=== PATIENT | female | born 1955 | race Caucasian/White ===

== ENCOUNTER → 2022-06-27 | Outpatient (CLI) | payer MEDICARE, OTHER, SELFPAY ==
--- NOTE | 2022-06-27 16:51 | CT_ITS ---
STUDY: LOW DOSE CT LUNG CANCER SCREENING REASON FOR EXAM: Female, 66 years old. HX OF NICOTINE DEPENDENCE -- GAVE PT ORDER TO HOLD ON TO. The patient smoked 1 pack per day for 46 years. COPD. RADIATION DOSAGE (If Supplied By Facility): CTDIvol = ( 1.59 ) mGy, DLP = ( 50.23 ) mGycm TECHNIQUE: No contrast was administered. Low dose technique was utilized (average mAS-38 and kVp 120). 1.25 mm axial source images with a slice interval of 1.25-mm were reconstructed in lung windows. 2.5 mm axial source images with a slice interval of 2.5-mm were reconstructed in lung windows. 5.0 mm axial source images with a slice interval of 5.0-mm were reconstructed in soft tissue windows. COMPARISON: None. NODULES: No suspicious nodules are seen. Emphysema: Hyperinflation. Emphysematous changes more pronounced in the upper lobes. Endobronchial lesion: None Aorta: Atherosclerotic plaque formation of the aorta. CORONARY ARTERIES: Coronary artery calcification is seen. Heart: Unremarkable Pulmonary artery: Unremarkable Mediastinal nodes: Small mediastinal lymph nodes. Other chest and abdominal findings: Unremarkable. CT/Low Dose CT Lung Screening IMPRESSION: Lung-RADS category 2 - Continue annual screening with LDCT in 12 months. IMPORTANT NOTES FOR USE: ACR Lung-RADS Version 1.1 Assessment Categories Release Date: 2018 Category: Coded 0-4 bases on nodule(s) with highest degree of suspicion. Negative screen is defined as categories 1 and 2; a positive screen is defined as categories 3 and 4. Category 3 and 4A nodules that are unchanged on interval CT should be coded as category 2, and individuals returned to screening in 12 months. Category 4X: Category 3 or 4 nodules with additional imaging findings that increase the suspicion of lung cancer, such as spiculation, GGN that doubles in size in 1 year, enlarged lymph notes, etc. Category Modifiers: S (significant finding unrelated to lung cancer) Electronically Signed: Dixon Garcia MD at 11:04 EDT ,
== END | disposition home or self-care (01) ==
LOC: CT 16:49
PROVIDERS: PCP Family Medicine Geriatric Medicine; Visit Provider Internal Medicine Pulmonary Disease
DX: Z87.891 Personal history of nicotine dependence (principal)
CPT/HCPCS: 71271

== ENCOUNTER → 2022-07-28 | Outpatient (CLI) | payer MEDICARE, OTHER, SELFPAY ==
--- NOTE | 2022-07-28 12:45 | STE_ITS ---
Reason For Study: DYSPNEA Stress Results Protocol: [place] Protocol Maximum Predicted HR: 154 bpm Target HR: 131 bpm % Maximum Predicted HR: 92 % DurationHeart Rate Stage (mm:ss) (bpm) BP Comment BASELINE 75 150/94 STAGE 1 3:00 118 140/88 A LITTLE SOB STAGE 2 2:00 142 172/100INCREASED SOB RECOVERY 100 144/96 Stress Duration: 5:00 mm:ss Maximum Stress HR: 142 bpm Baseline Echocardiogram Findings Stress Echo Wall motion Data Resting WM Intermediate WM Stress WM ECHO/Stress Test Echo w/o Contrast Interpretation Summary Exercise stress echo. 66-year-old lady with a history of dyspnea. Resting EKG demonstrates normal sinus rhythm with a rate of 78 bpm normal inter vals are noted. The resting blood pressure is 150/94 mmHg. The patient exercised according to regul ar [place]an protocol for total duration of 5 minutes patient completed 2 minutes into stage II of the Br uce protocol. The maximum heart rate attained was 142 bpm which was 92% of max impacted heart rat e the maximum workload was 7 metabolic equivalents. At rest there were no ST or T wave change s noted to suggest ischemia and at peak exercise upsloping ST changes were noted we did not meet t he criteria for ischemia. No clinical angina was noted the resting blood pressure was 178/82 mm Hg rate-pressure part was 24,200. Stress echocardiogram. The resting echocardiogram demonstrated preserved left v entricular systolic function estimated ejection fraction is 60%. With exercise there was thickening of all herrera and contraction of low ventricular cavity size and peaking of ejection fraction of approximately 75%. No wall motion abnormalities were noted. Conclusion: Exercise stress test with no EKG criteria for ischemia at a moderate workload. Resting and stress echocardiographic images demonstrating preserved ejection fr action and no ischemia noted. Ordering Physician: Miguel Sullivan V Performed By: Aydee Jim RDCS
[2022-07-28 14:35] LABS: Erythrocyte Sedimentation Rate 20 mm/hr (0-30)
[2022-07-28 15:15] LABS: CRP 4.09 mg/L (0.0-3.0); Rheumatoid Factor < 10.0 IU/mL (<15)
[2022-08-01 15:04] LABS: ANTINUCLEAR ANTIBODIES DIRECT Negative (Negative)
== END | disposition home or self-care (01) ==
LOC: CVS 12:43
PROVIDERS: PCP Family Medicine Geriatric Medicine; Visit Provider Internal Medicine Pulmonary Disease
DX: R06.00 Dyspnea, unspecified (principal); J44.9 Chronic obstructive pulmonary disease, unspecified
CPT/HCPCS: 36415; 85652; 86038; 86140; 86431; 93017; 93350

== ENCOUNTER 2022-11-07 12:05 | Emergency (ER) | payer MEDICARE, OTHER, SELFPAY ==
[2022-11-07 12:06] VITALS: BP 106/76; PULSE 100; RESP 20; TEMP 36.1; O2SAT 95
--- NOTE | 2022-11-07 13:22 | RAD_ITS ---
STUDY: X-RAY CHEST REASON FOR EXAM: Female, 66 years old. Cough, congestion, dyspnea, bilateral rales TECHNIQUE: PA and lateral views of the chest. COMPARISON: None. FINDINGS: EKG electrodes are seen. Hyperinflation. Increased markings at the left lung base with an area of confluence. This may represent either linear atelectasis and/or early infiltrate. There is blunting of the left costophrenic angle with mild degree of pleural thickening. Normal size heart. Normal mediastinum and lam. Normal visualized pulmonary arteries. There is atherosclerotic calcification of the aortic arch with tortuosity. There are diffuse degenerative changes of the visualized thoracic spine. Normal visualized ribs, clavicles, and shoulders. There is no demonstrated abnormality of the visualized soft tissue structures of the upper abdomen. RAD/Chest PA and Lateral IMPRESSION: Hyperinflation. Increased markings at the left lung base suggestive of atelectasis and/or early infiltrate. Electronically Signed: Dixon Garcia MD at 13:43 EST ,
[2022-11-07 13:25] VITALS: O2SAT 95
--- NOTE | 2022-11-07 13:34 | EX.ED.VIS.UR ---
HPI HPI - URI History of Present Illness Chief Complaint: Cough Detail of Chief Complaint: Cough evaluate for pneumonia Informant: patient Onset/Context/Timing Onset: Weeks (Onset of illness 2 weeks ago) Context: Sudden Onset Timing: Continuous and Waxes and wanes Quality: Cough, wheezing, dyspnea Location: Respiratory Current Severity: Mild Maximum Severity: Severe Worsened by: - (Increased dyspnea with activity); Not Worsened By Swallowing, Eating Solids or Drinking Liquids Relieved by: - (Nothing) Associated Symptoms Associated Symptoms: Positive for Nasal Congestion, Shortness of Breath and Productive Cough (Green-colored sputum); Negative for Headache, Sinus Pressure, Myalgias, Nausea, Vomiting, Diarrhea, Chest Pain, Nonproductive cough or Hemoptysis Narrative Narrative: Patient is a 66-year-old woman who was seen 2 weeks ago by 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 Miguel Sullivan. She was treated with prednisone. 1 week ago she was placed on antibiotic she states that white. She does not know the name of the medicine. Patient reports allergy to levofloxacin. Patient denies headache, sinus pressure, sore throat. She does endorse nasal congestion. She denies contact with anyone that is been ill. She denies ear pain, discharge from her ears or ringing or ears. She does report cough that is productive of yellow-colored sputum. She does endorse dyspnea, dyspnea on exertion. She denies orthopnea or PND. She denies chest discomfort. She denies history of VTE. She denies leg pain, swelling or discoloration. She denies GI symptoms. Prior similar symptoms: Yes Recent Illness/Hospitalization: Yes [facility] ED Constitutional Constitutional ED: Denies chills, fever(s), subjective, sweats or weight loss Eyes Eyes: Denies blurry vision, change in vision or diplopia ENT ENT ED: Reports rhinorrhea; Denies ear pain or sore throat Cardiovascular Cardiovascular: Denies chest pain, orthopnea, palpitations, paroxysmal nocturnal dyspnea or racing heartbeat Respiratory/Chest Respiratory/Chest: Reports cough, dyspnea, dyspnea on exertion and sputum; Denies orthopnea or paroxysmal nocturnal dyspnea Gastrointestinal Gastrointestinal: Denies abdominal pain, diarrhea, nausea or vomiting Genitourinary Genitourinary ED: Denies dysuria, hematuria or urinary frequency Musculoskeletal Musculoskeletal: Denies arthralgias, back pain, myalgias or neck pain Neurologic Neurologic: Denies headache(s), paresthesias or weakness Endocrine Endocrinology: Denies cold intolerance or heat intolerance Hematologic/Lymphatic Hematologic/Lymphatic: Denies easy bleeding or easy bruising PFSH [facility] Medical History COPD (chronic obstructive pulmonary disease) Home Medications doxycycline monohydrate 100 mg capsule 100 mg PO BID #10 CAPSULES 11/07/22 [Rx Last Taken Unknown] Allergy/AdvReac Type Severity Reaction Status Date / Time levofloxacin [From Levaquin] Allergy PT UNSURE Verified 11/07/22 12:09 OF REACTION Social History (Updated 11/07/22 @ 13:[address] Eric Dhillon MD) household members: spouse Smoking Status: Current every day smoker tobacco type: cigarettes substance use type: does not use EXAM Physical Exam Const Vital Signs: 11/07/22 12:06 11/07/22 13:25 Temperature 97.0 F L Temperature Source Temporal Pulse Rate 100 Respiratory Rate 20 H Respiratory Effort Short of Breath Respiratory Depth Normal Respiratory Pattern Normal Blood Pressure 106/76 Blood Pressure Mean 86 Pulse Ox 95 Oxygen Delivery Method Room Air Room Air Positive well nourished and well developed General Appearance ED: well developed and NAD; Negative for pallor HEENT Reports moist mucous membranes normocephalic and atraumatic Face and Sinus: Negative for sinus tenderness Throat: posterior oropharynx normal Eyes PERRL and EOMs intact bilaterally General Eye ED: Negative for pale conjunctiva or scleral icterus Neck no lymphadenopathy, supple, no meningeal signs and no JVD Neck Narrative: Trachea is midline. There inspiratory expiratory stridor. Resp normal respiratory effort and No clear to auscultation bilaterally Auscultation: rales bilateral lower Cardio S1 normal heart sound, S2 normal heart sound and no murmurs Rate: regular rate Rhythm: regular rhythm GI non-tender, non-distended and no masses Palpation: soft Back/Spine no CVA tenderness Cervical Spine: Negative for cervical spine tenderness Thoracic Spine / Upper Back: Negative for thoracic spinal tenderness Lumbar Spine / Lower Back: Negative for lumbar spinal tenderness Extremity normal to inspection Extremity Narrative: There is no asymmetry, swelling, discoloration, leg vein distention, palpable cords or tenderness along the distribution of the deep venous system. Neuro oriented x3, CN's II-XII intact bilaterally and no sensory deficits noted Sensorium / Orientation: alert Motor Exam: strength 5/5 throughout Psych mental status grossly normal Skin General Skin Exam: Negative for jaundice or pallor Lesions: no lesions Rashes: no rashes MDM MDM MDM Narrative Medical decision making narrative: Suspect patient has exacerbation of COPD/chronic bronchitis. Chest x-ray was obtained to evaluate for pneumonia. Presently she is not wheezing and reason aerosol treatments were not ordered. Will obtain rapid antigen for COVID and influenza. Also obtain CBC to assess white count and rule out anemia as a cause of her dyspnea. Basic metabolic panel to assess renal function and the event antibiotics are needed and dose adjustment as needed. Also to assess glucose and anion gap. Outside records were reviewed. Patient was seen approximate 2 weeks ago as well as 1 week ago by her tool radial drill press set up operator and treated with prednisone and antibiotic. Lab Data Attestation: I reviewed the patient's lab results. Lab results narrative: White count is elevated with mild shift. There is no bandemia. Lactate is elevated at 2.4 which may be due to inhaler use. Basic metabolic panel is remarked for slight elevation in creatinine to 1.11 with a GFR of 52. There is no evidence EMEA. Labs: Laboratory Results - last 24 hr 11/07/22 11/07/22 11/07/22 13:11 13:11 13:11 WBC 12.4 H RBC 5.07 Hgb 14.2 Hct 44.0 MCV 86.8 MCH 28.0 MCHC 32.3 RDW Std Deviation 45.6 H RDW Coeff of Jesus 14.4 Plt Count 459 H MPV 8.9 Immature Gran % (Auto) 1.800 H Neut % (Auto) 75.2 H Lymph % (Auto) 13.4 L [place] % (Auto) 7.4 Eos % (Auto) 1.4 Baso % (Auto) 0.8 Absolute Neuts (auto) 9.3 H Absolute Lymphs (auto) 1.67 Nucleated RBC % 0 Sodium 136 Potassium 3.7 Chloride 99 Carbon Dioxide 27.0 Anion Gap 10 BUN 22 H Creatinine 1.11 H Est GFR (MDRD) Af Amer 63 Est GFR (MDRD) Non-Af 52 L BUN/Creatinine Ratio 19.8 Glucose 120 H Lactic Acid 2.4 H* Calcium 9.9 Radiography Diagnostic Testing: Clinical Impression(s) from Imaging Studies Chest X-Ray 11/07/22 13:22 IMPRESSION: Hyperinflation. Increased markings at the left lung base suggestive of atelectasis and/or early infiltrate. Electronically Signed: Dixon Garcia MD at 13:43 EST , 2 view chest x-ray reveals atelectasis. There is no infiltrate or effusion noted. There are chronic changes noted. Cardiac silhouette and size unremarkable. Perihilar region unremarkable. Osseous structures unremarkable. This was independently reviewed interpreted by me. Rhythm Strip Rhythm Strip: Sinus Rhythm Rate: 97 Ectopy: None Treatment and Re-Evaluation Narrative: Patient was informed of results and plan. She is agreeable. Discharge Plan Triage Chief Complaint: Cough ED Provider: Eric Dhillon Dx/Rx/DC Orders Clinical Impression: Acute exacerbation of chronic bronchitis, Acute exacerbation of chronic obstructive pulmonary disease, Dyspnea Instructions: ED COPD Flare Prescriptions: New doxycycline monohydrate 100 mg capsule 100 mg PO BID Qty: 10 0RF Primary Care Provider: Dat Dee Referrals: Dat Dee MD [Primary Care Provider] - Miguel Sullivan MD [Med Staff - Active Staff] - 1 Week if not improving Disposition Disposition: Home, Self Care
[2022-11-07 13:43] LABS: Absolute Lymphocyte Count 1.67 X10^3/uL (0.83-4.51); Absolute Neutrophil Count 9.3 X10^3/uL (2.0-7.7); Basophil% 0.8 % (0-1); Eosinophil# 0.18 X10^3/uL; Eosinophils% 1.4 % (0-5); Hemoglobin 14.2 g/dL (12.0-15.0); Lymphocyte # 1.67 X10^3/ul (0.83-4.51); Lymphocyte % 13.4 % (19-41); Mean Corp Hgb Conc 32.3 g/dL (32-36); Mean Corpuscular Volume 86.8 fL (81-99); Mean Platelet Vol. 8.9 fl (6.2-12.0); Monocyte# 0.92 X10^3/uL; Monocyte% 7.4 % (0-10); NRBC Flagged by Analyzer 0 % (0-5); Neutrophil # 9.33 X10^3/uL (2.7-7.7); Neutrophil % 75.2 % (47-70); Platelet Count 459 K/mm3 (150-450); RBC Distribution Width CV 14.4 % (11.6-14.6); RBC Distribution Width SD 45.6 fl (35.1-43.9); Red Blood Count 5.07 M/mm3 (4.2-5.4); White Blood Count 12.4 K/mm3 (4.4-11.0)
[2022-11-07 13:48] LABS: Anion Gap 10 (5-15); BUN 22 mg/dL (7-18); BUN/Creat Ratio 19.8 RATIO (10-20); Calcium,Total 9.9 mg/dL (8.5-10.1); Chloride 99 mmol/L (98-107); Creatinine, Serum 1.11 mg/dL (0.55-1.02); EST Glomerular Filtration Rate 52 mL/min (>60); Est Glom Filt Rate - Afr Amer 63 mL/min (>60); Glucose 120 mg/dL (74-106); Potassium 3.7 mmol/L (3.5-5.1); Sodium Level 136 mmol/L (136-145)
[2022-11-07 13:58] LABS: Lactic Acid 2.4 mmol/L (0.4-1.9)
[2022-11-07] MEDS: Doxycycline 100 MG CAPSULE PO (14:48)
[2022-11-07 17:19] LABS: Reflex Lactate? Y
== END 2022-11-07 14:50 | disposition home or self-care (01) ==
PROVIDERS: Emergency Provider Emergency Medicine; PCP Family Medicine Geriatric Medicine; Visit Provider Emergency Medicine
DX: J20.9 Acute bronchitis, unspecified (principal); J44.1 Chronic obstructive pulmonary disease with (acute) exacerbation; F17.210 Nicotine dependence, cigarettes, uncomplicated; R06.00 Dyspnea, unspecified
CPT/HCPCS: 71046; 80048; 83605; 85025; 87428; 99284; A4216

== ENCOUNTER → 2023-04-14 | Outpatient (CLI) | payer MEDICARE, OTHER, SELFPAY ==
--- NOTE | 2023-04-05 09:55 | RAD_ITS ---
INDICATION: COPD EXAMINATION/TECHNIQUE: X-RAY - XR Chest 2 Views COMPARISON: PA and lateral chest x-ray November 07, 2022 FINDINGS: LINES/DEVICES: None. LUNGS: No consolidation, edema or effusion. Borderline hyperexpansion. No pneumothorax. MEDIASTINUM AND CARDIOVASCULAR STRUCTURES: Cardiac silhouette not enlarged. Central airways and mediastinal contour are unremarkable. BONES AND SOFT TISSUES: There are multilevel degenerative changes of the mid to lower thoracic and visualized upper lumbar spine with a persistent thoracolumbar levoscoliosis. RAD/Chest PA and Lateral IMPRESSION: No acute cardiopulmonary disease. Electronically Signed: Davy Espinoza MD at 10:14 EDT Reading Location ID and State: [id number] / Unknown , Service support ,
== END | disposition home or self-care (01) ==
PROVIDERS: PCP Family Medicine Geriatric Medicine; Referring Provider Internal Medicine Pulmonary Disease; Visit Provider Internal Medicine Pulmonary Disease
DX: J44.9 Chronic obstructive pulmonary disease, unspecified (principal)
CPT/HCPCS: 71046

== ENCOUNTER 2023-06-17 17:54 | Emergency (ER) | payer MEDICARE, OTHER, SELFPAY ==
[2023-06-17 17:55] VITALS: BP 135/94; PULSE 110; RESP 14; TEMP 36.6; O2SAT 98; BMI 23.2
--- NOTE | 2023-06-17 18:45 | CT_ITS ---
STUDY: CT ABDOMEN AND PELVIS WITH CONTRAST REASON FOR EXAM: Female, 67 years old. left lower quadrant pain RADIATION DOSAGE (If Supplied By Facility): CTDIvol = ( 10.45 ) mGy, DLP = ( 626.15 ) mGycm TECHNIQUE: Transaxial images were obtained from the dome of the diaphragm to the symphysis pubis without oral contrast. IV 75mL Isovue-370 was administered. Sagittal and coronal images were reconstructed. Individualized dose optimization techniques were used for this CT. COMPARISON: None. FINDINGS: Trace bilateral lower lobe atelectasis, otherwise clear lung bases. The visualized portions of the heart are within normal limits. Normal liver. Normal gallbladder and extrahepatic biliary system. Normal spleen. Normal pancreas. Normal bilateral adrenal glands. Normal right kidney. Normal left kidney. Normal visualized stomach. Normal small intestine. Diverticulosis throughout the colon, more so through the descending portion and sigmoid. Focal thickening of the wall through the posterior sigmoid with surrounding stranding in the area of diverticulitis suggests focal diverticulitis. Extension into the rectosigmoid noted. Differential diagnosis includes distal focal colitis. Inflammatory neoplasm cannot be entirely excluded. The appendix is visualized and appears normal. Atherosclerosis of aorta. Aneurysmal dilatation of the infrarenal aorta, aorta measuring approximately 3.2 x 3.3 cm in maximum dimension. Normal inferior vena cava. Normal retroperitoneum. Normal urinary bladder. Normal abdominal wall. Advanced degenerative disease of the lumbar spine with mild scoliosis, convexity to the left. Moderate to severe degenerative arthrosis of the right hip. Mild degenerative disease of the left hip. CT/Abdomen/Pelvis W IV Cont ONLY IMPRESSION: Findings most compatible with distal sigmoid diverticulitis. Differential diagnosis includes distal colitis. Cannot exclude inflammatory neoplasm, recommend follow-up with colonoscopy following treatment and resolution of symptoms. No acute appendicitis. No bowel obstruction. Unremarkable abdominal viscera. Intrarenal abdominal aortic aneurysm measuring up to 3.3 cm. Electronically Signed: Sallie Arredondo MD at 19:51 EDT ,
--- NOTE | 2023-06-17 18:50 | EDS_ITS ---
<Statement entered by Thelma Jacques MD - 06/18/23 00:27> I have personally performed a face to face assessment of the patient and have reviewed the NORA Note. Patient presents secondary to left lower quadrant juan pablo pain. She did have a recent outbreak of shingles but left lower quadrant abdominal pain has been persistent and she is concerned there is something further going on. She does report some slight constipation. No fever or chills. Her last colonoscopy was about 5 years ago and she does have diverticulosis noted. Patient lying in bed no acute distress. Head and neck examination unremarkable. Heart is regular rate and rhythm. Lung sounds are clear. Abdomen is soft with mild tenderness in the lower abdomen, worse in the left. No guarding or rebound. Lab work is reviewed and does reveal mild leukocytosis. CT scan confirms evidence of diverticulitis. No evidence of abscess or perforation. She will be treated with a course of Augmentin as well as analgesics. Return instructions were provided. Patient comfortable with the plan. HPI HPI - GI History of Present Illness Chief Complaint: Abd Pain Narrative Narrative: Presenting today due to left lower quadrant abdominal pain that she has had since last . She reports that she broke out in a vesicular-like rash to the mid- left side of her lower back when the abdominal pain started, she has seen her PCP for this who told her it is reoccurring shingles and has offered acyclovir for her but she does not tolerate this medication well. She reports that she did have a colonoscopy a few years ago that showed diverticulosis but has never had diverticulitis but did some searching on the Internet and is concerned that she could have diverticulitis at this time. She has not had any fever, chills, vomiting, diarrhea, or urinary symptoms. She reports that she has been constipated aside from small stools over this past week and nauseous. She denies any prior abdominal surgery. [facility] Medical History COPD (chronic obstructive pulmonary disease) Home Medications doxycycline monohydrate 100 mg capsule 100 mg PO BID #10 CAPSULES 11/07/22 [Rx Last Taken Unknown] amoxicillin 875 mg-potassium clavulanate 125 mg tablet 1 tab PO BID 10 days #19 tabs 06/17/23 [Rx Last Taken Unknown] hydrocodone-acetaminophen 5-325mg 5mg-325mg 1 tab PO Q6H 3 days #12 tabs 06/17/23 [Rx Last Taken Unknown] Allergy/AdvReac Type Severity Reaction Status Date / Time levofloxacin [From Levaquin] Allergy PT UNSURE Verified 06/17/23 17:55 OF REACTION Social History household members: spouse Smoking Status: Current every day smoker tobacco type: cigarettes substance use type: does not use ROS ROS ED Constitutional Constitutional ED: Denies chills or fever(s) Cardiovascular Cardiovascular: Denies chest pain Respiratory/Chest Respiratory/Chest: Denies cough or dyspnea Gastrointestinal Gastrointestinal: Reports abdominal pain, constipation and nausea; Denies diarrhea or vomiting Genitourinary Genitourinary ED: Denies dysuria, hematuria or urinary frequency Musculoskeletal Musculoskeletal: Denies arthralgias or myalgias Integumentary Reports rash Neurologic Neurologic: Denies weakness EXAM Physical Exam Const Vital Signs: 06/17/23 17:55 Temperature 97.8 F Temperature Source Temporal Pulse Rate 110 H Respiratory Rate 14 Blood Pressure 135/94 H Blood Pressure Mean 107 Pulse Ox 98 Oxygen Delivery Method Room Air Positive well nourished, well developed and no apparent distress General Appearance ED: well developed HEENT Reports normocephalic and head/scalp atraumatic Mouth ED: Yes moist mucous membranes normal Eyes PERRL and EOMs intact bilaterally Neck full ROM and supple Chest Wall inspection of chest normal Resp normal respiratory effort and clear to auscultation bilaterally Cardio regular rate and regular rhythm GI soft to palpation, non-distended and no masses GI Narrative: Left lower quadrant tenderness to palpation, no rigidity, guarding, or peritoneal signs. Back/Spine normal ROM and normal to inspection Extremity normal to inspection and full ROM Neuro oriented x3, CN's II-XII intact bilaterally, moves all extremities, no focal motor deficits and no sensory deficits noted Sensorium / Orientation: awake and alert Psych mental status grossly normal and thought process normal Skin no wounds Skin Narrative: Small erythemic macular rash to the mid to left back, no fluctuance, warmth, or signs of infection MDM MDM MDM Narrative Medical decision making narrative: Patient presenting today due to left lower quadrant abdominal pain she has had since last . History of diverticulosis, she is never had diverticulitis. History of shingles and did break out in a vesicular type rash last to her lower back that has now crusted over. Her PCP offered her antivirals but she reports that she does not tolerate these well. Her abdomen is tender in the left lower quadrant, she is little bit tachycardic but nontoxic-appearing and afebrile. Labs obtained to rule out leukocytosis, anemia, electrolyte abnormality, UTI, LANE, and hepatobiliary etiology. CT of the abdomen and pelvis obtained to rule out diverticulitis, bowel obstruction, and other abdominal etiology. She was given IV Zofran, morphine, and Toradol. Patient does have diverticulitis, she has an elevated WBC, started on Augmentin with first dose here. She will be given a prescription for [place] as well and is to follow-up with her PCP. CT did show an incidental AAA at 3.3 centimeters, patient is aware of this finding. She has been given return instructions. Lab Data Attestation: I reviewed the patient's lab results. Labs: Laboratory Results - last 24 hr 06/17/23 18:45 WBC 12.3 H RBC 4.71 Hgb 13.8 Hct 41.0 MCV 87.0 MCH 29.3 MCHC 33.7 RDW Std Deviation 48.4 H RDW Coeff of Jesus 15.1 H Plt Count 418 MPV 9.0 Immature Gran % (Auto) 1.100 H Neut % (Auto) 76.2 H Lymph % (Auto) 10.7 L [place] % (Auto) 10.4 H Eos % (Auto) 1.0 Baso % (Auto) 0.6 Absolute Neuts (auto) 9.4 H Absolute Lymphs (auto) 1.31 Nucleated RBC % 0 Sodium 133 L Potassium 3.7 Chloride 102 Carbon Dioxide 27.0 Anion Gap 4 L BUN 9 Creatinine 0.69 Estim Creat Clear Calc 47.14 Est GFR (MDRD) Af Amer 109 Est GFR (MDRD) Non-Af 90 BUN/Creatinine Ratio 13.0 Glucose 114 H Calcium 9.2 Total Bilirubin 0.50 AST 12 L ALT 19 Alkaline Phosphatase 74 Total Protein 7.4 Albumin 2.8 L Globulin 4.6 H Albumin/Globulin Ratio 0.6 L Lipase 14 Radiography Diagnostic Testing: Clinical Impression(s) from Imaging Studies Abdomen/Pelvis CT 06/17/23 18:45 IMPRESSION: Findings most compatible with distal sigmoid diverticulitis. Differential diagnosis includes distal colitis. Cannot exclude inflammatory neoplasm, recommend follow-up with colonoscopy following treatment and resolution of symptoms. No acute appendicitis. No bowel obstruction. Unremarkable abdominal viscera. Intrarenal abdominal aortic aneurysm measuring up to 3.3 cm. Electronically Signed: Sallie Arredondo MD at 19:51 EDT , Discharge Plan Triage Chief Complaint: Abd Pain ED Midlevel Provider: Ammy Arenas ED Provider: Thelma Jacques Dx/Rx/DC Orders Clinical Impression: Diverticulitis Instructions: Diverticulitis Dc Prescriptions: New hydrocodone-acetaminophen 5-325 mg tablet 1 tab PO Q6H 3 Days Qty: 12 0RF amoxicillin-pot clavulanate 875-125 mg tablet 1 tab PO BID 10 Days Qty: 19 0RF No Action doxycycline monohydrate 100 mg capsule 100 mg PO BID Qty: 10 0RF Primary Care Provider: Dat Dee Referrals: Dat Dee MD [Primary Care Provider] - 5-7 Days Activity Restrictions/Additional Instructions: Please follow-up with your PCP as you may need to schedule for a colonoscopy. Return for any worsening of your symptoms. Disposition Disposition: Home, Self Care
[2023-06-17] MEDS: Ketorolac 15 MG/ML Vial IV (18:55)
[2023-06-17] MEDS: Ondansetron 4 MG/2 ML Vial IV (18:55)
[2023-06-17 18:59] LABS: Absolute Lymphocyte Count 1.31 X10^3/uL (0.83-4.51); Absolute Neutrophil Count 9.4 X10^3/uL (2.0-7.7); Basophil# 0.07 X10^3/uL; Basophil% 0.6 % (0-1); Eosinophil# 0.12 X10^3/uL; Hemoglobin 13.8 g/dL (12.0-15.0); Lymphocyte # 1.31 X10^3/ul (0.83-4.51); Lymphocyte % 10.7 % (19-41); Mean Corp Hgb Conc 33.7 g/dL (32-36); Mean Corpuscular Hgb 29.3 pg (27.0-32.0); Monocyte# 1.28 X10^3/uL; Monocyte% 10.4 % (0-10); NRBC Flagged by Analyzer 0 % (0-5); Neutrophil # 9.38 X10^3/uL (2.7-7.7); Neutrophil % 76.2 % (47-70); Platelet Count 418 K/mm3 (150-450); RBC Distribution Width CV 15.1 % (11.6-14.6); RBC Distribution Width SD 48.4 fl (35.1-43.9); Red Blood Count 4.71 M/mm3 (4.2-5.4); White Blood Count 12.3 K/mm3 (4.4-11.0)
[2023-06-17 19:19] LABS: ALB/GLOB Ratio 0.6 RATIO (0.9-2.4); AST(SGOT) 12 U/L (15-37); Alanine Aminotransfer ALT/SGPT 19 U/L (13-56); Albumin, Serum 2.8 g/dL (3.2-5.0); Alkaline Phosphatase 74 U/L (45-117); Anion Gap 4 (5-15); BUN 9 mg/dL (7-18); Calcium,Total 9.2 mg/dL (8.5-10.1); Chloride 102 mmol/L (98-107); Creatinine, Serum 0.69 mg/dL (0.55-1.02); EST Glomerular Filtration Rate 90 mL/min (>60); Est Glom Filt Rate - Afr Amer 109 mL/min (>60); Estimated Creatinine Clearance 47.14 ml/min; Globulin 4.6 g/dL (2.2-4.2); Glucose 114 mg/dL (74-106); Lipase 14 U/L (13-75); Potassium 3.7 mmol/L (3.5-5.1); Protein, Total 7.4 g/dL (6.4-8.2); Sodium Level 133 mmol/L (136-145)
[2023-06-17 20:23] VITALS: BP 117/79; PULSE 90; RESP 15; O2SAT 97
[2023-06-17] MEDS: Amox/Clavulanate 875 MG Tablet PO (20:29)
[2023-06-17] MEDS: Morphine 4 MG/ML Syringe IV (20:33)
== END 2023-06-17 20:40 | disposition home or self-care (01) ==
PROVIDERS: Emergency Provider Emergency Medicine; PCP Family Medicine Geriatric Medicine; Visit Provider Emergency Medicine
DX: K57.92 Diverticulitis of intestine, part unspecified, without perforation or abscess without bleeding (principal); F17.210 Nicotine dependence, cigarettes, uncomplicated
CPT/HCPCS: 74177; 80053; 83690; 85025; 96374; 96375; 99283; Q9967; A4216; J2405

== ENCOUNTER → 2024-07-13 | Outpatient (CLI) | payer MEDICARE, OTHER, SELFPAY ==
--- NOTE | 2024-07-13 09:55 | RAD_ITS ---
STUDY: XR Chest 2 Views 07/13/2024 9:53 AM REASON FOR EXAM: Female, 68 years old. COPD COMPARISON: 04/05/2023 TECHNIQUE: XR Chest 2 Views FINDINGS: There is no demonstrated pleural abnormality. Normal heart size. Normal mediastinum. Normal lam. Prominent appearing increased interstitial lung markings. Normal visualized pulmonary arteries. There is atherosclerotic calcification of the aortic arch with tortuosity. There are diffuse degenerative changes of the visualized thoracic spine. There is degenerative osteoarthritis of the bilateral shoulders. There are no acute findings of the upper abdomen. RAD/Chest PA and Lateral IMPRESSION: There are no acute findings. Electronically Signed: Erick Ledesma MD at 14:32 EDT ,
--- OUTSIDE RECORDS SUMMARY | 2024-07-13 09:58 | XMS RPT_ITS ---
Intervals [place] Rate: 109 P: 76 NM: 160 QRS: 50 QRSD: 62 T: 51 QT: 324 QTc: 437 Interpretive Statements SINUS TACHYCARDIA Normal axis Normal intervals Normal transition Compared to ECG 07/17/2020 10:57:13 No significant changes Electronically Signed On 10-15-2021 10:49:54 EST by Deja Gordon [facility] CARDIOLOGY Deja Gordon MD - 10/15/2021 [facility] Test Date: 2021-10-15 Pat Name: PRISCILA CHA Department: 2AED Room: 33 Gender: F Media Manager: LILO : 1955 Requested By: NYDIA VERMA Order Number: [id number] Reading MD: Deja Gordon Measurements Intervals [place] Rate: 109 P: 76 NM: 160 QRS: 50 QRSD: 62 T: 51 QT: 324 QTc: 437 Interpretive Statements SINUS TACHYCARDIA Normal axis Normal intervals Normal transition Compared to ECG 07/17/2020 10:57:13 No significant changes Electronically Signed On 10-15-2021 10:49:54 EST by Deja Gordon [facility] Work Phone: EKG 12 Lead - Chest PainOrde red By: Deja Gordon on 10-15-2021 [facility] Work Phone: Hemogram (CBC) w/Auto Diffon 10-15-2021 Hematocrit (Bld) [Volume fraction] 39.9 % 35.0 - 47.0 % [facility] Hemoglobin.gastrointest inal spec 1 Ql (Stl) 13.0 g/dL 11.7 - 16.0 g/dL [facility] Interpretation and review of laboratory results Abnormal [facility] MCH (RBC) [Entitic mass] 28.5 pg 26.0 - 34.0 pg [facility] MCHC (RBC) [Mass/Vol] 32.6 % 32.0 - 36.0 % [facility] MCV (RBC) [Entitic vol] 87.6 fL 79.0 - 98.0 fL [facility] Platelet distribution width (Bld) [Ratio] 14.9 % High 11.5 - 14.5 % [facility] Platelet mean volume (Bld) [Entitic vol] 7.5 fL 7.4 - 10.4 fL [facility] Platelets (Bld) [#/Vol] 374 10*3/uL 140 - 440 10*3/uL [facility] RBC (Bld) [#/Vol] 4.56 10*6/uL 3.80 - 5.2 0 10*6/uL [facility] WBC (Bld) [#/Vol] 16.1 10*3/uL High 3.6 - 10.7 10*3/uL [facility] Test Performed by [facility], [address] [place] [address] [facility] Hemogram w/ Autodiffon 10-15 Erythrocyte distribution width (RBC) [Ratio] 14.9 % High 11.5-14.5 [facility] Comment on above: Performed By: #### B GLU #### [facility] [address] [place] [address] Hematocrit (Bld) [Volume fraction] 39.9 % Normal 35.0-47.0 [facility] Comment on above: Performed By: #### B GLU #### [facility] [address] [place] [address] Hemoglobin (Bld) [Mass/Vol] 13.0 g/dL Normal 11.7-16.0 [facility] Comment on above: Performed By: #### B GLU #### [facility] [address] [place] [address] MCH (RBC) [Entitic mass] 28.5 pg Normal 26.0-34.0 [facility] Comment on above: Performed By: #### B GLU #### [facility] [address] [place] [address] MCHC 32.6 % Normal 32.0-36.0 [facility] Comment on above: Performed By: #### B GLU #### [facility] [address] [place] [address] MCV (RBC) [Entitic vol] 87.6 fL Normal 79.0-98.0 [facility] Comment on above: Performed By: #### B GLU #### [facility] [address] [place] [address] Platelet mean volume (Bld) [Entitic vol] 7.5 fL Normal 7.4-10.4 [facility] Comment on above: Performed By: #### B GLU #### [facility] [address] [place] [address] Platelets (Bld) [#/Vol] 374 10*3/uL Normal 140-440 [facility] Comment on above: Performed By: #### B GLU #### [facility] [address] [place] [address] RBC (Bld) [#/Vol] 4.56 10*6/uL Normal 3.80-5.20 [facility] Comment on above: Performed By: #### B GLU #### [facility] [address] [place] [address] WBC (Bld) [#/Vol] 16.1 10*3/uL High 3.6-10.7 [facility] Comment on above: Performed By: #### B GLU #### [facility] [address] [place] [address] Lactic Acidon 10-15-2021 Lactate [Moles/Vol] 0.9 mmol/L Normal 0.7-2.0 [facility] Comment on above: Performed By: #### B GLU #### [facility] [address] [place] [address] Lactic Acid, Plasmaon 2021 Lactate [Moles/Vol] 0.9 mmol/L 0.7 - 2. 0 mmol/L [facility] Lipaseon 10-15-2021 Lipase [Catalytic activity/Vol] 20 U/L Low 23-300 [facility] Comment on above: Performed By: #### B GLU #### [facility] [address] [place] [address] Lipase [Catalytic activity/Vol] 20 U/L Low 23 - 300 U/L [facility] MRI BRAIN W WO CONTRASTon Radiology Study observation (narrative) [facility] Work Phone: Manual Diffon 10-15-2021 Abs Eosin Cnt 0.2 10*3/uL Normal 0.0-0.5 [facility] Comment on above: Performed By: #### B FRP2 #### [facility] [address], [place] Abs Lymph Cnt 0.8 10*3/uL Low 1.1-4.5 [facility] Comment on above: Performed By: #### B FRP2 #### [place] [address] [address] [place], [place] Abs Monocyte Cnt 1.0 10*3/uL Normal 0.2-1.1 [facility] Comment on above: Performed By: #### B FRP2 #### [place] [address] [address] [place], [place] Abs Neutrophile Cnt 14.2 10*3/uL High 2.2-8.2 [facility] Comment on above: Performed By: #### B FRP2 #### [place] [address] [address] [place], [place] Anisocytosis Slight Normal [facility] Comment on above: Performed By: #### B FRP2 #### [place] [address] [address] [place], [place] Eosinophils 1 % Normal 1-6 [facility] Comment on above: Performed By: #### B FRP2 #### [place] [address] [address] [place], [place] Lymphocytes 5 % Low 20-40 [facility] Comment on above: Performed By: #### B FRP2 #### [place] [address] [address] [place], [place] Monocytes 6 % Normal 2-10 [facility] Comment on above: Performed By: #### B FRP2 #### [place] [address] [address] [place], [place] RBC Morphology ABNORMAL Normal [facility] Comment on above: Performed By: #### B FRP2 #### [place] [address] [address] [place], [place] Seg Neutrophils 88 % High 40-80 [facility] Comment on above: Performed By: #### B FRP2 #### [place] [address] [address] [place], [place] Abs Baso Cnt 0.0 10*3/uL Normal 0.0-0.2 [facility] Comment on above: Performed By: #### B FRP2 #### [facility] [address] [place] [address] Bands 0 % Normal 0-3 [facility] Comment on above: Performed By: #### B FRP2 #### [facility] [address] [place] [address] Basophils 0 % Normal 0-2 [facility] Comment on above: Performed By: #### B FRP2 #### [facility] [address] [place] [address] Cells counted 100 Normal [facility] Comment on above: Performed By: #### B FRP2 #### [facility] [address] [place] [address] Manual Differentialon 2021 Absolute Baso # 0.0 10*3/uL 0.0 - 0.2 10*3/uL [facility] Absolute Eos # 0.2 10*3/uL 0.0 - 0.5 10*3/uL [facility] Absolute Lymph # 0.8 10*3/uL Low 1.1 - 4.5 10*3/uL [facility] Absolute Ciales # 1.0 10*3/uL 0.2 - 1.1 10*3/uL [facility] Absolute Neut # 14.2 10*3/uL High 2.2 - 8.2 10*3/uL [facility] Anisocytosis Slight [facility] Bands 0 % 0 - 3 % [facility] Basophils/100 WBC (Bld) 0 % 0 - 2 % [facility] Eosinophils/100 WBC (Bld) 1 % 1 - 6 % [facility] Interpretation and review of laboratory results Abnormal [facility] Lymphocytes/100 WBC (Bld) 5 % Low 20 - 40 % [facility] Monocytes/100 WBC (Bld) 6 % 2 - 10 % [facility] RBC (Bld) [#/Vol] ABNORMAL [facility] Seg Neutrophils 88 % High 40 - 80 % [facility] TOTAL CELLS COUNTED 100 [facility] Test Performed by [facility], [address] LAB [facility] No Panel Informationon 10-15 Interpretation and review of laboratory results Abnormal [facility] Test Performed by [facility], [address], [address] LAB [facility] Radiology Study observation (narrative) [facility] Work Phone: Troponin Ion 10-15-2021 Troponin I.cardiac [Mass/Vol] ng/mL Normal 0.000-0.034 [facility] Comment on above: Result Comment: . Performed By: #### B FRP2 #### [facility] [address] [place] [address] Troponin x1on 10-15-2021 Troponin I.cardiac [Mass/Vol] ng/mL 0.000 - 0.034 ng/mL [facility] Comment on above: . Test Performed by [facility], [address], [address] LAB [facility] Urinalysison 10-15-2021 Appearance (U) Clear Clear NA [facility] Comment on above: . Bilirubin Urine Negative Negative mg/dL [facility] Comment on above: . Color (U) Yellow Lt. Yellow NA [facility] Comment on above: . Glucose, Ur Normal Normal (<70) mg/dL [facility] Comment on above: . Interpretation and review of laboratory results Abnormal [facility] Ketones Ql (U) Negative Negative mg/dL [facility] Comment on above: . LEUKOCYTES, UA Negative Negative Lauro/uL [facility] Comment on above: . Nitrite, Urine Negative Negative NA [facility] Comment on above: . Occult Blood,Urine Negative Negative mg/dL [facility] Comment on above: . pH (U) 6.5 [pH] [facility] Comment on above: . Specific [place], Urine >1.030 Abnormal [facility] Comment on above: . Total Protein, Urine Negative Negativ e mg/dL [facility] Comment on above: . Urobilinogen, Urine Normal Normal (0-1) mg/dL [facility] Comment on above: . Test Performed by [facility], [address], [address] LAB [facility] MRI CERVICAL SPINE WO CONTRA STOrdered By: Wesley Lopez on 05-15-2021 Patient Name: PRISCILA CHA Magnetic Resonance Imaging ACCESSION EXAM DATE/TIME PROCEDURE ORDERING PROVIDER [id number] 05/15/2021 08:28 EDT MRI Spine Cervical w/o WESLEY LOPEZ Contrast CPT code 80429 Reason For Exam (MRI Spine Cervical w/o Contrast) pain Report Examination: MRI cervical spine Clinical Indication: pain Comparison: X-ray 04/10/2021 Findings: Multiplanar multisequence high field MRI images were obtained through the cervical spine without intravenous gadolinium. The cervical spine demonstrates mild kyphosis centered at a four. There is 3 mm degenerative retrolisthesis C5-C6 and C6-C7. Moderate disc height loss C5-C6 and C6-C7. The cervical spine demonstrates grossly normal signal intensity. Vertebral heights demonstrate minimal loss C5 and C6. No evidence of acute compression. There is trace amount of central increased T2 signal C5-C6 that likely represents mild myelomalacia. Craniocervical and atlantoaxial articulations are within normal limits. C2-C3: Tiny right lateral recess disc bulge with uncovertebral hypertrophy. Minimal right-sided spinal canal and [id number] neuroforaminal narrowing. C3-C4: Right-sided uncovertebral hypertrophy. No significant spinal canal stenosis. Minimal right neuroforaminal narrowing. C4-C5: Small broad-based posterior disc bulge with uncovertebral and facet hypertrophy. Disc mildly compresses, flattens the ventral cord. Mild spinal canal stenosis. Moderate neuroforaminal narrowing. C5-C6: Circumferential disc osteophyte complex which moderately compresses the cord. There is mild ligamentum flavum thickening also flattening the posterior cord. Moderate to severe spinal canal and moderate to severe foraminal narrowing. There is some facet degenerative hypertrophy. C6-C7: Circumferential disc bulge along with some ligamentum flavum hypertrophy. There is moderate cord compression and a moderate to severe spinal canal and foraminal stenosis. C7-T1: No evidence of disc bulge or protrusion. No spinal canal stenosis. No Magnetic Resonance Imaging Report neuroforaminal narrowing. Impression: Moderate discogenic degenerative changes and mild retrolisthesis C5-C6 and C6-C7 with broad-based disc bulges and endplate degenerative hypertrophy. Findings cause some cord compression which is moderate in severity C5-C6 and C6-C7 along with moderate to severe spinal canal stenosis C5-C6 and C6-C7. Also suggestion of mild myelomalacia in the C5-C6 region. Moderate to severe neuroforaminal narrowing C5-C6 and C6-C7. Report Dictated on --- Final --- Dictating Physician: MD MARTINEZ ANTHONY J Signed Date and Time: 05/15/2021 8:43 am Signed by: MD MARTINEZ ANTHONY J Transcribed Date and Time: 05/15/2021 8:44 [facility] Work Phone: Geo, [facility] Incoming Radiology Results From [facility] - 05/15/2021 8:44 AM EDT [facility]: [id number] ACCESSION EXAM DATE/TIME PROCEDURE ORDERING PROVIDER [id number] 05/15/2021 08:28 EDT MRI Spine Cervical w/o WESLEY LOPEZ Contrast CPT code 36581 Reason For Exam (MRI Spine Cervical w/o Contrast) pain Report Examination: MRI cervical spine Clinical Indication: pain Comparison: X-ray 04/10/2021 Findings: Multiplanar multisequence high field MRI images were obtained through the cervical spine without intravenous gadolinium. The cervical spine demonstrates mild kyphosis centered at a four. There is 3 mm degenerative retrolisthesis C5-C6 and C6-C7. Moderate disc height loss C5-C6 and C6-C7. The cervical spine demonstrates grossly normal signal intensity. Vertebral heights demonstrate minimal loss C5 and C6. No evidence of acute compression. There is trace amount of central increased T2 signal C5-C6 that likely represents mild myelomalacia. Craniocervical and atlantoaxial articulations are within normal limits. C2-C3: Tiny right lateral recess disc bulge with uncovertebral hypertrophy. Minimal right-sided spinal canal and [id number]-ja-oscnmidz neuroforaminal narrowing. C3-C4: Right-sided uncovertebral hypertrophy. No significant spinal canal stenosis. Minimal right neuroforaminal narrowing. C4-C5: Small broad-based posterior disc bulge with uncovertebral and facet hypertrophy. Disc mildly compresses, flattens the ventral cord. Mild spinal canal stenosis. Moderate neuroforaminal narrowing. C5-C6: Circumferential disc osteophyte complex which moderately compresses the cord. There is mild ligamentum flavum thickening also flattening the posterior cord. Moderate to severe spinal canal and moderate to severe foraminal narrowing. There is some facet degenerative hypertrophy. C6-C7: Circumferential disc bulge along with some ligamentum flavum hypertrophy. There is moderate cord compression and a moderate to severe spinal canal and foraminal stenosis. C7-T1: No evidence of disc bulge or protrusion. No spinal canal stenosis. No Magnetic Resonance Imaging Report neuroforaminal narrowing. Impression: Moderate discogenic degenerative changes and mild retrolisthesis C5-C6 and C6-C7 with broad-based disc bulges and endplate degenerative hypertrophy. Findings cause some cord compression which is moderate in severity C5-C6 and C6-C7 along with moderate to severe spinal canal stenosis C5-C6 and C6-C7. Also suggestion of mild myelomalacia in the C5-C6 region. Moderate to severe neuroforaminal narrowing C5-C6 and C6-C7. Report Dictated on --- Final --- Dictating Physician: MD MARTINEZ ANTHONY J Signed Date and Time: 05/15/2021 8:43 am Signed by: MD MARTINEZ ANTHONY J Transcribed Date and Time: 05/15/2021 8:44 [facility] Work Phone: [facility] Work Phone: XR CERVICAL SPINE (2-3 VIEWS )Ordered By: Nathaly Espinoza on 04-10-2021 Patient Name: PRISCILA CHA Diagnostic Radiology ACCESSION EXAM DATE/TIME PROCEDURE ORDERING PROVIDER [id number] 04/10/2021 12:43 EDT CR Spine Cervical 2 or 3 ISIAH ESPINOZA AMY L Views CPT code 19181 Reason For Exam (CR Spine Cervical 2 or 3 Views) Radiculopathy Report LEFT SHOULDER: CLINICAL INDICATION: Pain. TECHNIQUE: AP, Grashey and axillary COMPARISON: None. FINDINGS: There is no evidence for fracture or dislocation. The glenohumeral and acromioclavicular joints are unremarkable. No bone lesion is identified. There is no soft tissue abnormality. IMPRESSION: Normal left shoulder. CERVICAL SPINE: CLINICAL INDICATION: Neck pain. TECHNIQUE: AP, lateral and open mouth COMPARISON: None FINDINGS: No fracture is noted. There is smooth reversal of normal lordosis centered at C5. Spurring and disc space narrowing is noted particularly at C5-C6 and C6-C7 with posterior spondylotic protrusion projecting into the canal. There is additional spurring about the remaining vertebral bodies. Spurring is noted about the uncovertebral joints at C4-C5, C5-C6 and C6-C7. The retropharyngeal and retrotracheal soft tissues are unremarkable. IMPRESSION: Cervical spondylosis including posterior spondylotic protrusions at C5-C6 and C6-C7. Diagnostic Radiology Report Report Dictated on Workstation: [employer] --- Final --- Dictating Physician: MD YOUNG JEFFREY Signed Date and Time: 04/10/2021 1:04 pm Signed by: MD YOUNG JEFFREY Transcribed Date and Time: 04/10/2021 1:05 [facility] Work Phone: Geo, [facility] Incoming Radiology Results From [facility] - 04/10/2021 1:05 PM EDT Patient Name: PRISCILA CHA Diagnostic Radiology ACCESSION EXAM DATE/TIME PROCEDURE ORDERING PROVIDER [id number] 04/10/2021 12:43 EDT CR Spine Cervical 2 or 3 ISIAH ESPINOZA AMY L Views CPT code 49938 Reason For Exam (CR Spine Cervical 2 or 3 Views) Radiculopathy Report LEFT SHOULDER: CLINICAL INDICATION: Pain. TECHNIQUE: AP, Grashey and axillary COMPARISON: None. FINDINGS: There is no evidence for fracture or dislocation. The glenohumeral and acromioclavicular joints are unremarkable. No bone lesion is identified. There is no soft tissue abnormality. IMPRESSION: Normal left shoulder. CERVICAL SPINE: CLINICAL INDICATION: Neck pain. TECHNIQUE: AP, lateral and open mouth COMPARISON: None FINDINGS: No fracture is noted. There is smooth reversal of normal lordosis centered at C5. Spurring and disc space narrowing is noted particularly at C5-C6 and C6-C7 with posterior spondylotic protrusion projecting into the canal. There is additional spurring about the remaining vertebral bodies. Spurring is noted about the uncovertebral joints at C4-C5, C5-C6 and C6-C7. The retropharyngeal and retrotracheal soft tissues are unremarkable. IMPRESSION: Cervical spondylosis including posterior spondylotic protrusions at C5-C6 and C6-C7. Diagnostic Radiology Report Report Dictated on Workstation: [employer] --- Final --- Dictating Physician: MD YOUNG JEFFREY Signed Date and Time: 04/10/2021 1:04 pm Signed by: MD YOUNG JEFFREY Transcribed Date and Time: 04/10/2021 1:05 [facility] Work Phone: [facility] Work Phone: XR Shoulder Left 2 VWOrdered By: Nathaly Espinoza on 04-10-2021 [id number]iology ACCESSION EXAM DATE/TIME PROCEDURE ORDERING PROVIDER [id number] 04/10/2021 12:43 EDT CR Shoulder 2+ Views ISIAH ESPINOZA, NATHALY Davis Left CPT code 90850 Reason For Exam (CR Shoulder 2+ Views Left) Pain Report LEFT SHOULDER: CLINICAL INDICATION: Pain. TECHNIQUE: AP, Grashey and axillary COMPARISON: None. FINDINGS: There is no evidence for fracture or dislocation. The glenohumeral and acromioclavicular joints are unremarkable. No bone lesion is identified. There is no soft tissue abnormality. IMPRESSION: Normal left shoulder. CERVICAL SPINE: CLINICAL INDICATION: Neck pain. TECHNIQUE: AP, lateral and open mouth COMPARISON: None FINDINGS: No fracture is noted. There is smooth reversal of normal lordosis centered at C5. Spurring and disc space narrowing is noted particularly at C5-C6 and C6-C7 with posterior spondylotic protrusion projecting into the canal. There is additional spurring about the remaining vertebral bodies. Spurring is noted about the uncovertebral joints at C4-C5, C5-C6 and C6-C7. The retropharyngeal and retrotracheal soft tissues are unremarkable. IMPRESSION: Cervical spondylosis including posterior spondylotic protrusions at C5-C6 and C6-C7. Diagnostic Radiology Report Report Dictated on Workstation: [employer] --- Final --- Dictating Physician: MD YOUNG JEFFREY Signed Date and Time: 04/10/2021 1:04 pm Signed by: MD YOUNG JEFFREY Transcribed Date and Time: 04/10/2021 1:05 [facility] Work Phone: [facility], [facility] Incoming Radiology Results From [facility] - 04/10/2021 1:05 PM EDT Patient Name: PRISCILA CHA Diagnostic Radiology ACCESSION EXAM DATE/TIME PROCEDURE ORDERING PROVIDER [id number] 04/10/2021 12:43 EDT CR Shoulder 2+ Views ISIAH ESPINOZANATHALY Left CPT code 88077 Reason For Exam (CR Shoulder 2+ Views Left) Pain Report LEFT SHOULDER: CLINICAL INDICATION: Pain. TECHNIQUE: AP, Grashey and axillary COMPARISON: None. FINDINGS: There is no evidence for fracture or dislocation. The glenohumeral and acromioclavicular joints are unremarkable. No bone lesion is identified. There is no soft tissue abnormality. IMPRESSION: Normal left shoulder. CERVICAL SPINE: CLINICAL INDICATION: Neck pain. TECHNIQUE: AP, lateral and open mouth COMPARISON: None FINDINGS: No fracture is noted. There is smooth reversal of normal lordosis centered at C5. Spurring and disc space narrowing is noted particularly at C5-C6 and C6-C7 with posterior spondylotic protrusion projecting into the canal. There is additional spurring about the remaining vertebral bodies. Spurring is noted about the uncovertebral joints at C4-C5, C5-C6 and C6-C7. The retropharyngeal and retrotracheal soft tissues are unremarkable. IMPRESSION: Cervical spondylosis including posterior spondylotic protrusions at C5-C6 and C6-C7. Diagnostic Radiology Report Report Dictated on Workstation: [facility] --- Final --- Dictating Physician: MD YOUNG JEFFREY Signed Date and Time: 04/10/2021 1:04 pm Signed by: MD YOUNG JEFFREY Transcribed Date and Time: 04/10/2021 1:05 [facility] Work Phone: [facility] Work Phone: Add On Lab Teston 07-17-2020 Sodium [Moles/Vol] Accepted [place], [place] Comment on above: Specimen available & acceptable for analysis. Test Performed by [facility], [address] [place], [place] [address] [place] [address] Basic Metabolic Panelon 10-3 Anion gap [Moles/Vol] 9 mmol/L [place], [place] Calcium [Mass/Vol] 9.2 mg/dL 8.4 - 10. 4 mg/dL [place] Chloride [Moles/Vol] 110 mmol/L High 98 - 10 7 mmol/L [place] CO2 [Moles/Vol] 22 mmol/L 22 - 30 mmol/L [place] Creatinine [Mass/Vol] 0.64 mg/dL 0.52 - 1.25 mg/dL [place] EGFR IF NonAfrican Burmese >90.0 >60 mL/min [place] Comment on above: KDIGO guidelines pro vide the following GFR categories: Stage GFR(ml/min/1.73 m2) Terms G1 >=90 Normal or high G2 60-89 Mildly decreased* G3a 45-59 Mildly to moderately decreased G3b 30-44 Moderately to severely decreased G4 15-29 Severely decreased G5 <15 Kidney failure *Relative to young adult level. In the absence of evidence of kidney damage, neither GFR category G1 nor G2 fulfill the criteria for CKD. The CKD-EPI equation is validated in individuals 18 years of age and older. Currently the best equation for estimating glomerular filtration rate (GFR) from serum creatinine in children is the Bedside Olivera equation. It is less accurate in patients with extremes of muscle mass, restriction of dietary protein, ingestion of creatine, extra-renal metabolism of creatinine, or treatment with medications that affect renal tubular creatinine secretion. GFR/1.73 sq M predicted among blacks MDRD (S/P/Bld) [Vol rate/Area] mL/min/{1.73_m2} >60 mL/min [place] Glucose [Mass/Vol] 101 mg/dL High 70 - 100 mg/dL [place] Interpretation and review of laboratory results Abnormal [place] Potassium [Moles/Vol] 4.1 mmol/L 3.5 - 5.1 mmol/L [place] Sodium [Moles/Vol] 141 mmol/L 135 - 145 mmol/L [place] Urea nitrogen [Mass/Vol] 21 mg/dL High 7 - 20 mg/dL [place] Test Performed by [facility], [address], [place], [place] [address] [place] CTA Chest W WO (PE study)on 07-17-2020 Patient Name: PRISCILA CHA ---CT--- Exam Date/Time 07/17/2020 12:41:19 EDT Exam CTA Chest w/ + w/o Contrast Ordering Physician [id number] -CRISTO TOM Accession Number [id number] CPT4 Codes 54538 (), Q9967 (CT ISOVUE 370MG/ML&[id number] &1) Reason For Exam R sided chest pain, elevated d dimer Report CT ANGIOGRAM OF THE CHEST(PULMONARY EMBOLISM PROTOCOL): INDICATION: Right-sided chest pain, elevated d-dimer COMPARISON: No previous studies are available for comparison. CTA of the chest was performed following the IV administration of 75 cc of Isovue-370. The contrast bolus was optimized for maximal opacification of the pulmonary vascular tree. Fine section CT images were obtained from the apices through the lung bases. The study was reviewed in the axial, sagittal and coronal planes. In addition a 3-D volume rendering was processed concurrently by the radiologist and reviewed on a separate workstation. The thyroid is normal in appearance. The thoracic soft tissues are grossly normal. There is no axillary lymphadenopathy. The contrast bolus injection is satisfactory. There are no filling defects within the pulmonary vascular tree to suggest the presence of a pulmonary embolus. Evaluation of the pulmonary parenchyma demonstrates signs of centrilobular emphysema. There are no effusions or infiltrates. Evaluation of the mediastinum demonstrates no evidence of mediastinal mass or lymphadenopathy. The heart is normal in size. A limited review of the upper abdomen demonstrates no gross abnormality. IMPRESSION: The CTA of the chest is negative for pulmonary embolus, aortic aneurysm or aortic dissection. Report Dictated on --- Final --- Dictating Physician: DO NASH ALFRED Signed Date and Time: 07/17/2020 1:02 pm Signed by: DO NASH ALFRED Transcribed Date and Time: 07/17/2020 1:04 [facility] [place], [place] [facility] Incoming Radiology Results From [facility] - 07/17/2020 1:04 PM EDT Patient Name: PRISCILA CHA ---CT--- Exam Date/Time 07/17/2020 12:41:19 EDT Exam CTA Chest w/ + w/o Contrast Ordering Physician [id number] -CRISTO TOM Accession Number [id number] CPT4 Codes 02300 (), Q9967 (CT ISOVUE 370MG/ML&[id number]&ML &1) Reason For Exam R sided chest pain, elevated d dimer Report CT ANGIOGRAM OF THE CHEST(PULMONARY EMBOLISM PROTOCOL): INDICATION: Right-sided chest pain, elevated d-dimer COMPARISON: No previous studies are available for comparison. CTA of the chest was performed following the IV administration of 75 cc of Isovue-370. The contrast bolus was optimized for maximal opacification of the pulmonary vascular tree. Fine section CT images were obtained from the apices through the lung bases. The study was reviewed in the axial, sagittal and coronal planes. In addition a 3-D volume rendering was processed concurrently by the radiologist and reviewed on a separate workstation. The thyroid is normal in appearance. The thoracic soft tissues are grossly normal. There is no axillary lymphadenopathy. The contrast bolus injection is satisfactory. There are no filling defects within the pulmonary vascular tree to suggest the presence of a pulmonary embolus. Evaluation of the pulmonary parenchyma demonstrates signs of centrilobular emphysema. There are no effusions or infiltrates. Evaluation of the mediastinum demonstrates no evidence of mediastinal mass or lymphadenopathy. The heart is normal in size. A limited review of the upper abdomen demonstrates no gross abnormality. IMPRESSION: The CTA of the chest is negative for pulmonary embolus, aortic aneurysm or aortic dissection. Report Dictated on --- Final --- Dictating Physician: DO NASH ALFRED Signed Date and Time: 07/17/2020 1:02 pm Signed by: DO NASH ALFRED Transcribed Date and Time: 07/17/2020 1:04 [facility], [place] D-Dimer, Quantitativeon 10-3 D-Dimer, Quant 1.15 mg/L High 0 - 0.5 mg/L [facility], [place] Comment on above: [employer] D-Dimer va lues of <0.50 mg/L FEU can be used in combination with a pre-test probability model (e.g. Well's) to exclude pulmonary embolism (PE) disease, as well as an aid in the diagnosis of deep vein thrombosis (DVT). Interpretation and review of laboratory results Abnormal [place] Test Performed by [facility], [address], [place], [place] [address] [place] Hemogram (CBC) w/Auto Diffon 07-17-2020 Absolute Baso # 0.1 10*3/uL 0 - 0.2 10*3/uL [place] Absolute Neut # 5.3 10*3/uL 1.8 - 7 10*3/uL [place] Basophils/100 WBC (Bld) 0.7 % 0 - 2 % [place] Eosinophils (Bld) [#/Vol] 0.2 10*3/uL 0 - 0.5 10*3/uL [place] Eosinophils/100 WBC (Bld) 2.6 % 1 - 6 % [place] Erythrocyte distribution width (RBC) [Ratio] 14.8 % High 11.5 - 14.5 % [place] Granulocytes/100 WBC (Bld) 68.6 % 40 - 80 % [place] Hematocrit (Bld) [Volume fraction] 43.9 % 35 - 47 % [place] Hemoglobin (Bld) [Mass/Vol] 14.7 g/dL 11.7 - 16 g/dL [place] Interpretation and review of laboratory results Abnormal [place] Lymphocytes (Bld) [#/Vol] 1.4 10*3/uL 1 - 4.3 10*3/uL [place] Lymphocytes/100 WBC (Bld) 18.1 % Low 20 - 40 % [place] MCH (RBC) [Entitic mass] 29.4 pg 26 - 34 pg [place] MCHC (RBC) [Mass/Vol] 33.4 % 32 - 36 % [place] MCV (RBC) [Entitic vol] 88.0 fL 79 - 98 fL [place] Monocytes (Bld) [#/Vol] 0.8 10*3/uL 0 - 0.8 10*3/uL [place] Monocytes/100 WBC (Bld) 10.0 % 2 - 10 % [place] Platelet mean volume (Bld) [Entitic vol] 7.5 fL 7.4 - 10.4 fL [place] Platelets (Bld) [#/Vol] 295 10*3/uL 140 - 440 10*3/uL [place] RBC (Bld) [#/Vol] 4.99 10*6/uL 3.8 - 5.2 10*6/uL [place] WBC (Bld) [#/Vol] 7.8 10*3/uL 3.6 - 10.7 10*3/uL [place] Test Performed by [facility], [address] [place], [place] [id number] [place] [address] Troponin x1on 07-17-2020 Troponin I.cardiac [Mass/Vol] ng/mL 0 - 0.034 ng/mL [place] Comment on above: . Test Performed by [facility], [address] [place], [place], [place] [id number] [place] [address] Urinalysison 07-17-2020 AMORPHOUS CRYSTAL Few Abnormal Negative /[HPF] [place] Comment on above: . Appearance (U) Clear Clear NA [place] Comment on above: . Bacteria, UA Moderate Abnormal Negative /[HPF] [place] Comment on above: . Bilirubin Urine Negative Negative mg/dL [place] Comment on above: . Color (U) Light-Yellow Lt. Yellow NA [place] Comment on above: . Glucose, Ur Normal Normal (<70) mg/dL [place] Comment on above: . Interpretation and review of laboratory results Abnormal [place] Ketones Ql (U) Trace Abnormal Negative mg/dL [place] Comment on above: . LEUKOCYTES, UA Negative Negative Lauro/uL [place] Comment on above: . Mucous Threads Few Negative /[LPF] [place] Comment on above: . Nitrite, Urine Positive Abnormal Negative NA [place] Comment on above: . Occult Blood,Urine Negative Negative mg/dL [place] Comment on above: . pH (U) 5.5 [pH] [place] Comment on above: . Protein (U) [Mass/Vol] Negative Negat santino mg/dL [place] Comment on above: . RBC (U) [#/Vol] 0-2 0 - 2 /[HPF] [place] Comment on above: . Specific [place], Urine 1.025 [place] Comment on above: . Squam Epithel, UA 0-2 3 - 5 /[HPF] [place] Comment on above: . Urobilinogen, Urine Normal Normal (0-1) mg/dL [place] Comment on above: . WBC, UA 0-2 0 - 5 /[HPF] [place] Comment on above: . Test Performed by [facility], [address] [place], [place], [place] [address] [place] XR CHEST PORTABLEon 07-17-20 20 [facility] Incoming Radiology Results From [facility] - 07/17/2020 11:56 AM EDT Patient Name: PRISCILA CHA ---Diagnostic Radiology--- Exam Date/Time 07/17/2020 11:50:58 EDT Exam CR Chest Portable Ordering Physician [id number] -CRISTO TOM Accession Number [id number] CPT4 Codes 97942 () Reason For Exam R sided chest pain Report CHEST (Frontal View) History: Chest pain Comparison: 11/19/2019 Findings: Frontal chest view shows mild interstitial prominence without acute lung infiltrate or congestion. The heart is normal in size. There are atherosclerotic calcifications. There is no mediastinal widening or pleural effusion. There is spondylosis. IMPRESSION: No acute pulmonary process. Chronic findings. Report Dictated on --- Final --- Dictating Physician: MD CÁRDENAS AHMAD Signed Date and Time: 07/17/2020 11:54 am Signed by: MD CÁRDENAS AHMAD Transcribed Date and Time: 07/17/2020 11:55 [place] Patient Name: PRISCILA CHA ---Diagnostic Radiology--- Exam Date/Time 07/17/2020 11:50:58 EDT Exam CR Chest Portable Ordering Physician [id number] -CRISTO TOM Accession Number [id number] CPT4 Codes 73717 () Reason For Exam R sided chest pain Report CHEST (Frontal View) History: Chest pain Comparison: 11/19/2019 Findings: Frontal chest view shows mild interstitial prominence without acute lung infiltrate or congestion. The heart is normal in size. There are atherosclerotic calcifications. There is no mediastinal widening or pleural effusion. There is spondylosis. IMPRESSION: No acute pulmonary process. Chronic findings. Report Dictated on --- Final --- Dictating Physician: MD CÁRDENAS AHMAD Signed Date and Time: 07/17/2020 11:54 am Signed by: MD CÁRDENAS AHMAD Transcribed Date and Time: 07/17/2020 11:55 [place] Comprehensive Metabolic Pane miles 11-19-2019 Albumin [Mass/Vol] 4.0 g/dL 3.5 - 5 g/dL [place] ALP [Catalytic activity/Vol] 58 U/L 38 - 126 U/L [place] ALT [Catalytic activity/Vol] 23 U/L 13 - 69 U/L [place] Anion gap [Moles/Vol] 11 mmol/L [place] AST [Catalytic activity/Vol] 28 U/L 15 - 46 U/L [place] Bilirubin Ql (U) 0.5 mg/dL 0.2 - 1.3 mg/dL [place] Calcium [Mass/Vol] 9.5 mg/dL 8.4 - 10. 4 mg/dL [place] Chloride [Moles/Vol] 104 mmol/L 98 - 10 7 mmol/L [place] CO2 [Moles/Vol] 23 mmol/L 22 - 30 mmol/L [place] Creatinine [Mass/Vol] 0.65 mg/dL 0.52 - 1.25 mg/dL [place] EGFR IF NonAfrican Burmese >60.0 >60 mL/min [place] Comment on above: Source- MDRD equatio n with creatinine calibration to IDMS(NKDEP) eGFR not recommended for drug dose adjustment GFR/1.73 sq M predicted among blacks MDRD (S/P/Bld) [Vol rate/Area] mL/min/{1.73_m2} >60 mL/min [place] Glucose [Mass/Vol] 97 mg/dL 70 - 100 mg/dL [place] Potassium [Moles/Vol] 4.1 mmol/L 3.5 - 5.1 mmol/L [place] Protein [Mass/Vol] 7.7 g/dL 6.3 - 8.2 g/dL [place] Sodium [Moles/Vol] 137 mmol/L 135 - 145 mmol/L [place] Urea nitrogen [Mass/Vol] 18 mg/dL 7 - 20 mg/dL [place] Test Performed by [facility], [address], [place], [place] [address] [place] Hemogram (CBC) w/Auto Diffon 11-19-2019 Absolute Baso # 0.0 10*3/uL 0 - 0.2 10*3/uL [place] Absolute Neut # 6.3 10*3/uL 1.8 - 7 10*3/uL [place] Basophils/100 WBC (Bld) 0.4 % 0 - 2 % [place] Eosinophils (Bld) [#/Vol] 0.1 10*3/uL 0 - 0.5 10*3/uL [place] Eosinophils/100 WBC (Bld) 0.9 % Low 1 - 6 % [place] Erythrocyte distribution width (RBC) [Ratio] 14.7 % High 11.5 - 14.5 % [place] Granulocytes/100 WBC (Bld) 75.1 % 40 - 80 % [place] Hematocrit (Bld) [Volume fraction] 41.5 % 35 - 47 % [place] Hemoglobin (Bld) [Mass/Vol] 14.1 g/dL 11.7 - 16 g/dL [place] Interpretation and review of laboratory results Abnormal [place] Lymphocytes (Bld) [#/Vol] 1.3 10*3/uL 1 - 4.3 10*3/uL [place] Lymphocytes/100 WBC (Bld) 15.3 % Low 20 - 40 % [place] MCH (RBC) [Entitic mass] 29.4 pg 26 - 34 pg [place] MCHC (RBC) [Mass/Vol] 34.0 % 32 - 36 % [place] MCV (RBC) [Entitic vol] 86.5 fL 79 - 98 fL [place] Monocytes (Bld) [#/Vol] 0.7 10*3/uL 0 - 0.8 10*3/uL [place] Monocytes/100 WBC (Bld) 8.3 % 2 - 10 % [place] Platelet mean volume (Bld) [Entitic vol] 7.5 fL 7.4 - 10.4 fL [place] Platelets (Bld) [#/Vol] 392 10*3/uL 140 - 440 10*3/uL [place] RBC (Bld) [#/Vol] 4.80 10*6/uL 3.8 - 5.2 10*6/uL [place] WBC (Bld) [#/Vol] 8.5 10*3/uL 3.6 - 10.7 10*3/uL [place] Test Performed by [facility], [address], [place], [place] [address] [place] Rapid influenza A/B antigens on 11-19-2019 INFLUENZA A Not Detected Not Detected NA [place] INFLUENZA B Not Detected Not Detected NA [place] Comment on above: Method: Isothermal n ucleic acid amplification technology. Test Performed by [facility], [address], [place], [place] [address] [place] Troponin x1on 11-19-2019 Troponin I.cardiac [Mass/Vol] ng/mL 0 - 0.034 ng/mL [place] Comment on above: . Test Performed by [facility], [address], [place], [place] [address] [place] XR CHEST STANDARD (2 VW)on 0 11-19-2019 [facility] Incoming Radiology Results From [facility] - 11/19/2019 10:56 AM EST Patient Name: PRISCILA CHA ---Diagnostic Radiology--- Exam Date/Time 11/19/2019 10:43:00 EST Exam CR Chest PA/LAT Ordering Physician SATINDER FOSTER TAYLOR Accession Number [id number] CPT4 Codes 72739 () Reason For Exam sob, cp, flu-like Report CLINICAL INFORMATION: Shortness of breath, coughing and chest pain. Flulike symptoms. Smoker. Chest x-ray, PA and lateral: PA and lateral views are compared to the prior examination of 03/01/2019. There is no abnormality of the mediastinum or cardiac silhouette. The pulmonary arteries are prominent at the lam, unchanged. No pleural effusion, vascular congestion, focal consolidation or pneumothorax is seen. The lungs are hyperinflated with flattened hemidiaphragms and increased retrosternal airspace consistent with chronic obstructive pulmonary disease. IMPRESSION: Chronic obstructive pulmonary disease. No evidence of superimposed acute cardiopulmonary process or significant interval change. Report Dictated on --- Final --- Dictating Physician: MD LARSON HARLAN Signed Date and Time: 11/19/2019 10:54 am Signed by: MD LARSON HARLAN Transcribed Date and Time: 11/19/2019 10:55 [place] Patient Name: PRISCILA CHA ---Diagnostic Radiology--- Exam Date/Time 11/19/2019 10:43:00 EST Exam CR Chest PA/LAT Ordering Physician SATINDER FOSTER TAYLOR Accession Number [id number] CPT4 Codes 52666 () Reason For Exam sob, cp, flu-like Report CLINICAL INFORMATION: Shortness of breath, coughing and chest pain. Flulike symptoms. Smoker. Chest x-ray, PA and lateral: PA and lateral views are compared to the prior examination of 03/01/2019. There is no abnormality of the mediastinum or cardiac silhouette. The pulmonary arteries are prominent at the lam, unchanged. No pleural effusion, vascular congestion, focal consolidation or pneumothorax is seen. The lungs are hyperinflated with flattened hemidiaphragms and increased retrosternal airspace consistent with chronic obstructive pulmonary disease. IMPRESSION: Chronic obstructive pulmonary disease. No evidence of superimposed acute cardiopulmonary process or significant interval change. Report Dictated on --- Final --- Dictating Physician: MD LARSON HARLAN Signed Date and Time: 11/19/2019 10:54 am Signed by: MD LARSON HARLAN Transcribed Date and Time: 11/19/2019 10:55 [place] No Panel Information [facility] Vital Signs Date Time Vital Sign Value Performing Clinician Facility 06-27-2024 11:40-0400 Body height 160 cm Annabel Zavala MD Work Phone: [facility] 06-27-2024 11:40-0400 Body mass index (BMI) [Ratio] 23.83 kg/m2 Annabel Zavala MD Work Phone: [facility] 06-27-2024 11:40-0400 Body weight 61.01 kg Annabel Zavala MD Work Phone: [facility] 06-27-2024 11:40-0400 Respiratory rate 18 /min Annabel Zavala MD Work Phone: [facility] 06-12-2024 11:00-0400 Body mass index (BMI) [Ratio] 23.82 kg/m2 Lavern Hidalgo APRN.[employer] Work Phone: [facility] 06-12-2024 11:00-0400 Body weight 61 kg Lavern Hidalgo APRN.[employer] Work Phone: [facility] 06-12-2024 11:00-0400 Diastolic blood pressure 84 mm[Hg] Lavern Hidalgo APRN.[employer] Work Phone: [facility] 06-12-2024 11:00-0400 Heart rate 92 /min Lavern Fegatelli ENGRAVINGS POLISHER.[employer] Work Phone: [facility] 06-12-2024 11:00-0400 Respiratory rate 16 /min Lavern Fegatelli ENGRAVINGS POLISHER.SUPER[employer] Work Phone: [facility] 06-12-2024 11:00-0400 SaO2% (BldA) [Mass fraction] 98 % Lavern Fegatelli ENGRAVINGS POLISHER.SUPER[employer] Work Phone: [facility] 06-12-2024 11:00-0400 Systolic blood pressure 137 mm[Hg] Lavern Fegatelli ENGRAVINGS POLISHER.SUPER[employer] Work Phone: [facility] 03-20-2024 09:22-0400 Body height 160 cm Adria Lopez MD Work Phone: [facility] [place] 03-20-2024 09:22-0400 Body mass index (BMI) [Ratio] 21.97 kg/m2 Adria Lopez MD Work Phone: [facility] 03-20-2024 09:22-0400 Body weight 56.25 kg Adria Lopez MD Work Phone: [facility] 03-20-2024 09:22-0400 Diastolic blood pressure 85 mm[Hg] Adria Lopez MD Work Phone: [facility] 03-20-2024 09:22-0400 Heart rate 88 /min Adria Lopez MD Work Phone: [facility] 03-20-2024 09:22-0400 Systolic blood pressure 163 mm[Hg] Adria Lopez MD Work Phone: [facility] 03-05-2024 14:09-0400 Body height 160 cm Wanda Molina PA-C Work Phone: [facility] 03-05-2024 14:09-0400 Body mass index (BMI) [Ratio] 27.63 kg/m2 Wanda Molina PA-C Work Phone: [facility] 03-05-2024 14:09-0400 Body weight 70.76 kg Wanda RAJAN-C Work Phone: [facility] 03-05-2024 14:09-0400 Diastolic blood pressure 84 mm[Hg] Wanda RAJAN-C Work Phone: [facility] 03-05-2024 14:09-0400 Systolic blood pressure 138 mm[Hg] Wanda RAJAN-C Work Phone: [facility] 02-23-2024 11:09-0400 Body height 160 cm Adria Lopez MD Work Phone: [facility] 02-23-2024 11:09-0400 Body mass index (BMI) [Ratio] 22.04 kg/m2 Adria Lopez MD Work Phone: [facility] 02-23-2024 11:09-0400 Body weight 56.43 kg Adria Lopez MD Work Phone: [facility] 02-23-2024 11:09-0400 Diastolic blood pressure 73 mm[Hg] Adria Lopez MD Work Phone: [facility] 02-23-2024 11:09-0400 Heart rate 120 /min Adria Lopez MD Work Phone: [facility] 02-23-2024 11:09-0400 Systolic blood pressure 112 mm[Hg] Adria Lopez MD Work Phone: [facility] 02-16-2024 16:13-0400 Body temperature 99.5 [degF] Adria Lopez MD Work Phone: [employer] [place] 02-16-2024 16:13-0400 Diastolic blood pressure 52 mm[Hg] Adria Lopez MD Work Phone: [facility] 02-16-2024 16:13-0400 Heart rate 88 /min Adria Lopez MD Work Phone: [facility] 02-16-2024 16:13-0400 Respiratory rate 20 /min Adria Lopez MD Work Phone: [facility] 02-16-2024 16:13-0400 SaO2% (BldA) [Mass fraction] 93 % Adria Lopez MD Work Phone: [facility] 02-16-2024 16:13-0400 Systolic blood pressure 116 mm[Hg] Adria Lopez MD Work Phone: [facility] 02-13-2024 09:26-0400 Body height 160 cm Adria Lopez MD Work Phone: [facility] 02-09-2024 06:26-0400 Body mass index (BMI) [Ratio] 22.67 kg/m2 Adria Lopez MD Work Phone: [facility] 02-09-2024 06:26-0400 Body weight 58.06 kg Adria Lopez MD Work Phone: [facility] 02-05-2024 10:28-0400 Body height 160 cm Rubén Jimenes MD Work Phone: [facility] 02-05-2024 10:28-0400 Body mass index (BMI) [Ratio] 23.74 kg/m2 Rubén Jimenes MD Work Phone: [facility] 02-05-2024 10:28-0400 Body weight 60.78 kg Rubén Jimenes MD Work Phone: [facility] 02-05-2024 10:28-0400 Respiratory rate 16 /min Rubén Jimenes MD Work Phone: [facility] 01-05-2024 11:08-0400 Body height 157.5 cm Adria Lopez MD Work Phone: [facility] 01-05-2024 11:08-0400 Body mass index (BMI) [Ratio] 24.14 kg/m2 Adria Lopez MD Work Phone: [facility] 01-05-2024 11:08-0400 Body weight 59.88 kg Adria Lopez MD Work Phone: [facility] 01-05-2024 11:08-0400 Diastolic blood pressure 86 mm[Hg] Adria Lopez MD Work Phone: [facility] 01-05-2024 11:08-0400 Heart rate 78 /min Adria Lopez MD Work Phone: [facility] 01-05-2024 11:08-0400 Systolic blood pressure 144 mm[Hg] Adria Lopez MD Work Phone: [facility] 01-02-2024 11:35-0400 Diastolic blood pressure 90 mm[Hg] Jefe Arias MD Work Phone: [facility] 01-02-2024 11:35-0400 Heart rate 77 /min Jefe Arias MD Work Phone: [facility] 01-02-2024 11:35-0400 Respiratory rate 18 /min Jefe Arias MD Work Phone: [facility] 01-02-2024 11:35-0400 Systolic blood pressure 171 mm[Hg] Jefe Arias MD Work Phone: [facility] 01-02-2024 11:30-0400 SaO2% (BldA) [Mass fraction] 93 % Jefe Arias MD Work Phone: [facility] 01-02-2024 11:15-0400 Body temperature 97.9 [degF] Jefe Arias MD Work Phone: [facility] Comment on above: Simultaneous filing. User may not have s een previous data. 01-02-2024 10:01-0400 Body mass index (BMI) [Ratio] 23.41 kg/m2 Jefe Arias MD Work Phone: [facility] 01-02-2024 10:01-0400 Body weight 58.06 kg Jefe Arias MD Work Phone: [facility] 12-20-2023 09:16-0400 Body height 157.5 cm Adria Lopez MD Work Phone: [facility] 12-20-2023 09:16-0400 Body mass index (BMI) [Ratio] 23.3 kg/m2 Adria Lopez MD Work Phone: [facility] 12-20-2023 09:16-0400 Body weight 57.79 kg Adria Lopez MD Work Phone: [facility] 12-20-2023 09:16-0400 Diastolic blood pressure 78 mm[Hg] Adria Lopez MD Work Phone: [facility] 12-20-2023 09:16-0400 Heart rate 85 /min Adria Lopez MD Work Phone: [facility] 12-20-2023 09:16-0400 Systolic blood pressure 121 mm[Hg] Adria Lopez MD Work Phone: [facility] 11-29-2023 10:26-0400 Body height 160 cm Rubén Jimenes MD Work Phone: [facility] 11-29-2023 10:26-0400 Body weight 60.78 kg Rubén Jimenes MD Work Phone: [facility] 11-29-2023 10:26-0400 Respiratory rate 20 /min Rubén Jimenes MD Work Phone: [facility] 2023 10:20-0500 Body height 157.5 cm Fernando Black ENGRAVINGS POLISHER - [employer] Work Phone: [facility] 2023 10:20-0500 Body mass index (BMI) [Ratio] 23.41 kg/m2 Fernando Black ENGRAVINGS POLISHER - [employer] Work Phone: [facility] 2023 10:20-0500 Body weight 58.06 kg Fernando Black ENGRAVINGS POLISHER - [employer]PER[employer] Work Phone: [facility] 2023 10:20-0500 Diastolic blood pressure 78 mm[Hg] Fernando Black ENGRAVINGS POLISHER - [employer]PER[employer] Work Phone: [facility] 2023 10:20-0500 Heart rate 97 /min Fernando Black ENGRAVINGS POLISHER - [employer]PER[employer] Work Phone: [facility] 2023 10:20-0500 Systolic blood pressure 122 mm[Hg] Fernando Brady ENGRAVINGS POLISHER - [employer]PER[employer] Work Phone: [facility] 11-17-2023 09:55-0500 Body height 157.5 cm Rashida Gent PA Work Phone: [facility] 11-17-2023 09:55-0500 Diastolic blood pressure 97 mm[Hg] Rashida Gent PA Work Phone: [facility] 11-17-2023 09:55-0500 Heart rate 105 /min Rashida Gent PA Work Phone: [facility] 11-17-2023 09:55-0500 Systolic blood pressure 151 mm[Hg] Rashida Gent PA Work Phone: [facility] 11-10-2023 07:52-0500 Body temperature 97.11 [degF] Juan Luna DO Work Phone: [facility] 11-10-2023 07:52-0500 Diastolic blood pressure 80 mm[Hg] Juan Jeremy DO Work Phone: [facility] 11-10-2023 07:52-0500 Heart rate 106 /min Juan Jeremy DO Work Phone: [facility] 11-10-2023 07:52-0500 Respiratory rate 18 /min Juan Jeremy DO Work Phone: [facility] 11-10-2023 07:52-0500 SaO2% (BldA) [Mass fraction] 93 % Juan Jeremy DO Work Phone: [facility] 11-10-2023 07:52-0500 Systolic blood pressure 160 mm[Hg] Juan Tobiastunde DO Work Phone: [facility] 11-05-2023 14:33-0500 Body height 157 cm Juan Jeremy DO Work Phone: [facility] 11-04-2023 04:29-0500 Body mass index (BMI) [Ratio] 24.67 kg/m2 Juan Tobiastunde DO Work Phone: [facility] 11-04-2023 04:29-0500 Body weight 60.8 kg Juan Jatinderaci DO Work Phone: [facility] 11-02-2023 10:06-0500 Body temperature 98.29 [degF] Conner Giffels PT Work Phone: [facility] 11-02-2023 10:06-0500 Diastolic blood pressure 90 mm[Hg] Conner Giffels PT Work Phone: [facility] 11-02-2023 10:06-0500 Heart rate 101 /min Conner Giffels PT Work Phone: [facility] 11-02-2023 10:06-0500 Respiratory rate 18 /min Conner Giffels PT Work Phone: [facility] 11-02-2023 10:06-0500 SaO2% (BldA) [Mass fraction] 96 % Conner Giffels PT Work Phone: [facility] 11-02-2023 10:06-0500 Systolic blood pressure 149 mm[Hg] Conner Giffels PT Work Phone: [facility] 10-31-2023 09:05-0500 Diastolic blood pressure 80 mm[Hg] Pringeovanni Prieto CLAM SHUCKER Work Phone: [facility] 10-31-2023 09:05-0500 Heart rate 76 /min Prinston Prieto CLAM SHUCKER Work Phone: [facility] 10-31-2023 09:05-0500 Respiratory rate 18 /min Prinston Prieto CLAM SHUCKER Work Phone: [facility] 10-31-2023 09:05-0500 SaO2% (BldA) [Mass fraction] 99 % Prinston Prieto CLAM SHUCKER Work Phone: [facility] 10-31-2023 09:05-0500 Systolic blood pressure 132 mm[Hg] Prinston Prieto CLAM SHUCKER Work Phone: [facility] 10-31-2023 08:40-0500 Body temperature 97.2 [degF] Prinston Prieto CLAM SHUCKER Work Phone: [facility] 10-30-2023 13:18-0500 Body height 160 cm Rubén Jimenes MD Work Phone: [facility] 10-30-2023 13:18-0500 Body weight 60.78 kg Rubén Jimenes MD Work Phone: [facility] 10-30-2023 13:18-0500 Respiratory rate 18 /min Rubén Jimenes MD Work Phone: [facility] 10-25-2023 10:01-0500 Diastolic blood pressure 70 mm[Hg] Prinston Prieto CLAM SHUCKER Work Phone: [facility] 10-25-2023 10:01-0500 Heart rate 88 /min Prinston Prieto CLAM SHUCKER Work Phone: [facility] 10-25-2023 10:01-0500 Respiratory rate 18 /min Prinston Prieto CLAM SHUCKER Work Phone: [facility] 10-25-2023 10:01-0500 SaO2% (BldA) [Mass fraction] 96 % Prinston Prieto CLAM SHUCKER Work Phone: [facility] 10-25-2023 10:01-0500 Systolic blood pressure 124 mm[Hg] Prinston Prieto CLAM SHUCKER Work Phone: [facility] 10-25-2023 09:40-0500 Body temperature 97.2 [degF] Prinston Prieto CLAM SHUCKER Work Phone: [facility] 10-20-2023 12:44-0500 Body temperature 97.39 [degF] Marcial Niki CLAM SHUCKER Work Phone: [facility] 10-20-2023 12:44-0500 Diastolic blood pressure 60 mm[Hg] Marcial Niki CLAM SHUCKER Work Phone: [facility] 10-20-2023 12:44-0500 Heart rate 66 /min Marcial Niki CLAM SHUCKER Work Phone: [facility] 10-20-2023 12:44-0500 Respiratory rate 12 /min Marcial Niki CLAM SHUCKER Work Phone: [facility] 10-20-2023 12:44-0500 SaO2% (BldA) [Mass fraction] 94 % Marcial Ho CLAM SHUCKER Work Phone: [facility] 10-20-2023 12:44-0500 Systolic blood pressure 118 mm[Hg] Marcial Ho CLAM SHUCKER Work Phone: [facility] 10-18-2023 12:39-0500 Heart rate 88 /min Shira Richard PT Work Phone: [facility] 10-18-2023 12:39-0500 Respiratory rate 22 /min Shira Richard PT Work Phone: [facility] 10-18-2023 12:39-0500 SaO2% (BldA) [Mass fraction] 96 % Shira Richard PT Work Phone: [facility] 10-18-2023 12:15-0500 Body temperature 48.4 [degF] Shira Richard PT Work Phone: [facility] 10-18-2023 12:15-0500 Diastolic blood pressure 78 mm[Hg] Shira Richard PT Work Phone: [facility] 10-18-2023 12:15-0500 Systolic blood pressure 126 mm[Hg] Shira Richard PT Work Phone: [facility] 09-27-2023 10:31-0500 Body height 160 cm Adria Lopez MD Work Phone: [employer] 09-27-2023 10:31-0500 Body mass index (BMI) [Ratio] 23.88 kg/m2 Adria Lopez MD Work Phone: [employer] 09-27-2023 10:31-0500 Body temperature 97.9 [degF] Adria Lopez MD Work Phone: [employer] 09-27-2023 10:31-0500 Body weight 61.15 kg Adria Lopez MD Work Phone: [employer] 09-27-2023 10:31-0500 Diastolic blood pressure 88 mm[Hg] Adria Lopez MD Work Phone: [employer] 09-27-2023 10:31-0500 Heart rate 130 /min Adria Lopez MD Work Phone: [employer] 09-27-2023 10:31-0500 Systolic blood pressure 137 mm[Hg] Adria Lopez MD Work Phone: [facility] 08-02-2023 13:34-0500 Body height 160 cm Helen Covington PA-C Work Phone: [employer] 08-02-2023 13:34-0500 Body mass index (BMI) [Ratio] 22.14 kg/m2 Helen Adria PA-C Work Phone: [employer] 08-02-2023 13:34-0500 Body temperature 98.1 [degF] Seal Harborshirin Covington PA-C Work Phone: [facility] [employer] 08-02-2023 13:34-0500 Body weight 56.7 kg Helen Covington PA-C Work Phone: [facility] 08-02-2023 13:34-0500 Diastolic blood pressure 74 mm[Hg] Helen Adria PA-C Work Phone: [facility] 08-02-2023 13:34-0500 Heart rate 115 /min Helen Adria PA-C Work Phone: [facility] 08-02-2023 13:34-0500 SaO2% (BldA) [Mass fraction] 96 % Helen Adria PA-C Work Phone: [facility] 08-02-2023 13:34-0500 Systolic blood pressure 122 mm[Hg] Helen Covington PA-C Work Phone: [facility] 07-19-2023 08:57-0400 Body height 160 cm Adria Lopez MD Work Phone: [facility] 07-19-2023 08:57-0400 Body mass index (BMI) [Ratio] 23.13 kg/m2 Adria Lopez MD Work Phone: [employer] 07-19-2023 08:57-0400 Body temperature 97.2 [degF] Adria Lopez MD Work Phone: [employer] 07-19-2023 08:57-0400 Body weight 59.24 kg Adria Lopez MD Work Phone: [employer] 07-19-2023 08:57-0400 Diastolic blood pressure 113 mm[Hg] Adria Lopez MD Work Phone: [employer] 07-19-2023 08:57-0400 Heart rate 111 /min Adria Lopez MD Work Phone: [employer] 07-19-2023 08:57-0400 Systolic blood pressure 157 mm[Hg] Adria Lopez MD Work Phone: [employer] 07-10-2023 07:25-0400 Body temperature 98.1 [degF] Vita Olmstedville DO Work Phone: [employer] 07-10-2023 07:25-0400 Diastolic blood pressure 80 mm[Hg] Abelinolyn [place] DO Work Phone: [employer] 07-10-2023 07:25-0400 Heart rate 103 /min Jaklyn [place] DO Work Phone: [employer] 07-10-2023 07:25-0400 Respiratory rate 14 /min Kellyn [place] DO Work Phone: [employer] 07-10-2023 07:25-0400 SaO2% (BldA) [Mass fraction] 98 % Jaklyn [place] DO Work Phone: [employer] 07-10-2023 07:25-0400 Systolic blood pressure 127 mm[Hg] Kellyn [place] DO Work Phone: [employer] 07-04-2023 10:01-0400 Body height 160 cm Jakkourtney Aurelio DO Work Phone: [facility] 06-24-2023 04:15-0400 Body mass index (BMI) [Ratio] 24.95 kg/m2 Vita Carey DO Work Phone: [facility] 06-24-2023 04:15-0400 Body weight 63.9 kg Vita Carey DO Work Phone: [facility] 05-01-2023 10:29-0400 Body height 160 cm Rubén Jimenes MD Work Phone: [facility] 05-01-2023 10:29-0400 Body weight 65.32 kg Rubén Jimenes MD Work Phone: [facility] 05-01-2023 10:29-0400 Respiratory rate 18 /min Rubén Jimenes MD Work Phone: [facility] 04-20-2023 11:10-0400 Body height 160 cm Annabel Zavala MD Work Phone: [facility] 04-20-2023 11:10-0400 Body weight 65.32 kg Annabel Zavala MD Work Phone: [facility] 04-20-2023 11:10-0400 Respiratory rate 18 /min Annabel Zavala MD Work Phone: [facility] 10-06-2022 13:56-0500 Body height 162.6 cm Annabel Zavala MD Work Phone: [facility] 10-06-2022 13:56-0500 Body weight 64.86 kg Annabel Zavala MD Work Phone: [facility] 10-06-2022 13:56-0500 Respiratory rate 18 /min Annabel Zavala MD Work Phone: [facility] 06-22-2022 11:14-0400 Body temperature 97.59 [degF] Fito Gombash DO Work Phone: [facility] 06-22-2022 11:14-0400 Diastolic blood pressure 94 mm[Hg] Fito Gombash DO Work Phone: [facility] 06-22-2022 11:14-0400 Heart rate 79 /min Fito Gombash DO Work Phone: [facility] 06-22-2022 11:14-0400 Respiratory rate 17 /min Fito Gombash DO Work Phone: [facility] 06-22-2022 11:14-0400 SaO2% (BldA) [Mass fraction] 94 % Fito Gombash DO Work Phone: [facility] 06-22-2022 11:14-0400 Systolic blood pressure 136 mm[Hg] Fito Gombash DO Work Phone: [facility] 06-19-2022 21:45-0400 Body height 160 cm Fito Gombash DO Work Phone: [facility] 06-19-2022 21:45-0400 Body mass index (BMI) [Ratio] 25.31 kg/m2 Fito Gombash DO Work Phone: [facility] 06-19-2022 21:45-0400 Body weight 64.82 kg Fito Gombash DO Work Phone: [facility] 10-17-2021 08:00-0500 Body temperature 98.29 [degF] Deja Gordon MD Work Phone: [facility] 10-17-2021 08:00-0500 Diastolic blood pressure 96 mm[Hg] Deja Gordon MD Work Phone: [facility] 10-17-2021 08:00-0500 Heart rate 94 /min Deja Gordon MD Work Phone: [facility] 10-17-2021 08:00-0500 Respiratory rate 17 /min Deja Gordon MD Work Phone: [facility] 10-17-2021 08:00-0500 SaO2% (BldA) [Mass fraction] 94 % Deja Gordon MD Work Phone: [facility] 10-17-2021 08:00-0500 Systolic blood pressure 150 mm[Hg] Deja Gordon MD Work Phone: [facility] 10-15-2021 10:10-0500 Body height 162.6 cm Deja Gordon MD Work Phone: [facility] 10-15-2021 10:10-0500 Body mass index (BMI) [Ratio] 23.17 kg/m2 Deja Gordon MD Work Phone: [facility] 10-15-2021 10:10-0500 Body weight 61.24 kg Deja Gordon MD Work Phone: [facility] 04-10-2021 11:53-0400 Body mass index (BMI) [Ratio] 22.31 kg/m2 Leonid Dee MD Work Phone: [facility] Work Phone: 04-10-2021 11:53-0400 Body temperature 98.1 [degF] Leonid Dee MD Work Phone: [facility] Work Phone: 04-10-2021 11:53-0400 Body weight 58.97 kg Leonid Dee MD Work Phone: [email or web address] Work Phone: 04-10-2021 11:53-0400 Diastolic blood pressure 103 mm[Hg] Leonid Dee MD Work Phone: [email or web address] Work Phone: 04-10-2021 11:53-0400 Heart rate 94 /min Leonid Dee MD Work Phone: [email or web address] Work Phone: 04-10-2021 11:53-0400 Respiratory rate 20 /min Leonid Dee MD Work Phone: [email or web address] Work Phone: 04-10-2021 11:53-0400 SaO2% (BldA) [Mass fraction] 97 % Leonid Dee MD Work Phone: [email or web address] Work Phone: 04-10-2021 11:53-0400 Systolic blood pressure 171 mm[Hg] Leonid Dee MD Work Phone: [facility] Work Phone: 07-17-2020 14:02-0400 BP Diastolic 79 mm[Hg] Juan Warren [facility] , [place] 07-17-2020 14:02-0400 BP Systolic 153 mm[Hg] Juan Mckeon [facility] [place] , [place] 07-17-2020 14:02-0400 Pulse (Heart Rate) 71 /min Juan Mckeon [facility], [place] 07-17-2020 14:02-0400 Pulse Oximetry 99 % Juan Mckeon [facility] , [place] 07-17-2020 14:02-0400 Respiratory Rate 18 /min [facility] [place] [place] 07-17-2020 10:48-0400 BMI (Body Mass Index) 22.31 kg/m2 Juan Mckeon [facility], [place] 07-17-2020 10:48-0400 Body Temperature 97.81 [degF] Juan Mckeon [facility] [place] , [place] 07-17-2020 10:48-0400 Body weight 58.97 kg Juan Warren [facility] , [place] 07-17-2020 10:48-0400 Height 162.6 cm [facility] [place] 11-19-2019 12:01-0500 BP Diastolic 138 mm[Hg] [facility] [place] 11-19-2019 12:01-0500 BP Systolic 156 mm[Hg] [facility] [place] 11-19-2019 12:01-0500 Pulse (Heart Rate) 97 /min [facility] [place] 11-19-2019 11:32-0500 Pulse Oximetry 94 % [facility] [place] 11-19-2019 10:05-0500 BMI (Body Mass Index) 20.77 kg/m2 Deja Mckeon [facility] [place], [place] 11-19-2019 10:05-0500 Body Temperature 97.5 [degF] Deja Mckoen [facility] [place] 11-19-2019 10:05-0500 Body weight 54.88 kg Deja Lerma [facility] , [place] 11-19-2019 10:05-0500 Height 162.6 cm [facility] [place] 11-19-2019 10:05-0500 Respiratory Rate 22 /[facility] [place] Encounters Encounter Date Encounter Type Care Provider Facility Start: 06-27-2024 End: 06-27-2024 Patient encounter procedure Annabel Zavala MD Work Phone: [facility] Comment on above: Tear of left rotator cuff, unspecified tear extent, unspecified whether traumatic (Primary Dx) Start: 06-27-2024 End: 06-27-2024 ambulatory LEONID DEE JR Facility:[facility] Start: 06-22-2024 ambulatory LEONID DEE JR Facility:[facility] Start: 06-22-2024 End: 06-22-2024 Subsequent hospital visit by physician Xr [facility] Comment on above: Sacral spondylosis [ M47.818] Start: 06-12-2024 End: 06-12-2024 Patient encounter procedure Lavern Hidalgo APRN.CNP Work Phone: [facility] Comment on above: Sacral spondylosis ( Primary Dx); Spondylolisthesis of lumbar region Start: 06-12-2024 End: 06-12-2024 ambulatory LEONID DEE JR Facility:[facility] Start: 03-20-2024 End: 03-20-2024 Postop follow up visit related to original px Adria Lopez MD Work Phone: [facility] Comment on above: Post-operative state (Primary Dx) Start: 03-20-2024 End: 03-20-2024 ambulatory ADRIA LOPEZ [facility] Start: 03-12-2024 End: 03-12-2024 Telephone encounter Rashida RAJAN Work Phone: [facility] General [facility] Start: 03-11-2024 Telephone encounter Wanda Molina PA-C Work Phone: [employer] Comment on above: Results Start: 03-08-2024 Telephone encounter Wanda Molina PA-C Work Phone: [facility] Comment on above: Results Start: 03-06-2024 End: 03-06-2024 Nursing evaluation of patient and report Nurse Spear [facility] Work Phone: [facility] Comment on above: Urinary hesitancy (P rimary Dx) Start: 03-05-2024 End: 03-05-2024 Patient encounter procedure Wanda Molina PA-C Work Phone: [facility] Comment on above: Vaginal discharge (P rimary Dx); Dysuria Start: 02-23-2024 End: 02-23-2024 Postop follow up visit related to original px Adria Lopez MD Work Phone: [facility] Comment on above: Post-operative state (Primary Dx) Start: 02-23-2024 End: 02-23-[address] [facility] Start: 02-20-2024 Telephone encounter Adria dalton MD Work Phone: [facility] Comment on above: Post-op Problem (Po reversal Ronni 02-15) Start: 02-09-2024 End: 02-16-2024 Evaluation and management of inpatient Adria Lopez MD Work Phone: [facility] Medical Surgical Unit MSU 1E Comment on above: Colostomy in place ( CMS/HCC) (HCC) (Primary Dx); Post-op pain; Localized edema Start: 02-05-2024 End: 02-05-2024 Patient encounter procedure Rbuén Jimenes MD Work Phone: [facility] Comment on above: S/P total right hip arthroplasty (Primary Dx) Start: 02-05-2024 End: 02-05-2024 ambulatory LEONID DEE JR Facility:[facility] Start: 02-02-2024 End: 02-02-2024 ambulatory [facility] Start: 02-02-2024 End: 02-02-2024 Encounter for other preprocedural examination [facility] Start: 01-05-2024 Admission to [facility] Fernando Brady APRN - SUPER[employer] Work Phone: [facility] Comment on above: Colostomy in place ( CMS/HCC) (HCC) (Primary Dx) Start: 01-05-2024 End: 01-05-2024 ambulatory Fernando Brady ENGRAVINGS POLISHER - [employer]PER[employer] Work Phone: [facility] Surgery Start: 01-05-2024 Telephone encounter Leonid Dee MD Work Phone: [facility] Clinical Communication Comment on above: Nurse Visit Declined Start: 01-05-2024 End: 01-05-2024 Office outpatient visit 25 minutes Adria Lopez MD Work Phone: [facility] Comment on above: Colostomy in place ( CMS/HCC) (HCC) (Primary Dx) Start: 01-02-2024 End: 01-02-2024 ambulatory JEFE ARIAS [facility] Start: 01-02-2024 End: 01-02-2024 Subsequent hospital visit by physician Jefe Arias MD Work Phone: [facility] Endoscopy Start: 12-26-2023 Telephone encounter Adria dalton MD Work Phone: [facility] Start: 12-20-2023 End: 12-20-2023 Postop follow up visit related to original px Adria Lopez MD Work Phone: [facility] Surgery Comment on above: Postoperative examin ation (Primary Dx) Start: 12-20-2023 End: 12-20-2023 ambulatory ADRIA LIULUETER [facility] Start: 12-06-2023 Telephone encounter Adria dalton MD Work Phone: [facility] Surgery Comment on above: Patient Question Start: 11-29-2023 End: 11-29-2023 Patient encounter procedure Rubén Jimenes MD Work Phone: [facility] Comment on above: S/P total right hip arthroplasty (Primary Dx) Start: 11-29-2023 End: 11-29-2023 ambulatory LEONID DEE JR Facility:[facility] Start: 2023 End: 2023 Postop follow up visit related to original px Fernando Brady ENGRAVINGS POLISHER - [employer] Work Phone: [facility] Surgery Comment on above: Postoperative examin ation (Primary Dx); Postoperative pain; S/P partial colectomy Start: 2023 End: 2023 ambulatory [facility] Start: 11-17-2023 End: 11-17-2023 Postop follow up visit related to original px Rashida RAJAN Work Phone: [facility] Surgery Comment on above: Postop check (Primar y Dx); S/P colon resection Start: 11-17-2023 End: 11-17-2023 ambulatory [facility] Start: 11-14-2023 Telephone encounter Rashida RAJAN Work Phone: [facility] Start: 11-04-2023 End: 11-04-2023 Evaluation and management of inpatient No Anesthesiologist - Sb/Westley BYERS Work Phone: [facility] MAIN OR Start: 11-03-2023 End: 11-10-2023 Evaluation and management of inpatient Juan Luna DO Work Phone: [facility] Medical Surgical Unit MSU 1E Comment on above: Abdominal pain, gene ralized (Primary Dx); Diverticulitis of colon; Intestinal obstruction, unspecified cause, unspecified whether partial or complete (HCC); Postoperative pain; S/P partial colectomy Start: 11-02-2023 End: 11-02-2023 Home visit Conner Stoll PT Work Phone: [facility] Comment on above: PT AGENCY DC W VISIT Start: 10-31-2023 End: 10-31-2023 Home visit Lyudmila Prieto CLAM SHUCKER Work Phone: [facility] Comment on above: CLAM SHUCKER ROUTINE Start: 10-30-2023 End: 10-30-2023 Patient encounter procedure Rubén Jimenes MD Work Phone: [facility] Comment on above: S/P total right hip arthroplasty (Primary Dx) Start: 10-30-2023 End: 10-30-2023 ambulatory LEONID DEE Facility:[facility] Start: 10-27-2023 Home visit Molly (Rn) John medina RN Work Phone: [facility] Comment on above: CARE COORDINATION Start: 10-25-2023 End: 10-25-2023 Home visit Lyudmila Prieto CLAM SHUCKER Work Phone: [facility] Comment on above: CLAM SHUCKER ROUTINE Start: 10-23-2023 Chart abstracting Kianna Murillo LPN [facility] Comment on above: Refill Request Start: 10-20-2023 End: 10-20-2023 Home visit Molly (Rn) Frances BIRCH Work Phone: [facility] Comment on above: CARE COORDINATION CLAM SHUCKER ROUTINE Start: 10-20-2023 Telephone encounter Marcial osorio [employer] Work Phone: [facility] Comment on above: Home Care (Pain and possible fall) Start: 10-19-2023 Telephone encounter Shira coffey PT Work Phone: [facility] Comment on above: Home Care (PT SOC) Start: 10-18-2023 End: 10-18-2023 Home visit Shira Ramos PT Work Phone: [facility] Comment on above: PT SOC Start: 10-16-2023 End: 10-17-2023 ambulatory RUBÉN JIMENES Facility:[facility] Start: 10-09-2023 End: 10-09-2023 ambulatory RUBÉN JIMENES Facility:[facility] Start: 09-27-2023 Preprocedural examination done Shira Ramos PT Work Phone: [facility] Work Phone: Start: 09-27-2023 End: 09-27-2023 ambulatory CRUZ SHARMA Facility:[facility] Start: 09-27-2023 Encounter for other preprocedural examination RUBÉN JIMENES [facility] Start: 09-27-2023 End: 09-27-2023 Office outpatient visit 15 minutes Adria Lopez MD Work Phone: [facility] Comment on above: LLQ abdominal pain ( Primary Dx) Start: 09-27-2023 End: 09-27-2023 ambulatory [facility] Start: 09-25-2023 End: 09-25-2023 ambulatory RUBÉN JIMENES Facility:[facility] Start: 09-15-2023 End: 09-15-2023 ambulatory MITZI WANG Facility:[place] Start: 08-21-2023 Telephone encounter Rubén ramirez MD Work Phone: [facility] Comment on above: Appointment (Request ing sooner appt) Start: 08-02-2023 End: 08-02-2023 Office outpatient visit 25 minutes Helen Covington PA-C Work Phone: [facility] Comment on above: Intra-abdominal absc ess (CMS/HCC) (HCC) (Primary Dx); Sigmoid diverticulitis; Antibiotic drug intolerance Start: 08-02-2023 End: 08-02-2023 ambulatory [facility] Start: 07-24-2023 End: 07-24-2023 Subsequent hospital visit by physician Helen Covington PA-C Work Phone: [facility] Comment on above: Sigmoid diverticulit is; Intra-abdominal abscess (CMS/HCC) (HCC) Start: 07-24-2023 End: 07-24-2023 [facility] Start: 07-19-2023 End: 07-19-2023 Office outpatient visit 25 minutes Adria Lopez MD Work Phone: [facility] Comment on above: Sigmoid diverticulit is (Primary Dx) Start: 07-19-2023 End: 07-19-2023 ambulatory [facility] Start: 07-11-2023 Telephone encounter The[facility]barra LPN [facility] Comment on above: Hospital Follow-up Start: 07-10-2023 Orders Only Helen Covington PA-C Work Phone: [facility] Infectious Dis Comment on above: Sigmoid diverticulit is (Primary Dx); Intra-abdominal abscess (CMS/HCC) (HCC) Start: 06-23-2023 End: 07-10-2023 Evaluation and management of inpatient Vita Carey DO Work Phone: [facility] Cardiac Progressive Care Unit PCU 2E Comment on above: Diverticulitis (Prim daphney Dx); Generalized abdominal pain Start: 05-01-2023 End: 05-01-2023 Patient encounter procedure Ruébn Jimenes MD Work Phone: [facility] Comment on above: Primary osteoarthrit is of right hip (Primary Dx) Start: 04-20-2023 End: 04-20-2023 Patient encounter procedure Annabel Zavala MD Work Phone: [facility] Comment on above: Tear of left rotator cuff, unspecified tear extent, unspecified whether traumatic (Primary Dx) Start: 01-23-2023 Telephone encounter Orthopedics [facility] Comment on above: Appointment Start: 01-19-2023 Transcribe Orders Leonid Dee MD Work Phone: [facility] Central Scheduling Comment on above: Pain in right hip (P rimary Dx) Start: 10-06-2022 End: 10-06-2022 Patient encounter procedure Annabel Zavala MD Work Phone: [facility] Comment on above: Tear of left rotator cuff, unspecified tear extent, unspecified whether traumatic (Primary Dx) Start: 06-20-2022 End: 06-22-2022 Evaluation and management of inpatient Leonid Dee [facility] Start: 06-19-2022 End: 06-22-2022 Evaluation and management of inpatient Fito Marti DO Work Phone: [facility] Comment on above: COPD exacerbation (H CC) (Primary Dx); Chest wall pain Start: 05-19-2022 End: 05-19-2022 Patient encounter procedure Annabel Zavala MD Work Phone: [facility] Comment on above: 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 (Primary Dx) Start: 01-13-2022 End: 01-15-2022 Evaluation and management of inpatient IFTIKHARJie DAI [facility] Start: 10-15-2021 End: 10-17-2021 Evaluation and management of inpatient Deja Gordon MD Work Phone: [facility] Comment on above: Non-intractable vomi ting with nausea, unspecified vomiting type (Primary Dx); Constipation, unspecified constipation type; Generalized abdominal pain; Dizziness Start: 05-15-2021 End: 05-15-2021 Subsequent hospital visit by physician Wesley Lopez MD Work Phone: [facility] Comment on above: Arrived Start: 04-24-2021 End: 04-24-2021 Subsequent hospital visit by physician Leonid Dee MD Work Phone: [facility] Comment on above: Arrived Start: 04-10-2021 End: 04-10-2021 Emergency department patient visit Leonid Dee MD Work Phone: [facility] Comment on above: Cervical radiculopat hy (Primary Dx) Start: 07-17-2020 End: 07-17-2020 Emergency department patient visit Juan Warren Work Phone: [facility] Comment on above: Chest pain, unspecif ied type (Primary Dx) Start: 11-19-2019 End: 11-19-2019 Emergency department patient visit Deja Nehemias Lerma Work Phone: [facility] Comment on above: COPD exacerbation (H CC) (Primary Dx) Start: 01-09-2019 End: 01-09-2019 Patient encounter procedure WESLEY LOPEZ Facility:[facility] End: 03-05-2024 Preprocedural examination done Wanda Molina PA-C Work Phone: [facility] Procedures Date Procedure Procedure Detail Performing Clinician Start: 06-27-2024 Arthrocentesis aspir &/inj major jt/bursa w/o us Annabel Zavala MD Work Phone: Start: 03-20-2024 Follow-up visit JEFE RE RICK Start: 02-23-2024 Follow-up visit JEFE RE RICK Start: 02-16-2024 Dup-scan xtr veins unilateral/limited study Lisa Mabry MD Work Phone: Start: 02-16-2024 Basic metabolic pane l calcium total Dat Wayne MD Work Phone: Start: 02-15-2024 End: 02-15-2024 Basic metabolic panel calcium total Dat Wayne MD Work Phone: Start: 02-14-2024 Comprehensive metabo lic panel April Encinas MD Work Phone: Start: 02-13-2024 Comprehensive metabo lic panel April Encinsa MD Work Phone: Start: 02-12-2024 Comprehensive metabo lic panel April Encinas MD Work Phone: Start: 02-11-2024 Basic metabolic pane l calcium total Dat Wayne MD Work Phone: Start: 02-10-2024 Basic metabolic pane l calcium total Dat Wayne MD Work Phone: Start: 02-09-2024 Level iv surg pathol ogy gross&microscopic exam Adria Lopez MD Work Phone: Start: 02-09-2024 End: 02-09-2024 Clsr ntrstm lg/sm rescj & colorectal anastomosis Adria Lopez MD Work Phone: Start: 02-02-2024 Antibody screen JEFE RE RICK Comment on above: Performed By: #### L [id number] ####Chief Information Officer: FREDRICK RAJAN ([id number])[facility] ([facility])[address] Start: 01-05-2024 Follow-up visit JEFE RE RICK Start: 01-02-2024 Colonoscopy Jefe cm MD Work Phone: Start: 12-20-2023 Follow-up visit JEFE RE RICK Start: 2023 Follow-up visit JEFE RE RICK Start: 11-17-2023 Follow-up visit JEFE RE RICK Start: 11-10-2023 Comprehensive metabo lic panel Ирина Toledo MD Work Phone: Start: 11-10-2023 Manual differential performed [Presence] in Blood Ирина Toledo MD Work Phone: Start: 11-09-2023 End: 11-09-2023 Comprehensive metabolic panel Ирина Toledo MD Work Phone: Start: 11-08-2023 Comprehensive metabo lic panel Ирина Toledo MD Work Phone: Start: 11-07-2023 Comprehensive metabo lic panel Ирина Toledo MD Work Phone: Start: 11-06-2023 Comprehensive metabo lic panel Ирина Toledo MD Work Phone: Start: 11-06-2023 Drug screen quantita tive vancomycin Andressapedro Carpenter Work Phone: Start: 11-04-2023 Urinalysis complete panel - Urine Michael Berumen DO Work Phone: Start: 11-04-2023 Urnls dip stick/tabl et reagent auto microscopy Michael Berumen DO Work Phone: Start: 11-04-2023 Basic metabolic pane l calcium total Adria Lopez MD Work Phone: Start: 11-04-2023 Level v surg patholo gy gross&microscopic exam Adria Lopez MD Work Phone: Start: 11-04-2023 AEROBIC AND ANAEROBI C CULTURE WITH STAIN Adria Lopez MD Work Phone: Start: 11-04-2023 Culture bacterial an y source anaerobic iso&id Adria Lopez MD Work Phone: Start: 11-04-2023 Tap block bilateral by injection(s) Juan Minaya CRNA Work Phone: Start: 11-04-2023 NM AN ELECTIVE ENDOT SOILA AIRWAY Juan Minaya ELECTRONIC ENGRAVER Work Phone: Start: 11-04-2023 End: 11-04-2023 Exploratory laparotomy celiotomy w/wo biopsy spx Adria Lopez MD Work Phone: Start: 11-03-2023 Assay of troponin quantitative Michael Berumen DO Work Phone: Start: 11-03-2023 Ct abdomen & pelvis w/contrast material Michael Berumen DO Work Phone: Start: 11-03-2023 Bacteria identified in Blood by Culture Michael Berumen DO Work Phone: Start: 11-03-2023 SARS-COV-2, FLU A/B, AND RSV COMBO Michael Berumen DO Work Phone: Start: 11-03-2023 Antibody screen JEFE YUNIOR NICEY Comment on above: Performed By: #### L [id number] ####Chief Information Officer: FREDRICK RAJAN ([phone])[facility] ([facility])[address] [place] [address] Start: 11-03-2023 ABO and Rh group [Ty pe] in Blood by Confirmatory method Michael Berumen DO [employer] Phone: Start: 11-03-2023 End: 11-03-2023 BLOOD CULTURE IDENTIFICATION - AEROBIC Michael Berumen DO Work Phone: Start: 11-03-2023 Blood typing serologic abo Michael Berumen DO [employer] Phone: Start: 11-03-2023 End: 11-03-2023 Basic metabolic panel calcium total Michael Berumen DO [employer] Phone: Start: 11-03-2023 Manual differential performed [Presence] in Blood Michael Berumen DO [employer] Phone: Start: 11-03-2023 PATHOLOGY REVIEW Isidoro Berumen DO Work Phone: Start: 11-03-2023 Radiologic exam ches t single view Michael Berumen DO [employer] Phone: Start: 11-03-2023 Ecg routine ecg w/le ast 12 lds trcg only w/o i&r Juan Luna DO Work Phone: Start: 09-27-2023 Follow-up visit Follow-up ADRIA LOPEZ Start: 08-02-2023 Follow-up visit JEFE CABRERA Start: 07-19-2023 Follow-up visit JEFE CABRERA Start: 07-10-2023 Basic metabolic pane l calcium total Ryan Naik MD Work Phone: Start: 07-09-2023 Basic metabolic pane l calcium total Ryan Naik MD Work Phone: Start: 07-09-2023 C-reactive protein Young Matos MD Work Phone: Start: 07-08-2023 Basic metabolic pane l calcium total Ryan Naik MD Work Phone: Start: 07-08-2023 Manual differential performed [Presence] in Blood Ryan Naik MD Work Phone: Start: 07-06-2023 Urinalysis complete panel - Urine Helen Covington PA-C Work Phone: Start: 07-06-2023 Urnls dip stick/tabl et rgnt auto w/o microscopy Helen Covington PA-C Work Phone: Start: 07-06-2023 Comprehensive metabo lic panel April Encinas MD Work Phone: Start: 07-05-2023 Ct abdomen & pelvis w/contrast material Ryan Naik MD Work Phone: Start: 07-05-2023 Comprehensive metabo lic panel April Encinas MD Work Phone: Start: 07-04-2023 Comprehensive metabo lic panel April Encinas MD Work Phone: Start: 06-30-2023 Comprehensive metabo lic panel Thu Hogue MD Work Phone: Start: 06-29-2023 Comprehensive metabo lic panel Thu Hogue MD Work Phone: Start: 06-28-2023 Assay of lactate Nydia Jorgensen MD Work Phone: Start: 06-28-2023 End: 06-28-2023 C-reactive protein Nydia Jorgensen MD Work Phone: Start: 06-28-2023 Comprehensive metabo lic panel Thu Hogue MD Work Phone: Start: 06-28-2023 Iadna-dna/rna gi pth gn multiplex probe tq 12- Blair Wing MD Work Phone: Start: 06-27-2023 Ct abdomen & pelvis w/contrast material Espinoza Shay MD Work Phone: Start: 06-27-2023 End: 06-27-2023 Comprehensive metabolic panel Thu Hogue MD Work Phone: Start: 06-26-2023 Comprehensive metabo lic panel Thu Hogue MD Work Phone: Start: 06-25-2023 Comprehensive metabo lic panel Thu Hogue MD Work Phone: Start: 06-24-2023 Comprehensive metabo lic panel Thu Hogue MD Work Phone: Start: 06-23-2023 Urinalysis complete panel - Urine Klever Crawford MD Work Phone: Start: 06-23-2023 Urnls dip stick/tabl et reagent auto microscopy Klever Crawford MD Work Phone: Start: 06-23-2023 Ct abdomen & pelvis w/contrast material Klever Crawford MD Work Phone: Start: 06-23-2023 End: 06-23-2023 Comprehensive metabolic panel Klever Crawford MD Work Phone: Start: 04-20-2023 Arthrocentesis aspir &/inj major jt/bursa w/o us Annabel Zavala MD Work Phone: Start: 10-06-2022 Arthrocentesis aspir &/inj major jt/bursa w/o us Annabel Zavala MD Work Phone: Start: 06-22-2022 End: 06-22-2022 Gluc bld gluc mntr dev cleared fda spec home use Michael Blancas MD Work Phone: Start: 06-21-2022 Gluc bld gluc mntr d ev cleared fda spec home use Michael Blancas MD Work Phone: Start: 06-21-2022 Us abdominal real ti me w/image limited Doni Guzman MD Work Phone: Start: 06-21-2022 Assay of troponin quantitative Doni Guzman MD Work Phone: Start: 06-21-2022 Echo tthrc r-t 2d w/wom-mode compl spec&colr d Doni Guzman MD Work Phone: Start: 06-21-2022 Gluc bld gluc mntr d ev cleared fda spec home use Michael Blancas MD Work Phone: Start: 06-21-2022 Basic metabolic pane l calcium total Mani Ilodi DO Work Phone: Start: 06-21-2022 Ct angiography chest w/contrast/noncontrast Nydia Jorgensen MD Work Phone: Start: 06-20-2022 Ecg routine ecg w/le ast 12 lds w/i&r Annabel Armstrong DO Work Phone: Start: 06-20-2022 End: 06-20-2022 Gluc bld gluc mntr dev cleared fda spec home use Fito Maik Néstor DO Work Phone: Start: 06-20-2022 Radiologic exam ches t single view Annabel Armstrong DO Work Phone: Start: 06-20-2022 Gluc bld gluc mntr d ev cleared fda spec home use Michael Blancas MD Work Phone: Start: 06-20-2022 Gluc bld gluc mntr d ev cleared fda spec home use Michael Blancas MD Work Phone: Start: 06-20-2022 BASIC METABOLIC PANE L W/ REFLEX TO MG FOR LOW K Lluvia Burr [employer]INGS [employer] Work Phone: Start: 06-20-2022 Blood count complete auto&auto difrntl wbc Lluvia Burr [employer] Work Phone: Start: 06-19-2022 COVID-19, FLU A/B, A ND RSV COMBO Fito A Jacked DO Work Phone: Start: 06-19-2022 End: 06-19-2022 Comprehensive metabolic panel Fito Pleitez [employer] Work Phone: Start: 06-19-2022 Radiologic exam ches t single view Fito Pleitez [employer] Work Phone: Start: 06-19-2022 Ecg routine ecg w/le ast 12 lds w/i&r Fito A Jacked DO Work Phone: Start: 05-19-2022 Arthrocentesis aspir &/inj major jt/bursa w/o us Annabel Zavala MD Work Phone: Start: 10-17-2021 Mri brain brain stem w/o w/contrast material Mounika Smith PA-C Work Phone: Start: 10-17-2021 Comprehensive metabo lic panel April Encinas MD Work Phone: Start: 10-16-2021 Blood count complete auto&auto difrntl wbc Mounika Smith PA-C Work Phone: Start: 10-15-2021 Urnls dip stick/tabl et rgnt auto w/o microscopy Nydia Verma APRN [employer] Work Phone: Start: 10-15-2021 Computed tomography of abdomen and pelvis with contrast Nydia Verma APRN - [employer] Work Phone: Start: 10-15-2021 Ct head/brain w/o co ntrast material Nydia Verma [employer] Work Phone: Start: 10-15-2021 Comprehensive metabo lic panel Nydia Verma [employer] Work Phone: Start: 10-15-2021 Manual Differential panel - Blood Nydia Verma [employer]RA[employer]INGS [employer]ER - [employer] Work Phone: Start: 10-15-2021 Ecg routine ecg w/le ast 12 lds w/i&r Nydia Verma [employer] Work Phone: Start: 05-15-2021 Mri spinal canal cer vical w/o contrast reesel Wesley Lopez MD Work Phone: Start: 04-10-2021 Radex spine cervical 2 or 3 views Nathaly RAJAN Work Phone: Start: 07-17-2020 ADD ON LAB TEST [facility] Work Phone: Start: 07-17-2020 Urnls dip stick/tabl et rgnt auto w/o microscopy [facility] Work Phone: Start: 07-17-2020 Ct angiography chest w/contrast/noncontrast [facility] Work Phone: Start: 07-17-2020 Radiologic exam ches t single view [facility] Work Phone: Start: 07-17-2020 Assay of troponin quantitative [facility] Work Phone: Start: 07-17-2020 Basic metabolic pane l calcium total [facility] Work Phone: Start: 07-17-2020 Blood count complete auto&auto difrntl wbc [facility] Work Phone: Start: 07-17-2020 Fibrin dgradj produc ts d-dimer quantitative [facility] Work Phone: Start: 07-17-2020 Ecg routine ecg w/le ast 12 lds w/i&r [facility] Work Phone: Start: 11-19-2019 Assay of troponin quantitative Yue Foster Work Phone: Start: 11-19-2019 Blood count complete auto&auto difrntl wbc Yue Foster Work Phone: Start: 11-19-2019 Comprehensive metabo lic panel Yue Foster Work Phone: Start: 11-19-2019 Iaadiadoo influenza Amita priya Foster Work Phone: Start: 11-19-2019 Radiologic exam ches t 2 views Yue Foster Work Phone: Start: 11-19-2019 Ecg routine ecg w/le ast 12 lds w/i&r Yue oFster Work Phone: Start: 01-09-2019 Adult depression scr eening assessment Annabel Zavala MD Work Phone: Start: 01-10-2018 Colonoscopy Annabel horner MD Work Phone: Plan of Treatment Date Care Activity Detail Author Start: 01-01-2034 Screening for malignant neoplasm of colon [facility] Start: 01-11-2028 Colonoscopy COLONOSCOPY [facility] Start: 01-11-2028 COLORECTAL CANCER SCREENING COLORECTAL CANCER SCREENING [facility] Start: 01-11-2028 Screening for malignant neoplasm of colon [facility] Start: 02-15-2027 Diabetes Screening Diabetes Screening [facility] Start: 02-01-2027 Diabetes Screening Diabetes Screening [facility] Start: 11-10-2026 Diabetes Screening Diabetes Screening [facility] Start: 10-17-2026 Diabetes Screening Diabetes Screening [facility] Start: 06-27-2024 End: 06-27-2024 Patient encounter procedure 06/27/2024 11:15 AM EDT Office Visit [facility] [address] [place] [address] Annabel Zavala MD [address] [place] [address] L Shoulder - fabiana inject [facility] Comment on above: L Shoulder - fabiana inject Start: 05-19-2024 Covid-19 Vaccine () Covid-19 Vaccine () [facility] Start: 05-19-2024 Influenza vaccination [facility] Start: 03-20-2024 End: 03-20-2024 Patient encounter procedure 03/20/2024 9:30 AM EDT Office Visit [facility] Surgery [address] [place] [phone] Adria Lopez MD [address] [facility] [address] [place] [address] [facility] Surgery Start: 03-05-2024 End: 06-04-2024 CULTURE, AEROBIC BACTERIA CULTURE, AEROBIC BACTERIA Microbiology Routine Vaginal discharge Expected: 03/05/2024, Expires: 06/04/2024 [facility] Work Phone: Comment on above: Expected: 03/05/2024, Expires: Start: 02-23-2024 End: 02-23-2024 Patient encounter procedure 02/23/2024 11:15 AM EDT Office Visit [facility] [address] [facility] [address] [place] [phone] Adria Lopez MD [address] [facility] [address] [place] [address] [facility] Surgery Start: 02-09-2024 End: 02-09-2024 Admission to same day surgery center 02/09/2024 7:30 AM EDT - 02/09/2024 10:30 AM EDT Surgery [facility] MAIN OR [address] [place] [phone] Adria Lopez MD [address] [facility] [address] [place] [address] ROBOTIC CLOSURE OF COLOSTOMY [69032 (CPT )] [facility] MAIN OR Comment on above: ROBOTIC CLOSURE OF COLOSTOMY [18207 (CPT )] Start: 02-09-2024 End: 02-09-2024 Clsr ntrstm lg/sm rescj & colorectal anastomosis CLOSURE OF ENTEROSTOMY WITH RESECTION AND COLORECTAL ANASTOMOSIS (CLOSURE RONNI PROCEDURE) Colostomy in place ([facility]/HCC) (HCC) 02/09/2024 7:30 AM EDT [facility] Operating Room Start: 02-09-2024 Subsequent hospital visit by physician 02/09/2024 7:30 AM EDT Hospital Encounter [facility] MAIN OR [address] [place] [phone] Adria Lopez MD [address] [facility] [address] [place] [address] [facility] MAIN OR Start: 02-02-2024 End: 02-02-[address] [facility] 02/02/2024 11:00 AM EDT Pre-Admission Testing [facility] Pre-Admit Testing [address] [place] [phone] [facility] Pre-Admit Testing Start: 01-05-2024 End: 01-05-2024 Patient encounter procedure 01/05/2024 11:15 AM EDT Office Visit [facility] [address] [phone] Adria Lopez MD [address] [address] [facility] Start: 01-02-2024 End: 01-02-2024 Admission to same day surgery center [facility] Endoscopy Comment on above: COLONOSCOPY [05260 (CPT )] COLONOSCOPY With Pos sible Biopsy/ Polypectomy/ Coagulation/ Electrocautery/ Endotracheal Intubation/ Anesthesia [51511 (CPT )] Start: 01-02-2024 Subsequent hospital visit by physician 01/02/2024 11:00 AM EDT Hospital Encounter [facility] Endoscopy [address] [place] [address] Jefe Arias MD [address] [place] [address] [facility] Endoscopy Start: 01-02-2024 End: 01-02-2024 Colonoscopy flx dx w/collj spec when pfrmd [facility] Gastroenterology Start: 12-20-2023 End: 12-20-2023 Patient encounter procedure 12/20/2023 9:30 AM EDT Office Visit [facility] [address] [facility] [address] [place] [address] Adria Lopez MD [address] [facility] [address] [place] [address] [facility] Start: 2023 End: 2023 Patient encounter procedure 2023 10:15 AM EST Office Visit [facility] [address] [place] [phone] Adria Lopez MD [address] [facility] [address] [place] [address] [facility] Start: 11-17-2023 End: 11-17-2023 Patient encounter procedure 11/17/2023 10:00 AM EST Office Visit [facility] [address] [place] [phone] Adria Lopez MD [address] [facility] [address] [place] [address] [facility] Start: 11-04-2023 End: 11-04-2023 Exploratory laparotomy celiotomy w/wo biopsy spx EXPLORATORY LAPAROTOMY Intestinal obstruction, unspecified cause, unspecified whether partial or complete (HCC) 11/04/2023 1:36 AM EST [facility] Operating Room Start: 09-18-2023 Advance Directive Discussion Advance Directive Discussion [facility] Start: 09-18-2023 Behavioral Health Screening Behavioral Health Screening [facility] Start: 09-18-2023 Depression Assessment Depression Assessment [facility] Start: 08-02-2023 End: 08-02-2023 Patient encounter procedure 08/02/2023 2:00 PM EST Office Visit [facility] [address] [place] [phone] Helen Covington PA-C [address] [facility] [address] [place], [place] [phone] [facility] Start: 07-24-2023 End: 07-24-2023 Patient encounter procedure 07/24/2023 12:15 PM EST Appointment [facility] CT [address] [place] [phone] [facility] [address] Start: 07-24-2023 Subsequent hospital visit by physician 07/24/2023 12:15 PM EST Hospital Encounter [facility] CT [address] [place] [phone] Helen Covington PA-C [address] [facility] [address] [place] [address] [facility] [address] Start: 07-19-2023 End: 07-19-2023 Patient encounter procedure 07/19/2023 9:00 AM EDT Office Visit [facility] [address] [place] [phone] Adria Lopez MD [address] [facility] [address] [place], [place] [phone] [facility] Start: 07-10-2023 End: 07-10-2024 CT Abdomen and Pelvis W contrast IV CT abdomen pelvis w contrast Imaging Routine Sigmoid diverticulitis Intra-abdominal abscess (CMS/HCC) (HCC) Expected: 07/10/2023, Expires: 07/10/2024 [facility] Work Phone: Comment on above: Expected: 07/10/2023, Expires: Start: 05-19-2023 COVID-19 Vaccine () COVID-19 Vaccine () [facility] Start: 05-19-2023 Influenza vaccination [facility] Start: 09-18-2022 ADVANCE DIRECTIVE DISCUSSION ADVANCE DIRECTIVE DISCUSSION [facility] Start: 09-18-2022 DEPRESSION ASSESSMENT DEPRESSION ASSESSMENT [facility] Start: 05-19-2022 Influenza vaccination INFLUENZA (#1) [facility] Start: 04-18-2022 Influenza vaccination Flu vaccine (#1) [facility] Start: 03-20-2022 Medicare Annual Wellness (AWV) Medicare Annual Wellness (AWV) [facility] Start: 03-07-2022 Screening for malignant neoplasm of breast Breast cancer screen [facility] Start: 11-21-2021 COVID-19 VACCINE (4 - Booster for Moderna series) COVID-19 VACCINE (4 - Booster for Moderna series) [facility] Start: 09-18-2021 ADVANCE DIRECTIVE DISCUSSION ADVANCE DIRECTIVE DISCUSSION [facility] Start: 09-18-2021 COVID-19 VACCINE (4 - Booster for Moderna series) COVID-19 VACCINE (4 - Booster for Moderna series) [facility] Start: 09-18-2021 COVID-19 VACCINE (4 - Moderna series) COVID-19 VACCINE (4 - Moderna series) [facility] Start: 05-23-2021 COVID-19 Vaccine (3 - Booster for Moderna series) COVID-19 Vaccine (3 - Booster for Moderna series) [facility] Start: 05-19-2021 Influenza vaccination Flu vaccine (#1) [facility] Start: 11-21-2020 BONE DENSITY BONE DENSITY [facility] Start: 11-21-2020 Bone Density Screening Bone Density Screening [facility] Start: 11-21-2020 Pneumococcal 65+ years Vaccine (1 of 1 - PPSV23) Pneumococcal 65+ years Vaccine (1 of 1 - PPSV23) [facility] Start: 11-21-2020 Screening for osteoporosis Bone Density Screening [facility] Start: 05-19-2020 Influenza vaccination Flu vaccine (#1) [facility] Start: 01-10-2020 Adult depression screening assessment DEPRESSION SCREENING [facility] Start: 05-19-2019 Influenza vaccination Flu vaccine (#1) [facility] Start: 12-01-2018 FECAL OCCULT BLOOD FECAL OCCULT BLOOD [facility] Start: 12-01-2018 Screening for malignant neoplasm of cervix Cervical Cancer Screening [facility] Start: 12-01-2018 Screening for malignant neoplasm of colon Fecal Occult Blood [facility] Start: 2015 RSV Immunization aged 60 or older (1 - 1-dose 60+ series) RSV Immunization aged 60 or older (1 - 1-dose 60+ series) [facility] Start: 2015 RSV Vaccine (1 - 1-dose 60+ series) RSV Vaccine (1 - 1-dose 60+ series) [facility] Start: 2015 RSV Vaccine (1 - Risk 60-74 years 1-dose series) RSV Vaccine (1 - Risk 60-74 years 1-dose series) [facility] Start: 11-21-2010 Screening for osteoporosis DEXA (modify frequency per FRAX score) [facility] Start: 11-21-2005 Breast cancer screen Breast cancer screen [place] Start: 11-21-2005 Colon cancer screen colonoscopy Colon cancer screen colonoscopy [place] Start: 11-21-2005 Screening for malignant neoplasm of breast Breast cancer screen [place] Start: 11-21-2005 Screening for malignant neoplasm of colon Colon cancer screen colon[place] Start: 11-21-2005 Shingles Vaccine (1 of 2) Shingles Vaccine (1 of 2) [facility] Start: 11-21-2005 SHINGRIX VACCINE (1 of 2) SHINGRIX VACCINE (1 of 2) [facility] Start: 11-21-2005 Zoster Vaccines (1 of 2) Zoster Vaccines (1 of 2) [facility] Start: 11-21-2000 COLOGUARD (FIT-DNA) COLOGUARD (FIT-DNA) [facility] Start: 11-21-[address] COLONOGRAPHY [facility] Start: 11-21-2000 DIABETES SCREEN DIABETES SCREEN [facility] Start: 11-21-2000 Diabetes Screening Diabetes Screening [facility] Start: 11-21-2000 Lipid 1996 panel - Serum or Plasma Lipid Screening [facility] Start: 11-21-2000 Lipid panel Lipid Screening [facility] Start: 11-21-2000 LIPID SCREEN LIPID SCREEN [facility] Start: 11-21-2000 Screening for malignant neoplasm of colon [facility] Start: 11-21-2000 SIGMOIDOSCOPY SIGMOIDOSCOPY [facility] Start: 1995 Lipid panel [facility] Start: 1995 Lipid screen Lipid screen [place] Start: 1995 Mammography [facility] Start: 1995 Screening for malignant neoplasm of breast [facility] Start: 11-21-1990 Diabetes screen Diabetes screen [facility] Start: 11-21-1985 Screening for malignant neoplasm of cervix [facility] Start: 11-21-1985 Zoledronic acid therapy Alpha-1 Antitrypsin Deficiency Screening [facility] Start: 11-21-1976 Cervical cancer screen Cervical cancer screen [place] Start: 11-21-1976 Screening for malignant neoplasm of cervix [facility] Start: 11-21-1974 DTaP/Tdap/Td vaccine (1 - Tdap) DTaP/Tdap/Td vaccine (1 - Tdap) [facility] Start: 11-21-1974 DTaP/Tdap/Td Vaccines (1 - Tdap) DTaP/Tdap/Td Vaccines (1 - Tdap) [facility] Start: 11-21-1974 Shingrix Vaccine (1 of 2) Shingrix Vaccine (1 of 2) [facility] Start: 11-21-1974 Urine microalbumin profile [facility] Start: 11-21-1974 Zoster Vaccines (1 of 2) Zoster Vaccines (1 of 2) [facility] Start: 11-21-1973 Annual PCP Team Chronic Disease Visit Annual PCP Team Chronic Disease Visit [facility] Start: 11-21-1973 BP Controlled (<130/80) BP Controlled (<130/80) [facility] Start: 11-21-1973 Diabetes mellitus screening Diabetes Screening [facility] Start: 11-21-1973 HEPATITIS C SCREENING HEPATITIS C SCREENING [facility] Start: 11-21-1973 Hepatitis C screening [facility] Start: 11-21-1973 Spirometry Spirometry [facility] Start: 11-21-1970 HIV screen HIV screen [place] Start: 11-21-1970 HIV screening HIV screen [facility] Start: 1967 Depression Screen Depression Screen [facility] Start: 1967 Depression Screening Depression Screening [facility] Start: 11-21-1966 DTaP/Tdap/Td vaccine (1 - Tdap) DTaP/Tdap/Td vaccine (1 - Tdap) [place] Start: 11-21-1961 Pneumococcal 0-64 years Vaccine (1 of 1 - PPSV23) Pneumococcal 0-64 years Vaccine (1 of 1 - PPSV23) [place] Start: 11-21-1961 Pneumococcal 65+ years Vaccine (1 - PCV) Pneumococcal 65+ years Vaccine (1 - PCV) [facility] Start: 11-21-1961 PNEUMOCOCCAL: 65+ (1 - PCV) PNEUMOCOCCAL: 65+ (1 - PCV) [facility] Start: 1955 Hepatitis C screen Hepatitis C screen [place] Start: 1955 Hepatitis C screening Hepatitis C screen [facility] Start: 1955 Lipid panel Lipid Panel [facility] Start: 1955 Medicare Annual Wellness (AWV) Medicare Annual Wellness (AWV) [facility] Start: 1955 Screening for malignant neoplasm of colon [facility] Start: 1955 Screening for osteoporosis Bone Density Scan [employer] [facility] End: 11-09-2023 ARUP [id number] Anaerobic IVÁN - Miscellaneous Test [facility] Work Phone: Comment on above: Once (Lab) for 1 Occurrences starting until 11/09/2023 End: 11-03-2023 Bacteria identified in Blood by Culture [facility] Comment on above: STAT (Lab) for 1 Occurrences starting until 11/03/2023, 1 completed Bacteria identified in Urine by Culture URINE CULTURE Microbiology Routine Dysuria Ordered: 03/05/2024 [facility] Comment on above: Ordered: 03/05/2024 End: 06-22-2022 CBC W Auto Differential panel - Blood CBC with Auto Differential Lab Routine Tomorrow AM for 1 Occurrences starting 06/22/2022 until 06/22/2022 [facility] Work Phone: Comment on above: Tomorrow AM for 1 Occurrences starting 1 until 06/22/2022 End: 06-22-2022 Comprehensive Metabolic Panel w/ Reflex to MG Comprehensive Metabolic Panel w/ Reflex to MG Lab Routine Tomorrow AM for 1 Occurrences starting 06/22/2022 until 06/22/2022 [facility] Work Phone: Comment on above: Tomorrow AM for 1 Occurrences starting 1 until 06/22/2022 End: 07-24-2023 CT Abdomen and Pelvis W contrast IV [facility] Work Phone: Comment on above: Once for 1 Occurrences starting 07/24/20 until 07/24/2023 End: 07-17-2020 Culture, Urine Culture, Urine Microbiology STAT Once for 1 Occurrences starting 07/17/2020 until 07/17/2020 [facility] Comment on above: Once for 1 Occurrences starting 07/17/20 20 until 07/17/2020 Culture, Urine Culture, Urine Microbiology STAT 07/17/2020 1:05 PM EDT [facility] [place], [place] EKG 12 Lead - Chest Pain [facility], [place] Glucose [Mass/volume ] in Serum or Plasma [facility] Work Phone: Comment on above: 4X Daily (AC & HS) until discontinued st arting 06/20/2022 As Needed until disc ontinued starting 06/20/2022 End: 11-03-2023 Hemoglobin.gastrointe stinal.lower [Presence] in Stool by Immunoassay --1st specimen Occult blood x 1, stool Microbiology STAT STAT (Lab) for 1 Occurrences starting 11/03/2023 until 11/03/2023 [facility] Work Phone: Comment on above: STAT (Lab) for 1 Occurrences starting until 11/03/2023 INJECTION HIP JOINT (AG) INJECTION HIP JOINT (AG) Radiology Routine Primary osteoarthritis of right hip Ordered: 05/01/2023 [facility] Work Phone: Comment on above: Ordered: 05/01/2023 End: 04-24-2021 MRI UPPER EXTREMITY LEFT W JT WO CONTRAST MRI UPPER EXTREMITY LEFT W JT WO CONTRAST Imaging Routine Once for 1 Occurrences starting 04/24/2021 until 04/24/2021 [facility] Work Phone: Comment on above: Once for 1 Occurrences starting 04/24/20 21 until 04/24/2021 MRI UPPER EXTREMITY LEFT W JT WO CONTRAST MRI UPPER EXTREMITY LEFT W JT WO CONTRAST Imaging Routine 04/24/2021 9:45 AM EDT [facility] Work Phone: OUTSIDE PROCEDURE SCAN OUTSIDE PROCEDURE SCAN Procedures Ordered: 07/21/2023 [facility] Comment on above: Ordered: 07/21/2023 Oxygen therapy [Minimum Data Set] Initiate Oxygen Therapy Protocol Respiratory Care Routine Daily until discontinued starting 10/15/2021 [facility] Work Phone: Comment on above: Daily until discontinued starting 2021 Oxygen therapy [Minimum Data Set] Initiate Oxygen Therapy Protocol Respiratory Care Routine Daily until discontinued starting 06/19/2022 [facility] Work Phone: Comment on above: Daily until discontinued starting 2021 Peak flow pre- and post-treatment Peak flow pre- and post-treatment Respiratory Care Routine Daily until discontinued starting 06/19/2022 [facility] Work Phone: Comment on above: Daily until discontinued starting 2021 Radex hip unilateral with pelvis 1 view XR HIP 1V UNIL W PELVIS WHEN PERFORMED (AG) Radiology Routine Primary osteoarthritis of right hip Ordered: 04/30/2023 [facility] Work Phone: Comment on above: Ordered: 04/30/2023 SURESWAB(R) ADV LAURA VAGINITIS (CV), TMA SURESWAB(R) ADV LAURA VAGINITIS (CV), TMA Lab Routine Vaginal discharge Ordered: 03/05/2024 [facility] Comment on above: Ordered: 03/05/2024 End: 06-21-2022 Troponin I.cardiac [Mass/volume] in Serum or Plasma Troponin Lab Timed Every 4 Hours (Lab) for 2 Occurrences starting 06/21/2022 until 06/21/2022, 1 completed [facility] Work Phone: Comment on above: Every 4 Hours (Lab) for [address] arting 06/21/2022 until 06/21/2022, 1 completed End: 06-22-2022 Troponin I.cardiac [Mass/volume] in Serum or Plasma Troponin Lab Timed Tomorrow AM for 1 Occurrences starting 06/22/2022 until 06/22/2022 [facility] Work Phone: Comment on above: Tomorrow AM for 1 Occurrences starting 1 until 06/22/2022 End: 07-12-2025 XR Lumbar spine Views W flexion and W extension XR LUMBAR MOTION 4V AP/LAT/ FLEX/EXT Radiology Routine Sacral spondylosis Spondylolisthesis of lumbar region 1 Occurrences starting 06/12/2024 until 07/12/2025 [facility] Work Phone: Comment on above: 1 Occurrences starting 06/12/2024 until 07/12/2025 End: 06-22-2024 XR Lumbar spine Views W flexion and W extension [facility] Work Phone: Comment on above: 1 Occurrences starting 06/22/2024 until 06/22/2024 XR Pelvis AP XR PELVIS 1V AP Radiology Routine S/P total right hip arthroplasty Ordered: 10/30/2023 [facility] Work Phone: Comment on above: Ordered: 10/30/2023 [facility] Immunizations Immunization Date Immunization Notes Care Provider Jon torres 07-07-2022 influenza (HD-IIV4) vaccine, age 65+ yr, high dose, quadrivalent, PF (FLUZONE HIGH-DOSE) Wanda Molina PA-C Work Phone: [facility] 07-07-2022 pneumococcal conjuga te (PCV20) vaccine, 20 valent (PREVNAR 20) Wanda Molina PA-C Work Phone: [facility] 07-07-2022 influenza virus vaccine, unspecified formulation Leonid Dee MD Work Phone: [facility] 12-21-2020 Moderna SARS-CoV-2 Vaccination Leonid Dee MD Work Phone: [facility] 11-23-2020 Moderna SARS-CoV-2 Vaccination Leonid Dee MD Work Phone: [facility] 07-20-2020 influenza (HD-IIV4) vaccine, age 65+ yr, high dose, quadrivalent, PF (FLUZONE HIGH-DOSE) Wanda Molina PA-C Work Phone: [facility] 07-08-2013 influenza, injectabl e, quadrivalent, preservative free Wanda Molina PA-C Work Phone: [facility] NEGATED: Highlighted row has not occurred!06-27-2023 Influenza, Seasonal, Quadrivalent, Adjuvanted Helen Covington PA-C Work Phone: [employer] Comment on above: Deferred: Patient Re fused Payers Date Payer Category Payer Unknown 2020 Medicare [id number] 2020 Private Health Insurance [facility] AARP SUPPLEMENT [id number] 2020-Present [phone] [address] [place] [address] Indemnity [id number] 2020 Medicare [id number] 2020 Unknown [id number] 2014 Unknown [id number] 2014 Unknown BCBS BCBS OUT OF STATE xxxxxxxxxxxx 2014-Present [address] [place] [address] xxxxxxxxxxxx [id number] 1955 Unknown [id number] 1955 Unknown [id number] 1955 Unknown [id number] 1955 Unknown [id number] Social History Date Type Detail Facility Start: 11-19-2019 End: 06-12-2024 Tobacco smoking status [facility] Start: 11-19-2019 End: 02-06-2023 Cigarettes smoked current (pack per day) - Reported [facility] Start: 11-19-2019 End: 07-17-2020 Alcohol intake [facility]dr[facility]finding[facility] Start: 03-01-2019 History SDOH Alcohol Frequency 1 [facility] Start: 1955 Sex Assigned At Not on file [place] Start: 07-17-2020 End: 08-02-2023 Tobacco use and exposure Current user [facility] Start: 05-09-2022 End: 02-02-2023 Exposure to SARS-CoV-2 (event) Not sure [place] End: 01-16-2024 History of tobacco use Cigarette Smoker [facility] Start: 04-10-2021 End: 03-20-2024 Alcohol intake Ex-drinker (finding) [facility] Work Phone: Start: 04-10-2021 Tobacco Comment trying to quit [facility] Work Phone: Start: 05-04-2021 End: 06-12-2024 Tobacco use and exposure Smokeless tobacco non-user [facility] Start: 05-19-2022 End: 06-27-2024 Alcohol intake Current non-drinker of alcohol (finding) [facility] Start: 09-06-2022 End: 02-06-2023 Tobacco use panel [facility] Adult Depression Screening Assessment 0 [facility] Start: 04-20-2023 Tobacco Comment Trying to quit [facility] How often to you hav e a drink containing alcohol? Never [facility] Start: 09-27-2023 End: 02-02-2024 Tobacco smoking status NHIS Ex-smoker [facility] Work Phone: End: 01-16-2024 History of tobacco use Current smoker [facility] Work Phone: Within the last year , have you been afraid of your partner or ex-partner? No [facility] Start: 1955 Sex Assigned At Female [facility] Start: 02-09-2024 Gender identity Identifies as female gender (finding) [facility] Start: 02-09-2024 Sexual orientation Heterosexual (sebastian manning) [facility] Medical Equipment Procedure Code Equipment Code Equipment Origin al Text Equipment Identifier Dates Substitute Mastergraft Calcium Phosphate Collagen Bone Graft Putty Void - [id number] Start: 07-06-2017 Comment on above: Description: RECONST ITUTED WITH BONE MARROW ASPIRATE Parallel [id number] Start: 07-06-2017 Jermaine Viper 2 Lordotic Titanium 40mm Spinal Mis - [id number] Start: 07-06-2017 Screw Viper 6mm Titanium 40mm Bone Polyaxial Cannulated Mis Spine - [id number] Start: 07-06-2017 Head V40 32mm 0m m Offset Taper Biolox Delta Femoral Hip - [id number] Start: 10-16-2023 Shell Trident Ii 48mm D Tritanium Acetabular 3 Screw Hole Cluster Sterile - [id number] Start: 10-16-2023 Insert Acetabula r 32mm 0d D Hip X3 Trident Sterile Latex Free - [id number] Start: 10-16-2023 Stem Accolade Ii 4 127d Femoral - [id number] Start: 10-16-2023 Jermaine Viper 2 Lordotic Titanium 45mm Spinal Mis - [id number] Start: 07-06-2017 Set Titanium Scr ew 1 Inner Mis Spine - [id number] Start: 07-06-2017 Screw Viper 2 6m m Titanium 45mm Bone Polyaxial Cannulated Mis Spine - [id number] Start: 07-06-2017 Clinical Notes 10-17-2021 to 06-27-2024 Annabel Zavala MD - 06/27/2024 12:00 PM Lachelle Arnold LPN - 06/27/2024 11:33 AM Matilde Levy RT(R) - 06/22/2024 11:30 AM Lavern Luo APRN.SUPERVISOR [employer] - 06/12/2024 11:00 AM EDT Note Date & Type Note Facility 06-27-2024 Note HNO ID: [id number] Author: ANNABEL ZAVALA MD Service: ? Author Type: Physician Type: Progress Notes Filed: 06/27/2024 12:01 Note Text: PAIN EVALUATION 06/22/2024 0611 06/27/2024 1140 Pain Level: -- 8 Pain Location: Shoulder-Left Shoulder-Left Description: Aching Aching;Sore;Throbbing;Radiating Duration Amount of Time: -- 1 Duration Units: Days Months Frequency: Intermittent Continuous Intervention/Comfort measure: Medication -- Encounter Diagnosis ICD-10-CM 1. Tear of left rotator cuff, unspecified tear extent, unspecified whether traumatic M75.102 Large Joint Arthro/Inj: L shoulder joint 06/27/2024 12:01 PM The procedure site was prepped in the usual sterile fashion. Site: L shoulder joint Medications: 80 mg triamcinolone acetonide 40 mg/mL Anesthetics: 4 mL bupivacaine (PF) 0.25 % (2.5 mg/mL) Outcome: Tolerated well, no immediate complications Post-injection instructions were reviewed with the patient and the patient voiced understanding of these instructions. Annabel Zavala MD Shoulder AND Elbow Surgeon Department of Orthopaedic Surgery [facility] 06-27-2024 History of Present illness Narrative Associated Order(s): Large Joint Arthro/Inj: L shoulder joint Post-Procedure Diagnose(s): Tear of left rotator cuff, unspecified tear extent, unspecified whether traumatic Images from the original note were not included. PAIN EVALUATION 06/22/2024 0611 06/27/2024 1140 Pain Level: -- 8 Pain Location: Shoulder-Left Shoulder-Left Description: Aching Aching;Sore;Throbbing;Radiating Duration Amount of Time: -- 1 Duration Units: Days Months Frequency: Intermittent Continuous Intervention/Comfort measure: Medication -- Encounter Diagnosis ICD-10-CM 1. Tear of left rotator cuff, unspecified tear extent, unspecified whether traumatic M75.102 Large Joint Arthro/Inj: L shoulder joint 06/27/2024 12:01 PM The procedure site was prepped in the usual sterile fashion. Site: L shoulder joint Medications: 80 mg triamcinolone acetonide 40 mg/mL Anesthetics: 4 mL bupivacaine (PF) 0.25 % (2.5 mg/mL) Outcome: Tolerated well, no immediate complications Post-injection instructions were reviewed with the patient and the patient voiced understanding of these instructions. Annabel Zavala MD Shoulder & Elbow Surgeon Department of Orthopaedic Surgery [facility] Injection of 4cc marcaine and 2cc kenalog ordered by Dr. Zavala. Injection prepared per order and handed off to ordering physician. Lachelle Pelletier LPN documented in this encounter [facility] 06-27-2024 Note HNO ID: [id number] Author: LACHELLE PELLETIER LPN Service: ? Author Type: LICENSED NURSE Type: Progress Notes Filed: 06/27/2024 12:01 Note Text: Injection of 4cc marcaine and 2cc kenalog ordered by Dr. Zavala. Injection prepared per order and handed off to ordering physician. Lachelle Pelletier LPN [facility] 06-22-2024 History of Present illness Narrative Radiology Service Progress Note PATIENT NAME: Priscila Cha DATE OF SERVICE: June 22, 2024 TIME: 11:28 AM PATIENT IDENTITY VERIFICATION COMPLETED USING TWO (2) IDENTIFIERS: Name and Date of confirmed by patient verbally and Name and Date of confirmed by identification band. FALL SCREENING: Has the patient had 2 falls in the last year or 1 fall with injury or currently using an Ambulatory Assistive Device (Walker, Cane, Wheelchair, Crutches, etc.)? No PATIENT GENDER DATA: Female. status: : No status: NO. PATIENT RELEVANT IMPLANT DATA REVIEWED: Not Applicable PATIENT PRESENTS WITH AN IMPLANTABLE OR ATTACHED HOSPITAL PRODUCT SPECIALIST: No RADIOLOGY DEPARTMENT: General X-ray: Exam(s) Completed: Spine X-Ray(s): Lumbar AP / LAT / L5-S1 / FLEX-EXT PERIPHERAL IV DATA: Not applicable SIGNED BY: RT Franny(R) June 22, 2024 11:28 AM documented in this encounter [facility] 06-22-2024 Note HNO ID: [id number] Author: MATILDE PAYTON RT(Sally) Service: Radiology Author Type: Technologist Type: Progress Notes Filed: 06/22/2024 11:28 Note Text: Radiology Service Progress Note PATIENT NAME: Priscila Cha DATE OF SERVICE: June 22, 2024 TIME: 11:28 AM PATIENT IDENTITY VERIFICATION COMPLETED USING TWO (2) IDENTIFIERS: Name and Date of confirmed by patient verbally and Name and Date of confirmed by identification band. FALL SCREENING: Has the patient had 2 falls in the last year or 1 fall with injury or currently using an Ambulatory Assistive Device (Walker, Cane, Wheelchair, Crutches, etc.)? No PATIENT GENDER DATA: Female. status: : No status: NO. PATIENT RELEVANT IMPLANT DATA REVIEWED: Not Applicable PATIENT PRESENTS WITH AN IMPLANTABLE OR ATTACHED HOSPITAL PRODUCT SPECIALIST: No RADIOLOGY DEPARTMENT: General X-ray: Exam(s) Completed: Spine X-Ray(s): Lumbar AP / LAT / L5-S1 / FLEX-EXT PERIPHERAL IV DATA: Not applicable SIGNED BY: RT Franny(R) June 22, 2024 11:28 AM [facility] 06-12-2024 History of Present illness Narrative Images from the original note were not included. NEUROSURGERY CONSULT NOTE Lavern Hidalgo APRN.CNP Date of visit: June 12, 2024 Patient Name: Ms.Cynthia Ryan Cha Date of : 1955 Current Age: [age] year old Sex: female MRN/E# [id number] CHIEF COMPLAINT: Patient presents with: Established Patient HISTORY OF PRESENT ILLNESS : The patient is a 68 year old, female with a PMHx of bowel perforation, COPD, migraine, IBS, recurring shingles, sleep apnea who is self referred for Neurosurgical evaluation. The patient presents as a new patient without imaging for evaluation. She is a former patient of Dr. Lopez and was last seen in the office in May 2021. She has a history of a 1 level lumbar fusion in [address] Lopez. She did well following surgery and no further follow-up was indicated. Since then she reports that she underwent a right total hip replacement at the beginning of the year. Following the hip replacement she had a perforated bowel from diverticulitis and ended up with an ostomy bag. This has since been reversed. Now that she is feeling better and ambulating more she has developed pain strictly to the left lower back without radiation or weakness to the left lower extremity. She states pain is worse upon awakening in the morning and improves throughout the day however the pain can get severe causing issues with her ADLs. She states that she feels as if her right lower extremity is longer than her left lower extremity since her hip replacement and this causes her to walk awkwardly. Over the course of the year she has participated in multiple sessions of physical therapy given her multiple surgeries. This has not been beneficial for her left SI joint symptoms. She is utilizing OTC NSAIDs sparingly given her GI issues and ice for symptom control. She presents for evaluation and plan of care. SYMPTOMS: left SI joint pain DERMATOMAL DISTRIBUTION: Not applicable PREVIOUS CONSERVATIVE TREATMENTS: OTC medications as needed PREVIOUS SURGERY: SURGERY #1: L4-L5 MIS lami/decompression and TLIF on 07/06/[address] Lopez. SURGICAL RISK: Smoker: Daily Diabetic: No Anticoagulants / Antiplatelets: No Occupation: N/A PAIN EVALUATION 06/08/2024 1809 Pain Level: 9 Pain Location: Back-Lower Description: Aching;Radiating Duration Amount of Time: 13 Duration Units: Hours Frequency: Continuous Intervention/Comfort measure: Medication;Reposition;Cold PAST MEDICAL HISTORY Diagnosis Date Anxiety Arthritis Atrophic vaginitis Bowel perforation (HCC) 10/2023 Chronic pain Constipation COPD (chronic obstructive pulmonary disease) ([facility]) Depression Dyspareunia in female Headache, migraine Hemorrhoids IBS (irritable bowel syndrome) patient denies IBS pt will d/w PCP Menopausal and female climacteric states Multilevel degenerative disc disease Panic disorder Shingles recurring Sinusitis Sleep apnea Spondylolisthesis at L5-S1 level Urinary frequency PAST SURGICAL HISTORY Procedure Laterality Date ANESTHESIA TOTAL HIP ARTHROPLASTY Right 10/16/2023 BACK SURGERY HX 06/2017 cage around discs CATARACT EXTRACTION HX 2008 COLONOSCOPY 01/10/2018 COLONOSCOPY 01/02/2024 COLOSTOMY Left 11/04/2023 exploratory laparotomy with partial left colectomy and colostomy; Dr. Adria Lopez (Mock's procedure) COLOSTOMY 02/16/2024 reversal EXTENSIVE JAW SURGERY 1983 SEPTOPLASTY 1985 TONSILLECTOMY HX age 4 FAMILY HISTORY Problem Relation Age of Onset Coronary Artery Disease Mother Coronary Artery Disease Father Colon Cancer Paternal Grandmother Arthritis Other other (Congestive heart failure) Other Thyroid Other Disorder ALLERGIES Allergen Reactions Ibuprofen Other: See Comments Patient says gets purple spots Ketorolac Trometham* Other: See Comments Purple spots Levaquin [Levofloxa* GI Upset Sulfa (Sulfonamide * Vomiting, GI Upset Current Outpatient Medications Medication Sig Dispense Refill fexofenadine HCl (PRIYANKA ORAL) Take by mouth. fluticasone (FLONASE) 50 mcg/actuation nasal spray 1-2 spray in each nostril Nasally Once a day for 30 days lisinopril-hydroCHLOROthiazide (ZESTORETIC) 20-25 mg per tablet 1 tablet Orally Once a day for 90 days TRELEGY ELLIPTA 100-62.5-25 mcg inhalation powder rnpklgienxo-mvsxwbqvf-yxplyifh (TRELEGY ELLIPTA) 200-62.5-25 mcg inhalation powder 1 Puff. MAGNESIUM GLYCINATE ORAL Take 400 mg by mouth once daily. HERBAL THERAPY CBD Gummie- Take one by mouth daily at bedtime as needed for insomnia cholecalciferol (VITAMIN D3) 1,000 unit tab tablet 2 tabs Orally Once a day traZODone (DESYREL) 50 mg tablet Take 50 mg by mouth daily at bedtime. clonazePAM (KLONOPIN) 0.5 mg tablet Take 0.25 mg by mouth two times a day as needed for anxiety. Patient reports that Klonopin 0.5mg daily prn is prescribed but that when at home she usually takes Klonopin 0.25mg bid prn Paula Bernal, [facility] October 17, 2023 7:43 AM gabapentin (NEURONTIN) 300 mg capsule Take 300 mg by mouth daily at bedtime. No current facility-administered medications for this visit. REVIEW OF SYSTEMS: Review of Systems Constitutional: Negative for chills, diaphoresis (Negative for night sweats.) and fever. HENT: Negative for ear discharge and rhinorrhea. Eyes: Negative for discharge. Respiratory: Negative for cough, shortness of breath and wheezing. Cardiovascular: Negative for chest pain, palpitations and leg swelling. Gastrointestinal: Negative for constipation, diarrhea, nausea and vomiting. Endocrine: Negative for cold intolerance and heat intolerance. Genitourinary: Negative for frequency. Negative for urinary incontinence and urinary retention. Musculoskeletal: Positive for back pain. Negative for joint swelling, myalgias and neck pain. Skin: Negative for rash (Negative for hives and skin lesions.). Allergic/Immunologic: Negative for environmental allergies and food allergies. Negative for contact allergy, seasonal allergies. Neurological: Negative for dizziness, seizures, syncope, weakness, light-headedness, numbness (Negative for numbness in extremities.) and headaches. Hematological: Does not bruise/bleed easily. Psychiatric/Behavioral: The patient is not nervous/anxious. Negative for depression. OBJECTIVE: BP 137/84 Pulse 92 Resp 16 Wt 134 lb 7.7 oz (61.0kg) SpO2 98% PHYSICAL EXAM: Mental State : Alert, memory function unremarkable. Attention span and concentration normal for patient's age. Speech normal, no receptive or expressive speech deficit. Recent and remote memory normal. Orientation : Oriented to person, place and time. Higher Cortical Function : Intact speech and language. Spontaneous speech and comprehension normal. Fund of knowledge intact for pt level of education. Cranial Nerves : II: No visual field cut no blurring, Makes and sustains eye contact III, IV, : Normal, no double vision or drooping. Pupils equal and reactive to light. Extraocular muscles intact. No nystagmus V: Normal sensation on the face, normal jaw movements VII: No paresis on either side VIII: No gross hearing deficit IX: Good and equal shoulder shrugs XII: Tongue midline, no fasciculations Sensory: SILT. Normal Sensation in upper and lower extremities and trunk to touch and noxious stimuli. Motor: Normal muscle tone and bulk. No tremor or uncontrollable movements. No spasticity or tremor. Strength: Upper Extremities : R L Deltoid 5/5 5/5 Biceps 5/5 5/5 Triceps 5/5 5/5 Wrist Ext 5/5 5/5 Wrist Flx 5/5 5/5 Hand Int 5/5 5/5 Lower Extremities : Hip Flexors 5/5 5/5 Hip Extensors 5/5 5/5 Hip Abductors 5/5 5/5 Straight leg Neg Neg Ankle dorsiflex 5/5 5/5 Ankle Plantar 5/5 5/5 Reflexes : Biceps 2+ 2+ Triceps 2+ 2+ Wrist 2+ 2+ Patellar 2+ 2+ Achilles 2+ 2+ Cerebellar Function : Normal finger to nose. Normal rapid alternating movements. No ataxia. Negative Romberg. Gait and Station: Normal gait. No assistive device usage. Pulmonary: Lungs without cough, audible wheeze. Respirations unlabored. Cardiac: Regular rate and rhythm. No murmer, gallop or rub. IMAGING STUDIES: No new imaging ASSESSMENT/PLAN: (M47.818) Sacral spondylosis (primary encounter diagnosis) (M43.16) Spondylolisthesis of lumbar region Comment: The patient presents for evaluation of left lower lumbar pain. She is status post a right total hip replacement earlier this year and states since then she has struggled with pain to this area. She can pinpoint the pain location and there is no radiation of pain down the buttocks or leg and there is no weakness in the left lower extremity. Neurologically she is intact on exam with the exception of mild weakness to the right lower extremity suspected to be related to her right total hip replacement. I told her that I suspect her symptoms are SI joint agitation given her exam and her explanation. I would like her to obtain dynamic films of the lumbar spine to evaluate the surgical hardware and assess for any new issues. Once these are completed I will contact her via telephone and discuss a plan of care. Discussed that she may benefit from a session of physical therapy and/or a pain management referral for SI joint injections. No advanced imaging is indicated at this time. All of her questions and concerns were addressed in detail. Plan: XR LUMBAR MOTION 4V AP/LAT/ FLEX/EXT RENA [facility] Neurosurgery Nurse Practitioner [facility] Angel Ochoa Personal review of medical records: I reviewed with the patient, history, physical exam, the images and the chart. FOLLOW UP: Return for will call with results. Please Note: This note has been partially generated using [employer], a speech recognition software program, and may contain errors including punctuation, grammar, spelling, gender, and inappropriate words or phrases that pertain to the system. documented in this encounter [facility] 06-12-2024 Note HNO ID: [id number] Author: LAVERN HIDALGO APRN.CNP Service: ? Author Type: Nurse Practitioner Type: Progress Notes Filed: 06/12/2024 11:38 Note Text: NEUROSURGERY CONSULT NOTE Lavern Hidalgo APRN.CNP Date of visit: June 12, 2024 Patient Name: Ms.Cynthia Ryan Cha Date of : 1955 Current Age: [age] year old Sex: female MRN/E# [id number] CHIEF COMPLAINT: Patient presents with: Established Patient HISTORY OF PRESENT ILLNESS : The patient is a 68 year old, female with a PMHx of bowel perforation, COPD, migraine, IBS, recurring shingles, sleep apnea who is self referred for Neurosurgical evaluation. The patient presents as a new patient without imaging for evaluation. She is a former patient of Dr. Lopez and was last seen in the office in May 2021. She has a history of a 1 level lumbar fusion in [address] Lopez. She did well following surgery and no further follow-up was indicated. Since then she reports that she underwent a right total hip replacement at the beginning of the year. Following the hip replacement she had a perforated bowel from diverticulitis and ended up with an ostomy bag. This has since been reversed. Now that she is feeling better and ambulating more she has developed pain strictly to the left lower back without radiation or weakness to the left lower extremity. She states pain is worse upon awakening in the morning and improves throughout the day however the pain can get severe causing issues with her ADLs. She states that she feels as if her right lower extremity is longer than her left lower extremity since her hip replacement and this causes her to walk awkwardly. Over the course of the year she has participated in multiple sessions of physical therapy given her multiple surgeries. This has not been beneficial for her left SI joint symptoms. She is utilizing OTC NSAIDs sparingly given her GI issues and ice for symptom control. She presents for evaluation and plan of care. SYMPTOMS: left SI joint pain DERMATOMAL DISTRIBUTION: Not applicable PREVIOUS CONSERVATIVE TREATMENTS: OTC medications as needed PREVIOUS SURGERY: SURGERY #1: L4-L5 MIS lami/decompression and TLIF on 07/06/[address] Lopez. SURGICAL RISK: Smoker: Daily Diabetic: No Anticoagulants / Antiplatelets: No Occupation: N/A PAIN EVALUATION 06/08/2024 1809 Pain Level: 9 Pain Location: Back-Lower Description: Aching;Radiating Duration Amount of Time: 13 Duration Units: Hours Frequency: Continuous Intervention/Comfort measure: Medication;Reposition;Cold PAST MEDICAL HISTORY Diagnosis Date Anxiety Arthritis Atrophic vaginitis Bowel perforation (HCC) 10/2023 Chronic pain Constipation COPD (chronic obstructive pulmonary disease) ([facility]) Depression Dyspareunia in female Headache, migraine Hemorrhoids IBS (irritable bowel syndrome) patient denies IBS pt will d/w PCP Menopausal and female climacteric states Multilevel degenerative disc disease Panic disorder Shingles recurring Sinusitis Sleep apnea Spondylolisthesis at L5-S1 level Urinary frequency PAST SURGICAL HISTORY Procedure Laterality Date ANESTHESIA TOTAL HIP ARTHROPLASTY Right 10/16/2023 BACK SURGERY HX 06/2017 cage around discs CATARACT EXTRACTION HX 2008 COLONOSCOPY 01/10/2018 COLONOSCOPY 01/02/2024 COLOSTOMY Left 11/04/2023 exploratory laparotomy with partial left colectomy and colostomy; Dr. Adria Lopez (Mock's procedure) COLOSTOMY 02/16/2024 reversal EXTENSIVE JAW SURGERY 1982 SEPTOPLASTY 1985 TONSILLECTOMY HX age 4 FAMILY HISTORY Problem Relation Age of Onset Coronary Artery Disease Mother Coronary Artery Disease Father Colon Cancer Paternal Grandmother Arthritis Other other (Congestive heart failure) Other Thyroid Other Disorder ALLERGIES Allergen Reactions Ibuprofen Other: See Comments Patient says gets purple spots Ketorolac Trometham* Other: See Comments Purple spots Levaquin [Levofloxa* GI Upset Sulfa (Sulfonamide * Vomiting, GI Upset Current Outpatient Medications Medication Sig Dispense Refill fexofenadine HCl (PRIYANKA ORAL) Take by mouth. fluticasone (FLONASE) 50 mcg/actuation nasal spray 1-2 spray in each nostril Nasally Once a day for 30 days lisinopril-hydroCHLOROthiazide (ZESTORETIC) 20-25 mg per tablet 1 tablet Orally Once a day for 90 days TRELEGY ELLIPTA 100-62.5-25 mcg inhalation powder xxpqlboxhco-krafgahnh-vlyajemo (TRELEGY ELLIPTA) 200-62.5-25 mcg inhalation powder 1 Puff. MAGNESIUM GLYCINATE ORAL Take 400 mg by mouth once daily. HERBAL THERAPY CBD Gummie- Take one by mouth daily at bedtime as needed for insomnia cholecalciferol (VITAMIN D3) 1,000 unit tab tablet 2 tabs Orally Once a day traZODone (DESYREL) 50 mg tablet Take 50 mg by mouth daily at bedtime. clonazePAM (KLONOPIN) 0.5 mg tablet Take 0.25 mg by mouth two times a day as needed for anxiety. (more content not included)... [facility] 03-20-2024 History of Present illness Narrative Status post Colostomy closure 02/09/2024. Still some abdominal pain I suspect was related mostly to recent UTI but improving on a daily basis. Incisions sinew healing well. Continue with light activities for the next 3 to 4 weeks and diet as tolerated. No up General surgery as needed. Adria Lopez MD documented in this encounter [facility] 03-12-2024 Telephone encounter Note Called patient back regarding abdominal discomfort. She states that 2 weeks ago at her post-op appointment she was feeling well. However, over the past 2 weeks patient has developed a UTI and some abdominal cramping, with overall feeling fatigued. She states that this abdominal pain is centrally and comes and goes. She has been on 2 different antibiotics (Augmentin needed switched to Macrobid after urine culture). Patient denies fever/chills, nausea/vomiting, appetite change, or bowel changes including bloody stools or diarrhea. She notes that her skin is very sensitive at her incision site but denies incisional opening, erythema, or warmth. I educated patient that these symptoms are likely due to the UTI and continued antibiotic therapy. With lack of systemic symptoms, I have low concern for abdominal post-op process or further infection. 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 No further intervention recommended at this time, patient to continue to observe symptoms and attend her follow up appointment in our office next week- she confirms 03/20 appointment. Alarm symptoms to call back or present to the ED reviewed with patient and she expresses understanding. She is thankful for call and feels relieved. [facility] Work Phone: 03-12-2024 Miscellaneous Notes Called patient back regarding abdominal discomfort. She states that 2 weeks ago at her post-op appointment she was feeling well. However, over the past 2 weeks patient has developed a UTI and some abdominal cramping, with overall feeling fatigued. She states that this abdominal pain is centrally and comes and goes. She has been on 2 different antibiotics (Augmentin needed switched to Macrobid after urine culture). Patient denies fever/chills, nausea/vomiting, appetite change, or bowel changes including bloody stools or diarrhea. She notes that her skin is very sensitive at her incision site but denies incisional opening, erythema, or warmth. I educated patient that these symptoms are likely due to the UTI and continued antibiotic therapy. With lack of systemic symptoms, I have low concern for abdominal post-op process or further infection. 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 No further intervention recommended at this time, patient to continue to observe symptoms and attend her follow up appointment in our office next week- she confirms 03/20 appointment. Alarm symptoms to call back or present to the ED reviewed with patient and she expresses understanding. She is thankful for call and feels relieved. documented in this encounter [facility] 03-11-2024 Telephone encounter Note The following approved medication requests have been transmitted electronically to [facility]. Requested Prescriptions Signed Prescriptions Disp Refills fluconazole (DIFLUCAN) 150 mg tablet 2 tablet 0 Si tablet po now; repeat in 2 days Authorizing Provider: WANDA MOLINA PA-C [facility] 03-11-2024 Miscellaneous Notes The following approved medication requests have been transmitted electronically to [facility]. Requested Prescriptions Signed Prescriptions Disp Refills fluconazole (DIFLUCAN) 150 mg tablet 2 tablet 0 Si tablet po now; repeat in 2 days Authorizing Provider: WANDA MOLINA PA-C Pt is informed with her results. Pt says she normally get a yeast infection after taking antibiotics and wanted to know if you could send in a diflucan as well. Maeev Almonte MA ----- Message from Wanda Molina PA-C sent at 03/11/2024 9:37 AM EDT ----- Urine cx with citrobacter. Augmentin won't treat this. She needs to stop Augmentin and switch to Macrobid; sent to [facility]. Wanda Molina PA-C documented in this encounter [facility] 03-11-2024 Telephone encounter Note Pt is informed with her results. Pt says she normally get a yeast infection after taking antibiotics and wanted to know if you could send in a diflucan as well. Maeve Almonte MA [facility] 03-11-2024 Telephone encounter Note ----- Message from Wanda Molina PA-C sent at 03/11/2024 9:37 AM EDT ----- Urine cx with citrobacter. Augmentin won't treat this. She needs to stop Augmentin and switch to Macrobid; sent to [facility]. Wanda Molina PA-C [facility] 03-08-2024 Telephone encounter Note Pt is informed with her results. Pt says she will start taking the Augmentin and when the final report comes back she will go from there. Maeve Almonte MA [facility] 03-08-2024 Miscellaneous Notes Pt is informed with her results. Pt says she will start taking the Augmentin and when the final report comes back she will go from there. Maeve Almonte MA ----- Message from Wanda Molina PA-C sent at 03/08/2024 8:32 AM EDT ----- Urine cx with bacteria, final report isn't back yet. We can guess an antibiotic to start now but it may not be susceptible and may need to be changed when the final report comes back. Sent Augmentin to [facility]. Wanda Molina PA-C documented in this encounter [facility] 03-08-2024 Telephone encounter Note ----- Message from Wanda Molina PA-C sent at 03/08/2024 8:32 AM EDT ----- Urine cx with bacteria, final report isn't back yet. We can guess an antibiotic to start now but it may not be susceptible and may need to be changed when the final report comes back. Sent Augmentin to [facility]. Wanda Molina PA-C [facility] 03-08-2024 Telephone encounter Note Spoke to patient and he is aware Augmenting was sent to the pharmacy. Thelma Philippe March 08, 2024 8:42 AM [facility] 03-08-2024 Miscellaneous Notes Spoke to patient and he is aware Augmenting was sent to the pharmacy. Thelma Philippe March 08, 2024 8:42 AM documented in this encounter [facility] 03-06-2024 History of Present illness Narrative Pt returned today to leave a urine sample. Pt could not urinate yesterday at her visit. Pt states is having some urinary hesitancy, then nothing seems to come out. Pt says her bladder feels different since these surgeries. Urine Dip: +lauro, +nit, +pro Maeve Almonte MA documented in this encounter [facility] 03-05-2024 History of Present illness Narrative SUBJECTIVE Priscila Cha is a 68 year old woman who presents for green vaginal discharge; first noticed about 7-10 days ago. Last pap-12/01/17. She is overdue for annual exam but wants to reschedule that due to recent surgery/colostomy reversal. She thinks some feces got in the vagina overnight about 2 weeks ago; she had a bowel accident overnight. She tried to clean herself. She notices slight itching. Denies odor or burning. Denies recent antibiotic use; last was 2 weeks ago after surgery. No LMP recorded (lmp unknown). Patient is postmenopausal. She has noticed some urinary hesitancy, then nothing seems to come out. Her bladder feels different since these surgeries. Pt unable to leave a urine sample today; will return tomorrow. HISTORIES FAMILY HISTORY Problem Relation Age of Onset Coronary Artery Disease Mother Coronary Artery Disease Father Colon Cancer Paternal Grandmother Arthritis Other other (Congestive heart failure) Other Thyroid Other Disorder PAST MEDICAL HISTORY Diagnosis Date Anxiety Arthritis Atrophic vaginitis Bowel perforation (HCC) 10/2023 Chronic pain Constipation COPD (chronic obstructive pulmonary disease) (HCC) Depression Dyspareunia in female Headache, migraine Hemorrhoids IBS (irritable bowel syndrome) patient denies IBS pt will d/w PCP Menopausal and female climacteric states Multilevel degenerative disc disease Panic disorder Shingles recurring Sinusitis Sleep apnea Spondylolisthesis at L5-S1 level Urinary frequency PAST SURGICAL HISTORY Procedure Laterality Date ANESTHESIA TOTAL HIP ARTHROPLASTY Right 10/16/2023 BACK SURGERY HX 06/2017 cage around discs CATARACT EXTRACTION HX 2008 COLONOSCOPY 01/10/2018 COLONOSCOPY 01/02/2024 COLOSTOMY Left 11/04/2023 exploratory laparotomy with partial left colectomy and colostomy; Dr. Adria Lopez (Mock's procedure) COLOSTOMY 02/16/2024 reversal EXTENSIVE JAW SURGERY 1982 SEPTOPLASTY 1984 TONSILLECTOMY HX age 4 is allergic to ibuprofen, ketorolac tromethamine, levaquin [levofloxacin], and sulfa (sulfonamide antibiotics). Current Outpatient Medications Medication Sig fluticasone (FLONASE) 50 mcg/actuation nasal spray 1-2 spray in each nostril Nasally Once a day for 30 days lisinopril-hydroCHLOROthiazide (ZESTORETIC) 20-25 mg per tablet 1 tablet Orally Once a day for 90 days loratadine (CLARITIN) 10 mg tablet Take 1 tablet by mouth once daily. ondansetron orally disintegrating (ZOFRAN ODT) 4 mg disintegrating tablet tiotropium (SPIRIVA WITH HANDIHALER) 18 mcg inhalation capsule 1 capsule. TRELEGY ELLIPTA 100-62.5-25 mcg inhalation powder fmbxqozaasl-dhpnxgusg-szesdmyl (TRELEGY ELLIPTA) 200-62.5-25 mcg inhalation powder 1 Puff. MAGNESIUM GLYCINATE ORAL Take 400 mg by mouth once daily. HERBAL THERAPY CBD Gummie- Take one by mouth daily at bedtime as needed for insomnia cholecalciferol (VITAMIN D3) 1,000 unit tab tablet 2 tabs Orally Once a day traZODone (DESYREL) 50 mg tablet Take 50 mg by mouth daily at bedtime. clonazePAM (KLONOPIN) 0.5 mg tablet Take 0.25 mg by mouth two times a day as needed for anxiety. Patient reports that Klonopin 0.5mg daily prn is prescribed but that when at home she usually takes Klonopin 0.25mg bid prn Paula Bernal, [facility] October 17, 2023 7:43 AM gabapentin (NEURONTIN) 300 mg capsule Take 300 mg by mouth daily at bedtime. No current facility-administered medications for this visit. 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 HEENT: Within normal limits PELVIC: EGBUS: Normal female external genitalia, no lesions or cysts VAGINA: thin white/yellow discharge, no bleeding, well-rugated, no lesions CERVIX: No lesions, no cervical motion tenderness RECTOVAGINAL: Deferred EXTREMITIES: No edema, no calf tenderness NEUROLOGICAL: Grossly intact ASSESSMENT/PLAN: 1. Vaginal discharge - ICD9: 623.5, ICD10: N89.8 (primary diagnosis) - CULTURE, AEROBIC BACTERIA - SURESWAB(R) ADV LAURA VAGINITIS (CV), TMA 2. Dysuria - ICD9: 788.1, ICD10: R30.0 - URINE CULTURE Wanda Molina PA-C Return for Annual Exam. documented in this encounter [facility] 02-23-2024 History of Present illness Narrative Status post Colostomy closure 02/09/2024. Still some abdominal pain but improving on a daily basis. Incisions healing well. Continue with light activities and diet as tolerated. Will see back in the office in 3 to 4 weeks. Adria Lopez MD documented in this encounter [facility] 02-20-2024 Telephone encounter Note Called patient back who states that she has continued abdominal pain s/p ostomy reversal. Patient notes that this pain is in her entire abdomen without focal point. She notes that the pain improved after a large bowel movement this AM but is still present. She notes nonbloody, soft stools. Patient denies fever/chills or nausea/vomiting. She notes good hydration but still small appetite. She is taking narcotic and Tylenol without true relief, is unable to take NSAIDS due to rash/bruising. I educated patient that this sound like normal, post-operative pain. No signs of infection, abscess, or internal bleeding are present. Cramping likely due to body re-learning digestion after anastomosis and will continue to improve. Will Rx 2 more days of PRN narcotic, patient understands to transition to OTC when able. Alarm symptoms to call sooner or present to the ED reviewed with patient and she expresses understanding, has no further questions presently. [facility] 02-20-2024 Miscellaneous Notes Called patient back who states that she has continued abdominal pain s/p ostomy reversal. Patient notes that this pain is in her entire abdomen without focal point. She notes that the pain improved after a large bowel movement this AM but is still present. She notes nonbloody, soft stools. Patient denies fever/chills or nausea/vomiting. She notes good hydration but still small appetite. She is taking narcotic and Tylenol without true relief, is unable to take NSAIDS due to rash/bruising. I educated patient that this sound like normal, post-operative pain. No signs of infection, abscess, or internal bleeding are present. Cramping likely due to body re-learning digestion after anastomosis and will continue to improve. Will Rx 2 more days of PRN narcotic, patient understands to transition to OTC when able. Alarm symptoms to call sooner or present to the ED reviewed with patient and she expresses understanding, has no further questions presently. Patient is having post op issues with severe pain and diarrhea. No fever. Please call to advise. documented in this encounter [facility] 02-20-2024 Telephone encounter Note Patient is having post op issues with severe pain and diarrhea. No fever. Please call to advise. [facility] 02-16-2024 Note [facility] 02-16-2024 History of Present illness Narrative Images from the original note were not included. PHYSICAL THERAPY [facility] Treatment Note Name/MRN: Priscila Cha ([id number]) Date of : 1955 Age: 68 y.o. Room/Bed: [facility] A Visit #: 2 out of 7 visits Discharge Recommendation: Home with assist PRN, Home with Home health PT Equipment Needed: No Other: Pt owns a FWW Assessment 65 y/o female admitted for Ronni reversal, open robotic converted to open converted to open Harmann reversal, open appendectomy, open repair colotomy, open small bowel resection on 02/09/24. Pt is progressing well towards PT goals. Pt requires min assist for log roll technique for supine <> sit transfers, assist at LE and trunk, mod I with FWW for sit <> stand transfers, and SBA for ambulation with FWW 220 feet x 1 trial. Pt declined to trial stair negotiation this date (PT reviewed step to pattern, use of hand rail and supervision from family to maximize safety). Pt would benefit from continued acute care PT and home PT services to maximize safety and progress towards PLOF. Subjective Cleared by RN for PT treatment. Pt received to PT treatment ambulating from bathroom without assistive device and on room air. Pt pleasant and cooperative and agreeable to PT treatment. Dressing at abdomen c/d/intact. Vitals HR: pre: 101 bpm, SpO2 91-96% on room air Heart Rate: (!) 124 SpO2: 96 % Heart Rate Source: Monitor BP: 131/74 MAP (mmHg): 93 HR post ambulation trial: 126 bpm, SpO2 96% Mild - moderate shortness of breath after ambulation, pt educated on pacing activity, pursed lips breathing to decrease SOB Pain: 0-10 pain scale: 9/10 Location: abdomen; all interventions to tolerance, RN notified post session patient requesting pain medication Medical Precautions: No active isolations Proper PPE donned/doffed in accordance with facility standards. Fall Risk: Adams Fall Risk Score: 20 (Low Risk) Precautions/Restrictions: abdominal precautions Overall Cognitive Status: WFL Overall Orientation Status: Oriented x4 Family/Caregiver Present: none and son in at the end of session Objective Ambulation Ambulation 1 Assistive device(s) used: front wheeled walker and gait belt Assist level: SBA Distance (ft): 220 feet x 1 trial Quality of gait: increased pace, taking hands off walker x 2; cues to slow israel and pace activity, focus of breathing and rest break as needed Transfers/Mobility Sit to stand: Modified Independent, x 2 trials Stand to sit: Modified Independent, x 2 trials Device(s) used: none and front wheeled walker Exercises Bed Mobility Supine to sit: Min Assist, log roll technique Sit to supine: Min Assist, log roll technique Educated patient on log roll technique, pt held pillow to abdomen to splint during bed mobility Balance: Posture: good Sitting - Static: Modified Independent Sitting - Dynamic: Modified Independent Standing - Static: SBA Standing - Dynamic: SBA, standing balance with FWW or no assistive device Plan Continue acute PT per plan of care. Safety/Education Safety Safety Devices in place: All fall risk precautions in place, call light within reach, left in bed, gait belt, patient at risk for falls, and nurse notified Restraints: No Education Education Given To: patient Education Provided: PT Role, Gait Training, Home Exercise Program, Transfer Training, Energy Conservation, Equipment, Fall Prevention Education, Benefits of Increasing Activity, Breathing Techniques, and log roll technique, splinted cough, ely cough technique, abdominal precautions Education Method: Verbal Barriers to Learning: None Education Outcome: Verbalized Understanding and Continued Education Needed Outcome Measures AM-PAC AM-PAC Inpatient Mobility Raw Score (No Stairs) : 20 JH-HLM JH-HLM Score: Walked 250 ft or more (i.e. several laps on unit) Goals Patient Stated Goal: to go home Encounter Problems Encounter Problems (Active) Balance Patient will maintain dynamic standing balance for 4 minutes with modified independence in order to demonstrate decreased risk of falling. (Not Addressed) Start: 02/13/24 Expected End: 02/20/24 Exercise Patient will complete lower extremity exercises for 1-2 sets / 10 reps in order to improve strength and activity tolerance for mobility. (Progressing) Start: 02/13/24 Expected End: 02/20/24 Mobility Patient will ambulate 100 feet with modified independence and least restrictive device in order to improve safety and independence with mobility. (Not Addressed) Start: 02/13/24 Expected End: 02/20/24 Patient will ascend and descend 2 stairs with one railing and modified independence in order to safely negotiate home. (Not Addressed) Start: 02/13/24 Expected End: 02/20/24 Pain - Adult Transfers Patient will perform bed mobility with modified independence in order to improve independence and prepare for out of bed mobility. (Not Addressed) Start: 02/13/24 Expected End: 02/20/24 Therapy Time Individual Co-treatment Time In 1244 Time Out 1309 Minutes 25 Timed Code Treatment Minutes: 25 Minutes Sheila Samuel PT Surgery Post Op Progress Note PATIENT NAME: Priscila Cha TODAY'S DATE: 02/16/2024 SUBJECTIVE: General Surgery Follow up on colostomy reversal. Overall doing well. Improving abdominal pain. No N/V. Continues to pass flatus no BM. Pain controlled YES/NO: Yes Other Complaints YES/NO: No Flatus/BM/or Ostomy function YES/NO: Yes OBJECTIVE: VITALS: BP 112/66 Pulse 107 Temp (!) 35.9 C (96.7 F) (Temporal) Resp 16 Ht 5' 3 (1.6 m) Wt 128 lb (58.1 kg) LMP (LMP Unknown) SpO2 91% BMI 22.67 kg/m INTAKE/OUTPUT: I/O last 3 completed shifts: In: 550 (9.5 mL/kg) [P.O.:550] Out: 1450 (25 mL/kg) [Urine:1450 (0.7 mL/kg/hr)] Weight: 58.1 kg No intake/output data recorded. CONSTITUTIONAL: awake and alert ABDOMEN: soft, nondistended, and incisional tenderness INCISION: clean, dry, no drainage. Eastman intact. Data: CBC: Recent Labs 02/14/24 0604 02/15/24 0149 02/16/24 0432 WBC 7.1 6.6 7.4 HGB 7.5* 7.7* 7.7* HCT 23.2* 24.4* 24.1* PLT 415 293 537* BMP: Recent Labs 02/14/24 0604 02/15/24 0219 02/16/24 0432 NA 131* 133* 133* K 4.8 4.3 4.3 CL 101 98 100 CO2 25 29 BUN 6* 5* 6* CREATININE 0.54 0.53 0.61 GLUCOSE 102* 99 96 Hepatic: Recent Labs 02/13/24 1109 02/14/24 0604 AST 20 20 ALT 11 11 BILITOT 0.7 0.5 ALKPHOS 77 85 ASSESSMENT AND PLAN: Ms. Cha is a 68 y/o F who presents s/p 1. Robotic converted to open Ronni reversal (partial colectomy with colorectal anastomosis) 2. Open appendectomy 3. Open small bowel resection 4. Open colorrhaphy 5. Flexible sigmoidoscopy POD #7 - Tolerating low fiber diet - Positive flatus, NO BM - Encouraged OOB to chair and ambulate - IS - Urinary retention - okay to straight cath if continues watkins to be placed with urology follow up. - DVT ppx: Lovenox - PRN pain medication Discontinue IV narcotic - Disposition: Patient improving. Tolerating Low fiber Pain improving. Plan for discharge this afternoon. Follow up in office 1 week for staple removal and postoperative visit. Fernando Brady, [employer] hospitalist Progress Note 02/16/[id number]: Please page me ([phone]) for patient care issues. [id number]: Please page [facility] Hospitalist for any issues. Subjective: Admit Date: 02/09/2024 PCP: LEONID DEE MD Room#: B1-146/B1-146 A Priscila Cha is a 68 y.o. female who presents with Colostomy in place ([facility]/HCC) ([facility]) Interval History: 68-year-old female patient status post conversion to open Ronni reversal on February 08, general surgery following and we are on consult for medical management. She claims that she is better with voiding today does not want to go home with a catheter Tolerated diet, once nausea medications Denies chest pain, sob, , diarrhea, constipation, fevers, or chills. Adult diet Regular; Low Fiber 24HR INTAKE/OUTPUT: No intake or output data in the 24 hours ending 02/16/24 1031 LABS: CBC: Recent Labs 02/14/24 0604 02/15/24 0149 02/16/24 0432 WBC 7.1 6.6 7.4 RBC 2.96* 3.12* 3.11* HGB 7.5* 7.7* 7.7* HCT 23.2* 24.4* 24.1* MCV 78.4 78.2 77.5 RDW 19.0* 19.1* 18.8* PLT 415 293 537* BMP: Recent Labs 02/14/24 0604 02/15/24 0219 02/16/24 0432 NA 131* 133* 133* K 4.8 4.3 4.3 CL 101 98 100 CO2 24 25 29 BUN 6* 5* 6* CREATININE 0.54 0.53 0.61 GLUCOSE 102* 99 96 CALCIUM 8.4 8.6 8.5 ANIONGAP 7 10 5 LIVER PROFILE: Recent Labs 02/13/24 1109 02/14/24 0604 AST 20 20 ALT 11 11 BILITOT 0.7 0.5 ALKPHOS 77 85 PROT 6.3 5.9* PT/INR: No results for input(s): PROTIME , INR in the last 72 hours. CARDIAC ENZYMES: No results for input(s): TROPONINI in the last 72 hours. Procalcitonin: No results found for: PROCAL Objective: Vitals: BP 112/66 Pulse 107 Temp (!) 35.9 C (96.7 F) (Temporal) Resp 16 Ht 5' 3 (1.6 m) Wt 128 lb (58.1 kg) LMP (LMP Unknown) SpO2 91% BMI 22.67 kg/m Pulse Ox: SpO2 Av.5 % Min: 91 % Max: 94 % Supplemental O2: 02/16/2024 Physical Exam Vitals and nursing note reviewed. Constitutional: Appearance: Normal appearance. She is not ill-appearing. Comments: Anxious, HENT: Head: Normocephalic and atraumatic. Nose: Nose normal. No congestion or rhinorrhea. Mouth/Throat: Mouth: Mucous membranes are dry. Pharynx: Oropharynx is clear. No oropharyngeal exudate. Eyes: Extraocular Movements: Extraocular movements intact. Conjunctiva/sclera: Conjunctivae normal. Pupils: Pupils are equal, round, and reactive to light. Cardiovascular: Rate and Rhythm: Normal rate and regular rhythm. Pulses: Normal pulses. Heart sounds: Normal heart sounds. No murmur heard. No gallop. Pulmonary: Effort: No respiratory distress. Breath sounds: No stridor. No wheezing. Comments: Diminished breath sounds, no rhonchi Abdominal: General: Bowel sounds are normal. There is no distension. Palpations: Abdomen is soft. Tenderness: There is abdominal tenderness. There is no guarding. Comments: Abdominal incision with mild tenderness and binder Musculoskeletal: General: No swelling or tenderness. Normal range of motion. Cervical back: Normal range of motion. Skin: Coloration: Skin is not jaundiced. Findings: No bruising. Neurological: General: No focal deficit present. Mental Status: She is alert and oriented to person, place, and time. Cranial Nerves: No cranial nerve deficit. Motor: No weakness. Psychiatric: Mood and Affect: Mood normal. Judgment: Judgment normal. Comments: Agitated upset Medications: acetaminophen, 1,000 mg, IntraVENous, q8h clonazePAM, 0.5 mg, Oral, BID enoxaparin, 40 mg, SubCUTAneous, Daily gabapentin, 300 mg, Oral, BID lisinopril, 20 mg, Oral, Daily And hydroCHLOROthiazide, 25 mg, Oral, Daily methocarbamol, 1,000 mg, Oral, 3 times per day mometasone-formoterol, 2 puff, Inhalation, BID pantoprazole, 40 mg, Oral, qAM AC polyethylene glycol (PEG) 3350, 17 g, Oral, Daily sodium chloride 0.9%, 10 mL, IntraVENous, 2 times per day tiotropium, 2 puff, Inhalation, Daily traZODone, 50 mg, Oral, qPM PRN medications: albuterol, carboxymethylcellulose PF, hydrALAZINE, naloxone, ondansetron ODT OR ondansetron, oxyCODONE OR oxyCODONE, phenol, prochlorperazine, senna-docusate sodium, sodium chloride, sodium chloride 0.9% Assessment S/p robotic conversion to open Mock reversal , tolerated diet today Hypertension-continue lisinopril/hydrochlorothiazide, COPD-continue Trelegy as at home acute blood loss anemia-trend hemoglobin, today at7.7, no external bleed, needs to follow-up with PCP intermittently urinary retention monitor urine output and she is refusing a Watkins at this time Bruising-discussed with patient and discontinue Toradol, she has a prior history of this happening with Toradol Chronic problems Status post Ronni reversal 02/08- Anxiety disorder-on clonazepam ANJANA-does not use CPAP Plan Tolerated regular diet, asking for nausea medications add senna for constipation and MiraLAX Reviewed CBC and BMP Discussed with general surgery NORA regarding discharge plans and the need for stool softeners at discharge PT recommends to go home with home PT Possible discharge planning today -am labs, replace lytes prn -increase activity Diet Adult diet Regular; Low Fiber DVT Prophylaxis [x] Lovenox, [] Heparin, [] SCDs, [] Ambulation [] Already on Anticoagulation GI Prophylaxis [] PPI, [] H2 Joe, [] Carafate, [] Diet/Tube Feeds Code Status Full Code Disposition Patient requires continued admission due to status post Ronni reversal MDM [] Low, [x] Moderate,[] High Patient's risk as above Total time spent (which include face to face and non face to face encounters) : 25 minutes Toxic drug monitoring/narrow therapeutic index drug monitoring : # Drug name : # Route administered : # Method of monitoring : Extended Emergency Contact Information Primary Emergency Contact: Deja Cha [facility] Mobile Relation: Spouse Advance Directive: Full Code Discharge planning: TBD Lisa Mabry MD Division of Hospitalist Medicine [facility] [place] Assessment Type and Reason for Visit: Reassess Nutrition Recommendations/Plan: Low fiber diet education and info provided per pt request. Suggest goal of Regular/ SARAH diet per MD discretion as tolerated Per mnt protocol Sumit and Ensure supplements discontinued -pt request doesn't like MVI, Iron per MD discretion Please document % meal and supplement intakes per RN Flowsheets RD to monitor po intakes, labs, weight; follow up weekly Malnutrition Assessment: Malnutrition Status: At risk for malnutrition (Comment) (post op -GI); as previously assessed Context: Acute Illness Findings of the 6 clinical characteristics of malnutrition: Energy Intake: No significant decrease in energy intake Weight Loss: No significant weight loss Body Fat Loss: No significant body fat loss Muscle Mass Loss: No significant muscle mass loss Fluid Accumulation: No significant fluid accumulation 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 female s/p colostomy reversal 02/09/24. pt tolerating low fiber diet at this time and reports discharge today. doesn't like Ensure or Sumit and is not drinking. Questions regarding low fiber diet answered and diet information provided for homegoing per pt request. pt verbalized understanding she will add fiber slowly back to diet when MD approves. Estimated Daily Nutrient Needs: Energy Requirements Based On: Kcal/kg Weight Used for Energy Requirements: Current Weight for Energy Calculation (kg): 58 kg Total Energy Requirements (kcals/day): 6224-1622 (25-30) Weight Used for Protein Requirements: Current Weight in Kg Used for Protein Requirements: 58 kg Estimated Total Protein (g/day): 70-87 (1.2-1.5) Estimated Daily Total Fluid (ml/day): per MD Nutrition Related Findings: +2 vick LE edema, abdomen soft +bs last bm 02/12 per nursing records. na 133, bun 6, alb 3.0. hgb 7.7, hct 24.1. meds include hydrodiuril, lisinopril. no new wt to report on -unable to weigh (pt in chair) Wound Type: Surgical Incision (lower abdomen, closure of stoma; clean, dry, no drainage per surgery notes. Pt reports surgical wound from recent hip surgery is healed) Current Nutrition Therapies: Adult diet Regular; Low Fiber Current Oral Intake Average Meal Intake: 51-75%, 26-50% (per pt report) Average Supplements Intake: Refusing to take (pt dislikes) Anthropometric Measures: Height: 160 cm (5' 3 ) Current Body Weight: 58.1 kg (128 lb) Weight Source: Not Specified Admission Body Weight: 58.1 kg (128 lb) Usual Body Weight: 58.1 kg (128 lb) (per pt) % Weight Change (Calculated): 0 [place] Body Weight (lbs) (Calculated): 115 lbs [place] Body Weight (Kg) (Calculated): 52 kg % [place] Body Weight (Calculated): 111.3 % BMI (kg/m2) (Calculated): 22.7 BMI Categories: Normal Weight (BMI 18.5-24.9) Nutrition Diagnosis: Increased nutrient needs related to increase demand for energy/nutrients as evidenced by wounds Nutrition Interventions: Nutrition Education/Counseling: Education completed Coordination of Nutrition Care: Continue to monitor while inpatient Plan of Care discussed with: patient/ family Educated on low fiber Learners: Patient Readiness: Acceptance Method: Explanation and Handout; reviewed high fiber foods to limit -pt verbalizes understanding that low fiber is temporary and will add fiber back to diet slowly when MD allows Response: Verbalizes Understanding Contact name and number provided. Goals: Previous Goal Met: Progressing toward Goal(s) Goals: PO intake 75% or greater, by next RD assessment Nutrition Monitoring and Evaluation: Behavioral-Environmental Outcomes: None Identified Food/Nutrient Intake Outcomes: Food and Nutrient Intake Physical Signs/Symptoms Outcomes: Biochemical Data, GI Status, Nausea or Vomiting, Fluid Status or Edema, Hemodynamic Status, Nutrition Focused Physical Findings, Skin, Weight Discharge Planning: Continue current diet (protein food sources encouraged for wound healing) Hyacinth Mosley RD Contact: *[phone] or via Secure Chat Images from the original note were not included. PHYSICAL THERAPY [facility] Treatment Note Name/MRN: Priscila Cha ([id number]) Date of : 1955 Age: 68 y.o. Room/Bed: B1-146/B1-146 A Visit #: 1 out of 7 visits Discharge Recommendation: Home with Home health PT, Home with assist PRN Equipment Needed: No Other: Pt owns a FWW Assessment Pt just completed OT treatment and reports increased dizziness with mobility after recent pain medication. Pt kindly declining OOB mobility due to these reasons, however agreeable to bed level exercises. Pt demonstrates good understanding and effort throughout exercises and able to recall 3/5 exercises on second trial. Pt could benefit from continued PT in order to progress toward goals. [facility] PT remains recommendation at this time. Subjective Patient pleasant and agreeable to therapy session this date. Per RN patient okay for therapy. Observation: no lines present Pain: pt c/o stoma pain with 1 exercise, did not numerically rate Medical Precautions: No active isolations Proper PPE donned/doffed in accordance with facility standards. Fall Risk: Adams Fall Risk Score: 35 (Medium Risk) Precautions/Restrictions: Braces or Orthoses: abdominal binder Maintain abdominal precautions for pain management Overall Cognitive Status: pt declined decreased recall and slight grogginess - pt reports this is due to recent pain medication Overall Orientation Status: Oriented x4 Family/Caregiver Present: none Objective Exercises Quad Sets: 2 sets / 10 reps B LE in supine Heelslides: 2 sets / 10 reps R and L LE in supine Gluteal Sets: 2 sets / 10 reps in supine Hip Abduction: 2 sets / 10 reps B LE in supine Ankle Pumps: 2 sets / 20 reps B LE in supine Comments: Initiated B LE exercises in order to improve strength and activity tolerance for mobility, as well as decreasing risk of post op complications. Pt educated on technique and rationale for exercises in order to improve patients understanding and compliance with exercises. Pt demonstrates good understanding and ability to complete at this time. Pt able to teach back exercises to therapist as well as rationale in order to assure understanding, recalling 3/5 exercises prior to reminder cues for remaining 2 exercises. Plan Continue acute PT per plan of care. Safety/Education Safety Safety Devices in place: All fall risk precautions in place, call light within reach, left in bed, patient at risk for falls, nurse notified, and no alarms engaged upon entry Restraints: N/A Education Education Given To: patient Education Provided: PT Role, PT Goals, Plan of Care, Home Exercise Program, Discharge Recommendations, and Benefits of Increasing Activity Education Method: Verbal, Demonstration, and Teach Back Barriers to Learning: slight grogginess/fogginess reported from pain medicaiton Education Outcome: Verbalized Understanding, Demonstrated Understanding, and Continued Education Needed Outcome Measures AM-PAC AM-PAC Inpatient Mobility Raw Score (No Stairs) : 15 Goals Patient Stated Goal: Patient would like to return home. Encounter Problems Encounter Problems (Active) Balance Patient will maintain dynamic standing balance for 4 minutes with modified independence in order to demonstrate decreased risk of falling. (Not Addressed) Start: 02/13/24 Expected End: 02/20/24 Exercise Patient will complete lower extremity exercises for 1-2 sets / 10 reps in order to improve strength and activity tolerance for mobility. (Progressing) Start: 02/13/24 Expected End: 02/20/24 Mobility Patient will ambulate 100 feet with modified independence and least restrictive device in order to improve safety and independence with mobility. (Not Addressed) Start: 02/13/24 Expected End: 02/20/24 Patient will ascend and descend 2 stairs with one railing and modified independence in order to safely negotiate home. (Not Addressed) Start: 02/13/24 Expected End: 02/20/24 Pain - Adult Transfers Patient will perform bed mobility with modified independence in order to improve independence and prepare for out of bed mobility. (Not Addressed) Start: 02/13/24 Expected End: 02/20/24 Therapy Time Individual Co-treatment Time In 1343 Time Out 1356 Minutes 13 Timed Code Treatment Minutes: 12 Minutes (therex x 1) Marissa Holt PT Images from the original note were not included. OCCUPATIONAL THERAPY [facility] Treatment Note Name/MRN: Priscila Cha ([id number]) Date of : 1955 Age: 68 y.o. Room/Bed: B1-146/B1-146 A Visit #: 1 out of 7 visits Discharge Recommendation: Home with Home health OT, Home with assist PRN Prior Level of Function ADL Assistance: Independent Ambulation Assistance: Independent Transfer Assistance: Independent Assessment Pt agreeable to OT and would like to walk. Requesting a pain shot first (dilaudid) and states it does not make her feel woozy. Pt got up to the BSC prior to her pain meds and was supervision for BSC transfer. Declined to walk to the toilet due to urgency. Pt is able to void and perform toileting hygiene without assist. RN came to give pain meds and disconnect from the IV. Pt agreeable to gt up and walk but is now unsteady from the pain meds. Pt states she thought she would have been okay but reports always being in th bed when given pain meds. Pt is CGA to steady herself at the FWW. Walked in the room to retrieve her brush and stood to brush her hair with CGA. Functional mobility in the calle with her FWW with CGA but poor tolerance and endurance. Returned to room to sit in the chair with CGA for transfer. Chair > bed with CGA. Subjective I know I'm not ready to go home yet Pain: 0-10 pain scale: 10/10 Location: abdomen Medical Precautions: No active isolations Proper PPE donned/doffed in accordance with facility standards. Fall Risk: Adams Fall Risk Score: 35 (Medium Risk) Precautions/Restrictions: Braces or Orthoses: abdominal binder Maintain abdominal precautions for pain management Family/Caregiver Present: none Objective ADLs Grooming: Contact Guard, stood to brush her hair with CGA for balance. UE Dressing: Contact Guard, Min Assist Toileting: SBA Pt stood to don a gown around her back and is unsteady in standing after having had her pain meds. CGA to steady herself and min assist to hold gown for pt to don her arms through. Pt is SBA/supervision for toileting at the [facility] but pt delcines to walk to the bathroom to use the toilet. Pt used the BSC 2 times. Pt declines due to urgency and due to nursing needing to measure. Pt limited by pain, weakness and fatigue. Pt wore her abdominal binder throughout session. Ice pack and pillow for pressure used at end of session for pain relief. Bed Mobility Supine to sit: Supervision Sit to supine: Supervision Transfers/Mobility Sit to stand: Supervision Stand to sit: Supervision Bedside commode: Supervision, SBA Sitting balance: Modified Independent Standing balance: Contact Guard Functional mobility: Contact Guard Pt observed getting to the C prior to pain meds and had no LOB. After pain meds, pt stood up at the EOB and was very unsteady and wobbly. CGA and FWW used for steadiness. Pt walked a little in her room at then stood to brush her hair. CGA for balance. CGA for short distance functional mobility to walk the distance of 2 rooms and back to the chair. Chair > bed with th FWW with CGA. Device(s) used: front wheeled walker and bedside commode Cognition - WFL. Plan Continue acute OT per plan of care. Safety/Education Safety Safety Devices in place: All fall risk precautions in place, call light within reach, left in bed, gait belt, and nurse notified Restraints: No Education Education Given To: patient Education Provided: OT Role, Plan of Care, Precautions, ADL Adaptive Strategies, Transfer Training, Energy Conservation, Fall Prevention Education, and Benefits of Increasing Activity Education Method: Verbal and Demonstration Barriers to Learning: None Education Outcome: Verbalized Understanding, Demonstrated Understanding, and Continued Education Needed AM-PAC AM-PAC Inpatient Daily Activity Raw Score: 21 ADL Inpatient CMS G-Code Modifier: CJ Goals Patient Stated Goal: to go home Encounter Problems Encounter Problems (Active) Balance Patient will tolerate standing for 3 minutes mod I with LRD to allow increased independence in ADLs. (Progressing) Start: 02/13/24 Expected End: 02/27/24 Dressing Upper Extremities Patient will complete upper body ADLs mod I. (Progressing) Start: 02/13/24 Expected End: 02/27/24 Dressings Lower Extremities Patient will complete lower body ADLs mod I. (Not Addressed) Start: 02/13/24 Expected End: 02/27/24 Mobility Patient will demonstrate functional ambulation mod I with LRD. (Progressing) Start: 02/13/24 Expected End: 02/27/24 Toileting Patient will complete toileting tasks at standard toilet with modified independence. (Slowly Progressing) Start: 02/13/24 Expected End: 02/27/24 Transfers Patient will complete functional transfer with least restrictive device with modified independence in order to prepare for ambulation. (Progressing) Start: 02/13/24 Expected End: 02/27/24 Therapy Time Individual Co-treatment Time In 1315 Time Out 1340 Minutes 25 Timed Code Treatment Minutes: 23 Minutes (adl and ther act) MAAME Rosen hospitalist Progress Note 02/15/[phone]: Please page ky ([phone]) for patient care issues. [phone]: Please page [facility] Hospitalist for any issues. Subjective: Admit Date: 02/09/2024 PCP: LEONID DEE MD Room#: B1-146/B1-146 A Priscila Cha is a 68 y.o. female who presents with Colostomy in place ([facility]/HCC) (HCC) Interval History: 68-year-old female patient status post conversion to open Ronni reversal on February 08, general surgery following and we are on consult for medical management. Complains of constipation, takes at home senna reordered it explained to her that Dilaudid will cause side effects if she does not start to wean herself off of it and her diet is advanced to low fiber regular. Discussed with RN and she had some trouble urinating followed by intermittent voiding. Will monitor the urinary retention should she is refusing a Watkins catheter at the present time Denies chest pain, sob, , diarrhea, constipation, fevers, or chills. Adult diet Regular; Low Fiber 24HR INTAKE/OUTPUT: Intake/Output Summary (Last 24 hours) at 02/15/2024 1110 Last data filed at 02/15/2024 1010 Gross per 24 hour Intake 550 ml Output 1450 ml Net -900 ml LABS: CBC: Recent Labs 02/13/24 1109 02/14/24 0604 02/15/24 0149 WBC 9.5 7.1 6.6 RBC 3.11* 2.96* 3.12* HGB 7.6* 7.5* 7.7* HCT 24.5* 23.2* 24.4* MCV 78.8 78.4 78.2 RDW 18.8* 19.0* 19.1* PLT 396 415 293 BMP: Recent Labs 02/13/24 1109 02/14/24 0604 02/15/24 0219 NA 132* 131* 133* K 4.0 4.8 4.3 CL 98 101 98 CO2 28 24 25 BUN 9 6* 5* CREATININE 0.56 0.54 0.53 GLUCOSE 89 102* 99 CALCIUM 8.5 8.4 8.6 ANIONGAP 6 7 10 LIVER PROFILE: Recent Labs 02/13/24 1109 02/14/24 0604 AST 20 20 ALT 11 11 BILITOT 0.7 0.5 ALKPHOS 77 85 PROT 6.3 5.9* PT/INR: No results for input(s): PROTIME , INR in the last 72 hours. CARDIAC ENZYMES: No results for input(s): TROPONINI in the last 72 hours. Procalcitonin: No results found for: PROCAL Objective: Vitals: BP 136/73 Pulse 89 Temp 36.1 C (96.9 F) (Temporal) Resp 16 Ht 5' 3 (1.6 m) Wt 128 lb (58.1 kg) LMP (LMP Unknown) SpO2 90% BMI 22.67 kg/m Pulse Ox: SpO2 Av % Min: 90 % Max: 94 % Supplemental O2: 02/15/2024 Physical Exam Vitals and nursing note reviewed. Constitutional: Appearance: Normal appearance. She is not ill-appearing. Comments: Anxious, HENT: Head: Normocephalic and atraumatic. Nose: Nose normal. No congestion or rhinorrhea. Mouth/Throat: Mouth: Mucous membranes are dry. Pharynx: Oropharynx is clear. No oropharyngeal exudate. Eyes: Extraocular Movements: Extraocular movements intact. Conjunctiva/sclera: Conjunctivae normal. Pupils: Pupils are equal, round, and reactive to light. Cardiovascular: Rate and Rhythm: Normal rate and regular rhythm. Pulses: Normal pulses. Heart sounds: Normal heart sounds. No murmur heard. No gallop. Pulmonary: Effort: No respiratory distress. Breath sounds: No stridor. No wheezing. Comments: Diminished breath sounds, no rhonchi Abdominal: General: Bowel sounds are normal. There is no distension. Palpations: Abdomen is soft. Tenderness: There is abdominal tenderness. There is no guarding. Comments: Abdominal incision with mild tenderness and binder Musculoskeletal: General: No swelling or tenderness. Normal range of motion. Cervical back: Normal range of motion. Skin: Coloration: Skin is not jaundiced. Findings: No bruising. Neurological: General: No focal deficit present. Mental Status: She is alert and oriented to person, place, and time. Cranial Nerves: No cranial nerve deficit. Motor: No weakness. Psychiatric: Mood and Affect: Mood normal. Judgment: Judgment normal. Comments: Agitated upset Medications: dextrose 5 % and sodium chloride 0.45 % with KCl 20 mEq/L, 50 mL/hr, Last Rate: 50 mL/hr (02/15/24 0521) acetaminophen, 1,000 mg, IntraVENous, q8h clonazePAM, 0.5 mg, Oral, BID enoxaparin, 40 mg, SubCUTAneous, Daily gabapentin, 300 mg, Oral, BID lisinopril, 20 mg, Oral, Daily And hydroCHLOROthiazide, 25 mg, Oral, Daily methocarbamol, 1,000 mg, Oral, 3 times per day mometasone-formoterol, 2 puff, Inhalation, BID pantoprazole, 40 mg, Oral, qAM AC polyethylene glycol (PEG) 3350, 17 g, Oral, Daily sodium chloride 0.9%, 10 mL, IntraVENous, 2 times per day tiotropium, 2 puff, Inhalation, Daily traZODone, 50 mg, Oral, qPM PRN medications: albuterol, carboxymethylcellulose PF, hydrALAZINE, HYDROmorphone OR HYDROmorphone, naloxone, ondansetron ODT OR ondansetron, oxyCODONE OR oxyCODONE, phenol, senna-docusate sodium, sodium chloride, sodium chloride 0.9% Assessment S/p robotic conversion to open Mock reversal , increased diet to regular per surgery Hypertension-continue lisinopril/hydrochlorothiazide, add hydralazine as needed till she tolerates diet COPD-continue Dulera and nebulizers Reactive leukocytosis, resolved completely acute blood loss anemia-trend hemoglobin, today at7.7, no external bleed, will folow Intermittently urinary retention monitor urine output and she is refusing a Watkins at this time Bruising-discussed with patient and discontinue Toradol, she has a prior history of this happening with Toradol Chronic problems Status post Ronni reversal 02/08- Anxiety disorder-on clonazepam ANJANA-does not use CPAP Plan Advance to regular diet Add senna for constipation Reviewed CBC and BMP Ordered CBC and BMP in a.m. PT recommends to go home with home PT Possible discharge planning in the next 24 to 48 hours -am labs, replace lytes prn -increase activity Diet Adult diet Regular; Low Fiber DVT Prophylaxis [x] Lovenox, [] Heparin, [] SCDs, [] Ambulation [] Already on Anticoagulation GI Prophylaxis [] PPI, [] H2 Joe, [] Carafate, [] Diet/Tube Feeds Code Status Full Code Disposition Patient requires continued admission due to status post Ronni reversal MDM [] Low, [] Moderate,[x] High Patient's risk as above Total time spent (which include face to face and non face to face encounters) : 25 minutes Toxic drug monitoring/narrow therapeutic index drug monitoring : # Drug name : Kyreeid # Route administered : IV # Method of monitoring : Daily labs Extended Emergency Contact Information Primary Emergency Contact: Deja Cha [place] Relation: Spouse Advance Directive: Full Code Discharge planning: TBD Lisa Mabry MD Division of Hospitalist Medicine [place]patient Medical Services[place] [place] Post Op Progress Note PATIENT NAME: Priscila Cha TODAY'S DATE: 02/15/2024 SUBJECTIVE: General Surgery follow up on colostomy reversal. Overall improving. NO BM yet. Improving abdominal pain. Having some urinary retention this morning. Pain controlled YES/NO: Yes Other Complaints YES/NO: No Flatus/BM/or Ostomy function YES/NO: Yes OBJECTIVE: VITALS: BP 136/73 Pulse 89 Temp 36.1 C (96.9 F) (Temporal) Resp 16 Ht 5' 3 (1.6 m) Wt 128 lb (58.1 kg) LMP (LMP Unknown) SpO2 90% BMI 22.67 kg/m INTAKE/OUTPUT: I/O last 3 completed shifts: In: 550 (9.5 mL/kg) [P.O.:550] Out: 1350 (23.3 mL/kg) [Urine:1350 (0.6 mL/kg/hr)] Weight: 58.1 kg I/O this shift: In: - Out: 100 [Urine:100] CONSTITUTIONAL: awake and alert ABDOMEN: soft and mildly distended incision tenderness INCISION: clean, dry, no drainage Data: CBC: Recent Labs 02/13/24 1109 02/14/24 0604 02/15/24 0149 WBC 9.5 7.1 6.6 HGB 7.6* 7.5* 7.7* HCT 24.5* 23.2* 24.4* PLT 396 415 293 BMP: Recent Labs 02/13/24 1109 02/14/24 0604 02/15/24 0219 NA 132* 131* 133* K 4.0 4.8 4.3 CL 98 101 98 CO2 28 24 25 BUN 9 6* 5* CREATININE 0.56 0.54 0.53 GLUCOSE 89 102* 99 Hepatic: Recent Labs 02/13/24 1109 02/14/24 0604 AST 20 20 ALT 11 11 BILITOT 0.7 0.5 ALKPHOS 77 85 ASSESSMENT AND PLAN:Ms. Cha is a 68 y/o F who presents s/p 1. Robotic converted to open Ronni reversal (partial colectomy with colorectal anastomosis) 2. Open appendectomy 3. Open small bowel resection 4. Open colorrhaphy 5. Flexible sigmoidoscopy POD #6 - Tolerating FLD advance to low fiber - discontinue IVF - Positive flatus, NO BM - Encouraged OOB to chair and ambulate - IS - Urinary retention - okay to straight cath if continues watkins to be placed with urology follow up. - DVT ppx: Lovenox - PRN pain medication Po first only use dilaudid if uncontrolled, wean off IV - Disposition: Patient improving. Trial Low fiber. Continue to wean off IV narcotic. Plan for discharge tomorrow Fernando Stiven Black, [employer] - [employer] Hospitalist Progress Note 02/14/[id number]: Please page me ([phone]) for patient care issues. [phone]: Please page [place] [facility] Hospitalist for any issues. Subjective: Admit Date: 02/09/2024 PCP: LEONID DEE MD Room#: B1-146/B1-146 Maik Cha is a 68 y.o. female who presents with Colostomy in place (CMS/HCC) (HCC) Interval History: 68-year-old female patient status post conversion to open Ronni reversal on February 08, general surgery following and we are on consult for medical management. Tolerated to full liquid diet , and the patient is upset about medications . Discussed with patient that dilaudid and pain meds have side effects Denies chest pain, sob, , diarrhea, constipation, fevers, or chills. Adult diet Full liquid 24HR INTAKE/OUTPUT: No intake or output data in the 24 hours ending 02/14/24 1454 LABS: CBC: Recent Labs 02/12/2425802/13/24110802/14/24 0604 WBC 11.5* 9.5 7.1 RBC 3.12* 3.11* 2.96* HGB 7.7* 7.6* 7.5* HCT 24.6* 24.5* 23.2* MCV 78.8 78.8 78.4 RDW 19.2* 18.8* 19.0* PLT 305 396 415 BMP: Recent Labs 02/12/2425802/13/24110802/14/24 0604 NA 137 132* 131* K 4.3 4.0 4.8 CL 100 98 101 CO2 31* 24 BUN 16 9 6* CREATININE 0.68 0.56 0.54 GLUCOSE 110* 89 102* CALCIUM 8.7 8.5 8.4 ANIONGAP 6 6 7 LIVER PROFILE: Recent Labs 02/12/24 02502/13/24 1109 02/14/24 0604 AST 23 20 20 ALT 10 11 11 BILITOT 0.5 0.7 0.5 ALKPHOS 55 77 85 PROT 5.7* 6.3 5.9* PT/INR: No results for input(s): PROTIME , INR in the last 72 hours. CARDIAC ENZYMES: No results for input(s): TROPONINI in the last 72 hours. Procalcitonin: No results found for: PROCAL Objective: Vitals: BP 134/69 (BP Location: Left arm, Patient Position: Sitting) Pulse 91 Temp 36.4 C (97.6 F) (Temporal) Resp 16 Ht 5' 3 (1.6 m) Wt 128 lb (58.1 kg) LMP (LMP Unknown) SpO2 90% BMI 22.67 kg/m Pulse Ox: SpO2 Av % Min: 90 % Max: 94 % Supplemental O2: 02/14/2024 Physical Exam Vitals and nursing note reviewed. Constitutional: General: She is not in acute distress. Appearance: Normal appearance. She is ill-appearing. Comments: Anxious, HENT: Head: Normocephalic and atraumatic. Nose: Nose normal. No congestion or rhinorrhea. Mouth/Throat: Mouth: Mucous membranes are dry. Pharynx: Oropharynx is clear. No oropharyngeal exudate. Eyes: Extraocular Movements: Extraocular movements intact. Conjunctiva/sclera: Conjunctivae normal. Pupils: Pupils are equal, round, and reactive to light. Cardiovascular: Rate and Rhythm: Normal rate and regular rhythm. Pulses: Normal pulses. Heart sounds: Normal heart sounds. No murmur heard. No gallop. Pulmonary: Effort: No respiratory distress. Breath sounds: No stridor. No wheezing. Comments: Diminished breath sounds, no rhonchi Abdominal: General: Bowel sounds are normal. There is no distension. Palpations: Abdomen is soft. Tenderness: There is abdominal tenderness. There is no guarding. Comments: Abdominal incision with mild tenderness and binder Musculoskeletal: General: No swelling or tenderness. Normal range of motion. Cervical back: Normal range of motion. Skin: Coloration: Skin is not jaundiced. Findings: No bruising. Neurological: General: No focal deficit present. Mental Status: She is alert and oriented to person, place, and time. Cranial Nerves: No cranial nerve deficit. Motor: No weakness. Psychiatric: Mood and Affect: Mood normal. Judgment: Judgment normal. Comments: Agitated upset Medications: dextrose 5 % and sodium chloride 0.45 % with KCl 20 mEq/L, 50 mL/hr, Last Rate: 50 mL/hr (02/14/24 1155) acetaminophen, 1,000 mg, IntraVENous, q8h clonazePAM, 0.5 mg, Oral, BID enoxaparin, 40 mg, SubCUTAneous, Daily gabapentin, 300 mg, Oral, BID lisinopril, 20 mg, Oral, Daily And hydroCHLOROthiazide, 25 mg, Oral, Daily methocarbamol, 1,000 mg, Oral, 3 times per day mometasone-formoterol, 2 puff, Inhalation, BID sodium chloride 0.9%, 10 mL, IntraVENous, 2 times per day tiotropium, 2 puff, Inhalation, Daily traZODone, 50 mg, Oral, qPM PRN medications: albuterol, carboxymethylcellulose PF, hydrALAZINE, HYDROmorphone OR HYDROmorphone, naloxone, ondansetron ODT OR ondansetron, oxyCODONE OR oxyCODONE, phenol, sodium chloride, sodium chloride 0.9% Assessment S/p robotic conversion to open Mock reversal , tolerating clears and increase diet to full liquid diet Hypertension-continue lisinopril/hydrochlorothiazide, add hydralazine as needed till she tolerates diet COPD-continue Dulera and nebulizers Reactive leukocytosis, from surgery improving Acute blood loss anemia-trend hemoglobin, today at7.8, no external bleed, will folow Bruising-discussed with patient and discontinue Toradol, she has a prior history of this happening with Toradol Chronic problems Status post Ronni reversal 02/08- Anxiety disorder-on clonazepam ANJANA-does not use CPAP Plan Advance diet to full liquid diet PT/ OT evaluation for DC planning Reviewed CBC and BMP Ordered CBC and BMP in a.m. PT recommends to go home with home PT -am labs, replace lytes prn -increase activity Diet Adult diet Full liquid DVT Prophylaxis [x] Lovenox, [] Heparin, [] SCDs, [] Ambulation [] Already on Anticoagulation GI Prophylaxis [] PPI, [] H2 Joe, [] Carafate, [] Diet/Tube Feeds Code Status Full Code Disposition Patient requires continued admission due to status post Ronni reversal MDM [] Low, [] Moderate,[x] High Patient's risk as above Total time spent (which include face to face and non face to face encounters) : 25 minutes Toxic drug monitoring/narrow therapeutic index drug monitoring : # Drug name : Kyreeid # Route administered : IV # Method of monitoring : Daily labs Extended Emergency Contact Information Primary Emergency Contact: Deja Cha [facility] Mobile Relation: Spouse Advance Directive: Full Code Discharge planning: TBD Lisa Mabry MD Division of Hospitalist Medicine [place]patient Medical Services[place] [place] Post Op Progress Note PATIENT NAME: Priscila Cha TODAY'S DATE: 02/14/2024 SUBJECTIVE: General Surgery follow up on colostomy reversal. Patient seen sitting in bed. Patient reports was not able to tolerate much being in the chair due to pain. States some nausea with the FLD. Passing flatus no BM. Pain controlled YES/NO: Yes Other Complaints YES/NO: No Flatus/BM/or Ostomy function YES/NO: Yes OBJECTIVE: VITALS: BP 134/69 (BP Location: Left arm, Patient Position: Sitting) Pulse 91 Temp 36.4 C (97.6 F) (Temporal) Resp 16 Ht 5' 3 (1.6 m) Wt 128 lb (58.1 kg) LMP (LMP Unknown) SpO2 90% BMI 22.67 kg/m INTAKE/OUTPUT: I/O last 3 completed shifts: In: 1400 (24.1 mL/kg) [IV Piggyback:1400] Out: 490 (8.4 mL/kg) [Urine:490 (0.2 mL/kg/hr)] Weight: 58.1 kg No intake/output data recorded. CONSTITUTIONAL: awake and alert ABDOMEN: soft, distended, and incisional abdominal pain INCISION: clean, dry, no drainage. [place]man intact. Data: CBC: Recent Labs 02/12/24 0259 02/13/24 1109 02/14/24 0604 WBC 11.5* 9.5 7.1 HGB 7.7* 7.6* 7.5* HCT 24.6* 24.5* 23.2* PLT 305 396 415 BMP: Recent Labs 02/12/24 0259 02/13/24 1109 02/14/24 0604 NA 137 132* 131* K 4.3 4.0 4.8 CL 100 98 101 CO2 31* 28 24 BUN 16 9 6* CREATININE 0.68 0.56 0.54 GLUCOSE 110* 89 102* Hepatic: Recent Labs 02/12/24 0259 02/13/24 1109 02/14/24 0604 AST 23 20 20 ALT 10 11 11 BILITOT 0.5 0.7 0.5 ALKPHOS 55 77 85 ASSESSMENT AND PLAN: Ms. hCa is a 68 y/o F who presents s/p 1. Robotic converted to open Ronni reversal (partial colectomy with colorectal anastomosis) 2. Open appendectomy 3. Open small bowel resection 4. Open colorrhaphy 5. Flexible sigmoidoscopy POD #5 - FLD with some nausea - Positive flatus, NO BM - IVF decrease - Encouraged OOB to chair and ambulate - IS - DVT ppx: Lovenox - PRN pain medication Po first only use dilaudid if uncontrolled, wean off IV - Disposition: Mild nausea with FLD. Advance diet as tolerated. Pain control wean off IV narcotic. OOB to chair. Fernando Brady APRN - [employer] Images from the original note were not included. OCCUPATIONAL THERAPY [facility] Name/MRN: Priscila Cha ([id number]) Date: 02/14/2024 Chart reviewed. Pt lying in bed upon therapist arrival. Pt politely declining therapy this morning due to 10/10 abdominal pain. States nurse is currently getting her pain meds. Agreeable and looking forward to participating in therapy during the pm. Will re attempt as pt available/agreeable and therapist schedule allows. Edna Piper OT Images from the original note were not included. OCCUPATIONAL THERAPY [facility] Initial Evaluation Name/MRN: Priscila Cha ([id number]) Evaluation Date: 02/13/2024 Date of : 1955 Admission Date: 02/09/2024 5:49 AM Age: 68 y.o. Room/Bed: B1-146/B1-146 A Discharge Recommendation: Home with Home health OT, Home with assist PRN Assessment IMPRESSION: Pt s/p 1. Robotic converted to open Ronni reversal (partial colectomy with colorectal anastomosis) 2. Open appendectomy 3. Open small bowel resection 4. Open colorrhaphy 5. Flexible sigmoidoscopy 02/10/24. Prior to admission, pt was independent in ADLs, functional transfers and mobility with no device. Pt now requires SBA-min A for ADLs, SBA for functional transfers and CGA for mobility at [facility]. Pt is limited by impaired balance and endurance. Pt should benefit from skilled OT services in order to increase safety and independence in occupational participation. Performance Deficits /Impairments: Decreased Functional Mobility, Decreased ADL status, Decreased Endurance, Decreased Balance, and Decreased High Level IADLs Prognosis: Good Decision Making: Medium Complexity Subjective Pt pleasant and cooperative. Per RN, ok for pt to participate in OT eval. Co-eval with PT as pt declined earlier d/t pain. Abdominal binder intact. Pain: Pt c/o pain in abdomen, did not numerically rate. Past Medical History: Past Medical History: Diagnosis Date Anxiety Arthritis COPD exacerbation ([facility]) 06/20/2022 Motion sickness Pneumonia 03/04/2019 Primary hypertension 06/24/2023 Sleep apnea does not use CPAP Past Surgical History: Past Surgical History: Procedure Laterality Date APPENDECTOMY 02/09/2024 BACK SURGERY N/A 2017 [facility] back in [facility] COLONOSCOPY N/A 01/02/2024 Performed by Jefe Arias MD at [facility] ENDOSCOPY COLOSTOMY COLOSTOMY CLOSURE 02/09/2024 DILATION AND CURETTAGE OF UTERUS EXPLORATORY LAPAROTOMY 11/04/2023 colon resection, colostomy HIP ARTHROPLASTY Right 2023 MANDIBLE SURGERY Bilateral 1983 wires on both jaws now SEPTOPLASTY SMALL INTESTINE SURGERY 02/09/2024 resection TONSILLECTOMY (HISTORICAL) Admission Diagnosis: Patient Active Problem List Diagnosis Date Noted History of motion sickness 02/02/2024 ANJANA (obstructive sleep apnea) 02/02/[address] (CMS/HCC) ([facility]) 01/05/2024 Postoperative examination 12/20/2023 Severe malnutrition (CMS/HCC) ([facility]) 11/05/2023 Abdominal pain, generalized 11/04/2023 LLQ abdominal pain 09/27/2023 Intra-abdominal abscess (CMS/HCC) ([facility]) 08/02/2023 Antibiotic drug intolerance 08/02/2023 Sigmoid diverticulitis 07/19/2023 Moderate malnutrition (CMS/HCC) ([facility]) 07/04/2023 Chronic pain 06/24/2023 Multilevel degenerative disc disease 06/24/2023 Spondylolisthesis at L5-S1 level 06/24/2023 Primary hypertension 06/24/2023 Diverticulitis 06/23/2023 COPD exacerbation ([facility]) 06/20/2022 Community acquired pneumonia 01/13/2022 Spondylolisthesis of lumbar region 07/06/2017 Spondylolisthesis at L4-L5 level 07/06/2017 Chest pain 06/19/2022 Dizziness 10/15/2021 Pneumonia 03/04/2019 Medical Precautions: No active isolations Proper PPE donned/doffed in accordance with facility standards. Fall Risk: Adams Fall Risk Score: 50 (High Risk) Precautions/Restrictions: Braces or Orthoses: abdominal binder Maintain abdominal precautions for pain management Family/Caregiver Present: none Overall Cognitive Status: WFL Overall Orientation Status: Oriented x4 Social/Functional History Patient admitted from home. Lives With: Spouse Type of Home: single family home Home Layout: Two Level Home, 1/2 Bath on Main Floor, and Bed/Bed Upstairs Home Access: Stairs to Enter with Rails (# of stairs: 2) Bathroom Shower/Tub: Shower Chair with Back, Walk in Shower, and Grab Bars Toilet: Handicap Height and Grab Bars Home Equipment: front wheeled walker and cane Homemaking Responsibilities: Independent Receives Help From: Spouse Active Commercial Roofer: Yes Prior Level of Function ADL Assistance: Independent Ambulation Assistance: Independent Transfer Assistance: Independent Objective ADLs Pt with increased abdominal pain as well as impaired balance and endurance, requiring increased assist for ADLs. Upper Extremity Assessment AROM: WFL PROM: WFL Strength: WFL Vision: no visual deficits Hearing: normal Bed Mobility Supine to sit: SBA Sit to supine: in recliner post-session Scooting: SBA HOB elevated with use of bed features, denied dizziness with changes in positioning. Transfers/Functional Mobility Sit to stand: SBA Stand to sit: SBA Functional mobility: Contact Guard Pt completed STS from EOB and to recliner with fww and VC for safe hand placement as pt attempted to hold onto fww during transfers. Pt ambulated a functional distance in calle with CGA with slight instability but no true LOB noted. Device(s) used: front wheeled walker AM-PAC AM-PAC Inpatient Daily Activity Raw Score: 19 ADL Inpatient CMS G-Code Modifier: CK Plan Pt would benefit from skilled acute OT services to address Balance Training, Functional Mobility Training, Endurance Training, Pain Management, Safety Education and Training, Patient/Caregiver Training, Equipment Evaluation/Education, Positioning, Self-Care/ADL Training, and Home Management Training. Frequency: 7 visits during current hospital admission or until additional recommendations are made Barriers: Decreased endurance Prognosis: good Safety/Education Safety Safety Devices in place: All fall risk precautions in place, call light within reach, left in chair, gait belt, patient at risk for falls, nurse notified, and no alarms engaged upon entry Restraints: No Education Education Given To: patient Education Provided: OT Role, Plan of Care, Transfer Training, Fall Prevention Education, Discharge Recommendations, and Benefits of Increasing Activity Education Method: Verbal Barriers to Learning: None Education Outcome: Verbalized Understanding, Demonstrated Understanding, and Continued Education Needed Goals Patient Stated Goal: to go home Encounter Problems Encounter Problems (Active) Balance Patient will tolerate standing for 3 minutes mod I with LRD to allow increased independence in ADLs. Start: 02/13/24 Expected End: 02/27/24 Dressing Upper Extremities Patient will complete upper body ADLs mod I. Start: 02/13/24 Expected End: 02/27/24 Dressings Lower Extremities Patient will complete lower body ADLs mod I. Start: 02/13/24 Expected End: 02/27/24 Mobility Patient will demonstrate functional ambulation mod I with LRD. Start: 02/13/24 Expected End: 02/27/24 Toileting Patient will complete toileting tasks at standard toilet with modified independence. Start: 02/13/24 Expected End: 02/27/24 Transfers Patient will complete functional transfer with least restrictive device with modified independence in order to prepare for ambulation. Start: 02/13/24 Expected End: 02/27/24 Therapy Time Individual Co-treatment Time In 1455 Time Out 1507 Minutes 12 Saida Young OT Patient's Occupational Therapy Plan of Care supervision is transferred to a [facility] Therapy Services Occupational Therapist. Goals and/or treatment plan was established in collaboration with patient/family/other representatives. Images from the original note were not included. PHYSICAL THERAPY [facility] Initial Evaluation Name/MRN: Priscila Cha ([id number]) Evaluation Date: 02/13/2024 Date of : 1955 Admission Date: 02/09/2024 5:49 AM Age: 68 y.o. Room/Bed: B1-146/B1-146 A Discharge Recommendation: Home with Home health PT, Home with assist PRN Assessment IMPRESSION: Pt presents with decreased functional mobility, decreased strength, decreased safety awareness, decreased endurance and impaired balance. Pt has decreased standing balance requiring 1 person and CGA for safety at this time placing her at an increased risk of falling. Pt could benefit from continued PT in order to address her decreased functional mobility, strength, balance and safety. Pt has medical history as indicated below that contributes to her clinical presentation. At baseline patient is functionally independent with no device. Currently patient is CGA with FWW and is anticipated to progress with acute therapies and medical management in order to return home with assist and [facility] PT. Diagnosis: Patient admitted with post robotic/open Ronni reversal on 02/09/2024. Prognosis: good Performance Deficits /Impairments: Increased Pain, Decreased Functional Mobility, Decreased Strength, Decreased Endurance, and Decreased Balance Decision Making: Medium Complexity Subjective Patient pleasant and agreeable to therapy session this date. Per RN, patient okay for therapy. Co-eval with OT. Observation: PIV intact. Pain: Patient noted pain in her abdomen that was not rated numerically. Past Medical History: Past Medical History: Diagnosis Date Anxiety Arthritis COPD exacerbation (HCC) 06/20/2022 Motion sickness Pneumonia 03/04/2019 Primary hypertension 06/24/2023 Sleep apnea does not use CPAP Past Surgical History: Past Surgical History: Procedure Laterality Date APPENDECTOMY 02/09/2024 BACK SURGERY N/A 2017 lower back in middle COLONOSCOPY N/A 01/02/2024 Performed by Jefe Arias MD at [facility] ENDOSCOPY COLOSTOMY COLOSTOMY CLOSURE 02/09/2024 DILATION AND CURETTAGE OF UTERUS EXPLORATORY LAPAROTOMY 11/04/2023 colon resection, colostomy HIP ARTHROPLASTY Right 2023 MANDIBLE SURGERY Bilateral 1983 wires on both jaws now SEPTOPLASTY SMALL INTESTINE SURGERY 02/09/2024 resection TONSILLECTOMY (HISTORICAL) Admission Diagnosis: Patient Active Problem List Diagnosis Date Noted History of motion sickness 02/02/2024 ANJANA (obstructive sleep apnea) 02/02/[address] (CMS/HCC) ([facility]) 01/05/2024 Postoperative examination 12/20/2023 Severe malnutrition (CMS/HCC) ([facility]) 11/05/2023 Abdominal pain, generalized 11/04/2023 LLQ abdominal pain 09/27/2023 Intra-abdominal abscess (CMS/HCC) ([facility]) 08/02/2023 Antibiotic drug intolerance 08/02/2023 Sigmoid diverticulitis 07/19/2023 Moderate malnutrition (CMS/HCC) ([facility]) 07/04/2023 Chronic pain 06/24/2023 Multilevel degenerative disc disease 06/24/2023 Spondylolisthesis at L5-S1 level 06/24/2023 Primary hypertension 06/24/2023 Diverticulitis 06/23/2023 COPD exacerbation ([facility]) 06/20/2022 Community acquired pneumonia 01/13/2022 Spondylolisthesis of lumbar region 07/06/2017 Spondylolisthesis at L4-L5 level 07/06/2017 Chest pain 06/19/2022 Dizziness 10/15/2021 Pneumonia 03/04/2019 Medical Precautions: No active isolations Proper PPE donned/doffed in accordance with facility standards. Fall Risk: Adams Fall Risk Score: 50 (High Risk) Precautions/Restrictions: Braces or Orthoses: abdominal binder Family/Caregiver Present: none Overall Cognitive Status: WFL Overall Orientation Status: Oriented x4 Vision: no visual deficits Hearing: normal Social/Functional History Patient admitted from home. Lives With: Spouse Type of Home: single family home Home Layout: Two Level Home, 1/2 Bath on Main Floor, and Bed/Bed Upstairs Home Access: Stairs to Enter with Rails (# of stairs: 2) Bathroom Shower/Tub: Shower Chair with Back, Walk in Shower, and Grab Bars Toilet: Handicap Height and Grab Bars Home Equipment: front wheeled walker and cane Homemaking Responsibilities: Independent Receives Help From: Spouse Active Commercial Roofer: Yes Prior Level of Function ADL Assistance: Pt independent prior to L LENNOX, now requires assist Ambulation Assistance: Prior to L LENNOX pt ambulated with no device, pt now ambulates with fww Transfer Assistance: Independent Objective Lower Extremity Assessment AROM: WFL Strength: Pt demonstrates appropriate B LE and quad strength in order to safely participate in OOB mobility Bed Mobility: Supine to sit: SBA Sit to supine: NT left in chair end of session Scooting: SBA Patient able to complete bed mobility tasks with SBA and increased time to complete. Patient denies dizziness upon positional changes. Transfers Sit to stand: SBA, From EOB to FWW Stand to sit: SBA, From FWW to recliner Patient able to complete STS transfers with use of FWW and SBA. Patient demonstrates proper use of walker. Patient denies dizziness upon initial stance. No true LOB or instability noted. Ambulation Ambulation 1 Assistive device(s) used: front wheeled walker Assist level: Contact Guard Distance (ft): 150 ft Quality of gait: No LOB, reciprocal stepping, equal step length, slow [place] Patient able to ambulate 150 ft in the halls with FWW and CGA. Patient noted slight fatigue after 75 ft. Patient stated that it feels good to walk. No true LOB or instability noted. Outcome Measures AM-PAC How much HELP from another person do you currently need Turning from your back to your side while in a flat bed without using bedrails?: A Little Moving from lying on your back to sitting on the side of a flat bed without using bedrails?: A Little Moving to and from a bed to a chair (including a wheelchair)?: A Little Standing up from a chair using your arms (wheelchair or bedside chair)?: A Little Walking in a hospital room?: A Little Stair climbing assessed?: No AM-PAC Inpatient Mobility Raw Score (No Stairs) : 15 Plan Pt would benefit from skilled acute PT services to address Strengthening, Balance Training, Functional Mobility Training, Endurance Training, Gait Training, Stair Training, Safety Education and Training, Patient/Caregiver Training, and Equipment Evaluation/Education. Frequency: 7 visits Barriers: Pain Safety/Education Safety Safety Devices in place: All fall risk precautions in place, call light within reach, left in chair, gait belt, patient at risk for falls, nurse notified, and no alarms engaged upon entry Restraints: N/A Education Education Given To: patient Education Provided: PT Role, PT Goals, Gait Training, Plan of Care, Transfer Training, Equipment, Fall Prevention Education, Discharge Recommendations, and Benefits of Increasing Activity Education Method: Verbal, Demonstration, and Teach Back Barriers to Learning: None Education Outcome: Verbalized Understanding, Demonstrated Understanding, and Continued Education Needed Goals Patient Stated Goal: Patient would like to return home. Encounter Problems Encounter Problems (Active) Balance Patient will maintain dynamic standing balance for 4 minutes with modified independence in order to demonstrate decreased risk of falling. Start: 02/13/24 Expected End: 02/20/24 Exercise Patient will complete lower extremity exercises for 1-2 sets / 10 reps in order to improve strength and activity tolerance for mobility. Start: 02/13/24 Expected End: 02/20/24 Mobility Patient will ambulate 100 feet with modified independence and least restrictive device in order to improve safety and independence with mobility. Start: 02/13/24 Expected End: 02/20/24 Patient will ascend and descend 2 stairs with one railing and modified independence in order to safely negotiate home. Start: 02/13/24 Expected End: 02/20/24 Pain - Adult Transfers Patient will perform bed mobility with modified independence in order to improve independence and prepare for out of bed mobility. Start: 02/13/24 Expected End: 02/20/24 Therapy Time Individual Co-treatment Time In 1455 Time Out 1507 [facility]'s Physical Therapy Plan of Care supervision is transferred to a [facility] Therapy Services Physical Therapist. Goals and/or treatment plan was established in collaboration with patient/family/other representatives. Surgery Post Op Progress Note PATIENT NAME: Priscila Cha TODAY'S DATE: 02/13/2024 SUBJECTIVE: General Surgery follow up on colostomy reversal. Main complaint of abdominal pain. States not doing well with the pain regimen and asking for increase in frequency. States PO does help but not lasting long enough. NO N/V. Passing flatus no BM. Pain controlled YES/NO: Yes Other Complaints YES/NO: No Flatus/BM/or Ostomy function YES/NO: Yes OBJECTIVE: VITALS: BP 140/65 Pulse 82 Temp 36.5 C (97.7 F) (Temporal) Resp 16 Ht 5' 3 (1.6 m) Wt 128 lb (58.1 kg) LMP (LMP Unknown) SpO2 90% BMI 22.67 kg/m INTAKE/OUTPUT: I/O last 3 completed shifts: In: 2575 (44.4 mL/kg) [I.V.:1175 (20.2 mL/kg); IV Piggyback:1400] Out: 2040 (35.1 mL/kg) [Urine:1040 (0.5 mL/kg/hr); Emesis/NG output:1000] Weight: 58.1 kg No intake/output data recorded. CONSTITUTIONAL: awake and alert ABDOMEN: soft, minimally distended, tenderness diffusely. INCISION: clean, dry, no drainage Data: CBC: Recent Labs 02/11/24 0320 02/12/24 0259 02/13/24 1109 WBC 14.1* 11.5* 9.5 HGB 8.5* 7.7* 7.6* HCT 26.2* 24.6* 24.5* PLT 290 305 396 BMP: Recent Labs 02/11/24 0320 02/12/24 0259 02/13/24 1109 NA 134* 137 132* K 4.1 4.3 4.0 CL 105 100 98 CO2 26 31* 28 BUN 14 16 9 CREATININE 0.59 0.68 0.56 GLUCOSE 117* 110* 89 Hepatic: Recent Labs 02/12/24 0259 02/13/24 1109 AST 23 20 ALT 10 11 BILITOT 0.5 0.7 ALKPHOS 55 77 ASSESSMENT AND PLAN: Ms. Cha is a 68 y/o F who presents s/p 1. Robotic converted to open Ronni reversal (partial colectomy with colorectal anastomosis) 2. Open appendectomy 3. Open small bowel resection 4. Open colorrhaphy 5. Flexible sigmoidoscopy POD #4 - Tolerating CLD will advance to FLD - Positive flatus - Encouraged OOB to chair - IS - DVT ppx: Lovenox - PRN pain medication increase PO frequency to q 4 and trial first and only use dilaudid if uncontrolled - Disposition: Increased to FLD. Pain control. OOB to chair. Will slowly advance diet as tolerated. Fernando Brady, ENGRAVINGS POLISH[employer] - [employer]PER[employer] Hospitalist Progress Note 02/13/[id number]: Please page me ([phone]) for patient care issues. [phone]: Please page [facility] Hospitalist for any issues. Subjective: Admit Date: 02/09/2024 PCP: LEONID DEE MD Room#: B1-146/B1-146 Maik Cha is a 68 y.o. female who presents with Colostomy in place (CMS/HCC) (HCC) Interval History: 68-year-old female patient status post conversion to open Ronni reversal on February 08, general surgery following and we are on consult for medical management. NG tube is out and she is tolerating clear liquids. Mild abdominal discomfort Asking for pain meds to be increased , surgery increased to full liquid diet, refused labs today , wants sales and service technician to do it Denies chest pain, sob, nausea, vomiting, diarrhea, constipation, fevers, or chills. Adult diet Full liquid 24HR INTAKE/OUTPUT: Intake/Output Summary (Last 24 hours) at 02/13/2024 0948 Last data filed at 02/13/2024 0550 Gross per 24 hour Intake 2400 ml Output 1040 ml Net 1360 ml LABS: CBC: Recent Labs 02/11/24 0320 02/12/24 0259 02/13/24 1109 WBC 14.1* 11.5* 9.5 RBC 3.39* 3.12* 3.11* HGB 8.5* 7.7* 7.6* HCT 26.2* 24.6* 24.5* MCV 77.3 78.8 78.8 RDW 18.9* 19.2* 18.8* PLT 290 305 396 BMP: Recent Labs 02/11/24 0320 02/12/24 025 NA 134* 137 K 4.1 4.3 CL 105 100 CO2 26 31* BUN 14 16 CREATININE 0.59 0.68 GLUCOSE 117* 110* CALCIUM 8.6 8.7 ANIONGAP 3 6 LIVER PROFILE: Recent Labs 02/12/24 025 AST 23 ALT 10 BILITOT 0.5 ALKPHOS 55 PROT 5.7* PT/INR: No results for input(s): PROTIME , INR in the last 72 hours. CARDIAC ENZYMES: No results for input(s): TROPONINI in the last 72 hours. Procalcitonin: No results found for: PROCAL Objective: Vitals: BP 140/65 Pulse 82 Temp 36.5 C (97.7 F) (Temporal) Resp 16 Ht 5' 3 (1.6 m) Wt 128 lb (58.1 kg) LMP (LMP Unknown) SpO2 90% BMI 22.67 kg/m Pulse Ox: SpO2 Av.5 % Min: 90 % Max: 93 % Supplemental O2: 02/13/2024 Physical Exam Medications: dextrose 5 % and sodium chloride 0.45 % with KCl 20 mEq/L, 100 mL/hr, Last Rate: 100 mL/hr (02/12/24 4875) acetaminophen, 1,000 mg, IntraVENous, q8h clonazePAM, 0.5 mg, Oral, BID enoxaparin, 40 mg, SubCUTAneous, Daily [Held by provider] gabapentin, 300 mg, Oral, BID lisinopril, 20 mg, Oral, Daily And hydroCHLOROthiazide, 25 mg, Oral, Daily methocarbamol, 1,000 mg, Oral, 3 times per day mometasone-formoterol, 2 puff, Inhalation, BID sodium chloride 0.9%, 10 mL, IntraVENous, 2 times per day tiotropium, 2 puff, Inhalation, Daily traZODone, 50 mg, Oral, qPM PRN medications: albuterol, carboxymethylcellulose PF, hydrALAZINE, HYDROmorphone OR HYDROmorphone, naloxone, ondansetron ODT OR ondansetron, oxyCODONE OR oxyCODONE, phenol, sodium chloride, sodium chloride 0.9% Assessment S/p robotic conversion to open Mock reversal , tolerating clears and increase diet to full liquid diet Hypertension-continue lisinopril/hydrochlorothiazide, add hydralazine as needed till she tolerates diet COPD-continue Dulera and nebulizers Reactive leukocytosis, from surgery improving Acute blood loss anemia-trend hemoglobin, today at 7.6 question dilutional, will follow Bruising-discussed with patient and discontinue Toradol, she has a prior history of this happening with Toradol Chronic problems Status post Ronni reversal 02/08- Anxiety disorder-on clonazepam ANJANA-does not use CPAP Plan Advance diet to full liquid diet PT/ OT evaluation for DC planning Reviewed CBC and BMP Ordered CBC and BMP in a.m. Await physical therapy evaluation for placement -am labs, replace lytes prn -increase activity Diet Adult diet Clear liquid DVT Prophylaxis [x] Lovenox, [] Heparin, [] SCDs, [] Ambulation [] Already on Anticoagulation GI Prophylaxis [] PPI, [] H2 Joe, [] Carafate, [] Diet/Tube Feeds Code Status Full Code Disposition Patient requires continued admission due to status post Ronni reversal MDM [] Low, [] Moderate,[x] High Patient's risk as above Total time spent (which include face to face and non face to face encounters) : 25 minutes Toxic drug monitoring/narrow therapeutic index drug monitoring : # Drug name : Dilaudid # Route administered : IV # Method of monitoring : Daily labs Extended Emergency Contact Information Primary Emergency Contact: Deja Cha [facility] Mobile Relation: Spouse Advance Directive: Full Code Discharge planning: TBD Lisa Mabry MD Division of Hospitalist Medicine [facility]patient [facility] Services[place] [place] Assessment Type and Reason for Visit: Initial (Certified Legal Secretary Specialist referral) Nutrition Recommendations/Plan: Suggest adv diet as medically indicated - low fiber Per mnt protocol will order Cyrus Ensure Plus daily ( 350 kcals 20 gm protein) and Sumit daily (90 kcals, 14 g amino acids, and 300 mg Vitamin C per packet serving) RD to monitor pt's tolerance to diet advance/ po intake, labs, skin status and weight; follow up weekly Malnutrition Assessment: Malnutrition Status: At risk for malnutrition (Comment) (post op -GI) Context: Acute Illness Findings of the 6 clinical characteristics of malnutrition: Energy Intake: No significant decrease in energy intake Weight Loss: No significant weight loss Body Fat Loss: No significant body fat loss Muscle Mass Loss: No significant muscle mass loss Fluid Accumulation: No significant fluid accumulation 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 female s/p robotic converted to open Ronni reversal (partial colectomy with colorectal anastomosis), open appendectomy, open small bowel resection, open colorrhaphy 02/09/24. pmhx diverticulitis, COPD, HTN. Pt reports tolerating clear liquid diet -advanced to full today per records. 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 Estimated Daily Nutrient Needs: Energy Requirements Based On: Kcal/kg Weight Used for Energy Requirements: Current Weight for Energy Calculation (kg): 58 kg Total Energy Requirements (kcals/day): 4404-0635 (25-30) Weight Used for Protein Requirements: Current Weight in Kg Used for Protein Requirements: 58 kg Estimated Total Protein (g/day): 70-87 (1.2-1.5) Estimated Daily Total Fluid (ml/day): per MD Nutrition Related Findings: no edema, abdomen soft minimal distention, awaiting bm after surgery. 12% wt loss at ~1 year not considered clinically significant Wound Type: Surgical Incision (lower abdomen, closure of stoma) Wt Readings from Last 50 Encounters: 02/09/24 58.1 kg (128 lb) 02/02/24 58.1 kg (128 lb) 01/05/24 59.9 kg (132 lb) 01/02/24 58.1 kg (128 lb) 12/20/23 57.8 kg (127 lb 6.4 oz) 11/22/23 58.1 kg (128 lb) 11/04/23 60.8 kg (134 lb 0.6 oz) 09/27/23 61.1 kg (134 lb 12.8 oz) 08/02/23 56.7 kg (125 lb) 07/19/23 59.2 kg (130 lb 9.6 oz) 06/24/23 63.9 kg (140 lb 14 oz) 02/02/23 66 kg (145 lb 8.1 oz) Current Nutrition Therapies: Adult diet Full liquid Current Oral Intake Average Meal Intake: 26-50% (per pt report) Average Supplements Intake: None Ordered Anthropometric Measures: Height: 160 cm (5' 3 ) Current Body Weight: 58.1 kg (128 lb) Weight Source: Not Specified Admission Body Weight: 58.1 kg (128 lb) Usual Body Weight: 58.1 kg (128 lb) (per pt) % Weight Change (Calculated): 0 [place] Body Weight (lbs) (Calculated): 115 lbs [place] Body Weight (Kg) (Calculated): 52 kg % [place] Body Weight (Calculated): 111.3 % BMI (kg/m2) (Calculated): 22.7 BMI Categories: Normal Weight (BMI 18.5-24.9) Nutrition Diagnosis: Increased nutrient needs related to increase demand for energy/nutrients as evidenced by wounds Nutrition Interventions: Nutrition Education/Counseling: No recommendation at this time Coordination of Nutrition Care: Continue to monitor while inpatient Plan of Care discussed with: patient Goals: Goals: PO intake 75% or greater, prior to discharge Nutrition Monitoring and Evaluation: Behavioral-Environmental Outcomes: None Identified Food/Nutrient Intake Outcomes: Diet Advancement/Tolerance, Food and Nutrient Intake, Supplement Intake Physical Signs/Symptoms Outcomes: Biochemical Data, Chewing or Swallowing, GI Status, Nausea or Vomiting, Fluid Status or Edema, Hemodynamic Status, Meal Time Behavior, Skin, Weight, Nutrition Focused Physical Findings Discharge Planning: Too soon to determine Hyacinth Mosley RD Contact: *[phone] or via Secure Chat Pt refused to be poke, tried getting blood on IV for morning labs but could not draw blood. Dr Jorgensen notified via secure chat. Hospitalist Progress Note 02/12/2024 [phone]: Please page me ([phone]) for patient care issues. [phone]: Please page [facility] Hospitalist for any issues. Subjective: Admit Date: 02/09/2024 PCP: LEONID DEE MD Room#: B1-146/B1-146 Maik Cha is a 68 y.o. female who presents with Colostomy in place ([facility]/HCC) (HCC) Interval History: 68-year-old female patient status post conversion to open Ronni reversal on February 08, general surgery following and we are on consult for medical management. NG tube is out and she is tolerating clear liquids. Mild abdominal discomfort Feeling better today, complaints and concerns about some bruising on the lower and upper extremities, gives history that this happened with Toradol before Denies chest pain, sob, nausea, vomiting, diarrhea, constipation, fevers, or chills. Adult diet Clear liquid 24HR INTAKE/OUTPUT: Intake/Output Summary (Last 24 hours) at 02/12/2024 1535 Last data filed at 02/12/2024 1515 Gross per 24 hour Intake 1804 ml Output 1850 ml Net -46 ml LABS: CBC: Recent Labs 02/10/2435302/11/2431902/12/24258 WBC 18.0* 14.1* 11.5* RBC 3.65* 3.39* 3.12* HGB 9.1* 8.5* 7.7* HCT 28.2* 26.2* 24.6* MCV 77.3 77.3 78.8 RDW 18.6* 18.9* 19.2* PLT 272 290 305 BMP: Recent Labs 02/10/2435302/11/2431902/12/24258 NA 133* 134* 137 K 4.7 4.1 4.3 CL 107 105 100 CO2 20* 26 31* BUN 19* 14 16 CREATININE 0.69 0.59 0.68 GLUCOSE 176* 117* 110* CALCIUM 8.6 8.6 8.7 ANIONGAP 6 3 6 LIVER PROFILE: Recent Labs 02/12/24258 AST 23 ALT 10 BILITOT 0.5 ALKPHOS 55 PROT 5.7* PT/INR: No results for input(s): PROTIME , INR in the last 72 hours. CARDIAC ENZYMES: No results for input(s): TROPONINI in the last 72 hours. Procalcitonin: No results found for: PROCAL Objective: Vitals: BP 159/88 (BP Location: Right arm, Patient Position: Lying) Pulse 81 Temp 36.4 C (97.6 F) (Temporal) Resp 16 Ht 5' 3 (1.6 m) Wt 128 lb (58.1 kg) LMP (LMP Unknown) SpO2 93% BMI 22.67 kg/m Pulse Ox: SpO2 Av.3 % Min: 89 % Max: 93 % Supplemental O2: 02/12/2024 Physical Exam Vitals and nursing note reviewed. Constitutional: General: She is not in acute distress. Appearance: Normal appearance. She is ill-appearing. HENT: Head: Normocephalic and atraumatic. Nose: Nose normal. No congestion or rhinorrhea. Mouth/Throat: Pharynx: Oropharynx is clear. No oropharyngeal exudate. Eyes: Extraocular Movements: Extraocular movements intact. Conjunctiva/sclera: Conjunctivae normal. Pupils: Pupils are equal, round, and reactive to light. Cardiovascular: Rate and Rhythm: Normal rate and regular rhythm. Pulses: Normal pulses. Heart sounds: Normal heart sounds. No murmur heard. No gallop. Pulmonary: Effort: Pulmonary effort is normal. No respiratory distress. Breath sounds: Normal breath sounds. No wheezing. Abdominal: Comments: Abdominal incision w postop dressing and abdominal binder Musculoskeletal: General: No swelling or deformity. Normal range of motion. Cervical back: Normal range of motion. Comments: Small bruising present on upper and lower extremities Skin: General: Skin is warm and dry. Coloration: Skin is not jaundiced. Findings: Bruising present. Neurological: General: No focal deficit present. Mental Status: She is alert and oriented to person, place, and time. Psychiatric: Mood and Affect: Mood normal. Behavior: Behavior normal. Thought Content: Thought content normal. Medications: dextrose 5 % and sodium chloride 0.45 % with KCl 20 mEq/L, 100 mL/hr, Last Rate: 100 mL/hr (02/12/24 1334) acetaminophen, 1,000 mg, IntraVENous, q8h clonazePAM, 0.5 mg, Oral, BID enoxaparin, 40 mg, SubCUTAneous, Daily [Held by provider] gabapentin, 300 mg, Oral, BID lisinopril, 20 mg, Oral, Daily And hydroCHLOROthiazide, 25 mg, Oral, Daily ketorolac, 15 mg, IntraVENous, q6h methocarbamol, 1,000 mg, Oral, 3 times per day mometasone-formoterol, 2 puff, Inhalation, BID sodium chloride 0.9%, 10 mL, IntraVENous, 2 times per day tiotropium, 2 puff, Inhalation, Daily traZODone, 50 mg, Oral, qPM PRN medications: albuterol, carboxymethylcellulose PF, hydrALAZINE, HYDROmorphone OR HYDROmorphone, naloxone, ondansetron ODT OR ondansetron, oxyCODONE OR oxyCODONE, phenol, sodium chloride, sodium chloride 0.9% Assessment Hypertension-continue lisinopril/hydrochlorothiazide, add hydralazine as needed till she tolerates diet COPD-continue Dulera and nebulizers Reactive leukocytosis Acute blood loss anemia-trend hemoglobin, today at 7.7 question dilutional, will follow Bruising-discussed with patient and discontinue Toradol, she has a prior history of this happening with Toradol Chronic problems Status post Ronni reversal 02/08 Anxiety disorder-on clonazepam ANJANA-does not use CPAP Plan NG tube has been removed and she is tolerating clear liquids Discontinue Toradol for bruising, continue IV Dilaudid at the present time till she tolerates food Reviewed CBC and BMP Ordered CBC and BMP in a.m. Await physical therapy evaluation for placement -am labs, replace lytes prn -increase activity Diet Adult diet Clear liquid DVT Prophylaxis [x] Lovenox, [] Heparin, [] SCDs, [] Ambulation [] Already on Anticoagulation GI Prophylaxis [] PPI, [] H2 Joe, [] Carafate, [] Diet/Tube Feeds Code Status Full Code Disposition Patient requires continued admission due to status post Ronni reversal MDM [] Low, [] Moderate,[x] High Patient's risk as above Total time spent (which include face to face and non face to face encounters) : 25 minutes Toxic drug monitoring/narrow therapeutic index drug monitoring : # Drug name : Dilaudid # Route administered : IV # Method of monitoring : Daily labs Extended Emergency Contact Information Primary Emergency Contact: Deja Cha [facility] Mobile Relation: Spouse Advance Directive: Full Code Discharge planning: TBD Lisa Mabry MD Division of Hospitalist Medicine [place] [facility] [place] has purple ecchymotic areas on her chest and arms. Patient is requesting a doctor to see her. ELYSE Pradeep notified Patient says the oral pain meds are not helping. The PRN pain meds say to give the oral pain meds before the IV diluadid. Patient says the oral pain meds are not helping, and will be giving the IV diluadid instead of the oral. Patient says pain is worse today than yesterday. All of this was relayed to Dr Wayne via secure message Dr Lopez added to the bladder scan message sent at 1422 Patient voided 150 ml, then was bladder scanned for [address] Dat Wayne notified via secure message and asked for straight cath PRN order Patient says she feels better since the tube is out Patient complains of left ear pain. IMS [place] notified via secure message Patient says unable to void. Bladder scanned for [address] Dat Wayne notified via secure message Department of Surgery [facility] Daily Progress Note PATIENT NAME: Priscila Cha : 1955 ATTENDING PHYSICIAN: Adria Lopez MD ADMIT DATE: 02/09/2024 TODAY'S DATE: 02/12/2024 SUBJECTIVE No acute events overnight. Afebrile, hemodynamically stable. Abdominal pain markedly improved. NG in place with bilious output (1000 cc per 24 hours). No nausea or vomiting. Endorses flatus. Denies BM. OBJECTIVE VITALS: BP 159/88 (BP Location: Right arm, Patient Position: Lying) Pulse 81 Temp 36.4 C (97.6 F) (Temporal) Resp 16 Ht 1.6 m (5' 3 ) Wt 58.1 kg (128 lb) LMP (LMP Unknown) SpO2 93% BMI 22.67 kg/m PHYSICAL EXAM: CONSTITUTIONAL: NAD, alert, resting comfortably PULM: Resp effort easy and unlabored, bilateral chest rise CV: RRR, no lower extremity edema ABDOMEN: Soft, Non-distended, appropriate candelaria-incisional tenderness is present , no rebound or guarding Incisions: C/D/I, no signs of bleeding NEURO: Moves all extremities spontaneously and symmetrically, A&Ox3 PSYCH: Appropriate mood and affect INTAKE/OUTPUT: I/O last 3 completed shifts: In: 879 (15.1 mL/kg) [P.O.:250; I.V.:629 (10.8 mL/kg)] Out: 2000 (34.4 mL/kg) [Urine:500 (0.2 mL/kg/hr); Emesis/NG output:1500] Weight: 58.1 kg I/O this shift: In: 175 [I.V.:175] Out: - Data CBC: Lab Results Component Value Date WBC 11.5 (H) 02/12/2024 RBC 3.12 (L) 02/12/2024 HGB 7.7 (L) 02/12/2024 HCT 24.6 (L) 02/12/2024 MCV 78.8 02/12/2024 RDW 19.2 (H) 02/12/2024 PLT 305 02/12/2024 BMP: Lab Results Component Value Date NA 137 02/12/2024 K 4.3 02/12/2024 CL 100 02/12/2024 CO2 31 (H) 02/12/2024 BUN 16 02/12/2024 CREATININE 0.68 02/12/2024 EGFR >90.0 02/12/2024 PT/INR: No results found for: LABPROT , INR LFT's: Lab Results Component Value Date PROT 5.7 (L) 02/12/2024 Imaging Pertinent imaging reviewed. Current Inpatient Medications Current Facility-Administered Medications: acetaminophen (Ofirmev) IVPB 1,000 mg, 1,000 mg, IntraVENous, q8h, Dat Wayne MD, Stopped at 02/12/24 0536 albuterol 108 (90 Base) MCG/ACT inhaler 2 puff, 2 puff, Inhalation, q4h PRN, Blair Wing MD carboxymethylcellulose PF (Refresh Plus) 0.5 % ophthalmic solution 2 drop, 2 drop, Both Eyes, TID PRN, Dat Wayne MD, 2 drop at 02/10/24 0637 clonazePAM (KlonoPIN) tablet 0.5 mg, 0.5 mg, Oral, BID, April Encinas MD, 0.5 mg at 02/12/24 0839 dextrose 5 % and sodium chloride 0.45 % with KCl 20 mEq/L infusion, 100 mL/hr, IntraVENous, Continuous, Dat Wayne MD, Last Rate: 100 mL/hr at 02/12/24 0851, 100 mL/hr at 02/12/24 0851 enoxaparin (Lovenox) syringe 40 mg, 40 mg, SubCUTAneous, Daily, Dat Wayne MD, 40 mg at 02/12/24 0850 [Held by provider] gabapentin (Neurontin) capsule 300 mg, 300 mg, Oral, BID, Doni Guzman MD, 300 mg at 02/10/24 0825 hydrALAZINE (Apresoline) injection 10 mg, 10 mg, IntraVENous, q4h PRN, April Encinas MD lisinopril tablet 20 mg, 20 mg, Oral, Daily, 20 mg at 02/12/24 0839 AND hydroCHLOROthiazide (HYDRODiuril) tablet 25 mg, 25 mg, Oral, Daily, April Encinas MD, 25 mg at 02/12/24 0840 HYDROmorphone (Dilaudid) injection 0.5 mg, 0.5 mg, IntraVENous, q4h PRN OR HYDROmorphone (Dilaudid) injection 1 mg, 1 mg, IntraVENous, q4h PRN, Dat Wayne MD ketorolac (Toradol) injection 15 mg, 15 mg, IntraVENous, q6h, Dat Wayne MD, 15 mg at 02/12/24 0841 methocarbamol (Robaxin) tablet 1,000 mg, 1,000 mg, Oral, 3 times per day, Dat Wayne MD mometasone-formoterol (Dulera 100) 100-5 MCG/ACT inhaler 2 puff, 2 puff, Inhalation, BID, Dat Wayne MD, 2 puff at 02/12/24 0842 naloxone (Narcan) injection 0.4 mg, 0.4 mg, IntraVENous, q5 min PRN, Juan Molina MD ondansetron ODT (Zofran-ODT) disintegrating tablet 4 mg, 4 mg, Oral, q8h PRN OR ondansetron (Zofran) injection 4 mg, 4 mg, IntraVENous, q6h PRN, Dat Wayne MD oxyCODONE (Roxicodone) immediate release tablet 5 mg, 5 mg, Oral, q6h PRN OR oxyCODONE (Roxicodone) immediate release tablet 10 mg, 10 mg, Oral, q6h PRN, Dat Wayne MD, 10 mg at 02/12/24 0245 phenol (Chloraseptic) 1.4 % mouth/throat spray 1 spray, 1 spray, Mouth/Throat, q2h PRN, Doni Guzman MD, 1 spray at 02/12/24 0846 sodium chloride 0.9 % infusion, 5-250 mL/hr, IntraVENous, PRN, Dat Wayne MD sodium chloride 0.9% (NS) flush 10 mL, 10 mL, IntraVENous, 2 times per day, Dat Wayne MD, 10 mL at 02/10/24 2047 sodium chloride 0.9% (NS) flush 10 mL, 10 mL, IntraVENous, PRN, Dat Wayne MD tiotropium (Spiriva Respimat) 2.5 MCG/ACT inhaler 2 puff, 2 puff, Inhalation, Daily, Dat Wayne MD, 2 puff at 02/12/24 0843 traZODone (Desyrel) tablet 50 mg, 50 mg, Oral, qPM, Blair Wing MD, 50 mg at 02/11/242016 ASSESSMENT AND PLAN 68 y.o. female status post robotic converted to open Ronni reversal on 02/08 -Remove NGT -Trial CLD -NPO IVF -Pain control with Tylenol IV, Toradol, Robaxin, Dilaudid, PRN oxycodone -Replace dressing to ostomy site PRN -Pain and nausea control PRN -OOB, ambulate, encourage IS -DVT ppx: subq Lovenox & SCDs -Disposition: Await return of bowel function. Diet advancement. Pain control. Anticipate >48 hours Dat Wayne MD 02/12/2024 9:04 AM Nutrition rescreen completed. Patient referred to the Dietitian for colostomy. Hospitalist Progress Note 02/11/[id number]: Please secure chat me for patient care issues. [phone]: Please secure chat [facility] Hospitalist for any issues. Subjective: Admit Date: 02/09/2024 PCP: LEONID DEE MD Room#: B1-146/B1-146 A Brief History: Patient is a 68-year-old female who is s/p robotic converted to open Mock reversal on February 08, general surgery following, hospitalist consulted for medical management, patient blood pressure elevated, NG tube in place but okay for meds Chief Complaint : States I am feeling better today, denies chest pain shortness of breath, denies worsening abdominal pain NPO diet with enteral medications @[id number]@ 24HR INTAKE/OUTPUT: Intake/Output Summary (Last 24 hours) at 02/11/2024 1106 Last data filed at 02/11/2024 0849 Gross per 24 hour Intake 2501.67 ml Output 1675 ml Net 826.67 ml Past Medical History: Past Medical History: Diagnosis Date Anxiety Arthritis COPD exacerbation (HCC) 06/20/2022 Motion sickness Pneumonia 03/04/2019 Primary hypertension 06/24/2023 Sleep apnea does not use CPAP LABS: CBC: Recent Labs 02/10/24 0354 02/11/24 0320 WBC 18.0* 14.1* RBC 3.65* 3.39* HGB 9.1* 8.5* HCT 28.2* 26.2* MCV 77.3 77.3 RDW 18.6* 18.9* PLT 272 290 BMP: Recent Labs 02/10/24 0354 02/11/24 0320 NA 133* 134* K 4.7 4.1 CL 107 105 CO2 20* 26 BUN 19* 14 CREATININE 0.69 0.59 GLUCOSE 176* 117* CALCIUM 8.6 8.6 ANIONGAP 6 3 LIVER PROFILE:No results for input(s): AST , ALT , BILITOT , ALKPHOS , PROT in the last 72 hours. No lab exists for component: LABALBU PT/INR: No results for input(s): PROTIME , INR in the last 72 hours. CARDIAC ENZYMES: No results for input(s): TROPONINI in the last 72 hours. Procalcitonin: No results found for: PROCAL COVID-19 PCR: No results for input(s): COVID19 in the last 72 hours. Objective: Vitals: BP (!) 179/100 Pulse 93 Temp 36.3 C (97.3 F) (Temporal) Resp 16 Ht 5' 3 (1.6 m) Wt 128 lb (58.1 kg) LMP (LMP Unknown) SpO2 95% BMI 22.67 kg/m Pulse Ox: SpO2 Av.5 % Min: 92 % Max: 95 % Physical Exam Constitutional: Appearance: She is ill-appearing. Comments: Up in the chair, NG tube in place black-colored drainage in the bag Cardiovascular: Rate and Rhythm: Normal rate and regular rhythm. Heart sounds: Normal heart sounds, S1 normal and S2 normal. Pulmonary: Effort: Pulmonary effort is normal. Breath sounds: Decreased air movement present. Abdominal: Palpations: Abdomen is soft. Comments: Surgical divine in place, no drainage from incision nonerythematous abdominal binder in place Musculoskeletal: Right lower le+ Pitting Edema present. Left lower le+ Pitting Edema present. Medications: dextrose 5 % and sodium chloride 0.45 % with KCl 20 mEq/L, 100 mL/hr, Last Rate: 100 mL/hr (02/11/24 0833) acetaminophen, 1,000 mg, IntraVENous, q8h clonazePAM, 0.5 mg, Oral, BID enoxaparin, 40 mg, SubCUTAneous, Daily [Held by provider] gabapentin, 300 mg, Oral, BID lisinopril, 20 mg, Oral, Daily And hydroCHLOROthiazide, 25 mg, Oral, Daily ketorolac, 15 mg, IntraVENous, q6h methocarbamol, 1,000 mg, IntraVENous, q8h mometasone-formoterol, 2 puff, Inhalation, BID sodium chloride 0.9%, 10 mL, IntraVENous, 2 times per day tiotropium, 2 puff, Inhalation, Daily traZODone, 50 mg, Oral, qPM Assessment Acute Problems : Essential hypertension-on lisinopril/hydrochlorothiazide 20/12.5 mg at home resumed-hydralazine 10 mg IV as needed every 4 hours for systolic blood pressure more than 160 and diastolic more than 90 (parameters placed) COPD-Spiriva/Dulera/albuterol as needed-ordered Reactive leukocytosis Acute blood loss anemia Non-anion gap metabolic acidosis corrected Mild hyponatremia Status post Ronni reversal open 02/08 Stable chronic problems affecting care, new non-acute diagnoses: Past Medical History: Diagnosis Date Anxiety Arthritis COPD exacerbation (HCC) 06/20/2022 Motion sickness Pneumonia 03/04/2019 Primary hypertension 06/24/2023 Sleep apnea does not use CPAP Medical Decision Making Postoperative care per surgeon, NG tube with suction, await return of bowel function, BP medications ordered, -am labs, replace lytes prn -increase activity -DVT prophylaxis: [] Lovenox [] Heparin [x] SCDs [x] Encourage ambulation [] Already on Anticoagulation Anticipated Discharge - Date - - Location - - Pending the following - Total time spent (which include face to face and non face to face encounters) : 37 minutes Toxic drug monitoring/narrow therapeutic index drug monitoring : # Drug name : # Route administered : # Method of monitoring : Extended Emergency Contact Information Primary Emergency Contact: Deja Cha [facility] Mobile Relation: Spouse April Encinas MD Division of Hospitalist Medicine Acute care solutions PAGER: Epic chat Department of Surgery [facility] surgery Daily Progress Note PATIENT NAME: Priscila Davis Semaj : 1955 ATTENDING PHYSICIAN: Adria Lopez MD ADMIT DATE: 02/09/2024 TODAY'S DATE: 02/11/2024 SUBJECTIVE No acute events overnight. Afebrile, hemodynamically stable. Patient reports persistent substantial abdominal pain, despite addition of Robaxin yesterday. NG in place with bilious output (1000 cc per 24 hours). No nausea or vomiting. Denies flatus. Denies BM. OBJECTIVE VITALS: BP (!) 179/100 Pulse 93 Temp 36.3 C (97.3 F) (Temporal) Resp 16 Ht 1.6 m (5' 3 ) Wt 58.1 kg (128 lb) LMP (LMP Unknown) SpO2 95% BMI 22.67 kg/m PHYSICAL EXAM: CONSTITUTIONAL: NAD, alert, resting comfortably PULM: Resp effort easy and unlabored, bilateral chest rise CV: RRR, no lower extremity edema ABDOMEN: Soft, Non-distended, appropriate candelaria-incisional tenderness is present , no rebound or guarding Incisions: C/D/I, no signs of bleeding NEURO: Moves all extremities spontaneously and symmetrically, A&Ox3 PSYCH: Appropriate mood and affect INTAKE/OUTPUT: I/O last 3 completed shifts: In: 2701.7 (46.5 mL/kg) [P.O.:450; IV Piggyback:2251.7] Out: 2625 (45.2 mL/kg) [Urine:1125 (0.5 mL/kg/hr); Emesis/NG output:1500] Weight: 58.1 kg I/O this shift: In: - Out: 200 [Urine:200] Data CBC: Lab Results Component Value Date WBC 14.1 (H) 02/11/2024 RBC 3.39 (L) 02/11/2024 HGB 8.5 (L) 02/11/2024 HCT 26.2 (L) 02/11/2024 MCV 77.3 02/11/2024 RDW 18.9 (H) 02/11/2024 PLT 290 02/11/2024 BMP: Lab Results Component Value Date NA 134 (L) 02/11/2024 K 4.1 02/11/2024 CL 105 02/11/2024 CO2 26 02/11/2024 BUN 14 02/11/2024 CREATININE 0.59 02/11/2024 EGFR >90.0 02/11/2024 PT/INR: No results found for: LABPROT , INR LFT's: No results found for: PROT Imaging Pertinent imaging reviewed. Current Inpatient Medications Current Facility-Administered Medications: acetaminophen (Ofirmev) IVPB 1,000 mg, 1,000 mg, IntraVENous, q8h, Dat Wayne MD albuterol 108 (90 Base) MCG/ACT inhaler 2 puff, 2 puff, Inhalation, q4h PRN, Blair Wing MD carboxymethylcellulose PF (Refresh Plus) 0.5 % ophthalmic solution 2 drop, 2 drop, Both Eyes, TID PRN, Dat Wayne MD, 2 drop at 02/10/24 0637 clonazePAM (KlonoPIN) tablet 0.25 mg, 0.25 mg, Oral, BID, Doni Guzman MD, 0.25 mg at 02/11/24 0834 dextrose 5 % and sodium chloride 0.45 % with KCl 20 mEq/L infusion, 100 mL/hr, IntraVENous, Continuous, Dat Wayne MD, Last Rate: 100 mL/hr at 02/11/24 0833, 100 mL/hr at 02/11/24 0833 enoxaparin (Lovenox) syringe 40 mg, 40 mg, SubCUTAneous, Daily, Dat Wayne MD, 40 mg at 02/11/24 0829 [Held by provider] gabapentin (Neurontin) capsule 300 mg, 300 mg, Oral, BID, Doni Guzman MD, 300 mg at 02/10/24 0825 hydrALAZINE (Apresoline) injection 10 mg, 10 mg, IntraVENous, q4h PRN, April Encinas MD HYDROmorphone (Dilaudid) injection 0.5 mg, 0.5 mg, IntraVENous, q3h PRN OR HYDROmorphone (Dilaudid) injection 1 mg, 1 mg, IntraVENous, q3h PRN, Dat Wayne MD, 1 mg at 02/11/24 0915 ketorolac (Toradol) injection 15 mg, 15 mg, IntraVENous, q6h, Dat Wayne MD, 15 mg at 02/11/24 0831 methocarbamol (Robaxin) injection 1,000 mg, 1,000 mg, IntraVENous, q8h, Dat Wayne MD, 1,000 mg at 02/11/24 0307 mometasone-formoterol (Dulera 100) 100-5 MCG/ACT inhaler 2 puff, 2 puff, Inhalation, BID, Dat Wayne MD, 2 puff at 02/09/242151 naloxone (Narcan) injection 0.4 mg, 0.4 mg, IntraVENous, q5 min PRN, Juan Molina MD ondansetron ODT (Zofran-ODT) disintegrating tablet 4 mg, 4 mg, Oral, q8h PRN OR ondansetron (Zofran) injection 4 mg, 4 mg, IntraVENous, q6h PRN, Dat Wayne MD oxyCODONE (Roxicodone) immediate release tablet 5 mg, 5 mg, Oral, q6h PRN OR oxyCODONE (Roxicodone) immediate release tablet 10 mg, 10 mg, Oral, q6h PRN, Dat Wayne MD, 10 mg at 02/09/242150 phenol (Chloraseptic) 1.4 % mouth/throat spray 1 spray, 1 spray, Mouth/Throat, q2h PRN, Doni Guzman MD, 1 spray at 02/11/24 0839 sodium chloride 0.9 % infusion, 5-250 mL/hr, IntraVENous, PRN, Dat Wayne MD sodium chloride 0.9% (NS) flush 10 mL, 10 mL, IntraVENous, 2 times per day, Dat Wayne MD, 10 mL at 02/10/242046 sodium chloride 0.9% (NS) flush 10 mL, 10 mL, IntraVENous, PRN, Dat Wayne MD tiotropium (Spiriva Respimat) 2.5 MCG/ACT inhaler 2 puff, 2 puff, Inhalation, Daily, Dat Wayne MD, 2 puff at 02/09/242151 traZODone (Desyrel) tablet 50 mg, 50 mg, Oral, qPM, Blair Wing MD, 50 mg at 02/10/242046 ASSESSMENT AND PLAN 68 y.o. female status post robotic converted to open Ronni reversal on 02/08 -Continue NG tube -NPO IVF -Await return of bowel function -Pain control with Tylenol IV, Toradol, Robaxin, Dilaudid, PRN oxycodone -Replace dressing to ostomy site PRN -Pain and nausea control PRN -OOB, ambulate, encourage IS -DVT ppx: subq Lovenox & SCDs -Disposition: Await return of bowel function. Diet advancement. Pain control. Anticipate >72 hours Dat Wayne MD 02/11/2024 10:17 AM [place] notified via secure message of BP 179/100 ELYSE Armstrong notified via Secure message of BP of 179/100 Hospitalist Progress Note 02/10/2024 Subjective: Admit Date: 02/09/2024 PCP: LEONID DEE MD Room#: B1-146/[id number] A Interval History: Sore throat. Having moderate abdominal pain. Eye pain much improved. No cp, sob, cough, emesis, f/c, dizziness. Case and plan discussed with patient. All questions answered. NPO diet with enteral medications 24HR INTAKE/OUTPUT: Intake/Output Summary (Last 24 hours) at 02/10/2024 1110 Last data filed at 02/10/2024 0623 Gross per 24 hour Intake 2270 ml Output 1540 ml Net 730 ml Past Medical History: Past Medical History: Diagnosis Date Anxiety Arthritis COPD exacerbation (HCC) 06/20/2022 Motion sickness Pneumonia 03/04/2019 Primary hypertension 06/24/2023 Sleep apnea does not use CPAP LABS: CBC: Recent Labs 02/10/24353 WBC 18.0* RBC 3.65* HGB 9.1* HCT 28.2* MCV 77.3 RDW 18.6* PLT 272 BMP: Recent Labs 02/10/24353 NA 133* K 4.7 CL 107 CO2 20* BUN 19* CREATININE 0.69 GLUCOSE 176* CALCIUM 8.6 ANIONGAP 6 LIVER PROFILE:No results for input(s): AST , ALT , BILITOT , ALKPHOS , PROT in the last 72 hours. No lab exists for component: LABALBU PT/INR: No results for input(s): PROTIME , INR in the last 72 hours. CARDIAC ENZYMES: No results for input(s): TROPONINI in the last 72 hours. Procalcitonin: No results found for: PROCAL COVID-19 PCR: No results for input(s): COVID19 in the last 72 hours. Objective: Vitals: BP 124/64 (BP Location: Left arm, Patient Position: Lying) Pulse 94 Temp 36.5 C (97.7 F) (Temporal) Resp 18 Ht 5' 3 (1.6 m) Wt 128 lb (58.1 kg) LMP (LMP Unknown) SpO2 95% BMI 22.67 kg/m Pulse Ox: SpO2 Av.4 % Min: 95 % Max: 100 % Supplemental O2: Physical Exam Vitals and nursing note reviewed. Constitutional: General: She is not in acute distress. HENT: Head: Normocephalic. Mouth/Throat: Pharynx: Oropharynx is clear. Eyes: Extraocular Movements: Extraocular movements intact. Conjunctiva/sclera: Conjunctivae normal. Cardiovascular: Rate and Rhythm: Normal rate and regular rhythm. Pulses: Normal pulses. Pulmonary: Effort: Pulmonary effort is normal. Breath sounds: Normal breath sounds. Abdominal: General: There is no distension. Palpations: Abdomen is soft. Tenderness: There is abdominal tenderness. There is guarding. Musculoskeletal: Cervical back: Normal range of motion. Right lower leg: No edema. Left lower leg: No edema. Skin: General: Skin is warm. Capillary Refill: Capillary refill takes less than 2 seconds. Neurological: General: No focal deficit present. Mental Status: She is alert and oriented to person, place, and time. Mental status is at baseline. Psychiatric: Mood and Affect: Mood normal. Medications: Scheduled PRN acetaminophen, 1,000 mg, Oral, q8h clonazePAM, 0.25 mg, Oral, BID enoxaparin, 40 mg, SubCUTAneous, Daily gabapentin, 300 mg, Oral, BID methocarbamol, 1,000 mg, IntraVENous, q8h mometasone-formoterol, 2 puff, Inhalation, BID sodium chloride 0.9%, 10 mL, IntraVENous, 2 times per day tiotropium, 2 puff, Inhalation, Daily traZODone, 50 mg, Oral, qPM PRN medications: albuterol, carboxymethylcellulose PF, HYDROmorphone OR HYDROmorphone, naloxone, ondansetron ODT OR ondansetron, oxyCODONE OR oxyCODONE, phenol, sodium chloride, sodium chloride 0.9% Continuous dextrose 5 % and sodium chloride 0.45 % with KCl 20 mEq/L, 100 mL/hr, Last Rate: 100 mL/hr (02/10/24 1014) Assessment S/P Ronni reversal Right eye pain markedly improved Sore throat HTN COPD ANJANA Depression/anxiety Plan Continue NGT, NPO, IVF, pain control, cepacol spray to throat prn, continue eye drops prn, IS, MDIs, serial exams for return of bowel function, follow up labs, increase activity, discontinue watkins, discharge planning, see orders. - am labs, replace lytes prn - PT/OT/CM/SW - delirium precautions: increase activity - DVT prophylaxis: SCDs and encourage ambulation Advance Directive: Full Code Anticipated Discharge - Date - 02/11-02/13 - Location - Home with Home Health Care vs SNF - Pending the following - post op recovery, resumption of bowel function and when OK with GS Total time spent (which include face to face and non face to face encounters) : 47 minutes Toxic drug monitoring/narrow therapeutic index drug monitoring : # Drug name : # Route administered : # Method of monitoring : Extended Emergency Contact Information Primary Emergency Contact: Deja Cha [facility] Mobile Relation: Spouse Blair Wing MD Division of Hospitalist Medicine [facility] Department of Surgery [facility] surgery Daily Progress Note PATIENT NAME: Priscila Cha : 1955 ATTENDING PHYSICIAN: Adria Lopez MD ADMIT DATE: 02/09/2024 TODAY'S DATE: 02/10/2024 SUBJECTIVE No acute events overnight. Afebrile, hemodynamically stable. Abdominal pain controlled with room for improvement. No nausea or vomiting. Denies flatus. Denies BM. OBJECTIVE VITALS: BP 124/64 (BP Location: Left arm, Patient Position: Lying) Pulse 94 Temp 36.5 C (97.7 F) (Temporal) Resp 18 Ht 1.6 m (5' 3 ) Wt 58.1 kg (128 lb) LMP (LMP Unknown) SpO2 95% BMI 22.67 kg/m PHYSICAL EXAM: CONSTITUTIONAL: NAD, alert, resting comfortably PULM: Resp effort easy and unlabored, bilateral chest rise CV: RRR, no lower extremity edema ABDOMEN: Soft, Non-distended, appropriate candelaria-incisional tenderness is present , no rebound or guarding Incisions: C/D/I, no signs of bleeding NEURO: Moves all extremities spontaneously and symmetrically, A&Ox3 PSYCH: Appropriate mood and affect INTAKE/OUTPUT: I/O last 3 completed shifts: In: 2270 (39.1 mL/kg) [P.O.:200; I.V.:1800 (31 mL/kg); IV Piggyback:270] Out: 1540 (26.5 mL/kg) [Urine:1040 (0.5 mL/kg/hr); Emesis/NG output:500] Weight: 58.1 kg No intake/output data recorded. Data CBC: Lab Results Component Value Date WBC 18.0 (H) 02/10/2024 RBC 3.65 (L) 02/10/2024 HGB 9.1 (L) 02/10/2024 HCT 28.2 (L) 02/10/2024 MCV 77.3 02/10/2024 RDW 18.6 (H) 02/10/2024 PLT 272 02/10/2024 BMP: Lab Results Component Value Date NA 133 (L) 02/10/2024 K 4.7 02/10/2024 CL 107 02/10/2024 CO2 20 (L) 02/10/2024 BUN 19 (H) 02/10/2024 CREATININE 0.69 02/10/2024 EGFR >90.0 02/10/2024 PT/INR: No results found for: LABPROT , INR LFT's: No results found for: PROT Imaging Pertinent imaging reviewed. Current Inpatient Medications Current Facility-Administered Medications: acetaminophen (Tylenol) tablet 1,000 mg, 1,000 mg, Oral, q8h, Dat Wayne MD, 1,000 mg at 02/10/24 0637 albuterol 108 (90 Base) MCG/ACT inhaler 2 puff, 2 puff, Inhalation, q4h PRN, Blair Wing MD carboxymethylcellulose PF (Refresh Plus) 0.5 % ophthalmic solution 2 drop, 2 drop, Both Eyes, TID PRN, Dat Wayne MD, 2 drop at 02/10/24 0637 clonazePAM (KlonoPIN) tablet 0.25 mg, 0.25 mg, Oral, BID, Doni Guzman MD, 0.25 mg at 02/10/24 0825 dextrose 5 % and sodium chloride 0.45 % with KCl 20 mEq/L infusion, 100 mL/hr, IntraVENous, Continuous, Dat Wayne MD, Last Rate: 100 mL/hr at 02/09/242150, 100 mL/hr at 02/09/242150 enoxaparin (Lovenox) syringe 40 mg, 40 mg, SubCUTAneous, Daily, Dat Wayne MD, 40 mg at 02/10/24 0828 gabapentin (Neurontin) capsule 300 mg, 300 mg, Oral, BID, Doni Guzman MD, 300 mg at 02/10/24 0825 HYDROmorphone (Dilaudid) injection 0.25 mg, 0.25 mg, IntraVENous, q3h PRN OR HYDROmorphone (Dilaudid) injection 0.5 mg, 0.5 mg, IntraVENous, q3h PRN, Dat Wayne MD, 0.5 mg at 02/10/24 0814 methocarbamol (Robaxin) injection 1,000 mg, 1,000 mg, IntraVENous, q8h, Dat Wayne MD mometasone-formoterol (Dulera 100) 100-5 MCG/ACT inhaler 2 puff, 2 puff, Inhalation, BID, Dat Wayne MD, 2 puff at 02/09/242 naloxone (Narcan) injection 0.4 mg, 0.4 mg, IntraVENous, q5 min PRN, Juan Molina MD ondansetron ODT (Zofran-ODT) disintegrating tablet 4 mg, 4 mg, Oral, q8h PRN OR ondansetron (Zofran) injection 4 mg, 4 mg, IntraVENous, q6h PRN, Dat Wayne MD oxyCODONE (Roxicodone) immediate release tablet 5 mg, 5 mg, Oral, q6h PRN OR oxyCODONE (Roxicodone) immediate release tablet 10 mg, 10 mg, Oral, q6h PRN, Dat Wayne MD, 10 mg at 02/09/242150 phenol (Chloraseptic) 1.4 % mouth/throat spray 1 spray, 1 spray, Mouth/Throat, q2h PRN, Doni Guzman MD, 1 spray at 02/09/242154 sodium chloride 0.9 % infusion, 5-250 mL/hr, IntraVENous, PRN, Dat Wayne MD sodium chloride 0.9% (NS) flush 10 mL, 10 mL, IntraVENous, 2 times per day, Dat Wayne MD, 10 mL at 02/09/24 2100 sodium chloride 0.9% (NS) flush 10 mL, 10 mL, IntraVENous, PRN, Dat Wayne MD tiotropium (Spiriva Respimat) 2.5 MCG/ACT inhaler 2 puff, 2 puff, Inhalation, Daily, Dat Wayne MD, 2 puff at 02/09/242151 traZODone (Desyrel) tablet 50 mg, 50 mg, Oral, qPM, Blair Wing MD, 50 mg at 02/09/241849 ASSESSMENT AND PLAN 68 y.o. female status post robotic converted to open Ronni reversal on 02/08 Small bowel serositis noted on pathology -Continue NG tube -NPO IVF -DC Watkins -Add Robaxin for pain control -Replace dressing to ostomy site PRN -Pain and nausea control PRN -OOB, ambulate, encourage IS -DVT ppx: subq Lovenox & SCDs -Disposition: Await return of bowel function. Diet advancement. Pain control. Anticipate >72 hours Dat Wayne MD 02/10/2024 10:00 AM documented in this encounter [facility] 02-16-2024 Note Formatting of this n ote is different from the original. Images from the original note were not included. Care Management Progress Note Pt POD 8 colostomy reversal. Tolerating Adult regular low fiber diet. Pain medications adjusted. Hgb 7.7 Per Gen surgery notes, anticipate pt to dc home later this afternoon. DCP home w spouse no needs. Discharge Milestones and Delays Expected Date/Time: 02/17/[address] discharge order Complete med reconciliation Case mgmt discharge readiness Expected Discharge History Expected Date/Time Set By Reviewed At 02/17/2024 Hannah Multani RN 02/16/2024 8:10 AM tcc estimate Trend HGB await tolerance of diet advance Adult regular low fiber diet tolerated IV dilaudid 1 mg 0315 am 02/16/2024 Hannah Multani RN 02/15/2024 8:56 AM tcc estimate Trend HGB await tolerance of diet advance(FL. Liq this am) 02/15/2024 Hannah Multani RN 02/14/2024 8:58 AM tcc estimate Trend HGB await tolerance of diet advance(Clr. Liq this am) 02/14/2024 Hannah Multani RN 02/13/2024 8:54 AM 02/14/2024 Dat Wayne MD 02/09/2024 3:14 PM 02/14/2024 Dat Wayne MD 02/09/2024 1:25 PM 02/14/2024 Fernando Brady APRN - SURINDER 02/09/2024 6:12 AM Length of Stay (Days): 7 GMLOS: 5.1 [facility] 02-16-2024 Note Formatting of this n ote is different from the original. Images from the original note were not included. Care Management Progress Note Pt POD 8 colostomy reversal. Tolerating Adult regular low fiber diet. Pain medications adjusted. Hgb 7.7 Per Gen surgery notes, anticipate pt to dc home later this afternoon. DCP home w spouse no needs. Discharge Milestones and Delays Expected Date/Time: 02/17/[address] discharge order Complete med reconciliation Case mgmt discharge readiness Expected Discharge History Expected Date/Time Set By Reviewed At 02/17/2024 Hannah Multani RN 02/16/2024 8:10 AM tcc estimate Trend HGB await tolerance of diet advance Adult regular low fiber diet tolerated IV dilaudid 1 mg 0315 am 02/16/2024 Hannah Multani RN 02/15/2024 8:56 AM tcc estimate Trend HGB await tolerance of diet advance(FL. Liq this am) 02/15/2024 Hannah Multani RN 02/14/2024 8:58 AM tcc estimate Trend HGB await tolerance of diet advance(Clr. Liq this am) 02/14/2024 Hannah Multani RN 02/13/2024 8:54 AM 02/14/2024 Dat Wayne MD 02/09/2024 3:14 PM 02/14/2024 Dat Wayne MD 02/09/2024 1:25 PM 02/14/2024 Fernando Brady APRN - SURINDER 02/09/2024 6:12 AM Length of Stay (Days): 7 GMLOS: 5.1 [facility] 02-16-2024 Miscellaneous Notes Images from the original note were not included. Care Management Progress Note Pt POD 8 colostomy reversal. Tolerating Adult regular low fiber diet. Pain medications adjusted. Hgb 7.7 Per Gen surgery notes, anticipate pt to dc home later this afternoon. DCP home w spouse no needs. Discharge Milestones and Delays Expected Date/Time: 02/17/[address] discharge order Complete med reconciliation Case mgmt discharge readiness Expected Discharge History Expected Date/Time Set By Reviewed At 02/17/2024 Hannah Multani RN 02/16/2024 8:10 AM tcc estimate Trend HGB await tolerance of diet advance Adult regular low fiber diet tolerated IV dilaudid 1 mg 0315 am 02/16/2024 Hannah Multani RN 02/15/2024 8:56 AM tcc estimate Trend HGB await tolerance of diet advance(FL. Liq this am) 02/15/2024 Hannah Multani RN 02/14/2024 8:58 AM tcc estimate Trend HGB await tolerance of diet advance(Clr. Liq this am) 02/14/2024 Hannah Multani RN 02/13/2024 8:54 AM 02/14/2024 Dat Wayne MD 02/09/2024 3:14 PM 02/14/2024 Dat Wayne MD 02/09/2024 1:25 PM 02/14/2024 Fernnado Brady APRN - SUPERVISOR POWDERED METAL 02/09/2024 6:12 AM Length of Stay (Days): 7 GMLOS: 5.1 Images from the original note were not included. Care Management Progress Note Pt remains POD 7 from colostomy reversal 02/09/24. Diet advanced to Regular Low Fiber. Pt develop urinary retention w PVR > 350 per bedside nurse. Adjustment to pain meds made by Gen Surgery. Hgb 7.7, NA 130 DCP home w family no needs in 24 48 Hrs per attending. Tcc to continue to follow. Discharge Milestones and Delays Expected Date/Time: 02/16/[address] discharge order Complete med reconciliation Case mgmt discharge readiness Clinical Stability Diagnsotic Workup Expected Discharge History Expected Date/Time Set By Reviewed At 02/16/2024 Hannah Multani RN 02/15/2024 8:56 AM tcc estimate Trend HGB await tolerance of diet advance(FL. Liq this am) 02/15/2024 Hannah Multani RN 02/14/2024 8:58 AM tcc estimate Trend HGB await tolerance of diet advance(Clr. Liq this am) 02/14/2024 Hannah Multani RN 02/13/2024 8:54 AM 02/14/2024 Dat Wayne MD 02/09/2024 3:14 PM 02/14/2024 Dat Wayne MD 02/09/2024 1:25 PM 02/14/2024 Fernando Brady APRN - SUPERVISOR P[employer] 02/09/2024 6:12 AM Length of Stay (Days): 6 GMLOS: 5.1 Problem: Pain - Adult Goal: Verbalizes/displays adequate comfort level or baseline comfort level 02/15/2024 0934 by Kimmy Zamora RN Outcome: Progressing 02/15/2024 08 by Kimmy Zamora RN Outcome: Progressing Problem: Discharge Planning Goal: Discharge to home or other facility with appropriate resources 02/15/2024 0934 by Kimmy Zamora RN Outcome: Progressing 02/15/2024 08 by Kimmy Zamora RN Outcome: Progressing Problem: Pain - Adult Goal: Verbalizes/displays adequate comfort level or baseline comfort level Outcome: Progressing Problem: Safety - Adult Goal: Free from fall injury Outcome: Progressing Problem: Discharge Planning Goal: Discharge to home or other facility with appropriate resources Outcome: Progressing Problem: Pain - Adult Goal: Verbalizes/displays adequate comfort level or baseline comfort level Outcome: Progressing Flowsheets (Taken 02/14/20241999) Verbalizes/displays adequate comfort level or baseline comfort level: Encourage patient to monitor pain and request assistance Problem: Safety - Adult Goal: Free from fall injury Outcome: Progressing Problem: Discharge Planning Goal: Discharge to home or other facility with appropriate resources Outcome: Progressing Problem: Chronic Conditions and Co-morbidities Goal: Patient's chronic conditions and co-morbidity symptoms are monitored and maintained or improved Outcome: Progressing Problem: Gastrointestinal - Adult Goal: Minimal or absence of nausea and vomiting Outcome: Progressing Goal: Maintains or returns to baseline bowel function Outcome: Progressing Goal: Maintains adequate nutritional intake Outcome: Progressing Problem: Knowledge Deficit Goal: Patient/family/caregiver demonstrates understanding of disease process, treatment plan, medications, and discharge instructions Outcome: Progressing Problem: Potential for Compromised Skin Integrity Goal: Skin Integrity is Maintained or Improved Outcome: Progressing Goal: Nutritional status is improving Outcome: Progressing Problem: Urinary Incontinence Goal: Perineal skin integrity is maintained or improved Outcome: Progressing Problem: Problem Interventions Goal: Assess Nutritional Intake Outcome: Progressing Goal: Dietary Supplements Outcome: Progressing The patient is Moderately Stable - Low risk of patient condition declining or worsening The patient's goals for the shift include The clinical goals for the shift include Over the shift, the patient did not make progress toward the following goals. Barriers to progression include decrease rest and discomfort. Recommendations to address these barriers include medications per MAR, provide a restful environment. Images from the original note were not included. Care Management Progress Note Pt remains hospitalized s/p POD 6 of colostomy/reversal 02/09/24. Today pt w + nausea on Full liquid diet. Hgb w steady down trend 7.7,7.6, 7.5-today. IVF decreased. Na also down trend from 137 to 132, 131 today. Pt with documented 10/10 pain DCP home w spouse when clinically cleared. Will need to tolerate diet nad have return of bowel function as well as pain controlled. Tcc to follow. Discharge Milestones and Delays Expected Date/Time: 02/15/[address] discharge order Complete med reconciliation Case mgmt discharge readiness Clinical Stability Diagnsotic Workup Expected Discharge History Expected Date/Time Set By Reviewed At 02/15/2024 Hannah Multani RN 02/14/2024 8:58 AM tcc estimate Trend HGB await tolerance of diet advance(Clr. Liq this am) 02/14/2024 Hannah Multani RN 02/13/2024 8:54 AM 02/14/2024 Dat Wayne MD 02/09/2024 3:14 PM 02/14/2024 Dat Wayne MD 02/09/2024 1:25 PM 02/14/2024 MINNA Dobson CNP 02/09/2024 6:12 AM Length of Stay (Days): 5 GMLOS: No GMLOS Documented Problem: Pain - Adult Goal: Verbalizes/displays adequate comfort level or baseline comfort level Outcome: Progressing Problem: Safety - Adult Goal: Free from fall injury Outcome: Progressing Problem: Discharge Planning Goal: Discharge to home or other facility with appropriate resources Outcome: Progressing Images from the original note were not included. Care Management Progress Note Pt remains hospitalized w s/p colostomy reversal 02/09/24. NGT out. WBC down trending Diet Clr liquid currently to be advanced. Hgb being monitored closely 7.7 x 24 hrs. DCP home no needs when clinically cleared for dc. Tcc following. Discharge Milestones and Delays Expected Date/Time: 02/14/[address] discharge order Complete med reconciliation Case mgmt discharge readiness Clinical Stability Diagnsotic Workup Expected Discharge History Expected Date/Time Set By Reviewed At 02/14/2024 Hannah Multani RN 02/13/2024 8:54 AM tcc estimate Trend HGB await tolerance of diet advance(Clr. Liq this am) 02/14/2024 Dat Wayne MD 02/09/2024 3:14 PM 02/14/2024 Dat Wayne MD 02/09/2024 1:25 PM 02/14/2024 MINNA Dobson CNP 02/09/2024 6:12 AM Length of Stay (Days): 4 GMLOS: No GMLOS Documented Problem: Pain - Adult Goal: Verbalizes/displays adequate comfort level or baseline comfort level 02/13/2024 1145 by Kimmy Zamora RN Outcome: Progressing 02/13/2024 1145 by Kimmy Zamora RN Outcome: Progressing Problem: Discharge Planning Goal: Discharge to home or other facility with appropriate resources 02/13/2024 1145 by Kimmy Zamora RN Outcome: Progressing 02/13/2024 1145 by Kimmy Zamora RN Outcome: Progressing Problem: Safety - Adult Goal: Free from fall injury 02/13/2024 1145 by Kimmy Zamora RN Outcome: Progressing 02/13/2024 1145 by Kimmy Zamora RN Outcome: Progressin Problem: Safety - Adult Goal: Free from fall injury Outcome: Progressing Problem: Pain - Adult Goal: Verbalizes/displays adequate comfort level or baseline comfort level Outcome: Progressing Problem: Safety - Adult Goal: Free from fall injury Outcome: Progressing Problem: Discharge Planning Goal: Discharge to home or other facility with appropriate resources Outcome: Progressing Problem: Pain - Adult Goal: Verbalizes/displays adequate comfort level or baseline comfort level Outcome: Progressing Care Managment Initial Assessment Date: 02/11/2024 Patient Name: Priscila Cha : 1955 Patient Information Source of Information: Patient Cognition/Language: WFL - Within Functional Limits Permission given to 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 Dee Seen in last 2 years?: Yes Primary Caregiver: Self If assistance needed, confirmed caregiver ready, willing and able to care for patient at discharge: Yes Confirmed with: Per patient, spouse is ready, willing, and able to assist when needed. Living Arrangements Current Residence: House Number of Floors 2 Number of Entry Steps: 2 Bed/Bath Levels: Both second floor Facility: Facility Name: Plan to Return: Lives with: Spouse/significant other Support Systems: Spouse/significant other, Family members Activities of Daily Living Ambulation: Independent Bathing/Dressing: Independent Elimination/Continence/Toileting: Independent Feeding: Independent Who Assists with Activities of Daily Living: Instrumental Activities of Daily Living Prescription Coverage: Yes [facility] Used[facility] Medication Management: Independent Transportation/Shopping: Independent Transportation Mode: Car Needs Assistance with Transportation at Discharge: No (Spouse can transport) Meal Preparation: Independent Laundry/Cleaning: Independent Finances/Bill Paying: Independent Communication: Independent Types of Care Services/Equipment Utilized Care Services: (n/a) Dialysis Type: NA Durable Medical Equipment: Nebulizer Patient's Goal/Discharge Plan Patient expects to be discharged to: return home Discharge Planning Actions: Continue to follow, No needs identified Patient's Choice Rights and [employer] and Collaborative Relationships Disclosed as Indicated for Post-Acute Care: Interdisciplinary Team Engagement: Social Work Referral for: Additional Information: Spoke to patient at bedside. Introduced self and role. Reason for admission: scheduled admission for robotic converted to open Ronni reversal (partial colectomy with colorectal anastomosis); open appendectomy; open small bowel resection; open colorrhaphy; and flexible sigmoidoscopy. Consults: General Surgery PT/OT: no PT/OT consults ordered but patient is independent with all ADL/IADLs and up [place] river at baseline Current DCP: return home Discharge planning needs discussed. Patient denied any needs. Patient verbalizes understanding and is in agreement with POC. States family is ready, willing, and able to assist as needed. TCC will continue to follow. Sage Sher RN Problem: Pain - Adult Goal: Verbalizes/displays adequate comfort level or baseline comfort level 02/11/2024 1241 by Pooja Witt RN Outcome: Progressing 02/11/2024 1111 by Pooja Witt RN Outcome: Progressing Problem: Pain - Adult Goal: Verbalizes/displays adequate comfort level or baseline comfort level Outcome: Progressing To 1 east via bed family at bedside and updated pt able to rest quietly when not disturbed report to dami OPERATIVE NOTE DATE OF PROCEDURE: 02/09/2024 SURGEON: Adria Lopez MD SPIN TABLE OPERATOR: Dr. Jefe Arias MD was asked to assist with this case as no qualified resident was available. Dat Wayne MD (PGY-5) PREOPERATIVE DIAGNOSIS: Colostomy in place, history of prior Ronni procedure for diverticulitis POSTOPERATIVE DIAGNOSIS: Same OPERATION: 1. Robotic converted to open Ronni reversal (partial colectomy with colorectal anastomosis) 2. Open appendectomy 3. Open small bowel resection 4. Open colorrhaphy 5. Flexible sigmoidoscopy ANESTHESIA: General anesthesia ESTIMATED BLOOD LOSS: 100cc COMPLICATIONS: None SPECIMENS: 1. Appendix 2. Small bowel resection 3. Rectal stump with anastomotic rings PREOPERATIVE MEDICATIONS: Ancef 2g HISTORY: The patient is a 68 y.o. year old female with history of above preop diagnosis. The patient was recommended for robotic ronni reversal, possible open. I explained the risk, benefits, expected outcome, and alternatives to surgery including risks of bleeding with need for blood transfusion, infection, iatrogenic injury, need for repeat operation, recurrent disease, and possibility of conversion to open procedure. The patient demonstrated an understanding of the above and provided written and verbal consent to proceed with surgery. PROCEDURE: The patient was brought to the operating room and general endotracheal anesthesia initiated by the anesthesia team. The patient was placed in the lithotomy position with arms tucked by their sides with all bony prominences appropriately padded. A watkins catheter was placed. A preoperative timeout was performed confirming the patient's name, operative site, operative plan, and other information critical to patient care. The abdomen was prepped and draped in the standard sterile fashion. A stab incision was made in the left upper quadrant at palmers point. The fascia was elevated and a Veress needle introduced into the abdomen. Pneumoperitoneum was established to 18mmHg. An 8mm incision was made in the right upper quadrant and a trocar was introduced via the incision. After brief inspection of the abdomen confirmed no injuries related to initial veress and trocar placement, additional trocars were placed under direct visualization as follows: a total of 4 robotic trochars from the left costal margin to the right ASIS with 3 of them being 8 mm and one of them being a 12 mm port as well as a right upper quadrant 5 mm assistant technician port was placed The patient was then placed in Trendelenburg with right lateral tilt. The robot was then docked. The abdomen was inspected. Significant adhesive disease was present throughout the entire abdomen. These adhesions were taken down with a combination of monopolar electrocautery and blunt and sharp dissection. After some adhesiolysis, there were yet more dense adhesions present with concern for possible bowel injury related to the extensive adhesiolysis. Therefore the decision was made to convert to an open procedure. The robot was undocked and all trocars removed. A midline laparotomy was made from just above the umbilicus to the pubic symphysis, excising the prior midline scar. The incision was carried down the the subcutaneous tissue and the linea alba divided. Additional adhesiolysis was performed for an additional 180min. At this point a partial thickness colotomy was identified in the transverse colon as well as two full thickness enterotomies related to the adhesiolysis. There was no spillage of enteric contents. Attention was direct to dissecting out the rectal stump to determine feasibility of completion of the reversal operation. The rectal stump was identified and appeared to be densely adherent to the uterus. The uterus was grasped with a tenaculum forceps and retracted caudad. Dense adhesions within the retrouterine pouch of Figueroa were taken down sharply. A rectal dilator was introduced to assist with the dissection. The dilator was unable to be advanced to the extent of the retained sigmoid colon. A flexible sigmoidoscopy was performed by advancing an olympus colonoscopy via the rectum to visualize the remnant rectal stump. The rectal stump was noted to be tortuous, but otherwise without stenosis nor perforation. Additional adhesiolysis was performed until the rectal stump was dissected circumferentially below the level of the peritoneal reflection. Attention was then directed to the small bowel which was run from the ileocecal valve to the ligament of treitz. Two enterotomies were identified approximately 25cm apart. These were managed by small bowel resection. A proximal and distal transection point were selected to exclude the enterotomies. A window was made in the mesentery at the proposed proximal transection point. The small bowel was divided with a linear cutting stapler (Open TETE, 75mm blue load). In a similar fashion a window was made in the mesentery at the proposed distal transection point. The bowel was divided similarly with a linear cutting stapler. The stapled edges were cut and the limbs of bowel aligned to perform a [id number] functional end-to-end anastomosis. This was performed with an additional 75mm blue load. The common enterotomy was closed with a final 75mm blue load in a stapled fashion. The appendix was then removed at this time incidentally to avoid any future potential surgical complications of acute appendicitis. Appendix was removed using TETE stapler blue load and Enseal to divide the mesoappendix. Attention then turned to the transverse colotomy was inspected. A partial thickness injury was identified. This was repaired with interrupted sutures of 3-0 vicryl. A curivlinear cutting stapler (Contour 60mm green load) was used to divide the rectum below the colorectal anastomosis. The prior colostomy site was circumferentially incised and dissected free from the skin and fascia. The colon was placed down in the pelvis and appeared to reach without tension. A curivlinear cutting stapler (Contour 60mm green load) was used to divide the rectum. The colon was grasped with a 65mm automatic pursestringer and divided distally. A 25mm EEA anvil was placed in the distal end of the colon and the colon was placed into the pelvis without tension nor torsion. The divided segment of bowel was handed off for pathologic examination. The 25mm EEA stapler was advanced into the rectum and an end-to-end stapled colo-rectal anastomosis was fashioned. A flexible sigmoidoscopy was again performed and demonstrated the anastomosis at 10cm which appeared viable and intact. A provocative leak test was perfomed and was again negative. The omentum was returned to its natural position. The posterior rectus sheath was closed with interrupted sutures of #0 PDS. In a similar fashion, the posterior rectus sheath aponeurosis was closed at the 12mm trocar site in the right lower quadrant. The midline was then closed with a running suture of #0 looped PDS. All incisions were irrigated. All trocars were removed. The colostomy site incision was closed with a purse-string suture of #0 Vicryl and with a betadine-soaked packing wick in the incision. The skin was stapled closed for all remaining incisions. At the conclusion of the case all sponge, needle, and instrument counts were correct x2. The patient tolerated the procedure well, was extubated, and sent to the recovery room in stable condition. This case involved extensive dissection including adhesio lysis and extensive dissection for the colon closure for over 180 minutes thus increased the residual complexity and operative time necessary for the procedure. As a result a modifier 22 will be appended. Dat Wayne MD General Surgery, PGY-5 02/09/2024 1:25 PM Patient educated on importance of coughing/ deep breathing after surgery to reduce risk of pneumonia. Patient educated on importance of early mobility to reduce the risk of blood clots. Falls prevention information reviewed with patient. Post-operative pain control and ways to prevent constipation discussed with patient. documented in this encounter [facility] 02-16-2024 Hospital Discharge instructions Hyacinth Clancy RN - 02/16/2024 10:42 AM EDT DISCHARGE INSTRUCTIONS Thank you very much for allowing me to participate in your care, it is truly a privilege. Below please see discharge orders that will help you during your recovery. Please do not hesitate to call the office at [phone] for any questions. After hours, the same number will allow you to reach the on-call surgeon. Call the office to schedule your post-operative appointment with Dr. Lopez or Nurse Practitioner for 2 weeks if not already scheduled. (May need to be seen before 2 weeks if stitches and/or drains present) Change bandages daily or more frequently if needed. Keep incisions clean with soap/ water daily. (Peroxide OK as well) Cover incision(s) as needed. Please remove the Steri-Strips as instructed 5 days after your date of surgery. This includes any clear bandages and gauze placed in the navel, if applicable. If you have skin glue this will come off on its own Diet: Regular General guidelines for activity: no heavy lifting for 6 weeks OK to shower in 24 hours You may have pain medicine ordered. Please take as directed/needed. Some discomfort, mild bruising, and swelling are not unusual; please call my office if you have any severe pain, hemorrhage, or high fever (over 101 F) Resume home medications as directed (see medication reconciliation sheet) Watch for signs of infection: Excessive warmth or bright redness around your incisions Leakage of bloody or cloudy fluid from you incisions Fever over 100.5 If you experience constipation Increase your water intake. Increase your activity; walking is best. An over the counter stool softener or mild laxative may be necessary if you still have not had a bowel movement after several days. Please call the office at [phone] for any questions and too make your post op appointment if needed. Thank you again for allowing me to participate in your care, and get well soon! Adria Lopez MD FACS Keep right arm elevated above level of heart. Apply ice pack to redness, but not directly on skin. Apply ice for 15-20 mins 4 times per day. The following attachments cannot be sent through Care Everywhere.Low Fiber Diet (Zimbabwean)documented in this encounter [facility] 02-15-2024 Note Formatting of this n ote is different from the original. Images from the original note were not included. Care Management Progress Note Pt remains POD 7 from colostomy reversal 02/09/24. Diet advanced to Regular Low Fiber. Pt develop urinary retention w PVR > 350 per bedside nurse. Adjustment to pain meds made by Gen Surgery. Hgb 7.7, NA 130 DCP home w family no needs in 24 48 Hrs per attending. Tcc to continue to follow. Discharge Milestones and Delays Expected Date/Time: 02/16/[address] discharge order Complete med reconciliation Case mgmt discharge readiness Clinical Stability Diagnsotic Workup Expected Discharge History Expected Date/Time Set By Reviewed At 02/16/2024 Hannah Multani RN 02/15/2024 8:56 AM tcc estimate Trend HGB await tolerance of diet advance(FL. Liq this am) 02/15/2024 Hannah Multani RN 02/14/2024 8:58 AM tcc estimate Trend HGB await tolerance of diet advance(Clr. Liq this am) 02/14/2024 Hannah Multani RN 02/13/2024 8:54 AM 02/14/2024 Dat Wayne MD 02/09/2024 3:14 PM 02/14/2024 Dat Wayne MD 02/09/2024 1:25 PM 02/14/2024 Fernando Brady APRN - SURINDER 02/09/2024 6:12 AM Length of Stay (Days): 6 GMLOS: 5.1 T [facility] 02-15-2024 Note Formatting of this n ote is different from the original. Images from the original note were not included. Care Management Progress Note Pt remains POD 7 from colostomy reversal 02/09/24. Diet advanced to Regular Low Fiber. Pt develop urinary retention w PVR > 350 per bedside nurse. Adjustment to pain meds made by Gen Surgery. Hgb 7.7, NA 130 DCP home w family no needs in 24 48 Hrs per attending. Tcc to continue to follow. Discharge Milestones and Delays Expected Date/Time: 02/16/[address] discharge order Complete med reconciliation Case mgmt discharge readiness Clinical Stability Diagnsotic Workup Expected Discharge History Expected Date/Time Set By Reviewed At 02/16/2024 Hannah Multani RN 02/15/2024 8:56 AM tcc estimate Trend HGB await tolerance of diet advance(FL. Liq this am) 02/15/2024 Hannah Multani RN 02/14/2024 8:58 AM tcc estimate Trend HGB await tolerance of diet advance(Clr. Liq this am) 02/14/2024 Hannah Multani RN 02/13/2024 8:54 AM 02/14/2024 Dat Wayne MD 02/09/2024 3:14 PM 02/14/2024 Dat Wayne MD 02/09/2024 1:25 PM 02/14/2024 MINNA Dobson CNP 02/09/2024 6:12 AM Length of Stay (Days): 6 GMLOS: 5.1 [facility] 02-15-[address] Jose Antonio Brady SUPERVIS[employer] with surgery aware patient has been retaining urine post surgery. Patient says she might have had issues prior to this surgery with completely emptying. Patient felt like she had to urinate, sat on BSC with no results. ThenI Bladder scanned for 340cc then she urinated 100cc and then post void bladder scan was 260cc. I asked Dr. Mabry if we should do urology consult. Awaiting possible orders. Patient declining straight cath when bladder scan is over 300 ml. [facility] 02-15-[address] Jose Antonio Brady SUPERVIS[employer] with surgery aware patient has been retaining urine post surgery. Patient says she might have had issues prior to this surgery with completely emptying. Patient felt like she had to urinate, sat on BSC with no results. ThenI Bladder scanned for 340cc then she urinated 100cc and then post void bladder scan was 260cc. I asked Dr. Mabry if we should do urology consult. Awaiting possible orders. Patient declining straight cath when bladder scan is over 300 ml. documented in this encounter [facility] 02-15-2024 Plan of care note Problem: Pain - Adult Goal: Verbalizes/displays adequate comfort level or baseline comfort level 02/15/2024 0934 by Kimmy Zamora RN Outcome: Progressing 02/15/2024 0829 by Kimmy Zamora RN Outcome: Progressing Problem: Discharge Planning Goal: Discharge to home or other facility with appropriate resources 02/15/2024 0934 by Kimmy Zamora RN Outcome: Progressing 02/15/2024 0829 by Kimmy Zamroa RN Outcome: Progressing T [facility] 02-15-2024 Plan of care note Problem: Pain - Adult Goal: Verbalizes/displays adequate comfort level or baseline comfort level Outcome: Progressing Problem: Safety - Adult Goal: Free from fall injury Outcome: Progressing Problem: Discharge Planning Goal: Discharge to home or other facility with appropriate resources Outcome: Progressing [facility] 02-14-2024 Plan of care note Problem: Pain - Adult Goal: Verbalizes/displays adequate comfort level or baseline comfort level Outcome: Progressing Flowsheets (Taken 02/14/20241999) Verbalizes/displays adequate comfort level or baseline comfort level: Encourage patient to monitor pain and request assistance Problem: Safety - Adult Goal: Free from fall injury Outcome: Progressing Problem: Discharge Planning Goal: Discharge to home or other facility with appropriate resources Outcome: Progressing Problem: Chronic Conditions and Co-morbidities Goal: Patient's chronic conditions and co-morbidity symptoms are monitored and maintained or improved Outcome: Progressing Problem: Gastrointestinal - Adult Goal: Minimal or absence of nausea and vomiting Outcome: Progressing Goal: Maintains or returns to baseline bowel function Outcome: Progressing Goal: Maintains adequate nutritional intake Outcome: Progressing Problem: Knowledge Deficit Goal: Patient/family/caregiver demonstrates understanding of disease process, treatment plan, medications, and discharge instructions Outcome: Progressing Problem: Potential for Compromised Skin Integrity Goal: Skin Integrity is Maintained or Improved Outcome: Progressing Goal: Nutritional status is improving Outcome: Progressing Problem: Urinary Incontinence Goal: Perineal skin integrity is maintained or improved Outcome: Progressing Problem: Problem Interventions Goal: Assess Nutritional Intake Outcome: Progressing Goal: Dietary Supplements Outcome: Progressing The patient is Moderately Stable - Low risk of patient condition declining or worsening The patient's goals for the shift include The clinical goals for the shift include Over the shift, the patient did not make progress toward the following goals. Barriers to progression include decrease rest and discomfort. Recommendations to address these barriers include medications per MAR, provide a restful environment. T [employer] [facility] 02-14-2024 Note Formatting of this n ote is different from the original. Images from the original note were not included. Care Management Progress Note Pt remains hospitalized s/p POD 6 of colostomy/reversal 02/09/24. Today pt w + nausea on Full liquid diet. Hgb w steady down trend 7.7,7.6, 7.5-today. IVF decreased. Na also down trend from 137 to 132, 131 today. Pt with documented 10/10 pain DCP home w spouse when clinically cleared. Will need to tolerate diet nad have return of bowel function as well as pain controlled. Tcc to follow. Discharge Milestones and Delays Expected Date/Time: 02/15/[address] discharge order Complete med reconciliation Case mgmt discharge readiness Clinical Stability Diagnsotic Workup Expected Discharge History Expected Date/Time Set By Reviewed At 02/15/2024 Hannah Multani RN 02/14/2024 8:58 AM tcc estimate Trend HGB await tolerance of diet advance(Clr. Liq this am) 02/14/2024 Hannah Multani RN 02/13/2024 8:54 AM 02/14/2024 Dat Wayne MD 02/09/2024 3:14 PM 02/14/2024 Dat Wayne MD 02/09/2024 1:25 PM 02/14/2024 Fernando Brady APRN - SURINDER 02/09/2024 6:12 AM Length of Stay (Days): 5 GMLOS: No GMLOS Documented [facility] [employer] 02-14-2024 Note Formatting of this n ote is different from the original. Images from the original note were not included. Care Management Progress Note Pt remains hospitalized s/p POD 6 of colostomy/reversal 02/09/24. Today pt w + nausea on Full liquid diet. Hgb w steady down trend 7.7,7.6, 7.5-today. IVF decreased. Na also down trend from 137 to 132, 131 today. Pt with documented 10/10 pain DCP home w spouse when clinically cleared. Will need to tolerate diet nad have return of bowel function as well as pain controlled. Tcc to follow. Discharge Milestones and Delays Expected Date/Time: 02/15/[address] discharge order Complete med reconciliation Case mgmt discharge readiness Clinical Stability Diagnsotic Workup Expected Discharge History Expected Date/Time Set By Reviewed At 02/15/2024 Hannah Multani RN 02/14/2024 8:58 AM tcc estimate Trend HGB await tolerance of diet advance(Clr. Liq this am) 02/14/2024 Hannah Multani RN 02/13/2024 8:54 AM 02/14/2024 Dat Wayne MD 02/09/2024 3:14 PM 02/14/2024 Dat Wayne MD 02/09/2024 1:25 PM 02/14/2024 Fernando Brady APRN - SURINDER 02/09/2024 6:12 AM Length of Stay (Days): 5 GMLOS: No GMLOS Documented T [facility] 02-14-2024 Plan of care note Problem: Pain - Adult Goal: Verbalizes/displays adequate comfort level or baseline comfort level Outcome: Progressing Problem: Safety - Adult Goal: Free from fall injury Outcome: Progressing Problem: Discharge Planning Goal: Discharge to home or other facility with appropriate resources Outcome: Progressing T [facility] 02-13-2024 Note Formatting of this n ote is different from the original. Images from the original note were not included. Care Management Progress Note Pt remains hospitalized w s/p colostomy reversal 02/09/24. NGT out. WBC down trending Diet Clr liquid currently to be advanced. Hgb being monitored closely 7.7 x 24 hrs. DCP home no needs when clinically cleared for dc. Tcc following. Discharge Milestones and Delays Expected Date/Time: 02/14/[address] discharge order Complete med reconciliation Case mgmt discharge readiness Clinical Stability Diagnsotic Workup Expected Discharge History Expected Date/Time Set By Reviewed At 02/14/2024 Hannah Multani RN 02/13/2024 8:54 AM tcc estimate Trend HGB await tolerance of diet advance(Clr. Liq this am) 02/14/2024 Dat Wayne MD 02/09/2024 3:14 PM 02/14/2024 Dat Wayne MD 02/09/2024 1:25 PM 02/14/2024 MINNA Dobson CNP 02/09/2024 6:12 AM Length of Stay (Days): 4 GMLOS: No GMLOS Documented T [facility] 02-13-2024 Note Formatting of this n ote is different from the original. Images from the original note were not included. Care Management Progress Note Pt remains hospitalized w s/p colostomy reversal 02/09/24. NGT out. WBC down trending Diet Clr liquid currently to be advanced. Hgb being monitored closely 7.7 x 24 hrs. DCP home no needs when clinically cleared for dc. Tcc following. Discharge Milestones and Delays Expected Date/Time: 02/14/[address] discharge order Complete med reconciliation Case mgmt discharge readiness Clinical Stability Diagnsotic Workup Expected Discharge History Expected Date/Time Set By Reviewed At 02/14/2024 Hannah Multani RN 02/13/2024 8:54 AM tcc estimate Trend HGB await tolerance of diet advance(Clr. Liq this am) 02/14/2024 Dat Wayne MD 02/09/2024 3:14 PM 02/14/2024 Dat Wayne MD 02/09/2024 1:25 PM 02/14/2024 MINNA Dobson CNP 02/09/2024 6:12 AM Length of Stay (Days): 4 GMLOS: No GMLOS Documented T [facility] 02-13-2024 Plan of care note Problem: Pain - Adult Goal: Verbalizes/displays adequate comfort level or baseline comfort level 02/13/2024 1145 by Kimmy Zamora RN Outcome: Progressing 02/13/2024 1145 by Kimmy Zamora RN Outcome: Progressing Problem: Discharge Planning Goal: Discharge to home or other facility with appropriate resources 02/13/2024 1145 by Kimmy Zamora RN Outcome: Progressing 02/13/2024 1145 by Kimmy Zamora RN Outcome: Progressing Problem: Safety - Adult Goal: Free from fall injury 02/13/2024 1145 by Kimmy Zamora RN Outcome: Progressing 02/13/2024 1145 by Kimmy Zamora RN Outcome: Progressin T [facility] 02-13-2024 Plan of care note Problem: Safety - Adult Goal: Free from fall injury Outcome: Progressing Problem: Pain - Adult Goal: Verbalizes/displays adequate comfort level or baseline comfort level Outcome: Progressing Problem: Safety - Adult Goal: Free from fall injury Outcome: Progressing Problem: Discharge Planning Goal: Discharge to home or other facility with appropriate resources Outcome: Progressing T [facility] 02-12-2024 Note Problem: Pain - Adul t Goal: Verbalizes/displays adequate comfort level or baseline comfort level Outcome: Progressing [facility] 02-12-2024 Plan of care note Problem: Pain - Adult Goal: Verbalizes/displays adequate comfort level or baseline comfort level Outcome: Progressing T [facility] 02-11-2024 Note Formatting of this n ote might be different from the original. Care Managment Initial Assessment Date: 02/11/2024 Patient Name: Priscila Cha : 1955 Patient Information Source of Information: Patient Cognition/Language: WFL - Within Functional Limits Permission given to speak with patient surgical device sales representative/caregiver as indicated: Confirmation of Payer with patient/family: Yes Payer Name: Medicare / AARP [place]: No Confirmation of Primary Care Physician: Confirmed PCP Name: Dr. Dee Seen in last 2 years?: Yes Primary Caregiver: Self If assistance needed, confirmed caregiver ready, willing and able to care for patient at discharge: Yes Confirmed with: Per patient, spouse is ready, willing, and able to assist when needed. Living Arrangements Current Residence: House Number of Floors 2 Number of Entry Steps: 2 Bed/Bath Levels: Both second floor Facility: Facility Name: Plan to Return: Lives with: Spouse/significant other Support Systems: Spouse/significant other, Family members Activities of Daily Living Ambulation: Independent Bathing/Dressing: Independent Elimination/Continence/Toileting: Independent Feeding: Independent Who Assists with Activities of Daily Living: Instrumental Activities of Daily Living Prescription Coverage: Yes [facility] Medication Management: Independent Transportation/Shopping: Independent Transportation Mode: Car Needs Assistance with Transportation at Discharge: No (Spouse can transport) Meal Preparation: Independent Laundry/Cleaning: Independent Finances/Bill Paying: Independent Communication: Independent Types of Care Services/Equipment Utilized Care Services: (n/a) Dialysis Type: NA Durable Medical Equipment: Nebulizer Patient's Goal/Discharge Plan Patient expects to be discharged to: return home Discharge Planning Actions: Continue to follow, No needs identified Patient's Choice Rights and [employer] and Collaborative Relationships Disclosed as Indicated for Post-Acute Care: Interdisciplinary Team Engagement: Social Work Referral for: Additional Information: Spoke to patient at bedside. Introduced self and role. Reason for admission: scheduled admission for robotic converted to open Ronni reversal (partial colectomy with colorectal anastomosis); open appendectomy; open small bowel resection; open colorrhaphy; and flexible sigmoidoscopy. Consults: General Surgery PT/OT: no PT/OT consults ordered but patient is independent with all ADL/IADLs and up ad river at baseline Current DCP: return home Discharge planning needs discussed. Patient denied any needs. Patient verbalizes understanding and is in agreement with POC. States family is ready, willing, and able to assist as needed. TCC will continue to follow. Sage Sher RN [facility] 02-11-2024 Note Formatting of this n ote might be different from the original. Care Managment Initial Assessment Date: 02/11/2024 Patient Name: Priscila Cha : 1955 Patient Information Source of Information: Patient Cognition/Language: WFL - Within Functional Limits Permission given to speak with patient surgical device sales representative/caregiver as indicated: Confirmation of Payer with patient/family: Yes Payer Name: Medicare / [employer] [place]: No Confirmation of Primary Care Physician: Confirmed PCP Name: Dr. Dee Seen in last 2 years?: Yes Primary Caregiver: Self If assistance needed, confirmed caregiver ready, willing and able to care for patient at discharge: Yes Confirmed with: Per patient, spouse is ready, willing, and able to assist when needed. Living Arrangements Current Residence: House Number of Floors 2 Number of Entry Steps: 2 Bed/Bath Levels: Both second floor Facility: Facility Name: Plan to Return: Lives with: Spouse/significant other Support Systems: Spouse/significant other, Family members Activities of Daily Living Ambulation: Independent Bathing/Dressing: Independent Elimination/Continence/Toileting: Independent Feeding: Independent Who Assists with Activities of Daily Living: Instrumental Activities of Daily Living Prescription Coverage: Yes [facility] Medication Management: Independent Transportation/Shopping: Independent Transportation Mode: Car Needs Assistance with Transportation at Discharge: No (Spouse can transport) Meal Preparation: Independent Laundry/Cleaning: Independent Finances/Bill Paying: Independent Communication: Independent Types of Care Services/Equipment Utilized Care Services: (n/a) Dialysis Type: NA Durable Medical Equipment: Nebulizer Patient's Goal/Discharge Plan Patient expects to be discharged to: return home Discharge Planning Actions: Continue to follow, No needs identified Patient's Choice Rights and [employer] and Collaborative Relationships Disclosed as Indicated for Post-Acute Care: Interdisciplinary Team Engagement: Social Work Referral for: Additional Information: Spoke to patient at bedside. Introduced self and role. Reason for admission: scheduled admission for robotic converted to open Ronni reversal (partial colectomy with colorectal anastomosis); open appendectomy; open small bowel resection; open colorrhaphy; and flexible sigmoidoscopy. Consults: General Surgery PT/OT: no PT/OT consults ordered but patient is independent with all ADL/IADLs and up ad river at baseline Current DCP: return home Discharge planning needs discussed. Patient denied any needs. Patient verbalizes understanding and is in agreement with POC. States family is ready, willing, and able to assist as needed. TCC will continue to follow. Sage Sher RN [facility] 02-11-2024 Note Problem: Pain - Adul t Goal: Verbalizes/displays adequate comfort level or baseline comfort level 02/11/2024 1241 by Pooja Witt RN Outcome: Progressing 02/11/2024 1111 by Pooja Witt RN Outcome: Progressing [facility] 02-11-2024 Plan of care note Problem: Pain - Adult Goal: Verbalizes/displays adequate comfort level or baseline comfort level 02/11/2024 1241 by Pooja Witt RN Outcome: Progressing 02/11/2024 1111 by Pooja Witt RN Outcome: Progressing [facility] 02-11-2024 Note Problem: Pain - Adul t Goal: Verbalizes/displays adequate comfort level or baseline comfort level Outcome: Progressing [facility] 02-11-2024 Plan of care note Problem: Pain - Adult Goal: Verbalizes/displays adequate comfort level or baseline comfort level Outcome: Progressing T [facility] 02-09-2024 Consult note Associated Order (s): IP CONSULT TO HOSPITALIST Hospital Medicine Consult Patient - Priscila Cha, Age - 68 y.o. - 1955 Room Number - [id number] Consulting - Adria Lopez MD Primary Care Physician - [phone] Date of Admission - 02/09/2024 5:49 AM Hospital Day - 0 Reason for Consult: Medical Management HISTORY OF PRESENT ILLNESS: Priscila is a 68 y.o. female pmhx below. She is s/p robotic/open Ronni reversal today. We were asked to see for medical management. No abdominal pain currently. NGT is in place. She is having severe right eye pain, worse when opened and in light. It is sharp and excruciating. She denies cp, sob, cough, emesis, f/c. She has a hx COPD and ANJANA but is not on CPAP at hs. D/w pt and at bedside and QUETA Abernathy, separately. Past Medical History: Past Medical History: Diagnosis Date Anxiety Arthritis COPD exacerbation (HCC) 06/20/2022 Motion sickness Pneumonia 03/04/2019 Primary hypertension 06/24/2023 Sleep apnea does not use CPAP Past Surgical History: Past Surgical History: Procedure Laterality Date APPENDECTOMY 02/09/2024 BACK SURGERY N/A 2017 lower back in middle COLONOSCOPY N/A 01/02/2024 Performed by Jefe Arias MD at [facility] ENDOSCOPY COLOSTOMY COLOSTOMY CLOSURE 02/09/2024 DILATION AND CURETTAGE OF UTERUS EXPLORATORY LAPAROTOMY 11/04/2023 colon resection, colostomy HIP ARTHROPLASTY Right 2023 MANDIBLE SURGERY Bilateral 1983 wires on both jaws now SEPTOPLASTY SMALL INTESTINE SURGERY 02/09/2024 resection TONSILLECTOMY (HISTORICAL) Medications: Scheduled PRN acetaminophen, 1,000 mg, Oral, q8h [START ON 02/10/2024] enoxaparin, 40 mg, SubCUTAneous, Daily mometasone-formoterol, 2 puff, Inhalation, BID sodium chloride 0.9%, 10 mL, IntraVENous, 2 times per day tiotropium, 2 puff, Inhalation, Daily PRN medications: carboxymethylcellulose PF, HYDROmorphone OR HYDROmorphone, naloxone, ondansetron ODT OR ondansetron, oxyCODONE OR oxyCODONE, sodium chloride, sodium chloride 0.9% Continuous dextrose 5 % and sodium chloride 0.45 % with KCl 20 mEq/L, 100 mL/hr, Last Rate: 100 mL/hr (02/09/24 1613) Allergies: Levofloxacin and Sulfa antibiotics Social History: Social History Socioeconomic History Marital status: Spouse name: Not on file Number of children: Not on file Years of education: Not on file Highest education level: Not on file Occupational History Not on file Tobacco Use Smoking status: Former Types: Cigarettes Quit date: 01/16/2024 Years since quittin.0 Smokeless tobacco: Never Tobacco comments: Quit smoking: trying to quit Vaping Use Vaping Use: Never used Substance and Sexual Activity Alcohol use: Not Currently Drug use: Yes Types: Marijuana Comment: Medical Marijuana: uses gummies Sexual activity: Defer Other Topics Concern Not on file Social History Narrative Not on file Social Determinants of Health Financial Resource Strain: Not on file Food Insecurity: Not on file Transportation Needs: No Transportation Needs (11/04/2023) PRAPARE - Transportation Lack of Transportation (Medical): No Lack of Transportation (Non-Medical): No Physical Activity: Not on file Stress: Not on file Social Connections: Not on file Intimate Partner Violence: Not At Risk (02/09/2024) Humiliation, Afraid, Rape, and Kick questionnaire Fear of Current or Ex-Partner: No Emotionally Abused: No Physically Abused: No Sexually Abused: No Housing Stability: Low Risk (11/04/2023) Housing Stability Vital Sign Unable to Pay for Housing in the Last Year: No Number of Places Lived in the Last Year: 1 Unstable Housing in the Last Year: No Family History: Family History Problem Relation Name Age of Onset No Known Problems Other No Known Problems Brother No Known Problems Maternal Grandfather No Known Problems Paternal Grandfather No Known Problems Sister No Known Problems Maternal Grandmother No Known Problems Paternal Grandmother REVIEW OF SYSTEMS: 10 point ROS obtained, as per HPI, otherwise NEG Physical Exam: Vitals: BP 115/69 Pulse 96 Temp 36.3 C (97.3 F) (Temporal) Resp 17 Ht 5' 3 (1.6 m) Wt 128 lb (58.1 kg) LMP (LMP Unknown) SpO2 96% BMI 22.67 kg/m BMI Classification: Normal Weight (BMI 18.5-24.9) Pulse Ox: SpO2 Av.6 % Min: 95 % Max: 100 % Supplemental O2: Physical Exam Vitals and nursing note reviewed. Constitutional: General: She is not in acute distress. HENT: Head: Normocephalic and atraumatic. Mouth/Throat: Mouth: Mucous membranes are dry. Eyes: General: Right eye: Discharge present. Cardiovascular: Rate and Rhythm: Normal rate and regular rhythm. Pulses: Normal pulses. Pulmonary: Effort: Pulmonary effort is normal. Breath sounds: Normal breath sounds. Abdominal: General: There is no distension. Tenderness: There is abdominal tenderness. There is no guarding or rebound. Musculoskeletal: Cervical back: Neck supple. Right lower leg: No edema. Left lower leg: No edema. Skin: General: Skin is warm. Capillary Refill: Capillary refill takes less than 2 seconds. Neurological: General: No focal deficit present. Mental Status: She is alert and oriented to person, place, and time. Mental status is at baseline. Psychiatric: Mood and Affect: Mood normal. LABS: No results found for this or any previous visit (from the past 24 hour(s)). Urine Culture: No results found for this or any previous visit. IMAGING: See report Assessment S/P Ronni reversal Eye pain possible corneal abrasion HTN COPD ANJANA Depression/anxiety Plan NGT to suction, NPO, IVF, pain control, eye drops, IS, MDIs, await bowel function, follow up labs, increase activity, discontinue watkins soon, discharge planning, see orders. - am labs, replace lytes prn - PT/OT/CM/SW - delirium precautions: increase activity - DVT prophylaxis: SCDs and encourage ambulation Advance Directive: Full Code Anticipated Discharge - Date - 02/10-02/11 - Location - Home with Home Health Care - Pending the following - post op recovery, tolerating diet and when OK with GS Total time spent (which include face to face and non face to face encounters) : 48 minutes Toxic drug monitoring/narrow therapeutic index drug monitoring : # Drug name : # Route administered : # Method of monitoring : Extended Emergency Contact Information Primary Emergency Contact: Deja Cha [facility] Mobile Relation: Spouse Blair Wing MD Division of Hospitalist Medicine [facility] 02-09-2024 Consult note Associated Order (s): IP CONSULT TO HOSPITALIST Hospital Medicine Consult Patient - Priscila Cha, Age - 68 y.o. - 1955 Room Number - [id number] A Consulting - Adria Lopez MD Primary Care Physician - [facility] [phone] Date of Admission - 02/09/2024 5:49 AM Hospital Day - 0 Reason for Consult: Medical Management HISTORY OF PRESENT ILLNESS: Priscila is a 68 y.o. female pmhx below. She is s/p robotic/open Ronni reversal today. We were asked to see for medical management. No abdominal pain currently. NGT is in place. She is having severe right eye pain, worse when opened and in light. It is sharp and excruciating. She denies cp, sob, cough, emesis, f/c. She has a hx COPD and ANJANA but is not on CPAP at hs. D/w pt and at bedside and QUETA Abernathy, separately. Past Medical History: Past Medical History: Diagnosis Date Anxiety Arthritis COPD exacerbation (HCC) 06/20/2022 Motion sickness Pneumonia 03/04/2019 Primary hypertension 06/24/2023 Sleep apnea does not use CPAP Past Surgical History: Past Surgical History: Procedure Laterality Date APPENDECTOMY 02/09/2024 BACK SURGERY N/A 2017 lower back in middle COLONOSCOPY N/A 01/02/2024 Performed by Jefe Arias MD at [facility] ENDOSCOPY COLOSTOMY COLOSTOMY CLOSURE 02/09/2024 DILATION AND CURETTAGE OF UTERUS EXPLORATORY LAPAROTOMY 11/04/2023 colon resection, colostomy HIP ARTHROPLASTY Right 2023 MANDIBLE SURGERY Bilateral 1983 wires on both jaws now SEPTOPLASTY SMALL INTESTINE SURGERY 02/09/2024 resection TONSILLECTOMY (HISTORICAL) Medications: Scheduled PRN acetaminophen, 1,000 mg, Oral, q8h [START ON 02/10/2024] enoxaparin, 40 mg, SubCUTAneous, Daily mometasone-formoterol, 2 puff, Inhalation, BID sodium chloride 0.9%, 10 mL, IntraVENous, 2 times per day tiotropium, 2 puff, Inhalation, Daily PRN medications: carboxymethylcellulose PF, HYDROmorphone OR HYDROmorphone, naloxone, ondansetron ODT OR ondansetron, oxyCODONE OR oxyCODONE, sodium chloride, sodium chloride 0.9% Continuous dextrose 5 % and sodium chloride 0.45 % with KCl 20 mEq/L, 100 mL/hr, Last Rate: 100 mL/hr (02/09/24 1613) Allergies: Levofloxacin and Sulfa antibiotics Social History: Social History Socioeconomic History Marital status: Spouse name: Not on file Number of children: Not on file Years of education: Not on file Highest education level: Not on file Occupational History Not on file Tobacco Use Smoking status: Former Types: Cigarettes Quit date: 01/16/2024 Years since quittin.0 Smokeless tobacco: Never Tobacco comments: Quit smoking: trying to quit Vaping Use Vaping Use: Never used Substance and Sexual Activity Alcohol use: Not Currently Drug use: Yes Types: Marijuana Comment: Medical Marijuana: uses gummies Sexual activity: Defer Other Topics Concern Not on file Social History Narrative Not on file Social Determinants of Health Financial Resource Strain: Not on file Food Insecurity: Not on file Transportation Needs: No Transportation Needs (11/04/2023) PRAPARE - Transportation Lack of Transportation (Medical): No Lack of Transportation (Non-Medical): No Physical Activity: Not on file Stress: Not on file Social Connections: Not on file Intimate Partner Violence: Not At Risk (02/09/2024) Humiliation, Afraid, Rape, and Kick questionnaire Fear of Current or Ex-Partner: No Emotionally Abused: No Physically Abused: No Sexually Abused: No Housing Stability: Low Risk (11/04/2023) Housing Stability Vital Sign Unable to Pay for Housing in the Last Year: No Number of Places Lived in the Last Year: 1 Unstable Housing in the Last Year: No Family History: Family History Problem Relation Name Age of Onset No Known Problems Other No Known Problems Brother No Known Problems Maternal Grandfather No Known Problems Paternal Grandfather No Known Problems Sister No Known Problems Maternal Grandmother No Known Problems Paternal Grandmother REVIEW OF SYSTEMS: 10 point ROS obtained, as per HPI, otherwise NEG Physical Exam: Vitals: BP 115/69 Pulse 96 Temp 36.3 C (97.3 F) (Temporal) Resp 17 Ht 5' 3 (1.6 m) Wt 128 lb (58.1 kg) LMP (LMP Unknown) SpO2 96% BMI 22.67 kg/m BMI Classification: Normal Weight (BMI 18.5-24.9) Pulse Ox: SpO2 Av.6 % Min: 95 % Max: 100 % Supplemental O2: Physical Exam Vitals and nursing note reviewed. Constitutional: General: She is not in acute distress. HENT: Head: Normocephalic and atraumatic. Mouth/Throat: Mouth: Mucous membranes are dry. Eyes: General: Right eye: Discharge present. Cardiovascular: Rate and Rhythm: Normal rate and regular rhythm. Pulses: Normal pulses. Pulmonary: Effort: Pulmonary effort is normal. Breath sounds: Normal breath sounds. Abdominal: General: There is no distension. Tenderness: There is abdominal tenderness. There is no guarding or rebound. Musculoskeletal: Cervical back: Neck supple. Right lower leg: No edema. Left lower leg: No edema. Skin: General: Skin is warm. Capillary Refill: Capillary refill takes less than 2 seconds. Neurological: General: No focal deficit present. Mental Status: She is alert and oriented to person, place, and time. Mental status is at baseline. Psychiatric: Mood and Affect: Mood normal. LABS: No results found for this or any previous visit (from the past 24 hour(s)). Urine Culture: No results found for this or any previous visit. IMAGING: See report Assessment S/P Ronni reversal Eye pain possible corneal abrasion HTN COPD ANJANA Depression/anxiety Plan NGT to suction, NPO, IVF, pain control, eye drops, IS, MDIs, await bowel function, follow up labs, increase activity, discontinue watkins soon, discharge planning, see orders. - am labs, replace lytes prn - PT/OT/CM/SW - delirium precautions: increase activity - DVT prophylaxis: SCDs and encourage ambulation Advance Directive: Full Code Anticipated Discharge - Date - 02/10-02/11 - Location - Home with Home Health Care - Pending the following - post op recovery, tolerating diet and when OK with GS Total time spent (which include face to face and non face to face encounters) : 48 minutes Toxic drug monitoring/narrow therapeutic index drug monitoring : # Drug name : # Route administered : # Method of monitoring : Extended Emergency Contact Information Primary Emergency Contact: Deja Cha [facility] Mobile Relation: Spouse Blair Wing MD Division of Hospitalist Medicine [facility] documented in this encounter [facility] 02-09-2024 Note Formatting of this n ote might be different from the original. To 1 east via bed family at bedside and updated pt able to rest quietly when not disturbed report to dami [facility] 02-09-2024 Note Formatting of this n ote might be different from the original. To 1 east via bed family at bedside and updated pt able to rest quietly when not disturbed report to dami [facility] 02-09-2024 Note [facility] 02-09-2024 Note [facility] 02-09-2024 Note Formatting of this n ote might be different from the original. OPERATIVE NOTE DATE OF PROCEDURE: 02/09/2024 SURGEON: Adria Lopez MD SPIN TABLE OPERATOR: Dr. Jefe Arias MD was asked to assist with this case as no qualified resident was available. Dat Wayne MD (PGY-5) PREOPERATIVE DIAGNOSIS: Colostomy in place, history of prior Ronni procedure for diverticulitis POSTOPERATIVE DIAGNOSIS: Same OPERATION: 1. Robotic converted to open Ronni reversal (partial colectomy with colorectal anastomosis) 2. Open appendectomy 3. Open small bowel resection 4. Open colorrhaphy 5. Flexible sigmoidoscopy ANESTHESIA: General anesthesia ESTIMATED BLOOD LOSS: 100cc COMPLICATIONS: None SPECIMENS: 1. Appendix 2. Small bowel resection 3. Rectal stump with anastomotic rings PREOPERATIVE MEDICATIONS: Ancef 2g HISTORY: The patient is a 68 y.o. year old female with history of above preop diagnosis. The patient was recommended for robotic ronni reversal, possible open. I explained the risk, benefits, expected outcome, and alternatives to surgery including risks of bleeding with need for blood transfusion, infection, iatrogenic injury, need for repeat operation, recurrent disease, and possibility of conversion to open procedure. The patient demonstrated an understanding of the above and provided written and verbal consent to proceed with surgery. PROCEDURE: The patient was brought to the operating room and general endotracheal anesthesia initiated by the anesthesia team. The patient was placed in the lithotomy position with arms tucked by their sides with all bony prominences appropriately padded. A watkins catheter was placed. A preoperative timeout was performed confirming the patient's name, operative site, operative plan, and other information critical to patient care. The abdomen was prepped and draped in the standard sterile fashion. A stab incision was made in the left upper quadrant at palmers point. The fascia was elevated and a Veress needle introduced into the abdomen. Pneumoperitoneum was established to 18mmHg. An 8mm incision was made in the right upper quadrant and a trocar was introduced via the incision. After brief inspection of the abdomen confirmed no injuries related to initial veress and trocar placement, additional trocars were placed under direct visualization as follows: a total of 4 robotic trochars from the left costal margin to the right ASIS with 3 of them being 8 mm and one of them being a 12 mm port as well as a right upper quadrant 5 mm assistant technician port was placed The patient was then placed in Trendelenburg with right lateral tilt. The robot was then docked. The abdomen was inspected. Significant adhesive disease was present throughout the entire abdomen. These adhesions were taken down with a combination of monopolar electrocautery and blunt and sharp dissection. After some adhesiolysis, there were yet more dense adhesions present with concern for possible bowel injury related to the extensive adhesiolysis. Therefore the decision was made to convert to an open procedure. The robot was undocked and all trocars removed. A midline laparotomy was made from just above the umbilicus to the pubic symphysis, excising the prior midline scar. The incision was carried down the the subcutaneous tissue and the linea alba divided. Additional adhesiolysis was performed for an additional 180min. At this point a partial thickness colotomy was identified in the transverse colon as well as two full thickness enterotomies related to the adhesiolysis. There was no spillage of enteric contents. Attention was direct to dissecting out the rectal stump to determine feasibility of completion of the reversal operation. The rectal stump was identified and appeared to be densely adherent to the uterus. The uterus was grasped with a tenaculum forceps and retracted caudad. Dense adhesions within the retrouterine pouch of Figueroa were taken down sharply. A rectal dilator was introduced to assist with the dissection. The dilator was unable to be advanced to the extent of the retained sigmoid colon. A flexible sigmoidoscopy was performed by advancing an olympus colonoscopy via the rectum to visualize the remnant rectal stump. The rectal stump was noted to be tortuous, but otherwise without stenosis nor perforation. Additional adhesiolysis was performed until the rectal stump was dissected circumferentially below the level of the peritoneal reflection. Attention was then directed to the small bowel which was run from the ileocecal valve to the ligament of treitz. Two enterotomies were identified approximately 25cm apart. These were managed by small bowel resection. A proximal and distal transection point were selected to exclude the enterotomies. A window was made in the mesentery at the proposed proximal transection point. The small bowel was divided with a linear cutting stapler (Open TETE, 75mm blue load). In a similar fashion a window was made in the mesentery at the proposed distal transection point. The bowel was divided similarly with a linear cutting stapler. The stapled edges were cut and the limbs of bowel aligned to perform a [id number] functional end-to-end anastomosis. This was performed with an additional 75mm blue load. The common enterotomy was closed with a final 75mm blue load in a stapled fashion. The appendix was then removed at this time incidentally to avoid any future potential surgical complications of acute appendicitis. Appendix was removed using TETE stapler blue load and Enseal to divide the mesoappendix. Attention then turned to the transverse colotomy was inspected. A partial thickness injury was identified. This was repaired with interrupted sutures of 3-0 vicryl. A curivlinear cutting stapler (Contour 60mm green load) was used to divide the rectum below the colorectal anastomosis. The prior colostomy site was circumferentially incised and dissected free from the skin and fascia. The colon was placed down in the pelvis and appeared to reach without tension. A curivlinear cutting stapler (Contour 60mm green load) was used to divide the rectum. The colon was grasped with a 65mm automatic pursestringer and divided distally. A 25mm EEA anvil was placed in the distal end of the colon and the colon was placed into the pelvis without tension nor torsion. The divided segment of bowel was handed off for pathologic examination. The 25mm EEA stapler was advanced into the rectum and an end-to-end stapled colo-rectal anastomosis was fashioned. A flexible sigmoidoscopy was again performed and demonstrated the anastomosis at 10cm which appeared viable and intact. A provocative leak test was perfomed and was again negative. The omentum was returned to its natural position. The posterior rectus sheath was closed with interrupted sutures of #0 PDS. In a similar fashion, the posterior rectus sheath aponeurosis was closed at the 12mm trocar site in the right lower quadrant. The midline was then closed with a running suture of #0 looped PDS. All incisions were irrigated. All trocars were removed. The colostomy site incision was closed with a purse-string suture of #0 Vicryl and with a betadine-soaked packing wick in the incision. The skin was stapled closed for all remaining incisions. At the conclusion of the case all sponge, needle, and instrument counts were correct x2. The patient tolerated the procedure well, was extubated, and sent to the recovery room in stable condition. This case involved extensive dissection including adhesio lysis and extensive dissection for the colon closure for over 180 minutes thus increased the residual complexity and operative time necessary for the procedure. As a result a modifier 22 will be appended. Dat Wayne MD General Surgery, PGY-5 02/09/2024 1:25 PM [facility] 02-09-2024 Note Formatting of this n ote might be different from the original. OPERATIVE NOTE DATE OF PROCEDURE: 02/09/2024 SURGEON: Adria Lopez MD SPIN TABLE OPERATOR: Dr. Jefe Arias MD was asked to assist with this case as no qualified resident was available. Dat Wayne MD (PGY-5) PREOPERATIVE DIAGNOSIS: Colostomy in place, history of prior Ronni procedure for diverticulitis POSTOPERATIVE DIAGNOSIS: Same OPERATION: 1. Robotic converted to open Ronni reversal (partial colectomy with colorectal anastomosis) 2. Open appendectomy 3. Open small bowel resection 4. Open colorrhaphy 5. Flexible sigmoidoscopy ANESTHESIA: General anesthesia ESTIMATED BLOOD LOSS: 100cc COMPLICATIONS: None SPECIMENS: 1. Appendix 2. Small bowel resection 3. Rectal stump with anastomotic rings PREOPERATIVE MEDICATIONS: Ancef 2g HISTORY: The patient is a 68 y.o. year old female with history of above preop diagnosis. The patient was recommended for robotic ronni reversal, possible open. I explained the risk, benefits, expected outcome, and alternatives to surgery including risks of bleeding with need for blood transfusion, infection, iatrogenic injury, need for repeat operation, recurrent disease, and possibility of conversion to open procedure. The patient demonstrated an understanding of the above and provided written and verbal consent to proceed with surgery. PROCEDURE: The patient was brought to the operating room and general endotracheal anesthesia initiated by the anesthesia team. The patient was placed in the lithotomy position with arms tucked by their sides with all bony prominences appropriately padded. A watkins catheter was placed. A preoperative timeout was performed confirming the patient's name, operative site, operative plan, and other information critical to patient care. The abdomen was prepped and draped in the standard sterile fashion. A stab incision was made in the left upper quadrant at palmers point. The fascia was elevated and a Veress needle introduced into the abdomen. Pneumoperitoneum was established to 18mmHg. An 8mm incision was made in the right upper quadrant and a trocar was introduced via the incision. After brief inspection of the abdomen confirmed no injuries related to initial veress and trocar placement, additional trocars were placed under direct visualization as follows: a total of 4 robotic trochars from the left costal margin to the right ASIS with 3 of them being 8 mm and one of them being a 12 mm port as well as a right upper quadrant 5 mm assistant technician port was placed The patient was then placed in Trendelenburg with right lateral tilt. The robot was then docked. The abdomen was inspected. Significant adhesive disease was present throughout the entire abdomen. These adhesions were taken down with a combination of monopolar electrocautery and blunt and sharp dissection. After some adhesiolysis, there were yet more dense adhesions present with concern for possible bowel injury related to the extensive adhesiolysis. Therefore the decision was made to convert to an open procedure. The robot was undocked and all trocars removed. A midline laparotomy was made from just above the umbilicus to the pubic symphysis, excising the prior midline scar. The incision was carried down the the subcutaneous tissue and the linea alba divided. Additional adhesiolysis was performed for an additional 180min. At this point a partial thickness colotomy was identified in the transverse colon as well as two full thickness enterotomies related to the adhesiolysis. There was no spillage of enteric contents. Attention was direct to dissecting out the rectal stump to determine feasibility of completion of the reversal operation. The rectal stump was identified and appeared to be densely adherent to the uterus. The uterus was grasped with a tenaculum forceps and retracted caudad. Dense adhesions within the retrouterine pouch of Figueroa were taken down sharply. A rectal dilator was introduced to assist with the dissection. The dilator was unable to be advanced to the extent of the retained sigmoid colon. A flexible sigmoidoscopy was performed by advancing an olympus colonoscopy via the rectum to visualize the remnant rectal stump. The rectal stump was noted to be tortuous, but otherwise without stenosis nor perforation. Additional adhesiolysis was performed until the rectal stump was dissected circumferentially below the level of the peritoneal reflection. Attention was then directed to the small bowel which was run from the ileocecal valve to the ligament of treitz. Two enterotomies were identified approximately 25cm apart. These were managed by small bowel resection. A proximal and distal transection point were selected to exclude the enterotomies. A window was made in the mesentery at the proposed proximal transection point. The small bowel was divided with a linear cutting stapler (Open TETE, 75mm blue load). In a similar fashion a window was made in the mesentery at the proposed distal transection point. The bowel was divided similarly with a linear cutting stapler. The stapled edges were cut and the limbs of bowel aligned to perform a mgra-rk-niwh functional end-to-end anastomosis. This was performed with an additional 75mm blue load. The common enterotomy was closed with a final 75mm blue load in a stapled fashion. The appendix was then removed at this time incidentally to avoid any future potential surgical complications of acute appendicitis. Appendix was removed using TETE stapler blue load and Enseal to divide the mesoappendix. Attention then turned to the transverse colotomy was inspected. A partial thickness injury was identified. This was repaired with interrupted sutures of 3-0 vicryl. A curivlinear cutting stapler (Contour 60mm green load) was used to divide the rectum below the colorectal anastomosis. The prior colostomy site was circumferentially incised and dissected free from the skin and fascia. The colon was placed down in the pelvis and appeared to reach without tension. A curivlinear cutting stapler (Contour 60mm green load) was used to divide the rectum. The colon was grasped with a 65mm automatic pursestringer and divided distally. A 25mm EEA anvil was placed in the distal end of the colon and the colon was placed into the pelvis without tension nor torsion. The divided segment of bowel was handed off for pathologic examination. The 25mm EEA stapler was advanced into the rectum and an end-to-end stapled colo-rectal anastomosis was fashioned. A flexible sigmoidoscopy was again performed and demonstrated the anastomosis at 10cm which appeared viable and intact. A provocative leak test was perfomed and was again negative. The omentum was returned to its natural position. The posterior rectus sheath was closed with interrupted sutures of #0 PDS. In a similar fashion, the posterior rectus sheath aponeurosis was closed at the 12mm trocar site in the right lower quadrant. The midline was then closed with a running suture of #0 looped PDS. All incisions were irrigated. All trocars were removed. The colostomy site incision was closed with a purse-string suture of #0 Vicryl and with a betadine-soaked packing wick in the incision. The skin was stapled closed for all remaining incisions. At the conclusion of the case all sponge, needle, and instrument counts were correct x2. The patient tolerated the procedure well, was extubated, and sent to the recovery room in stable condition. This case involved extensive dissection including adhesio lysis and extensive dissection for the colon closure for over 180 minutes thus increased the residual complexity and operative time necessary for the procedure. As a result a modifier 22 will be appended. Dat Wayne MD General Surgery, PGY-5 02/09/2024 1:25 PM [facility] 02-09-2024 Note Formatting of this n ote might be different from the original. Patient educated on importance of coughing/ deep breathing after surgery to reduce risk of pneumonia. Patient educated on importance of early mobility to reduce the risk of blood clots. Falls prevention information reviewed with patient. Post-operative pain control and ways to prevent constipation discussed with patient. [facility] 02-09-2024 Note Formatting of this n ote might be different from the original. Patient educated on importance of coughing/ deep breathing after surgery to reduce risk of pneumonia. Patient educated on importance of early mobility to reduce the risk of blood clots. Falls prevention information reviewed with patient. Post-operative pain control and ways to prevent constipation discussed with patient. [facility] Note HNO ID: [id number] Author: RUBÉN JIMENES MD Service: ? Author Type: Physician Type: Progress Notes Filed: 02/05/2024 15:32 Note Text: ORTHOPAEDIC OFFICE NOTE CHIEF COMPLAINT: Right total hip arthroplasty HISTORY OF PRESENT ILLNESS: Priscila Cha is a 68 year old female who presents for Postoperative valuation following right total hip arthroplasty on 10/16/2023. Overall she is doing very well. For most part she is pain-free. She is achieved excellent pain relief compared to the preoperative state. She is ambulate independently without issue and is more or less back to normal activity. She denies current fevers chills nausea vomiting weight loss fatigue or malaise. Reviewed nursing note and current pain scale. PAST MEDICAL HISTORY Diagnosis Date Anxiety Arthritis Atrophic vaginitis Chronic pain Constipation COPD (chronic obstructive pulmonary disease) (HCC) Depression Dyspareunia in female Headache, migraine Hemorrhoids IBS (irritable bowel syndrome) patient denies IBS pt will d/w PCP Menopausal and female climacteric states Multilevel degenerative disc disease Panic disorder Shingles recurring Sinusitis Sleep apnea Spondylolisthesis at L5-S1 level Urinary frequency PAST SURGICAL HISTORY Procedure Laterality Date BACK SURGERY HX 06/2017 cage around discs CATARACT EXTRACTION HX 2008 COLONOSCOPY 01/10/2018 EXTENSIVE JAW SURGERY 1983 SEPTOPLASTY 1985 TONSILLECTOMY HX age 4 FAMILY HISTORY Problem Relation Age of Onset Coronary Artery Disease Mother Coronary Artery Disease Father Colon Cancer Paternal Grandmother Arthritis Other other (Congestive heart failure) Other Thyroid Other Disorder Social History Tobacco Use Smoking status: Former Packs/day: .75 Types: Cigarettes Quit date: 09/27/2023 Years since quittin.3 Smokeless tobacco: Never Tobacco comments: Trying to quit Vaping Use Vaping Use: Never used Substance Use Topics Alcohol use: No Drug use: Yes Types: Marijuana Comment: THC gummies MEDICATIONS: Current Outpatient Medications Medication Sig MAGNESIUM GLYCINATE ORAL Take 400 mg by mouth once daily. HERBAL THERAPY CBD Gummie- Take one by mouth daily at bedtime as needed for insomnia albuterol HFA (PROVENTIL HFA, VENTOLIN HFA) 90 mcg/actuation inhaler Inhale 2 Puffs as instructed every 4 hours as needed for wheezing/shortness of breath. cholecalciferol (VITAMIN D3) 1,000 unit tab tablet 2 tabs Orally Once a day TRELEGY ELLIPTA 200-62.5-25 mcg inhalation powder Inhale 1 Puff as instructed once daily. takes in morning traZODone (DESYREL) 50 mg tablet Take 50 mg by mouth daily at bedtime. clonazePAM (KLONOPIN) 0.5 mg tablet Take 0.25 mg by mouth two times a day as needed for anxiety. Patient reports that Klonopin 0.5mg daily prn is prescribed but that when at home she usually takes Klonopin 0.25mg bid prn Paula Bernal, [facility] October 17, 2023 7:43 AM gabapentin (NEURONTIN) 300 mg capsule Take 300 mg by mouth daily at bedtime. dicyclomine (BENTYL) 20 mg tablet Take 20 mg by mouth three times a day as needed (GI upset). aspirin, enteric coated (ADULT LOW DOSE ASPIRIN) 81 mg EC tablet Take 1 tablet by mouth two times a day for 21 days. No current facility-administered medications for this visit. ALLERGIES: ALLERGIES Allergen Reactions Levaquin [Levofloxa* GI Upset Sulfa (Sulfonamide * Vomiting PHYSICAL EXAMINATION: Resp 16 Ht 5' 3 (1.60m) Wt 134 lb (60.8kg) BMI 23.74 kg/(m2). General Appearance: Well appearing, alert, in no acute distress, well-hydrated, well nourished. Skin: Skin color, texture, turgor normal, no suspicious rashes or lesions. Psych: Patient is alert and oriented to person, time and place. Mood and affect are normal. Respiratory: Breathing is symmetric and unlabored Gait: Patient is able to ambulate independently without issue. There is no significant antalgia. She does not require assistive device. Extremities: Right lower extremity examined. Laterally based incision is well-healed without drainage or sign of infection. There is no focal tenderness or palpable mass. Gentle range of motion of the hip is relatively pain-free. Lymphatic: There is no palpable lymphadenopathy Peripheral Pulses: Normal. Neurologic: Bilateral lower extremities were examined. There is 5/5 strength with hip flexion, knee extension, dorsiflexion, EHL, plantar flexion. Sensation intact in all nerve dermatomes IMAGES: No results found for this or any previous visit (from the past 36 hour(s)). Plan ASSESSMENT AND PLAN: 1. S/P total right hip arthroplasty - ICD9: V43.64, ICD10: Z96.641 Functional Plan: Patient is a 68-year-old female presenting follow-up evaluation for right total hip arthroplasty 10/16/2023. Overall she is doing very well. For most part she is pain-free. She is ambulate independently without issues achieved excellent pain relief compared to th (more content not included)... [facility] 02-05-2024 History of Present illness Narrative ORTHOPAEDIC OFFICE NOTE CHIEF COMPLAINT: Right total hip arthroplasty HISTORY OF PRESENT ILLNESS: Priscila Cha is a 68 year old female who presents for Postoperative valuation following right total hip arthroplasty on 10/16/2023. Overall she is doing very well. For most part she is pain-free. She is achieved excellent pain relief compared to the preoperative state. She is ambulate independently without issue and is more or less back to normal activity. She denies current fevers chills nausea vomiting weight loss fatigue or malaise. Reviewed nursing note and current pain scale. PAST MEDICAL HISTORY Diagnosis Date Anxiety Arthritis Atrophic vaginitis Chronic pain Constipation COPD (chronic obstructive pulmonary disease) (HCC) Depression Dyspareunia in female Headache, migraine Hemorrhoids IBS (irritable bowel syndrome) patient denies IBS pt will d/w PCP Menopausal and female climacteric states Multilevel degenerative disc disease Panic disorder Shingles recurring Sinusitis Sleep apnea Spondylolisthesis at L5-S1 level Urinary frequency PAST SURGICAL HISTORY Procedure Laterality Date BACK SURGERY HX 06/2017 cage around discs CATARACT EXTRACTION HX 2008 COLONOSCOPY 01/10/2018 EXTENSIVE JAW SURGERY 1983 SEPTOPLASTY 1985 TONSILLECTOMY HX age 4 FAMILY HISTORY Problem Relation Age of Onset Coronary Artery Disease Mother Coronary Artery Disease Father Colon Cancer Paternal Grandmother Arthritis Other other (Congestive heart failure) Other Thyroid Other Disorder Social History Tobacco Use Smoking status: Former Packs/day: .75 Types: Cigarettes Quit date: 09/27/2023 Years since quittin.3 Smokeless tobacco: Never Tobacco comments: Trying to quit Vaping Use Vaping Use: Never used Substance Use Topics Alcohol use: No Drug use: Yes Types: Marijuana Comment: THC gummies MEDICATIONS: Current Outpatient Medications Medication Sig MAGNESIUM GLYCINATE ORAL Take 400 mg by mouth once daily. HERBAL THERAPY CBD Gummie- Take one by mouth daily at bedtime as needed for insomnia albuterol HFA (PROVENTIL HFA, VENTOLIN HFA) 90 mcg/actuation inhaler Inhale 2 Puffs as instructed every 4 hours as needed for wheezing/shortness of breath. cholecalciferol (VITAMIN D3) 1,000 unit tab tablet 2 tabs Orally Once a day TRELEGY ELLIPTA 200-62.5-25 mcg inhalation powder Inhale 1 Puff as instructed once daily. takes in morning traZODone (DESYREL) 50 mg tablet Take 50 mg by mouth daily at bedtime. clonazePAM (KLONOPIN) 0.5 mg tablet Take 0.25 mg by mouth two times a day as needed for anxiety. Patient reports that Klonopin 0.5mg daily prn is prescribed but that when at home she usually takes Klonopin 0.25mg bid prn Paulaisidoro Bernal, [facility] October 17, 2023 7:43 AM gabapentin (NEURONTIN) 300 mg capsule Take 300 mg by mouth daily at bedtime. dicyclomine (BENTYL) 20 mg tablet Take 20 mg by mouth three times a day as needed (GI upset). aspirin, enteric coated (ADULT LOW DOSE ASPIRIN) 81 mg EC tablet Take 1 tablet by mouth two times a day for 21 days. No current facility-administered medications for this visit. ALLERGIES: ALLERGIES Allergen Reactions Levaquin [Levofloxa* GI Upset Sulfa (Sulfonamide * Vomiting PHYSICAL EXAMINATION: Resp 16 Ht 5' 3 (1.60m) Wt 134 lb (60.8kg) BMI 23.74 kg/(m^2). General Appearance: Well appearing, alert, in no acute distress, well-hydrated, well nourished. Skin: Skin color, texture, turgor normal, no suspicious rashes or lesions. Psych: Patient is alert and oriented to person, time and place. Mood and affect are normal. Respiratory: Breathing is symmetric and unlabored Gait: Patient is able to ambulate independently without issue. There is no significant antalgia. She does not require assistive device. Extremities: Right lower extremity examined. Laterally based incision is well-healed without drainage or sign of infection. There is no focal tenderness or palpable mass. Gentle range of motion of the hip is relatively pain-free. Lymphatic: There is no palpable lymphadenopathy Peripheral Pulses: Normal. Neurologic: Bilateral lower extremities were examined. There is 5/5 strength with hip flexion, knee extension, dorsiflexion, EHL, plantar flexion. Sensation intact in all nerve dermatomes IMAGES: No results found for this or any previous visit (from the past 36 hour(s)). Plan ASSESSMENT AND PLAN: 1. S/P total right hip arthroplasty - ICD9: V43.64, ICD10: Z96.641 Functional Plan: Patient is a 68-year-old female presenting follow-up evaluation for right total hip arthroplasty 10/16/2023. Overall she is doing very well. For most part she is pain-free. She is ambulate independently without issues achieved excellent pain relief compared to the preoperative state. I discussed this with her in detail. This point time I will see her back nearly 1 year anniversary of her surgery for repeat evaluation and radiographs less that should arise sooner. All of her questions were answered satisfactorily. She expressed understanding of and agreement with the treatment plan. Medical Decision Making: Problems: Low: Stable chronic illness Risk: Low: Low risk from testing/treatment Medical Decision Making Level: 3 - Low Return in about 8 months (around 10/07/2024). Rubén Jimenes MD documented in this encounter [facility] 02-02-2024 History and physical note Comprehensive PreSurgical History and Physical ? Name: Priscila Cha : 1955 (Age-68 y.o.) Date of Service: Pt seen/examined on 02/02/2024 Procedure Information Date/Time: 02/09/24 0730 Procedure: ROBOTIC CLOSURE OF COLOSTOMY - Please schedule for 3 hours Location: [address] Operating Room Surgeons: Adria Lopez MD Chief Complaint: Colostomy in place ASSESSMENT/PLAN: Patient is considered intermediate risk for this intermediate risk procedure/surgery noted above () with no reducible risk factors. Based on the above evaluation, the benefits of the planned procedure likely exceed the risks. The patient is medically optimized to proceed with the planned procedure without any further cardiopulmonary testing. 1) Colostomy in place Managed per surgery 2) COPD/Asthma Per patient, feels at baseline Using daily inhaler, rescue inhaler rarely Continue inhalers day of surgery Follows with pulm Labs, EKG done 3) ANJANA Not Compliant with CPAP I would consider higher level of care (continuous pulse ox) with this patient due to ANJANA and increased risks 4) HTN Elevated today, advised to monitor and follow up with PCP if persists Compliant with meds. Taking lisinopril-hydrochlorothiazide but forgot to take it this morning Follows with PCP Labs and EKG done BP Readings from Last 3 Encounters: 02/02/24 (!) 160/94 01/05/24 (!) 144/86 01/02/24 (!) 171/90 5) Anxiety Taking klonopin Follows with PCP 6) Former tobacco use Visit Type: Pre-Admission Testing Visit Labs Ordered: YES - PER PAT PROTOCOL Sleep Referral Ordered: NO - ALREADY DIAGNOSED WITH ANJANA AND PATIENT IS NOT COMPLIANT WITH CPAP Total time spent (which include face to face and non face to face encounters) : 45 minutes Toxic drug monitoring/narrow therapeutic index drug monitoring : # Drug name : lisinopril-hctz # Route administered : po # Method of monitoring : bmp PAT Protocol referenced includes: 1. Anesthesia Lab Protocol Orders 2. Perioperative Cardiovascular Risk Assessment 3. Anesthesia Assessment 4. Pain Assessment and Acute Pain Service Consult (if appropriate) 5. Medical Clearance/Consult from Internal Medicine ([facility]) 6. Shower/Wash Order (for designated surgeries) 7. ANJANA Screen and Sleep Clinic Referral (if appropriate) History Of Present Illness: 68 y.o. female who presents with chief complaint mentioned above. Per surgeon's note Surgery Date 11/04/23. Surgical Procedure Partial left colectomy with End Ostomy, (Mock's procedure). Patient has no complaints today. Patient here today following up after recent colonoscopy and to discuss reversal of ostomy. Incision(s) healing well. Patient has returned back to normal activities and regular diet. Ostomy functioning well. Colonoscopy without acute abnormality. Discussed importance of smoking cessation leading up to ostomy reversal. Pt has seen the surgeon and elected for above procedure. Denies Hx of DM, CAD, CHF, a fib, OK, TIA/CVA, DVT/PE Hx problems with anesthesia? -no Motion sickness No missing teeth Nothing loose or broken No partials or dentures Past Medical History: Past Medical History: No date: Anxiety No date: Arthritis 06/20/2022: COPD exacerbation (HCC) No date: Motion sickness 03/04/2019: Pneumonia 06/24/2023: Primary hypertension No date: Sleep apnea Comment: does not use CPAP Past Surgical History: Past Surgical History: 2017: BACK SURGERY; N/A Comment: lower back in middle 01/02/2024: COLONOSCOPY; N/A Comment: Performed by Jefe Arias MD at [facility] ENDOSCOPY No date: COLOSTOMY No date: DILATION AND CURETTAGE OF UTERUS 11/04/2023: EXPLORATORY LAPAROTOMY Comment: colon resection, colostomy No date: HIP ARTHROPLASTY; Right Comment: 2023 1983: MANDIBLE SURGERY; Bilateral Comment: wires on both jaws now No date: SEPTOPLASTY No date: TONSILLECTOMY (HISTORICAL) Medications Prior to Admission: Current Outpatient Medications: acetaminophen (Tylenol) 325 MG tablet, Take by mouth., Disp: , Rfl: albuterol 108 (90 Base) MCG/ACT inhaler, Inhale 2 puffs every 4 hours as needed for shortness of breath or wheezing., Disp: , Rfl: clonazePAM (KlonoPIN) 0.5 MG tablet, Take 0.5 mg by mouth 2 times daily., Disp: , Rfl: erythromycin (Wero-Tab) 250 MG EC tablet, Take 4 tablets (1000 mg) by mouth at 3:00pm, 4:00pm, and bedtime on the day prior to surgery., Disp: 12 tablet, Rfl: 0 Raccawwovir-Kxhxdhqep-Hxihpb (Trelegy Ellipta) 100-62.5-25 MCG/ACT aerosol powder , Inhale 1 puff daily., Disp: , Rfl: gabapentin (Neurontin) 300 MG capsule, Take 300 mg by mouth 2 times daily as needed., Disp: , Rfl: lisinopril-hydroCHLOROthiazide 20-25 MG tablet, Take 1 tablet by mouth daily., Disp: , Rfl: neomycin (Mycifradin) 500 MG tablet, Take two tablets (1000 mg) by mouth at 3:00pm, 4:00pm and at bed time on the day prior to surgery, Disp: 6 tablet, Rfl: 0 senna-docusate sodium (Senokot-S) 8.6-50 MG tablet, Take 2 tablets by mouth daily., Disp: 60 tablet, Rfl: 11 traZODone (Desyrel) 50 MG tablet, Take 50 mg by mouth every evening., Disp: , Rfl: CHRONIC NARCOTIC USE: No Allergies: Levofloxacin and Sulfa antibiotics If patient has opioid allergy, is it okay to take Acetaminophen: N/A Social History: TOBACCO: reports that she quit smoking about 2 weeks ago. Her smoking use included cigarettes. She has never used smokeless tobacco. ETOH: reports that she does not currently use alcohol. Social History Substance and Sexual Activity Drug Use Yes Types: Marijuana Comment: Medical Marijuana: uses gummies Family History: Family History Problem Relation Name Age of Onset No Known Problems Other No Known Problems Brother No Known Problems Maternal Grandfather No Known Problems Paternal Grandfather No Known Problems Sister No Known Problems Maternal Grandmother No Known Problems Paternal Grandmother REVIEW OF SYSTEMS: Review of Systems Constitutional: Negative for chills and fever. Respiratory: Negative for shortness of breath. Cardiovascular: Negative for chest pain. Pertinent positives as noted in the HPI. Physical Exam: Physical Exam Constitutional: General: She is awake. She is not in acute distress. Appearance: Normal appearance. HENT: Head: Normocephalic and atraumatic. Eyes: Extraocular Movements: Extraocular movements intact. Conjunctiva/sclera: Conjunctivae normal. Cardiovascular: Rate and Rhythm: Normal rate and regular rhythm. Heart sounds: Normal heart sounds. Pulmonary: Effort: Pulmonary effort is normal. Breath sounds: Normal breath sounds. Abdominal: Palpations: Abdomen is soft. Musculoskeletal: General: Normal range of motion. Cervical back: Normal range of motion. Skin: General: Skin is warm and dry. Neurological: General: No focal deficit present. Mental Status: She is alert and oriented to person, place, and time. Psychiatric: Mood and Affect: Mood normal. Behavior: Behavior normal. Vitals: Vitals Value Taken Time BP 160/94 02/02/24 1114 Temp 36.9 C (98.4 F) 02/02/24 1101 Pulse 89 02/02/24 1101 Resp 15 02/02/24 1101 SpO2 97 % 02/02/24 1101 BP (!) 160/94 Comment: patient hjas not taken bp med today Pulse 89 Temp 36.9 C (98.4 F) (Temporal) Resp 15 Ht 1.575 m (5' 2 ) Wt 58.1 kg (128 lb) LMP (LMP Unknown) SpO2 97% BMI 23.41 kg/m Labs: Lab Results Component Value Date WBC 7.7 02/02/2024 HGB 11.8 02/02/2024 HCT 36.5 02/02/2024 MCV 77.0 02/02/2024 PLT 408 02/02/2024 Lab Results Component Value Date NA 135 02/02/2024 K 4.9 02/02/2024 CL 101 02/02/2024 CO2 26 02/02/2024 BUN 13 02/02/2024 CREATININE 0.68 02/02/2024 GLUCOSE 104 (H) 02/02/2024 CALCIUM 10.0 02/02/2024 PROT 5.1 (L) 11/10/2023 ALKPHOS 74 11/10/2023 AST 28 11/10/2023 ALT 11 11/10/2023 EGFR >90.0 02/02/2024 Yoel's Simple Cardiac Risk Index: YOEL'S SIMPLE CARDIAC RISK SCORE: 0 Interpretation: 0 Points Class I 0.5% 1 Point Class II 1.3% 2 Points Class III 3.6% 3+ Points Class IV 9.1% METS >4 METS (Able to climb a flight of stairs with no chest pain or shortness of breath): Yes Walk indoors, such as around the house (1.75 METs), Do light work around the house, such as dusting or washing dishes (2.70 METs), Take care of self, that is eating, dressing, bathing, using the toilet (2.75 METs), Do moderate work around the house such as vacuuming, sweeping floors, or carrying in groceries (3.50 METs), Do yardwork, such as raking leaves, weeding,or pushing a power mower (4.50 METs), Climb a flight of stairs or walk up a hill (5.50 METs) PAT Pain Score: 0 Postop Pain Management Plan (Pain consult ordered?): Pain consult not indicated at this time ? EKG: Done Encounter Date: 11/03/23 ECG 12 lead Result Value Heart Rate 118 QRSD Interval 59 QT Interval 320 QTC Interval 449 P [place] 76 QRS [place] 38 T Wave [place] 57 NM Interval 148 Impression Sinus tachycardia Probable left atrial enlargement No ST segment elevations No significant changes from previous ECG Electronically Signed On 11-04-2023 07:39:42 EST by Dat [facility] ECHO and EF: No components found for: LVEF , LVEFMODE 06/19/22 SUMMARY: 1. Left ventricle: The cavity size is normal. Wall thickness is normal. Systolic function is hyperdynamic by the biplane method of disks. The estimated ejection fraction is 71%. There are no regional wall motion abnormalities. Left ventricular diastolic function parameters are normal. 2. Right ventricle: The cavity size is normal. Systolic function is normal. Right ventricular systolic pressure is within the normal range. 3. No significant valve disease. Electronically signed by: SATINDER Ventura Date: 02/02/2024 at 1:26 PM [facility] 02-02-2024 History and physical note Comprehensive PreSurgical History and Physical ? Name: Priscila Cha : 1955 (Age-68 y.o.) Date of Service: Pt seen/examined on 02/02/2024 Procedure Information Date/Time: 02/09/24 0730 Procedure: ROBOTIC CLOSURE OF COLOSTOMY - Please schedule for 3 hours Location: [address] Operating Room Surgeons: Adria Lopez MD Chief Complaint: Colostomy in place ASSESSMENT/PLAN: Patient is considered intermediate risk for this intermediate risk procedure/surgery noted above () with no reducible risk factors. Based on the above evaluation, the benefits of the planned procedure likely exceed the risks. The patient is medically optimized to proceed with the planned procedure without any further cardiopulmonary testing. 1) Colostomy in place Managed per surgery 2) COPD/Asthma Per patient, feels at baseline Using daily inhaler, rescue inhaler rarely Continue inhalers day of surgery Follows with pulm Labs, EKG done 3) ANJANA Not Compliant with CPAP I would consider higher level of care (continuous pulse ox) with this patient due to ANJANA and increased risks 4) HTN Elevated today, advised to monitor and follow up with PCP if persists Compliant with meds. Taking lisinopril-hydrochlorothiazide but forgot to take it this morning Follows with PCP Labs and EKG done BP Readings from Last 3 Encounters: 02/02/24 (!) 160/94 01/05/24 (!) 144/86 01/02/24 (!) 171/90 5) Anxiety Taking klonopin Follows with PCP 6) Former tobacco use Visit Type: Pre-Admission Testing Visit Labs Ordered: YES - PER PAT PROTOCOL Sleep Referral Ordered: NO - ALREADY DIAGNOSED WITH ANJANA AND PATIENT IS NOT COMPLIANT WITH CPAP Total time spent (which include face to face and non face to face encounters) : 45 minutes Toxic drug monitoring/narrow therapeutic index drug monitoring : # Drug name : lisinopril-hctz # Route administered : po # Method of monitoring : bmp PAT Protocol referenced includes: 1. Anesthesia Lab Protocol Orders 2. Perioperative Cardiovascular Risk Assessment 3. Anesthesia Assessment 4. Pain Assessment and Acute Pain Service Consult (if appropriate) 5. Medical Clearance/Consult from Internal Medicine ([facility]) 6. Shower/Wash Order (for designated surgeries) 7. ANJANA Screen and Sleep Clinic Referral (if appropriate) History Of Present Illness: 68 y.o. female who presents with chief complaint mentioned above. Per surgeon's note Surgery Date 11/04/23. Surgical Procedure Partial left colectomy with End Ostomy, (Mock's procedure). Patient has no complaints today. Patient here today following up after recent colonoscopy and to discuss reversal of ostomy. Incision(s) healing well. Patient has returned back to normal activities and regular diet. Ostomy functioning well. Colonoscopy without acute abnormality. Discussed importance of smoking cessation leading up to ostomy reversal. Pt has seen the surgeon and elected for above procedure. Denies Hx of DM, CAD, CHF, a fib, OK, TIA/CVA, DVT/PE Hx problems with anesthesia? -no Motion sickness No missing teeth Nothing loose or broken No partials or dentures Past Medical History: Past Medical History: No date: Anxiety No date: Arthritis 06/20/2022: COPD exacerbation (HCC) No date: Motion sickness 03/04/2019: Pneumonia 06/24/2023: Primary hypertension No date: Sleep apnea Comment: does not use CPAP Past Surgical History: Past Surgical History: 2017: BACK SURGERY; N/A Comment: lower back in middle 01/02/2024: COLONOSCOPY; N/A Comment: Performed by Jefe Arias MD at [facility] ENDOSCOPY No date: COLOSTOMY No date: DILATION AND CURETTAGE OF UTERUS 11/04/2023: EXPLORATORY LAPAROTOMY Comment: colon resection, colostomy No date: HIP ARTHROPLASTY; Right Comment: 2023 1982: MANDIBLE SURGERY; Bilateral Comment: wires on both jaws now No date: SEPTOPLASTY No date: TONSILLECTOMY (HISTORICAL) Medications Prior to Admission: Current Outpatient Medications: acetaminophen (Tylenol) 325 MG tablet, Take by mouth., Disp: , Rfl: albuterol 108 (90 Base) MCG/ACT inhaler, Inhale 2 puffs every 4 hours as needed for shortness of breath or wheezing., Disp: , Rfl: clonazePAM (KlonoPIN) 0.5 MG tablet, Take 0.5 mg by mouth 2 times daily., Disp: , Rfl: erythromycin (Wero-Tab) 250 MG EC tablet, Take 4 tablets (1000 mg) by mouth at 3:00pm, 4:00pm, and bedtime on the day prior to surgery., Disp: 12 tablet, Rfl: 0 Utfsgquzxjf-Qpdvfnvin-Ghyfju (Trelegy Ellipta) 100-62.5-25 MCG/ACT aerosol powder , Inhale 1 puff daily., Disp: , Rfl: gabapentin (Neurontin) 300 MG capsule, Take 300 mg by mouth 2 times daily as needed., Disp: , Rfl: lisinopril-hydroCHLOROthiazide 20-25 MG tablet, Take 1 tablet by mouth daily., Disp: , Rfl: neomycin (Mycifradin) 500 MG tablet, Take two tablets (1000 mg) by mouth at 3:00pm, 4:00pm and at bed time on the day prior to surgery, Disp: 6 tablet, Rfl: 0 senna-docusate sodium (Senokot-S) 8.6-50 MG tablet, Take 2 tablets by mouth daily., Disp: 60 tablet, Rfl: 11 traZODone (Desyrel) 50 MG tablet, Take 50 mg by mouth every evening., Disp: , Rfl: CHRONIC NARCOTIC USE: No Allergies: Levofloxacin and Sulfa antibiotics If patient has opioid allergy, is it okay to take Acetaminophen: N/A Social History: TOBACCO: reports that she quit smoking about 2 weeks ago. Her smoking use included cigarettes. She has never used smokeless tobacco. ETOH: reports that she does not currently use alcohol. Social History Substance and Sexual Activity Drug Use Yes Types: Marijuana Comment: Medical Marijuana: uses gummies Family History: Family History Problem Relation Name Age of Onset No Known Problems Other No Known Problems Brother No Known Problems Maternal Grandfather No Known Problems Paternal Grandfather No Known Problems Sister No Known Problems Maternal Grandmother No Known Problems Paternal Grandmother REVIEW OF SYSTEMS: Review of Systems Constitutional: Negative for chills and fever. Respiratory: Negative for shortness of breath. Cardiovascular: Negative for chest pain. Pertinent positives as noted in the HPI. Physical Exam: Physical Exam Constitutional: General: She is awake. She is not in acute distress. Appearance: Normal appearance. HENT: Head: Normocephalic and atraumatic. Eyes: Extraocular Movements: Extraocular movements intact. Conjunctiva/sclera: Conjunctivae normal. Cardiovascular: Rate and Rhythm: Normal rate and regular rhythm. Heart sounds: Normal heart sounds. Pulmonary: Effort: Pulmonary effort is normal. Breath sounds: Normal breath sounds. Abdominal: Palpations: Abdomen is soft. Musculoskeletal: General: Normal range of motion. Cervical back: Normal range of motion. Skin: General: Skin is warm and dry. Neurological: General: No focal deficit present. Mental Status: She is alert and oriented to person, place, and time. Psychiatric: Mood and Affect: Mood normal. Behavior: Behavior normal. Vitals: Vitals Value Taken Time BP 160/94 02/02/24 1114 Temp 36.9 C (98.4 F) 02/02/24 1101 Pulse 89 02/02/24 1101 Resp 15 02/02/24 1101 SpO2 97 % 02/02/24 1101 BP (!) 160/94 Comment: patient hjas not taken bp med today Pulse 89 Temp 36.9 C (98.4 F) (Temporal) Resp 15 Ht 1.575 m (5' 2 ) Wt 58.1 kg (128 lb) LMP (LMP Unknown) SpO2 97% BMI 23.41 kg/m Labs: Lab Results Component Value Date WBC 7.7 02/02/2024 HGB 11.8 02/02/2024 HCT 36.5 02/02/2024 MCV 77.0 02/02/2024 PLT 408 02/02/2024 Lab Results Component Value Date NA 135 02/02/2024 K 4.9 02/02/2024 CL 101 02/02/2024 CO2 26 02/02/2024 BUN 13 02/02/2024 CREATININE 0.68 02/02/2024 GLUCOSE 104 (H) 02/02/2024 CALCIUM 10.0 02/02/2024 PROT 5.1 (L) 11/10/2023 ALKPHOS 74 11/10/2023 AST 28 11/10/2023 ALT 11 11/10/2023 EGFR >90.0 02/02/2024 Yoel's Simple Cardiac Risk Index: YOEL'S SIMPLE CARDIAC RISK SCORE: 0 Interpretation: 0 Points Class I 0.5% 1 Point Class II 1.3% 2 Points Class III 3.6% 3+ Points Class IV 9.1% METS >4 METS (Able to climb a flight of stairs with no chest pain or shortness of breath): Yes Walk indoors, such as around the house (1.75 METs), Do light work around the house, such as dusting or washing dishes (2.70 METs), Take care of self, that is eating, dressing, bathing, using the toilet (2.75 METs), Do moderate work around the house such as vacuuming, sweeping floors, or carrying in groceries (3.50 METs), Do yardwork, such as raking leaves, weeding,or pushing a power mower (4.50 METs), Climb a flight of stairs or walk up a hill (5.50 METs) PAT Pain Score: 0 Postop Pain Management Plan (Pain consult ordered?): Pain consult not indicated at this time ? EKG: Done Encounter Date: 11/03/23 ECG 12 lead Result Value Heart Rate 118 QRSD Interval 59 QT Interval 320 QTC Interval 449 P [place] 76 QRS [place] 38 T Wave [place] 57 NM Interval 148 Impression Sinus tachycardia Probable left atrial enlargement No ST segment elevations No significant changes from previous ECG Electronically Signed On 11-04-2023 07:39:42 EST by [facility] ECHO and EF: No components found for: LVEF , LVEFMODE 06/19/22 SUMMARY: 1. Left ventricle: The cavity size is normal. Wall thickness is normal. Systolic function is hyperdynamic by the biplane method of disks. The estimated ejection fraction is 71%. There are no regional wall motion abnormalities. Left ventricular diastolic function parameters are normal. 2. Right ventricle: The cavity size is normal. Systolic function is normal. Right ventricular systolic pressure is within the normal range. 3. No significant valve disease. Electronically signed by: SATINDER Ventura Date: 02/02/2024 at 1:26 PM documented in this encounter [facility] 02-02-2024 Note [facility] 02-02-2024 Note [facility] 01-09-2024 Note HNO ID: [id number] Author: QUINTEN DÍAZ PT Service: ? Author Type: Physical Therapist Type: Progress Notes Filed: 01/09/2024 07:06 Note Text: 01/09/2024 [facility] PHYSICAL THERAPY DISCONTINUANCE OF CARE Plan of Care Period: Start of Care Date: 10/09/23 Last Visit Date: 10/09/2023 Therapy Program: Patient did not return for follow up care as planned. Please refer to last visit note for interventions provided for this episode of care. Assessment: Unable to formally assess goal achievement. Reason for Discontinuation of Care: Patient has not returned to therapy or scheduled additional follow-up appointments. Quinten Díaz PT [facility] 01-05-2024 Telephone encounter Note Preston a Nurse for [facility] called in to let the physician know that the patient declined to have a nurse visit this week, since she had already seen her surgeon. Patient did not have a nurse home visit this week. Please be advised. Preston can be reached at [phone]. [facility] 01-05-2024 Miscellaneous Notes Preston a Nurse for [facility] called in to let the physician know that the patient declined to have a nurse visit this week, since she had already seen her surgeon. Patient did not have a nurse home visit this week. Please be advised. Preston can be reached at [phone]. documented in this encounter [facility] 01-05-2024 History of Present illness Narrative General Surgery History and Physical HPI: Surgery Date 11/04/23. Surgical Procedure Partial left colectomy with End Ostomy, (Mock's procedure). Patient has no complaints today. Patient here today following up after recent colonoscopy and to discuss reversal of ostomy. Incision(s) healing well. Patient has returned back to normal activities and regular diet. Ostomy functioning well. Colonoscopy without acute abnormality. Discussed importance of smoking cessation leading up to ostomy reversal. In addition to the time noted above, additional 5 minutes was spent discussing smoking cessation. The patient is an active tobacco user. They were advised to quit and the impact of smoking (both medical and surgical) was discussed. Patient was encouraged to follow-up with a primary care provider for further management. Thoroughly reviewed the patient's medical history, family history, social history and review of systems with the patient today in the office. Please see medical record for pertinent positives. Impression /Treatment: Ronni 11/04/23 and will plan on end colostomy closure. She is currently active tobacco user smoking 10 cigarettes a day self-reported. Long discussion with her the importance of stopping smoking before any surgical intervention. Will schedule her out in 4 to 5 weeks for surgery assuming she stop smoking today. Mechanical and atbx bowel prep. Patient counseled on risks, benefits, and alternatives of treatment plan at length while in the office today. Patient states an understanding and willingness to proceed with plan. Past Medical History: Diagnosis Date Arthritis COPD exacerbation (HCC) 06/20/2022 Pneumonia 03/04/2019 Primary hypertension 06/24/2023 Sleep apnea does not use CPAP Past Surgical History: Procedure Laterality Date BACK SURGERY N/A 2016 lower back in middle COLONOSCOPY N/A 01/02/2024 Performed by Jefe Arias MD at [facility] ENDOSCOPY COLOSTOMY EXPLORATORY LAPAROTOMY 11/04/2023 colon resection, colostomy MANDIBLE SURGERY Bilateral 1983 wires on both jaws now TONSILLECTOMY (HISTORICAL) Current Outpatient Medications Medication Sig Dispense Refill acetaminophen (Tylenol) 325 MG tablet Take by mouth. albuterol 108 (90 Base) MCG/ACT inhaler Inhale 2 puffs every 4 hours as needed for shortness of breath or wheezing. clonazePAM (KlonoPIN) 0.5 MG tablet Take 0.5 mg by mouth 2 times daily. Dhtmilyfxsk-Yfijtenuc-Kuwces (Trelegy Ellipta) 100-62.5-25 MCG/ACT aerosol powder Inhale 1 puff daily. gabapentin (Neurontin) 300 MG capsule Take 300 mg by mouth 2 times daily as needed. lisinopril-hydroCHLOROthiazide 20-25 MG tablet Take 1 tablet by mouth daily. senna-docusate sodium (Senokot-S) 8.6-50 MG tablet Take 2 tablets by mouth daily. 60 tablet 11 traMADol (Ultram) 50 MG tablet every 12 hours. traZODone (Desyrel) 50 MG tablet Take 50 mg by mouth every evening. No current facility-administered medications for this visit. Allergies Allergen Reactions Codeine Levofloxacin Other reaction(s): GI Upset, U Sulfa Antibiotics Other reaction(s): Vomiting Review of Systems: Review of Systems Constitutional: Negative for appetite change, chills, fatigue, fever and unexpected weight change. HENT: Negative for hearing loss, nosebleeds, sneezing, sore throat, trouble swallowing and voice change. Respiratory: Negative for cough, shortness of breath and wheezing. Cardiovascular: Negative for chest pain and palpitations. Gastrointestinal: Negative for abdominal pain, constipation, diarrhea, nausea, rectal pain and vomiting. Endocrine: Negative for polydipsia and polyuria. Genitourinary: Negative for difficulty urinating, dysuria, frequency, hematuria and urgency. Skin: Negative for rash and wound. Allergic/Immunologic: Negative for immunocompromised state. Neurological: Negative for seizures and syncope. Hematological: Negative for adenopathy. Does not bruise/bleed easily. Psychiatric/Behavioral: Negative for agitation and confusion. Physical Exam: BP (!) 144/86 Pulse 78 Ht 5' 2 (1.575 m) Wt 132 lb (59.9 kg) LMP (LMP Unknown) BMI 24.14 kg/m Physical Exam Constitutional: Appearance: Normal appearance. HENT: Head: Normocephalic. Eyes: Pupils: Pupils are equal, round, and reactive to light. Cardiovascular: Rate and Rhythm: Normal rate and regular rhythm. Pulses: Normal pulses. Pulmonary: Effort: Pulmonary effort is normal. No respiratory distress. Breath sounds: Normal breath sounds. No rales. Abdominal: General: Bowel sounds are normal. Palpations: Abdomen is soft. There is no mass. Tenderness: There is no abdominal tenderness. Comments: LUQ ostomy with healthy appearing stoma and stool within the bag. Well healed midline incision site. Musculoskeletal: General: No swelling or tenderness. Cervical back: Normal range of motion. No tenderness. Lymphadenopathy: Cervical: No cervical adenopathy. Skin: General: Skin is warm and dry. Neurological: Mental Status: She is alert and oriented to person, place, and time. Psychiatric: Behavior: Behavior normal. No orders of the defined types were placed in this encounter. Follow Up: No follow-ups on file. Adria Lopez MD RB 01/05/2024 documented in this encounter [facility] 01-02-2024 Note Formatting of this n ote might be different from the original. Pt and family verbalized understanding of recovery instructions, pt verbalized a readiness to be discharged home. Pt discharged home via wheelchair accompanied by RN/volunteer. Pt has had all their belongings returned to them at discharge [facility] 01-02-2024 Note Formatting of this n ote might be different from the original. Pt and family verbalized understanding of recovery instructions, pt verbalized a readiness to be discharged home. Pt discharged home via wheelchair accompanied by RN/volunteer. Pt has had all their belongings returned to them at discharge [facility] 01-02-2024 Miscellaneous Notes Pt and family verbalized understanding of recovery instructions, pt verbalized a readiness to be discharged home. Pt discharged home via wheelchair accompanied by RN/volunteer. Pt has had all their belongings returned to them at discharge Pt recieved from ENDOSCOPY to phase 2 via cart with ELECTRONIC ENGRAVER in attendance, pt has spontaneous respirations,pt place on monitor with alarms on, [facility] Name: Priscila Cha Procedure Date: 01/02/2024 7:47 AM Gender: Female Date of : 1955 Age: 68 Admit Type: Outpatient Note Status: Finalized Endoscopist: Jefe Arias MD, Procedure: Colonoscopy Indications: Follow-up of diverticulitis, Colostomy complication Findings: The entire examined colon appeared normal. Many medium-mouthed and small-mouthed diverticula were found in the descending colon and surgical stoma. The perianal and digital rectal examinations were normal. Impression: - The entire examined colon is normal. - Diverticulosis in the descending colon and at the surgical stoma. - No specimens collected. Recommendation: - Patient has a contact number available for emergencies. The signs and symptoms of potential delayed complications were discussed with the patient. Return to normal activities tomorrow. Written discharge instructions were provided to the patient. - Continue present medications. - Resume previous diet indefinitely. - Repeat colonoscopy for screening purposes. - Proceed with surgical planning for colostomy reversal with Dr. Lopez Referring MD: Leonid Dee Jr, MD Medicines: Propofol per Anesthesia Procedure: Pre-Anesthesia Assessment: - Prior to the procedure, a History and Physical was performed, and patient medications and allergies were reviewed. The patient's tolerance of previous anesthesia was also reviewed. The risks and benefits of the procedure and the sedation options and risks were discussed with the patient. All questions were answered, and informed consent was obtained. Prior Anticoagulants: The patient has taken no anticoagulant or antiplatelet agents. ASA Grade Assessment: II - A patient with mild systemic disease. After reviewing the risks and benefits, the patient was deemed in satisfactory condition to undergo the procedure. - The anesthesia plan was to use monitored anesthesia care (MAC). After I obtained informed consent, the scope was passed under direct vision. Throughout the procedure, the patient's blood pressure, pulse, and oxygen saturations were monitored continuously. The Colonoscope was introduced through the anus and advanced to the cecum, identified by appendiceal orifice and ileocecal valve. The colonoscopy was performed without difficulty. The patient tolerated the procedure well. The quality of the bowel preparation was good. The ileocecal valve, appendiceal orifice, and rectum were photographed. Complications: No immediate complications. Procedure Code(s): --- Professional --- 04542, Colonoscopy, flexible; diagnostic, including collection of specimen(s) by brushing or washing, when performed (separate procedure) --- Technical --- 61255, Colonoscopy, flexible; diagnostic, including collection of specimen(s) by brushing or washing, when performed (separate procedure) Diagnosis Code(s): --- Professional --- K57.32, Diverticulitis of large intestine without perforation or abscess without bleeding K94.00, Colostomy complication, unspecified K57.30, Diverticulosis of large intestine without perforation or abscess without bleeding --- Technical --- K57.32, Diverticulitis of large intestine without perforation or abscess without bleeding K94.00, Colostomy complication, unspecified K57.30, Diverticulosis of large intestine without perforation or abscess without bleeding CPT copyright 2021 [employer]. All rights reserved. The codes documented in this report are preliminary and upon occupational therapy asst review may be revised to meet current compliance requirements. Attending Participation: I personally performed the entire procedure. Jefe Arias MD 01/02/2024 11:19:31 AM Number of Addenda: 0 Note Initiated On: 01/02/2024 7:47 AM documented in this encounter [facility] 01-02-2024 Note Formatting of this n ote might be different from the original. Pt recieved from ENDOSCOPY to phase 2 via cart with ELECTRONIC ENGRAVER in attendance, pt has spontaneous respirations,pt place on monitor with alarms on, will continue to monitor [facility] 01-02-2024 Note Formatting of this n ote might be different from the original. Pt recieved from ENDOSCOPY to phase 2 via cart with ELECTRONIC ENGRAVER in attendance, pt has spontaneous respirations,pt place on monitor with alarms on, will continue to monitor [facility] 01-02-2024 History and physical note Images from the original note were not included. Endoscopy History and Physical HPI: Priscila Cha is a 68 y.o. female who presents with need for diagnostic colonoscopy s/p complicated diverticulitis resulting in Mock procedure with Dr. Lopez in October of this year, here for colonoscopy. She has had this before; however, it was before her Mock procedure, they found diverticulosis but reportedly no polyps. PMHx: Past Medical History: Diagnosis Date Arthritis COPD exacerbation (HCC) 06/20/2022 Pneumonia 03/04/2019 Primary hypertension 06/24/2023 PSHx: Past Surgical History: Procedure Laterality Date BACK SURGERY N/A 2017 lower back in middle EXPLORATORY LAPAROTOMY 11/04/2023 colon resection, colostomy MANDIBLE SURGERY Bilateral 1983 wires on both jaws now TONSILLECTOMY (HISTORICAL) PFMHx: Family History Problem Relation Name Age of Onset No Known Problems Other No Known Problems Brother No Known Problems Maternal Grandfather No Known Problems Paternal Grandfather No Known Problems Sister No Known Problems Maternal Grandmother No Known Problems Paternal Grandmother ALL: Allergies Allergen Reactions Codeine Levofloxacin Other reaction(s): GI Upset, U Sulfa Antibiotics Other reaction(s): Vomiting MEDS: @MEDCMED@ SOCIAL Hx: Social History Socioeconomic History Marital status: Spouse name: Not on file Number of children: Not on file Years of education: Not on file Highest education level: Not on file Occupational History Not on file Tobacco Use Smoking status: Every Day Packs/day: .25 Types: Cigarettes Smokeless tobacco: Current Tobacco comments: Quit smoking: trying to quit Substance and Sexual Activity Alcohol use: Not Currently Drug use: Yes Types: Marijuana Comment: Medical Marijuana and gummies Sexual activity: Defer Other Topics Concern Not on file Social History Narrative Not on file Social Determinants of Health Financial Resource Strain: Not on file Food Insecurity: Not on file Transportation Needs: No Transportation Needs (11/04/2023) PRAPARE - Transportation Lack of Transportation (Medical): No Lack of Transportation (Non-Medical): No Physical Activity: Not on file Stress: Not on file Social Connections: Not on file Intimate Partner Violence: Not At Risk (11/04/2023) Humiliation, Afraid, Rape, and Kick questionnaire Fear of Current or Ex-Partner: No Emotionally Abused: No Physically Abused: No Sexually Abused: No Housing Stability: Low Risk (11/04/2023) Housing Stability Vital Sign Unable to Pay for Housing in the Last Year: No Number of Places Lived in the Last Year: 1 Unstable Housing in the Last Year: No Review of Systems: I personally reviewed the patient intake form with the patient. The ROS is negative except for what is listed in HPI. Physical Examination: LMP (LMP Unknown) She stands @FLOWAMB(11)@ tall with a weight of @FLOWAMB(14)@ , resulting in a BMI of There is no height or weight on file to calculate BMI.. General: The patient is awake, alert, and oriented, and is in no apparent distress. Normal affect. Head and Neck: Normocephalic and atraumatic. Normal ROM Cardiac: Regular rate and rhythm, patient on monitor Respiratory: No respiratory distress. Equal chest rise. Good inspiratory effort. Abdomen: soft, non-tender, non-distended, no masses or organomegaly. Ostomy in place Extremities: Ambulatory without assistance. Neurological: Intact sensation in 4 extremities, no focal deficits notes. Skin: No rashes or lesions noted. Warm and dry. Rectal: Not done. Hernia: no hernias found on exam Assessment and Plan Patient Active Problem List Diagnosis Date Noted Postoperative examination 12/20/2023 Severe malnutrition (CMS/HCC) ([facility]) 11/05/2023 Abdominal pain, generalized 11/04/2023 LLQ abdominal pain 09/27/2023 Intra-abdominal abscess (CMS/HCC) ([facility]) 08/02/2023 Antibiotic drug intolerance 08/02/2023 Sigmoid diverticulitis 07/19/2023 Moderate malnutrition (CMS/HCC) ([facility]) 07/04/2023 Chronic pain 06/24/2023 Multilevel degenerative disc disease 06/24/2023 Spondylolisthesis at L5-S1 level 06/24/2023 Primary hypertension 06/24/2023 Diverticulitis 06/23/2023 COPD exacerbation ([facility]) 06/20/2022 Community acquired pneumonia 01/13/2022 Spondylolisthesis of lumbar region 07/06/2017 Spondylolisthesis at L4-L5 level 07/06/2017 Chest pain 06/19/2022 Dizziness 10/15/2021 Pneumonia 03/04/2019 Plan: 68 y.o. female who presents with need for diagnostic colonoscopy s/p Mock procedure 10/2023 for complicated diverticulitis Will perform colonoscopy today Patient counseled on risks, benefits, and alternatives of treatment plan at length. Patient states an understanding and willingness to proceed with plan. [employer] Work Phone: 01-02-2024 Note [facility] 01-02-2024 History and physical note Images from the original note were not included. Endoscopy History and Physical HPI: Priscila Cha is a 68 y.o. female who presents with need for diagnostic colonoscopy s/p complicated diverticulitis resulting in Mock procedure with Dr. Lopez in October of this year, here for colonoscopy. She has had this before; however, it was before her Mock procedure, they found diverticulosis but reportedly no polyps. PMHx: Past Medical History: Diagnosis Date Arthritis COPD exacerbation (HCC) 06/20/2022 Pneumonia 03/04/2019 Primary hypertension 06/24/2023 PSHx: Past Surgical History: Procedure Laterality Date BACK SURGERY N/A 2017 lower back in middle EXPLORATORY LAPAROTOMY 11/04/2023 colon resection, colostomy MANDIBLE SURGERY Bilateral 1983 wires on both jaws now TONSILLECTOMY (HISTORICAL) PFMHx: Family History Problem Relation Name Age of Onset No Known Problems Other No Known Problems Brother No Known Problems Maternal Grandfather No Known Problems Paternal Grandfather No Known Problems Sister No Known Problems Maternal Grandmother No Known Problems Paternal Grandmother ALL: Allergies Allergen Reactions Codeine Levofloxacin Other reaction(s): GI Upset, U Sulfa Antibiotics Other reaction(s): Vomiting MEDS: @MEDCMED@ SOCIAL Hx: Social History Socioeconomic History Marital status: Spouse name: Not on file Number of children: Not on file Years of education: Not on file Highest education level: Not on file Occupational History Not on file Tobacco Use Smoking status: Every Day Packs/day: .25 Types: Cigarettes Smokeless tobacco: Current Tobacco comments: Quit smoking: trying to quit Substance and Sexual Activity Alcohol use: Not Currently Drug use: Yes Types: Marijuana Comment: Medical Marijuana and gummies Sexual activity: Defer Other Topics Concern Not on file Social History Narrative Not on file Social Determinants of Health Financial Resource Strain: Not on file Food Insecurity: Not on file Transportation Needs: No Transportation Needs (11/04/2023) PRAPARE - Transportation Lack of Transportation (Medical): No Lack of Transportation (Non-Medical): No Physical Activity: Not on file Stress: Not on file Social Connections: Not on file Intimate Partner Violence: Not At Risk (11/04/2023) Humiliation, Afraid, Rape, and Kick questionnaire Fear of Current or Ex-Partner: No Emotionally Abused: No Physically Abused: No Sexually Abused: No Housing Stability: Low Risk (11/04/2023) Housing Stability Vital Sign Unable to Pay for Housing in the Last Year: No Number of Places Lived in the Last Year: 1 Unstable Housing in the Last Year: No Review of Systems: I personally reviewed the patient intake form with the patient. The ROS is negative except for what is listed in HPI. Physical Examination: LMP (LMP Unknown) She stands @FLOWAMB(11)@ tall with a weight of @FLOWAMB(14)@ , resulting in a BMI of There is no height or weight on file to calculate BMI.. General: The patient is awake, alert, and oriented, and is in no apparent distress. Normal affect. Head and Neck: Normocephalic and atraumatic. Normal ROM Cardiac: Regular rate and rhythm, patient on monitor Respiratory: No respiratory distress. Equal chest rise. Good inspiratory effort. Abdomen: soft, non-tender, non-distended, no masses or organomegaly. Ostomy in place Extremities: Ambulatory without assistance. Neurological: Intact sensation in 4 extremities, no focal deficits notes. Skin: No rashes or lesions noted. Warm and dry. Rectal: Not done. Hernia: no hernias found on exam Assessment and Plan Patient Active Problem List Diagnosis Date Noted Postoperative examination 12/20/2023 Severe malnutrition (CMS/HCC) (HCC) 11/05/2023 Abdominal pain, generalized 11/04/2023 LLQ abdominal pain 09/27/2023 Intra-abdominal abscess (CMS/HCC) (HCC) 08/02/2023 Antibiotic drug intolerance 08/02/2023 Sigmoid diverticulitis 07/19/2023 Moderate malnutrition (CMS/HCC) (HCC) 07/04/2023 Chronic pain 06/24/2023 Multilevel degenerative disc disease 06/24/2023 Spondylolisthesis at L5-S1 level 06/24/2023 Primary hypertension 06/24/2023 Diverticulitis 06/23/2023 COPD exacerbation (HCC) 06/20/2022 Community acquired pneumonia 01/13/2022 Spondylolisthesis of lumbar region 07/06/2017 Spondylolisthesis at L4-L5 level 07/06/2017 Chest pain 06/19/2022 Dizziness 10/15/2021 Pneumonia 03/04/2019 Plan: 68 y.o. female who presents with need for diagnostic colonoscopy s/p Mock procedure 10/2023 for complicated diverticulitis Will perform colonoscopy today Patient counseled on risks, benefits, and alternatives of treatment plan at length. Patient states an understanding and willingness to proceed with plan. documented in this encounter [facility] 01-02-2024 Note Formatting of this n ote might be different from the original. [facility] Name: Priscila Cha Procedure Date: 01/02/2024 7:47 AM Gender: Female Date of : 1955 Age: 68 Admit Type: Outpatient Note Status: Finalized Endoscopist: Jefe Arias MD, Procedure: Colonoscopy Indications: Follow-up of diverticulitis, Colostomy complication Findings: The entire examined colon appeared normal. Many medium-mouthed and small-mouthed diverticula were found in the descending colon and surgical stoma. The perianal and digital rectal examinations were normal. Impression: - The entire examined colon is normal. - Diverticulosis in the descending colon and at the surgical stoma. - No specimens collected. Recommendation: - Patient has a contact number available for emergencies. The signs and symptoms of potential delayed complications were discussed with the patient. Return to normal activities tomorrow. Written discharge instructions were provided to the patient. - Continue present medications. - Resume previous diet indefinitely. - Repeat colonoscopy for screening purposes. - Proceed with surgical planning for colostomy reversal with Dr. Lopez Referring MD: Leonid Dee Jr, MD Medicines: Propofol per Anesthesia Procedure: Pre-Anesthesia Assessment: - Prior to the procedure, a History and Physical was performed, and patient medications and allergies were reviewed. The patient's tolerance of previous anesthesia was also reviewed. The risks and benefits of the procedure and the sedation options and risks were discussed with the patient. All questions were answered, and informed consent was obtained. Prior Anticoagulants: The patient has taken no anticoagulant or antiplatelet agents. ASA Grade Assessment: II - A patient with mild systemic disease. After reviewing the risks and benefits, the patient was deemed in satisfactory condition to undergo the procedure. - The anesthesia plan was to use monitored anesthesia care (MAC). After I obtained informed consent, the scope was passed under direct vision. Throughout the procedure, the patient's blood pressure, pulse, and oxygen saturations were monitored continuously. The Colonoscope was introduced through the anus and advanced to the cecum, identified by appendiceal orifice and ileocecal valve. The colonoscopy was performed without difficulty. The patient tolerated the procedure well. The quality of the bowel preparation was good. The ileocecal valve, appendiceal orifice, and rectum were photographed. Complications: No immediate complications. Procedure Code(s): --- Professional --- 98130, Colonoscopy, flexible; diagnostic, including collection of specimen(s) by brushing or washing, when performed (separate procedure) --- Technical --- 11540, Colonoscopy, flexible; diagnostic, including collection of specimen(s) by brushing or washing, when performed (separate procedure) Diagnosis Code(s): --- Professional --- K57.32, Diverticulitis of large intestine without perforation or abscess without bleeding K94.00, Colostomy complication, unspecified K57.30, Diverticulosis of large intestine without perforation or abscess without bleeding --- Technical --- K57.32, Diverticulitis of large intestine without perforation or abscess without bleeding K94.00, Colostomy complication, unspecified K57.30, Diverticulosis of large intestine without perforation or abscess without bleeding CPT copyright 2021 [employer]. All rights reserved. The codes documented in this report are preliminary and upon occupational therapy asst review may be revised to meet current compliance requirements. Attending Participation: I personally performed the entire procedure. Jefe Arias MD 01/02/2024 11:19:31 AM Number of Addenda: 0 Note Initiated On: 01/02/2024 7:47 AM [facility] 01-02-2024 Note Formatting of this n ote might be different from the original. [facility] Name: Priscila Cha Procedure Date: 01/02/2024 7:47 AM Gender: Female Date of : 1955 Age: 68 Admit Type: Outpatient Note Status: Finalized Endoscopist: Jefe Arias MD, Procedure: Colonoscopy Indications: Follow-up of diverticulitis, Colostomy complication Findings: The entire examined colon appeared normal. Many medium-mouthed and small-mouthed diverticula were found in the descending colon and surgical stoma. The perianal and digital rectal examinations were normal. Impression: - The entire examined colon is normal. - Diverticulosis in the descending colon and at the surgical stoma. - No specimens collected. Recommendation: - Patient has a contact number available for emergencies. The signs and symptoms of potential delayed complications were discussed with the patient. Return to normal activities tomorrow. Written discharge instructions were provided to the patient. - Continue present medications. - Resume previous diet indefinitely. - Repeat colonoscopy for screening purposes. - Proceed with surgical planning for colostomy reversal with Dr. Lopez Referring MD: Leonid Dee Jr, MD Medicines: Propofol per Anesthesia Procedure: Pre-Anesthesia Assessment: - Prior to the procedure, a History and Physical was performed, and patient medications and allergies were reviewed. The patient's tolerance of previous anesthesia was also reviewed. The risks and benefits of the procedure and the sedation options and risks were discussed with the patient. All questions were answered, and informed consent was obtained. Prior Anticoagulants: The patient has taken no anticoagulant or antiplatelet agents. ASA Grade Assessment: II - A patient with mild systemic disease. After reviewing the risks and benefits, the patient was deemed in satisfactory condition to undergo the procedure. - The anesthesia plan was to use monitored anesthesia care (MAC). After I obtained informed consent, the scope was passed under direct vision. Throughout the procedure, the patient's blood pressure, pulse, and oxygen saturations were monitored continuously. The Colonoscope was introduced through the anus and advanced to the cecum, identified by appendiceal orifice and ileocecal valve. The colonoscopy was performed without difficulty. The patient tolerated the procedure well. The quality of the bowel preparation was good. The ileocecal valve, appendiceal orifice, and rectum were photographed. Complications: No immediate complications. Procedure Code(s): --- Professional --- 42194, Colonoscopy, flexible; diagnostic, including collection of specimen(s) by brushing or washing, when performed (separate procedure) --- Technical --- 87252, Colonoscopy, flexible; diagnostic, including collection of specimen(s) by brushing or washing, when performed (separate procedure) Diagnosis Code(s): --- Professional --- K57.32, Diverticulitis of large intestine without perforation or abscess without bleeding K94.00, Colostomy complication, unspecified K57.30, Diverticulosis of large intestine without perforation or abscess without bleeding --- Technical --- K57.32, Diverticulitis of large intestine without perforation or abscess without bleeding K94.00, Colostomy complication, unspecified K57.30, Diverticulosis of large intestine without perforation or abscess without bleeding CPT copyright 2021 [employer]. All rights reserved. The codes documented in this report are preliminary and upon occupational therapy asst review may be revised to meet current compliance requirements. Attending Participation: I personally performed the entire procedure. Jefe Arias MD 01/02/2024 11:19:31 AM Number of Addenda: 0 Note Initiated On: 01/02/2024 7:47 AM [employer] 12-26-2023 Telephone encounter Note Spoke with Deja, patient's , regarding timing of the colonoscopy. I let him know that patient will be 8 weeks post-op and that this is an appropriate time to have a colonoscopy. I educated him that we usually wait about 6 weeks. I will reach out to Dr. Lopez to make sure he agrees, per Deja's request, but there are no plans to cancel the colonoscopy at this time. Deja is thankful for call back and has no further questions. [employer] Work Phone: 12-26-2023 Miscellaneous Notes Spoke with Deja, patient's , regarding timing of the colonoscopy. I let him know that patient will be 8 weeks post-op and that this is an appropriate time to have a colonoscopy. I educated him that we usually wait about 6 weeks. I will reach out to Dr. Lopez to make sure he agrees, per Deja's request, but there are no plans to cancel the colonoscopy at this time. Deja is thankful for call back and has no further questions. Mr Cha called with concerns about Priscila having the colonoscopy next week. He would like a call back . documented in this encounter [facility] 12-26-2023 Telephone encounter Note Mr Cha called with concerns about Priscila having the colonoscopy next week. He would like a call back . [facility] 12-20-2023 History of Present illness Narrative Post Operative: Surgery Date 11/04/23. Surgical Procedure Partial left colectomy with end ostomy, (Mock's procedure). Patient has no complaints today. Incision(s) healing well. Ostomy functioning well. Here to discuss reversal process. Patient has returned back to normal activities and regular diet. Pathology Diverticulitis. 6 weeks roughly since surgery will schedule patient for upcoming colonoscopy. Overall patient is doing well and will see after completion of colonoscopy to discuss potential ostomy closure. MINNA Dobson CNP, MD documented in this encounter [facility] 12-06-2023 Telephone encounter Note Spoke with Deja. He is calling on behalf of Priscila. He reports abdominal pain intermittently. He reports pain seems be with physical therapy. He reports narcotic seems to help with her pain. Instructed she is 4 weeks out from surgery and should transition to OTC pain medication. Instructed a regimen of Tylenol 1g every 8 hours and ibuprofen 600mg BID. He voices understanding and agreeable to plan. [facility] 12[facility]06-[facility]23 Miscellaneous Notes Spoke with Deja. He is calling on behalf of Priscila. He reports abdominal pain intermittently. He reports pain seems be with physical therapy. He reports narcotic seems to help with her pain. Instructed she is 4 weeks out from surgery and should transition to OTC pain medication. Instructed a regimen of Tylenol 1g every 8 hours and ibuprofen 600mg BID. He voices understanding and agreeable to plan. Deja (patient's ) called asking if Priscila could have some pain meds to take before she goes to physical therapy. Her abdomen hurts while in therapy. Please call him back at [phone] documented in this encounter [facility] 12-06-2023 Miscellaneous Notes Call from asking if there is a pain med that Priscila can take prior to PT. She is struggling to get through due to pain. documented in this encounter [facility] 12-06-2023 Telephone encounter Note Deja (patient's ) called asking if Priscila could have some pain meds to take before she goes to physical therapy. Her abdomen hurts while in therapy. Please call him back at [phone] [facility] 11-29-2023 Note HNO ID: [id number] Author: RUBÉN JIMENES MD Service: ? Author Type: Physician Type: Progress Notes Filed: 11/29/2023 13:21 Note Text: ORTHOPAEDIC OFFICE NOTE CHIEF COMPLAINT: Right total hip arthroplasty HISTORY OF PRESENT ILLNESS: Priscila Cha is a 68 year old female who presents for Follow-up evaluation for right total hip arthroplasty on 10/16/2023. In regards to her hip, she is doing very well. For the most part she is pain-free and her pain is much improved compared to the preoperative state. She did unfortunately have a perforated bowel secondary to diverticulitis and underwent abdominal surgery with ostomy placement. She is still recovering from this and this is been hard for her to get over. She ambulates with a walker at home. She denies current fevers chills nausea vomiting weight loss fatigue or malaise. Reviewed nursing note and current pain scale. PAST MEDICAL HISTORY Diagnosis Date Anxiety Arthritis Atrophic vaginitis Chronic pain Constipation COPD (chronic obstructive pulmonary disease) (HCC) Depression Dyspareunia in female Headache, migraine Hemorrhoids IBS (irritable bowel syndrome) patient denies IBS pt will d/w PCP Menopausal and female climacteric states Multilevel degenerative disc disease Panic disorder Shingles recurring Sinusitis Sleep apnea Spondylolisthesis at L5-S1 level Urinary frequency PAST SURGICAL HISTORY Procedure Laterality Date BACK SURGERY HX 06/2017 cage around discs CATARACT EXTRACTION HX 2008 COLONOSCOPY 01/10/2018 EXTENSIVE JAW SURGERY 1983 SEPTOPLASTY 1985 TONSILLECTOMY HX age 4 FAMILY HISTORY Problem Relation Age of Onset Coronary Artery Disease Mother Coronary Artery Disease Father Colon Cancer Paternal Grandmother Arthritis Other other (Congestive heart failure) Other Thyroid Other Disorder Social History Tobacco Use Smoking status: Former Packs/day: .75 Types: Cigarettes Quit date: 09/27/2023 Years since quittin.1 Smokeless tobacco: Never Tobacco comments: Trying to quit Vaping Use Vaping Use: Never used Substance Use Topics Alcohol use: No Drug use: Yes Types: Marijuana Comment: THC gummies MEDICATIONS: Current Outpatient Medications Medication Sig dicyclomine (BENTYL) 20 mg tablet Take 20 mg by mouth three times a day as needed (GI upset). MAGNESIUM GLYCINATE ORAL Take 400 mg by mouth once daily. HERBAL THERAPY CBD Gummie- Take one by mouth daily at bedtime as needed for insomnia albuterol HFA (PROVENTIL HFA, VENTOLIN HFA) 90 mcg/actuation inhaler Inhale 2 Puffs as instructed every 4 hours as needed for wheezing/shortness of breath. cholecalciferol (VITAMIN D3) 1,000 unit tab tablet 2 tabs Orally Once a day TRELEGY ELLIPTA 200-62.5-25 mcg inhalation powder Inhale 1 Puff as instructed once daily. takes in morning traZODone (DESYREL) 50 mg tablet Take 50 mg by mouth daily at bedtime. clonazePAM (KLONOPIN) 0.5 mg tablet Take 0.25 mg by mouth two times a day as needed for anxiety. Patient reports that Klonopin 0.5mg daily prn is prescribed but that when at home she usually takes Klonopin 0.25mg bid prn Paula Bernal, [facility] October 17, 2023 7:43 AM gabapentin (NEURONTIN) 300 mg capsule Take 300 mg by mouth daily at bedtime. aspirin, enteric coated (ADULT LOW DOSE ASPIRIN) 81 mg EC tablet Take 1 tablet by mouth two times a day for 21 days. No current facility-administered medications for this visit. ALLERGIES: ALLERGIES Allergen Reactions Levaquin [Levofloxa* GI Upset Sulfa (Sulfonamide * Vomiting PHYSICAL EXAMINATION: Resp 20 Ht 5' 3 (1.60m) Wt 134 lb (60.8kg) BMI 23.74 kg/(m2). General Appearance: Well appearing, alert, in no acute distress, well-hydrated, well nourished. Skin: Skin color, texture, turgor normal, no suspicious rashes or lesions. Psych: Patient is alert and oriented to person, time and place. Mood and affect are normal. Respiratory: Breathing is symmetric and unlabored Gait: Patient was examined in a wheelchair today. Extremities: Right lower extremity examined. Laterally based incision is well-healed without drainage or sign of infection. There is no focal tenderness or palpable mass. Gentle range of motion of the hip is relatively pain-free. Lymphatic: There is no palpable lymphadenopathy Peripheral Pulses: Normal. Neurologic: Bilateral lower extremities were examined. There is 5/5 strength with hip flexion, knee extension, dorsiflexion, EHL, plantar flexion. Sensation intact in all nerve dermatomes IMAGES: No results found for this or any previous visit (from the past 36 hour(s)). Plan ASSESSMENT AND PLAN: 1. S/P total right hip arthroplasty - ICD9: V43.64, ICD10: Z96.641 Functional Plan: Patient is a 68-year-old female presenting follow-up evaluation after right total hip arthroplasty on 10/16/2023. Regards to the hip she is doing very well. For most part she is pain-free and ap[place]aca (more content not included)... [facility] 11-29-2023 History of Present illness Narrative Images from the original note were not included. ORTHOPAEDIC OFFICE NOTE CHIEF COMPLAINT: Right total hip arthroplasty HISTORY OF PRESENT ILLNESS: Priscila Cha is a 68 year old female who presents for Follow-up evaluation for right total hip arthroplasty on 10/16/2023. In regards to her hip, she is doing very well. For the most part she is pain-free and her pain is much improved compared to the preoperative state. She did unfortunately have a perforated bowel secondary to diverticulitis and underwent abdominal surgery with ostomy placement. She is still recovering from this and this is been hard for her to get over. She ambulates with a walker at home. She denies current fevers chills nausea vomiting weight loss fatigue or malaise. Reviewed nursing note and current pain scale. PAST MEDICAL HISTORY Diagnosis Date Anxiety Arthritis Atrophic vaginitis Chronic pain Constipation COPD (chronic obstructive pulmonary disease) (HCC) Depression Dyspareunia in female Headache, migraine Hemorrhoids IBS (irritable bowel syndrome) patient denies IBS pt will d/w PCP Menopausal and female climacteric states Multilevel degenerative disc disease Panic disorder Shingles recurring Sinusitis Sleep apnea Spondylolisthesis at L5-S1 level Urinary frequency PAST SURGICAL HISTORY Procedure Laterality Date BACK SURGERY HX 06/2017 cage around discs CATARACT EXTRACTION HX 2008 COLONOSCOPY 01/10/2018 EXTENSIVE JAW SURGERY 1983 SEPTOPLASTY 1985 TONSILLECTOMY HX age 4 FAMILY HISTORY Problem Relation Age of Onset Coronary Artery Disease Mother Coronary Artery Disease Father Colon Cancer Paternal Grandmother Arthritis Other other (Congestive heart failure) Other Thyroid Other Disorder Social History Tobacco Use Smoking status: Former Packs/day: .75 Types: Cigarettes Quit date: 09/27/2023 Years since quittin.1 Smokeless tobacco: Never Tobacco comments: Trying to quit Vaping Use Vaping Use: Never used Substance Use Topics Alcohol use: No Drug use: Yes Types: Marijuana Comment: THC gummies MEDICATIONS: Current Outpatient Medications Medication Sig dicyclomine (BENTYL) 20 mg tablet Take 20 mg by mouth three times a day as needed (GI upset). MAGNESIUM GLYCINATE ORAL Take 400 mg by mouth once daily. HERBAL THERAPY CBD Gummie- Take one by mouth daily at bedtime as needed for insomnia albuterol HFA (PROVENTIL HFA, VENTOLIN HFA) 90 mcg/actuation inhaler Inhale 2 Puffs as instructed every 4 hours as needed for wheezing/shortness of breath. cholecalciferol (VITAMIN D3) 1,000 unit tab tablet 2 tabs Orally Once a day TRELEGY ELLIPTA 200-62.5-25 mcg inhalation powder Inhale 1 Puff as instructed once daily. takes in morning traZODone (DESYREL) 50 mg tablet Take 50 mg by mouth daily at bedtime. clonazePAM (KLONOPIN) 0.5 mg tablet Take 0.25 mg by mouth two times a day as needed for anxiety. Patient reports that Klonopin 0.5mg daily prn is prescribed but that when at home she usually takes Klonopin 0.25mg bid prn Paula Bernal, [facility] October 17, 2023 7:43 AM gabapentin (NEURONTIN) 300 mg capsule Take 300 mg by mouth daily at bedtime. aspirin, enteric coated (ADULT LOW DOSE ASPIRIN) 81 mg EC tablet Take 1 tablet by mouth two times a day for 21 days. No current facility-administered medications for this visit. ALLERGIES: ALLERGIES Allergen Reactions Levaquin [Levofloxa* GI Upset Sulfa (Sulfonamide * Vomiting PHYSICAL EXAMINATION: Resp 20 Ht 5' 3 (1.60m) Wt 134 lb (60.8kg) BMI 23.74 kg/(m^2). General Appearance: Well appearing, alert, in no acute distress, well-hydrated, well nourished. Skin: Skin color, texture, turgor normal, no suspicious rashes or lesions. Psych: Patient is alert and oriented to person, time and place. Mood and affect are normal. Respiratory: Breathing is symmetric and unlabored Gait: Patient was examined in a wheelchair today. Extremities: Right lower extremity examined. Laterally based incision is well-healed without drainage or sign of infection. There is no focal tenderness or palpable mass. Gentle range of motion of the hip is relatively pain-free. Lymphatic: There is no palpable lymphadenopathy Peripheral Pulses: Normal. Neurologic: Bilateral lower extremities were examined. There is 5/5 strength with hip flexion, knee extension, dorsiflexion, EHL, plantar flexion. Sensation intact in all nerve dermatomes IMAGES: No results found for this or any previous visit (from the past 36 hour(s)). Plan ASSESSMENT AND PLAN: 1. S/P total right hip arthroplasty - ICD9: V43.64, ICD10: Z96.641 Functional Plan: Patient is a 68-year-old female presenting follow-up evaluation after right total hip arthroplasty on 10/16/2023. Regards to the hip she is doing very well. For most part she is pain-free and has achieved excellent pain relief compared to the preoperative state. She is ambulate the assistance of a walker but mostly due to balance issues and weakness stemming from her recent abdominal surgery. I did encourage her to work with physical therapy vigorously to maximize her ambulatory potential. I will see her back in 2 months for repeat evaluation with that should arise sooner. All of her questions were answered satisfactorily. She expressed understanding of and agreement with the treatment plan. Return in about 2 months (around 01/29/2024). Rubén Jimenes MD documented in this encounter [facility] 2023 History of Present illness Narrative Post Operative: Surgery Date 11/04/23. Surgical Procedure Partial left colectomy with end ostomy, (Mock's procedure) performed by Dr. Lopez Patient presents in wheelchair with . She reports at [facility] currently hoping to be discharged soon. She reports still requiring narcotic pain medication but slowly improving. She reports ostomy functioning well. JAIMIE drain minimal brown colored drainage. Incision(s) healing well. Midline divine. Small open spot. No signs of infection. Patient has returned back to normal activities and regular diet. Pathology Pathology: Final Diagnosis A. RECTAL, EXCISION: - COLON WITH SEROSITIS B. COLON, SIGMOID, PARTIAL COLECTOMY: - COLON WITH DIVERTICULITIS AND SEROSITIS Patient to continue light activities for the next 2-4 weeks. Overall patient is doing well and I can see them in 4 weeks for reevaluation and to discuss ostomy reversal. Divine and JAIMIE drain removed in office without difficulty. No orders of the defined types were placed in this encounter. MINNA Dobson CNP documented in this encounter [facility] 11-17-2023 History of Present illness Narrative Post Operative: Surgery Date: 11/04/2023. Surgical Procedure: Partial left colectomy with end ostomy, (Mock's procedure). Patient presents today for wound check. She notes that the end of her incision has been red and leaking some yellow fluid. Patient notes continued pain in the incision and LLQ, worse when changing positions. She denies fever/chills or nausea/vomiting. Patient notes that she is slowly experiencing return of appetite but that the food at the SNF is not good. She did well with a [employer] sandwich last night. Patient's notes that the JAIMIE drain over the past few days has turned a bit more cloudy than usual. Patient has returned back to light activities and is doing well working with the therapy teams. She is looking forward to returning home JOE. Incision(s) healing well. Divine intact. Localized erythema present at distal end of incision. JAIMIE drain x 1 with light brown drainage in bulb, serosanguinous drainage in tube- able to be stripped. Multiple divine removed at distal end of incision and incision probed with cotton-tipped gauze. Return of large amount of serosanguinous fluid was appreciated. No purulent or foul-smelling drainage noted. This is compatible with seroma without active infection. Opening was packed with dry, woven gauze and dressing of gauze/tape was applied. Pathology: Final Diagnosis A. RECTAL, EXCISION: - COLON WITH SEROSITIS B. COLON, SIGMOID, PARTIAL COLECTOMY: - COLON WITH DIVERTICULITIS AND SEROSITIS Patient to continue light activities for the next 4 weeks. Continue to monitor midline incision. Clean once daily and pack with dry gauze. Continue to monitor JAIMIE drain although appearance has improved with time and there is more serosanguinous drainage in tubing- will plan on removal Monday. Overall patient is doing well and we can see her on her scheduled appointment on 11/22/[address] Lopez. No orders of the defined types were placed in this encounter. SATINDER Solorzano MD documented in this encounter [facility] 11-14-2023 Telephone encounter Note Emily, wound care nurse from [facility] called in regards to patient's wound. She endorses some erythema and dried serous drainage at the distal end of the patient's incision. She denies currently bleeding or other erythema. Patient is afebrile and tolerating PO intake without issue. Emily plans to clean and apply Dakins dressing and ensure wound is covered. I let her know that I agree with her dressing choice. Given concern for seroma/drainage, will see sooner for wound check. Appointment for 11/17/23 at 10 AM made and she will notify the facility and patient's . [facility] 11-14-2023 Miscellaneous Notes Emily, wound care nurse from [facility] called in regards to patient's wound. She endorses some erythema and dried serous drainage at the distal end of the patient's incision. She denies currently bleeding or other erythema. Patient is afebrile and tolerating PO intake without issue. Emily plans to clean and apply Dakins dressing and ensure wound is covered. I let her know that I agree with her dressing choice. Given concern for seroma/drainage, will see sooner for wound check. Appointment for 11/17/23 at 10 AM made and she will notify the facility and patient's . documented in this encounter [facility] 11-10-2023 History of Present illness Narrative To [facility] via ambulance Images from the original note were not included. Hospitalist Progress Note 11/10/2023 Subjective: Admit Date: 11/03/2023 PCP: LEONID DEE MD Room#: B1-155/B1-155 A Interval History: Patient is lying on the bed, still complaining of some abdominal pain-slightly better compared to yesterday No nausea or vomitings No fever chills or rigors No other significant overnight issues. Adult diet Regular; Low Fiber 24HR INTAKE/OUTPUT: Intake/Output Summary (Last 24 hours) at 11/10/2023 1810 Last data filed at 11/10/2023 1700 Gross per 24 hour Intake -- Output 920 ml Net -920 ml Past Medical History: Past Medical History: Diagnosis Date Arthritis COPD exacerbation (HCC) 06/20/2022 Pneumonia 03/04/2019 Primary hypertension 06/24/2023 LABS: CBC: Recent Labs 11/08/23 0451 11/09/23 0507 11/10/23 0135 WBC 13.0* 13.5* 16.4* RBC 3.31* 2.63* 3.21* HGB 8.6* 7.1* 8.2* HCT 25.7* 21.6* 25.3* MCV 77.7* 82.2 79.0* RDW 18.4* 19.4* 18.9* PLT 595* 502* 665* BMP: Recent Labs 11/08/23 0451 11/09/23 0544 11/10/23 0135 NA 135 134* 134* K 2.7* 3.3* 3.9 CL 105 108* 107 CO2 27 25 25 BUN 4* 5* 6* CREATININE 0.42* 0.39* 0.49* GLUCOSE 120* 115* 102* CALCIUM 8.0* 7.8* 8.0* ANIONGAP 3 1* 2* LIVER PROFILE: Recent Labs 11/08/23 04511/09/23 0544 11/10/23 0135 AST 30 20 28 ALT 15 12 11 BILITOT 0.5 0.3 0.2 ALKPHOS 78 75 74 PROT 5.6* 5.1* 5.1* PT/INR: No results for input(s): PROTIME , INR in the last 72 hours. CARDIAC ENZYMES: No results for input(s): TROPONINI in the last 72 hours. Procalcitonin: No results found for: PROCAL COVID-19 PCR: No results for input(s): COVID19 in the last 72 hours. Objective: Vitals: BP 160/80 (BP Location: Right arm) Pulse 106 Temp 36.2 C (97.1 F) (Temporal) Resp 18 Ht 5' 1.81 (1.57 m) Wt 134 lb 0.6 oz (60.8 kg) LMP (LMP Unknown) SpO2 93% BMI 24.67 kg/m Pulse Ox: SpO2 Av % Min: 93 % Max: 93 % Supplemental O2: O2 Flow Rate (L/min): 3 L/min Physical Exam Vitals and nursing note reviewed. HENT: Mouth/Throat: Pharynx: Oropharynx is clear. Eyes: Conjunctiva/sclera: Conjunctivae normal. Cardiovascular: Rate and Rhythm: Normal rate. Heart sounds: No murmur heard. Pulmonary: Effort: Pulmonary effort is normal. No respiratory distress. Breath sounds: No wheezing or rales. Abdominal: General: Bowel sounds are normal. Tenderness: abdominal tenderness. Comments: Ostomy site appears healthy- no surrounding cellulitis. Scant amount of blood in surgical site drainage tube Musculoskeletal: Comments: Right hip lesion dry and intact Skin: General: Skin is warm. Capillary Refill: Capillary refill takes less than 2 seconds. Neurological: General: No focal deficit present. Mental Status: She is alert. Medications: amoxicillin-clavulanate, 875 mg, Oral, 2 times per day enoxaparin, 40 mg, SubCUTAneous, Daily Vkwobbffanu-Drsbyroyb-Qqjmwt, 1 puff, Inhalation, Daily gabapentin, 300 mg, Oral, BID pantoprazole (ProtoNix) 40 mg in sodium chloride (PF) 0.9 % 10 mL injection, 40 mg, IntraVENous, Nightly sodium chloride 0.9%, 10 mL, IntraVENous, 2 times per day Assessment Intractable abdominal pain. S/p left-sided sigmoid diverticulitis s/p Ronni procedure on 11/04. Severe protein calorie malnutrition. Bacteroids fragilis group bacteremia. History of COPD. Anxiety/depression. Chronic pain syndrome. Left-sided total hip arthroplasty on 10/16. Plan S/p partial left colectomy with end ostomy and Ronni procedure on 11/04 tolerated procedure well. Still complaining of some abdominal pain-continue symptomatic treatment Today last dose for ertapenem-discontinued. Discussed with ID stewardship. Patient unable to tolerate metronidazole-change antibiotics to Augmentin as per ID recommendations Advance to full liquids, continue protein supplements with Ensure 3 times daily with meals. Repeat potassium is 3.3-replaced recheck with a.m. labs Follow-up CBC BMP ordered. PT OT. - am labs, replace lytes prn - PT/OT/CM/SW - delirium precautions: increase activity, limit nighttime disturbances, and avoid anticholinergic meds, benzos, etc - DVT prophylaxis: enoxaparin and encourage ambulation Advance Directive: Full Code Anticipated Discharge - Date -1 to 2 days - Location - Skilled Facility - Pending the following -clinical improvement Total time spent (which include face to face and non face to face encounters) : 25 minutes Extended Emergency Contact Information Primary Emergency Contact: Deja Cha Mobile Relation: Spouse Iftikhar Dai MD Division of Hospitalist Medicine [facility] Report called to [facility] at [phone] Notified by Case Management that [facility] has bed available for patient today. From surgical and medical standpoint, patient is ready for discharge. Transport arranged for 4:30 PM. Notified that patient and are concerned about facility transport and would like to chat with team. Nursing [facility] [employer] called to bedside as well to address concerns. Visited with patient and called Deja at bedside. Discussed that medically the patient has done well and does not need further hospitalization. She has met goals of ostomy function, pain control, and wound healing. Agree with discharge to SNF with PO antibiotics. Patient and agreeable and thankful for conversation. Confirmed with Hannah Multani RN who also discussed discharge plan with Deja on the phone. Post-op appointment set for 11/22/23 at 10:[address] Lopez for wound check, JAIMIE drain removal, and staple removal. Patient and have no further questions at this time. SATINDER Solorzano Both patient and feel the patient is not ready to leave the hospital. Miguel Angel RAJAN notified via secure message Images from the original note were not included. OCCUPATIONAL THERAPY [facility] Treatment Note Name/MRN: Priscila Cha ([id number]) Date of : 1955 Age: 67 y.o. Room/Bed: B1155/B1155 A Visit #: 2 out of 7 visits Discharge Recommendation: Half-Way Facility Assessment Pt in the bed and is agreeable to OT. States she was recently medicated for pain but is still a 7/10 abdominal pain. Reports high anxiety and RN notified pt wants something for anxiety. Pt is SBA for supine to sit, CGA for sit >stand and functional mobility to the sink and only able to stand approximately 1 minute at the sink before needing to sit. BSC brought up behind pt to sit while she brushed her teeth and washed her face. CGA for candelaria-care in standing. SBA for UB bathing sitting EOB. Min assist to change hospital IV gown. Min assist for sit > supine. Pt tolerated fair and is limited by decreased endurance, weakness, pain and fatigue. Would benefit from continued OT to increase strength and endurance needed for ADL's and transfers. OT recs SNF at discharge. Subjective My anxiety is so bad right now. It's like I am coming out of my skin . Pain: 0-10 pain scale: 7/10 Location: abdomen Medical Precautions: Contact Proper PPE donned/doffed in accordance with facility standards. Fall Risk: Adams Fall Risk Score: 45 (High Risk) Precautions/Restrictions: Left LE Weight Bearing: Weight Bearing As Tolerated Hip Precautions: Posterior Hip Precautions Other Position/Activity Restriction: abdominal precautions Lines/Drains/Airways: NG tube, JAIMIE drain Family/Caregiver Present: none Objective ADLs Grooming: SBA, after setup, sitting at the sink to brush her teeth. UE Bathing: SBA, after setup, sitting EOB LE Bathing: Contact Guard, standing at the sink for candelaria-care UE Dressing: Min Assist, Hospital gown sitting EOB LE Dressing: total assist to don and doff socks in the bed. Pt did not attempt due to pain and fatigue. Pt is limited by weakness, pain and poor endurance. ISABEL encouraged pt to stand and brush her teeth but pt states she can't and want to sit and do it. Pt stood for candelaria-care at the sink with no LOB but stood 1 minute or less. Pt needed 1 verbal cue to maintain hip precautions. Pt crossed her leg when ISABEL putting on her sock. Pt stopped with cues. Bed Mobility Supine to sit: SBA Sit to supine: Min Assist, for LE's Transfers/Mobility Sit to stand: Contact Guard Stand to sit: Contact Guard Bedside commode: Pt sat on the BSC that ISABEL brought up behind her. Did not use and declined toileting. Sitting balance: Supervision Standing balance: Contact Guard Functional mobility: Contact Guard Pt is CGA for short distance mobility in her room with th FWW. Pt had no LOB but walks with flexed posture and shoulders rounded due to abdominal pain. Pt declines to walk farther than the sink and back. No c/o dizziness but poor tolerance for standing. Device(s) used: front wheeled walker, bedside commode, and hospital bed Cognition - WFL but very anxious. Cues given for breathing techniques due to rapid breathing from anxiety. Pt is self limiting and is had trouble focusing due to pain and anxiety. Plan Continue acute OT per plan of care. Safety/Education Safety Safety Devices in place: All fall risk precautions in place, call light within reach, left in bed, gait belt, nurse notified, and no alarms engaged upon entry Restraints: No Education Education Given To: patient Education Provided: OT Role, Plan of Care, ADL Adaptive Strategies, Transfer Training, Fall Prevention Education, and Benefits of Increasing Activity Education Method: Verbal and Demonstration Barriers to Learning: pain and anxiety Education Outcome: Verbalized Understanding, Demonstrated Understanding, and Continued Education Needed AM-PAC AM-PAC Inpatient Daily Activity Raw Score: 17 ADL Inpatient CMS G-Code Modifier: CK Goals Patient Stated Goal: none stated Encounter Problems Encounter Problems (Active) Balance Patient will tolerate standing for 3 minutes SBA at fww to allow increased independence in ADLs (Progressing) Start: 11/05/23 Expected End: 11/19/23 Dressing Upper Extremities Patient will complete upper body ADLs mod I. (Progressing) Start: 11/05/23 Expected End: 11/19/23 Dressings Lower Extremities Patient will complete lower body ADLs with SBA. (Not Addressed) Start: 11/05/23 Expected End: 11/19/23 Mobility Patient will demonstrate functional ambulation SBA with fww. (Progressing) Start: 11/05/23 Expected End: 11/19/23 Patient will increase strength in BUE to be able to increase strength required for transfers. (Not Addressed) Start: 11/05/23 Expected End: 11/19/23 Toileting Patient will complete toileting tasks at standard toilet with SBA. (Not Addressed) Start: 11/05/23 Expected End: 11/19/23 Transfers Patient will complete functional transfer with rolling walker with SBA in order to prepare for ambulation. (Progressing) Start: 11/05/23 Expected End: 11/19/23 Patient will perform bed mobility with SBA in order to improve independence and prepare for out of bed mobility. (Progressing) Start: 11/05/23 Expected End: 11/19/23 Therapy Time Individual Co-treatment Time In 0828 Time Out 0855 Minutes 27 Timed Code Treatment Minutes: 25 Minutes (adl and ther act) MAAME Rosen Nutrition Assessment Type and Reason for Visit: Reassess Nutrition Recommendations/Plan: Continue diet as ordered; pt educated on low fiber diet Per mnt protocol will discontinue Ensure Clear. Continue Ensure Plus (350 kcals, 20 gm protein) and initiate Ensure HP (160 kcals, 16 gm prot) daily. Pt's bringing 30 gm protein Boost supplement daily per pt RD to monitor po intakes, labs, weights, bowel function; follow up weekly Malnutrition Assessment: Malnutrition Status: Severe malnutrition as previously assessed per RD Context: Acute Illness Findings of the 6 clinical characteristics of malnutrition: Energy Intake: 50% or less of estimated energy requirements for 5 or more days Weight Loss: Greater than 5% over 1 month Body Fat Loss: Mild body fat loss Orbital, Buccal region Muscle Mass Loss: Mild muscle mass loss Clavicles (pectoralis & deltoids), Temples (temporalis) Fluid Accumulation: Unable to assess [employer] Strength: Not Performed Nutrition Assessment: S/p left-sided sigmoid diverticulitis s/p Ronni procedure on 11/04. pt reports abdominal pain not associated with meal intake and improving appetite/intake. Pt states she doesn't like Ensure Clear but willing to drink Vanilla Ensure, bringing Boost supplement 30 gm protein daily reports drinking 100%. Estimated Daily Nutrient Needs: Energy Requirements Based On: Kcal/kg Weight Used for Energy Requirements: [place] Weight for Energy Calculation (kg): 50 kg Total Energy Requirements (kcals/day): 0103-9075 (25-30 kcal/kg IBW) Weight Used for Protein Requirements: [place] Weight in Kg Used for Protein Requirements: 50 kg Estimated Total Protein (g/day): 60-90 (1.2-1.8 g protein/kg IBW) Estimated Daily Total Fluid (ml/day): per MD Nutrition Related Findings: BLE nonpitting edema, abd soft +bs, stool per ostomy 50 ml per records, no new wt to report on, labs/ medications reviewed Wound Type: Surgical Incision (midline. LENNOX incision not observed) Current Nutrition Therapies: Adult diet Regular; Low Fiber Current Oral Intake Average Meal Intake: 26-50% (pt reports 50% intake) Average Supplements Intake: 26-50% (dislikes ensure clear) Anthropometric Measures: Height: 157 cm (5' 1.81 ) Current Body Weight: 60.8 kg (134 lb 0.6 oz) Weight Source: Bed Scale Admission Body Weight: 60.8 kg (134 lb 0.6 oz) Usual Body Weight: 64.9 kg (143 lb) (per EMR review--> 134# 10/30/23; 134.8# 09/27/23; 144# 05/01/23; 143# 09/26/22) % Weight Change (Calculated): -6.3 [place] Body Weight (lbs) (Calculated): 109 lbs [place] Body Weight (Kg) (Calculated): 50 kg % [place] Body Weight (Calculated): 123 % BMI (kg/m2) (Calculated): 24.7 Weight Adjustment For: No Adjustment BMI Categories: Overweight (BMI 25.0-29.9) Nutrition Diagnosis: Severe malnutrition, In context of acute illness or injury related to increase demand for energy/nutrients, inadequate protein-energy intake as evidenced by poor intake prior to admission, weight loss greater than or equal to 5% in 1 month, mild loss of subcutaneous fat, mild muscle loss Altered GI function related to altered GI structure as evidenced by (s/p Ex Lap with sigmoid resection and end colostomy creation 11/04/23) Nutrition Interventions: Nutrition Education/Counseling: Education completed Coordination of Nutrition Care: Continue to monitor while inpatient Plan of Care discussed with: patient Educated on low fiber diet Learners: Patient Readiness: Acceptance Method: Explanation and Handout Response: Verbalizes Understanding; pt encouraged to slowly add fiber back to diet when approved by MD Contact name and number provided. Goals: Previous Goal Met: Progressing toward Goal(s) Goals: PO intake 75% or greater, prior to discharge Nutrition Monitoring and Evaluation: Behavioral-Environmental Outcomes: None Identified Food/Nutrient Intake Outcomes: Diet Advancement/Tolerance, Food and Nutrient Intake, Supplement Intake Physical Signs/Symptoms Outcomes: Biochemical Data, GI Status, Nausea or Vomiting, Fluid Status or Edema, Hemodynamic Status, Nutrition Focused Physical Findings, Skin, Weight Discharge Planning: Continue Oral Nutrition Supplement, Continue current diet Hyacinth Mosley RD Contact: *[phone] or via Secure Chat Surgery Post Op Progress Note PATIENT NAME: Priscila Cha TODAY'S DATE: 11/10/2023 SUBJECTIVE: Follow up s/p Ronni procedure. Patient seen this morning resting in bed, at bedside. She notes continued pain but appears more comfortable and is pleasant on conversation. Patient has tolerated food and had cream of wheat for breakfast today. She denies abdominal pain with eating. Patient denies fever/chills or nausea/vomiting. She notes working with therapy this morning to get up and wash face/bathe. She is requesting different antibiotic as flagyl causes vomiting. Pain controlled Yes Other Complaints No Flatus/BM/or Ostomy function Yes OBJECTIVE: VITALS: BP 160/80 (BP Location: Right arm) Pulse 106 Temp 36.2 C (97.1 F) (Temporal) Resp 18 Ht 5' 1.81 (1.57 m) Wt 134 lb 0.6 oz (60.8 kg) LMP (LMP Unknown) SpO2 93% BMI 24.67 kg/m INTAKE/OUTPUT: I/O last 3 completed shifts: In: 649 (10.7 mL/kg) [I.V.:649 (10.7 mL/kg)] Out: 50 (0.8 mL/kg) [Drains:50] Weight: 60.8 kg I/O this shift: In: - Out: 400 [Urine:400] CONSTITUTIONAL: Awake and Alert ABDOMEN: soft, ostomy present with gas and stool in bag INCISION: clean, dry, no drainage, divine intact Data: CBC: Recent Labs 11/08/23 0451 11/09/23 0507 11/10/23 0135 WBC 13.0* 13.5* 16.4* HGB 8.6* 7.1* 8.2* HCT 25.7* 21.6* 25.3* PLT 595* 502* 665* BMP: Recent Labs 11/08/23 0451 11/09/23 0544 11/10/23 0135 NA 135 134* 134* K 2.7* 3.3* 3.9 CL 105 108* 107 CO2 27 25 25 BUN 4* 5* 6* CREATININE 0.42* 0.39* 0.49* GLUCOSE 120* 115* 102* Hepatic: Recent Labs 11/08/23 0451 11/09/23 0544 11/10/23 0135 AST 30 20 28 ALT 15 12 11 BILITOT 0.5 0.3 0.2 ALKPHOS 78 75 74 ASSESSMENT AND PLAN: Ms. Cha is a 67 y/o F who is s/p Partial left colectomy with end ostomy, (Mock's procedure) POD#6 - WBC 16.4- monitor, Hgb 8.2 (Severe Sepsis) - Continue low fiber diet - PO antibiotic regimen- will switch to Augmentin given Flagyl intolerance: appreciate stewardship guidance [place] [facility] [place], appreciate recs and K+ replacement - DVT ppx: Lovenox - Ostomy SPECIAL EFFECTS TECHNICIAN following for teaching - PT/OT evaluation- recent LENNOX, appreciate therapy recs- SNF at present - OOB with assist - Pain control: trial PO first, suggest Toradol, continue to wean of IV dilaudid Disposition: Patient POD#6 with slowly improving pain and diet tolerance. Continue to encourage PO pain medication and increased activity. Low fiber diet to continue. Anticipate discharge within 24 hours pending insurance auth to SNF. SATINDER Solorzano Surgery Rashida RAJAN notified that patient refuses the flagyl Patient refused to take ordered Metronidazole tablet and after explanation of it's use. Her and spouse state that she took that medication before when she had hip replacement and it made her vomit. Dr. Dai notified by secure chat. Images from the original note were not included. Hospitalist Progress Note 11/09/2023 Subjective: Admit Date: 11/03/2023 PCP: LEONID DEE MD Room#: B1-155/B1-429 A Interval History: Patient is lying on the bed, still complaining of some abdominal pain-slightly better compared to yesterday No nausea or vomitings No fever chills or rigors No other significant overnight issues. Adult diet Regular; Low Fiber 24HR INTAKE/OUTPUT: Intake/Output Summary (Last 24 hours) at 11/09/2023 1523 Last data filed at 11/09/2023 0621 Gross per 24 hour Intake 649 ml Output 90 ml Net 559 ml Past Medical History: Past Medical History: Diagnosis Date Arthritis COPD exacerbation (HCC) 06/20/2022 Pneumonia 03/04/2019 Primary hypertension 06/24/2023 LABS: CBC: Recent Labs 11/07/23 03411/08/23 0451 11/09/23 0507 WBC 11.8* 13.0* 13.5* RBC 2.91* 3.31* 2.63* HGB 7.5* 8.6* 7.1* HCT 23.3* 25.7* 21.6* MCV 80.2 77.7* 82.2 RDW 18.8* 18.4* 19.4* PLT 555* 595* 502* BMP: Recent Labs 11/07/23 0346 11/08/23 0451 11/09/23 0544 NA 133* 135 134* K 3.5 2.7* 3.3* CL 108* 105 108* CO2 23 27 25 BUN 16 4* 5* CREATININE 0.44* 0.42* 0.39* GLUCOSE 143* 120* 115* CALCIUM 7.8* 8.0* 7.8* ANIONGAP 3 3 1* LIVER PROFILE: Recent Labs 11/07/23 0346 11/08/23 0451 11/09/23 0544 AST 29 30 20 ALT 16 15 12 BILITOT 0.3 0.5 0.3 ALKPHOS 68 78 75 PROT 5.2* 5.6* 5.1* PT/INR: No results for input(s): PROTIME , INR in the last 72 hours. CARDIAC ENZYMES: No results for input(s): TROPONINI in the last 72 hours. Procalcitonin: No results found for: PROCAL COVID-19 PCR: No results for input(s): COVID19 in the last 72 hours. Objective: Vitals: BP 159/98 Pulse 94 Temp 36.6 C (97.8 F) (Temporal) Resp 18 Ht 5' 1.81 (1.57 m) Wt 134 lb 0.6 oz (60.8 kg) LMP (LMP Unknown) SpO2 97% BMI 24.67 kg/m Pulse Ox: SpO2 Av.5 % Min: 96 % Max: 97 % Supplemental O2: O2 Flow Rate (L/min): 3 L/min Physical Exam Vitals and nursing note reviewed. HENT: Mouth/Throat: Pharynx: Oropharynx is clear. Eyes: Conjunctiva/sclera: Conjunctivae normal. Cardiovascular: Rate and Rhythm: Normal rate. Heart sounds: No murmur heard. Pulmonary: Effort: Pulmonary effort is normal. No respiratory distress. Breath sounds: No wheezing or rales. Abdominal: General: Bowel sounds are normal. Tenderness: abdominal tenderness. Comments: Ostomy site appears healthy- no surrounding cellulitis. Scant amount of blood in surgical site drainage tube Musculoskeletal: Comments: Right hip lesion dry and intact Skin: General: Skin is warm. Capillary Refill: Capillary refill takes less than 2 seconds. Neurological: General: No focal deficit present. Mental Status: She is alert. Medications: enoxaparin, 40 mg, SubCUTAneous, Daily Fsrmbrxjpec-Sqedthzrs-Ywvnse, 1 puff, Inhalation, Daily [Held by provider] gabapentin, 300 mg, Oral, BID metroNIDAZOLE, 500 mg, Oral, q8h pantoprazole (ProtoNix) 40 mg in sodium chloride (PF) 0.9 % 10 mL injection, 40 mg, IntraVENous, Nightly sodium chloride 0.9%, 10 mL, IntraVENous, 2 times per day Assessment Intractable abdominal pain. S/p left-sided sigmoid diverticulitis s/p Ronni procedure on 11/04. Severe protein calorie malnutrition. Bacteroids fragilis group bacteremia. History of COPD. Anxiety/depression. Chronic pain syndrome. Left-sided total hip arthroplasty on 10/16. Plan S/p partial left colectomy with end ostomy and Ronni procedure on 11/04 tolerated procedure well. Still complaining of some abdominal pain-continue symptomatic treatment Today last dose for ertapenem-discontinued. Discussed with ID stewardship. Started patient on metronidazole 5 mg every 8 hours on 11/09 Advance to full liquids, continue protein supplements with Ensure 3 times daily with meals. Repeat potassium is 3.3-replaced recheck with a.m. labs Follow-up CBC BMP ordered. PT OT. - am labs, replace lytes prn - PT/OT/CM/SW - delirium precautions: increase activity, limit nighttime disturbances, and avoid anticholinergic meds, benzos, etc - DVT prophylaxis: enoxaparin and encourage ambulation Advance Directive: Full Code Anticipated Discharge - Date -1 to 2 days - Location - Skilled Facility - Pending the following -clinical improvement Total time spent (which include face to face and non face to face encounters) : 25 minutes Extended Emergency Contact Information Primary Emergency Contact: Deja Cha Mobile Relation: Spouse Iftikhar Dai MD Division of Hospitalist Medicine [facility] Images from the original note were not included. OCCUPATIONAL THERAPY [facility] Name/MRN: Prsicila Cha ([id number]) Date: 11/09/2023 Chart reviewed. Pt refused therapy at this date d/t pain in abdomin. Pt rates current pain at a 10. Will attempt if schedule permits. MEREDITH Alcantar Images from the original note were not included. PHYSICAL THERAPY [facility] Treatment Note Name/MRN: Priscila Cha ([id number]) Date of : 1955 Age: 67 y.o. Room/Bed: B1-155/B1-155 A Visit #: 3 out of 5 visits Discharge Recommendation: Half-Way Facility Equipment Needed: No Prior Level of Function ADL Assistance: Independent and prior to L Lenn[place], now required assist Ambulation Assistance: Independent Device(s) used: none and front wheeled walker; no device prior to LENNOX, now uses FWW Transfer Assistance: Independent Assessment Pt making small gains in functional mobility with main limitation being abdominal pain. Pt continues to require assist to complete all functional tasks with reminders for proper hand placement for safety and support. Pt tolerates limited exercises secondary to pain. Pt will continue to benefit from current recommendation to further improve her functional mobility and strength for independence Subjective Pt agreeable to therapy. Observation: PIV intact,colectomy and drain intact Pain: 0-10 pain scale: 7/10 pre and post treatment Location: abdomen Medical Precautions: Contact Proper PPE donned/doffed in accordance with facility standards. Fall Risk: Adams Fall Risk Score: 45 (High Risk) Precautions/Restrictions: Left LE Weight Bearing: Weight Bearing As Tolerated Hip Precautions: Posterior Hip Precautions Other Position/Activity Restriction: abdominal precautions Lines/Drains/Airways: , JAIMIE drain Overall Cognitive Status: WFL Overall Orientation Status: Oriented x4 Family/Caregiver Present: none Objective Ambulation Ambulation 1 Assistive device(s) used: front wheeled walker and IV in tow Assist level: SBA, Min Assist Distance (ft): 40' x 2 Quality of gait: Pt demonstrated a slow step thru pattern with foot clearance. Posture slightly flexed due to pain. Pt requires light support secondary to occasional pauses due to pain and when attempting to manage walker thru turns for stability. Transfers/Mobility Sit to stand: Min Assist Stand to sit: Min Assist Pt requires repeated cueing for hand placement with each attempt. Light support provided to stabilize pt. Device(s) used: front wheeled walker Exercises Exercises Quad Sets: 1 set 6 reps in supine B LE Hip Abduction: 1 set / 10 reps in sitting B LE isometrically Hip Adduction: 1 set / 10 reps in sitting B LE isometrically Knee Long Arc Quad: 1 set / 10 reps in sitting B LE individually Ankle Pumps: 1 set / 15 reps in sitting B LE Comments: Exercises performed to improve strength,joint integrity and circulation for healing and mobility. Pt tolerates limited repetitions secondary to abdominal pain Bed Mobility Supine to sit: Min Assist Sit to supine: Min Assist Pt required cueing for sequencing and technique to complete with assist to guide and support pt thru transitions. Plan Continue acute PT per plan of care. Safety/Education Safety Safety Devices in place: All fall risk precautions in place, call light within reach, left in bed, gait belt, and nurse notified Restraints: No Education Education Given To: patient Education Provided: PT Role, PT Goals, Gait Training, Plan of Care, Home Exercise Program, Precautions, Transfer Training, and Equipment Education Method: Verbal, Demonstration, and Teach Back Barriers to Learning: None Education Outcome: Verbalized Understanding and Demonstrated Understanding Outcome Measures AM-PAC AM-PAC Inpatient Mobility Raw Score (No Stairs) : 11 Goals Patient Stated Goal: Pt did not state Encounter Problems Encounter Problems (Active) Exercise Patient will complete lower extremity exercises for 1-2 sets / 5-10 reps in order to improve strength and activity tolerance for mobility. (Progressing) Start: 11/05/23 Expected End: 11/12/23 Mobility Patient will ambulate 50 feet with SBA and rolling walker in order to improve safety and independence with mobility. (Progressing) Start: 11/05/23 Expected End: 11/12/23 Patient will ascend and descend 12 stairs with one railing and CGA in order to safely negotiate home. (Not Addressed) Start: 11/05/23 Expected End: 11/12/23 Pain - Adult Transfers Patient will perform bed mobility with SBA in order to improve independence and prepare for out of bed mobility. (Progressing) Start: 11/05/23 Expected End: 11/12/23 Patient will complete functional transfer with rolling walker with SBA in order to prepare for ambulation. (Progressing) Start: 11/05/23 Expected End: 11/12/23 Therapy Time Individual Co-treatment Time In 1310 Time Out 1335 Minutes 25 Timed Code Treatment Minutes: 23 Minutes (ther ex and gait) [place] PTA Surgery Post Op Progress Note PATIENT NAME: Priscila Cha TODAY'S DATE: 11/09/2023 SUBJECTIVE: General Surgery Follow up on Ronni procedure. Continued complaints of abdominal pain with activity but no worse. Tolerating liquids. No N/V. Ostomy functioning. Pain controlled YES/NO: Yes Other Complaints YES/NO: No Flatus/BM/or Ostomy function YES/NO: Yes OBJECTIVE: VITALS: BP 159/98 Pulse 94 Temp 36.6 C (97.8 F) (Temporal) Resp 18 Ht 5' 1.81 (1.57 m) Wt 134 lb 0.6 oz (60.8 kg) LMP (LMP Unknown) SpO2 97% BMI 24.67 kg/m INTAKE/OUTPUT: I/O last 3 completed shifts: In: 2149 (35.3 mL/kg) [P.O.:150; I.V.:1799 (29.6 mL/kg); IV Piggyback:200] Out: 210 (3.5 mL/kg) [Drains:210] Weight: 60.8 kg No intake/output data recorded. CONSTITUTIONAL: awake and alert ABDOMEN: soft, nondistended, and incisional tenderness INCISION: clean, dry, no drainage. Midline divine. JAIMIE SS drainage. Ostomy healthy appearing with stool brown in the bag. Data: CBC: Recent Labs 11/07/23 0346 11/08/23 04511/09/23 0507 WBC 11.8* 13.0* 13.5* HGB 7.5* 8.6* 7.1* HCT 23.3* 25.7* 21.6* PLT 555* 595* 502* BMP: Recent Labs 11/07/23 03411/08/23 0451 11/09/23 0544 NA 133* 135 134* K 3.5 2.7* 3.3* CL 108* 105 108* CO2 23 27 25 BUN 16 4* 5* CREATININE 0.44* 0.42* 0.39* GLUCOSE 143* 120* 115* Hepatic: Recent Labs 11/07/23 0346 11/08/23 0451 11/09/23 0544 AST 29 30 20 ALT 16 15 12 BILITOT 0.3 0.5 0.3 ALKPHOS 68 78 75 ASSESSMENT AND PLAN: Ms. Cha is a 67 y/o F who is s/p Partial left colectomy with end ostomy, (Mock's procedure) POD#5 - WBC 13.5, Hgb 7.1 -Severe Sepsis - Advance to low fiber diet - IV atbx continue ertapenem through today, then transition to PO metronidazole until 11/16. Culture of abdominal wall at time of surgery with ESBL and enterococcus. Enterococcus appropriately treated with Zosyn and Vancomycin. ID stewardship following - [facility] medical management, appreciate recs and K+ replacement - DVT ppx: Lovenox - Ostomy SPECIAL EFFECTS TECHNICIAN following - PT/OT evaluation- recent LENNOX, appreciate therapy recs- SNF at present - OOB with assist - Pain control: trial PO first, suggest Toradol, continue to wean of IV dilaudid Disposition: Patient POD#5 and complains of continued abdominal pain encourage PO pain medication, and increased activity. Tolerating FLD, HL IVF, advance to low fiber. Will continue to advance diet as bowel function improves. Anticipate discharge within 24-48 hours pending insurance auth to SNF. Fernando Brady, MINNA Calvert CNP [facility] Wound Care Progress Note Priscila Cha AGE: 67 y.o. GENDER: female : 1955 Subjective: HISTORY of PRESENT ILLNESS HPI Priscila Cha is a 67 y.o. female who presents for a ostomy management education visit. I spent approximately 45 minutes face to face in the diagnosis, treatment, evaluation and education of wound and ostomy care with this wound care visit. Discussed care with patient and then Deja educated as well. I gave her some pouches to take home. Not ready to change pouch on herself at this time, still awaiting stool from stoma. Encouraged her to get out of bed at least twice a day. Is getting up to use BSC . Discussed 1 and 2 piece pouch options. Most likely will go to rehab after discharged per . PAST MEDICAL HISTORY Active Ambulatory Problems Diagnosis Date Noted COPD exacerbation (HCC) 06/20/2022 Dizziness 10/15/2021 Community acquired pneumonia 01/13/2022 Chest pain 06/19/2022 Pneumonia 03/04/2019 Diverticulitis 06/23/2023 Chronic pain 06/24/2023 Multilevel degenerative disc disease 06/24/2023 Spondylolisthesis of lumbar region 07/06/2017 Spondylolisthesis at L5-S1 level 06/24/2023 Spondylolisthesis at L4-L5 level 07/06/2017 Primary hypertension 06/24/2023 Moderate malnutrition (CMS/HCC) (HCC) 07/04/2023 Sigmoid diverticulitis 07/19/2023 Intra-abdominal abscess (CMS/HCC) (HCC) 08/02/2023 Antibiotic drug intolerance 08/02/2023 LLQ abdominal pain 09/27/2023 Resolved Ambulatory Problems Diagnosis Date Noted No Resolved Ambulatory Problems Past Medical History: Diagnosis Date Arthritis PAST SURGICAL HISTORY Past Surgical History: Procedure Laterality Date BACK SURGERY N/A 2017 lower back in middle EXPLORATORY LAPAROTOMY 11/04/2023 colon resection, colostomy MANDIBLE SURGERY Bilateral 1983 wires on both jaws now TONSILLECTOMY (HISTORICAL) FAMILY HISTORY Family History Problem Relation Name Age of Onset No Known Problems Other No Known Problems Brother No Known Problems Maternal Grandfather No Known Problems Paternal Grandfather No Known Problems Sister No Known Problems Maternal Grandmother No Known Problems Paternal Grandmother SOCIAL HISTORY Social History Tobacco Use Smoking status: Every Day Packs/day: .25 Types: Cigarettes Smokeless tobacco: Current Tobacco comments: Quit smoking: trying to quit Substance Use Topics Alcohol use: Not Currently Drug use: Yes Types: Marijuana Comment: Medical Marijuana and gummies ALLERGIES Allergies Allergen Reactions Codeine Levofloxacin Other reaction(s): GI Upset, U Sulfa Antibiotics Other reaction(s): Vomiting MEDICATIONS No current facility-administered medications on file prior to encounter. Current Outpatient Medications on File Prior to Encounter Medication Sig Dispense Refill albuterol 108 (90 Base) MCG/ACT inhaler Inhale 2 puffs every 4 hours as needed for shortness of breath or wheezing. clonazePAM (KlonoPIN) 0.5 MG tablet Take 0.5 mg by mouth 2 times daily. Nomjbmtsgsg-Bnqhnvmtk-Hhdcwl (Trelegy Ellipta) 100-62.5-25 MCG/ACT aerosol powder Inhale 1 puff daily. gabapentin (Neurontin) 300 MG capsule Take 300 mg by mouth 2 times daily as needed. senna-docusate sodium (Senokot-S) 8.6-50 MG tablet Take 2 tablets by mouth daily. 60 tablet 11 traZODone (Desyrel) 50 MG tablet Take 50 mg by mouth every evening. [DISCONTINUED] amLODIPine (Norvasc) 5 MG tablet Take 1 tablet by mouth daily. [DISCONTINUED] HYDROcodone-acetaminophen ([place]) 5-325 MG tablet REVIEW OF SYSTEMS Pertinent items are noted in HPI. Objective: BP 152/99 (BP Location: Right arm, Patient Position: Lying) Pulse 91 Temp 36.2 C (97.1 F) (Temporal) Resp 18 Ht 5' 1.81 (1.57 m) Wt 134 lb 0.6 oz (60.8 kg) LMP (LMP Unknown) SpO2 96% BMI 24.67 kg/m PHYSICAL EXAM General appearance: in no respiratory distress and acyanotic, alert, oriented times 3, and moderately ill Skin: warm and dry Pulmonary: Normal effort, no respiratory distress, no cyanosis Abdomen: guarded, midline incision with divine intact. Well approximated. Small amount of blood noted in JAIMIE surgery site drainage tube. Mucocutaneous junction not visible pouch intact, pouch with +gas and small amount of bowel sweat in pouch. Stoma is about 41mm round. Extremities: no cyanosis, clubbing or edema Right hip: Well approximated with steri-strips intact. No drainage present at this time. No surrounding erythema. LABS CBC: Lab Results Component Value Date WBC 13.0 (H) 11/08/2023 HGB 8.6 (L) 11/08/2023 HCT 25.7 (L) 11/08/2023 MCV 77.7 (L) 11/08/2023 PLT 595 (H) 11/08/2023 BMP: Lab Results Component Value Date NA 135 11/08/2023 K 2.7 (L) 11/08/2023 CL 105 11/08/2023 CO2 27 11/08/2023 BUN 4 (L) 11/08/2023 CREATININE 0.42 (L) 11/08/2023 PT/INR: No results found for: PROTIME , INR Prealbumin: No results found for: PREALBUMIN Albumin:No components found for: LABALBU Sed Rate:No results found for: SEDRATE Micro: No components found for: BC Assessment/Plan: LUQ colostomy status - empty pouch when half full - showed patient how to change a pouch on practice stoma today . Spoke with . Gave wound center number, to follow up in clinic for ostomy management education. Right hip: Surgical -Steri-strips in place -Cleanse with soap and water, do not scrub and leave MEREDITH Recommend to follow up at [facility] wound care center after hospital discharge. I personally obtained the shahid and critical portions of the history and physical exam. I reviewed the labs, imaging studies, and electronic medical record. I reviewed the chart documentation and discussed the patient with treatment team members. I have edited the note to reflect my clinical findings and my assessment and plan. Please note, the time of this note does not reflect the time I saw this patient today, but the time of this documentaton. Portions of this note including HPI, ROS, impression/plan, and examination may have been copied forward from admission to today as to provide important historical information essential in contributing to medical decision making. Documentation has been reviewed and edited as necessary to support clinical decision making for today's visit and to reflect my own independent evaluation of this patient. Decision making for today's visit and to reflect my own independent evaluation of this patient. Images from the original note were not included. Hospitalist Progress Note 11/08/2023 Subjective: Admit Date: 11/03/2023 PCP: LEONID DEE MD Room#: [facility] A Interval History: Patient is lying on the bed, still complaining of some abdominal pain No nausea or vomitings No fever chills or rigors No other significant overnight issues. Adult diet Full liquid 24HR INTAKE/OUTPUT: Intake/Output Summary (Last 24 hours) at 11/08/2023 1424 Last data filed at 11/08/2023 0732 Gross per 24 hour Intake 1500 ml Output 120 ml Net 1380 ml Past Medical History: Past Medical History: Diagnosis Date Arthritis COPD exacerbation (HCC) 06/20/2022 Pneumonia 03/04/2019 Primary hypertension 06/24/2023 LABS: CBC: Recent Labs 11/06/23 1033 11/07/23 0346 11/08/23 0451 WBC 17.4* 11.8* 13.0* RBC 2.96* 2.91* 3.31* HGB 7.6* 7.5* 8.6* HCT 23.5* 23.3* 25.7* MCV 79.5* 80.2 77.7* RDW 18.6* 18.8* 18.4* PLT 571* 555* 595* BMP: Recent Labs 11/06/23 1033 11/07/23 0346 11/08/23 0451 NA 139 133* 135 K 3.6 3.5 2.7* CL 112* 108* 105 CO2 24 23 27 BUN 20* 16 4* CREATININE 0.64 0.44* 0.42* GLUCOSE 87 143* 120* CALCIUM 8.1* 7.8* 8.0* ANIONGAP 3 3 3 LIVER PROFILE: Recent Labs 11/06/23 1033 11/07/23 0346 11/08/23 0451 AST 41 29 30 ALT 20 16 15 BILITOT 0.3 0.3 0.5 ALKPHOS 80 68 78 PROT 5.6* 5.2* 5.6* PT/INR: No results for input(s): PROTIME , INR in the last 72 hours. CARDIAC ENZYMES: No results for input(s): TROPONINI in the last 72 hours. Procalcitonin: No results found for: PROCAL COVID-19 PCR: No results for input(s): COVID19 in the last 72 hours. Objective: Vitals: BP 152/99 (BP Location: Right arm, Patient Position: Lying) Pulse 91 Temp 36.2 C (97.1 F) (Temporal) Resp 18 Ht 5' 1.81 (1.57 m) Wt 134 lb 0.6 oz (60.8 kg) LMP (LMP Unknown) SpO2 96% BMI 24.67 kg/m Pulse Ox: SpO2 Av.3 % Min: 96 % Max: 97 % Supplemental O2: O2 Flow Rate (L/min): 3 L/min Physical Exam Vitals and nursing note reviewed. HENT: Mouth/Throat: Pharynx: Oropharynx is clear. Eyes: Conjunctiva/sclera: Conjunctivae normal. Cardiovascular: Rate and Rhythm: Normal rate. Heart sounds: No murmur heard. Pulmonary: Effort: Pulmonary effort is normal. No respiratory distress. Breath sounds: No wheezing or rales. Abdominal: General: Bowel sounds are normal. Tenderness: abdominal tenderness. Comments: Ostomy site appears healthy- no surrounding cellulitis. Scant amount of blood in surgical site drainage tube Musculoskeletal: Comments: Right hip lesion dry and intact Skin: General: Skin is warm. Capillary Refill: Capillary refill takes less than 2 seconds. Neurological: General: No focal deficit present. Mental Status: She is alert. Medications: enoxaparin, 40 mg, SubCUTAneous, Daily ertapenem, 1,000 mg, IntraVENous, q24h Huyxeztxafy-Notlxxuzt-Zmxvpv, 1 puff, Inhalation, Daily [Held by provider] gabapentin, 300 mg, Oral, BID potassium chloride, 10 mEq, IntraVENous, q1h sodium chloride 0.9%, 10 mL, IntraVENous, 2 times per day Assessment Intractable abdominal pain. S/p left-sided sigmoid diverticulitis s/p Ronni procedure on 11/04. E. coli bacteremia. Severe protein calorie malnutrition. History of COPD. Anxiety/depression. Chronic pain syndrome. Left-sided total hip arthroplasty on 10/16. Plan S/p partial left colectomy with end ostomy and Ronni procedure on 11/04 tolerated procedure well. Still complaining of some abdominal pain-continue symptomatic treatment Continuing ertapenem for E. coli bacteremia. Follow-up blood cultures ordered on 11/0859-[id number]-[id number] on results. Advance to full liquids, continue protein supplements with Ensure 3 times daily with meals. Repeat potassium is 2.7-continue to replace, follow-up with a.m. labs Follow-up CBC BMP ordered. PT OT. - am labs, replace lytes prn - PT/OT/CM/SW - delirium precautions: increase activity, limit nighttime disturbances, and avoid anticholinergic meds, benzos, etc - DVT prophylaxis: enoxaparin and encourage ambulation Advance Directive: Full Code Anticipated Discharge - Date -1 to 2 days - Location - Skilled Facility - Pending the following -clinical improvement Total time spent (which include face to face and non face to face encounters) : 25 minutes Extended Emergency Contact Information Primary Emergency Contact: Deja Cha Mobile Relation: Spouse Iftikhar Dai MD Division of Hospitalist Medicine [facility] Surgery Post Op Progress Note PATIENT NAME: Priscila Cha TODAY'S DATE: 11/08/2023 SUBJECTIVE: Follow up s/p Ronni procedure. Patient seen this morning resting in bed, complains of abdominal pain however appears comfortable. She denies fever/chills or nausea/vomiting. Patient is tolerating CLD but notes poor appetite. She has worked with the therapy team this morning. No overnight events noted. Pain controlled Yes Other Complaints No Flatus/BM/or Ostomy function Yes OBJECTIVE: VITALS: BP 152/99 (BP Location: Right arm, Patient Position: Lying) Pulse 91 Temp 36.2 C (97.1 F) (Temporal) Resp 18 Ht 5' 1.81 (1.57 m) Wt 134 lb 0.6 oz (60.8 kg) LMP (LMP Unknown) SpO2 96% BMI 24.67 kg/m INTAKE/OUTPUT: I/O last 3 completed shifts: In: - (0 mL/kg) Out: 205 (3.4 mL/kg) [Drains:205] Weight: 60.8 kg I/O this shift: In: 1500 [P.O.:150; I.V.:1150; IV Piggyback:200] Out: - CONSTITUTIONAL: Awake and Alert ABDOMEN: soft. Ostomy present with pink stoma, gas and bowel sweat in bag INCISION: clean, dry, no drainage, divine intact Data: CBC: Recent Labs 11/06/23 1033 11/07/23 0346 11/08/23 0451 WBC 17.4* 11.8* 13.0* HGB 7.6* 7.5* 8.6* HCT 23.5* 23.3* 25.7* PLT 571* 555* 595* BMP: Recent Labs 11/06/23 1033 11/07/23 0346 11/08/23 0451 NA 139 133* 135 K 3.6 3.5 2.7* CL 112* 108* 105 CO2 24 23 27 BUN 20* 16 4* CREATININE 0.64 0.44* 0.42* GLUCOSE 87 143* 120* Hepatic: Recent Labs 11/06/23 1033 11/07/23 0346 11/08/23 0451 AST 41 29 30 ALT 20 16 15 BILITOT 0.3 0.3 0.5 ALKPHOS 80 68 78 ASSESSMENT AND PLAN: Ms. Cha is a 67 y/o F who is s/p Partial left colectomy with end ostomy, (Mock's procedure) POD#4 - WBC 13.0, Hgb 8.6 - Trial FLD - IV atbx continue ertapenem. Culture of abdominal wall at time of surgery with ESBL and enterococcus. Enterococcus appropriately treated with Zosyn and Vancomycin. ID stewardship following - USACS medical management, appreciate recs and K+ replacement - DVT ppx: Lovenox - Ostomy SPECIAL EFFECTS TECHNICIAN following - PT/OT evaluation- recent LENNOX, appreciate therapy recs- SNF at present - OOB with assist - Pain control: trial PO first, suggest Toradol Disposition: Patient POD#4 and complains of continued abdominal pain however is willing to continue to work with therapy- encourage. Trial FLD. Will continue to advance diet as bowel function improves. SATINDER Solorzano Nutrition Assessment Type and Reason for Visit: Reassess Nutrition Recommendations/Plan: Advance diet as medically able -suggest low fiber. diet advanced to full liquids today noted -per mnt protocol will initiate Ensure Clear bid (240 kcals 8 gm protein) and Ensure Plus daily (350 kcals, 20 gm protein) RD to monitor po intakes, labs, weights; follow up weekly Malnutrition Assessment: Malnutrition Status: Severe malnutrition as previously assessed per RD Context: Acute Illness Findings of the 6 clinical characteristics of malnutrition: Energy Intake: 50% or less of estimated energy requirements for 5 or more days Weight Loss: Greater than 5% over 1 month Body Fat Loss: Mild body fat loss Orbital, Buccal region Muscle Mass Loss: Mild muscle mass loss Clavicles (pectoralis & deltoids), Temples (temporalis) Fluid Accumulation: Unable to assess [employer] Strength: Not Performed Nutrition Assessment: 67 y.o. female s/p partial left colectomy with end ostomy, (Ronni's procedure). recent LENNOX 10/16/23. pt reports not eating much due to abdominal pain, denies n/v at this time, pt on clear liquids on visit today agreeable to trial Ensure Clear. Estimated Daily Nutrient Needs: Energy Requirements Based On: Kcal/kg Weight Used for Energy Requirements: [place] Weight for Energy Calculation (kg): 50 kg Total Energy Requirements (kcals/day): 4531-7364 (25-30 kcal/kg IBW) Weight Used for Protein Requirements: [place] Weight in Kg Used for Protein Requirements: 50 kg Estimated Total Protein (g/day): 60-90 (1.2-1.8 g protein/kg IBW) Estimated Daily Total Fluid (ml/day): per MD Nutrition Related Findings: no edema, i&0 -20, no new wt to report on, abd soft hypoactive bs, ostomy with minimal output per records Wound Type: Surgical Incision (midline. LENNOX incision not observed) Current Nutrition Therapies: Adult diet Full liquid Current Oral Intake Average Meal Intake: 26-50% (clear liquids; diet advanced to full liquids today after visit) Average Supplements Intake: None Ordered Anthropometric Measures: Height: 157 cm (5' 1.81 ) Current Body Weight: 60.8 kg (134 lb 0.6 oz) Weight Source: Bed Scale Admission Body Weight: 60.8 kg (134 lb 0.6 oz) Usual Body Weight: 64.9 kg (143 lb) (per EMR review--> 134# 10/30/23; 134.8# 09/27/23; 144# 05/01/23; 143# 09/26/22) % Weight Change (Calculated): -6.3 [place] Body Weight (lbs) (Calculated): 109 lbs [place] Body Weight (Kg) (Calculated): 50 kg % [place] Body Weight (Calculated): 123 % BMI (kg/m2) (Calculated): 24.7 Weight Adjustment For: No Adjustment BMI Categories: Overweight (BMI 25.0-29.9) Nutrition Diagnosis: Severe malnutrition, In context of acute illness or injury related to increase demand for energy/nutrients, inadequate protein-energy intake as evidenced by poor intake prior to admission, weight loss greater than or equal to 5% in 1 month, mild loss of subcutaneous fat, mild muscle loss Altered GI function related to altered GI structure as evidenced by (s/p Ex Lap with sigmoid resection and end colostomy creation 11/04/23) Nutrition Interventions: Nutrition Education/Counseling: Education not appropriate (will need Low FIber diet education prior to discharge) Coordination of Nutrition Care: Continue to monitor while inpatient Plan of Care discussed with: patient Goals: Previous Goal Met: Progressing toward Goal(s) Goals: PO intake 75% or greater, prior to discharge Nutrition Monitoring and Evaluation: Behavioral-Environmental Outcomes: None Identified Food/Nutrient Intake Outcomes: Diet Advancement/Tolerance, Food and Nutrient Intake, Supplement Intake Physical Signs/Symptoms Outcomes: Biochemical Data, GI Status, Nausea or Vomiting, Fluid Status or Edema, Hemodynamic Status, Nutrition Focused Physical Findings, Skin, Weight Discharge Planning: Too soon to determine Hyacinth Mosley RD Contact: *[phone] or via Secure Chat Images from the original note were not included. OCCUPATIONAL THERAPY [facility] Treatment Note Name/MRN: Priscila Cha ([id number]) Date of : 1955 Age: 67 y.o. Room/Bed: B1-155/B1-155 A Visit #: 1 out of 7 visits Discharge Recommendation: Half-Way Facility Prior Level of Function ADL Assistance: Pt independent prior to L LENNOX, now requires assist Ambulation Assistance: Prior to L LENNOX pt ambulated with no device, pt now ambulates with fww Transfer Assistance: Independent Assessment Pt supine in bed. Pt c/o abdominal pain with sitting up and requiring Max encouragement to participate in OT tx. Pt able to recall all abdominal and hip precautions prior to mobility. Min A for bed mobility from supine to EOB for help with trunk control and bringing legs to EOB. She required Min A for STS from EOB to FWW, requiring Min VC for safety and proper use of FWW. Min A for STS <> bedside commode for balance and stability, with pt performing pericare. Min A for functional mobility from bedside commode to sink. Pt able to stand at sink for approx 3 min while completing UB grooming tasks with Min A for stability. Pt completed all other grooming tasks with SBA at sink at seated level d/t fatigue and pain in abdomin. Pt is limited by abdominal pain, impaired balance and endurance. Pt should benefit from skilled OT services in order to increase safety and independence in occupational participation. OT is recommending SNF upon discharge. Subjective Pt supine in bed upon arrival. Per RN, pt okay to see. Pt pleasant but required Max encouragement to participate in OT tx. Pain: 0-10 pain scale: 7/10 Location: [facility] Medical Precautions: Contact Proper PPE donned/doffed in accordance with facility standards. Fall Risk: Adams Fall Risk Score: 45 (High Risk) Precautions/Restrictions: Left LE Weight Bearing: Weight Bearing As Tolerated Hip Precautions: Posterior Hip Precautions Other Position/Activity Restriction: abdominal precautions Lines/Drains/Airways: NG tube, JAIMIE drain Family/Caregiver Present: none Objective ADLs Grooming: Min Assist UE Bathing: SBA UE Dressing: SBA Toileting: Min Assist Min A for STS <> bedside commode for balance and stability, with pt performing pericare while standing. Pt able to stand at sink for approx 3 min while completing UB grooming tasks with Min A for stability. Pt completed all other grooming tasks with SBA at sink at seated level d/t fatigue and pain in abdomin. Pt required Min A for UB dressing for assist with gown management. Bed Mobility Supine to sit: Min Assist Sit to supine: Mod Assist Min A for bed mobility from supine to EOB with assist for trunk control. Pt required Mod A for bed mobility from sit to supine for assist with bringing legs up and trunk control. Transfers/Mobility Sit to stand: Min Assist Stand to sit: Min Assist Stand step: Min Assist Bedside commode: Min Assist Sitting balance: SBA Standing balance: Min Assist Functional mobility: Min Assist She required Min A for STS from EOB to FWW, requiring Min VC for safety and proper use of FWW. Min A for STS <> bedside commode for balance and stability, with pt performing pericare. SBA for sitting balance for safety. She required Min A for standing balance for balance and coordination d/t decreased activity tolerance. Pt completed functional mobility within room at Min A for safety balance. Min A for stand step transfer with Min VC required for positioning. Min A for stand to sit to EOB for controlled descent. Device(s) used: front wheeled walker and hospital bed Cognition -Pt with anxiety and some limiting behaviors. Plan Continue acute OT per plan of care. Safety/Education Safety Safety Devices in place: All fall risk precautions in place, call light within reach, left in bed, gait belt, patient at risk for falls, and nurse notified Restraints: No Education Education Given To: patient Education Provided: OT Role, Plan of Care, Precautions, ADL Adaptive Strategies, Transfer Training, Energy Conservation, Fall Prevention Education, and Benefits of Increasing Activity Education Method: Verbal, Demonstration, and Teach Back Barriers to Learning: None Education Outcome: Verbalized Understanding and Demonstrated Understanding AM-PAC AM-PAC Inpatient Daily Activity Raw Score: 17 ADL Inpatient CMS G-Code Modifier: CK Goals Patient Stated Goal: to be independent Encounter Problems Encounter Problems (Active) Balance Patient will tolerate standing for 3 minutes SBA at fww to allow increased independence in ADLs (Progressing) Start: 11/05/23 Expected End: 11/19/23 Dressing Upper Extremities Patient will complete upper body ADLs mod I. (Progressing) Start: 11/05/23 Expected End: 11/19/23 Dressings Lower Extremities Patient will complete lower body ADLs with SBA. (Slowly Progressing) Start: 11/05/23 Expected End: 11/19/23 Mobility Patient will demonstrate functional ambulation SBA with fww. (Progressing) Start: 11/05/23 Expected End: 11/19/23 Patient will increase strength in BUE to be able to increase strength required for transfers. (Progressing) Start: 11/05/23 Expected End: 11/19/23 Toileting Patient will complete toileting tasks at standard toilet with SBA. (Progressing) Start: 11/05/23 Expected End: 11/19/23 Transfers Patient will complete functional transfer with rolling walker with SBA in order to prepare for ambulation. (Progressing) Start: 11/05/23 Expected End: 11/19/23 Patient will perform bed mobility with SBA in order to improve independence and prepare for out of bed mobility. (Progressing) Start: 11/05/23 Expected End: 11/19/23 Therapy Time Individual Co-treatment Time In 0936 Time Out 1013 Minutes 37 Timed Code Treatment Minutes: 37 Minutes (1 ADL 1 THER ACT) YARELY Alcantar Images from the original note were not included. Hospitalist Progress Note 11/07/2023 Subjective: Admit Date: 11/03/2023 PCP: LEONID DEE MD Room#: [facility] A Interval History: Patient is lying on the bed, still complaining of some abdominal pain No nausea or vomitings No fever chills or rigors No other significant overnight issues. Adult diet Clear liquid 24HR INTAKE/OUTPUT: Intake/Output Summary (Last 24 hours) at 11/07/2023 1655 Last data filed at 11/07/2023 0600 Gross per 24 hour Intake 200 ml Output 135 ml Net 65 ml Past Medical History: Past Medical History: Diagnosis Date Arthritis COPD exacerbation (HCC) 06/20/2022 Pneumonia 03/04/2019 Primary hypertension 06/24/2023 LABS: CBC: Recent Labs 11/06/23 1033 11/07/23 0346 WBC 17.4* 11.8* RBC 2.96* 2.91* HGB 7.6* 7.5* HCT 23.5* 23.3* MCV 79.5* 80.2 RDW 18.6* 18.8* PLT 571* 555* BMP: Recent Labs 11/06/23 1033 11/07/23 0346 NA 139 133* K 3.6 3.5 CL 112* 108* CO2 24 23 BUN 20* 16 CREATININE 0.64 0.44* GLUCOSE 87 143* CALCIUM 8.1* 7.8* ANIONGAP 3 3 LIVER PROFILE: Recent Labs 11/06/23 1033 11/07/23 0346 AST 41 29 ALT 20 16 BILITOT 0.3 0.3 ALKPHOS 80 68 PROT 5.6* 5.2* PT/INR: No results for input(s): PROTIME , INR in the last 72 hours. CARDIAC ENZYMES: No results for input(s): TROPONINI in the last 72 hours. Procalcitonin: No results found for: PROCAL COVID-19 PCR: No results for input(s): COVID19 in the last 72 hours. Objective: Vitals: BP (!) 164/72 Pulse 84 Temp 36.4 C (97.5 F) (Temporal) Resp 21 Ht 5' 1.81 (1.57 m) Wt 134 lb 0.6 oz (60.8 kg) LMP (LMP Unknown) SpO2 95% BMI 24.67 kg/m Pulse Ox: SpO2 Av % Min: 95 % Max: 99 % Supplemental O2: O2 Flow Rate (L/min): 3 L/min Physical Exam Vitals and nursing note reviewed. HENT: Mouth/Throat: Pharynx: Oropharynx is clear. Eyes: Conjunctiva/sclera: Conjunctivae normal. Cardiovascular: Rate and Rhythm: Normal rate. Heart sounds: No murmur heard. Pulmonary: Effort: Pulmonary effort is normal. No respiratory distress. Breath sounds: No wheezing or rales. Abdominal: General: Bowel sounds are normal. Tenderness: abdominal tenderness. Comments: Ostomy site appears healthy- no surrounding cellulitis. Scant amount of blood in surgical site drainage tube Musculoskeletal: Comments: Right hip lesion dry and intact Skin: General: Skin is warm. Capillary Refill: Capillary refill takes less than 2 seconds. Neurological: General: No focal deficit present. Mental Status: She is alert. Medications: enoxaparin, 40 mg, SubCUTAneous, Daily ertapenem, 1,000 mg, IntraVENous, q24h Mpmcqbsyuyg-Ptszcowbn-Xnlkng, 1 puff, Inhalation, Daily [Held by provider] gabapentin, 300 mg, Oral, BID sodium chloride 0.9%, 10 mL, IntraVENous, 2 times per day Assessment Intractable abdominal pain. S/p left-sided sigmoid diverticulitis s/p Ronni procedure on 11/04. E. coli bacteremia. Severe protein calorie malnutrition. History of COPD. Anxiety/depression. Chronic pain syndrome. Left-sided total hip arthroplasty on 10/16. Plan S/p partial left colectomy with end ostomy and Ronni procedure on 11/04 tolerated procedure well. Still complaining of some abdominal pain-continue symptomatic treatment Continuing ertapenem for E. coli bacteremia. Follow-up blood cultures ordered on [id number] on results. Advance to full liquids, continue protein supplements with Ensure 3 times daily with meals. Hypokalemia-continue to replace Follow-up CBC BMP ordered. PT OT. - am labs, replace lytes prn - PT/OT/CM/SW - delirium precautions: increase activity, limit nighttime disturbances, and avoid anticholinergic meds, benzos, etc - DVT prophylaxis: enoxaparin and encourage ambulation Advance Directive: Full Code Anticipated Discharge - Date -1 to 2 days - Location - Skilled Facility - Pending the following -clinical improvement Total time spent (which include face to face and non face to face encounters) : 25 minutes Extended Emergency Contact Information Primary Emergency Contact: Deja Cha Mobile Relation: Spouse Iftikhar Dai MD Division of Hospitalist Medicine [facility] Surgery Post Op Progress Note PATIENT NAME: Priscila Cha TODAY'S DATE: 11/07/2023 SUBJECTIVE: General Surgery Follow up on Mock procedure. Continued complaints of abdominal pain requesting the iV narcotic. No N/V not much of appetite. No fever/chills. Awaiting bowel function Pain controlled YES/NO: Yes Other Complaints YES/NO: No Flatus/BM/or Ostomy function YES/NO: Yes OBJECTIVE: VITALS: BP (!) 164/72 Pulse 84 Temp 36.4 C (97.5 F) (Temporal) Resp 21 Ht 5' 1.81 (1.57 m) Wt 134 lb 0.6 oz (60.8 kg) LMP (LMP Unknown) SpO2 95% BMI 24.67 kg/m INTAKE/OUTPUT: I/O last 3 completed shifts: In: 950 (15.6 mL/kg) [P.O.:200; I.V.:200 (3.3 mL/kg); IV Piggyback:550] Out: 1585 (26.1 mL/kg) [Urine:700 (0.3 mL/kg/hr); Emesis/NG output:650; Drains:235] Weight: 60.8 kg No intake/output data recorded. CONSTITUTIONAL: awake and alert ABDOMEN: soft, nondistended, and tenderness incision site INCISION: clean, dry, no drainage. JAIMIE SS. Ostomy healthy appearing minimal SS drainage within bag. Data: CBC: Recent Labs 11/06/23 1033 11/07/23 0346 WBC 17.4* 11.8* HGB 7.6* 7.5* HCT 23.5* 23.3* PLT 571* 555* BMP: Recent Labs 11/06/23 1033 11/07/23 0346 NA 139 133* K 3.6 3.5 CL 112* 108* CO2 24 23 BUN 20* 16 CREATININE 0.64 0.44* GLUCOSE 87 143* Hepatic: Recent Labs 11/06/23 1033 11/07/23 0346 AST 41 29 ALT 20 16 BILITOT 0.3 0.3 ALKPHOS 80 68 ASSESSMENT AND PLAN: Ms. Cha is a 67 y/o F who is s/p Partial left colectomy with end ostomy, (Mock's procedure) POD#3 - WBC 11.8, Hgb 7.5: monitor - Continue CLD - IV atbx continue ertapenem. Culture of abdominal wall at time of surgery with ESBL and enterococcus. Enterococcus appropriately treated with Zosyn and Vancomycin. - PRN pain/nausea medication - USACS medical management, appreciate recs - DVT ppx: Lovenox - Ostomy SPECIAL EFFECTS TECHNICIAN consult - PT/OT evaluation- recent LENNOX, appreciate therapy recs - OOB with assist. Pain control trial PO first will add toradol Disposition: Patient POD#3 and complains of continued abdominal pain however is willing to continue to work with therapy- encourage. Monitor labs. Awaiting further ostomy output prior to advancement. Fernando Brady APRN - SURINDER Images from the original note were not included. PHYSICAL THERAPY [facility] Treatment Note Name/MRN: Priscila Cha ([id number]) Date of : 1955 Age: 67 y.o. Room/Bed: B1-155/B1-155 A Visit #: 2 out of 5 visits Discharge Recommendation: Half-Way Facility Equipment Needed: No Prior Level of Function ADL Assistance: Independent and prior to L Lennox, now required assist Ambulation Assistance: Independent Device(s) used: none and front wheeled walker; no device prior to LENNOX, now uses FWW Transfer Assistance: Independent Assessment Pt presents with increased functional mobility but still limited by pain. Pt requires min A x 1 for bed mobility, mod A x 1 for transfers and min A x 1 for ambulation within room. Pt requires extended time to complete. RA trial and able to maintain 95%. Pt only able to recall 1/3 posterior hip precautions and requires assist for the rest. Pt is still functioning below baseline and expected to benefit from continued therapy in order to increase overall independence. Subjective Pt is agreeable to therapy. Observation: Per RN okay to see. Pain: RN managing pain. Medical Precautions: Contact Proper PPE donned/doffed in accordance with facility standards. Fall Risk: Adams Fall Risk Score: 45 (High Risk) Precautions/Restrictions: Left LE Weight Bearing: Weight Bearing As Tolerated Hip Precautions: Posterior Hip Precautions Other Position/Activity Restriction: abdominal precautions Lines/Drains/Airways: NG tube, JAIMIE drain Overall Cognitive Status: WNL Overall Orientation Status: Oriented x4 Family/Caregiver Present: none Objective Ambulation Ambulation 1 Assistive device(s) used: front wheeled walker Assist level: Min Assist Distance (ft): 30ft x 1 Quality of gait: Demonstrates a short step to pattern, decreased step height and length, forward flexed posture, increased B UE reliance with cues to correct, slight unsteadiness, very slow [place] no LOB noted Transfers/Mobility Sit to stand: Mod Assist Stand to sit: Mod Assist Pt requires assist to recall precautions proper to mobility. Pt requires cues for proper hand and foot placement with ascends and descends. Pt requires assist to control eccentrically. Device(s) used: front wheeled walker Exercises Exercises Comments: Initiated ankle pumps, glut sets and quad sets. Bed Mobility Supine to sit: Min Assist Sit to supine: sitting in chair post session HOB elevated and use of bed rails. Pt requires verbal cues for sequence. Pt requires physical assist for trunk elevation with extended time. Plan Continue acute PT per plan of care. Safety/Education Safety Safety Devices in place: All fall risk precautions in place, call light within reach, left in chair, gait belt, patient at risk for falls, nurse notified, and no alarms engaged upon entry Restraints: No Education Education Given To: patient Education Provided: PT Role, PT Goals, Gait Training, Plan of Care, Home Exercise Program, Precautions, Transfer Training, Equipment, Discharge Recommendations, and Benefits of Increasing Activity Education Method: Verbal, Demonstration, and Teach Back Barriers to Learning: None Education Outcome: Verbalized Understanding and Demonstrated Understanding Outcome Measures AM-PAC AM-PAC Inpatient Mobility Raw Score (No Stairs) : 12 Goals Patient Stated Goal: Pt did not state Encounter Problems Encounter Problems (Active) Exercise Patient will complete lower extremity exercises for 1-2 sets / 5-10 reps in order to improve strength and activity tolerance for mobility. (Initiated) Start: 11/05/23 Expected End: 11/12/23 Mobility Patient will ambulate 50 feet with SBA and rolling walker in order to improve safety and independence with mobility. (Progressing) Start: 11/05/23 Expected End: 11/12/23 Patient will ascend and descend 12 stairs with one railing and CGA in order to safely negotiate home. (Not Addressed) Start: 11/05/23 Expected End: 11/12/23 Pain - Adult Transfers Patient will perform bed mobility with SBA in order to improve independence and prepare for out of bed mobility. (Progressing) Start: 11/05/23 Expected End: 11/12/23 Patient will complete functional transfer with rolling walker with SBA in order to prepare for ambulation. (Progressing) Start: 11/05/23 Expected End: 11/12/23 Therapy Time Individual Co-treatment Time In 08 Time Out 0833 Minutes 24 Timed Code Treatment Minutes: 24 Minutes (1 ther act, 1 gait) Yelitza Mathew PTA Images from the original note were not included. Family Communication Number Called: [phone] Name of Designated Family Base Draw Operator: Deja Cha Relationship to Patient: Spouse Phone Call Outcome: Spoke with Individual Family Base Draw Operator Updated on the Following: Operative details, post-operative expectations, clinical updates, and future course of recovery. Deja was educated that we are progressing diet, awaiting further bowel function, and managing pain. SNF recommendation reviewed with him and we are optimistic to progress with therapy and regain strength to possibly go home with [facility]. All questions answered and Deja is appreciative of call. IMS Dr Jessica Khanna notified by secure message of Bps of 176/99 and 176/97 Pharmacy Vancomycin Consult Follow-Up Note Non-[employer] Patients Current Dosinmg Q12 CREATININE Date Value Ref Range Status 11/06/2023 0.64 0.52 - 1.04 mg/dL Final 06/22/2022 0.73 0.52 - 1.25 mg/dL Final UREA NITROGEN Date Value Ref Range Status 11/06/2023 20 (H) 7 - 17 mg/dL Final Auto WBC Date Value Ref Range Status 11/06/2023 17.4 (H) 3.6 - 10.7 10*3/uL Final Ht Readings from Last 1 Encounters: 11/05/23 1.57 m (5' 1.81 ) Wt Readings from Last 1 Encounters: 11/04/23 60.8 kg (134 lb 0.6 oz) Body mass index is Body mass index is 24.67 kg/m . Random: 11.3 mcg/ml drawn correctly at 11/06/23 1033 Calculated AUC: 444 mg/L.hr Assessment/Plan: Calculated AUC is therapeutic at 444 mg/L.hr. Will continue dose and continue to follow. Images from the original note were not included. PHYSICAL THERAPY [facility] Treatment Note Name/MRN: Priscila Cha ([id number]) Date of : 1955 Age: 67 y.o. Room/Bed: B1-155/B1155 A Visit #: 1 out of 5 visits Discharge Recommendation: Half-Way Facility Equipment Needed: No Prior Level of Function ADL Assistance: Independent and prior to L Lennox, now required assist Ambulation Assistance: Independent Device(s) used: none and front wheeled walker; no device prior to LENNOX, now uses FWW Transfer Assistance: Independent Assessment Pt demonstrating decreased tolerance to activity with increased pain. Pt demonstrating decreased ability to perform exercises with verbal and tactile cueing as well as assist. Pt is not at a functional level and will benefit from current recommendation to improve strength, activity tolerance and functional mobility with decreased pain. Subjective Pt agreeable to therapy. Pt reports awareness of need to get up. Observation: colostomy bag,drain, candelaria wick, O2 Vitals BP 174/99 taken by nursing Pain: 0-10 pain scale: 10/10 medicated by nursing prior to treatment Location: abdomin Medical Precautions: Contact Proper PPE donned/doffed in accordance with facility standards. Fall Risk: Adams Fall Risk Score: 45 (High Risk) Precautions/Restrictions: Left LE Weight Bearing: Weight Bearing As Tolerated Hip Precautions: Posterior Hip Precautions Other Position/Activity Restriction: abdominal precautions Lines/Drains/Airways: JAIMIE drain Overall Cognitive Status: Exceptions - Arousal/alertness: delayed responses to stimuli - Following commands: follows one step commands with increased time and follows one step commands with repetition - Attention span: attends with cues to redirect Overall Orientation Status: Oriented x4 Family/Caregiver Present: spouse Objective Exercises Exercises Quad Sets: 1 set / 10 reps in supine B LE with increased verbal and tactile cueing to complete task properly Heelslides: 1 set / 5 reps on R LE with verbal and tactile cueing to complete Gluteal Sets: 1 set / 5 reps in supine B LE with weak contractions Ankle Pumps: 1 set / 10 reps in supine B LE Comments: Exercises performed to initiate strengthening,flexibility and activity tolerance for mobility with poor ability to follow direction/stay on task. Increased time needed to perform with pt declining further activity due to pain in abdomen which she just received pain meds for by nursing Plan Continue acute PT per plan of care. Safety/Education Safety Safety Devices in place: All fall risk precautions in place, call light within reach, left in bed, patient at risk for falls, and nurse notified Restraints: No Education Education Given To: patient and spouse Education Provided: PT Role, PT Goals, Plan of Care, and Home Exercise Program Education Method: Verbal, Demonstration, and Teach Back Barriers to Learning: Cognition Education Outcome: Continued Education Needed Outcome Measures AM-PAC AM-PAC Inpatient Mobility Raw Score (No Stairs) : 5 Goals Patient Stated Goal: Pt did not state Encounter Problems Encounter Problems (Active) Exercise Patient will complete lower extremity exercises for 1-2 sets / 5-10 reps in order to improve strength and activity tolerance for mobility. (Progressing) Start: 11/05/23 Expected End: 11/12/23 Mobility Patient will ambulate 50 feet with SBA and rolling walker in order to improve safety and independence with mobility. (Not Addressed) Start: 11/05/23 Expected End: 11/12/23 Patient will ascend and descend 12 stairs with one railing and CGA in order to safely negotiate home. (Not Addressed) Start: 11/05/23 Expected End: 11/12/23 Transfers Patient will perform bed mobility with SBA in order to improve independence and prepare for out of bed mobility. (Not Addressed) Start: 11/05/23 Expected End: 11/12/23 Patient will complete functional transfer with rolling walker with SBA in order to prepare for ambulation. (Not Addressed) Start: 11/05/23 Expected End: 11/12/23 Therapy Time Individual Co-treatment Time In 1125 Time Out 1145 Minutes 20 Timed Code Treatment Minutes: 15 Minutes (ther ex) [place] PTA Rashida Dangelo SPECIAL EFFECTS TECHNICIAN notified that is at the bedside and wants to talk to the physician and wants to know why the patient is in isolation. Also, Rashida Dangelo notified that [address] reported that the patient pulled out NG last night and it remains out Surgery Post Op Progress Note PATIENT NAME: Priscila Cha TODAY'S DATE: 11/06/2023 SUBJECTIVE: Follow up s/p Ronni procedure. Patient seen this morning resting in bed, complains of continued incisional pain with positional change. Patient notes NGT was removed accidentally last night when rolling over. She denies fever/chills or nausea/vomiting, is wishing for more to eat today. Pain controlled Yes Other Complaints No Flatus/BM/or Ostomy function Minimal OBJECTIVE: VITALS: BP 148/98 (BP Location: Left arm, Patient Position: Lying) Pulse 87 Temp 36.4 C (97.6 F) (Temporal) Resp 17 Ht 5' 1.81 (1.57 m) Wt 134 lb 0.6 oz (60.8 kg) LMP (LMP Unknown) SpO2 98% BMI 24.67 kg/m INTAKE/OUTPUT: I/O last 3 completed shifts: In: 550 (9 mL/kg) [IV Piggyback:550] Out: 2340 (38.5 mL/kg) [Urine:1450 (0.7 mL/kg/hr); Emesis/NG output:650; Drains:240] Weight: 60.8 kg No intake/output data recorded. CONSTITUTIONAL: Awake and Alert ABDOMEN: soft. Ostomy present with small liquid in bag, stoma healthy-appearing INCISION: clean, dry, no drainage, divine intact Data: CBC: Recent Labs 11/03/23201011/04/23 0524 11/06/23 1033 WBC 16.6* 17.7* 17.4* HGB 10.9* 8.6* 7.6* HCT 33.3* 26.9* 23.5* PLT 886* 669* 571* BMP: Recent Labs 11/03/23201011/04/23 05 NA 134* 135 K 4.0 4.4 CL 99 108* CO2 27 22 BUN 21* 21* CREATININE 0.66 0.71 GLUCOSE 131* 156* Hepatic: Recent Labs 11/03/232010 AST 38 ALT 18 BILITOT 0.9 ALKPHOS 100 ASSESSMENT AND PLAN: Ms. Cha is a 67 y/o F who is s/p Partial left colectomy with end ostomy, (Mock's procedure) POD#2 - WBC 17.4, Hgb 7.6: monitor - NGT removed by patient, okay to trial CLD - IV atbx to continue at least until POD#4 - Watkins discontinue today - PRN pain/nausea medication - USACS medical management, appreciate recs - DVT ppx: Lovenox - Ostomy SPECIAL EFFECTS TECHNICIAN consult - PT/OT evaluation- recent LENNOX, appreciate therapy recs Disposition: Patient POD#2 and complains of continued abdominal pain however is willing to continue to work with therapy- encourage. Monitor labs. NGT removed. Ostomy with small liquid output, okay to trial CLD. Will advance diet as appropriate with continued return of bowel function. SATINDER Solorzano Arrived from [facility], via bed, to [facility] Images from the original note were not included. Hospitalist Progress Note 11/06/2023 Subjective: Admit Date: 11/03/2023 PCP: LEONID DEE MD Room#: B2-246/B2-246 B Brief Hospital course: Priscila is a 67 y.o. female with history of hypertension, COPD, arthritis, and a history of diverticulitis of sigmoid presented to the emergency with increased abdomen pain, fever, and chills on 11/03. In the ED she was found to have diffuse peritonitis, with CT scan showing perforation, adjacent abscess with pockets of free air. Labs showed LA 2.1, leukocytosis 16,000. General surgery took patient to the OR for partial left colectomy with end ostomy (Mock procedure), we were consulted for medical management. Blood cultures positive for E. Coli switched to Ertapenem. Interval History: Blood cultures on 11/03 showing gram negative rods per phone call from nurse. Not updated on labs yet. Culture showing E. Coli and antibiotic stewardship recommending Ertapenem. And DC Vancomycin for likely contaminated sample. Feels overwhelmed with everything at this time. Glad that NG tube was removed. Continue to wait return of bowel function prior to advancing diet. Discussed with nursing staff and all questions answered. NPO diet with enteral medications 24HR INTAKE/OUTPUT: Intake/Output Summary (Last 24 hours) at 11/06/2023 0917 Last data filed at 11/06/2023 0615 Gross per 24 hour Intake 550 ml Output 2235 ml Net -1685 ml Past Medical History: Past Medical History: Diagnosis Date Arthritis COPD exacerbation (HCC) 06/20/2022 Pneumonia 03/04/2019 Primary hypertension 06/24/2023 LABS: CBC: Recent Labs 11/03/23201011/04/23523 WBC 16.6* 17.7* RBC 4.23 3.36* HGB 10.9* 8.6* HCT 33.3* 26.9* MCV 78.8* 80.0 RDW 18.5* 18.2* PLT 886* 669* BMP: Recent Labs 11/03/23201011/04/23523 NA 134* 135 K 4.0 4.4 CL 99 108* CO2 27 22 BUN 21* 21* CREATININE 0.66 0.71 GLUCOSE 131* 156* CALCIUM 10.0 8.0* ANIONGAP 8 5 LIVER PROFILE: Recent Labs 11/03/232010 AST 38 ALT 18 BILITOT 0.9 ALKPHOS 100 PROT 6.8 PT/INR: Recent Labs 11/03/23 2104 PROTIME 13.1* INR 1.2* CARDIAC ENZYMES: Recent Labs 11/03/23201011/03/23 2328 11/04/23 0524 TROPONINI <0.012 <0.012 <0.012 Procalcitonin: No results found for: PROCAL COVID-19 PCR: No results for input(s): COVID19 in the last 72 hours. Objective: Vitals: BP (!) 191/99 (BP Location: Left arm, Patient Position: Lying) Pulse 87 Temp 36.4 C (97.6 F) (Temporal) Resp 17 Ht 5' 1.81 (1.57 m) Wt 134 lb 0.6 oz (60.8 kg) LMP (LMP Unknown) SpO2 98% BMI 24.67 kg/m Pulse Ox: SpO2 Av.3 % Min: 98 % Max: 99 % Supplemental O2: O2 Flow Rate (L/min): 4 L/min Physical Exam Vitals and nursing note reviewed. HENT: Mouth/Throat: Pharynx: Oropharynx is clear. Eyes: Conjunctiva/sclera: Conjunctivae normal. Cardiovascular: Rate and Rhythm: Normal rate. Heart sounds: No murmur heard. Pulmonary: Effort: Pulmonary effort is normal. No respiratory distress. Breath sounds: No wheezing or rales. Abdominal: General: Bowel sounds are normal. Tenderness: There is abdominal tenderness. Comments: Ostomy site appears healthy- no surrounding cellulitis. Scant amount of blood in surgical site drainage tube Small amount of dried blood along midline incision Musculoskeletal: General: Tenderness and signs of injury present. Comments: Right hip lesion dry and intact Skin: General: Skin is warm. Capillary Refill: Capillary refill takes less than 2 seconds. Neurological: General: No focal deficit present. Mental Status: She is alert. Medications: enoxaparin, 40 mg, SubCUTAneous, Daily Vvqxwpjqtge-Pmhjrcrex-Bzfcca, 1 puff, Inhalation, Daily [Held by provider] gabapentin, 300 mg, Oral, BID piperacillin-tazobactam, 3,375 mg, IntraVENous, q8h sodium chloride 0.9%, 10 mL, IntraVENous, 2 times per day vancomycin, 750 mg, IntraVENous, q12h Assessment Data: (CAT1) Reviewed 3 or more notes from different specialty or health system (each=1). (CAT1) Reviewed 3 or more labs/studies ordered by another provider not previously counted (each=1, panels count as 1). (CAT1) Clinical information was necessarily obtained from an independent historian. (LOW: 2x CAT1 or independent historian MOD: 3x CAT1 or 1x CAT3 EXTENSIVE: 3x CAT1 and 1x CAT3) Acute, acute on chronic, unstable/uncontrolled chronic problems/diagnoses: Abdomen pain 2/2 ruptured sigmoid diverticulitis s/p mock procedures. NG removed Advance diet per surgery orderes. E. Coli bactermia Switch Piptaz and Vancomycin to Ertepenem Vancomycin discontinued as Coagulase-negative Staph - likely an contamination according to Antibiotic stewardship Left sided Total hip arthroplasty on 10/16/2023 [place] intact Encourage patient to work with PT Anxiety Klonapin 0.5mg PO BID -> converted to 1mg Ativan IV BID - > will put back to oral once patient able to tolerate oral HOLD gabapentin and trazadone due to NPO with no medications - > resume later Asthma -OK to use home trillogy Normocytic anemia Severe malnutrition - surgery on 11/04 - last meal Goal PN: 1250 kcal, 90 g protein (25 kcal, 1.8 g protien/kg IBW) --> 375 kcal from lipids, 360 kcal from AA, 515 kcal from dextrose Plan As a result of the above findings & factors, the following mgmt was pursued: - Increased dilaudid dosage > helpful for pain management. Encourage up to chair today, anxiety medications prn, once tolerating PO -> add oxycodone to alternate with IV medications for better pain control - may need TPN or tube feeds if prolonged NPO - Hgb stable - transfuse if drop <7 - encourage ambulation and working with PT for recent left hip arthroplasty to ensure no complications from that surgery - am labs, replace lytes prn - PT/OT/CM/SW - delirium precautions: increase activity and limit nighttime disturbances - DVT prophylaxis: enoxaparin and encourage ambulation Complexity: Acute illness or injury posing a threat to life or body function (HIGH). Risk: Admission to hospital-level care was considered or occurred (HIGH). Consult to surgery for major surgery, or minor surgery with identified patient or procedural risk factors, was considered or occurred (MOD). Advance Directive: Full Code Anticipated Discharge - Date - TBD - Location - home vs home health - Pending the following - clinical improvement Total time spent (which include face to face and non face to face encounters) : 45 minutes Toxic drug monitoring/narrow therapeutic index drug monitoring : # Drug name : post-operative lovenox # Route administered : subq # Method of monitoring : monitor for bleed. Extended Emergency Contact Information Primary Emergency Contact: Deja Cha Mobile Relation: Spouse Ирина Toledo MD Division of Hospitalist Medicine [facility] Nutrition Assessment Type and Reason for Visit: Initial Nutrition Recommendations/Plan: NPO with NGT to LIWS at time of assessment ADAT per GenSurg Should alternative nutrition route be desired, would recommend: Goal PN: 1250 kcal, 90 g protein (25 kcal, 1.8 g protien/kg IBW) --> 375 kcal from lipids, 360 kcal from AA, 515 kcal from dextrose Obtain actual bed or standing scale weight as able for most accurate anthropometric data RDN to continue to monitor weekly: fluid accumulation, weight, skin integrity, trends in lab values, improvement in clinical status and ability to advance diet, discharge planning. Malnutrition Assessment: Malnutrition Status: Severe malnutrition Context: Acute Illness Findings of the 6 clinical characteristics of malnutrition: Energy Intake: 50% or less of estimated energy requirements for 5 or more days Weight Loss: Greater than 5% over 1 month Body Fat Loss: Mild body fat loss Orbital, Buccal region Muscle Mass Loss: Mild muscle mass loss Clavicles (pectoralis & deltoids), Temples (temporalis) Fluid Accumulation: Unable to assess [employer] Strength: Not Performed Nutrition Assessment: 67 year old woman with PMHx: COPD, arthritis, PNA, and most recently underwent s/p Right total hip arthroplasty at [facility] on 10/16/23. Presented to [facility] with persistent and worsening RUQ pain for two days CLAM SHUCKER. +Poor appetite d/t pain. Significant labs on admit: WBC(16.6), Hgb(10.9), Hct(33.3), Na+(134), BUN(21), INR(1.2). Abdominal CT obtained on admit showed: complicated diverticulitis of the sigmoid colon with small to moderate amount of free air in the abdomen and pelvis and developing abscess in the mid pelvis . GenSurg consulted and emergently underwent s/p exploratory laparotomy with sigmoid resection and end colostomy creation in lpn or medical assistant hours of 11/04/23. This morning remains NPO with NGT in place and pain controlled. +bowel sounds. Resting in bed at time of assessment with RN at bedside attempting to gain IV access. Per patient, poor oral intake over the past week, and previously eating less than normal since her hip surgery on 10/16. Recalls at baseline to eat three small meals , as she doesn t eat much . Provided much empathetic support and listening. Deferred NFPE at this time- visually observed mild to moderate muscle loss in upper body and upper extremities Estimated Daily Nutrient Needs: Energy Requirements Based On: Kcal/kg Weight Used for Energy Requirements: [place] Weight for Energy Calculation (kg): 50 kg Total Energy Requirements (kcals/day): 2516-8054 (25-30 kcal/kg IBW) Weight Used for Protein Requirements: [place] Weight in Kg Used for Protein Requirements: 50 kg Estimated Total Protein (g/day): 60-90 (1.2-1.8 g protein/kg IBW) Estimated Daily Total Fluid (ml/day): per MD Nutrition Related Findings: POD#1, NPO with NGT to LIWS. No edema or skin break down noted. Meka score=16. A+Ox4. -I/O balance. +bowel sounds. Meds and labs reviewed Wound Type: Surgical Incision (midline) Current Nutrition Therapies: NPO diet with enteral medications Current Oral Intake Average Meal Intake: NPO Average Supplements Intake: NPO Anthropometric Measures: Height: 157 cm (5' 1.81 ) Current Body Weight: 60.8 kg (134 lb 0.6 oz) Weight Source: Bed Scale Admission Body Weight: 60.8 kg (134 lb 0.6 oz) Usual Body Weight: 64.9 kg (143 lb) (per EMR review--> 134# 10/30/23; 134.8# 09/27/23; 144# 05/01/23; 143# 09/26/22) % Weight Change (Calculated): -6.3 [place] Body Weight (lbs) (Calculated): 109 lbs [place] Body Weight (Kg) (Calculated): 50 kg % [place] Body Weight (Calculated): 123 % BMI (kg/m2) (Calculated): 24.7 Weight Adjustment For: No Adjustment BMI Categories: Overweight (BMI 25.0-29.9) Nutrition Diagnosis: Severe malnutrition, In context of acute illness or injury related to increase demand for energy/nutrients, inadequate protein-energy intake as evidenced by poor intake prior to admission, weight loss greater than or equal to 5% in 1 month, mild loss of subcutaneous fat, mild muscle loss Altered GI function related to altered GI structure as evidenced by (s/p Ex Lap with sigmoid resection and end colostomy creation 11/04/23) Nutrition Interventions: Nutrition Education/Counseling: Education not appropriate (will need Low FIber diet education prior to discharge) Coordination of Nutrition Care: Continue to monitor while inpatient Plan of Care discussed with: RN and patient Goals: Goals: Initiate PO diet, by next RD assessment, Initiate nutrition support Nutrition Monitoring and Evaluation: Behavioral-Environmental Outcomes: None Identified Food/Nutrient Intake Outcomes: Diet Advancement/Tolerance Physical Signs/Symptoms Outcomes: Biochemical Data, GI Status, Nausea or Vomiting, Skin, Weight, Hemodynamic Status, Fluid Status or Edema Discharge Planning: Too soon to determine Lis Wei RDN, LDN, Contact: *[phone] Images from the original note were not included. OCCUPATIONAL THERAPY [facility] Initial Evaluation Name/MRN: Priscila Cha ([id number]) Evaluation Date: 11/05/2023 Date of : 1955 Admission Date: 11/03/2023 7:19 PM Age: 67 y.o. Room[facility]Bed: [facility] Discharge Recommendation: Half-Way Facility Assessment IMPRESSION: admitted 11/03 with abdominal pain. Pt found to have perforated sigmoid diverticulitis with feculent peritonitis. Pt underwent partial L colectomy with end ostomy by Dr. Lopez 11/04. Of note, pt underwent L LENNOX 10/16/23 with pt and spouse reporting WBAT with posterior hip precautions. Prior to admission/ L LENNOX, pt was independent in ADLs, functional transfers and mobility with no device. Pt now requires min-max A for ADLs, and mod A x2 for bed mobility with CGA for sitting balance. Pt is limited by impaired balance and endurance. Pt should benefit from skilled OT services in order to increase safety and independence in occupational participation. Performance Deficits /Impairments: Increased Pain, Decreased Functional Mobility, Decreased ADL status, Decreased Strength, Decreased Endurance, Decreased Balance, and Decreased High Level IADLs Prognosis: Good Decision Making: Medium Complexity Subjective Pt pleasant and cooperative. Per RN, ok for pt to participate in OT eval. Co-eval with PT as pt is 2-person assist to safely mobilize. Abdominal divine in place with small amount of blood- RN notified, abdominal drain, NG tube, watkins, ostomy and PIV intact. Pain: 0-10 pain scale: 4/10 Location: abdomen Past Medical History: Past Medical History: Diagnosis Date Arthritis COPD exacerbation (HCC) 06/20/2022 Pneumonia 03/04/2019 Primary hypertension 06/24/2023 Past Surgical History: Past Surgical History: Procedure Laterality Date BACK SURGERY N/A 2017 lower back in middle EXPLORATORY LAPAROTOMY 11/04/2023 colon resection, colostomy MANDIBLE SURGERY Bilateral 1983 wires on both jaws now TONSILLECTOMY (HISTORICAL) Admission Diagnosis: Patient Active Problem List Diagnosis Date Noted Abdominal pain, generalized 11/04/2023 LLQ abdominal pain 09/27/2023 Intra-abdominal abscess (CMS/HCC) ([facility]) 08/02/2023 Antibiotic drug intolerance 08/02/2023 Sigmoid diverticulitis 07/19/2023 Moderate malnutrition (CMS/HCC) ([facility]) 07/04/2023 Chronic pain 06/24/2023 Multilevel degenerative disc disease 06/24/2023 Spondylolisthesis at L5-S1 level 06/24/2023 Primary hypertension 06/24/2023 Diverticulitis 06/23/2023 COPD exacerbation ([facility]) 06/20/2022 Community acquired pneumonia 01/13/2022 Spondylolisthesis of lumbar region 07/06/2017 Spondylolisthesis at L4-L5 level 07/06/2017 Chest pain 06/19/2022 Dizziness 10/15/2021 Pneumonia 03/04/2019 Medical Precautions: No active isolations Proper PPE donned/doffed in accordance with facility standards. Fall Risk: Adams Fall Risk Score: 45 (High Risk) Precautions/Restrictions: Left LE Weight Bearing: Weight Bearing As Tolerated Hip Precautions: Posterior Hip Precautions Observe abdominal precautions for pain management Family/Caregiver Present: spouse Overall Cognitive Status: WFL Overall Orientation Status: Oriented x4 Social/Functional History Patient admitted from home. Lives With: Spouse Type of Home: single family home Home Layout: Two Level Home, 1/2 Bath on Main Floor, and Bed/Bed Upstairs Home Access: Stairs to Enter with Rails (# of stairs: 2) Bathroom Shower/Tub: Shower Chair with Back, Walk in Shower, and Grab Bars Toilet: Handicap Height and Grab Bars Home Equipment: front wheeled walker and cane Homemaking Responsibilities: Independent Receives Help From: Spouse Active Commercial Roofer: Yes Prior Level of Function ADL Assistance: Pt independent prior to L LENNOX, now requires assist Ambulation Assistance: Prior to L LENNOX pt ambulated with no device, pt now ambulates with fww Transfer Assistance: Independent Objective ADLs UE Dressing: Min Assist, Pt required min A to doff soiled gown and don fresh gown in regards to sleeve and line management. Upper Extremity Assessment AROM: Impaired: generally decreased, functional Strength: Exceptions: generally decreased, functional Vision: wears glasses for distance and and are NOT being used during the eval Hearing: normal Bed Mobility Supine to sit: Mod Assist, x2 Person Assist Sit to supine: Mod Assist, x2 Person Assist Scooting: Mod Assist, x2 Person Assist Pt educated on log roll technique, pt with VC for sequencing to complete. Pt required mod A x2 for sup<>sit in regards to BLE and trunk management (pillow placed between BLE to maintain hip precautions. Pt required increased time and use of bed features. Denied dizziness with changes in positioning. Pt required assist to scoot to EOB and HOB. Transfers/Functional Mobility Sitting balance: Contact Guard Pt tolerated sitting at EOB 2-3 minutes with CGA to complete. Pt with increased fatigue and abdominal pain requiring pt to return to supine. Device(s) used: none AM-PAC AM-PAC Inpatient Daily Activity Raw Score: 16 ADL Inpatient CMS G-Code Modifier: CK Plan Pt would benefit from skilled acute OT services to address Strengthening, Balance Training, Functional Mobility Training, Endurance Training, Safety Education and Training, Patient/Caregiver Training, Equipment Evaluation/Education, Positioning, and Self-Care/ADL Training. Frequency: 7 visits during current hospital admission or until additional recommendations are made Barriers: Decreased endurance and Medical complications Prognosis: good Safety/Education Safety Safety Devices in place: All fall risk precautions in place, call light within reach, left in bed, patient at risk for falls, nurse notified, and no alarms engaged upon entry Restraints: No Education Education Given To: patient Education Provided: OT Role, Plan of Care, ADL Adaptive Strategies, Fall Prevention Education, Discharge Recommendations, Benefits of Increasing Activity, and bed mobility Education Method: Verbal Barriers to Learning: None Education Outcome: Verbalized Understanding, Demonstrated Understanding, and Continued Education Needed Goals Patient Stated Goal: to be independent Encounter Problems Encounter Problems (Active) Balance Patient will tolerate standing for 3 minutes SBA at fww to allow increased independence in ADLs Start: 11/05/23 Expected End: 11/19/23 Dressing Upper Extremities Patient will complete upper body ADLs mod I. Start: 11/05/23 Expected End: 11/19/23 Dressings Lower Extremities Patient will complete lower body ADLs with SBA. Start: 11/05/23 Expected End: 11/19/23 Mobility Patient will demonstrate functional ambulation SBA with fww. Start: 11/05/23 Expected End: 11/19/23 Patient will increase strength in BUE to be able to increase strength required for transfers. Start: 11/05/23 Expected End: 11/19/23 Toileting Patient will complete toileting tasks at standard toilet with SBA. Start: 11/05/23 Expected End: 11/19/23 Transfers Patient will complete functional transfer with rolling walker with SBA in order to prepare for ambulation. Start: 11/05/23 Expected End: 11/19/23 Patient will perform bed mobility with SBA in order to improve independence and prepare for out of bed mobility. Start: 11/05/23 Expected End: 11/19/23 Therapy Time Individual Co-treatment Time In 1011 Time Out 1031 Minutes 20 Treatment minutes: 8 (1 TA) Saida Young OT Patient's Occupational Therapy Plan of Care supervision is transferred to a [facility] Therapy Services Occupational Therapist. Goals and/or treatment plan was established in collaboration with patient/family/other representatives. Images from the original note were not included. PHYSICAL THERAPY [facility] Initial Evaluation Name/MRN: Priscila Cha ([id number]) Evaluation Date: 11/05/2023 Date of : 1955 Admission Date: 11/03/2023 7:19 PM Age: 67 y.o. Room/Bed: B2-246/B2-246 B Discharge Recommendation: Half-Way Facility Equipment Needed: No Assessment IMPRESSION: Pt is a 67 y.o. female admitted 11/03 with abdominal pain. Pt found to have perforated sigmoid diverticulitis with feculent peritonitis. Pt underwent partial L colectomy with end ostomy by Dr. Lopez 11/04. Of note, pt underwent L LENNOX 10/16/23 with pt and spouse reporting WBAT with posterior hip precautions. Pt has significant past medical history as indicated impacting pt's current clinical presentation. Pt is currently requiring mod A x2 person for bed mobility, CGA for static sitting balance. Pt is currently limited by pain, fatigue and is at an increased risk for falls. Pt will benefit from acute skilled PT to address current deficits. Recommend SNF. Diagnosis: admitted 11/03 with abdominal pain. Pt found to have perforated sigmoid diverticulitis with feculent peritonitis. Pt underwent partial L colectomy with end ostomy by Dr. Lopez 11/04. Prognosis: good Performance Deficits /Impairments: Increased Pain, Decreased Functional Mobility, Decreased Strength, Decreased Endurance, and Decreased Balance Decision Making: Medium Complexity Subjective Pt pleasant and agreeable to therapy session Blood spot noted at top of incision. No change with mobility. RN notified. Pain: 0-10 pain scale: 4/10 Location: abdomen Past Medical History: Past Medical History: Diagnosis Date Arthritis COPD exacerbation (HCC) 06/20/2022 Pneumonia 03/04/2019 Primary hypertension 06/24/2023 Past Surgical History: Past Surgical History: Procedure Laterality Date BACK SURGERY N/A 2016 lower back in middle EXPLORATORY LAPAROTOMY 11/04/2023 colon resection, colostomy MANDIBLE SURGERY Bilateral 1983 wires on both jaws now TONSILLECTOMY (HISTORICAL) Admission Diagnosis: Patient Active Problem List Diagnosis Date Noted Abdominal pain, generalized 11/04/2023 LLQ abdominal pain 09/27/2023 Intra-abdominal abscess (CMS/HCC) ([facility]) 08/02/2023 Antibiotic drug intolerance 08/02/2023 Sigmoid diverticulitis 07/19/2023 Moderate malnutrition (CMS/HCC) ([facility]) 07/04/2023 Chronic pain 06/24/2023 Multilevel degenerative disc disease 06/24/2023 Spondylolisthesis at L5-S1 level 06/24/2023 Primary hypertension 06/24/2023 Diverticulitis 06/23/2023 COPD exacerbation (HCC) 06/20/2022 Community acquired pneumonia 01/13/2022 Spondylolisthesis of lumbar region 07/06/2017 Spondylolisthesis at L4-L5 level 07/06/2017 Chest pain 06/19/2022 Dizziness 10/15/2021 Pneumonia 03/04/2019 Medical Precautions: No active isolations Proper PPE donned/doffed in accordance with facility standards. Fall Risk: Adams Fall Risk Score: 45 (High Risk) Precautions/Restrictions: Left LE Weight Bearing: Weight Bearing As Tolerated Hip Precautions: Posterior Hip Precautions Other Position/Activity Restriction: abdominal precautions Lines/Drains/Airways: NG tube, JAIMIE drain Family/Caregiver Present: spouse Overall Cognitive Status: WFL Overall Orientation Status: Oriented x4 Vision: no visual deficits Hearing: normal Social/Functional History Patient admitted from home. Lives With: Spouse Type of Home: single family home Home Layout: Two Level Home, 1/2 Bath on Main Floor, and Bed/Bed Upstairs Home Access: Stairs to Enter with Rails (# of stairs: 2) Bathroom Shower/Tub: Shower Chair with Back, Walk in Shower, and Grab Bars Toilet: Handicap Height and Grab Bars Home Equipment: front wheeled walker and cane Homemaking Responsibilities: Independent Receives Help From: Spouse Active Commercial Roofer: Yes Prior Level of Function ADL Assistance: Independent and prior to L Lennox, now required assist Ambulation Assistance: Independent Device(s) used: none and front wheeled walker; no device prior to LENNOX, now uses FWW Transfer Assistance: Independent Objective Lower Extremity Assessment AROM: WFL Strength: Exceptions: decreased in BLE noted with functional mobility Bed Mobility: Supine to sit: Mod Assist, x2 Person Assist Sit to supine: Mod Assist, x2 Person Assist Pt educated on abdominal precautions and log roll technique prior to mobility. Pt requires mod A x2 person for trunk and BLE management when completing supine<->sit. Increased time and effort required to complete. Pillow placed between legs to maintain hip precautions. Pt sits EOB ~2-3 minutes at CGA to monitor safety and stability. Limited by pain and fatigue. Transfers Unsafe to attempt due to decreased activity tolerance. Ambulation Did not assess this session. Outcome Measures AM-PAC How much HELP from another person do you currently need Turning from your back to your side while in a flat bed without using bedrails?: A Lot Moving from lying on your back to sitting on the side of a flat bed without using bedrails?: Total Moving to and from a bed to a chair (including a wheelchair)?: Total Standing up from a chair using your arms (wheelchair or bedside chair)?: Total Walking in a hospital room?: Total Stair climbing assessed?: No AM-PAC Inpatient Mobility Raw Score (No Stairs) : 6 Plan Pt would benefit from skilled acute PT services to address Strengthening, Balance Training, Functional Mobility Training, Endurance Training, Gait Training, Stair Training, Pain Management, Safety Education and Training, Patient/Caregiver Training, Equipment Evaluation/Education, and Positioning. Frequency: 5 visits during current hospital admission or until additional recommendations are made Barriers: Pain, Decreased endurance, Upper extremity weakness, Lower extremity weakness, and Stairs at home Safety/Education Safety Safety Devices in place: All fall risk precautions in place, call light within reach, left in bed, bed alarm in place, gait belt, patient at risk for falls, and nurse notified Restraints: N/A Education Education Given To: patient and spouse Education Provided: PT Role, PT Goals, Plan of Care, Precautions, Discharge Recommendations, and Benefits of Increasing Activity Education Method: Verbal Barriers to Learning: None Education Outcome: Verbalized Understanding, Demonstrated Understanding, and Continued Education Needed Goals Patient Stated Goal: Pt did not state Encounter Problems Encounter Problems (Active) Exercise Patient will complete lower extremity exercises for 1-2 sets / 5-10 reps in order to improve strength and activity tolerance for mobility. Start: 11/05/23 Expected End: 11/12/23 Mobility Patient will ambulate 50 feet with SBA and rolling walker in order to improve safety and independence with mobility. Start: 11/05/23 Expected End: 11/12/23 Patient will ascend and descend 12 stairs with one railing and CGA in order to safely negotiate home. Start: 11/05/23 Expected End: 11/12/23 Transfers Patient will perform bed mobility with SBA in order to improve independence and prepare for out of bed mobility. Start: 11/05/23 Expected End: 11/12/23 Patient will complete functional transfer with rolling walker with SBA in order to prepare for ambulation. Start: 11/05/23 Expected End: 11/12/23 Therapy Time Individual Co-treatment Time In 1011 (co-eval with OT) Time Out 1030 Minutes 19 Sadie Turner PT Patient's Physical Therapy Plan of Care supervision is transferred to a [facility] Therapy Services Physical Therapist. Goals and/or treatment plan was established in collaboration with patient/family/other representatives. Surgery Post Op Progress Note PATIENT NAME: Priscila Cha TODAY'S DATE: 11/05/2023 SUBJECTIVE: General Surgery follow up on Ronni procedure. NO N/V. Abdominal soreness. No acute events overnight. Pain controlled with narcotic. Pain controlled YES/NO: Yes Other Complaints YES/NO: No Flatus/BM/or Ostomy function YES/NO: Yes OBJECTIVE: VITALS: BP (!) 174/90 (BP Location: Right arm, Patient Position: Lying) Pulse 95 Temp (!) 35.9 C (96.7 F) (Temporal) Resp 18 Ht 5' 1.81 (1.57 m) Wt 134 lb 0.6 oz (60.8 kg) LMP (LMP Unknown) SpO2 100% BMI 24.67 kg/m INTAKE/OUTPUT: I/O last 3 completed shifts: In: 1220.1 (20.1 mL/kg) [I.V.:1220.1 (20.1 mL/kg)] Out: 1405 (23.1 mL/kg) [Urine:875 (0.4 mL/kg/hr); Emesis/NG output:75; Drains:355; Blood:100] Weight: 60.8 kg I/O this shift: In: - Out: 40 [Drains:40] CONSTITUTIONAL: awake and alert ENT: NGT to LIS ABDOMEN: soft, nondistended, and incisional tenderness INCISION: clean, dry, no drainage. Midline divine. Ostomy healthy appearing with some flatus within the bag. JAIMIE SS drainage Data: CBC: Recent Labs 11/03/23201011/04/23 0524 WBC 16.6* 17.7* HGB 10.9* 8.6* HCT 33.3* 26.9* PLT 886* 669* BMP: Recent Labs 11/03/23201011/04/23 0524 NA 134* 135 K 4.0 4.4 CL 99 108* CO2 27 22 BUN 21* 21* CREATININE 0.66 0.71 GLUCOSE 131* 156* Hepatic: Recent Labs 11/03/232010 AST 38 ALT 18 BILITOT 0.9 ALKPHOS 100 ASSESSMENT AND PLAN: Ms. Cha is a 67 y/o F who is s/p Partial left colectomy with end ostomy, (Mock's procedure) POD#1 - NPO, IVF - NGT to LIS continue - IV atbx to continue at least until POD#4 - Watkins D/C - PRN pain/nausea medication - USACS medical management - DVT ppx: Lovenox - Ostomy consult - PT/OT evaluation- recently LENNOX therapy recs - Disposition: POD#1. Await return of bowel function and will slowly ADAT. Fernando Brady, ENGRAVINGS POLISHER - SUPERVISOR POWDERED METAL Images from the original note were not included. Hospitalist Progress Note 11/05/2023 Subjective: Admit Date: 11/03/2023 PCP: LEONID DEE MD Room#: B2-246/B2-246 B Brief Hospital course: Priscila is a 67 y.o. female with history of hypertension, COPD, arthritis, and a history of diverticulitis of sigmoid presented to the emergency with increased abdomen pain, fever, and chills on 11/03. In the ED she was found to have diffuse peritonitis, with CT scan showing perforation, adjacent abscess with pockets of free air. Labs showed LA 2.1, leukocytosis 16,000. General surgery took patient to the OR for partial left colectomy with end ostomy (Mock procedure), we were consulted for medical management. Interval History: Continues to have increased pain and discomfort. NG tube to suction. Increased anxiety even with home Klonapin changed to IV ativan.Hypertension - likely associated with increased pain. Wbc elevated 17.7, Hgb 8.6, No overnight issues. Case and plan discussed with patient and bedside nurse. All questions answered. NPO diet with enteral medications 24HR INTAKE/OUTPUT: Intake/Output Summary (Last 24 hours) at 11/05/2023 0833 Last data filed at 11/05/2023 0800 Gross per 24 hour Intake -- Output 645 ml Net -645 ml Past Medical History: Past Medical History: Diagnosis Date Arthritis COPD exacerbation (HCC) 06/20/2022 Pneumonia 03/04/2019 Primary hypertension 06/24/2023 LABS: CBC: Recent Labs 11/03/23201011/04/23 0524 WBC 16.6* 17.7* RBC 4.23 3.36* HGB 10.9* 8.6* HCT 33.3* 26.9* MCV 78.8* 80.0 RDW 18.5* 18.2* PLT 886* 669* BMP: Recent Labs 11/03/23201011/04/23 0524 NA 134* 135 K 4.0 4.4 CL 99 108* CO2 27 22 BUN 21* 21* CREATININE 0.66 0.71 GLUCOSE 131* 156* CALCIUM 10.0 8.0* ANIONGAP 8 5 LIVER PROFILE: Recent Labs 11/03/232010 AST 38 ALT 18 BILITOT 0.9 ALKPHOS 100 PROT 6.8 PT/INR: Recent Labs 11/03/23 2104 PROTIME 13.1* INR 1.2* CARDIAC ENZYMES: Recent Labs 11/03/23201011/03/23 2328 11/04/23 0524 TROPONINI <0.012 <0.012 <0.012 Procalcitonin: No results found for: PROCAL COVID-19 PCR: No results for input(s): COVID19 in the last 72 hours. Objective: Vitals: BP (!) 174/90 (BP Location: Right arm, Patient Position: Lying) Pulse 95 Temp (!) 35.9 C (96.7 F) (Temporal) Resp 18 Ht 5' 1.81 (1.57 m) Wt 134 lb 0.6 oz (60.8 kg) LMP (LMP Unknown) SpO2 100% BMI 24.67 kg/m Pulse Ox: SpO2 Av.3 % Min: 99 % Max: 100 % Supplemental O2: O2 Flow Rate (L/min): 5 L/min Physical Exam Vitals and nursing note reviewed. HENT: Mouth/Throat: Pharynx: Oropharynx is clear. Eyes: Conjunctiva/sclera: Conjunctivae normal. Cardiovascular: Rate and Rhythm: Normal rate. Heart sounds: No murmur heard. Pulmonary: Effort: Pulmonary effort is normal. No respiratory distress. Breath sounds: No wheezing or rales. Abdominal: General: Bowel sounds are normal. Tenderness: There is abdominal tenderness. Comments: Ostomy site appears healthy- no surrounding cellulitis. Scant amount of blood in surgical site drainage tube Small amount of dried blood along midline incision Musculoskeletal: General: Tenderness and signs of injury present. Comments: Right hip lesion dry and intact Skin: General: Skin is warm. Capillary Refill: Capillary refill takes less than 2 seconds. Neurological: General: No focal deficit present. Mental Status: She is alert. Medications: enoxaparin, 40 mg, SubCUTAneous, Daily Ijlzkmppxhn-Ecgfjecyt-Avlsfp, 1 puff, Inhalation, Daily [Held by provider] gabapentin, 300 mg, Oral, BID HYDROmorphone, 0.5 mg, IntraVENous, Once piperacillin-tazobactam, 3,375 mg, IntraVENous, q8h sodium chloride 0.9%, 10 mL, IntraVENous, 2 times per day Assessment Data: (CAT1) Reviewed 3 or more notes from different specialty or health system (each=1). (CAT1) Reviewed 3 or more labs/studies ordered by another provider not previously counted (each=1, panels count as 1). (CAT1) Clinical information was necessarily obtained from an independent historian. (LOW: 2x CAT1 or independent historian MOD: 3x CAT1 or 1x CAT3 EXTENSIVE: 3x CAT1 and 1x CAT3) Acute, acute on chronic, unstable/uncontrolled chronic problems/diagnoses: Abdomen pain 2/2 ruptured sigmoid diverticulitis s/p mock procedures. NG to Suction - advance diet per surgery If prolonged course of NPO - will need to consider TPN or tube feeds Left sided Total hip arthroplasty on 10/16/2023 Dressing intact - prn analgesia Anxiety Klonapin 0.5mg PO BID -> converted to 1mg Ativan IV BID - > will put back to oral once patient able to tolerate oral HOLD gabapentin and trazadone due to NPO with no medications - > resume later Asthma -OK to use home trillogy Normocytic anemia Plan As a result of the above findings & factors, the following mgmt was pursued: - Increased dilaudid dosage > helpful for pain management. Encourage up to chair today, anxiety medications prn, once tolerating PO -> add oxycodone to alternate with IV medications for better pain control - may need TPN or tube feeds if prolonged NPO - Hgb stable - transfuse if drop <7 - encourage ambulation and working with PT for recent left hip arthroplasty to ensure no complications from that surgery - am labs, replace lytes prn - PT/OT/CM/SW - delirium precautions: increase activity and limit nighttime disturbances - DVT prophylaxis: enoxaparin and encourage ambulation Complexity: Acute illness or injury posing a threat to life or body function (HIGH). Risk: Admission to hospital-level care was considered or occurred (HIGH). Consult to surgery for major surgery, or minor surgery with identified patient or procedural risk factors, was considered or occurred (MOD). Advance Directive: Full Code Anticipated Discharge - Date - TBD - Location - home vs home health - Pending the following - clinical improvement Total time spent (which include face to face and non face to face encounters) : 45 minutes Toxic drug monitoring/narrow therapeutic index drug monitoring : # Drug name : post-operative lovenox # Route administered : subq # Method of monitoring : monitor for bleed. Extended Emergency Contact Information Primary Emergency Contact: Deja Cha Mobile Relation: Spouse Ирина Toledo MD Division of Hospitalist Medicine [facility] Surgery Post Op Progress Note PATIENT NAME: Priscila Cha TODAY'S DATE: 11/04/2023 SUBJECTIVE: General Surgery morning rounds after [facility] earlier this morning. Abdominal pain but controlled with narcotic. No N/V. Pain controlled YES/NO: Yes Other Complaints YES/NO: No Flatus/BM/or Ostomy function YES/NO: No OBJECTIVE: VITALS: BP 120/70 (BP Location: Left arm, Patient Position: Lying) Pulse 90 Temp 36.3 C (97.4 F) (Temporal) Resp 16 Ht 5' 1.81 (1.57 m) Wt 134 lb 0.6 oz (60.8 kg) LMP (LMP Unknown) SpO2 100% BMI 24.67 kg/m INTAKE/OUTPUT: I/O last 3 completed shifts: In: 1220.1 (20.1 mL/kg) [I.V.:1220.1 (20.1 mL/kg)] Out: 800 (13.2 mL/kg) [Urine:550 (0.3 mL/kg/hr); Drains:150; Blood:100] Weight: 60.8 kg I/O this shift: In: - Out: 175 [Emesis/NG output:75; Drains:100] CONSTITUTIONAL: awake and alert ENT: NGT in place ABDOMEN: soft and nondistended incisional tenderness INCISION: clean, dry, no drainage. Midline divine, ostomy healthy appearing. : Watkins clear yellow urine Data: CBC: Recent Labs 11/03/23201011/04/23 05 WBC 16.6* 17.7* HGB 10.9* 8.6* HCT 33.3* 26.9* PLT 886* 669* BMP: Recent Labs 11/03/23201011/04/23 05 NA 134* 135 K 4.0 4.4 CL 99 108* CO2 27 22 BUN 21* 21* CREATININE 0.66 0.71 GLUCOSE 131* 156* Hepatic: Recent Labs 11/03/232010 AST 38 ALT 18 BILITOT 0.9 ALKPHOS 100 ASSESSMENT AND PLAN: Ms. Cha is a 67 y/o F who is s/p Partial left colectomy with end ostomy, (Mock's procedure) POD#0 - NPO, IVF - NGT to LIS - IV atbx to continue at least until POD#4 - Watkins continue until tomorrow - PRN pain/nausea medication - USACS medical management - DVT ppx: Lovenox - Disposition: POD#0. Await return of bowel function and will slowly ADAT. Fernando Brady APRN - SUPERVISOR P[employer] documented in this encounter [facility] 11-10-2023 Miscellaneous Notes Patient Choice Patient Name: PRISCILA CHA Date of : 1955 All Providers Sent Referral Name: [facility] Phone: [phone] Address: [address] [place], [place] [id number] Name: [facility] Phone: [phone] Address: [address] [place] [id number] Sent Admit to Inpatient [facility] to [facility] request. Discharge med list transmitted to [facility] via [facility] per TCC request. [id number] was entered into [employer] [facility] for the SNF- Facility is aware. Transportation arranged through [facility] by wheelchair van set for 4:30 pm. Notified RN and TCC of transportation time. Notified [facility] of transportation time via [employer]. Will update patient and spouse of transportation time. SW remains available if any other needs or concerns arise. Images from the original note were not included. Care Management Progress Note Pt POD ^ Mock's procedure w colostomy Iv Invanz completed and pt transitioned to PO Flagyl. ID following. Tolerating Adult low fiber diet Ostomy - smal soft/liq stool output per nursing. Pain controlled with po narcotics Therapy recommendations remain for skilled transfer. Tcc messsaged GI to inquire if cleared to dc and for santino completion for < 30 days. Tcc messaged facility to alert pt likley ready today and confirmed. DCP to [facility] to coordinate transportation. Pt updates. Pt to dc on po Augmentin Flagyl dc'd. Tcc messaged facility of clearance to dc today. Discharge Milestones and Delays Expected Date/Time: 11/10/[address] discharge order Complete med reconciliation Case mgmt discharge readiness Clinical Stability Diagnsotic Workup Expected Discharge History Expected Date/Time Set By Reviewed At 11/10/2023 Hannah Multani RN 11/10/2023 8:56 AM TCC estimate [facility] can accept 11/09 vs 11/10 Hannah Multani RN 11/10/2023 8:54 AM Hannah Multani RN 11/10/2023 8:52 AM TCC estimate [facility] can accept 2 vs 2 when diet advanced and tolerated( FLD 11/09/23) 11/10/2023 Hannah Multani RN 11/09/2023 8:51 AM TCC estimate [facility] can accept 2/ vs 2 when diet advanced and tolerated( FLD 11/09/23) Snf inquiring if pt will dc on Iv Invanz. 11/10/2023 Hannah Multani RN 11/08/2023 8:30 AM TCC estimate [facility] can accept 11/09 vs 2 when diet advanced and tolerated. Snf inquiring if pt will dc on Iv Invanz. 11/10/2023 Hannah Multani RN 11/07/2023 8:52 AM TCC estimate possible SNF 11/06- snf recommneded. Needs choices. 11/10/2023 SATYA [place] 11/06/2023 9:07 AM 11/10/2023 Tiffany Bansal RN 11/06/2023 7:43 AM TCC estimate possible SNF 11/07/2023 Michael Beurmen DO 11/04/2023 4:35 AM 11/06/2023 Michael Berumen DO 11/04/2023 12:20 AM Length of Stay (Days): 6 GMLOS: 9.8 Problem: Pain - Adult Goal: Verbalizes/displays adequate comfort level or baseline comfort level Outcome: Progressing Sent updated notes to [facility] via [facility] per TCC request. Await review and response regarding ability to accept. TCC notified. [facility]CC request. Await review and response regarding ability to accept. TCC notified. Images from the original note were not included. Care Management Progress Note Pt is POD 5 for colon resection/ Mock's procedure with colostomy. Iv invanz continues to infuze FLD to be advanced. Ostomy with small soft liq stool output. Tcc messaged team regarding duration of IV antibiotics or plan for antibiotic coverage at [place]. Awaiting response. Tasked updates to be sent to facility. Tcc messaged facility in careport regarding plan in place. Tcc following. Discharge Milestones and Delays Expected Date/Time: 11/10/[address] discharge order Complete med reconciliation Case mgmt discharge readiness Clinical Stability Diagnsotic Workup Expected Discharge History Expected Date/Time Set By Reviewed At 11/10/2023 Hannah Multani RN 11/09/2023 8:51 AM TCC estimate [facility] can accept 2/ vs 2 when diet advanced and tolerated( FLD 11/09/23) Snf inquiring if pt will dc on Iv Invanz. 11/10/2023 Hannah Multani RN 11/08/2023 8:30 AM TCC estimate [facility] can accept 2/22 vs 2/ when diet advanced and tolerated. Snf inquiring if pt will dc on Iv Invanz. 11/10/2023 Hannah Multani RN 11/07/2023 8:52 AM TCC estimate possible SNF 11/06- snf recommneded. Needs choices. 11/10/2023 SATYA [place] 11/06/2023 9:07 AM 11/10/2023 Tiffany Bansal RN 11/06/2023 7:43 AM TCC estimate possible SNF 11/07/2023 Michael Berumen DO 11/04/2023 4:35 AM 11/06/2023 Michael Berumen DO 11/04/2023 12:20 AM Length of Stay (Days): 5 GMLOS: 9.8 The patient is Moderately Stable - Low risk of patient condition declining or worsening The patient's goals for the shift include rest The clinical goals for the shift include rest Over the shift, the patient did not make progress toward the following goals. Barriers to progression include. Recommendations to address these barriers include. Sent updated notes to [facility] per TCC request. Await review and response regarding ability to accept. TCC notified. Referral placed to [facility] per TCC request. Await review and response regarding ability to accept. TCC notified. Images from the original note were not included. Care Management Progress Note Pt POD 3 colon resection w colostomy NPO NGT out IVF infusing IV antibiotics LLQ ostomy Gen surgery following and Awaiting bowel function. Pt's spouse at bedside. Pt lying calmly reporting being in A lot of pain . [facility] reviewed therapy recommendations with pt and spouse Deja. Deja reported that they would like referrals placed to [facility] and [place]. Tcc also reported that [facility] is following and should patient pass therapy and be able to dc home safely would be able to pursue [facility]. Deja reports that [facility] was active with patient post L [place] this past Sep. Tcc to Task [employer] to send referrals to [facility] Discharge Milestones and Delays Expected Date/Time: 11/10/[address] discharge order Complete med reconciliation Case mgmt discharge readiness Clinical Stability Diagnsotic Workup Expected Discharge History Expected Date/Time Set By Reviewed At 11/10/2023 Hannah Multani RN 11/07/2023 8:52 AM TCC estimate possible SNF 11/06- snf recommneded. Needs choices. 11/10/2023 SATYA [place] 11/06/2023 9:07 AM 11/10/2023 Tiffany Bansal RN 11/06/2023 7:43 AM TCC estimate possible SNF 11/07/2023 Michael Berumen, DO 11/04/2023 4:35 AM 11/06/2023 Michael Berumen, DO 11/04/2023 12:20 AM Length of Stay (Days): 3 GMLOS: 9.8 Problem: Pain - Adult Goal: Verbalizes/displays adequate comfort level or baseline comfort level Outcome: Progressing Problem: Safety - Adult Goal: Free from fall injury Outcome: Progressing The patient is Images from the original note were not included. Care Management Progress Note TRANSITIONAL CARE DAILY NOTE/UPDATES: Patient remains on 2E due to abdominal pain. S/P EXPLORATORY LAPAROTOMY with partial colon resection and colostomy 11/04. Clinical updates: Patient NPO, NG was pulled out and ok to leave out. Has a watkins, on IV fluids, IV antibiotics. Has a new colostomy, has a LLQ drain.General Surgery following. Discharge plan: SNF. Spoke to patient at bedside, she is agreeable to SNF. List given, Medicare star rating and [facility] [facility] explained. Patient verbalized understanding. She wants to look it over with her and will give choices. Discharge obstacles: none noted. TCC to continue to follow. Discharge Milestones and Delays Expected Date/Time: 11/10/[address] discharge order Complete med reconciliation Case mgmt discharge readiness Clinical Stability Diagnsotic Workup Expected Discharge History Expected Date/Time Set By Reviewed At 11/10/2023 SATYA [place] 11/06/2023 9:07 AM TCC estimate possible SNF 11/06- snf recommneded. Needs choices. 11/10/2023 Tiffany Bansal RN 11/06/2023 7:43 AM TCC estimate possible SNF 11/07/2023 Michael Berumen DO 11/04/2023 4:35 AM 11/06/2023 Michael Berumen DO 11/04/2023 12:20 AM Length of Stay (Days): 2 GMLOS: No GMLOS Documented Care Managment Initial Assessment Date: 11/04/2023 Patient Name: Priscila Cha : 1955 Patient Information Source of Information: Patient Cognition/Language: WFL - Within Functional Limits Permission given to speak with patient surgical device sales representative/caregiver as indicated: Confirmation of Payer with patient/family: Yes Payer Name: Medicare / AARP [place]: No Confirmation of Primary Care Physician: Confirmed PCP Name: Dr. Dee Seen in last 2 years?: Yes Primary Caregiver: Self If assistance needed, confirmed caregiver ready, willing and able to care for patient at discharge: Yes Confirmed with: Per patient, spouse able to assist Living Arrangements Current Residence: House Number of Floors 2 Number of Entry Steps: 2 Bed/Bath Levels: Both second floor Facility: Facility Name: Plan to Return: Yes Lives with: Spouse/significant other Support Systems: Spouse/significant other, Family members Activities of Daily Living Ambulation: Independent Bathing/Dressing: Independent Elimination/Continence/Toileting: Independent Feeding: Independent Who Assists with Activities of Daily Living: Instrumental Activities of Daily Living Prescription Coverage: Yes Pharmacy Used: [facility] [address] Medication Management: Independent Transportation/Shopping: Independent Transportation Mode: Car Needs Assistance with Transportation at Discharge: No Meal Preparation: Independent Laundry/Cleaning: Independent Finances/Bill Paying: Independent Communication: Independent Types of Care Services/Equipment Utilized Care Services: (N/A) Dialysis Type: NA Durable Medical Equipment: Nebulizer Patient's Goal/Discharge Plan Patient expects to be discharged to: Home Discharge Planning Actions: Continue to follow, No needs identified Patient's Choice Rights and [employer] and Collaborative Relationships Disclosed as Indicated for Post-Acute Care: Interdisciplinary Team Engagement: Social Work Referral for: Additional Information: Spoke with patient at bedside. Introduced self and role. Patient admitted for perforated sigmoid diverticulitis with feculent peritonitis s/p partial left colectomy with end ostomy, (Mock's procedure). General surg consulted. No PT/OT consults ordered but patient is independent with all ADL/IADLs and up ad river. No needs identified. TCC will continue to follow for any changes. Sage Sher RN Called report to [facility] pt meets requirements to go to room at this time. at bedside in PACU. Sent belongings home with him. OPERATIVE NOTE DATE OF PROCEDURE: 11/04/2023 SURGEON: ADRIA LOPEZ M.D. SPIN TABLE OPERATOR: see chart PREOPERATIVE DIAGNOSIS: Perforated sigmoid diverticulitis with feculent peritonitis POSTOPERATIVE DIAGNOSIS: SAME OPERATION: Partial left colectomy with end ostomy, (Mock's procedure) ANESTHESIA: General endotracheal anesthesia ESTIMATED BLOOD LOSS: less than 50 COMPLICATIONS: None SPECIMENS: Sigmoid colon distal and marked with suture and rectal stump Wound Classification Surgical Wound Classification [] Class I/Clean [] Class II/Clean-Contaminated [] Class III/Contaminated [x] ClassIV/Dirty-Infected HISTORY: The patient is a 67 y.o. year old female with history of above preop diagnosis. Presented to the emergency department earlier this evening with complaints of worsening abdominal pain over the past 2 to 3 days. She does have a history of sigmoid diverticulitis starting back to June of this past year. He also recently underwent hip arthroplasty several weeks ago. Workup today revealed very sick patient with peritoneal abdomen and labs and imaging consistent with perforated sigmoid diverticulitis with free air fluid and multiple abscess pockets. Given these findings patient taken urgently to the operating room for exploratory laparotomy sigmoid resection and end colostomy as described below. Prior to surgery I explained the risk, benefits, expected outcome, and alternatives to the procedure. Patient understood and was in agreement to proceed with operation. DESCRIPTION: Patient taken to the operating room placed supine on the operating table. After adequate anesthesia was achieved and timeout protocol was completed the abdomen was prepped and draped in standard sterile surgical fashion. A vertical midline incision was made just above the umbilicus and carried down to just above the pubis. This was deep into the subcutaneous tissues and hemostasis achieved with electrocautery. The linea alba was identified and incised and the peritoneal cavity entered. Adhesions were lysed sharply under direct visualization with Metzenbaum scissors and blunt dissection as well as electrocautery. The abdomen was explored. Generalized peritonitis feculent and purulent material abscess left lower quadrant space mass involving sigmoid colon was found indicating pre-existing deep space infection. The small bowel was retracted to the right using moist towel and self-retaining retractor. Using electrocautery and blunt dissection the colon was freed from its peritoneal attachments along the line of Toldt proximally from the mid descending colon and distally to the pelvic inlet. Points of transection were selected proximally at the distal descending colon and distally near rectosigmoid junction. The bowel was divided at the proximal location with linear cutting stapler. The mesentery was then divided with Enseal device. The inferior mesenteric artery was also suture ligated as well. The distal portion of bowel was then divided using linear cutting stapler and the specimen was removed and distal end tagged and sent to pathology. Mock's pouch staple line was then tagged at the lateral edges with a Prolene suture. The abdominal cavity was then copiously irrigated and hemostasis was observed. 10 flat JAIMIE drain was then placed in the pelvis near the rectal stump staple line and brought out through the left lower quadrant. The proximal colon reached easily to the proposed colostomy site without tension. A disc of skin was removed from the colostomy site in the left lower quadrant. The incision was deepened through all layers of abdominal wall and dilated to admit 2 fingers. The colon was then passed out through the ostomy site without torsion or tension. The fascia was then reapproximated and closed with running looped PDS suture. And closed with divine. The ostomy was matured with multiple interrupted 2-0 Vicryl suture. Ostomy bag then applied. Sterile dressing applied to the midline incision. Sponge instrument count correct at the end of the case. Patient tolerated procedure well and was transferred to PACU in stable condition. documented in this encounter [facility] 11-10-2023 Note Formatting of this n ote might be different from the original. Patient Choice Patient Name: PRISCILA CHA Date of : 1955 All Providers Sent Referral Name: [facility] Phone: [phone] Address: [address] [place], [place] [address] Name: [facility] Phone: [phone] Address: [address] [place] [address] [facility] 11-10-2023 Note Formatting of this n ote might be different from the original. Patient Choice Patient Name: PRISCILA CHA Date of : 1955 All Providers Sent Referral Name: [facility] Phone: [phone] Address: [address] [place] [id number] Name: [facility] Phone: [phone] Address: [address] [place] [address] [facility] 11-10-2023 Note Formatting of this n ote might be different from the original. Sent Admit to Inpatient order to [facility] via [facility] per Facility request. [facility] 11-10-2023 Note Formatting of this n ote might be different from the original. Sent Admit to Inpatient order to [facility] via [facility] per Facility request. [facility] 11-10-2023 Note Formatting of this n ote might be different from the original. Discharge med list transmitted to [facility] via [facility] per TCC request. 7000 was entered into [employer] for the [facility]- Facility is aware. [facility] 11-10-2023 Note Formatting of this n ote might be different from the original. Discharge med list transmitted to [facility] via [facility] per TCC request. 7000 was entered into [employer] for the [facility]- Facility is aware. [facility] 11-10-2023 Note Formatting of this n ote might be different from the original. Transportation arranged through [facility] by wheelchair van set for 4:30 pm. Notified RN and TCC of transportation time. Notified [facility] of transportation time via [facility]. Will update patient and spouse of transportation time. SW remains available if any other needs or concerns arise. [facility] 11-10-2023 Note Formatting of this n ote might be different from the original. Transportation arranged through [facility] by wheelchair van set for 4:30 pm. Notified RN and TCC of transportation time. Notified [facility] of transportation time via [facility]. Will update patient and spouse of transportation time. SW remains available if any other needs or concerns arise. [facility] 11-10-2023 Hospital Discharge instructions SATINDER Solorzano - 11/10/2023 12:20 PM EST DISCHARGE INSTRUCTIONS Thank you very much for allowing me to participate in your care, it is truly a privilege. Below please see discharge orders that will help you during your recovery. Please do not hesitate to call the office at [phone] for any questions. After hours, the same number will allow you to reach the on-call surgeon. Post-op appointment on 11/22/23 at 10:15 AM. Call the office to reschedule if needed Change bandages daily or more frequently if needed. Keep incisions clean with soap/ water daily. (Peroxide OK as well) Cover incision(s) as needed. Please remove the Steri-Strips 5 days after surgery. You may be instructed by nursing staff to either leave them on until you see Dr. Lopez or they will fall off on their own. Neither is true. Please remove the Steri-Strips as instructed 5 days after your date of surgery. This includes any clear bandages and gauze placed in the navel, if applicable. If you have skin glue this will come off on its own Diet: Regular General guidelines for activity: no heavy lifting for 6 weeks OK to shower You may have pain medicine ordered. Please take as directed/needed. Some discomfort, mild bruising, and swelling are not unusual; please call my office if you have any severe pain, hemorrhage, or high fever (over 101 F) Resume home medications as directed (see medication reconciliation sheet) Watch for signs of infection: Excessive warmth or bright redness around your incisions Leakage of bloody or cloudy fluid from you incisions Fever over 100.5 If you experience constipation Increase your water intake. Increase your activity; walking is best. An over the counter stool softener or mild laxative may be necessary if you still have not had a bowel movement after several days. Please call the office at [phone] for any questions and to make your post op appointment if needed. Thank you again for allowing me to participate in your care, and get well soon! Adria Lopez MD FACS RDO Witt RN - 11/10/2023 12:18 PM EST Continuity of Care Form Patient Name: Priscila Cha : 1955 Admit date: 11/03/2023 Discharge date: 11/10 Code Status Order: Full Code Advance Directives: N Admitting Physician: Adria Lopez MD PCP: LEONID DEE MD Discharging Nurse: Roberto Witt Discharging Hospital Unit/Room#: B1-155/B1-155 A Discharging Unit Emergency Contact: Extended Emergency Contact Information Primary Emergency Contact: Deja Cha Mobile Relation: Spouse Past Surgical History: Past Surgical History: Procedure Laterality Date BACK SURGERY N/A 2017 lower back in middle EXPLORATORY LAPAROTOMY 11/04/2023 colon resection, colostomy MANDIBLE SURGERY Bilateral 1983 wires on both jaws now TONSILLECTOMY (HISTORICAL) Immunization History: Immunization History Administered Date(s) Administered Moderna SARS-CoV-2 Vaccination 11/23/2020, 12/21/2020, 07/24/2021 Active Problems: Medical Problems Problem List * (Principal) Abdominal pain, generalized COPD exacerbation (HCC) Community acquired pneumonia Diverticulitis Chronic pain Multilevel degenerative disc disease Spondylolisthesis of lumbar region Spondylolisthesis at L5-S1 level Spondylolisthesis at L4-L5 level Primary hypertension Moderate malnutrition (CMS/HCC) (HCC) Sigmoid diverticulitis Intra-abdominal abscess (CMS/HCC) (HCC) Antibiotic drug intolerance LLQ abdominal pain Severe malnutrition (CMS/HCC) (HCC) Dizziness Chest pain Pneumonia Isolation/Infection: Contact ESBL Nurse Assessment: Last Vital Signs: BP 160/80 (BP Location: Right arm) Pulse 106 Temp 36.2 C (97.1 F) (Temporal) Resp 18 Ht 1.57 m (5' 1.81 ) Wt 60.8 kg (134 lb 0.6 oz) LMP (LMP Unknown) SpO2 93% BMI 24.67 kg/m Last documented pain score (0-10 scale): Last Weight: Wt Readings from Last 1 Encounters: 11/04/23 60.8 kg (134 lb 0.6 oz) Mental Status: SANTINO Patient Mental Status: oriented and alert IV Access: SANTINO IV Access: None Nursing Mobility/ADLs: Walking Minimal assistance Transfer Minimal assistance Bathing Minimal assistance Dressing Minimal assistance Toileting Minimal assistance Feeding Minimal assistance Fountain Worker Minimal assistance Med Delivery yes Wound Care Documentation and Therapy: Wound/Incision 11/04/23 Incision Abdomen Midline (Active) Site Assessment Clean 11/10/23 1056 [place]-Wound Assessment Clean;Dry;Toad Hop 11/10/23 1056 Odor None 11/10/23 1056 Drainage Amount None 11/10/23 1056 Primary Dressing Open to air 11/10/23 1056 Dressing Status Other (Comment) 11/10/23 1056 Number of days: 6 Elimination: Continence: Bowel: yes Bladder: yes Urinary Catheter: None Colostomy/Ileostomy/Ileal Conduit: None Colostomy-Stomal Appliance: Changed (changed on previous shift) [REMOVED] Colostomy LLQ-Stomal Appliance: 1 piece Colostomy-Site Assessment: Clean, Intact, Dry [REMOVED] Colostomy LLQ-Site Assessment: Clean Colostomy-Peristomal Assessment: Clean, Intact [REMOVED] Colostomy LLQ-Peristomal Assessment: Clean Colostomy-Output (mL): 50 mL (mushy brown) Date of Last BM: 11/10 from colostomy Intake/Output Summary (Last 24 hours) at 11/10/2023 1216 Last data filed at 11/10/2023 1056 Gross per 24 hour Intake -- Output 470 ml Net -470 ml I/O last 3 completed shifts: In: 649 (10.7 mL/kg) [I.V.:649 (10.7 mL/kg)] Out: 50 (0.8 mL/kg) [Drains:50] Weight: 60.8 kg Safety Concerns: none Impairments/Disabilities: History of confusion at times Nutrition Therapy: Current Nutrition Therapy: Oral diet: low fiber Routes of Feeding: oral Liquids: no restrictions Daily Fluid Restriction: no Last Modified Barium Swallow with Video (Video Swallowing Test): not done Treatments at the Time of Hospital Discharge: Respiratory Treatments: Oxygen Therapy: is not on home oxygen therapy. Ventilator: No ventilator support Rehab Therapies: physical therapy and occupational therapy Weight Bearing Status/Restrictions: no restriction Other Medical Equipment (for information only, NOT a DME order): has a Arthur Rosenbaum drain Other Treatments: Patient's personal belongings (please select all that are sent with patient): cell phone RN SIGNATURE: MANAGEMENT/SOCIAL WORK SECTION Inpatient Status Date: Readmission Risk Assessment Score: @READMISSIONRISKDETAILS@ Discharging to Facility/ Agency Name: [facility] Address:[address] [place], [place] [address] [address] Dialysis Facility (if applicable) ager/Periodicals Clerk signature: ICIAN SECTION Prognosis: good Condition at Discharge: stable Rehab Potential (if transferring to Rehab): good Recommended Labs or Other Treatments After Discharge: None Physician Certification: I certify the above information and transfer of Priscila Cha is necessary for the continuing treatment of the diagnosis listed and that she requires senior living facility for less than 30 days. Update Admission H&P: No change in H&P PHYSICIAN SIGNATURE: Adria Lopez MD 13:31 11/10/2023 documented in this encounter [facility] 11-10-2023 Note [facility] 11-10-2023 Note Formatting of this n ote is different from the original. Images from the original note were not included. Care Management Progress Note Pt POD ^ Mock's procedure w colostomy Iv Invanz completed and pt transitioned to PO Flagyl. ID following. Tolerating Adult low fiber diet Ostomy - smal soft/liq stool output per nursing. Pain controlled with po narcotics Therapy recommendations remain for skilled transfer. Tcc messsaged GI to inquire if cleared to dc and for santino completion for < 30 days. Tcc messaged facility to alert pt likley ready today and confirmed. DCP to [facility] to coordinate transportation. Pt updates. Pt to dc on po Augmentin Flagyl dc'd. Tcc messaged facility of clearance to dc today. Discharge Milestones and Delays Expected Date/Time: 11/10/[address] discharge order Complete med reconciliation Case mgmt discharge readiness Clinical Stability Diagnsotic Workup Expected Discharge History Expected Date/Time Set By Reviewed At 11/10/2023 Hannah Multani RN 11/10/2023 8:56 AM TCC estimate [facility] can accept 2 vs 2 Hannah Multani RN 11/10/2023 8:54 AM Hannah Multani RN 11/10/2023 8:52 AM TCC estimate [facility] can accept 2/ vs 2/ when diet advanced and tolerated( FLD 11/09/23) 11/10/2023 Hannah Multani RN 11/09/2023 8:51 AM TCC estimate [facility] can accept 2/22 vs 2/ when diet advanced and tolerated( FLD 11/09/23) Snf inquiring if pt will dc on Iv Invanz. 11/10/2023 Hannah Multani RN 11/08/2023 8:30 AM TCC estimate [facility] can accept 2/ vs 2 when diet advanced and tolerated. Snf inquiring if pt will dc on Iv Invanz. 11/10/2023 Hannah Multani RN 11/07/2023 8:52 AM TCC estimate possible SNF 11/06- snf recommneded. Needs choices. 11/10/2023 SATYA [place] 11/06/2023 9:07 AM 11/10/2023 Tiffany Bansal RN 11/06/2023 7:43 AM TCC estimate possible SNF 11/07/2023 Michael Berumen, DO 11/04/2023 4:35 AM 11/06/2023 Michael Berumen DO 11/04/2023 12:20 AM Length of Stay (Days): 6 GMLOS: 9.8 [facility] 11-10-2023 Note Formatting of this n ote is different from the original. Images from the original note were not included. Care Management Progress Note Pt POD ^ Mock's procedure w colostomy Iv Invanz completed and pt transitioned to PO Flagyl. ID following. Tolerating Adult low fiber diet Ostomy - smal soft/liq stool output per nursing. Pain controlled with po narcotics Therapy recommendations remain for skilled transfer. Tcc messsaged GI to inquire if cleared to dc and for santino completion for < 30 days. Tcc messaged facility to alert pt likley ready today and confirmed. DCP to [facility] to coordinate transportation. Pt updates. Pt to dc on po Augmentin Flagyl dc'd. Tcc messaged facility of clearance to dc today. Discharge Milestones and Delays Expected Date/Time: 11/10/[address] discharge order Complete med reconciliation Case mgmt discharge readiness Clinical Stability Diagnsotic Workup Expected Discharge History Expected Date/Time Set By Reviewed At 11/10/2023 Hannah Multani RN 11/10/2023 8:56 AM TCC estimate [facility] can accept 2/22 vs 2/23 Hannah Multani RN 11/10/2023 8:54 AM Hannah Multani RN 11/10/2023 8:52 AM TCC estimate [facility] can accept 2/22 vs 2/23 when diet advanced and tolerated( FLD 11/09/23) 11/10/2023 Hannah Multani RN 11/09/2023 8:51 AM TCC estimate [facility] can accept 2/22 vs 2/23 when diet advanced and tolerated( FLD 11/09/23) Snf inquiring if pt will dc on Iv Invanz. 11/10/2023 Hannah Multani RN 11/08/2023 8:30 AM TCC estimate [facility] can accept 2/22 vs 2/23 when diet advanced and tolerated. Snf inquiring if pt will dc on Iv Invanz. 11/10/2023 Hannah Multani RN 11/07/2023 8:52 AM TCC estimate possible SNF 11/06- snf recommneded. Needs choices. 11/10/2023 SATYA [place] 11/06/2023 9:07 AM 11/10/2023 Tiffany Bansal, QUETA 11/06/2023 7:43 AM TCC estimate possible SNF 11/07/2023 Michael Berumen, 11/04/2023 4:35 AM 11/06/2023 Michael Berumen, DO 11/04/2023 12:20 AM Length of Stay (Days): 6 GMLOS: 9.8 [facility] 11-10-2023 Note Problem: Pain - Adul t Goal: Verbalizes/displays adequate comfort level or baseline comfort level Outcome: Progressing [facility] 11-10-2023 Plan of care note Problem: Pain - Adult Goal: Verbalizes/displays adequate comfort level or baseline comfort level Outcome: Progressing [facility] 11-10-2023 Note Formatting of this n ote might be different from the original. Sent updated notes to [facility] via [facility] per TCC request. Await review and response regarding ability to accept. TCC notified. [facility] 11-10-2023 Note Formatting of this n ote might be different from the original. Sent updated notes to [facility] via [facility] per TCC request. Await review and response regarding ability to accept. TCC notified. [facility] 11-09-2023 Note Formatting of this n ote might be different from the original. Updated notes sent to [facility] via [facility] per TCC request. Await review and response regarding ability to accept. TCC notified. [facility] 11-09-2023 Note Formatting of this n ote might be different from the original. Updated notes sent to [facility] via [employer] per TCC request. Await review and response regarding ability to accept. TCC notified. [facility] 11-09-2023 Note Formatting of this n ote is different from the original. Images from the original note were not included. Care Management Progress Note Pt is POD 5 for colon resection/ Mock's procedure with colostomy. Iv invanz continues to infuze FLD to be advanced. Ostomy with small soft liq stool output. Tcc messaged team regarding duration of IV antibiotics or plan for antibiotic coverage at dc. Awaiting response. Tasked updates to be sent to facility. Tcc messaged facility in careport regarding plan in place. Tcc following. Discharge Milestones and Delays Expected Date/Time: 11/10/[address] discharge order Complete med reconciliation Case mgmt discharge readiness Clinical Stability Diagnsotic Workup Expected Discharge History Expected Date/Time Set By Reviewed At 11/10/2023 Hannah Multani RN 11/09/2023 8:51 AM TCC estimate [facility] can accept 11/09 vs 11/10 when diet advanced and tolerated( FLD 11/09/23) Snf inquiring if pt will dc on Iv Invanz. 11/10/2023 Hannah Multani RN 11/08/2023 8:30 AM TCC estimate [facility] can accept / vs 11/10 when diet advanced and tolerated. Snf inquiring if pt will dc on Iv Invanz. 11/10/2023 Hannah Multani RN 11/07/2023 8:52 AM TCC estimate possible SNF 11/06- snf recommneded. Needs choices. 11/10/2023 SATYA [place] 11/06/2023 9:07 AM 11/10/2023 Tiffany Bansal RN 11/06/2023 7:43 AM TCC estimate possible SNF 11/07/2023 Michael Berumen, DO 11/04/2023 4:35 AM 11/06/2023 Michael Bermuen DO 11/04/2023 12:20 AM Length of Stay (Days): 5 GMLOS: 9.8 [facility] 11-09-2023 Note Formatting of this n ote is different from the original. Images from the original note were not included. Care Management Progress Note Pt is POD 5 for colon resection/ Mock's procedure with colostomy. Iv invanz continues to infuze FLD to be advanced. Ostomy with small soft liq stool output. Tcc messaged team regarding duration of IV antibiotics or plan for antibiotic coverage at wa. Awaiting response. Tasked updates to be sent to facility[facility] Tcc following. Discharge Milestones and Delays Expected Date/Time: 11/10/[address] discharge order Complete med reconciliation Case mgmt discharge readiness Clinical Stability Diagnsotic Workup Expected Discharge History Expected Date/Time Set By Reviewed At 11/10/2023 Hannah Multani RN 11/09/2023 8:51 AM TCC estimate [facility] can accept 11/09 vs 11/10 when diet advanced and tolerated( FLD 11/09/23) Snf inquiring if pt will dc on Iv Invanz. 11/10/2023 Hannah Multani RN 11/08/2023 8:30 AM TCC estimate [facility] can accept 2/ vs 2 when diet advanced and tolerated. Snf inquiring if pt will dc on Iv Invanz. 11/10/2023 Hannah Multani RN 11/07/2023 8:52 AM TCC estimate possible SNF 11/06- snf recommneded. Needs choices. 11/10/2023 SATYA [place] 11/06/2023 9:07 AM 11/10/2023 Tiffany Bansal RN 11/06/2023 7:43 AM TCC estimate possible SNF 11/07/2023 Michael Berumen DO 11/04/2023 4:35 AM 11/06/2023 Michael Berumen DO 11/04/2023 12:20 AM Length of Stay (Days): 5 GMLOS: 9.8 [facility] 11-09-2023 Plan of care note The patient is Moderately Stable - Low risk of patient condition declining or worsening The patient's goals for the shift include rest The clinical goals for the shift include rest Over the shift, the patient did not make progress toward the following goals. Barriers to progression include. Recommendations to address these barriers include. [facility] 11-07-2023 Note Formatting of this n ote might be different from the original. Sent updated notes to [facility] via [facility] per TCC request. Await review and response regarding ability to accept. TCC notified. [facility] 11-07-2023 Note Formatting of this n ote might be different from the original. Sent updated notes to [facility] via [facility] per TCC request. Await review and response regarding ability to accept. TCC notified. [facility] 11-07-2023 Note Formatting of this n ote might be different from the original. Referral placed to [facility] via [facility] per TCC request. Await review and response regarding ability to accept. TCC notified. [facility] 11-07-2023 Note Formatting of this n ote might be different from the original. Referral placed to [facility] via [facility] per TCC request. Await review and response regarding ability to accept. TCC notified. [facility] 11-07-2023 Note Referral placed to [facility] via [facility] per TCC request. Await review and response regarding ability to accept. TCC notified. [facility] 11-07-2023 Consult note Formatting of th is note is different from the original. Images from the original note were not included. [facility] Wound Care CONSULT Note Priscila Cha AGE: 67 y.o. GENDER: female : 1955 Subjective: HISTORY of PRESENT ILLNESS HPI Priscila Cha is a 67 y.o. female who presents for a wound consult. HPI: Patient has a history of perforated sigmoid diverticulitis with feculent peritonitis. Presented to the emergency department on 11/03 with complaints of worsening abdominal pain over the past 2 to 3 days. She does have a history of sigmoid diverticulitis starting back to June of this past year. She also recently underwent hip arthroplasty several weeks ago. She had a partial left colectomy with end ostomy, Mock's procedure, on 11/[address] Lopez. Patient resting in bed at time of visit. She is alert. States that she is experiencing abdominal pain but cannot pinpoint site of pain. Generalized. Wounds assessed at time of visit. PAST MEDICAL HISTORY Active Ambulatory Problems Diagnosis Date Noted COPD exacerbation (HCC) 06/20/2022 Dizziness 10/15/2021 Community acquired pneumonia 01/13/2022 Chest pain 06/19/2022 Pneumonia 03/04/2019 Diverticulitis 06/23/2023 Chronic pain 06/24/2023 Multilevel degenerative disc disease 06/24/2023 Spondylolisthesis of lumbar region 07/06/2017 Spondylolisthesis at L5-S1 level 06/24/2023 Spondylolisthesis at L4-L5 level 07/06/2017 Primary hypertension 06/24/2023 Moderate malnutrition (CMS/HCC) (HCC) 07/04/2023 Sigmoid diverticulitis 07/19/2023 Intra-abdominal abscess (CMS/HCC) (HCC) 08/02/2023 Antibiotic drug intolerance 08/02/2023 LLQ abdominal pain 09/27/2023 Resolved Ambulatory Problems Diagnosis Date Noted No Resolved Ambulatory Problems Past Medical History: Diagnosis Date Arthritis PAST SURGICAL HISTORY Past Surgical History: Procedure Laterality Date BACK SURGERY N/A 2017 lower back in middle EXPLORATORY LAPAROTOMY 11/04/2023 colon resection, colostomy MANDIBLE SURGERY Bilateral 1983 wires on both jaws now TONSILLECTOMY (HISTORICAL) FAMILY HISTORY Family History Problem Relation Name Age of Onset No Known Problems Other No Known Problems Brother No Known Problems Maternal Grandfather No Known Problems Paternal Grandfather No Known Problems Sister No Known Problems Maternal Grandmother No Known Problems Paternal Grandmother SOCIAL HISTORY Social History Tobacco Use Smoking status: Every Day Packs/day: .25 Types: Cigarettes Smokeless tobacco: Current Tobacco comments: Quit smoking: trying to quit Substance Use Topics Alcohol use: Not Currently Drug use: Yes Types: Marijuana Comment: Medical Marijuana and gummies ALLERGIES Allergies Allergen Reactions Codeine Levofloxacin Other reaction(s): GI Upset, U Sulfa Antibiotics Other reaction(s): Vomiting MEDICATIONS No current facility-administered medications on file prior to encounter. Current Outpatient Medications on File Prior to Encounter Medication Sig Dispense Refill albuterol 108 (90 Base) MCG/ACT inhaler Inhale 2 puffs every 4 hours as needed for shortness of breath or wheezing. clonazePAM (KlonoPIN) 0.5 MG tablet Take 0.5 mg by mouth 2 times daily. Yeopnmibegk-Tprdnhzqy-Xgdfkx (Trelegy Ellipta) 100-62.5-25 MCG/ACT aerosol powder Inhale 1 puff daily. gabapentin (Neurontin) 300 MG capsule Take 300 mg by mouth 2 times daily as needed. senna-docusate sodium (Senokot-S) 8.6-50 MG tablet Take 2 tablets by mouth daily. 60 tablet 11 traZODone (Desyrel) 50 MG tablet Take 50 mg by mouth every evening. [DISCONTINUED] amLODIPine (Norvasc) 5 MG tablet Take 1 tablet by mouth daily. [DISCONTINUED] HYDROcodone-acetaminophen ([place]) 5-325 MG tablet REVIEW OF SYSTEMS Pertinent items are noted in HPI. Objective: BP (!) 164/72 Pulse 84 Temp 36.4 C (97.5 F) (Temporal) Resp 21 Ht 5' 1.81 (1.57 m) Wt 134 lb 0.6 oz (60.8 kg) LMP (LMP Unknown) SpO2 95% BMI 24.67 kg/m PHYSICAL EXAM General appearance: in no respiratory distress and acyanotic, alert, oriented times 3, and moderately ill Skin: warm and dry Pulmonary: Normal effort, no respiratory distress, no cyanosis Abdomen: guarded, midline incision with divine intact. Well approximated. Small amount of blood noted in JAIMIE surgery site drainage tube. Ostomy site intact, appliance intact with small amount of light brown liquid in pouch. Extremities: no cyanosis, clubbing or edema Right hip: 16cm surgical wound. Well approximated with steri-strips intact. No drainage present at this time. No surrounding erythema. LABS CBC: Lab Results Component Value Date WBC 11.8 (H) 11/07/2023 HGB 7.5 (L) 11/07/2023 HCT 23.3 (L) 11/07/2023 MCV 80.2 11/07/2023 PLT 555 (H) 11/07/2023 BMP: Lab Results Component Value Date NA 133 (L) 11/07/2023 K 3.5 11/07/2023 CL 108 (H) 11/07/2023 CO2 23 11/07/2023 BUN 16 11/07/2023 CREATININE 0.44 (L) 11/07/2023 PT/INR: No results found for: PROTIME , INR Prealbumin: No results found for: PREALBUMIN Albumin:No components found for: LABALBU Sed Rate:No results found for: SEDRATE Micro: No components found for: BC Assessment/Plan: Partial left colectomy with end ostomy -Plan for ostomy teaching tomorrow -Ostomy teaching kit brought to room Right hip: Surgical -Steri-strips in place -Cleanse with soap and water, do not scrub and leave MEREDITH Recommend to follow up at [facility] wound care [place] after hospital discharge. Thank you for the consult! I personally obtained the shahid and critical portions of the history and physical exam. I reviewed the labs, imaging studies, and electronic medical record. I reviewed the chart documentation and discussed the patient with treatment team members. I have edited the note to reflect my clinical findings and my assessment and plan. Please note, the time of this note does not reflect the time I saw this patient today, but the time of this documentaton. Portions of this note including HPI, ROS, impression/plan, and examination may have been copied forward from admission to today as to provide important historical information essential in contributing to medical decision making. Documentation has been reviewed and edited as necessary to support clinical decision making for today's visit and to reflect my own independent evaluation of this patient. Decision making for today's visit and to reflect my own independent evaluation of this patient. RDO Cain [employer] Phone: 11-07-2023 Consult note Formatting of th is note is different from the original. Images from the original note were not included. [facility] Wound Care CONSULT Note Priscila Cha AGE: 67 y.o. GENDER: female : 1955 Subjective: HISTORY of PRESENT ILLNESS HPI Priscila Cha is a 67 y.o. female who presents for a wound consult. HPI: Patient has a history of perforated sigmoid diverticulitis with feculent peritonitis. Presented to the emergency department on 11/03 with complaints of worsening abdominal pain over the past 2 to 3 days. She does have a history of sigmoid diverticulitis starting back to June of this past year. She also recently underwent hip arthroplasty several weeks ago. She had a partial left colectomy with end ostomy, Mock's procedure, on 11/[address] Lopez. Patient resting in bed at time of visit. She is alert. States that she is experiencing abdominal pain but cannot pinpoint site of pain. Generalized. Wounds assessed at time of visit. PAST MEDICAL HISTORY Active Ambulatory Problems Diagnosis Date Noted COPD exacerbation (HCC) 06/20/2022 Dizziness 10/15/2021 Community acquired pneumonia 01/13/2022 Chest pain 06/19/2022 Pneumonia 03/04/2019 Diverticulitis 06/23/2023 Chronic pain 06/24/2023 Multilevel degenerative disc disease 06/24/2023 Spondylolisthesis of lumbar region 07/06/2017 Spondylolisthesis at L5-S1 level 06/24/2023 Spondylolisthesis at L4-L5 level 07/06/2017 Primary hypertension 06/24/2023 Moderate malnutrition (CMS/HCC) (HCC) 07/04/2023 Sigmoid diverticulitis 07/19/2023 Intra-abdominal abscess (CMS/HCC) (HCC) 08/02/2023 Antibiotic drug intolerance 08/02/2023 LLQ abdominal pain 09/27/2023 Resolved Ambulatory Problems Diagnosis Date Noted No Resolved Ambulatory Problems Past Medical History: Diagnosis Date Arthritis PAST SURGICAL HISTORY Past Surgical History: Procedure Laterality Date BACK SURGERY N/A 2017 lower back in middle EXPLORATORY LAPAROTOMY 11/04/2023 colon resection, colostomy MANDIBLE SURGERY Bilateral 1983 wires on both jaws now TONSILLECTOMY (HISTORICAL) FAMILY HISTORY Family History Problem Relation Name Age of Onset No Known Problems Other No Known Problems Brother No Known Problems Maternal Grandfather No Known Problems Paternal Grandfather No Known Problems Sister No Known Problems Maternal Grandmother No Known Problems Paternal Grandmother SOCIAL HISTORY Social History Tobacco Use Smoking status: Every Day Packs/day: .25 Types: Cigarettes Smokeless tobacco: Current Tobacco comments: Quit smoking: trying to quit Substance Use Topics Alcohol use: Not Currently Drug use: Yes Types: Marijuana Comment: Medical Marijuana and gummies ALLERGIES Allergies Allergen Reactions Codeine Levofloxacin Other reaction(s): GI Upset, U Sulfa Antibiotics Other reaction(s): Vomiting MEDICATIONS No current facility-administered medications on file prior to encounter. Current Outpatient Medications on File Prior to Encounter Medication Sig Dispense Refill albuterol 108 (90 Base) MCG/ACT inhaler Inhale 2 puffs every 4 hours as needed for shortness of breath or wheezing. clonazePAM (KlonoPIN) 0.5 MG tablet Take 0.5 mg by mouth 2 times daily. Xlsynmrmcxa-Yatwldiup-Ajbsog (Trelegy Ellipta) 100-62.5-25 MCG/ACT aerosol powder Inhale 1 puff daily. gabapentin (Neurontin) 300 MG capsule Take 300 mg by mouth 2 times daily as needed. senna-docusate sodium (Senokot-S) 8.6-50 MG tablet Take 2 tablets by mouth daily. 60 tablet 11 traZODone (Desyrel) 50 MG tablet Take 50 mg by mouth every evening. [DISCONTINUED] amLODIPine (Norvasc) 5 MG tablet Take 1 tablet by mouth daily. [DISCONTINUED] HYDROcodone-acetaminophen ([place]) 5-325 MG tablet REVIEW OF SYSTEMS Pertinent items are noted in HPI. Objective: BP (!) 164/72 Pulse 84 Temp 36.4 C (97.5 F) (Temporal) Resp 21 Ht 5' 1.81 (1.57 m) Wt 134 lb 0.6 oz (60.8 kg) LMP (LMP Unknown) SpO2 95% BMI 24.67 kg/m PHYSICAL EXAM General appearance: in no respiratory distress and acyanotic, alert, oriented times 3, and moderately ill Skin: warm and dry Pulmonary: Normal effort, no respiratory distress, no cyanosis Abdomen: guarded, midline incision with divine intact. Well approximated. Small amount of blood noted in JAIMIE surgery site drainage tube. Ostomy site intact, appliance intact with small amount of light brown liquid in pouch. Extremities: no cyanosis, clubbing or edema Right hip: 16cm surgical wound. Well approximated with steri-strips intact. No drainage present at this time. No surrounding erythema. LABS CBC: Lab Results Component Value Date WBC 11.8 (H) 11/07/2023 HGB 7.5 (L) 11/07/2023 HCT 23.3 (L) 11/07/2023 MCV 80.2 11/07/2023 PLT 555 (H) 11/07/2023 BMP: Lab Results Component Value Date NA 133 (L) 11/07/2023 K 3.5 11/07/2023 CL 108 (H) 11/07/2023 CO2 23 11/07/2023 BUN 16 11/07/2023 CREATININE 0.44 (L) 11/07/2023 PT/INR: No results found for: PROTIME , INR Prealbumin: No results found for: PREALBUMIN Albumin:No components found for: LABALBU Sed Rate:No results found for: SEDRATE Micro: No components found for: BC Assessment/Plan: Partial left colectomy with end ostomy -Plan for ostomy teaching tomorrow -Ostomy teaching kit brought to room Right hip: Surgical -Steri-strips in place -Cleanse with soap and water, do not scrub and leave MEREDITH Recommend to follow up at [facility] wound care center after hospital discharge. Thank you for the consult! I personally obtained the shahid and critical portions of the history and physical exam. I reviewed the labs, imaging studies, and electronic medical record. I reviewed the chart documentation and discussed the patient with treatment team members. I have edited the note to reflect my clinical findings and my assessment and plan. Please note, the time of this note does not reflect the time I saw this patient today, but the time of this documentaton. Portions of this note including HPI, ROS, impression/plan, and examination may have been copied forward from admission to today as to provide important historical information essential in contributing to medical decision making. Documentation has been reviewed and edited as necessary to support clinical decision making for today's visit and to reflect my own independent evaluation of this patient. Decision making for today's visit and to reflect my own independent evaluation of this patient. Vancomycin therapy has been discontinued by Ирина Toledo on 11/06. Thank you for the consult. Pharmacy signing off for vancomycin dosing. Flavia Baez RPh, Date: 11/06/23 Time: 12:49 PM Pharmacy Note Vancomycin Consult [employer] Priscila Cha is a 67 y.o. year old female ordered vancomycin for bacteremia; consult from Dr. Carpenter to manage therapy. Patient Active Problem List Diagnosis Date Noted Abdominal pain, generalized 11/04/2023 LLQ abdominal pain 09/27/2023 Intra-abdominal abscess (CMS/HCC) ([facility]) 08/02/2023 Antibiotic drug intolerance 08/02/2023 Sigmoid diverticulitis 07/19/2023 Moderate malnutrition (CMS/HCC) ([facility]) 07/04/2023 Chronic pain 06/24/2023 Multilevel degenerative disc disease 06/24/2023 Spondylolisthesis at L5-S1 level 06/24/2023 Primary hypertension 06/24/2023 Diverticulitis 06/23/2023 COPD exacerbation (HCC) 06/20/2022 Community acquired pneumonia 01/13/2022 Spondylolisthesis of lumbar region 07/06/2017 Spondylolisthesis at L4-L5 level 07/06/2017 Chest pain 06/19/2022 Dizziness 10/15/2021 Pneumonia 03/04/2019 Codeine, Levofloxacin, and Sulfa antibiotics CREATININE Date Value Ref Range Status 11/04/2023 0.71 0.52 - 1.04 mg/dL Final 06/22/2022 0.73 0.52 - 1.25 mg/dL Final UREA NITROGEN Date Value Ref Range Status 11/04/2023 21 (H) 7 - 17 mg/dL Final Auto WBC Date Value Ref Range Status 11/04/2023 17.7 (H) 3.6 - 10.7 10*3/uL Final Ht Readings from Last 1 Encounters: 11/04/23 1.57 m (5' 1.81 ) Wt Readings from Last 1 Encounters: 11/04/23 60.8 kg (134 lb 0.6 oz) Plan: Will initiate vancomycin 750 mg IV every 12 hours based on predicted AUC of 474 mg/L.hr . Goal AUC is 400-600 mg/L.hr. Random level will be scheduled for 11/06/23 @ 0500. Thank you for the consult. Will continue to follow. Associated Order(s): IP CONSULT TO INTERNAL MEDICINE Images from the original note were not included. Hospital Medicine Consult Patient - Priscila Cha, Age - 67 y.o. - 1955 Room Number - [id number] Consulting - Adria Lopez MD Primary [facility] Physician [phone] Date of Admission - 11/03/2023 7:19 PM Hospital Day - 0 Reason for Consult: Medical Management HISTORY OF PRESENT ILLNESS: Priscila is a 67 y.o. female with history of hypertension, COPD, arthritis, and a history of diverticulitis of sigmoid presented to the emergency with increased abdomen pain, fever, and chills on 11/03. In the ED she was found to have diffuse peritonitis, with CT scan showing perforation, adjacent abscess with pockets of free air. Labs showed LA 2.1, leukocytosis 16,000. General surgery took patient to the OR for partial left colectomy with end ostomy (Mock procedure), we were consulted for medical management. Past Medical History: Past Medical History: Diagnosis Date Arthritis COPD exacerbation (HCC) 06/20/2022 Pneumonia 03/04/2019 Primary hypertension 06/24/2023 Past Surgical History: Past Surgical History: Procedure Laterality Date BACK SURGERY N/A 2017 lower back in [facility] EXPLORATORY LAPAROTOMY 11/04/2023 colon resection, colostomy MANDIBLE SURGERY Bilateral 1983 wires on both jaws now TONSILLECTOMY (HISTORICAL) Medications: [START ON 11/05/2023] enoxaparin, 40 mg, SubCUTAneous, Daily piperacillin-tazobactam, 3,375 mg, IntraVENous, q8h sodium chloride 0.9%, 10 mL, IntraVENous, 2 times per day dextrose 5 % and sodium chloride 0.45 %, 125 mL/hr, Last Rate: 125 mL/hr (11/04/23 1125) PRN medications: acetaminophen, HYDROmorphone OR HYDROmorphone, naloxone, ondansetron ODT OR ondansetron, phenol, sodium chloride, sodium chloride 0.9% Allergies: Codeine, Levofloxacin, and Sulfa antibiotics Social History: Social History Socioeconomic History Marital status: Spouse name: Not on file Number of children: Not on file Years of education: Not on file Highest education level: Not on file Occupational History Not on file Tobacco Use Smoking status: Every Day Packs/day: .25 Types: Cigarettes Smokeless tobacco: Current Tobacco comments: Quit smoking: trying to quit Substance and Sexual Activity Alcohol use: Not Currently Drug use: Yes Types: Marijuana Comment: Medical Marijuana and gummies Sexual activity: Defer Other Topics Concern Not on file Social History Narrative Not on file Social Determinants of Health Financial Resource Strain: Not on file Food Insecurity: Not on file Transportation Needs: No Transportation Needs (11/04/2023) PRAPARE - Transportation Lack of Transportation (Medical): No Lack of Transportation (Non-Medical): No Physical Activity: Not on file Stress: Not on file Social Connections: Not on file Intimate Partner Violence: Not At Risk (11/04/2023) Humiliation, Afraid, Rape, and Kick questionnaire Fear of Current or Ex-Partner: No Emotionally Abused: No Physically Abused: No Sexually Abused: No Housing Stability: Low Risk (11/04/2023) Housing Stability Vital Sign Unable to Pay for Housing in the Last Year: No Number of Places Lived in the Last Year: 1 Unstable Housing in the Last Year: No Family History: Family History Problem Relation Name Age of Onset No Known Problems Other No Known Problems Brother No Known Problems Maternal Grandfather No Known Problems Paternal Grandfather No Known Problems Sister No Known Problems Maternal Grandmother No Known Problems Paternal Grandmother REVIEW OF SYSTEMS: 10 point ROS obtained, as per HPI, otherwise NEG Physical Exam: Vitals: BP 120/70 (BP Location: Left arm, Patient Position: Lying) Pulse 90 Temp 36.3 C (97.4 F) (Temporal) Resp 16 Ht 5' 1.81 (1.57 m) Wt 134 lb 0.6 oz (60.8 kg) LMP (LMP Unknown) SpO2 100% BMI 24.67 kg/m BMI Classification: Normal Weight (BMI 18.5-24.9) Pulse Ox: SpO2 Av.9 % Min: 93 % Max: 100 % Supplemental O2: O2 Flow Rate (L/min): 5 L/min Physical Exam Vitals and nursing note reviewed. HENT: Mouth/Throat: Pharynx: Oropharynx is clear. Eyes: Conjunctiva/sclera: Conjunctivae normal. Cardiovascular: Rate and Rhythm: Normal rate. Heart sounds: No murmur heard. Pulmonary: Effort: Pulmonary effort is normal. No respiratory distress. Breath sounds: No wheezing or rales. Abdominal: General: Bowel sounds are normal. Tenderness: There is abdominal tenderness. There is guarding. Comments: Ostomy site intact, no stool in bag, Surgery site covered with dressing, small amount of shadowing, tender to palpation. NG tube draining small amount of bile. Small amount of blood in surgery site drainage tube Musculoskeletal: General: Tenderness and signs of injury present. Right lower leg: No edema. Comments: Right hip dressing with steri strips - incision intact with no drainage. Tender on palpation Skin: General: Skin is warm. Capillary Refill: Capillary refill takes less than 2 seconds. Coloration: Skin is pale. Neurological: General: No focal deficit present. Mental Status: She is alert and oriented to person, place, and time. LABS: Recent Results (from the past 24 hour(s)) ECG 12 lead Collection Time: 11/03/23 7:37 PM Result Value Ref Range Heart Rate 118 bpm QRSD Interval 59 ms QT Interval 320 ms QTC Interval 449 ms P [place] 76 degrees QRS [place] 38 degrees T Wave [place] 57 degrees NM Interval 148 ms CBC auto differential Collection Time: 11/03/23 8:11 PM Result Value Ref Range Auto WBC 16.6 (H) 3.6 - 10.7 10*3/uL RBC 4.23 3.8 - 5.20 10*6/uL Hemoglobin 10.9 (L) 11.7 - 16.0 g/dL Hematocrit 33.3 (L) 35.0 - 47.0 % MCV 78.8 (L) 80.0 - 98.0 fL MCH 25.8 (L) 26.0 - 34.0 pg MCHC 32.8 32.0 - 36.0 % RDW 18.5 (H) 11.5 - 14.5 % Platelets 886 (H) 140 - 440 10*3/uL MPV 7.3 (L) 7.4 - 12.4 fL nRBC 0.0 0.0 - 2.0 /100 WBCs Lipase Collection Time: 11/03/23 8:11 PM Result Value Ref Range LIPASE <10 (L) 23 - 300 U/L Hepatic function panel Collection Time: 11/03/23 8:11 PM Result Value Ref Range BILIRUBIN, TOTAL 0.9 0.2 - 1.3 mg/dL BILIRUBIN, DIRECT 0.0 0.0 - 0.3 mg/dL ALKALINE PHOSPHATASE 100 38 - 126 U/L AST (SGOT) 38 15 - 46 U/L ALT 18 0 - 34 U/L ALBUMIN 3.1 (L) 3.5 - 5.0 g/dL TOTAL PROTEIN 6.8 6.3 - 8.2 g/dL Basic metabolic panel Collection Time: 11/03/23 8:11 PM Result Value Ref Range SODIUM 134 (L) 135 - 145 mmol/L POTASSIUM 4.0 3.5 - 5.1 mmol/L CHLORIDE 99 98 - 107 mmol/L CARBON DIOXIDE 27 22 - 30 mmol/L UREA NITROGEN 21 (H) 7 - 17 mg/dL CREATININE 0.66 0.52 - 1.04 mg/dL GLUCOSE 131 (H) 70 - 100 mg/dL CALCIUM 10.0 8.4 - 10.4 mg/dL ANION GAP 8 3 - 13 mmol/L eGFR >90.0 >60.0 mL/min/1.73m*2 Troponin, with Serial Reflex Collection Time: 11/03/23 8:11 PM Result Value Ref Range TROPONIN I <0.012 <0.034 ng/mL Man Differential Collection Time: 11/03/23 8:11 PM Result Value Ref Range Adjusted WBC 16.6 (H) 3.6 - 10.7 10*3/uL Neutrophils % 92 (H) 40 - 80 % Lymphocytes % 4 (L) 20 - 40 % Monocytes % 4 2 - 10 % Absolute Neutrophil Count 15.3 (H) 1.8 - 7.0 10*3/uL Lymphocytes Absolute 0.7 (L) 1.0 - 4.3 10*3/uL Monocytes Absolute 0.7 0.0 - 0.8 10*3/uL RBC Morphology Normal WBC Morphology Normal Clumped Platelets Present (A) (none) Total Counted 100 Neutrophils Manual 92 Lymphocytes Manual 4 Monocytes Manual 4 Differential Method Automated differential reported after manual slide review Lactic acid with reflex Collection Time: 11/03/23 9:04 PM Result Value Ref Range LACTIC ACID 2.1 (H) 0.7 - 2.0 mmol/L Blood culture Site #1 - Suspected Infection Collection Time: 11/03/23 9:04 PM Specimen: Blood, Venous Result Value Ref Range Blood Culture Blood culture incubation started Type and Screen Collection Time: 11/03/23 9:04 PM Result Value Ref Range ABO Grouping O Antibody Screen NEG Rh Type POS PROTIME/INR & PTT Collection Time: 11/03/23 9:04 PM Result Value Ref Range PROTHROMBIN TIME 13.1 (H) 9.0 - 12.0 s INR 1.2 (H) 0.9 - 1.1 APTT 24.6 20.0 - 30.5 s Confirmatory ABO/Rh Collection Time: 11/03/23 9:04 PM Result Value Ref Range ABO Grouping O Rh Type POS Blood culture Site #2 - Suspected Infection Collection Time: 11/03/23 9:23 PM Specimen: Blood, Venous Result Value Ref Range Blood Culture Blood culture incubation started COVID-19, Flu A/B, and RSV Combo Collection Time: 11/03/23 9:23 PM Specimen: Nasopharynx; Swab Result Value Ref Range SARS-CoV-2 Not Detected Not Detected Respiratory Syncytial Virus Not Detected Not Detected Influenza A Not Detected Not Detected Influenza B Not Detected Not Detected Troponin I Collection Time: 11/03/23 11:28 PM Result Value Ref Range TROPONIN I <0.012 <0.034 ng/mL Troponin I Collection Time: 11/04/23 5:24 AM Result Value Ref Range TROPONIN I <0.012 <0.034 ng/mL Lactic acid with reflex Collection Time: 11/04/23 5:24 AM Result Value Ref Range LACTIC ACID 1.8 0.7 - 2.0 mmol/L CBC Collection Time: 11/04/23 5:24 AM Result Value Ref Range Auto WBC 17.7 (H) 3.6 - 10.7 10*3/uL RBC 3.36 (L) 3.8 - 5.20 10*6/uL Hemoglobin 8.6 (L) 11.7 - 16.0 g/dL Hematocrit 26.9 (L) 35.0 - 47.0 % MCV 80.0 80.0 - 98.0 fL MCH 25.7 (L) 26.0 - 34.0 pg MCHC 32.2 32.0 - 36.0 % RDW 18.2 (H) 11.5 - 14.5 % Platelets 669 (H) 140 - 440 10*3/uL MPV 7.1 (L) 7.4 - 12.4 fL Basic metabolic panel Collection Time: 11/04/23 5:24 AM Result Value Ref Range SODIUM 135 135 - 145 mmol/L POTASSIUM 4.4 3.5 - 5.1 mmol/L CHLORIDE 108 (H) 98 - 107 mmol/L CARBON DIOXIDE 22 22 - 30 mmol/L UREA NITROGEN 21 (H) 7 - 17 mg/dL CREATININE 0.71 0.52 - 1.04 mg/dL GLUCOSE 156 (H) 70 - 100 mg/dL CALCIUM 8.0 (L) 8.4 - 10.4 mg/dL ANION GAP 5 3 - 13 mmol/L eGFR >90.0 >60.0 mL/min/1.73m*2 Urine Culture: No results found for this or any previous visit. IMAGING: See report Assessment Data: (CAT1) Reviewed 3 or more notes from different specialty or health system (each=1). (CAT1) Reviewed 3 or more labs/studies ordered by another provider not previously counted (each=1, panels count as 1). (LOW: 2x CAT1 or independent historian MOD: 3x CAT1 or 1x CAT3 EXTENSIVE: 3x CAT1 and 1x CAT3) Acute, acute on chronic, unstable/uncontrolled chronic problems/diagnoses: Abdomen pain 2/2 ruptured sigmoid diverticulitis s/p mock procedures. Left sided Total hip arthroplasty on 10/16/2023 Anxiety Klonapin 0.5mg PO BID -> converted to 1mg Ativan IV BID - > will put back to oral once patient able to tolerate oral HOLD gabapentin and trazadone due to NPO with no medications - > resume later Asthma -OK to use home trillogy Plan As a result of the above findings & factors, the following mgmt was pursued: - antibiotics per primary, GI ppx, DVT ppx, PRN pain medications, PRN antiemetics per primary service. Labs in the AM. Home medications addressed and resumed as indicated. PT/OT eval and treat. Discharge planning per surgery - Converted Klonapin to IV form - No IV form of trazadone -> if needed - can try benadryl IV, haldol or something this evening - monitor in and out from NG and wound. - am labs, replace lytes prn - PT/OT/CM/SW - delirium precautions: increase activity and limit nighttime disturbances - DVT prophylaxis: encourage ambulation Complexity: Acute illness or injury posing a threat to life or body function (HIGH). Risk: Admission to hospital-level care was considered or occurred (HIGH). Consult to surgery for major surgery, or minor surgery with identified patient or procedural risk factors, was considered or occurred (MOD). Advance Directive: Full Code Anticipated Discharge - Date - TBD - Location - home - Pending the following - clinical improvement Total time spent (which include face to face and non face to face encounters) : 78 minutes Toxic drug monitoring/narrow therapeutic index drug monitoring : # Drug name : Ativan IV # Method of monitoring : mentation - De-escalate when tolerating po Extended Emergency Contact Information Primary Emergency Contact: Deja Cha Mobile Relation: Spouse Ирина Toledo MD Division of Hospitalist Medicine Acute care [facility] documented in this encounter [facility] 11-07-2023 Note Formatting of this n ote is different from the original. Images from the original note were not included. Care Management Progress Note Pt POD 3 colon resection w colostomy NPO NGT out IVF infusing IV antibiotics LLQ ostomy Gen surgery following and Awaiting bowel function. Pt's spouse at bedside. Pt lying calmly reporting being in A lot of pain . [facility] reviewed therapy recommendations with pt and spouse Deja. Deja reported that they would like referrals placed to [facility] and [place]. Tcc also reported that [facility] is following and should patient pass therapy and be able to dc home safely would be able to pursue hhc services. Deja reports that [facility] care was active with patient post L [place] this past Sep. Tcc to Task [facility] to send referrals to [place] and [facility] Discharge Milestones and Delays Expected Date/Time: 11/10/[address] discharge order Complete med reconciliation Case mgmt discharge readiness Clinical Stability Diagnsotic Workup Expected Discharge History Expected Date/Time Set By Reviewed At 11/10/2023 Hannah Multani RN 11/07/2023 8:52 AM TCC estimate possible SNF 11/06- snf recommneded. Needs choices. 11/10/2023 SATYA [place] 11/06/2023 9:07 AM 11/10/2023 Tiffany Bansal RN 11/06/2023 7:43 AM TCC estimate possible SNF 11/07/2023 Michael Berumen DO 11/04/2023 4:35 AM 11/06/2023 Michael Berumen DO 11/04/2023 12:20 AM Length of Stay (Days): 3 GMLOS: 9.8 [facility] 11-07-2023 Note Formatting of this n ote is different from the original. Images from the original note were not included. Care Management Progress Note Pt POD 3 colon resection w colostomy NPO NGT out IVF infusing IV antibiotics LLQ ostomy Gen surgery following and Awaiting bowel function. Pt's spouse at bedside. Pt lying calmly reporting being in A lot of pain . Tcc reviewed therapy recommendations with pt and spouse Deja. Deja reported that they would like referrals placed to [facility] and [place]. Tcc also reported that [facility] is following and should patient pass therapy and be able to dc home safely would be able to pursue hhc services. Deja reports that [facility] care was active with patient post L [place] this past Sep. Tcc to Task [facility] to send referrals to [place] and [facility] Discharge Milestones and Delays Expected Date/Time: 11/10/[address] discharge order Complete med reconciliation Case mgmt discharge readiness Clinical Stability Diagnsotic Workup Expected Discharge History Expected Date/Time Set By Reviewed At 11/10/2023 Hannah Multani RN 11/07/2023 8:52 AM TCC estimate possible SNF 11/06- snf recommneded. Needs choices. 11/10/2023 SATYA [place] 11/06/2023 9:07 AM 11/10/2023 Tiffany Bansal RN 11/06/2023 7:43 AM TCC estimate possible SNF 11/07/2023 Michael Berumen DO 11/04/2023 4:35 AM 11/06/2023 Michael Berumen DO 11/04/2023 12:20 AM Length of Stay (Days): 3 GMLOS: 9.8 [facility] 11-06-2023 Consult note Formatting of th is note might be different from the original. Vancomycin therapy has been discontinued by Ирина Toledo on 11/06. Thank you for the consult. Pharmacy signing off for vancomycin dosing. Flavia Baez RPh, Date: 11/06/23 Time: 12:49 PM [facility] 11-06-2023 Note Problem: Pain - Adul t Goal: Verbalizes/displays adequate comfort level or baseline comfort level Outcome: Progressing Problem: Safety - Adult Goal: Free from fall injury Outcome: Progressing The patient is [facility] 11-06-2023 Plan of care note Problem: Pain - Adult Goal: Verbalizes/displays adequate comfort level or baseline comfort level Outcome: Progressing Problem: Safety - Adult Goal: Free from fall injury Outcome: Progressing The patient is [facility] 11-06-2023 Note Formatting of this n ote is different from the original. Images from the original note were not included. Care Management Progress Note TRANSITIONAL CARE DAILY NOTE/UPDATES: Patient remains on 2E due to abdominal pain. S/P EXPLORATORY LAPAROTOMY with partial colon resection and colostomy 11/04. Clinical updates: Patient NPO, NG was pulled out and ok to leave out. Has a watkins, on IV fluids, IV antibiotics. Has a new colostomy, has a LLQ drain.General Surgery following. Discharge plan: SNF. Spoke to patient at bedside, she is agreeable to SNF. List given, Medicare star rating and [facility] explained. Patient verbalized understanding. She wants to look it over with her and will give choices. Discharge obstacles: none noted. TCC to continue to follow. Discharge Milestones and Delays Expected Date/Time: 11/10/[address] discharge order Complete med reconciliation Case mgmt discharge readiness Clinical Stability Diagnsotic Workup Expected Discharge History Expected Date/Time Set By Reviewed At 11/10/2023 SATYA [place] 11/06/2023 9:07 AM TCC estimate possible SNF 11/06- snf recommneded. Needs choices. 11/10/2023 Tiffany Bansal RN 11/06/2023 7:43 AM TCC estimate possible SNF 11/07/2023 Michael Berumen DO 11/04/2023 4:35 AM 11/06/2023 Michael Berumen DO 11/04/2023 12:20 AM Length of Stay (Days): 2 GMLOS: No GMLOS Documented [facility] 11-06-2023 Note Formatting of this n ote is different from the original. Images from the original note were not included. Care Management Progress Note TRANSITIONAL CARE DAILY NOTE/UPDATES: Patient remains on 2E due to abdominal pain. S/P EXPLORATORY LAPAROTOMY with partial colon resection and colostomy 11/04. Clinical updates: Patient NPO, NG was pulled out and ok to leave out. Has a watkins, on IV fluids, IV antibiotics. Has a new colostomy, has a LLQ drain.General Surgery following. Discharge plan: SNF. Spoke to patient at bedside, she is agreeable to SNF. List given, Medicare star rating and [facility] collaborative explained. Patient verbalized understanding. She wants to look it over with her and will give choices. Discharge obstacles: none noted. TCC to continue to follow. Discharge Milestones and Delays Expected Date/Time: 11/10/[address] discharge order Complete med reconciliation Case mgmt discharge readiness Clinical Stability Diagnsotic Workup Expected Discharge History Expected Date/Time Set By Reviewed At 11/10/2023 SATYA [place] 11/06/2023 9:07 AM TCC estimate possible SNF 11/06- snf recommneded. Needs choices. 11/10/2023 Tiffany Bansal RN 11/06/2023 7:43 AM TCC estimate possible SNF 11/07/2023 Michael Berumen DO 11/04/2023 4:35 AM 11/06/2023 Michael Berumen DO 11/04/2023 12:20 AM Length of Stay (Days): 2 GMLOS: No GMLOS Documented [facility] 11-05-2023 Consult note Formatting of th is note is different from the original. Pharmacy Note Vancomycin Consult [employer] Priscila Cha is a 67 y.o. year old female ordered vancomycin for bacteremia; consult from Dr. Carpenter to manage therapy. Patient Active Problem List Diagnosis Date Noted Abdominal pain, generalized 11/04/2023 LLQ abdominal pain 09/27/2023 Intra-abdominal abscess (CMS/HCC) ([facility]) 08/02/2023 Antibiotic drug intolerance 08/02/2023 Sigmoid diverticulitis 07/19/2023 Moderate malnutrition (CMS/HCC) (HCC) 07/04/2023 Chronic pain 06/24/2023 Multilevel degenerative disc disease 06/24/2023 Spondylolisthesis at L5-S1 level 06/24/2023 Primary hypertension 06/24/2023 Diverticulitis 06/23/2023 COPD exacerbation (HCC) 06/20/2022 Community acquired pneumonia 01/13/2022 Spondylolisthesis of lumbar region 07/06/2017 Spondylolisthesis at L4-L5 level 07/06/2017 Chest pain 06/19/2022 Dizziness 10/15/2021 Pneumonia 03/04/2019 Codeine, Levofloxacin, and Sulfa antibiotics CREATININE Date Value Ref Range Status 11/04/2023 0.71 0.52 - 1.04 mg/dL Final 06/22/2022 0.73 0.52 - 1.25 mg/dL Final UREA NITROGEN Date Value Ref Range Status 11/04/2023 21 (H) 7 - 17 mg/dL Final Auto WBC Date Value Ref Range Status 11/04/2023 17.7 (H) 3.6 - 10.7 10*3/uL Final Ht Readings from Last 1 Encounters: 11/04/23 1.57 m (5' 1.81 ) Wt Readings from Last 1 Encounters: 11/04/23 60.8 kg (134 lb 0.6 oz) Plan: Will initiate vancomycin 750 mg IV every 12 hours based on predicted AUC of 474 mg/L.hr . Goal AUC is 400-600 mg/L.hr. Random level will be scheduled for 11/06/23 @ 0500. Thank you for the consult. Will continue to follow. [facility] 11-04-2023 Note Formatting of this n ote might be different from the original. Care Managment Initial Assessment Date: 11/04/2023 Patient Name: Priscila Cha : 1955 Patient Information Source of Information: Patient Cognition/Language: WFL - Within Functional Limits Permission given to 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 Dee Seen in last 2 years?: Yes Primary Caregiver: Self If assistance needed, confirmed caregiver ready, willing and able to care for patient at discharge: Yes Confirmed with: Per patient, spouse able to assist Living Arrangements Current Residence: House Number of Floors 2 Number of Entry Steps: 2 Bed/Bath Levels: Both second floor Facility: Facility Name: Plan to Return: Yes Lives with: Spouse/significant other Support Systems: Spouse/significant other, Family members Activities of Daily Living Ambulation: Independent Bathing/Dressing: Independent Elimination/Continence/Toileting: Independent Feeding: Independent Who Assists with Activities of Daily Living: Instrumental Activities of Daily Living Prescription Coverage: Yes [facility]acy Used: [facility] [address] Medication Management: Independent Transportation/Shopping: Independent Transportation Mode: Car Needs Assistance with Transportation at Discharge: No Meal Preparation: Independent Laundry/Cleaning: Independent Finances/Bill Paying: Independent Communication: Independent Types of Care Services/Equipment Utilized Care Services: (N/A) Dialysis Type: NA Durable Medical Equipment: Nebulizer Patient's Goal/Discharge Plan Patient expects to be discharged to: Home Discharge Planning Actions: Continue to follow, No needs identified Patient's Choice Rights and [employer] and Collaborative Relationships Disclosed as Indicated for Post-Acute Care: Interdisciplinary Team Engagement: Social Work Referral for: Additional Information: Spoke with patient at bedside. Introduced self and role. Patient admitted for perforated sigmoid diverticulitis with feculent peritonitis s/p partial left colectomy with end ostomy, (Mock's procedure). General surg consulted. No PT/OT consults ordered but patient is independent with all ADL/IADLs and up ad river. No needs identified. TCC will continue to follow for any changes. Sage Sher RN [facility] 11-04-2023 Note Formatting of this n ote might be different from the original. Care Managment Initial Assessment Date: 11/04/2023 Patient Name: Priscila Cha : 1955 Patient Information Source of Information: Patient Cognition/Language: WFL - Within Functional Limits Permission given to speak with patient surgical device sales representative/caregiver as indicated: Confirmation of Payer with patient/family: Yes Payer Name: Medicare / AARP [place]: No Confirmation of Primary Care Physician: Confirmed PCP Name: Dr. Dee Seen in last 2 years?: Yes Primary Caregiver: Self If assistance needed, confirmed caregiver ready, willing and able to care for patient at discharge: Yes Confirmed with: Per patient, spouse able to assist Living Arrangements Current Residence: House Number of Floors 2 Number of Entry Steps: 2 Bed/Bath Levels: Both second floor Facility: Facility Name: Plan to Return: Yes Lives with: Spouse/significant other Support Systems: Spouse/significant other, Family members Activities of Daily Living Ambulation: Independent Bathing/Dressing: Independent Elimination/Continence/Toileting: Independent Feeding: Independent Who Assists with Activities of Daily Living: Instrumental Activities of Daily Living Prescription Coverage: Yes Pharmacy Used: [facility] [address] Medication Management: Independent Transportation/Shopping: Independent Transportation Mode: Car Needs Assistance with Transportation at Discharge: No Meal Preparation: Independent Laundry/Cleaning: Independent Finances/Bill Paying: Independent Communication: Independent Types of Care Services/Equipment Utilized Care Services: (N/A) Dialysis Type: NA Durable Medical Equipment: Nebulizer Patient's Goal/Discharge Plan Patient expects to be discharged to: Home Discharge Planning Actions: Continue to follow, No needs identified Patient's Choice Rights and [employer] and Collaborative Relationships Disclosed as Indicated for Post-Acute Care: Interdisciplinary Team Engagement: Social Work Referral for: Additional Information: Spoke with patient at bedside. Introduced self and role. Patient admitted for perforated sigmoid diverticulitis with feculent peritonitis s/p partial left colectomy with end ostomy, (Mock's procedure). General surg consulted. No PT/OT consults ordered but patient is independent with all ADL/IADLs and [place]. No needs identified. TCC will continue to follow for any changes. Sage Sher RN [employer] 11-04-2023 Note Formatting of this n ote is different from the original. Addendum created 11/04/23 1311 by MINNA Snow CRNA Attestation recorded in Intraprocedure, Intraprocedure Attestations filed [employer] Work Phone: 11-04-2023 Note Addendum created 1311 by MINNA Snow CRNA Attestation recorded in Intraprocedure, Intraprocedure Attestations filed [employer] [facility] 02-17-2024 Miscellaneous Notes Addendum created 11/04/23 1311 by MINNA Snow CRNA Attestation recorded in Intraprocedure, Intraprocedure Attestations filed Patient: Priscila Cha Procedure Summary Date: 11/04/23 Room / Location: [address] Operating Room Anesthesia Start: 136 Anesthesia Stop: 340 Procedure: EXPLORATORY LAPAROTOMY with partial colon resection and colostomy (Abdomen) Diagnosis: Intestinal obstruction, unspecified cause, unspecified whether partial or complete (HCC) (Intestinal obstruction, unspecified cause, unspecified whether partial or complete (HCC) [K56.609]) Surgeons: Adria Lopez MD Responsible Provider: Kaylynn Anesthesiologist - Jorge Alberto/MD Westley Anesthesia Type: general, regional ASA Status: 4 - Emergent Anesthesia Type: general, regional Vitals Value Taken Time BP 132/63 11/04/23 0344 Temp 97.3f 11/04/23 0344 Pulse 89 11/04/23 034 Resp 99 11/04/23 0344 SpO2 14 11/04/23 034 Anesthesia Post Evaluation Patient location during evaluation: PACU Patient participation: complete - patient participated Level of consciousness: awake and alert Pain management: satisfactory to patient Airway patency: patent Dental Injury: no Cardiovascular status: acceptable, blood pressure returned to baseline and hemodynamically stable Respiratory status: acceptable and spontaneous ventilation Hydration status: euvolemic Nausea/Vomiting: controlled No notable events documented. Patient can be discharged once all PACU criteria has been met. documented in this encounter [facility] 11-04-2023 Consult note Associated Order (s): IP CONSULT TO INTERNAL MEDICINE Images from the original note were not included. Hospital Medicine Consult Patient - Priscila Cha, Age - 67 y.o. - 1955 Room Number - [id number] Consulting - Adria Lopez MD Primary Care Physician - LEONID DEE MD [facility] # - [id number] Date of Admission - 11/03/2023 7:19 PM Hospital Day - 0 Reason for Consult: Medical Management HISTORY OF PRESENT ILLNESS: Priscila is a 67 y.o. female with history of hypertension, COPD, arthritis, and a history of diverticulitis of sigmoid presented to the emergency with increased abdomen pain, fever, and chills on 11/03. In the ED she was found to have diffuse peritonitis, with CT scan showing perforation, adjacent abscess with pockets of free air. Labs showed LA 2.1, leukocytosis 16,000. General surgery took patient to the OR for partial left colectomy with end ostomy (Mock procedure), we were consulted for medical management. Past Medical History: Past Medical History: Diagnosis Date Arthritis COPD exacerbation (HCC) 06/20/2022 Pneumonia 03/04/2019 Primary hypertension 06/24/2023 Past Surgical History: Past Surgical History: Procedure Laterality Date BACK SURGERY N/A 2017 lower back in middle EXPLORATORY LAPAROTOMY 11/04/2023 colon resection, colostomy MANDIBLE SURGERY Bilateral 1983 wires on both jaws now TONSILLECTOMY (HISTORICAL) Medications: [START ON 11/05/2023] enoxaparin, 40 mg, SubCUTAneous, Daily piperacillin-tazobactam, 3,375 mg, IntraVENous, q8h sodium chloride 0.9%, 10 mL, IntraVENous, 2 times per day dextrose 5 % and sodium chloride 0.45 %, 125 mL/hr, Last Rate: 125 mL/hr (11/04/23 1125) PRN medications: acetaminophen, HYDROmorphone OR HYDROmorphone, naloxone, ondansetron ODT OR ondansetron, phenol, sodium chloride, sodium chloride 0.9% Allergies: Codeine, Levofloxacin, and Sulfa antibiotics Social History: Social History Socioeconomic History Marital status: Spouse name: Not on file Number of children: Not on file Years of education: Not on file Highest education level: Not on file Occupational History Not on file Tobacco Use Smoking status: Every Day Packs/day: .25 Types: Cigarettes Smokeless tobacco: Current Tobacco comments: Quit smoking: trying to quit Substance and Sexual Activity Alcohol use: Not Currently Drug use: Yes Types: Marijuana Comment: Medical Marijuana and gummies Sexual activity: Defer Other Topics Concern Not on file Social History Narrative Not on file Social Determinants of Health Financial Resource Strain: Not on file Food Insecurity: Not on file Transportation Needs: No Transportation Needs (11/04/2023) PRAPARE - Transportation Lack of Transportation (Medical): No Lack of Transportation (Non-Medical): No Physical Activity: Not on file Stress: Not on file Social Connections: Not on file Intimate Partner Violence: Not At Risk (11/04/2023) Humiliation, Afraid, Rape, and Kick questionnaire Fear of Current or Ex-Partner: No Emotionally Abused: No Physically Abused: No Sexually Abused: No Housing Stability: Low Risk (11/04/2023) Housing Stability Vital Sign Unable to Pay for Housing in the Last Year: No Number of Places Lived in the Last Year: 1 Unstable Housing in the Last Year: No Family History: Family History Problem Relation Name Age of Onset No Known Problems Other No Known Problems Brother No Known Problems Maternal Grandfather No Known Problems Paternal Grandfather No Known Problems Sister No Known Problems Maternal Grandmother No Known Problems Paternal Grandmother REVIEW OF SYSTEMS: 10 point ROS obtained, as per HPI, otherwise NEG Physical Exam: Vitals: BP 120/70 (BP Location: Left arm, Patient Position: Lying) Pulse 90 Temp 36.3 C (97.4 F) (Temporal) Resp 16 Ht 5' 1.81 (1.57 m) Wt 134 lb 0.6 oz (60.8 kg) LMP (LMP Unknown) SpO2 100% BMI 24.67 kg/m BMI Classification: Normal Weight (BMI 18.5-24.9) Pulse Ox: SpO2 Av.9 % Min: 93 % Max: 100 % Supplemental O2: O2 Flow Rate (L/min): 5 L/min Physical Exam Vitals and nursing note reviewed. HENT: Mouth/Throat: Pharynx: Oropharynx is clear. Eyes: Conjunctiva/sclera: Conjunctivae normal. Cardiovascular: Rate and Rhythm: Normal rate. Heart sounds: No murmur heard. Pulmonary: Effort: Pulmonary effort is normal. No respiratory distress. Breath sounds: No wheezing or rales. Abdominal: General: Bowel sounds are normal. Tenderness: There is abdominal tenderness. There is guarding. Comments: Ostomy site intact, no stool in bag, Surgery site covered with dressing, small amount of shadowing, tender to palpation. NG tube draining small amount of bile. Small amount of blood in surgery site drainage tube Musculoskeletal: General: Tenderness and signs of injury present. Right lower leg: No edema. Comments: Right hip dressing with steri strips - incision intact with no drainage. Tender on palpation Skin: General: Skin is warm. Capillary Refill: Capillary refill takes less than 2 seconds. Coloration: Skin is pale. Neurological: General: No focal deficit present. Mental Status: She is alert and oriented to person, place, and time. LABS: Recent Results (from the past 24 hour(s)) ECG 12 lead Collection Time: 11/03/23 7:37 PM Result Value Ref Range Heart Rate 118 bpm QRSD Interval 59 ms QT Interval 320 ms QTC Interval 449 ms P [place] 76 degrees QRS [place] 38 degrees T Wave [place] 57 degrees NM Interval 148 ms CBC auto differential Collection Time: 11/03/23 8:11 PM Result Value Ref Range Auto WBC 16.6 (H) 3.6 - 10.7 10*3/uL RBC 4.23 3.8 - 5.20 10*6/uL Hemoglobin 10.9 (L) 11.7 - 16.0 g/dL Hematocrit 33.3 (L) 35.0 - 47.0 % MCV 78.8 (L) 80.0 - 98.0 fL MCH 25.8 (L) 26.0 - 34.0 pg MCHC 32.8 32.0 - 36.0 % RDW 18.5 (H) 11.5 - 14.5 % Platelets 886 (H) 140 - 440 10*3/uL MPV 7.3 (L) 7.4 - 12.4 fL nRBC 0.0 0.0 - 2.0 /100 WBCs Lipase Collection Time: 11/03/23 8:11 PM Result Value Ref Range LIPASE <10 (L) 23 - 300 U/L Hepatic function panel Collection Time: 11/03/23 8:11 PM Result Value Ref Range BILIRUBIN, TOTAL 0.9 0.2 - 1.3 mg/dL BILIRUBIN, DIRECT 0.0 0.0 - 0.3 mg/dL ALKALINE PHOSPHATASE 100 38 - 126 U/L AST (SGOT) 38 15 - 46 U/L ALT 18 0 - 34 U/L ALBUMIN 3.1 (L) 3.5 - 5.0 g/dL TOTAL PROTEIN 6.8 6.3 - 8.2 g/dL Basic metabolic panel Collection Time: 11/03/23 8:11 PM Result Value Ref Range SODIUM 134 (L) 135 - 145 mmol/L POTASSIUM 4.0 3.5 - 5.1 mmol/L CHLORIDE 99 98 - 107 mmol/L CARBON DIOXIDE 27 22 - 30 mmol/L UREA NITROGEN 21 (H) 7 - 17 mg/dL CREATININE 0.66 0.52 - 1.04 mg/dL GLUCOSE 131 (H) 70 - 100 mg/dL CALCIUM 10.0 8.4 - 10.4 mg/dL ANION GAP 8 3 - 13 mmol/L eGFR >90.0 >60.0 mL/min/1.73m*2 Troponin, with Serial Reflex Collection Time: 11/03/23 8:11 PM Result Value Ref Range TROPONIN I <0.012 <0.034 ng/mL Man Differential Collection Time: 11/03/23 8:11 PM Result Value Ref Range Adjusted WBC 16.6 (H) 3.6 - 10.7 10*3/uL Neutrophils % 92 (H) 40 - 80 % Lymphocytes % 4 (L) 20 - 40 % Monocytes % 4 2 - 10 % Absolute Neutrophil Count 15.3 (H) 1.8 - 7.0 10*3/uL Lymphocytes Absolute 0.7 (L) 1.0 - 4.3 10*3/uL Monocytes Absolute 0.7 0.0 - 0.8 10*3/uL RBC Morphology Normal WBC Morphology Normal Clumped Platelets Present (A) (none) Total Counted 100 Neutrophils Manual 92 Lymphocytes Manual 4 Monocytes Manual 4 Differential Method Automated differential reported after manual slide review Lactic acid with reflex Collection Time: 11/03/23 9:04 PM Result Value Ref Range LACTIC ACID 2.1 (H) 0.7 - 2.0 mmol/L Blood culture Site #1 - Suspected Infection Collection Time: 11/03/23 9:04 PM Specimen: Blood, Venous Result Value Ref Range Blood Culture Blood culture incubation started Type and Screen Collection Time: 11/03/23 9:04 PM Result Value Ref Range ABO Grouping O Antibody Screen NEG Rh Type POS PROTIME/INR & PTT Collection Time: 11/03/23 9:04 PM Result Value Ref Range PROTHROMBIN TIME 13.1 (H) 9.0 - 12.0 s INR 1.2 (H) 0.9 - 1.1 APTT 24.6 20.0 - 30.5 s Confirmatory ABO/Rh Collection Time: 11/03/23 9:04 PM Result Value Ref Range ABO Grouping O Rh Type POS Blood culture Site #2 - Suspected Infection Collection Time: 11/03/23 9:23 PM Specimen: Blood, Venous Result Value Ref Range Blood Culture Blood culture incubation started COVID-19, Flu A/B, and RSV Combo Collection Time: 11/03/23 9:23 PM Specimen: Nasopharynx; Swab Result Value Ref Range SARS-CoV-2 Not Detected Not Detected Respiratory Syncytial Virus Not Detected Not Detected Influenza A Not Detected Not Detected Influenza B Not Detected Not Detected Troponin I Collection Time: 11/03/23 11:28 PM Result Value Ref Range TROPONIN I <0.012 <0.034 ng/mL Troponin I Collection Time: 11/04/23 5:24 AM Result Value Ref Range TROPONIN I <0.012 <0.034 ng/mL Lactic acid with reflex Collection Time: 11/04/23 5:24 AM Result Value Ref Range LACTIC ACID 1.8 0.7 - 2.0 mmol/L CBC Collection Time: 11/04/23 5:24 AM Result Value Ref Range Auto WBC 17.7 (H) 3.6 - 10.7 10*3/uL RBC 3.36 (L) 3.8 - 5.20 10*6/uL Hemoglobin 8.6 (L) 11.7 - 16.0 g/dL Hematocrit 26.9 (L) 35.0 - 47.0 % MCV 80.0 80.0 - 98.0 fL MCH 25.7 (L) 26.0 - 34.0 pg MCHC 32.2 32.0 - 36.0 % RDW 18.2 (H) 11.5 - 14.5 % Platelets 669 (H) 140 - 440 10*3/uL MPV 7.1 (L) 7.4 - 12.4 fL Basic metabolic panel Collection Time: 11/04/23 5:24 AM Result Value Ref Range SODIUM 135 135 - 145 mmol/L POTASSIUM 4.4 3.5 - 5.1 mmol/L CHLORIDE 108 (H) 98 - 107 mmol/L CARBON DIOXIDE 22 22 - 30 mmol/L UREA NITROGEN 21 (H) 7 - 17 mg/dL CREATININE 0.71 0.52 - 1.04 mg/dL GLUCOSE 156 (H) 70 - 100 mg/dL CALCIUM 8.0 (L) 8.4 - 10.4 mg/dL ANION GAP 5 3 - 13 mmol/L eGFR >90.0 >60.0 mL/min/1.73m*2 Urine Culture: No results found for this or any previous visit. IMAGING: See report Assessment Data: (CAT1) Reviewed 3 or more notes from different specialty or health system (each=1). (CAT1) Reviewed 3 or more labs/studies ordered by another provider not previously counted (each=1, panels count as 1). (LOW: 2x CAT1 or independent historian MOD: 3x CAT1 or 1x CAT3 EXTENSIVE: 3x CAT1 and 1x CAT3) Acute, acute on chronic, unstable/uncontrolled chronic problems/diagnoses: Abdomen pain 2/2 ruptured sigmoid diverticulitis s/p mock procedures. Left sided Total hip arthroplasty on 10/16/2023 Anxiety Klonapin 0.5mg PO BID -> converted to 1mg Ativan IV BID - > will put back to oral once patient able to tolerate oral HOLD gabapentin and trazadone due to NPO with no medications - > resume later Asthma -OK to use home trillogy Plan As a result of the above findings & factors, the following mgmt was pursued: - antibiotics per primary, GI ppx, DVT ppx, PRN pain medications, PRN antiemetics per primary service. Labs in the AM. Home medications addressed and resumed as indicated. PT/OT eval and treat. Discharge planning per surgery - Converted Klonapin to IV form - No IV form of trazadone -> if needed - can try benadryl IV, haldol or something this evening - monitor in and out from NG and wound. - am labs, replace lytes prn - PT/OT/CM/SW - delirium precautions: increase activity and limit nighttime disturbances - DVT prophylaxis: encourage ambulation Complexity: Acute illness or injury posing a threat to life or body function (HIGH). Risk: Admission to hospital-level care was considered or occurred (HIGH). Consult to surgery for major surgery, or minor surgery with identified patient or procedural risk factors, was considered or occurred (MOD). Advance Directive: Full Code Anticipated Discharge - Date - TBD - Location - home - Pending the following - clinical improvement Total time spent (which include face to face and non face to face encounters) : 78 minutes Toxic drug monitoring/narrow therapeutic index drug monitoring : # Drug name : Ativan IV # Method of monitoring : mentation - De-escalate when tolerating po Extended Emergency Contact Information Primary Emergency Contact: Deja Cha Mobile Relation: Spouse Ирина Toledo MD [facility] [employer] 11-04-2023 Note Formatting of this n ote might be different from the original. Called report to 2 east- pt meets requirements to go to room at this time. [employer] 11-04-2023 Note Formatting of this n ote might be different from the original. Called report to 2 east- pt meets requirements to go to room at this time. [employer] 11-04-2023 Note Formatting of this n ote might be different from the original. at bedside in PACU. Sent belongings home with him. [employer] 11-04-2023 Note Formatting of this n ote might be different from the original. at bedside in PACU. Sent belongings home with him. [employer] 11-04-2023 Note Formatting of this n ote is different from the original. Patient: Priscila Cha Procedure Summary Date: 11/04/23 Room / Location: [address] Operating Room Anesthesia Start: 136 Anesthesia Stop: 340 Procedure: EXPLORATORY LAPAROTOMY with partial colon resection and colostomy (Abdomen) Diagnosis: Intestinal obstruction, unspecified cause, unspecified whether partial or complete (HCC) (Intestinal obstruction, unspecified cause, unspecified whether partial or complete (HCC) [K56.609]) Surgeons: Adria Lopez MD Responsible Provider: No Anesthesiologist - Jorge Alberto/MD Westley Anesthesia Type: general, regional ASA Status: 4 - Emergent Anesthesia Type: general, regional Vitals Value Taken Time BP 132/63 11/04/23 0344 Temp 97.3f 11/04/23 0344 Pulse 89 11/04/23 0344 Resp 99 11/04/23 0344 SpO2 14 11/04/23 0344 Anesthesia Post Evaluation Patient location during evaluation: PACU Patient participation: complete - patient participated Level of consciousness: awake and alert Pain management: satisfactory to patient Airway patency: patent Dental Injury: no Cardiovascular status: acceptable, blood pressure returned to baseline and hemodynamically stable Respiratory status: acceptable and spontaneous ventilation Hydration status: euvolemic Nausea/Vomiting: controlled No notable events documented. Patient can be discharged once all PACU criteria has been met. [facility] 11-04-2023 Anesthesiology Postoperative evaluation and management note Patient: Priscila Cha Procedure Summary Date: 11/04/23 Room / Location: [address] Operating Room Anesthesia Start: 136 Anesthesia Stop: 340 Procedure: EXPLORATORY LAPAROTOMY with partial colon resection and colostomy (Abdomen) Diagnosis: Intestinal obstruction, unspecified cause, unspecified whether partial or complete (HCC) (Intestinal obstruction, unspecified cause, unspecified whether partial or complete (HCC) [K56.609]) Surgeons: Adria Lopez MD Responsible Provider: No Anesthesiologist - Jorge Alberto/MD Westley Anesthesia Type: general, regional ASA Status: 4 - Emergent Anesthesia Type: general, regional Vitals Value Taken Time BP 132/63 11/04/23 0342 Temp 97.3f 11/04/23 0342 Pulse 89 11/04/23 0342 Resp 14 11/04/23 0342 SpO2 99 11/04/23 0342 Anesthesia Post Evaluation Patient location during evaluation: PACU Patient participation: complete - patient participated Level of consciousness: awake and alert Pain management: satisfactory to patient Multimodal analgesia pain management approach Airway patency: patent Two or more strategies used to mitigate risk of obstructive sleep apnea Cardiovascular status: acceptable and hemodynamically stable Respiratory status: acceptable and nasal cannula Hydration status: acceptable No notable events documented. MIPS #430 PONV Patient received an inhalational anesthetic (4554F) Patient does not exhibit three or more risk factors for PONV (X0430)) MIPS # 424 Perioperative Temperature Management Anesthesia time was 60 minutes or longer (4255F) Anesthesai administered was General (inhalational or TIVA) or Neuraxial block (X0424) At least one body temperature greater than 95.8F/35.5C achieved within the 30 mins immediately prior to or the 15 minutes immediately following anesthesia end time (G9771) MIPS #477 Multimodal Pain Management Not emergent case MIPS #404 Anesthesiology Smoking Abstinence The patient is not a current smoker (e.g. cigarette, cigar, pipe, e-cigarette/vaping/marijuana) If no stop here (XX404) I completed my handoff to the receiving clinician during which we: 1. Identified the patient 2. Identified the responsible provider 3. Reviewed the pertinent medical history 4. Discussed the surgical course 5. Reviewed intra-op anesthesia management and issues during anesthesia 6. Set expectations for post-procedure period 7. Allowed opportunity for questions and acknowledgement of understanding. [employer] Phone: 11-04-2023 Surgical operation note Patient: Priscila Cha Procedure Summary Date: 11/04/23 Room / Location: [address] Operating Room Anesthesia Start: 136 Anesthesia Stop: 340 Procedure: EXPLORATORY LAPAROTOMY with partial colon resection and colostomy (Abdomen) Diagnosis: Intestinal obstruction, unspecified cause, unspecified whether partial or complete (HCC) (Intestinal obstruction, unspecified cause, unspecified whether partial or complete (HCC) [K56.609]) Surgeons: Adria Lopez MD Responsible Provider: No Anesthesiologist - Jorge Alberto/MD Westley Anesthesia Type: general, regional ASA Status: 4 - Emergent Anesthesia Type: general, regional Vitals Value Taken Time BP 132/63 11/04/23341 Temp 97.3f 11/04/23341 Pulse 89 11/04/23341 Resp 14 11/04/23341 SpO2 99 11/04/23341 Anesthesia Post Evaluation Patient location during evaluation: PACU Patient participation: complete - patient participated Level of consciousness: awake and alert Pain management: satisfactory to patient Multimodal analgesia pain management approach Airway patency: patent Two or more strategies used to mitigate risk of obstructive sleep apnea Cardiovascular status: acceptable and hemodynamically stable Respiratory status: acceptable and nasal cannula Hydration status: acceptable No notable events documented. MIPS #430 PONV Patient received an inhalational anesthetic (4554F) Patient does not exhibit three or more risk factors for PONV (X0430)) MIPS # 424 Perioperative Temperature Management Anesthesia time was 60 minutes or longer (4255F) Anesthesai administered was General (inhalational or TIVA) or Neuraxial block (X0424) At least one body temperature greater than 95.8F/35.5C achieved within the 30 mins immediately prior to or the 15 minutes immediately following anesthesia end time (G9771) MIPS #477 Multimodal Pain Management Not emergent case MIPS #404 Anesthesiology Smoking Abstinence The patient is not a current smoker (e.g. cigarette, cigar, pipe, e-cigarette/vaping/marijuana) If no stop here (XX404) I completed my handoff to the receiving clinician during which we: 1. Identified the patient 2. Identified the responsible provider 3. Reviewed the pertinent medical history 4. Discussed the surgical course 5. Reviewed intra-op anesthesia management and issues during anesthesia 6. Set expectations for post-procedure period 7. Allowed opportunity for questions and acknowledgement of understanding. Associated Order(s): Peripheral Block Peripheral Block Time Out: 11/04/2023 1:50 AM Patient location during procedure: Procedural Start time: 11/04/2023 1:50 AM End time: 11/04/2023 2:08 AM Reason for block: at surgeon's request and post-op pain management Staffing Performed: ELECTRONIC ENGRAVER Resident/ELECTRONIC ENGRAVER: Juan Minaya CRNA Preanesthetic Checklist Completed: patient identified, IV checked, site marked, risks and benefits discussed, surgical consent, monitors and equipment checked, pre-op evaluation and timeout performed Region: [place] Primary: TAP (Bupivacaine 0.375%/ Epi 1:200,000/ Dex 0.1mg/mL 40ml divided evenly bilateral) Secondary: Upper rectus (Bupivacaine 0.375%/ Epi 1:200,000/ Dex 0.1mg/mL 20ml divided evenly bilateral) Peripheral Block Patient position: supine Prep: ChloraPrep Patient monitoring: heart rate, site monitor, continuous pulse ox and continuous capnometry O2: ETT/LMA Laterality: bilateral Injection technique: single-shot Guidance: ultrasound guided -image retained in chart, tip of the needle identified by ultraound during injection. Needle Needle: 21G X 110 mm Additional Notes 11/04/2023 1:50 AM Assessment Injection assessment: negative aspiration for heme, no paresthesia on injection and incremental injection Heart rate change: no Slow fractionated injection: yes Required Documentation: Relevant anatomy identified (Nerves, Vessels, Muscles), Negative for blood on aspiration, Local anesthetic injected incrementally with intermittent aspiration every 5 mL, Normal resistance with injection, No EKG changes noted, No symptoms of toxicity, Local anesthetic spread visualized around nerves or plane. and Local anesthetic injected without difficultyMedications [id number]-fpysdphjndk-hksfjqqib ne (TAP) syringe - Injection 60 mL - 11/04/2023 1:50:00 AM Associated Order(s): Airway Airway Date/Time: 11/04/2023 1:45 AM Urgency: scheduled Airway not difficult General Information and Staff Patient location during procedure: Procedural Resident/ELECTRONIC ENGRAVER: Juan Minaya CRNA Performed: ELECTRONIC ENGRAVER Indications and Patient Condition Indications for airway management: anesthesia and airway protection Sedation level: RSI Preoxygenated: yes Patient position: sniffing Mask difficulty assessment: 0 - not attempted Final Airway Details Final airway type: endotracheal airway Successful airway: ETT Successful intubation technique: direct laryngoscopy Endotracheal tube insertion site: oral Blade: Downs Blade size: #3 ETT size (mm): 7.0 Cormack-Lehane Classification: grade IIa - partial view of glottis Placement verified by: chest auscultation Measured from: lips ETT to lips (cm): 21 Number of attempts at approach: 1 Patient: Priscila Cha Procedure Information Anesthesia Start Date/Time: 11/04/23 0137 Procedure: EXPLORATORY LAPAROTOMY with partial colon resection and colostomy (Abdomen) Location: [address] Operating Room Surgeons: Adria Lopez MD Relevant Problems Cardio (+) Primary hypertension Pulmonary (+) COPD exacerbation (HCC) (+) Community acquired pneumonia (+) Pneumonia Past Medical History: Past Medical History: No date: Arthritis 06/20/2022: COPD exacerbation (HCC) 03/04/2019: Pneumonia 06/24/2023: Primary hypertension Past Surgical History: Past Surgical History: 2017: BACK SURGERY; N/A Comment: lower back in middle 1982: MANDIBLE SURGERY; Bilateral Comment: wires on both jaws now No date: TONSILLECTOMY (HISTORICAL) Social History: TOBACCO: reports that she has been smoking cigarettes. She has been smoking an average of 0.3 packs per day. She uses smokeless tobacco. ETOH: reports that she does not currently use alcohol. Social History Substance and Sexual Activity Drug Use Yes Types: Marijuana Comment: Medical Marijuana and gummies Family History: Family History Problem Relation Name Age of Onset No Known Problems Other No Known Problems Brother No Known Problems Maternal Grandfather No Known Problems Paternal Grandfather No Known Problems Sister No Known Problems Maternal Grandmother No Known Problems Paternal Grandmother Screening: Postmenopausal Clinical information reviewed: Allergies Physical Exam Airway Mallampati: III Neck ROM: full Mouth Open: normalendotracheal tube not in place Cardiovascular Dental dentition normal Pulmonary Abdominal Anesthesia Plan patient is NPO appropriate Any family history or previous problems with anesthesia no ASA 4 - emergent regional and general Any family history or previous problems with anesthesia no The patient is not a current smoker. Anesthetic plan and risks discussed with patient. Use of blood products discussed with who consented to blood products. Anesthesia Shahid Considerations Received ketamine and zosyn in ER ANJANA Screening Labs: Lab Results Component Value Date WBC 16.6 (H) 11/03/2023 HGB 10.9 (L) 11/03/2023 HCT 33.3 (L) 11/03/2023 MCV 78.8 (L) 11/03/2023 PLT 886 (H) 11/03/2023 Lab Results Component Value Date NA 134 (L) 11/03/2023 K 4.0 11/03/2023 CL 99 11/03/2023 CO2 27 11/03/2023 BUN 21 (H) 11/03/2023 CREATININE 0.66 11/03/2023 GLUCOSE 131 (H) 11/03/2023 CALCIUM 10.0 11/03/2023 PROT 6.8 11/03/2023 ALKPHOS 100 11/03/2023 AST 38 11/03/2023 ALT 18 11/03/2023 EGFR >90.0 11/03/2023 Pain Score: 7 No echocardiogram results found for the past 14 days 11/03/23 ECG 12-LEAD (Preliminary) This result has not been signed. Information might be incomplete. Impression Sinus tachycardia Probable left atrial enlargement documented in this encounter [facility] 11-04-2023 Procedure anesthe gianni Narrative Procedure Name Responsible Anesthesiologist Anesthesia Start Time Anesthesia Stop Time EXPLORATORY LAPAROTOMY with partial colon resection and colostomy (Abdomen) No Anesthesiologist - Jorge Alberto/MD [place]ley 11/04/23 0137 11/04/23 0341 Events Date Time Event Comment 11/04/2023 0136 In Room 0137 An Start 0137 An Start Data 0142 An Induction The patient was reevaluated immediately before moderate or deep sedation use and before anesthesia induction. 0146 An Intubation 0147 Anesthesia Ready 0206 Proc Start 0332 Proc Fin 0335 An Extubation - Spontaneous ventilation - Patient suctioned - Airway removed without difficulty - Spontaneous ventilation maintained 0337 an stop data 0338 Out of Room 0341 An Stop Meds Name Total lidocaine PF (Xylocaine-MPF) local injec tion 2 % 100 mg propofol (Diprivan) injection 10 mg/mL 2 00 mg rocuronium (ZeMuron) 50 mg/5 mL injectio n 50 mg dexAMETHasone (Decadron) PF injection 10 mg/mL 10 mg esmolol (Brevibloc) 20 mg dexmedetomidine (Precedex) 40 mcg in sod ium chloride 0.9 % 10 mL injection 20 mcg ondansetron (Zofran) 2 mg/mL injection 4 mg phenylephrine syringe 1 mg/ 10 mL syring e (IV Push for HYPOTENSION) 500 mcg ketorolac (Toradol) injection 30 mg 15 m g sugammadex (Bridion) 200 mg/2 mL injecti on 200 mg succinylcholine (Anectine) 200 mg/10 mL injection syringe 120 mg vasopressin (Vasostrict) injection 20 un its 2 Units xuaYRRAKdvqdv-mgtjpnvtssl-myseopdhcup (T AP) syringe 60 mL lactated Ringer's infusion 1,200 mL * Agents Name O2 N2O Air Isoflurane * Blood No blood administrations on file. Lines, Drains, and Airways Type Details Placement Removal Peripheral IV Placement Date: 10/19 03/11; Placement Time: 2146; Catheter Size: 20 G; Orientation: Left; Location: Antecubital; Site Prep: Chlorhexidine 11/03/232146 by Maritza Manjarrez RN Urethral Catheter Placement Date: 10/19 04/10; Placement Time: 158; Inserted by: JANIYA ROCA RN; Type: Straight-tip; Size: 16 Fr.; Balloon Size: 10 mL; Urine Returned: Yes 11/04/23 015 by Janiya Roca RN Wound/Incision 11/04/23; 0226; N; Incision; Abdomen; Midline 11/04/23 022 by Janiya Roca RN Closed/Suction Drain 11/04/23; 0259; Yes ; 1; (LEFT LOWER QUADRANT); LLQ; Bulb; 10 Fr. (10 MM FLAT DRAIN, DRAIN IS NOT SHORTENED); 1 11/04/23 0259 by Janiya Roca RN Colostomy 11/04/23; 0300; LLQ 11/04/23 030 0 by Vera Kelley RN NG/OG Tube Placement Date: 10/19 04/10; Placement Time: 299; Type: Nasogastric (NG 55 @ the nare); Location: Right nostril 11/04/23299 by Vera Kelley RN Peripheral IV Placement Date: 10/19 03/11; Placement Time: 1935; Catheter Size: 20 G; Orientation: Anterior, Right; Location: Forearm; Site Prep: Chlorhexidine; Insertion Attempts: 1; Difficult Venous Access? No; Removal Date: 11/04/23; Removal Time: 169911/03/231935 by Maritza Manjarrez RN 11/04/231699 by Ba Otoole RN ETT Placement Date: 10/19 04/10; Placement Time: 144 (created via procedure documentation); Type: ETT - single; Single Lumen Tube Size: 7 mm; Location: Oral; Placement Verification: Auscultation; Removal Date: 11/04/23; Removal Time: 33411/04/23144 by Juan Minaya CRNA 11/04/23334 by Juan Minaya CRNA [id number] Anesthesiology procedure note* Anesthesia Procedure Notes - Juan Minaya CRNA - 11/04/2023 2:08 AM ESTAssociated Order(s): Peripheral Block Peripheral Block Time Out: 11/04/2023 1:50 AM Patient location during procedure: Procedural Start time: 11/04/2023 1:50 AM End time: 11/04/2023 2:08 AM Reason for block: at surgeon's request and post-op pain management Staffing Performed: ELECTRONIC ENGRAVER Resident/ELECTRONIC ENGRAVER: Juan Minaya CRNA Preanesthetic Checklist Completed: patient identified, IV checked, site marked, risks and benefits discussed, surgical consent, monitors and equipment checked, pre-op evaluation and timeout performed Region: [place] Primary: TAP (Bupivacaine 0.375%/ Epi 1:200,000/ Dex 0.1mg/mL 40ml divided evenly bilateral) Secondary: Upper rectus (Bupivacaine 0.375%/ Epi 1:200,000/ Dex 0.1mg/mL 20ml divided evenly bilateral) Peripheral Block Patient position: supine Prep: ChloraPrep Patient monitoring: heart rate, site monitor, continuous pulse ox and continuous capnometry O2: ETT/LMA Laterality: bilateral Injection technique: single-shot Guidance: ultrasound guided -image retained in chart, tip of the needle identified by ultraound during injection. Needle Needle: 21G X 110 mm Additional Notes 11/04/2023 1:50 AM Assessment Injection assessment: negative aspiration for heme, no paresthesia on injection and incremental injection Heart rate change: no Slow fractionated injection: yes Required Documentation: Relevant anatomy identified (Nerves, Vessels, Muscles), Negative for blood on aspiration, Local anesthetic injected incrementally with intermittent aspiration every 5 mL, Normal resistance with injection, No EKG changes noted, No symptoms of toxicity, Local anesthetic spreadvisualized around nerves or plane. and Local anesthetic injected without difficultyMedications jhpIAPMUkcmdz-ebhxuubntbu-isvbbpbdtag (TAP) syringe - Injection 60 mL - 11/04/2023 1:50:00 AM [id number] Anesthesiology procedure note* Anesthesia Procedure Notes - Juan Minaya CRNA - 11/04/2023 2:02 AM ESTAssociated Order(s): Airway Airway Date/Time: 11/04/2023 1:45 AM Urgency: scheduled Airway not difficult General Information and Staff Patient location during procedure: Procedural Resident/ELECTRONIC ENGRAVER: Juan Minaya CRNA Performed: ELECTRONIC ENGRAVER Indications and Patient Condition Indications for airway management: anesthesia and airway protection Sedation level: RSI Preoxygenated: yes Patient position: sniffing Mask difficulty assessment: 0 - not attempted Final Airway Details Final airway type: endotracheal airway Successful airway: ETT Successful intubation technique: direct laryngoscopy Endotracheal tube insertion site: oral Blade: Downs Blade size: #3 ETT size (mm): 7.0 Cormack-Lehane Classification: grade IIa - partial view of glottis Placement verified by: chest auscultation Measured from: lips ETT to lips (cm): 21 Number of attempts at approach: 1 [id number] [facility] Anesthesiology Preoperative evaluation and management note* Anesthesia Preprocedure Evaluation - Juan Minaya CRNA - 11/04/2023 2:00 AM EST Patient: Priscila Cha Procedure Information Anesthesia Start Date/Time: 11/04/23 0137 Procedure: EXPLORATORY LAPAROTOMY with partial colon resection and colostomy (Abdomen) Location: [address] Operating Room Surgeons: Adria Lopez MD Relevant Problems Cardio (+) Primary hypertension Pulmonary (+) COPD exacerbation (HCC) (+) Community acquired pneumonia (+) Pneumonia Past Medical History: Past Medical History: No date: Arthritis 06/20/2022: COPD exacerbation (HCC) 03/04/2019: Pneumonia 06/24/2023: Primary hypertension Past Surgical History: Past Surgical History: 2017: BACK SURGERY; N/A Comment: lower back in middle 1982: MANDIBLE SURGERY; Bilateral Comment: wires on both jaws now No date: TONSILLECTOMY (HISTORICAL) Social History: TOBACCO: reports that she has been smoking cigarettes. She has been smoking an average of 0.3 packsper day. She uses smokeless tobacco. ETOH: reports that she does not currently use alcohol. Social History Substance and Sexual Activity Drug Use Yes Types: Marijuana Comment: Medical Marijuana and gummies Family History: Family History Problem Relation Name Age of Onset No Known Problems Other No Known Problems Brother No Known Problems Maternal Grandfather No Known Problems Paternal Grandfather No Known Problems Sister No Known Problems Maternal Grandmother No Known Problems Paternal Grandmother Screening: Postmenopausal Clinical information reviewed: Allergies Physical Exam Airway Mallampati: III Neck ROM: full Mouth Open: normalendotracheal tube not in place Cardiovascular Dental dentition normal Pulmonary Abdominal Anesthesia Plan patient is NPO appropriate Any family history or previous problems with anesthesia no ASA 4 - emergent regional and general Any family history or previous problems with anesthesia no The patient is not a current smoker. Anesthetic plan and risks discussed with patient. Use of blood products discussed with who consented to blood products. Anesthesia Shahid Considerations Received ketamine and zosyn in ER ANJANA Screening Labs: Lab Results Component Value Date WBC 16.6 (H) 11/03/2023 HGB 10.9 (L) 11/03/2023 HCT 33.3 (L) 11/03/2023 MCV 78.8 (L) 11/03/2023 PLT 886 (H) 11/03/2023 Lab Results Component Value Date NA 134 (L) 11/03/2023 K 4.0 11/03/2023 CL 99 11/03/2023 CO2 27 11/03/2023 BUN 21 (H) 11/03/2023 CREATININE 0.66 11/03/2023 GLUCOSE 131 (H) 11/03/2023 CALCIUM 10.0 11/03/2023 PROT 6.8 11/03/2023 ALKPHOS 100 11/03/2023 AST 38 11/03/2023 ALT 18 11/03/2023 EGFR >90.0 11/03/2023 Pain Score: 7 No echocardiogram results found for the past 14 days 11/03/23 ECG 12-LEAD (Preliminary) This result has not been signed. Information might be incomplete. Impression Sinus tachycardia Probable left atrial enlargement [facility] [id number] History and physical note* Adria Lopez MD - 11/04/2023 1:38 AM EST Department of General Surgery History and Physical PATIENT NAME: Priscila Cha DATE OF : 1955 ADMISSION DATE: 11/03/2023 7:19 PM TODAY'S DATE: 11/04/2023 HISTORY OF PRESENT ILLNESS: The patient is a 67 y.o. female who presents with an abdominal pain over the past several days. Also some fevers and chills with nausea. Pain is diffuse and very tender on palpation. She had been hospitalized June last year with fairly lengthy recovery from diverticulitis sigmoid diverticulitis that was treated with bowel rest and IV antibiotics and IV fluids. However she did recover appropriately and was seen in September symptom-free at that time and underwent right hip replacement. Was doing well and then noted the abdominal pain beginning several days ago. Presented to the emergency department earlier noted to be peritonitic on exam and CT scan shows significant diffuse sigmoid inflammation with perforation and adjacent abscess and pockets of free air. Leukocytosis 16,000 and a mildly elevated lactic acid 2.1. Thoroughly reviewed the patient's medical history, family history, social history and review of systems with the patient today in the office. Please see medical record for pertinent positives. Past Medical History: Past Medical History: Diagnosis Date Arthritis COPD exacerbation (HCC) 06/20/2022 Pneumonia 03/04/2019 Primary hypertension 06/24/2023 Past Surgical History: Past Surgical History: Procedure Laterality Date BACK SURGERY N/A 2017 lower back in middle MANDIBLE SURGERY Bilateral 1983 wires on both jaws now TONSILLECTOMY (HISTORICAL) Current Medications: Scheduled Meds: Continuous Infusions: PRN Meds:. Prior to Admission medications Medication Sig Start Date End Date Taking? Authorizing Provider albuterol 108 (90 Base) MCG/ACT inhaler Inhale 2 puffs every 4 hours as needed for shortness of breath or wheezing. 11/24/22 Historical Provider, amLODIPine (Norvasc) 5 MG tablet Take 1 tablet by mouth daily. 06/23/22 Historical Provider, clonazePAM (KlonoPIN) 0.5 MG tablet Take 0.5 mg by mouth 2 times daily. Historical Provider, Ouafkfaggdc-Kzmzoxkez-Uhjsqp (Trelegy Ellipta) 100-62.5-25 MCG/ACT aerosol powder Inhale 1 puff daily. 01/06/23 Historical Provider, gabapentin (Neurontin) 300 MG capsule Take 300 mg by mouth 2 times daily as needed. Historical Provider, HYDROcodone-acetaminophen ([place]) 5-325 MG tablet 09/26/23 Historical Provider, senna-docusate sodium (Senokot-S) 8.6-50 MG tablet Take 2 tablets by mouth daily. 07/11/23 07/10/24jeff Naik MD traZODone (Desyrel) 50 MG tablet Take 50 mg by mouth every evening. 01/27/23 Historical Provider, Allergies: Codeine, Levofloxacin, and Sulfa antibiotics Social History: Social History Socioeconomic History Marital status: Spouse name: Not on file Number of children: Not on file Years of education: Not on file Highest education level: Not on file Occupational History Not on file Tobacco Use Smoking status: Every Day Packs/day: .25 Types: Cigarettes Smokeless tobacco: Current Tobacco comments: Quit smoking: trying to quit Substance and Sexual Activity Alcohol use: Not Currently Drug use: Yes Types: Marijuana Comment: Medical Marijuana and gummies Sexual activity: Defer Other Topics Concern Not on file Social History Narrative Not on file Social Determinants of Health Financial Resource Strain: Not on file Food Insecurity: Not on file Transportation Needs: Not on file Physical Activity: Not on file Stress: Not on file Social Connections: Not on file Intimate Partner Violence: Not on file Housing Stability: Not on file Family History: Family History Problem Relation Name Age of Onset No Known Problems Other No Known Problems Brother No Known Problems Maternal Grandfather No Known Problems Paternal Grandfather No Known Problems Sister No Known Problems Maternal Grandmother No Known Problems Paternal Grandmother REVIEW OF SYSTEMS: CONSTITUTIONAL: Negative for fatigue, and unexpected weight change HENT: Negative for hearing loss, nosebleeds, sneezing, sore throat, trouble swallowing and voice change. RESPIRATORY: Negative for cough, SOB, and wheezing CARDIOVASCULAR: Negative for chest pains and palpatations GASTROINTESTINAL: nausea GENITOURINARY: negative for dysuria, urgency, frequency, and difficulty urinating. SKIN: negative for rash ALLERGIC/IMMUNOLOGIC: Negative for immunocompromised state HEMATOLOGIC/LYMPHATIC: Negative for adenopathy. Does not bruise/bleed easily. NEUROLOGICAL: Negative for seizures and syncope * All other ROS reviewed see HPI for pertinent positives and negatives. PHYSICAL EXAM: VITALS: BP (!) 146/79 (BP Location: Left arm) Pulse 105 Temp 37 C (98.6 F) (Oral) Resp 18 Ht 5' 4 (1.626 m) Wt 134 lb (60.8 kg) LMP (LMP Unknown) SpO2 94% BMI 23.00 kg/m 24HR INTAKE/OUTPUT: No intake/output data recorded. No intake/output data recorded. CONSTITUTIONAL: Oriented to person, place, and time. Appears well nourished. No distress EYES: PERRL, conjunctiva normal ENT: Normocepalic,atraumatic, without obvious abnormality NECK: supple, symmetrical, trachea midline, no thyromegaly LUNGS: Resp effort easy and unlabored, breath sounds normal CARDIOVASCULAR: NO JVD, RRR, No murmur ABDOMEN: Diffuse tenderness with peritoneal signs positive rebound MUSCULOSKELETAL: Normal range of motion, no edema NEUROLOGIC: Mental Status Exam: Level of Alertness: Alert and oriented to person place and time, sensation globally intact PSYCHIATRIC: Speech is normal, Oriented to Person, Place, Time, mood appears anxious SKIN: Warm, dry, and intact DATA: CBC: Recent Labs 11/03/232010 WBC 16.6* HGB 10.9* HCT 33.3* PLT 886* BMP: Recent Labs 11/03/232010 NA 134* K 4.0 CL 99 CO2 27 BUN 21* CREATININE 0.66 GLUCOSE 131* Hepatic: Recent Labs 11/03/232010 AST 38 ALT 18 BILITOT 0.9 ALKPHOS 100 Mag: No results for input(s): MG in the last 72 hours. Phos: No results for input(s): PHOS in the last 72 hours. INR: Recent Labs 11/03/23 2104 INR 1.2* IMPRESSION/RECOMMENDATIONS: Ruptured sigmoid diverticulitis Free air and peritoneal exam therefore emergently to OR for exploratory laparotomy and sigmoid resection with end colostomy Patient and her spouse counseled on risks, benefits, and alternatives of treatment plan at length. Patient states an understanding and willingness to proceed with plan. This case represents high level care including chart review, care coordination and face to face encounter was spent discussing/counseling the patient regarding the care plan for this patient. The patient was seen and examined independently and relevant data reviewed by myself. A full chart review was performed. Adria Lopez MD [employer] [id number] [facility]02-17-2024 History and physical note* Adria Lopez MD - 11/04/2023 1:38 AM EST Department of General Surgery History and Physical PATIENT NAME: Priscila Cha DATE OF : 1955 ADMISSION DATE: 11/03/2023 7:19 PM TODAY'S DATE: 11/04/2023 HISTORY OF PRESENT ILLNESS: The patient is a 67 y.o. female who presents with an abdominal pain over the past several days. Also some fevers and chills with nausea. Pain is diffuse and very tender on palpation. She had been hospitalized June last year with fairly lengthy recovery from diverticulitis sigmoid diverticulitis that was treated with bowel rest and IV antibiotics and IV fluids. However she did recover appropriately and was seen in September symptom-free at that time and underwent right hip replacement. Was doing well and then noted the abdominal pain beginning several days ago. Presented to the emergency department earlier noted to be peritonitic on exam and CT scan shows significant diffuse sigmoid inflammation with perforation and adjacent abscess and pockets of free air. Leukocytosis 16,000 and a mildly elevated lactic acid 2.1. Thoroughly reviewed the patient's medical history, family history, social history and review of systems with the patient today in the office. Please see medical record for pertinent positives. Past Medical History: Past Medical History: Diagnosis Date Arthritis COPD exacerbation (HCC) 06/20/2022 Pneumonia 03/04/2019 Primary hypertension 06/24/2023 Past Surgical History: Past Surgical History: Procedure Laterality Date BACK SURGERY N/A 2017 lower back in middle MANDIBLE SURGERY Bilateral 1983 wires on both jaws now TONSILLECTOMY (HISTORICAL) Current Medications: Scheduled Meds: Continuous Infusions: PRN Meds:. Prior to Admission medications Medication Sig Start Date End Date Taking? Authorizing Provider albuterol 108 (90 Base) MCG/ACT inhaler Inhale 2 puffs every 4 hours as needed for shortness of breath or wheezing. 11/24/22 Historical Provider, amLODIPine (Norvasc) 5 MG tablet Take 1 tablet by mouth daily. 06/23/22 Historical Provider, clonazePAM (KlonoPIN) 0.5 MG tablet Take 0.5 mg by mouth 2 times daily. Historical Provider, Sryvlmhukiz-Gysrtqpdb-Cvjcvq (Trelegy Ellipta) 100-62.5-25 MCG/ACT aerosol powder Inhale 1 puff daily. 01/06/23 Historical Provider, gabapentin (Neurontin) 300 MG capsule Take 300 mg by mouth 2 times daily as needed. Historical Provider, HYDROcodone-acetaminophen ([place]) 5-325 MG tablet 09/26/23 Historical Provider, senna-docusate sodium (Senokot-S) 8.6-50 MG tablet Take 2 tablets by mouth daily. 07/11/23 07/10/24jeff Naik MD traZODone (Desyrel) 50 MG tablet Take 50 mg by mouth every evening. 01/27/23 Historical Provider, Allergies: Codeine, Levofloxacin, and Sulfa antibiotics Social History: Social History Socioeconomic History Marital status: Spouse name: Not on file Number of children: Not on file Years of education: Not on file Highest education level: Not on file Occupational History Not on file Tobacco Use Smoking status: Every Day Packs/day: .25 Types: Cigarettes Smokeless tobacco: Current Tobacco comments: Quit smoking: trying to quit Substance and Sexual Activity Alcohol use: Not Currently Drug use: Yes Types: Marijuana Comment: Medical Marijuana and gummies Sexual activity: Defer Other Topics Concern Not on file Social History Narrative Not on file Social Determinants of Health Financial Resource Strain: Not on file Food Insecurity: Not on file Transportation Needs: Not on file Physical Activity: Not on file Stress: Not on file Social Connections: Not on file Intimate Partner Violence: Not on file Housing Stability: Not on file Family History: Family History Problem Relation Name Age of Onset No Known Problems Other No Known Problems Brother No Known Problems Maternal Grandfather No Known Problems Paternal Grandfather No Known Problems Sister No Known Problems Maternal Grandmother No Known Problems Paternal Grandmother REVIEW OF SYSTEMS: CONSTITUTIONAL: Negative for fatigue, and unexpected weight change HENT: Negative for hearing loss, nosebleeds, sneezing, sore throat, trouble swallowing and voice change. RESPIRATORY: Negative for cough, SOB, and wheezing CARDIOVASCULAR: Negative for chest pains and palpatations GASTROINTESTINAL: nausea GENITOURINARY: negative for dysuria, urgency, frequency, and difficulty urinating. SKIN: negative for rash ALLERGIC/IMMUNOLOGIC: Negative for immunocompromised state HEMATOLOGIC/LYMPHATIC: Negative for adenopathy. Does not bruise/bleed easily. NEUROLOGICAL: Negative for seizures and syncope * All other ROS reviewed see HPI for pertinent positives and negatives. PHYSICAL EXAM: VITALS: BP (!) 146/79 (BP Location: Left arm) Pulse 105 Temp 37 C (98.6 F) (Oral) Resp 18 Ht 5' 4 (1.626 m) Wt 134 lb (60.8 kg) LMP (LMP Unknown) SpO2 94% BMI 23.00 kg/m 24HR INTAKE/OUTPUT: No intake/output data recorded. No intake/output data recorded. CONSTITUTIONAL: Oriented to person, place, and time. Appears well nourished. No distress EYES: PERRL, conjunctiva normal ENT: Normocepalic,atraumatic, without obvious abnormality NECK: supple, symmetrical, trachea midline, no thyromegaly LUNGS: Resp effort easy and unlabored, breath sounds normal CARDIOVASCULAR: NO JVD, RRR, No murmur ABDOMEN: Diffuse tenderness with peritoneal signs positive rebound MUSCULOSKELETAL: Normal range of motion, no edema NEUROLOGIC: Mental Status Exam: Level of Alertness: Alert and oriented to person place and time, sensation globally intact PSYCHIATRIC: Speech is normal, Oriented to Person, Place, Time, mood appears anxious SKIN: Warm, dry, and intact DATA: CBC: Recent Labs 11/03/232010 WBC 16.6* HGB 10.9* HCT 33.3* PLT 886* BMP: Recent Labs 11/03/232010 NA 134* K 4.0 CL 99 CO2 27 BUN 21* CREATININE 0.66 GLUCOSE 131* Hepatic: Recent Labs 11/03/232010 AST 38 ALT 18 BILITOT 0.9 ALKPHOS 100 Mag: No results for input(s): MG in the last 72 hours. Phos: No results for input(s): PHOS in the last 72 hours. INR: Recent Labs 11/03/23 2104 INR 1.2* IMPRESSION/RECOMMENDATIONS: Ruptured sigmoid diverticulitis Free air and peritoneal exam therefore emergently to OR for exploratory laparotomy and sigmoid resection with end colostomy Patient and her spouse counseled on risks, benefits, and alternatives of treatment plan at length. Patient states an understanding and willingness to proceed with plan. This case represents high level care including chart review, care coordination and face to face encounter was spent discussing/counseling the patient regarding the care plan for this patient. The patient was seen and examined independently and relevant data reviewed by myself. A full chart review was performed. Adria Lopez MD documented in this [facility]02-17-2024 Note* Op Note - Adria Lopez MD - 11/04/2023 1:36 AM EST OPERATIVE NOTE DATE OF PROCEDURE: 11/04/2023 SURGEON: ADRIA LOPEZ M.D. SPIN TABLE OPERATOR: see chart PREOPERATIVE DIAGNOSIS: Perforated sigmoid diverticulitis with feculent peritonitis POSTOPERATIVE DIAGNOSIS: SAME OPERATION: Partial left colectomy with end ostomy, (Mock's procedure) ANESTHESIA: General endotracheal anesthesia ESTIMATED BLOOD LOSS: less than 50 COMPLICATIONS: None SPECIMENS: Sigmoid colon distal and marked with suture and rectal stump Wound Classification Surgical Wound Classification [] Class I/Clean [] Class II/Clean-Contaminated [] Class III/Contaminated [x] ClassIV/Dirty-Infected HISTORY: The patient is a 67 y.o. year old female with history of above preop diagnosis. Presented to the emergency department earlier this evening with complaints of worsening abdominal pain over the past 2 to 3 days. She does have a history of sigmoid diverticulitis starting back to June of this past year. He also recently underwent hip arthroplasty several weeks ago. Workup today revealed very sick patient with peritoneal abdomen and labs and imaging consistent with perforated sigmoid diverticulitis with free air fluid and multiple abscess pockets. Given these findings patient taken urgently to the operating room for exploratory laparotomy sigmoid resection and end colostomy as described below. Prior to surgery I explained the risk, benefits, expected outcome, and alternatives to the procedure. Patient understood and was in agreement to proceed with operation. DESCRIPTION: Patient taken to the operating room placed supine on the operating table. After adequate anesthesiawas achieved and timeout protocol was completed the abdomen was prepped and draped in standard sterile surgical fashion. A vertical midline incision was made just above the umbilicus and carried downto just above the pubis. This was deep into the subcutaneous tissues and hemostasis achieved with electrocautery. The linea alba was identified and incised and the peritoneal cavity entered. Adhesions were lysed sharply under direct visualization with Metzenbaum scissors and blunt dissection as well as electrocautery. The abdomen was explored. Generalized peritonitis feculent and purulent material abscess left lower quadrant space mass involving sigmoid colon was found indicating pre- existing deep space infection. The small bowel was retracted to the right using moist towel and self-retainingretractor. Using electrocautery and blunt dissection the colon was freed from its peritoneal attachments along the line of Toldt proximally from the mid descending colon and distally to the pelvic inl et. Points of transection were selected proximally at the distal descending colon and distally nearrectosigmoid junction. The bowel was divided at the proximal location with linear cutting stapler. The mesentery was then divided with Enseal device. The inferior mesenteric artery was also suture ligated as well. The distal portion of bowel was then divided using linear cutting stapler and the specimen was removed and distal end tagged and sent to pathology. Mock's pouch staple line was then tagged at the lateral edges with a Prolene suture. The abdominal cavity was then copiously irrigatedand hemostasis was observed. 10 flat JAIMIE drain was then placed in the pelvis near the rectal stump staple line and brought out through the left lower quadrant. The proximal colon reached easily to theproposed colostomy site without tension. A disc of skin was removed from the colostomy site in the left lower quadrant. The incision was deepened through all layers of abdominal wall and dilated to admit 2 fingers. The colon was then passed out through the ostomy site without torsion or tension. The fascia was then reapproximated and closed with running looped PDS suture. And closed with divine.The ostomy was matured with multiple interrupted 2-0 Vicryl suture. Ostomy bag then applied. Sterile dressing applied to the midline incision. Sponge instrument count correct at the end of the case. P aman tolerated procedure well and was transferred to PACU in stable condition. [id number]* Op Note - Adria Lopez MD - 11/04/2023 1:36 AM EST OPERATIVE NOTE DATE OF PROCEDURE: 11/04/2023 SURGEON: ADRIA LOPEZ M.D. SPIN TABLE OPERATOR: see chart PREOPERATIVE DIAGNOSIS: Perforated sigmoid diverticulitis with feculent peritonitis POSTOPERATIVE DIAGNOSIS: SAME OPERATION: Partial left colectomy with end ostomy, (Mock's procedure) ANESTHESIA: General endotracheal anesthesia ESTIMATED BLOOD LOSS: less than 50 COMPLICATIONS: None SPECIMENS: Sigmoid colon distal and marked with suture and rectal stump Wound Classification Surgical Wound Classification [] Class I/Clean [] Class II/Clean-Contaminated [] Class III/Contaminated [x] ClassIV/Dirty-Infected HISTORY: The patient is a 67 y.o. year old female with history of above preop diagnosis. Presented to the emergency department earlier this evening with complaints of worsening abdominal pain over the past 2 to 3 days. She does have a history of sigmoid diverticulitis starting back to June of this past year. He also recently underwent hip arthroplasty several weeks ago. Workup today revealed very sick patient with peritoneal abdomen and labs and imaging consistent with perforated sigmoid diverticulitis with free air fluid and multiple abscess pockets. Given these findings patient taken urgently to the operating room for exploratory laparotomy sigmoid resection and end colostomy as described below. Prior to surgery I explained the risk, benefits, expected outcome, and alternatives to the procedure. Patient understood and was in agreement to proceed with operation. DESCRIPTION: Patient taken to the operating room placed supine on the operating table. After adequate anesthesiawas achieved and timeout protocol was completed the abdomen was prepped and draped in standard sterile surgical fashion. A vertical midline incision was made just above the umbilicus and carried downto just above the pubis. This was deep into the subcutaneous tissues and hemostasis achieved with electrocautery. The linea alba was identified and incised and the peritoneal cavity entered. Adhesions were lysed sharply under direct visualization with Metzenbaum scissors and blunt dissection as well as electrocautery. The abdomen was explored. Generalized peritonitis feculent and purulent material abscess left lower quadrant space mass involving sigmoid colon was found indicating pre- existing deep space infection. The small bowel was retracted to the right using moist towel and self-retainingretractor. Using electrocautery and blunt dissection the colon was freed from its peritoneal attachments along the line of Toldt proximally from the mid descending colon and distally to the pelvic inl et. Points of transection were selected proximally at the distal descending colon and distally nearrectosigmoid junction. The bowel was divided at the proximal location with linear cutting stapler. The mesentery was then divided with Enseal device. The inferior mesenteric artery was also suture ligated as well. The distal portion of bowel was then divided using linear cutting stapler and the specimen was removed and distal end tagged and sent to pathology. Mock's pouch staple line was then tagged at the lateral edges with a Prolene suture. The abdominal cavity was then copiously irrigatedand hemostasis was observed. 10 flat JAIMIE drain was then placed in the pelvis near the rectal stump staple line and brought out through the left lower quadrant. The proximal colon reached easily to theproposed colostomy site without tension. A disc of skin was removed from the colostomy site in the left lower quadrant. The incision was deepened through all layers of abdominal wall and dilated to admit 2 fingers. The colon was then passed out through the ostomy site without torsion or tension. The fascia was then reapproximated and closed with running looped PDS suture. And closed with divine.The ostomy was matured with multiple interrupted 2-0 Vicryl suture. Ostomy bag then applied. Sterile dressing applied to the midline incision. Sponge instrument count correct at the end of the case. John newton tolerated procedure well and was transferred to PACU in stable condition. [facility]02-17-2024 Emergency department Note* Maritza Manjarrez RN - 11/04/2023 1:29 AM EST Surgery to bedside with patient. States that patient is going to OR now. Called and notified patients . Pt taken to OR with all of her belongings Maritza Manjarrez RN 11/04/23 013 [facility]02-17-2024 Emergency department Note* Maritza Manjarrez RN - 11/04/2023 1:29 AM EST Surgery to bedside with patient. States that patient is going to OR now. Called and notified patients . Pt taken to OR with all of her belongings Maritza Manjarrez RN 11/04/23 0130 * Maritza Manjarrez RN - 11/04/2023 12:38 AM EST Called and updated patients at this time on plan of care Maritza Manjarrez RN 11/04/23 0038 * Maritza Manjarrez RN - 11/04/2023 12:06 AM EST Pt assisted onto bedpan, states that she has been unable to void with external catheter on. Maritza Manjarrez RN 11/04/23 0007 * Maritza Manjarrez RN - 11/03/2023 11:42 PM EST Pts pulse ox 90% on RA. Pt denies distress, denies CP or SOB. 2L NC applied and pts pulse ox to 96%. Dr Berumen notified. Maritza Manjarrez RN 11/03/23 2342 * Maritza Manjarrez RN - 11/03/2023 11:34 PM EST Offered to call patients at this time to give updates, pt declines, states that she wants to wait until she gets updated from MD about general surgeries recommendations. Maritza Manjarrez RN 11/03/23 2335 * Trena Bar, EMT - 11/03/2023 10:55 PM EST Pt placed on puriwick for comfort and to provide urine sample. Pt resting dry and comfortable. Trena Bar EMT 11/03/23 1274 * Maritza Manjarrez RN - 11/03/2023 8:[address] Berumen notified of patients + sepsis screening at this time Maritza Manjarrez RN 11/03/232046 * WILNER Wallace - 11/03/2023 7:38 PM EST Guided Deja back WILNER Wallace 11/03/231937 * WILNER Wallace - 11/03/2023 7:20 PM EST Introduced myself as pt liaison and explained role provide support to Deja in [employer] , pt arrived via EMS. WILNER Wallace 11/03/231920 * Michael Berumen DO - 11/03/2023 7:19 PM EST EMERGENCY DEPARTMENT ENCOUNTER Pt Name: Priscila Cha Birthdate 1955 Date of evaluation: 11/03/2023 ED Provider: Michael Berumen DO CHIEF COMPLAINT Chief Complaint Patient presents with Abdominal Pain Pt c/o upper abd pain that began today. States that she had right hip surgery two weeks ago, has been getting around with a walker at home. C/o diarrhea & constipation. +nausea. Pt has been taking pain medication since surgery, states that she stopped taking her stool softener. HISTORY OF PRESENT ILLNESS (Location/Symptom, Timing/Onset, Context/Setting, Quality, Duration, Modifying Factors, Severity) Note limiting factors. I wore appropriate PPE for the entirety of this encounter. HPI Priscila Cha is a 67 y.o. past medical history of hypertension, COPD, arthritis, pneumonia, recent total hip arthroplasty 2 weeks presents to the emergency room due to concern for bilateral upper quadrant pain. Patient states the pain in the upper quadrant is progressively getting worse. She stated started 2 days prior. She states that today is the worst pain. She states that she has decreased appetite secondary to pain. She is also complaining of nausea and vomiting. She denies noticing any blood in her vomit. She states she has had a bowel movement that was small this morning. She states that she has had a couple black stools recently. She denies use of Pepto-Bismol or iron supplementation. She states that she has been taking magnesia for pain in her abdomen in addition to [place] for pain control forearm her hip surgery. Patient denies any fevers or chills. She denies any shortness of breath or chest pain. She denies any tobacco alcohol or illicit drug use. Nursing Notes were reviewed. Limitations to history: None Outside historians: None REVIEW OF SYSTEMS Review of Systems Pertinent positives and negatives as per HPI. PAST MEDICAL HISTORY Past Medical History: Diagnosis Date Arthritis COPD exacerbation (HCC) 06/20/2022 Pneumonia 03/04/2019 Primary hypertension 06/24/2023 SURGICAL HISTORY Past Surgical History: Procedure Laterality Date BACK SURGERY N/A 2017 lower back in middle MANDIBLE SURGERY Bilateral 1983 wires on both jaws now TONSILLECTOMY (HISTORICAL) CURRENT MEDICATIONS Previous Medications ALBUTEROL 108 (90 BASE) MCG/ACT INHALER Inhale 2 puffs every 4 hours as needed for shortness of breath or wheezing. AMLODIPINE (NORVASC) 5 MG TABLET Take 1 tablet by mouth daily. CLONAZEPAM (KLONOPIN) 0.5 MG TABLET Take 0.5 mg by mouth 2 times daily. ZIWNCRHGTCB-BUFSHYYGB-WKPFKZ (TRELEGY ELLIPTA) 100-62.5-25 MCG/ACT AEROSOL POWDER Inhale 1 puff daily. GABAPENTIN (NEURONTIN) 300 MG CAPSULE Take 300 mg by mouth 2 times daily as needed. HYDROCODONE-ACETAMINOPHEN (NORCO) 5-325 MG TABLET SENNA-DOCUSATE SODIUM (SENOKOT-S) 8.6-50 MG TABLET Take 2 tablets by mouth daily. TRAZODONE (DESYREL) 50 MG TABLET Take 50 mg by mouth every evening. ALLERGIES Codeine, Levofloxacin, and Sulfa antibiotics FAMILY HISTORY Family History Problem Relation Name Age of Onset No Known Problems Other No Known Problems Brother No Known Problems Maternal Grandfather No Known Problems Paternal Grandfather No Known Problems Sister No Known Problems Maternal Grandmother No Known Problems Paternal Grandmother SOCIAL HISTORY Social History Socioeconomic History Marital status: Tobacco Use Smoking status: Every Day Packs/day: .25 Types: Cigarettes Smokeless tobacco: Current Tobacco comments: Quit smoking: trying to quit Substance and Sexual Activity Alcohol use: Not Currently Drug use: Yes Types: Marijuana Comment: Medical Marijuana and gummies Sexual activity: Defer SCREENINGS PHYSICAL EXAM ED Triage Vitals [11/03/231926] Temp Heart Rate Resp BP 37 C (98.6 F) (!) 118 14 128/77 SpO2 Temp Source Heart Rate Source Patient Position 93 % Oral Monitor -- BP Location FiO2 (%) Left arm -- Physical Exam Constitutional: General: She is in acute distress. Appearance: She is normal weight. She is ill-appearing. She is not toxic- appearing or diaphoretic. HENT: Right Ear: External ear normal. Left Ear: External ear normal. Nose: Nose normal. Mouth/Throat: Mouth: Mucous membranes are moist. Pharynx: Oropharynx is clear. Eyes: General: No scleral icterus. Right eye: No discharge. Left eye: No discharge. Conjunctiva/sclera: Conjunctivae normal. Cardiovascular: Rate and Rhythm: Regular rhythm. Tachycardia present. Pulses: Radial pulses are 2+ on the right side and 2+ on the left side. Dorsalis pedis pulses are 2+ on the right side and 2+ on the left side. Heart sounds: Normal heart sounds. No murmur heard. No friction rub. No gallop. Pulmonary: Effort: Pulmonary effort is normal. No respiratory distress. Breath sounds: Normal breath sounds. No stridor. No wheezing, rhonchi or rales. Chest: Chest wall: No tenderness. Abdominal: General: Bowel sounds are normal. There is distension. Palpations: Abdomen is soft. Tenderness: There is abdominal tenderness in the right upper quadrant, left upper quadrant and leftlower quadrant. There is left CVA tenderness and guarding. Musculoskeletal: Right lower leg: No edema. Left lower leg: No edema. Skin: General: Skin is warm. Capillary Refill: Capillary refill takes less than 2 seconds. Neurological: Mental Status: She is alert and oriented to person, place, and time. DIAGNOSTIC RESULTS Procedures/EKG: Sinus tachycardia [address] segment changes no T wave inversions. Normal axis and intervals. RADIOLOGY (Per Emergency Physician): Interpretation per the Radiologist below, if available at the time of this note: CT abdomen pelvis w contrast Final Result Findings most consistent with complicated diverticulitis of the sigmoid colon with small to moderate amount of free air in the abdomen and pelvis and developing abscess in the mid pelvis as described. Surgical consultation is recommended. Colonoscopy after treatment is recommended to exclude underlying mass. Findings consistent with developing small bowel obstruction with transition point in the right lower quadrant. Trace bilateral pleural effusions with associated atelectasis. Hepatic steatosis, correlation with LFTs is recommended. Wall thickening of the distal esophagus, clinical correlation for reflux/esophagitis is recommended. CRITICAL TEST RESULT COMMUNICATION: Notification of these findings was made to MICHAEL BERUMEN via phone call on 11/03/2023 10:48 PM EST. Report Dictated on Electronically Signed By: Daron Daly MD Electronically Signed Date/Time: 11/03/2023 10:57 PM EST XR chest 1 view Final Result 1. Stable examination. No acute findings. 2. Gastric distention, nonspecific. Report Dictated on Electronically Signed By: Jairo Hughes MD Electronically Signed Date/Time: 11/03/2023 8:07 PM EST ED BEDSIDE ULTRASOUND: Performed by ED Physician - none LABS: Labs Reviewed CBC WITH AUTO DIFFERENTIAL LIPASE COMPLETE URINALYSIS WITH REFLEX TO CULTURE Narrative: The following orders were created for panel order Urinalysis Complete with reflex to Culture. Procedure Abnormality Status --------- ------ Complete Urinalysis[[id number]] Please view results for these tests on the individual orders. HEPATIC FUNCTION PANEL BASIC METABOLIC PANEL TROPONIN, WITH SERIAL REFLEX COMPLETE URINALYSIS All other labs were within normal range or not returned as of this dictation. EMERGENCY DEPARTMENT COURSE and DIFFERENTIAL DIAGNOSIS/MDM: Vitals: Vitals: 11/03/23 1927 BP: 128/77 BP Location: Left arm Pulse: (!) 118 Resp: 14 Temp: 37 C (98.6 F) TempSrc: Oral SpO2: 93% Weight: 60.8 kg (134 lb) Height: 1.626 m (5' 4 ) Patient is a 67-year-old female presenting to the emergency room due to concern for bilateral upperquadrant abdominal pain. Patient vitals are concerning for tachycardia with heart rate 118 remainder vital stable. Physical exam as noted above. At this time my differential diagnosis includes but not limited to cholecystitis versus pancreatitis, acute coronary syndrome, pneumonia, peptic ulcer disease, UTI, urolithiasis. Patient was initially treated 0.5 mg of Dilaudid, 1 L normal saline and given 40 mg of IV famotidine. Per chart review patient was admitted between June 23 through July 10, 2023 with concern for diverticulitis. Patient was treated with antibiotics. Patient also had a right total hip arthroplasty on October 16, 2023. Repeat evaluation patient states that she had no significant relief with Dilaudid. Patient was thengiven ketamine for pain control. At that time patient states that she only had 1 episode of black stool. She states that today stool was brown. Furthermore patient did declined rectal exam. I did inform her of the importance of vital her rectum for pathology patient declined. Due to concern for intractable pain patient was also given Mylanta. Patient also received 6 mg of IV morphine for pain control. Patient states that she previously had some relief with morphine in the past. Patient's patient coag labs are present for mild elevation of INR to 1.2. Patient's COVID flu RSV was negative. Patient lactic acid was mildly elevated 2.1. Patient's troponin was unremarkable. Patient's BMP showed concerns for mild hyponatremia sodium 134. Patient's hepatic function was grossly unremarkable. Patient's lipase was unremarkable. Patient CBC did show concerns for leukocytosis white count of 16 there is also anemia with hemoglobin 10.9 with MCV of 78.8 concerning for microcytic anemia. Patient also had a thrombocytosis with a platelet count of 86 this may be all secondary to acute phase reactant. X-ray was read with concerns for nonspecific gastric distention. I did speak directly with radiologist regarding patient's CT findings. CT findings do show concern for sigmoid abscess with free air and early signs of bowel obstruction. Patient was informed of these results. Patient was also started on Zosyn. I did consult general surgery. I did speak directly with Dr. Lopez guarding this patient's care. He agreed to admit the patient to his service and likely operate on her due to concern for findings physical exam and CT. Patient is in agreement with this plan. Patient's care was impacted by none. Patient's care was significantly impacted by social determinants of health including none. Medications sodium chloride 0.9 % bolus 1,000 mL (has no administration in time range) HYDROmorphone (Dilaudid) injection 0.5 mg (has no administration in time range) REVAL: CRITICAL CARE TIME None CONSULTS: None PROCEDURES: Unless otherwise noted below, none Procedures FINAL IMPRESSION 1. Abdominal pain, generalized 2. Diverticulitis of colon DISPOSITION PATIENT REFERRED TO: No follow-up provider specified. DISCHARGE MEDICATIONS: New Prescriptions No medications on file (Comment: Please note this report has been produced using speech recognition software and may contain errors related to that system including errors in grammar, punctuation, and spelling, as well as words and phrases that may be inappropriate. If there are any questions or concerns please feel freeto contact the dictating provider for clarification.) Michael Berumen DO (electronically signed) Emergency Medicine Provider Michael Berumen DO Resident 11/04/23 0019 * Juan Luna DO - 11/03/2023 7:19 PM EST Emergency Department Encounter [facility] ED Patient: Priscila Cha : 1955 Date of Evaluation: 11/03/2023 ED Supervising Physician: Juan Luna DO I personally evaluated Priscila Cha and made/approved the management plan and take responsibilityfor the patient management. This will serve as my Supervisory note and shared attestation. I did perform a substantive portion of the visit including all aspects of the Medical Decision Making. I wore appropriate PPE for the entirety of this encounter. In brief, Priscila Cha is a 67 y.o. that presents to the emergency department with upper abdominal pain. No fever. Complaining of severe pain for the last couple of days. Focused exam: Vital signs noted. Ill and uncomfortable appearing patient lying in bed, normal respiratory pattern without conversational dyspnea or respiratory distress. Normal speech and mental status. Concerning abdominal exam with diffuse tenderness to palpation worse in the upper abdomen, guarding to fingertip pressure. Concerning for peritonitis. Brief ED course/MDM: CT result reviewed. IV analgesics and IV antibiotics ordered. General surgery consulted. Diagnostics interpreted by me: I personally discussed the patient's management with other clinicians: All diagnostic, treatment, and disposition decisions were made by myself in conjunction with the Resident. I also supervised shahid portions of any procedures performed by the Resident. For all further details of the patient's emergency department visit, please see their documentation. (Comment: Please note this report has been produced using speech recognition software and may contain errors related to that system including errors in grammar, punctuation, and spelling, as well as words and phrases that may be inappropriate. If there are any questions or concerns please feel freeto contact the dictating provider for clarification.) Juan Luna DO Acute Care [facility] Juan Luna DO 11/03/23 2252 documented in this [facility]02-17-2024 Emergency department Note* Maritza Manjarrez RN - 11/04/2023 12:38 AM EST Called and updated patients at this time on plan of care Maritza Manjarrez RN 11/04/23 0038 [id number] NoteCalled and updated patients at this time on plan of care Maritza Manjarrez RN 11/04/23 0038[facility]02-17-2024 Emergency department Note* Maritza Manjarrez RN - 11/04/2023 12:06 AM EST Pt assisted onto bedpan, states that she has been unable to void with external catheter on. Maritza Manjarrez RN 11/04/23 0007 [id number] Emergency department Note* Maritza Manjarrez RN - 11/03/2023 11:42 PM EST Pts pulse ox 90% on RA. Pt denies distress, denies CP or SOB. 2L NC applied and pts pulse ox to 96%. Dr Berumen notified. Maritza Manjarrez RN 11/03/23 [address]342 [id number] Emergency department Note* Maritza Manjarrez RN - 11/03/2023 11:34 PM EST Offered to call patients at this time to give updates, pt declines, states that she wants to wait until she gets updated from MD about general surgeries recommendations. Maritza aMnjarrez RN 11/03/23 [address]335 [id number] Emergency department Note* WILNER Weiss - 11/03/2023 10:55 PM EST Pt placed on puriwick for comfort and to provide urine sample. Pt resting dry and comfortable. WILNER Weiss 11/03/23 6856 [id number] Emergency department Note* Maritza Manjarrez RN - 11/03/2023 8:[address] Berumen notified of patients + sepsis screening at this time Maritza Manjarrez RN 11/03/232046 [id number] Emergency department Note* WILNER Wallace - 11/03/2023 7:38 PM EST Guided Deja back WILNER Wallace 11/03/231937 [id number] Emergency department Note* WILNER Wallace - 11/03/2023 7:20 PM EST Introduced myself as pt liaison and explained role provide support to Deja in jess , pt arrived via EMS. WILNER Wallace 11/03/231920 [facility] [id number] Physician Emergency department Note* Michael Berumen DO - 11/03/2023 7:19 PM EST EMERGENCY DEPARTMENT ENCOUNTER Pt Name: Priscila Cha Birthdate 1955 Date of evaluation: 11/03/2023 ED Provider: Michael Berumen DO CHIEF COMPLAINT Chief Complaint Patient presents with Abdominal Pain Pt c/o upper abd pain that began today. States that she had right hip surgery two weeks ago, has been getting around with a walker at home. C/o diarrhea & constipation. +nausea. Pt has been taking pain medication since surgery, states that she stopped taking her stool softener. HISTORY OF PRESENT ILLNESS (Location/Symptom, Timing/Onset, Context/Setting, Quality, Duration, Modifying Factors, Severity) Note limiting factors. I wore appropriate PPE for the entirety of this encounter. HPI Priscila Cha is a 67 y.o. past medical history of hypertension, COPD, arthritis, pneumonia, recent total hip arthroplasty 2 weeks presents to the emergency room due to concern for bilateral upper quadrant pain. Patient states the pain in the upper quadrant is progressively getting worse. She stated started 2 days prior. She states that today is the worst pain. She states that she has decreased appetite secondary to pain. She is also complaining of nausea and vomiting. She denies noticing any blood in her vomit. She states she has had a bowel movement that was small this morning. She states that she has had a couple black stools recently. She denies use of Pepto-Bismol or iron supplementation. She states that she has been taking magnesia for pain in her abdomen in addition to [place] for pain control forearm her hip surgery. Patient denies any fevers or chills. She denies any shortness of breath or chest pain. She denies any tobacco alcohol or illicit drug use. Nursing Notes were reviewed. Limitations to history: None Outside historians: None REVIEW OF SYSTEMS Review of Systems Pertinent positives and negatives as per HPI. PAST MEDICAL HISTORY Past Medical History: Diagnosis Date Arthritis COPD exacerbation (HCC) 06/20/2022 Pneumonia 03/04/2019 Primary hypertension 06/24/2023 SURGICAL HISTORY Past Surgical History: Procedure Laterality Date BACK SURGERY N/A 2017 lower back in middle MANDIBLE SURGERY Bilateral 1983 wires on both jaws now TONSILLECTOMY (HISTORICAL) CURRENT MEDICATIONS Previous Medications ALBUTEROL 108 (90 BASE) MCG/ACT INHALER Inhale 2 puffs every 4 hours as needed for shortness of breath or wheezing. AMLODIPINE (NORVASC) 5 MG TABLET Take 1 tablet by mouth daily. CLONAZEPAM (KLONOPIN) 0.5 MG TABLET Take 0.5 mg by mouth 2 times daily. LYVWRIHZUKP-ZDUVOSTCF-QDUCXR (TRELEGY ELLIPTA) 100-62.5-25 MCG/ACT AEROSOL POWDER Inhale 1 puff daily. GABAPENTIN (NEURONTIN) 300 MG CAPSULE Take 300 mg by mouth 2 times daily as needed. HYDROCODONE-ACETAMINOPHEN (NORCO) 5-325 MG TABLET SENNA-DOCUSATE SODIUM (SENOKOT-S) 8.6-50 MG TABLET Take 2 tablets by mouth daily. TRAZODONE (DESYREL) 50 MG TABLET Take 50 mg by mouth every evening. ALLERGIES Codeine, Levofloxacin, and Sulfa antibiotics FAMILY HISTORY Family History Problem Relation Name Age of Onset No Known Problems Other No Known Problems Brother No Known Problems Maternal Grandfather No Known Problems Paternal Grandfather No Known Problems Sister No Known Problems Maternal Grandmother No Known Problems Paternal Grandmother SOCIAL HISTORY Social History Socioeconomic History Marital status: Tobacco Use Smoking status: Every Day Packs/day: .25 Types: Cigarettes Smokeless tobacco: Current Tobacco comments: Quit smoking: trying to quit Substance and Sexual Activity Alcohol use: Not Currently Drug use: Yes Types: Marijuana Comment: Medical Marijuana and gummies Sexual activity: Defer SCREENINGS PHYSICAL EXAM ED Triage Vitals [11/03/231926] Temp Heart Rate Resp BP 37 C (98.6 F) (!) 118 14 128/77 SpO2 Temp Source Heart Rate Source Patient Position 93 % Oral Monitor -- BP Location FiO2 (%) Left arm -- Physical Exam Constitutional: General: She is in acute distress. Appearance: She is normal weight. She is ill-appearing. She is not toxic- appearing or diaphoretic. HENT: Right Ear: External ear normal. Left Ear: External ear normal. Nose: Nose normal. Mouth/Throat: Mouth: Mucous membranes are moist. Pharynx: Oropharynx is clear. Eyes: General: No scleral icterus. Right eye: No discharge. Left eye: No discharge. Conjunctiva/sclera: Conjunctivae normal. Cardiovascular: Rate and Rhythm: Regular rhythm. Tachycardia present. Pulses: Radial pulses are 2+ on the right side and 2+ on the left side. Dorsalis pedis pulses are 2+ on the right side and 2+ on the left side. Heart sounds: Normal heart sounds. No murmur heard. No friction rub. No gallop. Pulmonary: Effort: Pulmonary effort is normal. No respiratory distress. Breath sounds: Normal breath sounds. No stridor. No wheezing, rhonchi or rales. Chest: Chest wall: No tenderness. Abdominal: General: Bowel sounds are normal. There is distension. Palpations: Abdomen is soft. Tenderness: There is abdominal tenderness in the right upper quadrant, left upper quadrant and leftlower quadrant. There is left CVA tenderness and guarding. Musculoskeletal: Right lower leg: No edema. Left lower leg: No edema. Skin: General: Skin is warm. Capillary Refill: Capillary refill takes less than 2 seconds. Neurological: Mental Status: She is alert and oriented to person, place, and time. DIAGNOSTIC RESULTS Procedures/EKG: Sinus tachycardia [address] segment changes no T wave inversions. Normal axis and intervals. RADIOLOGY (Per Emergency Physician): Interpretation per the Radiologist below, if available at the time of this note: CT abdomen pelvis w contrast Final Result Findings most consistent with complicated diverticulitis of the sigmoid colon with small to moderate amount of free air in the abdomen and pelvis and developing abscess in the mid pelvis as described. Surgical consultation is recommended. Colonoscopy after treatment is recommended to exclude underlying mass. Findings consistent with developing small bowel obstruction with transition point in the right lower quadrant. Trace bilateral pleural effusions with associated atelectasis. Hepatic steatosis, correlation with LFTs is recommended. Wall thickening of the distal esophagus, clinical correlation for reflux/esophagitis is recommended. CRITICAL TEST RESULT COMMUNICATION: Notification of these findings was made to MICHAEL BERUMEN via phone call on 11/03/2023 10:48 PM EST. Report Dictated on Electronically Signed By: Daron Daly MD Electronically Signed Date/Time: 11/03/2023 10:57 PM EST XR chest 1 view Final Result 1. Stable examination. No acute findings. 2. Gastric distention, nonspecific. Report Dictated on Electronically Signed By: Jairo Hughes MD Electronically Signed Date/Time: 11/03/2023 8:07 PM EST ED BEDSIDE ULTRASOUND: Performed by ED Physician - none LABS: Labs Reviewed CBC WITH AUTO DIFFERENTIAL LIPASE COMPLETE URINALYSIS WITH REFLEX TO CULTURE Narrative: The following orders were created for panel order Urinalysis Complete with reflex to Culture. Procedure Abnormality Status --------- ------ Complete Urinalysis[[id number]] Please view results for these tests on the individual orders. HEPATIC FUNCTION PANEL BASIC METABOLIC PANEL TROPONIN, WITH SERIAL REFLEX COMPLETE URINALYSIS All other labs were within normal range or not returned as of this dictation. EMERGENCY DEPARTMENT COURSE and DIFFERENTIAL DIAGNOSIS/MDM: Vitals: Vitals: 11/03/231926 BP: 128/77 BP Location: Left arm Pulse: (!) 118 Resp: 14 Temp: 37 C (98.6 F) TempSrc: Oral SpO2: 93% Weight: 60.8 kg (134 lb) Height: 1.626 m (5' 4 ) Patient is a 67-year-old female presenting to the emergency room due to concern for bilateral upperquadrant abdominal pain. Patient vitals are concerning for tachycardia with heart rate 118 remainder vital stable. Physical exam as noted above. At this time my differential diagnosis includes but not limited to cholecystitis versus pancreatitis, acute coronary syndrome, pneumonia, peptic ulcer disease, UTI, urolithiasis. Patient was initially treated 0.5 mg of Dilaudid, 1 L normal saline and given 40 mg of IV famotidine. Per chart review patient was admitted between June 23 through July 10, 2023 with concern for diverticulitis. Patient was treated with antibiotics. Patient also had a right total hip arthroplasty on October 16, 2023. Repeat evaluation patient states that she had no significant relief with Dilaudid. Patient was thengiven ketamine for pain control. At that time patient states that she only had 1 episode of black stool. She states that today stool was brown. Furthermore patient did declined rectal exam. I did inform her of the importance of vital her rectum for pathology patient declined. Due to concern for intractable pain patient was also given Mylanta. Patient also received 6 mg of IV morphine for pain control. Patient states that she previously had some relief with morphine in the past. Patient's patient coag labs are present for mild elevation of INR to 1.2. Patient's COVID flu RSV was negative. Patient lactic acid was mildly elevated 2.1. Patient's troponin was unremarkable. Patient's BMP showed concerns for mild hyponatremia sodium 134. Patient's hepatic function was grossly unremarkable. Patient's lipase was unremarkable. Patient CBC did show concerns for leukocytosis white count of 16 there is also anemia with hemoglobin 10.9 with MCV of 78.8 concerning for microcytic anemia. Patient also had a thrombocytosis with a platelet count of 86 this may be all secondary to acute phase reactant. X-ray was read with concerns for nonspecific gastric distention. I did speak directly with radiologist regarding patient's CT findings. CT findings do show concern for sigmoid abscess with free air and early signs of bowel obstruction. Patient was informed of these results. Patient was also started on Zosyn. I did consult general surgery. I did speak directly with Dr. Lopez guarding this patient's care. He agreed to admit the patient to his service and likely operate on her due to concern for findings physical exam and CT. Patient is in agreement with this plan. Patient's care was impacted by none. Patient's care was significantly impacted by social determinants of health including none. Medications sodium chloride 0.9 % bolus 1,000 mL (has no administration in time range) HYDROmorphone (Dilaudid) injection 0.5 mg (has no administration in time range) REVAL: CRITICAL CARE TIME None CONSULTS: None PROCEDURES: Unless otherwise noted below, none Procedures FINAL IMPRESSION 1. Abdominal pain, generalized 2. Diverticulitis of colon DISPOSITION PATIENT REFERRED TO: No follow-up provider specified. DISCHARGE MEDICATIONS: New Prescriptions No medications on file (Comment: Please note this report has been produced using speech recognition software and may contain errors related to that system including errors in grammar, punctuation, and spelling, as well as words and phrases that may be inappropriate. If there are any questions or concerns please feel freeto contact the dictating provider for clarification.) Michael Berumen DO (electronically signed) Emergency Medicine Provider Michael Berumen DO Resident 11/04/23 0019 [id number] Physician Emergency department Note* Juan Luna DO - 11/03/2023 7:19 PM EST Emergency Department Encounter [facility] ED Patient: Priscila Cha : 1955 Date of Evaluation: 11/03/2023 ED Supervising Physician: Juan Luna DO I personally evaluated Priscila Cha and made/approved the management plan and take responsibilityfor the patient management. This will serve as my Supervisory note and shared attestation. I did perform a substantive portion of the visit including all aspects of the Medical Decision Making. I wore appropriate PPE for the entirety of this encounter. In brief, Priscila Cha is a 67 y.o. that presents to the emergency department with upper abdominal pain. No fever. Complaining of severe pain for the last couple of days. Focused exam: Vital signs noted. Ill and uncomfortable appearing patient lying in bed, normal respiratory pattern without conversational dyspnea or respiratory distress. Normal speech and mental status. Concerning abdominal exam with diffuse tenderness to palpation worse in the upper abdomen, guarding to fingertip pressure. Concerning for peritonitis. Brief ED course/MDM: CT result reviewed. IV analgesics and IV antibiotics ordered. General surgery consulted. Diagnostics interpreted by me: I personally discussed the patient's management with other clinicians: All diagnostic, treatment, and disposition decisions were made by myself in conjunction with the Resident. I also supervised shahid portions of any procedures performed by the Resident. For all further details of the patient's emergency department visit, please see their documentation. (Comment: Please note this report has been produced using speech recognition software and may contain errors related to that system including errors in grammar, punctuation, and spelling, as well as words and phrases that may be inappropriate. If there are any questions or concerns please feel freeto contact the dictating provider for clarification.) Juan Luna DO [employer] Juan Luna DO 11/03/23 2252 [employer] Work Phone: [phone] 427-517402-15-2024 Miscellaneous Notes* PT DISCHARGE - Conner Stoll PT - 11/02/2023 10:02 AM EST SITUATION: spouse present during today's visit. patient reports the following since the last homecare visit: medications/allergies--no changes, no fall. patient reports agreeable to home PT d/c. BACKGROUND: Diagnoses (reason for Home Care): Right LEN[place] Weight Bearing/Precaution Changes: no changes ASSESSMENT: Focus of visit: Agency d/c. Patient is doing well with mobility and is independent. She is still having some issues with abdominal discomfort due to costipation. Encouraged patient to f/u with Dr. Dee, and if pain becomes too uncomfortable to got to ER. Physical therapy discharged: goals achieved. Functional performance at discharge - bed mobility independent, transfers independent, ambulation independent and stairs independent. Plan of care, goals, and discharge reviewed and agreed upon with patient and/or caregiver. RECOMMENDATION: Patient discharged from home health services. Instructions to include:begin outpatient therapy on 11/06/23 See intervention summary for intervention/education details. [facility] Miscellaneous Notes* PT ROUTINE/REASSESSMENT/RECERT/CASE MGMT - Lyudmila Prieto, DANUTA - 10/31/2023 8:31 AM EST SITUATION: spouse present during today's visit. patient and caregiver reports the following since the last homecare visit: medications/allergies--no changes, no fall. patient reports she is still having some constipation at times, but bowels are moving today (had a BM during viist). reports stomach cramping when constipated. Agreeable to PT but asks for limited session due to cramps today. BACKGROUND: Diagnoses (reason for Home Care): RTHA Weight Bearing/Precaution Changes: no changes ASSESSMENT: Focus of visit Gait training and progression to cane. Verbal HEP review, transfer training. NOMNc issued and signed. Patient is prepared for PT d/c next visit and ready to begin OP PT next week. Plan of care, goals, and visit frequency reviewed and agreed upon with patient and/or caregiver. Current Discharge Plan: outpatient rehab Anticipate discharge by 11/02/23 RECOMMENDATION: Next visit to focus on possible PT d/c. See intervention summary for intervention/education details. [facility] in this [facility] NoteHNO ID: [id number] Author: RUBÉN JIMENES MD Service: ? Author Type: Physician Type: Progress Notes Filed: 10/30/2023 14:18 Note Text: ORTHOPAEDIC OFFICE NOTE CHIEF COMPLAINT: Right total hip arthroplasty HISTORY OF PRESENT ILLNESS: Priscila Cha is a 67 year old female who presents for Postoperative valuation following right total hip arthroplasty on 10/16/2023. Overall she is doing okay. She still in some significant soreness along the hip. She is ambulate with assistance of a walker at home. She is working with in-home physical therapy to be set to transition to outpatient physical therapy early next week. She denies current fevers chills nausea vomiting weight loss fatigue or malaise. She is having some constipation that is responding well to milk of magnesia. Reviewed nursing note and current pain scale. PAST MEDICAL HISTORY Diagnosis Date Anxiety Arthritis Atrophic vaginitis Chronic pain Constipation COPD (chronic obstructive pulmonary disease) (HCC) Depression Dyspareunia in female Headache, migraine Hemorrhoids IBS (irritable bowel syndrome) patient denies IBS pt will d/w PCP Menopausal and female climacteric states Multilevel degenerative disc disease Panic disorder Shingles recurring Sinusitis Sleep apnea Spondylolisthesis at L5-S1 level Urinary frequency PAST SURGICAL HISTORY Procedure Laterality Date BACK SURGERY HX 06/2017 cage around discs CATARACT EXTRACTION HX 2008 COLONOSCOPY 01/10/2018 EXTENSIVE JAW SURGERY 1983 SEPTOPLASTY 1985 TONSILLECTOMY HX age 4 FAMILY HISTORY Problem Relation Age of Onset Coronary Artery Disease Mother Coronary Artery Disease Father Colon Cancer Paternal Grandmother Arthritis Other other (Congestive heart failure) Other Thyroid Other Disorder Social History Tobacco Use Smoking status: Former Packs/day: .75 Types: Cigarettes Quit date: 09/27/2023 Years since quittin.0 Smokeless tobacco: Never Tobacco comments: Trying to quit Vaping Use Vaping Use: Never used Substance Use Topics Alcohol use: No Drug use: Yes Types: Marijuana Comment: THC gummies MEDICATIONS: Current Outpatient Medications Medication Sig dicyclomine (BENTYL) 20 mg tablet Take 20 mg by mouth three times a day as needed (GI upset). MAGNESIUM GLYCINATE ORAL Take 400 mg by mouth once daily. HERBAL THERAPY CBD Gummie- Take one by mouth daily at bedtime as needed for insomnia aspirin, enteric coated (ADULT LOW DOSE ASPIRIN) 81 mg EC tablet Take 1 tablet by mouth two times a day for 21 days. albuterol HFA (PROVENTIL HFA, VENTOLIN HFA) 90 mcg/actuation inhaler Inhale 2 Puffs as instructed every 4 hours as needed for wheezing/shortness of breath. cholecalciferol (VITAMIN D3) 1,000 unit tab tablet 2 tabs Orally Once a day TRELEGY ELLIPTA 200-62.5-25 mcg inhalation powder Inhale 1 Puff as instructed once daily. takes in morning traZODone (DESYREL) 50 mg tablet Take 50 mg by mouth daily at bedtime. clonazePAM (KLONOPIN) 0.5 mg tablet Take 0.25 mg by mouth two times a day as needed for anxiety. Patient reports that Klonopin 0.5mg daily prn is prescribed but that when at home she usually takes Klonopin 0.25mg bid prn Paula Bernal, [facility] October 17, 2023 7:43 AM gabapentin (NEURONTIN) 300 mg capsule Take 300 mg by mouth daily at bedtime. oxyCODONE IR (ROXICODONE) 5 mg immediate release tablet Take 1 tablet by mouth every 6 hours as needed for pain for up to 7 days. for pain. No current facility-administered medications for this visit. ALLERGIES: ALLERGIES Allergen Reactions Levaquin [Levofloxa* GI Upset Sulfa (Sulfonamide * Vomiting PHYSICAL EXAMINATION: Resp 18 Ht 5' 3 (1.60m) Wt 134 lb (60.8kg) BMI 23.74 kg/(m2). General Appearance: Well appearing, alert, in no acute distress, well-hydrated, well nourished. Skin: Skin color, texture, turgor normal, no suspicious rashes or lesions. Psych: Patient is alert and oriented to person, time and place. Mood and affect are normal. Respiratory: Breathing is symmetric and unlabored Gait: Patient was examined in a wheelchair today. Extremities: Right lower extremity examined. Laterally based incision is well-healed without drainage or sign of infection. There is no focal tenderness or palpable mass. Gentle range of motion of the hip is relatively pain-free. Lymphatic: There is no palpable lymphadenopathy Peripheral Pulses: Normal. Neurologic: Bilateral lower extremities were examined. There is 5/5 strength with hip flexion, knee extension, dorsiflexion, EHL, plantar flexion. Sensation intact in all nerve dermatomes IMAGES: Physician office building radiographs, 10/30/2023. AP view the pelvis was obtained reviewed. Demonstrates right total hip arthroplasty. Components. Well aligned without sign of loosening, subsidence or failure. There is no acute fracture or destructive lesion appreciable. Soft tissues otherwise un (more content not included)...[facility]02-12-2024 History of Present illness Narrative* Rubén Jimenes MD - 10/30/2023 2:16 PM EST Images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 Dorsiflexion (L4): 5/5 R Ankle Plantar Flexion: 5/5 L Hip Flexion (L2): 4+/5 L Knee Extension (L3): 5/5 L Knee Flexion: 5/5 L Ankle Dorsiflexion (L4): 5/5 Gait Weight Bearing Status: FWB Gait: Independent Gait Deviations: Right Lower Extremity Gait Deviations Right Lower Extr (more content not included)...[facility]01-10-2024 History of Present illness Narrative* Adria Lopez MD - 09/27/2023 10:30 AM EST General Surgery History and Physical HPI: This is a 67 y/o F who presents to office for evaluation of her abdominal symptoms as she has upcoming hip surgery and would need clearance prior to proceeding with orthopedic surgery. She has hx of diverticulitis of sigmoid that we have seen her for. Last office appointment was 3 months ago and was noted to have improving sigmoid diverticulitis. She reports for past two weeks has been noting crampy abdominal pain in the mornings then resolved by mid day. She reports seems to be associatedaround her bowel movements. She denies N/V. Okay appetite. She reports moving bowels once a day. She states symptoms different from prior bouts of diverticulitis. Thoroughly reviewed the patient's medical history, family history, social history and review of systems with the patient today in the office. Please see medical record for pertinent positives. Impression /Treatment: Occasional crampy left lower quadrant pain associated with bowel movements otherwise asymptomatic. She is yet to follow-up with GI for colonoscopy. Given current findings I think it is reasonable to proceed with right hip surgery. Patient counseled on risks, benefits, and alternatives of treatment plan at length while in the office today. Patient states an understanding andwillingness to proceed with plan. Past Medical History: Diagnosis Date Arthritis COPD exacerbation (HCC) 06/20/2022 Pneumonia 03/04/2019 Primary hypertension 06/24/2023 Past Surgical History: Procedure Laterality Date BACK SURGERY N/A 2017 lower back in middle MANDIBLE SURGERY Bilateral 1983 wires on both jaws now TONSILLECTOMY (HISTORICAL) Current Outpatient Medications Medication Sig Dispense Refill albuterol 108 (90 Base) MCG/ACT inhaler Inhale 2 puffs every 4 hours as needed for shortness of breath or wheezing. amLODIPine (Norvasc) 5 MG tablet Take 1 tablet by mouth daily. clonazePAM (KlonoPIN) 0.5 MG tablet Take 0.5 mg by mouth 2 times daily. Qkfvnrsvmsb-Afebsolro-Oitacu (Trelegy Ellipta) 100-62.5-25 MCG/ACT aerosol powder Inhale 1 puff daily. gabapentin (Neurontin) 300 MG capsule Take 300 mg by mouth 2 times daily as needed. senna-docusate sodium (Senokot-S) 8.6-50 MG tablet Take 2 tablets by mouth daily. 60 tablet 11 traZODone (Desyrel) 50 MG tablet Take 50 mg by mouth every evening. HYDROcodone-acetaminophen ([place]) 5-325 MG tablet No current facility-administered medications for this visit. Allergies Allergen Reactions Codeine Levofloxacin Other reaction(s): GI Upset, U Sulfa Antibiotics Other reaction(s): Vomiting Review of Systems: Review of Systems Constitutional: Negative for appetite change, chills, fatigue, fever and unexpected weight change. Respiratory: Negative for cough, shortness of breath and wheezing. Cardiovascular: Negative for chest pain and palpitations. Gastrointestinal: Positive for abdominal pain. Negative for constipation, diarrhea, nausea, rectal pain and vomiting. Skin: Negative for rash and wound. Neurological: Negative for seizures and syncope. Hematological: Negative for adenopathy. Does not bruise/bleed easily. Physical Exam: BP 137/88 Pulse (!) 130 Temp 36.6 C (97.9 F) Ht 5' 3 (1.6 m) Wt 134 lb 12.8 oz (61.1 kg) LMP (LMP Unknown) BMI 23.88 kg/m Physical Exam Constitutional: Appearance: Normal appearance. HENT: Head: Normocephalic. Eyes: Pupils: Pupils are equal, round, and reactive to light. Cardiovascular: Rate and Rhythm: Normal rate and regular rhythm. Pulses: Normal pulses. Pulmonary: Effort: Pulmonary effort is normal. No respiratory distress. Breath sounds: Normal breath sounds. No rales. Abdominal: General: Bowel sounds are normal. Palpations: Abdomen is soft. There is no mass. Tenderness: There is no abdominal tenderness. Musculoskeletal: General: No swelling or tenderness. Cervical back: Normal range of motion. No tenderness. Lymphadenopathy: Cervical: No cervical adenopathy. Skin: General: Skin is warm and dry. Neurological: Mental Status: She is alert and oriented to person, place, and time. Psychiatric: Behavior: Behavior normal. No orders of the defined types were placed in this encounter. Follow Up: No follow-ups on file. Adria Lopez MD RB 09/27/2023 documented in this [facility]01-10-2024 Miscellaneous Notes* Addendum Note - MINNA Dobson CNP - 09/27/2023 10:30 AM ESTAddended by: FERNANDO BRADY on: 09/27/2023 12:06 PM Modules accepted: Orders documented in this [facility]01-10-2024 Note* Addendum Note - MINNA Dobson CNP - 09/27/2023 10:30 AM ESTAddended by: FERNANDO BRADY on: 09/27/2023 12:06 PM Modules accepted: [id number]* Addendum Note - MINNA Dobson CNP - 09/27/2023 10:30 AM ESTAddended by: FERNANDO BRADY on: 09/27/2023 12:06 PM Modules accepted: Orders [facility]01-10-2024 NoteAddended by: FERNANDO BRADY on: 09/27/2023 12:06 PM Modules accepted: [facility]01-08-2024 NoteHNO ID: [id number] Author: RUBÉN JIMENES MD Service: ? Author Type: Physician Type: Progress Notes Filed: 09/25/2023 11:52 Note Text: ORTHOPAEDIC OFFICE NOTE CHIEF COMPLAINT: Right hip pain HISTORY OF PRESENT ILLNESS: Priscila Cha is a 67 year old female who presents for Follow-up evaluation of right hip pain. Patient reports that her pain is significantly increased over the last 2 months. Previous injection approximately 4 months ago was effective for a couple months for the pain returned. She locates pain within the groin and states it is constant nature but worse with activity. She rates pain a 10/10 in intensity. She has more or less been unable to walk over the last couple months. She is unable take anti-inflammatory medications due to ongoing parks diverticulitis. She will take Tylenol for pain relief which is helpful. She does not require assistive device. She denies current fevers chills nausea vomiting weight loss fatigue or malaise. Of note, the pain has progressed to the point that it is having a significant negative impact on her quality of life and ability perform activities of daily living. Reviewed nursing note and current pain scale. PAST MEDICAL HISTORY Diagnosis Date Anxiety Arthritis Atrophic vaginitis Chronic pain Constipation COPD (chronic obstructive pulmonary disease) (HCC) Depression Dyspareunia in female Headache, migraine Hemorrhoids IBS (irritable bowel syndrome) patient denies IBS pt will d/w PCP Menopausal and female climacteric states Multilevel degenerative disc disease Panic disorder Shingles recurring Sinusitis Spondylolisthesis at L5-S1 level Urinary frequency PAST SURGICAL HISTORY Procedure Laterality Date BACK SURGERY HX 06/2017 cage around discs CATARACT EXTRACTION HX 2008 COLONOSCOPY 01/10/2018 EXTENSIVE JAW SURGERY 1983 SEPTOPLASTY 1985 TONSILLECTOMY HX age 4 FAMILY HISTORY Problem Relation Age of Onset Coronary Artery Disease Mother Coronary Artery Disease Father Colon Cancer Paternal Grandmother Arthritis Other other (Congestive heart failure) Other Thyroid Other Disorder Social History Tobacco Use Smoking status: Every Day Packs/day: .75 Types: Cigarettes Smokeless tobacco: Never Tobacco comments: Trying to quit Vaping Use Vaping Use: Never used Substance Use Topics Alcohol use: No Drug use: No MEDICATIONS: Current Outpatient Medications Medication Sig albuterol HFA (PROVENTIL HFA, VENTOLIN HFA) 90 mcg/actuation inhaler Inhale 2 Puffs as instructed every 4 hours as needed. cholecalciferol (VITAMIN D3) 1,000 unit tab tablet 2 tabs Orally Once a day TRELEGY ELLIPTA 200-62.5-25 mcg inhalation powder traZODone (DESYREL) 50 mg tablet clonazePAM (KLONOPIN) 0.5 mg tablet Take 0.5 mg by mouth twice daily as needed. ibuprofen (MOTRIN) 600 mg tablet Take 600 mg by mouth every 6 hours as needed. gabapentin (NEURONTIN) 300 mg capsule Take 300 mg by mouth daily at bedtime. No current facility-administered medications for this visit. ALLERGIES: ALLERGIES Allergen Reactions Levaquin [Levofloxa* GI Upset Sulfa (Sulfonamide * Vomiting PHYSICAL EXAMINATION: Resp 20 Ht 5' 3 (1.60m) Wt 135 lb 3.2 oz (61.3kg) BMI 23.96 kg/(m2). General Appearance: Well appearing, alert, in no acute distress, well-hydrated, well nourished. Skin: Skin color, texture, turgor normal, no suspicious rashes or lesions. Psych: Patient is alert and oriented to person, time and place. Mood and affect are normal. Respiratory: Breathing is symmetric and unlabored Gait: The patient was examined in a wheelchair today. She is unable to stand. Extremities: Right lower extremity was examined. Skin is intact without erythema, ecchymosis or surgical scar. There is no significant swelling, edema or effusion. There is no focal tenderness or palpable mass. Range of motion of the hip is 100 degrees forward flexion 20 degrees external rotation, 5 degrees internal rotation. There is pain with internal rotation. There is no pain with logroll or axial loading of the hip. Range of motion of the knee is painless. Straight leg test negative. Lymphatic: There is no palpable lymphadenopathy Peripheral Pulses: Normal. Neurologic: Bilateral lower extremities were examined. There is 5/5 strength with hip flexion, knee extension, dorsiflexion, EHL, plantar flexion. Sensation intact in all nerve dermatomes IMAGES: Physician office building radiographs dated 09/25/2023 was reviewed. AP and lateral views of the right hip demonstrate severe osteoarthritis of the right hip with worsening loss of joint space and subchondral sclerosis. There is no acute fracture or destructive lesion appreciable. Soft tissues otherwise unremarkable. Plan ASSESSMENT AND PLAN: 1. Primary osteoarthritis of right hip - ICD9: 715.15, ICD10: M16.11 (primary diagnosis) 2. Chronic bronchitis, unspecified chronic bronc (more content not included)... [facility]12-29-2023 NoteHNO ID: [id number] Author: Mitzi Wang PA-C Service: ? Author Type: Physician Warp Placer Type: Progress Notes Filed: 09/15/2023 10:48 AM Note Text: CHIEF COMPLAINT: Patient presents with: Diverticulitis: Pt in a lot of pain. Almost went to the ER yesterday. States it feels like when she had diverticulitis in June, was in the hospital and has had the pain off and on since then. The pain got worse over the past few days. This consult was requested by Leonid Dee Jr* for an opinion regarding Diverticulitis. My final recommendations will be communicated to the requesting health care provider by way of the shared medical record for internal providers or letter via the [facility] Postal Service for external providers. HPI: Priscila Cha is a 67 year old female who presents for Diverticulitis (Pt in a lot of pain. Almost went to the ER yesterday. States it feels like when she had diverticulitis in June, was in the hospital and has had the pain off and on since then. The pain got worse over the past few days. ). PMHx of anxiety, arthritis, constipation, COPD Patient here for follow up of diverticulitis. Was feeling well up to several days ago and then developed severe LLQ pain. Patient is obvious distress during visit today. Notes nausea. No fevers. CT abd/pelvis 06/23/2023: Impression 1. Acute diverticulitis involving the the distal descending colon extending into the sigmoid colon. No focal fluid collection or evidence of perforation. 2. Moderate to severe mixed atherosclerotic plaque with infrarenal abdominal aortic aneurysm measuring 3.3 x 3.0 cm, previously 2.9 x 2.7 cm. Please see below recommendations. 3. Mild biliary ductal dilatation also seen on prior study and likely postsurgical. 4. Tiny joe of intraluminal air within the urinary bladder. This is nonspecific and could reflect recent instrumentation or infection. Given proximity to sigmoid colon fistula could be considered though this is felt to be less likely. Record Review: [facility] / Outside records reviewed. PAST MEDICAL HISTORY Diagnosis Date Anxiety Arthritis Atrophic vaginitis Chronic pain Constipation COPD (chronic obstructive pulmonary disease) ([facility]) Depression Dyspareunia in female Headache, migraine Hemorrhoids IBS (irritable bowel syndrome) patient denies IBS pt will d/w PCP Menopausal and female climacteric states Multilevel degenerative disc disease Panic disorder Shingles recurring Sinusitis Spondylolisthesis at L5-S1 level Urinary frequency PAST SURGICAL HISTORY Procedure Laterality Date BACK SURGERY HX 06/2017 cage around discs CATARACT EXTRACTION HX 2008 COLONOSCOPY 01/10/2018 EXTENSIVE JAW SURGERY 1983 SEPTOPLASTY 1985 TONSILLECTOMY HX age 4 Allergies: ALLERGIES Allergen Reactions Levaquin [Levofloxa* GI Upset Sulfa (Sulfonamide * Vomiting Medications: albuterol HFA (PROVENTIL HFA, VENTOLIN HFA) 90 mcg/actuation inhaler Inhale 2 Puffs as instructed every 4 hours as needed. cholecalciferol (VITAMIN D3) 1,000 unit tab tablet 2 tabs Orally Once a day TRELEGY ELLIPTA 200-62.5-25 mcg inhalation powder traZODone (DESYREL) 50 mg tablet clonazePAM (KLONOPIN) 0.5 mg tablet Take 0.5 mg by mouth twice daily as needed. ibuprofen (MOTRIN) 600 mg tablet Take 600 mg by mouth every 6 hours as needed. gabapentin (NEURONTIN) 300 mg capsule Take 300 mg by mouth daily at bedtime. FAMILY HISTORY Problem Relation Age of Onset Coronary Artery Disease Mother Coronary Artery Disease Father Colon Cancer Paternal Grandmother Arthritis Other other (Congestive heart failure) Other Thyroid Other Disorder Employer And Job Title: None on file Years Of Education Completed: Not specified Marital Status: with 3 children Social History Tobacco Use Smoking status: Every Day Packs/day: .75 Types: Cigarettes Smokeless tobacco: Never Tobacco comments: Trying to quit Vaping Use Vaping Use: Never used Substance Use Topics Alcohol use: No Drug use: No Review of Systems: Review of Systems Gastrointestinal: Positive for abdominal pain and nausea. All other systems reviewed and are negative. Are you taking any blood thinners? No Physical Examination: BP 152/100 Pulse 90 Ht 5' 3 (1.60m) Wt 134 lb 9.6 oz (61.1kg) BMI 23.85 kg/(m2). Physical Exam Constitutional: General: She is in acute distress. Appearance: Normal appearance. She is normal weight. HENT: Head: Normocephalic and atraumatic. Eyes: General: No scleral icterus. Pulmonary: Effort: Pulmonary effort is normal. Musculoskeletal: General: No swelling. Cervical back: Normal range of motion. Skin: General: Skin is warm and dry. Coloration: Skin is not jaundiced. Neurological: General: No focal deficit present. Mental Status: She is alert and oriented to person, place, and time. Psychiatric: Mood and Affect: Moo (more content not included)...[facility] 08-21-2023 Miscellaneous Notes* Telephone Encounter - Rosario Justowriter Operator Elan Wiggins - 08/21/2023 1:45 PM EST ----- Message from Isa Dennis sent at 08/18/2023 12:21 PM EST ----- Regarding: Malcolm/Jalil Hip: Pain/Requesting Sooner Appt + Prednisone Script Contact: Orthopedics/Jalil Hip: Pain/Requesting Sooner Appt + Prednisone Script Patient has been identified by name and Date of (Y/N): y Patient: Priscila Cha Date of : 1955 Previous Provider Seen: Dr Jimenes Body Part(s) Identified: R hip Diagnosis/Reason For Visit: has appt sammy/ Dr Jimenes 09/28/23 for R hip pain. Pain is severe, so she is asking if it is possible to get sooner appt w/ Dr Jimenes or see another provider in the interim. If that's not possible, can she can a script for prednisone. Reason for the call/escalation: see above If reason for call/escalation is discharge from ED/ER or Hospital, which facility was the patient seen at: n/a Was an appointment scheduled (Y/N): n Person calling if other than patient: Deja Cha (spouse) Return call to if other than patient: same Best contact number: [phone] Thank you, Isa Dennis August 18, 2023 12:23 PM [facility] Evaluation + Plan note* Assessment & Plan Note - Helen Covington PA-C - 08/02/2023 3:11 PM EST Associated Problem(s): Sigmoid diverticulitis See above [id number] Miscellaneous Notes* Assessment & Plan Note - Helen Covington PA-C - 08/02/2023 3:11 PM ESTAssociated Problem(s): Sigmoid diverticulitis See above * Assessment & Plan Note - Helen Covington PA-C - 08/02/2023 3:09 PM EST Associated Problem(s): Intra-abdominal abscess (CMS/HCC) (HCC) Patient was to complete a 4 week course of Cefdinir + Metronidazole for intra- abd abscess in setting of diverticulitis. She reports she only took 10 days of abx outside the hospital due to intolerance. 07/[address] scan shows resolution of pericolic fluid collection. Plan to remain off antibiotics for now. * Assessment & Plan Note - Helen Covington PA-C - 08/02/2023 11:49 AM EST Associated Problem(s): Antibiotic drug intolerance Intolerance to Sulfa drugs and Levofloxacin. Reports GI upset, N/V documented in this [facility]11-15-2023 Evaluation + Plan note* Assessment & Plan Note - Helen Covington PA-C - 08/02/2023 3:09 PM EST Associated Problem(s): Intra-abdominal abscess (CMS/HCC) (HCC) Patient was to complete a 4 week course of Cefdinir + Metronidazole for intra- abd abscess in setting of diverticulitis. She reports she only took 10 days of abx outside the hospital due to intolerance. 07/[address] scan shows resolution of pericolic fluid collection. Plan to remain off antibiotics for now. [facility] [id number] History of Present illness Narrative* Helen Covington PA-C - 08/02/2023 2:00 PM EST Images from the original note were not included. [facility] Advanced Practice Provider Outpatient Progress Note HISTORYOF PRESENT ILLNESS 67 yo female with PMHx significant for arthritis, HTN, and COPD is here for EOT follow up for sigmoid diverticulitis + intra-abd fluid collection (2.3 x1.9 x 2.6cm) between the sigmoid and rectum in L pelvis revealed on 07/05 imaging. She has been on a course of Cefdinir and Metronidazole to complete 4 weeks total (through 08/02). On 07/[address] repeat [address] abd/pelvis that was without a pericolic fluid collection. Patient reports she only took 10 days of the antibiotics outside of the hospital. Per patient she was advised to stop taking by her Surgeon since they were causing her nausea. Reports she felt very weak and tired since leaving the hospital and generally unwell, but notes sheis getting somewhat better each day. Reports her anxiety has worsened since being in the hospital and she is now taking her anxiety medication daily rather than just when needed. Reports still experiencing LLQ abdominal discomfort, but states it is nothing like the shooting/stabbing pain that was experienced before . She reports she has been constipated and trying to take prune juice, but has stool softeners available. Reports some nausea, no vomiting. States not as bloated as she was while in hospital. Endorses trying to eat soft, bland foods for now. Denies new fever, chills, CP, SOB, and any urinary issues. No other new exacerbating or alleviatingfactors. Review of Systems Constitutional: Positive for appetite change and fatigue. Negative for chills and fever. HENT: Negative for congestion, ear pain, postnasal drip, rhinorrhea, sinus pressure, sinus pain andsore throat. Eyes: Negative for pain, discharge and itching. Respiratory: Negative for cough, chest tightness and shortness of breath. Cardiovascular: Negative for chest pain, palpitations and leg swelling. Gastrointestinal: Positive for abdominal pain, constipation and nausea. Negative for abdominal distention, diarrhea and vomiting. Genitourinary: Negative for dysuria, flank pain, frequency and urgency. Musculoskeletal: Negative for arthralgias and myalgias. Skin: Negative for color change, rash and wound. Neurological: Positive for weakness. Negative for dizziness, light-headedness and headaches. Social History Socioeconomic History Marital status: Spouse name: Not on file Number of children: Not on file Years of education: Not on file Highest education level: Not on file Occupational History Not on file Tobacco Use Smoking status: Every Day Packs/day: .25 Types: Cigarettes Smokeless tobacco: Current Tobacco comments: Quit smoking: trying to quit Substance and Sexual Activity Alcohol use: Not Currently Drug use: Yes Types: Marijuana Comment: Medical Marijuana and gummies Sexual activity: Defer Other Topics Concern Not on file Social History Narrative Not on file Social Determinants of Health Financial Resource Strain: Not on file Food Insecurity: Not on file Transportation Needs: Not on file Physical Activity: Not on file Stress: Not on file Social Connections: Not on file Intimate Partner Violence: Not on file Housing Stability: Not on file Past Medical History: Diagnosis Date Arthritis COPD exacerbation (HCC) 06/20/2022 Pneumonia 03/04/2019 Primary hypertension 06/24/2023 Family History Problem Relation Name Age of Onset No Known Problems Other No Known Problems Brother No Known Problems Maternal Grandfather No Known Problems Paternal Grandfather No Known Problems Sister No Known Problems Maternal Grandmother No Known Problems Paternal Grandmother Vitals: 08/02/23 1334 BP: 122/74 Pulse: (!) 115 Temp: 36.7 C (98.1 F) SpO2: 96% Weight: 56.7 kg (125 lb) Height: 1.6 m (5' 3 ) Wt Readings from Last 3 Encounters: 08/02/23 56.7 kg (125 lb) 07/19/23 59.2 kg (130 lb 9.6 oz) 06/24/23 63.9 kg (140 lb 14 oz) Physical Exam Vitals and nursing note reviewed. Constitutional: General: She is not in acute distress. Appearance: Normal appearance. She is not ill-appearing or toxic-appearing. Comments: NAD sitting in chair. Interactive, cooperative, conversant. Accompanying visitor HENT: Mouth/Throat: Mouth: Mucous membranes are moist. Pharynx: Oropharynx is clear. Eyes: Extraocular Movements: Extraocular movements intact. Conjunctiva/sclera: Conjunctivae normal. Pupils: Pupils are equal, round, and reactive to light. Cardiovascular: Rate and Rhythm: Normal rate and regular rhythm. Pulses: Normal pulses. Heart sounds: Normal heart sounds. Pulmonary: Effort: Pulmonary effort is normal. Breath sounds: Normal breath sounds. Abdominal: General: Abdomen is flat. There is no distension. Palpations: Abdomen is soft. Comments: Non-distended. LLQ tenderness to deeper palpation. No guarding or rigidity Skin: General: Skin is warm and dry. Neurological: Mental Status: She is alert and oriented to person, place, and time. Psychiatric: Mood and Affect: Mood normal. Behavior: Behavior normal. No results displayed because visit has over 200 results. Other Labs: Micro: No results for input(s): COVID19 in the last 72 hours. 06/28 C diff PCR: neg 06/28 GI PCR: neg Lines: N/A Radiography/Echo/Other: 06/23 CT abd/pelvis 1. Acute diverticulitis involving the the distal descending colon extending into the sigmoid colon.No focal fluid collection or evidence of perforation. 2. Moderate to severe mixed atherosclerotic plaque with infrarenal abdominal aortic aneurysm measuring 3.3 x 3.0 cm, previously 2.9 x 2.7 cm. Please see below recommendations. 3. Mild biliary ductal dilatation also seen on prior study and likely postsurgical. 4. Tiny joe of intraluminal air within the urinary bladder. This is nonspecific and could reflectrecent instrumentation or infection. Given proximity to sigmoid colon fistula could be considered though this is felt to be less likely. 06/27 CT abd/pelvis 1. Acute sigmoid diverticulitis. No pneumoperitoneum or fluid collection. Appearance is similar to prior exam from 06/23/2023. 2. Abdominal aortic aneurysm measuring 3 cm. 07/05 CT abd/pelvis Sigmoid diverticulitis again noted. There appears be a new 2.6 cm fluid collection containing air locules between sigmoid and rectum in the left pelvis as described. Inflammatory stranding has increased. Findings are favored to be due to an abscess. An inflamed, enlarged diverticulum is also possible though felt less likely. Consider short term follow up. Recommend colonoscopy after treatment to exclude any potential underlying lesions. Excessive colonic fecal burden which there is nonspecific though can be seen with constipation if in the appropriate clinical setting. Redemonstrated abdominal aortic aneurysm. Remainder of the exam has not significantly changed since prior exam. 07/24 CT abd/pelvis 1. Colonic diverticulosis with stable wall thickening of the sigmoid colon and residual stranding of the adjacent mesenteric fat, mildly improved from the prior exam. No pericolic fluid collection. 2. Mild aneurysmal dilatation of the abdominal aorta measuring up to 3.2 cm. Antimicrobials,Start/End Dates: Pip-Tazo: 06/22-07/03; 07/05- Amox-Clav: 07/03-07/05 Fluc: 06/24, 06/27 Impression: Intra-abdominal abscess Measuring 2.3 x 1.9 x 2.6cm Sigmoid diverticulitis Dysuria/urgency/frequency Leukocytosis- improving Antibiotic intolerances- Sulfa, levoflox Plan: Following patient for sigmoid diverticulitis + intra-abd fluid collection. No surgical intervention/ IR drainage at this time. Discussed options of switching to PO abx when ready for discharge. Patient refusing recommended Amox-Clav. She denies associated rashes/itching, SOB, or GI upset with this antibiotic indicating allergy/intolerance, but insists this antibiotic previously made her condition worse. Discussed development of intra- abdominal collection likely cause of worsening symptoms/ leukocytosis initially. Additionally, discussed alternative options for anaerobic coverage (Metronidazole) can be associated with nausea/vomiting/ GI upset and noted patient will need to abstain from EtOH while on this medication given risk for reaction. She is still declining Amox-Clav at this time. Plan to transition to Cefdinir 300mg PO q12h + Metronidazole 500mg PO q8h through 08/02/23 to complete 4 weeks total of antibiotics when ready for discharge. Plan to obtain CT scan prior to EOT to assess for resolution of abscess. ASSESSMENT/PLAN 1. Intra-abdominal abscess (CMS/HCC) (HCC) Assessment & Plan: Patient was to complete a 4 week course of Cefdinir + Metronidazole for intra- abd abscess in setting of diverticulitis. She reports she only took 10 days of abx outside the hospital due to intolerance. 07/[address] scan shows resolution of pericolic fluid collection. Plan to remain off antibiotics for now. 2. Sigmoid diverticulitis Assessment & Plan: See above 3. Antibiotic drug intolerance Assessment & Plan: Intolerance to Sulfa drugs and Levofloxacin. Reports GI upset, N/V ADDITIONAL PLAN NOTES Note: patient reports she has a colonoscopy consultation on 09/15/23 at [facility] on [address] Advised patient to seek care if worsening abdominal pain, diarrhea, nausea/vomiting, fever. Opportunity given for questions and all questions answered to the patient's satisfaction. Total time 35 minutes on this day of visit includes record and documentation review before and after visit including documentation and time not explicitly included on EMR time stamp for accounting for open encounter. Helen MIRANDA PA-C documented in this [facility]11-15-2023 Evaluation + Plan note* Assessment & Plan Note - Helen Covington PA-C - 08/02/2023 11:49 AM EST Associated Problem(s): Antibiotic drug intolerance Intolerance to Sulfa drugs and Levofloxacin. Reports GI upset, N/[id number] History of Present illness Narrative* Adria Lopez MD - 07/19/2023 9:00 AM EDT General Surgery History and Physical HPI: This is a 67 y/o F who presents to office for follow up on diverticulitis and recent hospitalization. She was admitted from 06/23 to 07/10. Patient diagnosed with sigmoid diverticulitis who had failed outpatient atbx. During hospitalization. CT showing uncomplicated diverticulitis without abscess. She was treated conservatively with atbx and bowel rest. She was discharged home on course of POatbx. Since discharge from hospital she reports abdominal campa has been improving. Noting less and less abdominal pain. She reports has good appetite has been eating well. Bowels moving appropriately. She reports some nausea but contributes that to atbx. Her main complaint is weakness and fatigue. She reports is not moving as much as she should at home. No fever/chills. She reports has GI appointment in August to discuss colonoscopy. Thoroughly reviewed the patient's medical history, family history, social history and review of systems with the patient today in the office. Please see medical record for pertinent positives. Impression /Treatment: Improving sigmoid diverticulitis. Reports fairly significant GI upset with oral antibiotics and at this point I told her it would be reasonable to hold if severe symptoms persist. Stressed importance of adequate nutrition and increasing activity. GI appointment scheduled for c olonoscopy evaluation. General Surgery follow up PRN. Patient counseled on risks, benefits, and alternatives of treatment plan at length while in the office today. Patient states an understanding andwillingness to proceed with plan. Past Medical History: Diagnosis Date Arthritis COPD exacerbation (HCC) 06/20/2022 Pneumonia 03/04/2019 Primary hypertension 06/24/2023 Past Surgical History: Procedure Laterality Date BACK SURGERY N/A 2017 lower back in middle MANDIBLE SURGERY Bilateral 1983 wires on both jaws now TONSILLECTOMY (HISTORICAL) Current Outpatient Medications Medication Sig Dispense Refill albuterol 108 (90 Base) MCG/ACT inhaler Inhale 2 puffs every 4 hours as needed for shortness of breath or wheezing. amLODIPine (Norvasc) 5 MG tablet Take 1 tablet by mouth daily. cefdinir (Omnicef) 300 MG capsule Take 1 capsule (300 mg) by mouth 2 times daily for 24 days. 48 capsule 0 Cdsbbthyhgu-Vlzsxzujc-Jlqhbt (Trelegy Ellipta) 100-62.5-25 MCG/ACT aerosol powder Inhale 1 puff daily. gabapentin (Neurontin) 300 MG capsule Take 300 mg by mouth 2 times daily as needed. metroNIDAZOLE (Flagyl) 500 MG tablet Take 1 tablet (500 mg) by mouth 3 times daily for 24 days. 72 tablet 0 senna-docusate sodium (Senokot-S) 8.6-50 MG tablet Take 2 tablets by mouth daily. 60 tablet 11 traZODone (Desyrel) 50 MG tablet Take 50 mg by mouth every evening. No current facility-administered medications for this visit. Allergies Allergen Reactions Codeine Levofloxacin Other reaction(s): GI Upset, U Sulfa Antibiotics Other reaction(s): Vomiting Review of Systems: Review of Systems Constitutional: Negative for appetite change, chills, fatigue, fever and unexpected weight change. Respiratory: Negative for cough, shortness of breath and wheezing. Cardiovascular: Negative for chest pain and palpitations. Gastrointestinal: Positive for abdominal pain and nausea. Negative for constipation, diarrhea, rectal pain and vomiting. Skin: Negative for rash and wound. Neurological: Negative for seizures and syncope. Hematological: Negative for adenopathy. Does not bruise/bleed easily. Physical Exam: BP (!) 157/113 Pulse (!) 111 Temp 36.2 C (97.2 F) (Temporal) Ht 5' 3 (1.6 m) Wt 130 lb 9.6oz (59.2 kg) LMP (LMP Unknown) BMI 23.13 kg/m Physical Exam Constitutional: Appearance: Normal appearance. HENT: Head: Normocephalic. Eyes: Pupils: Pupils are equal, round, and reactive to light. Cardiovascular: Rate and Rhythm: Normal rate and regular rhythm. Pulses: Normal pulses. Pulmonary: Effort: Pulmonary effort is normal. No respiratory distress. Breath sounds: Normal breath sounds. No rales. Abdominal: General: Bowel sounds are normal. Palpations: Abdomen is soft. There is no mass. Tenderness: There is no abdominal tenderness. Musculoskeletal: General: No swelling or tenderness. Cervical back: Normal range of motion. No tenderness. Lymphadenopathy: Cervical: No cervical adenopathy. Skin: General: Skin is warm and dry. Neurological: Mental Status: She is alert and oriented to person, place, and time. Psychiatric: Behavior: Behavior normal. No orders of the defined types were placed in this encounter. Follow Up: No follow-ups on file. Adria Lopez MD RB 07/19/2023 documented in this [facility]11-01-2023 History of Present illness Narrative* Adria Lopez MD - 07/19/2023 9:00 AM EDT General Surgery History and Physical HPI: This is a 67 y/o F who presents to office for follow up on diverticulitis and recent hospitalization. She was admitted from 06/23 to 07/10. Patient diagnosed with sigmoid diverticulitis who had failed outpatient atbx. During hospitalization. CT showing uncomplicated diverticulitis without abscess. She was treated conservatively with atbx and bowel rest. She was discharged home on course of POatbx. Since discharge from hospital she reports abdominal campa has been improving. Noting less and less abdominal pain. She reports has good appetite has been eating well. Bowels moving appropriately. She reports some nausea but contributes that to atbx. Her main complaint is weakness and fatigue. She reports is not moving as much as she should at home. No fever/chills. She reports has GI appointment in August to discuss colonoscopy. Also a long discussion with patient and her spouse present today regarding her overall mental health and feelings of depression and lack of motivation. Patientwas encouraged and reassured that her feelings and overall status at this time not unusual given her current disease process and recent extended hospital stay. Thoroughly reviewed the patient's medical history, family history, social history and review of systems with the patient today in the office. Please see medical record for pertinent positives. Impression /Treatment: Improving sigmoid diverticulitis. Reports fairly significant GI upset with oral antibiotics and at this point I told her it would be reasonable to hold if severe symptoms persist. Stressed importance of adequate nutrition and increasing activity. GI appointment scheduled for c olonoscopy evaluation. General Surgery follow up PRN. Patient counseled on risks, benefits, and alternatives of treatment plan at length while in the office today. Patient states an understanding andwillingness to proceed with plan. Past Medical History: Diagnosis Date Arthritis COPD exacerbation (HCC) 06/20/2022 Pneumonia 03/04/2019 Primary hypertension 06/24/2023 Past Surgical History: Procedure Laterality Date BACK SURGERY N/A 2017 lower back in middle MANDIBLE SURGERY Bilateral 1983 wires on both jaws now TONSILLECTOMY (HISTORICAL) Current Outpatient Medications Medication Sig Dispense Refill albuterol 108 (90 Base) MCG/ACT inhaler Inhale 2 puffs every 4 hours as needed for shortness of breath or wheezing. amLODIPine (Norvasc) 5 MG tablet Take 1 tablet by mouth daily. cefdinir (Omnicef) 300 MG capsule Take 1 capsule (300 mg) by mouth 2 times daily for 24 days. 48 capsule 0 Czqsmuxfwuh-Qcpqxxyvw-Tpezyq (Trelegy Ellipta) 100-62.5-25 MCG/ACT aerosol powder Inhale 1 puff daily. gabapentin (Neurontin) 300 MG capsule Take 300 mg by mouth 2 times daily as needed. metroNIDAZOLE (Flagyl) 500 MG tablet Take 1 tablet (500 mg) by mouth 3 times daily for 24 days. 72 tablet 0 senna-docusate sodium (Senokot-S) 8.6-50 MG tablet Take 2 tablets by mouth daily. 60 tablet 11 traZODone (Desyrel) 50 MG tablet Take 50 mg by mouth every evening. No current facility-administered medications for this visit. Allergies Allergen Reactions Codeine Levofloxacin Other reaction(s): GI Upset, U Sulfa Antibiotics Other reaction(s): Vomiting Review of Systems: Review of Systems Constitutional: Negative for appetite change, chills, fatigue, fever and unexpected weight change. Respiratory: Negative for cough, shortness of breath and wheezing. Cardiovascular: Negative for chest pain and palpitations. Gastrointestinal: Positive for abdominal pain and nausea. Negative for constipation, diarrhea, rectal pain and vomiting. Skin: Negative for rash and wound. Neurological: Negative for seizures and syncope. Hematological: Negative for adenopathy. Does not bruise/bleed easily. Physical Exam: BP (!) 157/113 Pulse (!) 111 Temp 36.2 C (97.2 F) (Temporal) Ht 5' 3 (1.6 m) Wt 130 lb 9.6oz (59.2 kg) LMP (LMP Unknown) BMI 23.13 kg/m Physical Exam Constitutional: Appearance: Normal appearance. HENT: Head: Normocephalic. Eyes: Pupils: Pupils are equal, round, and reactive to light. Cardiovascular: Rate and Rhythm: Normal rate and regular rhythm. Pulses: Normal pulses. Pulmonary: Effort: Pulmonary effort is normal. No respiratory distress. Breath sounds: Normal breath sounds. No rales. Abdominal: General: Bowel sounds are normal. Palpations: Abdomen is soft. There is no mass. Tenderness: There is no abdominal tenderness. Musculoskeletal: General: No swelling or tenderness. Cervical back: Normal range of motion. No tenderness. Lymphadenopathy: Cervical: No cervical adenopathy. Skin: General: Skin is warm and dry. Neurological: Mental Status: She is alert and oriented to person, place, and time. Psychiatric: Behavior: Behavior normal. No orders of the defined types were placed in this encounter. I spent over total time 30 minutes counseling and coordinating care and provided discussion regarding patient's diverticulitis, recent hospitalization, test results, depression anxiety and overall wellbeing and current plan and prognosis.. Adria Lopez MD RB 07/19/2023 documented in this [facility]10-25-2023 Telephone encounter Note* Telephone Encounter - Thelma Negron LPN - 07/12/2023 10:07 AM EDT Unable to contact patient X2 [id number] Miscellaneous Notes* Telephone Encounter - Thelma Negron LPN - 07/12/2023 10:07 AM EDT Unable to contact patient X2 * Telephone Encounter - Thelma Negron LPN - 07/11/2023 10:23 AM EDT S: Patient admitted to: [facility] 06/23/23 B: Discharged on : 07/10/23 A: Hospital follow up call initiated to discuss any medication changes, follow up appointments and discharge instructions: Diverticulitis R: No contact x 1 at : [phone] documented in this [facility]10-24-2023 Telephone encounter Note* Telephone Encounter - Thelma Negron LPN - 07/11/2023 10:23 AM EDT S: Patient admitted to: [facility] 06/23/23 B: Discharged on : 07/10/23 A: Hospital follow up call initiated to discuss any medication changes, follow up appointments and discharge instructions: Diverticulitis R: No contact x 1 at : [phone] [id number] History of Present illness Narrative* Magdalene Strong RN - 07/10/2023 1:44 PM EDT Homegoing instructions given to patient and her . Peripheral line discontinued. Patient willbe wheeled out of hospital. * Helen Covington PA-C - 07/10/2023 11:35 AM EDT Images from the original note were not included. [facility] - Infectious Diseases Advanced Practice Provider Progress Note Subjective: Following patient for sigmoid diverticulitis + intra-abd abscess. Notes reviewed. Patient reports feeling a little better overall. However, notes gas pains this morning. She reports initial abdominal pain is getting better as well as the nausea and diarrhea. She has been tolerating diet. Denies fever, chills, CP, SOB, N/V, and any urinary issues. No other new exacerbating or alleviating factors. Objective: Vitals: Patient Vitals for the past 24 hrs: BP Temp Temp src Pulse Resp SpO2 07/10/23 0725 127/80 36.7 C (98.1 F) Temporal 103 14 98 % 07/10/23 0225 135/66 36.4 C (97.6 F) Temporal 79 18 96 % 07/09/232058 131/79 36.7 C (98.1 F) Temporal 88 18 95 % Physical Exam: Physical Exam Constitutional: Appearance: Normal appearance. She is ill-appearing. Comments: NAD laying in bed. Interactive, cooperative, conversant. HENT: Head: Normocephalic and atraumatic. Right Ear: External ear normal. Left Ear: External ear normal. Nose: Nose normal. Mouth/Throat: Mouth: Mucous membranes are moist. Pharynx: Oropharynx is clear. Eyes: Extraocular Movements: Extraocular movements intact. Conjunctiva/sclera: Conjunctivae normal. Pupils: Pupils are equal, round, and reactive to light. Cardiovascular: Rate and Rhythm: Regular rhythm. Tachycardia present. Pulses: Normal pulses. Heart sounds: Normal heart sounds. No murmur heard. No friction rub. No gallop. Pulmonary: Effort: Pulmonary effort is normal. Breath sounds: Normal breath sounds. No wheezing, rhonchi or rales. Abdominal: Comments: Softly distended. Less tender compared to previous. Musculoskeletal: Right lower leg: No edema. Left lower leg: No edema. Skin: General: Skin is warm and dry. Neurological: General: No focal deficit present. Mental Status: She is alert and oriented to person, place, and time. Psychiatric: Mood and Affect: Mood normal. Behavior: Behavior normal. Labs: Recent Labs 07/08/2344907/09/2331607/10/23220 NA 133* 129* 134* K 3.2* 3.6 3.6 CL 102 102 99 CO2 26 25 29 BUN 10 9 6* CREATININE 0.54 0.56 0.59 GLUCOSE 80 119* 100 CALCIUM 7.5* 7.7* 8.4 Recent Labs 07/08/2344907/09/2331607/10/23220 WBC 5.8 5.5 5.1 HGB 11.9 10.2* 12.1 HCT 35.6 31.0* 36.7 PLT 326 326 356 LYMPHOPCT 24 17.7* 19.3* MONOPCT 16* 15.9* 12.3* BASOPCT 2 1.0 1.0 NEUTROABS -- 3.4 3.2 Micro: No results for input(s): COVID19 in the last 72 hours. 06/28 C diff PCR: neg 06/28 GI PCR: neg Lines: PIV Radiography/Echo/Other: 06/23 CT abd/pelvis 1. Acute diverticulitis involving the the distal descending colon extending into the sigmoid colon.No focal fluid collection or evidence of perforation. 2. Moderate to severe mixed atherosclerotic plaque with infrarenal abdominal aortic aneurysm measuring 3.3 x 3.0 cm, previously 2.9 x 2.7 cm. Please see below recommendations. 3. Mild biliary ductal dilatation also seen on prior study and likely postsurgical. 4. Tiny joe of intraluminal air within the urinary bladder. This is nonspecific and could reflectrecent instrumentation or infection. Given proximity to sigmoid colon fistula could be considered though this is felt to be less likely. 06/27 CT abd/pelvis 1. Acute sigmoid diverticulitis. No pneumoperitoneum or fluid collection. Appearance is similar to prior exam from 06/23/2023. 2. Abdominal aortic aneurysm measuring 3 cm. 07/05 CT abd/pelvis Sigmoid diverticulitis again noted. There appears be a new 2.6 cm fluid collection containing air locules between sigmoid and rectum in the left pelvis as described. Inflammatory stranding has increased. Findings are favored to be due to an abscess. An inflamed, enlarged diverticulum is also possible though felt less likely. Consider short term follow up. Recommend colonoscopy after treatment to exclude any potential underlying lesions. Excessive colonic fecal burden which there is nonspecific though can be seen with constipation if in the appropriate clinical setting. Redemonstrated abdominal aortic aneurysm. Remainder of the exam has not significantly changed since prior exam. Antimicrobials,Start/End Dates: Pip-Tazo: 06/22-07/03; 07/05- Amox-Clav: 07/03-07/05 Fluc: 06/24, 06/27 Impression: Intra-abdominal abscess Measuring 2.3 x 1.9 x 2.6cm Sigmoid diverticulitis Dysuria/urgency/frequency Leukocytosis- improving Antibiotic intolerances- Sulfa, levoflox Plan: Following patient for sigmoid diverticulitis + intra-abd fluid collection. No surgical intervention/ IR drainage at this time. Discussed options of switching to PO abx when ready for discharge. Patient refusing recommended Amox-Clav. She denies associated rashes/itching, SOB, or GI upset with this antibiotic indicating allergy/intolerance, but insists this antibiotic previously made her condition worse. Discussed development of intra- abdominal collection likely cause of worsening symptoms/ leukocytosis initially. Additionally, discussed alternative options for anaerobic coverage (Metronidazole) can be associated with nausea/vomiting/ GI upset and noted patient will need to abstain from EtOH while on this medication given risk for reaction. She is still declining Amox-Clav at this time. Plan to transition to Cefdinir 300mg PO q12h + Metronidazole 500mg PO q8h through 08/02/23 to complete 4 weeks total of antibiotics when ready for discharge. Plan to obtain CT scan prior to EOT to assess for resolution of abscess. Patient voiced understanding and agreement to this plan. Case and plan discussed with Dr. Matos Based on diagnoses and management, combination of acute and chronic problems, exacerbations and/or acuity, this visit should be considered to be of moderate complexity. Helen MIRANDA PA-C * Ryan Naik MD - 07/09/2023 2:17 PM EDT Images from the original note were not included. Hospitalist Progress Note 07/09/[id number]: Please page me ([phone]) for patient care issues. [phone]: Please page [facility] Hospitalist for any issues. Subjective: Admit Date: 06/23/2023 PCP: LEONID DEE MD Room#: B2-252/B2-252 A Interval History: States LLQ abdominal pain is getting better still. Pain not bad today. Said did have 6/10 pain earlier though and just got pain meds and right now is not so bad. Rates around 1-2/10. Appetite getting better as well. No NV currently. No fevers or chills currently. No chest pain or sob. Adult diet Regular; Low Fiber @GLMJ2SPYTEH@ 24HR INTAKE/OUTPUT: Intake/Output Summary (Last 24 hours) at 07/09/2023 1417 Last data filed at 07/09/2023 1314 Gross per 24 hour Intake 350 ml Output 200 ml Net 150 ml Past Medical History: Past Medical History: Diagnosis Date Arthritis COPD exacerbation (HCC) 06/20/2022 Pneumonia 03/04/2019 Primary hypertension 06/24/2023 LABS: CBC: Recent Labs 07/08/23 0450 07/09/23 0317 WBC 5.8 5.5 RBC 4.19 3.68* HGB 11.9 10.2* HCT 35.6 31.0* MCV 85.1 84.2 RDW 16.0* 15.8* PLT 326 326 BMP: Recent Labs 07/08/2344907/09/23316 NA 133* 129* K 3.2* 3.6 CL 102 102 CO2 26 25 BUN 10 9 CREATININE 0.54 0.56 GLUCOSE 80 119* CALCIUM 7.5* 7.7* ANIONGAP 5 2* LIVER PROFILE: No results for input(s): AST , ALT , BILITOT , ALKPHOS , PROT in the last 72 hours. No lab exists for component: LABALBU PT/INR: No results for input(s): PROTIME , INR in the last 72 hours. CARDIAC ENZYMES: No results for input(s): TROPONINI in the last 72 hours. Procalcitonin: No results found for: PROCAL COVID-19 PCR: No results for input(s): COVID19 in the last 72 hours. Objective: Vitals: BP 104/64 Pulse 76 Temp 36.5 C (97.7 F) (Temporal) Resp 16 Ht 5' 3 (1.6 m) Wt 140 lb 14 oz (63.9 kg) LMP (LMP Unknown) SpO2 93% BMI 24.95 kg/m Pulse Ox: SpO2 Av % Min: 93 % Max: 96 % Supplemental O2: General appearance: mild distress, appears stated age, HEENT: Eyes: No scleral icterus Oral: Tongue is semi-moist Cardiovascular: S1/S2 heard, RRR Respiratory: Clear to auscultation bilaterally Abdomen: Soft, Pain to palp of Left lower/mid abdominal quad but mild and not as bad as before, non-distended bowel sounds positive Musculoskeletal: No obvious deformities seen Skin: No visible rashes or lesions. Medications: amLODIPine, 5 mg, Oral, Daily docusate, 50 mg, Oral, BID enoxaparin, 40 mg, SubCUTAneous, Daily Wcpajqsazom-Gwughfdpx-Aeogyn, 1 puff, Inhalation, Daily hydrocortisone, , Topical, BID influenza, 0.5 mL, IntraMUSCular, Once piperacillin-tazobactam, 3,375 mg, IntraVENous, q8h polyethylene glycol (PEG) 3350, 17 g, Oral, Daily senna-docusate sodium, 2 tablet, Oral, Daily traZODone, 50 mg, Oral, qPM Assessment Acute uncomplicated diverticulitis with slow improvement - patient initially felt there's no improvement and states she felt worse but then on 06/29, she started turning around and improving. Ct repeated on 06/27 remains the same. Patient eventually changed to po prednisone with improvement on IV zosyn. She started getting worse again and WBC started climbing again and CT abd repeated on 07/05 itshowed worsening with possible abscess. Radiology called me and states it's in area that's hard to tell if it's inflammation vs abscess and also area is difficult to drain. Spoke with Dr. Lopez from surgery at that time and he recommends to continue IV antibx as he reviewed image and felt this is all inflammation. ID now consulted as well and patient was restarted on IV zosyn based on all this. Now WBC decreasing again back to normal and symptoms improving. I wonder if patient doesn't do well on PO augmentin?? Defer to ID. Hypokalemia - replaced Leukocytosis - resolved HTN Hyponatremia - resolved with IVF Anemia - H/H stable. Plan Continue IV zosyn as recommended per ID. Surgery has been following and states no acute surgical intervention and recommend same tx and has cleared for discharge. Continue to monitor for improvement.WBC downtrending and is normal. Check daily labs. Will need antibx regimen recommendations from ID as patient has failed augmentin twice already. Toxic drug monitoring/narrow therapeutic index drug monitoring if any: # Drug name : # Route administered : # Method of monitoring : Extended Emergency Contact Information Primary Emergency Contact: Deja Cha Mobile Relation: Spouse RYAN NAIK MD Division of Hospitalist Medicine Inpatient Medical Services[place] [place]: Epic chat * Fernando Brady APRN - SUPERVISOR [employer] - 07/09/2023 9:25 AM EDT GENERAL SURGERY Progress Note PATIENT NAME: Priscila Cha TODAY'S DATE: 07/09/2023 SUBJECTIVE: Follow up on diverticulitis. Patient seen resting comfortably in bed. Tolerating low fiber diet and majority of tray had been eaten. No N/V. No acute events overnight. Pain controlled Yes Other Complaints No Flatus/BM/or Ostomy function {Yes OBJECTIVE: VITALS: BP 104/64 Pulse 76 Temp 36.5 C (97.7 F) (Temporal) Resp 16 Ht 5' 3 (1.6 m) Wt 140 lb 14 oz (63.9 kg) LMP (LMP Unknown) SpO2 93% BMI 24.95 kg/m INTAKE/OUTPUT: I/O last 3 completed shifts: In: 350 (5.5 mL/kg) [P.O.:350] Out: - (0 mL/kg) Weight: 63.9 kg No intake/output data recorded. REVIEW OF SYSTEMS: Pertinent positives and negatives as per interval history section PHYSICAL EXAM: CONSTITUTIONAL: A&O x 3, LUNGS: Resp effort easy and unlabored, breath sounds normal CARDIOVASCULAR: RRR ABDOMEN: soft, non distended, mild tenderness LLQ MUSCULOSKELETAL: Normal range of motion NEUROLOGIC: Level of Alertness: alert PSYCHIATRIC: Speech is normal SKIN: Warm, dry, and intact Data: CBC: Recent Labs 07/08/230 07/09/23316 WBC 5.8 5.5 HGB 11.9 10.2* HCT 35.6 31.0* PLT 326 326 BMP: Recent Labs 07/08/2344907/09/23316 NA 133* 129* K 3.2* 3.6 CL 102 102 CO2 26 25 BUN 10 9 CREATININE 0.54 0.56 GLUCOSE 80 119* Hepatic: No results for input(s): AST , ALT , BILITOT , ALKPHOS in the last 72 hours. No lab exists for component: ALB ASSESSMENT AND PLAN: Ms. Cha is a 67 y.o. F presenting with LLQ abdominal pain -CT 06/23 demonstrates acute distal descending diverticulitis into sigmoid colon without fluid collection or perforation -CT 07/05 with sigmoid diverticulitis, new 2.6 cm fluid collection with air locules between sigmoidand rectum -Improving abdominal pain, and exam -IV Zosyn, ID consulted -Tolerating low fiber diet - Continue bowel regimen -GI following- recommend outpatient colonoscopy once inflammation subsides- patient scheduled in 2 weeks for appt -Medical mgmt per primary team Disposition: Patient with persistent diverticular inflammation/pain. Improved abdominal pain and symptoms. Surgical indications reviewed with patient and she defers all surgery at this time. Tolerating low fiber diet. Okay to discharge from surgical standpoint. Follow up in 2 weeks will need outpatient colonoscopy once inflammation subsides. Patient counseled on risks, benefits, and alternatives of treatment plan today. Patient states an understanding and willingness to proceed with plan. Fernando Brady APRN - SUPERVISOR [employer] * Ryan Naik MD - 07/08/2023 12:29 PM EDT Images from the original note were not included. Hospitalist Progress Note 07/08/[phone]: Please page me ([phone]) for patient care issues. [phone]: Please page [facility] Hospitalist for any issues. Subjective: Admit Date: 06/23/2023 PCP: LEONID DEE MD Room#: B2-252/B2-252 A Interval History: States LLQ abdominal pain is getting better again today. Said did have quite a bit of pain though and just got pain meds and right now is not so bad. Rates around 2/10. Appetite getting better as well. No NV currently. No fevers or chills currently. No chest pain or sob. Adult diet Regular; Low Fiber @[id number]@ 24HR INTAKE/OUTPUT: Intake/Output Summary (Last 24 hours) at 07/08/2023 1229 Last data filed at 07/08/2023 0848 Gross per 24 hour Intake 400 ml Output -- Net 400 ml Past Medical History: Past Medical History: Diagnosis Date Arthritis COPD exacerbation (HCC) 06/20/2022 Pneumonia 03/04/2019 Primary hypertension 06/24/2023 LABS: CBC: Recent Labs 07/06/23 0415 07/08/23 0450 WBC 9.7 5.8 RBC 3.83 4.19 HGB 11.3* 11.9 HCT 32.4* 35.6 MCV 84.8 85.1 RDW 15.5* 16.0* PLT 399 326 BMP: Recent Labs 07/06/23 0415 07/08/23 0450 NA 131* 133* K 3.9 3.2* CL 103 102 CO2 24 26 BUN 8 10 CREATININE 0.48* 0.54 GLUCOSE 88 80 CALCIUM 8.7 7.5* ANIONGAP 4 5 LIVER PROFILE: Recent Labs 07/06/23 0415 AST 23 ALT 12 BILITOT 0.4 ALKPHOS 68 PROT 6.6 PT/INR: No results for input(s): PROTIME , INR in the last 72 hours. CARDIAC ENZYMES: No results for input(s): TROPONINI in the last 72 hours. Procalcitonin: No results found for: PROCAL COVID-19 PCR: No results for input(s): COVID19 in the last 72 hours. Objective: Vitals: BP 131/74 Pulse 86 Temp 36.4 C (97.5 F) (Temporal) Resp 18 Ht 5' 3 (1.6 m) Wt 140 lb 14 oz (63.9 kg) LMP (LMP Unknown) SpO2 94% BMI 24.95 kg/m Pulse Ox: SpO2 Av.5 % Min: 94 % Max: 95 % Supplemental O2: General appearance: mild distress, appears stated age, HEENT: Eyes: No scleral icterus Oral: Tongue is semi-moist Cardiovascular: S1/S2 heard, RRR Respiratory: Clear to auscultation bilaterally Abdomen: Soft, Pain to palp of Left lower/mid abdominal quad, non-distended bowel sounds positive Musculoskeletal: No obvious deformities seen Skin: No visible rashes or lesions. Medications: amLODIPine, 5 mg, Oral, Daily docusate, 50 mg, Oral, BID enoxaparin, 40 mg, SubCUTAneous, Daily Lskfnwgelll-Zazozrjpr-Hubive, 1 puff, Inhalation, Daily hydrocortisone, , Topical, BID influenza, 0.5 mL, IntraMUSCular, Once piperacillin-tazobactam, 3,375 mg, IntraVENous, q8h traZODone, 50 mg, Oral, qPM Assessment Acute uncomplicated diverticulitis with slow improvement - patient initially felt there's no improvement and states she felt worse but then on 06/29, she started turning around and improving. Ct repeated on 06/27 remains the same. Patient eventually changed to po prednisone with improvement on IV zosyn. She started getting worse again and WBC started climbing again and CT abd repeated on 07/05 itshowed worsening with possible abscess. Radiology called me and states it's in area that's hard to tell if it's inflammation vs abscess and also area is difficult to drain. Spoke with Dr. Lopez from surgery at that time and he recommends to continue IV antibx as he reviewed image and felt this is all inflammation. ID now consulted as well and patient was restarted on IV zosyn based on all this. Now WBC decreasing again back to normal and symptoms improving. I wonder if patient doesn't do well on PO augmentin?? Defer to ID. Hypokalemia - replaced Leukocytosis - resolved HTN Hyponatremia - resolved with IVF Anemia - H/H stable. Plan Replace potassium. Continue IV zosyn as recommended per ID. Surgery has been following and states no acute surgical intervention and recommend same tx. Continue to monitor for improvement. WBC downtrending and is normal. Check daily labs. Toxic drug monitoring/narrow therapeutic index drug monitoring if any: # Drug name : # Route administered : # Method of monitoring : Extended Emergency Contact Information Primary Emergency Contact: Deja Cha Mobile Relation: Spouse RYAN NAIK MD Division of Hospitalist Medicine Inpatient Medical Services[place] [place]: Epic chat * Ivan Pacheco MD - 07/08/2023 9:37 AM EDT Attending Attestation [facility] - Surgery [facility] Physicians Surgery Patient Name: Priscila Cha Date: 07/08/23 Patient seen and examined. No acute events overnight. Tolerating diet. No BM. Denies nausea or emesis. Abdominal pain improving. Exam: Abdomen: Soft, nontender, nondistended. Assessment and Plan: 67 y.o. female with diverticulitis CT scan upon presentation revealed uncomplicated diverticulitis. Patient initially progressed and then had worsening pain with CT scan demonstrating large fecal burden and possible small microperforation. Antibiotic regimen altered and patient has subsequently improved. Trial low fiber diet Initiate bowel regimen Surgery will follow with serial exams I personally supervised my SPECIAL EFFECTS TECHNICIAN in the evaluation and management of Priscila Cha in the developmentof a treatment plan for this patient. I personally interviewed the patient and performed an individual physical examination. In addition, I discussed the patient's condition and treatment options with them. I have also reviewed and agree with the past medical, family and social history and care plan unless otherwise noted. All of the patient's questions were answered. low medical decision making and case complexity with 25 minute total care time including chart review, care coordination and face to face encounter was spent discussing/counseling the patient regarding the care plan for this patient. The patient was seen and examined independently and relevant datareviewed by myself. A full chart review was performed. Ivan Pacheco MD General Surgery Pager #[phone] Perfect Serve: Ivan Pacheco 4:14 PM 07/08/2023 GENERAL SURGERY Progress Note PATIENT NAME: Priscila Cha TODAY'S DATE: 07/08/2023 SUBJECTIVE: General Surgery follow up on abdominal pain. Slightly improved today. Positive BM. No N/V. Tolerating FLD. No acute events overnight Pain controlled Yes Other Complaints No Flatus/BM/or Ostomy function {Yes OBJECTIVE: VITALS: BP 131/74 Pulse 86 Temp 36.4 C (97.5 F) (Temporal) Resp 18 Ht 5' 3 (1.6 m) Wt 140 lb 14 oz (63.9 kg) LMP (LMP Unknown) SpO2 94% BMI 24.95 kg/m INTAKE/OUTPUT: I/O last 3 completed shifts: In: 820 (12.8 mL/kg) [P.O.:720; IV Piggyback:100] Out: - (0 mL/kg) Weight: 63.9 kg No intake/output data recorded. REVIEW OF SYSTEMS: Pertinent positives and negatives as per interval history section PHYSICAL EXAM: CONSTITUTIONAL: A&O x 3, LUNGS: Resp effort easy and unlabored, breath sounds normal CARDIOVASCULAR: RRR ABDOMEN: soft, non distended, tenderness LLQ abdomen MUSCULOSKELETAL: Normal range of motion NEUROLOGIC: Level of Alertness: alert PSYCHIATRIC: Speech is normal SKIN: Warm, dry, and intact Data: CBC: Recent Labs 07/06/2341407/08/23 0450 WBC 9.7 5.8 HGB 11.3* 11.9 HCT 32.4* 35.6 PLT 399 326 BMP: Recent Labs 07/06/235 07/08/23 0450 NA 131* 133* K 3.9 3.2* CL 103 102 CO2 24 26 BUN 8 10 CREATININE 0.48* 0.54 GLUCOSE 88 80 Hepatic: Recent Labs 07/06/23414 AST 23 ALT 12 BILITOT 0.4 ALKPHOS 68 ASSESSMENT AND PLAN: Ms. Cha is a 67 y.o. F presenting with LLQ abdominal pain -CT 06/23 demonstrates acute distal descending diverticulitis into sigmoid colon without fluid collection or perforation -CT 07/05 with sigmoid diverticulitis, new 2.6 cm fluid collection with air locules between sigmoidand rectum -Improving abdominal pain, and exam -IV Zosyn, ID consulted -Tolerating FLD advance to low fiber diet. -GI following- recommend outpatient colonoscopy once inflammation subsides- patient scheduled in 2 weeks for appt -Medical mgmt per primary team Disposition: Patient with persistent diverticular inflammation/pain. Improved abdominal pain and symptoms. Surgical indications reviewed with patient and she defers all surgery at this time. Patient should keep her established GI appointment in coming weeks. No surgical intervention anticipated. Continues to improve will trial low fiber diet. Patient counseled on risks, benefits, and alternatives of treatment plan today. Patient states an understanding and willingness to proceed with plan. Fernando Brady, ENGRAVINGS POLISHER - SUPERVISOR P[employer]ED METAL * Marija Gillis, RD - 07/07/2023 5:25 PM EDT Nutrition Assessment Type and Reason for Visit: Reassess Nutrition Recommendations/Plan: Continue to advance diet as tolerated. Monitor receptiveness to ONS- pt previously declined. May trial [employer]? Obtain current weight pt with continued inadequate intakes. Pt off unit at time of RD visit. Monitor %PO intakes, PO tolerance/GI function, labs, overall nutritional status. Malnutrition Assessment: Malnutrition Status: Moderate malnutrition Context: Acute Illness Findings of the 6 clinical characteristics of malnutrition: Energy Intake: 50% or less of estimated energy requirements for 5 or more days Weight Loss: Unable to assess Body Fat Loss: Unable to assess Muscle Mass Loss: Moderate muscle mass loss Temples (temporalis), Clavicles (pectoralis & deltoids) Fluid Accumulation: No significant fluid accumulation [employer] Strength: Not Performed Nutrition Assessment: Pt remains admitted with sigmoid diverticulitis, with possible small perforation. Currently no plans for surgical intervention. Pt tolerating FLD today. Pain has improved. Pt adamant about not receiving any ONS and states that they make her sick. Pt off unit at time of RD visit. Unable to obtain current weight. Estimated Daily Nutrient Needs: Energy Requirements Based On: Kcal/kg Weight Used for Energy Requirements: [place] Weight for Energy Calculation (kg): 52 kg Total Energy Requirements (kcals/day): 3003-2544 kcals (28-32 kcals/kg) Weight Used for Protein Requirements: [place] Weight in Kg Used for Protein Requirements: 52 kg Estimated Total Protein (g/day): 62-68 (1.2-1.3g/kg) Estimated Daily Total Fluid (ml/day): 1560 ml/day or per MD Nutrition Related Findings: Meka 21; +BS; diarrhea 07/03; Na 131 Wound Type: None Current Nutrition Therapies: Adult diet Full liquid Current Oral Intake Average Meal Intake: 26-50% Average Supplements Intake: Refusing to take, None Ordered Anthropometric Measures: Height: 160 cm (5' 3 ) Current Body Weight: 63.9 kg (140 lb 14 oz) Weight Source: Bed Scale Admission Body Weight: 63.9 kg (140 lb 14 oz) (bed) Usual Body Weight: 65.3 kg (144 lb) (144# 8; 140.8# 03/01/23; 144# 02/06/23; 142.9# 06/19/22) % Weight Change (Calculated): -2.2 [place] Body Weight (lbs) (Calculated): 115 lbs [place] Body Weight (Kg) (Calculated): 52 kg % [place] Body Weight (Calculated): 122.5 % BMI (kg/m2) (Calculated): 25 Weight Adjustment For: No Adjustment BMI Categories: Overweight (BMI 25.0-29.9) Nutrition Diagnosis: Altered GI function related to acute injury/trauma, other (comment) (Diverticulitis) as evidenced by diarrhea, GI abnormality, nausea Moderate malnutrition, In context of acute illness or injury related to inadequate protein-energy intake as evidenced by moderate muscle loss (PO < 50% estimated needs for > 5 days.) Nutrition Interventions: Nutrition Education/Counseling: No recommendation at this time Coordination of Nutrition Care: Continue to monitor while inpatient Plan of Care discussed with: pt Goals: Previous Goal Met: (slight progress) Goals: PO intake 50% or greater, by next RD assessment Specify Other Goals: Altered GI symptoms (diarrhea) will improve Nutrition Monitoring and Evaluation: Behavioral-Environmental Outcomes: None Identified Food/Nutrient Intake Outcomes: Diet Advancement/Tolerance, Food and Nutrient Intake Physical Signs/Symptoms Outcomes: Biochemical Data, GI Status, Nausea or Vomiting, Diarrhea, Constipation, Fluid Status or Edema, Hemodynamic Status, Nutrition Focused Physical Findings, Skin, Weight Discharge Planning: Too soon to determine Marija Gillis RD Contact: [phone] * Helen Covington PA-C - 07/07/2023 4:45 PM EDT Images from the original note were not included. [facility] - Infectious Diseases Advanced Practice Provider Progress Note Subjective: Following patient for sigmoid diverticulitis + intra-abd abscess. Notes reviewed. Patient reports still feeling very ill with lots of abdominal pain, associated nausea. Report diarrhea has gotten better; states she had a lot of urgency and often incontinence that has also improved. Tolerating diet so far. Reports still having urinary urgency with minimal urine output, but no dysuria. Additionally, patient reports she was very out of it yesterday. States she was not remembering events, visitors, phonecalls and slept most of the day. Denies fever, chills, CP, SOB. No other new exacerbating or alleviating factors. Leukocytosis downtrending (11.5 -> 13.6 -> 9.7) Objective: Vitals: Patient Vitals for the past 24 hrs: BP Temp Temp src Pulse Resp SpO2 07/07/23 0802 112/58 37.2 C (98.9 F) Temporal 94 20 93 % 07/07/23 0424 -- 36.3 C (97.3 F) Temporal -- -- -- 07/06/23 2110 105/71 (!) 38.1 C (100.5 F) Temporal (!) 120 20 92 % Physical Exam: Physical Exam Constitutional: Appearance: Normal appearance. She is ill-appearing. Comments: NAD laying in bed. Interactive, cooperative, conversant. Appears uncomfortable HENT: Head: Normocephalic and atraumatic. Right Ear: External ear normal. Left Ear: External ear normal. Nose: Nose normal. Mouth/Throat: Mouth: Mucous membranes are moist. Pharynx: Oropharynx is clear. Eyes: Extraocular Movements: Extraocular movements intact. Conjunctiva/sclera: Conjunctivae normal. Pupils: Pupils are equal, round, and reactive to light. Cardiovascular: Rate and Rhythm: Regular rhythm. Tachycardia present. Pulses: Normal pulses. Heart sounds: Normal heart sounds. No murmur heard. No friction rub. No gallop. Pulmonary: Effort: Pulmonary effort is normal. Breath sounds: Normal breath sounds. No wheezing, rhonchi or rales. Abdominal: Comments: Abdomen soft. Diffuse tenderness. Musculoskeletal: Right lower leg: No edema. Left lower leg: No edema. Skin: General: Skin is warm and dry. Neurological: General: No focal deficit present. Mental Status: She is alert and oriented to person, place, and time. Psychiatric: Mood and Affect: Mood normal. Behavior: Behavior normal. Labs: Recent Labs 07/05/234707/06/23414 NA 134* 131* K 3.3* 3.9 CL 102 103 CO2 27 24 BUN 10 8 CREATININE 0.52 0.48* GLUCOSE 119* 88 CALCIUM 9.0 8.7 PROT 7.6 6.6 BILITOT 0.6 0.4 ALKPHOS 82 68 AST 31 23 ALT 14 12 Recent Labs 07/05/234707/06/23414 WBC 13.6* 9.7 HGB 12.3 11.3* HCT 38.1 32.4* PLT 460* 399 Micro: No results for input(s): COVID19 in the last 72 hours. 06/28 C diff PCR: neg 06/28 GI PCR: neg Lines: PIV Radiography/Echo/Other: 06/23 CT abd/pelvis 1. Acute diverticulitis involving the the distal descending colon extending into the sigmoid colon.No focal fluid collection or evidence of perforation. 2. Moderate to severe mixed atherosclerotic plaque with infrarenal abdominal aortic aneurysm measuring 3.3 x 3.0 cm, previously 2.9 x 2.7 cm. Please see below recommendations. 3. Mild biliary ductal dilatation also seen on prior study and likely postsurgical. 4. Tiny joe of intraluminal air within the urinary bladder. This is nonspecific and could reflectrecent instrumentation or infection. Given proximity to sigmoid colon fistula could be considered though this is felt to be less likely. 06/27 CT abd/pelvis 1. Acute sigmoid diverticulitis. No pneumoperitoneum or fluid collection. Appearance is similar to prior exam from 06/23/2023. 2. Abdominal aortic aneurysm measuring 3 cm. 07/05 CT abd/pelvis Sigmoid diverticulitis again noted. There appears be a new 2.6 cm fluid collection containing air locules between sigmoid and rectum in the left pelvis as described. Inflammatory stranding has increased. Findings are favored to be due to an abscess. An inflamed, enlarged diverticulum is also possible though felt less likely. Consider short term follow up. Recommend colonoscopy after treatment to exclude any potential underlying lesions. Excessive colonic fecal burden which there is nonspecific though can be seen with constipation if in the appropriate clinical setting. Redemonstrated abdominal aortic aneurysm. Remainder of the exam has not significantly changed since prior exam. Antimicrobials,Start/End Dates: Pip-Tazo: 06/22-07/03; 07/05- Amox-Clav: 07/03-07/05 Fluc: 06/24, 06/27 Impression: Intra-abdominal abscess Measuring 2.3 x 1.9 x 2.6cm Sigmoid diverticulitis Dysuria/urgency/frequency Leukocytosis- improving Antibiotic intolerances- Sulfa, levoflox Plan: Following patient for sigmoid diverticulitis with new intra-abd fluid collection. No surgical intervention at this time. IR unable to safely drain fluid collection. Plan to continue Pip-Tazo for now. Anticipate patient will be able to transition to Amox-Clav 875-125mg PO q12h when ready. However, will wait to transition pending improvement in symptoms and toleration of diet. Patient to complete 4 weeks total through 08/02/23. Plan to obtain CT scan prior to EOT to assess for resolution of abscess. Patient with urinary urgency/frequency. UA unremarkable; low suspicion UTI cause for symptoms. Note, one recorded isolated fever of 100.5F. If patient with new fever, recommend obtaining 2 sets of blood cultures. ID will continue to follow. Case and plan discussed with Dr. Matos Based on diagnoses and management, combination of acute and chronic problems, exacerbations and/or acuity, this visit should be considered to be of high complexity. Helen MIRANDA PA-C * Ivan Pacheco MD - 07/07/2023 12:34 PM EDT Images from the original note were not included. Attending Attestation [facility] Medical [facility] - Surgery [facility] Physicians Surgery Patient Name: Priscila Cha Date: 07/07/23 Patient seen and examined. Abdominal pain improving. Tolerating full liquid tray at bedside on evaluation. Denies nausea or emesis. Exam: Abdomen: Soft, nontender, nondistended. Assessment and Plan: 67 y.o. female with diverticulitis Labs, notes and imaging reviewed CT scan upon presentation revealed uncomplicated diverticulitis. Patient initially progressed and then had worsening pain with CT scan demonstrating large fecal burden and possible small microperforation. Antibiotic regimen altered and patient has subsequently improved. Trial full liquid diet Monitor bowel function, discussed possible bowel regimen if bowel movements continue to be irregular Surgery will follow with serial exams Discussed potential need for surgical intervention if her condition does not improve with antibiotics and that this would include an ostomy most likely. However, the patient appears to be progressingappropriately at present I personally supervised my SPECIAL EFFECTS TECHNICIAN in the evaluation and management of Priscila Cha in the developmentof a treatment plan for this patient. I personally interviewed the patient and performed an individual physical examination. In addition, I discussed the patient's condition and treatment options with them. I have also reviewed and agree with the past medical, family and social history and care plan unless otherwise noted. All of the patient's questions were answered. moderate medical decision making and case complexity with 35 minute total care time including chartreview, care coordination and face to face encounter was spent discussing/counseling the patient regarding the care plan for this patient. The patient was seen and examined independently and relevantdata reviewed by myself. A full chart review was performed. Ivan Pacheco MD General Surgery Pager #[phone] Perfect Serve: Ivan Pacheco 12:56 PM 07/07/2023 GENERAL SURGERY Progress Note PATIENT NAME: Priscila Cha TODAY'S DATE: 07/07/2023 SUBJECTIVE: General Surgery follow up on diverticulitis. Improving abdominal pain but still some left side of abdomen. No N/V overnight. Positive BM yesterday. Pain controlled Yes Other Complaints No Flatus/BM/or Ostomy function {Yes OBJECTIVE: VITALS: BP 112/58 (BP Location: Right arm, Patient Position: Lying) Pulse 94 Temp 37.2 C (98.9 F) (Temporal) Resp 20 Ht 5' 3 (1.6 m) Wt 140 lb 14 oz (63.9 kg) LMP (LMP Unknown) SpO2 93% BMI 24.95 kg/m INTAKE/OUTPUT: I/O last 3 completed shifts: In: 472 (7.4 mL/kg) [P.O.:320; IV Piggyback:152] Out: - (0 mL/kg) Weight: 63.9 kg I/O this shift: In: 200 [P.O.:200] Out: - REVIEW OF SYSTEMS: Pertinent positives and negatives as per interval history section PHYSICAL EXAM: CONSTITUTIONAL: A&O x 3, LUNGS: Resp effort easy and unlabored, breath sounds normal CARDIOVASCULAR: RRR ABDOMEN: soft, non distended, mildly tender LLQ abdomen. MUSCULOSKELETAL: Normal range of motion NEUROLOGIC: Level of Alertness: alert PSYCHIATRIC: Speech is normal SKIN: Warm, dry, and intact Data: CBC: Recent Labs 07/05/234707/06/23414 WBC 13.6* 9.7 HGB 12.3 11.3* HCT 38.1 32.4* PLT 460* 399 BMP: Recent Labs 07/05/234707/06/23414 NA 134* 131* K 3.3* 3.9 CL 102 103 CO2 27 24 BUN 10 8 CREATININE 0.52 0.48* GLUCOSE 119* 88 Hepatic: Recent Labs 07/05/234707/06/23414 AST 31 23 ALT 14 12 BILITOT 0.6 0.4 ALKPHOS 82 68 ASSESSMENT AND PLAN: Ms. Cha is a 67 y.o. F presenting with LLQ abdominal pain -CT 06/23 demonstrates acute distal descending diverticulitis into sigmoid colon without fluid collection or perforation -CT 07/05 with sigmoid diverticulitis, new 2.6 cm fluid collection with air locules between sigmoidand rectum -Improving abdominal pain, and exam -IV Zosyn, ID consulted -Tolerating CLD advance to FLD. -GI following- recommend outpatient colonoscopy once inflammation subsides- patient scheduled in 2 weeks for appt -Medical mgmt per primary team Disposition: Patient with persistent diverticular inflammation/pain. Improved abdominal pain and symptoms. Surgical indications reviewed with patient and she defers all surgery at this time. Patient should keep her established GI appointment in coming weeks. No surgical intervention anticipated. Patient counseled on risks, benefits, and alternatives of treatment plan today. Patient states an understanding and willingness to proceed with plan. Fernando Brady APRN - SUPERVISOR [employer] * Ryan Naik MD - 07/07/2023 10:51 AM EDT Hospitalist Progress Note 07/07/[id number]: Please page me ([phone]) for patient care issues. [phone]: Please page [facility] Hospitalist for any issues. Subjective: Admit Date: 06/23/2023 PCP: LEONID DEE MD Room#: B2-252/B2-252 A Interval History: States LLQ abdominal pain is getting better again today. Said did have a lot of pain earlier still and just got pain meds and right now is not so bad. Rates around 2/10. Appetite isbetter and she would like to eat soup as she is sick of jean carloso. No NV currently. No fevers or chillscurrently. Also no diarrhea this am after stopping miralax yesterday. No chest pain or sob. Adult diet Clear liquid @RUZX6BMJWMK@ 24HR INTAKE/OUTPUT: Intake/Output Summary (Last 24 hours) at 07/07/2023 1051 Last data filed at 07/07/2023 1000 Gross per 24 hour Intake 620 ml Output -- Net 620 ml Past Medical History: Past Medical History: Diagnosis Date Arthritis COPD exacerbation (HCC) 06/20/2022 Pneumonia 03/04/2019 Primary hypertension 06/24/2023 LABS: CBC: Recent Labs 07/05/234707/06/23414 WBC 13.6* 9.7 RBC 4.43 3.83 HGB 12.3 11.3* HCT 38.1 32.4* MCV 86.0 84.8 RDW 15.6* 15.5* PLT 460* 399 BMP: Recent Labs 07/05/234707/06/23414 NA 134* 131* K 3.3* 3.9 CL 102 103 CO2 27 24 BUN 10 8 CREATININE 0.52 0.48* GLUCOSE 119* 88 CALCIUM 9.0 8.7 ANIONGAP 6 4 LIVER PROFILE: Recent Labs 07/05/234707/06/23414 AST 31 23 ALT 14 12 BILITOT 0.6 0.4 ALKPHOS 82 68 PROT 7.6 6.6 PT/INR: No results for input(s): PROTIME , INR in the last 72 hours. CARDIAC ENZYMES: No results for input(s): TROPONINI in the last 72 hours. Procalcitonin: No results found for: PROCAL COVID-19 PCR: No results for input(s): COVID19 in the last 72 hours. Objective: Vitals: BP 112/58 (BP Location: Right arm, Patient Position: Lying) Pulse 94 Temp 37.2 C (98.9 F) (Temporal) Resp 20 Ht 5' 3 (1.6 m) Wt 140 lb 14 oz (63.9 kg) LMP (LMP Unknown) SpO2 93% BMI 24.95 kg/m Pulse Ox: SpO2 Av.5 % Min: 92 % Max: 93 % Supplemental O2: General appearance: mild distress, appears stated age, HEENT: Eyes: No scleral icterus Oral: Tongue is semi-moist Cardiovascular: S1/S2 heard, RRR Respiratory: Clear to auscultation bilaterally Abdomen: Soft, Pain to palp of Left lower/mid abdominal quad, non-distended bowel sounds positive Musculoskeletal: No obvious deformities seen Skin: No visible rashes or lesions. Medications: amLODIPine, 5 mg, Oral, Daily docusate, 50 mg, Oral, BID enoxaparin, 40 mg, SubCUTAneous, Daily Kluzmwkjyuk-Uczixuqko-Ztnlic, 1 puff, Inhalation, Daily hydrocortisone, , Topical, BID influenza, 0.5 mL, IntraMUSCular, Once piperacillin-tazobactam, 3,375 mg, IntraVENous, q8h traZODone, 50 mg, Oral, qPM Assessment Acute uncomplicated diverticulitis with slow improvement - patient initially felt there's no improvement and states she felt worse but then on 06/29, she started turning around and improving. Ct repeated on 06/27 remains the same. Patient eventually changed to po prednisone with improvement on IV zosyn. She started getting worse again and WBC started climbing again and CT abd repeated on 07/05 itshowed worsening with possible abscess. Radiology called me and states it's in area that's hard to tell if it's inflammation vs abscess and also area is difficult to drain. Spoke with Dr. Lopez from surgery at that time and he recommends to continue IV antibx as he reviewed image and felt this is all inflammation. ID now consulted as well and patient was restarted on IV zosyn based on all this. Now WBC decreasing again back to normal and symptoms improving. I wonder if patient doesn't do well on PO augmentin?? Defer to ID. Hypokalemia - replaced Leukocytosis - resolved HTN Hyponatremia - resolved with IVF Anemia - H/H stable. Plan Advance diet to full liquids. Continue IV zosyn as recommended per ID. Surgery has been following and states no acute surgical intervention and recommend same tx. Continue to monitor for improvement.Check daily labs. Toxic drug monitoring/narrow therapeutic index drug monitoring if any: # Drug name : # Route administered : # Method of monitoring : Extended Emergency Contact Information Primary Emergency Contact: Deja Cha Mobile Relation: Spouse RYAN NAIK MD Division of Hospitalist Medicine [facility]patient Medical Services[place] [place]: Epic chat * Ryan Naik MD - 07/06/2023 1:41 PM EDT Images from the original note were not included. Hospitalist Progress Note 07/06/[id number]: Please page [place] ([phone]) for patient care issues. [phone]: Please page [facility] Hospitalist for any issues. Subjective: Admit Date: 06/23/2023 PCP: LEONID DEE MD Room#: -252/[facility] A Interval History: States LLQ abdominal pain was very bad last night. Said it's better now after pain med. Still not good appetite. No NV currently. No fevers or chills currently. Complaining of diarrhea. No chest pain or sob. Adult diet Clear liquid @[id number]@ 24HR INTAKE/OUTPUT: Intake/Output Summary (Last 24 hours) at 07/06/2023 1341 Last data filed at 07/06/2023 0408 Gross per 24 hour Intake 52 ml Output -- Net 52 ml Past Medical History: Past Medical History: Diagnosis Date Arthritis COPD exacerbation (HCC) 06/20/2022 Pneumonia 03/04/2019 Primary hypertension 06/24/2023 LABS: CBC: Recent Labs 07/04/2324307/05/234707/06/23414 WBC 11.5* 13.6* 9.7 RBC 4.07 4.43 3.83 HGB 11.3* 12.3 11.3* HCT 34.4* 38.1 32.4* MCV 84.5 86.0 84.8 RDW 15.9* 15.6* 15.5* PLT 444* 460* 399 BMP: Recent Labs 10/17/23 0244 10/18/23 0048 10/19/23 0415 NA 134* 134* 131* K 3.5 3.3* 3.9 CL 105 102 103 CO2 27 27 24 BUN 10 10 8 CREATININE 0.63 0.52 0.48* GLUCOSE 99 119* 88 CALCIUM 9.2 9.0 8.7 ANIONGAP 3 6 4 LIVER PROFILE: Recent Labs 07/04/23 0244 07/05/23 0048 07/06/23 0415 AST 21 31 23 ALT 10 14 12 BILITOT 0.5 0.6 0.4 ALKPHOS 60 82 68 PROT 6.7 7.6 6.6 PT/INR: No results for input(s): PROTIME , INR in the last 72 hours. CARDIAC ENZYMES: No results for input(s): TROPONINI in the last 72 hours. Procalcitonin: No results found for: PROCAL COVID-19 PCR: No results for input(s): COVID19 in the last 72 hours. Objective: Vitals: BP 121/71 (BP Location: Right arm, Patient Position: Lying) Pulse 99 Temp 36.6 C (97.8 F) (Temporal) Resp 14 Ht 5' 3 (1.6 m) Wt 140 lb 14 oz (63.9 kg) LMP (LMP Unknown) SpO2 94% BMI 24.95 kg/m Pulse Ox: SpO2 Av % Min: 94 % Max: 96 % Supplemental O2: General appearance: mild distress, appears stated age, HEENT: Eyes: No scleral icterus Oral: Tongue is semi-moist Cardiovascular: S1/S2 heard, RRR Respiratory: Clear to auscultation bilaterally Abdomen: Soft, Pain to palp of Left lower/mid abdominal quad, non-distended bowel sounds positive Musculoskeletal: No obvious deformities seen Skin: No visible rashes or lesions. Medications: amLODIPine, 5 mg, Oral, Daily docusate, 50 mg, Oral, BID enoxaparin, 40 mg, SubCUTAneous, Daily Nsenglmtzaq-Kduruhwwf-Avworo, 1 puff, Inhalation, Daily hydrocortisone, , Topical, BID influenza, 0.5 mL, IntraMUSCular, Once piperacillin-tazobactam, 3,375 mg, IntraVENous, q8h polyethylene glycol (PEG) 3350, 17 g, Oral, Daily traZODone, 50 mg, Oral, qPM Assessment Acute uncomplicated diverticulitis with slow improvement - patient initially felt there's no improvement and states she felt worse but then on 06/29, she started turning around and improving. Ct repeated on 06/27 remains the same. Patient eventually changed to po prednisone with improvement on IV zosyn. She started getting worse again and WBC started climbing again and CT abd repeated on 07/05 itshowed worsening with possible abscess. Radiology called me and states it's in area that's hard to tell if it's inflammation vs abscess and also area is difficult to drain. Spoke with Dr. Lopez from surgery at that time and he recommends to continue IV antibx as he reviewed image and felt this is all inflammation. ID now consulted as well and patient was restarted on IV zosyn based on all this. Now WBC decreasing again back to normal and symptoms improving. I wonder if patient doesn't do well on PO augmentin?? Defer to ID. Hypokalemia - replaced Leukocytosis - resolved HTN Hyponatremia - resolved with IVF Anemia - H/H stable. Plan Stop daily miralax due to diarrhea. Continue IV zosyn. ID consulted and following as well. Check daily labs. Surgery has been following and states no acute surgical intervention and recommend same tx. Toxic drug monitoring/narrow therapeutic index drug monitoring if any: # Drug name : # Route administered : # Method of monitoring : Extended Emergency Contact Information Primary Emergency Contact: Deja Cha Mobile Relation: Spouse RYAN NAIK MD Division of Hospitalist Medicine Inpatient Medical Services[facility] [place]: Epic chat * Adria Lopez MD - 07/06/2023 11:31 AM EDT Images from the original note were not included. [facility] - Surgery [facility] Physicians Surgery Patient Name: Priscila Cha Date: 07/06/2023 Patient seen and examined by myself and I agree with NORA note below Resting in bed and appears comfortable Pain about the same Abdomen soft tender suprapubic region Labs and imaging reviewed Assessment /Plan: Sigmoid diverticulitis Constipation No acute surgical indication Recommend resume clears and advance to low fiber as tolerated Bowel regimen for her significant constipation Antibiotics per infectious disease Okay to DC home from surgical standpoint once tolerating p.o. Patient counseled on risks,benefits, and alternatives of treatement plan at length. Patient states an understanding and willingness to proceed with plan. I personally supervised my NORA and/or resident in the evaluation and management of Priscila Cha in the development of a treatment plan for this patient. I personally interviewed the patient and performed an individual physical examination. In addition, I discussed the patient's condition and treatment options with them. I have also reviewed and agree with the past medical, family and social history and care plan unless otherwise noted. All of the patient's questions were answered. This case represents moderate level care including chart review, care coordination and face to faceencounter was spent discussing/counseling the patient regarding the care plan for this patient. Thepatient was seen and examined independently and relevant data reviewed by myself. A full chart review was performed. Adria Lopez MD [facility] General Surgery 3:03 PM 07/06/2023 GENERAL SURGERY Progress Note PATIENT NAME: Priscila Cha TODAY'S DATE: 07/06/2023 SUBJECTIVE: Follow up on diverticulitis. Patient seen this morning resting in bed, at bedside. She endorses many episodes of diarrhea since drinking PO contrast. Patient notes continued suprapubic pain that limited her sleep last night. She denies fever but is chilled this morning. Patient denies nausea/vomiting and is asking for tea to drink. She does not want to proceed with surgery unless absolutely necessary. Pain controlled Yes Other Complaints No Flatus/BM/or Ostomy function Yes OBJECTIVE: VITALS: BP 121/71 (BP Location: Right arm, Patient Position: Lying) Pulse 99 Temp 36.6 C (97.8 F) (Temporal) Resp 14 Ht 5' 3 (1.6 m) Wt 140 lb 14 oz (63.9 kg) LMP (LMP Unknown) SpO2 94% BMI 24.95 kg/m INTAKE/OUTPUT: I/O last 3 completed shifts: In: 52 (0.8 mL/kg) [IV Piggyback:52] Out: - (0 mL/kg) Weight: 63.9 kg No intake/output data recorded. REVIEW OF SYSTEMS: Pertinent positives and negatives as per interval history section PHYSICAL EXAM: CONSTITUTIONAL: A&O x 3, LUNGS: Resp effort easy and unlabored, breath sounds normal CARDIOVASCULAR: RRR ABDOMEN: soft, nondistended, suprapubic tenderness, peritoneal signs absent MUSCULOSKELETAL: Normal range of motion NEUROLOGIC: Level of Alertness: alert PSYCHIATRIC: Speech is normal SKIN: Warm, dry, and intact Data: CT abdomen pelvis w contrast Status: Final result Link to Procedure Log Procedure Log Orders Requiring a Screening Form Procedure Order Status Order ID Accession Number Form Status CT abdomen pelvis w contrast Completed [id number] In Progress PACS Images Show images for CT abdomen pelvis w contrast Study Result Narrative & Impression [facility] 1955 [id number] Exam Date/Time: 07/05/2023 14:30 Procedure: CT ABDOMEN PELVIS W CONTRAST Ordering Provider: NAIK HUY Reason For Exam: Abdominal pain, acute, nonlocalized CT ABDOMEN AND PELVIS WITH IV CONTRAST CLINICAL HISTORY: Abdominal pain. History of sigmoid diverticulitis. TECHNIQUE: CT of the abdomen and pelvis was performed with IV contrast using standard technique. Dose reduction was employed with automated exposure control. Contrast: IV: 75 ml of Isovue 370 Oral contrast was also given. COMPARISON: CT abdomen/pelvis 06/27/2023, CT 06/23/2023 RESULT: Liver: No mass. Biliary: No bile duct dilation. Gallbladder is nondilated. Spleen: No mass. Splenomegaly Pancreas: No mass or duct dilation. Adrenals:No mass. Kidneys: No obstructing calculus or hydronephrosis. GI tract: No dilation. Appendix is unremarkable. Colonic diverticulosis. There is again mural thickening and stranding of the sigmoid colon, mildly increased from prior exam. New 2.3 x 1.9 x 2.6 cm fluid collection between loops of sigmoid and rectum in the left pelvis containing small amount air (series 2 image 98). No large volume pneumoperitoneum. Interval excessive colonic fecal burden, nonspecific though can be seen with constipation if in the appropriate clinical setting. Lymph nodes: No abdominal lymphadenopathy. Mesentery/Peritoneum: No ascites or mass. No free air. Retroperitoneum: No mass. Vasculature: The celiac axis and SMA are patent. The portal vein and branches, splenic vein, SMV, and hepatic veins are patent. 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 Bones/Soft Tissues: Degenerative changes. Postoperative changes of L4-L5 bilateral pedicle screw and jermaine fixation. Unchanged 3 mm anterolisthesis of L4 on L5. Lower thorax: Unremarkable. IMPRESSION: Sigmoid diverticulitis again noted. There appears be a new 2.6 cm fluid collection containing air locules between sigmoid and rectum in the left pelvis as described. Inflammatory stranding has increased. Findings are favored to be due to an abscess. An inflamed, enlarged diverticulum is also possible though felt less likely. Consider short term follow up. Recommend colonoscopy after treatment to exclude any potential underlying lesions. Excessive colonic fecal burden which there is nonspecific though can be seen with constipation if in the appropriate clinical setting. Redemonstrated abdominal aortic aneurysm. Remainder of the exam has not significantly changed since prior exam. CRITICAL TEST RESULT COMMUNICATION: Notification of these findings was made to RYAN NAIK via phone call on 07/05/2023 4:22 PM EDT. Reference: Recommended interval for initial follow-up imaging of ectatic aortas and aneurysms: Og et al. JACR. 2013 Diameter Imaging interval 2.5-2.9 cm 5 y 3.0-3.4 cm 3 y 3.5-3.9 cm 2 y 4.0-4.4 cm 1 y 4.5-4.9 cm 6 mo 5.0-5.5 cm 3-6 mo Report Dictated on Electronically Signed By: Phoenix Redman MD Electronically Signed Date/Time: 07/05/2023 4:25 PM EDT Result History CT abdomen pelvis w contrast (Order #[id number]) on 07/05/2023 - Order Result History Report CT abdomen pelvis w contrast: Patient Communication Add Comments Not seen Breast Imaging Recommendations Priscila Cha No recommendations exist for this order. Risk Scores No Tyrer-Cuzick assessment data. No Risk Considerations assessment data. No NCC HBOC Guidelines assessment data. No NCCN Rasheed assessment data. No Risk Explanation Tyrer-Cuzick 8 assessment data. No BRCAPRO assessment data. No Myriad risk assessment data. No Reji risk assessment data. No Juani risk assessment data. No RESIDENT CAREGIVER Request ID assessment data. No RESIDENT CAREGIVER hot mill observer ID assessment data. Signed by Signed Time Phone Pager Phoenix Redman MD 07/05/2023 16:25 Exam Information Status Exam Begun Exam Ended Final 07/05/2023 14:18 07/05/2023 14:29 External Results Report Open External Results Report Encounter View Encounter Screening Form Questions No questions have been answered for this form. Study Details Open Study Details Order Transmittal Tracking CT abdomen pelvis w contrast (Order #[id number]) on 07/04/[address] abdomen pelvis w contrast (Order #[id number]) on 07/04/23 CBC: Recent Labs 07/04/2324307/05/238 07/06/23 0415 WBC 11.5* 13.6* 9.7 HGB 11.3* 12.3 11.3* HCT 34.4* 38.1 32.4* PLT 444* 460* 399 BMP: Recent Labs 07/04/2324307/05/234707/06/235 NA 134* 134* 131* K 3.5 3.3* 3.9 CL 105 102 103 CO2 27 27 24 BUN 10 10 8 CREATININE 0.63 0.52 0.48* GLUCOSE 99 119* 88 Hepatic: Recent Labs 07/04/2324307/05/234707/06/23 0415 AST 21 31 23 ALT 10 14 12 BILITOT 0.5 0.6 0.4 ALKPHOS 60 82 68 ASSESSMENT AND PLAN: Ms. Cha is a 67 y.o. F presenting with LLQ abdominal pain -CT 06/23 demonstrates acute distal descending diverticulitis into sigmoid colon without fluid collection or perforation -CT 07/05 with sigmoid diverticulitis, new 2.6 cm fluid collection with air locules between sigmoidand rectum -WBC 9.7, Hgb 11.3 -Exam with worsened suprapubic tenderness -IV Zosyn, ID consulted -Okay to trial CLD -GI following- recommend outpatient colonoscopy once inflammation subsides- patient scheduled in 2 weeks for appt -Medical mgmt per primary team Disposition: Patient with persistent diverticular inflammation/pain, worsened after contrast yesterday. Continue above conservative management, recommend limiting diet to CLD. Okay for discharge homefrom surgical standpoint when pain improving. Surgical indications reviewed with patient and she defers all surgery at this time. Patient should keep her established GI appointment in coming weeks. No surgical intervention anticipated. Patient counseled on risks, benefits, and alternatives of treatment plan today. Patient states an understanding and willingness to proceed with plan. SATINDER Solorzano * Ryan Naik MD - 07/05/2023 11:43 AM EDT Images from the original note were not included. Hospitalist Progress Note 07/05/[id number]: Please page me ([phone]) for patient care issues. [phone]: Please page [facility] Hospitalist for any issues. Subjective: Admit Date: 06/23/2023 PCP: LEONID DEE MD Room#: B2-252/B2-252 A Interval History: States LLQ abdominal pain is better after she had a fairly large BM. Says it happened after she got back from CT scan today after drinking the stuff . Says pain is currently 7/10 as it is still pretty bad but better than yesterday. She does appear comfortable today. No chest painor sob. No fevers or chills. No NV Adult diet Regular; Low Fat (less than or equal to 50 gm/day); Low Fiber @[id number]@ 24HR INTAKE/OUTPUT: No intake or output data in the 24 hours ending 07/05/23 1143 Past Medical History: Past Medical History: Diagnosis Date Arthritis COPD exacerbation (HCC) 06/20/2022 Pneumonia 03/04/2019 Primary hypertension 06/24/2023 LABS: CBC: Recent Labs 07/04/234 07/05/238 WBC 11.5* 13.6* RBC 4.07 4.43 HGB 11.3* 12.3 HCT 34.4* 38.1 MCV 84.5 86.0 RDW 15.9* 15.6* PLT 444* 460* BMP: Recent Labs 07/04/2324307/05/238 NA 134* 134* K 3.5 3.3* CL 105 102 CO2 27 27 BUN 10 10 CREATININE 0.63 0.52 GLUCOSE 99 119* CALCIUM 9.2 9.0 ANIONGAP 3 6 LIVER PROFILE: Recent Labs 07/04/2324307/05/23 0048 AST 21 31 ALT 10 14 BILITOT 0.5 0.6 ALKPHOS 60 82 PROT 6.7 7.6 PT/INR: No results for input(s): PROTIME , INR in the last 72 hours. CARDIAC ENZYMES: No results for input(s): TROPONINI in the last 72 hours. Procalcitonin: No results found for: PROCAL COVID-19 PCR: No results for input(s): COVID19 in the last 72 hours. Objective: Vitals: BP 133/68 Pulse 94 Temp 36.8 C (98.2 F) (Temporal) Resp 17 Ht 5' 3 (1.6 m) Wt 140 lb 14 oz (63.9 kg) LMP (LMP Unknown) SpO2 92% BMI 24.95 kg/m Pulse Ox: SpO2 Av.5 % Min: 92 % Max: 95 % Supplemental O2: General appearance: mild distress, appears stated age, HEENT: Eyes: No scleral icterus Oral: Tongue is semi-moist Cardiovascular: S1/S2 heard, RRR Respiratory: Clear to auscultation bilaterally Abdomen: Soft, Pain to palp of Left lower/mid abdominal quad, non-distended bowel sounds positive Musculoskeletal: No obvious deformities seen Skin: No visible rashes or lesions. Medications: amLODIPine, 5 mg, Oral, Daily docusate, 50 mg, Oral, BID enoxaparin, 40 mg, SubCUTAneous, Daily Oxfvgfrstjh-Ojiorewgt-Mitvxx, 1 puff, Inhalation, Daily hydrocortisone, , Topical, BID influenza, 0.5 mL, IntraMUSCular, Once polyethylene glycol (PEG) 3350, 17 g, Oral, Daily potassium chloride CR, 40 mEq, Oral, Once traZODone, 50 mg, Oral, qPM Assessment Acute uncomplicated diverticulitis with slow improvement - patient initially felt there's no improvement and states she felt worse but then on 06/29, she started turning around and improving. Ct repeated on 06/27 remains the same. [facility] He is aware of slow improvement. He recommended to set course to finish 07/04, this will be 10+ days which is longer than usual,but fair for slow disease. If to PO, use amox-clav 875mg PO q12h through 07/04. Now on regular diet. Surgery saw and states no acute surgical intervention and recommend same tx. GI also saw earlier in admission and agreed with IV antibx and symptomatic treatment. Patient worsening pain on 07/04 andWBC up to 11.[address] abd/pelvis done today and results pending. Pain is better today after large BM when she got back from CT. Hypokalemia - replaced Leukocytosis - resolved HTN Hyponatremia - resolved with IVF Anemia - H/H stable. Plan Continue PO augmentin same for now, follow up results of CT of abd/pelvis with contrast due to worsening 06/27 pain yesterday with bump in WBC. Check daily labs. Surgery has been following and statesno acute surgical intervention and recommend same tx. GI also agreed with IV antibx and symptomatictreatment. Toxic drug monitoring/narrow therapeutic index drug monitoring if any: # Drug name : # Route administered : # Method of monitoring : Extended Emergency Contact Information Primary Emergency Contact: Deja Cha Mobile Relation: Spouse RYAN NAIK MD Division of Hospitalist Medicine [facility]patient Medical Services[facility] [place]: Epic chat * Lis Wei RD - 07/04/2023 2:45 PM EDT Nutrition Assessment Type and Reason for Visit: Reassess Nutrition Recommendations/Plan: Continue Regular Low Fiber and Low Fat (<50 g/day) diet Encourage patient to participate in room service daily at meal times Please record % meals and oral nutrition supplements consumed in flow-sheet for most accurate nutrient intake assessment. Obtain actual standing scale weight- patient has been without an accurate weight since 06/24/23 Provided educational materials on Low-Fiber diet for diverticulitis, patient declined ramy diet education at this time, but did accept materials to review. RDN to continue to monitor weekly: fluid accumulation, weight, skin integrity, trends in lab values, ability vs willingness to participate in room-service and tolerate PO diet, improvement in clinical status, discharge planning. Malnutrition Assessment: Malnutrition Status: Moderate malnutrition Context: Acute Illness Findings of the 6 clinical characteristics of malnutrition: Energy Intake: 50% or less of estimated energy requirements for 5 or more days Weight Loss: Unable to assess Body Fat Loss: Unable to assess Muscle Mass Loss: Moderate muscle mass loss Temples (temporalis), Clavicles (pectoralis & deltoids) Fluid Accumulation: No significant fluid accumulation [employer] Strength: Not Performed Nutrition Assessment: 67 year old woman who remains admitted with acute sigmoid diverticulitis, CT showed diverticulitis into sigmoid colon without fluid collection or perforation, repeating imaging on 06/27 showed much of the same. GenSurg consulted and recommended conservative treatment with IV antibiotics, and diet to ADAT. No planned surgical intervention at this time, discharge once pain controlled. Recommending outpatient colonoscopy once symptoms resolve. Resting in bed at time of re-assessment under multipleblankets. States she is too cold to uncover herself and call for lunch. Thus far today she has consumed water and hot tea. Declined to try any Low-Fiber or soft foods as she is scared to eat . RDN attempted to encourage patient, she was agreeable to have cream of wheat with one brown sugar. Declined ONS- those things make me sick . RDN provided diet education materials on Low-Fiber (<13 g/day)diet for home-going. Patient quickly went back to sleeping Estimated Daily Nutrient Needs: Energy Requirements Based On: Kcal/kg Weight Used for Energy Requirements: [place] Weight for Energy Calculation (kg): 52 kg Total Energy Requirements (kcals/day): 8701-1920 kcals (28-32 kcals/kg) Weight Used for Protein Requirements: [place] Weight in Kg Used for Protein Requirements: 52 kg Estimated Total Protein (g/day): 62-68 (1.2-1.3g/kg) Estimated Daily Total Fluid (ml/day): 1560 ml/day or per MD Nutrition Related Findings: No skin break down or edema noted. Meka score=20. +bm this morning. To complete antibiotics today(07/04). Meds reviewed. Labs: Na+(134), WBC(11.5), Hgb(11.3), Hct(34.4). Minimal PO intake for 11 days. Wound Type: None Current Nutrition Therapies: Adult diet Regular; Low Fat (less than or equal to 50 gm/day); Low Fiber Current Oral Intake Average Meal Intake: 1-25%, 26-50% (per EMR) Average Supplements Intake: None Ordered, Refusing to take Anthropometric Measures: Height: 160 cm (5' 3 ) Current Body Weight: 63.9 kg (140 lb 14 oz) Weight Source: Bed Scale Admission Body Weight: 63.9 kg (140 lb 14 oz) (bed) Usual Body Weight: 65.3 kg (144 lb) (144# 8/14/23; 140.8# 03/01/23; 144# 02/06/23; 142.9# 06/19/22) % Weight Change (Calculated): -2.2 [place] Body Weight (lbs) (Calculated): 115 lbs [place] Body Weight (Kg) (Calculated): 52 kg % [place] Body Weight (Calculated): 122.5 % BMI (kg/m2) (Calculated): 25 Weight Adjustment For: No Adjustment BMI Categories: Overweight (BMI 25.0-29.9) Nutrition Diagnosis: Altered GI function related to acute injury/trauma, other (comment) (Diverticulitis) as evidenced by diarrhea, GI abnormality, nausea Moderate malnutrition, In context of acute illness or injury related to inadequate protein-energy intake as evidenced by moderate muscle loss (PO < 50% estimated needs for > 5 days.) Nutrition Interventions: Nutrition Education/Counseling: Education declined (Patient NRTL, provided handout to review.) Coordination of Nutrition Care: Continue to monitor while inpatient Plan of Care discussed with: patient Goals: Previous Goal Met: No Progress toward Goal(s) (unable vs unwilling to tolerate or take in PO) Goals: PO intake 75% or greater, by next RD assessment Specify Other Goals: Altered GI symptoms (diarrhea) will improve Nutrition Monitoring and Evaluation: Behavioral-Environmental Outcomes: None Identified Food/Nutrient Intake Outcomes: Food and Nutrient Intake, Diet Advancement/Tolerance Physical Signs/Symptoms Outcomes: Biochemical Data, GI Status, Nausea or Vomiting, Weight, Skin, Nutrition Focused Physical Findings, Hemodynamic Status, Fluid Status or Edema Discharge Planning: Continue current diet Lis Wei RDN, LDN, Contact: *[phone] * Ryan Naik MD - 07/04/2023 10:12 AM EDT Images from the original note were not included. Hospitalist Progress Note 07/04/[id number]: Please page me ([phone]) for patient care issues. [phone]: Please page [facility] Hospitalist for any issues. Subjective: Admit Date: 06/23/2023 PCP: LEONID DEE MD Room#: B2-252/B2-252 A Interval History: States LLQ abdominal pain is more severe today and states now has like shooting pain from rectum upwards that is worst than labor. States pain is 10/10. Says pain is like labor painor worse. She is in mild distress. No chest pain or sob. No fevers or chills. No NV Adult diet Regular; Low Fat (less than or equal to 50 gm/day); Low Fiber @[id number]@ 24HR INTAKE/OUTPUT: Intake/Output Summary (Last 24 hours) at 07/04/2023 1012 Last data filed at 07/03/20231999 Gross per 24 hour Intake 840 ml Output -- Net 840 ml Past Medical History: Past Medical History: Diagnosis Date Arthritis COPD exacerbation (HCC) 06/20/2022 Pneumonia 03/04/2019 Primary hypertension 06/24/2023 LABS: CBC: Recent Labs 07/04/23243 WBC 11.5* RBC 4.07 HGB 11.3* HCT 34.4* MCV 84.5 RDW 15.9* PLT 444* BMP: Recent Labs 07/04/23243 NA 134* K 3.5 CL 105 CO2 27 BUN 10 CREATININE 0.63 GLUCOSE 99 CALCIUM 9.2 ANIONGAP 3 LIVER PROFILE: Recent Labs 07/04/23243 AST 21 ALT 10 BILITOT 0.5 ALKPHOS 60 PROT 6.7 PT/INR: No results for input(s): PROTIME , INR in the last 72 hours. CARDIAC ENZYMES: No results for input(s): TROPONINI in the last 72 hours. Procalcitonin: No results found for: PROCAL COVID-19 PCR: No results for input(s): COVID19 in the last 72 hours. Objective: Vitals: BP (!) 141/82 (BP Location: Left arm, Patient Position: Sitting) Pulse 78 Temp 36.9 C (98.4 F) (Temporal) Resp 18 Ht 5' 3 (1.6 m) Wt 140 lb 14 oz (63.9 kg) LMP (LMP Unknown) SpO2 96% BMI 24.95 kg/m Pulse Ox: SpO2 Av % Min: 94 % Max: 96 % Supplemental O2: General appearance: mild distress, appears stated age, HEENT: Eyes: No scleral icterus Oral: Tongue is semi-moist Cardiovascular: S1/S2 heard, RRR Respiratory: Clear to auscultation bilaterally Abdomen: Soft, Pain to palp of Left lower/mid abdominal quad, non-distended bowel sounds positive Musculoskeletal: No obvious deformities seen Skin: No visible rashes or lesions. Medications: amLODIPine, 5 mg, Oral, Daily amoxicillin-clavulanate, 875 mg, Oral, 2 times per day docusate, 50 mg, Oral, BID enoxaparin, 40 mg, SubCUTAneous, Daily Zvcqinxqjei-Oaaavkifz-Xfleoz, 1 puff, Inhalation, Daily hydrocortisone, , Topical, BID influenza, 0.5 mL, IntraMUSCular, Once polyethylene glycol (PEG) 3350, 17 g, Oral, Daily traZODone, 50 mg, Oral, qPM Assessment Acute uncomplicated diverticulitis with slow improvement - patient initially felt there's no improvement and states she felt worse but then on 06/29, she started turning around and improving. Ct repeated on 06/27 remains the same. Spoke with Dr. Albarado from [facility]. He is aware of slow improvement. He recommended to set course to finish 07/04, this will be 10+ days which is longer than usual,but fair for slow disease. If to PO, use amox-clav 875mg PO q12h through 07/04. Now on regular diet. Surgery saw and states no acute surgical intervention and recommend same tx. GI also saw earlier in admission and agreed with IV antibx and symptomatic treatment. Patient worsening on 07/04 and WBC up to 11.[address] abd/pelvis Hypokalemia - replaced Leukocytosis - resolved HTN Hyponatremia - resolved with IVF Anemia - H/H stable. Plan Continue PO augmentin same for now, but will get CT of abd/pelvis with contrast due to worsening 06/27 pain today with bump in WBC. Check daily labs. Surgery has been following and states no acute surgical intervention and recommend same tx. GI also agreed with IV antibx and symptomatic treatment. Toxic drug monitoring/narrow therapeutic index drug monitoring if any: # Drug name : # Route administered : # Method of monitoring : Extended Emergency Contact Information Primary Emergency Contact: Deja Cha Mobile Relation: Spouse RYAN NAIK MD Division of Hospitalist Medicine Inpatient Medical Services[place]: Epic chat * Sadie Yue, PT - 07/03/2023 3:58 PM EDT Images from the original note were not included. PHYSICAL THERAPY [facility] Initial Evaluation Name/MRN: Priscila Cha ([id number]) Evaluation Date: 07/03/2023 Date of : 1955 Admission Date: 06/23/2023 3:12 PM Age: 67 y.o. Room/Bed: B2-249/B2-249 A Discharge Recommendation: Home with Assist PRN Equipment Needed: none Assessment IMPRESSION: Pt is a 67 y.o. female admitted 06/23 LLQ pain. Found to have diverticulitis. Pt was previously independent with functional mobility without assistive device. Pt has significant past medical history as indicated impacting pt's current clinical presentation. Pt is currently mod I for bed mobility, independent with functional transfers, ambulation and stairs. Pt denies concerns for home going. No acute skilled PT needs identified. Recommend home with PRN assist. Will sign off at this time. Please re-consult if change in status. Diagnosis: admitted 06/23 LLQ pain. Found to have diverticulitis. Performance Deficits /Impairments: N/A Decision Making: Low Complexity Subjective Pt pleasant and agreeable to therapy session Per RN okay for therapy PIV intact. Pain: 0-10 pain scale: 6/10 Location: abdomen Past Medical History: Past Medical History: Diagnosis Date Arthritis COPD exacerbation (HCC) 06/20/2022 Pneumonia 03/04/2019 Primary hypertension 06/24/2023 Past Surgical History: Past Surgical History: Procedure Laterality Date BACK SURGERY N/A 2017 lower back in middle MANDIBLE SURGERY Bilateral 1983 wires on both jaws now TONSILLECTOMY (HISTORICAL) Admission Diagnosis: Patient Active Problem List Diagnosis Date Noted Chronic pain 06/24/2023 Multilevel degenerative disc disease 06/24/2023 Spondylolisthesis at L5-S1 level 06/24/2023 Primary hypertension 06/24/2023 Diverticulitis 06/23/2023 COPD exacerbation (HCC) 06/20/2022 Community acquired pneumonia 01/13/2022 Spondylolisthesis of lumbar region 07/06/2017 Spondylolisthesis at L4-L5 level 07/06/2017 Chest pain 06/19/2022 Dizziness 10/15/2021 Pneumonia 03/04/2019 Medical Precautions: No active isolations Proper PPE donned/doffed in accordance with facility standards. Fall Risk: Adams Fall Risk Score: 20 (Low Risk) Precautions/Restrictions: N/A Family/Caregiver Present: none Overall Cognitive Status: WNL Overall Orientation Status: Oriented x4 Vision: no visual deficits Hearing: normal Social/Functional History Patient admitted from home. 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 No LOB or unsteadiness noted. Ambulation Ambulation 1 Assistive device(s) used: none Assist level: Independent Distance (ft): ~200 feet Quality of gait: No gait deviations Pt completes ambulation without difficulty. No significant LOB or unsteadiness noted. Stairs Stairs 1 Assistive device(s) used: none Assist level: Independent # of steps: 9 Rails: right Additional factors: reciprocal going up, reciprocal going down Pt completes without difficulty. No LOB or unsteadiness noted. Pt endorses mild SOBOE 2/2 COPD. Reports mild dizziness due to multiple turns on stairs. Outcome Measures AM-PAC How much HELP from another person do you currently need Turning from your back to your side while in a flat bed without using bedrails?: None Moving from lying on your back to sitting on the side of a flat bed without using bedrails?: None Moving to and from a bed to a chair (including a wheelchair)?: None Standing up from a chair using your arms (wheelchair or bedside chair)?: None Walking in a hospital room?: None Stair climbing assessed?: Yes Climbing 3-5 steps with a railing?+: None AM-PAC Inpatient Mobility Raw Score : 24 AM-PAC Inpatient Mobility Raw Score (No Stairs) : 20 Plan No skilled acute PT indicated at this time. Please reconsult should changes occur. Safety/Education Safety Safety Devices in place: All fall risk precautions in place, left in bed, gait belt, and nurse notified Restraints: N/A Education Education Given To: patient Education Provided: PT Role, Plan of Care, and Discharge Recommendations Education Method: Verbal and Demonstration Barriers to Learning: None Education Outcome: Verbalized Understanding and Demonstrated Understanding Goals Patient Stated Goal: to go home Therapy Time Individual Co-treatment Time In 1525 (co-eval with OT) Time Out 1537 Minutes 12 Sadie Turner PT Patient's Physical Therapy Plan of Care supervision is transferred to a [facility] Therapy Services Physical Therapist. Goals and/or treatment plan was established in collaboration with patient/family/other representatives. * Neha Henriquez OT - 07/03/2023 3:51 PM EDT Images from the original note were not included. Occupational Therapy OCCUPATIONAL THERAPY [facility] Initial Evaluation Name/MRN: Priscila Cha ([id number]) Evaluation Date: 07/03/2023 Date of : 1955 Admission Date: 06/23/2023 3:12 PM Age: 67 y.o. Room/Bed: B2-249/B2-249 A Discharge Recommendation: Home with Assist PRN Equipment Needed: none Assessment IMPRESSION: Pt admitted 06/23 with abdominal pain. Pt found to have diverticulitis with GI following. Pt is independent with ADLs and functional mobility at baseline. At time of eval, pt is independent with these functional activities. Pt with no acute OT needs and no concerns for home going. Pt safe to return home with PRN assist. Performance Deficits /Impairments: N/A Prognosis: Good Decision Making: Low Complexity Subjective Pt supine in bed at arrival. Pt ok to see per RN. PIV in tact. Pt was pleasant and agreeable to OT eval. Pain: 0-10 pain scale: 7/10 Location: abdominal pain Past Medical History: Past Medical History: Diagnosis Date Arthritis COPD exacerbation (HCC) 06/20/2022 Pneumonia 03/04/2019 Primary hypertension 06/24/2023 Past Surgical History: Past Surgical History: Procedure Laterality Date BACK SURGERY N/A 2017 lower back in middle MANDIBLE SURGERY Bilateral 1983 wires on both jaws now TONSILLECTOMY (HISTORICAL) Admission Diagnosis: Patient Active Problem List Diagnosis Date Noted Chronic pain 06/24/2023 Multilevel degenerative disc disease 06/24/2023 Spondylolisthesis at L5-S1 level 06/24/2023 Primary hypertension 06/24/2023 Diverticulitis 06/23/2023 COPD exacerbation (HCC) 06/20/2022 Community acquired pneumonia 01/13/2022 Spondylolisthesis of lumbar region 07/06/2017 Spondylolisthesis at L4-L5 level 07/06/2017 Chest pain 06/19/2022 Dizziness 10/15/2021 Pneumonia 03/04/2019 Medical Precautions: No active isolations Proper PPE donned/doffed in accordance with facility standards. Fall Risk: Adams Fall Risk Score: 20 (Low Risk) Precautions/Restrictions: N/A Family/Caregiver Present: none Overall Cognitive Status: WNL Overall Orientation Status: Oriented x4 Social/Functional History Patient admitted from home. 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 Pt reporting she has been ambulating to bathroom and completing toileting tasks independently. Pt with adequate balance for standing aspects of ADLs. Upper Extremity Assessment AROM: WNL PROM: WNL Strength: WFL Vision: no visual deficits Hearing: normal Bed Mobility Supine to sit: Modified Independent Sit to supine: Modified Independent Scooting: Modified Independent Denies dizziness. No difficulty noted. Transfers/Functional Mobility Sit to stand: Modified Independent Stand to sit: Modified Independent Functional mobility: Modified Independent Pt standing without device from EOB mod I. Pt ambulating functional household distances mod I with no device. No LOB or safety concerns noted. Device(s) used: none AM-PAC AM-PAC Inpatient Daily Activity Raw Score: 24 ADL Inpatient CMS G-Code Modifier: CH Plan No skilled acute OT indicated at this time. Please reconsult should changes occur. Safety/Education Safety Safety Devices in place: All fall risk precautions in place, call light within reach, left in bed, gait belt, nurse notified, and no alarms engaged upon entry Restraints: N/A Education Education Given To: patient Education Provided: OT Role, Plan of Care, and Discharge Recommendations Education Method: Verbal Barriers to Learning: None Education Outcome: Verbalized Understanding Goals Patient Stated Goal: to have pain controlled Therapy Time Individual Co-treatment Time In 1525 Time Out 1537 (co eval with PT d/t scheduling) Minutes 12 Neha Henriquez OT Patient's Occupational Therapy Plan of Care supervision is transferred to a [facility] Therapy Services Occupational Therapist. Goals and/or treatment plan was established in collaboration with patient/family/other representatives. * April Encinas MD - 07/03/2023 11:59 AM EDT Images from the original note were not included. Hospitalist Progress Note 07/03/2023 [phone]: Please secure chat [place] for patient care issues. [phone]: Please secure chat [facility] Hospitalist for any issues. Subjective: Admit Date: 06/23/2023 PCP: LEONID DEE MD Room#: B2-249/B2-249 A Chief Complaint : Abdominal pain - improved Interval History: No overnight issues. Denies chest pain, sob, constipation, fevers, or chills. Adult diet Regular; Low Fat (less than or equal to 50 gm/day); Low Fiber @[id number]@ 24HR INTAKE/OUTPUT: Intake/Output Summary (Last 24 hours) at 07/03/2023 1159 Last data filed at 07/03/2023 0844 Gross per 24 hour Intake 2 ml Output -- Net 2 ml Past Medical History: Past Medical History: Diagnosis Date Arthritis COPD exacerbation (HCC) 06/20/2022 Pneumonia 03/04/2019 Primary hypertension 06/24/2023 LABS: CBC: No results for input(s): WBC , RBC , HGB , HCT , MCV , RDW , PLT in the last 72 hours. BMP:No results for input(s): NA , K , CL , CO2 , BUN , CREATININE , GLUCOSE , CALCIUM , ANIONGAP in the last 72 hours. LIVER PROFILE:No results for input(s): AST , ALT , BILITOT , ALKPHOS , PROT in the last 72 hours. No lab exists for component: LABALBU PT/INR: No results for input(s): PROTIME , INR in the last 72 hours. CARDIAC ENZYMES: No results for input(s): TROPONINI in the last 72 hours. Procalcitonin: No results found for: PROCAL COVID-19 PCR: No results for input(s): COVID19 in the last 72 hours. Objective: Vitals: BP (!) 146/84 (BP Location: Left arm, Patient Position: Lying) Pulse 78 Temp 36.8 C (98.2 F) (Temporal) Resp 20 Ht 5' 3 (1.6 m) Wt 140 lb 14 oz (63.9 kg) LMP (LMP Unknown) EdM231% BMI 24.95 kg/m Pulse Ox: SpO2 Av.5 % Min: 95 % Max: 96 % Physical Exam General appearance: No apparent distress, appears stated age, HEENT: Eyes: No scleral icterus Oral: Tongue is semi-moist Cardiovascular: S1/S2 heard, RRR Respiratory: Clear to auscultation bilaterally Abdomen: Soft, mild diffuse tenderness non-distended bowel sounds positive Musculoskeletal: No obvious deformities seen Skin: No visible rashes or lesions. Medications: amLODIPine, 5 mg, Oral, Daily docusate, 50 mg, Oral, BID enoxaparin, 40 mg, SubCUTAneous, Daily hydrocortisone, , Topical, BID influenza, 0.5 mL, IntraMUSCular, Once mometasone-formoterol, 2 puff, Inhalation, BID piperacillin-tazobactam, 3,375 mg, IntraVENous, q8h polyethylene glycol (PEG) 3350, 17 g, Oral, Daily tiotropium, 1 capsule, Inhalation, Daily traZODone, 50 mg, Oral, qPM Assessment Acute uncomplicated diverticulitis-no surgical indication/intervention-received Zosyn Leukocytosis resolved Hypokalemia improved Chronic anemia Abdominal pain Medical Decision Making Patient is a 67-year-old female admitted for acute uncomplicated diverticulitis and received IV Zosyn, general surgery following and there is no surgical indication, patient complains of abdominal pain and requests frequent pain medication on opioids explained the leg effects of opioids such as constipation, ordered ketorolac for breakthrough pain renal function okay, encourage oral intake Antibiotic switched to Augmentin, stop date 1017 evening dose Anticipate discharge after PT and OT evaluations and once pain is controlled -am labs, replace lytes prn -increase activity -DVT prophylaxis: [x] Lovenox [] Heparin [] SCDs [x] Encourage ambulation [] Already on Anticoagulation Anticipated Discharge - Date - - Location - - Pending the following - Total time spent (which include face to face and non face to face encounters) : 36 minutes Toxic drug monitoring/narrow therapeutic index drug monitoring : # Drug name : # Route administered : # Method of monitoring : Extended Emergency Contact Information Primary Emergency Contact: Deja Cha Mobile Relation: Spouse APRIL ENCINAS MD, MD Division of Hospitalist Medicine Acute care [facility] PAGER: Epic chat * Adria Lopez MD - 07/03/2023 11:04 AM EDT [facility] Medical [facility] - Surgery [facility] Physicians Surgery Patient Name: Priscila Cha Date: 07/03/2023 Patient seen and examined by myself and I agree with NORA note below Patient resting in bed and appears comfortable Some pain earlier but this has resolved Abdomen soft nontender nondistended Labs and imaging reviewed Assessment /Plan: Sigmoid diverticulitis clinically improving Recommend advance to low fiber diet and patient to increase activity walking in hallways No acute surgical indication and none anticipated this hospitalization Surgery will follow peripherally for now Patient counseled on risks,benefits, and alternatives of treatement plan at length. Patient states an understanding and willingness to proceed with plan. I personally supervised my NORA and/or resident in the evaluation and management of Priscila Cha in the development of a treatment plan for this patient. I personally interviewed the patient and performed an individual physical examination. In addition, I discussed the patient's condition and treatment options with them. I have also reviewed and agree with the past medical, family and social history and care plan unless otherwise noted. All of the patient's questions were answered. This case represents moderate level care including chart review, care coordination and face to faceencounter was spent discussing/counseling the patient regarding the care plan for this patient. Thepatient was seen and examined independently and relevant data reviewed by myself. A full chart review was performed. Adria Lopez MD [facility] General Surgery 1:19 PM 07/03/2023 GENERAL SURGERY Progress Note PATIENT NAME: Priscila Cha TODAY'S DATE: 07/03/2023 SUBJECTIVE: Follow up on diverticulitis. Patient seen this morning resting in bed. She states that she ate some of a personal [employer] pizza yesterday with resultant increase in lower abdominal pain. She denies fever/chills or nausea/vomiting but notes continued constipation. Patient states that the pain medication is not helping like it has in the past. Pain controlled Yes Other Complaints No Flatus/BM/or Ostomy function Yes OBJECTIVE: VITALS: BP (!) 146/84 (BP Location: Left arm, Patient Position: Lying) Pulse 78 Temp 36.8 C (98.2 F) (Temporal) Resp 20 Ht 5' 3 (1.6 m) Wt 140 lb 14 oz (63.9 kg) LMP (LMP Unknown) [id number]% BMI 24.95 kg/m INTAKE/OUTPUT: No intake/output data recorded. I/O this shift: In: 2 [IV Piggyback:2] Out: - REVIEW OF SYSTEMS: Pertinent positives and negatives as per interval history section PHYSICAL EXAM: CONSTITUTIONAL: A&O x 3, LUNGS: Resp effort easy and unlabored, breath sounds normal CARDIOVASCULAR: RRR ABDOMEN: soft, nondistended, minimally tender suprapubic, peritoneal signs absent MUSCULOSKELETAL: Normal range of motion NEUROLOGIC: Level of Alertness: alert PSYCHIATRIC: Speech is normal SKIN: Warm, dry, and intact Data: CBC: No results for input(s): WBC , HGB , HCT , PLT in the last 72 hours. BMP: No results for input(s): NA , K , CL , CO2 , BUN , CREATININE , GLUCOSE in the last 72hours. Hepatic: No results for input(s): AST , ALT , BILITOT , ALKPHOS in the last 72 hours. No lab exists for component: ALB ASSESSMENT AND PLAN: Ms. Cha is a 67 y.o. F presenting with LLQ abdominal pain -CT 06/27 with acute sigmoid diverticulitis without air or fluid collection similar to 06/23 -CT 06/23 demonstrates acute distal descending diverticulitis into sigmoid colon without fluid collection or perforation -WBC 7.9, Hgb 10.4 -Exam with worsened, though still mild suprapubic tenderness -Okay to discontinue IV antibiotic therapy from surgical perspective -Recommend soft/low fiber diet as tolerated -GI following- recommend outpatient colonoscopy once inflammation subsides- patient scheduled in 2 weeks for appt -Medical mgmt per primary team Disposition: Patient with persistent diverticular inflammation/pain, worsened after pizza. Continueabove conservative management, recommend limiting diet to soft foods. Okay for discharge home from surgical standpoint when pain improving. Surgical indications reviewed with patient and she defers all surgery at this time. Patient should keep her established GI appointment in coming weeks. No surgical intervention anticipated. Patient counseled on risks, benefits, and alternatives of treatment plan today. Patient states an understanding and willingness to proceed with plan. SATINDER Solorzano * Adria Lopez MD - 07/02/2023 10:02 AM EDT [facility] - Surgery [facility] Physicians Surgery Patient Name: Priscila Cha Date: 07/02/2023 Patient seen and examined by myself and I agree with NORA note below Patient resting in bed and appears comfortable Pain/discomfort improved Abdomen soft nondistended no tenderness on deep palpation left lower quadrant Labs and imaging reviewed Assessment /Plan: Acute sigmoid diverticulitis No acute surgical indication Recommend continue with symptomatic care and at this point given no fevers and persistently low andnormal white count IV abx unnecessary Discussed with patient the indications for surgery Ok for dc home from surgery Surgery will continue to follow for now Patient counseled on risks,benefits, and alternatives of treatement plan at length. Patient states an understanding and willingness to proceed with plan. I personally supervised my NORA and/or resident in the evaluation and management of Priscila Cha in the development of a treatment plan for this patient. I personally interviewed the patient and performed an individual physical examination. In addition, I discussed the patient's condition and treatment options with them. I have also reviewed and agree with the past medical, family and social history and care plan unless otherwise noted. All of the patient's questions were answered. This case represents moderate level care including chart review, care coordination and face to faceencounter was spent discussing/counseling the patient regarding the care plan for this patient. Thepatient was seen and examined independently and relevant data reviewed by myself. A full chart review was performed. Adria Lopez MD [facility] General Surgery 1:32 PM 07/02/2023 GENERAL SURGERY Progress Note PATIENT NAME: Priscila Cha TODAY'S DATE: 07/02/2023 SUBJECTIVE: Follow up on diverticulitis. Patient seen this morning resting in bed, awakens to voice. She notes improvement in abdominal pain and would like to go home. Patient is tolerating diet without increased pain and denies fever/chills or nausea/vomiting. Patient would like to have bowel movement today, notes that it has been several days since she has had one. [facility] and knows to keep this appointment. Pain controlled Yes Other Complaints No Flatus/BM/or Ostomy function Yes OBJECTIVE: VITALS: BP 139/75 Pulse 64 Temp 36.4 C (97.6 F) (Temporal) Resp 18 Ht 5' 3 (1.6 m) Wt 140 lb 14 oz (63.9 kg) LMP (LMP Unknown) SpO2 96% BMI 24.95 kg/m INTAKE/OUTPUT: No intake/output data recorded. No intake/output data recorded. REVIEW OF SYSTEMS: Pertinent positives and negatives as per interval history section PHYSICAL EXAM: CONSTITUTIONAL: A&O x 3, LUNGS: Resp effort easy and unlabored, breath sounds normal CARDIOVASCULAR: RRR ABDOMEN: soft, nondistended, nontender, peritoneal signs absent MUSCULOSKELETAL: Normal range of motion NEUROLOGIC: Level of Alertness: alert PSYCHIATRIC: Speech is normal SKIN: Warm, dry, and intact Data: CBC: Recent Labs 06/30/23 0459 WBC 7.9 HGB 10.4* HCT 31.6* PLT 433 BMP: Recent Labs 06/30/23458 NA 137 K 3.8 CL 107 CO2 29 BUN 4* CREATININE 0.52 GLUCOSE 80 Hepatic: Recent Labs 06/30/23458 AST 17 ALT 14 BILITOT 0.2 ALKPHOS 51 ASSESSMENT AND PLAN: Ms. Cha is a 67 y.o. F presenting with LLQ abdominal pain -CT 06/27 with acute sigmoid diverticulitis without air or fluid collection similar to 06/23 -CT 06/23 demonstrates acute distal descending diverticulitis into sigmoid colon without fluid collection or perforation -WBC 7.9, Hgb 10.4 -Exam with resolved LLQ tenderness -Okay to discontinue IV antibiotic therapy -Recommend diet as tolerated -GI following- recommend outpatient colonoscopy once inflammation subsides- patient scheduled in 2 weeks for appt -Medical mgmt per primary team Disposition: Patient with persistent diverticular inflammation/pain, improving and tolerating more PO intake. Continue above conservative management. Okay for discharge home from surgical standpoint.Patient should keep her established GI appointment in coming weeks. No surgical intervention at this time. Patient counseled on risks, benefits, and alternatives of treatment plan today. Patient states an understanding and willingness to proceed with plan. SATINDER Solorzano * Ryan Naik MD - 07/02/2023 9:34 AM EDT Images from the original note were not included. Hospitalist Progress Note 07/02/2023 [phone]: Please page me ([phone]) for patient care issues. [phone]: Please page [facility] Hospitalist for any issues. Subjective: Admit Date: 06/23/2023 PCP: LEONID DEE MD Room#: [id number]/[id number] A Interval History: States LLQ abdominal pain getting much better today. Pain is currently 2/10 afterpain meds and was 6-7/10 before that but not 9-10/10 like before. Said she is able to tolerate foodstill and doesn't hurt to eat. No chest pain or sob. No fevers or chills. No NV Adult diet Regular; Low Fat (less than or equal to 50 gm/day); Low Fiber @[id number]@ 24HR INTAKE/OUTPUT: No intake or output data in the 24 hours ending 07/02/23933 Past Medical History: Past Medical History: Diagnosis Date Arthritis COPD exacerbation (HCC) 06/20/2022 Pneumonia 03/04/2019 Primary hypertension 06/24/2023 LABS: CBC: Recent Labs 06/30/23458 WBC 7.9 RBC 3.67* HGB 10.4* HCT 31.6* MCV 86.2 RDW 15.7* PLT 433 BMP: Recent Labs 06/30/23458 NA 137 K 3.8 CL 107 CO2 29 BUN 4* CREATININE 0.52 GLUCOSE 80 CALCIUM 8.8 ANIONGAP 1* LIVER PROFILE: Recent Labs 06/30/23458 AST 17 ALT 14 BILITOT 0.2 ALKPHOS 51 PROT 6.4 PT/INR: No results for input(s): PROTIME , INR in the last 72 hours. CARDIAC ENZYMES: No results for input(s): TROPONINI in the last 72 hours. Procalcitonin: No results found for: PROCAL COVID-19 PCR: No results for input(s): COVID19 in the last 72 hours. Objective: Vitals: BP 139/75 Pulse 64 Temp 36.4 C (97.6 F) (Temporal) Resp 18 Ht 5' 3 (1.6 m) Wt 140 lb 14 oz (63.9 kg) LMP (LMP Unknown) SpO2 96% BMI 24.95 kg/m Pulse Ox: SpO2 Av.5 % Min: 93 % Max: 96 % Supplemental O2: General appearance: No apparent distress, appears stated age, HEENT: Eyes: No scleral icterus Oral: Tongue is semi-moist Cardiovascular: S1/S2 heard, RRR Respiratory: Clear to auscultation bilaterally Abdomen: Soft, Pain to palp of LLQ but not as bad as before, non-distended bowel sounds positive Musculoskeletal: No obvious deformities seen Skin: No visible rashes or lesions. Medications: amLODIPine, 5 mg, Oral, Daily enoxaparin, 40 mg, SubCUTAneous, Daily hydrocortisone, , Topical, BID influenza, 0.5 mL, IntraMUSCular, Once mometasone-formoterol, 2 puff, Inhalation, BID piperacillin-tazobactam, 3,375 mg, IntraVENous, q8h polyethylene glycol (PEG) 3350, 17 g, Oral, Daily tiotropium, 1 capsule, Inhalation, Daily traZODone, 50 mg, Oral, qPM Assessment Acute uncomplicated diverticulitis with slow improvement - patient initially felt there's no improvement and states she felt worse but then on 06/29, she started turning around and improving. Ct repeated on 06/27 remains the same. Continue IV zosyn. Spoke with Dr. Albarado from [facility]. He is aware of slow improvement. He recommended to set course to finish 07/04, this will be 10+ days which islonger than usual, but fair for slow disease. If to PO, use amox-clav 875mg PO q12h through 07/04. Now on regular diet. Surgery saw and states no acute surgical intervention and recommend same tx. GIalso saw earlier in admission and agreed with IV antibx and symptomatic treatment. Hypokalemia - replaced Leukocytosis - resolved HTN Hyponatremia - resolved with IVF Anemia - H/H stable. Plan Continue IV zosyn the same. Suspect she is starting to turn the corner now. [facility] is aware of slow improvement. He recommended to set course to finish 07/04, thiswill be 10+ days which is longer than usual, but fair for slow disease. If to PO, use amox-clav 875mg PO q12h through 07/04. However, patient still remains pretty symptomatic with pain so may need toextend antibx longer once she is discharged. Check daily labs. Surgery saw and states no acute surgical intervention and recommend same tx. GI also agreed with IV antibx and symptomatic treatment. Toxic drug monitoring/narrow therapeutic index drug monitoring if any: # Drug name : # Route administered : # Method of monitoring : Extended Emergency Contact Information Primary Emergency Contact: Deja Cha Mobile Relation: Spouse RYAN NAIK MD Division of Hospitalist Medicine [facility]patient Medical Services[facility] [place]: Epic chat * Adria Lopez MD - 07/01/2023 10:47 AM EDT [facility] - Surgery [facility] Physicians Surgery Patient Name: Priscila Davis Semaj Date: 07/01/2023 Patient seen and examined by myself and I agree with NORA note below Patient resting in bed and appears comfortable Pain/discomfort slightly improved Abdomen soft nondistended mild tenderness on deep palpation left lower quadrant Labs and imaging reviewed Assessment /Plan: Acute sigmoid diverticulitis No acute surgical indication Recommend continue with symptomatic care and at this point given no fevers and persistently low andnormal white count IV abx unnecessary Discussed with patient the indications for surgery Surgery will continue to follow for now Patient counseled on risks,benefits, and alternatives of treatement plan at length. Patient states an understanding and willingness to proceed with plan. I personally supervised my NORA and/or resident in the evaluation and management of Priscila Cha in the development of a treatment plan for this patient. I personally interviewed the patient and performed an individual physical examination. In addition, I discussed the patient's condition and treatment options with them. I have also reviewed and agree with the past medical, family and social history and care plan unless otherwise noted. All of the patient's questions were answered. This case represents moderate level care including chart review, care coordination and face to faceencounter was spent discussing/counseling the patient regarding the care plan for this patient. Thepatient was seen and examined independently and relevant data reviewed by myself. A full chart review was performed. Adria Lopez MD [facility] General Surgery 11:02 AM 07/01/2023 GENERAL SURGERY Progress Note PATIENT NAME: Priscila Cha TODAY'S DATE: 07/01/2023 SUBJECTIVE: Follow up on diverticulitis. Patient seen this morning resting in bed. She notes slightimprovement in LLQ pain but notes return of pain when pain medication wears off. Patient is tolerating PO intake and denies fever/chills or nausea/vomiting. She endorses urinary urgency. Pain controlled Yes Other Complaints No Flatus/BM/or Ostomy function Yes OBJECTIVE: VITALS: BP (!) 143/81 (BP Location: Left arm, Patient Position: Sitting) Pulse 62 Temp 36.5 C (97.7 F) (Temporal) Resp 18 Ht 5' 3 (1.6 m) Wt 140 lb 14 oz (63.9 kg) LMP (LMP Unknown) SpO2 91% BMI 24.95 kg/m INTAKE/OUTPUT: No intake/output data recorded. No intake/output data recorded. REVIEW OF SYSTEMS: Pertinent positives and negatives as per interval history section PHYSICAL EXAM: CONSTITUTIONAL: A&O x 3, LUNGS: Resp effort easy and unlabored, breath sounds normal CARDIOVASCULAR: RRR ABDOMEN: soft, nondistended, mild LLQ tenderness, peritoneal signs absent MUSCULOSKELETAL: Normal range of motion NEUROLOGIC: Level of Alertness: alert PSYCHIATRIC: Speech is normal SKIN: Warm, dry, and intact Data: CBC: Recent Labs 06/29/2331706/30/23458 WBC 6.5 7.9 HGB 9.2* 10.4* HCT 27.9* 31.6* PLT 330 433 BMP: Recent Labs 06/29/2331706/30/23458 NA 135 137 K 3.4* 3.8 CL 110* 107 CO2 25 29 BUN 3* 4* CREATININE 0.39* 0.52 GLUCOSE 118* 80 Hepatic: Recent Labs 06/29/2331706/30/23458 AST 24 17 ALT 12 14 BILITOT 0.4 0.2 ALKPHOS 31* 51 ASSESSMENT AND PLAN: Ms. Cha is a 67 y.o. F presenting with LLQ abdominal pain -CT 06/27 with acute sigmoid diverticulitis without air or fluid collection similar to 06/23 -CT 06/23 demonstrates acute distal descending diverticulitis into sigmoid colon without fluid collection or perforation -WBC 7.9, Hgb 10.4 -Exam with LLQ tenderness -Continue IV antibiotic therapy -Recommend diet as tolerated, may scale back to liquids if pain continues -GI following- recommend outpatient colonoscopy once inflammation subsides -Medical mgmt per primary team Disposition: Patient with persistent diverticular inflammation/pain, slightly improving and tolerating more PO intake. Continue above conservative management. Will continue to follow. Did discuss possibility of surgical intervention if fails to improve- patient would like to hold off at this time. Will continue to closely follow. Patient counseled on risks, benefits, and alternatives of treatment plan today. Patient states an understanding and willingness to proceed with plan. SATINDER Solorzano * Ryan Naik MD - 07/01/2023 10:41 AM EDT Images from the original note were not included. Hospitalist Progress Note 07/01/2023 [phone]: Please page me ([phone]) for patient care issues. : Please page [facility] Hospitalist for any issues. Subjective: Admit Date: 06/23/2023 PCP: LEONID DEE MD Room#: [id number]/[id number] A Interval History: States LLQ abdominal pain better after pain meds and currently is 2/10 after the pain med. Still having pain though but not as bad as before she states and feels she is a little better today. Said she is able to tolerate food still and doesn't hurt to eat. No chest pain or sob. Nofevers or chills. No NV Adult diet Regular; Low Fat (less than or equal to 50 gm/day); Low Fiber @[id number]@ 24HR INTAKE/OUTPUT: No intake or output data in the 24 hours ending 07/01/23 1041 Past Medical History: Past Medical History: Diagnosis Date Arthritis COPD exacerbation (HCC) 06/20/2022 Pneumonia 03/04/2019 Primary hypertension 06/24/2023 LABS: CBC: Recent Labs 06/29/2331706/30/23458 WBC 6.5 7.9 RBC 3.25* 3.67* HGB 9.2* 10.4* HCT 27.9* 31.6* MCV 86.0 86.2 RDW 15.8* 15.7* PLT 330 433 BMP: Recent Labs 06/29/2331706/30/23458 NA 135 137 K 3.4* 3.8 CL 110* 107 CO2 25 29 BUN 3* 4* CREATININE 0.39* 0.52 GLUCOSE 118* 80 CALCIUM 7.4* 8.8 ANIONGAP 1* 1* LIVER PROFILE: Recent Labs 06/29/2331706/30/23458 AST 24 17 ALT 12 14 BILITOT 0.4 0.2 ALKPHOS 31* 51 PROT 5.4* 6.4 PT/INR: No results for input(s): PROTIME , INR in the last 72 hours. CARDIAC ENZYMES: No results for input(s): TROPONINI in the last 72 hours. Procalcitonin: No results found for: PROCAL COVID-19 PCR: No results for input(s): COVID19 in the last 72 hours. Objective: Vitals: BP (!) 143/81 (BP Location: Left arm, Patient Position: Sitting) Pulse 62 Temp 36.5 C (97.7 F) (Temporal) Resp 18 Ht 5' 3 (1.6 m) Wt 140 lb 14 oz (63.9 kg) LMP (LMP Unknown) SpO2 91% BMI 24.95 kg/m Pulse Ox: SpO2 Av.7 % Min: 91 % Max: 95 % Supplemental O2: General appearance: No apparent distress, appears stated age, HEENT: Eyes: No scleral icterus Oral: Tongue is semi-moist Cardiovascular: S1/S2 heard, RRR Respiratory: Clear to auscultation bilaterally Abdomen: Soft, Pain to palp of LLQ, non-distended bowel sounds positive Musculoskeletal: No obvious deformities seen Skin: No visible rashes or lesions. Medications: amLODIPine, 5 mg, Oral, Daily enoxaparin, 40 mg, SubCUTAneous, Daily hydrocortisone, , Topical, BID influenza, 0.5 mL, IntraMUSCular, Once mometasone-formoterol, 2 puff, Inhalation, BID piperacillin-tazobactam, 3,375 mg, IntraVENous, q8h polyethylene glycol (PEG) 3350, 17 g, Oral, Daily tiotropium, 1 capsule, Inhalation, Daily traZODone, 50 mg, Oral, qPM Assessment Acute uncomplicated diverticulitis with slow improvement - patient initially felt there's no improvement and states she felt worse but then on 06/29, she started turning around and improving. Ct repeated on 06/27 remains the same. Continue IV zosyn. [facility] He is aware of slow improvement. He recommended to set course to finish 07/04, this will be 10+ days which islonger than usual, but fair for slow disease. If to PO, use amox-clav 875mg PO q12h through 07/04. Now on regular diet. Surgery saw and states no acute surgical intervention and recommend same tx. Sarah saw earlier in admission and agreed with IV antibx and symptomatic treatment. Hypokalemia - replaced Leukocytosis - resolved HTN Hyponatremia - resolved with IVF Anemia - H/H stable. Plan Continue IV zosyn the same. [email or web address] He is aware of slow improvement. He recommended to set course to finish 07/04, this will be 10+ days which is longer than usual, but fair for slow disease. If to PO, use amox-clav 875mg PO q12h through 07/04. Check daily labs. Surgery saw and states no acute surgical intervention and recommend same tx. GI also agreed with IV antibx and symptomatic treatment. Toxic drug monitoring/narrow therapeutic index drug monitoring if any: # Drug name : # Route administered : # Method of monitoring : Extended Emergency Contact Information Primary Emergency Contact: Deja Cha Mobile Relation: Spouse RYAN NAIK MD Division of Hospitalist Medicine [facility]patient Medical Services[place] [place]: Epic chat * Ryan Naik MD - 06/30/2023 1:04 PM EDT Hospitalist Progress Note 06/30/2023 [phone]: Please page [place] ([phone]) for patient care issues. [phone]: Please page [facility] Hospitalist for any issues. Subjective: Admit Date: 06/23/2023 PCP: LEONID DEE MD Room#: B2-249/[id number] A Interval History: states LLQ abdominal pain better after pain meds but was 9/10 without pain meds. deja at bedside. Still having pain though but not as bad as before as she just had pain meds. Says it radiates to the back. Said she is able to tolerate food now and doesn't hurt to eat. No chest pain or sob. No fevers or chills. No NV Adult diet Regular; Low Fat (less than or equal to 50 gm/day); Low Fiber @[id number]@ 24HR INTAKE/OUTPUT: Intake/Output Summary (Last 24 hours) at 06/30/2023 1304 Last data filed at 06/29/2023 1400 Gross per 24 hour Intake 240 ml Output -- Net 240 ml Past Medical History: Past Medical History: Diagnosis Date Arthritis COPD exacerbation (HCC) 06/20/2022 Pneumonia 03/04/2019 Primary hypertension 06/24/2023 LABS: CBC: Recent Labs 06/28/23 0259 06/29/23 0318 06/30/23 0459 WBC 8.5 6.5 7.9 RBC 3.77* 3.25* 3.67* HGB 10.5* 9.2* 10.4* HCT 32.5* 27.9* 31.6* MCV 86.3 86.0 86.2 RDW 15.9* 15.8* 15.7* PLT 379 330 433 BMP: Recent Labs 06/28/2325806/29/2331706/30/23458 NA 134* 135 137 K 3.5 3.4* 3.8 CL 103 110* 107 CO2 26 25 29 BUN 4* 3* 4* CREATININE 0.57 0.39* 0.52 GLUCOSE 129* 118* 80 CALCIUM 8.3* 7.4* 8.8 ANIONGAP 5 1* 1* LIVER PROFILE: Recent Labs 06/28/2325806/29/2331706/30/23458 AST 21 24 17 ALT 15 12 14 BILITOT 0.4 0.4 0.2 ALKPHOS 52 31* 51 PROT 6.1* 5.4* 6.4 PT/INR: No results for input(s): PROTIME , INR in the last 72 hours. CARDIAC ENZYMES: No results for input(s): TROPONINI in the last 72 hours. Procalcitonin: Lab Results Component Value Date PROCAL 0.07 06/28/2023 COVID-19 PCR: No results for input(s): COVID19 in the last 72 hours. Objective: Vitals: BP (!) 142/86 (BP Location: Left arm, Patient Position: Lying) Pulse 76 Temp 36.9 C (98.4 F) (Temporal) Resp 16 Ht 5' 3 (1.6 m) Wt 140 lb 14 oz (63.9 kg) LMP (LMP Unknown) [id number]% BMI 24.95 kg/m Pulse Ox: SpO2 Av % Min: 91 % Max: 95 % Supplemental O2: General appearance: No apparent distress, appears stated age, HEENT: Eyes: No scleral icterus Oral: Tongue is semi-moist Cardiovascular: S1/S2 heard, RRR Respiratory: Clear to auscultation bilaterally Abdomen: Soft, Pain to palp of LLQ, non-distended bowel sounds positive Musculoskeletal: No obvious deformities seen Skin: No visible rashes or lesions. Medications: sodium chloride, 50 mL/hr, Last Rate: 50 mL/hr (06/30/23 0508) amLODIPine, 5 mg, Oral, Daily enoxaparin, 40 mg, SubCUTAneous, Daily hydrocortisone, , Topical, BID influenza, 0.5 mL, IntraMUSCular, Once mometasone-formoterol, 2 puff, Inhalation, BID piperacillin-tazobactam, 3,375 mg, IntraVENous, q8h polyethylene glycol (PEG) 3350, 17 g, Oral, Daily tiotropium, 1 capsule, Inhalation, Daily traZODone, 50 mg, Oral, qPM Assessment Acute uncomplicated diverticulitis with slow improvement - patient initially felt there's no improvement and states she felt worse but then on 06/29, she started turning around and improving. Ct repeated on 06/27 remains the same. Continue IV zosyn. Spoke with Dr. Albarado from [facility]. He is aware of slow improvement. He recommended to set course to finish 07/04, this will be 10+ days which islonger than usual, but fair for slow disease. If to PO, use amox-clav 875mg PO q12h through 07/04. Now on regular diet. Hypokalemia - replaced Leukocytosis - resolved HTN Hyponatremia - resolved with IVF Anemia - H/H stable. Plan Stop IVF today. Continue IV zosyn the same. Spoke with Dr. Albarado from [facility]. He is aware of slow improvement. He recommended to set course to finish 07/04, this will be 10+ days which is longer than usual, but fair for slow disease. If to PO, use amox-clav 875mg PO q12h through 07/04. Check daily labs. Spoke with Deja in room. He has been updated and all questions answered. They are very concerned why this is lasting so long. She was first diagnosed around 06/17 and went to [facility] and had PO antibx and got worse and ended up in hospital. Still with a lot of pain at times although to me does look better than when I initially saw her 2 days ago. Will consult surgery to evaluatedue to persistent pain despite antibx for about 12 days. Toxic drug monitoring/narrow therapeutic index drug monitoring if any: # Drug name : # Route administered : # Method of monitoring : Extended Emergency Contact Information Primary Emergency Contact: Deja Cha Mobile Relation: Spouse RYAN NAIK MD Division of Hospitalist Medicine [facility]patient Medical [facility] [place]: Epic chat * Ángela Banda, CLAUDIA - 06/29/2023 12:44 PM EDT Nutrition Assessment Type and Reason for Visit: Reassess Nutrition Recommendations/Plan: Continue with Adult diet Regular; Low Fat (less than or equal to 50 gm/day); Low Fiber for GI tolerance of diet. Provided the pt with diet handout Low fiber nutrition therapy from the Nutrition Care Manual for management of her Diverticulitis symptoms. Explained that low fiber diets are only meant to be followed during acute inflamed state. May eventually reintroduce fibrous foods one at a time as symptoms resolve. RD contact information provided for questions/concerns. Please document pt's PO intakes via flowsheet to accurately assess PO intake adequacy. Pt adamantly declined oral nutritional supplements at this time. Pt wanted Ensure Plus discontinued. Pt stated that she doesn't like Ensure supplements, though may consider Ensure Max Protein if intakes do not show improvement at follow up. Pt stated that she occasionally takes Premier Protein and RD explained it is a similar product. Monitor intakes, weights, and labs weekly. RD will follow. 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 Pt reported some improvement in her nausea and optimistic about eating a solid diet lunch. Pt stated that she has not had a BM yet today, but had loose stools yesterday. Pt stated that she has been incontinent which is not usual for her. Pt stated I don't even realize it's coming. Pt was receptive to information regarding Diverticulitis diet. RD weighed the pt via bed scale which measured the pt at 142#. Pt was surprised as pt stated that she weighed 132# about a week ago at home. Home weight may be dehydrated weight. Pt is on IV fluids. Bed scale may also be yielding a higher weight due to not being zeroed prior to weighing the pt. Pt stated that she does not like Ensure Plus; tried Ensure clear previously and did not like that either. Estimated Daily Nutrient Needs: Energy Requirements Based On: Kcal/kg Weight Used for Energy Requirements: [place] Weight for Energy Calculation (kg): 52 kg Total Energy Requirements (kcals/day): 9048-3969 kcals (28-32 kcals/kg) Weight Used for Protein Requirements: [place] Weight in Kg Used for Protein Requirements: 52 kg Estimated Total Protein (g/day): 62-68 (1.2-1.3g/kg) Estimated Daily Total Fluid (ml/day): 1560 ml/day or per MD Nutrition Related Findings: no edema; K+ 3.4, Cl 110, BUN 3, Cr 0.39, Glucose 118, 129, 97, Hgb 9.2, Hct 27.9, albumin 2.6 Wound Type: (scattered bruising/rashes) Current Nutrition Therapies: Adult diet Regular; Low Fat (less than or equal to 50 gm/day); Low Fiber Current Oral Intake Average Meal Intake: 1-25%, 51-75%, 76-100% Average Supplements Intake: Refusing to take Anthropometric Measures: Height: 160 cm (5' 3 ) Current Body Weight: 64.4 kg (142 lb) Weight Source: Bed Scale Admission Body Weight: 63.5 kg (140 lb) (bed scale) Usual Body Weight: 63.5 kg (140 lb) (Pt reported UBW) % Weight Change (Calculated): 1.4 [place] Body Weight (lbs) (Calculated): 115 lbs [place] Body Weight (Kg) (Calculated): 52 kg % [place] Body Weight (Calculated): 123.5 % BMI (kg/m2) (Calculated): 25.2 Weight Adjustment For: No Adjustment BMI Categories: Overweight (BMI 25.0-29.9) Nutrition Diagnosis: Altered GI function related to acute injury/trauma, other (comment) (Diverticulitis) as evidenced by diarrhea, GI abnormality, nausea Nutrition Interventions: Nutrition Education/Counseling: Education completed Coordination of Nutrition Care: Continue to monitor while inpatient Plan of Care discussed with: Patient Goals: Previous Goal Met: Progressing toward Goal(s) Goals: PO intake 75% or greater, by next RD assessment Specify Other Goals: Altered GI symptoms (diarrhea) will improve Nutrition Monitoring and Evaluation: Behavioral-Environmental Outcomes: None Identified Food/Nutrient Intake Outcomes: Diet Advancement/Tolerance, Food and Nutrient Intake Physical Signs/Symptoms Outcomes: Biochemical Data, Diarrhea, GI Status, Nausea or Vomiting, Fluid Status or Edema, Nutrition Focused Physical Findings, Skin, Weight Discharge Planning: Continue current diet Ángela Banda RD Contact: *[phone] or via Secure Chat * Ryan Naik MD - 06/29/2023 9:15 AM EDT Hospitalist Progress Note 06/29/[id number]: Please page me ([phone]) for patient care issues. [phone]: Please page [facility] Hospitalist for any issues. Subjective: Admit Date: 06/23/2023 PCP: LEONID DEE MD Room#: B2-249/[facility] A Interval History: states LLQ abdominal pain actually better today. Still having pain though but notas bad as yesterday. Said she is able to tolerate bagel and it didn't hurt and also able to eat better. Asked to advance diet. No chest pain or sob. No fevers or chills. No NV Adult diet Full liquid; Low Fat (less than or equal to 50 gm/day); Low Fiber @[id number]@ 24HR INTAKE/OUTPUT: Intake/Output Summary (Last 24 hours) at 06/29/2023 0915 Last data filed at 06/29/2023 0734 Gross per 24 hour Intake 2418 ml Output -- Net 2418 ml Past Medical History: Past Medical History: Diagnosis Date Arthritis COPD exacerbation (HCC) 06/20/2022 Pneumonia 03/04/2019 Primary hypertension 06/24/2023 LABS: CBC: Recent Labs 06/27/23 0158 06/28/23 0259 06/29/23 0318 WBC 13.5* 8.5 6.5 RBC 4.41 3.77* 3.25* HGB 12.4 10.5* 9.2* HCT 38.0 32.5* 27.9* MCV 86.0 86.3 86.0 RDW 16.3* 15.9* 15.8* PLT 435 379 330 BMP: Recent Labs 06/27/2315806/28/2325806/29/23317 NA 132* 134* 135 K 4.0 3.5 3.4* CL 101 103 110* CO2 26 26 25 BUN 5* 4* 3* CREATININE 0.61 0.57 0.39* GLUCOSE 97 129* 118* CALCIUM 8.8 8.3* 7.4* ANIONGAP 5 5 1* LIVER PROFILE: Recent Labs 06/27/2315806/28/2325806/29/23317 AST 21 21 24 ALT 15 15 12 BILITOT 0.5 0.4 0.4 ALKPHOS 66 52 31* PROT 7.2 6.1* 5.4* PT/INR: No results for input(s): PROTIME , INR in the last 72 hours. CARDIAC ENZYMES: No results for input(s): TROPONINI in the last 72 hours. Procalcitonin: Lab Results Component Value Date PROCAL 0.07 06/28/2023 COVID-19 PCR: No results for input(s): COVID19 in the last 72 hours. Objective: Vitals: BP 127/63 (BP Location: Left arm, Patient Position: Lying) Pulse 73 Temp 36.6 C (97.9 F) (Temporal) Resp 18 Ht 5' 3 (1.6 m) Wt 140 lb 14 oz (63.9 kg) LMP (LMP Unknown) SpO2 92% BMI 24.95 kg/m Pulse Ox: SpO2 Av % Min: 91 % Max: 93 % Supplemental O2: General appearance: No apparent distress, appears stated age, HEENT: Eyes: No scleral icterus Oral: Tongue is semi-moist Cardiovascular: S1/S2 heard, RRR Respiratory: Clear to auscultation bilaterally Abdomen: Soft, Pain to palp of LLQ, non-distended bowel sounds positive Musculoskeletal: No obvious deformities seen Skin: No visible rashes or lesions. Medications: sodium chloride, 75 mL/hr, Last Rate: 75 mL/hr (06/28/231817) amLODIPine, 5 mg, Oral, Daily enoxaparin, 40 mg, SubCUTAneous, Daily hydrocortisone, , Topical, BID influenza, 0.5 mL, IntraMUSCular, Once mometasone-formoterol, 2 puff, Inhalation, BID piperacillin-tazobactam, 3,375 mg, IntraVENous, q8h polyethylene glycol (PEG) 3350, 17 g, Oral, Daily potassium chloride CR, 40 mEq, Oral, Once tiotropium, 1 capsule, Inhalation, Daily traZODone, 50 mg, Oral, qPM Assessment Acute uncomplicated diverticulitis - patient feels there's no improvement and states she feels worse. Ct repeated on 06/27 remains the same. Continue IV zosyn. Change to full liquid diet. Continue IVF Hypokalemia - replaced Leukocytosis HTN Hyponatremia - resolved with IVF anemia Plan Replace potassium. Advance diet to regular. Decrease IVF to 50 ml/hr. Continue IV zosyn the same. Continue diet the same and advance slowly with improvement in symptoms. Check daily labs. Called and spoke with Deja at [phone]. He has been updated and all questions answered. Toxic drug monitoring/narrow therapeutic index drug monitoring if any: # Drug name : # Route administered : # Method of monitoring : Extended Emergency Contact Information Primary Emergency Contact: Deja Cha Mobile Relation: Spouse RYAN NAIK MD Division of Hospitalist Medicine [facility]patient Medical Services[place] [place]: Epic chat * Reina Real RN - 06/28/2023 6:40 PM EDT Patient's son updated on patient's condition while he was was visiting. * Ryan Naik MD - 06/28/2023 1:49 PM EDT Images from the original note were not included. Hospitalist Progress Note 06/28/2023 [phone]: Please page me ([phone]) for patient care issues. [phone]: Please page [facility] Hospitalist for any issues. Subjective: Admit Date: 06/23/2023 PCP: LEONID DEE MD Room#: [id number] A Interval History: complains of LLQ abdominal pain, states 04/27 and feels no improvement and maybe even worse. No chest pain or sob. No fevers or chills. No NV currently but did have it before. Adult diet Regular; Low Fat (less than or equal to 50 gm/day); Low Fiber @[id number]@ 24HR INTAKE/OUTPUT: No intake or output data in the 24 hours ending 06/28/23 1350 Past Medical History: Past Medical History: Diagnosis Date Arthritis COPD exacerbation (HCC) 06/20/2022 Pneumonia 03/04/2019 Primary hypertension 06/24/2023 LABS: CBC: Recent Labs 06/26/2342106/27/2315706/28/23258 WBC 8.7 13.5* 8.5 RBC 3.97 4.41 3.77* HGB 11.3* 12.4 10.5* HCT 34.1* 38.0 32.5* MCV 85.8 86.0 86.3 RDW 15.7* 16.3* 15.9* PLT 424 435 379 BMP: Recent Labs 06/26/2342106/27/2315806/28/23258 NA 133* 132* 134* K 3.5 4.0 3.5 CL 101 101 103 CO2 30 26 26 BUN 4* 5* 4* CREATININE 0.62 0.61 0.57 GLUCOSE 86 97 129* CALCIUM 8.6 8.8 8.3* ANIONGAP 1* 5 5 LIVER PROFILE: Recent Labs 06/26/2342106/27/2315806/28/23258 AST 21 21 21 ALT 14 15 15 BILITOT 0.4 0.5 0.4 ALKPHOS 53 66 52 PROT 6.5 7.2 6.1* PT/INR: No results for input(s): PROTIME , INR in the last 72 hours. CARDIAC ENZYMES: No results for input(s): TROPONINI in the last 72 hours. Procalcitonin: Lab Results Component Value Date PROCAL 0.07 06/28/2023 COVID-19 PCR: No results for input(s): COVID19 in the last 72 hours. Objective: Vitals: BP 121/84 Pulse 76 Temp 37.2 C (98.9 F) (Temporal) Resp 18 Ht 5' 3 (1.6 m) Wt 140 lb 14 oz (63.9 kg) LMP (LMP Unknown) SpO2 91% BMI 24.95 kg/m Pulse Ox: SpO2 Av.3 % Min: 91 % Max: 97 % Supplemental O2: General appearance: No apparent distress, appears stated age, HEENT: Eyes: No scleral icterus Oral: Tongue is semi-moist Cardiovascular: S1/S2 heard, RRR Respiratory: Clear to auscultation bilaterally Abdomen: Soft, Pain to palp of LLQ, non-distended bowel sounds positive Musculoskeletal: No obvious deformities seen Skin: No visible rashes or lesions. Medications: sodium chloride, 75 mL/hr, Last Rate: 75 mL/hr (06/28/23 0019) amLODIPine, 5 mg, Oral, Daily enoxaparin, 40 mg, SubCUTAneous, Daily hydrocortisone, , Topical, BID influenza, 0.5 mL, IntraMUSCular, Once mometasone-formoterol, 2 puff, Inhalation, BID piperacillin-tazobactam, 3,375 mg, IntraVENous, q8h polyethylene glycol (PEG) 3350, 17 g, Oral, Daily tiotropium, 1 capsule, Inhalation, Daily traZODone, 50 mg, Oral, qPM Assessment Acute uncomplicated diverticulitis - patient feels there's no improvement and states she feels worse. Ct repeated on 06/27 remains the same. Continue IV zosyn. Change to full liquid diet. Continue IVF Hypokalemia - replaced Leukocytosis HTN Hyponatremia - improved with IVF anemia Plan As above. Toxic drug monitoring/narrow therapeutic index drug monitoring if any: # Drug name : # Route administered : # Method of monitoring : Extended Emergency Contact Information Primary Emergency Contact: Deja Cha Mobile Relation: Spouse RYAN NAIK MD Division of Hospitalist Medicine [facility]patient Medical Services[place] [place]: Epic chat * Blair Wing MD - 06/27/2023 1:19 PM EDT Hospitalist Progress Note 06/27/[id number]: Please secure chat me for patient care issues. [phone]: Please secure chat [facility] Hospitalist for any issues. Subjective: Admit Date: 06/23/2023 PCP: LEONID DEE MD Room#: [id number]/[id number] A Interval History: Ate an egg salad sandwich then had >10 liquid bowel movements. Abdominal pain continues to worsen. She is very weak. She is afraid to eat now. She denies chest pain, sob, cough, constipation or chills. D/w pt and RN/GI separately via secure chat Adult diet Regular; Low Fat (less than or equal to 50 gm/day); Low Fiber @[id number]@ 24HR INTAKE/OUTPUT: Intake/Output Summary (Last 24 hours) at 06/27/2023 1319 Last data filed at 06/27/2023 0330 Gross per 24 hour Intake 1850 ml Output -- Net 1850 ml Past Medical History: Past Medical History: Diagnosis Date Arthritis COPD exacerbation (HCC) 06/20/2022 Pneumonia 03/04/2019 Primary hypertension 06/24/2023 LABS: CBC: Recent Labs 06/25/2342106/26/2342106/27/23157 WBC 7.1 8.7 13.5* RBC 3.81 3.97 4.41 HGB 11.1* 11.3* 12.4 HCT 32.8* 34.1* 38.0 MCV 86.2 85.8 86.0 RDW 15.8* 15.7* 16.3* PLT 392 424 435 BMP: Recent Labs 06/25/2342106/26/2342106/27/23158 NA 137 133* 132* K 3.9 3.5 4.0 CL 106 101 101 CO2 25 30 26 BUN 4* 4* 5* CREATININE 0.64 0.62 0.61 GLUCOSE 94 86 97 CALCIUM 8.7 8.6 8.8 ANIONGAP 6 1* 5 LIVER PROFILE: Recent Labs 06/25/2342106/26/2342106/27/23158 AST 18 21 21 ALT 13 14 15 BILITOT 0.2 0.4 0.5 ALKPHOS 55 53 66 PROT 6.1* 6.5 7.2 PT/INR: No results for input(s): PROTIME , INR in the last 72 hours. CARDIAC ENZYMES: No results for input(s): TROPONINI in the last 72 hours. Procalcitonin: No results found for: PROCAL COVID-19 PCR: No results for input(s): COVID19 in the last 72 hours. Objective: Vitals: BP (!) 152/83 (BP Location: Left arm, Patient Position: Sitting) Pulse 109 Temp 36.7 C (98.1 F) (Temporal) Resp 18 Ht 5' 3 (1.6 m) Wt 140 lb 14 oz (63.9 kg) LMP (LMP Unknown) SpO2 94% BMI 24.95 kg/m Pulse Ox: SpO2 Av.5 % Min: 91 % Max: 94 % Physical Exam Vitals and nursing note reviewed. Constitutional: Appearance: She is ill-appearing. HENT: Head: Normocephalic. Eyes: Extraocular Movements: Extraocular movements intact. Cardiovascular: Rate and Rhythm: Regular rhythm. Tachycardia present. Pulses: Normal pulses. Pulmonary: Effort: Pulmonary effort is normal. Breath sounds: Normal breath sounds. Abdominal: General: Bowel sounds are normal. There is no distension. Palpations: Abdomen is soft. Tenderness: There is abdominal tenderness. Musculoskeletal: Cervical back: Neck supple. Right lower leg: No edema. Left lower leg: No edema. Skin: General: Skin is warm. Neurological: General: No focal deficit present. Mental Status: She is alert and oriented to person, place, and time. Mental status is at baseline. Sensory: No sensory deficit. Psychiatric: Mood and Affect: Mood normal. Medications: sodium chloride, 75 mL/hr, Last Rate: 75 mL/hr (06/27/23 0330) amLODIPine, 5 mg, Oral, Daily enoxaparin, 40 mg, SubCUTAneous, Daily fluconazole, 150 mg, Oral, q72h hydrocortisone, , Topical, BID influenza, 0.5 mL, IntraMUSCular, Once mometasone-formoterol, 2 puff, Inhalation, BID piperacillin-tazobactam, 3,375 mg, IntraVENous, q8h polyethylene glycol (PEG) 3350, 17 g, Oral, Daily tiotropium, 1 capsule, Inhalation, Daily traZODone, 50 mg, Oral, qPM Assessment Acute diverticulitis Continued worsening pain with diarrhea Nausea hypokalemia Leukocytosis HTN Hyponatremia anemia Medical Decision Making Will check c diff and GI PCR, CT abd/pelvis, GI is following, continue IVF, continue pain control and antiemetics, continue IV antibiotics, follow up labs, continue clears, monitor clinically, serialexams, discharge planning, see orders. -am labs, replace lytes prn -increase activity -DVT prophylaxis: [x] Lovenox [] Heparin [] SCDs [x] Encourage ambulation [] Already on Anticoagulation Anticipated Discharge - Date - 06/28-06/29 - Location - Home - Pending the following - clinical improvement, tolerating diet and when OK with GI Total time spent (which include face to face and non face to face encounters) : 47 minutes Toxic drug monitoring/narrow therapeutic index drug monitoring : # Drug name : lovenox # Route administered : SQ # Method of monitoring : daily CBC Extended Emergency Contact Information Primary Emergency Contact: Deja Cha Mobile Relation: Spouse BLAIR WING MD Division of Hospitalist Medicine [facility] PAGER: [employer] chat * Espinoza Shay MD - 06/27/2023 12:30 PM EDT Images from the original note were not included. Progress Note SUBJECTIVE: 12 BM's since last evening. Tried eating egg salad sandwich. Abdominal pain significantworse. Mild leukocytosis today. Continues to be on Zosyn. Medications @MEDCMED@ OBJECTIVE VITALS: BP (!) 152/83 (BP Location: Left arm, Patient Position: Sitting) Pulse 109 Temp 36.7 C (98.1 F) (Temporal) Resp 18 Ht 5' 3 (1.6 m) Wt 140 lb 14 oz (63.9 kg) LMP (LMP Unknown) SpO2 94% BMI 24.95 kg/m TEMPERATURE: Current - Temp: 36.7 C (98.1 F); Max - Temp Av.4 C (97.5 F) Min: 36.1 C (96.9 F) Max: 36.7 C (98.1 F) RESPIRATIONS RANGE: Resp Av.5 Min: 18 Max: 21 PULSE RANGE: Pulse Av Min: 91 Max: 109 BLOOD PRESSURE RANGE: Systolic (24hrs), Av , Min:143 , Max:152 ; Diastolic (24hrs), Av, Min:83, Max:83 PULSE OXIMETRY RANGE: SpO2 Av.5 % Min: 91 % Max: 94 % 24HR INTAKE/OUTPUT: Intake/Output Summary (Last 24 hours) at 06/27/2023 1230 Last data filed at 06/27/2023 0330 Gross per 24 hour Intake 1850 ml Output -- Net 1850 ml GENERAL: Pleasant but in moderate distress. HEENT: NCAT, PERRLA, EOMI, Scleral anicteric. CV: RRR, NL S1/S2, no murmurs. LUNGS: CTA b/l. No W/R/R. Abdomen: + BS, soft, moderate TTP, non-distended. No rebound or guarding. No hernia. Neurologic: A&O x 3, No asterixis. Non-focal. Psych: Normal affect and speech. Data Recent blood work, radiologic study and endoscopic study were reviewed with the patient. CBC: Recent Labs 06/25/2342106/26/2342106/27/23 0158 WBC 7.1 8.7 13.5* HGB 11.1* 11.3* 12.4 HCT 32.8* 34.1* 38.0 PLT 392 424 435 HEPATIC: Recent Labs 06/26/2342106/27/23 0159 AST 21 21 ALT 14 15 BILITOT 0.4 0.5 ALKPHOS 53 66 LIPASE/AMYLASE: No results for input(s): AMYLASE , LIPASE in the last 72 hours. LACTATE: No lab exists for component: LACTA BNP: No results for input(s): BNP in the last 72 hours. INR: No results for input(s): INR in the last 72 hours. ASSESSMENT AND PLAN Acute uncomplicated diverticulitis - CT scan on Monday showed descending/sigmoid involvement, initial leukocytosis now worsened, on zosyn, worsening abdominal pain overnight after several loose BM's - check Cdiff and GI PCR - will reorder CT abdomen to assess for any changes given worsening abdominal pain - continue IV antibiotics for now - continue pain control, advance diet as patient tolerates * Blair Wing MD - 06/26/2023 12:12 PM EDT Images from the original note were not included. Hospitalist Progress Note 06/26/[id number]: Please secure chat me for patient care issues. [phone]: Please secure chat [facility] Hospitalist for any issues. Subjective: Admit Date: 06/23/2023 PCP: LEONID DEE MD Room#: B2-249/B2-249 A Interval History: She says her LLQ pain has worsened overnight. She had three Bms. She has intermittent nausea and chills. She is on liquids. No emesis. She denies chest pain, sob, cough, constipation or chills. D/w pt Adult diet Clear liquid @[id number]@ 24HR INTAKE/OUTPUT: Intake/Output Summary (Last 24 hours) at 06/26/2023 1212 Last data filed at 06/26/2023 0450 Gross per 24 hour Intake 3894 ml Output -- Net 3894 ml Past Medical History: Past Medical History: Diagnosis Date Arthritis COPD exacerbation (HCC) 06/20/2022 Pneumonia 03/04/2019 Primary hypertension 06/24/2023 LABS: CBC: Recent Labs 06/24/2352406/25/2342106/26/23421 WBC 9.4 7.1 8.7 RBC 4.12 3.81 3.97 HGB 12.1 11.1* 11.3* HCT 35.7 32.8* 34.1* MCV 86.6 86.2 85.8 RDW 16.0* 15.8* 15.7* PLT 428 392 424 BMP: Recent Labs 06/24/2352406/25/2342106/26/23421 NA 132* 137 133* K 3.7 3.9 3.5 CL 105 106 101 CO2 25 25 30 BUN 10 4* 4* CREATININE 0.66 0.64 0.62 GLUCOSE 103* 94 86 CALCIUM 8.4 8.7 8.6 ANIONGAP 2* 6 1* LIVER PROFILE: Recent Labs 06/24/2352406/25/2342106/26/23421 AST 19 18 21 ALT 14 13 14 BILITOT 0.2 0.2 0.4 ALKPHOS 56 55 53 PROT 6.5 6.1* 6.5 PT/INR: No results for input(s): PROTIME , INR in the last 72 hours. CARDIAC ENZYMES: No results for input(s): TROPONINI in the last 72 hours. Procalcitonin: No results found for: PROCAL COVID-19 PCR: No results for input(s): COVID19 in the last 72 hours. Objective: Vitals: BP (!) 141/98 (BP Location: Left arm, Patient Position: Lying) Pulse 96 Temp 36.4 C (97.6 F) (Temporal) Resp 18 Ht 5' 3 (1.6 m) Wt 140 lb 14 oz (63.9 kg) LMP (LMP Unknown) [id number]% BMI 24.95 kg/m Pulse Ox: SpO2 Av.7 % Min: 92 % Max: 94 % Physical Exam Vitals and nursing note reviewed. Constitutional: General: She is not in acute distress. HENT: Head: Normocephalic and atraumatic. Eyes: Extraocular Movements: Extraocular movements intact. Pupils: Pupils are equal, round, and reactive to light. Cardiovascular: Rate and Rhythm: Normal rate and regular rhythm. Pulses: Normal pulses. Pulmonary: Effort: Pulmonary effort is normal. Breath sounds: Normal breath sounds. Abdominal: General: Bowel sounds are normal. There is no distension. Palpations: Abdomen is soft. Tenderness: There is abdominal tenderness. There is guarding. There is no rebound. Musculoskeletal: General: Normal range of motion. Cervical back: Normal range of motion and neck supple. Right lower leg: No edema. Left lower leg: No edema. Skin: General: Skin is warm. Neurological: General: No focal deficit present. Mental Status: She is alert and oriented to person, place, and time. Mental status is at baseline. Sensory: No sensory deficit. Psychiatric: Mood and Affect: Mood normal. Medications: sodium chloride, 75 mL/hr, Last Rate: 75 mL/hr (06/26/23 0450) amLODIPine, 5 mg, Oral, Daily enoxaparin, 40 mg, SubCUTAneous, Daily fluconazole, 150 mg, Oral, q72h hydrocortisone, , Topical, BID influenza, 0.5 mL, IntraMUSCular, Once mometasone-formoterol, 2 puff, Inhalation, BID piperacillin-tazobactam, 3,375 mg, IntraVENous, q8h polyethylene glycol (PEG) 3350, 17 g, Oral, Daily potassium chloride CR, 40 mEq, Oral, Once tiotropium, 1 capsule, Inhalation, Daily traZODone, 50 mg, Oral, qPM Assessment Acute diverticulitis Worsened pain today Nausea hypokalemia Leukocytosis HTN Hyponatremia anemia Medical Decision Making Continue IVF, continue pain control and antiemetics, IV antibiotics, replace K, GI evaluation, follow up labs, continue clears, monitor clinically, serial exams, discharge planning, see orders. -am labs, replace lytes prn -increase activity -DVT prophylaxis: [x] Lovenox [] Heparin [] SCDs [x] Encourage ambulation [] Already on Anticoagulation Anticipated Discharge - Date - 06/27-06/28 - Location - Home - Pending the following - clinical improvement, tolerating diet and when OK with GI Total time spent (which include face to face and non face to face encounters) : 46 minutes Toxic drug monitoring/narrow therapeutic index drug monitoring : # Drug name : lovenox # Route administered : SQ # Method of monitoring : daily CBC Extended Emergency Contact Information Primary Emergency Contact: Deja Cha Mobile Relation: Spouse BLAIR WING MD Division of Hospitalist Medicine [facility] PAGER: Epic chat * Iftikhar Dai MD - 06/25/2023 1:07 PM EDT Images from the original note were not included. Hospitalist Progress Note 06/25/2023 [phone]: Please secure chat [place] for patient care issues. [phone]: Please secure chat [facility] Hospitalist for any issues. Subjective: Admit Date: 06/23/2023 PCP: LEONID DEE MD Room#: B2-249/B2-249 A Interval History: Patient is sitting on the bed comfortably, still complaining of left lower quadrant pain, denies any nausea or vomiting Tolerating clear liquids. No other significant overnight issues. Adult diet Clear liquid @[id number]@ 24HR INTAKE/OUTPUT: Intake/Output Summary (Last 24 hours) at 06/25/2023 1307 Last data filed at 06/24/2023 2110 Gross per 24 hour Intake 100 ml Output -- Net 100 ml Past Medical History: Past Medical History: Diagnosis Date Arthritis COPD exacerbation (HCC) 06/20/2022 Pneumonia 03/04/2019 Primary hypertension 06/24/2023 LABS: CBC: Recent Labs 06/23/23 1551 06/24/2352406/25/23421 WBC 11.9* 9.4 7.1 RBC 4.73 4.12 3.81 HGB 13.8 12.1 11.1* HCT 40.7 35.7 32.8* MCV 86.2 86.6 86.2 RDW 16.0* 16.0* 15.8* PLT 457* 428 392 BMP: Recent Labs 06/23/23 1551 06/24/2352406/25/23421 NA 136 132* 137 K 3.7 3.7 3.9 CL 102 105 106 CO2 27 25 25 BUN 10 10 4* CREATININE 0.55 0.66 0.64 GLUCOSE 143* 103* 94 CALCIUM 9.3 8.4 8.7 ANIONGAP 8 2* 6 LIVER PROFILE: Recent Labs 06/23/23 1551 06/24/2352406/25/23421 AST 26 19 18 ALT 17 14 13 BILITOT 0.2 0.2 0.2 ALKPHOS 69 56 55 PROT 7.4 6.5 6.1* PT/INR: No results for input(s): PROTIME , INR in the last 72 hours. CARDIAC ENZYMES: No results for input(s): TROPONINI in the last 72 hours. Procalcitonin: No results found for: PROCAL COVID-19 PCR: No results for input(s): COVID19 in the last 72 hours. Objective: Vitals: BP 120/68 Pulse 62 Temp 36.3 C (97.3 F) (Temporal) Resp 18 Ht 5' 3 (1.6 m) Wt 140 lb 14 oz (63.9 kg) LMP (LMP Unknown) SpO2 95% BMI 24.95 kg/m Pulse Ox: SpO2 Av.5 % Min: 95 % Max: 96 % Physical Exam Constitutional: General: Distressed: Moderate distress, stoic. Appearance: Normal appearance. She is normal weight. Comments: Pleasant, cooperative, understates pain HENT: Head: Atraumatic. Eyes: Extraocular Movements: Extraocular movements intact. Cardiovascular: Rate and Rhythm: Tachycardia present. Pulmonary: Effort: Pulmonary effort is normal. Abdominal: Tenderness: There is abdominal tenderness (Focal to LLQ w/o rebound). Musculoskeletal: General: Normal range of motion. Skin: General: Skin is warm and dry. Capillary Refill: Capillary refill takes less than 2 seconds. Neurological: General: No focal deficit present. Mental Status: She is alert and oriented to person, place, and time. Psychiatric: Mood and Affect: Mood normal. Behavior: Behavior normal. Thought Content: Thought content normal. Judgment: Judgment normal. Medications: sodium chloride, 75 mL/hr, Last Rate: 75 mL/hr (06/25/23 1025) amLODIPine, 5 mg, Oral, Daily enoxaparin, 40 mg, SubCUTAneous, Daily fluconazole, 150 mg, Oral, q72h influenza, 0.5 mL, IntraMUSCular, Once mometasone-formoterol, 2 puff, Inhalation, BID piperacillin-tazobactam, 3,375 mg, IntraVENous, q8h polyethylene glycol (PEG) 3350, 17 g, Oral, Daily tiotropium, 1 capsule, Inhalation, Daily traZODone, 50 mg, Oral, qPM Assessment Intractable abdominal pain Acute diverticulitis. Leukocytosis Mild hyponatremia. History of: COPD no signs of exacerbation. Medical Decision Making Patient is still complaining of left lower quadrant pain. Tolerating her clear liquids. Denies any nausea or vomitings. Continuing IV antibiotics with Zosyn. Continue symptomatic pain medications and Zofran. Leukocytosis resolved. Hyponatremia is stable. Continue IV fluids. Follow-up CBC BMP ordered. -am labs, replace lytes prn -increase activity -DVT prophylaxis: [x] Lovenox [] Heparin [] SCDs [x] Encourage ambulation [] Already on Anticoagulation Anticipated Discharge - Date -1 to 2 days - Location - Home - Pending the following -clinical improvement Total time spent (which include face to face and non face to face encounters) : 25 minutes Toxic drug monitoring/narrow therapeutic index drug monitoring : # Drug name : # Route administered : # Method of monitoring : Extended Emergency Contact Information Primary Emergency Contact: Deja Cha Mobile Relation: Spouse Iftikhar Dai MD Division of Hospitalist Medicine [employer] PAGER: SilkStart chat * Roz Davis, RD - 06/25/2023 9:58 AM EDT Nutrition Assessment Type and Reason for Visit: Initial, Positive Nutrition Screen (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 per MNT protocol, initiated apple Ensure clear (Ensure Clear provides 240 kcals, 8 g protein per serving) but patient dislikes. Does agree to trial chocolate Ensure plus high protein bid (350 ronal, 20gm pro/serving) Please document PO intakes-diet and ONS- consistently in the flowsheet to better assess intake adequacy. Encourage yogurt ON FLD- lactobacillus Monitor labs, status, intakes,weights to reassess. 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 prior to that) Weight Loss: Unable to assess Body Fat Loss: Unable to assess Muscle Mass Loss: Unable to assess Fluid Accumulation: No significant fluid accumulation [employer] Strength: Not Performed Nutrition Assessment: PER MD-Admit Date: 06/23/2023 PCP: LEONID DEE MD CHIEF COMPLAINT: LLQ abdominal pain Reason for Admission: Diverticulitis w/ failed outpatient treatment History Obtained From: patient, er staff, chart HISTORY OF PRESENT ILLNESS: Priscila is a 67 y.o. female with past medical history below who presents with chief complaint listed above. Worsening LLQ pain despite augmentin therapy outpatient Nausea/vomiting, abdominal pain. Stoic demeanour pleasant cooperative Tachycardia in ED, initiated on zosyn therapy.CT revealed Acute diverticulitis involving the the distal descending colon extending into the sigmoid colon. No focal fluid collection or evidence of perforation. has copd Estimated Daily Nutrient Needs: Energy Requirements Based On: Kcal/kg Weight Used for Energy Requirements: Current Weight for Energy Calculation (kg): 63.9 kg Total Energy Requirements (kcals/day): 25-30 or 9424-7732 Weight Used for Protein Requirements: Current Weight in Kg Used for Protein Requirements: 63.9 kg Estimated Total Protein (g/day): 1-2 or 64-128 Estimated Daily Total Fluid (ml/day): or per md Nutrition Related Findings: 06/24 nausea, meka 19, un 4 low, alb 3.1 low, nausea , 06/23 bm Wound Type: None Current Nutrition Therapies: Adult diet Clear liquid Current Oral Intake Average Meal Intake: 1-25%, 26-50% Average Supplements Intake: Refusing to take (disliked Ensure clear) Anthropometric Measures: Height: 160 cm (5' 3 ) Current Body Weight: 63.9 kg (140 lb 14 oz) Weight Source: Bed Scale (06/24) Usual Body Weight: 65.3 kg (144 lb) (05/01) % Weight Change (Calculated): -2.2 [place] Body Weight (lbs) (Calculated): 115 lbs [place] Body Weight (Kg) (Calculated): 52 kg % [place] Body Weight (Calculated): 122.5 % BMI (kg/m2) (Calculated): 25 BMI Categories: Normal Weight (BMI 18.5-24.9) Nutrition Diagnosis: Inadequate protein-energy intake, Increased nutrient needs related to altered GI function, altered GI structure, other (comment), impaired nutrient utilization (diverticulitis) as evidenced by nausea, constipation, poor intake prior to admission, intake 0-25% Nutrition Interventions: Nutrition Education/Counseling: Education initiated (protein) Coordination of Nutrition Care: Continue to monitor while inpatient, Feeding Assistance/EnvironmentChange Goals: Goals: PO intake 50% or greater, other (specify) Specify Other Goals: will have functional gi tract -tolerate oral nutrition - >75% of needs Nutrition Monitoring and Evaluation: Behavioral-Environmental Outcomes: None Identified Food/Nutrient Intake Outcomes: Diet Advancement/Tolerance, Supplement Intake Physical Signs/Symptoms Outcomes: Biochemical Data, Constipation, GI Status, Nausea or Vomiting, Fluid Status or Edema, Hemodynamic Status, Meal Time Behavior, Nutrition Focused Physical Findings, Skin, Weight Discharge Planning: Too soon to determine (low fiber) Roz Davis RD Contact: *[phone] or secure chat * Roz Davis RD - 06/25/2023 8:29 AM EDT Nutrition note -dislikes Ensure clear - will discontinue . Full note to follow . * Iftikhar Dai MD - 06/24/2023 2:55 PM EDT Images from the original note were not included. Hospitalist Progress Note 06/24/[id number]: Please secure chat me for patient care issues. [phone]: Please secure chat [facility] Hospitalist for any issues. Subjective: Admit Date: 06/23/2023 PCP: LEONID DEE MD Room#: B2-249/B2-249 A Interval History: Patient is lying on the bed, still complaining of left lower quadrant pain denies any nausea or vomitings. No other significant overnight issues. Adult diet Clear liquid @[id number]@ 24HR INTAKE/OUTPUT: No intake or output data in the 24 hours ending 06/24/23 1455 Past Medical History: Past Medical History: Diagnosis Date Arthritis COPD exacerbation (HCC) 06/20/2022 Pneumonia 03/04/2019 Primary hypertension 06/24/2023 LABS: CBC: Recent Labs 06/23/23 1551 06/24/23 0525 WBC 11.9* 9.4 RBC 4.73 4.12 HGB 13.8 12.1 HCT 40.7 35.7 MCV 86.2 86.6 RDW 16.0* 16.0* PLT 457* 428 BMP: Recent Labs 06/23/23 1551 06/24/23 0525 NA 136 132* K 3.7 3.7 CL 102 105 CO2 27 25 BUN 10 10 CREATININE 0.55 0.66 GLUCOSE 143* 103* CALCIUM 9.3 8.4 ANIONGAP 8 2* LIVER PROFILE: Recent Labs 06/23/23 1551 06/24/23 0525 AST 26 19 ALT 17 14 BILITOT 0.2 0.2 ALKPHOS 69 56 PROT 7.4 6.5 PT/INR: No results for input(s): PROTIME , INR in the last 72 hours. CARDIAC ENZYMES: No results for input(s): TROPONINI in the last 72 hours. Procalcitonin: No results found for: PROCAL COVID-19 PCR: No results for input(s): COVID19 in the last 72 hours. Objective: Vitals: BP 138/84 (BP Location: Left arm, Patient Position: Sitting) Pulse 69 Temp 36.4 C (97.6F) (Temporal) Resp 16 Ht 5' 3 (1.6 m) Wt 140 lb 14 oz (63.9 kg) LMP (LMP Unknown) SpO2 93% BMI 24.95 kg/m Pulse Ox: SpO2 Av.8 % Min: 93 % Max: 95 % Physical Exam Constitutional: General: Distressed: Moderate distress, stoic. Appearance: Normal appearance. She is normal weight. Comments: Pleasant, cooperative, understates pain HENT: Head: Atraumatic. Eyes: Extraocular Movements: Extraocular movements intact. Cardiovascular: Rate and Rhythm: Tachycardia present. Pulmonary: Effort: Pulmonary effort is normal. Abdominal: Tenderness: There is abdominal tenderness (Focal to LLQ w/o rebound). Musculoskeletal: General: Normal range of motion. Skin: General: Skin is warm and dry. Capillary Refill: Capillary refill takes less than 2 seconds. Neurological: General: No focal deficit present. Mental Status: She is alert and oriented to person, place, and time. Psychiatric: Mood and Affect: Mood normal. Behavior: Behavior normal. Thought Content: Thought content normal. Judgment: Judgment normal. Medications: sodium chloride, 125 mL/hr, Last Rate: 125 mL/hr (06/24/23 0920) amLODIPine, 5 mg, Oral, Daily enoxaparin, 40 mg, SubCUTAneous, Daily [START ON 06/25/2023] influenza, 0.5 mL, IntraMUSCular, Once mometasone-formoterol, 2 puff, Inhalation, BID piperacillin-tazobactam, 3,375 mg, IntraVENous, q8h polyethylene glycol (PEG) 3350, 17 g, Oral, Daily tiotropium, 1 capsule, Inhalation, Daily traZODone, 50 mg, Oral, qPM Assessment Intractable abdominal pain Acute diverticulitis. Leukocytosis Mild hyponatremia. History of: COPD no signs of exacerbation. Medical Decision Making Patient is still complaining of left lower quadrant pain. Tolerating her clear liquids. Denies any nausea or vomitings. Continuing IV antibiotics with Zosyn. Continue symptomatic pain medications and Zofran. Leukocytosis resolved. Hyponatremia is stable. Continue IV fluids. Follow-up CBC BMP ordered. -am labs, replace lytes prn -increase activity -DVT prophylaxis: [x] Lovenox [] Heparin [] SCDs [x] Encourage ambulation [] Already on Anticoagulation Anticipated Discharge - Date -1 to 2 days - Location - Home - Pending the following -clinical improvement Total time spent (which include face to face and non face to face encounters) : 25 minutes Toxic drug monitoring/narrow therapeutic index drug monitoring : # Drug name : # Route administered : # Method of monitoring : Extended Emergency Contact Information Primary Emergency Contact: Deja Cha Mobile Relation: Spouse Iftikhar Dai MD Division of Hospitalist Medicine Results [facility] PAGER: Epic chat documented in this [facility]10-23-2023 Note* Care Coordination - Tiffany Bansal RN - 07/10/2023 12:53 PM EDT Images from the original note were not included. Care Management Progress Note Patient with discharge order placed. No needs. will transport home. Discharge Milestones and Delays Expected Date/Time: 07/10/2023 Morning Disposition: Home or Self Care Transport status: No current request Discharge Milestones Completed Place discharge order Complete med reconciliation Case mgmt discharge readiness Expected Discharge History Expected Date/Time Set By Reviewed At 07/10/2023 Morning Ryan Naik MD 07/10/2023 11:51 AM TCC estimate 07/10/2023 Tiffany Bansal RN 07/10/2023 8:41 AM 07/08/2023 Tiffany Bansal RN 07/07/2023 8:26 AM 07/07/2023 Tiffany Bansal RN 07/06/2023 8:30 AM 07/06/2023 Tiffany Bansal RN 07/05/2023 8:28 AM 07/04/2023 Tiffany Bansal RN 07/03/2023 8:08 AM TCC estimate IV antibiotic completion 07/04/2023 Tiffany Bansal RN 06/30/2023 2:35 PM 06/30/2023 Tiffany Bansal RN 06/30/2023 8:13 AM TCC estimate 06/30/2023 Tiffany Bansal RN 06/29/2023 7:54 AM 06/29/2023 Tiffany Bansal RN 06/28/2023 8:17 AM 06/28/2023 Tiffany Bansal RN 06/27/2023 7:48 AM 06/27/2023 Tiffany Bansal RN 06/26/2023 8:14 AM 06/26/2023 Klever Crawford MD 06/24/2023 3:54 AM 06/26/2023 Thu Hogue MD 06/23/2023 9:18 PM Length of Stay (Days): 17 GMLOS[facility] 3.9 [id number]* Care Coordination - Tiffany Bansal RN - 07/10/2023 12:53 PM EDT Images from the original note were not included. Care Management Progress Note Patient with discharge order placed. No needs. will transport home. Discharge Milestones and Delays Expected Date/Time: 07/10/2023 Morning Disposition: Home or Self Care Transport status: No current request Discharge Milestones Completed Place discharge order Complete med reconciliation Case mgmt discharge readiness Expected Discharge History Expected Date/Time Set By Reviewed At 07/10/2023 Morning Ryan Naik MD 07/10/2023 11:51 AM TCC estimate 07/10/2023 Tiffany Bansal RN 07/10/2023 8:41 AM 07/08/2023 Tiffany Bansal RN 07/07/2023 8:26 AM 07/07/2023 Tiffany Bansal RN 07/06/2023 8:30 AM 07/06/2023 Tiffany Bansal RN 07/05/2023 8:28 AM 07/04/2023 Tiffany Bansal RN 07/03/2023 8:08 AM TCC estimate IV antibiotic completion 07/04/2023 Tiffany Bansal RN 06/30/2023 2:35 PM 06/30/2023 Tiffany Bansal RN 06/30/2023 8:13 AM TCC estimate 06/30/2023 Tiffany Bansal RN 06/29/2023 7:54 AM 06/29/2023 Tiffany Bansal RN 06/28/2023 8:17 AM 06/28/2023 Tiffany Bansla RN 06/27/2023 7:48 AM 06/27/2023 Tiffany Bansal RN 06/26/2023 8:14 AM 06/26/2023 Klever Crawford MD 06/24/2023 3:54 AM 06/26/2023 Thu Hogue MD 06/23/2023 9:18 PM Length of Stay (Days): 17 GMLOS: 3.9 [id number] Miscellaneous Notes* Care Coordination - Tiffany Bansal RN - 07/10/2023 12:53 PM EDT Images from the original note were not included. Care Management Progress Note Patient with discharge order placed. No needs. will transport home. Discharge Milestones and Delays Expected Date/Time: 07/10/2023 Morning Disposition: Home or Self Care Transport status: No current request Discharge Milestones Completed Place discharge order Complete med reconciliation Case mgmt discharge readiness Expected Discharge History Expected Date/Time Set By Reviewed At 07/10/2023 Morning Ryan Naik MD 07/10/2023 11:51 AM TCC estimate 07/10/2023 Tiffany Bansal RN 07/10/2023 8:41 AM 07/08/2023 Tiffany Bansal RN 07/07/2023 8:26 AM 07/07/2023 Tiffany Bansal RN 07/06/2023 8:30 AM 07/06/2023 Tiffany Bansal RN 07/05/2023 8:28 AM 07/04/2023 Tiffany Bansal RN 07/03/2023 8:08 AM TCC estimate IV antibiotic completion 07/04/2023 Tiffany Bansal RN 06/30/2023 2:35 PM 06/30/2023 Tiffany Bansal RN 06/30/2023 8:13 AM TCC estimate 06/30/2023 Tiffany Bansal RN 06/29/2023 7:54 AM 06/29/2023 Tiffany Bansal RN 06/28/2023 8:17 AM 06/28/2023 Tiffany Bansal RN 06/27/2023 7:48 AM 06/27/2023 Tiffany Bansal RN 06/26/2023 8:14 AM 06/26/2023 Klever Crawford MD 06/24/2023 3:54 AM 06/26/2023 Thu Hogue MD 06/23/2023 9:18 PM Length of Stay (Days): 17 GMLOS: 3.9 * Care Coordination - Tiffany Bansal RN - 07/07/2023 2:28 PM EDT Images from the original note were not included. Care Management Progress Note Patient remains on 2E due to diverticulitis. Clinical updates: Patient on IV antibiotics, diet being advanced to a full liquid. General surgery following. Discharge plan: home when medically stable. Discharge obstacles: none noted. TCC to continue to follow. Discharge Milestones and Delays Expected Date/Time: 07/08/[address] discharge order Complete med reconciliation Case mgmt discharge readiness Clinical Stability Diagnsotic Workup Expected Discharge History Expected Date/Time Set By Reviewed At 07/08/2023 Tiffany Bansal RN 07/07/2023 8:26 AM TCC estimate 07/07/2023 Tiffany Bansal RN 07/06/2023 8:30 AM 07/06/2023 Tiffany Bansal RN 07/05/2023 8:28 AM 07/04/2023 Tiffany Bansal RN 07/03/2023 8:08 AM TCC estimate IV antibiotic completion 07/04/2023 Tiffany Bansal RN 06/30/2023 2:35 PM 06/30/2023 Tiffany Bansal RN 06/30/2023 8:13 AM TCC estimate 06/30/2023 Tiffany Bansal RN 06/29/2023 7:54 AM 06/29/2023 Tiffany Bnasal RN 06/28/2023 8:17 AM 06/28/2023 Tiffany Bansal RN 06/27/2023 7:48 AM 06/27/2023 Tiffany Bansal RN 06/26/2023 8:14 AM 06/26/2023 Klever Crawford MD 06/24/2023 3:54 AM 06/26/2023 Thu Hogue MD 06/23/2023 9:18 PM Length of Stay (Days): 14 GMLOS: 3.9 * Care Coordination - Tiffany Bansal RN - 07/06/2023 2:50 PM EDT Images from the original note were not included. Care Management Progress Note Patient remains on 2E due to diverticulitis. Clinical updates: Patient with abscess, general surgery states no surgical intervention, may need to be drained by IR. Patient still having abdominal pain. Back on IV antibiotics. Discharge plan: home when medically stable. Discharge obstacles: none noted. TCC to continue to follow. Discharge Milestones and Delays Expected Date/Time: 07/07/[address] discharge order Complete med reconciliation Case mgmt discharge readiness Clinical Stability Diagnsotic Workup Expected Discharge History Expected Date/Time Set By Reviewed At 07/07/2023 Tiffany Bansal RN 07/06/2023 8:30 AM TCC estimate 07/06/2023 Tiffany Bansal RN 07/05/2023 8:28 AM 07/04/2023 Tiffany Bansal RN 07/03/2023 8:08 AM TCC estimate IV antibiotic completion 07/04/2023 Tiffany Bansal RN 06/30/2023 2:35 PM 06/30/2023 Tiffany Bansal RN 06/30/2023 8:13 AM TCC estimate 06/30/2023 Tiffany Bansal RN 06/29/2023 7:54 AM 06/29/2023 Tiffany Bansal RN 06/28/2023 8:17 AM 06/28/2023 Tiffany Bansal RN 06/27/2023 7:48 AM 06/27/2023 Tiffany Bansal RN 06/26/2023 8:14 AM 06/26/2023 Klever Crawford MD 06/24/2023 3:54 AM 06/26/2023 Thu Hogue MD 06/23/2023 9:18 PM Length of Stay (Days): 13 GMLOS: 3.9 * Care Plan - Kary Liang RN - 07/05/2023 10:07 PM EDT Problem: Pain - Adult Goal: Verbalizes/displays adequate comfort level or baseline comfort level Outcome: Progressing Problem: Safety - Adult Goal: Free from fall injury Outcome: Progressing The patient is Moderately Stable - Low risk of patient condition declining or worsening The patient's goals for the shift include sleep The clinical goals for the shift include no pain * Care Coordination - Tiffany Bansal RN - 07/05/2023 1:36 PM EDT Images from the original note were not included. Care Management Progress Note TRANSITIONAL CARE DAILY NOTE/UPDATES: Patient remains on 2E due to diverticulitis. Clinical updates: Patient to have a CT with contrast of abdomen today. Patient still having abdominal pain. On PO antibiotics. Discharge plan: home when medically stable. Spoke with patient at bedside, she denied any needs, she states she is hoping to go home today after CT scan. Discharge obstacles: none noted. TCC to continue to follow. Discharge Milestones and Delays Expected Date/Time: 07/06/[address] discharge order Complete med reconciliation Case mgmt discharge readiness Clinical Stability Diagnsotic Workup Expected Discharge History Expected Date/Time Set By Reviewed At 07/06/2023 Tiffany Bansal RN 07/05/2023 8:28 AM TCC estimate 07/04/2023 Tiffany Bansal RN 07/03/2023 8:08 AM TCC estimate IV antibiotic completion 07/04/2023 Tiffany Bansal RN 06/30/2023 2:35 PM 06/30/2023 Tiffany Bansal RN 06/30/2023 8:13 AM TCC estimate 06/30/2023 Tiffany Bansal RN 06/29/2023 7:54 AM 06/29/2023 Tiffany Bansal RN 06/28/2023 8:17 AM 06/28/2023 Tiffany Bansal RN 06/27/2023 7:48 AM 06/27/2023 Tiffany Bansal RN 06/26/2023 8:14 AM 06/26/2023 Klever Crawford MD 06/24/2023 3:54 AM 06/26/2023 Thu Hogue MD 06/23/2023 9:18 PM Length of Stay (Days): 12 GMLOS: 2.6 * Care Plan - Kary Liang RN - 07/04/2023 11:22 PM EDT Problem: Pain - Adult Goal: Verbalizes/displays adequate comfort level or baseline comfort level Outcome: Progressing Problem: Safety - Adult Goal: Free from fall injury Outcome: Progressing The patient is Moderately Stable - Low risk of patient condition declining or worsening The patient's goals for the shift include sleep The clinical goals for the shift include no pain * Care Coordination - Tiffany Bansal RN - 07/03/2023 12:39 PM EDT Images from the original note were not included. Care Management Progress Note Patient remains on 2E due to diverticulitis. Clinical updates: Patient on IV antibiotics until 07/04. Diet regular low fat, low fiber, abdominalpain after eating pizza. General Surgery consulted. GI consulted. Discharge plan: home when medically stable. Discharge obstacles: none noted. TCC to continue to follow. Discharge Milestones and Delays Expected Date/Time: 07/04/[address] discharge order Complete med reconciliation Case mgmt discharge readiness Clinical Stability Diagnsotic Workup Expected Discharge History Expected Date/Time Set By Reviewed At 07/04/2023 Tiffany Bansal RN 07/03/2023 8:08 AM TCC estimate IV antibiotic completion 07/04/2023 Tiffany Bansal RN 06/30/2023 2:35 PM 06/30/2023 Tiffany Bansal RN 06/30/2023 8:13 AM TCC estimate 06/30/2023 Tiffany Bansal RN 06/29/2023 7:54 AM 06/29/2023 Tiffany Bansal RN 06/28/2023 8:17 AM 06/28/2023 Tiffany Bansal RN 06/27/2023 7:48 AM 06/27/2023 Tiffany Bansal RN 06/26/2023 8:14 AM 06/26/2023 Klever Crawford MD 06/24/2023 3:54 AM 06/26/2023 Thu Hogue MD 06/23/2023 9:18 PM Length of Stay (Days): 10 GMLOS: 2.6 * Care Plan - Isa Bustos RN - 07/01/2023 6:49 PM EDT The patient is Moderately Stable - Low risk of patient condition declining or worsening The patient's goals for the shift include sleep The clinical goals for the shift include no pain Over the shift, the patient did not make progress toward the following goals. Barriers to progression include discomfort. Recommendations to address these barriers include continue treatment as prescribed. * Care Coordination - Tiffany Bansal RN - 06/30/2023 2:35 PM EDT Images from the original note were not included. Care Management Progress Note Patient remains on 2E due to diverticulitis. Clinical updates: Patient on IV antibiotics, IV fluids. Diet advanced back to regular GI bland. Still having abdominal pain, but not with eating. General Surgery consulted. GI consulted. Plans for possible IV antibiotics until 07/04. Discharge plan: home when medically stable. Discharge obstacles: none noted. TCC to continue to follow. Discharge Milestones and Delays Expected Date/Time: 07/04/[address] discharge order Complete med reconciliation Case mgmt discharge readiness Clinical Stability Diagnsotic Workup Expected Discharge History Expected Date/Time Set By Reviewed At 07/04/2023 Tiffany Bansal RN 06/30/2023 2:35 PM TCC estimate IV antibiotic completion 06/30/2023 Tiffany Bansal RN 06/30/2023 8:13 AM TCC estimate 06/30/2023 Tiffany Bansal RN 06/29/2023 7:54 AM 06/29/2023 Tiffany Bansal RN 06/28/2023 8:17 AM 06/28/2023 Tiffany Bansal RN 06/27/2023 7:48 AM 06/27/2023 Tiffany Bansal RN 06/26/2023 8:14 AM 06/26/2023 Klever Crawford MD 06/24/2023 3:54 AM 06/26/2023 Thu Hogue MD 06/23/2023 9:18 PM Length of Stay (Days): 7 GMLOS: 2.6 * Care Coordination - Tiffany Bansal RN - 06/29/2023 2:00 PM EDT Images from the original note were not included. Care Management Progress Note Patient remains on 2E due to diverticulitis. Clinical updates: Patient on IV antibiotics, IV fluids. Diet was regular, was changed back to full liquid, as patient was having N/V. GI consulted. Discharge plan: home when medically stable. Discharge obstacles: none noted. TCC to continue to follow. Discharge Milestones and Delays Expected Date/Time: 06/30/[address] discharge order Complete med reconciliation Case mgmt discharge readiness Clinical Stability Diagnsotic Workup Expected Discharge History Expected Date/Time Set By Reviewed At 06/30/2023 Tiffany Bansal RN 06/29/2023 7:54 AM TCC estimate 06/29/2023 Tiffany Bansal RN 06/28/2023 8:17 AM 06/28/2023 Tiffany Bansal RN 06/27/2023 7:48 AM 06/27/2023 Tiffany Bansal RN 06/26/2023 8:14 AM 06/26/2023 Klever Crawford MD 06/24/2023 3:54 AM 06/26/2023 Thu Hogue MD 06/23/2023 9:18 PM Length of Stay (Days): 6 GMLOS: 2.6 * Care Coordination - Tiffany Bansal RN - 06/28/2023 3:16 PM EDT Images from the original note were not included. Care Management Progress Note Patient remains on 2E due to diverticulitis. Clinical updates: Patient on IV antibiotics, IV fluids. Sodium today was 134. Patient to have another CT of abdomen. GI consulted. Discharge plan: home when medically stable. Discharge obstacles: none noted. TCC to continue to follow. Discharge Milestones and Delays Expected Date/Time: 06/29/[address] discharge order Complete med reconciliation Case mgmt discharge readiness Clinical Stability Diagnsotic Workup Expected Discharge History Expected Date/Time Set By Reviewed At 06/29/2023 Tiffany Bansal RN 06/28/2023 8:17 AM TCC estimate 06/28/2023 Tiffany Bansal RN 06/27/2023 7:48 AM 06/27/2023 Tiffany Bansal RN 06/26/2023 8:14 AM 06/26/2023 Klever Crawford MD 06/24/2023 3:54 AM 06/26/2023 Thu Hogue MD 06/23/2023 9:18 PM Length of Stay (Days): 5 GMLOS: 2.6 * Care Coordination - Tiffany Bansal RN - 06/27/2023 7:48 AM EDT Images from the original note were not included. Care Management Progress Note Patient remains on 2E due to diverticulitis. Clinical updates: Patient on IV antibiotics, IV fluids. Sodium today was 132, WBC elevated at 13.5. GI consulted. Discharge plan: home when medically stable. Discharge obstacles: none noted. TCC to continue to follow. Discharge Milestones and Delays Expected Date/Time: 06/28/[address] discharge order Complete med reconciliation Case mgmt discharge readiness Clinical Stability Diagnsotic Workup Expected Discharge History Expected Date/Time Set By Reviewed At 06/28/2023 Tiffany Bansal RN 06/27/2023 7:48 AM TCC estimate 06/27/2023 Tiffany Bansal RN 06/26/2023 8:14 AM 06/26/2023 Klever Crawford MD 06/24/2023 3:54 AM 06/26/2023 Thu Hogue MD 06/23/2023 9:18 PM Length of Stay (Days): 4 GMLOS: 2.6 * Care Plan - Vanda Dumas RN - 06/27/2023 3:12 AM EDT The patient is Moderately Stable - Low risk of patient condition declining or worsening The patient's goals for the shift include sleep The clinical goals for the shift include no pain Over the shift, the patient did not make progress toward the following goals. Barriers to progression include Pain management. Recommendations to address these barriers include low stimuli environment and prn pain meds. * Care Coordination - Tiffany Bansal RN - 06/26/2023 1:52 PM EDT Images from the original note were not included. Care Management Progress Note TRANSITIONAL CARE DAILY NOTE/UPDATES: Patient remains on 2E due to diverticulitis. Clinical updates: Patient on IV fluids, IV antibiotics. Sodium today was 133. Discharge plan: home when medically stable. Discharge obstacles: none noted. TCC to continue to follow. Discharge Milestones and Delays Expected Date/Time: 06/27/[address] discharge order Complete med reconciliation Case mgmt discharge readiness Clinical Stability Diagnsotic Workup Expected Discharge History Expected Date/Time Set By Reviewed At 06/27/2023 Tiffany Bansal RN 06/26/2023 8:14 AM TCC estimate 06/26/2023 Klever Crawford MD 06/24/2023 3:54 AM 06/26/2023 Thu Hogue MD 06/23/2023 9:18 PM Length of Stay (Days): 3 GMLOS: No GMLOS Documented * Care Coordination - Roz Hays RN - 06/25/2023 2:47 PM EDT Care Managment Initial Assessment Date: 06/25/2023 Patient Name: Priscila Cha : 1955 Patient Information Source of Information: Patient, Patient Base Draw Operator Name/Contact Information: DEJA CHA SPOUSE [phone] Cognition/Language: WFL - Within Functional Limits Permission given to speak with patient surgical device sales representative/caregiver as indicated: Yes Confirmation of Payer with patient/family: Yes Payer Name: MEDICARE AND AARP : No Confirmation of Primary Care Physician: Confirmed PCP Name: DR. DEE Seen in last 2 years?: Yes Primary Caregiver: Self If assistance needed, confirmed caregiver ready, willing and able to care for patient at discharge:Yes Confirmed with: PER PATIENT HER SPOUSE Living Arrangements Current Residence: House Number of Floors 2 Number of Entry Steps: 2 Bed/Bath Levels: Both second floor Facility: Facility Name: Plan to Return: Yes Lives with: Spouse/significant other Support Systems: Spouse/significant other Activities of Daily Living Ambulation: Independent Bathing/Dressing: Independent Elimination/Continence/Toileting: Independent Feeding: Independent Who Assists with Activities of Daily Living: Instrumental Activities of Daily Living Prescription Coverage: Yes Pharmacy Used: [facility] [place] Medication Management: Independent Transportation/Shopping: Independent Transportation Mode: Car Needs Assistance with Transportation at Discharge: No (SPOUSE) Meal Preparation: Independent Laundry/Cleaning: Independent Finances/Bill Paying: Independent Communication: Independent Types of Care Services/Equipment Utilized Care Services: Dialysis Type: Durable Medical Equipment: Nebulizer DME Provider: [employer] Patient's Goal/Discharge Plan Patient expects to be discharged to: HOME Discharge Planning Actions: Continue to follow Patient's Choice Rights and [employer] and Collaborative Relationships Disclosed as Indicated for Post-Acute Care: NA Interdisciplinary Team Engagement: Social Work Referral for: Additional Information: Inpatient status from home with diverticulitis. Ivf, iv antibiotics, and daily labs. Discharge preparation checklist reviewed with patient. Has prescription coverage and able to afford medications. Lives at home with spouse and independent in her adls and household tasks. Still drives and states husbands able to assist at home if needed. Tentative discharge plan is home with spouse when medicallystable. . Roz Hays RN * Care Plan - Reji Graham RN - 06/24/2023 5:28 AM EDT Problem: Pain - Adult Goal: Verbalizes/displays adequate comfort level or baseline comfort level Outcome: Progressing Problem: Safety - Adult Goal: Free from fall injury Outcome: Progressing Problem: Discharge Planning Goal: Discharge to home or other facility with appropriate resources Outcome: Progressing documented in this [facility]10-23-2023 [facility] 07-10-2023 Hospital course Narrative* Ryan Naik MD - 07/10/2023 11:02 AM EDT Discharge Summary Priscila Cha : 1955 ADMIT DATE: 06/23/2023 DISCHARGE DATE: 07/10/2023 PRIMARY CARE PHYSICIAN: LEONID DEE VISIT STATUS: Admission CODE STATUS: Full Code DISCHARGE DIAGNOSES: Principal Problem: Diverticulitis Active Problems: Primary hypertension Moderate malnutrition (CMS/HCC) (HCC) HOSPITAL COURSE: Priscila is a 67 y.o. female who presents with worsening LLQ abdominal pain despite antibx (had beenon augmentin for diverticulitis). She also had Nausea/vomiting, abdominal pain. Was started on IV zosyn and admitted for further tx. The following is a summary of her diagnosis/management during her s amita here at [facility]: Acute uncomplicated diverticulitis with slow improvement - patient initially felt there's no improvement and states she felt worse but then on 06/29, she started turning around and improving. Ct repeated on 06/27 remains the same. Patient eventually had improvement on IV zosyn. She was changed to po augmentin on 07/03 and she started getting worse again and WBC started climbing again and CT abd repeated on 07/05 it showed worsening with possible abscess. Radiology called me and states it's in area that's hard to tell if it's inflammation vs abscess and also area is difficult to drain. Spoke with Dr. Lopez from surgery at that time and he states that the strongly recommend to continue IV antibx as he reviewed image and felt this is all inflammation. ID now consulted as well and patientwas restarted on IV zosyn based on all this. Now WBC decreasing again back to normal and symptoms improving. Surgery has cleared for discharge now and I spoke with ID today due to failed augmentin twice. Per Dr. Matos, he is okay for discharge but recommended to put her on Flagyl and Cefdinir.She has been told NOT to drink ETOH while on flagyl. Plan is discharge on Cefdinir 300mg PO q12h + Metronidazole 500mg PO q8h through 08/02/23 to complete 4 weeks total of antibiotics. Also sent homewith senna but stopped liquid colace as patient states she had a blow out of loose stools while on both. Called Deja today as well to update him with plan. Also patient was told by consultants she will need colonoscopy in 6-8 weeks post diverticulitis, however she and deja both states they already have appt for colonoscopy with GI doctor on [facility] for early August and will follow up with him. Hypokalemia - replaced Leukocytosis - resolved HTN Hyponatremia - resolved with IVF Anemia - H/H stable. Physical exam: Cardiovascular: S1/S2 heard, RRR Respiratory: Clear to auscultation bilaterally Abdomen: Soft, and today she states she had no abdominal pain currently but she did get pain meds as this am she did have pretty bad pain that significantly improved and resolved after having BM and after getting pain meds. Again, currently denying pain but when I pressed on LLQ, she says it's not bad at all, but maybe slight discomfort only. Abdomen is non-distended bowel sounds positive Musculoskeletal: No obvious deformities seen Skin: No visible rashes or lesions. SIGNIFICANT DIAGNOSTIC STUDIES: As above CONSULTANTS: Surgery GI ID RECOMMENDED NEXT STEPS: DISCHARGE MEDICATIONS: Medication List START taking these medications cefdinir 300 MG capsule Commonly known as: Omnicef Take 1 capsule (300 mg) by mouth 2 times daily for 24 days. metroNIDAZOLE 500 MG tablet Commonly known as: Flagyl Take 1 tablet (500 mg) by mouth 3 times daily for 24 days. oxyCODONE 5 MG immediate release tablet Commonly known as: Roxicodone Take 1 tablet (5 mg) by mouth every 4 hours as needed for moderate pain (4-6) for up to 5 days. senna-docusate sodium 8.6-50 MG tablet Commonly known as: Senokot-S Take 2 tablets by mouth daily. Start taking on: July 11, 2023 CONTINUE taking these medications albuterol 108 (90 Base) MCG/ACT inhaler amLODIPine 5 MG tablet Commonly known as: Norvasc gabapentin 300 MG capsule Commonly known as: Neurontin traZODone 50 MG tablet Commonly known as: Desyrel Trelegy Ellipta 100-62.5-25 MCG/ACT aerosol powder Generic drug: Xcbzkzvebti-Mjudqylxq-Acrjei STOP taking these medications doxycycline 100 MG capsule Commonly known as: Vibramycin ibuprofen 600 MG tablet predniSONE 10 MG tablet Commonly known as: Deltasone Where to Get Your Medications These medications were sent to [facility] [address] [place] [address] Hours: Monday to Monday 10 am to 6 pm cefdinir 300 MG capsule metroNIDAZOLE 500 MG tablet oxyCODONE 5 MG immediate release tablet senna-docusate sodium 8.6-50 MG tablet DIET: Adult diet Regular; Low Fiber ACTIVITY: No restriction. COMPLEXITY OF FOLLOW UP: [] Moderate Complexity: follow up within 7-14 calendar days (93981) [] Severe Complexity: follow up within 7 calendar days (67561) FOLLOW UP TESTING, PENDING RESULTS OR REFERRALS AT TRANSITIONAL CARE VISIT: [] Yes [] No PENDING STUDIES: DISPOSITION: Home FACILITY/HOME CARE AGENCY NAME: Follow up with Adria Lopez MD [address] [place] [address] [address] [phone] Go in 2 week(s) INSTRUCTIONS TO MA/SW: Please call patient on day after discharge (must document patient contacted within 2 business days of discharge). FOLLOW UP QUESTIONS FOR MA/SW: 1. Did you get medications filled and taking them as instructed from discharge? 2. Are you following your discharge instructions from your hospital stay? 3. Please confirm patient is scheduled for a follow up appointment within the above time frame. DISCHARGE TIME: > 31 minutes SIGNED: RYAN NAIK MD 07/10/2023, 11:02 AM documented in this [facility]10-22-2023 Hospital Discharge instructions* Discharge Instructions* MINNA Dobson CNP - 07/09/2023 9:35 AM EDT * Discharge Instr - Activity* Magdalene Strong RN - 07/10/2023 12:49 PM EDT As tolerated * Discharge Instr - Diet* Magdalene Strong RN - 07/10/2023 12:50 PM EDT 5 carb controlled diet, 2 gram low sodium, low fiber * Discharge Instr - SANTINO* Magdalene Strong RN - 07/10/2023 12:57 PM EDT Continuity of Care Form Patient Name: Priscila Cha : 1955 Admit date: 06/23/2023 Discharge date: Code Status Order: Full Code Advance Directives: N Admitting Physician: Thu Hogue MD PCP: LEONID DEE MD Discharging Nurse: Discharging Hospital Unit/Room#: B2-252/B2-252 A Discharging Unit Phone Number: Emergency Contact: Extended Emergency Contact Information Primary Emergency Contact: Deja Cha Mobile Relation: Spouse Past Surgical History: Past Surgical History: Procedure Laterality Date BACK SURGERY N/A 2017 lower back in middle MANDIBLE SURGERY Bilateral 1983 wires on both jaws now TONSILLECTOMY (HISTORICAL) Immunization History: Immunization History Administered Date(s) Administered Moderna SARS-CoV-2 Vaccination 11/23/2020, 12/21/2020, 07/24/2021 Active Problems: Medical Problems Problem List * (Principal) Diverticulitis COPD exacerbation (HCC) Community acquired pneumonia Chronic pain Multilevel degenerative disc disease Spondylolisthesis of lumbar region Spondylolisthesis at L5-S1 level Spondylolisthesis at L4-L5 level Primary hypertension Moderate malnutrition (CMS/HCC) (HCC) Dizziness Chest pain Pneumonia Isolation/Infection: No active isolations No active infections Nurse Assessment: Last Vital Signs: BP 127/80 (BP Location: Left arm, Patient Position: Sitting) Pulse 103 Temp 36.7 C (98.1 F) (Temporal) Resp 14 Ht 1.6 m (5' 3 ) Wt 63.9 kg (140 lb 14 oz) LMP (LMP Unknown) SpO2 98% BMI 24.95 kg/m Last documented pain score (0-10 scale): Last Weight: Wt Readings from Last 1 Encounters: 06/24/23 63.9 kg (140 lb 14 oz) Mental Status: {SANTINO Patient Mental Status:06951} IV Access: {SANTINO IV Access:67623} Nursing Mobility/ADLs: Walking {SHAI ADL:75233:: Independent } Transfer {SHAI ADL:43711:: Independent } Bathing {SHAI ADL:20980:: Independent } Dressing {SHAI ADL:37691:: Independent } Toileting {SHAI ADL:32818:: Independent } Feeding {SHAI ADL:31630:: Independent } Fountain Worker {SHAI ADL:28343:: Independent } Med Delivery {yes/no:91399} Wound Care Documentation and Therapy: Elimination: Continence: Bowel: {yes/no:89435} Bladder: {yes/no:03362} Urinary Catheter: {SANTINO Urinary Catheter:49061} Colostomy/Ileostomy/Ileal Conduit: {YES / NO:} Date of Last BM: Intake/Output Summary (Last 24 hours) at 07/10/2023 1252 Last data filed at 07/10/2023 0900 Gross per 24 hour Intake 400 ml Output 1450 ml Net -1050 ml I/O last 3 completed shifts: In: 350 (5.5 mL/kg) [P.O.:350] Out: 450 (7 mL/kg) [Urine:450 (0.2 mL/kg/hr)] Weight: 63.9 kg Safety Concerns: {SANTINO Safety Concerns:14684} Impairments/Disabilities: {SANTINO Impairments/Disabilities:97203} Nutrition Therapy: Current Nutrition Therapy: {SANTINO Diet List:18833} Routes of Feeding: {routes of feedin} Liquids: {liquid consistency:24936} Daily Fluid Restriction: {daily fluid restriction:26663} Last Modified Barium Swallow with Video (Video Swallowing Test): {done not done:33642} Treatments at the Time of Hospital Discharge: Respiratory Treatments: Oxygen Therapy: {Therapy; copd oxygen:72692} Ventilator: {SANTINO Ventilator:00524} Rehab Therapies: {GEN THERAPY DISCIPLINE SCAL:6501009} Weight Bearing Status/Restrictions: {POD WEIGHT BEARIN} Other Medical Equipment (for information only, NOT a DME order): {Assistive Devices DME:89318} Other Treatments: Patient's personal belongings (please select all that are sent with patient): {SANTINO Patient Belongings:74153} RN SIGNATURE: {E-signature:42416} CASE MANAGEMENT/SOCIAL WORK SECTION Inpatient Status Date: Readmission Risk Assessment Score: @READMISSIONRISKDETAILS@ Discharging to Facility/ Agency Name: Address: Phone: Fax: Dialysis Facility (if applicable) Name: Address: Dialysis Schedule: Phone: Fax: Baccarat Manager/Periodicals Clerk signature: {E-signature:04858} PHYSICIAN SECTION Prognosis: {Rehab Prognosis:96980} Condition at Discharge: {Patient Condition:95626} Rehab Potential (if transferring to Rehab): {Rehab Prognosis:20923} Recommended Labs or Other Treatments After Discharge: Physician Certification: I certify the above information and transfer of Priscila Cha is necessary for the continuing treatment of the diagnosis listed and that she requires {SANTINO Level of Care:92769} for {greater less than:01085} 30 days. Update Admission H&P: {SANTINO Changes in H&P:74958} PHYSICIAN SIGNATURE: {E-signature:21509} * Attachments The following attachments cannot be sent through Care Everywhere. * Diverticulitis (Zimbabwean) * Diverticulitis Discharge Instructions (Zimbabwean) * Low Fiber Diet (Zimbabwean) documented in this [facility]10-20-2023 Note* Care Coordination - Tiffany Bansal RN - 07/07/2023 2:28 PM EDT Images from the original note were not included. Care Management Progress Note Patient remains on 2E due to diverticulitis. Clinical updates: Patient on IV antibiotics, diet being advanced to a full liquid. General surgery following. Discharge plan: home when medically stable. Discharge obstacles: none noted. TCC to continue to follow. Discharge Milestones and Delays Expected Date/Time: 07/08/[address] discharge order Complete med reconciliation Case mgmt discharge readiness Clinical Stability Diagnsotic Workup Expected Discharge History Expected Date/Time Set By Reviewed At 07/08/2023 Tiffany Bansal RN 07/07/2023 8:26 AM TCC estimate 07/07/2023 Tiffany Bnasal RN 07/06/2023 8:30 AM 07/06/2023 Tiffany Bansal RN 07/05/2023 8:28 AM 07/04/2023 Tiffany Bansal RN 07/03/2023 8:08 AM TCC estimate IV antibiotic completion 07/04/2023 Tiffany Bansal RN 06/30/2023 2:35 PM 06/30/2023 Tiffany Bansal RN 06/30/2023 8:13 AM TCC estimate 06/30/2023 Tiffany Bansal RN 06/29/2023 7:54 AM 06/29/2023 Tiffany Bansal RN 06/28/2023 8:17 AM 06/28/2023 Tiffany Bansal RN 06/27/2023 7:48 AM 06/27/2023 Tiffany Bansal RN 06/26/2023 8:14 AM 06/26/2023 Klever Crawford MD 06/24/2023 3:54 AM 06/26/2023 Thu Hogue MD 06/23/2023 9:18 PM Length of Stay (Days): 14 GMLOS: 3.9 [id number]* Care Coordination - Tiffany Bansal RN - 07/07/2023 2:28 PM EDT Images from the original note were not included. Care Management Progress Note Patient remains on 2E due to diverticulitis. Clinical updates: Patient on IV antibiotics, diet being advanced to a full liquid. General surgery following. Discharge plan: home when medically stable. Discharge obstacles: none noted. TCC to continue to follow. Discharge Milestones and Delays Expected Date/Time: 07/08/[address] discharge order Complete med reconciliation Case mgmt discharge readiness Clinical Stability Diagnsotic Workup Expected Discharge History Expected Date/Time Set By Reviewed At 07/08/2023 Tiffany Bansal RN 07/07/2023 8:26 AM TCC estimate 07/07/2023 Tiffany Bansal RN 07/06/2023 8:30 AM 07/06/2023 Tiffany Bansal RN 07/05/2023 8:28 AM 07/04/2023 Tiffany Bansal RN 07/03/2023 8:08 AM TCC estimate IV antibiotic completion 07/04/2023 Tiffany Bansal RN 06/30/2023 2:35 PM 06/30/2023 Tiffany Bansal RN 06/30/2023 8:13 AM TCC estimate 06/30/2023 Tiffany Bansal RN 06/29/2023 7:54 AM 06/29/2023 Tiffany Bansal RN 06/28/2023 8:17 AM 06/28/2023 Tiffany Bansal RN 06/27/2023 7:48 AM 06/27/2023 Tiffany Bansal RN 06/26/2023 8:14 AM 06/26/2023 Klever Crawford MD 06/24/2023 3:54 AM 06/26/2023 Thu Hogue MD 06/23/2023 9:18 PM Length of Stay (Days): 14 GMLOS: 3.9 [id number]* Care Coordination - Tiffany Bansal RN - 07/06/2023 2:50 PM EDT Images from the original note were not included. Care Management Progress Note Patient remains on 2E due to diverticulitis. Clinical updates: Patient with abscess, general surgery states no surgical intervention, may need to be drained by IR. Patient still having abdominal pain. Back on IV antibiotics. Discharge plan: home when medically stable. Discharge obstacles: none noted. TCC to continue to follow. Discharge Milestones and Delays Expected Date/Time: 07/07/[address] discharge order Complete med reconciliation Case mgmt discharge readiness Clinical Stability Diagnsotic Workup Expected Discharge History Expected Date/Time Set By Reviewed At 07/07/2023 Tiffany Bansal RN 07/06/2023 8:30 AM TCC estimate 07/06/2023 Tiffany Bansal RN 07/05/2023 8:28 AM 07/04/2023 Tiffany Bansal RN 07/03/2023 8:08 AM TCC estimate IV antibiotic completion 07/04/2023 Tiffany Bansal RN 06/30/2023 2:35 PM 06/30/2023 Tiffany Bansal RN 06/30/2023 8:13 AM TCC estimate 06/30/2023 Tiffany Bansal RN 06/29/2023 7:54 AM 06/29/2023 Tiffany Bansal RN 06/28/2023 8:17 AM 06/28/2023 Tiffany Bansal RN 06/27/2023 7:48 AM 06/27/2023 Tiffany Bansal RN 06/26/2023 8:14 AM 06/26/2023 Klever Crawford MD 06/24/2023 3:54 AM 06/26/2023 Thu Hogue MD 06/23/2023 9:18 PM Length of Stay (Days): 13 GMLOS: 3.9 [id number] Note* Care Coordination - Tiffany Bansal RN - 07/06/2023 2:50 PM EDT Images from the original note were not included. Care Management Progress Note Patient remains on 2E due to diverticulitis. Clinical updates: Patient with abscess, general surgery states no surgical intervention, may need to be drained by IR. Patient still having abdominal pain. Back on IV antibiotics. Discharge plan: home when medically stable. Discharge obstacles: none noted. TCC to continue to follow. Discharge Milestones and Delays Expected Date/Time: 07/07/[address] discharge order Complete med reconciliation Case mgmt discharge readiness Clinical Stability Diagnsotic Workup Expected Discharge History Expected Date/Time Set By Reviewed At 07/07/2023 Tiffany Bansal RN 07/06/2023 8:30 AM TCC estimate 07/06/2023 Tiffany Bansal RN 07/05/2023 8:28 AM 07/04/2023 Tiffany Bansal RN 07/03/2023 8:08 AM TCC estimate IV antibiotic completion 07/04/2023 Tiffany Bansal RN 06/30/2023 2:35 PM 06/30/2023 Tiffany Bansal RN 06/30/2023 8:13 AM TCC estimate 06/30/2023 Tiffany Bansal RN 06/29/2023 7:54 AM 06/29/2023 Tiffany Bansal RN 06/28/2023 8:17 AM 06/28/2023 Tiffany Bansal RN 06/27/2023 7:48 AM 06/27/2023 Tiffany Bansal RN 06/26/2023 8:14 AM 06/26/2023 Klever Crawford MD 06/24/2023 3:54 AM 06/26/2023 Thu Hogue MD 06/23/2023 9:18 PM Length of Stay (Days): 13 GMLOS: 3.9 [id number] Consult note* Helen Covington PA-C - 07/06/2023 8:56 AM EDTAssociated Order(s): IP CONSULT TO INFECTIOUS DISEASES Images from the original note were not included. [facility] - Infectious Diseases Advanced Practice Provider Consult Note Reason for Consult: Acute diverticulitis despite antibiotics. History of Present Illness: 67 yo female with PMHx significant for arthritis, HTN, and COPD presented 06/23 with complaints of LLQ abdominal pain. Reports has had pain 3-4 weeks ago after coming back from trip to [place]. Patient reports she was diagnosed with diverticulitis as outpt and was discharged on a course of Amox-Clav. She reports taking about 5 days of antibiotic with worsening of symptoms accompanied by N/V. In the ED, patient was afebrile with leukocytosis (WBC 11.9). CT abd/pelvis revealed acute sigmoid diverticulitis. Patient started on IV Pip-Tazo. A few days after presentation, patient continued to have worsening abdominal pain + multiple wateryBM/day. CT abd/pelvis repeated and with sigmoid diverticulitis, no other acute process; C diff/GI PCR negative. Given slow improvement, abx stewardship had recommended to continue course of abx and patient was eventually transitioned to Amox-Clav PO. On 07/04, Patient complained of severe, worsening LLQ abdominal pain and also described rectal pain. Additionally, had worsening leukocytosis. Repeat CT abd/pelvis revealed sigmoid diverticulitis + new fluid collection (2.3 x 1.9 x 2.6cm) between sigmoid and rectum in L pelvis. She was transitioned back to Pip-Tazo. She has remained afebrile. WBC downtrending. Today, patient reports continued and persistent abdominal pain, poor PO intake, nausea. She notes having diarrhea yesterday, but none so far today. Additionally with complaints of urinary frequency/urgency with minimal output and dysuria. Reports some chills. Denies CP, SOB, cough. No other new exacerbating or alleviating factors. Past Medical History: Past Medical History: Diagnosis Date Arthritis COPD exacerbation (HCC) 06/20/2022 Pneumonia 03/04/2019 Primary hypertension 06/24/2023 Past Surgical History: Past Surgical History: Procedure Laterality Date BACK SURGERY N/A 2017 lower back in middle MANDIBLE SURGERY Bilateral 1983 wires on both jaws now TONSILLECTOMY (HISTORICAL) Current Medications: Current Facility-Administered Medications Medication Dose Route Frequency Provider Last Rate Last Admin acetaminophen (Tylenol) tablet 650 mg 650 mg Oral q6h PRN Thu Hogue MD Or acetaminophen (Tylenol) suppository 650 mg 650 mg Rectal q6h PRN Thu Hogue MD albuterol 108 (90 Base) MCG/ACT inhaler 2 puff 2 puff Inhalation q4h PRN Thu Hogue MD amLODIPine (Norvasc) tablet 5 mg 5 mg Oral Daily Thu Hogue MD 5 mg at 07/05/23853 docusate (Colace) 50 MG/5ML liquid 50 mg 50 mg Oral BID April Encinas MD 50 mg at 07/04/232038 enoxaparin (Lovenox) syringe 40 mg 40 mg SubCUTAneous Daily Thu Hogue MD 40 mg at Prquzvsrrmu-Bziiatuds-Sotsqw 100-62.5-25 MCG/ACT aerosol powder 1 puff 1 puff Inhalation Daily Nydia Jorgenesn MD 1 puff at 07/06/23826 gabapentin (Neurontin) capsule 300 mg 300 mg Oral BID PRN Thu Hogue MD hydrALAZINE (Apresoline) injection 10 mg 10 mg IntraVENous q4h PRN Blair Wing MD hydrocortisone 2.5 % cream Topical BID Iftikhar Dai MD Given at 07/06/23 0828 HYDROmorphone (Dilaudid) injection 0.5 mg 0.5 mg IntraVENous q4h PRN Iftikhar Dai MD 0.5 mg at 07/06/23 0734 Influenza Vac A&B SA Adj quadrivalent (Fluad) vaccine 0.5 mL 0.5 mL IntraMUSCular Once Thu Bower MD melatonin tablet 3 mg 3 mg Oral Nightly PRN Thu Hogue MD 3 mg at 07/02/23 2044 naloxone (Narcan) injection 0.4 mg 0.4 mg IntraVENous PRN Thu Hogue MD ondansetron ODT (Zofran-ODT) disintegrating tablet 4 mg 4 mg Oral q8h PRN Thu Hogue MD 4 mg at 06/27/23 0935 Or ondansetron (Zofran) injection 4 mg 4 mg IntraVENous q6h PRN Thu Hogue MD 4 mg at 140 oxyCODONE (Roxicodone) immediate release tablet 5 mg 5 mg Oral q4h PRN Thu Hogue MD 5 mg at 06/30/23 0854 Or oxyCODONE (Roxicodone) immediate release tablet 10 mg 10 mg Oral q4h PRN Thu Hogue MD 10 mg at 07/05/23 2318 piperacillin-tazobactam (Zosyn) 3,375 mg in sodium chloride 0.9 % 50 mL IVPB Mini-Bag Plus 3,375 mgIntraVENous q8h Ryan Naik MD Stopped at 07/06/23 0808 polyethylene glycol (PEG) 3350 (Miralax) packet 17 g 17 g Oral Daily Thu Hogue MD 17 g at 07/02/23 0917 polyethylene glycol (PEG) 3350 (Miralax) packet 17 g 17 g Oral Daily PRN Thu Hogue MD senna-docusate sodium (Senokot-S) 8.6-50 MG tablet 2 tablet 2 tablet Oral BID PRN Iftikhar Dai MD 2 tablet at 07/03/232104 traZODone (Desyrel) tablet 50 mg 50 mg Oral qPM Thu Hogue MD 50 mg at 07/05/232003 Allergies: Allergies Allergen Reactions Codeine Levofloxacin Other reaction(s): GI Upset, U Sulfa Antibiotics Other reaction(s): Vomiting Social History: Social History Socioeconomic History Marital status: Spouse name: Not on file Number of children: Not on file Years of education: Not on file Highest education level: Not on file Occupational History Not on file Tobacco Use Smoking status: Every Day Packs/day: .5 Types: Cigarettes Smokeless tobacco: Current Tobacco comments: Quit smoking: trying to quit Substance and Sexual Activity Alcohol use: Not Currently Drug use: Never Sexual activity: Not on file Other Topics Concern Not on file Social History Narrative Not on file Social Determinants of Health Financial Resource Strain: Not on file Food Insecurity: Not on file Transportation Needs: Not on file Physical Activity: Not on file Stress: Not on file Social Connections: Not on file Intimate Partner Violence: Not on file Housing Stability: Not on file Family History: Family History Problem Relation Name Age of Onset No Known Problems Other No Known Problems Brother No Known Problems Maternal Grandfather No Known Problems Paternal Grandfather No Known Problems Sister No Known Problems Maternal Grandmother No Known Problems Paternal Grandmother Review of Systems: Review of Systems Constitutional: Positive for appetite change, chills and fatigue. Negative for fever. HENT: Negative for congestion, ear pain, postnasal drip, rhinorrhea, sinus pressure, sinus pain andsore throat. Eyes: Negative for pain, discharge and itching. Respiratory: Negative for cough, chest tightness and shortness of breath. Cardiovascular: Negative for chest pain, palpitations and leg swelling. Gastrointestinal: Positive for abdominal pain, diarrhea, nausea and rectal pain. Negative for abdominal distention, constipation and vomiting. Genitourinary: Positive for dysuria, frequency and urgency. Negative for flank pain. Musculoskeletal: Negative for arthralgias and myalgias. Skin: Negative for color change, rash and wound. Neurological: Positive for weakness. Negative for dizziness, light-headedness and headaches. Vitals: Patient Vitals for the past 24 hrs: BP Temp Temp src Pulse Resp SpO2 07/06/23 0733 121/71 36.6 C (97.8 F) Temporal 99 14 94 % 07/05/231924 -- 37.8 C (100.1 F) Oral -- -- -- 07/05/231922 129/83 37.7 C (99.9 F) Temporal 103 18 96 % Physical Exam: Physical Exam Constitutional: Appearance: Normal appearance. She is ill-appearing. Comments: NAD laying in bed. Appears uncomfortable and ill. Cooperative, conversant. HENT: Head: Normocephalic and atraumatic. Right Ear: External ear normal. Left Ear: External ear normal. Nose: Nose normal. Mouth/Throat: Mouth: Mucous membranes are moist. Pharynx: Oropharynx is clear. Eyes: Extraocular Movements: Extraocular movements intact. Conjunctiva/sclera: Conjunctivae normal. Pupils: Pupils are equal, round, and reactive to light. Cardiovascular: Rate and Rhythm: Regular rhythm. Tachycardia present. Pulses: Normal pulses. Heart sounds: Normal heart sounds. No murmur heard. No friction rub. No gallop. Pulmonary: Effort: Pulmonary effort is normal. Breath sounds: Normal breath sounds. No wheezing, rhonchi or rales. Abdominal: Comments: Soft abdomen, diffusely tender, suprapubic tenderness No flank tenderness Skin: General: Skin is warm and dry. Neurological: General: No focal deficit present. Mental Status: She is alert and oriented to person, place, and time. Psychiatric: Mood and Affect: Mood normal. Behavior: Behavior normal. Labs: Recent Labs 07/04/2324307/05/238 07/06/235 NA 134* 134* 131* K 3.5 3.3* 3.9 CL 105 102 103 CO2 27 27 24 BUN 10 10 8 CREATININE 0.63 0.52 0.48* GLUCOSE 99 119* 88 CALCIUM 9.2 9.0 8.7 PROT 6.7 7.6 6.6 BILITOT 0.5 0.6 0.4 ALKPHOS 60 82 68 AST 21 31 23 ALT 10 14 12 Recent Labs 07/04/2324307/05/238 07/06/235 WBC 11.5* 13.6* 9.7 HGB 11.3* 12.3 11.3* HCT 34.4* 38.1 32.4* PLT 444* 460* 399 Micro: No results for input(s): COVID19 in the last 72 hours. 06/28 C diff PCR: neg 06/28 GI PCR: neg Lines: PIV Radiography/Echo/Other: 06/23 CT abd/pelvis 1. Acute diverticulitis involving the the distal descending colon extending into the sigmoid colon.No focal fluid collection or evidence of perforation. 2. Moderate to severe mixed atherosclerotic plaque with infrarenal abdominal aortic aneurysm measuring 3.3 x 3.0 cm, previously 2.9 x 2.7 cm. Please see below recommendations. 3. Mild biliary ductal dilatation also seen on prior study and likely postsurgical. 4. Tiny joe of intraluminal air within the urinary bladder. This is nonspecific and could reflectrecent instrumentation or infection. Given proximity to sigmoid colon fistula could be considered though this is felt to be less likely. 06/27 CT abd/pelvis 1. Acute sigmoid diverticulitis. No pneumoperitoneum or fluid collection. Appearance is similar to prior exam from 06/23/2023. 2. Abdominal aortic aneurysm measuring 3 cm. 07/05 CT abd/pelvis Sigmoid diverticulitis again noted. There appears be a new 2.6 cm fluid collection containing air locules between sigmoid and rectum in the left pelvis as described. Inflammatory stranding has increased. Findings are favored to be due to an abscess. An inflamed, enlarged diverticulum is also possible though felt less likely. Consider short term follow up. Recommend colonoscopy after treatment to exclude any potential underlying lesions. Excessive colonic fecal burden which there is nonspecific though can be seen with constipation if in the appropriate clinical setting. Redemonstrated abdominal aortic aneurysm. Remainder of the exam has not significantly changed since prior exam. Antimicrobials,Start/End Dates: Pip-Tazo: 06/22-07/03; 07/05- Amox-Clav: 07/03-07/05 Fluc: 06/24, 06/27 Impression: Intra-abdominal abscess Measuring 2.3 x 1.9 x 2.6cm Sigmoid diverticulitis Dysuria/urgency/frequency Leukocytosis- improving Antibiotic intolerances- Sulfa, levoflox Plan: Patient with sigmoid diverticulitis complicated by new abscess. Plan to continue Pip-Tazo for now. Gen Surg evaluated, no acute surgical intervention at this time. Would recommend IR drainage of abscess if able-ordered Patient with new urinary complaints. UA + Urine cx ordered for evaluation. Case and plan discussed with Dr. Matos Addendum: Discussed with Dr. Leos, intra-abd abscess too small for drainage + risky given surrounded by colon. Total time 75 minutes on this day of encounter includes counseling, coordinating plan of care, record and documentation review before and after visit including documentation and time not explicitly included on EMR time stamp for accounting for open encounter. Helen MIRANDA PA-C [id number] Consult note* Helen Covington PA-C - 07/06/2023 8:56 AM EDTAssociated Order(s): IP CONSULT TO INFECTIOUS DISEASES Images from the original note were not included. [facility] - Infectious Diseases Advanced Practice Provider Consult Note Reason for Consult: Acute diverticulitis despite antibiotics. History of Present Illness: 67 yo female with PMHx significant for arthritis, HTN, and COPD presented 06/23 with complaints of LLQ abdominal pain. Reports has had pain 3-4 weeks ago after coming back from trip to [place]. Patient reports she was diagnosed with diverticulitis as outpt and was discharged on a course of Amox-Clav. She reports taking about 5 days of antibiotic with worsening of symptoms accompanied by N/V. In the ED, patient was afebrile with leukocytosis (WBC 11.9). CT abd/pelvis revealed acute sigmoid diverticulitis. Patient started on IV Pip-Tazo. A few days after presentation, patient continued to have worsening abdominal pain + multiple wateryBM/day. CT abd/pelvis repeated and with sigmoid diverticulitis, no other acute process; C diff/GI PCR negative. Given slow improvement, abx stewardship had recommended to continue course of abx and patient was eventually transitioned to Amox-Clav PO. On 07/04, Patient complained of severe, worsening LLQ abdominal pain and also described rectal pain. Additionally, had worsening leukocytosis. Repeat CT abd/pelvis revealed sigmoid diverticulitis + new fluid collection (2.3 x 1.9 x 2.6cm) between sigmoid and rectum in L pelvis. She was transitioned back to Pip-Tazo. She has remained afebrile. WBC downtrending. Today, patient reports continued and persistent abdominal pain, poor PO intake, nausea. She notes having diarrhea yesterday, but none so far today. Additionally with complaints of urinary frequency/urgency with minimal output and dysuria. Reports some chills. Denies CP, SOB, cough. No other new exacerbating or alleviating factors. Past Medical History: Past Medical History: Diagnosis Date Arthritis COPD exacerbation (HCC) 06/20/2022 Pneumonia 03/04/2019 Primary hypertension 06/24/2023 Past Surgical History: Past Surgical History: Procedure Laterality Date BACK SURGERY N/A 2017 lower back in middle MANDIBLE SURGERY Bilateral 1983 wires on both jaws now TONSILLECTOMY (HISTORICAL) Current Medications: Current Facility-Administered Medications Medication Dose Route Frequency Provider Last Rate Last Admin acetaminophen (Tylenol) tablet 650 mg 650 mg Oral q6h PRN Thu Hogue MD Or acetaminophen (Tylenol) suppository 650 mg 650 mg Rectal q6h PRN Tuh Hogue MD albuterol 108 (90 Base) MCG/ACT inhaler 2 puff 2 puff Inhalation q4h PRN Thu Hogue MD amLODIPine (Norvasc) tablet 5 mg 5 mg Oral Daily Thu Hogue MD 5 mg at 07/05/23 0854 docusate (Colace) 50 MG/5ML liquid 50 mg 50 mg Oral BID pAril Encinas MD 50 mg at 07/04/232038 enoxaparin (Lovenox) syringe 40 mg 40 mg SubCUTAneous Daily Thu Hogue MD 40 mg at Oyznpagcjwk-Wjkbjncjk-Jlntyb 100-62.5-25 MCG/ACT aerosol powder 1 puff 1 puff Inhalation Daily Nydia Jorgensen MD 1 puff at 07/06/23 0827 gabapentin (Neurontin) capsule 300 mg 300 mg Oral BID PRN Thu Hogue MD hydrALAZINE (Apresoline) injection 10 mg 10 mg IntraVENous q4h PRN Blair Wing MD hydrocortisone 2.5 % cream Topical BID Iftikhar Dai MD Given at 07/06/23 0828 HYDROmorphone (Dilaudid) injection 0.5 mg 0.5 mg IntraVENous q4h PRN Iftikhar Dai MD 0.5 mg at 07/06/23 0734 Influenza Vac A&B SA Adj quadrivalent (Fluad) vaccine 0.5 mL 0.5 mL IntraMUSCular Once Thu Bower MD melatonin tablet 3 mg 3 mg Oral Nightly PRN Thu Hogue MD 3 mg at 07/02/23 204 naloxone (Narcan) injection 0.4 mg 0.4 mg IntraVENous PRN Thu Hogue MD ondansetron ODT (Zofran-ODT) disintegrating tablet 4 mg 4 mg Oral q8h PRN Thu Hogue MD 4 mg at 06/27/23 0935 Or ondansetron (Zofran) injection 4 mg 4 mg IntraVENous q6h PRN Thu Hogue MD 4 mg at 140 oxyCODONE (Roxicodone) immediate release tablet 5 mg 5 mg Oral q4h PRN Thu Hogue MD 5 mg at 06/30/23 0854 Or oxyCODONE (Roxicodone) immediate release tablet 10 mg 10 mg Oral q4h PRN Thu Hogue MD 10 mg at 07/05/23 2318 piperacillin-tazobactam (Zosyn) 3,375 mg in sodium chloride 0.9 % 50 mL IVPB Mini-Bag Plus 3,375 mgIntraVENous q8h Ryan Naik MD Stopped at 07/06/23 0808 polyethylene glycol (PEG) 3350 (Miralax) packet 17 g 17 g Oral Daily Thu Hogue MD 17 g at 07/02/23 0917 polyethylene glycol (PEG) 3350 (Miralax) packet 17 g 17 g Oral Daily PRN Thu Hogue MD senna-docusate sodium (Senokot-S) 8.6-50 MG tablet 2 tablet 2 tablet Oral BID PRN Iftikhar Dai MD 2 tablet at 07/03/232104 traZODone (Desyrel) tablet 50 mg 50 mg Oral qPM Thu Hogue MD 50 mg at 07/05/232003 Allergies: Allergies Allergen Reactions Codeine Levofloxacin Other reaction(s): GI Upset, U Sulfa Antibiotics Other reaction(s): Vomiting Social History: Social History Socioeconomic History Marital status: Spouse name: Not on file Number of children: Not on file Years of education: Not on file Highest education level: Not on file Occupational History Not on file Tobacco Use Smoking status: Every Day Packs/day: .5 Types: Cigarettes Smokeless tobacco: Current Tobacco comments: Quit smoking: trying to quit Substance and Sexual Activity Alcohol use: Not Currently Drug use: Never Sexual activity: Not on file Other Topics Concern Not on file Social History Narrative Not on file Social Determinants of Health Financial Resource Strain: Not on file Food Insecurity: Not on file Transportation Needs: Not on file Physical Activity: Not on file Stress: Not on file Social Connections: Not on file Intimate Partner Violence: Not on file Housing Stability: Not on file Family History: Family History Problem Relation Name Age of Onset No Known Problems Other No Known Problems Brother No Known Problems Maternal Grandfather No Known Problems Paternal Grandfather No Known Problems Sister No Known Problems Maternal Grandmother No Known Problems Paternal Grandmother Review of Systems: Review of Systems Constitutional: Positive for appetite change, chills and fatigue. Negative for fever. HENT: Negative for congestion, ear pain, postnasal drip, rhinorrhea, sinus pressure, sinus pain andsore throat. Eyes: Negative for pain, discharge and itching. Respiratory: Negative for cough, chest tightness and shortness of breath. Cardiovascular: Negative for chest pain, palpitations and leg swelling. Gastrointestinal: Positive for abdominal pain, diarrhea, nausea and rectal pain. Negative for abdominal distention, constipation and vomiting. Genitourinary: Positive for dysuria, frequency and urgency. Negative for flank pain. Musculoskeletal: Negative for arthralgias and myalgias. Skin: Negative for color change, rash and wound. Neurological: Positive for weakness. Negative for dizziness, light-headedness and headaches. Vitals: Patient Vitals for the past 24 hrs: BP Temp Temp src Pulse Resp SpO2 07/06/23 0733 121/71 36.6 C (97.8 F) Temporal 99 14 94 % 07/05/231924 -- 37.8 C (100.1 F) Oral -- -- -- 07/05/231922 129/83 37.7 C (99.9 F) Temporal 103 18 96 % Physical Exam: Physical Exam Constitutional: Appearance: Normal appearance. She is ill-appearing. Comments: NAD laying in bed. Appears uncomfortable and ill. Cooperative, conversant. HENT: Head: Normocephalic and atraumatic. Right Ear: External ear normal. Left Ear: External ear normal. Nose: Nose normal. Mouth/Throat: Mouth: Mucous membranes are moist. Pharynx: Oropharynx is clear. Eyes: Extraocular Movements: Extraocular movements intact. Conjunctiva/sclera: Conjunctivae normal. Pupils: Pupils are equal, round, and reactive to light. Cardiovascular: Rate and Rhythm: Regular rhythm. Tachycardia present. Pulses: Normal pulses. Heart sounds: Normal heart sounds. No murmur heard. No friction rub. No gallop. Pulmonary: Effort: Pulmonary effort is normal. Breath sounds: Normal breath sounds. No wheezing, rhonchi or rales. Abdominal: Comments: Soft abdomen, diffusely tender, suprapubic tenderness No flank tenderness Skin: General: Skin is warm and dry. Neurological: General: No focal deficit present. Mental Status: She is alert and oriented to person, place, and time. Psychiatric: Mood and Affect: Mood normal. Behavior: Behavior normal. Labs: Recent Labs 07/04/2324307/05/234707/06/23414 NA 134* 134* 131* K 3.5 3.3* 3.9 CL 105 102 103 CO2 27 27 24 BUN 10 10 8 CREATININE 0.63 0.52 0.48* GLUCOSE 99 119* 88 CALCIUM 9.2 9.0 8.7 PROT 6.7 7.6 6.6 BILITOT 0.5 0.6 0.4 ALKPHOS 60 82 68 AST 21 31 23 ALT 10 14 12 Recent Labs 07/04/2324307/05/234707/06/23414 WBC 11.5* 13.6* 9.7 HGB 11.3* 12.3 11.3* HCT 34.4* 38.1 32.4* PLT 444* 460* 399 Micro: No results for input(s): COVID19 in the last 72 hours. 06/28 C diff PCR: neg 06/28 GI PCR: neg Lines: PIV Radiography/Echo/Other: 06/23 CT abd/pelvis 1. Acute diverticulitis involving the the distal descending colon extending into the sigmoid colon.No focal fluid collection or evidence of perforation. 2. Moderate to severe mixed atherosclerotic plaque with infrarenal abdominal aortic aneurysm measuring 3.3 x 3.0 cm, previously 2.9 x 2.7 cm. Please see below recommendations. 3. Mild biliary ductal dilatation also seen on prior study and likely postsurgical. 4. Tiny joe of intraluminal air within the urinary bladder. This is nonspecific and could reflectrecent instrumentation or infection. Given proximity to sigmoid colon fistula could be considered though this is felt to be less likely. 06/27 CT abd/pelvis 1. Acute sigmoid diverticulitis. No pneumoperitoneum or fluid collection. Appearance is similar to prior exam from 06/23/2023. 2. Abdominal aortic aneurysm measuring 3 cm. 07/05 CT abd/pelvis Sigmoid diverticulitis again noted. There appears be a new 2.6 cm fluid collection containing air locules between sigmoid and rectum in the left pelvis as described. Inflammatory stranding has increased. Findings are favored to be due to an abscess. An inflamed, enlarged diverticulum is also possible though felt less likely. Consider short term follow up. Recommend colonoscopy after treatment to exclude any potential underlying lesions. Excessive colonic fecal burden which there is nonspecific though can be seen with constipation if in the appropriate clinical setting. Redemonstrated abdominal aortic aneurysm. Remainder of the exam has not significantly changed since prior exam. Antimicrobials,Start/End Dates: Pip-Tazo: 06/22-07/03; 07/05- Amox-Clav: 07/03-07/05 Fluc: 06/24, 06/27 Impression: Intra-abdominal abscess Measuring 2.3 x 1.9 x 2.6cm Sigmoid diverticulitis Dysuria/urgency/frequency Leukocytosis- improving Antibiotic intolerances- Sulfa, levoflox Plan: Patient with sigmoid diverticulitis complicated by new abscess. Plan to continue Pip-Tazo for now. Gen Surg evaluated, no acute surgical intervention at this time. Would recommend IR drainage of abscess if able-ordered Patient with new urinary complaints. UA + Urine cx ordered for evaluation. Case and plan discussed with Dr. Matos Addendum: Discussed with Dr. Leos, intra-abd abscess too small for drainage + risky given surrounded by colon. Total time 75 minutes on this day of encounter includes counseling, coordinating plan of care, record and documentation review before and after visit including documentation and time not explicitly included on EMR time stamp for accounting for open encounter. Helen MIRANDA PA-C * Adria Lopez MD - 06/30/2023 1:26 PM EDTAssociated Order(s): IP CONSULT TO GENERAL SURGERY Images from the original note were not included. [facility] - Surgery [facility] Physicians Surgery Patient Name: Priscila Cha Date: 06/30/2023 Patient seen and examined by myself and I agree with NORA note below Patient resting in bed and appears comfortable Is a persistent abdominal pain mainly left lower quadrant and suprapubic and also some fecal incontinence Abdomen soft nondistended mild tenderness on deep palpation left lower quadrant Labs and imaging reviewed Assessment /Plan: Acute sigmoid diverticulitis No acute surgical indication Recommend continue with symptomatic care and at this point given no fevers and persistently low andnormal white count probably okay to stop antibiotics Discussion with patient the indications for surgery Surgery will continue to follow for now Patient counseled on risks,benefits, and alternatives of treatement plan at length. Patient states an understanding and willingness to proceed with plan. I personally supervised my NORA and/or resident in the evaluation and management of Priscila Cha in the development of a treatment plan for this patient. I personally interviewed the patient and performed an individual physical examination. In addition, I discussed the patient's condition and treatment options with them. I have also reviewed and agree with the past medical, family and social history and care plan unless otherwise noted. All of the patient's questions were answered. This case represents high level care including chart review, care coordination and face to face encounter was spent discussing/counseling the patient regarding the care plan for this patient. The patient was seen and examined independently and relevant data reviewed by myself. A full chart review was performed. Adria Lopez MD [facility] General Surgery 4:16 PM 06/30/2023 Department of General Surgery Consult PATIENT NAME: Priscila Cha DATE OF : 1955 ADMISSION DATE: 06/23/2023 3:12 PM TODAY'S DATE: 06/30/2023 Reason for Consult: persistent diverticulitis HISTORY OF PRESENT ILLNESS: The patient is a 67 y.o. female who presents with LLQ abdominal pain. Patient states that she firsthad onset of LLQ pain about 3 weeks ago. She notes that a few days prior to onset she had some cheese popcorn but denies other known trigger including injury to the area or new medications. Patient denies past history of similar symptoms. She states that the pain was located in the LLQ without radiation. She attempted outpatient treatment and did not improve on PO Augmentin. Patient states that she received this treatment at [facility]. However, symptoms persisted and caused patient to double over on the floor, which prompted her to present to [facility] on 06/23 for further evaluation. She notes that since hospitalization the pain has migrated from the LLQ and radiates into the R side of herabdomen and into her back. She has tolerated progression of PO intake and states that she has minimal discomfort after eating (states that earlier in the week she did have LLQ after food). Patient presently denies nausea/vomiting or fever/chills. She notes urinary urgency but denies hematuria. Patient notes loose bowel movements but denies hematochezia or melena. PMH notable for HTN and COPD. PSHnotable for tonsillectomy and colonoscopy 5 years ago with findings of diverticulosis. Fhx notable for grandmother with colon cancer (underwent colectomy) and nephew with diverticulitis (underwent col ectomy). CT 06/27 with acute sigmoid diverticulitis without air or fluid collection similar to 06/23. CT 06/23 demonstrates acute distal descending diverticulitis into sigmoid colon without fluid collection or perforation. WBC 7.9, Hgb 10.4. VSS. Thoroughly reviewed the patient's medical history, family history, social history and review of systems with the patient today in the office. Please see medical record for pertinent positives. Past Medical History: Past Medical History: Diagnosis Date Arthritis COPD exacerbation (HCC) 06/20/2022 Pneumonia 03/04/2019 Primary hypertension 06/24/2023 Past Surgical History: Past Surgical History: Procedure Laterality Date BACK SURGERY N/A 2017 lower back in middle MANDIBLE SURGERY Bilateral 1983 wires on both jaws now TONSILLECTOMY (HISTORICAL) Current Medications: amLODIPine, 5 mg, Oral, Daily enoxaparin, 40 mg, SubCUTAneous, Daily hydrocortisone, , Topical, BID influenza, 0.5 mL, IntraMUSCular, Once mometasone-formoterol, 2 puff, Inhalation, BID piperacillin-tazobactam, 3,375 mg, IntraVENous, q8h polyethylene glycol (PEG) 3350, 17 g, Oral, Daily tiotropium, 1 capsule, Inhalation, Daily traZODone, 50 mg, Oral, qPM sodium chloride, 50 mL/hr, Last Rate: 50 mL/hr (06/30/23 4332) PRN medications: acetaminophen OR acetaminophen, albuterol, gabapentin, hydrALAZINE, HYDROmorphone, melatonin, naloxone, ondansetron ODT OR ondansetron, oxyCODONE OR oxyCODONE, polyethylene glycol (PEG) 3350, senna- docusate sodium Allergies: Codeine, Levofloxacin, and Sulfa antibiotics Social History: Social History Socioeconomic History Marital status: Spouse name: Not on file Number of children: Not on file Years of education: Not on file Highest education level: Not on file Occupational History Not on file Tobacco Use Smoking status: Every Day Packs/day: .5 Types: Cigarettes Smokeless tobacco: Current Tobacco comments: Quit smoking: trying to quit Substance and Sexual Activity Alcohol use: Not Currently Drug use: Never Sexual activity: Not on file Other Topics Concern Not on file Social History Narrative Not on file Social Determinants of Health Financial Resource Strain: Not on file Food Insecurity: Not on file Transportation Needs: Not on file Physical Activity: Not on file Stress: Not on file Social Connections: Not on file Intimate Partner Violence: Not on file Housing Stability: Not on file Family History: Family History Problem Relation Name Age of Onset No Known Problems Other No Known Problems Brother No Known Problems Maternal Grandfather No Known Problems Paternal Grandfather No Known Problems Sister No Known Problems Maternal Grandmother No Known Problems Paternal Grandmother REVIEW OF SYSTEMS: CONSTITUTIONAL: Negative for fatigue, and unexpected weight change HENT: Negative for hearing loss, nosebleeds, sneezing, sore throat, trouble swallowing and voice change. RESPIRATORY: Negative for cough, SOB, and wheezing CARDIOVASCULAR: Negative for chest pains and palpatations GASTROINTESTINAL: positive for abdominal pain, diarrhea, chills. Negative for fever, nausea/vomiting, constipation, hematochezia, or melena GENITOURINARY: negative for dysuria, urgency, frequency, and difficulty urinating. SKIN: negative for rash ALLERGIC/IMMUNOLOGIC: Negative for immunocompromised state HEMATOLOGIC/LYMPHATIC: Negative for adenopathy. Does not bruise/bleed easily. NEUROLOGICAL: Negative for seizures and syncope * All other ROS reviewed see HPI for pertinent positives and negatives. PHYSICAL EXAM: VITALS: BP (!) 142/86 (BP Location: Left arm, Patient Position: Lying) Pulse 76 Temp 36.9 C (98.4 F) (Temporal) Resp 16 Ht 5' 3 (1.6 m) Wt 140 lb 14 oz (63.9 kg) LMP (LMP Unknown) [id number]% BMI 24.95 kg/m 24HR INTAKE/OUTPUT: I/O last 3 completed shifts: In: 660 (10.3 mL/kg) [P.O.:610; IV Piggyback:50] Out: - (0 mL/kg) Weight: 63.9 kg No intake/output data recorded. CONSTITUTIONAL: Appears well nourished. No distress EYES: PERRL, conjunctiva normal ENT: Normocepalic,atraumatic, without obvious abnormality NECK: supple, symmetrical, trachea midline, no thyromegaly LUNGS: Resp effort easy and unlabored, breath sounds normal CARDIOVASCULAR: NO JVD, RRR, No murmur ABDOMEN: soft, nondistended, LLQ tenderness, peritoneal signs absent, no masses palpated and hernia MUSCULOSKELETAL: Normal range of motion, no edema NEUROLOGIC: Mental Status Exam: Level of Alertness: alert Sensation globally intact PSYCHIATRIC: Oriented to person, place, and time. Speech is normal, mood appears normal SKIN: Warm, dry, and intact DATA: CT abdomen pelvis w contrast Status: Final result Link to Procedure Log Procedure Log Orders Requiring a Screening Form Procedure Order Status Order ID Accession Number Form Status CT abdomen pelvis w contrast Completed [id number] Created PACS Images Show images for CT abdomen pelvis w contrast Study Result Narrative & Impression Patient Name: PRISCILA CHA : 1955 Exam Date/Time: 06/27/2023 16:35 Procedure: CT ABDOMEN PELVIS W CONTRAST Ordering Provider: SHAY ALEXANDER Reason For Exam: Abdominal pain, acute, nonlocalized EXAM: CT Abdomen and pelvis INDICATION: Abdominal pain COMPARISON: 06/23/2023 TECHNIQUE: CT of the abdomen and pelvis was performed with contrast (75 mL of Isovue 370 was injected intravenously). Coronal and sagittal reformats were obtained. Dose reduction was employed with automated exposure control. FINDINGS: LOWER CHEST: within normal limits. ABDOMEN: LIVER: within normal limits. BILE DUCTS: normal caliber. GALLBLADDER: No calcified gallstones. Normal caliber wall. PANCREAS: within normal limits. SPLEEN: within normal limits. ADRENALS: within normal limits. KIDNEYS: within normal limits. PELVIS: REPRODUCTIVE ORGANS: no pelvic masses. URETERS: within normal limits. BLADDER: within normal limits. BOWEL: Normal caliber. Appendix within normal limits. There is descending and sigmoid colonic diverticulosis. Again noted is mural thickening and stranding of the adjacent mesenteric fat about the mid to distal sigmoid colon. No pericolic fluid collection. No pneumoperitoneum. No enlarged mesenteric lymph nodes. PERITONEUM: no ascites or free air, no fluid collection. VESSELS: There is mild aneurysmal dilatation of the abdominal aorta measuring 3 cm. LYMPH NODES: No enlarged nodes. RETROPERITONEUM: within normal limits. ABDOMINAL WALL: within normal limits. BONES: Multilevel degenerative changes of the imaged spine. There is posterior lumbar spine fusion rods and screws at L4-L5. IMPRESSION: 1. Acute sigmoid diverticulitis. No pneumoperitoneum or fluid collection. Appearance is similar to prior exam from 06/23/2023. 2. Abdominal aortic aneurysm measuring 3 cm. Report Dictated on Electronically Signed By: Soila Martins MD Electronically Signed Date/Time: 06/27/2023 5:11 PM EDT Result History CT abdomen pelvis w contrast (Order #[id number]) on 06/27/2023 - Order Result History Report CT abdomen pelvis w contrast: Patient Communication Add Comments Not seen Breast Imaging Recommendations Priscila Cha No recommendations exist for this order. Risk Scores No Tyrer-Cuzick assessment data. No Risk Considerations assessment data. No NCC HBOC Guidelines assessment data. No NCCN Rasheed assessment data. No Risk Explanation Tyrer-Cuzick 8 assessment data. No BRCAPRO assessment data. No Myriad risk assessment data. No Reji risk assessment data. No Juani risk assessment data. No RESIDENT CAREGIVER Request ID assessment data. No [facility] hot mill observer ID assessment data. Signed by Signed Time Phone Pager Soila Martins MD 06/27/2023 17:11 Exam Information Status Exam Begun Exam Ended Final 06/27/2023 16:12 06/27/2023 16:24 External Results Report Open External Results Report Encounter View Encounter Screening Form Questions No questions have been answered for this form. Study Details Open Study Details Order Transmittal Tracking CT abdomen pelvis w contrast (Order #[id number]) on 06/27/[address] abdomen pelvis w contrast (Order #[id number]) on 06/27/23 CT abdomen pelvis w contrast Status: Final result Link to Procedure Log Procedure Log Orders Requiring a Screening Form Procedure Order Status Order ID Accession Number Form Status CT abdomen pelvis w contrast Completed [id number] Created PACS Images Show images for CT abdomen pelvis w contrast Study Result Narrative & Impression Patient Name: PRISCILA CHA : 1955 Exam Date/Time: 06/23/2023 18:04 Procedure: CT ABDOMEN PELVIS W CONTRAST Ordering Provider: CAREY JAKLYN Reason For Exam: LLQ, recent hx of diverticulitis CT ABDOMEN AND PELVIS WITH CONTRAST CLINICAL INDICATION: Left-sided abdominal pain. Recent history of acute diverticulitis TECHNIQUE: Axial CT images through the abdomen and pelvis with 3 mm reconstruction following dynamic intravenous infusion of 75 mL of Isovue-370 intravenous contrast media. Enteric contrast was not administered. Coronal and sagittal reconstructions included. Dose reduction was employed with automated exposure control. COMPARISON: 10/15/2021 FINDINGS: Limitations: Examination is limited for evaluation of the gastrointestinal tract due to lack of oral contrast. Mild patient motion artifact Lung base: Streaky bibasilar opacities reflect atelectasis/scarring. Liver: Appears fairly homogeneous without discrete lesion identified. Gallbladder/Biliary tree: Gallbladder appears within normal limits. Common bile duct is mildly dilated measuring up to 9 mm with some degree of distal tapering Spleen: No significant abnormality detected. Pancreas: Homogeneous without adjacent stranding or other significant abnormality. Adrenals: No discrete mass or nodule detected. Kidneys/pelvic organs: Symmetric contrast enhancement without obstructive uropathy. No nephrolithiasis. Tiny joe of intraluminal air within the urinary bladder. Uterus demonstrates a normal CT appearance for patient's age. GI tract: Tiny sliding-type hiatal hernia. No dilated loops of small bowel. Normal appendix. Mild amount retained colonic stool. Colonic diverticula most pronounced in the sigmoid colon and distal descending colon. These segments demonstrate some wall thickening with pericolonic stranding/fluid most pronounced at the distal descending colon Where there is localized stranding/fluid. Peritoneal cavity/retroperitoneum: No pneumatosis or pneumoperitoneum. Trace pelvic ascites. No focal fluid collection. No suspicious bulky adenopathy. Vasculature: Moderate to severe mixed atherosclerotic plaque with infrarenal abdominal aortic aneurysm measuring 3.3 x 3.0 cm, remeasured on prior study at 2.9 x 2.7 cm. Major venous structures enhance normally. Osseous structures/soft tissues: Degenerative spondylosis in the visualized spine with postsurgicalchanges at L4-L5. There is mild scoliotic curvature. Osteoarthritis right greater than left hip. Nosignificant soft tissue abnormality detected IMPRESSION: 1. Acute diverticulitis involving the the distal descending colon extending into the sigmoid colon.No focal fluid collection or evidence of perforation. 2. Moderate to severe mixed atherosclerotic plaque with infrarenal abdominal aortic aneurysm measuring 3.3 x 3.0 cm, previously 2.9 x 2.7 cm. Please see below recommendations. 3. Mild biliary ductal dilatation also seen on prior study and likely postsurgical. 4. Tiny joe of intraluminal air within the urinary bladder. This is nonspecific and could reflectrecent instrumentation or infection. Given proximity to sigmoid colon fistula could be considered though this is felt to be less likely. Reference: Recommended interval for initial follow-up imaging of ectatic aortas and aneurysms: Og et al. JACR. 2013 Diameter Imaging interval 2.5-2.9 cm 5 y 3.0-3.4 cm 3 y 3.5-3.9 cm 2 y 4.0-4.4 cm 1 y 4.5-4.9 cm 6 mo 5.0-5.5 cm 3-6 mo Report Dictated on Electronically Signed By: Moises Little MD Electronically Signed Date/Time: 06/23/2023 6:13 PM EDT Result History CT abdomen pelvis w contrast (Order #[id number]) on 06/23/2023 - Order Result History Report CT abdomen pelvis w contrast: Patient Communication Add Comments Not seen Breast Imaging Recommendations Priscila Cha No recommendations exist for this order. Risk Scores No Tyrer-Cuzick assessment data. No Risk Considerations assessment data. No NCC HBOC Guidelines assessment data. No NCCN Rasheed assessment data. No Risk Explanation Tyrer-Cuzick 8 assessment data. No BRCAPRO assessment data. No Myriad risk assessment data. No Reji risk assessment data. No Juani risk assessment data. No RESIDENT CAREGIVER Request ID assessment data. No [facility] hot mill observer ID assessment data. Signed by Signed Time Phone Pager Rainer Little MD 06/23/2023 18:13 Exam Information Status Exam Begun Exam Ended Final 06/23/2023 17:00 06/23/2023 17:20 External Results Report Open External Results Report Encounter View Encounter Screening Form Questions No questions have been answered for this form. Study Details Open Study Details Order Transmittal Tracking CT abdomen pelvis w contrast (Order #[id number]) on 06/23/[address] abdomen pelvis w contrast (Order #[id number]) on 06/23/23 CBC: Recent Labs 06/28/2325806/29/2331706/30/23458 WBC 8.5 6.5 7.9 HGB 10.5* 9.2* 10.4* HCT 32.5* 27.9* 31.6* PLT 379 330 433 BMP: Recent Labs 06/28/2325806/29/2331706/30/23458 NA 134* 135 137 K 3.5 3.4* 3.8 CL 103 110* 107 CO2 26 25 29 BUN 4* 3* 4* CREATININE 0.57 0.39* 0.52 GLUCOSE 129* 118* 80 Hepatic: Recent Labs 06/28/2325806/29/2331706/30/23458 AST 21 24 17 ALT 15 12 14 BILITOT 0.4 0.4 0.2 ALKPHOS 52 31* 51 Mag: Recent Labs 06/28/2325806/29/23317 MG 1.9 1.8 Phos: No results for input(s): PHOS in the last 72 hours. INR: No results for input(s): INR in the last 72 hours. IMPRESSION/RECOMMENDATIONS: Ms. Cha is a 67 y.o. F presenting with LLQ abdominal pain -CT 06/27 with acute sigmoid diverticulitis without air or fluid collection similar to 06/23 -CT 06/23 demonstrates acute distal descending diverticulitis into sigmoid colon without fluid collection or perforation -WBC 7.9, Hgb 10.4 -Exam with LLQ tenderness -Continue IV antibiotic therapy -Recommend diet as tolerated, may scale back to liquids if pain continues -GI following- recommend outpatient colonoscopy once inflammation subsides -Medical mgmt per primary team Disposition: Patient with persistent diverticular inflammation/pain, slightly improving and tolerating more PO intake. Continue above conservative management. Will continue to follow. Did discuss possibility of surgical intervention if fails to improve- patient would like to hold off at this time. Will continue to closely follow. Patient counseled on risks, benefits, and alternatives of treatment plan at length. Patient states an understanding and willingness to proceed with plan. Thank you for the opportunity to care for your patient, please don't hesitate to contact me for anyquestions or concerns you may have. SATINDER Solorzano Secure Chat during hours 7:30a-4:30p Monday-Monday After hours, please contact physician injection wax molder. * Espinoza Shay MD - 06/26/2023 3:02 PM EDTAssociated Order(s): Inpatient consult to Gastroenterology Images from the original note were not included. GI CONSULTATION Patient: Priscila Cha : 1955 Primary Care Physician: LEONID DEE MD Inpatient consult to Gastroenterology Consult performed by: Espinoza Shay MD Consult ordered by: Blair Wing MD CHIEF COMPLAINT: diverticulitis HISTORY OF PRESENT ILLNESS: 67 yo female with PMH as below whom GI is consulted for diverticulitis.Admitted Monday for acute uncomplicated diverticulitis. This is her first episode of diverticulitis. Started on Zosyn with normalization of WBC. Overnight, had 3 looser BM's with acute worsening of abdominal pain. Has been tolerating liquid diet thus far. Did have a colonoscopy 5 years ago and has an appointment scheduled with [facility] at the end of the month for an office visit. PAST MEDICAL HISTORY: Past Medical History: Diagnosis Date Arthritis COPD exacerbation (HCC) 06/20/2022 Pneumonia 03/04/2019 Primary hypertension 06/24/2023 PAST SURGICAL HISTORY: Past Surgical History: Procedure Laterality Date BACK SURGERY N/A 2017 lower back in middle MANDIBLE SURGERY Bilateral 1983 wires on both jaws now TONSILLECTOMY (HISTORICAL) FAMILY HISTORY: Family History Problem Relation Name Age of Onset No Known Problems Other No Known Problems Brother No Known Problems Maternal Grandfather No Known Problems Paternal Grandfather No Known Problems Sister No Known Problems Maternal Grandmother No Known Problems Paternal Grandmother SOCIAL HISTORY: TOBACCO: reports that she has been smoking cigarettes. She has been smoking an average of .5 packs per day. She uses smokeless tobacco. ETOH: reports that she does not currently use alcohol. DRUGS: reports no history of drug use. Medications: Prior to Admission medications Medication Sig Start Date End Date Taking? Authorizing Provider amLODIPine (Norvasc) 5 MG tablet Take 1 tablet by mouth daily. 06/23/22 Yes Historical Provider, Kjwufpkvbsn-Vwqlezrxl-Nlocla (Trelegy Ellipta) 100-62.5-25 MCG/ACT aerosol powder Inhale 1 puff daily. 01/06/23 Yes Historical Provider, albuterol 108 (90 Base) MCG/ACT inhaler Inhale 2 puffs every 4 hours as needed for shortness of breath or wheezing. 11/24/22 Historical Provider, doxycycline (Vibramycin) 100 MG capsule TAKE ONE CAPSULE BY MOUTH EVERY MORNING AND ONE CAPSULE EVERY EVENING FOR 5 DAYS 06/22/22 06/22/23 Doni Guzman MD gabapentin (Neurontin) 300 MG capsule Take 300 mg by mouth 2 times daily as needed. Historical Provider, ibuprofen 600 MG tablet Take 600 mg by mouth. Historical Provider, predniSONE (Deltasone) 10 MG tablet TAKE 4 TABLETS BY MOUTH DAILY FOR 3 DAYS, THEN 3 TABLETS DAILY FOR 3 DAYS, THEN 2 TABLETS DAILY FOR 3 DAYS, THEN 1 TABLET DAILY FOR 3 DAYS. 06/22/22 06/22/23 Doni Guzman MD traZODone (Desyrel) 50 MG tablet Take 50 mg by mouth every evening. 01/27/23 Historical Provider, amLODIPine (Norvasc) 5 MG tablet TAKE 1 TABLET BY MOUTH DAILY 06/22/22 06/23/23 Doni Guzman MD @[facility]@ ALLERGIES: Allergies Allergen Reactions Codeine Levofloxacin Other reaction(s): GI Upset, U Sulfa Antibiotics Other reaction(s): Vomiting REVIEW OF SYSTEMS: No fever, chills, or sweats. Normal appetite and weight. No APODACA, visual disturbance, eye pain, jaundice, sore throat or mouth ulcers. No skin rash or itching. No CP, SOB, BAKER, cough or wheeze. No urinary frequency, urgency, hematuria, or dysuria. No myalgia, arthralgia, or joint swelling. No weakness, numbness, or confusion. GI per HPI. No polyuria, polydipsia, heat or cold intolerance. PHYSICAL EXAM: VS: BP (!) 141/98 (BP Location: Left arm, Patient Position: Lying) Pulse 96 Temp 36.4 C (97.6 F) (Temporal) Resp 18 Ht 5' 3 (1.6 m) Wt 140 lb 14 oz (63.9 kg) LMP (LMP Unknown) SpO2 92% BMI 24.95 kg/m Body mass index is 24.95 kg/m . GENERAL: Pleasant and NAD. HEENT: NCAT, PERRLA, EOMI, Scleral anicteric. CV: RRR, NL S1/S2, no murmurs. LUNGS: CTA b/l. No W/R/R. Abdomen: + BS, soft, non-tender and non-distended. No rebound or guarding. No hernia. Neurologic: A&O x 3, No asterixis. Non-focal. Psych: Normal affect and speech. LABS AND IMAGING: Recent blood work and relevant radiologic and endoscopic studies were reviewed and discussed with the patient. Old records have not been requested. CBC: Recent Labs 06/24/23 0525 06/25/2342106/26/23421 WBC 9.4 7.1 8.7 HGB 12.1 11.1* 11.3* HCT 35.7 32.8* 34.1* PLT 428 392 424 HEPATIC: Recent Labs 06/25/2342106/26/23421 AST 18 21 ALT 13 14 BILITOT 0.2 0.4 ALKPHOS 55 53 LIPASE/AMYLASE: Recent Labs 06/23/23 1551 LIPASE 26 LACTATE: No lab exists for component: LACTA BNP: No results for input(s): BNP in the last 72 hours. INR: No results for input(s): INR in the last [address] abdomen pelvis w contrast Result Date: 06/23/2023 Patient Name: PRISCILA CHA : 1955 Exam Date/Time: 06/23/2023 18:04 Procedure: CT ABDOMEN PELVIS W CONTRAST Ordering Provider: CAREY JAKLYN Reason For Exam: LLQ, recent hx of diverticulitis CT ABDOMEN AND PELVIS WITH CONTRAST CLINICAL INDICATION: Left-sided abdominal pain. Recent history of acute diverticulitis TECHNIQUE: AxialCT images through the abdomen and pelvis with 3 mm reconstruction following dynamic intravenous infusion of 75 mL of Isovue-370 intravenous contrast media. Enteric contrast was not administered. Coronal and sagittal reconstructions included. Dose reduction was employed with automated exposure control. COMPARISON: 10/15/2021 FINDINGS: Limitations: Examination is limited for evaluation of the gastrointestinal tract due to lack of oral contrast. Mild patient motion artifact Lung base: Streaky bibasilar opacities reflect atelectasis/scarring. Liver: Appears fairly homogeneous without discrete lesion identified. Gallbladder/Biliary tree: Gallbladder appears within normal limits. Common bile duct is mildly dilated measuring up to 9 mm with some degree of distal tapering Spleen: No significant abnormality detected. Pancreas: Homogeneous without adjacent stranding or other significant abnormality. Adrenals: No discrete mass or nodule detected. Kidneys/pelvic organs: Symmetric contrast enhancement without obstructive uropathy. No nephrolithiasis. Tiny joe of intraluminal air within the urinary bladder. Uterus demonstrates a normal CT appearance for patient's age. GI tract: Tiny sliding-type hiatal hernia. No dilated loops of small bowel. Normal appendix. Mild amount retained colonic stool. Colonic diverticula most pronounced in the sigmoid colon and distal descending colon. These segments demonstrate some wall thickening with pericolonic stranding/fluid most pronounced at the distaldescending colon Where there is localized stranding/fluid. Peritoneal cavity/retroperitoneum: No pne umatosis or pneumoperitoneum. Trace pelvic ascites. No focal fluid collection. No suspicious bulky adenopathy. Vasculature: Moderate to severe mixed atherosclerotic plaque with infrarenal abdominal aortic aneurysm measuring 3.3 x 3.0 cm, remeasured on prior study at 2.9 x 2.7 cm. Major venous structures enhance normally. Osseous structures/soft tissues: Degenerative spondylosis in the visualized spine with postsurgical changes at L4-L5. There is mild scoliotic curvature. Osteoarthritis right greater than left hip. No significant soft tissue abnormality detected 1. Acute diverticulitis involving the the distal descending colon extending into the sigmoid colon.No focal fluid collection or evidence of perforation. 2. Moderate to severe mixed atherosclerotic plaque with infrarenal abdominal aortic aneurysm measuring 3.3 x 3.0 cm, previously 2.9 x 2.7 cm. Please see below recommendations. 3. Mild biliary ductal dilatation also seen on prior study and likelypostsurgical. 4. Tiny joe of intraluminal air within the urinary bladder. This is nonspecific andcould reflect recent instrumentation or infection. Given proximity to sigmoid colon fistula could be considered though this is felt to be less likely. Reference: Recommended interval for initial follow-up imaging of ectatic aortas and aneurysms: Og et al. JACR. 2013 Diameter Imaging interval 2.5-2.9 cm 5 y 3.0-3.4 cm 3 y 3.5-3.9 cm 2 y 4.0-4.4 cm 1 y 4.5-4.9 cm 6 mo 5.0-5.5 cm 3-6 mo Report Dictated on Electronically Signed By: Moises Little MD Electronically S igned Date/Time: 06/23/2023 6:13 PM EDT IMPRESSION: Acute uncomplicated diverticulitis - CT scan on Monday showed descending/sigmoid involvement, initial leukocytosis now improved on zosyn, worsening abdominal pain overnight after several loose BM's RECOMMENDATIONS: Advance diet If pain worsens significantly, would repeat CT abdomen to assess for any changes Continue antibiotics for now documented in this [facility]10-18-2023 Plan of care note* Care Plan - Kary Liang RN - 07/05/2023 10:07 PM EDT Problem: Pain - Adult Goal: Verbalizes/displays adequate comfort level or baseline comfort level Outcome: Progressing Problem: Safety - Adult Goal: Free from fall injury Outcome: Progressing The patient is Moderately Stable - Low risk of patient condition declining or worsening The patient's goals for the shift include sleep The clinical goals for the shift include no pain [id number] [facility]* Care Coordination - Tiffany Bansal RN - 07/05/2023 1:36 PM EDT Images from the original note were not included. Care Management Progress Note TRANSITIONAL CARE DAILY NOTE/UPDATES: Patient remains on 2E due to diverticulitis. Clinical updates: Patient to have a CT with contrast of abdomen today. Patient still having abdominal pain. On PO antibiotics. Discharge plan: home when medically stable. Spoke with patient at bedside, she denied any needs, she states she is hoping to go home today after CT scan. Discharge obstacles: none noted. TCC to continue to follow. Discharge Milestones and Delays Expected Date/Time: 07/06/[address] discharge order Complete med reconciliation Case mgmt discharge readiness Clinical Stability Diagnsotic Workup Expected Discharge History Expected Date/Time Set By Reviewed At 07/06/2023 Tiffany Bansal RN 07/05/2023 8:28 AM TCC estimate 07/04/2023 Tiffany Bansal RN 07/03/2023 8:08 AM TCC estimate IV antibiotic completion 07/04/2023 Tiffany Bansal RN 06/30/2023 2:35 PM 06/30/2023 Tiffany Bansal RN 06/30/2023 8:13 AM TCC estimate 06/30/2023 Tiffany Bansal RN 06/29/2023 7:54 AM 06/29/2023 Tiffany Bansal RN 06/28/2023 8:17 AM 06/28/2023 Tiffany Bansal RN 06/27/2023 7:48 AM 06/27/2023 Tiffany Bansal RN 06/26/2023 8:14 AM 06/26/2023 Klever Crawford MD 06/24/2023 3:54 AM 06/26/2023 Thu Hogue MD 06/23/2023 9:18 PM Length of Stay (Days): 12 GMLOS: 2.6 [id number] Note* Care Coordination - Tiffany Bansal RN - 07/05/2023 1:36 PM EDT Images from the original note were not included. Care Management Progress Note TRANSITIONAL CARE DAILY NOTE/UPDATES: Patient remains on 2E due to diverticulitis. Clinical updates: Patient to have a CT with contrast of abdomen today. Patient still having abdominal pain. On PO antibiotics. Discharge plan: home when medically stable. Spoke with patient at bedside, she denied any needs, she states she is hoping to go home today after CT scan. Discharge obstacles: none noted. TCC to continue to follow. Discharge Milestones and Delays Expected Date/Time: 07/06/[address] discharge order Complete med reconciliation Case mgmt discharge readiness Clinical Stability Diagnsotic Workup Expected Discharge History Expected Date/Time Set By Reviewed At 07/06/2023 Tiffany Bansal RN 07/05/2023 8:28 AM TCC estimate 07/04/2023 Tiffany Bansal RN 07/03/2023 8:08 AM TCC estimate IV antibiotic completion 07/04/2023 Tiffany Bansal RN 06/30/2023 2:35 PM 06/30/2023 Tiffany Bansal RN 06/30/2023 8:13 AM TCC estimate 06/30/2023 Tiffany Bansal RN 06/29/2023 7:54 AM 06/29/2023 Tiffany Bansal RN 06/28/2023 8:17 AM 06/28/2023 Tiffany Bansal RN 06/27/2023 7:48 AM 06/27/2023 Tiffany Bansal RN 06/26/2023 8:14 AM 06/26/2023 Klever Crawford MD 06/24/2023 3:54 AM 06/26/2023 Thu Hogue MD 06/23/2023 9:18 PM Length of Stay (Days): 12 GMLOS: 2.6 [facility] [id number] Plan of care note* Care Plan - Kary Liang RN - 07/04/2023 11:22 PM EDT Problem: Pain - Adult Goal: Verbalizes/displays adequate comfort level or baseline comfort level Outcome: Progressing Problem: Safety - Adult Goal: Free from fall injury Outcome: Progressing The patient is Moderately Stable - Low risk of patient condition declining or worsening The patient's goals for the shift include sleep The clinical goals for the shift include no pain [id number] Note* Care Coordination - Tiffany Bansal RN - 07/03/2023 12:39 PM EDT Images from the original note were not included. Care Management Progress Note Patient remains on 2E due to diverticulitis. Clinical updates: Patient on IV antibiotics until 07/04. Diet regular low fat, low fiber, abdominalpain after eating pizza. General Surgery consulted. GI consulted. Discharge plan: home when medically stable. Discharge obstacles: none noted. TCC to continue to follow. Discharge Milestones and Delays Expected Date/Time: 07/04/[address] discharge order Complete med reconciliation Case mgmt discharge readiness Clinical Stability Diagnsotic Workup Expected Discharge History Expected Date/Time Set By Reviewed At 07/04/2023 Tiffany Bansal RN 07/03/2023 8:08 AM TCC estimate IV antibiotic completion 07/04/2023 Tiffany Bansal RN 06/30/2023 2:35 PM 06/30/2023 Tiffany Bansal RN 06/30/2023 8:13 AM TCC estimate 06/30/2023 Tiffany Bansal RN 06/29/2023 7:54 AM 06/29/2023 Tiffany Bansal RN 06/28/2023 8:17 AM 06/28/2023 Tiffany Bansal RN 06/27/2023 7:48 AM 06/27/2023 Tiffany Bansal RN 06/26/2023 8:14 AM 06/26/2023 Klever Crawford MD 06/24/2023 3:54 AM 06/26/2023 Thu Hogue MD 06/23/2023 9:18 PM Length of Stay (Days): 10 GMLOS: 2.6 [facility] [id number] Note* Care Coordination - Tiffany Bansal RN - 07/03/2023 12:39 PM EDT Images from the original note were not included. Care Management Progress Note Patient remains on 2E due to diverticulitis. Clinical updates: Patient on IV antibiotics until 07/04. Diet regular low fat, low fiber, abdominalpain after eating pizza. General Surgery consulted. GI consulted. Discharge plan: home when medically stable. Discharge obstacles: none noted. TCC to continue to follow. Discharge Milestones and Delays Expected Date/Time: 07/04/[address] discharge order Complete med reconciliation Case mgmt discharge readiness Clinical Stability Diagnsotic Workup Expected Discharge History Expected Date/Time Set By Reviewed At 07/04/2023 Tiffany Bansal RN 07/03/2023 8:08 AM TCC estimate IV antibiotic completion 07/04/2023 Tiffany Bansal RN 06/30/2023 2:35 PM 06/30/2023 Tiffany Bansal RN 06/30/2023 8:13 AM TCC estimate 06/30/2023 Tiffany Bansal RN 06/29/2023 7:54 AM 06/29/2023 Tiffany Bansal RN 06/28/2023 8:17 AM 06/28/2023 Tiffany Bansal RN 06/27/2023 7:48 AM 06/27/2023 Tiffany Bansal RN 06/26/2023 8:14 AM 06/26/2023 Klever Crawford MD 06/24/2023 3:54 AM 06/26/2023 Thu Hogue MD 06/23/2023 9:18 PM Length of Stay (Days): 10 GMLOS: 2.6 [id number] Plan of care note* Care Plan - Isa Bustos RN - 07/01/2023 6:49 PM EDT The patient is Moderately Stable - Low risk of patient condition declining or worsening The patient's goals for the shift include sleep The clinical goals for the shift include no pain Over the shift, the patient did not make progress toward the following goals. Barriers to progression include discomfort. Recommendations to address these barriers include continue treatment as prescribed. [facility] [id number] Note* Care Coordination - Tiffany Bansal RN - 06/30/2023 2:35 PM EDT Images from the original note were not included. Care Management Progress Note Patient remains on 2E due to diverticulitis. Clinical updates: Patient on IV antibiotics, IV fluids. Diet advanced back to regular GI bland. Still having abdominal pain, but not with eating. General Surgery consulted. GI consulted. Plans for possible IV antibiotics until 07/04. Discharge plan: home when medically stable. Discharge obstacles: none noted. TCC to continue to follow. Discharge Milestones and Delays Expected Date/Time: 07/04/[address] discharge order Complete med reconciliation Case mgmt discharge readiness Clinical Stability Diagnsotic Workup Expected Discharge History Expected Date/Time Set By Reviewed At 07/04/2023 Tiffany Bansal RN 06/30/2023 2:35 PM TCC estimate IV antibiotic completion 06/30/2023 Tiffany Bansal RN 06/30/2023 8:13 AM TCC estimate 06/30/2023 Tiffany Bansal RN 06/29/2023 7:54 AM 06/29/2023 Tiffany Bansal RN 06/28/2023 8:17 AM 06/28/2023 Tiffany Bansal RN 06/27/2023 7:48 AM 06/27/2023 Tiffany Bansal RN 06/26/2023 8:14 AM 06/26/2023 Klever Crawford MD 06/24/2023 3:54 AM 06/26/2023 Thu Hogue MD 06/23/2023 9:18 PM Length of Stay (Days): 7 GMLOS: 2.6 [facility] [id number] Note* Care Coordination - Tiffany Bansal RN - 06/30/2023 2:35 PM EDT Images from the original note were not included. Care Management Progress Note Patient remains on 2E due to diverticulitis. Clinical updates: Patient on IV antibiotics, IV fluids. Diet advanced back to regular GI bland. Still having abdominal pain, but not with eating. General Surgery consulted. GI consulted. Plans for possible IV antibiotics until 07/04. Discharge plan: home when medically stable. Discharge obstacles: none noted. TCC to continue to follow. Discharge Milestones and Delays Expected Date/Time: 07/04/[address] discharge order Complete med reconciliation Case mgmt discharge readiness Clinical Stability Diagnsotic Workup Expected Discharge History Expected Date/Time Set By Reviewed At 07/04/2023 Tiffany Bansal RN 06/30/2023 2:35 PM TCC estimate IV antibiotic completion 06/30/2023 Tiffany Bansal RN 06/30/2023 8:13 AM TCC estimate 06/30/2023 Tiffany Bansal RN 06/29/2023 7:54 AM 06/29/2023 Tiffany Bansal RN 06/28/2023 8:17 AM 06/28/2023 Tiffany Bansal RN 06/27/2023 7:48 AM 06/27/2023 Tiffany Bansal RN 06/26/2023 8:14 AM 06/26/2023 Klever Crawford MD 06/24/2023 3:54 AM 06/26/2023 Thu Hogue MD 06/23/2023 9:18 PM Length of Stay (Days): 7 GMLOS: 2.6 [facility] [id number] Consult note* Adria Lopez MD - 06/30/2023 1:26 PM EDTAssociated Order(s): IP CONSULT TO GENERAL SURGERY Images from the original note were not included. [facility] Medical [facility] - Surgery [facility] Physicians Surgery Patient Name: Priscila Cha Date: 06/30/2023 Patient seen and examined by myself and I agree with NORA note below Patient resting in bed and appears comfortable Is a persistent abdominal pain mainly left lower quadrant and suprapubic and also some fecal incontinence Abdomen soft nondistended mild tenderness on deep palpation left lower quadrant Labs and imaging reviewed Assessment /Plan: Acute sigmoid diverticulitis No acute surgical indication Recommend continue with symptomatic care and at this point given no fevers and persistently low andnormal white count probably okay to stop antibiotics Discussion with patient the indications for surgery Surgery will continue to follow for now Patient counseled on risks,benefits, and alternatives of treatement plan at length. Patient states an understanding and willingness to proceed with plan. I personally supervised my NORA and/or resident in the evaluation and management of Priscila Cha in the development of a treatment plan for this patient. I personally interviewed the patient and performed an individual physical examination. In addition, I discussed the patient's condition and treatment options with them. I have also reviewed and agree with the past medical, family and social history and care plan unless otherwise noted. All of the patient's questions were answered. This case represents high level care including chart review, care coordination and face to face encounter was spent discussing/counseling the patient regarding the care plan for this patient. The patient was seen and examined independently and relevant data reviewed by myself. A full chart review was performed. Adria Lopez MD [facility] General Surgery 4:16 PM 06/30/2023 Department of General Surgery Consult PATIENT NAME: Priscila Cha DATE OF : 1955 ADMISSION DATE: 06/23/2023 3:12 PM TODAY'S DATE: 06/30/2023 Reason for Consult: persistent diverticulitis HISTORY OF PRESENT ILLNESS: The patient is a 67 y.o. female who presents with LLQ abdominal pain. Patient states that she firsthad onset of LLQ pain about 3 weeks ago. She notes that a few days prior to onset she had some cheese popcorn but denies other known trigger including injury to the area or new medications. Patient denies past history of similar symptoms. She states that the pain was located in the LLQ without radiation. She attempted outpatient treatment and did not improve on PO Augmentin. Patient states that she received this treatment at [facility]. However, symptoms persisted and caused patient to double over on the floor, which prompted her to present to [facility] on 06/23 for further evaluation. She notes that since hospitalization the pain has migrated from the LLQ and radiates into the R side of herabdomen and into her back. She has tolerated progression of PO intake and states that she has minimal discomfort after eating (states that earlier in the week she did have LLQ after food). Patient presently denies nausea/vomiting or fever/chills. She notes urinary urgency but denies hematuria. Patient notes loose bowel movements but denies hematochezia or melena. PMH notable for HTN and COPD. PSHnotable for tonsillectomy and colonoscopy 5 years ago with findings of diverticulosis. Fhx notable for grandmother with colon cancer (underwent colectomy) and nephew with diverticulitis (underwent col ectomy). CT 06/27 with acute sigmoid diverticulitis without air or fluid collection similar to 06/23. CT 06/23 demonstrates acute distal descending diverticulitis into sigmoid colon without fluid collection or perforation. WBC 7.9, Hgb 10.4. VSS. Thoroughly reviewed the patient's medical history, family history, social history and review of systems with the patient today in the office. Please see medical record for pertinent positives. Past Medical History: Past Medical History: Diagnosis Date Arthritis COPD exacerbation (HCC) 06/20/2022 Pneumonia 03/04/2019 Primary hypertension 06/24/2023 Past Surgical History: Past Surgical History: Procedure Laterality Date BACK SURGERY N/A 2017 lower back in middle MANDIBLE SURGERY Bilateral 1983 wires on both jaws now TONSILLECTOMY (HISTORICAL) Current Medications: amLODIPine, 5 mg, Oral, Daily enoxaparin, 40 mg, SubCUTAneous, Daily hydrocortisone, , Topical, BID influenza, 0.5 mL, IntraMUSCular, Once mometasone-formoterol, 2 puff, Inhalation, BID piperacillin-tazobactam, 3,375 mg, IntraVENous, q8h polyethylene glycol (PEG) 3350, 17 g, Oral, Daily tiotropium, 1 capsule, Inhalation, Daily traZODone, 50 mg, Oral, qPM sodium chloride, 50 mL/hr, Last Rate: 50 mL/hr (06/30/23 7206) PRN medications: acetaminophen OR acetaminophen, albuterol, gabapentin, hydrALAZINE, HYDROmorphone, melatonin, naloxone, ondansetron ODT OR ondansetron, oxyCODONE OR oxyCODONE, polyethylene glycol (PEG) 3350, senna- docusate sodium Allergies: Codeine, Levofloxacin, and Sulfa antibiotics Social History: Social History Socioeconomic History Marital status: Spouse name: Not on file Number of children: Not on file Years of education: Not on file Highest education level: Not on file Occupational History Not on file Tobacco Use Smoking status: Every Day Packs/day: .5 Types: Cigarettes Smokeless tobacco: Current Tobacco comments: Quit smoking: trying to quit Substance and Sexual Activity Alcohol use: Not Currently Drug use: Never Sexual activity: Not on file Other Topics Concern Not on file Social History Narrative Not on file Social Determinants of Health Financial Resource Strain: Not on file Food Insecurity: Not on file Transportation Needs: Not on file Physical Activity: Not on file Stress: Not on file Social Connections: Not on file Intimate Partner Violence: Not on file Housing Stability: Not on file Family History: Family History Problem Relation Name Age of Onset No Known Problems Other No Known Problems Brother No Known Problems Maternal Grandfather No Known Problems Paternal Grandfather No Known Problems Sister No Known Problems Maternal Grandmother No Known Problems Paternal Grandmother REVIEW OF SYSTEMS: CONSTITUTIONAL: Negative for fatigue, and unexpected weight change HENT: Negative for hearing loss, nosebleeds, sneezing, sore throat, trouble swallowing and voice change. RESPIRATORY: Negative for cough, SOB, and wheezing CARDIOVASCULAR: Negative for chest pains and palpatations GASTROINTESTINAL: positive for abdominal pain, diarrhea, chills. Negative for fever, nausea/vomiting, constipation, hematochezia, or melena GENITOURINARY: negative for dysuria, urgency, frequency, and difficulty urinating. SKIN: negative for rash ALLERGIC/IMMUNOLOGIC: Negative for immunocompromised state HEMATOLOGIC/LYMPHATIC: Negative for adenopathy. Does not bruise/bleed easily. NEUROLOGICAL: Negative for seizures and syncope * All other ROS reviewed see HPI for pertinent positives and negatives. PHYSICAL EXAM: VITALS: BP (!) 142/86 (BP Location: Left arm, Patient Position: Lying) Pulse 76 Temp 36.9 C (98.4 F) (Temporal) Resp 16 Ht 5' 3 (1.6 m) Wt 140 lb 14 oz (63.9 kg) LMP (LMP Unknown) KqH922% BMI 24.95 kg/m 24HR INTAKE/OUTPUT: I/O last 3 completed shifts: In: 660 (10.3 mL/kg) [P.O.:610; IV Piggyback:50] Out: - (0 mL/kg) Weight: 63.9 kg No intake/output data recorded. CONSTITUTIONAL: Appears well nourished. No distress EYES: PERRL, conjunctiva normal ENT: Normocepalic,atraumatic, without obvious abnormality NECK: supple, symmetrical, trachea midline, no thyromegaly LUNGS: Resp effort easy and unlabored, breath sounds normal CARDIOVASCULAR: NO JVD, RRR, No murmur ABDOMEN: soft, nondistended, LLQ tenderness, peritoneal signs absent, no masses palpated and hernia MUSCULOSKELETAL: Normal range of motion, no edema NEUROLOGIC: Mental Status Exam: Level of Alertness: alert Sensation globally intact PSYCHIATRIC: Oriented to person, place, and time. Speech is normal, mood appears normal SKIN: Warm, dry, and intact DATA: CT abdomen pelvis w contrast Status: Final result Link to Procedure Log Procedure Log Orders Requiring a Screening Form Procedure Order Status Order ID Accession Number Form Status CT abdomen pelvis w contrast Completed [id number] Created PACS Images Show images for CT abdomen pelvis w contrast Study Result Narrative & Impression [facility] 1955 [id number] Exam Date/Time: 06/27/2023 16:35 Procedure: CT ABDOMEN PELVIS W CONTRAST Ordering Provider: SHAY ALEXANDER Reason For Exam: Abdominal pain, acute, nonlocalized EXAM: CT Abdomen and pelvis INDICATION: Abdominal pain COMPARISON: 06/23/2023 TECHNIQUE: CT of the abdomen and pelvis was performed with contrast (75 mL of Isovue 370 was injected intravenously). Coronal and sagittal reformats were obtained. Dose reduction was employed with automated exposure control. FINDINGS: LOWER CHEST: within normal limits. ABDOMEN: LIVER: within normal limits. BILE DUCTS: normal caliber. GALLBLADDER: No calcified gallstones. Normal caliber wall. PANCREAS: within normal limits. SPLEEN: within normal limits. ADRENALS: within normal limits. KIDNEYS: within normal limits. PELVIS: REPRODUCTIVE ORGANS: no pelvic masses. URETERS: within normal limits. BLADDER: within normal limits. BOWEL: Normal caliber. Appendix within normal limits. There is descending and sigmoid colonic diverticulosis. Again noted is mural thickening and stranding of the adjacent mesenteric fat about the mid to distal sigmoid colon. No pericolic fluid collection. No pneumoperitoneum. No enlarged mesenteric lymph nodes. PERITONEUM: no ascites or free air, no fluid collection. VESSELS: There is mild aneurysmal dilatation of the abdominal aorta measuring 3 cm. LYMPH NODES: No enlarged nodes. RETROPERITONEUM: within normal limits. ABDOMINAL WALL: within normal limits. BONES: Multilevel degenerative changes of the imaged spine. There is posterior lumbar spine fusion rods and screws at L4-L5. IMPRESSION: 1. Acute sigmoid diverticulitis. No pneumoperitoneum or fluid collection. Appearance is similar to prior exam from 06/23/2023. 2. Abdominal aortic aneurysm measuring 3 cm. Report Dictated on Electronically Signed By: Soila Martins MD Electronically Signed Date/Time: 06/27/2023 5:11 PM EDT Result History CT abdomen pelvis w contrast (Order #[id number]) on 06/27/2023 - Order Result History Report CT abdomen pelvis w contrast: Patient Communication Add Comments Not seen Breast Imaging Recommendations ShahidamariajosePriscila No recommendations exist for this order. Risk Scores No Tyrer-Cuzick assessment data. No Risk Considerations assessment data. No NCC HBOC Guidelines assessment data. No NCCN Rasheed assessment data. No Risk Explanation Tyrer-Cuzick 8 assessment data. No BRCAPRO assessment data. No Myriad risk assessment data. No Reji risk assessment data. No Juani risk assessment data. No RESIDENT CAREGIVER Request ID assessment data. No RESIDENT CAREGIVER hot mill observer ID assessment data. Signed by Signed Time Phone Pager Soila Martins MD 06/27/2023 17:11 Exam Information Status Exam Begun Exam Ended Final 06/27/2023 16:12 06/27/2023 16:24 External Results Report Open External Results Report Encounter View Encounter Screening Form Questions No questions have been answered for this form. Study Details Open Study Details Order Transmittal Tracking CT abdomen pelvis w contrast (Order #[id number]) on 06/27/[address] abdomen pelvis w contrast (Order #[id number]) on 06/27/23 CT abdomen pelvis w contrast Status: Final result Link to Procedure Log Procedure Log Orders Requiring a Screening Form Procedure Order Status Order ID Accession Number Form Status CT abdomen pelvis w contrast Completed [id number] Created PACS Images Show images for CT abdomen pelvis w contrast Study Result Narrative & Impression Patient Name: PRISCILA CHA : 1955 Exam Date/Time: 06/23/2023 18:04 Procedure: CT ABDOMEN PELVIS W CONTRAST Ordering Provider: CAREY JAKLYN Reason For Exam: LLQ, recent hx of diverticulitis CT ABDOMEN AND PELVIS WITH CONTRAST CLINICAL INDICATION: Left-sided abdominal pain. Recent history of acute diverticulitis TECHNIQUE: Axial CT images through the abdomen and pelvis with 3 mm reconstruction following dynamic intravenous infusion of 75 mL of Isovue-370 intravenous contrast media. Enteric contrast was not administered. Coronal and sagittal reconstructions included. Dose reduction was employed with automated exposure control. COMPARISON: 10/15/2021 FINDINGS: Limitations: Examination is limited for evaluation of the gastrointestinal tract due to lack of oral contrast. Mild patient motion artifact Lung base: Streaky bibasilar opacities reflect atelectasis/scarring. Liver: Appears fairly homogeneous without discrete lesion identified. Gallbladder/Biliary tree: Gallbladder appears within normal limits. Common bile duct is mildly dilated measuring up to 9 mm with some degree of distal tapering Spleen: No significant abnormality detected. Pancreas: Homogeneous without adjacent stranding or other significant abnormality. Adrenals: No discrete mass or nodule detected. Kidneys/pelvic organs: Symmetric contrast enhancement without obstructive uropathy. No nephrolithiasis. Tiny joe of intraluminal air within the urinary bladder. Uterus demonstrates a normal CT appearance for patient's age. GI tract: Tiny sliding-type hiatal hernia. No dilated loops of small bowel. Normal appendix. Mild amount retained colonic stool. Colonic diverticula most pronounced in the sigmoid colon and distal descending colon. These segments demonstrate some wall thickening with pericolonic stranding/fluid most pronounced at the distal descending colon Where there is localized stranding/fluid. Peritoneal cavity/retroperitoneum: No pneumatosis or pneumoperitoneum. Trace pelvic ascites. No focal fluid collection. No suspicious bulky adenopathy. Vasculature: Moderate to severe mixed atherosclerotic plaque with infrarenal abdominal aortic aneurysm measuring 3.3 x 3.0 cm, remeasured on prior study at 2.9 x 2.7 cm. Major venous structures enhance normally. Osseous structures/soft tissues: Degenerative spondylosis in the visualized spine with postsurgicalchanges at L4-L5. There is mild scoliotic curvature. Osteoarthritis right greater than left hip. Nosignificant soft tissue abnormality detected IMPRESSION: 1. Acute diverticulitis involving the the distal descending colon extending into the sigmoid colon.No focal fluid collection or evidence of perforation. 2. Moderate to severe mixed atherosclerotic plaque with infrarenal abdominal aortic aneurysm measuring 3.3 x 3.0 cm, previously 2.9 x 2.7 cm. Please see below recommendations. 3. Mild biliary ductal dilatation also seen on prior study and likely postsurgical. 4. Tiny joe of intraluminal air within the urinary bladder. This is nonspecific and could reflectrecent instrumentation or infection. Given proximity to sigmoid colon fistula could be considered though this is felt to be less likely. Reference: Recommended interval for initial follow-up imaging of ectatic aortas and aneurysms: Og et al. JACR. 2013 Diameter Imaging interval 2.5-2.9 cm 5 y 3.0-3.4 cm 3 y 3.5-3.9 cm 2 y 4.0-4.4 cm 1 y 4.5-4.9 cm 6 mo 5.0-5.5 cm 3-6 mo Report Dictated on Electronically Signed By: Moises Little MD Electronically Signed Date/Time: 06/23/2023 6:13 PM EDT Result History CT abdomen pelvis w contrast (Order #[id number]) on 06/23/2023 - Order Result History Report CT abdomen pelvis w contrast: Patient Communication Add Comments Not seen Breast Imaging Recommendations Priscila Cha No recommendations exist for this order. Risk Scores No Tyrer-Cuzick assessment data. No Risk Considerations assessment data. No NCC HBOC Guidelines assessment data. No NCCN Rasheed assessment data. No Risk Explanation Tyrer-Cuzick 8 assessment data. No BRCAPRO assessment data. No Myriad risk assessment data. No Reji risk assessment data. No Juani risk assessment data. No [facility] Request ID assessment data. No [facility] hot mill observer ID assessment data. Signed by Signed Time Phone Pager Rainer Little MD 06/23/2023 18:13 Exam Information Status Exam Begun Exam Ended Final 06/23/2023 17:00 06/23/2023 17:20 External Results Report Open External Results Report Encounter View Encounter Screening Form Questions No questions have been answered for this form. Study Details Open Study Details Order Transmittal Tracking CT abdomen pelvis w contrast (Order #[id number]) on 06/23/[address] abdomen pelvis w contrast (Order #[id number]) on 06/23/23 CBC: Recent Labs 06/28/2325806/29/2331706/30/23458 WBC 8.5 6.5 7.9 HGB 10.5* 9.2* 10.4* HCT 32.5* 27.9* 31.6* PLT 379 330 433 BMP: Recent Labs 06/28/2325806/29/2331706/30/23458 NA 134* 135 137 K 3.5 3.4* 3.8 CL 103 110* 107 CO2 26 25 29 BUN 4* 3* 4* CREATININE 0.57 0.39* 0.52 GLUCOSE 129* 118* 80 Hepatic: Recent Labs 06/28/2325806/29/2331706/30/23458 AST 21 24 17 ALT 15 12 14 BILITOT 0.4 0.4 0.2 ALKPHOS 52 31* 51 Mag: Recent Labs 06/28/2325806/29/23317 MG 1.9 1.8 Phos: No results for input(s): PHOS in the last 72 hours. INR: No results for input(s): INR in the last 72 hours. IMPRESSION/RECOMMENDATIONS: Ms. Cha is a 67 y.o. F presenting with LLQ abdominal pain -CT 06/27 with acute sigmoid diverticulitis without air or fluid collection similar to 06/23 -CT 06/23 demonstrates acute distal descending diverticulitis into sigmoid colon without fluid collection or perforation -WBC 7.9, Hgb 10.4 -Exam with LLQ tenderness -Continue IV antibiotic therapy -Recommend diet as tolerated, may scale back to liquids if pain continues -GI following- recommend outpatient colonoscopy once inflammation subsides -Medical mgmt per primary team Disposition: Patient with persistent diverticular inflammation/pain, slightly improving and tolerating more PO intake. Continue above conservative management. Will continue to follow. Did discuss possibility of surgical intervention if fails to improve- patient would like to hold off at this time. Will continue to closely follow. Patient counseled on risks, benefits, and alternatives of treatment plan at length. Patient states an understanding and willingness to proceed with plan. Thank you for the opportunity to care for your patient, please don't hesitate to contact me for anyquestions or concerns you may have. SATINDER Solorzano Secure Chat during hours 7:30a-4:30p Monday-Monday After hours, please contact physician injection wax molder. [facility] [id number] Note* Care Coordination - Tiffany Bansal RN - 06/29/2023 2:00 PM EDT Images from the original note were not included. Care Management Progress Note Patient remains on 2E due to diverticulitis. Clinical updates: Patient on IV antibiotics, IV fluids. Diet was regular, was changed back to full liquid, as patient was having N/V. GI consulted. Discharge plan: home when medically stable. Discharge obstacles: none noted. TCC to continue to follow. Discharge Milestones and Delays Expected Date/Time: 06/30/[address] discharge order Complete med reconciliation Case mgmt discharge readiness Clinical Stability Diagnsotic Workup Expected Discharge History Expected Date/Time Set By Reviewed At 06/30/2023 Tiffany Bansal RN 06/29/2023 7:54 AM TCC estimate 06/29/2023 Tiffany Bansal RN 06/28/2023 8:17 AM 06/28/2023 Tiffany Bansal RN 06/27/2023 7:48 AM 06/27/2023 Tiffany Bansal RN 06/26/2023 8:14 AM 06/26/2023 Klever Crawford MD 06/24/2023 3:54 AM 06/26/2023 Thu Hogue MD 06/23/2023 9:18 PM Length of Stay (Days): 6 GMLOS: 2.6 [facility] [id number] Note* Care Coordination - Tiffany Bansal RN - 06/29/2023 2:00 PM EDT Images from the original note were not included. Care Management Progress Note Patient remains on 2E due to diverticulitis. Clinical updates: Patient on IV antibiotics, IV fluids. Diet was regular, was changed back to full liquid, as patient was having N/V. GI consulted. Discharge plan: home when medically stable. Discharge obstacles: none noted. TCC to continue to follow. Discharge Milestones and Delays Expected Date/Time: 06/30/[address] discharge order Complete med reconciliation Case mgmt discharge readiness Clinical Stability Diagnsotic Workup Expected Discharge History Expected Date/Time Set By Reviewed At 06/30/2023 Tiffany Bansal RN 06/29/2023 7:54 AM TCC estimate 06/29/2023 Tiffany Bansal RN 06/28/2023 8:17 AM 06/28/2023 Tiffany Bansal RN 06/27/2023 7:48 AM 06/27/2023 Tiffany Bansal RN 06/26/2023 8:14 AM 06/26/2023 Klever Crawford MD 06/24/2023 3:54 AM 06/26/2023 Thu Hogue MD 06/23/2023 9:18 PM Length of Stay (Days): 6 GMLOS: 2.6 [facility] [id number] Note* Care Coordination - Tiffany Bansal RN - 06/28/2023 3:16 PM EDT Images from the original note were not included. Care Management Progress Note Patient remains on 2E due to diverticulitis. Clinical updates: Patient on IV antibiotics, IV fluids. Sodium today was 134. Patient to have another CT of abdomen. GI consulted. Discharge plan: home when medically stable. Discharge obstacles: none noted. TCC to continue to follow. Discharge Milestones and Delays Expected Date/Time: 06/29/[address] discharge order Complete med reconciliation Case mgmt discharge readiness Clinical Stability Diagnsotic Workup Expected Discharge History Expected Date/Time Set By Reviewed At 06/29/2023 Tiffany Bansal RN 06/28/2023 8:17 AM TCC estimate 06/28/2023 Tiffany Bansal RN 06/27/2023 7:48 AM 06/27/2023 Tiffany Bansal RN 06/26/2023 8:14 AM 06/26/2023 Klever Crawford MD 06/24/2023 3:54 AM 06/26/2023 Thu Hogue MD 06/23/2023 9:18 PM Length of Stay (Days): 5 GMLOS: 2.6 [facility] [id number] Note* Care Coordination - Tiffany Bansal RN - 06/28/2023 3:16 PM EDT Images from the original note were not included. Care Management Progress Note Patient remains on 2E due to diverticulitis. Clinical updates: Patient on IV antibiotics, IV fluids. Sodium today was 134. Patient to have another CT of abdomen. GI consulted. Discharge plan: home when medically stable. Discharge obstacles: none noted. TCC to continue to follow. Discharge Milestones and Delays Expected Date/Time: 06/29/[address] discharge order Complete med reconciliation Case mgmt discharge readiness Clinical Stability Diagnsotic Workup Expected Discharge History Expected Date/Time Set By Reviewed At 06/29/2023 Tiffany Bansal RN 06/28/2023 8:17 AM TCC estimate 06/28/2023 Tiffany Bnasal RN 06/27/2023 7:48 AM 06/27/2023 Tiffany Bansal RN 06/26/2023 8:14 AM 06/26/2023 Klever Crawford MD 06/24/2023 3:54 AM 06/26/2023 Thu Hogue MD 06/23/2023 9:18 PM Length of Stay (Days): 5 GMLOS: 2.6 [facility] [id number] Note* Care Coordination - Tiffany Bansal RN - 06/27/2023 7:48 AM EDT Images from the original note were not included. Care Management Progress Note Patient remains on 2E due to diverticulitis. Clinical updates: Patient on IV antibiotics, IV fluids. Sodium today was 132, WBC elevated at 13.5. GI consulted. Discharge plan: home when medically stable. Discharge obstacles: none noted. TCC to continue to follow. Discharge Milestones and Delays Expected Date/Time: 06/28/[address] discharge order Complete med reconciliation Case mgmt discharge readiness Clinical Stability Diagnsotic Workup Expected Discharge History Expected Date/Time Set By Reviewed At 06/28/2023 Tiffany Bansal RN 06/27/2023 7:48 AM TCC estimate 06/27/2023 Tiffany Bansal RN 06/26/2023 8:14 AM 06/26/2023 Klever Crawford MD 06/24/2023 3:54 AM 06/26/2023 Thu Hogue MD 06/23/2023 9:18 PM Length of Stay (Days): 4 GMLOS: 2.6 [facility] [id number] Note* Care Coordination - Tiffany Bansal RN - 06/27/2023 7:48 AM EDT Images from the original note were not included. Care Management Progress Note Patient remains on 2E due to diverticulitis. Clinical updates: Patient on IV antibiotics, IV fluids. Sodium today was 132, WBC elevated at 13.5. GI consulted. Discharge plan: home when medically stable. Discharge obstacles: none noted. TCC to continue to follow. Discharge Milestones and Delays Expected Date/Time: 06/28/[address] discharge order Complete med reconciliation Case mgmt discharge readiness Clinical Stability Diagnsotic Workup Expected Discharge History Expected Date/Time Set By Reviewed At 06/28/2023 Tiffany Bansal RN 06/27/2023 7:48 AM TCC estimate 06/27/2023 Tiffany Bansal RN 06/26/2023 8:14 AM 06/26/2023 Klever Crawford MD 06/24/2023 3:54 AM 06/26/2023 Thu Hogue MD 06/23/2023 9:18 PM Length of Stay (Days): 4 GMLOS: 2.6 [facility] [id number] Plan of care note* Care Plan - Vanda Dumas RN - 06/27/2023 3:12 AM EDT The patient is Moderately Stable - Low risk of patient condition declining or worsening The patient's goals for the shift include sleep The clinical goals for the shift include no pain Over the shift, the patient did not make progress toward the following goals. Barriers to progression include Pain management. Recommendations to address these barriers include low stimuli environment and prn pain meds. [facility] [id number] Consult note* Espinoza Shay MD - 06/26/2023 3:02 PM EDTAssociated Order(s): Inpatient consult to Gastroenterology Images from the original note were not included. GI CONSULTATION Patient: Priscila Cha : 1955 Primary Care Physician: LEONID DEE MD Inpatient consult to Gastroenterology Consult performed by: Espinoza Shay MD Consult ordered by: Blair Wing MD CHIEF COMPLAINT: diverticulitis HISTORY OF PRESENT ILLNESS: 67 yo female with PMH as below whom GI is consulted for diverticulitis.Admitted Monday for acute uncomplicated diverticulitis. This is her first episode of diverticulitis. Started on Zosyn with normalization of WBC. Overnight, had 3 looser BM's with acute worsening of abdominal pain. Has been tolerating liquid diet thus far. Did have a colonoscopy 5 years ago and has an appointment scheduled with [facility] at the end of the month for an office visit. PAST MEDICAL HISTORY: Past Medical History: Diagnosis Date Arthritis COPD exacerbation (HCC) 06/20/2022 Pneumonia 03/04/2019 Primary hypertension 06/24/2023 PAST SURGICAL HISTORY: Past Surgical History: Procedure Laterality Date BACK SURGERY N/A 2017 lower back in middle MANDIBLE SURGERY Bilateral 1983 wires on both jaws now TONSILLECTOMY (HISTORICAL) FAMILY HISTORY: Family History Problem Relation Name Age of Onset No Known Problems Other No Known Problems Brother No Known Problems Maternal Grandfather No Known Problems Paternal Grandfather No Known Problems Sister No Known Problems Maternal Grandmother No Known Problems Paternal Grandmother SOCIAL HISTORY: TOBACCO: reports that she has been smoking cigarettes. She has been smoking an average of .5 packs per day. She uses smokeless tobacco. ETOH: reports that she does not currently use alcohol. DRUGS: reports no history of drug use. Medications: Prior to Admission medications Medication Sig Start Date End Date Taking? Authorizing Provider amLODIPine (Norvasc) 5 MG tablet Take 1 tablet by mouth daily. 06/23/22 Yes Historical Provider, Liysawmjqri-Mnjichtsr-Gueljn (Trelegy Ellipta) 100-62.5-25 MCG/ACT aerosol powder Inhale 1 puff daily. 01/06/23 Yes Historical Provider, albuterol 108 (90 Base) MCG/ACT inhaler Inhale 2 puffs every 4 hours as needed for shortness of breath or wheezing. 11/24/22 Historical Provider, doxycycline (Vibramycin) 100 MG capsule TAKE ONE CAPSULE BY MOUTH EVERY MORNING AND ONE CAPSULE EVERY EVENING FOR 5 DAYS 06/22/22 06/22/23 Doni Guzman MD gabapentin (Neurontin) 300 MG capsule Take 300 mg by mouth 2 times daily as needed. Historical Provider, ibuprofen 600 MG tablet Take 600 mg by mouth. Historical Provider, predniSONE (Deltasone) 10 MG tablet TAKE 4 TABLETS BY MOUTH DAILY FOR 3 DAYS, THEN 3 TABLETS DAILY FOR 3 DAYS, THEN 2 TABLETS DAILY FOR 3 DAYS, THEN 1 TABLET DAILY FOR 3 DAYS. 06/22/22 06/22/23 Doni Guzman MD traZODone (Desyrel) 50 MG tablet Take 50 mg by mouth every evening. 01/27/23 Historical Provider, amLODIPine (Norvasc) 5 MG tablet TAKE 1 TABLET BY MOUTH DAILY 06/22/22 06/23/23 Doni Guzman MD @MEDCMED@ ALLERGIES: Allergies Allergen Reactions Codeine Levofloxacin Other reaction(s): GI Upset, U Sulfa Antibiotics Other reaction(s): Vomiting REVIEW OF SYSTEMS: No fever, chills, or sweats. Normal appetite and weight. No APODACA, visual disturbance, eye pain, jaundice, sore throat or mouth ulcers. No skin rash or itching. No CP, SOB, BAKER, cough or wheeze. No urinary frequency, urgency, hematuria, or dysuria. No myalgia, arthralgia, or joint swelling. No weakness, numbness, or confusion. GI per HPI. No polyuria, polydipsia, heat or cold intolerance. PHYSICAL EXAM: VS: BP (!) 141/98 (BP Location: Left arm, Patient Position: Lying) Pulse 96 Temp 36.4 C (97.6 F) (Temporal) Resp 18 Ht 5' 3 (1.6 m) Wt 140 lb 14 oz (63.9 kg) LMP (LMP Unknown) SpO2 92% BMI 24.95 kg/m Body mass index is 24.95 kg/m . GENERAL: Pleasant and NAD. HEENT: NCAT, PERRLA, EOMI, Scleral anicteric. CV: RRR, NL S1/S2, no murmurs. LUNGS: CTA b/l. No W/R/R. Abdomen: + BS, soft, non-tender and non-distended. No rebound or guarding. No hernia. Neurologic: A&O x 3, No asterixis. Non-focal. Psych: Normal affect and speech. LABS AND IMAGING: Recent blood work and relevant radiologic and endoscopic studies were reviewed and discussed with the patient. Old records have not been requested. CBC: Recent Labs 06/24/2352406/25/2342106/26/23421 WBC 9.4 7.1 8.7 HGB 12.1 11.1* 11.3* HCT 35.7 32.8* 34.1* PLT 428 392 424 HEPATIC: Recent Labs 06/25/2342106/26/23421 AST 18 21 ALT 13 14 BILITOT 0.2 0.4 ALKPHOS 55 53 LIPASE/AMYLASE: Recent Labs 06/23/23 1551 LIPASE 26 LACTATE: No lab exists for component: LACTA BNP: No results for input(s): BNP in the last 72 hours. INR: No results for input(s): INR in the last [address] abdomen pelvis w contrast Result Date: 06/23/2023 Patient Name: PRISCILA CHA : 1955 Exam Date/Time: 06/23/2023 18:04 Procedure: CT ABDOMEN PELVIS W CONTRAST Ordering Provider: CAREY JAKLYN Reason For Exam: LLQ, recent hx of diverticulitis CT ABDOMEN AND PELVIS WITH CONTRAST CLINICAL INDICATION: Left-sided abdominal pain. Recent history of acute diverticulitis TECHNIQUE: AxialCT images through the abdomen and pelvis with 3 mm reconstruction following dynamic intravenous infusion of 75 mL of Isovue-370 intravenous contrast media. Enteric contrast was not administered. Coronal and sagittal reconstructions included. Dose reduction was employed with automated exposure control. COMPARISON: 10/15/2021 FINDINGS: Limitations: Examination is limited for evaluation of the gastrointestinal tract due to lack of oral contrast. Mild patient motion artifact Lung base: Streaky bibasilar opacities reflect atelectasis/scarring. Liver: Appears fairly homogeneous without discrete lesion identified. Gallbladder/Biliary tree: Gallbladder appears within normal limits. Common bile duct is mildly dilated measuring up to 9 mm with some degree of distal tapering Spleen: No significant abnormality detected. Pancreas: Homogeneous without adjacent stranding or other significant abnormality. Adrenals: No discrete mass or nodule detected. Kidneys/pelvic organs: Symmetric contrast enhancement without obstructive uropathy. No nephrolithiasis. Tiny joe of intraluminal air within the urinary bladder. Uterus demonstrates a normal CT appearance for patient's age. GI tract: Tiny sliding-type hiatal hernia. No dilated loops of small bowel. Normal appendix. Mild amount retained colonic stool. Colonic diverticula most pronounced in the sigmoid colon and distal descending colon. These segments demonstrate some wall thickening with pericolonic stranding/fluid most pronounced at the distaldescending colon Where there is localized stranding/fluid. Peritoneal cavity/retroperitoneum: No pne umatosis or pneumoperitoneum. Trace pelvic ascites. No focal fluid collection. No suspicious bulky adenopathy. Vasculature: Moderate to severe mixed atherosclerotic plaque with infrarenal abdominal aortic aneurysm measuring 3.3 x 3.0 cm, remeasured on prior study at 2.9 x 2.7 cm. Major venous structures enhance normally. Osseous structures/soft tissues: Degenerative spondylosis in the visualized spine with postsurgical changes at L4-L5. There is mild scoliotic curvature. Osteoarthritis right greater than left hip. No significant soft tissue abnormality detected 1. Acute diverticulitis involving the the distal descending colon extending into the sigmoid colon.No focal fluid collection or evidence of perforation. 2. Moderate to severe mixed atherosclerotic plaque with infrarenal abdominal aortic aneurysm measuring 3.3 x 3.0 cm, previously 2.9 x 2.7 cm. Please see below recommendations. 3. Mild biliary ductal dilatation also seen on prior study and likelypostsurgical. 4. Tiny joe of intraluminal air within the urinary bladder. This is nonspecific andcould reflect recent instrumentation or infection. Given proximity to sigmoid colon fistula could be considered though this is felt to be less likely. Reference: Recommended interval for initial follow-up imaging of ectatic aortas and aneurysms: Og et al. JACR. 2013 Diameter Imaging interval 2.5-2.9 cm 5 y 3.0-3.4 cm 3 y 3.5-3.9 cm 2 y 4.0-4.4 cm 1 y 4.5-4.9 cm 6 mo 5.0-5.5 cm 3-6 mo Report Dictated on Electronically Signed By: Moises Little MD Electronically S igned Date/Time: 06/23/2023 6:13 PM EDT IMPRESSION: Acute uncomplicated diverticulitis - CT scan on Monday showed descending/sigmoid involvement, initial leukocytosis now improved on zosyn, worsening abdominal pain overnight after several loose BM's RECOMMENDATIONS: Advance diet If pain worsens significantly, would repeat CT abdomen to assess for any changes Continue antibiotics for now [facility] [id number] Note* Care Coordination - Tiffany Bansal RN - 06/26/2023 1:52 PM EDT Images from the original note were not included. Care Management Progress Note TRANSITIONAL CARE DAILY NOTE/UPDATES: Patient remains on 2E due to diverticulitis. Clinical updates: Patient on IV fluids, IV antibiotics. Sodium today was 133. Discharge plan: home when medically stable. Discharge obstacles: none noted. TCC to continue to follow. Discharge Milestones and Delays Expected Date/Time: 06/27/[address] discharge order Complete med reconciliation Case mgmt discharge readiness Clinical Stability Diagnsotic Workup Expected Discharge History Expected Date/Time Set By Reviewed At 06/27/2023 Tiffany Bansal RN 06/26/2023 8:14 AM TCC estimate 06/26/2023 Klever Crawford MD 06/24/2023 3:54 AM 06/26/2023 Thu Hogue MD 06/23/2023 9:18 PM Length of Stay (Days): 3 GMLOS: No GMLOS Documented [facility] [id number] Note* Care Coordination - Tiffany Bansal RN - 06/26/2023 1:52 PM EDT Images from the original note were not included. Care Management Progress Note TRANSITIONAL CARE DAILY NOTE/UPDATES: Patient remains on 2E due to diverticulitis. Clinical updates: Patient on IV fluids, IV antibiotics. Sodium today was 133. Discharge plan: home when medically stable. Discharge obstacles: none noted. TCC to continue to follow. Discharge Milestones and Delays Expected Date/Time: 06/27/[address] discharge order Complete med reconciliation Case mgmt discharge readiness Clinical Stability Diagnsotic Workup Expected Discharge History Expected Date/Time Set By Reviewed At 06/27/2023 Tiffany Bansal RN 06/26/2023 8:14 AM TCC estimate 06/26/2023 Klever Crawford MD 06/24/2023 3:54 AM 06/26/2023 Thu Hogue MD 06/23/2023 9:18 PM Length of Stay (Days): 3 GMLOS: No GMLOS Documented [facility] [id number] Note* Care Coordination - Roz Hays RN - 06/25/2023 2:47 PM EDT Care Managment Initial Assessment Date: 06/25/2023 Patient Name: Priscila Cha : 1955 Patient Information Source of Information: Patient, Patient Base Draw Operator Name/Contact Information: DEJA CHA SPOUSE [phone] Cognition/Language: WFL - Within Functional Limits Permission given to speak with patient surgical device sales representative/caregiver as indicated: Yes Confirmation of Payer with patient/family: Yes Payer Name: MEDICARE AND AARP [place]: No Confirmation of Primary Care Physician: Confirmed PCP Name: DR. DEE Seen in last 2 years?: Yes Primary Caregiver: Self If assistance needed, confirmed caregiver ready, willing and able to care for patient at discharge:Yes Confirmed with: PER PATIENT HER SPOUSE Living Arrangements Current Residence: House Number of Floors 2 Number of Entry Steps: 2 Bed/Bath Levels: Both second floor Facility: Facility Name: [facility] Plan to Return: Yes Lives with: Spouse/significant other Support Systems: Spouse/significant other Activities of Daily Living Ambulation: Independent Bathing/Dressing: Independent Elimination/Continence/Toileting: Independent Feeding: Independent Who Assists with Activities of Daily Living: Instrumental Activities of Daily Living Prescription Coverage: Yes Pharmacy Used: [facility] [place] Medication Management: Independent Transportation/Shopping: Independent Transportation Mode: Car Needs Assistance with Transportation at Discharge: No (SPOUSE) Meal Preparation: Independent Laundry/Cleaning: Independent Finances/Bill Paying: Independent Communication: Independent Types of Care Services/Equipment Utilized Care Services: Dialysis Type: Durable Medical Equipment: Nebulizer DME Provider: [facility] Patient's Goal/Discharge Plan Patient expects to be discharged to: HOME Discharge Planning Actions: Continue to follow Patient's Choice Rights and [employer] and Collaborative Relationships Disclosed as Indicated for Post-Acute Care: NA Interdisciplinary Team Engagement: Social Work Referral for: Additional Information: Inpatient status from home with diverticulitis. Ivf, iv antibiotics, and daily labs. Discharge preparation checklist reviewed with patient. Has prescription coverage and able to afford medications. Lives at home with spouse and independent in her adls and household tasks. Still drives and states husbands able to assist at home if needed. Tentative discharge plan is home with spouse when medicallystable. . Roz Hays RN [id number] Note* Care Coordination - Roz Hays RN - 06/25/2023 2:47 PM EDT Care Managment Initial Assessment Date: 06/25/2023 Patient Name: Priscila Cha : 1955 Patient Information Source of Information: Patient, Patient Base Draw Operator Name/Contact Information: DEJA CHA SPOUSE [phone] Cognition/Language: WFL - Within Functional Limits Permission given to speak with patient surgical device sales representative/caregiver as indicated: Yes Confirmation of Payer with patient/family: Yes Payer Name: MEDICARE AND AARP [place]: No Confirmation of Primary Care Physician: Confirmed PCP Name: DR. DEE Seen in last 2 years?: Yes Primary Caregiver: Self If assistance needed, confirmed caregiver ready, willing and able to care for patient at discharge:Yes Confirmed with: PER PATIENT HER SPOUSE Living Arrangements Current Residence: House Number of Floors 2 Number of Entry Steps: 2 Bed/Bath Levels: Both second floor Facility: Facility Name: [facility] Plan to Return: Yes Lives with: Spouse/significant other Support Systems: Spouse/significant other Activities of Daily Living Ambulation: Independent Bathing/Dressing: Independent Elimination/Continence/Toileting: Independent Feeding: Independent Who Assists with Activities of Daily Living: Instrumental Activities of Daily Living Prescription Coverage: Yes Pharmacy Used: [facility] [place] Medication Management: Independent Transportation/Shopping: Independent Transportation Mode: Car Needs Assistance with Transportation at Discharge: No (SPOUSE) Meal Preparation: Independent Laundry/Cleaning: Independent Finances/Bill Paying: Independent Communication: Independent Types of Care Services/Equipment Utilized Care Services: Dialysis Type: Durable Medical Equipment: Nebulizer DME Provider: [facility] Patient's Goal/Discharge Plan Patient expects to be discharged to: HOME Discharge Planning Actions: Continue to follow Patient's Choice Rights and [employer] and Collaborative Relationships Disclosed as Indicated for Post-Acute Care: NA Interdisciplinary Team Engagement: Social Work Referral for: Additional Information: Inpatient status from home with diverticulitis. Ivf, iv antibiotics, and daily labs. Discharge preparation checklist reviewed with patient. Has prescription coverage and able to afford medications. Lives at home with spouse and independent in her adls and household tasks. Still drives and states husbands able to assist at home if needed. Tentative discharge plan is home with spouse when medicallystable. . Roz Hays RN [facility] [id number] Plan of care note* Care Plan - Reji Graham RN - 06/24/2023 5:28 AM EDT Problem: Pain - Adult Goal: Verbalizes/displays adequate comfort level or baseline comfort level Outcome: Progressing Problem: Safety - Adult Goal: Free from fall injury Outcome: Progressing Problem: Discharge Planning Goal: Discharge to home or other facility with appropriate resources Outcome: Progressing [id number] History and physical note* Thu Hogue MD - 06/23/2023 11:09 PM EDT Attending History and Physical Admit Date: 06/23/2023 PCP: LEONID DEE MD CHIEF COMPLAINT: LLQ abdominal pain Reason for Admission: Diverticulitis w/ failed outpatient treatment History Obtained From: patient, er staff, chart HISTORY OF PRESENT ILLNESS: Priscila is a 67 y.o. female with past medical history below who presents with chief complaint listed above. Worsening LLQ pain despite augmentin therapy outpatient Nausea/vomiting, abdominal pain. Stoic demeanour pleasant cooperative Tachycardia in ED, initiated on zosyn therapy . Will admit for further evaluation and management. Past Medical History: Past Medical History: Diagnosis Date Arthritis COPD exacerbation (CMS/HCC) (HCC) 06/20/2022 Pneumonia 03/04/2019 Past Surgical History: Past Surgical History: Procedure Laterality Date BACK SURGERY N/A 2017 lower back in middle MANDIBLE SURGERY Bilateral 1983 wires on both jaws now TONSILLECTOMY (HISTORICAL) Social History: Social History Socioeconomic History Marital status: Spouse name: Not on file Number of children: Not on file Years of education: Not on file Highest education level: Not on file Occupational History Not on file Tobacco Use Smoking status: Every Day Packs/day: .5 Types: Cigarettes Smokeless tobacco: Current Tobacco comments: Quit smoking: trying to quit Substance and Sexual Activity Alcohol use: Not Currently Drug use: Never Sexual activity: Not on file Other Topics Concern Not on file Social History Narrative Not on file Social Determinants of Health Financial Resource Strain: Not on file Food Insecurity: Not on file Transportation Needs: Not on file Physical Activity: Not on file Stress: Not on file Social Connections: Not on file Intimate Partner Violence: Not on file Housing Stability: Not on file Family History: Family History Problem Relation Name Age of Onset No Known Problems Other No Known Problems Brother No Known Problems Maternal Grandfather No Known Problems Paternal Grandfather No Known Problems Sister No Known Problems Maternal Grandmother No Known Problems Paternal Grandmother Medications Prior to Admission: No current facility-administered medications on file prior to encounter. Current Outpatient Medications on File Prior to Encounter Medication Sig Dispense Refill amLODIPine (Norvasc) 5 MG tablet TAKE 1 TABLET BY MOUTH DAILY 30 tablet 3 [] doxycycline (Vibramycin) 100 MG capsule TAKE ONE CAPSULE BY MOUTH EVERY MORNING AND ONE CAPSULE EVERY EVENING FOR 5 DAYS 10 capsule 0 [] predniSONE (Deltasone) 10 MG tablet TAKE 4 TABLETS BY MOUTH DAILY FOR 3 DAYS, THEN 3 TABLETS DAILY FOR 3 DAYS, THEN 2 TABLETS DAILY FOR 3 DAYS, THEN 1 TABLET DAILY FOR 3 DAYS. 30 tablet 0 Allergies: Allergies Allergen Reactions Codeine Levofloxacin Other reaction(s): GI Upset, U Sulfa Antibiotics Other reaction(s): Vomiting REVIEW OF SYSTEMS: Review of Systems Constitutional: Positive for activity change. HENT: Negative. Respiratory: Negative. Gastrointestinal: Positive for abdominal pain, constipation, nausea and vomiting. Musculoskeletal: Negative. Neurological: Negative. Psychiatric/Behavioral: Positive for decreased concentration and sleep disturbance (2/2 pain). Vitals: BP (!) 140/84 Pulse 107 Temp 36.7 C (98.1 F) (Oral) Resp 16 LMP (LMP Unknown) SpO2 94% BMI Classification: Normal Weight (BMI 18.5-24.9) Pulse Ox: SpO2 Av % Min: 94 % Max: 94 % Supplemental O2: PHYSICAL EXAM: Physical Exam Constitutional: General: Distressed: Moderate distress, stoic. Appearance: Normal appearance. She is normal weight. Comments: Pleasant, cooperative, understates pain HENT: Head: Atraumatic. Eyes: Extraocular Movements: Extraocular movements intact. Cardiovascular: Rate and Rhythm: Tachycardia present. Pulmonary: Effort: Pulmonary effort is normal. Abdominal: Tenderness: There is abdominal tenderness (Focal to LLQ w/o rebound). Musculoskeletal: General: Normal range of motion. Skin: General: Skin is warm and dry. Capillary Refill: Capillary refill takes less than 2 seconds. Neurological: General: No focal deficit present. Mental Status: She is alert and oriented to person, place, and time. Psychiatric: Mood and Affect: Mood normal. Behavior: Behavior normal. Thought Content: Thought content normal. Judgment: Judgment normal. DATA: CBC: Recent Labs 06/23/23 1551 WBC 11.9* RBC 4.73 HGB 13.8 HCT 40.7 MCV 86.2 RDW 16.0* PLT 457* BMP: Recent Labs 06/23/23 1551 NA 136 K 3.7 CL 102 CO2 27 BUN 10 CREATININE 0.55 GLUCOSE 143* CALCIUM 9.3 ANIONGAP 8 LIVER PROFILE: Recent Labs 06/23/23 1551 AST 26 ALT 17 BILITOT 0.2 ALKPHOS 69 PROT 7.4 PT/INR: No results for input(s): PROTIME , INR in the last 72 hours. CARDIAC ENZYMES: No results for input(s): TROPONINI in the last 72 hours. Procalcitonin: No results found for: PROCAL Urine Culture: No results found for this or any previous visit. COVID-19 PCR: No results for input(s): COVID19 in the last 72 hours. I reviewed: [x] laboratory results [x] radiographic results At the time of today's encounter. Pt was advised of the results. Data: (CAT1) Reviewed 3 or more notes from different specialty or health system (each=1). (CAT1) Reviewed 3 or more labs/studies ordered by another provider not previously counted (each=1, panels count as 1). (CAT3) Discussed with ED provider, Dr. Carey, regarding patient's eval & mgmt thus far, and agree with the plan for hospitalization. (LOW: 2x CAT1 or independent historian MOD: 3x CAT1 or 1x CAT3 EXTENSIVE: 3x CAT1 and 1x CAT3) Assessment Discussed management with the ED provider and agree with hospitalization. Acute, acute on chronic, unstable/uncontrolled chronic problems/diagnoses: Acute LLQ diverticulitis w/o perforation Failed outpatient therapy Stable chronic problems affecting care, new non-acute diagnoses: COPD Plan As a result of the above findings & factors, the following mgmt was pursued: - Admit to F -iv zosyn -home meds as ordered -pain control regimen - am labs, replace lytes prn - PT/OT/CM/SW - delirium precautions: increase activity, schedule melatonin at bedtime, limit nighttime disturbances, and avoid anticholinergic meds, benzos, etc - DVT prophylaxis: enoxaparin and encourage ambulation Complexity: Acute or chronic illness or injury posing a threat to life or body function (HIGH). Multiple stable chronic illnesses (MOD). Risk: Admission to hospital-level care was considered or occurred (HIGH). Prescription drug/IVF/colloid was initiated, discontinued, adjusted; or reviewed with decision to maintain current orders (MOD). Advance Directive: No Order Anticipated Discharge - Date - 2-3 days - Location - tbd - Pending the following - Pain, clinical stabilization Total time spent (which include face to face and non face to face encounters) : 45 minutes. Extended Emergency Contact Information Primary Emergency Contact: Deja Cha Mobile Relation: Spouse Thu Hogue MD Division of Hospitalist Medicine Inpatient Medical Services/[place] [facility] [id number] [facility]10-06-[facility]23 History and physical note* Thu Hogue MD - 06/23/2023 11:09 PM EDT Attending History and Physical Admit Date: 06/23/2023 PCP: LEONID DEE MD CHIEF COMPLAINT: LLQ abdominal pain Reason for Admission: Diverticulitis w/ failed outpatient treatment History Obtained From: patient, er staff, chart HISTORY OF PRESENT ILLNESS: Priscila is a 67 y.o. female with past medical history below who presents with chief complaint listed above. Worsening LLQ pain despite augmentin therapy outpatient Nausea/vomiting, abdominal pain. Stoic demeanour pleasant cooperative Tachycardia in ED, initiated on zosyn therapy . Will admit for further evaluation and management. Past Medical History: Past Medical History: Diagnosis Date Arthritis COPD exacerbation (CMS/HCC) (HCC) 06/20/2022 Pneumonia 03/04/2019 Past Surgical History: Past Surgical History: Procedure Laterality Date BACK SURGERY N/A 2017 lower back in middle MANDIBLE SURGERY Bilateral 1983 wires on both jaws now TONSILLECTOMY (HISTORICAL) Social History: Social History Socioeconomic History Marital status: Spouse name: Not on file Number of children: Not on file Years of education: Not on file Highest education level: Not on file Occupational History Not on file Tobacco Use Smoking status: Every Day Packs/day: .5 Types: Cigarettes Smokeless tobacco: Current Tobacco comments: Quit smoking: trying to quit Substance and Sexual Activity Alcohol use: Not Currently Drug use: Never Sexual activity: Not on file Other Topics Concern Not on file Social History Narrative Not on file Social Determinants of Health Financial Resource Strain: Not on file Food Insecurity: Not on file Transportation Needs: Not on file Physical Activity: Not on file Stress: Not on file Social Connections: Not on file Intimate Partner Violence: Not on file Housing Stability: Not on file Family History: Family History Problem Relation Name Age of Onset No Known Problems Other No Known Problems Brother No Known Problems Maternal Grandfather No Known Problems Paternal Grandfather No Known Problems Sister No Known Problems Maternal Grandmother No Known Problems Paternal Grandmother Medications Prior to Admission: No current facility-administered medications on file prior to encounter. Current Outpatient Medications on File Prior to Encounter Medication Sig Dispense Refill amLODIPine (Norvasc) 5 MG tablet TAKE 1 TABLET BY MOUTH DAILY 30 tablet 3 [] doxycycline (Vibramycin) 100 MG capsule TAKE ONE CAPSULE BY MOUTH EVERY MORNING AND ONE CAPSULE EVERY EVENING FOR 5 DAYS 10 capsule 0 [] predniSONE (Deltasone) 10 MG tablet TAKE 4 TABLETS BY MOUTH DAILY FOR 3 DAYS, THEN 3 TABLETS DAILY FOR 3 DAYS, THEN 2 TABLETS DAILY FOR 3 DAYS, THEN 1 TABLET DAILY FOR 3 DAYS. 30 tablet 0 Allergies: Allergies Allergen Reactions Codeine Levofloxacin Other reaction(s): GI Upset, U Sulfa Antibiotics Other reaction(s): Vomiting REVIEW OF SYSTEMS: Review of Systems Constitutional: Positive for activity change. HENT: Negative. Respiratory: Negative. Gastrointestinal: Positive for abdominal pain, constipation, nausea and vomiting. Musculoskeletal: Negative. Neurological: Negative. Psychiatric/Behavioral: Positive for decreased concentration and sleep disturbance (2/2 pain). Vitals: BP (!) 140/84 Pulse 107 Temp 36.7 C (98.1 F) (Oral) Resp 16 LMP (LMP Unknown) SpO2 94% BMI Classification: Normal Weight (BMI 18.5-24.9) Pulse Ox: SpO2 Av % Min: 94 % Max: 94 % Supplemental O2: PHYSICAL EXAM: Physical Exam Constitutional: General: Distressed: Moderate distress, stoic. Appearance: Normal appearance. She is normal weight. Comments: Pleasant, cooperative, understates pain HENT: Head: Atraumatic. Eyes: Extraocular Movements: Extraocular movements intact. Cardiovascular: Rate and Rhythm: Tachycardia present. Pulmonary: Effort: Pulmonary effort is normal. Abdominal: Tenderness: There is abdominal tenderness (Focal to LLQ w/o rebound). Musculoskeletal: General: Normal range of motion. Skin: General: Skin is warm and dry. Capillary Refill: Capillary refill takes less than 2 seconds. Neurological: General: No focal deficit present. Mental Status: She is alert and oriented to person, place, and time. Psychiatric: Mood and Affect: Mood normal. Behavior: Behavior normal. Thought Content: Thought content normal. Judgment: Judgment normal. DATA: CBC: Recent Labs 06/23/23 1551 WBC 11.9* RBC 4.73 HGB 13.8 HCT 40.7 MCV 86.2 RDW 16.0* PLT 457* BMP: Recent Labs 06/23/23 1551 NA 136 K 3.7 CL 102 CO2 27 BUN 10 CREATININE 0.55 GLUCOSE 143* CALCIUM 9.3 ANIONGAP 8 LIVER PROFILE: Recent Labs 06/23/23 1551 AST 26 ALT 17 BILITOT 0.2 ALKPHOS 69 PROT 7.4 PT/INR: No results for input(s): PROTIME , INR in the last 72 hours. CARDIAC ENZYMES: No results for input(s): TROPONINI in the last 72 hours. Procalcitonin: No results found for: PROCAL Urine Culture: No results found for this or any previous visit. COVID-19 PCR: No results for input(s): COVID19 in the last 72 hours. I reviewed: [x] laboratory results [x] radiographic results At the time of today's encounter. Pt was advised of the results. Data: (CAT1) Reviewed 3 or more notes from different specialty or health system (each=1). (CAT1) Reviewed 3 or more labs/studies ordered by another provider not previously counted (each=1, panels count as 1). (CAT3) Discussed with ED provider, Dr. Carey, regarding patient's eval & mgmt thus far, and agree with the plan for hospitalization. (LOW: 2x CAT1 or independent historian MOD: 3x CAT1 or 1x CAT3 EXTENSIVE: 3x CAT1 and 1x CAT3) Assessment Discussed management with the ED provider and agree with hospitalization. Acute, acute on chronic, unstable/uncontrolled chronic problems/diagnoses: Acute LLQ diverticulitis w/o perforation Failed outpatient therapy Stable chronic problems affecting care, new non-acute diagnoses: COPD Plan As a result of the above findings & factors, the following mgmt was pursued: - Admit to [facility] -iv zosyn -home meds as ordered -pain control regimen - am labs, replace lytes prn - PT/OT/CM/SW - delirium precautions: increase activity, schedule melatonin at bedtime, limit nighttime disturbances, and avoid anticholinergic meds, benzos, etc - DVT prophylaxis: enoxaparin and encourage ambulation Complexity: Acute or chronic illness or injury posing a threat to life or body function (HIGH). Multiple stable chronic illnesses (MOD). Risk: Admission to hospital-level care was considered or occurred (HIGH). Prescription drug/IVF/colloid was initiated, discontinued, adjusted; or reviewed with decision to maintain current orders (MOD). Advance Directive: No Order Anticipated Discharge - Date - 2-3 days - Location - tbd - Pending the following - Pain, clinical stabilization Total time spent (which include face to face and non face to face encounters) : 45 minutes. Extended Emergency Contact Information Primary Emergency Contact: Deja Cha Mobile Relation: Spouse Thu Hogue MD Division of Hospitalist Medicine [place]patient Medical Services[place] [place] [facility]10-06-[facility] Emergency department Note* Vita Carey DO - 06/23/2023 3:08 PM EDT Emergency Department Encounter [facility] ED Patient: Priscila Cha : 1955 Date of Evaluation: 06/23/2023 ED Supervising Physician: Vita Carey DO I independently examined and evaluated Priscila Cha. This will serve as my Supervisory note and shared attestation. I did perform a substantive portion of the visit including all aspects of the Medical Decision Making. I wore appropriate PPE for the entirety of this encounter. In brief, Priscila Cha is a 67 y.o. female past medical history of COPD that presents to the emergency department abdominal pain. Patient reports recently had diverticuliti was diagnosed with diverticulitis flareup, however pain is worsening despite compliance with augmentin. Associated n/v. Focused exam: Gen: NAD Heart: RRR, no murmur Lungs: CTA Abd: LLQ TTP with no rebound, guarding, rigidity Brief ED course/MDM: Upon arrival to the ED, patient afebrile,, mildly tachycardic to low 100s, but otherwise hemodynamically stable and saturating well on room air. Left lower quadrant tenderness palpation with no peritoneal signs. CBC with leukocytosis of 1.9, however lactate negative, no evidence to suggest septic shock. CT revealed Acute diverticulitis involving the the distal descending colon extending into the sigmoid colon. No focal fluid collection or evidence of perforation. Incidental finding of infrarenal aortic aneurysm discussed with patient. Patient given Zosyn, given failed outpatient therapy, admit to medicine further management. Total critical care time today provided was at least 35 minutes. This excludes seperately billable procedure. Critical care time provided that required close evaluation and/or intervention with concern for patient decompensation. All diagnostic, treatment, and disposition decisions were made by myself in conjunction with the Resident. I also supervised shahid portions of any procedures performed by the Resident. For all further details of the patient's emergency department visit, please see their documentation. (Comment: Please note this report has been produced using speech recognition software and may contain errors related to that system including errors in grammar, punctuation, and spelling, as well as words and phrases that may be inappropriate. If there are any questions or concerns please feel freeto contact the dictating provider for clarification.) Vita Carey DO [employer] Vita Carey DO 06/23/232027 * Klever Crawford MD - 06/23/2023 3:08 PM EDT EMERGENCY DEPARTMENT ENCOUNTER Pt Name: Priscila Cha Birthdate 1955 Date of evaluation: 06/23/2023 ED Provider: KLEVER CRAWFORD MD CHIEF COMPLAINT Chief Complaint Patient presents with Abdominal Pain Pt. States that she was recently diagnosed with diverticulitis and is having a flare up but the abxshe was prescribed are not helping. N/V/D and severe generalized abd. pn since Monday. HISTORY OF PRESENT ILLNESS (Location/Symptom, Timing/Onset, Context/Setting, Quality, Duration, Modifying Factors, Severity) Note limiting factors. I wore appropriate PPE for the entirety of this encounter. HPI Priscila Cha is a 67 y.o. female who presents to the emergency department for evaluation of left lower quadrant abdominal pain. States a week ago she was diagnosed with diverticulitis and discharged with outpatient therapy of Augmentin, states she has taken about 5 days worth of the Augmentin andsymptoms of seemed to gotten worse and not better. Patient states that she is having significant left lower quadrant abdominal pain with nausea and vomiting, also reports that she was constipated until today when she had significant BM, soft and dark unsure if melena. Patient denies fever/chills, chest pain, shortness of breath. Endorses decreased urinary output, states she feels like she needs to urinate but cannot. Nursing Notes were reviewed. Limitations to history: None Outside historians: None REVIEW OF SYSTEMS Review of Systems as documented in HPI above. PAST MEDICAL HISTORY Past Medical History: Diagnosis Date Arthritis COPD exacerbation (HCC) 06/20/2022 Pneumonia 03/04/2019 Primary hypertension 06/24/2023 SURGICAL HISTORY Past Surgical History: Procedure Laterality Date BACK SURGERY N/A 2017 lower back in middle MANDIBLE SURGERY Bilateral 1983 wires on both jaws now TONSILLECTOMY (HISTORICAL) CURRENT MEDICATIONS Current Discharge Medication List CONTINUE these medications which have NOT CHANGED Details amLODIPine (Norvasc) 5 MG tablet Take 1 tablet by mouth daily. Xsvrsdihpdc-Jiasevabi-Jzdive (Trelegy Ellipta) 100-62.5-25 MCG/ACT aerosol powder Inhale 1 puff daily. albuterol 108 (90 Base) MCG/ACT inhaler Inhale 2 puffs every 4 hours as needed for shortness of breath or wheezing. gabapentin (Neurontin) 300 MG capsule Take 300 mg by mouth 2 times daily as needed. ibuprofen 600 MG tablet Take 600 mg by mouth. traZODone (Desyrel) 50 MG tablet Take 50 mg by mouth every evening. ALLERGIES Codeine, Levofloxacin, and [facility] FAMILY HISTORY Family History Problem Relation Name Age of Onset No Known Problems Other No Known Problems Brother No Known Problems Maternal Grandfather No Known Problems Paternal Grandfather No Known Problems Sister No Known Problems Maternal Grandmother No Known Problems Paternal Grandmother SOCIAL HISTORY Social History Socioeconomic History Marital status: Tobacco Use Smoking status: Every Day Packs/day: .5 Types: Cigarettes Smokeless tobacco: Current Tobacco comments: Quit smoking: trying to quit Substance and Sexual Activity Alcohol use: Not Currently Drug use: Never SCREENINGS PHYSICAL EXAM ED Triage Vitals Temp Heart Rate Resp BP 06/23/23 1512 06/23/23 1512 06/23/23 1512 06/23/23 1512 36.3 C (97.3 F) 107 16 (!) 137/102 SpO2 Temp Source Heart Rate Source Patient Position 06/23/23 1512 06/23/23 1512 06/23/23 1512 06/24/23 0200 94 % Temporal Monitor Lying BP Location FiO2 (%) 06/24/23 0200 -- Left arm Physical Exam General: Lying in bed, appears uncomfortable but nontoxic. Head: Atraumatic. Normocephalic. Eyes: Sclera anicteric. PERRL, EOMI. ENT: Mucous membranes moist. Heart: Tachycardic rate and regular rhythm. Radial pulses intact and equal bilaterally. Lungs: Clear to auscultation bilaterally. Normal respiratory pattern without conversational dyspneaor respiratory distress. Abdomen: Soft, tender to palpation in the left lower quadrant. Abdomen non- distended, without guarding or peritoneal signs. Neurologic: Awake and alert, normal speech and mental status. Moves all extremities equally well. No focal deficits or lateralizing signs. Psychiatric: Mood and affect appropriate. Skin: Warm and dry, no appreciable rash. Musculoskeletal: Normal bulk and tone without evidence of trauma. No peripheral edema. No signs of DVT. DIAGNOSTIC RESULTS RADIOLOGY (Per Emergency Physician): Interpretation per the Radiologist below, if available at the time of this note: CT abdomen pelvis w contrast Final Result 1. Acute sigmoid diverticulitis. No pneumoperitoneum or fluid collection. Appearance is similar to prior exam from 06/23/2023. 2. Abdominal aortic aneurysm measuring 3 cm. Report Dictated on Electronically Signed By: Soila Martins MD Electronically Signed Date/Time: 06/27/2023 5:[address] abdomen pelvis w contrast Final Result 1. Acute diverticulitis involving the the distal descending colon extending into the sigmoid colon.No focal fluid collection or evidence of perforation. 2. Moderate to severe mixed atherosclerotic plaque with infrarenal abdominal aortic aneurysm measuring 3.3 x 3.0 cm, previously 2.9 x 2.7 cm. Please see below recommendations. 3. Mild biliary ductal dilatation also seen on prior study and likely postsurgical. 4. Tiny joe of intraluminal air within the urinary bladder. This is nonspecific and could reflectrecent instrumentation or infection. Given proximity to sigmoid colon fistula could be considered though this is felt to be less likely. Reference: Recommended interval for initial follow-up imaging of ectatic aortas and aneurysms: Og et al. JACR. 2013 Diameter Imaging interval 2.5-2.9 cm 5 y 3.0-3.4 cm 3 y 3.5-3.9 cm 2 y 4.0-4.4 cm 1 y 4.5-4.9 cm 6 mo 5.0-5.5 cm 3-6 mo Report Dictated on Electronically Signed By: Moises Little MD Electronically Signed Date/Time: 06/23/2023 6:13 PM EDT LABS: Labs Reviewed COMPREHENSIVE METABOLIC PANEL - Abnormal Result Value SODIUM 136 POTASSIUM 3.7 CHLORIDE 102 CARBON DIOXIDE 27 ANION GAP 8 UREA NITROGEN 10 CREATININE 0.55 GLUCOSE 143 (*) CALCIUM 9.3 AST (SGOT) 26 ALT 17 ALKALINE PHOSPHATASE 69 ALBUMIN 3.9 BILIRUBIN, TOTAL 0.2 TOTAL PROTEIN 7.4 eGFR >90.0 CBC WITH AUTO DIFFERENTIAL - Abnormal Auto WBC 11.9 (*) RBC 4.73 Hemoglobin 13.8 Hematocrit 40.7 MCV 86.2 MCH 29.2 MCHC 33.8 RDW 16.0 (*) Platelets 457 (*) MPV 7.5 nRBC 0.0 Neutrophils Relative 78.5 Lymphocytes Relative 11.9 (*) Monocytes Relative 7.9 Eosinophils Relative 0.9 (*) Basophils Relative 0.8 Neutrophils Absolute 9.3 (*) Lymphocytes Absolute 1.4 Monocytes Absolute 0.9 (*) Eosinophils Absolute 0.1 Basophils Absolute 0.1 COMPLETE URINALYSIS - Abnormal Color, Urine Light Yellow Clarity, Urine Clear pH, Urine 6.5 Leukocytes, Urine Negative Nitrite, Urine Negative Protein, Urine 10 (*) Glucose, Urine Normal Bilirubin, Urine Negative Ketones, Urine Negative Urobilinogen, Urine Normal Blood, Urine Negative RBC, Urine 0-2 WBC, Urine 0-2 Squamous Epithelial, Urine 3-5 Bacteria, Urine Few (*) SPECIFIC GRAVITY OF URINE (NUMERIC) >1.030 (*) CBC WITH AUTO DIFFERENTIAL - Abnormal Auto WBC 9.4 RBC 4.12 Hemoglobin 12.1 Hematocrit 35.7 MCV 86.6 MCH 29.3 MCHC 33.8 RDW 16.0 (*) Platelets 428 MPV 7.3 (*) nRBC 0.0 Neutrophils Relative 71.8 Lymphocytes Relative 15.3 (*) Monocytes Relative 10.7 (*) Eosinophils Relative 1.5 Basophils Relative 0.7 Neutrophils Absolute 6.8 Lymphocytes Absolute 1.4 Monocytes Absolute 1.0 (*) Eosinophils Absolute 0.1 Basophils Absolute 0.1 COMPREHENSIVE METABOLIC PANEL - Abnormal SODIUM 132 (*) POTASSIUM 3.7 CHLORIDE 105 CARBON DIOXIDE 25 ANION GAP 2 (*) UREA NITROGEN 10 CREATININE 0.66 GLUCOSE 103 (*) CALCIUM 8.4 AST (SGOT) 19 ALT 14 ALKALINE PHOSPHATASE 56 ALBUMIN 3.3 (*) BILIRUBIN, TOTAL 0.2 TOTAL PROTEIN 6.5 eGFR >90.0 CBC WITH AUTO DIFFERENTIAL - Abnormal Auto WBC 7.1 RBC 3.81 Hemoglobin 11.1 (*) Hematocrit 32.8 (*) MCV 86.2 MCH 29.2 MCHC 33.9 RDW 15.8 (*) Platelets 392 MPV 7.4 nRBC 0.0 Neutrophils Relative 63.9 Lymphocytes Relative 20.3 Monocytes Relative 12.9 (*) Eosinophils Relative 1.8 Basophils Relative 1.1 Neutrophils Absolute 4.5 Lymphocytes Absolute 1.4 Monocytes Absolute 0.9 (*) Eosinophils Absolute 0.1 Basophils Absolute 0.1 COMPREHENSIVE METABOLIC PANEL - Abnormal SODIUM 137 POTASSIUM 3.9 CHLORIDE 106 CARBON DIOXIDE 25 ANION GAP 6 UREA NITROGEN 4 (*) CREATININE 0.64 GLUCOSE 94 CALCIUM 8.7 AST (SGOT) 18 ALT 13 ALKALINE PHOSPHATASE 55 ALBUMIN 3.1 (*) BILIRUBIN, TOTAL 0.2 TOTAL PROTEIN 6.1 (*) eGFR >90.0 CBC WITH AUTO DIFFERENTIAL - Abnormal Auto WBC 8.7 RBC 3.97 Hemoglobin 11.3 (*) Hematocrit 34.1 (*) MCV 85.8 MCH 28.4 MCHC 33.1 RDW 15.7 (*) Platelets 424 MPV 7.3 (*) nRBC 0.1 Neutrophils Relative 76.8 Lymphocytes Relative 11.0 (*) Monocytes Relative 10.6 (*) Eosinophils Relative 1.1 Basophils Relative 0.5 Neutrophils Absolute 6.7 Lymphocytes Absolute 1.0 Monocytes Absolute 0.9 (*) Eosinophils Absolute 0.1 Basophils Absolute 0.0 COMPREHENSIVE METABOLIC PANEL - Abnormal SODIUM 133 (*) POTASSIUM 3.5 CHLORIDE 101 CARBON DIOXIDE 30 ANION GAP 1 (*) UREA NITROGEN 4 (*) CREATININE 0.62 GLUCOSE 86 CALCIUM 8.6 AST (SGOT) 21 ALT 14 ALKALINE PHOSPHATASE 53 ALBUMIN 3.3 (*) BILIRUBIN, TOTAL 0.4 TOTAL PROTEIN 6.5 eGFR >90.0 CBC WITH AUTO DIFFERENTIAL - Abnormal Auto WBC 13.5 (*) RBC 4.41 Hemoglobin 12.4 Hematocrit 38.0 MCV 86.0 MCH 28.0 MCHC 32.5 RDW 16.3 (*) Platelets 435 MPV 7.4 nRBC 0.1 Neutrophils Relative 76.3 Lymphocytes Relative 11.7 (*) Monocytes Relative 10.6 (*) Eosinophils Relative 0.8 (*) Basophils Relative 0.6 Neutrophils Absolute 10.3 (*) Lymphocytes Absolute 1.6 Monocytes Absolute 1.4 (*) Eosinophils Absolute 0.1 Basophils Absolute 0.1 COMPREHENSIVE METABOLIC PANEL - Abnormal SODIUM 132 (*) POTASSIUM 4.0 CHLORIDE 101 CARBON DIOXIDE 26 ANION GAP 5 UREA NITROGEN 5 (*) CREATININE 0.61 GLUCOSE 97 CALCIUM 8.8 AST (SGOT) 21 ALT 15 ALKALINE PHOSPHATASE 66 ALBUMIN 3.7 BILIRUBIN, TOTAL 0.5 TOTAL PROTEIN 7.2 eGFR >90.0 CBC WITH AUTO DIFFERENTIAL - Abnormal Auto WBC 8.5 RBC 3.77 (*) Hemoglobin 10.5 (*) Hematocrit 32.5 (*) MCV 86.3 MCH 27.8 MCHC 32.3 RDW 15.9 (*) Platelets 379 MPV 7.4 nRBC 0.0 Neutrophils Relative 69.3 Lymphocytes Relative 13.9 (*) Monocytes Relative 15.3 (*) Eosinophils Relative 1.1 Basophils Relative 0.4 Neutrophils Absolute 5.9 Lymphocytes Absolute 1.2 Monocytes Absolute 1.3 (*) Eosinophils Absolute 0.1 Basophils Absolute 0.0 COMPREHENSIVE METABOLIC PANEL - Abnormal SODIUM 134 (*) POTASSIUM 3.5 CHLORIDE 103 CARBON DIOXIDE 26 ANION GAP 5 UREA NITROGEN 4 (*) CREATININE 0.57 GLUCOSE 129 (*) CALCIUM 8.3 (*) AST (SGOT) 21 ALT 15 ALKALINE PHOSPHATASE 52 ALBUMIN 3.1 (*) BILIRUBIN, TOTAL 0.4 TOTAL PROTEIN 6.1 (*) eGFR >90.0 C-REACTIVE PROTEIN - Abnormal C REACTIVE PROTEIN 146.9 (*) CBC WITH AUTO DIFFERENTIAL - Abnormal Auto WBC 6.5 RBC 3.25 (*) Hemoglobin 9.2 (*) Hematocrit 27.9 (*) MCV 86.0 MCH 28.3 MCHC 32.9 RDW 15.8 (*) Platelets 330 MPV 7.8 nRBC 0.0 Neutrophils Relative 65.5 Lymphocytes Relative 14.9 (*) Monocytes Relative 16.8 (*) Eosinophils Relative 2.0 Basophils Relative 0.8 Neutrophils Absolute 4.2 Lymphocytes Absolute 1.0 Monocytes Absolute 1.1 (*) Eosinophils Absolute 0.1 Basophils Absolute 0.1 COMPREHENSIVE METABOLIC PANEL - Abnormal SODIUM 135 POTASSIUM 3.4 (*) CHLORIDE 110 (*) CARBON DIOXIDE 25 ANION GAP 1 (*) UREA NITROGEN 3 (*) CREATININE 0.39 (*) GLUCOSE 118 (*) CALCIUM 7.4 (*) AST (SGOT) 24 ALT 12 ALKALINE PHOSPHATASE 31 (*) ALBUMIN 2.6 (*) BILIRUBIN, TOTAL 0.4 TOTAL PROTEIN 5.4 (*) eGFR >90.0 CBC WITH AUTO DIFFERENTIAL - Abnormal Auto WBC 7.9 RBC 3.67 (*) Hemoglobin 10.4 (*) Hematocrit 31.6 (*) MCV 86.2 MCH 28.3 MCHC 32.8 RDW 15.7 (*) Platelets 433 MPV 7.6 nRBC 0.0 Neutrophils Relative 61.0 Lymphocytes Relative 18.7 (*) Monocytes Relative 16.4 (*) Eosinophils Relative 3.1 Basophils Relative 0.8 Neutrophils Absolute 4.8 Lymphocytes Absolute 1.5 Monocytes Absolute 1.3 (*) Eosinophils Absolute 0.2 Basophils Absolute 0.1 COMPREHENSIVE METABOLIC PANEL - Abnormal SODIUM 137 POTASSIUM 3.8 CHLORIDE 107 CARBON DIOXIDE 29 ANION GAP 1 (*) UREA NITROGEN 4 (*) CREATININE 0.52 GLUCOSE 80 CALCIUM 8.8 AST (SGOT) 17 ALT 14 ALKALINE PHOSPHATASE 51 ALBUMIN 3.3 (*) BILIRUBIN, TOTAL 0.2 TOTAL PROTEIN 6.4 eGFR >90.0 GASTROINTESTINAL PCR PANEL - Normal Campylobacter Not Detected Plesiomonas shigelloides Not Detected Salmonella Not Detected Vibrio species Not Detected Vibrio cholerae Not Detected Yersinia enterocolitica Not Detected Enterotoxigenic E coli (ETEC) Not Detected Shiga toxin-producing E coli (STEC) Not Detected Shigella/Enteroinvasive E coli (EIEC) Not Detected Cryptosporidium Not Detected Cyclospora cayetanensis Not Detected Entamoeba histolytica Not Detected Giardia lamblia Not Detected Adenovirus F 40/41 Not Detected Astrovirus Not Detected Norovirus GI/GII Not Detected Rotavirus A Not Detected Sapovirus Not Detected Narrative: Methodology: Multiplex PCR C. DIFFICILE BY PCR WITH REFLEX TO EIA - Normal C. difficile toxin PCR Not Detected Narrative: C. difficile infection is unlikely to be present. Methodology: Real-time PCR LIPASE - Normal LIPASE 26 LACTIC ACID WITH REFLEX - Normal LACTIC ACID 0.7 MAGNESIUM - Normal MAGNESIUM 1.9 MAGNESIUM - Normal MAGNESIUM 1.9 LACTIC ACID WITH REFLEX - Normal LACTIC ACID 0.7 PROCALCITONIN TEST - Normal PROCALCITONIN 0.07 Narrative: PCT <0.50 = Low risk of severe sepsis and/or septic shock. PCT >2.00 = High risk of severe sepsis and/or septic shock. MAGNESIUM - Normal MAGNESIUM 1.8 COMPLETE URINALYSIS WITH REFLEX TO CULTURE Narrative: The following orders were created for panel order Urinalysis complete with reflex to Culture. Procedure Abnormality Status --------- ------ Complete Urinalysis[[id number]] Abnormal Final result Please view results for these tests on the individual orders. COMPREHENSIVE METABOLIC PANEL WITH MG REFLEX Narrative: The following orders were created for panel order Comprehensive Metabolic Panel w/ Mg Reflex. Procedure Abnormality Status --------- ------ Comprehensive metabolic p...[[id number]] Abnormal Final result Please view results for these tests on the individual orders. COMPREHENSIVE METABOLIC PANEL WITH MG REFLEX Narrative: The following orders were created for panel order Comprehensive Metabolic Panel w/ Mg Reflex. Procedure Abnormality Status --------- ------ Comprehensive metabolic p...[[id number]] Abnormal Final result Please view results for these tests on the individual orders. COMPREHENSIVE METABOLIC PANEL WITH MG REFLEX Narrative: The following orders were created for panel order Comprehensive Metabolic Panel w/ Mg Reflex. Procedure Abnormality Status --------- ------ Comprehensive metabolic p...[[id number]] Abnormal Final result Please view results for these tests on the individual orders. COMPREHENSIVE METABOLIC PANEL WITH MG REFLEX Narrative: The following orders were created for panel order Comprehensive Metabolic Panel w/ Mg Reflex. Procedure Abnormality Status --------- ------ Comprehensive metabolic p...[[id number]] Abnormal Final result Please view results for these tests on the individual orders. COMPREHENSIVE METABOLIC PANEL WITH MG REFLEX Narrative: The following orders were created for panel order Comprehensive Metabolic Panel w/ Mg Reflex. Procedure Abnormality Status --------- ------ Comprehensive metabolic p...[[id number]] Abnormal Final result Please view results for these tests on the individual orders. COMPREHENSIVE METABOLIC PANEL WITH MG REFLEX Narrative: The following orders were created for panel order Comprehensive Metabolic Panel w/ Mg Reflex. Procedure Abnormality Status --------- ------ Comprehensive metabolic p...[[id number]] Abnormal Final result Please view results for these tests on the individual orders. COMPREHENSIVE METABOLIC PANEL WITH MG REFLEX Narrative: The following orders were created for panel order Comprehensive Metabolic Panel w/ Mg Reflex. Procedure Abnormality Status --------- ------ Comprehensive metabolic p...[[id number]] Abnormal Final result Please view results for these tests on the individual orders. All other labs were within normal range or not returned as of this dictation. EMERGENCY DEPARTMENT COURSE and DIFFERENTIAL DIAGNOSIS/MDM: Vitals: Vitals: 06/29/23 1237 06/29/23201306/30/23 0738 06/30/23 1154 BP: 121/61 134/67 (!) 142/86 BP Location: Left arm Left arm Patient Position: Sitting Lying Pulse: 76 65 76 Resp: 16 16 Temp: 36.7 C (98.1 F) 36.9 C (98.4 F) TempSrc: Temporal Temporal SpO2: 91% 95% Weight: Height: 1.6 m (5' 3 ) Patient is a 67-year-old female who presented for evaluation of ongoing left lower quadrant abdominal pain after failed outpatient management of diverticulitis. Patient history and exam laboratory and imaging evaluation ordered as well as symptom control with morphine and Zofran. Patient states she has been drinking significant amounts of water and has had difficulty urinating so we will hold offon IV fluids at this time until further evaluation with work- up. Patient prior evaluation was at [facility] and we are unable to see the labs or imaging at that time so we will obtain a CT abdomen/pelvis with contrast. Patient will likely require antibiotics and will be admitted for failure of outpatient management. The differential for this patient includes but is not limited to diverticulitis, abscess, constipation, ileus, UTI. ED testing and evaluation will be obtained to help differentiate these diagnostic possibilities anddetermine the most likely cause. Medications provided in the ED are listed below. Studies independently interpreted by me: Chronic conditions affecting patient care include: ED Course: ED workup notable for Laboratory findings of mild leukocytosis 11.9, mild hyponatremia 132, UA not consistent with UTI. CT results per radiologist report are concerning for acute diverticulitis in the distal descending colon extending into the sigmoid colon with no fluid collection or evidence of perforation as well as atherosclerotic plaque and 3.3 x 3.0 aneurysm in the abdominal aorta. Also noted possible intraluminal air in the urinary bladder which could represent fistula to the colon although felt to be unlikely. Although not technically meeting the conditions for sepsis patient was started on broad- spectrum antibiotic coverage with Zosyn IV due to concern for her diverticulitis which is not responding to outpatient therapy. Patient will be admitted for further treatment. All findings were discussed with patient/family at bedside, all questions were answered and all concerns addressed. Patient/family stated understanding of findings and agreement with plan for admission. Diagnoses as of 06/30/23 1508 Generalized abdominal pain Diverticulitis ED Medications managed: Medications polyethylene glycol (PEG) 3350 (Miralax) packet 17 g (17 g Oral Not Given 06/30/2351) naloxone (Narcan) injection 0.4 mg (has no administration in time range) oxyCODONE (Roxicodone) immediate release tablet 5 mg (5 mg Oral Given 06/30/23853) Or oxyCODONE (Roxicodone) immediate release tablet 10 mg ( Oral See Alternative 06/30/23853) mometasone-formoterol (Dulera 100) 100-5 MCG/ACT inhaler 2 puff (2 puffs Inhalation Not Given 06/30/23848) tiotropium (Spiriva) 18 MCG per inhalation capsule 18 mcg (18 mcg Inhalation Not Given 06/30/2350) gabapentin (Neurontin) capsule 300 mg (has no administration in time range) traZODone (Desyrel) tablet 50 mg (50 mg Oral Given 06/29/232126) amLODIPine (Norvasc) tablet 5 mg (5 mg Oral Given 06/30/23848) albuterol 108 (90 Base) MCG/ACT inhaler 2 puff (has no administration in time range) acetaminophen (Tylenol) tablet 650 mg (has no administration in time range) Or acetaminophen (Tylenol) suppository 650 mg (has no administration in time range) ondansetron ODT (Zofran-ODT) disintegrating tablet 4 mg (4 mg Oral Given 06/27/23934) Or ondansetron (Zofran) injection 4 mg ( IntraVENous See Alternative 06/27/23934) polyethylene glycol (PEG) 3350 (Miralax) packet 17 g (has no administration in time range) Influenza Vac A&B SA Adj quadrivalent (Fluad) vaccine 0.5 mL (0.5 mL IntraMUSCular Not Given 06/27/23 09) enoxaparin (Lovenox) syringe 40 mg (40 mg SubCUTAneous Not Given 06/30/2349) sodium chloride 0.9 % infusion (50 mL/hr IntraVENous New Bag 06/30/23 0508) melatonin tablet 3 mg (has no administration in time range) piperacillin-tazobactam (Zosyn) 3,375 mg in sodium chloride 0.9 % 50 mL IVPB Mini-Bag Plus (0 mg IntraVENous Stopped 06/30/23 1257) HYDROmorphone (Dilaudid) injection 0.5 mg (0.5 mg IntraVENous Given 06/30/23 1206) senna-docusate sodium (Senokot-S) 8.6-50 MG tablet 2 tablet (has no administration in time range) hydrocortisone 2.5 % cream ( Topical Given 06/30/23 0851) hydrALAZINE (Apresoline) injection 10 mg (has no administration in time range) morphine injection 4 mg (4 mg IntraVENous Given 06/23/23 1601) ondansetron (Zofran) injection 4 mg (4 mg IntraVENous Given 06/23/23 1600) iopamidol (Isovue-370) 76 % injection 75 mL (75 mL IntraVENous Given 06/23/23 1804) piperacillin-tazobactam (Zosyn) 4,500 mg in sodium chloride 0.9 % 100 mL IVPB Mini-Bag Plus (0 mg IntraVENous Stopped 06/23/23 1723) morphine injection 6 mg (6 mg IntraVENous Given 06/23/23 2113) fluconazole (Diflucan) tablet 150 mg (150 mg Oral Given 06/28/23 0524) potassium chloride CR (Klor-Con M20) ER tablet 40 mEq (40 mEq Oral Given 06/26/23 1435) iopamidol (Isovue-370) 76 % injection 75 mL (75 mL IntraVENous Given 06/27/23 1619) potassium chloride CR (Klor-Con M20) ER tablet 40 mEq (40 mEq Oral Given 06/29/23 1015) PROCEDURES: Unless otherwise noted below, none. Procedures FINAL IMPRESSION 1. Diverticulitis 2. Generalized abdominal pain DISPOSITION Admit 06/23/2023 09:18:39 PM PATIENT REFERRED TO: No follow-up provider specified. DISCHARGE MEDICATIONS: Current Discharge Medication List (Comment: Please note this report has been produced using speech recognition software and may contain errors related to that system including errors in grammar, punctuation, and spelling, as well as words and phrases that may be inappropriate. If there are any questions or concerns please feel freeto contact the dictating provider for clarification.) KLEVER CRAWFORD MD (electronically signed) Emergency Medicine Provider Klever Crawford MD Resident 06/30/23 9103 documented in this [facility]10-06-2023 Physician Emergency department Note* Vita Carey DO - 06/23/2023 3:08 PM EDT Emergency Department Encounter [facility] ED Patient: Priscila Cha : 1955 Date of Evaluation: 06/23/2023 ED Supervising Physician: Vita Carey DO I independently examined and evaluated Priscila Cha. This will serve as my Supervisory note and shared attestation. I did perform a substantive portion of the visit including all aspects of the Medical Decision Making. I wore appropriate PPE for the entirety of this encounter. In brief, Priscila Cha is a 67 y.o. female past medical history of COPD that presents to the emergency department abdominal pain. Patient reports recently had diverticuliti was diagnosed with diverticulitis flareup, however pain is worsening despite compliance with augmentin. Associated n/v. Focused exam: Gen: NAD Heart: RRR, no murmur Lungs: CTA Abd: LLQ TTP with no rebound, guarding, rigidity Brief ED course/MDM: Upon arrival to the ED, patient afebrile,, mildly tachycardic to low 100s, but otherwise hemodynamically stable and saturating well on room air. Left lower quadrant tenderness palpation with no peritoneal signs. CBC with leukocytosis of 1.9, however lactate negative, no evidence to suggest septic shock. CT revealed Acute diverticulitis involving the the distal descending colon extending into the sigmoid colon. No focal fluid collection or evidence of perforation. Incidental finding of infrarenal aortic aneurysm discussed with patient. Patient given Zosyn, given failed outpatient therapy, admit to medicine further management. Total critical care time today provided was at least 35 minutes. This excludes seperately billable procedure. Critical care time provided that required close evaluation and/or intervention with concern for patient decompensation. All diagnostic, treatment, and disposition decisions were made by myself in conjunction with the Resident. I also supervised shahid portions of any procedures performed by the Resident. For all further details of the patient's emergency department visit, please see their documentation. (Comment: Please note this report has been produced using speech recognition software and may contain errors related to that system including errors in grammar, punctuation, and spelling, as well as words and phrases that may be inappropriate. If there are any questions or concerns please feel freeto contact the dictating provider for clarification.) Vita Carey DO [employer] Vita Carey DO 06/23/232027 [email or web address] Phone: [phone] 137-138810-06-2023 Physician Emergency department Note* Klever Crawford MD - 06/23/2023 3:08 PM EDT EMERGENCY DEPARTMENT ENCOUNTER Pt Name: Priscila Cha Birthdate 1955 Date of evaluation: 06/23/2023 ED Provider: KLEVER CRAWFORD MD CHIEF COMPLAINT Chief Complaint Patient presents with Abdominal Pain Pt. States that she was recently diagnosed with diverticulitis and is having a flare up but the abxshe was prescribed are not helping. N/V/D and severe generalized abd. pn since Monday. HISTORY OF PRESENT ILLNESS (Location/Symptom, Timing/Onset, Context/Setting, Quality, Duration, Modifying Factors, Severity) Note limiting factors. I wore appropriate PPE for the entirety of this encounter. HPI Priscila Cha is a 67 y.o. female who presents to the emergency department for evaluation of left lower quadrant abdominal pain. States a week ago she was diagnosed with diverticulitis and discharged with outpatient therapy of Augmentin, states she has taken about 5 days worth of the Augmentin andsymptoms of seemed to gotten worse and not better. Patient states that she is having significant left lower quadrant abdominal pain with nausea and vomiting, also reports that she was constipated until today when she had significant BM, soft and dark unsure if melena. Patient denies fever/chills, chest pain, shortness of breath. Endorses decreased urinary output, states she feels like she needs to urinate but cannot. Nursing Notes were reviewed. Limitations to history: None Outside historians: None REVIEW OF SYSTEMS Review of Systems as documented in HPI above. PAST MEDICAL HISTORY Past Medical History: Diagnosis Date Arthritis COPD exacerbation (HCC) 06/20/2022 Pneumonia 03/04/2019 Primary hypertension 06/24/2023 SURGICAL HISTORY Past Surgical History: Procedure Laterality Date BACK SURGERY N/A 2017 lower back in middle MANDIBLE SURGERY Bilateral 1983 wires on both jaws now TONSILLECTOMY (HISTORICAL) CURRENT MEDICATIONS Current Discharge Medication List CONTINUE these medications which have NOT CHANGED Details amLODIPine (Norvasc) 5 MG tablet Take 1 tablet by mouth daily. Fxqdlsppqlv-Qdhzskjsi-Zehaog (Trelegy Ellipta) 100-62.5-25 MCG/ACT aerosol powder Inhale 1 puff daily. albuterol 108 (90 Base) MCG/ACT inhaler Inhale 2 puffs every 4 hours as needed for shortness of breath or wheezing. gabapentin (Neurontin) 300 MG capsule Take 300 mg by mouth 2 times daily as needed. ibuprofen 600 MG tablet Take 600 mg by mouth. traZODone (Desyrel) 50 MG tablet Take 50 mg by mouth every evening. ALLERGIES Codeine, Levofloxacin, and Sulfa antibiotics FAMILY HISTORY Family History Problem Relation Name Age of Onset No Known Problems Other No Known Problems Brother No Known Problems Maternal Grandfather No Known Problems Paternal Grandfather No Known Problems Sister No Known Problems Maternal Grandmother No Known Problems Paternal Grandmother SOCIAL HISTORY Social History Socioeconomic History Marital status: Tobacco Use Smoking status: Every Day Packs/day: .5 Types: Cigarettes Smokeless tobacco: Current Tobacco comments: Quit smoking: trying to quit Substance and Sexual Activity Alcohol use: Not Currently Drug use: Never SCREENINGS PHYSICAL EXAM ED Triage Vitals Temp Heart Rate Resp BP 06/23/23 1512 06/23/23 1512 06/23/23 1512 06/23/23 1512 36.3 C (97.3 F) 107 16 (!) 137/102 SpO2 Temp Source Heart Rate Source Patient Position 06/23/23 1512 06/23/23 1512 06/23/23 1512 06/24/23 0200 94 % Temporal Monitor Lying BP Location FiO2 (%) 06/24/23 0200 -- Left arm Physical Exam General: Lying in bed, appears uncomfortable but nontoxic. Head: Atraumatic. Normocephalic. Eyes: Sclera anicteric. PERRL, EOMI. ENT: Mucous membranes moist. Heart: Tachycardic rate and regular rhythm. Radial pulses intact and equal bilaterally. Lungs: Clear to auscultation bilaterally. Normal respiratory pattern without conversational dyspneaor respiratory distress. Abdomen: Soft, tender to palpation in the left lower quadrant. Abdomen non- distended, without guarding or peritoneal signs. Neurologic: Awake and alert, normal speech and mental status. Moves all extremities equally well. No focal deficits or lateralizing signs. Psychiatric: Mood and affect appropriate. Skin: Warm and dry, no appreciable rash. Musculoskeletal: Normal bulk and tone without evidence of trauma. No peripheral edema. No signs of DVT. DIAGNOSTIC RESULTS RADIOLOGY (Per Emergency Physician): Interpretation per the Radiologist below, if available at the time of this note: CT abdomen pelvis w contrast Final Result 1. Acute sigmoid diverticulitis. No pneumoperitoneum or fluid collection. Appearance is similar to prior exam from 06/23/2023. 2. Abdominal aortic aneurysm measuring 3 cm. Report Dictated on Electronically Signed By: Soila Martins MD Electronically Signed Date/Time: 06/27/2023 5:[address] abdomen pelvis w contrast Final Result 1. Acute diverticulitis involving the the distal descending colon extending into the sigmoid colon.No focal fluid collection or evidence of perforation. 2. Moderate to severe mixed atherosclerotic plaque with infrarenal abdominal aortic aneurysm measuring 3.3 x 3.0 cm, previously 2.9 x 2.7 cm. Please see below recommendations. 3. Mild biliary ductal dilatation also seen on prior study and likely postsurgical. 4. Tiny joe of intraluminal air within the urinary bladder. This is nonspecific and could reflectrecent instrumentation or infection. Given proximity to sigmoid colon fistula could be considered though this is felt to be less likely. Reference: Recommended interval for initial follow-up imaging of ectatic aortas and aneurysms: Og et al. JACR. 2013 Diameter Imaging interval 2.5-2.9 cm 5 y 3.0-3.4 cm 3 y 3.5-3.9 cm 2 y 4.0-4.4 cm 1 y 4.5-4.9 cm 6 mo 5.0-5.5 cm 3-6 mo Report Dictated on Electronically Signed By: Moises Little MD Electronically Signed Date/Time: 06/23/2023 6:13 PM EDT LABS: Labs Reviewed COMPREHENSIVE METABOLIC PANEL - Abnormal Result Value SODIUM 136 POTASSIUM 3.7 CHLORIDE 102 CARBON DIOXIDE 27 ANION GAP 8 UREA NITROGEN 10 CREATININE 0.55 GLUCOSE 143 (*) CALCIUM 9.3 AST (SGOT) 26 ALT 17 ALKALINE PHOSPHATASE 69 ALBUMIN 3.9 BILIRUBIN, TOTAL 0.2 TOTAL PROTEIN 7.4 eGFR >90.0 CBC WITH AUTO DIFFERENTIAL - Abnormal Auto WBC 11.9 (*) RBC 4.73 Hemoglobin 13.8 Hematocrit 40.7 MCV 86.2 MCH 29.2 MCHC 33.8 RDW 16.0 (*) Platelets 457 (*) MPV 7.5 nRBC 0.0 Neutrophils Relative 78.5 Lymphocytes Relative 11.9 (*) Monocytes Relative 7.9 Eosinophils Relative 0.9 (*) Basophils Relative 0.8 Neutrophils Absolute 9.3 (*) Lymphocytes Absolute 1.4 Monocytes Absolute 0.9 (*) Eosinophils Absolute 0.1 Basophils Absolute 0.1 COMPLETE URINALYSIS - Abnormal Color, Urine Light Yellow Clarity, Urine Clear pH, Urine 6.5 Leukocytes, Urine Negative Nitrite, Urine Negative Protein, Urine 10 (*) Glucose, Urine Normal Bilirubin, Urine Negative Ketones, Urine Negative Urobilinogen, Urine Normal Blood, Urine Negative RBC, Urine 0-2 WBC, Urine 0-2 Squamous Epithelial, Urine 3-5 Bacteria, Urine Few (*) SPECIFIC GRAVITY OF URINE (NUMERIC) >1.030 (*) CBC WITH AUTO DIFFERENTIAL - Abnormal Auto WBC 9.4 RBC 4.12 Hemoglobin 12.1 Hematocrit 35.7 MCV 86.6 MCH 29.3 MCHC 33.8 RDW 16.0 (*) Platelets 428 MPV 7.3 (*) nRBC 0.0 Neutrophils Relative 71.8 Lymphocytes Relative 15.3 (*) Monocytes Relative 10.7 (*) Eosinophils Relative 1.5 Basophils Relative 0.7 Neutrophils Absolute 6.8 Lymphocytes Absolute 1.4 Monocytes Absolute 1.0 (*) Eosinophils Absolute 0.1 Basophils Absolute 0.1 COMPREHENSIVE METABOLIC PANEL - Abnormal SODIUM 132 (*) POTASSIUM 3.7 CHLORIDE 105 CARBON DIOXIDE 25 ANION GAP 2 (*) UREA NITROGEN 10 CREATININE 0.66 GLUCOSE 103 (*) CALCIUM 8.4 AST (SGOT) 19 ALT 14 ALKALINE PHOSPHATASE 56 ALBUMIN 3.3 (*) BILIRUBIN, TOTAL 0.2 TOTAL PROTEIN 6.5 eGFR >90.0 CBC WITH AUTO DIFFERENTIAL - Abnormal Auto WBC 7.1 RBC 3.81 Hemoglobin 11.1 (*) Hematocrit 32.8 (*) MCV 86.2 MCH 29.2 MCHC 33.9 RDW 15.8 (*) Platelets 392 MPV 7.4 nRBC 0.0 Neutrophils Relative 63.9 Lymphocytes Relative 20.3 Monocytes Relative 12.9 (*) Eosinophils Relative 1.8 Basophils Relative 1.1 Neutrophils Absolute 4.5 Lymphocytes Absolute 1.4 Monocytes Absolute 0.9 (*) Eosinophils Absolute 0.1 Basophils Absolute 0.1 COMPREHENSIVE METABOLIC PANEL - Abnormal SODIUM 137 POTASSIUM 3.9 CHLORIDE 106 CARBON DIOXIDE 25 ANION GAP 6 UREA NITROGEN 4 (*) CREATININE 0.64 GLUCOSE 94 CALCIUM 8.7 AST (SGOT) 18 ALT 13 ALKALINE PHOSPHATASE 55 ALBUMIN 3.1 (*) BILIRUBIN, TOTAL 0.2 TOTAL PROTEIN 6.1 (*) eGFR >90.0 CBC WITH AUTO DIFFERENTIAL - Abnormal Auto WBC 8.7 RBC 3.97 Hemoglobin 11.3 (*) Hematocrit 34.1 (*) MCV 85.8 MCH 28.4 MCHC 33.1 RDW 15.7 (*) Platelets 424 MPV 7.3 (*) nRBC 0.1 Neutrophils Relative 76.8 Lymphocytes Relative 11.0 (*) Monocytes Relative 10.6 (*) Eosinophils Relative 1.1 Basophils Relative 0.5 Neutrophils Absolute 6.7 Lymphocytes Absolute 1.0 Monocytes Absolute 0.9 (*) Eosinophils Absolute 0.1 Basophils Absolute 0.0 COMPREHENSIVE METABOLIC PANEL - Abnormal SODIUM 133 (*) POTASSIUM 3.5 CHLORIDE 101 CARBON DIOXIDE 30 ANION GAP 1 (*) UREA NITROGEN 4 (*) CREATININE 0.62 GLUCOSE 86 CALCIUM 8.6 AST (SGOT) 21 ALT 14 ALKALINE PHOSPHATASE 53 ALBUMIN 3.3 (*) BILIRUBIN, TOTAL 0.4 TOTAL PROTEIN 6.5 eGFR >90.0 CBC WITH AUTO DIFFERENTIAL - Abnormal Auto WBC 13.5 (*) RBC 4.41 Hemoglobin 12.4 Hematocrit 38.0 MCV 86.0 MCH 28.0 MCHC 32.5 RDW 16.3 (*) Platelets 435 MPV 7.4 nRBC 0.1 Neutrophils Relative 76.3 Lymphocytes Relative 11.7 (*) Monocytes Relative 10.6 (*) Eosinophils Relative 0.8 (*) Basophils Relative 0.6 Neutrophils Absolute 10.3 (*) Lymphocytes Absolute 1.6 Monocytes Absolute 1.4 (*) Eosinophils Absolute 0.1 Basophils Absolute 0.1 COMPREHENSIVE METABOLIC PANEL - Abnormal SODIUM 132 (*) POTASSIUM 4.0 CHLORIDE 101 CARBON DIOXIDE 26 ANION GAP 5 UREA NITROGEN 5 (*) CREATININE 0.61 GLUCOSE 97 CALCIUM 8.8 AST (SGOT) 21 ALT 15 ALKALINE PHOSPHATASE 66 ALBUMIN 3.7 BILIRUBIN, TOTAL 0.5 TOTAL PROTEIN 7.2 eGFR >90.0 CBC WITH AUTO DIFFERENTIAL - Abnormal Auto WBC 8.5 RBC 3.77 (*) Hemoglobin 10.5 (*) Hematocrit 32.5 (*) MCV 86.3 MCH 27.8 MCHC 32.3 RDW 15.9 (*) Platelets 379 MPV 7.4 nRBC 0.0 Neutrophils Relative 69.3 Lymphocytes Relative 13.9 (*) Monocytes Relative 15.3 (*) Eosinophils Relative 1.1 Basophils Relative 0.4 Neutrophils Absolute 5.9 Lymphocytes Absolute 1.2 Monocytes Absolute 1.3 (*) Eosinophils Absolute 0.1 Basophils Absolute 0.0 COMPREHENSIVE METABOLIC PANEL - Abnormal SODIUM 134 (*) POTASSIUM 3.5 CHLORIDE 103 CARBON DIOXIDE 26 ANION GAP 5 UREA NITROGEN 4 (*) CREATININE 0.57 GLUCOSE 129 (*) CALCIUM 8.3 (*) AST (SGOT) 21 ALT 15 ALKALINE PHOSPHATASE 52 ALBUMIN 3.1 (*) BILIRUBIN, TOTAL 0.4 TOTAL PROTEIN 6.1 (*) eGFR >90.0 C-REACTIVE PROTEIN - Abnormal C REACTIVE PROTEIN 146.9 (*) CBC WITH AUTO DIFFERENTIAL - Abnormal Auto WBC 6.5 RBC 3.25 (*) Hemoglobin 9.2 (*) Hematocrit 27.9 (*) MCV 86.0 MCH 28.3 MCHC 32.9 RDW 15.8 (*) Platelets 330 MPV 7.8 nRBC 0.0 Neutrophils Relative 65.5 Lymphocytes Relative 14.9 (*) Monocytes Relative 16.8 (*) Eosinophils Relative 2.0 Basophils Relative 0.8 Neutrophils Absolute 4.2 Lymphocytes Absolute 1.0 Monocytes Absolute 1.1 (*) Eosinophils Absolute 0.1 Basophils Absolute 0.1 COMPREHENSIVE METABOLIC PANEL - Abnormal SODIUM 135 POTASSIUM 3.4 (*) CHLORIDE 110 (*) CARBON DIOXIDE 25 ANION GAP 1 (*) UREA NITROGEN 3 (*) CREATININE 0.39 (*) GLUCOSE 118 (*) CALCIUM 7.4 (*) AST (SGOT) 24 ALT 12 ALKALINE PHOSPHATASE 31 (*) ALBUMIN 2.6 (*) BILIRUBIN, TOTAL 0.4 TOTAL PROTEIN 5.4 (*) eGFR >90.0 CBC WITH AUTO DIFFERENTIAL - Abnormal Auto WBC 7.9 RBC 3.67 (*) Hemoglobin 10.4 (*) Hematocrit 31.6 (*) MCV 86.2 MCH 28.3 MCHC 32.8 RDW 15.7 (*) Platelets 433 MPV 7.6 nRBC 0.0 Neutrophils Relative 61.0 Lymphocytes Relative 18.7 (*) Monocytes Relative 16.4 (*) Eosinophils Relative 3.1 Basophils Relative 0.8 Neutrophils Absolute 4.8 Lymphocytes Absolute 1.5 Monocytes Absolute 1.3 (*) Eosinophils Absolute 0.2 Basophils Absolute 0.1 COMPREHENSIVE METABOLIC PANEL - Abnormal SODIUM 137 POTASSIUM 3.8 CHLORIDE 107 CARBON DIOXIDE 29 ANION GAP 1 (*) UREA NITROGEN 4 (*) CREATININE 0.52 GLUCOSE 80 CALCIUM 8.8 AST (SGOT) 17 ALT 14 ALKALINE PHOSPHATASE 51 ALBUMIN 3.3 (*) BILIRUBIN, TOTAL 0.2 TOTAL PROTEIN 6.4 eGFR >90.0 GASTROINTESTINAL PCR PANEL - Normal Campylobacter Not Detected Plesiomonas shigelloides Not Detected Salmonella Not Detected Vibrio species Not Detected Vibrio cholerae Not Detected Yersinia enterocolitica Not Detected Enterotoxigenic E coli (ETEC) Not Detected Shiga toxin-producing E coli (STEC) Not Detected Shigella/Enteroinvasive E coli (EIEC) Not Detected Cryptosporidium Not Detected Cyclospora cayetanensis Not Detected Entamoeba histolytica Not Detected Giardia lamblia Not Detected Adenovirus F 40/41 Not Detected Astrovirus Not Detected Norovirus GI/GII Not Detected Rotavirus A Not Detected Sapovirus Not Detected Narrative: Methodology: Multiplex PCR C. DIFFICILE BY PCR WITH REFLEX TO EIA - Normal C. difficile toxin PCR Not Detected Narrative: C. difficile infection is unlikely to be present. Methodology: Real-time PCR LIPASE - Normal LIPASE 26 LACTIC ACID WITH REFLEX - Normal LACTIC ACID 0.7 MAGNESIUM - Normal MAGNESIUM 1.9 MAGNESIUM - Normal MAGNESIUM 1.9 LACTIC ACID WITH REFLEX - Normal LACTIC ACID 0.7 PROCALCITONIN TEST - Normal PROCALCITONIN 0.07 Narrative: PCT <0.50 = Low risk of severe sepsis and/or septic shock. PCT >2.00 = High risk of severe sepsis and/or septic shock. MAGNESIUM - Normal MAGNESIUM 1.8 COMPLETE URINALYSIS WITH REFLEX TO CULTURE Narrative: The following orders were created for panel order Urinalysis complete with reflex to Culture. Procedure Abnormality Status --------- ------ Complete Urinalysis[[id number]] Abnormal Final result Please view results for these tests on the individual orders. COMPREHENSIVE METABOLIC PANEL WITH MG REFLEX Narrative: The following orders were created for panel order Comprehensive Metabolic Panel w/ Mg Reflex. Procedure Abnormality Status --------- ------ Comprehensive metabolic p...[[id number]] Abnormal Final result Please view results for these tests on the individual orders. COMPREHENSIVE METABOLIC PANEL WITH MG REFLEX Narrative: The following orders were created for panel order Comprehensive Metabolic Panel w/ Mg Reflex. Procedure Abnormality Status --------- ------ Comprehensive metabolic p...[[id number]] Abnormal Final result Please view results for these tests on the individual orders. COMPREHENSIVE METABOLIC PANEL WITH MG REFLEX Narrative: The following orders were created for panel order Comprehensive Metabolic Panel w/ Mg Reflex. Procedure Abnormality Status --------- ------ Comprehensive metabolic p...[[id number]] Abnormal Final result Please view results for these tests on the individual orders. COMPREHENSIVE METABOLIC PANEL WITH MG REFLEX Narrative: The following orders were created for panel order Comprehensive Metabolic Panel w/ Mg Reflex. Procedure Abnormality Status --------- ------ Comprehensive metabolic p...[[id number]] Abnormal Final result Please view results for these tests on the individual orders. COMPREHENSIVE METABOLIC PANEL WITH MG REFLEX Narrative: The following orders were created for panel order Comprehensive Metabolic Panel w/ Mg Reflex. Procedure Abnormality Status --------- ------ Comprehensive metabolic p...[[id number]] Abnormal Final result Please view results for these tests on the individual orders. COMPREHENSIVE METABOLIC PANEL WITH MG REFLEX Narrative: The following orders were created for panel order Comprehensive Metabolic Panel w/ Mg Reflex. Procedure Abnormality Status --------- ------ Comprehensive metabolic p...[[id number]] Abnormal Final result Please view results for these tests on the individual orders. COMPREHENSIVE METABOLIC PANEL WITH MG REFLEX Narrative: The following orders were created for panel order Comprehensive Metabolic Panel w/ Mg Reflex. Procedure Abnormality Status --------- ------ Comprehensive metabolic p...[[id number]] Abnormal Final result Please view results for these tests on the individual orders. All other labs were within normal range or not returned as of this dictation. EMERGENCY DEPARTMENT COURSE and DIFFERENTIAL DIAGNOSIS/MDM: Vitals: Vitals: 06/29/23 1237 06/29/23201306/30/23 0738 06/30/23 1154 BP: 121/61 134/67 (!) 142/86 BP Location: Left arm Left arm Patient Position: Sitting Lying Pulse: 76 65 76 Resp: 16 16 Temp: 36.7 C (98.1 F) 36.9 C (98.4 F) TempSrc: Temporal Temporal SpO2: 91% 95% Weight: Height: 1.6 m (5' 3 ) Patient is a 67-year-old female who presented for evaluation of ongoing left lower quadrant abdominal pain after failed outpatient management of diverticulitis. Patient history and exam laboratory and imaging evaluation ordered as well as symptom control with morphine and Zofran. Patient states she has been drinking significant amounts of water and has had difficulty urinating so we will hold offon IV fluids at this time until further evaluation with work- up. Patient prior evaluation was at [facility] facility and we are unable to see the labs or imaging at that time so we will obtain a CT abdomen/pelvis with contrast. Patient will likely require antibiotics and will be admitted for failure of outpatient management. The differential for this patient includes but is not limited to diverticulitis, abscess, constipation, ileus, UTI. ED testing and evaluation will be obtained to help differentiate these diagnostic possibilities anddetermine the most likely cause. Medications provided in the ED are listed below. Studies independently interpreted by me: Chronic conditions affecting patient care include: ED Course: ED workup notable for Laboratory findings of mild leukocytosis 11.9, mild hyponatremia 132, UA not consistent with UTI. CT results per radiologist report are concerning for acute diverticulitis in the distal descending colon extending into the sigmoid colon with no fluid collection or evidence of perforation as well as atherosclerotic plaque and 3.3 x 3.0 aneurysm in the abdominal aorta. Also noted possible intraluminal air in the urinary bladder which could represent fistula to the colon although felt to be unlikely. Although not technically meeting the conditions for sepsis patient was started on broad- spectrum antibiotic coverage with Zosyn IV due to concern for her diverticulitis which is not responding to outpatient therapy. Patient will be admitted for further treatment. All findings were discussed with patient/family at bedside, all questions were answered and all concerns addressed. Patient/family stated understanding of findings and agreement with plan for admission. Diagnoses as of 06/30/23 1508 Generalized abdominal pain Diverticulitis ED Medications managed: Medications polyethylene glycol (PEG) 3350 (Miralax) packet 17 g (17 g Oral Not Given 06/30/23850) naloxone (Narcan) injection 0.4 mg (has no administration in time range) oxyCODONE (Roxicodone) immediate release tablet 5 mg (5 mg Oral Given 06/30/23853) Or oxyCODONE (Roxicodone) immediate release tablet 10 mg ( Oral See Alternative 06/30/23853) mometasone-formoterol (Dulera 100) 100-5 MCG/ACT inhaler 2 puff (2 puffs Inhalation Not Given 06/30/23848) tiotropium (Spiriva) 18 MCG per inhalation capsule 18 mcg (18 mcg Inhalation Not Given 06/30/2350) gabapentin (Neurontin) capsule 300 mg (has no administration in time range) traZODone (Desyrel) tablet 50 mg (50 mg Oral Given 06/29/232126) amLODIPine (Norvasc) tablet 5 mg (5 mg Oral Given 06/30/2349) albuterol 108 (90 Base) MCG/ACT inhaler 2 puff (has no administration in time range) acetaminophen (Tylenol) tablet 650 mg (has no administration in time range) Or acetaminophen (Tylenol) suppository 650 mg (has no administration in time range) ondansetron ODT (Zofran-ODT) disintegrating tablet 4 mg (4 mg Oral Given 06/27/23934) Or ondansetron (Zofran) injection 4 mg ( IntraVENous See Alternative 06/27/23934) polyethylene glycol (PEG) 3350 (Miralax) packet 17 g (has no administration in time range) Influenza Vac A&B SA Adj quadrivalent (Fluad) vaccine 0.5 mL (0.5 mL IntraMUSCular Not Given 06/27/23 0900) enoxaparin (Lovenox) syringe 40 mg (40 mg SubCUTAneous Not Given 06/30/23 0849) sodium chloride 0.9 % infusion (50 mL/hr IntraVENous New Bag 06/30/23 0508) melatonin tablet 3 mg (has no administration in time range) piperacillin-tazobactam (Zosyn) 3,375 mg in sodium chloride 0.9 % 50 mL IVPB Mini-Bag Plus (0 mg IntraVENous Stopped 06/30/23 1257) HYDROmorphone (Dilaudid) injection 0.5 mg (0.5 mg IntraVENous Given 06/30/23 1206) senna-docusate sodium (Senokot-S) 8.6-50 MG tablet 2 tablet (has no administration in time range) hydrocortisone 2.5 % cream ( Topical Given 06/30/23 0851) hydrALAZINE (Apresoline) injection 10 mg (has no administration in time range) morphine injection 4 mg (4 mg IntraVENous Given 06/23/23 1601) ondansetron (Zofran) injection 4 mg (4 mg IntraVENous Given 06/23/23 1600) iopamidol (Isovue-370) 76 % injection 75 mL (75 mL IntraVENous Given 06/23/23 1804) piperacillin-tazobactam (Zosyn) 4,500 mg in sodium chloride 0.9 % 100 mL IVPB Mini-Bag Plus (0 mg IntraVENous Stopped 06/23/23 1723) morphine injection 6 mg (6 mg IntraVENous Given 06/23/23 2113) fluconazole (Diflucan) tablet 150 mg (150 mg Oral Given 06/28/23 0524) potassium chloride CR (Klor-Con M20) ER tablet 40 mEq (40 mEq Oral Given 06/26/23 1435) iopamidol (Isovue-370) 76 % injection 75 mL (75 mL IntraVENous Given 06/27/23 1619) potassium chloride CR (Klor-Con M20) ER tablet 40 mEq (40 mEq Oral Given 06/29/23 1015) PROCEDURES: Unless otherwise noted below, none. Procedures FINAL IMPRESSION 1. Diverticulitis 2. Generalized abdominal pain DISPOSITION Admit 06/23/2023 09:18:39 PM PATIENT REFERRED TO: No follow-up provider specified. DISCHARGE MEDICATIONS: Current Discharge Medication List (Comment: Please note this report has been produced using speech recognition software and may contain errors related to that system including errors in grammar, punctuation, and spelling, as well as words and phrases that may be inappropriate. If there are any questions or concerns please feel freeto contact the dictating provider for clarification.) KLEVER CRAWFORD MD (electronically signed) Emergency Medicine Provider Klever Crawford MD Resident 06/30/23 1508 [id number] of Present illness Narrative* Rubén Jimenes MD - 05/01/2023 10:42 AM EDT ORTHOPAEDIC OFFICE NOTE CHIEF COMPLAINT: Right hip pain HISTORY OF PRESENT ILLNESS: Priscila Cha is a 67 year old female who presents for Follow-up evaluation of right hip pain secondary to degenerative joint disease. Overall she is doing okay. She reports that her pain is starting to increase was recently put on prednisone for COPD flare. Since being on the prednisone she is feeling better. She is starting to have side effects of being on prednisone multiple times over the last several months. She thinks she is gaining significant amount of weight. She denies current feverschills nausea vomiting weight loss fatigue or malaise. Reviewed nursing note and current pain scale. PAST MEDICAL HISTORY Diagnosis Date Anxiety Arthritis Atrophic vaginitis Chronic pain Constipation COPD (chronic obstructive pulmonary disease) ([facility]) Depression Dyspareunia in female Headache, migraine Hemorrhoids IBS (irritable bowel syndrome) patient denies IBS pt will d/w PCP Menopausal and female climacteric states Multilevel degenerative disc disease Panic disorder Shingles recurring Sinusitis Spondylolisthesis at L5-S1 level Urinary frequency PAST SURGICAL HISTORY Procedure Laterality Date BACK SURGERY HX 06/2017 cage around discs CATARACT EXTRACTION HX 2009 EXTENSIVE JAW SURGERY 1983 SEPTOPLASTY 1985 TONSILLECTOMY HX age 4 FAMILY HISTORY Problem Relation Age of Onset Coronary Artery Disease Mother Coronary Artery Disease Father Arthritis Other other (Congestive heart failure) Other Thyroid Other Disorder Social History Tobacco Use Smoking status: Every Day Packs/day: .75 Types: Cigarettes Smokeless tobacco: Never Tobacco comments: Trying to quit Substance Use Topics Alcohol use: No Drug use: No MEDICATIONS: Current Outpatient Medications Medication Sig predniSONE (DELTASONE) 10 mg tablet TAKE 4 TABLETS BY MOUTH DAILY FOR 3 DAYS, THEN 3 TABLETS DAILY FOR 3 DAYS, THEN 2 TABLETS DAILY FOR 3 DAYS, THEN 1 TABLET DAILY FOR 3 DAYS. TRELEGY ELLIPTA 100-62.5-25 mcg inhalation powder clonazePAM (KLONOPIN) 0.5 mg tablet Take 0.5 mg by mouth twice daily as needed. ibuprofen (MOTRIN) 600 mg tablet Take 600 mg by mouth every 6 hours as needed. gabapentin (NEURONTIN) 300 mg capsule Take 300 mg by mouth daily at bedtime. traZODone (DESYREL) 50 mg tablet modafinil (PROVIGIL) 100 mg tablet fluconazole (DIFLUCAN) 150 mg tablet 1 tablet po now; repeat in 2 days (Patient not taking: No sig reported) ADVAIR DISKUS 250-50 mcg/dose dsdv INHALE 1 PUFF ONCE A DAY INTO THE LUNGS (Patient not taking: No sig reported) No current facility-administered medications for this visit. ALLERGIES: ALLERGIES Allergen Reactions Levaquin [Levofloxa* GI Upset Sulfa (Sulfonamide * Vomiting PHYSICAL EXAMINATION: Resp 18 Ht 5' 3 (1.60m) Wt 144 lb (65.3kg) BMI 25.51 kg/(m^2). General Appearance: Well appearing, alert, in no acute distress, well-hydrated, well nourished. Skin: Skin color, texture, turgor normal, no suspicious rashes or lesions. Psych: Patient is alert and oriented to person, time and place. Mood and affect are normal. Respiratory: Breathing is symmetric and unlabored Gait: The patient's gait was observed. It was found to be Slow with mild antalgia on the right side. She does not require assistive device. Extremities: Right lower extremity was examined. Skin is intact without erythema, ecchymosis or surgical scar. There is no significant swelling, edema or effusion. There is no focal tenderness or palpable mass. Range of motion of the hip is 100 degrees forward flexion 40 degrees external rotation, 10 degrees internal rotation. There is pain with internal rotation. There is no pain with logroll oraxial loading of the hip. Range of motion of the knee is painless. Straight leg test negative. Lymphatic: There is no palpable lymphadenopathy Peripheral Pulses: Normal. Neurologic: Bilateral lower extremities were examined. There is 5/5 strength with hip flexion, kneeextension, dorsiflexion, EHL, plantar flexion. Sensation intact in all nerve dermatomes IMAGES: No results found for this or any previous visit (from the past 36 hour(s)). Plan ASSESSMENT AND PLAN: 1. Primary osteoarthritis of right hip - ICD9: 715.15, ICD10: M16.11 Functional Plan: Patient is a 67-year-old female present for follow-up evaluation of right hip painsecondary to degenerative joint disease. Currently she is feeling okay because she is on a prednisone taper as part of a COPD flareup. Before being on the prednisone her pain was increasing. I again d iscussed this with her at length. At this point she is not ready to proceed with hip replacement surgery. She does have an upcoming vacation that she is hoping to get through. She would like another intra-articular injection for therapeutic purposes. I will see her back as needed for this or another issue. All of her questions were answered satisfactorily. She expressed understanding of and agreement with the treatment plan. Medical Decision Making: Problems: Moderate: 1+ chronic illnesses with change Risk: Moderate: Moderate risk from testing/treatment Medical Decision Making Level: 4 - Moderate Return if symptoms worsen or fail to improve. Rubén Jimenes MD documented [facility] History of Present illness Narrative* Annabel Zavala MD - 04/20/2023 11:34 AM EDT Associated Order(s): Large Joint Arthro/Inj: L shoulder joint Post-Procedure Diagnose(s): Tear of left rotator cuff, unspecified tear extent, unspecified whethertraumatic Priscila Ryan Powellmariajose returns today for continued medical management of shoulder pain. Injections have worked well and repeat injections are requested today. Physical exam demonstrates no appreciable change compared to last visit. After discussion of the risk benefits and alternatives to continued treatment with corticosteroid injections we have elected to continue with medical management and forego any surgery. Follow-up willbe as needed for continued medical management as appropriate. Large Joint Arthro/Inj: L shoulder joint 04/20/2023 11:35 AM The procedure site was prepped in the usual sterile fashion. Site: L shoulder joint Medications: 80 mg triamcinolone acetonide 40 mg/mL Anesthetics: 4 mL BUPivacaine (PF) 0.25 % (2.5 mg/mL) Outcome: Tolerated well, no immediate complications Post-injection instructions were reviewed with the patient and the patient voiced understanding of these instructions. * Lachelle Pelletier LPN - 04/20/2023 11:22 AM EDT Injection is 2 ml Kenalog and 4 ml Marcaine. Injection prepared per physician order and handed off to Dr. Zavala. Reina Agrawal LPN documented in this encounterSelect [facility]23 Miscellaneous Notes* Telephone Encounter - Xiomara Winn - 01/23/2023 1:28 PM EDT Cancelled appointment with Dr. Vish Layton. Patient needs to see an orthopedic hip specialist. Xiomara Cortes Pss documented in this encounterSelect [facility]01-19-[facility]23 History of Present illness Narrative* Annabel Zavala MD - 10/06/2022 2:07 PM ESTAssociated Order(s): Large Joint Arthro/Inj: L shoulder joint Post-Procedure Diagnose(s): Tear of left rotator cuff, unspecified tear extent, unspecified whethertraumatic PAIN EVALUATION No data found in the last 1 encounters. Encounter Diagnosis ICD-10-CM 1. Tear of left rotator cuff, unspecified tear extent, unspecified whether traumatic M75.102 Priscila Cha returns for corticosteroid injection left shoulder. Large Joint Arthro/Inj: L shoulder joint 10/06/2022 2:09 PM The procedure site was prepped in the usual sterile fashion. Site: L shoulder joint Medications: 80 mg triamcinolone acetonide 40 mg/mL Anesthetics: 4 mL bupivacaine (PF) 0.25 % (2.5 mg/mL) Outcome: Tolerated well, no immediate complications Post-injection instructions were reviewed with the patient and the patient voiced understanding of these instructions. Annabel Zavala MD Shoulder & Elbow Surgeon Department of Orthopaedic Surgery [facility] * Lachelle Pelletier LPN - 10/06/2022 1:58 PM EST Injection is 4cc marcaine and 2cc kenalog. Injection prepared per physician order and handed off to SATINDER Reeder. Lachelle Pelletier LPN documented in this encounterSelect [facility]10-05-[facility]22 History of Present illness Narrative* April Sims RN - 06/22/2022 12:41 PM EDT Discharge instructions discussed with pt at the bedside. All questions answered and pt verbalized understating. * Campos Mann RCP - 06/22/2022 12:11 PM EDT [facility] Respiratory Care Department Progress Note As part of the Respiratory Assessment Program (RAP), the following Respiratory Therapist evaluationhas been completed, including a chart review and clinical/physical assessment. Respiratory Therapist RAP Evaluation Guideline Points 0 1 2 3 4 Points Strongly Consider History Factor No Pulmonary conditions Stable Pulmonary condition(s) Surgery or Intervention that may impact Pulmonary system (at risk) Surgery or Intervention that is impacting Pulmonary system Active Exacerbation of Pulmonary Condition 1 Respiratory Pattern Regular, RR= 12-18 BAKER or Increased RR= 19-24 Irregular, or RR= 25-30 SOB, talk in short sentences, or RR= 31-35 Severe SOB, accessory muscle use, one word answers, or RR>35 0 Aerosol Med(s), High Flow O2 Breath Sounds Clear Diminished in 1 lobe Diminished in ? 2 lobes Adventitious breath sounds Coarse crackles, Wheezes, or Diminished in >2 lobes 2 Aerosol Med(s), Bronchial Hygiene, Hyperinflation Cough & Sputum Strong cough, no secretion retention or production Weak cough, no secretion retention or production Weak cough, w/ production (less often than Q2hr), or secretion retention No cough, w/ secretion retention or production (less often than Q2hr) Significant secretion production (more often than Q2hr) or mucus plug 0 Aerosol Med(s), Bronchial Hygiene, Hyperinflation Level of Activity Ambulatory Ambulatory with Assist Up in chair or edge of bed (dangle) Non-ambulatory, bedridden with active ROM Completely paralyzed or without active ROM 0 Triage 5 0-2 Triage 4 3-5 Triage 3 6-10 Triage 2 11-14 Triage 1 ?15 Total 3 Triage Score = 4 TRIAGE SCORING - SUGGESTED FREQUENCIES Aerosol Therapy Bronchial Hygiene Hyperinflation Triage Score Q4h & PRN 1 Q4hWA (QID) & PRN 2 TID & PRN 3 BID & PRN 4 PRN 5 Therapy(s) Indicated Yes/No Aerosol Medication yes Hyperinflation no Bronchial Hygiene no High Flow Oxygen no RT to enter/modify frequency of treatment order in EMR/EHR to match this RAP evaluation. Based on this RAP evaluation the following therapy is being initiated: aerosol therapy At the following frequency: DuoNeb BID and PRN Comments: Thank you for involving Respiratory in the care of this patient, * Diya Taylor, MINNA - [employer]PER[employer] - 06/22/2022 10:53 AM EDT Pulmonary Progress Note Subjective: Patient states her breathing is improved today and she is currently on RA. She is no longer having pleuritic chest pain or shortness of breath. States she still has a cough with occasional production of clear phlegm. States she has a headache and mild nasal congestion today. Reports recent travel to [place] with contact to family member with possible cold. She flew home from [place] on 06/18 and came to [facility] 06/19. [facility] she also quit smoking a couple of months ago but started smokingagain while in [place]. She plans to quit again now that she is back home. Denies fever, chills, rhinorrhea, sinus pain/pressure, earache, sore throat, chest tightness, or wheezing. BP (!) 180/94 Pulse 61 Temp 97.7 F (36.5 C) (Temporal) Resp 16 Ht 5' 3 (1.6 m) Wt 142 lb14.4 oz (64.8 kg) SpO2 94% BMI 25.31 kg/m No intake or output data in the 24 hours ending 06/22/22 1053 Review of Systems Constitutional: Positive for fatigue. Negative for chills, diaphoresis and fever. HENT: Positive for congestion. Negative for ear discharge, ear pain, postnasal drip, rhinorrhea, sinus pressure, sinus pain and sore throat. Eyes: Negative for discharge, redness and itching. Respiratory: Positive for cough. Negative for apnea, chest tightness, shortness of breath and wheezing. Cardiovascular: Negative for chest pain, palpitations and leg swelling. Musculoskeletal: Negative for arthralgias and joint swelling. Skin: Negative for rash and wound. Allergic/Immunologic: Negative for environmental allergies. Neurological: Positive for headaches. Negative for dizziness, syncope, weakness and light-headedness. Psychiatric/Behavioral: Negative for confusion and sleep disturbance. The patient is nervous/anxious. Physical Exam Constitutional: General: She is not in acute distress. Appearance: She is not ill-appearing. HENT: Head: Normocephalic and atraumatic. Nose: Congestion present. Mouth/Throat: Mouth: Mucous membranes are moist. Eyes: Conjunctiva/sclera: Conjunctivae normal. Cardiovascular: Rate and Rhythm: Normal rate and regular rhythm. Heart sounds: No murmur heard. Pulmonary: Effort: Pulmonary effort is normal. No respiratory distress. Breath sounds: No stridor. No wheezing, rhonchi or rales. Comments: On RA. Clear lung sounds bilaterally. Chest: Chest wall: No tenderness. Musculoskeletal: General: Normal range of motion. Cervical back: Normal range of motion. Right lower leg: No edema. Left lower leg: No edema. Skin: General: Skin is warm and dry. Neurological: General: No focal deficit present. Mental Status: She is alert and oriented to person, place, and time. Psychiatric: Mood and Affect: Mood normal. Behavior: Behavior normal. Thought Content: Thought content normal. Judgment: Judgment normal. Medications: Scheduled Meds: amLODIPine 5 mg Oral Daily predniSONE 40 mg Oral Daily ipratropium-albuterol 1 ampule Inhalation Q4H WA insulin lispro 0-4 Units SubCUTAneous TID WC insulin lispro 0-4 Units SubCUTAneous Nightly guaiFENesin 600 mg Oral BID doxycycline hyclate 100 mg Oral Q12H ketorolac 15 mg IntraVENous Q6H mometasone-formoterol 2 puff Inhalation BID And [Held by provider] tiotropium 18 mcg Inhalation Daily Continuous Infusions: dextrose PRN Meds: perflutren lipid microspheres, sodium chloride flush, glucose, dextrose, glucagon (rDNA), dextrose,clonazePAM, acetaminophen Labs: Recent Labs 06/19/22 1716 06/20/2235106/21/22447 WBC 11.8* 9.8 14.9* HGB 12.8 13.1 12.0 HCT 38.8 39.6 35.9 MCV 84.9 86.7 85.2 PLT 301 297 314 BMP: Recent Labs 06/20/2235106/21/2244706/22/22 0858 NA 135 135 139 K 4.0 4.1 3.6 CL 106 105 108* CO2 23 25 26 BUN 17 23* 29* CREATININE 0.61 0.73 0.73 Films: CXR reviewed by me Patient Active Problem List Diagnosis Chest pain Pneumonia Dizziness Community acquired pneumonia COPD exacerbation (HCC) Assessment/Plan: COPD AE 2/2 suspect viral URI d/t recent travel and contact with family member with URI. Continue steroid taper, doxycycline, and home inhalers on discharge. Encouraged rest and fluids. Follow up with pulm outpatient in [place]. Acute hypoxic respiratory failure- Required 2 LPM O2 via NC yesterday. Today she is on RA. MaintainSpO2 >92%. Pleuritic chest pain- improved. Cigarette nicotine dependence- 46 pack years. Recently quit a couple months ago and started smokingagain while on vacation last week. Plans to quit again she has nicotine patches at home. Encouragedsmoking cessation. Plan of care reviewed with Dr Tinajero. Follows with workers' compensation commissioner in [place] and has an appointment made for the end of June. * Doni Guzman MD - 06/21/2022 12:14 PM EDT Images from the original note were not included. Hospitalist Progress Note 06/21/2022 12:14 PM Subjective: Admit Date: 06/19/2022 PCP: LEONID DEE MD Interval History: admitted for pleurtitic chest pain and COPD exacerbation . Today: Still has sharp chest pain, more on right side, under the breast, more with deep inspiration . Breathing better Afebrile Not much cough or expectoration. No abdominal pain ADULT DIET; Regular No intake/output data recorded. Patient Vitals for the past 96 hrs (Last 3 readings): Weight 06/19/22 2145 142 lb 14.4 oz (64.8 kg) 06/19/22 1659 139 lb (63 kg) Medications: dextrose predniSONE 40 mg Oral Daily amLODIPine 2.5 mg Oral Daily ipratropium-albuterol 1 ampule Inhalation Q4H WA insulin lispro 0-4 Units SubCUTAneous TID WC insulin lispro 0-4 Units SubCUTAneous Nightly guaiFENesin 600 mg Oral BID doxycycline hyclate 100 mg Oral Q12H ketorolac 15 mg IntraVENous Q6H [Held by provider] mometasone-formoterol 2 puff Inhalation BID And [Held by provider] tiotropium 18 mcg Inhalation Daily Recent Labs 06/19/22 1716 06/20/22 0352 06/21/22 0448 WBC 11.8* 9.8 14.9* HGB 12.8 13.1 12.0 PLT 301 297 314 Recent Labs 06/19/22 1716 06/20/22 0352 06/21/22 0448 NA 137 135 135 K 3.7 4.0 4.1 CL 106 106 105 CO2 28 23 25 BUN 15 17 23* CREATININE 0.70 0.61 0.73 GLUCOSE 127* 170* 148* Recent Labs 06/19/22 1716 AST 23 ALT 16 BILITOT 0.4 ALKPHOS 59 No results found for: TRIG, HDL, LDLCALC, CHOL No results found for: PHART, PO2ART, VVM2GWC No results for input(s): INR in the last 72 hours. Recent Labs 06/19/22 1716 06/20/22 1958 TROPONINI <0.012 <0.012 No results for input(s): DDIMER in the last 72 hours. No components found for: HGBA1C No results found for: TSH Urine Culture: Results for orders placed or performed during the hospital encounter of 07/17/20 Culture, Urine Specimen: Urine Result Value Ref Range Urine Culture, Routine Klebsiella oxytoca (A) Urine Culture, Routine >100,000 CFU/ml Susceptibility Klebsiella oxytoca - BACTERIAL SUSCEPTIBILITY PANEL BY IVÁN ampicillin Resistant ceFAZolin <=4 Sensitive cefTRIAXone <=1 Sensitive cefepime <=1 Sensitive aztreonam <=1 Sensitive amoxicillin-clavulanate <=2 Sensitive ampicillin-sulbactam 4 Sensitive piperacillin-tazobactam <=4 Sensitive meropenem <=0.25 Sensitive ciprofloxacin <=0.25 Sensitive trimethoprim-sulfamethoxazole <=20 Sensitive nitrofurantoin 32 Sensitive gentamicin <=1 Sensitive amikacin <=2 Sensitive Objective: Vitals: BP (!) 161/88 Pulse 81 Temp 97 F (36.1 C) (Temporal) Resp 18 Ht 5' 3 (1.6 m) Wt 142 lb 14.4 oz (64.8 kg) SpO2 93% BMI 25.31 kg/m Pulse Ox: SpO2 Av.6 % Min: 93 % Max: 99 % Supplemental O2: O2 Flow Rate (L/min): 2 L/min General appearance: alert and cooperative with exam Lungs: b/l equal air entry, no added sound Heart: s1,s2,mo Abdomen: soft, NT, BS+ Extremities: no edema Neurologic: No obvious focal neurologic deficits. Assessment Pleuritic chest pain COPD exacerbation Mild leucocytosis HTN- amlodipine 2.5 mg daily Diagnosis Date Arthritis COPD exacerbation (HCC) 06/20/2022 Pneumonia 03/04/2019 Plan - EKG - no ST-T changes - CTA chest - negative for PE. - troponin 1 set negative , will cycle 2 more sets. - change solumedrol to oral. -ECHO, USG right upper quadrant. -pulmonology consult pending -am labs -increase activity Advance Directive: Full Code Discharge plannin06/21 Doni Guzman MD, MD Rounding Hospitalist * Lilo Downs DTR - 06/21/2022 8:43 AM EDT Nutrition rescreen complete. Pt assigned a level one for nutrition care. * Maira Juarez RN - 06/20/2022 6:56 PM EDT Pt reporting an increase in pain bilaterally below her breasts. A throb, pain level is an 8. Page IMS. * Maira Juarez RN - 06/20/2022 12:30 PM EDT Pt placed on 2L oxygen N/C per SPECIAL EFFECTS TECHNICIAN. * MINNA Hernández CNP - 06/20/2022 12:21 PM EDT Clinical Decision Unit Progress Note Subjective: tired fatigue, requiring oxygen at rest. Focused Physical Exam: Vital signs reviewed general: Alert and oriented 3 head: Atraumatic eyes: Equal round reactive to light and accommodating, pupils are equal, round and reactive to light and accommodation oropharynx: Clear and well hydrated neck: Supple no lymphadenopathy heart: Regular rate and rhythm, no murmurs lungs: Clear to auscultation bilaterally diminished bases. No inspiratory expiratory wheezes noted. abdomen: Soft nontender, positive bowel sounds, no peritoneal findings. Extremities: Moving all fours, no tenderness. Normal capillary refill. Skin: No rash or lesions neurologically: Alert and oriented 3, cranial nerves grossly intact, strength, sensation, reflexes intact. Cerebellar function intact. Gait is steady. Nursing Notes Reviewed VITAL SIGNS: BP (!) 155/87 Pulse (!) 109 Temp 97.1 F (36.2 C) (Temporal) Resp 17 Ht 5' 3 (1.6 m) Wt 142 lb 14.4 oz (64.8 kg) SpO2 94% BMI 25.31 kg/m Labs (Updated from initial H&P): Results for orders placed or performed during the hospital encounter of 06/19/22 COVID-19, Flu A/B, and RSV Combo Specimen: Nasopharyngeal nasalpharangeal Result Value Ref Range SARS-CoV-2 Not Detected. Influenza A by PCR Not Detected. Influenza B by PCR Not Detected. RSV PCR Not Detected. Expected Result: Not Detected _ Method: Real-time, RT-PCR This assay was developed by [employer] and distributed under an Emergency Use Authorization (EUA) granted by the FDA for the qualitative detection of nucleic acids from SARS-CoV-2, Influenza A, Influenza B, and Respiratory Syncytial Virus. Provider and patient fact sheets can be found at https://www.fda.gov/media/661352/download and https://www.fda.gov/media/976806/download. CBC Result Value Ref Range WBC 11.8 (H) 3.6 - 10.7 10*3/uL RBC 4.57 3.80 - 5.20 10*6/uL Hemoglobin 12.8 11.7 - 16.0 g/dL Hematocrit 38.8 35.0 - 47.0 % MCV 84.9 79.0 - 98.0 fL MCH 28.1 26.0 - 34.0 pg MCHC 33.1 32.0 - 36.0 % RDW 16.3 (H) 11.5 - 14.5 % Platelets 301 140 - 440 10*3/uL MPV 7.4 7.4 - 12.4 fL Comprehensive Metabolic Panel Result Value Ref Range Sodium 137 135 - 145 mmol/L Potassium 3.7 3.5 - 5.1 mmol/L Chloride 106 98 - 107 mmol/L CO2 28 22 - 30 mmol/L Anion Gap 3 3 - 13 mmol/L Glucose 127 (H) 70 - 100 mg/dL BUN 15 9 - 20 mg/dL Creatinine 0.70 0.52 - 1.25 mg/dL eGFR >90.0 >60 mL/min EGFR IF NonAfrican Burmese 89.9 >60 mL/min Calcium 9.2 8.4 - 10.4 mg/dL Albumin,Serum 3.8 3.5 - 5.0 g/dL Total Protein 6.9 6.3 - 8.2 g/dL Total Bilirubin 0.4 0.2 - 1.3 mg/dL Alkaline Phosphatase 59 38 - 126 U/L ALT 16 0 - 34 U/L AST 23 15 - 46 U/L Brain Natriuretic Peptide Result Value Ref Range NT Pro-BNP 696 (H) 0 - 125 pg/mL Lactic Acid Result Value Ref Range Lactic Acid 0.8 0.7 - 2.0 mmol/L Troponin x1 Result Value Ref Range Troponin I <0.012 0.000 - 0.034 ng/mL Procalcitonin Result Value Ref Range Procalcitonin 0.13 (H) 0.00 - 0.09 ng/mL Interpretation See Below NA Basic Metabolic Panel w/ Reflex to MG Result Value Ref Range Sodium 135 135 - 145 mmol/L Potassium 4.0 3.5 - 5.1 mmol/L Chloride 106 98 - 107 mmol/L CO2 23 22 - 30 mmol/L Anion Gap 6 3 - 13 mmol/L Glucose 170 (H) 70 - 100 mg/dL BUN 17 9 - 20 mg/dL Creatinine 0.61 0.52 - 1.25 mg/dL eGFR >90.0 >60 mL/min EGFR IF NonAfrican Burmese >90.0 >60 mL/min Calcium 9.2 8.4 - 10.4 mg/dL CBC with Auto Differential Result Value Ref Range WBC 9.8 3.6 - 10.7 10*3/uL RBC 4.56 3.80 - 5.20 10*6/uL Hemoglobin 13.1 11.7 - 16.0 g/dL Hematocrit 39.6 35.0 - 47.0 % MCV 86.7 79.0 - 98.0 fL MCH 28.7 26.0 - 34.0 pg MCHC 33.1 32.0 - 36.0 % RDW 16.3 (H) 11.5 - 14.5 % Platelets 297 140 - 440 10*3/uL MPV 7.6 7.4 - 12.4 fL Granulocytes % 94.7 (H) 40.0 - 80.0 % Lymphocyte % 4.2 (L) 20.0 - 40.0 % Monocytes 1.0 (L) 2.0 - 10.0 % Eosinophils 0.0 (L) 1.0 - 6.0 % Basophils 0.1 0.0 - 2.0 % Absolute Neut # 9.3 (H) 1.8 - 7.0 10*3/uL Absolute Lymph # 0.4 (L) 1.0 - 4.3 10*3/uL Absolute [place] # 0.1 0.0 - 0.8 10*3/uL Absolute Eos # 0.0 0.0 - 0.5 10*3/uL Absolute Baso # 0.0 0.0 - 0.2 10*3/uL Radiographs (Updated From initial H&P): Radiologist's Report Reviewed: XR CHEST PORTABLE Result Date: 06/19/2022 Patient Name: PRISCILA CHA Diagnostic Radiology ACCESSION EXAM DATE/TIME PROCEDURE ORDERING PROVIDER [id number] 06/19/2022 17:22 EDT CR Chest Portable [id number] NehalALEKSANDRADONG PETERSER CPT code 09725 Reason For Exam (CR Chest Portable) Chest Pain Report CHEST CLINICAL INDICATION: Chest pain TECHNIQUE: AP COMPARISON: 01/14/2022 chest x-ray FINDINGS: Lines and tubes: None.Cardiomediastinal: The cardiomediastinal silhouette is within normal limits. Atherosclerotic calcifications are seen at the aortic knob. Lungs: Stable appearance of coarse interstitial lung markings likely representing chronic lung changes. No pleural effusion, focal consolidation or pneumothorax. Osseous structures: No acute osseous abnormality. IMPRESSION: No acute cardiopulmonary process. Stable chronic lung changes. Report Dictated on --- Final --- Dictating Physician: MD DALY PATRICK Signed Date and Time: 06/19/2022 6:07 pm Signed by: MD DALY PAT RICK Transcribed Date and Time: 06/19/2022 6:08 Assessment/MDM: AM the patient was able to stand and ambulate to the restroom. She has mild dyspnea with mobility. Her procalcitonin has been elevated at 0.13. Patient's room air pulse oximetry 90% at rest. Requiring oxygen 2 L nasal cannula. Continuous pulse oximetry. Declined nicotine patch. When ambulating the p atient's pulse oximetry increases to 95%. Patient states that she feels somewhat fatigued. She is afebrile. Lung sounds are clear but diminished in the bases. Pulmonary consultation placed. Patient started on sliding scale insulin coverage for elevated blood glucose of 170 and continued Solu-Medroladministration. Plan: Plan is for the patient to be converted over to DuoNeb treatments every 4 hours she will continue her Vibramycin and Solu-Medrol IV. Pulmonary consultation will occur. Patient has a workers' compensation commissioner appointment scheduled in [facility] with Dr. Sullivan started on sliding scale insulin. Monitor CBC in a.m. patient was converted to IMS services Dr. COOPER Comment: Please note this report has been produced using speech recognition software and may contain errors related to that system including errors in grammar, punctuation, and spelling, as well as words and phrases that may be inappropriate. If there is any questions or concerns please feel free to contact the dictating provider for clarification. documented in this [facility] Work Phone: [phone]) 610-753610-05-2022 NotePhysician Discharge Summary Patient ID: Priscila Davis Nitz [id number] y.o. 1955 Admit date: 06/19/2022 Discharge date and time: 06/22/2022 Admitting Physician: Michael Blancas MD Discharge Physician: Doni Guzman MD Admission Diagnoses: Chest pain [R07.9] COPD exacerbation (HCC) [J44.1] Discharge Diagnoses: Acute exacerbation of COPD Pleuritic chest pain- improved Prominent biliary duct in USG abdomen-normal LFTs-no epigastric or upper abdominal skle-ryxrde-ax with primary care doctor with ultrasound abdomen in in 1 month and CMP in 1 week Neuropathy Admission Condition: fair Discharged Condition: fair Indication for Admission: Chest pain Hospital Course: Admitted on 06/19/2022 with with shortness of breath and chest pain. Treated for COPD exacerbation with steroids and antibiotics. His shortness of breath improved. The patient had pleuritic pleuritic chest pain on the right side. CTA chest negative for PE or aortic dissection. EKG without any acute ST-T changes and troponin stay remained stable. Echocardiogram with normal ejection fraction without any pericardial effusion. Ultrasound upper abdomen was done which showed a prominent biliary duct without any stones or cholelithiasis. LFTs were normal. Amlodipine started for high blood pressure. As the patient improved she would be discharged home and antibiotics and steroids to complete the course. She will need to follow-up with primary care doctor with repeat ultrasound abdomen within 1 month and CMP in 1 week. If persistent dilatation of common bile duct ultrasound upper abdomen further investigation would be needed like MRCP, to be done with primary care doctor. Consults: Pulmonology Significant Diagnostic Studies: USG abdomen: IMPRESSION: Prominent common bile duct etiology uncertain. Consider follow-up which may include MRCP. CT chest: Report Tracheobronchial tree: Debris is present in some of the right lower lobe bronchioles. Pleura: No pleural effusion or pneumothorax. Lungs: There is dependent and bibasilar scarring/atelectasis. Moderate to severe centrilobular and paraseptal emphysema is also seen. Nodules: No nodules are present that require follow up. Lymph nodes: No emerging adenopathy. Included images of the upper abdomen: There is a small hiatal hernia. Visualized musculoskeletal structures: No acute osseous abnormality is demonstrated. There is mild spondylosis. IMPRESSION: 1. Negative for acute pulmonary embolus. 2. The RV/LV ratio is <1. This is considered normal*. 3. Additional chronic findings as above. Outstanding Order Results Date and Time Order Name Status Description 06/20/2022 7:53 PM EKG 12 Lead Preliminary Treatments: anabiotics, steroid Medication List START taking these medications amLODIPine 5 MG tablet Commonly known as: NORVASC Take 1 tablet by mouth daily Start taking on: June 23, 2022 doxycycline hyclate 100 MG capsule Commonly known as: VIBRAMYCIN Take 1 capsule by mouth in the morning and 1 capsule in the evening. Do all this for 5 days. predniSONE 10 MG tablet Commonly known as: DELTASONE Take 4 tablets by mouth daily for 3 days, THEN 3 tablets daily for 3 days, THEN 2 tablets daily for 3 days, THEN 1 tablet daily for 3 days. Start taking on: June 23, 2022 CONTINUE taking these medications albuterol sulfate HFA 108 (90 Base) MCG/ACT inhaler Commonly known as: Ventolin HFA Inhale 2 puffs into the lungs every 4 hours as needed for Wheezing With MDI please. clonazePAM 0.5 MG tablet Commonly known as: KLONOPIN gabapentin 300 MG capsule Commonly known as: NEURONTIN guaiFENesin 600 MG extended release tablet Commonly known as: MUCINEX Take 1 tablet by mouth 2 times daily ibuprofen 600 MG tablet Commonly known as: ADVIL;MOTRIN MULTI-DAY PO nicotine 21 MG/24HR Commonly known as: NICODERM CQ Place 1 patch onto the skin daily Trelegy Ellipta 100-62.5-25 MCG/INH Aepb Generic drug: emkfnzruxrl-ymumfohfh-hddqcc STOP taking these medications cyclobenzaprine 10 MG tablet Commonly known as: FLEXERIL scopolamine transdermal patch Commonly known as: TRANSDERM-SCOP Where to Get Your Medications These medications were sent to [facility] [address] [place] [address] [place] - P [phone] - F [phone] [place] [address] amLODIPine 5 MG tablet doxycycline hyclate 100 MG capsule predniSONE 10 MG tablet Discharge Exam: BP (!) 180/94 Pulse 61 Temp 97.7 ?F (36.5 ?C) (Temporal) Resp 16 Ht 5' 3 (1.6 m) Wt 142 lb 14.4 oz (64.8 kg) SpO2 94% BMI 25.31 kg/m? General: Alert awake and oriented HEENT: Pupils equal and reactive to light, neck supple, no JVD Chest: Bilateral equal air entry no added sound CVS: S1, S2 present, regular, no added sound Abdomen: Soft, nontender, bowel sounds present Extremities: No edema Neuro: No focal (more content not included)...[facility]10-05-2022 Hospital Discharge instructions* Discharge Instructions* Doni Guzman MD - 06/22/2022 10:16 AM EDT Need to follow-up with PCP with CMP in 1 week. Follow-up ultrasound upper abdomen with primary care doctor in 1 month to assess the biliary tree and size of the common bile duct. If persistent dilatation of common bile duct further investigation would would be needed including MRCP. Amlodipine started for high blood pressure. Need to follow-up with primary care doctor in one week to assess blood pressure and any need of adjustment of medication. Suggest monitoring blood pressureregularly at home. * Attachments The following attachments cannot be sent through Care Everywhere. * Smoking Cessation: Health Benefits: General Info (Z[place]an) * COPD: Exacerbation ([place]an) * albuterol inhalation ([place]) * fluticasone - umeclidinium - and vilanterol ([place]an) documented in this [facility] Work Phone: 1(792) 772-550910-05-2022 Hospital course Narrative* Doni Guzman MD - 06/22/2022 10:00 AM EDT Physician Discharge Summary Patient ID: Priscila Powellz [id number] y.o. 1955 Admit date: 06/19/2022 Discharge date and time: 06/22/2022 Admitting Physician: Michael Blancas MD Discharge Physician: Doni Guzman MD Admission Diagnoses: Chest pain [R07.9] COPD exacerbation (HCC) [J44.1] Discharge Diagnoses: Acute exacerbation of COPD Pleuritic chest pain- improved Prominent biliary duct in USG abdomen-normal LFTs-no epigastric or upper abdominal [id number] with primary care doctor with ultrasound abdomen in in 1 month and CMP in 1 week Admission Condition: fair Discharged Condition: fair Indication for Admission: Chest pain Hospital Course: Admitted on 06/19/2022 with with shortness of breath and chest pain. Treated for COPD exacerbation with steroids and antibiotics. His shortness of breath improved. The patient had pleuritic pleuritic chest pain on the right side. CTA chest negative for PE or aortic dissection. EKG without any acute ST-T changes and troponin stay remained stable. Echocardiogram with normal ejection fraction withoutany pericardial effusion. Ultrasound upper abdomen was done which showed a prominent biliary duct without any stones or cholelithiasis. LFTs were normal. Amlodipine started for high blood pressure. As the patient improved she would be discharged home and antibiotics and steroids to complete the course. She will need to follow-up with primary care doctor with repeat ultrasound abdomen within 1 month and CMP in 1 week. If persistent dilatation of common bile duct ultrasound upper abdomen further investigation would be needed like MRCP, to be done with primary care doctor. Consults: Pulmonology Significant Diagnostic Studies: USG abdomen: IMPRESSION: Prominent common bile duct etiology uncertain. Consider follow-up which may include MRCP. CT chest: Report Tracheobronchial tree: Debris is present in some of the right lower lobe bronchioles. Pleura: No pleural effusion or pneumothorax. Lungs: There is dependent and bibasilar scarring/atelectasis. Moderate to severe centrilobular and paraseptal emphysema is also seen. Nodules: No nodules are present that require follow up. Lymph nodes: No emerging adenopathy. Included images of the upper abdomen: There is a small hiatal hernia. Visualized musculoskeletal structures: No acute osseous abnormality is demonstrated. There is mild spondylosis. IMPRESSION: 1. Negative for acute pulmonary embolus. 2. The RV/LV ratio is <1. This is considered normal*. 3. Additional chronic findings as above. Outstanding Order Results Date and Time Order Name Status Description 06/20/2022 7:53 PM EKG 12 Lead Preliminary Treatments: anabiotics, steroid Medication List START taking these medications amLODIPine 5 MG tablet Commonly known as: NORVASC Take 1 tablet by mouth daily Start taking on: June 23, 2022 doxycycline hyclate 100 MG capsule Commonly known as: VIBRAMYCIN Take 1 capsule by mouth in the morning and 1 capsule in the evening. Do all this for 5 days. predniSONE 10 MG tablet Commonly known as: DELTASONE Take 4 tablets by mouth daily for 3 days, THEN 3 tablets daily for 3 days, THEN 2 tablets daily for3 days, THEN 1 tablet daily for 3 days. Start taking on: June 23, 2022 CONTINUE taking these medications albuterol sulfate HFA 108 (90 Base) MCG/ACT inhaler Commonly known as: Ventolin HFA Inhale 2 puffs into the lungs every 4 hours as needed for Wheezing With MDI please. clonazePAM 0.5 MG tablet Commonly known as: KLONOPIN gabapentin 300 MG capsule Commonly known as: NEURONTIN guaiFENesin 600 MG extended release tablet Commonly known as: MUCINEX Take 1 tablet by mouth 2 times daily ibuprofen 600 MG tablet Commonly known as: ADVIL;MOTRIN MULTI-DAY PO nicotine 21 MG/24HR Commonly known as: NICODERM CQ Place 1 patch onto the skin daily Trelegy Ellipta 100-62.5-25 MCG/INH Aepb Generic drug: gxabdipcjmx-umslimvwy-bqvtix STOP taking these medications cyclobenzaprine 10 MG tablet Commonly known as: FLEXERIL scopolamine transdermal patch Commonly known as: TRANSDERM-SCOP Where to Get Your Medications These medications were sent to [address] [place] - P [phone] - F [phone] [place] [id number] amLODIPine 5 MG tablet doxycycline hyclate 100 MG capsule predniSONE 10 MG tablet Discharge Exam: BP (!) 180/94 Pulse 61 Temp 97.7 F (36.5 C) (Temporal) Resp 16 Ht 5' 3 (1.6 m) Wt 142 lb14.4 oz (64.8 kg) SpO2 94% BMI 25.31 kg/m General: Alert awake and oriented HEENT: Pupils equal and reactive to light, neck supple, no JVD Chest: Bilateral equal air entry no added sound CVS: S1, S2 present, regular, no added sound Abdomen: Soft, nontender, bowel sounds present Extremities: No edema Neuro: No focal lateralizing signs Disposition: home Patient Instructions: @MEDDISCHARGE@ Activity: activity as tolerated Diet: regular diet Wound Care: Follow-up with with PCP in 1week. CMP on follow-up with PCP to assess liver function. Need follow-up ultrasound of upper abdomen to assess the biliary tree in 1 month. Amlodipine started for high blood pressure. Need to monitor blood pressure closely at home and follow-up with primary care doctor in 1 week. Signed: Doni Guzman MD 06/22/2022 10:01 AM documented in this [facility] Work Phone: 1(253) 543-641409-01-2022 History of Present illness Narrative* Kianna Murillo LPN - 05/19/2022 10:43 AM EDT Injection prepared per Dr. Zavala's order and provided to . Kianna Murillo LPN * Annabel Zavala MD - 05/19/2022 10:37 AM EDTAssociated Order(s): Large Joint Arthro/Inj: L shoulder joint Post-Procedure Diagnose(s): Primary osteoarthritis of left shoulder Priscila Cha returns today for continued medical management of shoulder pain. Injections have worked well and repeat injections are requested today. Physical exam demonstrates no appreciable change compared to last visit. After discussion of the risk benefits and alternatives to continued treatment with corticosteroid injections we have elected to continue with medical management and forego any surgery. Follow-up willbe as needed for continued medical management as appropriate. Large Joint Arthro/Inj: L shoulder joint 05/19/2022 10:38 AM The procedure site was prepped in the usual sterile fashion. Site: L shoulder joint Medications: 80 mg triamcinolone acetonide 40 mg/mL Anesthetics: 4 mL bupivacaine (PF) 0.5 % (5 mg/mL) Outcome: Tolerated well, no immediate complications Post-injection instructions were reviewed with the patient and the patient voiced understanding of these instructions. [facility] NoteHospitalist Discharge Summary Priscila Cha : 1955 Admit date: 01/13/2022 Discharge date: 01/15/2022 Admitting Physician: Iftikhar Dai MD Primary Care Physician: LEONID DEE MD Visit Status: Admission Code Status: Full Code Discharge Diagnoses: 1. Pneumonia, covered for gram neg/atypical organisms 2. Sepsis ruled out 3. Acute respiratory insufficiency, resolved 4. Mild hyponatremia, improved 5. Tobacco use disorder Diagnosis Date ? Arthritis ? Pneumonia 03/04/2019 Procedures: none Hospital Course: See discharge diagnoses list above and medication adjustments below in med rec.The patient is discharged in improved and stable condition. Consults: None Discharge Instructions: Diet: ADULT DIET; Regular Activity: as tolerated Recommended Outpatient Tests: Disposition: Patient discharged in stable condition to Home. Greater than 30 minutes spent discharging the patient and coming up with patient discharge plan. Vitals: BP 121/74 Pulse 86 Temp 98 ?F (36.7 ?C) (Temporal) Resp 18 Wt 140 lb (63.5 kg) SpO2 95% BMI 24.03 kg/m? Pulse Ox: SpO2 Av.4 % Min: 89 % Max: 96 % Supplemental O2: General appearance: No apparent distress HEENT: Normal cephalic, atraumatic without obvious deformity. Pupils equal, round, and reactive to light. Extra ocular muscles intact. Conjunctivae/corneas clear. Neck: Supple, with full range of motion. No jugular venous distention. Respiratory: Normal respiratory effort. Few rhonchi Cardiovascular: Regular rate and rhythm with normal S1/S2 Abdomen: Soft, non-tender, non-distended with normal bowel sounds. Musculoskeletal: No clubbing, cyanosis or edema bilaterally. Skin: Skin color, texture, turgor normal. No rashes or lesions. Neurologic: Neurovascularly intact without any focal sensory/motor deficits. Cranial nerves: II-XII intact, grossly non-focal. Discharge Medications: Medication List START taking these medications cefdinir 300 MG capsule Commonly known as: OMNICEF Take 1 capsule by mouth 2 times daily for 4 days Start taking on: January 16, 2022 guaiFENesin 600 MG extended release tablet Commonly known as: MUCINEX Take 1 tablet by mouth 2 times daily nicotine 21 MG/24HR Commonly known as: NICODERM CQ Place 1 patch onto the skin daily Start taking on: January 16, 2022 CONTINUE taking these medications albuterol sulfate HFA 108 (90 Base) MCG/ACT inhaler Commonly known as: Ventolin HFA Inhale 2 puffs into the lungs every 4 hours as needed for Wheezing With MDI please. clonazePAM 0.5 MG tablet Commonly known as: KLONOPIN cyclobenzaprine 10 MG tablet Commonly known as: FLEXERIL Take 1 tablet by mouth 3 times daily as needed for Muscle spasms gabapentin 300 MG capsule Commonly known as: NEURONTIN MULTI-DAY PO scopolamine transdermal patch Commonly known as: TRANSDERM-SCOP Place 1 patch onto the skin every 72 hours Where to Get Your Medications These medications were sent to [facility] - [place], [place] - [address] - P [phone] - F [phone] [place], [place] [id number] ? cefdinir 300 MG capsule ? guaiFENesin 600 MG extended release tablet ? nicotine 21 MG/24HR Recommended Follow-up: Leonid Dee MD [facility], [address] [place] [id number] Schedule an appointment as soon as possible for a visit Readmission Risk Risk of Unplanned Readmission: 12 Complexity of Follow up: [] Moderate Complexity: follow up within 7-14 calendar days (84681) [x] Severe Complexity: follow up within 7 calendar days (05946) Follow up Testing, Pending results or Referrals at Transitional Care Visit: [x] yes [] no Instructions to MA: Please call patient on day after discharge (must document patient contacted within 2 business days of discharge). Follow up questions for MA: 1. Did you get medications filled and taking them as instructed from discharge? 2. Are you following your discharge instructions from your hospital stay? 3. Please confirm patient is scheduled for a follow up appointment within the above time frame. Signed: Sandee Luu APRN - [facility] Division of Hospitalist Medicine Inpatient Medical Services/[facility] [place]/15/2022, 4:51 [facility]01-30-2022 NoteHospitalist Discharge Summary Priscila Cha : 1955 Admit date: 10/15/2021 Discharge date: 10/17/2021 Admitting Physician: Iftikhar Dai MD Primary Care Physician: LEONID DEE MD Visit Status: Admission Code Status: Full Code Discharge Diagnoses: Benign positional Vertigo Acute constipation Anxiety disorder Vertigo and constipation causing dehydration - improved with IVF Acute renal insufficiency improved with IVF Procedures: None Hospital Course: Patient is a 65 year old female who was admitted for dizziness/vertigo and also constipation, she had no bowel movement for 10 days, not on opioids at home, treated with laxatives, enema, advised high fiber diet, MRI brain was unremarkable, given scopalamine and meclizine for symptomatic control. Consults: None Discharge Instructions: Diet: ADULT DIET; Regular Activity: as tolerated Recommended Outpatient Tests: Disposition: Patient discharged in stable condition to Home. Greater than 30 minutes spent discharging the patient and coming up with patient discharge plan. Vitals: BP (!) 150/96 Pulse 94 Temp 98.3 ?F (36.8 ?C) (Temporal) Resp 17 Ht 5' 4 (1.626 m) Wt 135 lb (61.2 kg) SpO2 94% BMI 23.17 kg/m? Pulse Ox: SpO2 Av.5 % Min: 93 % Max: 94 % Supplemental O2: General appearance: No apparent distress, appears stated age and cooperative with exam Respiratory: Normal respiratory effort. Clear to auscultation, bilaterally without Rales/Wheezes/Rhonchi. Cardiovascular: Regular rate and rhythm with normal S1/S2 without murmurs, rubs or gallops. Abdomen: Soft, non-tender, non-distended with normal bowel sounds. No rebound or guarding. Musculoskeletal: No clubbing, cyanosis or edema bilaterally. Full range of motion without deformity. Skin: Skin color, texture, turgor normal. No rashes or lesions. Discharge Medications: Medication List START taking these medications docusate sodium 100 MG capsule Commonly known as: COLACE Take 1 capsule by mouth 2 times daily for 15 days meclizine 12.5 MG tablet Commonly known as: ANTIVERT Take 1 tablet by mouth 3 times daily as needed for Dizziness or Nausea polyethylene glycol 17 GM/SCOOP powder Commonly known as: GLYCOLAX Take 17 g by mouth daily for 7 days scopolamine transdermal patch Commonly known as: TRANSDERM-SCOP Place 1 patch onto the skin every 72 hours Start taking on: October 18, 2021 CONTINUE taking these medications albuterol sulfate HFA 108 (90 Base) MCG/ACT inhaler Commonly known as: Ventolin HFA Inhale 2 puffs into the lungs every 4 hours as needed for Wheezing With MDI please. clonazePAM 0.5 MG tablet Commonly known as: KLONOPIN cyclobenzaprine 10 MG tablet Commonly known as: FLEXERIL Take 1 tablet by mouth 3 times daily as needed for Muscle spasms gabapentin 300 MG capsule Commonly known as: NEURONTIN MULTI-DAY PO STOP taking these medications ibuprofen 400 MG tablet Commonly known as: ADVIL;MOTRIN Where to Get Your Medications These medications were sent to [facility] - [place], [place] - [address] - P [phone] - F [phone] [place] [id number] ? docusate sodium 100 MG capsule ? meclizine 12.5 MG tablet ? polyethylene glycol 17 GM/SCOOP powder ? scopolamine transdermal patch Recommended Follow-up: No follow-up provider specified. Complexity of Follow up: [] Moderate Complexity: follow up within 7-14 calendar days (76913) [x] Severe Complexity: follow up within 7 calendar days (59203) Follow up Testing, Pending results or Referrals at Transitional Care Visit: [x] yes [] No GENERAL ZONES GREEN ZONE: All Clear- Your Symptoms Are Under Control No recurrence of symptoms that led to hospitalization Able to do usual activities No fever No chest pain No shortness of breath This Means You Should: Continue taking your medications as prescribed Continue activity as tolerated Keep all doctor appointments YELLOW ZONE: Caution Recurrence of symptoms that led to hospitalization Fever of 100 degrees or higher Increased fatigue or restlessness Intolerant side-effects of medications Uneasy feeling or that something is wrong This Means You Should: Call your doctor for further instructions Either your PCP or specialist RED ZONE: Medical Alert Severe or unrelieved shortness of breath at rest Unrelieved chest pain Confusion or you can't think clearly This Means You Should Call 911 Immediately Instructions to MA: Please call patient on day after discharge (must document patient contacted within 2 business days of discharge). Follow up questions for MA: 1. Did you get medications filled and taking them as instructed from discharge? 2. Are you following your discharge instructions from your hospital stay? 3. Please confirm patient is scheduled for a follow up appointment within the above time frame. A total of (more content not included)...[facility]01-30-2022 History of Present illness Narrative* Lilo Downs DTR - 10/17/2021 7:43 AM EST Nutrition rescreen complete. Pt assigned a level one for nutrition care. * Marissa Holt, PT - 10/16/2021 12:53 PM EST Physical Therapy Facility/Department: [facility] Initial Assessment NAME: Priscila Cha : 1955 Date of Service: 10/16/2021 Discharge Recommendations: Home with assist PRN,Home with Home health PT PT Equipment Recommendations Other: No needs anticipated at time of evaluation. Assessment Body structures, Functions, Activity limitations: Decreased functional mobility ;Decreased strength;Decreased safe awareness;Decreased endurance;Decreased balance;Increased pain Assessment: Pt presents with decreased functional mobility, decreased strength, decreased safety awareness, decreased endurance, impaired balance and abdominal pain. Pt has decreased standing balance, questionable safety awareness and pain requiring 1 perosn for safety with mobility at this time placing her at an increased risk of falling. Pt could benefit from skilled PT in order to address her decreased functional mobility, strength, balance and safety. Prognosis: Good Decision Making: Medium Complexity History: Pt admitted with N/V, constipation and dizziness. CT negative. MRI pending. Exam: AM-PAC Clinical Presentation: Pt admitted with N/V, constipation and dizziness. CT negative. MRI pending. Pt has medical history as indicated below that contributes to her clinical presentation. At baselinepatient is functionally independent without a device. Currently patient is CGA for OOB mobility andis anticipated to progress with acute therapies in order to return home with assist and [facility] PT. PT Education: Goals;PT Role;Plan of Care;Transfer Training;General Safety;Gait Training;Functional Mobility Training;Injury Prevention Barriers to Learning: Pt has no noted barriers to learning. REQUIRES PT FOLLOW UP: Yes Activity Tolerance Activity Tolerance: Patient limited by fatigue;Patient limited by pain;Patient limited by endurance Patient Diagnosis(es): The primary encounter diagnosis was Non-intractable vomiting with nausea, unspecified vomiting type. Diagnoses of Constipation, unspecified constipation type, Generalized abdominal pain, and Dizziness were also pertinent to this visit. has a past medical history of Arthritis and Pneumonia. has a past surgical history that includes Mandible surgery (Bilateral, 1982); back surgery (N/A, 2017); and Tonsillectomy. Restrictions Restrictions/Precautions Restrictions/Precautions: Fall Risk,General Precautions Required Braces or Orthoses?: No Vision/Hearing Vision: Within Functional Limits Hearing: Within functional limits Subjective General Chart Reviewed: Yes Patient assessed for rehabilitation services?: Yes Family / Caregiver Present: No General Comment Comments: Per RN patient okay for therapy. Co-eval with OT. Subjective Subjective: Pt pleasant and agreeable to therapy. Pain Screening Patient Currently in Pain: Yes (pt reports abdominal pain, did not rate numerically, however statesit feels better than this morning) Vital Signs Patient Currently in Pain: Yes (pt reports abdominal pain, did not rate numerically, however statesit feels better than this morning) Orientation Orientation Overall Orientation Status: Within Functional Limits Social/Functional History Social/Functional History Lives With: Spouse Type of Home: House Home Layout: Two level,Bed/Bath upstairs Home Access: Stairs to enter without rails Entrance Stairs - Number of Steps: 3 Bathroom Shower/Tub: Walk-in shower Bathroom Toilet: Standard Bathroom Accessibility: Accessible ADL Assistance: Independent Homemaking Assistance: Independent Homemaking Responsibilities: Yes Ambulation Assistance: Independent (no device) Transfer Assistance: Independent Active Commercial Roofer: Yes Cognition Cognition Arousal/Alertness: Appropriate responses to stimuli Following Commands: Follows all commands without difficulty Attention Span: Attends with cues to redirect Memory: Appears intact Safety Judgement: Decreased awareness of need for assistance;Decreased awareness of need for safety Problem Solving: Assistance required to identify errors made Insights: Decreased awareness of deficits Initiation: Does not require cues Sequencing: Does not require cues Objective Observation/Palpation Posture: Fair Observation: room air, IV intact AROM RLE (degrees) RLE AROM: WFL AROM LLE (degrees) LLE AROM : WFL Strength RLE Comment: demonstrates >3/5 with mobility Strength LLE Comment: demonstrates >3/5 with mobility Sensation Overall Sensation Status: WFL (no c/o numbness or tingling) Bed mobility Supine to Sit: Modified independent Sit to Supine: Modified independent Scooting: Modified independent Comment: HOB flat. Inconsistent reports of dizziness with positional changes. Transfers Sit to Stand: Supervision (to no device from EOB and commode) Stand to sit: Supervision Comment: No LOB on initial stance. Impulsive tendencies with mobility requiring superivsion for safety and line management. Pt with inconsistent reports of dizziness with mobility. Ambulation Ambulation?: Yes Ambulation 1 Surface: level tile Device: No Device Assistance: Contact guard assistance Quality of Gait: Pt demonstrates reciprocal stepping pattern, B foot clearance, lateral path deviations often but not true LOB, poor safety awareness Distance: 25 ft x 2 Comments: Impulsive tendencies with mobility and frequent changes in direction while communicating with therapist requiring CGA for safety and line management. Pt with inconsistent reports of dizziness with mobility. Stairs/Curb Stairs?: No Balance Posture: Fair Sitting - Static: Good Sitting - Dynamic: Fair;+ Standing - Static: Fair;+ Standing - Dynamic: Fair Plan Plan Times per week: 8 visits Current Treatment Recommendations: Strengthening,Balance Training,Functional Mobility Training,Transfer Training,Endurance Training,Gait Training,Stair training,Neuromuscular Re-education,Safety Education & Training,Patient/Caregiver Education & Training,Equipment Evaluation, Education, & procurement,Pain Management Plan Comment: Goals and/or treatment plan were established in collaboration with patient. Safety Devices Type of devices: All fall risk precautions in place,Call light within reach,Gait belt,Patient at risk for falls,Left in bed,Nurse notified AM-PAC Score AM-[facility] Inpatient Mobility Raw Score : 21 (10/16/21 124) AM-PAC Inpatient T-Scale Score : 50.25 (10/16/21 124) Mobility Inpatient CMS 0-100% Score: 28.97 (10/16/21 124) Mobility Inpatient CMS G-Code Modifier : CJ (10/16/211245) AM-PAC Mobility Inpatient How much difficulty turning over in bed?: None How much difficulty sitting down on / standing up from a chair with arms?: None How much difficulty moving from lying on back to sitting on side of bed?: None How much help from another person moving to and from a bed to a chair?: A Little How much help from another person needed to walk in hospital room?: A Little How much help from another person for climbing 3-5 steps with a railing?: A Little [facility] Inpatient Mobility Raw Score : 21 AM-[facility] Inpatient T-Scale Score : 50.25 Mobility Inpatient CMS 0-100% Score: 28.97 Mobility Inpatient CMS G-Code Modifier : CJ Goals Short term goals Time Frame for Short term goals: 8 visits Short term goal 1: Pt will complete bed mobility with mod I in order to improve independence with mobility. Short term goal 2: Pt will complete functional transfers independently in order to improve safety and prepare for ambulation. Short term goal 3: Pt will ambulate 100 ft independently in order to improve safety with gait. Short term goal 4: Pt will complete 12 steps with hand rail and mod I in order to negotiate her home. Short term goal 5: Pt will complete 1-2 sets / 10 reps LE exercises in order to improve strength and activity tolerance for mobility. Patient Goals Patient goals : Pt states she wants to get home Therapy Time Individual Concurrent Group Co-treatment Time In 1155 (co-eval with OT) Time Out 1225 Minutes 30 Marissa Holt, PT * Neha Healy OT - 10/16/2021 12:27 PM EST Occupational Therapy Occupational Therapy Initial Assessment Date: 10/16/2021 Patient Name: Priscila Cha : 1955 Date of Service: 10/16/2021 Discharge Recommendations: Home with Home health OT,Home with assist PRN OT Equipment Recommendations Equipment Needed: No Assessment Performance deficits / Impairments: Decreased functional mobility ;Decreased safe awareness;Decreased balance;Decreased ADL status;Decreased posture;Decreased cognition;Decreased ROM;Decreased endurance;Decreased high- level IADLs Assessment: Pt previously independent with ADLs and functional mobility. Pt currently requires supervision for all ADLs including toileting, and CGA for functional mobility. Pt would benefit from skilled occupational therapy services to address deficits and maximize independnece and safety with ADLs, IADLs, and functional mobility. Pt is at increased risk for falls. Pt is safe to return home withassist from family and [facility]. Prognosis: Good Decision Making: Medium Complexity History: Pt admitting 10/15 with abdominal pain and dizziness. Pt receiving enema for constipation. Exam: AM-PAC Assistance / Modification: supervision-CGA OT Education: OT Role;Plan of Care Barriers to Learning: cognition REQUIRES OT FOLLOW UP: Yes Activity Tolerance Activity Tolerance: Patient limited by fatigue;Patient limited by pain;Treatment limited secondary to decreased cognition Safety Devices Safety Devices in place: Yes Type of devices: All fall risk precautions in place;Call light within reach;Patient at risk for falls;Left in bed;Nurse notified Patient Diagnosis(es): The primary encounter diagnosis was Non-intractable vomiting with nausea, unspecified vomiting type. Diagnoses of Constipation, unspecified constipation type, Generalized abdominal pain, and Dizziness were also pertinent to this visit. has a past medical history of Arthritis and Pneumonia. has a past surgical history that includes Mandible surgery (Bilateral, 1982); back surgery (N/A, 2016); and Tonsillectomy. Restrictions Restrictions/Precautions Restrictions/Precautions: Fall Risk,General Precautions Required Braces or Orthoses?: No Subjective General Chart Reviewed: Yes Patient assessed for rehabilitation services?: Yes Family / Caregiver Present: No Subjective Subjective: Pt supine in bed at arrival. Agreeable to OT eval. General Comment Comments: Per RN, pt ok to see. Patient Currently in Pain: Yes (in abdomen, did not rate however stating better than it was this morning) Pain Assessment Pain Location: Abdomen Vital Signs Patient Currently in Pain: Yes (in abdomen, did not rate however stating better than it was this morning) Social/Functional History Social/Functional History Lives With: Spouse Type of Home: House Home Layout: Two level,Bed/Bath upstairs Home Access: Stairs to enter without rails Entrance Stairs - Number of Steps: 3 Bathroom Shower/Tub: Walk-in shower Bathroom Toilet: Standard Bathroom Accessibility: Accessible ADL Assistance: Independent Homemaking Assistance: Independent Homemaking Responsibilities: Yes Ambulation Assistance: Independent Transfer Assistance: Independent Active Commercial Roofer: Yes Objective Vision: Within Functional Limits Hearing: Within functional limits Orientation Overall Orientation Status: Within Functional Limits Observation/Palpation Posture: Fair Observation: room air, IV in tact Balance Sitting Balance: Modified independent Standing Balance: Supervision Standing Balance Time: ~30 seconds Activity: washing hands Comment: Pt required supervision for safety d/t decreased balance and safety awareness. Functional Mobility Functional - Mobility Device: No device Activity: To/from bathroom Assist Level: Contact guard assistance Functional Mobility Comments: CGA for balance and safety. Pt observed spinning multiple times and turning feet inwards and outwards during mobility. Toilet Transfers Toilet - Technique: Ambulating Equipment Used: Standard toilet Toilet Transfer: Contact guard assistance Toilet Transfers Comments: CGA and verbal cue provided d/t pt malaligning to toilet. ADL Feeding: Modified independent Grooming: Modified independent UE Bathing: Supervision LE Bathing: Supervision UE Dressing: Supervision LE Dressing: Supervision Toileting: Supervision Additional Comments: Pt previously independent with ADLs. Pt is currently mod I with grooming and eating and supervison with UB ADLs, LB ADLs, and toileting at toilet level and [facility]. Pt requires supervision d/t poor balance and decreased safety awareness. Pt observed donning underwear sitting EOB/standing. Bed mobility Supine to Sit: Modified independent Sit to Supine: Modified independent Scooting: Modified independent Comment: HOB flat. Pt reporting dizziness with positional changes. Transfers Sit to stand: Supervision Stand to sit: Supervision Transfer Comments: supervision for safety Cognition Overall Cognitive Status: Exceptions Arousal/Alertness: Appropriate responses to stimuli Following Commands: Follows all commands without difficulty Attention Span: Attends with cues to redirect Memory: Appears intact Safety Judgement: Decreased awareness of need for assistance;Decreased awareness of need for safety Problem Solving: Assistance required to identify errors made Insights: Decreased awareness of deficits Initiation: Does not require cues Sequencing: Does not require cues Sensation Overall Sensation Status: WFL (no c/o numbness or tingling) LUE AROM (degrees) LUE AROM : WFL RUE AROM (degrees) RUE AROM : WFL LUE Strength Gross LUE Strength: WFL RUE Strength Gross RUE Strength: WFL Plan Plan Times per week: 4 visits Current Treatment Recommendations: Positioning,Safety Education & Training,Balance Training,Patient/Caregiver Education & Training,Self-Care / ADL,Cognitive/Perceptual Training,Functional Mobility Training,Equipment Evaluation, Education, & procurement,Home Management Training,EnduranceTraining Plan Comment: POC and goals created in collaboration AM-PAC Score [facility] Inpatient Daily Activity Raw Score: 20 (10/16/21 1224) [facility] Inpatient ADL T-Scale Score : 42.03 (10/16/21 1224) ADL Inpatient CMS 0-100% Score: 38.32 (10/16/21 1224) ADL Inpatient CMS G-Code Modifier : CJ (10/16/21 122) Goals Short term goals Time Frame for Short term goals: 4 visits Short term goal 1: Pt will complete full body ADLs mod I. Short term goal 2: Pt will complete toileting, including transfer mod I. Short term goal 3: Pt will compelte functional mobility and transfers mod I. Short term goal 4: Pt will participate in dynamic standing balance activity >3 minutes as precursor to ADLS. Patient Goals Patient goals : no goal stated POC supervision transferred to rehab service department occupational therapist. Therapy Time Individual Concurrent Group Co-treatment Time In 1155 Time Out 1215 (OT/PT co eval) Minutes 20 Neha Healy OT * April Encinas MD - 10/16/2021 12:12 PM EST Images from the original note were not included. Throughout the encounter I wore and N95 mask and face shield Hospitalist Progress Note 10/16/2021 12:12 PM [id number]: Please page me @ [phone] for patient care issues. [id number]: Please page [facility] night Hospitalist for any issues. Subjective: Admit Date: 10/15/2021 PCP: LEONID DEE MD Having abdominal pain with no bowel movement, dizziness/vertigo improved. CT abdomen showed fecal residue. MRI brain pending, patient refusing. Denies chest pain, cough, sob, nausea, vomiting, diarrhea, fevers, or chills. ADULT DIET; Regular Patient Vitals for the past 96 hrs (Last 3 readings): Weight 10/15/21 1010 135 lb (61.2 kg) Medications: sodium chloride sodium chloride 100 mL/hr at 10/16/21 0128 sodium chloride flush 3 mL IntraVENous Q8H scopolamine 1 patch TransDERmal Q72H gabapentin 300 mg Oral BID sodium chloride flush 5-40 mL IntraVENous 2 times per day enoxaparin 40 mg SubCUTAneous Daily LABS: CBC: Recent Labs 10/15/21 1043 10/16/21 0521 WBC 16.1* 14.3* RBC 4.56 3.88 HGB 13.0 11.2* HCT 39.9 33.6* MCV 87.6 86.6 RDW 14.9* 14.7* PLT 374 301 BMP: Recent Labs 10/15/21 1043 10/16/21 0521 NA 135 134* K 3.7 4.0 CL 101 106 CO2 31* 26 BUN 24* 14 CREATININE 1.08 0.77 GLUCOSE 127* 106* CALCIUM 9.4 8.1* ANIONGAP 4 2* LIVER PROFILE: Recent Labs 10/15/21 1043 10/16/21 0521 AST 28 29 ALT 15 11 BILITOT 0.7 0.6 ALKPHOS 77 63 LABALBU 3.8 3.0* PROT 7.2 6.1* PT/INR: No results for input(s): PROTIME, INR in the last 72 hours. CARDIAC ENZYMES: Recent Labs 10/15/21 1043 TROPONINI <0.012 Procalcitonin: Lab Results Component Value Date PROCAL <0.10 03/03/2019 Objective: Vitals: BP (!) 154/80 Pulse 94 Temp 97.3 F (36.3 C) (Temporal) Resp 17 Ht 5' 4 (1.626 m) Wt 135 lb (61.2 kg) SpO2 92% BMI 23.17 kg/m Pulse Ox: SpO2 Av.5 % Min: 85 % Max: 96 % Supplemental O2: General appearance: She appears sickly, No apparent distress, appears stated age and cooperative with exam HEENT: Normal cephalic, atraumatic without obvious deformity. Pupils equal, round, and reactive to light. Extra ocular muscles intact. Conjunctivae/corneas clear. Neck: Supple, with full range of motion. No jugular venous distention. Trachea midline. No lymphadenopathy. Respiratory: Normal respiratory effort. Clear to auscultation, bilaterally without Rales/Wheezes/Rhonchi. Cardiovascular: Regular rate and rhythm with normal S1/S2 without murmurs, rubs or gallops. Abdomen: Soft, mild diffuse tenderness Musculoskeletal: No edema bilaterally. Full range of motion without deformity. Skin: Skin color, texture, turgor normal. No rashes or lesions. Neurologic: Neurovascularly intact without any focal sensory/motor deficits. Cranial nerves: II-XIIintact, grossly non-focal. Assessment Acute constipation 10 day history ?because, admits to lack of proper fluid intake, not on opioids at home Acute dizziness/vertigo improved - probably due to volume depletion Past Medical History: Diagnosis Date Arthritis Pneumonia 03/04/2019 Plan :laxative/enema, IV fluids Pending MRI of brain to home with home health All test and lab results reviewed Consult notes reviewed Am labs, replace lytes prn PT/OT -DVT prophylaxis: [x] Lovenox [] Heparin [] SCDs [x] Encourage ambulation [] Already on Anticoagulation Advance Directive: Full Code Advance care planning has been discussed, total time spent is greater than 30 mins Discharge planning: SUSANA ENCINAS MD, , MD Division of Hospitalist Medicine Inpatient Medical Services This report was created using the [employer] voice- activated system. Despiteprompt dictation and careful editorial review, there may be subtle contextual errors in this report, due to misrecognition of the spoken word. [facility] Diagnosis Cervical radiculopathy- Primary Brachial neuritis or radiculitis nos documented in this encounter [facility] Work Phone: Evaluation note* Diagnosis Non-intractable vomiting with nausea, unspecified vomiting type- Primary Constipation, unspecified constipation type Generalized abdominal pain Abdominal pain, generalized Dizziness Dizziness and giddiness documented in this encounter [facility] Work Phone: Evaluation note* Diagnosis Primary osteoarthritis of left shoulder- Primary Primary localized osteoarthrosis, shoulder region documented in this encounter [facility] note* Diagnosis COPD exacerbation (HCC)- Primary Obstructive chronic bronchitis with exacerbation Chest wall pain Painful respiration Chest pain Chest pain, unspecified documented in this encounter [facility] Work Phone: Evaluation note* Diagnosis Tear of left rotator cuff, unspecified tear extent, unspecified whether traumatic- Primary documented in this encounter [facility] note* Diagnosis Pain in right hip- Primary Pain in right hip documented in this encounter [facility] note* Diagnosis Tear of left rotator cuff, unspecified tear extent, unspecified whether traumatic- Primary documented in this encounter [facility] note* Diagnosis Primary osteoarthritis of right hip- Primary Primary localized osteoarthrosis, pelvic region and thigh documented in this encounter [facility] note* Diagnosis Sigmoid diverticulitis- Primary Diverticulitis of colon (without mention of hemorrhage) Intra-abdominal abscess (CMS/HCC) (HCC) Peritoneal abscess documented in this encounter [facility] note* Diagnosis Diverticulitis- Primary Diverticulitis of colon (without mention of hemorrhage) Generalized abdominal pain Abdominal pain, generalized Diverticulitis Diverticulitis of colon (without mention of hemorrhage) Primary hypertension Unspecified essential hypertension Moderate malnutrition (CMS/HCC) (HCC) documented in this encounter [facility] note* Diagnosis Sigmoid diverticulitis- Primary Diverticulitis of colon (without mention of hemorrhage) documented in this encounter [facility] note* Diagnosis Sigmoid diverticulitis Diverticulitis of colon (without mention of hemorrhage) Intra-abdominal abscess (CMS/HCC) (HCC) Peritoneal abscess documented in this encounter [facility] note* Diagnosis Intra-abdominal abscess (CMS/HCC) (HCC)- Primary Peritoneal abscess Sigmoid diverticulitis Diverticulitis of colon (without mention of hemorrhage) Antibiotic drug intolerance documented in this encounter [facility] note* Diagnosis LLQ abdominal pain- Primary Abdominal pain, left lower quadrant documented in this encounter [facility] note* Diagnosis S/P total right hip arthroplasty- Primary documented in this encounter [facility] note* Diagnosis Osteoarthritis of right hip, unspecified osteoarthritis type S/P total right hip arthroplasty documented in this encounter [facility] note* Diagnosis Abdominal pain, generalized- Primary Abdominal pain, generalized Diverticulitis of colon Diverticulitis of colon (without mention of hemorrhage) Intestinal obstruction, unspecified cause, unspecified whether partial or complete (HCC) Postoperative pain Other acute postoperative pain S/P partial colectomy Other postprocedural status Severe malnutrition (CMS/HCC) (HCC) Nutritional marasmus documented in this encounter [facility] note* Diagnosis Postop check- Primary Follow-up examination, following unspecified surgery S/P colon resection Other postprocedural status documented in this encounter [facility] note* Diagnosis Postoperative examination- Primary Follow-up examination, following unspecified surgery Postoperative pain Other acute postoperative pain S/P partial colectomy Other postprocedural status documented in this encounter [facility] note* Diagnosis S/P total right hip arthroplasty- Primary documented in this encounter [facility] note* Diagnosis Postoperative examination- Primary Follow-up examination, following unspecified surgery Acquired absence of other specified parts of digestive tract documented in this encounter [facility] note* Diagnosis Colostomy in place (CMS/HCC) (HCC)- Primary Colostomy status Colostomy in place (CMS/HCC) (HCC) Colostomy status documented in this encounter [facility] note* Diagnosis Colostomy in place (CMS/HCC) (HCC)- Primary Colostomy status Colostomy in place (CMS/HCC) (HCC)- Primary Colostomy status Colostomy in place (CMS/HCC) (HCC) Colostomy status documented in this encounter [facility] note* Diagnosis S/P total right hip arthroplasty- Primary documented in this encounter [facility] note* Diagnosis Colostomy in place (CMS/HCC) (HCC)- Primary Colostomy status Colostomy in place (CMS/HCC) (HCC) Colostomy status Post-op pain Other acute postoperative pain Localized edema Edema documented in this encounter [facility] note* Diagnosis Postoperative pain- Primary Other acute postoperative pain documented in this encounter [facility] note* Diagnosis Post-operative state- Primary Other postprocedural status documented in this encounter [facility] note* Diagnosis Vaginal discharge- Primary Leukorrhea, not specified as infective Dysuria documented in this encounter [facility] note* Diagnosis Urinary hesitancy- Primary documented in this encounter [facility] note* Diagnosis Post-operative state- Primary Other postprocedural status documented in this encounter [facility] note* Diagnosis Preop examination- Primary Preoperative examination, unspecified Chronic obstructive pulmonary disease, unspecified COPD type (HCC) ANJANA (obstructive sleep apnea) Obstructive sleep apnea (adult) (pediatric) Primary osteoarthritis of right hip [M16.11] Primary localized osteoarthrosis, pelvic region and thigh Sacral spondylosis- Primary Lumbosacral spondylosis without myelopathy Spondylolisthesis of lumbar region Acquired spondylolisthesis documented in this encounter [facility] note* Diagnosis Preop examination- Primary Preoperative examination, unspecified Chronic obstructive pulmonary disease, unspecified COPD type (HCC) ANJANA (obstructive sleep apnea) Obstructive sleep apnea (adult) (pediatric) Primary osteoarthritis of right hip [M16.11] Primary localized osteoarthrosis, pelvic region and thigh Sacral spondylosis Lumbosacral spondylosis without myelopathy Spondylolisthesis of lumbar region Acquired spondylolisthesis documented in this encounter [facility] note* Diagnosis Preop examination- Primary Preoperative examination, unspecified Chronic obstructive pulmonary disease, unspecified COPD type (HCC) ANJANA (obstructive sleep apnea) Obstructive sleep apnea (adult) (pediatric) Primary osteoarthritis of right hip [M16.11] Primary localized osteoarthrosis, pelvic region and thigh Tear of left rotator cuff, unspecified tear extent, unspecified whether traumatic- Primary documented in this encounter [facility] Discharge instructions* Attachments The following attachments cannot be sent through Care Everywhere. * Cervical Radiculopathy ([place]) documented in this [facility] Work Phone: Hospital Discharge instructions* Attachments The following attachments cannot be sent through Care Everywhere. * Colonoscopy Discharge Instructions ([place]an) * Moderate Sedation in Adults Discharge Instructions ([place]) [facility] Visit Details Visit Type -PT SOC Discipline -Physical Therapy Problems Problem Description Start Date Status Goals Interve ntions Medication Education Disciplines: Skilled Services 10/18/2023 Active 1 goal linked to scheduled/document ed intervention 1 goal intervention scheduled/document ed in this visit Mental Health Disciplines: Skilled Services 10/18/2023 Active 1 goal linked to scheduled/document ed intervention 3 goal interventions scheduled/document ed in this visit Sepsis Disciplines: Skilled Services 10/18/2023 Active 1 goal linked to scheduled/document ed intervention 1 goal intervention scheduled/document ed in this visit Risk for skin breakdown Disciplines: Skilled Services 10/18/2023 Active 1 goal linked to scheduled/document ed intervention 1 goal intervention scheduled/document ed in this visit Physician Specific Parameters Disciplines: Skilled Services 10/18/2023 Active 1 goal linked to scheduled/document ed intervention 1 goal intervention scheduled/document ed in this visit Risk for Falls Disciplines: Skilled Services 10/18/2023 Active 1 goal linked to scheduled/document ed intervention 1 goal intervention scheduled/document ed in this visit Pain Disciplines: Skilled Services 10/18/2023 Active 1 goal linked to scheduled/document ed intervention 1 goal intervention scheduled/document ed in this visit Nutrition/Hydrati on Disciplines: Skilled Services 10/18/2023 Active 1 goal linked to scheduled/document ed intervention 1 goal intervention scheduled/document ed in this visit High Risk Medications Disciplines: Skilled Services 10/18/2023 Active 1 goal linked to scheduled/document ed intervention 2 goal interventions scheduled/document ed in this visit Discharge Disciplines: Skilled Services 10/18/2023 Active 1 goal linked to scheduled/document ed intervention 2 goal interventions scheduled/document ed in this visit Advance Directives Disciplines: Skilled Services 10/18/2023 Active 1 goal linked to scheduled/document ed intervention 1 goal intervention scheduled/document ed in this visit PT Impaired muscle performance and/or ROM Disciplines: PT 10/18/2023 Active 1 goal linked to scheduled/document ed intervention 1 goal intervention scheduled/document ed in this visit PT Impaired mobility Disciplines: PT 10/18/2023 Active 2 goals linked to scheduled/document ed interventions 2 goal interventions scheduled/document ed in this visit PT Impaired gait Disciplines: PT 10/18/2023 Active 2 goals linked to scheduled/document ed interventions 2 goal interventions scheduled/document ed in this visit PT Impaired balance Disciplines: PT 10/18/2023 Active 1 goal linked to scheduled/document ed intervention 1 goal intervention scheduled/document ed in this visit PT Orthopedic Condition Disciplines: PT 10/18/2023 Active 1 goal linked to scheduled/document ed intervention 2 goal interventions scheduled/document ed in this visit PT Learning Assessment Disciplines: PT 10/18/2023 Active 1 goal linked to scheduled/document ed intervention 1 goal intervention scheduled/document ed in this visit PT Pulmonary Disease Disciplines: PT 10/18/2023 Active 1 goal linked to scheduled/document ed intervention 1 goal intervention scheduled/document ed in this visit Goals Goal Associated Problem Outcome Goal Met? Visit Notes Patient/caregiver will demonstrate ability to obtain, store, identify and administer ordered medications, keep accurate medication list in home, and adhere to medication schedule Description: Patient/caregiver will demonstrate ability to obtain, store, identify and administer ordered medications, keep accurate medication list in home, and adhere to medication schedule by 11/04/23. Medication Education No Improved management of mental health condition(s) Description: Patient/caregiver will teach back mental health symptom identification and management techniques by 11/04/23. Mental Health No Patient/caregiver will be able to identify and report symptoms of sepsis Description: Patient/caregiver will be able to identify signs/symptoms of sepsis infection and will verbalize actions to take if suspected by 11/04/23. Sepsis No Manage risk for skin breakdown Description: Patient/caregiver will verbalize and demonstrate understanding of the risks and measures to be taken to monitor and prevent skin breakdown by 11/04/23. Risk for skin breakdown No Patient to maintain parameters within physician-specified ranges throughout certification period Physician Specific Parameters No Manage Risk for falls Description: Patient/caregiver will verbalize knowledge of individualized fall prevention strategies by 11/04/23. Risk for Falls No Manage Pain Description: Patient/caregiver will verbalize knowledge and understanding of appropriate techniques to control pain, including pain medication and non-pharmacological techniques. Patient will verbalize or demonstrate an acceptable level of pain as evidenced by a pain score of 3/10 or less and improvement in ability to perform activities of daily living to be achieved by 11/04/23. Pain No Manage Nutrition/Hydration Description: Patient/caregiver will verbalize/demonstrate knowledge of prescribed diet and/or healthy nutrition to be achieved by 11/04/23. Nutrition/Hydration No Patient/caregiver will teach back high risk medication side effect and precaution education High Risk Medications No Manage discharge planning Description: Patient/caregiver will verbalize understanding of ongoing discharge plan provided related to disease management, arrangements for outpatient and/or community services, obtaining medications, supplies, and DME, as needed throughout certification period. Discharge No Patient/caregiver will make healthcare providers aware of and any changes to Advance Directives throughout certification period Advance Directives Completed Yes 10/18/23 - complete Improved Muscle Performance and/or ROM Description: LTG: Patient will demonstrate improved muscle performance to meet functional goals as evidenced by ability to tolerate 7+ minutes of continuous standing dynamic functional activity, to be achieved by 11/04/23. LTG: Patient and/or caregiver will verbalize/demonstrate independence with post- LENNOX supine/seated/standing home exercise program, to improve functional mobility, to be achieved by 11/04/23. PT Impaired muscle performance and/or ROM No Improved Transfers Description: LTG: Patient will demonstrate safe transfers to/from bed, chair, toilet, couch, shower/tub and car independently, to be achieved by 11/04/23. PT Impaired mobility No Improved Bed Mobility Description: STG: Patient will demonstrate improved bed mobility and supine <> sit independently to be achieved by 10/28/23. PT Impaired mobility No Improved Stair Climbing Description: STG:: Patient will demonstrate improved stair negotiation as evidenced by ascend/descend 3 garage steps with railing independently, to be achieved by 10/28/23. LTG: Patient will demonstrate improved stair negotiation as evidenced by ascend/descend full interior flight of steps with railing independently, to safely access all areas of the home, access community and exit home, to be achieved by 11/04/23. PT Impaired gait No Improved Gait Description: LTG: Patient will demonstrate improved gait ability as evidenced by ambulation 150+ feet with single point cane independently with AD, to return to safe household and community ambulation, in order to perform level and unlevel surface ambulation to independently mobilize in home and limited community tasks including outpatient PT appointments, to be achieved by 11/04/23. PT Impaired gait No Improved Balance Description: LTG: Patient will demonstrate improved standing balance to meet functional goals as evidenced by TUG score of <15 to be achieved by 11/04/23. LTG: Patient will demonstrate improved standing balance to meet functional goals as evidenced by pt's ability to retrieve item from floor level while maintaining hip precautions with good safety independently, to be achieved by 11/04/23. PT Impaired balance No Manage Orthopedic Condition Description: Improve patient and/or caregiver understanding of post surgical and/or non-surgical orthopedic intervention management as evidenced by patient and/or caregiver able to verbalize, demonstrate, and teach back instruction, to be achieved by 11/04/23. PT Orthopedic Condition No Demonstrate understanding of education Description: Patient and/or caregiver will understand educational instruction to be achieved by 11/04/23. PT Learning Assessment No Manage Secondary Pulmonary Disease Description: Improve patient and/or caregiver understanding of secondary pulmonary disease management as evidenced by patient and/or caregiver able to verbalize, demonstrate, and teach back instruction, to be achieved by 11/04/23. PT Pulmonary Disease No Interventions Intervention Associated Problem/Goal Status Variance Visit Notes Medication Education Description: Evaluate/instruct patient/caregiver on obtaining, storing, identifying and administering ordered medications as well as keeping accurate medication list in the home and adhereing to medication schedule Problem:Medication Education Goal:Patient/careg iver will demonstrate ability to obtain, store, identify and administer ordered medications, keep accurate medication list in home, and adhere to medication schedule Completed Patient instructed on importance of keeping accurate medication list in home, need to take up-to-date medication list to all medical provider appointments, adhering to medication schedule, proper storage of medications and disposing of old and out of date medications. Patient/caregiver will teach back mental health symptom identification and management strategies Problem:Mental Health Goal:Improved management of mental health condition(s) Completed Patient instructed on the following: signs and symptoms of increased anxiety and when to report to physician, importance of medication adherence, coping skills and techniques, use of relaxation techniques, use of diversional activities, seeking support from family/friends and crisis hotline use. Instruct on depression symptoms and management Description: PHQ-2 score: below 3 Pt verbalized hx of depression in past year Problem:Mental Health Goal:Improved management of mental health condition(s) Completed Patient instructed on the following: signs of depression and when to report symptoms to physician, record symptoms to assist with ongoing monitoring, coping skills & techniques, develop awareness of stressors, verbalize feelings, the importance of activity, goal planning and schedules , the benefits of adequate nutrition and hydration and seeking support from family/friends. Instruct on coping strategies Problem:Mental Health Goal:Improved management of mental health condition(s) Completed Instructed Patient on coping skills related to anxiety and depression symptoms. Educated on Suicide hotline, availability of 24 hr assistance on-call nursing and relaxation, socializing with family/friends, and breathing strategies. Risk of Sepsis Description: Patient is at risk for sepsis. Monitor closely for s/s of sepsis. Problem:Sepsis Goal:Patient/careg iver will be able to identify and report symptoms of sepsis Completed Instruct on the risks and measures to be taken to prevent skin breakdown Description: Patient's Meka Score is: 18. A Meka score <= to 18 indicates risk for skin breakdown. Problem:Risk for skin breakdown Goal:Manage risk for skin breakdown Completed Patient instructed on the following: skin Integrity and the need to inspect bony prominences, routine skin care, importance of maintaining activity as tolerated and elevating and protecting heels; changing sitting surfaces and positions frequently. Instructed on the risk of friction and shear, meausures to prevent and importance of position changes every 1 to 2 hours. SPO2 Description: Notify Dr. Jimenes if pulse ox is <92% at rest. Problem:Physician Specific Parameters Goal:Patient to maintain parameters within physician-specifie d ranges throughout certification period Completed Instruct on individual fall risk factors and strategies to prevent falls and injuries caused by falls. Problem:Risk for Falls Goal:Manage Risk for falls Completed PT: Patient instructed on Eliminating Environmental Hazards: Keep pathways clear, Remove unsafe rugs, Move furniture from pathways, Keep rooms and walkways well lit, Wear supportive shoes or non-skid socks and Keep frequently used items within reach Managing Impaired Functional Mobility: Use assistive device(s): front wheeled walker and Caregiver to provide assist with: Steps and ADL/IADLs Managing Pain Instruct on pain and instruct on strategies to control pain Problem:Pain Goal:Manage Pain Completed patient instructed on techniques to control pain including Pharmacological measures and Non-Pharmacological measures; rest, positioning/elevatio n, mobility/therapeutic exercise, distraction, breathing/relaxation , use of DME/assistive devices and use of thermal modalities, apply ice to affected area for the following prescribed frequency: cold pack to be applied indirectly over area x 15-20 minutes; off for at least 20 minutes to be repeated as needed for pain . Define patient s appetite/hydration status and implement strategies to improve compliance with prescribed diet and/or healthy nutrition. Problem:Nutrition/ Hydration Goal:Manage Nutrition/Hydratio n Completed instructed patient on implementing strategies to comply with healthy nutrition and adequate hydration Opioids- educated on high risk medication Problem:High Risk Medications Goal:Patient/careg iver will teach back high risk medication side effect and precaution education Completed patient educated on taking medication(s) as prescribed by provider. Do not stop medication or alter doses without speaking with your provider. Discuss medication effectiveness or side effect concerns with your provider and home care team. Only take opioids as prescribed, do not share your medications, and take proper precautions in storing and properly disposing of opioids once no longer needed. Possible side effects of opioid medication including sedation, decreased rate of breathing, and constipation. Report over sedation to prescribing provider and practice deep breathing techniques every hour while awake. Prevent constipation by increasing water and fiber intake, increasing activity as tolerated, and use stool softener(s) as prescribed. Antiplatelet- educated on high risk medication Problem:High Risk Medications Goal:Patient/careg iver will teach back high risk medication side effect and precaution education Completed patient educated on taking medication(s) as prescribed by provider. Do not stop medication or alter doses without speaking with your provider. Discuss medication effectiveness or side effect concerns with your provider and home care team. Discuss all medications you are taking, even aiyz-hrh-arrvgda medicines, with your provider and pharmacist since many drugs can interact with antiplatelet medications. If you forget to take a dose, DO NOT take a double dose. Take the missed dose as soon as possible on the same day. DO NOT take a double dose the next day to make up for the missed dose. Watch for signs of abnormal or excessive bleeding and bruising (refer to Bleeding Precautions education). Call your health care provider right away if you suspect something is wrong. Instruct on ongoing discharge plan Problem:Discharge Goal:Manage discharge planning Completed Ongoing Discharge plan: Discharge plan discussed with patient including frequency and duration for home PT and plan for transition to: outpatient therapy. Instruct on importance of follow-up appts and continued monitoring with medical provider &/or chronic care clinic Problem:Discharge Goal:Manage discharge planning Completed Education provided on importance of compliance with follow-up appointment(s). Recommendations: patient/caregiver to follow up with scheduling appointment(s) for post-acute/primary care provider/orthopedic MD Determine patient's Advance Directive Status Description: Patient does not have advance directives. Patient/Caregiver declined Advance Directive information. Problem:Advance Directives Goal:Patient/careg iver will make healthcare providers aware of and any changes to Advance Directives throughout certification period Completed Discussed Advance Directives with Patient and/or Caregiver. Referred patient to Home Care handbook for further information on Healthcare DPOA & Living Will. Physical Therapy Therapeutic Exercises Problem:PT Impaired muscle performance and/or ROM Goal:Improved Muscle Performance and/or ROM Completed Developed, implemented, and instructed patient on strengthening exercises: post THR anti-embolic and mobility exercises: supine ankle pumps, glut sets, quad sets, SAQ and heel slides. x 10 reps each tolerated and as able to perform correctly. Cues to perform with control and to maintain neutral LE alignment avoiding IR. Recommend pt ambulate every 1-2 hours when awake with FWW as tolerated and perform HEP 3x/day. Physical Therapy Transfer Training Problem:PT Impaired mobility Goal:Improved Transfers Completed Transfer training and instruction to patient on safe transfers to and from chair and toilet with minimal assist and verbal, tactile and visual cues for proper hand/foot placement; maintaining midline postural alignment, use of UE's to assist with eccentric control and maintaining symmetrical weight bearing as tolerated. Recommend spouse not pull pt up by arms to assist; instructed in proper mechanics for pt to complete as much on her own as possible. Physical Therapy Bed Mobility Training Problem:PT Impaired mobility Goal:Improved Bed Mobility Completed Bed mobility training (in and out of recliner) and instruction on safe positioning to patient on supine<>sit with min assistance and verbal and tactile cues for task segmentation including scooting as far as able onto bed before initiating sit to supine; maintaining neutral LE alignment, and assistance bringing LE into/out of bed. Physical Therapy Stair Training Problem:PT Impaired gait Goal:Improved Stair Climbing Completed Stair instruction to patient and caregiver on safe stair climbing, ascend/descend interior steps, with railing with caregiver assistance. Education on proper guarding if pt needed to navigate stairs; and proper sequencing ascending with LLE lead; descend with RLE lead. recommend pt not perform stairs unless necessary until further practice has been completed. Physical Therapy Gait Training Problem:PT Impaired gait Goal:Improved Gait Completed Gait training and instruction to patient on safe ambulation with front wheeled walker for 50 feet with contact guard assist, with verbal, tactile and visual cues for corrections of gait deviations including guarded antalgic gait pattern with decreased R hip and knee extension in stance; decreased weight bearing and stance time RLE with discontinuous asymemtrical stride lengths; slow is[place], foot flat, head down. Physical Therapy Balance Training Problem:PT Impaired balance Goal:Improved Balance Completed with variance Patient requested to defer to next visit TUG deferred d/t pt's pain/fatigue Instruct on management of edema Problem:PT Orthopedic Condition Goal:Manage Orthopedic Condition Completed Instruct patient on management of edema including elevation of RLE above the level of the heart, ice and benefits of activity. Instruct on self-management of post surgical and/or non-surgical orthopedic intervention Problem:PT Orthopedic Condition Goal:Manage Orthopedic Condition Completed patient instructed on managagement of orthopedic condition, measures to avoid skin breakdown, staying well hydrated, eating foods with high protein, signs and symptoms of infection, signs and symptoms of DVT/PE, follow provider guidance for showering , instructed on when to call provider and instructed on when to call 911. Instruct and educate on knowledge deficits Problem:PT Learning Assessment Goal:Demonstrate understanding of education Completed patient verbalize and/or demonstrate understanding of physical therapy education including pulmonary disease management, orthopedic condition management, weight bearing precautions, surgical precautions, pain management, nutrition, fall prevention strategies, home safety, functional activity and home exercise program. Education methods include: verbal cues, tactile cues, written instructions, visual cues and teach back. Further education required to improve knowledge and compliance with pulmonary disease management, orthopedic condition management, weight bearing precautions, surgical precautions, pain management, nutrition, fall prevention strategies, home safety, functional activity and home exercise program. Instruct on signs, symptoms, and management of secondary pulmonary disease Problem:PT Pulmonary Disease Goal:Manage Secondary Pulmonary Disease Completed patient instructed on definition of pulmonary disease, diagnosis of COPD, use of zone sheet, use of RPE scale, exercise and activity guidelines and instructed on when to call provider. [facility] Visit Details Visit Type -[facility]ER ROUTINE Discipline -Physical Therapy Problems Problem Description Start Date Status Goals Interve ntions Medication Education Disciplines: Skilled Services 10/18/2023 Active 1 goal linked to scheduled/document ed intervention 1 goal intervention scheduled/documente d in this visit Physician Specific Parameters Disciplines: Skilled Services 10/18/2023 Active 1 goal linked to scheduled/document ed intervention 1 goal intervention scheduled/documente d in this visit Risk for Falls Disciplines: Skilled Services 10/18/2023 Active 1 goal linked to scheduled/document ed intervention 1 goal intervention scheduled/documente d in this visit Pain Disciplines: Skilled Services 10/18/2023 Active 1 goal linked to scheduled/document ed intervention 1 goal intervention scheduled/documente d in this visit PT Orthopedic Condition Disciplines: PT 10/18/2023 Active 1 goal linked to scheduled/document ed intervention 2 goal interventions scheduled/documente d in this visit PT Learning Assessment Disciplines: PT 10/18/2023 Active 1 goal linked to scheduled/document ed intervention 1 goal intervention scheduled/documente d in this visit Goals Goal Associated Problem Outcome Goal Met? Visit Notes Patient/caregiver will demonstrate ability to obtain, store, identify and administer ordered medications, keep accurate medication list in home, and adhere to medication schedule Description: Patient/caregiver will demonstrate ability to obtain, store, identify and administer ordered medications, keep accurate medication list in home, and adhere to medication schedule by 11/04/23. Medication Education No Patient to maintain parameters within physician-specified ranges throughout certification period Physician Specific Parameters No Manage Risk for falls Description: Patient/caregiver will verbalize knowledge of individualized fall prevention strategies by 11/04/23. Risk for Falls No Manage Pain Description: Patient/caregiver will verbalize knowledge and understanding of appropriate techniques to control pain, including pain medication and non-pharmacological techniques. Patient will verbalize or demonstrate an acceptable level of pain as evidenced by a pain score of 3/10 or less and improvement in ability to perform activities of daily living to be achieved by 11/04/23. Pain No Manage Orthopedic Condition Description: Improve patient and/or caregiver understanding of post surgical and/or non-surgical orthopedic intervention management as evidenced by patient and/or caregiver able to verbalize, demonstrate, and teach back instruction, to be achieved by 11/04/23. PT Orthopedic Condition No Demonstrate understanding of education Description: Patient and/or caregiver will understand educational instruction to be achieved by 11/04/23. PT Learning Assessment No Interventions Intervention Associated Problem/Goal Status Variance Visit Notes Medication Education Description: Evaluate/instruct patient/caregiver on obtaining, storing, identifying and administering ordered medications as well as keeping accurate medication list in the home and adhereing to medication schedule Problem:Medication Education Goal:Patient/caregive r will demonstrate ability to obtain, store, identify and administer ordered medications, keep accurate medication list in home, and adhere to medication schedule Completed Patient instructed on adhering to medication schedule. SPO2 Description: Notify Dr. Jimenes if pulse ox is <92% at rest. Problem:Physician Specific Parameters Goal:Patient to maintain parameters within physician-specified ranges throughout certification period Completed Instruct on individual fall risk factors and strategies to prevent falls and injuries caused by falls. Problem:Risk for Falls Goal:Manage Risk for falls Completed PT: Patient instructed on Managing Impaired Functional Mobility: Use assistive device(s): front wheeled walker Instruct on pain and instruct on strategies to control pain Problem:Pain Goal:Manage Pain Completed patient instructed on techniques to control pain including Pharmacological measures and Non-Pharmacological measures; positioning/elevation, mobility/therapeutic exercise and use of thermal modalities, apply ice to affected area for the following prescribed frequency: 15-20' for 3-4x/day. . Instruct on management of edema Problem:PT Orthopedic Condition Goal:Manage Orthopedic Condition Completed Instruct patient and caregiver on management of edema including elevation of R LE above the level of the heart and ice. Instruct on self-management of post surgical and/or non-surgical orthopedic intervention Problem:PT Orthopedic Condition Goal:Manage Orthopedic Condition Completed patient and caregiver instructed on managagement of orthopedic condition, signs and symptoms of infection, signs and symptoms of DVT/PE, follow provider guidance for showering , instructed on when to call provider and instructed on when to call 911. Instruct and educate on knowledge deficits Problem:PT Learning Assessment Goal:Demonstrate understanding of education Completed patient and caregiver verbalize and/or demonstrate understanding of physical therapy education including nutrition. Education methods include: verbal cues. Further education required to improve knowledge and compliance with orthopedic condition management, fall prevention strategies and home exercise program. documented in this encounter [facility] Plan of care note* Visit Details Visit Type -CLAM SHUCKER ROUTINE Discipline -Physical Therapy Problems Problem Description Start Date Status Goals Interve ntions Medication Education Disciplines: Skilled Services 10/18/2023 Active 1 goal linked to scheduled/documente d intervention 1 goal intervention scheduled/document ed in this visit Risk for skin breakdown Disciplines: Skilled Services 10/18/2023 Active 1 goal linked to scheduled/documente d intervention 1 goal intervention scheduled/document ed in this visit Physician Specific Parameters Disciplines: Skilled Services 10/18/2023 Active 1 goal linked to scheduled/documente d intervention 1 goal intervention scheduled/document ed in this visit Risk for Falls Disciplines: Skilled Services 10/18/2023 Active 1 goal linked to scheduled/documente d intervention 1 goal intervention scheduled/document ed in this visit Pain Disciplines: Skilled Services 10/18/2023 Active 1 goal linked to scheduled/documente d intervention 1 goal intervention scheduled/document ed in this visit Discharge Disciplines: Skilled Services 10/18/2023 Active 1 goal linked to scheduled/documente d intervention 1 goal intervention scheduled/document ed in this visit PT Impaired mobility Disciplines: PT 10/18/2023 Active 1 goal linked to scheduled/documente d intervention 1 goal intervention scheduled/document ed in this visit PT Impaired gait Disciplines: PT 10/18/2023 Active 2 goals linked to scheduled/documente d interventions 2 goal interventions scheduled/document ed in this visit PT Impaired balance Disciplines: PT 10/18/2023 Active 1 goal linked to scheduled/documente d intervention 1 goal intervention scheduled/document ed in this visit PT Orthopedic Condition Disciplines: PT 10/18/2023 Active 1 goal linked to scheduled/documente d intervention 3 goal interventions scheduled/document ed in this visit PT Pulmonary Disease Disciplines: PT 10/18/2023 Active 1 goal linked to scheduled/documente d intervention 1 goal intervention scheduled/document ed in this visit Goals Goal Associated Problem Outcome Goal Met? Visit Notes Patient/caregiver will demonstrate ability to obtain, store, identify and administer ordered medications, keep accurate medication list in home, and adhere to medication schedule Description: Patient/caregiver will demonstrate ability to obtain, store, identify and administer ordered medications, keep accurate medication list in home, and adhere to medication schedule by 11/04/23. Medication Education No Manage risk for skin breakdown Description: Patient/caregiver will verbalize and demonstrate understanding of the risks and measures to be taken to monitor and prevent skin breakdown by 11/04/23. Risk for skin breakdown No Patient to maintain parameters within physician-specified ranges throughout certification period Physician Specific Parameters No Manage Risk for falls Description: Patient/caregiver will verbalize knowledge of individualized fall prevention strategies by 11/04/23. Risk for Falls No Manage Pain Description: Patient/caregiver will verbalize knowledge and understanding of appropriate techniques to control pain, including pain medication and non-pharmacological techniques. Patient will verbalize or demonstrate an acceptable level of pain as evidenced by a pain score of 3/10 or less and improvement in ability to perform activities of daily living to be achieved by 11/04/23. Pain No Manage discharge planning Description: Patient/caregiver will verbalize understanding of ongoing discharge plan provided related to disease management, arrangements for outpatient and/or community services, obtaining medications, supplies, and DME, as needed throughout certification period. Discharge No Improved Transfers Description: LTG: Patient will demonstrate safe transfers to/from bed, chair, toilet, couch, shower/tub and car independently, to be achieved by 11/04/23. PT Impaired mobility No Improved Stair Climbing Description: STG:: Patient will demonstrate improved stair negotiation as evidenced by ascend/descend 3 garage steps with railing independently, to be achieved by 10/28/23. LTG: Patient will demonstrate improved stair negotiation as evidenced by ascend/descend full interior flight of steps with railing independently, to safely access all areas of the home, access community and exit home, to be achieved by 11/04/23. PT Impaired gait No Improved Gait Description: LTG: Patient will demonstrate improved gait ability as evidenced by ambulation 150+ feet with single point cane independently with AD, to return to safe household and community ambulation, in order to perform level and unlevel surface ambulation to independently mobilize in home and limited community tasks including outpatient PT appointments, to be achieved by 11/04/23. PT Impaired gait No Improved Balance Description: LTG: Patient will demonstrate improved standing balance to meet functional goals as evidenced by TUG score of <15 to be achieved by 11/04/23. LTG: Patient will demonstrate improved standing balance to meet functional goals as evidenced by pt's ability to retrieve item from floor level while maintaining hip precautions with good safety independently, to be achieved by 11/04/23. PT Impaired balance No Manage Orthopedic Condition Description: Improve patient and/or caregiver understanding of post surgical and/or non-surgical orthopedic intervention management as evidenced by patient and/or caregiver able to verbalize, demonstrate, and teach back instruction, to be achieved by 11/04/23. PT Orthopedic Condition No Manage Secondary Pulmonary Disease Description: Improve patient and/or caregiver understanding of secondary pulmonary disease management as evidenced by patient and/or caregiver able to verbalize, demonstrate, and teach back instruction, to be achieved by 11/04/23. PT Pulmonary Disease No Interventions Intervention Associated Problem/Goal Status Variance Visit Notes Medication Education Description: Evaluate/instruct patient/caregiver on obtaining, storing, identifying and administering ordered medications as well as keeping accurate medication list in the home and adhereing to medication schedule Problem:Medication Education Goal:Patient/caregive r will demonstrate ability to obtain, store, identify and administer ordered medications, keep accurate medication list in home, and adhere to medication schedule Completed patient Caregiver instructed on adhering to medication schedule. Instruct on the risks and measures to be taken to prevent skin breakdown Description: Patient's Meka Score is: 18. A Meka score <= to 18 indicates risk for skin breakdown. Problem:Risk for skin breakdown Goal:Manage risk for skin breakdown Completed patient instructed on maintaining skin integrity including: The need for every 1-2 hour turns, position changes, and maintaining activity as tolerated and Notifying [facility] clinician of changes to skin integrity SPO2 Description: Notify Dr. Jimenes if pulse ox is <92% at rest. Problem:Physician Specific Parameters Goal:Patient to maintain parameters within physician-specified ranges throughout certification period Completed Instruct on individual fall risk factors and strategies to prevent falls and injuries caused by falls. Problem:Risk for Falls Goal:Manage Risk for falls Completed PT: Patient and Caregiver instructed on Eliminating Environmental Hazards: Keep pathways clear, Remove unsafe rugs, Keep rooms and walkways well lit, Install hand rails/grab bars, Wear supportive shoes or non-skid socks and Keep frequently used items within reach Managing Impaired Functional Mobility: Use assistive device(s): front wheeled walker and Caregiver to provide assist with: Ambulation, Steps, Transfers and ADL/IADLs Managing Pain Instruct on pain and instruct on strategies to control pain Problem:Pain Goal:Manage Pain Completed patient instructed on techniques to control pain including Pharmacological measures and Non-Pharmacological measures; rest, positioning/elevation, mobility/therapeutic exercise and use of DME/assistive devices. Instruct on ongoing discharge plan Problem:Discharge Goal:Manage discharge planning Completed Ongoing Discharge plan: Discharge plan discussed with patient including frequency and duration for home PT and plan for transition to: outpatient therapy. Physical Therapy Transfer Training Problem:PT Impaired mobility Goal:Improved Transfers Completed Transfer training and instruction to patient and caregiver on safe transfers to and from chair, couch and shower/tub with supervision and verbal, tactile and visual cues for seuncing, hand plaement, how to avoid breaking hip prec.. Physical Therapy Stair Training Problem:PT Impaired gait Goal:Improved Stair Climbing Completed Stair training and instruction to patient and caregiver on safe stair climbing, ascend/descend 1 flgiht interior steps, with railing and with SPC with stand by assist and verbal and visual cues for lead up with LLE, lead down with RLE and cane, wehre CG should stand. Physical Therapy Gait Training Problem:PT Impaired gait Goal:Improved Gait Completed Gait training and instruction to patient on safe ambulation with front wheeled walker for 75 feet with supervision, with verbal and visual cues for corrections of gait deviations including fair step through, altalgic, no lOB. Physical Therapy Balance Training Problem:PT Impaired balance Goal:Improved Balance Completed Developed, implemented, and instructed patient on standing balance exercises including calf riases, alt hip/kne flex, RLE ham curls x 8-10 for all with 2 hand support on counter. Instruct on orthopedic precautions and weight bearing restrictions Description: Orthopedic precautions including right posterior hip: no hip flexion > 90 degrees and no crossing LE's./midline with RLE; maintain RLE neutral alignment, no pivoting Weight bearing restrictions include: WBAT of involved extremity. Problem:PT Orthopedic Condition Goal:Manage Orthopedic Condition Completed patient and caregiver instructed on orthopedic precautions and weight bearing restrictions. Instruct on management of edema Problem:PT Orthopedic Condition Goal:Manage Orthopedic Condition Completed Instruct patient on management of edema including elevation of rle above the level of the heart and benefits of activity. Instruct on self-management of post surgical and/or non-surgical orthopedic intervention Problem:PT Orthopedic Condition Goal:Manage Orthopedic Condition Completed patient and caregiver instructed on managagement of orthopedic condition, signs and symptoms of infection, signs and symptoms of DVT/PE and instructed on when to call provider. Instruct on signs, symptoms, and management of secondary pulmonary disease Problem:PT Pulmonary Disease Goal:Manage Secondary Pulmonary Disease Completed patient and caregiver instructed on energy conservation, exercise and activity guidelines and breathing management. documented in this encounter [facility] Plan of care note* Visit Details Visit Type -CLAM SHUCKER ROUTINE Discipline -Physical Therapy Problems Problem Description Start Date Status Goals Interve ntions Medication Education Disciplines: Skilled Services 10/18/2023 Active 1 goal linked to scheduled/documente d intervention 1 goal intervention scheduled/document ed in this visit Sepsis Disciplines: Skilled Services 10/18/2023 Active 1 goal linked to scheduled/documente d intervention 1 goal intervention scheduled/document ed in this visit Risk for skin breakdown Disciplines: Skilled Services 10/18/2023 Active 1 goal linked to scheduled/documente d intervention 1 goal intervention scheduled/document ed in this visit Physician Specific Parameters Disciplines: Skilled Services 10/18/2023 Active 1 goal linked to scheduled/documente d intervention 1 goal intervention scheduled/document ed in this visit Risk for Falls Disciplines: Skilled Services 10/18/2023 Active 1 goal linked to scheduled/documente d intervention 1 goal intervention scheduled/document ed in this visit Pain Disciplines: Skilled Services 10/18/2023 Active 1 goal linked to scheduled/documente d intervention 1 goal intervention scheduled/document ed in this visit High Risk Medications Disciplines: Skilled Services 10/18/2023 Active 1 goal linked to scheduled/documente d intervention 1 goal intervention scheduled/document ed in this visit Discharge Disciplines: Skilled Services 10/18/2023 Active 1 goal linked to scheduled/documente d intervention 2 goal interventions scheduled/document ed in this visit PT Impaired mobility Disciplines: PT 10/18/2023 Active 2 goals linked to scheduled/documente d interventions 2 goal interventions scheduled/document ed in this visit PT Impaired gait Disciplines: PT 10/18/2023 Active 2 goals linked to scheduled/documente d interventions 2 goal interventions scheduled/document ed in this visit PT Impaired balance Disciplines: PT 10/18/2023 Active 1 goal linked to scheduled/documente d intervention 1 goal intervention scheduled/document ed in this visit PT Orthopedic Condition Disciplines: PT 10/18/2023 Active 1 goal linked to scheduled/documente d intervention 3 goal interventions scheduled/document ed in this visit PT Learning Assessment Disciplines: PT 10/18/2023 Active 1 goal linked to scheduled/documente d intervention 1 goal intervention scheduled/document ed in this visit PT Pulmonary Disease Disciplines: PT 10/18/2023 Active 1 goal linked to scheduled/documente d intervention 1 goal intervention scheduled/document ed in this visit Goals Goal Associated Problem Outcome Goal Met? Visit Notes Patient/caregiver will demonstrate ability to obtain, store, identify and administer ordered medications, keep accurate medication list in home, and adhere to medication schedule Description: Patient/caregiver will demonstrate ability to obtain, store, identify and administer ordered medications, keep accurate medication list in home, and adhere to medication schedule by 11/04/23. Medication Education No Patient/caregiver will be able to identify and report symptoms of sepsis Description: Patient/caregiver will be able to identify signs/symptoms of sepsis infection and will verbalize actions to take if suspected by 11/04/23. Sepsis No Manage risk for skin breakdown Description: Patient/caregiver will verbalize and demonstrate understanding of the risks and measures to be taken to monitor and prevent skin breakdown by 11/04/23. Risk for skin breakdown No Patient to maintain parameters within physician-specified ranges throughout certification period Physician Specific Parameters No Manage Risk for falls Description: Patient/caregiver will verbalize knowledge of individualized fall prevention strategies by 11/04/23. Risk for Falls No Manage Pain Description: Patient/caregiver will verbalize knowledge and understanding of appropriate techniques to control pain, including pain medication and non-pharmacological techniques. Patient will verbalize or demonstrate an acceptable level of pain as evidenced by a pain score of 3/10 or less and improvement in ability to perform activities of daily living to be achieved by 11/04/23. Pain No Patient/caregiver will teach back high risk medication side effect and precaution education High Risk Medications No Manage discharge planning Description: Patient/caregiver will verbalize understanding of ongoing discharge plan provided related to disease management, arrangements for outpatient and/or community services, obtaining medications, supplies, and DME, as needed throughout certification period. Discharge No Improved Transfers Description: LTG: Patient will demonstrate safe transfers to/from bed, chair, toilet, couch, shower/tub and car independently, to be achieved by 11/04/23. PT Impaired mobility No Improved Bed Mobility Description: STG: Patient will demonstrate improved bed mobility and supine <> sit independently to be achieved by 10/28/23. PT Impaired mobility No Improved Stair Climbing Description: STG:: Patient will demonstrate improved stair negotiation as evidenced by ascend/descend 3 garage steps with railing independently, to be achieved by 10/28/23. LTG: Patient will demonstrate improved stair negotiation as evidenced by ascend/descend full interior flight of steps with railing independently, to safely access all areas of the home, access community and exit home, to be achieved by 11/04/23. PT Impaired gait No Improved Gait Description: LTG: Patient will demonstrate improved gait ability as evidenced by ambulation 150+ feet with single point cane independently with AD, to return to safe household and community ambulation, in order to perform level and unlevel surface ambulation to independently mobilize in home and limited community tasks including outpatient PT appointments, to be achieved by 11/04/23. PT Impaired gait No Improved Balance Description: LTG: Patient will demonstrate improved standing balance to meet functional goals as evidenced by TUG score of <15 to be achieved by 11/04/23. LTG: Patient will demonstrate improved standing balance to meet functional goals as evidenced by pt's ability to retrieve item from floor level while maintaining hip precautions with good safety independently, to be achieved by 11/04/23. PT Impaired balance No Manage Orthopedic Condition Description: Improve patient and/or caregiver understanding of post surgical and/or non-surgical orthopedic intervention management as evidenced by patient and/or caregiver able to verbalize, demonstrate, and teach back instruction, to be achieved by 11/04/23. PT Orthopedic Condition No Demonstrate understanding of education Description: Patient and/or caregiver will understand educational instruction to be achieved by 11/04/23. PT Learning Assessment No Manage Secondary Pulmonary Disease Description: Improve patient and/or caregiver understanding of secondary pulmonary disease management as evidenced by patient and/or caregiver able to verbalize, demonstrate, and teach back instruction, to be achieved by 11/04/23. PT Pulmonary Disease No Interventions Intervention Associated Problem/Goal Status Variance Visit Notes Medication Education Description: Evaluate/instruct patient/caregiver on obtaining, storing, identifying and administering ordered medications as well as keeping accurate medication list in the home and adhereing to medication schedule Problem:Medication Education Goal:Patient/caregi dionicio will demonstrate ability to obtain, store, identify and administer ordered medications, keep accurate medication list in home, and adhere to medication schedule Completed Patient instructed on adhering to medication schedule. Risk of Sepsis Description: Patient is at risk for sepsis. Monitor closely for s/s of sepsis. Problem:Sepsis Goal:Patient/caregi dionicio will be able to identify and report symptoms of sepsis Completed Instruct on the risks and measures to be taken to prevent skin breakdown Description: Patient's Meka Score is: 18. A Meka score <= to 18 indicates risk for skin breakdown. Problem:Risk for skin breakdown Goal:Manage risk for skin breakdown Completed patient and caregiver instructed on maintaining skin integrity including: The need for every 1-2 hour turns, position changes, and maintaining activity as tolerated SPO2 Description: Notify Dr. Jimenes if pulse ox is <92% at rest. Problem:Physician Specific Parameters Goal:Patient to maintain parameters within physician-specified ranges throughout certification period Completed Instruct on individual fall risk factors and strategies to prevent falls and injuries caused by falls. Problem:Risk for Falls Goal:Manage Risk for falls Completed PT: Patient and Caregiver instructed on Eliminating Environmental Hazards: Keep pathways clear, Remove unsafe rugs, Keep rooms and walkways well lit, Install hand rails/grab bars, Wear supportive shoes or non-skid socks and Keep frequently used items within reach Managing Impaired Functional Mobility: Use assistive device(s): front wheeled walker and Caregiver to provide assist with: Ambulation, Steps, Transfers and ADL/IADLs Managing Pain Instruct on pain and instruct on strategies to control pain Problem:Pain Goal:Manage Pain Completed patient and caregiver instructed on techniques to control pain including Pharmacological measures and Non-Pharmacological measures; rest, positioning/elevatio n, mobility/therapeutic exercise and use of DME/assistive devices. Opioids- educated on high risk medication Problem:High Risk Medications Goal:Patient/caregi dionicio will teach back high risk medication side effect and precaution education Completed patient and caregiver educated on taking medication(s) as prescribed by provider. Do not stop medication or alter doses without speaking with your provider. Discuss medication effectiveness or side effect concerns with your provider and home care team. Possible side effects of opioid medication including sedation, decreased rate of breathing, and constipation. Prevent constipation by increasing water and fiber intake, increasing activity as tolerated, and use stool softener(s) as prescribed. Contact provider if constipated Deliver [facility] Problem:Discharge Goal:Manage discharge planning Completed Delivered [facility] on 10/31/23 for discharge date of 11/02/23. Instruct on ongoing discharge plan Problem:Discharge Goal:Manage discharge planning Completed Ongoing Discharge plan: Discharge plan discussed with patient and caregiver including frequency and duration for home PT and plan for transition to: outpatient therapy. Physical Therapy Transfer Training Problem:PT Impaired mobility Goal:Improved Transfers Completed Transfer training and instruction to patient and caregiver on safe transfers to and from chair, couch and shower/tub with supervision and verbal, tactile and visual cues for sequencing, hand placement, how to avoid breaking hip prec Physical Therapy Bed Mobility Training Problem:PT Impaired mobility Goal:Improved Bed Mobility Patient requested to defer to next visit Physical Therapy Stair Training Problem:PT Impaired gait Goal:Improved Stair Climbing Patient requested to defer to next visit Physical Therapy Gait Training Problem:PT Impaired gait Goal:Improved Gait Completed Gait training and instruction to patient and caregiver on safe ambulation with front wheeled walker and single point cane for 100 feet with FWW, 25 feet with SPC with stand by assist, with verbal and visual cues for corrections of gait deviations including correct hand for cane use, Cg to be SBA, good step through, mild antalgia RLE Advised to practice for a few mins each day with sPC, along the counter with Cg SBA as tolerated. Physical Therapy Balance Training Problem:PT Impaired balance Goal:Improved Balance Completed Developed, implemented, and instructed patient and caregiver on standing balance exercises including gait training with SPC. Instruct on orthopedic precautions and weight bearing restrictions Description: Orthopedic precautions including right posterior hip: no hip flexion > 90 degrees and no crossing LE's./midline with RLE; maintain RLE neutral alignment, no pivoting Weight bearing restrictions include: WBAT of involved extremity. Problem:PT Orthopedic Condition Goal:Manage Orthopedic Condition Completed patient and caregiver instructed on orthopedic precautions and weight bearing restrictions. Instruct on management of edema Problem:PT Orthopedic Condition Goal:Manage Orthopedic Condition Completed Instruct patient and caregiver on management of edema including elevation of RLE above the level of the heart, ice and benefits of activity. Instruct on self-management of post surgical and/or non-surgical orthopedic intervention Problem:PT Orthopedic Condition Goal:Manage Orthopedic Condition Completed patient and caregiver instructed on managagement of orthopedic condition and instructed on when to call provider, s/s of infection , sepsis Instruct and educate on knowledge deficits Problem:PT Learning Assessment Goal:Demonstrate understanding of education Completed patient and caregiver verbalize and/or demonstrate understanding of physical therapy education including orthopedic condition management, weight bearing precautions, surgical precautions, pain management, fall prevention strategies, functional activity and home exercise program. Education methods include: verbal cues, tactile cues, written instructions and visual cues. Further education required to improve knowledge and compliance with orthopedic condition management. Instruct on signs, symptoms, and management of secondary pulmonary disease Problem:PT Pulmonary Disease Goal:Manage Secondary Pulmonary Disease Completed patient and caregiver instructed on energy conservation and exercise and activity guidelines. [facility] Visit Details Visit Type -PT AGENCY DC W V ISIT Discipline -Physical Therapy Problems Problem Description Start Date Status Goals Interve ntions Medication Education Disciplines: Skilled Services 10/18/2023 Resolved on 11/02/2023 1 goal linked to scheduled/document ed intervention 1 goal intervention scheduled/document ed in this visit Mental Health Disciplines: Skilled Services 10/18/2023 Resolved on 11/02/2023 1 goal linked to scheduled/document ed intervention 3 goal interventions scheduled/document ed in this visit Sepsis Disciplines: Skilled Services 10/18/2023 Resolved on 11/02/2023 1 goal linked to scheduled/document ed intervention 1 goal intervention scheduled/document ed in this visit Risk for skin breakdown Disciplines: Skilled Services 10/18/2023 Resolved on 11/02/2023 1 goal linked to scheduled/document ed intervention 1 goal intervention scheduled/document ed in this visit Physician Specific Parameters Disciplines: Skilled Services 10/18/2023 Resolved on 11/02/2023 1 goal linked to scheduled/document ed intervention 1 goal intervention scheduled/document ed in this visit Risk for Falls Disciplines: Skilled Services 10/18/2023 Resolved on 11/02/2023 1 goal linked to scheduled/document ed intervention 1 goal intervention scheduled/document ed in this visit Pain Disciplines: Skilled Services 10/18/2023 Resolved on 11/02/2023 1 goal linked to scheduled/document ed intervention 1 goal intervention scheduled/document ed in this visit Nutrition/Hydrat ion Disciplines: Skilled Services 10/18/2023 Resolved on 11/02/2023 1 goal linked to scheduled/document ed intervention 1 goal intervention scheduled/document ed in this visit High Risk Medications Disciplines: Skilled Services 10/18/2023 Resolved on 11/02/2023 1 goal linked to scheduled/document ed intervention 2 goal interventions scheduled/document ed in this visit Discharge Disciplines: Skilled Services 10/18/2023 Resolved on 11/02/2023 1 goal linked to scheduled/document ed intervention 4 goal interventions scheduled/document ed in this visit PT Impaired muscle performance and/or ROM Disciplines: PT 10/18/2023 Resolved on 11/02/2023 1 goal linked to scheduled/document ed intervention 1 goal intervention scheduled/document ed in this visit PT Impaired mobility Disciplines: PT 10/18/2023 Resolved on 11/02/2023 2 goals linked to scheduled/document ed interventions 2 goal interventions scheduled/document ed in this visit PT Impaired gait Disciplines: PT 10/18/2023 Resolved on 11/02/2023 2 goals linked to scheduled/document ed interventions 2 goal interventions scheduled/document ed in this visit PT Impaired balance Disciplines: PT 10/18/2023 Resolved on 11/02/2023 1 goal linked to scheduled/document ed intervention 1 goal intervention scheduled/document ed in this visit PT Orthopedic Condition Disciplines: PT 10/18/2023 Resolved on 11/02/2023 1 goal linked to scheduled/document ed intervention 4 goal interventions scheduled/document ed in this visit PT Learning Assessment Disciplines: PT 10/18/2023 Resolved on 11/02/2023 1 goal linked to scheduled/document ed intervention 1 goal intervention scheduled/document ed in this visit PT Pulmonary Disease Disciplines: PT 10/18/2023 Resolved on 11/02/2023 1 goal linked to scheduled/document ed intervention 1 goal intervention scheduled/document ed in this visit Goals Goal Associated Problem Outcome Goal Met? Visit Notes Patient/caregiver will demonstrate ability to obtain, store, identify and administer ordered medications, keep accurate medication list in home, and adhere to medication schedule Description: Patient/caregiver will demonstrate ability to obtain, store, identify and administer ordered medications, keep accurate medication list in home, and adhere to medication schedule by 11/04/23. Medication Education Completed Yes Goal met Improved management of mental health condition(s) Description: Patient/caregiver will teach back mental health symptom identification and management techniques by 11/04/23. Mental Health Completed Yes Goal met Patient/caregiver will be able to identify and report symptoms of sepsis Description: Patient/caregiver will be able to identify signs/symptoms of sepsis infection and will verbalize actions to take if suspected by 11/04/23. Sepsis Completed Yes Goal met Manage risk for skin breakdown Description: Patient/caregiver will verbalize and demonstrate understanding of the risks and measures to be taken to monitor and prevent skin breakdown by 11/04/23. Risk for skin breakdown Completed Yes Goal met Patient to maintain parameters within physician-specified ranges throughout certification period Physician Specific Parameters Completed Yes Goal met Manage Risk for falls Description: Patient/caregiver will verbalize knowledge of individualized fall prevention strategies by 11/04/23. Risk for Falls Completed Yes Goal met Manage Pain Description: Patient/caregiver will verbalize knowledge and understanding of appropriate techniques to control pain, including pain medication and non-pharmacological techniques. Patient will verbalize or demonstrate an acceptable level of pain as evidenced by a pain score of 3/10 or less and improvement in ability to perform activities of daily living to be achieved by 11/04/23. Pain Completed Yes Goal met Manage Nutrition/Hydration Description: Patient/caregiver will verbalize/demonstrate knowledge of prescribed diet and/or healthy nutrition to be achieved by 11/04/23. Nutrition/Hydration Completed Yes Goal met Patient/caregiver will teach back high risk medication side effect and precaution education High Risk Medications Completed Yes Goal met Manage discharge planning Description: Patient/caregiver will verbalize understanding of ongoing discharge plan provided related to disease management, arrangements for outpatient and/or community services, obtaining medications, supplies, and DME, as needed throughout certification period. Discharge Completed Yes Goal met Improved Muscle Performance and/or ROM Description: LTG: Patient will demonstrate improved muscle performance to meet functional goals as evidenced by ability to tolerate 7+ minutes of continuous standing dynamic functional activity, to be achieved by 11/04/23. LTG: Patient and/or caregiver will verbalize/demonstrate independence with post- LENNOX supine/seated/standing home exercise program, to improve functional mobility, to be achieved by 11/04/23. PT Impaired muscle performance and/or ROM Completed Yes Goal met Improved Transfers Description: LTG: Patient will demonstrate safe transfers to/from bed, chair, toilet, couch, shower/tub and car independently, to be achieved by 11/04/23. PT Impaired mobility Completed Yes Goal met Improved Bed Mobility Description: STG: Patient will demonstrate improved bed mobility and supine <> sit independently to be achieved by 10/28/23. PT Impaired mobility Completed Yes Goal met Improved Stair Climbing Description: STG:: Patient will demonstrate improved stair negotiation as evidenced by ascend/descend 3 garage steps with railing independently, to be achieved by 10/28/23. LTG: Patient will demonstrate improved stair negotiation as evidenced by ascend/descend full interior flight of steps with railing independently, to safely access all areas of the home, access community and exit home, to be achieved by 11/04/23. PT Impaired gait Completed Yes Goal met Improved Gait Description: LTG: Patient will demonstrate improved gait ability as evidenced by ambulation 150+ feet with single point cane independently with AD, to return to safe household and community ambulation, in order to perform level and unlevel surface ambulation to independently mobilize in home and limited community tasks including outpatient PT appointments, to be achieved by 11/04/23. PT Impaired gait Completed Yes Goal met Improved Balance Description: LTG: Patient will demonstrate improved standing balance to meet functional goals as evidenced by TUG score of <15 to be achieved by 11/04/23. LTG: Patient will demonstrate improved standing balance to meet functional goals as evidenced by pt's ability to retrieve item from floor level while maintaining hip precautions with good safety independently, to be achieved by 11/04/23. PT Impaired balance Completed Yes Goal met Manage Orthopedic Condition Description: Improve patient and/or caregiver understanding of post surgical and/or non-surgical orthopedic intervention management as evidenced by patient and/or caregiver able to verbalize, demonstrate, and teach back instruction, to be achieved by 11/04/23. PT Orthopedic Condition Completed Yes Goal met Demonstrate understanding of education Description: Patient and/or caregiver will understand educational instruction to be achieved by 11/04/23. PT Learning Assessment Completed Yes Goal met Manage Secondary Pulmonary Disease Description: Improve patient and/or caregiver understanding of secondary pulmonary disease management as evidenced by patient and/or caregiver able to verbalize, demonstrate, and teach back instruction, to be achieved by 11/04/23. PT Pulmonary Disease Completed Yes Goal met Interventions Intervention Associated Problem/Goal Status Variance Visit Notes Medication Education Description: Evaluate/instruct patient/caregiver on obtaining, storing, identifying and administering ordered medications as well as keeping accurate medication list in the home and adhereing to medication schedule Problem:Medication Education Goal:Patient/caregiv er will demonstrate ability to obtain, store, identify and administer ordered medications, keep accurate medication list in home, and adhere to medication schedule Completed Patient instructed on importance of keeping accurate medication list in home, need to take up-to-date medication list to all medical provider appointments, adhering to medication schedule and proper storage of medications. Patient/caregiver will teach back mental health symptom identification and management strategies Problem:Mental Health Goal:Improved management of mental health condition(s) Completed Patient instructed on the following: signs and symptoms of increased anxiety and when to report to physician, importance of medication adherence, coping skills and techniques, use of relaxation techniques, use of diversional activities, seeking support from family/friends and crisis hotline use. Instruct on depression symptoms and management Description: PHQ-2 score: below 3 Pt verbalized hx of depression in past year Problem:Mental Health Goal:Improved management of mental health condition(s) Completed Patient instructed on the following: signs of depression and when to report symptoms to physician, importance of medication adherence, record symptoms to assist with ongoing monitoring, coping skills & techniques, develop awareness of stressors, verbalize feelings, the importance of activity, goal planning and schedules , the benefits of adequate nutrition and hydration, seeking support from family/friends and crisis and suicide prevention hotline use. Instruct on coping strategies Problem:Mental Health Goal:Improved management of mental health condition(s) Completed Risk of Sepsis Description: Patient is at risk for sepsis. Monitor closely for s/s of sepsis. Problem:Sepsis Goal:Patient/caregiv er will be able to identify and report symptoms of sepsis Completed Instruct on the risks and measures to be taken to prevent skin breakdown Description: Patient's Meka Score is: 18. A Meka score <= to 18 indicates risk for skin breakdown. Problem:Risk for skin breakdown Goal:Manage risk for skin breakdown Completed patient and caregiver instructed on maintaining skin integrity including: The need for every 1-2 hour turns, position changes, and maintaining activity as tolerated, Reducing risk of friction and shear, including use of draw sheet as appropriate, Elevating and protecting heels, Incontinence care, Inspecting bony prominences, Routine skin care and Notifying [facility] clinician of changes to skin integrity SPO2 Description: Notify Dr. Jimenes if pulse ox is <92% at rest. Problem:Physician Specific Parameters Goal:Patient to maintain parameters within physician-specified ranges throughout certification period Completed Instruct on individual fall risk factors and strategies to prevent falls and injuries caused by falls. Problem:Risk for Falls Goal:Manage Risk for falls Completed Patient instructed on Eliminating Environmental Hazards: Keep pathways clear, Move furniture from pathways, Keep rooms and walkways well lit, Wear supportive shoes or non-skid socks and Keep frequently used items within reach Instruct on pain and instruct on strategies to control pain Problem:Pain Goal:Manage Pain Completed Patient and caregiver instructed on techniques to control pain including Pharmacological measures and Non-Pharmacological measures; rest, positioning/elevation, mobility/therapeutic exercise, use ofDME/assistive devices and use of thermal modalities, apply ice to affected area for the following prescribed frequency: 4 times a day x 20 min. Define patient s appetite/hydration status and implement strategies to improve compliance with prescribed diet and/or healthy nutrition. Problem:Nutrition/Hy dration Goal:Manage Nutrition/Hydration Completed reinforced patient and caregiver on implementing strategies to comply with healthy nutrition and adequate hydration Opioids- educated on high risk medication Problem:High Risk Medications Goal:Patient/caregiv er will teach back high risk medication side effect and precaution education Completed patient educated on taking medication(s) as prescribed by provider. Do not stop medication or alter doses without speaking with your provider. Discuss medication effectiveness or side effect concerns with your provider and home care team. Only take opioids as prescribed, do not share your medications, and take proper precautions in storing and properly disposing of opioids once no longer needed. Possible side effects of opioid medication including sedation, decreased rate of breathing, and constipation. Report over sedation to prescribing provider and practice deep breathing techniques every hour while awake. Prevent constipation by increasing water and fiber intake, increasing activity as tolerated, and use stool softener(s) as prescribed. Antiplatelet- educated on high risk medication Problem:High Risk Medications Goal:Patient/caregiv er will teach back high risk medication side effect and precaution education Completed patient educated on taking medication(s) as prescribed by provider. Do not stop medication or alter doses without speaking with your provider. Discuss medication effectiveness or side effect concerns with your provider and home care team. Discuss all medications you are taking, even [id number] medicines, with your provider and pharmacist since many drugs can interact with antiplatelet medications. If you forget to take a dose, DO NOT take a double dose. Take the missed dose as soon as possible on the same day. DO NOT take a double dose the next day to make up for the missed dose. Watch for signs of abnormal or excessive bleeding and bruising (refer to Bleeding Precautions education). Call your health care provider right away if you suspect something is wrong. Deliver NOMNC Problem:Discharge Goal:Manage discharge planning Completed Delivered NOMNC on 10/31/23 for discharge date of 11/02/23. Instruct on final discharge plan and deliver discharge instructions Problem:Discharge Goal:Manage discharge planning Completed Delivered Discharge plan: Discharge plan discussed with patient for plan for transition to: outpatient therapy Instruct on ongoing discharge plan Problem:Discharge Goal:Manage discharge planning Completed Ongoing Discharge plan: Discharge plan discussed with patient including frequency and duration for home PT and plan for transition to: outpatient therapy. Instruct on importance of follow-up appts and continued monitoring with medical provider &/or chronic care clinic Problem:Discharge Goal:Manage discharge planning Completed Education provided on importance of compliance with follow-up appointment(s). Recommendations: appointment scheduled for 11/06/23 Physical Therapy Therapeutic Exercises Problem:PT Impaired muscle performance and/or ROM Goal:Improved Muscle Performance and/or ROM Completed Patient is independent with HEP and performs daily Physical Therapy Transfer Training Problem:PT Impaired mobility Goal:Improved Transfers Completed Transfers are independent. Physical Therapy Bed Mobility Training Problem:PT Impaired mobility Goal:Improved Bed Mobility Completed Bed mobility is independent. Physical Therapy Stair Training Problem:PT Impaired gait Goal:Improved Stair Climbing Completed Patient is independent with with garage home entry steps using rail and cane. Physical Therapy Gait Training Problem:PT Impaired gait Goal:Improved Gait Completed Ambulates 150 ft+ with wheeled walker independently. Physical Therapy Balance Training Problem:PT Impaired balance Goal:Improved Balance Completed Developed, implemented, and instructed patient on standing balance exercises including TUG score of 14 sec. Instruct on orthopedic precautions and weight bearing restrictions Description: Orthopedic precautions including right posterior hip: no hip flexion > 90 degrees and no crossing LE's./midline with RLE; maintain RLE neutral alignment, no pivoting Weight bearing restrictions include: WBAT of involved extremity. Problem:PT Orthopedic Condition Goal:Manage Orthopedic Condition Completed patient and caregiver instructed on Orthopedic precautions including right posterior hip: no hip flexion > 90 degrees and no crossing LE's./midline with RLE; maintain RLE neutral alignment, no pivoting Weight bearing restrictions include: WBAT of involved extremity.. Instruct on management of edema Problem:PT Orthopedic Condition Goal:Manage Orthopedic Condition Completed Instruct patient on management of edema including elevation of right LE above the level of the heart, ice, medication adherence strategies and benefits of activity. Physical therapy to perform surgical incision/wound management Description: Removal of post-op dressing on POD 7 (10/23/23). If no drainage is present, leave open to air; if drainage is present, cover with clean dressing and contact provider and PT manager of case. Problem:PT Orthopedic Condition Goal:Manage Orthopedic Condition Completed Intervention completed 10/23/23. Instruct on self-management of post surgical and/or non-surgical orthopedic intervention Problem:PT Orthopedic Condition Goal:Manage Orthopedic Condition Completed patient instructed on managagement of orthopedic condition, incision care, measures to avoid skin breakdown, staying well hydrated, eating foods with high protein, signs and symptoms of infection, signs and symptoms of DVT/PE, follow provider guidance for showering , instructed on when to call provider and instructed on when to call 911. Instruct and educate on knowledge deficits Problem:PT Learning Assessment Goal:Demonstrate understanding of education Completed patient verbalize and/or demonstrate understanding of physical therapy education including orthopedic condition management, weight bearing precautions, surgical precautions, nutrition, fall prevention strategies, home safety, integumentary and incision/wound care management, infection control precautions, functional activity and home exercise program. Education methods include: verbal cues. Further education required to improve knowledge and compliance with orthopedic condition management, weight bearing precautions, surgical precautions, nutrition, fall prevention strategies, home safety, integumentary and incision/wound care management, infection control precautions, functional activity and home exercise program. . Instruct on signs, symptoms, and management of secondary pulmonary disease Problem:PT Pulmonary Disease Goal:Manage Secondary Pulmonary Disease Completed patient and caregiver instructed on use of zone sheet, use of RPE scale, exercise and activity guidelines and breathing management. documented in this encounter [facility] for referral (narrative)* Consultation (Routine) - Pending Review Specialty Diagnoses / Procedures Referred By Yessica t Referred To Contact Gastroenterology Diagnoses LLQ abdominal pain Procedures NM OFFICE/OUTPATIENT [facility] 60 MINUTES Fernando Brady, MINNA - [employer] [address] [place] [address] [facility] [address] [place] [address] Referral ID Status Reason Start Date Expiration Date Visits Requested Visits Authorized [id number] Pending Review Specialty Services Required 09/27/2023 09/26/2024 1 1 [facility] for referral (narrative)* Diagnostic Procedure Only (Routine) - Pending Review Specialty Diagnoses / Procedures Referred By Contac t Referred To Contact XR IMAGING Diagnoses S/P total right hip arthroplasty Procedures XR PELVIS 1V AP RADIOLOGIC EXAMINATION PELVIS 1/2 VIEWS Rubén Jimenes MD [address] [place] [address] [place] [address] Referral ID Status Reason Start Date Expiration Date Visits Requested Visits Authorized [id number] Pending Review Auto-Generat ed Referral 10/30/2023 11/28/2024 1 1 [facility] for referral (narrative)* Diagnostic Procedure Only (Routine) - New Request Specialty Diagnoses / Procedures Referred By Contac t Referred To Contact XR IMAGING Diagnoses Sacral spondylosis Spondylolisthesis of lumbar region Procedures XR LUMBAR MOTION 4V AP/LAT/ FLEX/EXT RADEX SPINE LUMBOSACRAL MINIMUM 4 VIEWS Lavern Hidalgo APRN.CNP [address] [place] [address] [place] [address] Referral ID Status Reason Start Date Expiration Date Visits Requested Visits Authorized [id number] New Request Auto-Generat ed Referral 06/12/2024 07/12/2025 1 1 [facility] for referral (narrative)* Diagnostic Procedure Only (Routine) - Closed Specialty Diagnoses / Procedures Referred By Contac t Referred To Contact XR IMAGING Diagnoses Sacral spondylosis Spondylolisthesis of lumbar region Procedures XR LUMBAR MOTION 4V AP/LAT/ FLEX/EXT RADEX SPINE LUMBOSACRAL MINIMUM 4 VIEWS Lavern Hidalgo APRN.[employer] [address] [place] [address] [place] [address] Referral ID Status Reason Start Date Expiration Date V isits Requested Visits Authorized [id number] Closed Auto-Generate d Referral 06/12/2024 07/12/2025 1 1 [facility] for visit Narrative* Diagnostic Procedure Only (Routine) - Closed Specialty Diagnoses / Procedures Referred By Yessica t Referred To Contact XR IMAGING Diagnoses Sacral spondylosis Spondylolisthesis of lumbar region Procedures XR LUMBAR MOTION 4V AP/LAT/ FLEX/EXT RADEX SPINE LUMBOSACRAL MINIMUM 4 VIEWS Lavern Hidalgo APRN.SUPERVISOR POWDERED [employer]AL [address] [place] [address] [place] [address] Referral ID Status Reason Start Date Expiration Date V isits Requested Visits Authorized [id number] Closed Auto-Generate d Referral 06/12/2024 07/12/2025 1 1 [facility] Summary Purpose Family History No Family History Records FoundNo Family History Records FoundNo Family History Records FoundNo Family History Records FoundNo Family History Records FoundNo Family History Records Found Advance Directives Documents on File Type Date Recorded Patient Base Draw Operator Expl anation Advance Directives and Living Will Power of Cement Sprayer Helper Latest Code Status on File Code Status Date Activated Date Inactivated Comments Full Code 03/01/2019 5:25 PM 03/04/2019 5:35 PM Documents on File Type Date Recorded Patient Base Draw Operator Expl anation ACP-Advance Directive ACP-Power of Cement Sprayer Helper Latest Code Status on File Code Status Date Activated Date Inactivated Comments Full Code 10/15/2021 2:46 PM Full Code 03/01/2019 5:25 PM 03/04/2019 5:35 PM Latest Code Status on File Code Status Date Activated Date Inactivated Comments Full Code 06/19/2022 9:46 PM Full Code 01/13/2022 8:13 PM 01/15/2022 8:03 PM Full Code 10/15/2021 2:46 PM 10/17/2021 8:49 PM Healthcare Agents on File Name Relationship Healthcare Agent [facility] p Communication Deja Cha Spouse Primary Decision Maker Latest Code Status on File Code Status Date Activated Date Inactivated Comments Full Code 06/23/2023 11:20 PM 07/10/2023 4:48 PM Latest Code Status on File Code Status Date Activated Date Inactivated Comments Full Code 06/23/2023 11:20 PM 07/10/2023 4:48 PM Latest Code Status on File Code Status Date Activated Date Inactivated Comments Full Code 10/19/2023 7:44 AM Latest Code Status on File Code Status Date Activated Date Inactivated Comments Full Code 10/19/2023 7:44 AM Latest Code Status on File Code Status Date Activated Date Inactivated Comments Full Code 11/04/2023 4:38 AM Code Status History Code Status Date Activated Date Inactivated Comments Full Code 06/23/2023 11:20 PM 07/10/2023 4:48 PM Latest Code Status on File Code Status Date Activated Date Inactivated Comments Full Code 11/04/2023 4:38 AM 11/10/2023 9:10 PM Code Status History Code Status Date Activated Date Inactivated Comments Full Code 06/23/2023 11:20 PM 07/10/2023 4:48 PM Date Activated Date Inactivated Comments 10/19/2023 7:44 AM Latest Code Status on File Code Status Date Activated Date Inactivated Comments Full Code 11/04/2023 4:38 AM 11/10/2023 9:10 PM Documents on File Type Date Recorded Patient Base Draw Operator Expl anation Power of Cement Sprayer Helper 02/09/2024 5:53 AM Advance Directives and Livin g Will 02/09/2024 5:52 AM Latest Code Status on File Code Status Date Activated Date Inactivated Comments Full Code 02/09/2024 6:12 AM 02/16/2024 8:26 PM Code Status History Code Status Date Activated Date Inactivated Comments Full Code 11/04/2023 4:38 AM 11/10/2023 9:10 PM Full Code 06/23/2023 11:20 PM 07/10/2023 4:48 PM Documents on File Type Date Recorded Patient Base Draw Operator Expl anation Power of Cement Sprayer Helper 02/09/2024 5:53 AM Advance Directives and Peri garcia Will 02/09/2024 5:52 AM Latest Code Status on File Code Status Date Activated Date Inactivated Comments Full Code 02/09/2024 6:12 AM 02/16/2024 8:26 PM Code Status History Code Status Date Activated Date Inactivated Comments Full Code 11/04/2023 4:38 AM 11/10/2023 9:10 PM Full Code 06/23/2023 11:20 PM 07/10/2023 4:48 PM Date Activated Date Inactivated Comments 02/09/2024 6:12 AM 02/16/2024 8:26 PM Date Activated Date Inactivated Comments 11/04/2023 4:38 AM 11/10/2023 9:10 PM Date Activated Date Inactivated Comments 06/23/2023 11:20 PM 07/10/2023 4:48 PM Date Activated Date Inactivated Comments 10/19/2023 7:44 AM Discharge Instructions * Instructions* Yue Foster PA-C - 11/19/2019 Call your doctor today to schedule a follow-up appointment and schedule outpatient cardiac stress test. Take prednisone until gone. Use albuterol inhaler as needed for cough/wheeze. Return to the emergency department sooner for any new or worsening symptoms. * Attachments The following attachments cannot be sent through Care Everywhere. * COPD Exacerbation Plan ([place]an) * Chest Pain ([place]) documented in this encounter* Instructions* Cristo Tom PA-C - 07/17/2020 Follow-up with PCP in 1-3 days. Return to the ED for new or worsened symptoms. * Attachments The following attachments cannot be sent through Care Everywhere. * Chest Pain ([place]an) * Chest Pain: Musculoskeletal ([place]) documented in this encounter Assessments Diagnosis COPD exacerbation (HCC)- Primary Obstructive chronic bronchitis with exacerbation Diagnosis Chest pain, unspecified type Medications Administered Section Inactive Administered Medications - up to 3 most recent administrations Medication Order MAR Action Action Date Dose Rate Site bupivacaine (PF) 0.5 % (5 mg/mL) 4 mL injection 4 mL, Injection - FOR ORTHO USE ONLY, ONE TIME INJECTION, 1 dose, Starting on Samantha 05/19/22 at 1038, Until Samantha 05/19/22 at 1038 Given 05/19/2022 10:38 AM EDT 4 mL Shoulder, Left triamcinolone acetonide 80 mg injection (KeNALog 40) 80 mg, Injection - FOR ORTHO USE ONLY, ONE TIME INJECTION, 1 dose, Starting on Samantha 05/19/22 at 1038, Until Samantha 05/19/22 at 1038 Given 05/19/2022 10:38 AM EDT 80 mg Shoulder, Left Inactive Administered Medications - up to 3 most recent administrations Medication Order MAR Action Action Date Dose Rate Site bupivacaine (PF) 0.25 % (2.5 mg/mL) 4 mL injection (SENSORCAINE MPF) 4 mL, Injection - FOR ORTHO USE ONLY, ONE TIME INJECTION, 1 dose, Starting on Samantha 10/06/22 at 1409, Until Samantha 10/06/22 at 1409 Given 10/06/2022 2:09 PM EST 4 mL Shoul jc, Left triamcinolone acetonide 80 mg injection (KeNALog 40) 80 mg, Injection - FOR ORTHO USE ONLY, ONE TIME INJECTION, 1 dose, Starting on Samantha 10/06/22 at 1409, Until Samantha 10/06/22 at 1409 Given 10/06/2022 2:09 PM EST 80 mg Shoul jc, Left Inactive Administered Medications - up to 3 most recent administrations Medication Order MAR Action Action Date Dose Rate Site BUPivacaine (PF) 0.25 % (2.5 mg/mL) 4 mL injection (SENSORCAINE MPF) 4 mL, Injection - FOR ORTHO USE ONLY, ONE TIME INJECTION, 1 dose, Starting on Mon04/20/23 at 1135, Until Samantha 04/20/23 at 1135 Given 04/20/2023 11:35 AM EDT 4 mL Shoulder, Left triamcinolone acetonide 80 mg injection (KeNALog 40) 80 mg, Injection - FOR ORTHO USE ONLY, ONE TIME INJECTION, 1 dose, Starting on Mon04/20/23 at 1135, Until Samantha 04/20/23 at 1135 Given 04/20/2023 11:35 AM EDT 80 mg Shoulder, Left Reason for Referral Specialty Diagnoses / Procedures Referred By Yessica erazo Referred To Contact Radiology Diagnoses Pain in right hip Procedures MR hip right wo Leonid Dee MD [address] [place] [address] Referral ID Status Reason Start Date Expiration Date Visits Re quested Visits Authorized [id number] Closed 01/19/2023 07/18/2023 1 1 Specialty Diagnoses / Procedures Referred By Contac t Referred To Contact Radiology Diagnoses Sigmoid diverticulitis Intra-abdominal abscess (CMS/HCC) (HCC) Procedures CT abdomen pelvis w contrast Helen Covington PA-C [address] [place] [address] Referral ID Status Reason Start Date Expiration Date V isits Requested Visits Authorized [id number] Pending Review 07/10/2023 07/09/2024 1 1 Referral ID Status Reason Start Date Expiration Date Visits Re quested Visits Authorized [id number] Closed 07/10/2023 07/09/2024 1 1 Additional Source Comments INFORMATION SOURCE (unrecogn ized section and content) DATE CREATED AUTHOR 01/10/2019 [facility] DATE CREATED AUTHOR AUTHOR'S ORGANIZ ATION 07/10/2022 [facility] DATE CREATED AUTHOR AUTHOR'S ORGANIZ ATION 10/19/2023 [facility] DATE CREATED AUTHOR AUTHOR'S ORGANIZ ATION 10/21/2023 [facility] DATE CREATED AUTHOR AUTHOR'S ORGANIZ ATION 03/22/2024 [facility] DATE CREATED AUTHOR AUTHOR'S ORGANIZ ATION 06/27/2024 [facility] Reason for Visit (unrecogniz ed section and content) Reason Comments Shortness of Breath Chest Pain Cough Reason Comments Pleurisy Reason Comments Shoulder Pain Left Reason Comments Abdominal Pain Reason Comments Pain Pain 4/10 pain left shoul jc requesting injection Reason Onset Date Comments Shortness of Breath 06/19/2022 Chest Pain 06/19/2022 Reason Comments Established Patient Reason Comments Appointment Reason Comments Abdominal Pain Pt. States that she was recently diagnosed with diverticulitis and is having a flare up but the abx she was prescribed are not helping. N/V/D and severe generalized abd. pn since Monday. Specialty Diagnoses / Procedures Referred By Contac t Referred To Contact Diagnoses Diverticulitis Generalized abdominal pain Procedures K57.92 Thu Hogue MD [address] [place] [address] [facility] [address] [place] [address] Referral ID Status Reason Start Date Expiration Date Visits Re quested Visits Authorized [id number] 1 1 Reason Onset Date Comments Hospital Follow-up 07/11/2023 Reason Comments Diverticulitis F/U Diverticulitis Specialty Diagnoses / Procedures Referred By Yessica t Referred To Contact Radiology Diagnoses Sigmoid diverticulitis Intra-abdominal abscess (CMS/HCC) (HCC) Procedures CT abdomen pelvis w contrast Helen Covington PA-C [address] [place] [address] Referral ID Status Reason Start Date Expiration Date Visits Re quested Visits Authorized [id number] Closed 07/10/2023 07/09/2024 1 1 Reason Comments Hospital Follow-up Hospital follow up f or diverticulitis. Reason Comments Appointment Requesting sooner ap pt Reason Comments Follow-up F/U diverticulitis, clearance for hip replacement Reason Comments Home Care PT SOC Reason Comments Home Care Pain and possible fa ll Reason Comments Post Op Reason Comments Refill Request Specialty Diagnoses / Procedures Referred By Yessica erazo Referred To Contact Diagnoses Abdominal pain, generalized Diverticulitis of colon Procedures . Adria Lopez MD [address] [facility] [address] [place] [address] [facility] [address] [place] [address] Referral ID Status Reason Start Date Expiration Date Visits Re quested Visits Authorized [id number] 1 1 Reason Comments Abdominal Pain Pt c/o upper abd pinky n that began today. States that she had right hip surgery two weeks ago, has been getting around with a walker at home. C/o diarrhea & constipation. +nausea. Pt has been taking pain medication since surgery, states that she stopped taking her stool softener. Specialty Diagnoses / Procedures Referred By Yessica erazo Referred To Contact Diagnoses Abdominal pain, generalized Diverticulitis of colon Procedures . 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 No recent falls or injuries. Follow Up Has some pain by the end of the day, especially with steps. No recent falls or injuries. Post Op Has some pain by the end of the day, especially with steps. No recent falls or injuries. Hip Replacement Has some pain by the end of the day, especially with steps. No recent falls or injuries. Pain Has some pain by the end of the day, especially with steps. No recent falls or injuries. Specialty Diagnoses / Procedures Referred By Contbrittani t Referred To Contact Diagnoses Colostomy in place ([facility]) ([facility]) Procedures NM CLSR NTRSTM LG/SM RESCJ & COLORECTAL ANASTOMOSIS Adria Lopez MD [address] [place] [address] Referral ID Status Reason Start Date Expiration Date Visits Re quested Visits Authorized [id number] 01/05/2024 1 1 Reason Onset Date Comments Post-op Problem 02/20/2024 Po reversal Monroy romo 02-15 Reason Comments Post-op PO Ronni Reversal 02/15 Reason Comments Vaginal Discharge Reason Comments Results Reason Comments Established Patient Ordered Prescriptions (unrec ognized section and content) Prescription Sig Dispensed Refills Start Date End Da te oxyCODONE-acetaminophen (PERCOCET) 5-325 MG per tabletIndications:Cervi ronal radiculopathy Take 1 tablet by mouth every 6 hours as needed for Pain for up to 3 days. 12 tablet 0 04/10/2021 04/13/2021 lidocaine (LIDODERM) 5 % Place 1 patch onto the skin daily for 10 days 12 hours on, 12 hours off. May substitute 4mg patches if 5mg unavailable 10 patch 1 04/10/2021 04/20/2021 cyclobenzaprine (FLEXERIL) 10 MG tablet Take 1 tablet by mouth 3 times daily as needed for Muscle spasms 21 tablet 0 04/10/2021 Prescription Sig Dispensed Refills Start Date End Da te docusate sodium (COLACE) 100 MG capsule Take 1 capsule by mouth 2 times daily for 15 days 30 capsule 0 10/17/2021 11/01/2021 polyethylene glycol (GLYCOLAX) 17 GM/SCOOP powder Take 17 g by mouth daily for 7 days 1530 g 1 10/17/2021 10/24/2021 scopolamine (TRANSDERM-SCOP) transdermal patch Place 1 patch onto the skin every 72 hours 1 patch 0 10/18/2021 meclizine (ANTIVERT) 12.5 MG tablet Take 1 tablet by mouth 3 times daily as needed for Dizziness or Nausea 30 tablet 0 10/17/2021 10/27/2021 Prescription Sig Dispensed Refills Start Date End Da te predniSONE (DELTASONE) 10 MG tablet Take 4 tablets by mouth daily for 3 days, THEN 3 tablets daily for 3 days, THEN 2 tablets daily for 3 days, THEN 1 tablet daily for 3 days. 30 tablet 0 06/23/2022 07/05/2022 doxycycline hyclate (VIBRAMYCIN) 100 MG capsule Take 1 capsule by mouth in the morning and 1 capsule in the evening. Do all this for 5 days. 10 capsule 0 06/22/2022 06/27/2022 amLODIPine (NORVASC) 5 MG tablet Take 1 tablet by mouth daily 30 tablet 3 06/23/2022 Scheduled Active and Recently Administ ered Medications (unrecognized section and content) Medication Order 04/08/2021 04/09/2021 04/10/2021 cyclobenzaprine (FLEXERIL) tablet 10 mg (COMPLETED) 10 mg, Oral, ONCE, On 7/24/21 at 1345, For 1 dose 1400 (Given - Provid er: Kaylie Fisher RN) oxyCODONE-acetaminophen (PERCOCET) 5-325 MG per tablet 1 tablet (COMPLETED) 1 tablet, Oral, ONCE, On 04/10/21 at 1345, For 1 dose 1400 (Given - Provid er: Kaylie Fisher RN) Scheduled Medication Order 10/15/2021 10/16/2021 10/17/2021 0.9 % sodium chloride bolus (COMPLETED) 1,000 mL (16.3 mL/kg), IntraVENous, at 500 mL/hr, Administer over 2 Hours, ONCE, On Mon10/15/21 at 1035, For 1 dose 1214 (New Bag - Provider: Nahtaly Hebert, RN)1436 (Stopped - Provider: Nathaly Hebert RN) enoxaparin (LOVENOX) injection 40 mg 40 mg, SubCUTAneous, DAILY, First dose on Mon10/15/21 at 1447 1853 (Not Given - Provider: Ramone Das RN - Reason: Patient/family refused) 0905 (Not Given - Provider: Frieda Beck RN - Reason: Patient/family refused) 0825 (Not Given - Provider: Frieda Beck, QUETA - Reason: Patient/family refused) gabapentin (NEURONTIN) capsule 300 mg 300 mg, Oral, 2 TIMES DAILY, First dose on Mon10/16/21 at 0900 0901 (Given - Provider: Frieda Beck, QUETA)2016 (Given - Provider: Brandi Bay RN) 0822 (Given - Provider: Frieda Beck, QUETA)2100 (Due) labetalol (NORMODYNE;TRANDATE) injection 5 mg (COMPLETED) 5 mg, IntraVENous, ONCE, On Mon10/15/21 at 2215, For 1 dose 2211 (Given - Provider: Brandi Bay, QUETA) LORazepam (ATIVAN) tablet 0.5 mg (COMPLETED) 0.5 mg, Oral, ONCE, On Mon10/17/21 at 1000, For 1 dose, 15-30 mins before the MRI 0948 (Given - Provider: Frieda Beck, QUETA) morphine sulfate (PF) injection 4 mg (COMPLETED) 4 mg, IntraVENous, ONCE, On Mon10/15/21 at 1035, For 1 dose, If oral and IV narcotics ordered, use oral first and only use IV if oral is ineffective or cannot take oral. Do Not give oral and IV within 1 hour of each other unless specifically ordered. 1211 (Given - Provider: Nathaly Hebert RN) ondansetron (ZOFRAN) injection 4 mg (COMPLETED) 4 mg, IntraVENous, ONCE, On Mon10/15/21 at 1035, For 1 dose 1211 (Given - Provider: Nathaly Hebert RN) scopolamine (TRANSDERM-SCOP) transdermal patch 1 patch 1 patch, TransDERmal, Administer over 72 Hours, EVERY 72 HOURS, First dose on Mon10/15/21 at 1400, 1.5 mg patch delivers 1 mg over 3 days. Apply patch to hairless area behind the ear. 185 (Patch Applied - Provider: Ramone Das RN) sennosides-docusate sodium (SENOKOT-S) 8.6-50 MG tablet 2 tablet (COMPLETED) 2 tablet, Oral, ONCE, On Mon10/15/21 at 1341, For 1 dose 185 (Given - Provider: Ramone Das RN) sodium chloride flush 0.9 % injection 3 mL(Linked Group 1) 3 mL, IntraVENous, EVERY 8 HOURS, First dose on Mon10/15/21 at 1035, Flush line with 3-5 mL 1214 (Given - Provider: Nathaly Hebert RN)1853 (Not Given - Provider: Ramone Das RN - Reason: IV Fluid Infusing) 0235 (Not Given - Provider: Brandi Bay RN - Reason: IV Fluid Infusing)1137 (Not Given - Provider: Frieda Beck RN - Reason: Order parameters not met)1900 (Not Given - Provider: Brandi Bay RN - Reason: IV Fluid Infusing) 0307 (Given - Provider: Brandi Bay RN)0942 (Not Given - Provider: Frieda Beck RN - Reason: Order parameters not met)1835 (Due) sodium chloride flush 0.9 % injection 5-40 mL 5-40 mL, IntraVENous, EVERY 12 HOURS SCHEDULED (2 times per day), First dose on Mon10/15/21 at 2100, For Line Patency: Peripheral IV = 5 mL; Midline or Central Line = 10 mL/lumen. If following IV push medication, administer flush at same rate as the IV push. Flush volume is determined by type of infusion therapy being given. For non-viscous solutions use: Peripheral IV = 5 mL Midline or Central Line = 10 mL/lumen For viscous solutions (i.e. blood components, parenteral nutrition, contrast media, or after obtaining blood sample) use: Peripheral IV = 10 mL Midline or Central Line = 20 mL/lumen 2211 (Given - Provider: Brandi Bay RN) 09 (Given - Provider: Frieda Beck RN)2016 (Not Given - Provider: Brandi Bay RN - Reason: IV Fluid Infusing) 08 (Given - Provider: Frieda Beck RN)2099 (Due) Continuous Medication Order 10/15/2021 10/16/2021 10/17/2021 0.9 % sodium chloride infusion IntraVENous, at 100 mL/hr, CONTINUOUS, Starting on Mon10/15/21 at 1447 1449 (New Bag - Provider: Nathaly Hebert RN) 0128 (New Bag - Provider: Brandi Bay RN) 0021 (Stopped - Provider: Brandi Bay RN - Comment: saline locked per order) PRN Medication Order 10/15/2021 10/16/2021 10/17/2021 0.9 % sodium chloride infusion 25 mL, IntraVENous, at 100 mL/hr, PRN, If patient receiving piggyback infusions without ordered maintenance IV fluids or with frequent/long duration piggyback infusions, Starting on Mon10/15/21 at 1444, Administer at the same rate as the piggyback being infused. acetaminophen (TYLENOL) suppository 650 mg(Linked Group 2) 650 mg, Rectal, EVERY 6 HOURS PRN, Pain Mild (1-3), Fever, For temp greater than 100.4 F (38 C), Starting on Mon10/15/21 at 1444, Administer if oral route cannot be used. acetaminophen (TYLENOL) tablet 650 mg(Linked Group 2) 650 mg, Oral, EVERY 6 HOURS PRN, Pain Mild (1-3), Fever, For temp greater than 100.4 F (38 C), Starting on Mon10/15/21 at 1444, Maximum dose of acetaminophen is 4000 mg from all sources in 24 hours. albuterol sulfate HFA 108 (90 Base) MCG/ACT inhaler 2 puff 2 puff, Inhalation, EVERY 4 HOURS PRN, Wheezing, Starting on Mon10/15/21 at 1443 clonazePAM (KLONOPIN) tablet 0.5 mg 0.5 mg, Oral, 2 TIMES DAILY PRN, Anxiety, Starting on Mon10/15/21 at 1443 0901 (Given - Provider: Frieda Beck, QUETA) 0825 (Given - Provider: Frieda Beck, QUETA) fleet rectal enema 1 enema 1 enema, Rectal, DAILY PRN, Constipation, Starting on Mon10/15/21 at 1445, First line therapy for constipation 1856 (Given - Provider: Ramone Das RN) 1022 (Given - Provider: Frieda Beck, QUETA) gadobutrol (GADAVIST) injection 6 mL (COMPLETED) 6 mL, IntraVENous, IMG ONCE PRN, Other, Starting on Mon10/17/21 at 1015, For 1 dose 1024 (Given - Provider: Luna Dyer) iopamidol (ISOVUE-370) 76 % injection 75 mL (COMPLETED) 75 mL, IntraVENous, IMG ONCE PRN, Other, Starting on Mon10/15/21 at 1044, For 1 dose 1151 (Given - Provider: Mitzi Brady) magnesium hydroxide (MILK OF MAGNESIA) 400 MG/5ML suspension 30 mL 30 mL, Oral, DAILY PRN, Constipation, Starting on Mon10/15/21 at 1339, Mix with prune juice 1352 (Given - Provider: Nathaly Hebert RN) 0901 (Given - Provider: Frieda Beck, QUETA) 0825 (Given - Provider: Frieda Beck, QUETA) meclizine (ANTIVERT) tablet 12.5 mg 12.5 mg, Oral, 3 TIMES DAILY PRN, Dizziness, Starting on Mon10/15/21 at 1446 ondansetron (ZOFRAN) injection 4 mg(Linked Group 3) 4 mg, IntraVENous, EVERY 6 HOURS PRN, Nausea, Vomiting, Starting on Mon10/15/21 at 1444, Administer if oral route cannot be used. ondansetron (ZOFRAN-ODT) disintegrating tablet 4 mg(Linked Group 3) 4 mg, Oral, EVERY 8 HOURS PRN, Nausea, Vomiting, Starting on Mon10/15/21 at 1444 sodium chloride flush 0.9 % injection 5-40 mL 5-40 mL, IntraVENous, PRN, Line Care, After every IV line use, Starting on Mon10/15/21 at 1444, For Line Patency: Peripheral IV = 5 mL; Midline or Central Line = 10 mL/lumen. If following IV push medication, administer flush at same rate as the IV push. Flush volume is determined by type of infusion therapy being given. For non-viscous solutions use: Peripheral IV = 5 mL Midline or Central Line = 10 mL/lumen For viscous solutions (i.e. blood components, parenteral nutrition, contrast media, or after obtaining blood sample) use: Peripheral IV = 10 mL Midline or Central Line = 20 mL/lumen Linked Groups Order Group 1: Saline lock IV (COMPLETED) Routine, CONTINUOUS, Starting on Mon10/15/21 at 1045, Until Specified And sodium chloride flush 0.9 % injection 3 mLJump to med 3 mL, IntraVENous, EVERY 8 HOURS, First dose on Mon10/15/21 at 1035
Flush line with 3-5 mL
Group 2: acetaminophen (TYLENOL) tablet 650 mgJump to med 650 mg, Oral, EVERY 6 HOURS PRN, Pain Mild (1-3), Fever, For temp greater than 100.4 F (38 C), Starting on Mon10/15/21 at 1444
Maximum dose of acetaminophen is 4000 mg from all sources in 24 hours.
Or acetaminophen (TYLENOL) suppository 650 mgJump to med 650 mg, Rectal, EVERY 6 HOURS PRN, Pain Mild (1-3), Fever, For temp greater than 100.4 F (38 C), Starting on Mon10/15/21 at 1444
Administer if oral route cannot be used.
Group 3: ondansetron (ZOFRAN-ODT) disintegrating tablet 4 mgJump to med 4 mg, Oral, EVERY 8 HOURS PRN, Nausea, Vomiting, Starting on Mon10/15/21 at 1444 Or ondansetron (ZOFRAN) injection 4 mgJump to med 4 mg, IntraVENous, EVERY 6 HOURS PRN, Nausea, Vomiting, Starting on Mon10/15/21 at 1444
Administer if oral route cannot be used.
Scheduled Medication Order 06/20/2022 06/21/2022 06/22/2022 albuterol (PROVENTIL) nebulizer solution 2.5 mg (CANCELED) 2.5 mg, Nebulization, 4 TIMES DAILY, First dose on Mon06/19/22 at 2215, Until Discontinued, Initiate RT Bronchodilator Protocol: Yes 1004 (Given - Provider: Roz Bradley RCP)1242 (Given - Provider: Roz Bradley RCP)1600 (Due)2150 (Not Given - Provider: Zachery Desai RCP - Reason: Other - Comment: duplicate order) 0914 (Canceled Entry - Provider: Josephine Davis RN) amLODIPine (NORVASC) tablet 2.5 mg (CANCELED) 2.5 mg, Oral, DAILY, First dose on Mon06/21/22 at 0915, Until Discontinued 1036 (Given - Provider: Josephine Davis RN) amLODIPine (NORVASC) tablet 5 mg 5 mg, Oral, DAILY, First dose (after last modification) on Mon06/22/22 at 0900, Until Discontinued 0905 (Given - Provider: Gagan Metz RN) doxycycline hyclate (VIBRAMYCIN) capsule 100 mg 100 mg, Oral, EVERY 12 HOURS, 10 doses, First dose on Mon06/19/22 at 2215, Last dose on Mon06/24/22 at 1015, Antimicrobial Indications: COPD Exacerbation, COPD exacerbation duration of therapy: 5 days, This medication can interact with tube feedings (TF)- obtain MD order to manage. Recommend holding TF for 1 h before and 2 h after dose. Take 1 h before or 2 h after dairy, calcium, iron, magnesium, aluminum or zinc. 1108 (Given - Provider: Maira Juarez RN)2129 (Given - Provider: Wm Pierre RN) 1036 (Given - Provider: Josephine Davis RN)2200 (Given - Provider: Wm Pierre RN) 1023 (Given - Provider: Gagan Metz RN)2215 (Due) guaiFENesin (MUCINEX) extended release tablet 600 mg 600 mg, Oral, 2 TIMES DAILY, First dose on Mon06/19/22 at 2215, Until Discontinued, Do not crush or break. 0820 (Given - Provider: Maira Juarez RN)2128 (Given - Provider: Wm Pierre RN) 0823 (Given - Provider: Priscila Nicolas RN)2034 (Given - Provider: Wm Pierre RN) 09 (Given - Provider: Gagan Metz RN)2100 (Due) HYDROmorphone (DILAUDID) injection 0.25 mg (COMPLETED) HYDROmorphone (DILAUDID) 1.5mg IV is equivalent to morphine 10mg IV, 0.25 mg, IntraVENous, ONCE, 1 dose, On Mon06/20/22 at 2145, If oral and IV narcotics ordered, use oral first and only use IV if oral is ineffective or cannot take oral. Do Not give oral and IV within 1 hour of each other unless specifically ordered. 2129 (Given - Provider: Wm Pierre RN) insulin lispro (HUMALOG) injection vial 0-4 Units 0-4 Units, SubCUTAneous, 3 TIMES DAILY WITH MEALS, First dose on Mon06/20/22 at 1300, Until Discontinued, Corrective Low Dose Algorithm Glucose: Dose: 70-199 No Insulin 200-249 1 Unit 250-299 2 Units 300-349 3 Units Over 349 4 Units and notify physician 1317 (Not Given - Provider: Maira Juarez RN - Reason: Medication not available)1723 (Not Given - Provider: Maira Juarez RN - Reason: Order parameters not met) 0818 (Not Given - Provider: Priscila Nicolas RN - Reason: Order parameters not met)1211 (Not Given - Provider: Priscila Nicolas RN - Reason: Other - Comment: pt does not take insulin)1700 (Due) 0816 (Not Given - Provider: Gagan Metz RN - Reason: Order parameters not met)1205 (Not Given - Provider: April Sims RN - Reason: Other - Comment: pt refused BGT)1700 (Due) insulin lispro (HUMALOG) injection vial 0-4 Units 0-4 Units, SubCUTAneous, NIGHTLY, First dose on Mon06/20/22 at 2100, Until Discontinued, If continuous tube feedings/TPN/NPO, give correction dose based on result, no reduction in dose. If eating or bolus tube feeding: Corrective Bedtime Algorithm Glucose: Dose: 70-299 No Insulin 300-349 4 Units Over 349 4 Units and notify physician 2040 (Not Given - Provider: Wm Pierre RN - Reason: Order parameters not met) 2033 (Not Given - Provider: Wm Pierre RN - Reason: Order parameters not met) 2099 (Due) ipratropium-albuterol (DUONEB) nebulizer solution 1 ampule (CANCELED) 1 ampule, Inhalation, EVERY 4 HOURS WHILE AWAKE, First dose on Mon06/20/22 at 1600, Until Discontinued, Initiate RT Bronchodilator Protocol: Yes - Inpatient Protocol 1600 (Due)2155 (Given - Provider: Zachery Desai RCP) 0921 (Given - Provider: Dat Boyer RCP)1321 (Not Given - Provider: Dat Boyer RCP - Reason: Patient not available)1550 (Given - Provider: Dat Boyer RCP)2146 (Given - Provider: Isa Childers RCP) 0936 (Given - Provider: Campos Mann RCP) ipratropium-albuterol (DUONEB) nebulizer solution 1 ampule 1 ampule, Inhalation, 2 TIMES DAILY, First dose (after last modification) on Mon06/22/22 at 2000, Until Discontinued, Initiate RT Bronchodilator Protocol: Yes - Inpatient Protocol 1999 (Due) ketorolac (TORADOL) injection 15 mg Ketorolac is contraindicated in patients with advanced renal impairment and in patients at risk of renal failure due to volume depletion. For 65 years of age and older OR weight less than 50 kg, use 15 mg IV every 6 hours; MAX dose: 60 mg/day. Dose greater than 30 mg must be administered via intramuscular route. Do not administer for more than 5 days., 15 mg, IntraVENous, EVERY 6 HOURS, 20 doses, First dose on Mon06/19/22 at 2215, Last dose on Mon06/24/22 at 1615, Do not administer for more than 5 days. 0420 (Given - Provider: Rosa Phillips RN)1108 (Given - Provider: Maira Juarez RN)1519 (Given - Provider: Maira Juarez RN)2130 (Given - Provider: Wm Pierre RN) 0433 (Given - Provider: Wm Pierre, RN)1036 (Given - Provider: Josephine Davis RN)1551 (Given - Provider: Priscila Nicolas, RN)2200 (Given - Provider: Wm Pierre, RN) 0512 (Not Given - Provider: Wm Pierre RN - Reason: Patient/family refused)1019 (Not Given - Provider: Gagan Metz RN - Reason: Loss of IV access - Comment: pt refused IV)1615 (Due)2215 (Due) methylPREDNISolone sodium (SOLU-MEDROL) injection 40 mg (CANCELED) 40 mg, IntraVENous, EVERY 12 HOURS, First dose on Mon06/20/22 at 0800 0820 (Given - Provider: Maira Juarez RN)2006 (Given - Provider: Wm Pierre RN) 0823 (Given - Provider: Priscila Nicolas, QUETA) mometasone-formoterol (DULERA) 100-5 MCG/ACT inhaler 2 puff(Linked Group 1) 2 puff, Inhalation, 2 TIMES DAILY, First dose on Mon06/20/22 at 0800, Until Discontinued, Please select a reason the therapeutic interchange was not accepted: Other (Please Comment) / [facility] Formul[facility], Rinse mouth out with water (without swallowing) after every dose. P&T approved therapeutic substitution for trelegy 1005 (Not Given - Provider: Roz Bradley RCP - Reason: Medication not available)1220 (Held by provider - Provider: MINNA Hernández CNP - Reason: Other)1999 (Automatically Held - Provider: MINNA Hernández CNP) 0800 (Automatically Held - Provider: MINNA Hernández CNP)1999 (Automatically Held - Provider: MINNA Hernández CNP) 0800 (Automatically Held - Provider: MINNA Hernández CNP)0900 (Unheld by provider - Provider: MINNA Matt CNP)1999 (Due) predniSONE (DELTASONE) tablet 40 mg 40 mg, Oral, DAILY, First dose on Mon06/21/22 at 0915, Until Discontinued 1036 (Given - Provider: Josephine Davis RN) 0901 (Given - Provider: Gagan Metz RN) tiotropium (SPIRIVA) inhalation capsule 18 mcg(Linked Group 1) 18 mcg, Inhalation, DAILY, First dose on Mon06/20/22 at 0800, Until Discontinued, Please select a reason the therapeutic interchange was not accepted: Other (Please Comment) / Formulary, Not for oral use. To ensure drug delivery the contents of each capsule should be inhaled twice P&T approved therapeutic substitution for trelegy 1005 (Not Given - Provider: Roz Bradley RCP - Reason: Medication not available)1220 (Held by provider - Provider: MINNA Hernández CNP - Reason: Other) 0800 (Automatically Held - Provider: MINNA Hernández CNP) 0800 (Automatically Held - Provider: MINNA Hernández CNP) traMADol (ULTRAM) tablet 50 mg (COMPLETED) 50 mg, Oral, ONCE, 1 dose, On Mon06/22/22 at 0900 0901 (Given - Provider: Gagan Metz RN) PRN Medication Order 06/20/2022 06/21/2022 06/22/2022 acetaminophen (TYLENOL) tablet 1,000 mg 1,000 mg, Oral, EVERY 8 HOURS PRN, Starting on 06/19/22 at 2146, Until Discontinued, Pain Mild (1-3), Pain Mild (1-3) or Fever greater than 100.5 F (38 C), If acetaminophen and ibuprofen are both ordered PRN for mild pain, may administer together. 1455 (Given - Provider: Maira Juarez RN) 0048 (Given - Provider: Wm Pierre RN)0832 (Given - Provider: Priscila Nicolas RN) clonazePAM (KLONOPIN) tablet 0.5 mg 0.5 mg, Oral, 2 TIMES DAILY PRN, Starting on 06/19/22 at 2146, Until Discontinued, Anxiety 0824 (Given - Provider: Maira Juarez RN) 0048 (Given - Provider: Wm Pierre RN)1036 (Given - Provider: Josephine Davis RN)2223 (Given - Provider: Wm Pierre RN) 1023 (Given - Provider: Gagan Metz RN) dextrose 5 % solution 100 mL/hr, IntraVENous, PRN, Low blood sugar, Starting on Mon06/20/22 at 1233, Start infusion following administration of dextrose 50% or glucagon. dextrose 50 % IV solution 12.5 g, IntraVENous, PRN, Starting on Mon06/20/22 at 1233, Until Discontinued, Low blood sugar, Blood glucose less than 70 mg/dL and patient NOT ALERT or NPO., If patient does not respond within 5 minutes, repeat dose x1. Start D5W at 100 mL/hour until ordering provider can be reached. Repeat blood glucose in 15 minutes. If blood glucose is less than 70 mg/dL, repeat treatment and recheck blood glucose in 15 minutes x2. If using Glucostabilizer, dose as instructed per system. diphenhydrAMINE (BENADRYL) injection 25 mg 25 mg, IntraMUSCular, ONCE PRN, 1 dose, Starting on Mon06/21/22 at 0851, Until Mon06/22/22 at 0851, Other, Allergic Reaction, Use for allergic reaction during echocardiogram only. Mild or Moderate Allergic Reaction (hives, itching, redness, stable vitals), administer 25 mg IM injection or via IVP over 3 minutes and contact provider. Severe Allergic Reaction/Anaphylaxis (cardiovascular collapse, respiratory compromise), administer 25 mg IM injection or via IVP over 3 minutes. Activate EMS and contact provider. EPINEPHrine PF 1 MG/ML injection (Anaphylaxis) 0.3 mg 0.3 mg, IntraMUSCular, ONCE PRN, 1 dose, Starting on Mon06/21/22 at 0851, Until Mon06/22/22 at 0851, Allergic Reaction, Use for allergic reaction during echocardiogram only. Severe Allergic Reaction/Anaphylaxis (cardiovascular collapse, respiratory compromise), administer 0.3 mg IM injection. Activate EMS and contact provider. glucagon (rDNA) injection 1 mg 1 mg, IntraMUSCular, PRN, Starting on Mon06/20/22 at 1233, Until Discontinued, Low blood sugar, Blood glucose less than 70 mg/dL and patient NOT ALERT or NPO and does not have IV access., After administration, attempt intravenous access and start D5W at 100 mL/hr. Repeat blood glucose in 15 minutes x2 and notify provider. glucose (GLUTOSE) 40 % oral gel 15 g 15 g, Oral, PRN, Starting on Mon06/20/22 at 1233, Until Discontinued, Low blood sugar, If blood glucose less than 50 mg/dL and patient ALERT and TOLERATING PO, give 2 tubes glucose gel. If blood glucose less than 70 mg/dL and patient ALERT and TOLERATING PO, give 1 tube glucose gel. Repeat blood glucose in 15 minutes. If blood glucose is less than 70 mg/dL, repeat treatment and recheck blood glucose in 15 minutes x2 and notify provider. iopamidol (ISOVUE-370) 76 % injection 75 mL (COMPLETED) 75 mL, IntraVENous, IMG ONCE PRN, 1 dose, Starting on Mon06/20/22 at 2123, Until Discontinued, Other 0156 (Given - Provider: Ivan Johnson) ipratropium-albuterol (DUONEB) nebulizer solution 1 ampule 1 ampule, Inhalation, EVERY 4 HOURS PRN, Starting on Mon06/22/22 at 1214, Until Discontinued, Shortness of Breath, Initiate RT Bronchodilator Protocol: Yes - Inpatient Protocol perflutren lipid microspheres (DEFINITY) injection 1.65 mg 1.65 mg (1.5 mL), IntraVENous, IMG ONCE PRN, Starting on Mon06/21/22 at 0851, Until Mon06/24/22 at 0850, Other, Suboptimal Echo Image, Administer up to 1.65 mg via slow IVP for suboptimal echocardiogram enhancement. May administer as concentrated dose or diluted in 8.5 mL of 0.9% sodium chloride for a total volume of 10 mL. May administer as divided doses to reach optimal image enhancement. sodium chloride flush 0.9 % injection 5-40 mL 5-40 mL, IntraVENous, PRN, Starting on Mon06/21/22 at 0851, Until Mon06/24/22 at 0850, Line Care, Per Junior Systems Engineer Request, May use order for Line Care after every IV line use and Agitated Saline Bubble Study. Administration for Bubble Study per machine pie maker request for only. Remove 1 mL 0.9% sodium chloride from 10 mL syringe for creating agitated saline. If following IV push medication, administer flush at same rate as the IV push. Flush volume is determined by type of infusion therapy being given. , For non-viscous solutions use: Peripheral IV = 5 mL Midline or Central Line = 10 mL/lumen For viscous solutions (i.e. blood components, parenteral nutrition, contrast media, or after obtaining blood sample) use: Peripheral IV = 10 mL Midline or Central Line = 20 mL/lumen Linked Groups Order Group 1: mometasone-formoterol (DULERA) 100-5 MCG/ACT inhaler 2 puffJump to med 2 puff, Inhalation, 2 TIMES DAILY, First dose on Mon06/20/22 at 0800, Until Discontinued
Please select a reason the therapeutic interchange was not accepted: Other (Please Comment) / [facility] Formulary
Rinse mouth out with water (without swallowing) after every dose. P&T approved therapeutic substitution for trelegy
And tiotropium (SPIRIVA) inhalation capsule 18 mcgJump to med 18 mcg, Inhalation, DAILY, First dose on Mon06/20/22 at 0800, Until Discontinued
Please select a reason the therapeutic interchange was not accepted: Other (Please Comment) / Formulary
Not for oral use. To ensure drug delivery the contents of each capsule should be inhaled twice P&T approved therapeutic substitution for trelegy
Scheduled Medication Order 07/08/2023 07/09/2023 07/10/2023 amLODIPine (Norvasc) tablet 5 mg 5 mg, Oral, Daily, First dose on 06/24/23 at 0900 0805 (Given - Provider: Raj Bender RN) 1014 (Given - Provider: Rob Edwards, QUETA) 0855 (Given - Provider: Magdalene Strong, QUETA) docusate (Colace) 50 MG/5ML liquid 50 mg 50 mg, Oral, 2 times daily, First dose on Mon07/03/23 at 0900 0900 (Not Given - Provider: Raj Bender RN - Reason: Patient/family refused)2100 (Not Given - Provider: Chastity Padilla RN - Reason: Other) 1013 (Given - Provider: Rob Edwards, QUETA)2100 (Not Given - Provider: Ranjit Chew RN - Reason: Patient/family refused) 0854 (Given - Provider: Magdalene Strong, RN) enoxaparin (Lovenox) syringe 40 mg 40 mg, SubCUTAneous, Every 24 hours scheduled (Daily), First dose on 06/24/23 at 0900, Indication of Use: Prophylaxis-DVT/PE, Indications: Prophylaxis of Venous Thromboembolism 0805 (Given - Provider: Raj Bender RN) 0900 (Not Given - Provider: Rob Edwards RN - Reason: Patient/family refused) 0855 (Not Given - Provider: Magdalene Strong RN - Reason: Patient/family refused) Fgjqbyqiuhp-Oxsyhiazv-Yut ant 100-62.5-25 MCG/ACT aerosol powder 1 puff 1 puff, Inhalation, Daily, First dose on 07/03/23 at 2230, Non-Formulary Medication - Patient must supply own therapy. Medication must be verified by [facility] prior to administration. If patient cannot supply, please contact prescriber. Verified by Lizzeth Foy, [facility] 07/03/23 10:28 PM 0900 (Given - Provider: Raj Bender RN) 1019 (Given - Provider: Rob Edwards RN) 0900 (Given - Provider: Magdalene Strong RN) hydrocortisone 2.5 % cream Topical, 2 times daily, First dose on Mon06/25/23 at 1415, Apply upper part of chest, upper extremities/rash 0900 (Given - Provider: Raj Bender RN)2100 (Not Given - Provider: Chastity Padilla RN - Reason: Other) 1015 (Given - Provider: Rob Edwards RN)2054 (Given - Provider: Ranjit Chew RN) 0858 (Given - Provider: Magdalene Strong, RN) piperacillin-tazobactam (Zosyn) 3,375 mg in sodium chloride 0.9 % 50 mL IVPB Mini-Bag Plus 3,375 mg, IntraVENous, at 12.5 mL/hr, Administer over 4 Hours, Every 8 hours, First dose on Mon07/05/23 at 1730, Mini-Bag Plus bag, Suspected Indication (Select all that apply): Intra-Abdominal Infection 0044 (Stopped - Provider: Ac Walter RN)0448 (New Bag - Provider: Ac Walter RN)0848 (Stopped - Provider: Raj eBnder RN)1133 (New Bag - Provider: Raj Bender RN)1533 (Stopped - Provider: Raj Bender RN)2135 (New Bag - Provider: Chastity Padilla RN) 0135 (Stopped - Provider: Chastity Padilla, QUETA)0324 (New Bag - Provider: Chastity Padilla RN)0724 (Stopped - Provider: Chastity Padilla RN)1224 (New Bag - Provider: Rob Edwards, QUETA)1624 (Stopped - Provider: Rob Edwards, RN)2053 (New Bag - Provider: Ranjit Chew RN) 0053 (Stopped - Provider: Ranjit Chew RN)0419 (New Bag - Provider: Ranjit Chew RN)0819 (Stopped - Provider: Magdalene Strong, RN)1200 (Canceled Entry - Provider: Magdalene Strong RN - Comment: discharged) polyethylene glycol (PEG) 3350 (Miralax) packet 17 g 17 g, Oral, Daily, First dose (after last modification) on 07/08/23 at 1630, 1st line for treatment of constipation - give scheduled if no bowel movement in past 24 hours. 1710 (Given - Provider: Raj Bender RN) 1200 (Not Given - Provider: Rob Edwards RN - Reason: Patient/family refused) 0855 (Given - Provider: Magdalene Strong, RN) potassium chloride CR (Klor-Con M20) ER tablet 40 mEq (COMPLETED) 40 mEq, Oral, Once, On 07/08/23 at 1245, For 1 dose, Best given with food and plenty of water to minimize gastric irritation. Do not crush or chew. 1304 (Given - Provider: Raj Bender RN) senna-docusate sodium (Senokot-S) 8.6-50 MG tablet 2 tablet 2 tablet, Oral, Daily, First dose (after last modification) on 07/09/23 at 0900 0900 (Not Given - Provider: Rob Edwards RN - Reason: Patient/family refused) 0854 (Given - Provider: Magdalene Strong, QUETA) traZODone (Desyrel) tablet 50 mg 50 mg, Oral, Every evening, First dose on Mon06/23/23 at 2325 1710 (Given - Provider: Raj Bender RN) 2053 (Given - Provider: Ranjit Chew RN) PRN Medication Order 07/08/2023 07/09/2023 07/10/2023 acetaminophen (Tylenol) suppository 650 mg(Linked Group 1) 650 mg, Rectal, Every 6 hours PRN, mild pain (1-3), fever, For temp greater than 100.4 F (38 C), Starting on 06/24/23 at 0137, Administer if oral route cannot be used. Maximum dose of acetaminophen is 4000 mg from all sources in 24 hours. acetaminophen (Tylenol) tablet 650 mg(Linked Group 1) 650 mg, Oral, Every 6 hours PRN, mild pain (1-3), fever, For temp greater than 100.4 F (38 C), Starting on 06/24/23 at 0137, Maximum dose of acetaminophen is 4000 mg from all sources in 24 hours. albuterol 108 (90 Base) MCG/ACT inhaler 2 puff 2 puff, Inhalation, Every 4 hours PRN, shortness of breath, wheezing, Starting on Mon06/23/23 at 2320 gabapentin (Neurontin) capsule 300 mg 300 mg, Oral, 2 times daily PRN, neuropathy, Starting on Mon06/23/23 at 2320 hydrALAZINE (Apresoline) injection 10 mg 10 mg, IntraVENous, Every 4 hours PRN, high blood pressure, SBP >175 or DBP >95, Starting on Tu06/27/23 at 1645 HYDROmorphone (Dilaudid) injection 0.5 mg 0.5 mg, IntraVENous, Every 4 hours PRN, severe pain (7-10), Starting on 06/25/23 at 1306, If oral and IV narcotics ordered, use oral first and only use IV if oral is ineffective or cannot take oral. Do Not give oral and IV within 1 hour of each other unless specifically ordered. 0052 (Given - Provider: Ac Walter RN)0448 (Given - Provider: Ac Walter RN)1133 (Given - Provider: Raj Bender RN)1535 (Given - Provider: Raj Bender RN)1999 (Given - Provider: Chastity Padilla RN) 0323 (Given - Provider: Chastity Padilla RN)1051 (Given - Provider: Rob Edwards RN)1716 (Given - Provider: Rob Edwards RN)2117 (Self Administered Via Pump - Provider: Ranjit Chew RN) 0223 (Given - Provider: Ranjit Chew RN)0733 (Given - Provider: Magdalene Strong RN)1130 (Given - Provider: Magdalene Strong RN) melatonin tablet 3 mg 3 mg, Oral, Nightly PRN, sleep, Starting on Mon06/23/23 at 2320 naloxone (Narcan) injection 0.4 mg 0.4 mg, IntraVENous, As needed, opioid reversal, pinpoint pupils, Starting on Mon06/23/23 at 2310, administer IV PRN for oversedation, RR LESS than 10 ondansetron (Zofran) injection 4 mg(Linked Group 2) 4 mg, IntraVENous, Every 6 hours PRN, nausea, vomiting, Starting on Mon06/23/23 at 2320, 1st Line. Give IV if patient is unable to take orally. If inadequate response within 60 minutes, proceed to next-line agent or contact provider if no further options ordered. ondansetron ODT (Zofran-ODT) disintegrating tablet 4 mg(Linked Group 2) 4 mg, Oral, Every 8 hours PRN, nausea, vomiting, Starting on Mon06/23/23 at 2320, 1st Line. If inadequate response within 60 minutes, proceed to next-line agent or contact provider if no further options ordered. Patient should allow tablet to dissolve on tongue. Do not remove from blister pack until just before administering. oxyCODONE (Roxicodone) immediate release tablet 10 mg(Linked Group 3) 10 mg, Oral, Every 4 hours PRN, severe pain (7-10), Starting on Mon06/23/23 at 2311 0805 (Given - Provider: Raj Bender RN)192 (Given - Provider: Chastity Padilla RN) oxyCODONE (Roxicodone) immediate release tablet 5 mg(Linked Group 3) 5 mg, Oral, Every 4 hours PRN, moderate pain (4-6), Starting on Mon06/23/23 at 2311 0805 (See Alternative - Provider: Raj Bender RN)1926 (See Alternative - Provider: Chastity Padilla RN) Linked Groups Order Group 1: acetaminophen (Tylenol) tablet 650 mgJump to med 650 mg, Oral, Every 6 hours PRN, mild pain (1-3), fever, For temp greater than 100.4 F (38 C), Starting on 06/24/23 at 0137, Maximum dose of acetaminophen is 4000 mg from all sources in 24 hours. Or acetaminophen (Tylenol) suppository 650 mgJump to med 650 mg, Rectal, Every 6 hours PRN, mild pain (1-3), fever, For temp greater than 100.4 F (38 C), Starting on 06/24/23 at 0137, Administer if oral route cannot be used. Maximum dose of acetaminophen is 4000 mg from all sources in 24 hours. Group 2: ondansetron ODT (Zofran-ODT) disintegrating tablet 4 mgJump to med 4 mg, Oral, Every 8 hours PRN, nausea, vomiting, Starting on Mon06/23/23 at 2320, 1st Line. If inadequate response within 60 minutes, proceed to next-line agent or contact provider if no further options ordered. Patient should allow tablet to dissolve on tongue. Do not remove from blister pack until just before administering. Or ondansetron (Zofran) injection 4 mgJump to med 4 mg, IntraVENous, Every 6 hours PRN, nausea, vomiting, Starting on Mon06/23/23 at 2320, 1st Line. Give IV if patient is unable to take orally. If inadequate response within 60 minutes, proceed to next-line agent or contact provider if no further options ordered. Group 3: oxyCODONE (Roxicodone) immediate release tablet 5 mgJump to med 5 mg, Oral, Every 4 hours PRN, moderate pain (4-6), Starting on Mon06/23/23 at 2311 Or oxyCODONE (Roxicodone) immediate release tablet 10 mgJump to med 10 mg, Oral, Every 4 hours PRN, severe pain (7-10), Starting on Mon06/23/23 at 2311 Scheduled Medication Order 11/08/2023 11/09/2023 11/10/2023 amoxicillin-clavulanate (Augmentin) 875-125 MG per tablet 1 tablet 1 tablet (875 mg), Oral, Every 12 hours scheduled (2 times per day), First dose on Mon11/10/23 at 1030, Suspected Indication (Select all that apply): Intra-Abdominal Infection 1046 (Given - Provider: Pooja Witt, RN)2100 (Canceled Entry - Provider: Automatic Discharge Provider - Comment: Automatically canceled at discontinue of medication order) enoxaparin (Lovenox) syringe 40 mg 40 mg, SubCUTAneous, Every 24 hours scheduled (Daily), First dose on Mon11/05/23 at 0900, Indication of Use: Prophylaxis-DVT/PE, Indications: Prophylaxis of Venous Thromboembolism 0900 (Given - Provider: Josy Christensen RN) 0847 (Given - Provider: Hyacinth Clancy, QUETA) 1047 (Given - Provider: Pooja Witt, QUETA) ertapenem (INVanz) 1,000 mg in sodium chloride 0.9 % 50 mL IVPB Mini-Bag Plus (CANCELED) 1,000 mg, IntraVENous, at 100 mL/hr, Administer over 30 Minutes, Every 24 hours, First dose on Mon11/06/23 at 1400, Mini-Bag Plus bag, Suspected Indication (Select all that apply): Intra-Abdominal Infection 1509 (New Bag - Provider: Josy Christensen RN)1539 (Stopped - Provider: Josy Christensen RN) 1211 (New Bag - Provider: Hyacinth Clancy RN)1241 (Stopped - Provider: Hyacinth Clancy RN) Mzrmztnsdwo-Kjzetxghc-Nqw ant 100-62.5-25 MCG/ACT aerosol powder 1 puff 1 puff, Inhalation, Daily, First dose on Mon11/04/23 at 1515 0900 (Given - Provider: Josy Christensen RN) 1211 (Given - Provider: Hyacinth Clancy, QUETA) 1050 (Given - Provider: Pooja Witt, QUETA) gabapentin (Neurontin) capsule 300 mg 300 mg, Oral, 2 times daily, First dose on Mon11/04/23 at 2100 0900 (Dose Auto Held)2100 (Dose Auto Held) 0900 (Dose Auto Held)1526 (Unheld by provider - Provider: Iftikhar Dai MD)2110 (Given - Provider: Thelma Smith RN) 1046 (Given - Provider: Pooja Witt, QUETA)2100 (Canceled Entry - Provider: Automatic Discharge Provider - Comment: Automatically canceled at discontinue of medication order) pantoprazole (ProtoNix) 40 mg in sodium chloride (PF) 0.9 % 10 mL injection 40 mg, IntraVENous, Administer over 2 Minutes, Nightly, First dose on Mon11/08/23 at 2100, Give only if unable to tolerate po. 2027 (Given - Provider: Antoinette Moffett, RN) 2109 (Given - Provider: Thelma Smith RN) 2099 (Canceled Entry - Provider: Automatic Discharge Provider - Comment: Automatically canceled at discontinue of medication order) potassium chloride IVPB 10 mEq (COMPLETED) 10 mEq, IntraVENous, at 100 mL/hr, Administer over 1 Hours, Every 1 hour, First dose on Mon11/08/23 at 0600, For 4 doses, Total dose: 40 mEq 0623 (New Bag - Provider: Izzy Pretty RN)0659 (Stopped - Provider: Josy Christensen RN)0739 (New Bag - Provider: Josy Christensen RN)0759 (Stopped - Provider: Josy Christensen RN)0837 (New Bag - Provider: Josy Christensen RN)0859 (Stopped - Provider: Josy Christensen RN)0944 (New Bag - Provider: Josy Christensen, QUETA)1044 (Stopped - Provider: Josy Christensen, QUETA) potassium chloride IVPB 10 mEq (COMPLETED) 10 mEq, IntraVENous, at 100 mL/hr, Administer over 1 Hours, Every 1 hour, First dose (after last reorder) on Mon11/08/23 at 1145, For 4 doses, Total dose: 40 mEq 1211 (New Bag - Provider: Josy Christensen RN)1244 (Stopped - Provider: Josy Christensen RN)1303 (New Bag - Provider: Josy Christensen RN)1344 (Stopped - Provider: Josy Christensen RN)1415 (New Bag - Provider: Josy Christensen RN)1444 (Stopped - Provider: Josy Christensen RN)1510 (New Bag - Provider: Josy Christensen RN)1610 (Stopped - Provider: Josy Christensen RN) potassium chloride IVPB 10 mEq () 10 mEq, IntraVENous, at 100 mL/hr, Administer over 1 Hours, Every 1 hour, First dose (after last reorder) on Samantha 11/09/23 at 1530, For 4 doses, Total dose: 40 mEq 1630 (Canceled Entry - Provider: Hyacinth Clancy RN - Comment: IV bad)1637 (Not Given - Provider: Hyacinth Clancy RN - Reason: Loss of IV access)181 (New Bag - Provider: Hyacinth Clancy RN)191 (Stopped - Provider: Hyacinth Clancy, QUETA)192 (New Bag - Provider: Hyacinth Clancy RN)210 (Stopped - Provider: Thelma Smith RN) potassium chloride IVPB 10 mEq (COMPLETED) 10 mEq, IntraVENous, at 100 mL/hr, Administer over 1 Hours, Every 1 hour, First dose (after last reorder) on [facility] 11/09/23 at 2100, For 2 doses 211 (New Bag - Provider: Thelma Smith RN)215 (Stopped - Provider: Thelma Smith RN)221 (New Bag - Provider: Thelma Smith RN)231 (Stopped - Provider: Thelma Smith RN) sodium chloride 0.9% (NS) flush 10 mL 10 mL, IntraVENous, Every 12 hours scheduled (2 times per day), First dose on [facility] 11/04/23 at 0900, Phase II/On Unit 0748 (Given - Provider: Josy Christensen RN)2030 (Given - Provider: Antoinette Moffett RN) 0900 (Not Given - Provider: Hyacinth Clancy RN - Reason: IV Fluids Infusing)2100 (Not Given - Provider: Thelma Smith RN - Reason: IV Fluids Infusing) 1049 (Given - Provider: Pooja Witt RN)2100 (Canceled Entry - Provider: Automatic Discharge Provider - Comment: Automatically canceled at discontinue of medication order) Continuous Medication Order 11/08/2023 11/09/2023 11/10/2023 dextrose 5 % and sodium chloride 0.45 % infusion (CANCELED) 75 mL/hr, IntraVENous, Continuous, Starting on 11/04/23 at 0445, Phase II/On Unit 0026 (Rate/Dose Change - Provider: Izzy Pretty RN)0440 (New Bag - Provider: Izzy Pretty RN)1838 (New Bag - Provider: Josy Christensen, QUETA) 0514 (New Bag - Provider: Antoinette Moffett, RN) PRN Medication Order 11/08/2023 11/09/2023 11/10/2023 acetaminophen (Tylenol) tablet 650 mg 650 mg, Oral, Every 4 hours PRN, other, Pain (1-10), Starting on 11/04/23 at 0438, Phase II/On Unit, Give in addition to any other pain medication ordered at same time for any pain indication. 0900 (Given - Provider: Josy Christensen, QUETA) clonazePAM (KlonoPIN) tablet 0.5 mg 0.5 mg, Oral, 2 times daily PRN, anxiety, Starting on 11/06/23 at 1411 0551 (Given - Provider: Izzy Pretty RN)2143 (Given - Provider: Antoinette Moffett, RN) 2110 (Given - Provider: Thelma Smith, QUETA) 0905 (Given - Provider: Pooja Witt, QUETA) HYDROmorphone (Dilaudid) injection 0.5 mg(Linked Group 1) 0.5 mg, IntraVENous, Every 4 hours PRN, moderate pain (4-6), Starting on Mon11/10/23 at 1030, Phase II/On Unit, If oral and IV narcotics ordered, use oral first and only use IV if oral is ineffective or cannot take oral. Do Not give oral and IV within 1 hour of each other unless specifically ordered. HYDROmorphone (Dilaudid) injection 1 mg(Linked Group 1) 1 mg, IntraVENous, Every 4 hours PRN, severe pain (7-10), Starting on Mon11/10/23 at 1030, Phase II/On Unit, If oral and IV narcotics ordered, use oral first and only use IV if oral is ineffective or cannot take oral. Do Not give oral and IV within 1 hour of each other unless specifically ordered. ketorolac (Toradol) injection 15 mg 15 mg, IntraVENous, Every 6 hours PRN, moderate pain (4-6), severe pain (7-10), Starting on Mon11/07/23 at 1013, For 5 days 0101 (Given - Provider: Izzy Pretty RN)0746 (Given - Provider: Josy Christensen, RN)1439 (Given - Provider: Josy Christensen, RN)2143 (Given - Provider: Antoinette Moffett, RN) 0512 (Given - Provider: Antoinette Moffett RN)1158 (Given - Provider: Hyacinth Clancy, QUETA)2110 (Given - Provider: Thelma Smith, QUETA) naloxone (Narcan) injection 0.4 mg 0.4 mg, IntraVENous, Every 5 min PRN, opioid reversal, respiratory depression, Starting on 11/04/23 at 0445, +++ For RR <10, pinpoint pupils, over sedation for opioid reversal - MUST notify injection wax molder provider immediately after first dose, may give IM or SQ if no IV access +++ ondansetron (Zofran) injection 4 mg(Linked Group 2) 4 mg, IntraVENous, Every 6 hours PRN, nausea, vomiting, Starting on 11/04/23 at 0438, Phase II/On Unit, 1st Line. Give IV if patient is unable to take orally. If inadequate response within 60 minutes, proceed to next-line agent or contact provider if no further options ordered. 1235 (See Alternative - Provider: Pooja Witt RN) ondansetron ODT (Zofran-ODT) disintegrating tablet 4 mg(Linked Group 2) 4 mg, Oral, Every 8 hours PRN, nausea, vomiting, Starting on 11/04/23 at 0438, Phase II/On Unit, 1st Line. If inadequate response within 60 minutes, proceed to next-line agent or contact provider if no further options ordered. Patient should allow tablet to dissolve on tongue. Do not remove from blister pack until just before administering. 1235 (Given - Provider: Pooja Witt RN) oxyCODONE (Roxicodone) immediate release tablet 10 mg(Linked Group 3) 10 mg, Oral, Every 4 hours PRN, severe pain (7-10), Starting on Mon11/06/23 at 1132 0438 (Given - Provider: Izzy Pretty RN)0900 (Given - Provider: Josy Christensen RN)1301 (Given - Provider: Josy Christensen, QUETA)1833 (Given - Provider: Josy Christensen RN) 0353 (Given - Provider: Antoinette Moffett RN)0847 (Given - Provider: Hyacinth Clancy, QUETA)1407 (Given - Provider: Hyacinth Clancy, QUETA)1811 (Given - Provider: Hyacinth Clancy, QUETA)2245 (Given - Provider: Thelma Smith, RN) 0648 (Given - Provider: Thelma Smith, RN)1046 (Given - Provider: Pooja Witt, RN)1457 (Given - Provider: Pooja Witt, RN) oxyCODONE (Roxicodone) immediate release tablet 5 mg(Linked Group 3) 5 mg, Oral, Every 4 hours PRN, moderate pain (4-6), Starting on 11/06/23 at 1132 0438 (See Alternative - Provider: Izzy Pretty RN)0900 (See Alternative - Provider: Josy Christensen RN)1301 (See Alternative - Provider: Josy Christensen RN)1833 (See Alternative - Provider: Josy Christensen RN) 0353 (See Alternative - Provider: Antoinette Moffett RN)0847 (See Alternative - Provider: Hyacinth Clancy, QUETA)1407 (See Alternative - Provider: Hyacinth Clancy, QUETA)1811 (See Alternative - Provider: Hyacinth Clancy, QUETA)2245 (See Alternative - Provider: Thelma Smith, QUETA) 0648 (See Alternative - Provider: Thelma Smith RN)1046 (See Alternative - Provider: Pooja Witt, RN)1457 (See Alternative - Provider: Pooja Witt, RN) phenol (Chloraseptic) 1.4 % mouth/throat spray 1 spray 1 spray, Mouth/Throat, Every 2 hour PRN, sore throat, Starting on 11/04/23 at 1010, Instruct patient to spit out after 15 seconds. sodium chloride 0.9 % infusion 5-250 mL/hr, IntraVENous, PRN, if patient receiving piggyback infusions and maintenance fluids are not ordered OR KVO fluids to protect IV site / prevent frequent line interruptions/ long duration, Starting on 11/04/23 at 0438, Phase II/On Unit, For piggyback infusion, administer at same rate as piggyback for a total of 25 mL. Enter 25 mL into dose field and piggyback rate into rate field of order. If piggyback is infusing at a rate less than 100 mL/hr, enter 25 mL into dose field and 100 mL/hr into rate field of order. For KVO fluids, enter rate of 20 mL/hr or less into rate field of order. sodium chloride 0.9% (NS) flush 10 mL 10 mL, IntraVENous, PRN, line care, Starting on 11/04/23 at 0438, Phase II/On Unit, After every IV line use Linked Groups Order Group 1: HYDROmorphone (Dilaudid) injection 0.5 mgJump to med 0.5 mg, IntraVENous, Every 4 hours PRN, moderate pain (4-6), Starting on Mon11/10/23 at 1030, Phase II/On Unit, If oral and IV narcotics ordered, use oral first and only use IV if oral is ineffective or cannot take oral. Do Not give oral and IV within 1 hour of each other unless specifically ordered. Or HYDROmorphone (Dilaudid) injection 1 mgJump to med 1 mg, IntraVENous, Every 4 hours PRN, severe pain (7-10), Starting on Mon11/10/23 at 1030, Phase II/On Unit, If oral and IV narcotics ordered, use oral first and only use IV if oral is ineffective or cannot take oral. Do Not give oral and IV within 1 hour of each other unless specifically ordered. Group 2: ondansetron ODT (Zofran-ODT) disintegrating tablet 4 mgJump to med 4 mg, Oral, Every 8 hours PRN, nausea, vomiting, Starting on 11/04/23 at 0438, Phase II/On Unit, 1st Line. If inadequate response within 60 minutes, proceed to next-line agent or contact provider if no further options ordered. Patient should allow tablet to dissolve on tongue. Do not remove from blister pack until just before administering. Or ondansetron (Zofran) injection 4 mgJump to med 4 mg, IntraVENous, Every 6 hours PRN, nausea, vomiting, Starting on 11/04/23 at 0438, Phase II/On Unit, 1st Line. Give IV if patient is unable to take orally. If inadequate response within 60 minutes, proceed to next-line agent or contact provider if no further options ordered. Group 3: oxyCODONE (Roxicodone) immediate release tablet 5 mgJump to med 5 mg, Oral, Every 4 hours PRN, moderate pain (4-6), Starting on 11/06/23 at 1132 Or oxyCODONE (Roxicodone) immediate release tablet 10 mgJump to med 10 mg, Oral, Every 4 hours PRN, severe pain (7-10), Starting on 11/06/23 at 1132 Scheduled Medication Order 02/14/2024 02/15/2024 02/16/2024 acetaminophen (Ofirmev) IVPB 1,000 mg 1,000 mg, IntraVENous, at 400 mL/hr, Administer over 15 Minutes, Every 8 hours, First dose on 02/11/24 at 1400 0554 (New Bag - Provider: Swathi Vila RN)0609 (Stopped - Provider: Swathi Vila RN)1420 (New Bag - Provider: Kimmy Zamora RN)1435 (Stopped - Provider: Kimmy Zamora RN)2200 (Not Given - Provider: Lynnette Fajardo RN - Reason: Patient/family refused) 0548 (New Bag - Provider: Lynnette Fajardo RN)0603 (Stopped - Provider: Lynnette Fajardo RN)1436 (New Bag - Provider: Kimmy Zamora RN)1451 (Stopped - Provider: Kimmy Zamora RN)2200 (Not Given - Provider: Dami Martell RN - Reason: Patient/family refused) 0600 (Not Given - Provider: Dami Martell RN - Reason: Patient/family refused)1400 (Not Given - Provider: Hyacinth Clancy RN - Reason: Patient/family refused) clonazePAM (KlonoPIN) tablet 0.5 mg 0.5 mg, Oral, 2 times daily, First dose (after last reorder) on 02/11/24 at 2100 0811 (Given - Provider: Kimmy Zamora RN)2009 (Given - Provider: Lynnette Fajardo RN) 08 (Given - Provider: Kimmy Zamora RN)2038 (Given - Provider: Dami Martell RN) 910 (Given - Provider: Hyacinth Clancy, QUETA) enoxaparin (Lovenox) syringe 40 mg 40 mg, SubCUTAneous, Every 24 hours scheduled (Daily), First dose on Mon02/10/24 at 0900, Phase II/On Unit, Indication of Use: Prophylaxis-DVT/PE, Indications: Prophylaxis of Venous Thromboembolism 809 (Given - Provider: Kimmy Zamora RN) 855 (Given - Provider: Kimmy Zamora RN) 910 (Given - Provider: Hyacinth Clancy, QUETA) gabapentin (Neurontin) capsule 300 mg 300 mg, Oral, 2 times daily, First dose on Mon02/09/24 at 2145 0900 (Dose Auto Held - Provider: Blair Wing MD)1450 (Unheld by provider - Provider: Fernando Brady APRN - [facility])2008 (Given - Provider: Lynnette Fajardo RN) 855 (Given - Provider: Kimmy Zamora RN)2038 (Given - Provider: Dami Martell RN) 910 (Given - Provider: Hyacinth Clancy RN) hydroCHLOROthiazide (HYDRODiuril) tablet 25 mg(Linked Group 1) 25 mg, Oral, Daily, First dose on 02/11/24 at 1100 0900 (Given - Provider: Kimmy Zamora RN) 855 (Given - Provider: Kimmy Zamora RN) 910 (Given - Provider: Hyacinth Clancy RN) lisinopril tablet 20 mg(Linked Group 1) 20 mg, Oral, Daily, First dose on 02/11/24 at 1100 0811 (Given - Provider: Kimmy Zamora RN) 855 (Given - Provider: Kimmy Zamora RN) 910 (Given - Provider: Hyacinth Clancy RN) methocarbamol (Robaxin) tablet 1,000 mg 1,000 mg, Oral, Every 8 hours scheduled (3 times per day), First dose on Mon02/12/24 at 0900 0554 (Given - Provider: Swathi Vila RN)1420 (Given - Provider: Kimmy Zamora RN)2215 (Given - Provider: Lynnette Fajardo RN) 0546 (Given - Provider: Lynnette Fajardo RN)1319 (Given - Provider: Kimmy Zamora RN)2101 (Given - Provider: Dami Martell RN) 0632 (Given - Provider: Dami Martell RN)1510 (Given - Provider: Hyacinth Clancy, QUETA) mometasone-formoterol (Dulera 100) 100-5 MCG/ACT inhaler 2 puff 2 puff, Inhalation, 2 times daily, First dose on Mon02/09/24 at 2000, Phase II/On Unit, Rinse mouth with water after use to reduce aftertaste and incidence of candidiasis. Do not swallow. 0814 (Given - Provider: Kimmy Zamora RN)2009 (Given - Provider: Lynnette Fajardo RN) 0856 (Given - Provider: Kimmy Zamora RN)1999 (Not Given - Provider: Dami Martell RN - Reason: Patient/family refused) 0914 (Given - Provider: Hyacinth Clancy RN)1999 (Canceled Entry - Provider: Automatic Discharge Provider - Comment: Automatically canceled at discontinue of medication order) pantoprazole (ProtoNix) EC tablet 40 mg 40 mg, Oral, Daily before breakfast, First dose on Mon02/14/24 at 2000, Do not crush, chew, or split. 2008 (Given - Provider: Lynnette Fajardo RN) 0546 (Given - Provider: Lynnette Fajardo RN) 0632 (Given - Provider: Dami Martell RN) polyethylene glycol (PEG) 3350 (Miralax) packet 17 g 17 g, Oral, Daily, First dose on Samantha 02/15/24 at 1115 1320 (Given - Provider: Kimmy Zamora RN) 0911 (Given - Provider: Hyacinth Clancy RN) sodium chloride 0.9% (NS) flush 10 mL 10 mL, IntraVENous, Every 12 hours scheduled (2 times per day), First dose on Mon02/09/24 at 2100, Phase II/On Unit 0813 (Given - Provider: Kimmy Zamora RN)2009 (Given - Provider: Lynnette Fajardo, QUETA) 0857 (Given - Provider: Kimmy Zamora, RN)2038 (Given - Provider: Dami Martell RN) 918 (Given - Provider: Hyacinth Clancy, QUETA) tiotropium (Spiriva Respimat) 2.5 MCG/ACT inhaler 2 puff 2 puff, Inhalation, Daily, First dose on Mon02/09/24 at 2000, Phase II/On Unit 0813 (Given - Provider: Kimmy Zamora RN) 08 (Given - Provider: Kimmy Zamora RN) 913 (Given - Provider: Hyacinth Clancy, QUETA) traZODone (Desyrel) tablet 50 mg 50 mg, Oral, Every evening, First dose on Mon02/09/24 at 1800 2008 (Given - Provider: Lynnette Fajardo RN) 2038 (Given - Provider: Dami Martell RN) Continuous Medication Order 02/14/2024 02/15/2024 02/16/2024 dextrose 5 % and sodium chloride 0.45 % with KCl 20 mEq/L infusion (CANCELED) 50 mL/hr, IntraVENous, Continuous, Starting on Mon02/09/24 at 1530, Phase II/On Unit 0236 (New Bag - Provider: Swathi Vila RN)1109 (Rate/Dose Change - Provider: Kimmy Zamora RN)1155 (New Bag - Provider: Kimmy Zamora RN) 0558 (New Bag - Provider: Lynnette Fajardo, RN) PRN Medication Order 02/14/2024 02/15/2024 02/16/2024 albuterol 108 (90 Base) MCG/ACT inhaler 2 puff 2 puff, Inhalation, Every 4 hours PRN, shortness of breath, wheezing, Starting on Mon02/09/24 at 1757 carboxymethylcellulose PF (Refresh Plus) 0.5 % ophthalmic solution 2 drop 2 drop, Both Eyes, 3 times daily PRN, dry eyes, Starting on Mon02/09/24 at 1709 hydrALAZINE (Apresoline) injection 10 mg 10 mg, IntraVENous, Every 4 hours PRN, high blood pressure, SBP>160 and /or DBP>90, Starting on Mon02/11/24 at 0950 HYDROmorphone (Dilaudid) injection 0.5 mg (CANCELED)(Linked Group 2) 0.5 mg, IntraVENous, Every 4 hours PRN, moderate pain (4-6), Starting on Mon02/14/24 at 1500, Phase II/On Unit, If oral and IV narcotics ordered, use oral first and only use IV if oral is ineffective or cannot take oral. Do Not give oral and IV within 1 hour of each other unless specifically ordered. 1706 (See Alternative - Provider: Kimmy Zamora RN)2106 (See Alternative - Provider: Lynnette Fajardo, RN) 0112 (See Alternative - Provider: Lynnette Fajardo, RN)0700 (See Alternative - Provider: Lynnette Fajardo, RN)1320 (See Alternative - Provider: Kimmy Zamora RN)2037 (See Alternative - Provider: Dami Martell RN) 0315 (See Alternative - Provider: Dami Martell RN)0908 (Given - Provider: Hyacinth Clancy RN) HYDROmorphone (Dilaudid) injection 1 mg (CANCELED) 1 mg, IntraVENous, Every 3 hours PRN, severe pain (7-10), Starting on Mon02/13/24 at 0930, Phase II/On Unit, If oral and IV narcotics ordered, use oral first and only use IV if oral is ineffective or cannot take oral. Do Not give oral and IV within 1 hour of each other unless specifically ordered. 0236 (Given - Provider: Swathi Vila RN)0810 (Given - Provider: Kimmy Zamora RN)1150 (Given - Provider: Kimmy Zamora RN) HYDROmorphone (Dilaudid) injection 1 mg (CANCELED)(Linked Group 2) 1 mg, IntraVENous, Every 4 hours PRN, severe pain (7-10), Starting on Mon02/14/24 at 1500, Phase II/On Unit, If oral and IV narcotics ordered, use oral first and only use IV if oral is ineffective or cannot take oral. Do Not give oral and IV within 1 hour of each other unless specifically ordered. 1706 (Given - Provider: Kimmy Zamora RN)2106 (Given - Provider: Lynnette Fajardo RN) 0112 (Given - Provider: Lynnette Fajardo RN)0700 (Given - Provider: Lynnette Fajardo RN)1320 (Given - Provider: Kimmy Zamora RN)2037 (Given - Provider: Dami Martell RN) 0315 (Given - Provider: Dami Martell RN)0908 (See Alternative - Provider: Hyacinth Clancy RN) naloxone (Narcan) injection 0.4 mg 0.4 mg, IntraVENous, Every 5 min PRN, opioid reversal, respiratory depression, Starting on Mon02/09/24 at 1530, +++ For RR <10, pinpoint pupils, over sedation for opioid reversal - MUST notify injection wax molder provider immediately after first dose, may give IM or SQ if no IV access +++ ondansetron (Zofran) injection 4 mg(Linked Group 3) 4 mg, IntraVENous, Every 6 hours PRN, nausea, vomiting, Starting on Mon02/09/24 at 1526, Phase II/On Unit, 1st Line. Give IV if patient is unable to take orally. If inadequate response within 60 minutes, proceed to next-line agent or contact provider if no further options ordered. 0810 (Given - Provider: Kimmy Zamora RN) 1829 (Given - Provider: Kimmy Zamora RN) ondansetron ODT (Zofran-ODT) disintegrating tablet 4 mg(Linked Group 3) 4 mg, Oral, Every 8 hours PRN, nausea, vomiting, Starting on Mon02/09/24 at 1526, Phase II/On Unit, 1st Line. If inadequate response within 60 minutes, proceed to next-line agent or contact provider if no further options ordered. Patient should allow tablet to dissolve on tongue. Do not remove from blister pack until just before administering. 0810 (See Alternative - Provider: Kimmy Zamora RN) 1829 (See Alternative - Provider: Kimmy Zamora RN) oxyCODONE (Roxicodone) immediate release tablet 10 mg(Linked Group 4) 10 mg, Oral, Every 4 hours PRN, severe pain (7-10), Starting on Mon02/13/24 at 1526, Phase II/On Unit 0123 (Given - Provider: Swathi Vila RN)1004 (Given - Provider: Kimmy Zamora RN)1420 (Given - Provider: Kimmy Zamora RN)1830 (Given - Provider: Kimmy Zamora RN)2215 (Given - Provider: Lynnette Fajardo RN) 0546 (Given - Provider: Lynntete Fajardo RN)1050 (Given - Provider: Kimmy Zamora RN)2358 (Given - Provider: Dami Martell RN) 0635 (Given - Provider: Dami Martell RN)1311 (Given - Provider: Hyacinth Clancy RN)1754 (See Alternative - Provider: Hyacinth Clancy RN) oxyCODONE (Roxicodone) immediate release tablet 5 mg(Linked Group 4) 5 mg, Oral, Every 4 hours PRN, moderate pain (4-6), Starting on Mon02/13/24 at 1526, Phase II/On Unit 0123 (See Alternative - Provider: Swathi Vila RN)1004 (See Alternative - Provider: Kimmy Zamora RN)1420 (See Alternative - Provider: Kimmy Zamora RN)1830 (See Alternative - Provider: Kimmy Zamora RN)2215 (See Alternative - Provider: Lynnette Fajardo RN) 0546 (See Alternative - Provider: Lynnette Fajardo RN)1050 (See Alternative - Provider: Kimmy Zamora RN)2358 (See Alternative - Provider: Dami Martell RN) 0635 (See Alternative - Provider: Dami Martell RN)1311 (See Alternative - Provider: Hyacinth Clancy RN)1754 (Given - Provider: Hyacinth Clancy RN) phenol (Chloraseptic) 1.4 % mouth/throat spray 1 spray 1 spray, Mouth/Throat, Every 2 hour PRN, sore throat, Starting on Mon02/09/24 at 2135, Instruct patient to spit out after 15 seconds. prochlorperazine (Compazine) injection 5 mg 5 mg, IntraVENous, Every 6 hours PRN, nausea, vomiting, Starting on Mon02/15/24 at 2046 2101 (Given - Provider: Dami aMrtell RN) senna-docusate sodium (Senokot-S) 8.6-50 MG tablet 2 tablet 2 tablet, Oral, Daily PRN, constipation, Starting on Samantha 02/15/24 at 1109 sodium chloride 0.9 % infusion 5-250 mL/hr, IntraVENous, PRN, if patient receiving piggyback infusions and maintenance fluids are not ordered OR KVO fluids to protect IV site / prevent frequent line interruptions/ long duration, Starting on Mon02/09/24 at 1526, Phase II/On Unit, For piggyback infusion, administer at same rate as piggyback for a total of 25 mL. Enter 25 mL into dose field and piggyback rate into rate field of order. If piggyback is infusing at a rate less than 100 mL/hr, enter 25 mL into dose field and 100 mL/hr into rate field of order. For KVO fluids, enter rate of 20 mL/hr or less into rate field of order. sodium chloride 0.9% (NS) flush 10 mL 10 mL, IntraVENous, PRN, line care, Starting on Mon02/09/24 at 1526, Phase II/On Unit, After every IV line use Linked Groups Order Group 1: lisinopril tablet 20 mgJump to med 20 mg, Oral, Daily, First dose on 02/11/24 at 1100 And hydroCHLOROthiazide (HYDRODiuril) tablet 25 mgJump to med 25 mg, Oral, Daily, First dose on Mon02/11/24 at 1100 Group 2: HYDROmorphone (Dilaudid) injection 0.5 mg (CANCELED)Jump to med 0.5 mg, IntraVENous, Every 4 hours PRN, moderate pain (4-6), Starting on Mon02/14/24 at 1500, Phase II/On Unit, If oral and IV narcotics ordered, use oral first and only use IV if oral is ineffective or cannot take oral. Do Not give oral and IV within 1 hour of each other unless specifically ordered. Or HYDROmorphone (Dilaudid) injection 1 mg (CANCELED)Jump to med 1 mg, IntraVENous, Every 4 hours PRN, severe pain (7-10), Starting on Mon02/14/24 at 1500, Phase II/On Unit, If oral and IV narcotics ordered, use oral first and only use IV if oral is ineffective or cannot take oral. Do Not give oral and IV within 1 hour of each other unless specifically ordered. Group 3: ondansetron ODT (Zofran-ODT) disintegrating tablet 4 mgJump to med 4 mg, Oral, Every 8 hours PRN, nausea, vomiting, Starting on Mon02/09/24 at 1526, Phase II/On Unit, 1st Line. If inadequate response within 60 minutes, proceed to next-line agent or contact provider if no further options ordered. Patient should allow tablet to dissolve on tongue. Do not remove from blister pack until just before administering. Or ondansetron (Zofran) injection 4 mgJump to med 4 mg, IntraVENous, Every 6 hours PRN, nausea, vomiting, Starting on Mon02/09/24 at 1526, Phase II/On Unit, 1st Line. Give IV if patient is unable to take orally. If inadequate response within 60 minutes, proceed to next-line agent or contact provider if no further options ordered. Group 4: oxyCODONE (Roxicodone) immediate release tablet 5 mgJump to med 5 mg, Oral, Every 4 hours PRN, moderate pain (4-6), Starting on Mon02/13/24 at 1526, Phase II/On Unit Or oxyCODONE (Roxicodone) immediate release tablet 10 mgJump to med 10 mg, Oral, Every 4 hours PRN, severe pain (7-10), Starting on Mon02/13/24 at 1526, Phase II/On Unit Care Teams (unrecognized sec tion and content) Planer Setup Operator Relationship Specialty Start Date End Date Leonid Dee MD [address] [facility] [place] [address] PCP - General 12/19/16 Planer Setup Operator Relationship Specialty Start Date End Date Leonid Dee Jr. [address] [place] [address] PCP - General Family Practice 06/27/17 Wanda Molina PA-C 1309 [facility] 100 [place] [address] Women's Health Specialist 11/22/17 Planer Setup Operator Relationship Specialty Start Date End Date Leonid Dee MD [address] [place] [address] PCP - General 12/19/16 Planer Setup Operator Relationship Specialty Start Date End Date Leonid Dee Jr. [address] [place] [address] PCP - General Family Medicine 06/27/17 Wanda Molina PA-C [address] [phone] Women's Health Specialist 11/22/17 Planer Setup Operator Relationship Specialty Start Date End Date Leonid Dee Jr. [address] [place] [address] PCP - General Family Medicine 06/27/17 Wanda Molina PA-C [address] [phone] Women's Health Specialist 11/22/17 Planer Setup Operator Relationship Specialty Start Date End Date Leonid Dee MD [address] [place] [address] PCP - General 12/19/16 Planer Setup Operator Relationship Specialty Start Date End Date Leonid Dee Jr. [address] [place] [address] PCP - General Family Medicine 06/27/17 Wanda Molina PA-C [address] [address] Women's Health Specialist 11/22/17 Planer Setup Operator Relationship Specialty Start Date End Date Leonid Dee Jr. [address] [facility] [address] PCP - General Family Medicine 06/27/17 Wanda Molina PA-C [address] [facility] [address] [phone] Women's Health Specialist 11/22/17 Planer Setup Operator Relationship Specialty Start Date End Date Leonid Dee MD [address] [place], [place] [address] [address] PCP - General 12/19/16 Planer Setup Operator Relationship Specialty Start Date End Date Leonid Dee MD [address] [place], [place] [address]gl[address] [facility] [place] [address] PCP - General 12/19/16 Planer Setup Operator Relationship Specialty Start Date End Date Leonid Dee MD [address] [place] [address] [place] [address] PCP - General 12/19/16 Planer Setup Operator Relationship Specialty Start Date End Date Leonid Dee MD [address] [place], [place] [address] [facility] [place] [address] PCP - General 12/19/16 Planer Setup Operator Relationship Specialty Start Date End Date Leonid Dee MD [address] [place], [place] [address] [place]oria [facility] [place] [address] PCP - General 12/19/16 Planer Setup Operator Relationship Specialty Start Date End Date Leonid Dee Jr. [address] [place] [address] PCP - General Family Medicine 06/27/17 Wanda Molina PA-C [address] [phone] Women's Health Specialist 11/22/17 Planer Setup Operator Relationship Specialty Start Date End Date Leonid Dee MD [address] [place] [address] PCP - General 12/19/16 Planer Setup Operator Relationship Specialty Start Date End Date Leonid Dee Jr. [address] [place] [address] PCP - General Family Medicine 06/27/17 Wanda Molina PA-C [address] [place] [phone] Women's Health Specialist 11/22/17 Carine Mcknight, QUETA Specialty Diesel Engine Inspector Orthopedics 10/16/23 01/26/24 Rubén Jimenes MD [address] [address] Home Care Provider Orthopedics 10/17/23 Kimmy Alexandre APRN.SUPER[employer] [address] [place], [place] [id number] Referring Internal Medicine 10/17/23 Conner Stoll, PT [address] [place], [place] [id number] Stock Plan Administrator Post Acute Care 10/17/23 Planer Setup Operator Relationship Specialty Start Date End Date Leonid Dee Jr. [address] [place] [phone] PCP - General Family Medicine 06/27/17 Wanda Molina PA-C [address] [address] Women's Health Specialist 11/22/17 Carine Mcknight, RN Specialty Diesel Engine Inspector Orthopedics 10/16/23 01/26/24 Rubén Jimenes MD [address] [place], [place] [phone] Home Care Provider Orthopedics 10/17/23 Kimmy Alexandre APRN.SUPER[employer] [address] [place] [address] Referring Internal Medicine 10/17/23 Conner Stoll, PT [address] [place], [place] [phone] Stock Plan Administrator Post Acute Care 10/17/23 Planer Setup Operator Relationship Specialty Start Date End Date Leonid Dee Jr. [address] [place] [address] PCP - General Family Medicine 06/27/17 Wanda Molina PA-C [address] [address] Women's Health Specialist 11/22/17 Carine Mcknight, RN Specialty Diesel Engine Inspector Orthopedics 10/16/23 01/26/24 Rubén Jimenes MD [address] [place] [address] Home Care Provider Orthopedics 10/17/23 Kimmy Alexandre APRN.SUPERVIS[employer] [address] [place] [address] Referring Internal Medicine 10/17/23 Conner Stoll, PT [address] [place] [address] Stock Plan Administrator Post Acute Care 10/17/23 Planer Setup Operator Relationship Specialty Start Date End Date Leonid Dee Jr. [address] [place] [address] PCP - General Family Medicine 06/27/17 Wanda Molina PA-C 1309 [facility] 100 [place], [place] [phone] Women's Health Specialist 11/22/17 Carine Mcknight, QUETA Specialty Diesel Engine Inspector Orthopedics 10/16/23 01/26/24 Rubén Jimenes MD 224 [facility] [address] [place], [place] [phone] Home Care Provider Orthopedics 10/17/23 Kimmy Alexandre APRN.SUPERVIS[employer] [address] [place] [address] Referring Internal Medicine 10/17/23 Conner Stoll, PT [address] [place] [address] Stock Plan Administrator Post Acute Care 10/17/23 Planer Setup Operator Relationship Specialty Start Date End Date Leonid Dee Jr. [address] [place] [address] PCP - General Family Medicine 06/27/17 Wanda Molina PA-C 1309 [facility] [address] [place] [address] Women's Health Specialist 11/22/17 Carine Mcknight, RN Specialty Diesel Engine Inspector Orthopedics 10/16/23 01/26/24 uRbén Jimenes MD [address] [place] [address] Home Care Provider Orthopedics 10/17/23 Kimmy Alexandre APRN.SUPERVIS[employer] [address] [place], [place] [id number] Referring Internal Medicine 10/17/23 Conner Stoll, PT [address] [place], [place] [phone] Stock Plan Administrator Post Acute Care 10/17/23 Planer Setup Operator Relationship Specialty Start Date End Date Leonid Dee Jr. [address] [place] [address] PCP - General Family Medicine 06/27/17 Wanda Molina PA-C [address] [address] Women's Health Specialist 11/22/17 Carine Mcknight, QUETA Specialty Diesel Engine Inspector Orthopedics 10/16/23 01/26/24 Rubén Jimenes MD [address] [place] [address] Home Care Provider Orthopedics 10/17/23 Kimmy Alexandre APRN.SUPER[employer] [address] [place] [address] Referring Internal Medicine 10/17/23 Conner Stoll, PT [address] [place] [address] Stock Plan Administrator Post Acute Care 10/17/23 Planer Setup Operator Relationship Specialty Start Date End Date Leonid Dee MD [address] [place] [address] PCP - General 12/19/16 Planer Setup Operator Relationship Specialty [place] [address] [place], [place] [address] [address] PCP - General 12/19/16 Planer Setup Operator Relationship Specialty [place] [address] [place] [address] PCP - General 12/19/16 Planer Setup Operator Relationship Specialty Start Date End Date Leonid Dee MD [address] [place] [address] PCP - General 12/19/16 Planer Setup Operator Relationship Specialty Start Date End Date Leonid Dee Jr. [address] [place] [address] PCP - General Family Medicine 06/27/17 Wanda Molina PA-C [address] [address] Women's Health Specialist 11/22/17 Carine Mcknight, QUETA Specialty Diesel Engine Inspector Orthopedics 10/16/23 01/26/24 Rubén Jimenes MD [address] [phone] Home Care Provider Orthopedics 10/17/23 Kimmy Alexandre APRN.SUPERVIS[employer] [address] [place], [place] [id number] Referring Internal Medicine 10/17/23 Planer Setup Operator Relationship Specialty Start Date End Date Leonid Dee Jr. 119[address] [facility] [place] [address] PCP - General Family Medicine 06/27/17 Wanda Molina PA-C [address] [phone] Women's Health Specialist 11/22/17 Carine Mcknight, QUETA Specialty Diesel Engine Inspector Orthopedics 10/16/23 01/26/24 Rubén Jimenes MD [address] [address] Home Care Provider Orthopedics 10/17/23 Kimmy Alexandre, MINNA.SUPERVISOR [employer] [address] [place], [place] [id number] Referring Internal Medicine 10/17/23 Planer Setup Operator Relationship Specialty Start Date End Date Leonid Dee MD [address] [facility] [place] [address] PCP - General 12/19/16 Planer Setup Operator Relationship Specialty Start Date End Date Leonid Dee MD [address] [facility] [place] [address] PCP - General 12/19/16 Planer Setup Operator Relationship Specialty [place] [address] [place], [place] [address] [address] PCP - General 12/19/16 Planer Setup Operator Relationship Specialty Start Date End Date Leonid Dee MD [address] [place], [place] [address] [address] PCP - General 12/19/16 Planer Setup Operator Relationship Specialty Start Date End Date Leonid Dee MD [facility] [place] [address] PCP - General 12/19/16 Planer Setup Operator Relationship Specialty Start Date End Date Leonid Dee MD [address] [place] [address] PCP - General 12/19/16 Planer Setup Operator Relationship Specialty Start Date End Date Leonid Dee Jr. [address] [place] [address] PCP - General Family Medicine 06/27/17 Wanda Molina PA-C [address] [address] Women's Health Specialist 11/22/17 Rubén Jimenes MD [address] [phone] Home Care Provider Orthopedics 10/17/23 Kimmy Alexandre APRN.SUPERVISOR [employer] [address] [place], [place] [id number] Referring Internal Medicine 10/17/23 Planer Setup Operator Relationship Specialty [place] [address] [place] [address] PCP - General 12/19/16 Planer Setup Operator Relationship Specialty Start Date End Date Leonid Dee MD [address] [place] [address] PCP - General 12/19/16 Planer Setup Operator Relationship Specialty Start Date End Date Leonid Dee MD [address] [place] [address] PCP - General 12/19/16 Planer Setup Operator Relationship Specialty Start Date End Date Leonid Dee Jr. [address] [place] [address] PCP - General Family Medicine 06/27/17 Wanda Molina PA-C [address] [address] Women's Health Specialist 11/22/17 Rubén Jimenes MD [address] [address] Home Care Provider Orthopedics 10/17/23 Kimmy Alexandre APRN.SUPERVISOR [employer] [address] [place], [place] [id number] Referring Internal Medicine 10/17/23 Planer Setup Operator Relationship Specialty Start Date End Date Leonid Dee Jr. [address] [place] [phone] PCP - General Family Medicine 06/27/17 Wanda Molina PA-C [address] [address] Women's Health Specialist 11/22/17 Rubén Jimenes MD [address] [address] Home Care Provider Orthopedics 10/17/23 Kimmy Alexandre APRN.SUPERVISOR [employer] [address] [place] [address] Referring Internal Medicine 10/17/23 Planer Setup Operator Relationship Specialty Start Date End Date Leonid Dee Jr. [address] [place] [phone] PCP - General Family Medicine 06/27/17 Wanda Molina PA-C [address] [place] [address] Women's Health Specialist 11/22/17 Rubén Jimenes MD [address] [address] Home Care Provider Orthopedics 10/17/23 Kimmy Alexandre APRN.SUPERVISOR [employer] [address] [place] [address] Referring Internal Medicine 10/17/23 Planer Setup Operator Relationship Specialty Start Date End Date Leonid Dee Jr. [facility] [place] [phone] PCP - General Family Medicine 06/27/17 Wanda Molina PA-C [address] [address] Women's Health Specialist 11/22/17 Rubén Jimenes MD [address] [address] Home Care Provider Orthopedics 10/17/23 Kimmy Alexandre APRN.SUPERVISOR [employer] [address] [place] [address] Referring Internal Medicine 10/17/23 Planer Setup Operator Relationship Specialty Start Date End Date Leonid Dee Jr. [facility] [place] [phone] PCP - General Family Medicine 06/27/17 Wanda Molina PA-C [address] [address] Women's Health Specialist 11/22/17 Rubén Jimenes MD [address] [address] Home Care Provider Orthopedics 10/17/23 Kimmy Alexandre APRN.SUPERVISOR P[employer] [address] [place], [place] [id number] Referring Internal Medicine 10/17/23 Planer Setup Operator Relationship Specialty Start Date End Date Leonid Dee Jr. [facility] [place] [phone] PCP - General Family Medicine 06/27/17 Wanda Molina PA-C [address] [address] Women's Health Specialist 11/22/17 Rubén Jimenes MD [address] [place] [address] Home Care Provider Orthopedics 10/17/23 Kimmy Alexandre APRN.SUPERVISOR P[employer] [address] [place] [address] Referring Internal Medicine 10/17/23 Planer Setup Operator Relationship Specialty Start Date End Date Leonid Dee Jr. [address] [place] [phone] PCP - General Family Medicine 06/27/17 Wanda Molina PA-C [address] [address] Women's Health Specialist 11/22/17 Rubén Jimenes MD [address] [address] Home Care Provider Orthopedics 10/17/23 Kimmy Alexandre APRN.SUPERVISOR [employer] [address] [place] [address] Referring Internal Medicine 10/17/23 Planer Setup Operator Relationship Specialty Start Date End Date Leonid Dee Jr. [facility] [place] [address] PCP - General Family Medicine 06/27/17 Wanda Molina PA-C 1309 [facility] [address] [place] [address] Women's Health Specialist 11/22/17 Rubén Jimenes MD [address] [facility] [address] [place] [address] Home Care Provider Orthopedics 10/17/23 Kimmy Alexandre APRN.[facility] 1 [place] [address] Referring Internal Medicine 10/17/23 Source Comments (unrecognize d section and content) In the event this informatio n is protected by the Federal Confidentiality of Alcohol and Drug Abuse Patient Records regulations: The Federal rules restrict any use of the information to criminally investigate or prosecute any alcohol or drug abuse patient.[facility] the event this information is protected by the Federal Confidentiality of Alcohol and Drug Abuse Patient Records regulations: The Federal rules restrict any use of the information to criminally investigate or prosecute any alcohol or drug abuse patient.[facility] the event this information is protected by the Federal Confidentiality of Alcohol and Drug Abuse Patient Records regulations: The Federal rules restrict any use of the information to criminally investigate or prosecute any alcohol or drug abuse patient.[facility] the event this information is protected by the Federal Confidentiality of Alcohol and Drug Abuse Patient Records regulations: The Federal rules restrict any use of the information to criminally investigate or prosecute any alcohol or drug abuse patient.[facility] the event this information is protected by the Federal Confidentiality of Alcohol and Drug Abuse Patient Records regulations: The Federal rules restrict any use of the information to criminally investigate or prosecute any alcohol or drug abuse patient.[facility] the event this information is protected by the Federal Confidentiality of Alcohol and Drug Abuse Patient Records regulations: The Federal rules restrict any use of the information to criminally investigate or prosecute any alcohol or drug abuse patient.[facility] the event this information is protected by the Federal Confidentiality of Alcohol and Drug Abuse Patient Records regulations: The Federal rules restrict any use of the information to criminally investigate or prosecute any alcohol or drug abuse patient.[facility] the event this information is protected by the Federal Confidentiality of Alcohol and Drug Abuse Patient Records regulations: The Federal rules restrict any use of the information to criminally investigate or prosecute any alcohol or drug abuse patient.[facility] the event this information is protected by the Federal Confidentiality of Alcohol and Drug Abuse Patient Records regulations: The Federal rules restrict any use of the information to criminally investigate or prosecute any alcohol or drug abuse patient.[facility] the event this information is protected by the Federal Confidentiality of Alcohol and Drug Abuse Patient Records regulations: The Federal rules restrict any use of the information to criminally investigate or prosecute any alcohol or drug abuse patient.[facility] the event this information is protected by the Federal Confidentiality of Alcohol and Drug Abuse Patient Records regulations: The Federal rules restrict any use of the information to criminally investigate or prosecute any alcohol or drug abuse patient.[facility] the event this information is protected by the Federal Confidentiality of Alcohol and Drug Abuse Patient Records regulations: The Federal rules restrict any use of the information to criminally investigate or prosecute any alcohol or drug abuse patient.[facility] the event this information is protected by the Federal Confidentiality of Alcohol and Drug Abuse Patient Records regulations: The Federal rules restrict any use of the information to criminally investigate or prosecute any alcohol or drug abuse patient.[facility] the event this information is protected by the Federal Confidentiality of Alcohol and Drug Abuse Patient Records regulations: The Federal rules restrict any use of the information to criminally investigate or prosecute any alcohol or drug abuse patient.[facility] the event this information is protected by the Federal Confidentiality of Alcohol and Drug Abuse Patient Records regulations: The Federal rules restrict any use of the information to criminally investigate or prosecute any alcohol or drug abuse patient.[facility] the event this information is protected by the Federal Confidentiality of Alcohol and Drug Abuse Patient Records regulations: The Federal rules restrict any use of the information to criminally investigate or prosecute any alcohol or drug abuse patient.[facility] the event this information is protected by the Federal Confidentiality of Alcohol and Drug Abuse Patient Records regulations: The Federal rules restrict any use of the information to criminally investigate or prosecute any alcohol or drug abuse patient.[facility] the event this information is protected by the Federal Confidentiality of Alcohol and Drug Abuse Patient Records regulations: The Federal rules restrict any use of the information to criminally investigate or prosecute any alcohol or drug abuse patient.[facility]ullIn the event this information is protected by the Federal Confidentiality of Alcohol and Drug Abuse Patient Records regulations: The Federal rules restrict any use of the information to criminally investigate or prosecute any alcohol or drug abuse patient.[facility]ullIn the event this information is protected by the Federal Confidentiality of Alcohol and Drug Abuse Patient Records regulations: The Federal rules restrict any use of the information to criminally investigate or prosecute any alcohol or drug abuse patient.[facility]In the event this information is protected by the Federal Confidentiality of Alcohol and Drug Abuse Patient Records regulations: The Federal rules restrict any use of the information to criminally investigate or prosecute any alcohol or drug abuse patient.[facility] the event this information is protected by the Federal Confidentiality of Alcohol and Drug Abuse Patient Records regulations: The Federal rules restrict any use of the information to criminally investigate or prosecute any alcohol or drug abuse patient.[facility] the event this information is protected by the Federal Confidentiality of Alcohol and Drug Abuse Patient Records regulations: The Federal rules restrict any use of the information to criminally investigate or prosecute any alcohol or drug abuse patient.[facility] the event this information is protected by the Federal Confidentiality of Alcohol and Drug Abuse Patient Records regulations: The Federal rules restrict any use of the information to criminally investigate or prosecute any alcohol or drug abuse patient.[facility]In the event this information is protected by the Federal Confidentiality of Alcohol and Drug Abuse Patient Records regulations: The Federal rules restrict any use of the information to criminally investigate or prosecute any alcohol or drug abuse patient.[facility]ullIn the event this information is protected by the Federal Confidentiality of Alcohol and Drug Abuse Patient Records regulations: The Federal rules restrict any use of the information to criminally investigate or prosecute any alcohol or drug abuse patient.[facility]ullIn the event this information is protected by the Federal Confidentiality of Alcohol and Drug Abuse Patient Records regulations: The Federal rules restrict any use of the information to criminally investigate or prosecute any alcohol or drug abuse patient.[facility]ullIn the event this information is protected by the Federal Confidentiality of Alcohol and Drug Abuse Patient Records regulations: The Federal rules restrict any use of the information to criminally investigate or prosecute any alcohol or drug abuse patient.[facility]ullIn the event this information is protected by the Federal Confidentiality of Alcohol and Drug Abuse Patient Records regulations: The Federal rules restrict any use of the information to criminally investigate or prosecute any alcohol or drug abuse patient.[facility] FOR RECORDS PERTAINING TO PATIENTS WHO ARE OR HAVE BEEN ENROLLED IN A CHEMICAL DEPENDENCY/SUBSTANCEABUSE PROGRAM, SOME INFORMATION MAY BE OMITTED. This clinical summary was aggregated from multiple sources. Caution should be exercised in using it in the provision of clinical care. This summary normalizes information from multiple sources, and as a consequence, information in this document may materially change the coding, format and clinical context of patient data. In addition, data may be omitted in some cases. CLINICAL DECISIONS SHOULD BE BASED ON THE PRIMARY CLINICAL RECORDS. [employer] [facility]. provides no warranty or guarantee of the accuracy or completeness of information in this document. Comprehensive CCD (C-CDA v2.1) Created on: July 13, 2024 SEMAJ, MRS. PRISCILA Davis : 1955 Sex: Female Author Organization [facility] Care Team Providers Care Planer Setup Operator Name Role Phone WESLEY LOPEZ Attending Unavailable LEONID DEE Referring Unavailable LEONID DEE Primary Care Unavailable Leonid Dee Primary Care Provider [phone] Leonid Dee Primary Care Provider Leonid Dee MD Primary Care Provider [phone] Leonid Dee Jr. Primary Care Provider Wanda Molina PA-C Unavailable [phone] Leonid Dee MD Primary Care Provider [phone] Leonid Dee Primary Care Unavailable PROVIDER, UNKNOWN Referring Unavailable MEGAN, DONI Attending Unavailable IFTIKHAR DAI Attending Unavailabl e PROVIDER, UNKNOWN Referring Unavailable Leonid Dee Primary Care Unavailable PROVIDER, UNKNOWN Referring Unavailable April Encinas Attending Unavailable Leonid Dee Primary Care Unavailable Leila JrLeonid Lynn Primary Care Provider Wanda Molina PA-C Unavailable Leonid Dee MD Primary Care Provider Oswaldo BIRCH, Carine Unavailable Unavailable Rubén Jimenes MD Unavailable [employer] ENGRAVINGS POLISHER.SUPERVISOR POWDERED METAL, Kimmy Unavailable [phone] Dodie PT, Conner Unavailable MITZI WANG Attending Unavailable LEILA GRAY, LEONID DOMINGUEZ Referring Unavaila ble DEE JR, [facility] Primary Care Unavaila ble Dee Jr., [facility] Primary Care Provider JEFE ARIAS Admitting Unavailable JEFE ARIAS Attending Unavailable JEFE ARIAS Referring Unavailable DEE, LEONID Primary Care Unavailable KAREEM, ADRIA Admitting Unavailable KAREEM, ADRIA Attending Unavailable DEE, LEONID Primary Care Unavailable APRIL ENCINAS Consulting Unavailable DUDDELLALISA Consulting Unavailable DEE, LEONID Primary Care Unavailable GOPI, THU Admitting Unavailable RYAN NAIK Attending Unavailable KIA MATOS Consulting Unavailable DEE, LEONID Primary Care Unavailable KAREEM, ADRIA Admitting Unavailable KAREEM, ADRIA Attending Unavailable ИРИНА TOLEDO Consulting Unavailabl e KAREEM, ADRIA Attending Unavailable DEE, LEONID Primary Care Unavailable KAREEM, ADRIA Attending Unavailable DEE, LEONID Primary Care Unavailable KAREEM, ADRIA Attending Unavailable DEE, LEONID Primary Care Unavailable KAREEM, ADRIA Attending Unavailable DEE, LEONID Primary Care Unavailable KAREEM, ADRIA Attending Unavailable DEE, LEONID Primary Care Unavailable KAREEM, ADRIA Attending Unavailable DEE, LEONID Primary Care Unavailable KAREEM, ADRIA Attending Unavailable DEE, LEONID Primary Care Unavailable KAREEM, ADRIA Attending Unavailable DEE, LEONID Primary Care Unavailable KAREEM, ADRIA Attending Unavailable DEE, LEONID Primary Care Unavailable HELEN COVINGTON Attending Unavailable HELEN COVINGTON Referring Unavailable DEE, LEONID Primary Care Unavailable HELEN COVINGTON Attending Unavailable DEE, LEONID Primary Care Unavailable RUBÉN JIMENES Attending Unavailable DEE JR, [facility] Primary Care Unavaila ble DEE JR, [facility] Primary Care Unavaila ble ANNABEL ZAVALA Attending Unavailab le SELF Referring Unavailable DEE JR, [facility] Primary Care Unavaila ble FEGATELLI, LAVERN Referring Unavailable DEE JR, [facility] Primary Care Unavaila ble FEGATELLIJERMAINENA Attending Unavailable RUBÉN JIMENES Referring Unavailable JALIL, RUBÉN Admitting Unavailable DEE JR, [facility] Primary Care Unavaila ble RUBÉN JIMENES Attending Unavailable DEE JR, [facility] Primary Care Unavaila ble JIMENES, RUBÉN Attending Unavailable LEILA GRAY, LEONID [facility] Unavaila ble JIMENES, RUBÉN Attending Unavailable LEILA JR, LEONID [facility] Unavaila ble JIMENES, RUBÉN Attending Unavailable JIMENES, RUBÉN Referring Unavailable LEILA JR, LEONID [facility] Unavaila ble BENDEL, CRUZ Referring Unavailable LEILA GRAY, LEONID [facility] Unavaila ble JIMENES, RUBÉN Referring Unavailable LEILA GRAY, LEONID [facility] Unavaila ble Allergies Allergy Classification Reported Allergen(s) Allergy Type Date of Onset Reaction(s) Facility NSAIDs (6 sources) Ibuprofen Drug Allergy 4 Other: See Comments [facility] Opioid Agonists (2 sources) Codeine Drug Allergy 9 [facility] Work Phone: Quinolones (antibiotic) (3 sources) levoFLOXacin Drug Allergy 7 GI Upset [facility] Sulfonamides (antibiotic) (5 sources) Sulfonamides (Antibiotic) Drug Allergy 7 Vomiting, GI Upset [facility] Work Phone: (20 sources) levoFLOXacin; Translations: [LEVOFLOXACIN] Drug Allergy 7 GI Upset [facility] (20 sources) Sulfonamides (Antibiotic); Translations: [SULFA (SULFONAMIDE ANTIBIOTICS)] Propensity to adverse reactions (disorder) 7 Vomiting, GI Upset [facility] (20 sources) Codeine Drug Allergy 9 [place] (5 sources) Sulfonamides (Antibiotic) Propensity to adverse reactions to drug 9 [place] (20 sources) Sulfonamides (Antibiotic) Drug Intolerance 7 [facility] (12 sources) Ibuprofen; Translations: [IBUPROFEN] Drug Allergy 4 Other: See Comments [facility] (7 sources) Ketorolac trometamol; Translations: [KETOROLAC TROMETHAMINE] Propensity to adverse reactions 4 [facility] (5 sources) Ketorolac Drug Allergy 4 Other: See Comments [facility] Medications Current Medications Medication Drug Class(es) Dates Sig (Normalized) Sig (Original) [id number] 200 actuat albuterol 0.09 mg/actuat metered dose inhaler (20 sources) beta2-Adrenergic Agonist Start: 06-19-2022 End: 06-21-2022 2.5 mg, Nebulization, 4 TIMES DAILY, First dose on 06/19/22 at 2215, Until Discontinued Initiate RT Bronchodilator Protocol: Yes Start: 11-19-2019 End: 03-05-2024 take 2 puff(s) by inhalation every four hours as needed for wheezing albuterol 108 (90 Base) MCG/ACT inhaler Inhale 2 puffs every 4 hours as needed for shortness of breath or wheezing. 11/24/2022 Active Start: 11-19-2019 take 2 puff(s) by in halation every four hours as needed for wheezing albuterol sulfate HFA (VENTOLIN HFA) 108 (90 Base) MCG/ACT inhaler Inhale 2 puffs into the lungs every 4 hours as needed for Wheezing With MDI please. 1 Inhaler 1 11/19/2019 Active Start: 11-19-2019 albuterol (PRO VENTIL) nebulizer solution 2.5 mg Comment on above: Inhale 2 Puffs as in structed every 4 hours as needed for wheezing/shortness of breath. albuterol 0.833 mg/ml / ipratropium bromide 0.167 mg/ml inhalation solution (4 sources) Anticholinergic, beta2-Adrenergic Agonist Start: 06-22-2022 ipratropium-albutero l (DUONEB) nebulizer solution 1 ampule Start: 06-19-2022 End: 06-22-2022 ipratropium-albuterol (DUONE B) nebulizer solution 1 ampule amoxicillin 875 mg / clavulanate 125 mg oral tablet (12 sources) Penicillin-class Antibacterial Start: 03-08-2024 End: 03-15-2024 take 1 tablet by mouth every twelve hours amoxicillin-clavulanate potassium (AUGMENTIN) 875-125 mg per tablet Take 1 tablet by mouth every 12 hours for 7 days. 14 tablet 0 03/08/2024 03/15/2024 Active Start: 11-10-2023 End: 11-17-2023 take 1 tablet by mouth in the morning amoxicillin-clavulanate (Augmentin) 875-125 MG tablet Take 1 tablet by mouth in the morning and 1 tablet before bedtime. Do all this for 7 days. 14 tablet 0 11/10/2023 11/17/2023 Active Start: 11-10-2023 End: 11-10-2023 amoxicillin-clavulanate (Aug mentin) 875-125 MG per tablet 1 tablet Start: 10-21-2023 End: 03-05-2024 take 1 tablet by mouth every twelve hours amoxicillin-clavulanate potassium (AUGMENTIN) 875-125 mg per tablet 1 tablet Orally every 12 hrs for 10 days 0 10/21/2023 03/05/2024 Discontinued Start: 07-03-2023 End: 07-05-2023 amoxicillin-clavulanate (Aug mentin) 875-125 MG per tablet 1 tablet cefdinir 300 mg oral capsule (9 sources) Cephalosporin Antibacterial Start: 07-10-2023 End: 08-03-2023 take 1 capsule by mouth twice daily cefdinir (Omnicef) 300 MG capsule Take 1 capsule (300 mg) by mouth 2 times daily for 24 days. 48 capsule 0 07/10/2023 08/03/2023 Active cholecalciferol 0.025 mg oral tablet (20 sources) Vitamin D Start: 10-18-2023 take 2 tablets by mouth once daily cholecalciferol (VITAMIN D3) 1,000 unit tab tablet 2 tabs Orally Once a day 10/18/2023 Active Comment on above: 2 tabs Orally Once a day cyclobenzaprine hydrochloride 10 mg oral tablet (6 sources) Muscle Relaxant Start: 04-10-2021 End: 06-22-2022 take 1 tablet by mouth three times daily as needed for muscle spasms cyclobenzaprine (FLEXERIL) 10 MG tablet Take 1 tablet by mouth 3 times daily as needed for Muscle spasms 21 tablet 0 04/10/2021 06/22/2022 Discontinued (Stop Taking at Discharge) doxycycline hyclate 100 mg oral capsule (3 sources) Tetracycline-class Drug Start: 06-22-2022 End: 06-22-2023 take 1 capsule by mouth once daily in the morning, then take 1 capsule by mouth once daily in the evening doxycycline (Vibramycin) 100 MG capsule TAKE ONE CAPSULE BY MOUTH EVERY MORNING AND ONE CAPSULE EVERY EVENING FOR 5 DAYS 10 capsule 0 06/22/2022 06/22/2023 Active Start: 06-19-2022 End: 06-24-2022 100 mg, Oral, EVERY 12 HOURS , 10 doses, First dose on Mon06/19/22 at 2215, Last dose on Mon06/24/22 at 1015 Antimicrobial Indications: COPD Exacerbation COPD exacerbation duration of therapy: 5 days This medication can interact with tube feedings (TF)- obtain MD order to manage. Recommend holding TF for 1 h before and 2 h after dose. Take 1 h before or 2 h after dairy, calcium, iron, magnesium, aluminum or zinc. fexofenadine (3 sources) Histamine-1 Receptor Antagonist fexofenadine HCl (PRIYANKA ORAL) Take by mouth. Active fluticasone propionate 0.05 mg/actuat metered dose nasal spray (8 sources) Corticosteroid Start: 01-25-20 take 1-2 spray(s) nasal route once daily fluticasone (FLONASE) 50 mcg/actuation nasal spray 1-2 spray in each nostril Nasally Once a day for 30 days 01/25/2024 Active 30 actuat fluticasone furoate 0.1 mg/actuat / umeclidinium 0.0625 mg/actuat / vilanterol 0.025 mg/actuat dry powder inhaler (20 sources) Anticholinergic, Corticosteroid, beta2-Adrenergic Agonist Start: 11-23-19 24 TRELEGY ELLIPTA 100-62.5-25 mcg inhalation powder 11/23/2023 Active Start: 11-04-2023 End: 11-10-2023 Bifkhlxrekx-Ctmmczwya-Sbwgny 100-62.5-25 MCG/ACT aerosol powder 1 puff Start: 07-03-2023 End: 07-10-2023 Bzywekbkxgw-Ynzdosvda-Vltfhz 100-62.5-25 MCG/ACT aerosol powder 1 puff Start: 01-06-2023 take 1 puff(s) by inhalation once daily Jkpvybudsbl-Haxxwdruj-Ddcagf (Trelegy Ellipta) 100-62.5-25 MCG/ACT aerosol powder Inhale 1 puff daily. 01/06/2023 Active Start: 01-06-2023 TRELEGY ELLIPT A 100-62.5-25 mcg inhalation powder take 1 puff(s) by inhalation once daily uugtddgtxhd-gqqyxgenc-xgncnq (TRELEGY ELLIPTA) 100-62.5-25 MCG/INH AEPB Inhale 1 puff into the lungs daily 0 Active xvmbtthzsgi-wtjcvgtaa-fzehlp er (TRELEGY ELLIPTA) 200-62.5-25 mcg inhalation powder (8 sources) fluticasone-umec lidin-vilanter (TRELEGY ELLIPTA) 200-62.5-25 mcg inhalation powder 1 Puff. Active fluticasone-umec lidin-vilanter (TRELEGY ELLIPTA) 200-62.5-25 mcg inhalation powder 1 Puff. 0 Active glucagon (rdna) 1 mg injection (1 source) Antihypoglycemic Agent Start: 06-20-2022 glucago n (rDNA) injection 1 mg 150 ml glucose 50 mg/ml injection (3 sources) Start: 06-20-2022 glucose (GLUTO SE) 40 % oral gel 15 g Start: 06-20-2022 dextrose 50 % IV solution Start: 06-20-2022 dextrose 5 % s olution HERBAL THERAPY (20 sources) Start: 10-18-2023 HERBAL THERAPY CBD Gummie- Take one by mouth daily at bedtime as needed for insomnia 10/18/2023 Active Start: 10-18-2023 HERBAL THERAPY CBD Gummie- Take one by mouth daily at bedtime as needed for insomnia 0 10/18/2023 Active Comment on above: CBD Gummie- Take one by mouth daily at bedtime as needed for insomnia hydroCHLOROthiazide 25 mg / lisinopril 20 mg oral tablet (20 sources) Thiazide Diuretic, Angiotensin Converting Enzyme Inhibitor Start: 12-15-19 24 End: 01-14-20 24 take 1 tablet by mouth once daily lisinopril-hydroC HLOROthiazide (ZESTORETIC) 20-25 mg per tablet 1 tablet Orally Once a day for 90 days 12/15/2023 Active insulin lispro 100 unt/ml injectable solution (2 sources) Insulin Analog Start: 06-20-20 22 insulin lispro (HUMALOG) injection vial 0-4 Units Magnesium glycinate (20 sources) Start: 10-18-19 24 take 400 mg by mouth once daily MAGNESIUM GLYCINATE ORAL Take 400 mg by mouth once daily. 10/18/2023 Active Start: 10-18-2023 take 400 mg by mouth once mahnaz y MAGNESIUM GLYCINATE ORAL Take 400 mg by mouth once daily. 0 10/18/2023 Active Comment on above: Take 400 mg by mouth once daily. magnesium hydroxide 80 mg/ml oral suspension (1 source) Start: 2 magnesium hydroxide (MILK OF MAGNESIA) 400 MG/5ML suspension 30 mL meclizine hydrochloride 12.5 mg oral tablet (2 sources) Antiemetic Start: 2 End: 2 take 1 tablet by mouth three times daily as needed for nausea meclizine (ANTIVERT) 12.5 MG tablet Take 1 tablet by mouth 3 times daily as needed for Dizziness or Nausea 30 tablet 0 10/17/2021 10/27/2021 Active Start: 10-15-2021 take 12.5 mg by mout h three times daily as needed for dizziness 12.5 mg, Oral, 3 TIMES DAILY PRN, Dizziness, Starting on Mon10/15/21 at 1446 metroNIDAZOLE 500 mg oral tablet (9 sources) Nitroimidazole Antimicrobial Start: 07-10-2023 End: 08-03-2023 take 1 tablet by mouth three times daily metroNIDAZOLE (Flagyl) 500 MG tablet Take 1 tablet (500 mg) by mouth 3 times daily for 24 days. 72 tablet 0 07/10/2023 08/03/2023 Active mometasone-formoter ol (DULERA) 100-5 MCG/ACT inhaler 2 puff (1 source) Start: 06-20-2022 mometasone-formote rol (DULERA) 100-5 MCG/ACT inhaler 2 puff Multiple Vitamin (MULTI-DAY PO) (7 sources) Multiple Vitamin (MULTI-DAY PO) Take by mouth 0 Active 24 hr nicotine 0.875 mg/hr transdermal system (1 source) Cholinergic Nicotinic Agonist Start: 01-16-2022 apply 1 dose transdermal route once daily nicotine (NICODERM CQ) 21 MG/24HR Place 1 patch onto the skin daily 30 patch 3 01/16/2022 Active nitrofurantoin, macrocrystals 25 mg / nitrofurantoin, monohydrate 75 mg oral capsule (1 source) Nitrofuran Antibacterial Start: 03-11-2024 End: 03-16-2024 take 1 capsule by mouth twice daily nitrofurantoin monohydrate and macrocrystal (MACROBID) 100 mg capsule Take 1 capsule by mouth two times a day for 5 days. 10 capsule 0 03/11/2024 03/16/2024 Active ondansetron (ZOFRAN-ODT) disintegrating tablet 4 mg (1 source) Start: 10-15-2021 ondansetron (ZOFRAN-ODT) disintegrating tablet 4 mg pantoprazole 40 mg delayed release oral tablet (9 sources) Proton Pump Inhibitor Start: 02-14-2024 End: 02-16-2025 take 1 tablet by mouth once daily before breakfast pantoprazole (ProtoNix) 40 MG EC tablet Take 1 tablet (40 mg) by mouth every morning (before breakfast). Do not crush, chew, or split. 30 tablet 11 02/17/2024 02/16/2025 Active perflutren lipid microspheres (DEFINITY) injection 1.65 mg (1 source) Start: 06-21-2022 End: 06-24-2022 perflutren lipid microspheres (DEFINITY) injection 1.65 mg polyethylene glycol 3350 00132 mg powder for oral solution (10 sources) Osmotic Laxative Start: 02-15-2024 End: 02-20-2024 take 17 g by mouth once daily polyethylene glycol, PEG, 3350 (Miralax) 17 g packet Take 17 g by mouth daily for 3 days. 3 packet 0 02/17/2024 02/20/2024 Active Start: 07-08-2023 End: 07-10-2023 polyethylene glycol (PEG) 33 50 (Miralax) packet 17 g Start: 06-24-2023 End: 07-06-2023 polyethylene glycol (PEG) 33 50 (Miralax) packet 17 g Start: 10-17-2021 End: 10-24-2021 polyethylene glycol (GLYCOLA X) 17 GM/SCOOP powder Take 17 g by mouth daily for 7 days 1530 g 1 10/17/2021 10/24/2021 Active predniSONE 10 mg oral tablet (7 sources) Start: 06-22-2022 End: 06-22-2023 take 4 tablets by mouth once daily, then take 3 tablets by mouth once daily, then take 2 tablets by mouth once daily, then take 1 tablet by mouth once daily predniSONE (DELTASONE) 10 mg tablet TAKE 4 TABLETS BY MOUTH DAILY FOR 3 DAYS, THEN 3 TABLETS DAILY FOR 3 DAYS, THEN 2 TABLETS DAILY FOR 3 DAYS, THEN 1 TABLET DAILY FOR 3 DAYS. 0 06/22/2022 06/22/2023 Active Start: 06-21-2022 predniSONE (DE LTASONE) tablet 40 mg Start: 11-19-2019 End: 11-23-2019 take 2 tablets by mouth once daily predniSONE (DELTASONE) 20 MG tablet Take 2 tablets by mouth daily for 4 days 8 tablet 0 11/19/2019 11/23/2019 Active Start: 11-19-2019 End: 11-19-2019 predniSONE (DELTASONE) table t 60 mg Comment on above: TAKE 4 TABLETS BY MO UTH DAILY FOR 3 DAYS, THEN 3 TABLETS DAILY FOR 3 DAYS, THEN 2 TABLETS DAILY FOR 3 DAYS, THEN 1 TABLET DAILY FOR 3 DAYS. 72 hr scopolamine 0.0139 mg/hr transdermal system (3 sources) Anticholinergic Start: 10-18-2021 End: 06-22-2022 scopolamine (TRANSDERM-SCOP) transdermal patch Place 1 patch onto the skin every 72 hours 1 patch 0 10/18/2021 06/22/2022 Discontinued (Stop Taking at Discharge) Start: 10-15-2021 scopolamine (T RANSDERM-SCOP) transdermal patch 1 patch sodium chloride flush 0.9 % injection 3 mL (3 sources) Start: 10-15-2021 sodium chlorid e flush 0.9 % injection 3 mL Start: 07-17-2020 sodium chlorid e flush 0.9 % injection 3 mL Start: 11-19-2019 sodium chlorid e flush 0.9 % injection 3 mL sodium phosphate, dibasic 35.5 mg/ml / sodium phosphate, monobasic 96.4 mg/ml enema (1 source) Start: 10-15-2021 1 enema, Recta l, DAILY PRN, Constipation, Starting on Mon10/15/21 at 1445 First line therapy for constipation traZODone hydrochloride 50 mg oral tablet (20 sources) Serotonin Reuptake Inhibitor Start: 01-27-2023 End: 02-16-2024 take 1 tablet by mouth once daily at bedtime traZODone (DESYREL) 50 mg tablet Take 50 mg by mouth daily at bedtime. 01/27/2023 Active Comment on above: Take 50 mg by mouth daily at bedtime. Completed/Discontinued Medications Medication Drug Class(es) Dates Sig (Normalized) Sig (Original) Acetaminophen (20 sources) Start: 02-11-2024 End: 02-16-2024 take 1000 mg intravenously every eight hours acetaminophen (Ofirmev) IVPB 1,000 mg Start: 02-09-2024 End: 02-11-2024 take 1 tablet by mouth every eight hours 1,000 mg, Oral, Every 8 hours, First dose on 02/09/24 at 1530, Phase II/On Unit, Maximum dose of acetaminophen is 4000 mg from all sources in 24 hours. Start: 11-04-2023 End: 11-10-2023 take 1 tablet by mouth every four hours as needed 650 mg, Oral, Every 4 hours PRN, other, Pain (1-10), Starting on 11/04/23 at 0438, Phase II/On Unit, Give in addition to any other pain medication ordered at same time for any pain indication. Start: 06-24-2023 End: 07-10-2023 take 1 tablet by mouth every six hours as needed for pain and fever acetaminophen (Tylenol) tablet 650 mg Start: 06-19-2022 1,000 mg, Oral , EVERY 8 HOURS PRN, Starting on 06/19/22 at 2146, Until Discontinued, Pain Mild (1-3), Pain Mild (1-3) or Fever greater than 100.5 F (38 C) If acetaminophen and ibuprofen are both ordered PRN for mild pain, may administer together. Start: 10-15-2021 acetaminophen (TYLENOL) tablet 650 mg End: 03-05-2024 acetaminophen (TYLENOL) 325 mg tablet Take by mouth as directed. 0 03/05/2024 Discontinued acetaminophen 325 mg / HYDROcodone bitartrate 5 mg oral tablet (5 sources) Opioid Agonist Start: 09-26-2023 End: 11-04-2023 HYDROcodone-acetaminophen ([place]) 5-325 MG tablet acetaminophen 325 mg / oxyCODONE hydrochloride 5 mg oral tablet (10 sources) Opioid Agonist Start: 02-20-2024 End: 03-05-2024 oxyCODONE-acetaminophen (PERCOCET) 5-325 mg tablet Start: 02-16-2024 End: 02-22-2024 take 1 tablet by mouth every six hours as needed for pain oxyCODONE-acetaminophen (Percocet) 5-325 MG tablet Indications: Postoperative pain Take 1 tablet by mouth every 6 hours as needed for severe pain (7-10) for up to 2 days. 8 tablet 0 02/20/2024 02/22/2024 Active Start: 11-10-2023 End: 11-17-2023 take 1 tablet by mouth every six hours as needed for pain oxyCODONE-acetaminophen (Percocet) 5-325 MG tablet Indications: Postoperative pain , S/P partial colectomy Take 1 tablet by mouth every 6 hours as needed for severe pain (7-10) for up to 3 days. 12 tablet 0 11/10/2023 11/17/2023 Active Start: 04-10-2021 End: 04-13-2021 take 1 tablet by mouth every six hours as needed for pain oxyCODONE-acetaminophen (PERCOCET) 5-325 MG per tablet Indications: Cervical radiculopathy Take 1 tablet by mouth every 6 hours as needed for Pain for up to 3 days. 12 tablet 0 04/10/2021 04/13/2021 Active Start: 04-10-2021 End: 04-10-2021 oxyCODONE-acetaminophen (PER COCET) 5-325 MG per tablet 1 tablet amLODIPine 5 mg oral tablet (20 sources) Dihydropyridine Calcium Channel Joe Start: 06-23-2022 End: 11-04-2023 take 1 tablet by mouth once daily amLODIPine (Norvasc) 5 MG tablet Take 1 tablet by mouth daily. 0 06/23/2022 11/04/2023 Discontinued Start: 06-23-2022 take 1 tablet by heath th once daily amLODIPine (NORVASC) 5 MG tablet Take 1 tablet by mouth daily 30 tablet 3 06/23/2022 Active Start: 06-22-2022 End: 06-23-2023 take 1 tablet by mouth once daily amLODIPine (Norvasc) 5 MG tablet TAKE 1 TABLET BY MOUTH DAILY 30 tablet 3 06/22/2022 06/23/2023 Discontinued (Duplicate order) Start: 06-21-2022 End: 06-22-2022 amLODIPine (NORVASC) tablet 2.5 mg aspirin 81 mg delayed release oral tablet (17 sources) Platelet Aggregation Inhibitor, Nonsteroidal Anti-inflammatory Drug Start: 10-17-2023 End: 03-05-2024 take 1 tablet by mouth twice daily aspirin, enteric coated (ADULT LOW DOSE ASPIRIN) 81 mg EC tablet Take 1 tablet by mouth two times a day for 21 days. 42 tablet 0 10/17/2023 03/05/2024 Discontinued Start: 11-19-2019 End: 11-19-2019 aspirin chewable tablet 324 mg Comment on above: Take 1 tablet by heath two times a day for 21 days. 30 ml bupivacaine hydrochloride 2.5 mg/ml injection (5 sources) Amide Local Anesthetic Start: 06-27-2024 End: 06-27-2024 bupivacaine (PF) 0.25 % (2.5 mg/mL) 4 mL injection (SENSORCAINE MPF) Start: 06-27-2024 End: 06-27-2024 4 mL, Injection - FOR ORTHO USE ONLY, ONCE, 1 dose, Starting on Samantha 06/27/24 at 1201, Until Samantha 06/27/24 at 1201 Start: 04-20-2023 End: 04-20-2023 BUPivacaine (PF) 0.25 % (2.5 mg/mL) 4 mL injection (SENSORCAINE MPF) Start: 10-06-2022 End: 10-06-2022 bupivacaine (PF) 0.25 % (2.5 mg/mL) 4 mL injection (SENSORCAINE MPF) Start: 05-19-2022 End: 05-19-2022 bupivacaine (PF) 0.5 % (5 mg /mL) 4 mL injection calcium chloride 0.0014 meq/ ml / potassium chloride 0.004 meq/ml / sodium chloride 0.103 meq/ml / sodium lactate 0.028 meq/ml injectable solution (3 sources) Start: 02-09-2024 End: 02-09-2024 lactated Ringer's (LR) infusion Start: 11-04-2023 End: 11-04-2023 lactated Ringer's infusion carboxymethylcellulose sodium 5 mg/ml ophthalmic solution (2 sources) Start: 02-09-2024 End: 02-16-2024 carboxymethylcellulose PF (Refresh Plus) 0.5 % ophthalmic solution 2 drop clonazePAM 0.5 mg oral tablet (20 sources) Benzodiazepine Start: 02-11-2024 End: 02-16-2024 clonazePAM (KlonoPIN) tablet 0.5 mg Start: 02-09-2024 End: 02-11-2024 clonazePAM (KlonoPIN) tablet 0.25 mg Start: 10-15-2021 End: 11-10-2023 take 0.5 mg by mouth twice daily as needed for anxiety 0.5 mg, Oral, 2 times daily PRN, anxiety, Starting on Mon11/06/23 at 1411 take 0.25 mg by mout h every twelve hours as needed clonazePAM (KLONOPIN) 0.5 mg tablet Take 0.25 mg by mouth two times a day as needed for anxiety. Patient reports that Klonopin 0.5mg daily prn is prescribed but that when at home she usually takes Klonopin 0.25mg bid prn [facility] 7[facility]43 AM Active Comment on above: Take 0.5 mg by mouth twice daily as needed. Take 0.25 mg by mout h two times a day as needed for anxiety. Patient reports that Klonopin 0.5mg daily prn is prescribed but that when at home she usually takes Klonopin 0.25mg bid prn [facility] 7:43 AM 1 ml dexamethasone phosphate 10 mg/ml injection (1 source) Corticosteroid Start: End: dexAMETHasone (PF) (Decadron) injection dexAMETHasone-bupivaca ine-epinephrine (TAP) syringe (1 source) Start: End: dexAMETHasone-bupivac ramírez-epinephrine (TAP) syringe dexmedeTOMIDine HCl in NaCl (Precedex) injection (1 source) Start: End: dexmedeTOMIDine HCl in NaCl (Precedex) injection diatrizoate meglumine-sodium (Gastrografin) 66-10 % solution 30 mL (2 sources) Start: End: diatrizoate meglumine-sodium (Gastrografin) 66-10 % solution 30 mL dicyclomine hydrochloride 20 mg oral tablet (8 sources) Anticholinergic Start: End: take 1 tablet by mouth every eight hours as needed dicyclomine (BENTYL) 20 mg tablet Take 20 mg by mouth three times a day as needed (GI upset). 0 10/27/2023 03/05/2024 Discontinued Comment on above: Take 20 mg by mouth three times a day as needed (GI upset). docusate sodium 100 mg oral capsule (15 sources) Start: End: take 1 capsule by mouth twice daily docusate sodium (COLACE) 100 mg capsule Take 1 capsule by mouth two times a day for 10 days. 20 capsule 0 10/17/2023 10/27/2023 Start: 07-10-2023 End: 07-10-2023 take 5 mL by mouth twice daily docusate (Colace) 50 MG /5ML liquid Take 5 mL (50 mg) by mouth 2 times daily for 10 days. 100 mL 0 07/10/2023 07/10/2023 Discontinued (Stop taking at discharge) Start: 07-03-2023 End: 07-10-2023 docusate (Colace) 50 MG/5ML liquid 50 mg Start: 10-17-2021 End: 11-01-2021 take 1 capsule by mouth twice daily docusate sodium (COLACE) 100 MG capsule Take 1 capsule by mouth 2 times daily for 15 days 30 capsule 0 10/17/2021 11/01/2021 Active End: 03-05-2024 take 1 capsule by mouth once daily as needed docusate sodium (COLACE) 100 mg capsule 1 capsule as needed Orally Once a day 0 03/05/2024 Discontinued Comment on above: Take 1 capsule by [facility] two times a day for 10 days. docusate sodium 50 mg / sennosides, [facility] 8.6 mg oral tablet (20 sources) Start: 02-15-2024 End: 02-16-2024 take 2 tablets by mouth every twenty-four hours as needed for constipation senna-docusate sodium (Senokot-S) 8.6-50 MG tablet 2 tablet Start: 07-11-2023 End: 07-10-2024 take 2 tablets by mouth once daily senna-docusate sodium (Senokot-S) 8.6-50 MG tablet Take 2 tablets by mouth daily. 60 tablet 11 07/11/2023 07/10/2024 Active Start: 06-25-2023 End: 07-10-2023 senna-docusate sodium (Senok ot-S) 8.6-50 MG tablet 2 tablet Start: 10-15-2021 End: 10-15-2021 sennosides-docusate sodium (SENOKOT-S) 8.6-50 MG tablet 2 tablet DULoxetine 30 mg delayed release oral capsule (1 source) Serotonin and Norepinephrine Reuptake Inhibitor End: 03-05-2024 DULoxetine (CYMBALTA) 30 mg capsule 1 capsule. 0 03/05/2024 Discontinued 0.4 ml enoxaparin sodium 100 mg/ml prefilled syringe (7 sources) Low Molecular Weight Heparin Start: 02-10-2024 End: 02-16-2024 inject 40 mg by subcutaneous injection every twenty-four hours 40 mg, SubCUTAneous, Every 24 hours scheduled (Daily), First dose on 02/10/24 at 0900, Phase II/On Unit, Indication of Use: Prophylaxis-DVT/PE, Indications: Prophylaxis of Venous Thromboembolism Start: 11-05-2023 End: 11-10-2023 enoxaparin (Lovenox) syringe 40 mg Start: 06-24-2023 End: 07-10-2023 inject 40 mg by subcutaneous injection every twenty-four hours 40 mg, SubCUTAneous, Every 24 hours scheduled (Daily), First dose on 06/24/23 at 0900, Indication of Use: Prophylaxis-DVT/PE, Indications: Prophylaxis of Venous Thromboembolism Start: 10-15-2021 inject 40 mg by subc utaneous injection once daily 40 mg, SubCUTAneous, DAILY, First dose on Mon10/15/21 at 1447 ertapenem (INVanz) 1,000 mg in sodium chloride 0.9 % 50 mL IVPB Mini-Bag Plus (2 sources) Start: 11-06-2023 End: 11-09-2023 ertapenem (INVanz) 1,000 mg in sodium chloride 0.9 % 50 mL IVPB Mini-Bag Plus erythromycin 250 mg delayed release oral tablet (6 sources) Macrolide, Macrolide Antimicrobial Start: 01-05-2024 End: 03-05-2024 take 4 tablets by mouth once daily at bedtime erythromycin DR (WERO-TAB) 250 mg EC tablet Take 4 tablets (1000 mg) by mouth at 3:00pm, 4:00pm, and bedtime on the day prior to surgery. 0 01/05/2024 03/05/2024 Discontinued 10 ml esmolol hydrochloride 10 mg/ml injection (1 source) beta-Adrenergic Joe Start: 11-04-2023 End: 11-04-2023 esmolol (Brevibloc) injection 2 ml famotidine 10 mg/ml injection (2 sources) Histamine-2 Receptor Antagonist Start: 11-03-2023 End: 11-03-2023 famotidine (Pepcid) injection 40 mg fluconazole 150 mg oral tablet (10 sources) Azole Antifungal Start: 03-11-2024 End: 06-12-2024 fluconazole (DIFLUCAN) 150 mg tablet 1 tablet po now; repeat in 2 days 2 tablet 03/11/2024 06/12/2024 Discontinued (Other) Start: 06-25-2023 End: 06-28-2023 fluconazole (Diflucan) table t 150 mg Start: 03-28-2018 fluconazole (D IFLUCAN) 150 mg tablet Indications: Vaginal discharge 1 tablet po now; repeat in 2 days 2 tablet 0 03/28/2018 Active Comment on above: 1 tablet po now; rep eat in 2 days 60 actuat fluticasone propionate 0.25 mg/actuat / salmeterol 0.05 mg/actuat dry powder inhaler (6 sources) Corticosteroid, beta2-Adrenergic Agonist Start: 7 take 1 puff(s) by inhalation once daily ADVAIR DISKUS 250-50 mcg/dose dsdv INHALE 1 PUFF ONCE A DAY INTO THE LUNGS 1 04/25/2017 Active Comment on above: INHALE 1 PUFF ONCE A DAY INTO THE LUNGS 60 actuat formoterol fumarate 0.005 mg/actuat / mometasone furoate 0.1 mg/actuat metered dose inhaler (4 sources) Corticosteroid, beta2-Adrenergic Agonist Start: 4 End: 4 take 2 puff(s) by mouth twice daily 2 puff, Inhalation, 2 times daily, First dose on Mon02/09/24 at 2000, Phase II/On Unit, Rinse mouth with water after use to reduce aftertaste and incidence of candidiasis. Do not swallow. Start: 06-24-2023 End: 07-03-2023 take 2 puff(s) by mouth twice daily 2 puff, Inhalation, 2 times daily, First dose on 06/24/23 at 0800, Rinse mouth with water after use to reduce aftertaste and incidence of candidiasis. Do not swallow. gabapentin 300 mg oral capsule (20 sources) Anti-epileptic Agent Start: 02-09-2024 End: 02-16-2024 take 300 mg by mouth twice daily 300 mg, Oral, 2 times daily, First dose on Mon02/09/24 at 2145 Start: 11-04-2023 End: 11-10-2023 take 300 mg by mouth twice daily 300 mg, Oral, 2 times daily, First dose on Mon11/04/23 at 2100 Start: 10-16-2021 End: 07-10-2023 take 300 mg by mouth twice daily as needed 300 mg, Oral, 2 times daily PRN, neuropathy, Starting on Mon06/23/23 at 2320 Start: 08-09-2017 take 1 capsule by [facility] once daily at bedtime gabapentin (NEURONTIN) 300 mg capsule Take 300 mg by mouth daily at bedtime. 08/09/2017 Active Comment on above: Take 300 mg by mouth daily at bedtime. gadobutrol (GADAVIST) injection 6 mL (1 source) Start: End: gadobutrol (GADAVIST) injection 6 mL 500 ml glucose 50 mg/ml / potassium chloride 0.02 meq/ml / sodium chloride 4.5 mg/ml injection (2 sources) Start: End: take 50 mL intravenously every hour 50 mL/hr, IntraVENous, Continuous, Starting on Mon02/09/24 at 1530, Phase II/On Unit 250 ml glucose 50 mg/ml / sodium chloride 4.5 mg/ml injection (2 sources) Start: End: take 75 mL intravenously every hour 75 mL/hr, IntraVENous, Continuous, Starting on Mon11/04/23 at 0445, Phase II/On Unit 12 hr guaiFENesin 600 mg extended release oral tablet (2 sources) Start: take 600 mg by mouth twice daily 600 mg, Oral, 2 TIMES DAILY, First dose on 06/19/22 at 2215, Until Discontinued Do not crush or break. 1 ml hydrALAZINE hydrochloride 20 mg/ml injection (4 sources) Arteriolar Vasodilator Start: End: take 10 mg intravenously every four hours as needed for hypertension hydrALAZINE (Apresoline) injection 10 mg Start: 06-27-2023 End: 07-10-2023 take 10 mg intravenously every four hours as needed for hypertension hydrALAZINE (Apresoline) injection 10 mg hydrocortisone 25 mg/ml topical cream (2 sources) Corticosteroid Start: 06-25-2023 End: 07-10-2023 hydrocortisone 2.5 % cream 1 ml HYDROmorphone hydrochloride 1 mg/ml cartridge (9 sources) Opioid Agonist Start: 02-09-2024 End: 02-09-2024 HYDROmorphone (Dilaudid) injection 0.5 mg Start: 11-05-2023 End: 11-05-2023 HYDROmorphone (Dilaudid) injection 0.5 mg Start: 11-03-2023 End: 11-03-2023 HYDROmorphone (Dilaudid) injection 0.5 mg Start: 06-25-2023 End: 07-10-2023 take 0.5 mg intravenously every four hours as needed for pain HYDROmorphone (Dilaudid) injection 0.5 mg Start: 06-20-2022 End: 06-20-2022 HYDROmorphone (DILAUDID) injection 0.25 mg HYDROmorphone (Dilaudid) injection 0.5 mg (4 sources) Start: 11-10-2023 End: 11-10-2023 take 0.5 mg intravenously every four hours as needed for pain HYDROmorphone (Dilaudid) injection 0.5 mg Start: 11-05-2023 End: 11-10-2023 HYDROmorphone (Dilaudid) inj ection 0.5 mg ibuprofen 600 mg oral tablet (14 sources) Nonsteroidal Anti-inflammatory Drug End: 07-10-2023 take 1 tablet by mouth every six hours as needed ibuprofen (MOTRIN) 600 mg tablet Take 600 mg by mouth every 6 hours as needed. 0 Active take 1 tablet by heath th every eight hours as needed for pain ibuprofen (ADVIL;MOTRIN) 600 MG tablet Take 600 mg by mouth every 8 hours as needed for Pain 0 Active End: 10-17-2021 ibuprofen (ADVIL;MOTRIN) 400 MG tablet Take 500 mg by mouth every 6 hours as needed for Pain 0 10/17/2021 Discontinued (Stop Taking at Discharge) Comment on above: Take 600 mg by mouth every 6 hours as needed. iopamidol (ISOVUE-370) 76 % injection 75 mL (3 sources) Start: 06-20-2022 End: 06-21-2022 iopamidol (ISOVUE-370) 76 % injection 75 mL Start: 10-15-2021 End: 10-15-2021 iopamidol (ISOVUE-370) 76 % injection 75 mL Start: 07-17-2020 End: 07-17-2020 iopamidol (ISOVUE-370) 76 % injection 75 mL iopamidol (Isovue-370) 76 % injection 75 mL (10 sources) Start: 11-03-2023 End: 11-03-2023 iopamidol (Isovue-370) 76 % injection 75 mL Start: 07-24-2023 End: 07-24-2023 iopamidol (Isovue-370) 76 % injection 75 mL Start: 07-04-2023 End: 07-05-2023 iopamidol (Isovue-370) 76 % injection 75 mL Start: 06-27-2023 End: 06-27-2023 iopamidol (Isovue-370) 76 % injection 75 mL Start: 06-23-2023 End: 06-23-2023 iopamidol (Isovue-370) 76 % injection 75 mL isopropyl alcohol 0.7 ml/ml medicated pad (2 sources) Start: 02-09-2024 End: 02-09-2024 Nozin Nasal [employer] Popswab 2 Swab ketamine 15 mg in sodium chloride 0.9 % 50 mL ivpb (2 sources) Start: 11-03-2023 End: 11-03-2023 ketamine 15 mg in sodium chloride 0.9 % 50 mL ivpb 1 ml ketorolac tromethamine 30 mg/ml cartridge (11 sources) Nonsteroidal Anti-inflammatory Drug, Cyclooxygenase Inhibitor Start: 02-11-2024 End: 02-12-2024 take 15 mg intravenously every six hours ketorolac (Toradol) injection 15 mg Start: 11-07-2023 End: 11-10-2023 take 15 mg intravenously every six hours as needed for pain and pain ketorolac (Toradol) injection 15 mg Start: 11-04-2023 End: 11-04-2023 ketorolac (Toradol) injectio n Start: 07-03-2023 End: 07-05-2023 take 15 mg intravenously every six hours as needed for pain and pain ketorolac (Toradol) injection 15 mg Start: 07-03-2023 End: 07-03-2023 ketorolac (Toradol) injectio n 30 mg Start: 06-19-2022 End: 06-24-2022 take 1 dose intravenously once daily Ketorolac is contraindicated in patients with advanced renal impairment and in patients at risk of renal failure due to volume depletion. For 65 years of age and older OR weight less than 50 kg, use 15 mg IV every 6 hours; MAX dose: 60 mg/day. Dose greater than 30 mg must be administered via intramuscular route. Do not administer for more than 5 days. 15 mg, IntraVENous, EVERY 6 HOURS, 20 doses, First dose on Mon06/19/22 at 2215, Last dose on Mon06/24/22 at 1615 Do not administer for more than 5 days. Start: 06-19-2022 End: 06-19-2022 ketorolac (TORADOL) injectio n 30 mg labetalol hydrochloride 5 mg/ml injectable solution (1 source) beta-Adrenergic Joe Start: 10-15-2021 End: 10-15-2021 labetalol (NORMODYNE;TRANDATE) injection 5 mg Start: 10-15-2021 End: 10-15-2021 labetalol (NORMODYNE;TRANDAT E) injection 5 mg 10 ml lidocaine hydrochloride 20 mg/ml injection (2 sources) Antiarrhythmic, Amide Local Anesthetic Start: 11-04-2023 End: 11-04-2023 lidocaine PF (Xylocaine) 2 % injection Start: 04-10-2021 End: 04-20-2021 lidocaine (LIDODERM) 5 % Jez ce 1 patch onto the skin daily for 10 days 12 hours on, 12 hours off. May substitute 4mg patches if 5mg unavailable 10 patch 1 04/10/2021 04/20/2021 Active Lisinopril (2 sources) Angiotensin Converting Enzyme Inhibitor Start: 02-11-2024 End: 02-16-2024 lisinopril tablet 20 mg loratadine 10 mg oral tablet (6 sources) End: 06-12-2024 take 1 tablet by mouth once daily loratadine (CLARITIN) 10 mg tablet Take 1 tablet by mouth once daily. 06/12/2024 Discontinued (Other) 1 ml LORazepam 2 mg/ml injection (5 sources) Benzodiazepine Start: 02-09-2024 End: 02-09-2024 LORazepam (Ativan) injection 0.5 mg Start: 11-04-2023 End: 11-06-2023 take 1 mL intravenously every twelve hours as needed 1 mg, IntraVENous, Every 12 hours PRN, anxiety, Starting on 11/04/23 at 1454, Ativan IV while NPO - once able to tolerate PO - please notify MD and will switch back to Klonopin 0.5mg For IV doses dilute dose with 1ml NS. Start: 10-17-2021 End: 10-17-2021 LORazepam (ATIVAN) tablet 0. 5 mg melatonin 3 mg oral tablet (2 sources) Start: 06-23-2023 End: 07-10-2023 take 3 mg by mouth once daily as needed for sleep 3 mg, Oral, Nightly PRN, sleep, Starting on Mon06/23/23 at 2320 methocarbamol 500 mg oral tablet (4 sources) Muscle Relaxant Start: 02-12-2024 End: 02-16-2024 methocarbamol (Robaxin) tablet 1,000 mg Start: 02-10-2024 End: 02-12-2024 take 1000 mg intravenously every eight hours methocarbamol (Robaxin) injection 1,000 mg methylPREDNISolone 40 mg injection (2 sources) Corticosteroid Start: 06-20-2022 End: 06-21-2022 40 mg, IntraVENous, EVERY 12 HOURS, First dose on 06/20/22 at 0800 Start: 06-19-2022 End: 06-19-2022 methylPREDNISolone sodium (S PRETTY-MEDROL) injection 125 mg modafinil 100 mg oral tablet (3 sources) Sympathomimetic-like Agent Start: 01-17-2023 mod afinil (PROVIGIL) 100 mg tablet 1 ml morphine sulfate 4 mg/ml cartridge (8 sources) Opioid Agonist Start: 11-03-2023 End: 11-03-2023 morphine injection 6 mg Start: 06-23-2023 End: 06-23-2023 morphine injection 6 mg Start: 06-23-2023 End: 06-23-2023 morphine injection 4 mg Start: 10-15-2021 End: 10-15-2021 morphine sulfate (PF) inject ion 4 mg Start: 07-17-2020 End: 07-17-2020 morphine injection 4 mg 1 ml naloxone hydrochloride 0.4 mg/ml injection (6 sources) Opioid Antagonist Start: 02-09-2024 End: 02-16-2024 naloxone (Narcan) injection 0.4 mg Start: 11-04-2023 End: 11-10-2023 naloxone (Narcan) injection 0.4 mg Start: 06-23-2023 End: 07-10-2023 naloxone (Narcan) injection 0.4 mg naproxen 500 mg oral tablet (2 sources) Nonsteroidal Anti-inflammatory Drug Start: 07-17-2020 End: 04-10-2021 take 1 tablet by mouth twice daily at mealtime naproxen (NAPROSYN) 500 MG tablet Take 1 tablet by mouth 2 times daily (with meals) 60 tablet 0 07/17/2020 04/10/2021 Discontinued (LIST CLEANUP) neomycin sulfate 500 mg oral tablet (6 sources) Aminoglycoside Antibacterial Start: 01-05-2024 End: 03-05-2024 neomycin 500 mg tablet Start: 01-05-2024 End: 02-16-2024 take 2 tablets by mouth once daily neomycin (Mycifradin) 500 MG tablet Take two tablets (1000 mg) by mouth at 3:00pm, 4:00pm and at bed time on the day prior to surgery 6 tablet 0 01/05/2024 02/16/2024 Discontinued (Stop taking at discharge) ondansetron 4 mg disintegrating oral tablet (15 sources) Serotonin-3 Receptor Antagonist Start: 02-16-2024 End: 06-12-2024 ondansetron orally disintegrating (ZOFRAN ODT) 4 mg disintegrating tablet 02/16/2024 06/12/2024 Discontinued (Other) Start: 11-04-2023 End: 11-04-2023 ondansetron (Zofran) injecti on Start: 06-23-2023 End: 06-23-2023 ondansetron (Zofran) injecti on 4 mg Start: 10-15-2021 End: 10-15-2021 ondansetron (ZOFRAN) injecti on 4 mg Start: 07-17-2020 End: 07-17-2020 ondansetron (ZOFRAN) injecti on 4 mg ondansetron ODT (Zofran-ODT) disintegrating tablet 4 mg (6 sources) Start: 02-09-2024 End: 02-16-2024 take 1 tablet by mouth every eight hours as needed for nausea and vomiting ondansetron ODT (Zofran-ODT) disintegrating tablet 4 mg Start: 11-04-2023 End: 11-10-2023 take 1 tablet by mouth every eight hours as needed for nausea and vomiting ondansetron ODT (Zofran-ODT) disintegrating tablet 4 mg Start: 06-23-2023 End: 07-10-2023 take 1 tablet by mouth every eight hours as needed for nausea and vomiting ondansetron ODT (Zofran-ODT) disintegrating tablet 4 mg oxyCODONE (20 sources) Opioid Agonist Start: 02-13-2024 End: 02-16-2024 take 1 tablet by mouth every four hours as needed for pain oxyCODONE (Roxicodone) immediate release tablet 5 mg Start: 2023 End: 03-05-2024 oxyCODONE IR (ROXICODONE) 5 mg immediate release tablet Start: 11-06-2023 End: 11-10-2023 take 1 tablet by mouth every four hours as needed for pain oxyCODONE (Roxicodone) immediate release tablet 5 mg Start: 10-17-2023 End: 11-06-2023 take 1 tablet by mouth every six hours as needed oxyCODONE IR (ROXICODONE) 5 mg immediate release tablet Indications: Osteoarthritis of right hip, unspecified osteoarthritis type , S/P total right hip arthroplasty Take 1-2 tablets by mouth every 6 hours as needed for pain for up to 7 days. 40 tablet 0 10/23/2023 10/30/2023 Discontinued Start: 07-10-2023 End: 07-15-2023 take 1 tablet by mouth every four hours as needed for pain oxyCODONE (Roxicodone) 5 MG immediate release tablet Indications: Diverticulitis Take 1 tablet (5 mg) by mouth every 4 hours as needed for moderate pain (4-6) for up to 5 days. 15 tablet 0 07/10/2023 07/15/2023 Active Start: 06-23-2023 End: 07-10-2023 take 1 tablet by mouth every four hours as needed for pain oxyCODONE (Roxicodone) immediate release tablet 5 mg Comment on above: [The details of the medication are not available because there are pending changes by a home health clinician.] Take 1-2 tablets by mouth every 6 hours as needed for pain for up to 7 days. Take 1 tablet by heath th every 6 hours as needed for pain for up to 7 days. for pain. pantoprazole (ProtoNix) 40 mg in sodium chloride (PF) 0.9 % 10 mL injection (2 sources) Start: 11-08-2023 End: 11-10-2023 pantoprazole (ProtoNix) 40 mg in sodium chloride (PF) 0.9 % 10 mL injection phenol 14 mg/ml mucosal spray (4 sources) Start: 02-09-2024 End: 02-16-2024 phenol (Chloraseptic) 1.4 % mouth/throat spray 1 spray Start: 11-04-2023 End: 11-10-2023 phenol (Chloraseptic) 1.4 % mouth/throat spray 1 spray Phenylephrine HCl (Pressors) 1 MG/10ML injection (1 source) Start: 11-04-2023 End: 11-04-2023 Phenylephrine HCl (Pressors) 1 MG/10ML injection piperacillin-tazobacta m (Zosyn) 3,375 mg in sodium chloride 0.9 % 50 mL IVPB Mini-Bag Plus (6 sources) Start: 11-04-2023 End: 11-06-2023 take 3375 mg intravenously every eight hours 3,375 mg, IntraVENous, at 12.5 mL/hr, Administer over 4 Hours, Every 8 hours, First dose on 11/04/23 at 0800, Phase II/On Unit, Mini-Bag Plus bag, Suspected Indication (Select all that apply): Intra-Abdominal Infection Start: 07-05-2023 End: 07-10-2023 take 3375 mg intravenously every eight hours piperacillin-tazobactam (Zosyn) 3,375 mg in sodium chloride 0.9 % 50 mL IVPB Mini-Bag Plus Start: 06-24-2023 End: 07-03-2023 take 3375 mg intravenously every eight hours piperacillin-tazobactam (Zosyn) 3,375 mg in sodium chloride 0.9 % 50 mL IVPB Mini-Bag Plus piperacillin-tazobactam (Zos yn) 4,500 mg in sodium chloride 0.9 % 100 mL IVPB Mini-Bag Plus (4 sources) Start: 11-03-2023 End: 11-04-2023 piperacillin-tazobactam (Zos yn) 4,500 mg in sodium chloride 0.9 % 100 mL IVPB Mini-Bag Plus Start: 06-23-2023 End: 06-23-2023 piperacillin-tazobactam (Zos yn) 4,500 mg in sodium chloride 0.9 % 100 mL IVPB Mini-Bag Plus 100 ml potassium chloride 0. 1 meq/ml injection (16 sources) Start: 11-08-2023 End: 11-09-2023 potassium chloride IVPB 10 m Eq Start: 07-08-2023 End: 07-08-2023 potassium chloride CR (Klor- Con M20) ER tablet 40 mEq Start: 07-05-2023 End: 07-05-2023 potassium chloride CR (Klor- Con M20) ER tablet 40 mEq Start: 06-29-2023 End: 06-29-2023 potassium chloride CR (Klor- Con M20) ER tablet 40 mEq Start: 06-26-2023 End: 06-26-2023 potassium chloride CR (Klor- Con M20) ER tablet 40 mEq prochlorperazine 5 mg/ml injectable solution (2 sources) Phenothiazine Start: 02-15-2024 End: 02-16-2024 take 5 mg intravenously every six hours as needed for nausea and vomiting prochlorperazine (Compazine) injection 5 mg 20 ml propofol 10 mg/ml injection (1 source) General Anesthetic Start: 11-04-2023 End: 11-04-2023 Propofol (Diprivan) injection rocuronium bromide 10 mg/ml injectable solution (1 source) Nondepolarizing Neuromuscular Joe Start: 11-04-2023 End: 11-04-2023 rocuronium (ZeMuron) injection 5 ml sodium chloride 9 mg/ml injection (20 sources) Start: 02-09-2024 End: 02-16-2024 10 mL, IntraVENous, Every 12 hours scheduled (2 times per day), First dose on Mon02/09/24 at 2100, Phase II/On Unit Start: 02-09-2024 End: 02-16-2024 take 100 mL intravenously every hour as needed, then take 20 mL intravenously every hour as needed 5-250 mL/hr, IntraVENous, PRN, if patient receiving piggyback infusions and maintenance fluids are not ordered OR KVO fluids to protect IV site / prevent frequent line interruptions/ long duration, Starting on Mon02/09/24 at 1526, Phase II/On Unit, For piggyback infusion, administer at same rate as piggyback for a total of 25 mL. Enter 25 mL into dose field and piggyback rate into rate field of order. If piggyback is infusing at a rate less than 100 mL/hr, enter 25 mL into dose field and 100 mL/hr into rate field of order. For KVO fluids, enter rate of 20 mL/hr or less into rate field of order. Start: 02-09-2024 End: 02-16-2024 take 10 mL intravenously once as needed 10 mL, IntraVENous, PRN, line care, Starting on Mon02/09/24 at 1526, Phase II/On Unit, After every IV line use Start: 11-04-2023 End: 11-10-2023 10 mL, IntraVENous, Every 12 hours scheduled (2 times per day), First dose on Mon11/04/23 at 0900, Phase II/On Unit Start: 11-04-2023 End: 11-10-2023 take 100 mL intravenously every hour as needed, then take 20 mL intravenously every hour as needed 5-250 mL/hr, IntraVENous, PRN, if patient receiving piggyback infusions and maintenance fluids are not ordered OR KVO fluids to protect IV site / prevent frequent line interruptions/ long duration, Starting on 11/04/23 at 0438, Phase II/On Unit, For piggyback infusion, administer at same rate as piggyback for a total of 25 mL. Enter 25 mL into dose field and piggyback rate into rate field of order. If piggyback is infusing at a rate less than 100 mL/hr, enter 25 mL into dose field and 100 mL/hr into rate field of order. For KVO fluids, enter rate of 20 mL/hr or less into rate field of order. Start: 11-04-2023 End: 11-10-2023 take 10 mL intravenously once as needed 10 mL, IntraVENous, PRN, line care, Starting on 11/04/23 at 0438, Phase II/On Unit, After every IV line use Start: 11-03-2023 End: 11-03-2023 sodium chloride 0.9 % bolus 1,000 mL Start: 06-23-2023 End: 06-30-2023 take 50 mL intravenously every hour 50 mL/hr, IntraVENous, Continuous, Starting on Mon06/23/23 at 2325 Start: 06-21-2022 End: 06-24-2022 sodium chloride flush 0.9 % injection 5-40 mL Start: 10-15-2021 take 1 dose intraven ously twice daily 5-40 mL, IntraVENous, EVERY 12 HOURS SCHEDULED (2 times per day), First dose on Mon10/15/21 at 2100 For Line Patency: Peripheral IV = 5 mL; Midline or Central Line = 10 mL/lumen. If following IV push medication, administer flush at same rate as the IV push. Flush volume is determined by type of infusion therapy being given. For non-viscous solutions use: Peripheral IV = 5 mL Midline or Central Line = 10 mL/lumen For viscous solutions (i.e. blood components, parenteral nutrition, contrast media, or after obtaining blood sample) use: Peripheral IV = 10 mL Midline or Central Line = 20 mL/lumen Start: 10-15-2021 IntraVENous, a t 100 mL/hr, CONTINUOUS, Starting on Mon10/15/21 at 1447 Start: 10-15-2021 take 25 mL intraveno usly every hour as needed 25 mL, IntraVENous, at 100 mL/hr, PRN, If patient receiving piggyback infusions without ordered maintenance IV fluids or with frequent/long duration piggyback infusions, Starting on Mon10/15/21 at 1444 Administer at the same rate as the piggyback being infused. Start: 10-15-2021 take 5-40 mL intrave nously once as needed 5-40 mL, IntraVENous, PRN, Line Care, After every IV line use, Starting on Mon10/15/21 at 1444 For Line Patency: Peripheral IV = 5 mL; Midline or Central Line = 10 mL/lumen. If following IV push medication, administer flush at same rate as the IV push. Flush volume is determined by type of infusion therapy being given. For non-viscous solutions use: Peripheral IV = 5 mL Midline or Central Line = 10 mL/lumen For viscous solutions (i.e. blood components, parenteral nutrition, contrast media, or after obtaining blood sample) use: Peripheral IV = 10 mL Midline or Central Line = 20 mL/lumen Start: 10-15-2021 End: 10-15-2021 0.9 % sodium chloride bolus Start: 07-17-2020 End: 07-17-2020 0.9 % sodium chloride bolus Start: 11-19-2019 End: 11-19-2019 0.9 % sodium chloride bolus Succinylcholine Chloride (Anectine) injection (1 source) Start: 11-04-2023 End: 11-04-2023 Succinylcholine Chloride (Anectine) injection 2 ml sugammadex 100 mg/ml injection (1 source) Start: 11-04-2023 End: 11-04-2023 sugammadex (Bridion) injection 10 actuat tiotropium 0.0025 mg/actuat inhalation spray (10 sources) Anticholinergic Start: 02-09-2024 End: 02-16-2024 take 2 puff(s) by inhalation once daily 2 puff, Inhalation, Daily, First dose on Mon02/09/24 at 2000, Phase II/On Unit Start: 06-24-2023 End: 07-03-2023 take 1 capsule by inhalation once daily 18 mcg (1 capsule), Inhalation, Daily, First dose on 06/24/23 at 0800 End: 06-12-2024 tiotropium (SPIRIVA WITH HANDIHALER) 18 mcg inhalation capsule 1 capsule. 06/12/2024 Discontinued (Other) traMADol hydrochloride 50 mg oral tablet (12 sources) Opioid Agonist Start: 12-15-2023 End: 03-05-2024 traMADol (ULTRAM) 50 mg tablet Start: 11-10-2017 End: 06-22-2022 traMADol (ULTRAM) 50 mg tabl et TRELEGY ELLIPTA 200-62.5-25 mcg inhalation powder (16 sources) Start: 06-28-2023 End: 03-05-2024 take 1 puff(s) by inhalation once daily in the morning TRELEGY ELLIPTA 200-62.5-25 mcg inhalation powder Inhale 1 Puff as instructed once daily. takes in morning 0 06/28/2023 03/05/2024 Discontinued Start: 06-28-2023 take 1 puff(s) by in halation once daily in the morning TRELEGY ELLIPTA 200-62.5-25 mcg inhalation powder Inhale 1 Puff as instructed once daily. takes in morning 0 06/28/2023 Active Comment on above: Inhale 1 Puff as ins tructed once daily. takes in morning 1 ml triamcinolone acetonide 40 mg/ml injection (5 sources) Corticosteroid Start: 06-27-2024 End: 06-27-2024 triamcinolone acetonide 80 mg injection (KeNALog 40) Start: 06-27-2024 End: 06-27-2024 80 mg, Injection - FOR ORTHO USE ONLY, ONCE, 1 dose, Starting on Samantha 06/27/24 at 1201, Until Samantha 06/27/24 at 1201 Start: 04-20-2023 End: 04-20-2023 triamcinolone acetonide 80 m g injection (KeNALog 40) Start: 10-06-2022 End: 10-06-2022 triamcinolone acetonide 80 m g injection (KeNALog 40) Start: 05-19-2022 End: 05-19-2022 triamcinolone acetonide 80 m g injection (KeNALog 40) valACYclovir 500 mg oral tablet (1 source) Herpesvirus Nucleoside Analog DNA Polymerase Inhibitor, Herpes Simplex Virus Nucleoside Analog DNA Polymerase Inhibitor, Herpes Zoster Virus Nucleoside Analog DNA Polymerase Inhibitor End: 03-05-2024 take 2 tablets by mouth every twelve hours valACYclovir (VALTREX) 500 mg tablet 2 tablets Orally every 12 hrs 0 03/05/2024 Discontinued vancomycin (Vancocin) 750 mg in sodium chloride 0.9 % 250 mL IVPB (2 sources) Start: 11-05-2023 End: 11-06-2023 take 750 mg intravenously every twelve hours vancomycin (Vancocin) 750 mg in sodium chloride 0.9 % 250 mL IVPB 1 ml vasopressin (penitentiary) 20 unt/ml injection (1 source) Start: 11-04-2023 End: 11-04-2023 vasopressin (Vasostrict) injection Problems Active Problems Problem Classification Problem Date Documented Da te Episodic/Chronic Acute bronchitis (2 sources) Acute bronchitis, unspecified; Translations: [Acute bronchitis, unspecified] Onset: 2 Episodic Adjustment disorders (8 sources) Grief finding; Translations: [Adjustment disorder with depressed mood] Onset: 4 03-05-2024 Chronic Anxiety disorders (10 sources) Anxiety disorder, unspecified; Translations: [Mixed anxiety and depressive disorder] Onset: 2 Chronic Chronic obstructive pulmonary disease and bronchiectasis (20 sources) Acute exacerbation of chronic obstructive airways disease; Translations: [Chronic obstructive pulmonary disease with (acute) exacerbation] Onset: 2 Chronic Diseases of white blood cells (2 sources) Elevated white blood cell count, unspecified; Translations: [Elevated white blood cell count, unspecified] Onset: 2 Chronic Diverticulosis and diverticulitis (20 sources) Diverticulitis of sigmoid colon; Translations: [Diverticulitis of large intestine without perforation or abscess without bleeding] Onset: 3 07-10-2023 Chronic Essential hypertension (20 sources) Essential (primary) hypertension; Translations: [Essential hypertension] Onset: 2 Chronic Genitourinary symptoms and ill-defined conditions (2 sources) Dysuria; Translations: [Dysuria] 03-05-2024 Episodic Headache; including migraine (2 sources) Headache; including migraine; Translations: [Headache, unspecified] Onset: 2 Immunity disorders (8 sources) Secondary immune deficiency disorder; Translations: [Immunodeficiency due to conditions classified elsewhere] Onset: 4 03-05-2024 Chronic Malaise and fatigue (8 sources) Fatigue; Translations: [Chronic fatigue, unspecified] Onset: 4 03-05-2024 Chronic Nausea and vomiting (1 source) Nausea and vomiting; Translations: [Nausea with vomiting, unspecified] Episodic Nutritional deficiencies (20 sources) Malnutrition (calorie); Translations: [Moderate protein-calorie malnutrition] Onset: 3 07-04-2023 Chronic Osteoarthritis (20 sources) Osteoarthritis of joint of left shoulder region; Translations: [Primary osteoarthritis, left shoulder] Onset: 2 Chronic Other acquired deformities (20 sources) Spondylolisthesis L5/S1 level; Translations: [Spondylolisthesis, lumbosacral region] Onset: 3 06-29-2017 Episodic Other aftercare (2 sources) longterm (current) use of inhaled steroids; Translations: [longterm (current) use of inhaled steroids] Onset: 2 Episodic Other connective tissue disease (20 sources) History of total hip arthroplasty; Translations: [Presence of right artificial hip joint] Onset: 4 10-17-2023 Chronic Other connective tissue disease (1 source) Presence of right artificial hip joint; Translations: [S/P total right hip arthroplasty] Onset: 4 Chronic Other connective tissue disease (3 sources) Tear of left rotator cuff; Translations: [Unspecified rotator cuff tear or rupture of left shoulder, not specified as traumatic] Episodic Other female genital disorders (1 source) Vaginal discharge; Translations: [Other specified noninflammatory disorders of vagina] 03-05-2024 Episodic Other gastrointestinal disorders (20 sources) Colostomy present; Translations: [Colostomy status] Onset: 4 01-05-2024 Chronic Other gastrointestinal disorders (2 sources) Colostomy status; Translations: [Colostomy status (HCC)] Onset: 4 Chronic Other gastrointestinal disorders (1 source) Constipation; Translations: [Constipation, unspecified] Episodic Other nervous system disorders (20 sources) Chronic pain; Translations: [Other chronic pain] Onset: 3 06-29-2017 Chronic Other nervous system disorders (2 sources) Polyneuropathy, unspecified; Translations: [Polyneuropathy, unspecified] Onset: 2 Chronic Other nervous system disorders (6 sources) Postoperative pain ; Translations: [Other acute postprocedural pain] 11-10-2023 Episodic Other nervous system disorders (2 sources) Other acute postprocedural pain; Translations: [Other acute postprocedural pain] Onset: 4 Episodic Other non-traumatic joint disorders (1 source) Pain in right hip joint; Translations: [Pain in right hip] 01-19-2023 Episodic Residual codes; unclassified (20 sources) Obstructive sleep apnea syndrome; Translations: [Obstructive sleep apnea (adult) (pediatric)] Onset: 4 09-27-2023 Chronic Residual codes; unclassified (1 source) Obstructive sleep apnea (adult) (pediatric); Translations: [ANJANA (obstructive sleep apnea)] Onset: 4 Chronic Residual codes; unclassified (3 sources) History of partial resection of colon; Translations: [Acquired absence of other specified parts of digestive tract] 11-10-2023 Episodic Residual codes; unclassified (1 source) History of colectomy; Translations: [Acquired absence of other specified parts of digestive tract] 11-17-2023 Episodic Residual codes; unclassified (3 sources) Localized edema; Translations: [Localized edema] Onset: 4 02-16-2024 Episodic Residual codes; unclassified (6 sources) History of clinical finding in subject; Translations: [Personal history of other specified conditions] Onset: 4 02-02-2024 Episodic Residual codes; unclassified (5 sources) Postoperative state; Translations: [Other specified postprocedural states] Onset: 4 02-23-2024 Episodic Residual codes; unclassified (1 source) Localized edema; Translations: [Localized edema] Onset: 4 Episodic Residual codes; unclassified (2 sources) Acquired absence of other specified parts of digestive tract; Translations: [Acquired absence of other specified parts of digestive tract] Onset: 4 Episodic Screening and history of mental health and substance abuse codes (2 sources) Personal history of nicotine dependence; Translations: [Personal history of nicotine dependence] Onset: 2 Episodic Spondylosis; intervertebral disc disorders; other back problems (3 sources) Sacral arthritis; Translations: [Spondylosis without myelopathy or radiculopathy, sacral and sacrococcygeal region] Onset: 4 06-12-2024 Chronic Spondylosis; intervertebral disc disorders; other back problems (20 sources) Cervical radiculopathy; Translations: [Radiculopathy, cervical region] Onset: 3 Episodic Substance-related disorders (18 sources) Nicotine dependence, cigarettes, uncomplicated; Translations: [Benzodiazepine dependence] Onset: 2 Chronic Unclassified (2 sources) Spondylolisthesis of lumbar region Onset: 9 Unclassified (1 source) Contact with and (suspected) exposure to COVID-19; Translations: [Contact with and (suspected) exposure to COVID-19] Onset: 2 Unclassified (2 sources) Post-op; Translations: [Post-op] Onset: 4 Unclassified (1 source) Established Patient Onset: 4 Past or Other Problems Problem Classification Problem Date Documented Da te Episodic/Chronic Abdominal pain (20 sources) Generalized abdominal pain; Translations: [Generalized abdominal pain] Onset: 09-27-2023 Episodic Conditions associated with dizziness or vertigo (20 sources) Dizziness; Translations: [Dizziness and giddiness] Onset: 10-15-2021 Episodic Fluid and electrolyte disorders (4 sources) Hypo-osmolality and hyponatremia; Translations: [Dehydration] Onset: 10-15-2021 Episodic Intestinal obstruction without hernia (4 sources) Intestinal obstruction; Translations: [Unspecified intestinal obstruction, unspecified as to partial versus complete obstruction] Onset: 11-03-2023 11-10-2023 Episodic Nonspecific chest pain (20 sources) Chest pain; Translations: [Chest pain, unspecified] Onset: 03-01-2019 03-01-2019 Episodic Other acquired deformities (20 sources) Lumbar spondylolisthesis; Translations: [Spondylolisthesis , lumbar region] Onset: 07-06-2017 07-06-2017 Episodic Other acquired deformities (1 source) Spondylolisthesis, lumbar region; Translations: [Spondylolisthesis of lumbar region] Onset: 07-06-2017 Episodic Other aftercare (2 sources) 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 non-steroidal anti-inflammatorie s (NSAID); Translations: [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 non-steroidal non-inflam (NSAID)] Onset: 10-15-2021 Episodic Other aftercare (16 sources) Surgical follow-up; Translations: [Encounter for follow-up examination after completed treatment for conditions other than malignant neoplasm] Onset: 12-20-2023 11-17-2023 Episodic Other aftercare (2 sources) Encounter for follow-up examination after completed treatment for conditions other than malignant neoplasm; Translations: [Encounter for follow-up examination after completed treatment for conditions other than malignant neoplasm] Onset: 12-20-2023 Episodic Other diseases of kidney and ureters (2 sources) Disorder of kidney and ureter, unspecified; Translations: [Disorder of kidney and ureter, unspecified] Onset: 10-15-2021 Episodic Other gastrointestinal disorders (2 sources) Constipation, unspecified; Translations: [Constipation, unspecified] Onset: 10-15-2021 Episodic Other gastrointestinal disorders (8 sources) Slow transit constipation; Translations: [Slow transit constipation] Onset: 03-05-2024 03-05-2024 Episodic Peritonitis and intestinal abscess (20 sources) Abdominal abscess; Translations: [Peritoneal abscess] Onset: 08-02-2023 07-10-2023 Episodic Pneumonia (except that caused by tuberculosis or sexually transmitted disease) (20 sources) Pneumonia; Translations: [Pneumonia, unspecified organism] Onset: 03-04-2019 03-04-2019 Episodic Residual codes; unclassified (20 sources) Intolerance to drug; Translations: [Other specified health status] Onset: 08-02-2023 08-02-2023 Episodic Residual codes; unclassified (8 sources) Insomnia; Translations: [Insomnia, unspecified] Onset: 03-05-2024 03-05-2024 Episodic Residual codes; unclassified (2 sources) Other specified health status; Translations: [Other specified health status] Onset: 08-02-2023 Episodic Unclassified (1 source) Contact with and (suspected) exposure to COVID-19; Translations: [Contact with and (suspected) exposure to COVID-19] Onset: 06-20-2022 Results Test Name Value Interpretation Reference Range Facility [facility] 06-27-2024 CNOV Office Visit (AGHWN) PRISCILA CHA ([id number]) 1955 F Date Time Provider Department 06/27/24 11:15 [facility] your visit today, we recorded the following information about you: Respiration Weight Height 18/minute 61 kg 1.6 m Lachelle Pelletier LPN 06/27/2024 12:01 PM Signed Injection of 4cc marcaine and 2cc kenalog ordered by Dr. Zavala. Injection prepared per order and handed off to ordering physician. WILMER Aragon Jonathan James, MD 06/27/2024 12:01 PM Signed PAIN EVALUATION 06/22/2024 0611 06/27/2024 1140 Pain Level: -- 8 Pain Location: Shoulder-Left Shoulder-Left Description: Aching Aching;Sore;Throbbing;R adiating Duration Amount of Time: -- 1 Duration Units: Days Months Frequency: Intermittent Continuous Intervention/Comfort measure: Medication -- Encounter Diagnosis ICD-10-CM 1. Tear of left rotator cuff, unspecified tear extent, unspecified whether traumatic M75.102 Large Joint Arthro/Inj: L shoulder joint 06/27/2024 12:01 PM The procedure site was prepped in the usual sterile fashion. Site: L shoulder joint Medications: 80 mg triamcinolone acetonide 40 mg/mL Anesthetics: 4 mL bupivacaine (PF) 0.25 % (2.5 mg/mL) Outcome: Tolerated well, no immediate complications Post-injection instructions were reviewed with the patient and the patient voiced understanding of these instructions. Annabel Zavala MD Shoulder AND Elbow Surgeon Department of Orthopaedic Surgery [facility] Referring Provider: SELF [[id number]] Allergies As of Date: 06/27/2024 Noted Allergy Reaction IBUPROFEN 02/12/2024 14 - Other: See Comments Comments: Patient says gets purple spots KETOROLAC TROMETHAMINE 02/12/2024 14 - Other: See Comments Comments: Purple spots LEVAQUIN (LEVOFLOXACIN) 06/28/2017 8 - GI Upset SULFA (SULFONAMIDE ANTIBIOTICS) 06/28/2017 11 - Vomiting 8 - GI Upset Date Reviewed: 06/27/2024 Reviewed by: Lachelle Pelletier LPN - Fully Assessed Primary Visit Diagnosis:Tear of left rotator cuff, unspecified tear extent, unspecified whether traumatic [M75.102] Order(s):Large Joint Arthro/Inj: L shoulder joint [CLR962] Order #: [id number] [] bupivacaine (PF) 0.25 % (2.5 mg/mL) 4 mL injection (SENSORCAINE MPF)Disp: Rfl: [] triamcinolone acetonide 80 mg injection (KeNALog 40)Disp: Rfl: Prescriptions as of 06/27/2024 - fexofenadine HCl (PRIYANKA ORAL) Take by mouth. - fluticasone (FLONASE) 50 mcg/actuation nasal spray 1-2 spray in each nostril Nasally Once a day for 30 days - lisinopril-hydroCHLOROt hiazide (ZESTORETIC) 20-25 mg per tablet 1 tablet Orally Once a day for 90 days - TRELEGY ELLIPTA 100-62.5-25 mcg inhalation powder - ylawlemztst-lqgpgcyjj-w ilanter (TRELEGY ELLIPTA) 200-62.5-25 mcg inhalation powder 1 Puff. - MAGNESIUM GLYCINATE ORAL Take 400 mg by mouth once daily. - HERBAL THERAPY CBD Gummie- Take one by mouth daily at bedtime as needed for insomnia - cholecalciferol (VITAMIN D3) 1,000 unit tab tablet 2 tabs Orally Once a day - traZODone (DESYREL) 50 mg tablet Take 50 mg by mouth daily at bedtime. - clonazePAM (KLONOPIN) 0.5 mg tablet Take 0.25 mg by mouth two times a day as needed for anxiety. Patient reports that Klonopin 0.5mg daily prn is prescribed but that when at home she usually takes Klonopin 0.25mg bid prn Paula Ryan Bernal, [facility] October 17, 2023 7:43 AM - gabapentin (NEURONTIN) 300 mg capsule Take 300 mg by mouth daily at bedtime. Problem List As Of Date 06/27/2024 Noted Resolved Spondylolisthesis at L5-S1 level [M43.17] Chronic pain [G89.29] Multilevel degenerative disc disease [M53.9] Spondylolisthesis of lumbar region [M43.16] 07/06/2017 Spondylolisthesis at L4-L5 level [M43.16] 07/06/2017 COPD (chronic obstructive pulmonary disease) (H* Preop examination [Z01.818] 03/05/2024 ANJANA (obstructive sleep apnea) [G47.33] 09/27/2023 S/P total right hip arthroplasty [Z96.641] 10/17/2023 Primary osteoarthritis involving multiple joint*10/17/2023 Severe malnutrition (HCC) [E43] 11/29/2023 Benzodiazepine dependence (HCC) [F13.20] 03/05/2024 Back pain [M54.9] 03/05/2024 Chronic fatigue [R53.82] 03/05/[address] (HCC) [Z93.3] 01/05/2024 Diverticulitis [K57.92] 06/23/2023 Grief [F43.21] 03/05/2024 Immunodeficiency due to conditions classified e*03/05/2024 Insomnia [G47.00] 03/05/2024 Depression with anxiety [F41.8] 03/05/2024 Primary hypertension [I10] 06/24/2023 Primary osteoarthritis of right hip [M16.11] 03/05/2024 Slow transit constipation [K59.01] 03/05/2024 Spinal stenosis [M48.00] 03/05/2024 Tobacco dependence syndrome [F17.200] 03/05/2024 Prescriptions ordered this encounter Disp Refills Start End BUPIVACAINE (PF) 0.25 % (2.5 MG/ML) * 06/27/2024 06/27/2024 Route: Inj-ORTHO (more content not included)... Normal [facility] Joint Arthro/Inj: L sh oulddesirae jointon 06-27-2024 Annabel Zavala MD 06/27/2024 12:01 PM Large Joint Arthro/Inj: L shoulder joint 06/27/2024 12:01 PM The procedure site was prepped in the usual sterile fashion. Site: L shoulder joint Medications: 80 mg triamcinolone acetonide 40 mg/mL Anesthetics: 4 mL bupivacaine (PF) 0.25 % (2.5 mg/mL) Outcome: Tolerated well, no immediate complications Post-injection instructions were reviewed with the patient and the patient voiced understanding of these instructions. [facility] XR LUMBAR 4V AP/LAT/ FLEX/EX Ton 06-22-2024 XR LUMBAR 4V AP/LAT/ FLEX/EXT * * *Final Report* * * DATE OF EXAM: Jun 22 2024 11:36AM [id number] - XR LUMBAR 4V AP/LAT/ FLEX/EXT / PROCEDURE REASON: multiple diagnoses * * * * Physician Interpretation * * * * EXAM TITLE: XR LUMBAR 4V AP/LAT/ FLEX/EXT DATE: 06/25/2024 3:47 PM INDICATION: Low back pain with history of previous lumbar surgery COMPARISON: 11/29/2017 FINDINGS: Stable posterior fusion at the L4-5 level. Hardware is intact. No fractures or dislocations. Stable grade 1 anterolisthesis of L4 over L5. Stable advanced multilevel degenerative disc disease. Alignment does not change with flexion or extension. Slight worsening of scoliosis concave to the right. No acute soft tissue abnormality. IMPRESSION: Slight worsening of scoliosis with stable appearance otherwise. No evidence for dynamic instability. Marketing Project Lead: PSCB Transcribe Date/Time: Jun 25 2024 3:47P Dictated by : PETERSON GONZALEZ MD This examination was interpreted and the report reviewed and electronically signed by: PETERSON GONZALEZ MD on Jun 25 2024 3:48PM EST [id number] Normal [facility] CNOVon 06-12-2024 CNOV Office Visit (NEAGCL M) PRISCILA CHA ([id number]) 1955 F Date Time Provider Department 06/12/24 11:00 AM LAVERN HIDALGO NEAGCLM During your visit today, we recorded the following information about you: Pulse Respiration Blood pressure Weight 92/minute 16/minute 137/84 61 kg Lavern Hidalgo APRN.CNP 06/12/2024 11:38 AM Signed NEUROSURGERY CONSULT NOTE Lavern Hidalgo APRN.CNP Date of visit: June 12, 2024 Patient Name: Ms.Cynthia Ryan Cha Date of : 1955 Current Age: [age] year old Sex: female MRN/E# [id number] CHIEF COMPLAINT: Patient presents with: Established Patient HISTORY OF PRESENT ILLNESS : The patient is a 68 year old, female with a PMHx of bowel perforation, COPD, migraine, IBS, recurring shingles, sleep apnea who is self referred for Neurosurgical evaluation. The patient presents as a new patient without imaging for evaluation. She is a former patient of Dr. Lopez and was last seen in the office in May 2021. She has a history of a 1 level lumbar fusion in [address] Lopez. She did well following surgery and no further follow-up was indicated. Since then she reports that she underwent a right total hip replacement at the beginning of the year. Following the hip replacement she had a perforated bowel from diverticulitis and ended up with an ostomy bag. This has since been reversed. Now that she is feeling better and ambulating more she has developed pain strictly to the left lower back without radiation or weakness to the left lower extremity. She states pain is worse upon awakening in the morning and improves throughout the day however the pain can get severe causing issues with her ADLs. She states that she feels as if her right lower extremity is longer than her left lower extremity since her hip replacement and this causes her to walk awkwardly. Over the course of the year she has participated in multiple sessions of physical therapy given her multiple surgeries. This has not been beneficial for her left SI joint symptoms. She is utilizing OTC NSAIDs sparingly given her GI issues and ice for symptom control. She presents for evaluation and plan of care. SYMPTOMS: left SI joint pain DERMATOMAL DISTRIBUTION: Not applicable PREVIOUS CONSERVATIVE TREATMENTS: OTC medications as needed PREVIOUS SURGERY: SURGERY #1: L4-L5 MIS lami/decompression and TLIF on 07/06/[address] Lopez. SURGICAL RISK: Smoker: Daily Diabetic: No Anticoagulants / Antiplatelets: No Occupation: N/A PAIN EVALUATION 06/08/2024 1809 Pain Level: 9 Pain Location: Back-Lower Description: Aching;Radiating Duration Amount of Time: 13 Duration Units: Hours Frequency: Continuous Intervention/Comfort measure: Medication;Reposition;C old PAST MEDICAL HISTORY Diagnosis Date Anxiety Arthritis Atrophic vaginitis Bowel perforation (HCC) 10/2023 Chronic pain Constipation COPD (chronic obstructive pulmonary disease) ([facility]) Depression Dyspareunia in female Headache, migraine Hemorrhoids IBS (irritable bowel syndrome) patient denies IBS pt will d/w PCP Menopausal and female climacteric states Multilevel degenerative disc disease Panic disorder Shingles recurring Sinusitis Sleep apnea Spondylolisthesis at L5-S1 level Urinary frequency PAST SURGICAL HISTORY Procedure Laterality Date ANESTHESIA TOTAL HIP ARTHROPLASTY Right 10/16/2023 BACK SURGERY HX 06/2017 cage around discs CATARACT EXTRACTION HX 2008 COLONOSCOPY 01/10/2018 COLONOSCOPY 01/02/2024 COLOSTOMY Left 11/04/2023 exploratory laparotomy with partial left colectomy and colostomy; Dr. Adria Lopez (Mock's procedure) COLOSTOMY 02/16/2024 reversal EXTENSIVE JAW SURGERY 1982 SEPTOPLASTY 1985 TONSILLECTOMY HX age 4 FAMILY HISTORY Problem Relation Age of Onset Coronary Artery Disease Mother Coronary Artery Disease Father Colon Cancer Paternal Grandmother Arthritis Other other (Congestive heart failure) Other Thyroid Other Disorder ALLERGIES Allergen Reactions Ibuprofen Other: See Comments Patient says gets purple spots Ketorolac Trometham* Other: See Comments Purple spots Levaquin [Levofloxa* GI Upset Sulfa (Sulfonamide * Vomiting, GI Upset Current Outpatient Medications Medication Sig Dispense Refill fexofenadine HCl (PRIYANKA ORAL) Take by mouth. fluticasone (FLONASE) 50 mcg/actuation nasal spray 1-2 spray in each nostril Nasally Once a day for 30 days lisinopril-hydroCHLOROt hiazide (ZESTORETIC) 20-25 mg per tablet 1 tablet Orally Once a day for 90 days TRELEGY ELLIPTA 100-62.5-25 mcg inhalation powder ecencsfrgon-wrhyygaam-c ilanter (TRELEGY ELLIPTA) 200-62.5-25 mcg inhalation powder 1 Puff. MAGNESIUM GLYCINATE ORAL Take 400 mg by mouth once daily. HERBAL THERAPY CBD Gummie- Take one by mouth daily at bedtime as needed for (more content not included)... Normal [facility] Progress Noteon 03-20-2024 Progress Note Normal [facility] 36on 03-12-2024 36 Normal [facility] 36 Error Normal [facility] Progress Noteon 02-23-2024 Progress Note Status post [place] y closure 02/09/2024. Still some abdominal pain but improving on a daily basis. Incisions healing well. Continue with light activities and diet as tolerated. Will see back in the office in 3 to 4 weeks. Adria Lopez MD [facility] 36on 02-20-2024 36 Normal [facility] 36 [address] is having po [address] op issues with severe pain and diarrhea. No fever. Please call to advise. Normal [facility] BASIC METABOLIC PANELon 05-3 Anion gap [Moles/Vol] 5 mmol/L Normal 3-13 [facility] Comment on above: Performed By: #### L AB15 ####Chief Information Officer: FREDRICK KHAN ([id number])[facility] ([facility])[address] [place] [address] Calcium [Mass/Vol] 8.5 mg/dL Normal 8.4-10.4 [facility] Comment on above: Performed By: #### L AB15 ####Chief Information Officer: FREDRICK KHAN ([id number])[facility] ([facility])[address] [place] [address] [place] Chloride [Moles/Vol] 100 mmol/L Normal 98-107 [facility] Comment on above: Performed By: #### L AB15 ####Chief Information Officer: FREDRICK KHAN ([id number])[facility] ([facility])[address] [place] [address] [place] CO2 [Moles/Vol] 29 mmol/L Normal 22-30 [facility] Comment on above: Performed By: #### L AB15 ####Chief Information Officer: FREDRICK KHAN ([id number])[facility]A [facility] (SB[facility])[address] Creatinine [Mass/Vol] 0.61 mg/dL Normal 0.52-1.04 [facility] Comment on above: Performed By: #### L AB15 ####Chief Information Officer: FREDRICK KHAN ([id number])[facility] CENTERMaik [facility] (SB[facility])[address] GLOMERULAR FILTRATION RATE ML/MIN/1.73 SQ M.PREDICTED >90.0 Normal >60.0 [facility] Comment on above: Result Comment: Calc ulation based on the Chronic Kidney Disease Epidemiology Collaboration (CKD-EPI) equation refit without adjustment for race Performed By: #### L AB15 ####Chief Information Officer: FREDRICK KHAN ([id number])[facility]ENTERMaik [facility] ([facility])[address] Glucose [Mass/Vol] 96 mg/dL Normal 70-100 [facility] Comment on above: Performed By: #### L AB15 ####Chief Information Officer: FREDRICK KHAN ([id number])[facility]BPRESBYTER[facility] (SBHLAB)[address] Potassium [Moles/Vol] 4.3 mmol/L Normal 3.5-5.1 [facility] Comment on above: Performed By: #### L AB15 ####Chief Information Officer: FREDRICK KHAN ([id number])[facility]BPRESBY[facility] (SB[facility]AB)[address] [place] [address] [place] Sodium [Moles/Vol] 133 mmol/L Low 135-145 [facility] Comment on above: Performed By: #### L AB15 ####Chief Information Officer: FREDRICK KHAN ([id number])[facility] ([facility])[address] [place] [address] [place] Urea nitrogen [Mass/Vol] 6 mg/dL Low 7-17 [facility] Comment on above: Performed By: #### L AB15 ####Chief Information Officer: FREDRICK KHAN ([id number])[facility] ([facility])[address] [place] [address] Basic metabolic 1998 panelon 02-16-2024 Anion gap [Moles/Vol] 5 mmol/L 3 - 13 mmol/L [facility] Calcium [Mass/Vol] 8.5 mg/dL 8.4 - 10. 4 mg/dL [facility] Chloride [Moles/Vol] 100 mmol/L 98 - 10 7 mmol/L [facility] CO2 [Moles/Vol] 29 mmol/L 22 - 30 mmol/L [facility] Creatinine [Mass/Vol] 0.61 mg/dL 0.52 - 1.04 mg/dL [facility] GFR/1.73 sq M.predicted MDRD (S/P/Bld) [Vol rate/Area] - PINF [facility] Comment on above: Calculation based on the Chronic Kidney Disease Epidemiology Collaboration (CKD-EPI) equation refit without adjustment for race Glucose [Mass/Vol] 96 mg/dL 70 - 100 mg/dL [facility] Interpretation and review of laboratory results Abnormal [facility] Potassium [Moles/Vol] 4.3 mmol/L 3.5 - 5.1 mmol/L [facility] Sodium [Moles/Vol] 133 mmol/L Low 135 - 145 mmol/L [facility] Urea nitrogen [Mass/Vol] 6 mg/dL Low 7 - 17 mg/dL [facility] CARECOORDon 02-16-2024 CARECOORD Normal [facility] CBC (HEMOGRAM)on 02-16-2024 Erythrocyte distribution width (RBC) [Ratio] 18.8 % High 11.5-15.0 [facility] Comment on above: Performed By: #### L [id number] ####Chief Information Officer: FREDRICK KHAN ([id number])[facility] ([facility])[address] [place] [address] Hematocrit (Bld) [Volume fraction] 24.1 % Low 35.0-47.0 [facility] Comment on above: Performed By: #### L AB294 ####Chief Information Officer: FREDRICK RAMOSSATINDER ([id number])[facility] BATIST[facility]h ([facility])[address] Hemoglobin (Bld) [Mass/Vol] 7.7 g/dL Low 11.7-16.0 [facility] Comment on above: Performed By: #### L AB294 ####Chief Information Officer: FREDRICK RAMOSSATINDER ([id number])[facility]ENTERMaik BATISTADinesh (SBHLAB)[address] MCH (RBC) [Entitic mass] 24.8 pg Low 26.0-34.0 [facility] Comment on above: Performed By: #### L AB294 ####Chief Information Officer: FREDRICK MONROYNehalSATINDER ([id number])[facility]ENTERMaik BATISTADinesh (SBHLAB)[address] MCHC 32.0 % Normal 30.5-36.0 [facility] Comment on above: Performed By: #### L AB294 ####Chief Information Officer: FREDRICK RAMOSSATINDER ([id number])[facility]ENTERMaik HINSONPRESBYTERIAN S[facility] MEDICAL CENTERDinesh (SBHLAB)[address] MCV (RBC) [Entitic vol] 77.5 fL Normal 77.0-99.0 [facility] Comment on above: Performed By: #### L AB294 ####Chief Information Officer: FREDRICK KHAN ([id number])[facility] CENTERMaik HINSONJUSTEN (SBHLAB)[address] Platelet mean volume (Bld) [Entitic vol] 8.9 fL Low 9.0-12.7 [facility] Comment on above: Performed By: #### L AB294 ####Chief Information Officer: FREDRICK KHAN ([id number])[facility]ENTERMaik HINSONPRESBYTERIAN S[facility] CENTERDinesh (SB[facility]AB)[address] Platelets (Bld) [#/Vol] 537 10*3/uL High 140-440 [facility] Comment on above: Performed By: #### L AB294 ####Chief Information Officer: FREDRICK KHAN ([id number])[facility]ENTERMaik [place] ([facility])[address] [place] [address] RBC (Bld) [#/Vol] 3.11 10*6/uL Low 3.80-5.20 [facility] Comment on above: Performed By: #### L AB294 ####Chief Information Officer: FREDRICK KHAN ([id number])[facility]ENTERMaik [facility]PRES[facility] ([facility])[address] [place] [address] WBC (Bld) [#/Vol] 7.4 10*3/uL Normal 3.6-10.7 [facility] Comment on above: Performed By: #### L AB294 ####Chief Information Officer: FREDRICK KHAN ([id number])[facility]ENTERMaik [facility] ([facility])[address] [place] [address] CBC panel Auto (Bld)Ordered By: Sandy Ku on 02-16-2024 Erythrocyte distribution width (RBC) [Ratio] 18.8 % High 11.5 - 15.0 % [facility] Hematocrit (Bld) [Volume fraction] 24.1 % Low 35.0 - 47.0 % [facility] Hemoglobin (Bld) [Mass/Vol] 7.7 g/dL Low 11.7 - 16.0 g/dL [facility] Interpretation and review of laboratory results Abnormal [facility] MCH (RBC) [Entitic mass] 24.8 pg Low 26.0 - 34.0 pg [facility] MCHC (RBC) [Mass/Vol] 32.0 % 30.5 - 36.0 % [facility] MCV (RBC) [Entitic vol] 77.5 fL 77.0 - 99.0 fL [facility] Platelet mean volume (Bld) [Entitic vol] 8.9 fL Low 9.0 - 12.7 fL [facility] Platelets (Bld) [#/Vol] 537 10*3/uL High 140 - 440 10*3/uL [facility] RBC (Bld) [#/Vol] 3.11 10*6/uL Low 3.80 - 5.2 0 10*6/uL [facility] WBC (Bld) [#/Vol] 7.4 10*3/uL 3.6 - 10.7 10*3/uL [facility] No Panel Informationon 02-15 superficial thrombophlebitis in the right median antecubital vein. No evidence of acute deep vein thrombosis in the right upper extremity. Contralateral imaging of the left subclavian vein was normal. Right Upper Venous No evidence of acute DVT. Internal Jugular Vein: Patent, normal phasicity, spontaneous, compressible. Innominate Vein: Patent, spontaneous. Subclavian Vein: Patent, normal phasicity, spontaneous, normal augmentation, compressible. Axillary Vein: Patent, normal phasicity, spontaneous, normal augmentation, compressible. Brachial Vein: Patent, normal phasicity, spontaneous, compressible. Radial Vein: Patent, compressible. Ulnar Vein: Patent, compressible. Cephalic Vein (Upper Arm): Patent, compressible. Cephalic Vein (Forearm): Patent, compressible. Basilic Vein (Upper Arm): Patent, compressible. Basilic Vein (Forearm): Patent, compressible. Median/Antecubital Vein: superficial thrombophlebitis in the right median antecubital vein. Left Upper Venous For comparison purposes, the left subclavian vein was investigated. This vein appeared to show normal color filling and Doppler interrogation showed phasic, spontaneous and somewhat pulsatile flow. Logging Superintendent Details A garcias scale, color Doppler imaging, spectral Doppler analysis and B-flow ultrasound was performed. During the study longitudinal and transverse views were obtained. Pulsed wave doppler was performed. The exam was performed with the patient in the supine position. Overall the study quality was good. Study was technically difficult due to: bedside exam. CV CPACS Progress Noteon 02-16-2024 Progress Note Normal [facility] Progress Note Normal [facility] Progress Note Normal [facility] Progress Note Normal [facility] BASIC METABOLIC PANELon 01-18 Anion gap [Moles/Vol] 10 mmol/L Normal 3-13 [facility] Comment on above: Performed By: #### L AB15 ####Chief Information Officer: FREDRICK KHAN ([id number])[facility] ([facility])[address] [place] [address] Calcium [Mass/Vol] 8.6 mg/dL Normal 8.4-10.4 [facility] Comment on above: Performed By: #### L AB15 ####Chief Information Officer: FREDRICK KHAN ([id number])[facility]ENTERA [facility]ENTERDinesh (SBHLAB)[address] Chloride [Moles/Vol] 98 mmol/L Normal 98-107 [facility] Comment on above: Performed By: #### L AB15 ####Chief Information Officer: FREDRICK KHAN ([id number])[facility]ENTERA [facility]BPRESBY[facility] (SB[facility]AB)[address] CO2 [Moles/Vol] 25 mmol/L Normal 22-30 [facility] Comment on above: Performed By: #### L AB15 ####Chief Information Officer: FREDRICK KHAN ([id number])[facility] ([facility])[address] Creatinine [Mass/Vol] 0.53 mg/dL Normal 0.52-1.04 [facility] Comment on above: Performed By: #### L AB15 ####Chief Information Officer: FREDRICK KHAN ([id number])[facility] GLOMERULAR FILTRATION RATE ML/MIN/1.73 SQ M.PREDICTED >90.0 Normal >60.0 [facility] Comment on above: Result Comment: Calc ulation based on the Chronic Kidney Disease Epidemiology Collaboration (CKD-EPI) equation refit without adjustment for race Performed By: #### L AB15 ####Chief Information Officer: FREDRICK KHAN ([id number])[facility]A [facility]PRES[facility] ([facility])[address] [place] [address] [place] Glucose [Mass/Vol] 99 mg/dL Normal 70-100 [facility] Comment on above: Performed By: #### L AB15 ####Chief Information Officer: FREDRICK KHAN ([id number])[facility] [place] [address] [place] Potassium [Moles/Vol] 4.3 mmol/L Normal 3.5-5.1 [facility] Comment on above: Performed By: #### L AB15 ####Chief Information Officer: FREDRICK KHAN ([id number])[facility] CENTERMaik [facility] ([facility])[address] Sodium [Moles/Vol] 133 mmol/L Low 135-145 [facility] Comment on above: Performed By: #### L AB15 ####Chief Information Officer: FREDRICK KHAN ([id number])[facility]ENTERMaik [facility] ([facility])[address] Urea nitrogen [Mass/Vol] 5 mg/dL Low 7-17 [facility] Comment on above: Performed By: #### L AB15 ####Chief Information Officer: FREDRICK RAMOSSATINDER ([id number])[facility] ([facility])[address] Basic metabolic 1998 panelon 02-15-2024 Anion gap [Moles/Vol] 10 mmol/L 3 - 13 mmol/L [facility] Calcium [Mass/Vol] 8.6 mg/dL 8.4 - 10. 4 mg/dL [facility] Chloride [Moles/Vol] 98 mmol/L 98 - 10 7 mmol/L [facility] CO2 [Moles/Vol] 25 mmol/L 22 - 30 mmol/L [facility] Creatinine [Mass/Vol] 0.53 mg/dL 0.52 - 1.04 mg/dL [facility] GFR/1.73 sq M.predicted MDRD (S/P/Bld) [Vol rate/Area] - PINF [facility] Comment on above: Calculation based on the Chronic Kidney Disease Epidemiology Collaboration (CKD-EPI) equation refit without adjustment for race Glucose [Mass/Vol] 99 mg/dL 70 - 100 mg/dL [facility] Interpretation and review of laboratory results Abnormal [facility] Potassium [Moles/Vol] 4.3 mmol/L 3.5 - 5.1 mmol/L [facility] Sodium [Moles/Vol] 133 mmol/L Low 135 - 145 mmol/L [facility] Urea nitrogen [Mass/Vol] 5 mg/dL Low 7 - 17 mg/dL [facility] CARECOORDon 02-15-2024 CARECOORD Normal [facility] CBC (HEMOGRAM)on 02-15-2024 Erythrocyte distribution width (RBC) [Ratio] 19.1 % High 11.5-15.0 [facility] Comment on above: Performed By: #### L [id number] ####Chief Information Officer: FREDRICK KHAN ([id number])[facility] (SB[facility])[address] Hematocrit (Bld) [Volume fraction] 24.4 % Low 35.0-47.0 [facility] Comment on above: Performed By: #### L AB294 ####Chief Information Officer: FREDRICK KHAN ([id number])[facility])[address] [place] [address] Hemoglobin (Bld) [Mass/Vol] 7.7 g/dL Low 11.7-16.0 [facility] Comment on above: Performed By: #### L [id number] ####Chief Information Officer: FREDRICK KHAN ([id number])[facility] [place] [address] MCH (RBC) [Entitic mass] 24.7 pg Low 26.0-34.0 [facility] Comment on above: Performed By: #### L AB294 ####Chief Information Officer: FREDRICK KHAN ([id number])[facility] (SBAB)[address] [place] [address] MCHC 31.6 % Normal 30.5-36.0 [facility] Comment on above: Performed By: #### L [id number] ####Chief Information Officer: FREDRICK KHAN ([id number])[facility] [place] [address] MCV (RBC) [Entitic vol] 78.2 fL Normal 77.0-99.0 [facility] Comment on above: Performed By: #### L [id number] ####Chief Information Officer: FREDRICK SEYMOURCER ([id number])[facility]ENTERMaik KHOURY ([facility])[address] Platelet mean volume (Bld) [Entitic vol] 11.3 fL Normal 9.0-12.7 [facility] Comment on above: Performed By: #### L AB294 ####Chief Information Officer: FREDRICK MONROYNehalSATINDER ([id number])[facility]ENTERMaik [facility]SONPRES[facility] (SBHLAB)[address] Platelets (Bld) [#/Vol] 293 10*3/uL Normal 140-440 [facility] Comment on above: Performed By: #### L [id number] ####Chief Information Officer: FREDRICK SEYMOURCER ([id number])[facility]ENTERMaik [facility] ([facility])[address] [place] [address] RBC (Bld) [#/Vol] 3.12 10*6/uL Low 3.80-5.20 [facility] Comment on above: Performed By: #### L [id number] ####Chief Information Officer: FREDRICK MONROYCAROLINA ([id number])[facility]ENTERMaik [facility] ([facility])[address] WBC (Bld) [#/Vol] 6.6 10*3/uL Normal 3.6-10.7 [facility] Comment on above: Performed By: #### L [id number] ####Chief Information Officer: FREDRICK KHAN ([id number])[facility]ENTERMaik [facility]PRES[facility] ([facility])[address] CBC panel Auto (Bld)on 02-14 Erythrocyte distribution width (RBC) [Ratio] 19.1 % High 11.5 - 15.0 % [facility] Hematocrit (Bld) [Volume fraction] 24.4 % Low 35.0 - 47.0 % [facility] Hemoglobin (Bld) [Mass/Vol] 7.7 g/dL Low 11.7 - 16.0 g/dL [facility] Interpretation and review of laboratory results Abnormal [facility] MCH (RBC) [Entitic mass] 24.7 pg Low 26.0 - 34.0 pg [facility] MCHC (RBC) [Mass/Vol] 31.6 % 30.5 - 36.0 % [facility] MCV (RBC) [Entitic vol] 78.2 fL 77.0 - 99.0 fL [facility] Platelet mean volume (Bld) [Entitic vol] 11.3 fL 9.0 - 12.7 fL [facility] Platelets (Bld) [#/Vol] 293 10*3/uL 140 - 440 10*3/uL [facility] RBC (Bld) [#/Vol] 3.12 10*6/uL Low 3.80 - 5.2 0 10*6/uL [facility] WBC (Bld) [#/Vol] 6.6 10*3/uL 3.6 - 10.7 10*3/uL [facility] IDNon 02-15-2024 IDN Normal [facility] IDN Normal [facility] Nursing Noteon 02-15-2024 Nursing Note Normal [facility] Progress Noteon 02-15-2024 Progress Note Normal [facility] Progress Note Normal [facility] Progress Note Normal [facility] Progress Note Normal [facility] CARECOORDon 02-14-2024 CARECOORD Normal [facility] CBC (HEMOGRAM)on 02-14-2024 Erythrocyte distribution width (RBC) [Ratio] 19.0 % High 11.5-15.0 [facility] Comment on above: Performed By: #### L [id number] ####Chief Information Officer: FREDRICK KHAN ([id number])[facility] ([facility])[address] [place] [address] Hematocrit (Bld) [Volume fraction] 23.2 % Low 35.0-47.0 [facility] Comment on above: Performed By: #### L [id number] ####Chief Information Officer: FREDRICK KHAN ([id number])[facility] ([facility])[address] Hemoglobin (Bld) [Mass/Vol] 7.5 g/dL Low 11.7-16.0 [facility] Comment on above: Performed By: #### L [id number] ####Chief Information Officer: FREDRICK KHAN ([id number])[facility]ENTERMaik HINSONJUSTEN ([facility])[address] MCH (RBC) [Entitic mass] 25.3 pg Low 26.0-34.0 [facility] Comment on above: Performed By: #### L [id number] ####Chief Information Officer: FREDRICK KHAN ([id number])[facility]ENTERMaik HINSONPRESBYTERIAN S[facility] CENTERDinesh ([facility])[address] MCHC 32.3 % Normal 30.5-36.0 [facility] Comment on above: Performed By: #### L [id number] ####Chief Information Officer: FREDRICK KHAN ([id number])[facility]ENTERMaik HINSONJUSTEN ([facility])[address] MCV (RBC) [Entitic vol] 78.4 fL Normal 77.0-99.0 [facility] Comment on above: Performed By: #### L [id number] ####Chief Information Officer: FREDRICK KHAN ([id number])[facility]ENTERMaik [facility]ENTERDinesh ([facility])[address] Platelet mean volume (Bld) [Entitic vol] 9.2 fL Normal 9.0-12.7 [facility] Comment on above: Performed By: #### L [id number] ####Chief Information Officer: FREDRICK KHAN ([id number])[facility]ENTERMaik [facility]PRES[facility] (SBHLAB)[address] [place] [address] [place] Platelets (Bld) [#/Vol] 415 10*3/uL Normal 140-440 [facility] Comment on above: Performed By: #### L [id number] ####Chief Information Officer: FREDRICK KHAN ([id number])[facility]ENTERMaik [facility] ([facility])[address] RBC (Bld) [#/Vol] 2.96 10*6/uL Low 3.80-5.20 [facility] Comment on above: Performed By: #### L [id number] ####Chief Information Officer: FREDRICK MONROYNehalSATINDER ([id number])[facility] ([facility])[address] [place] [address] WBC (Bld) [#/Vol] 7.1 10*3/uL Normal 3.6-10.7 [facility] Comment on above: Performed By: #### L [id number] ####Chief Information Officer: FREDRICK KHAN ([id number])[facility] ([facility])[address] [place] [address] CBC panel Auto (Bld)on 02-13 Erythrocyte distribution width (RBC) [Ratio] 19.0 % High 11.5 - 15.0 % [facility] Hematocrit (Bld) [Volume fraction] 23.2 % Low 35.0 - 47.0 % [facility] Hemoglobin (Bld) [Mass/Vol] 7.5 g/dL Low 11.7 - 16.0 g/dL [facility] Interpretation and review of laboratory results Abnormal [facility] MCH (RBC) [Entitic mass] 25.3 pg Low 26.0 - 34.0 pg [facility] MCHC (RBC) [Mass/Vol] 32.3 % 30.5 - 36.0 % [facility] MCV (RBC) [Entitic vol] 78.4 fL 77.0 - 99.0 fL [facility] Platelet mean volume (Bld) [Entitic vol] 9.2 fL 9.0 - 12.7 fL [facility] Platelets (Bld) [#/Vol] 415 10*3/uL 140 - 440 10*3/uL [facility] RBC (Bld) [#/Vol] 2.96 10*6/uL Low 3.80 - 5.2 0 10*6/uL [facility] WBC (Bld) [#/Vol] 7.1 10*3/uL 3.6 - 10.7 10*3/uL [facility] COMPREHENSIVE METABOLIC PANE Miles 02-14-2024 Albumin [Mass/Vol] 3.0 g/dL Low 3.5-5.0 [facility] Comment on above: Performed By: #### L AB17 ####Chief Information Officer: FREDRICK KHAN ([id number])[facility] ([facility])[address] ALP [Catalytic activity/Vol] 85 U/L Normal 38-126 [facility] Comment on above: Performed By: #### L AB17 ####Chief Information Officer: FREDRICK KHAN ([id number])[facility] [place] ([facility])[address] [place] [address] [place] ALT [Catalytic activity/Vol] 11 U/L Normal 0-34 [facility] Comment on above: Performed By: #### L AB17 ####Chief Information Officer: FREDRICK KHAN ([id number])[facility] [place] ([facility])[address] Anion gap [Moles/Vol] 7 mmol/L Normal 3-13 [facility] Comment on above: Performed By: #### L AB17 ####Chief Information Officer: FREDRICK KHAN ([id number])[facility] [place] ([facility])[address] AST [Catalytic activity/Vol] 20 U/L Normal 15-46 [facility] Comment on above: Performed By: #### L AB17 ####Chief Information Officer: FREDRICK KHAN ([id number])[facility] [place] (SBHLAB)[address] [place] [address] [place] Bilirubin [Mass/Vol] 0.5 mg/dL Normal 0.2-1.3 [facility] Comment on above: Performed By: #### L [id number] ####Chief Information Officer: FREDRICK KHAN ([id number])[facility] [place] (SBHLAB)[address] [place] [address] [place] Calcium [Mass/Vol] 8.4 mg/dL Normal 8.4-10.4 [facility] Comment on above: Performed By: #### L [id number] ####Chief Information Officer: FREDRICK KHAN ([id number])[facility] [place] (SBHLAB)[address] Chloride [Moles/Vol] 101 mmol/L Normal 98-107 [facility] Comment on above: Performed By: #### L [id number] ####Chief Information Officer: FREDRICK KHAN ([id number])[facility] HINSONJUSTEN (SBHLAB)[address] CO2 [Moles/Vol] 24 mmol/L Normal 22-30 [facility] Comment on above: Performed By: #### L [id number] ####Chief Information Officer: FREDRICK KHAN ([id number])[facility]ENTERMaik BARBPRESBYTER[facility] (SBHLAB)[address] Creatinine [Mass/Vol] 0.54 mg/dL Normal 0.52-1.04 [facility] Comment on above: Performed By: #### L [id number] ####Chief Information Officer: FREDRICK KHAN ([id number])[facility] [place] (SBHLAB)[address] GLOMERULAR FILTRATION RATE ML/MIN/1.73 SQ M.PREDICTED >90.0 Normal >60.0 [facility] Comment on above: Result Comment: Calc ulation based on the Chronic Kidney Disease Epidemiology Collaboration (CKD-EPI) equation refit without adjustment for race Performed By: #### L [id number] ####Chief Information Officer: FREDRICK KHAN ([id number])[facility] [place] (SBHLAB)[address] Glucose [Mass/Vol] 102 mg/dL High 70-100 [facility] Comment on above: Performed By: #### L [id number] ####Chief Information Officer: FREDRICK KHAN ([id number])[facility] BARBPRESBYTERIAN S[facility] CENTERN (SBHLAB)[address] Potassium [Moles/Vol] 4.8 mmol/L Normal 3.5-5.1 [facility] Comment on above: Performed By: #### L [id number] ####Chief Information Officer: FREDRICK KHAN ([id number])[facility] BARBPRESBYTERIAN SANTA FE MEDICAL CENTERDinesh (SBHLAB)[address] Protein [Mass/Vol] 5.9 g/dL Low 6.3-8.2 [facility] Comment on above: Performed By: #### L [id number] ####Chief Information Officer: FREDRICK KHAN ([id number])[facility] [place] (SBHLAB)[address] Sodium [Moles/Vol] 131 mmol/L Low 135-145 [facility] Comment on above: Performed By: #### L AB17 ####Chief Information Officer: FREDRICK SEYMOURCER ([id number])[facility]ENTERMaik HINSONPRESBYTERIAN SANTA FE MEDICAL CENTERN (SBHLAB)[address] Urea nitrogen [Mass/Vol] 6 mg/dL Low 7-17 [facility] Comment on above: Performed By: #### L [id number] ####Chief Information Officer: FREDRICK SEYMOURCER ([id number])[facility]ENTER[facility]ik [place] (SBHLAB)[address] [place] [address] Comprehensive metabolic 1998 panelon 02-14-2024 Albumin [Mass/Vol] 3.0 g/dL Low 3.5 - 5.0 g/dL [facility] ALP [Catalytic activity/Vol] 85 U/L 38 - 126 U/L [facility] ALT [Catalytic activity/Vol] 11 U/L 0 - 34 U/L [facility] Anion gap [Moles/Vol] 7 mmol/L 3 - 13 mmol/L [facility] AST [Catalytic activity/Vol] 20 U/L 15 - 46 U/L [facility] Bilirubin [Mass/Vol] 0.5 mg/dL 0.2 - 1 .3 mg/dL [facility] Calcium [Mass/Vol] 8.4 mg/dL 8.4 - 10. 4 mg/dL [facility] Chloride [Moles/Vol] 101 mmol/L 98 - 10 7 mmol/L [facility] CO2 [Moles/Vol] 24 mmol/L 22 - 30 mmol/L [facility] Creatinine [Mass/Vol] 0.54 mg/dL 0.52 - 1.04 mg/dL [facility] GFR/1.73 sq M.predicted MDRD (S/P/Bld) [Vol rate/Area] - PINF [facility] Comment on above: Calculation based on the Chronic Kidney Disease Epidemiology Collaboration (CKD-EPI) equation refit without adjustment for race Glucose [Mass/Vol] 102 mg/dL High 70 - 100 mg/dL [facility] Interpretation and review of laboratory results Abnormal [facility] Potassium [Moles/Vol] 4.8 mmol/L 3.5 - 5.1 mmol/L [facility] Protein [Mass/Vol] 5.9 g/dL Low 6.3 - 8.2 g/dL [facility] Sodium [Moles/Vol] 131 mmol/L Low 135 - 145 mmol/L [facility] Urea nitrogen [Mass/Vol] 6 mg/dL Low 7 - 17 mg/dL [facility] IDNon 02-14-2024 IDN Normal [facility]S IDN Normal [facility] No Panel InformationOrdered By: Anuradha Iqbal on 02-14-2024 Case Report Surgical Pathology Case: [id number] Authorizing Provider: Adria Lopez MD Collected: 02/09/2024 1035 Ordering Location: [facility] MAIN OR Received: 02/09/2024 1408 Pathologist: Anuradha Iqbal MD Specimens: A) - Large Intestine, Appendix, appendix B) - Small Intestine, Jejunum, SMALL BOWEL C) - Large Intestine, Rectum, RECTAL STUMP AND ANASTOMATIC RINGS [facility] Work Phone: Clinical Information q8qekROtVDCnfCMhZOK wNVx qqrTfMQImiPVdY8HeuaxbNO xgRO9wNA8frCxvwDUgmVOzA OIyMbGpe9znk631yGWxo0xk VQVIKGhtIOTVJXk9jYwxE75 if6L5LueiC7akXPMxOHyiZA DiQCzukBOuVBh3UKHkuZIlk vWjXkIqDIVdvCYtqBX0JOMt RD3hnaseJJlhPLbtAVTxcdD 0CQWttDKdQ1OqJINiZO1kvw vaUMO0YEwhEDLuBJF3MvZgL YXfs7Iezao7VmNpuSEzGMgf mUTtrlyoouMwNNSsCUZBs2z rh1FyyOhhpA3cqBnxU9EcKJ JHAn9BR8EaFPhSQ0VnTW4aM oteQgJnI4fGPZ7qNN4PNK9z K8QpNGQixTGfqP== [employer] Work Phone: Correction History t3oygEWsOWLoiTGqNFJe NVx dioPwHTOsxKSlH2WzcardOH uvDS8yBT7tlRrnhSTvwVBuU DNpGjFis0cga697jDQiv0zb UKNPKQxrRMKJUJf0gAiyB81 ct5X1UfjyP28llVAqMKC8QZ WnCPSfbPJqOOJnWCG0YBMlg BIpE5ulZKTrYV4exzjbHQpv RFduDHPpkUY4IBOdaWJvD8P kMNAwLMonUQFaqky9UtSgEr 9vdGVyeTcyMFxwYXJkXHBsY WluXGZzMjAgcHJldmlvdXNs eSByZXBvcnRlZCBzbWFsbCB mc0vydMX9vDUvUHNlR6GhFV Pks73mWSHyat7xxYBisyatM JYnUZZly68jZVIllpWkooMv I4LcxaUrI6nccvouxbRlxiO hrXDulixyWs7qEAactnZqo7 J8LNjtBY85GJAteHkuKQHrc oDntmPqN7OuGZXuT66oH3Np hLokhv6hB6rzxttbYRU4ckY kNhCoUYHvXRHxlu8pfCpnbh eifZcrt8egZLAavHWccOXav nJvciBccGFyfQ== [employer] Work Phone: Disclaimer w9ezlABoONGhaQTiMnHb MDA cLNAcb0ftEQLshATdMgXcTu NcZnRuYmpcdWMxXGRlZmYwe 9pqc173yJLlk8yyRWKaJrQ2 gAXsCDIfV21cWSSUS206XCA rFRqnn3fjn7JrJYLnwRJez5 F3UNQFQJfiLHBSYIm4zKyvE 33pj1P3GvwpB3ydDVSeRZIe M9XoSB0sJYGdCtd3PQR6JLV 6PVOrBGVmN9NnNN1pZJUbwS JoIMs4k9molGldYNInZDI6k 5hoEWknfpVtLB3lns2klFg8 c2drxzQrWOZzBCZocIWLNMD wZ6DwkFqnJi0ijLx6vNwkBm aaILS0Peb4CP7gym68son4n AyeWHXyddbeRzO3HChxUCLo hxidLKv9CZipUGWyxSU6KLJ kjVYsJ6PcEMRyLF8ipvz3JZ R4TSldNRGzBdJ8VRJhhEUhE CKegMbeVZhvz117EFO8UeOk OU7rA5Qde5Z9lH6xiQHoTMH muQZeThPzUGBolq2rrTXhFM ghh0QlPNQ2unI5pCVlqAGgH UTcHO30Rqopl7NoQlwfGVW2 LYDcgwZzy3Tbw1gnIgLijqA zS6kuS1EcAKUpZZJfLGFyPy CnsaCya8Qkk1TtrGNatKm8v 9lbBFVwXGYamGdvp8mlPSK1 XETiL2Q5pTAxf7esXPfkZSH zeRM1wsL2HCVsdLFsW4QnjC 8tFZDeXR7qirc4w6opRKE6F CwbCTRgYcK3ksU7GKIatIZq ZVPblEvtHAhhj767OOE2NlJ vCRXyg1EiS7CcjYtvX18phH ieW55cUDVpnMpjkR7xdWmxz H1mMvFcDsLjTOohpTuvdJOk stpyMYesmqT1ZUylczxfEEN xPDyuB2obBdLfYEVisByfWM ftn6YbOQSsWYClOPCaPEgmO 7ozqL1idufeEYraEAHkkXsm m5lwTeLfwZK9AP8byvGyHUZ oeIwkfgN5fyJzcEryqJ3zxQ 0scGykwD6pjPSnfFU9thayC GluIHNpdHUgaHlicmlkaXph qWxvtklthB7qBVS4bPQkHLU 0uXSeQMFzTXTnWPGgiU23qe 3rdQRjonOdR0IdR8KpcTDus RgaRfvcwJXjnEGrPt0fvJDs QJ7wRLXikJGkC9MfZV4rSIM hclxwYXIgVGhlIHVzZSBvZi VeglQve7ZcqF4gXDHgHBHfS N34jhUujsW1fDXaSZZmnlYg dGVzdHMgaXMgcmVndWxhdGV fHJNkFOBkQMElMZl8fPPdy6 NrN8hdrOWkqjUzJ7SdrQZsE LDKIK7cOInpg9PehPKsgQAi g0XuQPSuNGWakD6kSGTcVI9 rPUVuURebONFgofIpln9evv CrQJLgIXViG7MgmdjiwOuzm hVoNIDrzr8bnoWsUUQ4RYNb ZSBjbGluaWNhbCBsYWJvcmF 6j1UkDGOre5QxS5FvpSLiHV NxoIQySGV2e2MtgM6cRMkak CBsXVTaJT3cdHMqYHQpNYHe ZWFyZWQgYnkgdGhlIFVTIEZ rp3BqYF7iYUYbaXjxJQSsyP 7wb3RgZTLes73mXBTJWHtoA FRoZSBGREEgaGFzIGRldGVy bWluZWQgdGhhdCBzdWNoIGN hYAOaFB6vOULmmmJvwJYdq3 PihPNafsByl9JtyqXzUJVkB XC0YeSaoOGyHJPucqKVyUxh pF4emW7ri6IbsK3cCDqjafG yoBFgNx3cjCJmII2sHHMwkh FmZmluIGVtYmVkZGVkIHRpc 2L6LK9bTHSejz8mqvkadPJd lD4dfMUlenZbQL2vID8fP9S 0qOGlNDOxpgNdz6dnBIj7eZ BdFFEbdZGtnTGvMjgwLBN0E AHhMYK2rzFintEdAHZpnUag hSW9gVSsJVFsDFDgPEDhSC0 2W4Nqq8LuR7dwHA01AVZmGW UmDRJxxbFpx2guUMSnr8jiS WDpsPGzV1DmVJBsuOEbtkbe OtBnTBR5EXUeYUA5nQCrFPY gU1TfaEWzsGIibV96IZ8tyY I3LV1cYTV7QPhgwT1nEsKRl M64hz8iiEG9g7WqQE0cO5Rj VABkj6R5shNnNFDzCI4apUE iZWVuIHZhbGlkYXRlZCBvbi QeFNUrmYHnEuucOTH6uCDex EYeCiGUBGX0cRMtLZFae6Fq ZCBiZSBpbnRlcnByZXRlZCB 6cMAaXSDywZNyi94lC3q3ES 4abDofCQSewKUbEWSar9Gow AHadXm1fZHcYcXfZExqANIz MFrzeTz3cRI1PS2wVVAqV8U sZ7ygmJJjHROsGHIjyIGpfi 5ccGFyfQ== [facility] Work Phone: Gross Description g9eunOIbJWDmaEZzSMKi NVx xwnMpRPEwzGRfZ2JoobemUJ zfTR2vMH8oiAobgRHfpPUfV ZTyCtNhp2osc046wLTzk5tz DNEOZHdzPCXUQDu1iVhqW56 mx5L7IhujG44frFWwPKT5NQ KcPPRupSLbFBHpSOS7UGSyk VDeH9tfZMBqHU9ajpcoKQme JUqdEYYxcFT5IPDmpCSsP2V qIHQzHXxgNZZntey9EvEfAa 9vdGVyeTcyMFxwYXJkXHBsY SonJNAaBnLjMQ0enLNsATSh Y9BtgxToRBeyBOYuob5muPo uIGxhYmVsZWQgImFwcGVuZG e1EqRduuAdQMyiN79igY0zo SXpO7PoYUKvuVHhDFu4JSKi tbamsdiqQF06SACdAwZbfOJ yrzDfvVOkZYVhaz4mGTl2BW sfGUEhFlGdhUivNG5cWXNiE GYpiFZ2WBkfvVkyZkXwNVtf NIMko6mseKAgOE7wswbzucY klwAxlyfkLJAgzWVfkl9xKD GqXKMhBR9dvD9xvmpzn1Fil 8RbZYqiIOVvhw3rcN3jRUHi oV7bsCmkDY7yGQnegYX2BT2 sgqrtZWCRRJMkc6CuiVdixo PvecAvx5Dfn0Ukbl9GDGHbE ZDxnrGyrAd5CLRgYRI0iO6j ziLtsAUrfEF1JZHxbG3vm47 nFQAfz3NfpPTsKrpeLXVntT FyIEIuXHRhYiBSZWNlaXZlZ SQbzvZge2IyRAgyrzWnOMRw mTXvPDElsTRujBGzu8nzyFS yROh8rxNlLvEwzeXpQZI3JK BhARtgZEbqpwn2wTEbPEvtS K03YD6oVXAbKEqdEKQhr4Sw HQTcrqueovhcVM03KXMhRzG ebTKynuKotTNwIETxxv6yYB XwVKAbQQhtEDJzr9dqitQvb TTwvhZdyeV3oEUtEVFaqOOu fvzyAG1yp4VkqRZ8C9Xzy09 gdGhhdCBpcyAxIGNtIGZyb2 1ko94iPU7mICVlWVWxeKBik DBnRYSwk4NhgFtgnfYnFSHt wK0aZxQzLPpuTLNfc5EqINo dXEKue2CqMY97LCXoBOUZfR I7QHL8KNHuJVEcnMFyJ7ghO DxvHMYvp4qjpfM6NCGpzUKg O1uwBEErGPMvUpPcP03hKkH lnZRsVFCyE4Thz77epHXzA7 tgPHDur4kgnmY4MPLjDpOot uZzLRDbInX5JVXvI68pKTVr HOJtPuGvLL5fXRIxgYMqh8D gyaB7nMKoRPV4jGPaFKVdSD NryldrfTqubT0nq0ttuPJbq 5W8eHNyVXEiRgAogU5mFFDm JrJmxDFkxrZiXW7mALJ7lSn izLkeM9cxYTNiGPNjxmQrdn U5yI2aHCnhXXZjRVKeosGbY OJyMANecxFtkQ6twCovMPxs rBYypK2dxUUvnarqoG5pq5r oqFZncCQ2ou4yBP5gHu1uKX QcRGOoTK1qrM9utehwx7Psa RoqZJExpz0lGNLvqhXieT4t FBIvCJhfAmvahr53hEWqTMf pdGggbXVsdGlwbGUgYWRkaX Ats95dcHAmhnUukkTfClJhN Jihq3rjvv9qEDUvbDGxp6Ag uWU0qZNyOGJcR9Jtw68fBJN rHLGjiWUjaZX6WADdPPNbdL KjXDYfrlRNLETcDIZ8FKYYk J5kQWD4CdJtPuBmLLRGIOKy Y1Ezb11npGIiO5wiTVImi3i dbfQ2LBFsMLBwRE2aLgDiBG ruOYNEZpUwGIRqr1PyeFsuy eCxLNBzeA4iDJCpbYayLBFj DGWHRJasofAgWWEzFP6pYSD vROS6NJ7pLsKpzgBqBM47ND BbwsIdq7AnrXmgxmXmz7Rwh KSiutIcdpF2qZGpZFptOTSs FFQaTAwjZSRgq4BgXXqbXAL rjGBeAB81TTKtZJe4o9QyOl 1bPVE5WO5qJLEwWDRtBaNgK LRsf7JskFzkzzImYQDuETrd bSTwrQ4zrCQwedrcyG0ed1q huNgdkDG3su4eLS4sCb0lRX B5WK6eCUMsYRXoLqVysASbd 9HsfqynkP0oe7rnpZCse4L8 dXJlIGRlZmVjdCBuZWFyIG1 jhywgizWrYQFwX08bfWDbMW OyDFIWAn7XEGViYKKnGHn4p F1wVJloz8CdeCkqadBzn1Pd o54mwKzrGn24SFedx1w4iGM msSUut6NwUCDmDUZyBJ5npp JcUYshJqApGWKns1LsCOXda DHeMEKhccNXWba4EBJgElEk NRf3VHPjcX4gSh4ybKJgyC4 gbGFiZWxlZCAicmVjdGFsIH Q6vH8iNXAfCTVkplBubD6al 0HiKjSjcH0nxtTrQIXoKPD3 xpBipiEkqH7sc3ToRlBuqT8 qtpDtWoelNA3cBINiCoOtcP EklaVjxTDcDEUlpa9rKVHvE AYwpIZve6GcaBAndEEpISAq r9hsDZUvNWZ3otMphGBao1C ibGUuICBBbHNvIHByZXNlbn FzbM5cnZdlCSQffnGdnO9rp oMpgpAuysM7NjImQ62dyS5i vRRpG7OdSRRnT64tzvEfz3F xGw10FMqxhiAhC0yoZeKbNT ViT28irN3gQIgwrZD3PMZnP ABLFGWnW0DuvASruSCldTCz jDcnAAIfwaGhvdZkOY06BZZ 8GI5sZPHmpdLrMANpgDfzIA PdBUZpJVVjzV1yCTJvlzDxW FZ7OIvhLSqwXAkoXODbiWXc bGUgbGluZSBpcyBwcmVzZW5 2EFF0RHOyUUGmrFMpl3fuZu BlbmQgZGVzaWduYXRlZCBtY YTggT7nFa2tEYCzKJVxGSGn l6IsiLIrZargsx77aOSsNKM QmRXok4ZaBQrgWlXdQHOgI1 Muq98agJWvY1ymJDOuv6xuo wD0VYObXejfXASzWElsnHho c0LkdQ2iVKVmGKGgcPTyr7W gPoevcUF9UFQddQWfKZheIQ VpCKN8PITyJXVueRZlpgQqZ B1uNKqlgV6hikwpS9XjXR5h YQMnXjCvn7frPTZgw8JwtGR hTXEoNHJgf6JkiOcdfuYelq FmOEFuaBGkhKQdnO27ypPyu 7CnCVn8AKS6NY6qHExrkEzl qUfkZ5fvJBHtNAUucteezdO rFmEzQB26UZQcNlXrIRviZB 39G29xIESeovQhiL4jLIOsq jP8dRVwTNHnlT9cl2woiRNd abZweTFhMOMdHEx0UDZ7pAF 3oIQwBTL3diUnkFGjKVKqYi ObL81wFlJwpOMxYFHxB2Uqh 72yzGLzW3lnDIAjr8mafcU8 UWMxDO5bLT59zVFgcPmcHYO eWPr0sG2nZUmnXDo1FEL8rP R2kGUaGMW1bzGemQLuICRjG LCbYEJhKLHknuBjiExbv3Nt fY78nX3dNOIfjQVlw6QbyAU 6iYTbUCVsH9Jlk69pFKHqJW MbvXNpvHQ9GWMmPEmcUAMit JOmCQTtl8YagLInDFV6vM9i kbl3DPDYBXXtSZEudJOan2J heZJ3aCBxXWXnA8Riy61kHS 9nSZXsXYA4q85bzBctBGKgi mdzLiAgQzIgLSBUaXNzdWUg FHTjDXPsjkQmjT2ba6IowVq vIDXcPABwC2Xas53zwEOmO1 czKVbjijExGTMjWO7kSVRdF I1yJB0hv4jvxLZwrqHwjZRl FCMqRMe4HOK5bOT6jJNmGSV 9tzIklUXfAANhYBTqXNS0NY QmEHZruaBwFQY1uB1eTW3dc xhbqe0sLRH7IR0zSYw9XES1 qCP8hDKdQJN3fvZfyJJoYER we5o4gVEbj7QmcHZeMYKqZY Ein7KpsBkertIrwNNayazdc tYdxVUzyTKgEZLhc0WkcWav nwTzSBQuvZ7yHJBKRXDnZJM tGLt7aE3hENyrQOi9TOC5lQ I9dXXdAGI4lrKlmVYzKREbX CAgICBccGFyfQ== [employer] Work Phone: Pathologist Interpretation Location [facility], [address] [place] [address], [facility] [address], CLIA: [id number]; Joint Commission: [id number] [id number]; CAP: [id number] [email or web address] Phone: Pathology report final diagnosis Narrative z3gmfWXxDNCpzDGbARIlHPx tybBaORRtkQQqY5UwzvctLO vnOM4sTQ6znElfxNHigWLjA VZrAlMjz6tqf521rLQzh3oh NVWEFHsmMBNTSCb8sXoaW42 ap0C5PlbhY05adTBdLXU8RI UaVDFioAWaNLUnNYN3HOKhl ZZzF2udUCGqIT6znunsMJpl VEtjBOYbeED9HXRqoDYlJ7L dQYNlIGexAETvadl7YmBzTr 9vdGVyeTcyMFxwYXJkXHBsY FzeKXHfSbEwBE9iQEBRLWBD UHpFJLMCOICOJdOTV9MTQFr 6XHBhciAtQkVOSUdOIEFQUE VORElYIFdJVEggTUlMRCBGS RXSL8SPTbEFJsPvEOIBSZFI Q74HKJCtlqfeMUGdSy9hQDT PBHqOPCXVE8TUBSpUAzLEIZ 9nFBJDF6MGAHnOMlzfrTCfS E9YELCMXYGSQ5oLKNUSKJEQ AVPCI6YBM4RuRu8NOOJWRN7 KARXOVFMFQ2sOTMYhPDVSUF CFGI8CCezbLV8TOQPTTCMIZ PLTYLGYWP0VFSKeKU4XFETX FX2QABWLEvEEC36gId5NCKY JZXPSWJUGBLnWNpouRC3CTY CNW3RTWLAKPNLGHgoGJ9BMI 05ccGFyXHBhciBDLiAgUkVD DJMUSTYKNN5PENERPMSQJvL OOM7EX7AMOxYJLX5FGhbkJs MWQPCGTL6DMmfcBDOzMLOPW uDUWQxGOWjOG6lKSMVGSEhN G2zFNbBvVYUVOBLTONcLBHC XZ6SBLEGRYbXmB4jQS65CLy DRQeLHDM7QMLGUJ07riZJeT G8BFkQNIADPY2FXFMFpAK0L O0YNWA3VUUZaUirLG3PcsOI yXHBhcn0= [facility] Work Phone: Comment on above: Corrected result: Pr eviously reported on 02/14/2024 at 1216 EDT. [facility] Work Phone: Progress Noteon 02-14-2024 Progress [facility] Progress Note [facility] CARECOORDon 02-13-2024 CARECOORD Normal [facility] CBC (HEMOGRAM)on 02-13-2024 Erythrocyte distribution width (RBC) [Ratio] 18.8 % High 11.5-15.0 [facility] Comment on above: Performed By: #### L [id number] ####Chief Information Officer: FREDRICK KHAN ([id number])[facility] (SBAB)[address] [place] [address] Hematocrit (Bld) [Volume fraction] 24.5 % Low 35.0-47.0 [facility] Comment on above: Performed By: #### L [id number] ####Chief Information Officer: FREDRICK KHAN ([id number])[facility] (SBAB)[address] [place] [address] Hemoglobin (Bld) [Mass/Vol] 7.6 g/dL Low 11.7-16.0 [facility] Comment on above: Performed By: #### L [id number] ####Chief Information Officer: FREDRICK KHAN ([id number])[facility] ([facility])[address] [place] [address] MCH (RBC) [Entitic mass] 24.4 pg Low 26.0-34.0 [facility] Comment on above: Performed By: #### L [id number] ####Chief Information Officer: FREDRICK KHAN ([id number])[facility] (SBHLAB)[address] [place] [address] MCHC 31.0 % Normal 30.5-36.0 [facility] Comment on above: Performed By: #### L [id number] ####Chief Information Officer: FREDRICK KHAN ([id number])[facility] (SBAB)[address] [place] [address] MCV (RBC) [Entitic vol] 78.8 fL Normal 77.0-99.0 [facility] Comment on above: Performed By: #### L [id number] ####Chief Information Officer: FREDRICK KHAN ([id number])[facility] [place] (SBHLAB)[address] Platelet mean volume (Bld) [Entitic vol] 9.4 fL Normal 9.0-12.7 [facility] Comment on above: Performed By: #### L [id number] ####Chief Information Officer: FREDRICK KHAN ([id number])[facility] (SBHLAB)[address] Platelets (Bld) [#/Vol] 396 10*3/uL Normal 140-440 [facility] Comment on above: Performed By: #### L [id number] ####Chief Information Officer: FREDRICK KHAN ([id number])[facility] (SBHLAB)[address] RBC (Bld) [#/Vol] 3.11 10*6/uL Low 3.80-5.20 [facility] Comment on above: Performed By: #### L [id number] ####Chief Information Officer: FREDRICK KHAN ([id number])[facility] (SBHLAB)[address] [place] [address] WBC (Bld) [#/Vol] 9.5 10*3/uL Normal 3.6-10.7 [facility] Comment on above: Performed By: #### L [id number] ####Chief Information Officer: FREDRICK KHAN ([id number])[facility] (SBHLAB)[address] CBC panel Auto (Bld)on 02-12 Erythrocyte distribution width (RBC) [Ratio] 18.8 % High 11.5 - 15.0 % [facility] Hematocrit (Bld) [Volume fraction] 24.5 % Low 35.0 - 47.0 % [facility] Hemoglobin (Bld) [Mass/Vol] 7.6 g/dL Low 11.7 - 16.0 g/dL [facility] Interpretation and review of laboratory results Abnormal [facility] MCH (RBC) [Entitic mass] 24.4 pg Low 26.0 - 34.0 pg [facility] MCHC (RBC) [Mass/Vol] 31.0 % 30.5 - 36.0 % [facility] MCV (RBC) [Entitic vol] 78.8 fL 77.0 - 99.0 fL [facility] Platelet mean volume (Bld) [Entitic vol] 9.4 fL 9.0 - 12.7 fL [facility] Platelets (Bld) [#/Vol] 396 10*3/uL 140 - 440 10*3/uL [facility] RBC (Bld) [#/Vol] 3.11 10*6/uL Low 3.80 - 5.2 0 10*6/uL [facility] WBC (Bld) [#/Vol] 9.5 10*3/uL 3.6 - 10.7 10*3/uL [facility] COMPREHENSIVE METABOLIC PANE [place] 02-13-2024 Albumin [Mass/Vol] 3.2 g/dL Low 3.5-5.0 [facility] Comment on above: Performed By: #### L AB17 ####Chief Information Officer: FREDRICK KHAN ([id number])[facility] ALP [Catalytic activity/Vol] 77 U/L Normal 38-126 [facility] Comment on above: Performed By: #### L AB17 ####Chief Information Officer: FREDRICK KHAN ([id number])[facility] (SBHLAB)[address] ALT [Catalytic activity/Vol] 11 U/L Normal 0-34 [facility] Comment on above: Performed By: #### L AB17 ####Chief Information Officer: FREDRICK KHAN ([id number])[facility] (SBHLAB)[address] Anion gap [Moles/Vol] 6 mmol/L Normal 3-13 [facility] Comment on above: Performed By: #### L AB17 ####Chief Information Officer: FREDRICK KHAN ([id number])[facility] [place] (SBHLAB)[address] AST [Catalytic activity/Vol] 20 U/L Normal 15-46 [facility] Comment on above: Performed By: #### L AB17 ####Chief Information Officer: FREDRICK KHAN ([id number])[facility] (SBHLAB)[address] Bilirubin [Mass/Vol] 0.7 mg/dL Normal 0.2-1.3 [facility] Comment on above: Performed By: #### L AB17 ####Chief Information Officer: FREDRICK KHAN ([id number])[facility] (SB[facility]AB)[address] Calcium [Mass/Vol] 8.5 mg/dL Normal 8.4-10.4 [facility] Comment on above: Performed By: #### L AB17 ####Chief Information Officer: FREDRICK KHAN ([id number])[facility] (SBHLAB)[address] Chloride [Moles/Vol] 98 mmol/L Normal 98-107 [facility] Comment on above: Performed By: #### L AB17 ####Chief Information Officer: FREDRICK KHAN ([id number])[facility] (SBHLAB)[address] [place] [address] [place] CO2 [Moles/Vol] 28 mmol/L Normal 22-30 [facility] Comment on above: Performed By: #### L AB17 ####Chief Information Officer: FREDRICK KHAN ([id number])[facility] (SB[facility]AB)[address] Creatinine [Mass/Vol] 0.56 mg/dL Normal 0.52-1.04 [facility] Comment on above: Performed By: #### L AB17 ####Chief Information Officer: FREDRICK KHAN ([id number])[facility]ENTERMaik [facility]SONPRES[facility] (SBHLAB)[address] GLOMERULAR FILTRATION RATE ML/MIN/1.73 SQ M.PREDICTED >90.0 Normal >60.0 [facility] Comment on above: Result Comment: Calc ulation based on the Chronic Kidney Disease Epidemiology Collaboration (CKD-EPI) equation refit without adjustment for race Performed By: #### L AB17 ####Chief Information Officer: FREDRICK KHAN ([id number])[facility] (SBHLAB)[address] Glucose [Mass/Vol] 89 mg/dL Normal 70-100 [facility] Comment on above: Performed By: #### L AB17 ####Chief Information Officer: FREDRICK KHAN ([id number])[facility] (HLAB)[address] Potassium [Moles/Vol] 4.0 mmol/L Normal 3.5-5.1 [facility] Comment on above: Performed By: #### L AB17 ####Chief Information Officer: FREDRICK KHAN ([id number])[facility] (HLAB)[address] Protein [Mass/Vol] 6.3 g/dL Normal 6.3-8.2 [facility] Comment on above: Performed By: #### L AB17 ####Chief Information Officer: FREDRICK KHAN ([id number])[facility] (SBHLAB)[address] [place] [address] [place] Sodium [Moles/Vol] 132 mmol/L Low 135-145 [facility] Comment on above: Performed By: #### L AB17 ####Chief Information Officer: FREDRICK KHAN ([id number])[facility] (HLAB)[address] [place] [address] [place] Urea nitrogen [Mass/Vol] 9 mg/dL Normal 7-17 [facility] Comment on above: Performed By: #### L AB17 ####Chief Information Officer: FREDRICK KHAN ([id number])[facility]ENTERMaik KHOUR[facility] (SBHLAB)[address] Comprehensive metabolic 1998 panelon 02-13-2024 Albumin [Mass/Vol] 3.2 g/dL Low 3.5 - 5.0 g/dL [facility] ALP [Catalytic activity/Vol] 77 U/L 38 - 126 U/L [facility] ALT [Catalytic activity/Vol] 11 U/L 0 - 34 U/L [facility] Anion gap [Moles/Vol] 6 mmol/L 3 - 13 mmol/L [facility] AST [Catalytic activity/Vol] 20 U/L 15 - 46 U/L [facility] Bilirubin [Mass/Vol] 0.7 mg/dL 0.2 - 1 .3 mg/dL [facility] Calcium [Mass/Vol] 8.5 mg/dL 8.4 - 10. 4 mg/dL [facility] Chloride [Moles/Vol] 98 mmol/L 98 - 10 7 mmol/L [facility] CO2 [Moles/Vol] 28 mmol/L 22 - 30 mmol/L [facility] Creatinine [Mass/Vol] 0.56 mg/dL 0.52 - 1.04 mg/dL [facility] GFR/1.73 sq M.predicted MDRD (S/P/Bld) [Vol rate/Area] - PINF [facility] Comment on above: Calculation based on the Chronic Kidney Disease Epidemiology Collaboration (CKD-EPI) equation refit without adjustment for race Glucose [Mass/Vol] 89 mg/dL 70 - 100 mg/dL [facility] Interpretation and review of laboratory results Abnormal [facility] Potassium [Moles/Vol] 4.0 mmol/L 3.5 - 5.1 mmol/L [facility] Protein [Mass/Vol] 6.3 g/dL 6.3 - 8.2 g/dL [facility] Sodium [Moles/Vol] 132 mmol/L Low 135 - 145 mmol/L [facility] Urea nitrogen [Mass/Vol] 9 mg/dL 7 - 17 mg/dL [facility] IDNon 02-13-2024 IDN Normal [facility] IDN Normal [facility] Progress Noteon 02-13-2024 Progress Note [facility] Progress [facility] Normal [facility] Progress [facility] Normal [facility] Progress Note Pt refused to be pok e, tried getting blood on IV for morning labs but could not draw blood. Dr Jorgensen notified via secure chat. Normal [facility] CBC (HEMOGRAM)on 02-12-2024 Erythrocyte distribution width (RBC) [Ratio] 19.2 % High 11.5-15.0 [facility] Comment on above: Performed By: #### L [id number] ####Chief Information Officer: FREDRICK KHAN ([id number])[facility] (SBHLAB)[address] Hematocrit (Bld) [Volume fraction] 24.6 % Low 35.0-47.0 [facility] Comment on above: Performed By: #### L AB294 ####Chief Information Officer: FREDRICK KHAN ([id number])[facility] (SBHLAB)[address] Hemoglobin (Bld) [Mass/Vol] 7.7 g/dL Low 11.7-16.0 [facility] Comment on above: Performed By: #### L AB294 ####Chief Information Officer: FREDRICK KHAN ([id number])[facility] (SBHLAB)[address] MCH (RBC) [Entitic mass] 24.7 pg Low 26.0-34.0 [facility] Comment on above: Performed By: #### L AB294 ####Chief Information Officer: FREDRICK KHAN ([id number])[facility] (SBHLAB)[address] MCHC 31.3 % Normal 30.5-36.0 [facility] Comment on above: Performed By: #### L [id number] ####Chief Information Officer: FREDRICK KHAN ([id number])[facility] (SBHLAB)[address] MCV (RBC) [Entitic vol] 78.8 fL Normal 77.0-99.0 S [facility] Comment on above: Performed By: #### L AB294 ####Chief Information Officer: FREDRICK KHAN ([id number])[facility] CENTER[facility]ik HINSONTRINYN (SBHLAB)[address] Platelet mean volume (Bld) [Entitic vol] 9.6 fL Normal 9.0-12.7 [facility] Comment on above: Performed By: #### L AB294 ####Chief Information Officer: FREDRICK KHAN ([id number])[facility] CENTERMaik HINSONPRESBYTERIAN SANT[facility]ERN (SBHLAB)[address] Platelets (Bld) [#/Vol] 305 10*3/uL Normal 140-440 [facility] Comment on above: Performed By: #### L AB294 ####Chief Information Officer: FREDRICK KHAN ([id number])[facility] CENTERMaik BARBPRESBYTERIAN SANTA FE MEDICAL CENTERN (SBHLAB)[address] RBC (Bld) [#/Vol] 3.12 10*6/uL Low 3.80-5.20 [facility] Comment on above: Performed By: #### L AB294 ####Chief Information Officer: FREDRICK KHAN ([id number])[facility]ENTERA BARBPRESBYTERIAN S[facility]ERN (SBHLAB)[address] WBC (Bld) [#/Vol] 11.5 10*3/uL High 3.6-10.7 [facility] Comment on above: Performed By: #### L AB294 ####Chief Information Officer: FREDRICK KHAN ([id number])[facility]ENTERA [facility] (SB[facility]AB)[address] CBC panel Auto (Bld)on 02-11 Erythrocyte distribution width (RBC) [Ratio] 19.2 % High 11.5 - 15.0 % [facility] Hematocrit (Bld) [Volume fraction] 24.6 % Low 35.0 - 47.0 % [facility] Hemoglobin (Bld) [Mass/Vol] 7.7 g/dL Low 11.7 - 16.0 g/dL [facility] Interpretation and review of laboratory results Abnormal [facility] MCH (RBC) [Entitic mass] 24.7 pg Low 26.0 - 34.0 pg [facility] MCHC (RBC) [Mass/Vol] 31.3 % 30.5 - 36.0 % [facility] MCV (RBC) [Entitic vol] 78.8 fL 77.0 - 99.0 fL [facility] Platelet mean volume (Bld) [Entitic vol] 9.6 fL 9.0 - 12.7 fL [facility] Platelets (Bld) [#/Vol] 305 10*3/uL 140 - 440 10*3/uL [facility] RBC (Bld) [#/Vol] 3.12 10*6/uL Low 3.80 - 5.2 0 10*6/uL [facility] WBC (Bld) [#/Vol] 11.5 10*3/uL High 3.6 - 10.7 10*3/uL [facility] COMPREHENSIVE METABOLIC PANE Miles 02-12-2024 Albumin [Mass/Vol] 3.0 g/dL Low 3.5-5.0 [facility] Comment on above: Performed By: #### L AB17 ####Chief Information Officer: FREDRICK KHAN ([id number])[facility] ALP [Catalytic activity/Vol] 55 U/L Normal 38-126 [facility] Comment on above: Performed By: #### L AB17 ####Chief Information Officer: FREDRICK KHAN ([id number])[facility] (SBHLAB)[address] ALT [Catalytic activity/Vol] 10 U/L Normal 0-34 [facility] Comment on above: Performed By: #### L AB17 ####Chief Information Officer: FREDRICK KHAN ([id number])[facility] Anion gap [Moles/Vol] 6 mmol/L Normal 3-13 [facility] Comment on above: Performed By: #### L AB17 ####Chief Information Officer: FREDRICK KHAN ([id number])[facility] [place] (SBHLAB)[address] AST [Catalytic activity/Vol] 23 U/L Normal 15-46 [facility] Comment on above: Performed By: #### L AB17 ####Chief Information Officer: FREDRICK KHAN ([id number])[facility] [place] (SBHLAB)[address] Bilirubin [Mass/Vol] 0.5 mg/dL Normal 0.2-1.3 [facility] Comment on above: Performed By: #### L AB17 ####Chief Information Officer: FREDRICK KHAN ([id number])[facility]ENTERA BARBPRESBYTERIAN SANT[facility]ENTERN (SBHLAB)[address] Calcium [Mass/Vol] 8.7 mg/dL Normal 8.4-10.4 [facility] Comment on above: Performed By: #### L AB17 ####Chief Information Officer: FREDRICK KHAN ([id number])[facility]ENTERA [place] (SBHLAB)155 [place] [address] [place] Chloride [Moles/Vol] 100 mmol/L Normal 98-107 [facility] Comment on above: Performed By: #### L AB17 ####Chief Information Officer: FREDRICK KHAN ([id number])[facility]A [place] (SBHLAB)155 [place] [address] [place] CO2 [Moles/Vol] 31 mmol/L High 22-30 [facility] Comment on above: Performed By: #### L AB17 ####Chief Information Officer: FREDRICK KHAN ([id number])[facility] [place] (SBHLAB)155 [place] [address] [place] Creatinine [Mass/Vol] 0.68 mg/dL Normal 0.52-1.04 [facility] Comment on above: Performed By: #### L AB17 ####Chief Information Officer: FREDRICK KHAN ([id number])[facility]A [place] (SBHLAB)[address] GLOMERULAR FILTRATION RATE ML/MIN/1.73 SQ M.PREDICTED >90.0 Normal >60.0 [facility] Comment on above: Result Comment: Calc ulation based on the Chronic Kidney Disease Epidemiology Collaboration (CKD-EPI) equation refit without adjustment for race Performed By: #### L AB17 ####Chief Information Officer: FREDRICK KHAN ([id number])[facility] [place] (SBHLAB)[address] Glucose [Mass/Vol] 110 mg/dL High 70-100 [facility] Comment on above: Performed By: #### L AB17 ####Chief Information Officer: FREDRICK KHAN ([id number])[facility]ENTERA [facility]BPRESBYTERIAN S[facility] (SBHLAB)[address] Potassium [Moles/Vol] 4.3 mmol/L Normal 3.5-5.1 [facility] Comment on above: Performed By: #### L AB17 ####Chief Information Officer: FREDRICK KHAN ([id number])[facility] [place] (SBHLAB)[address] Protein [Mass/Vol] 5.7 g/dL Low 6.3-8.2 [facility] Comment on above: Performed By: #### L AB17 ####Chief Information Officer: FREDRICK KHAN ([id number])[facility]ENTERA BARBTRINYN (SBHLAB)155 [place] [address] [place] Sodium [Moles/Vol] 137 mmol/L Normal 135-145 [facility] Comment on above: Performed By: #### L AB17 ####Chief Information Officer: FREDRICK KHAN ([id number])[facility] [place] (SBHLAB)[address] Urea nitrogen [Mass/Vol] 16 mg/dL Normal 7-17 [facility] Comment on above: Performed By: #### L AB17 ####Chief Information Officer: FREDRICK KHAN ([id number])[facility] ([facility])[address] Comprehensive metabolic 1998 panelon 02-12-2024 Albumin [Mass/Vol] 3.0 g/dL Low 3.5 - 5.0 g/dL [facility] ALP [Catalytic activity/Vol] 55 U/L 38 - 126 U/L [facility] ALT [Catalytic activity/Vol] 10 U/L 0 - 34 U/L [facility] Anion gap [Moles/Vol] 6 mmol/L 3 - 13 mmol/L [facility] AST [Catalytic activity/Vol] 23 U/L 15 - 46 U/L [facility] Bilirubin [Mass/Vol] 0.5 mg/dL 0.2 - 1 .3 mg/dL [facility] Calcium [Mass/Vol] 8.7 mg/dL 8.4 - 10. 4 mg/dL [facility] Chloride [Moles/Vol] 100 mmol/L 98 - 10 7 mmol/L [facility] CO2 [Moles/Vol] 31 mmol/L High 22 - 30 mmol/L [facility] Creatinine [Mass/Vol] 0.68 mg/dL 0.52 - 1.04 mg/dL [facility] GFR/1.73 sq M.predicted MDRD (S/P/Bld) [Vol rate/Area] - PINF [facility] Comment on above: Calculation based on the Chronic Kidney Disease Epidemiology Collaboration (CKD-EPI) equation refit without adjustment for race Glucose [Mass/Vol] 110 mg/dL High 70 - 100 mg/dL [facility] Interpretation and review of laboratory results Abnormal [facility] Potassium [Moles/Vol] 4.3 mmol/L 3.5 - 5.1 mmol/L [facility] Protein [Mass/Vol] 5.7 g/dL Low 6.3 - 8.2 g/dL [facility] Sodium [Moles/Vol] 137 mmol/L 135 - 145 mmol/L [facility] Urea nitrogen [Mass/Vol] 16 mg/dL 7 - 17 mg/dL [facility] Progress Noteon 02-12-2024 Progress Note Normal [facility] Progress Note Patient has purple ecchymotic areas on her chest and arms. Patient is requesting a doctor to see her. ELYSE Fernández notified Normal [facility] Progress [facility] Lopez added t o the bladder scan message sent at 1422 Normal [facility] Progress Note Patient voided 150 m l, then was bladder scanned for [address] Dat Wayne notified via secure message and asked for straight cath PRN order Normal [facility] Progress Note Patient says she fee ls better since the tube is out Normal [facility] Progress Note Patient complains of left ear pain. ELYSE Fernández notified via secure message Normal [facility] Progress Note Patient says unable to void. Bladder scanned for [address] Dat Wayne notified via secure message [facility] Progress Note Normal [facility] BASIC METABOLIC PANELon 05-2 Anion gap [Moles/Vol] 3 mmol/L Normal 3-13 [facility] Comment on above: Performed By: #### L AB15 ####Chief Information Officer: FREDRICK KHAN ([id number])[facility] ([facility])[address] Calcium [Mass/Vol] 8.6 mg/dL Normal 8.4-10.4 [facility] Comment on above: Performed By: #### L AB15 ####Chief Information Officer: FREDRICK KHAN ([id number])[facility] Chloride [Moles/Vol] 105 mmol/L Normal 98-107 [facility] Comment on above: Performed By: #### L AB15 ####Chief Information Officer: FREDRICK KHAN ([id number])[facility] (SBHLAB)155 [place] [address] [place] CO2 [Moles/Vol] 26 mmol/L Normal 22-30 [facility] Comment on above: Performed By: #### L AB15 ####Chief Information Officer: FREDRICK KHAN ([id number])[facility] (SBHLAB)[address] Creatinine [Mass/Vol] 0.59 mg/dL Normal 0.52-1.04 [facility] Comment on above: Performed By: #### L AB15 ####Chief Information Officer: FREDRICK KHAN ([id number])[facility] CENTERMaik [facility]BJUST[facility] (SBHLAB)[address] GLOMERULAR FILTRATION RATE ML/MIN/1.73 SQ M.PREDICTED >90.0 Normal >60.0 [facility] Comment on above: Result Comment: Calc ulation based on the Chronic Kidney Disease Epidemiology Collaboration (CKD-EPI) equation refit without adjustment for race Performed By: #### L AB15 ####Chief Information Officer: FREDRICK KHAN ([id number])[facility] [place] (SB[facility])[address] Glucose [Mass/Vol] 117 mg/dL High 70-100 [facility] Comment on above: Performed By: #### L AB15 ####Chief Information Officer: FREDRICK KHAN ([id number])[facility]TR[facility] (SBHLAB)[address] Potassium [Moles/Vol] 4.1 mmol/L Normal 3.5-5.1 [facility] Comment on above: Performed By: #### L AB15 ####Chief Information Officer: FREDRICK KHAN ([id number])[facility]A [facility]BPRESBYTERIAN S[facility]ERN (SBHLAB)[address] Sodium [Moles/Vol] 134 mmol/L Low 135-145 [facility] Comment on above: Performed By: #### L AB15 ####Chief Information Officer: FREDRICK KHAN ([id number])[facility] [place] ([facility])[address] Urea nitrogen [Mass/Vol] 14 mg/dL Normal 7-17 [facility] Comment on above: Performed By: #### L AB15 ####Chief Information Officer: FREDRICK KHAN ([id number])[facility] [place] ([facility])[address] Basic metabolic 1998 panelon 02-11-2024 Anion gap [Moles/Vol] 3 mmol/L 3 - 13 mmol/L [facility] Calcium [Mass/Vol] 8.6 mg/dL 8.4 - 10. 4 mg/dL [facility] Chloride [Moles/Vol] 105 mmol/L 98 - 10 7 mmol/L [facility] CO2 [Moles/Vol] 26 mmol/L 22 - 30 mmol/L [facility] Creatinine [Mass/Vol] 0.59 mg/dL 0.52 - 1.04 mg/dL [facility] GFR/1.73 sq M.predicted MDRD (S/P/Bld) [Vol rate/Area] - PINF [facility] Comment on above: Calculation based on the Chronic Kidney Disease Epidemiology Collaboration (CKD-EPI) equation refit without adjustment for race Glucose [Mass/Vol] 117 mg/dL High 70 - 100 mg/dL [facility] Interpretation and review of laboratory results Abnormal [facility] Potassium [Moles/Vol] 4.1 mmol/L 3.5 - 5.1 mmol/L [facility] Sodium [Moles/Vol] 134 mmol/L Low 135 - 145 mmol/L [facility] Urea nitrogen [Mass/Vol] 14 mg/dL 7 - 17 mg/dL [facility] CARECOORDon 02-11-2024 CARECOORD Normal [facility] CBC (HEMOGRAM)on 02-11-2024 Erythrocyte distribution width (RBC) [Ratio] 18.9 % High 11.5-15.0 [facility] Comment on above: Performed By: #### L [id number] ####Chief Information Officer: FREDRICK KHAN ([id number])[facility] ([facility])[address] [place] [address] Hematocrit (Bld) [Volume fraction] 26.2 % Low 35.0-47.0 [facility] Comment on above: Performed By: #### L AB294 ####Chief Information Officer: FREDRICK KHAN ([id number])[facility] ([facility])[address] [place] [address] Hemoglobin (Bld) [Mass/Vol] 8.5 g/dL Low 11.7-16.0 [facility] Comment on above: Performed By: #### L AB294 ####Chief Information Officer: FREDRICK KHAN ([id number])[facility] (SB[facility]AB)[address] MCH (RBC) [Entitic mass] 25.1 pg Low 26.0-34.0 [facility] Comment on above: Performed By: #### L AB294 ####Chief Information Officer: FREDRICK KHAN ([id number])[facility] (SB[facility]AB)[address] MCHC 32.4 % Normal 30.5-36.0 [facility] Comment on above: Performed By: #### L AB294 ####Chief Information Officer: FREDRICK KHAN ([id number])[facility] CENTERMaik BATISTADinesh (SBHLAB)[address] MCV (RBC) [Entitic vol] 77.3 fL Normal 77.0-99.0 [facility] Comment on above: Performed By: #### L AB294 ####Chief Information Officer: FREDRICK KHAN ([id number])[facility] CENTERMaik HINSONTRINYN (SBHLAB)[address] Platelet mean volume (Bld) [Entitic vol] 9.4 fL Normal 9.0-12.7 [facility] Comment on above: Performed By: #### L AB294 ####Chief Information Officer: FREDRICK KHAN ([id number])[facility] CENTERMaik HINSONTRINYN (SBHLAB)155 [place] [address] [place] Platelets (Bld) [#/Vol] 290 10*3/uL Normal 140-440 [facility] Comment on above: Performed By: #### L AB294 ####Chief Information Officer: FREDRICK KHAN ([id number])[facility] CENTERMaik HINSONTRINYN (SBHLAB)[address] RBC (Bld) [#/Vol] 3.39 10*6/uL Low 3.80-5.20 [facility] Comment on above: Performed By: #### L AB294 ####Chief Information Officer: FREDRICK KHAN ([id number])[facility] CENTERMaik KHOURY (SBHLAB)[address] WBC (Bld) [#/Vol] 14.1 10*3/uL High 3.6-10.7 [facility] Comment on above: Performed By: #### L AB294 ####Chief Information Officer: FREDRICK KHAN ([id number])[facility]ENTERMaik KHOURY (SBHLAB)[address] CBC panel Auto (Bld)on 02-10 Erythrocyte distribution width (RBC) [Ratio] 18.9 % High 11.5 - 15.0 % [facility] Hematocrit (Bld) [Volume fraction] 26.2 % Low 35.0 - 47.0 % [facility] Hemoglobin (Bld) [Mass/Vol] 8.5 g/dL Low 11.7 - 16.0 g/dL [facility] Interpretation and review of laboratory results Abnormal [facility] MCH (RBC) [Entitic mass] 25.1 pg Low 26.0 - 34.0 pg [facility] MCHC (RBC) [Mass/Vol] 32.4 % 30.5 - 36.0 % [facility] MCV (RBC) [Entitic vol] 77.3 fL 77.0 - 99.0 fL [facility] Platelet mean volume (Bld) [Entitic vol] 9.4 fL 9.0 - 12.7 fL [facility] Platelets (Bld) [#/Vol] 290 10*3/uL 140 - 440 10*3/uL [facility] RBC (Bld) [#/Vol] 3.39 10*6/uL Low 3.80 - 5.2 0 10*6/uL [facility] WBC (Bld) [#/Vol] 14.1 10*3/uL High 3.6 - 10.7 10*3/uL [facility] Progress Noteon 02-11-2024 Progress Note Nutrition rescreen completed. Patient referred to the Dietitian for colostomy. Normal [facility] Progress Note Normal [facility] Progress Note Normal [facility] Progress Note [facility] notified v mitzy secure message of BP 179/100 Normal [facility] Progress Note ELYSE Armstrong notified vi a Secure message of BP of 179/100 Normal [facility] BASIC METABOLIC PANELon 05-2 Anion gap [Moles/Vol] 6 mmol/L Normal 3-13 [facility] Comment on above: Performed By: #### L AB15 ####Chief Information Officer: FREDRICK KHAN ([id number])[facility] [place] ([facility])[address] Calcium [Mass/Vol] 8.6 mg/dL Normal 8.4-10.4 [facility] Comment on above: Performed By: #### L AB15 ####Chief Information Officer: FREDRICK KHAN ([id number])[facility] [place] (SB[facility])[address] Chloride [Moles/Vol] 107 mmol/L Normal 98-107 [facility] Comment on above: Performed By: #### L AB15 ####Chief Information Officer: FREDRICK KHAN ([id number])[facility] [place] ([facility])[address] CO2 [Moles/Vol] 20 mmol/L Low 22-30 [facility] Comment on above: Performed By: #### L AB15 ####Chief Information Officer: FREDRICK KHAN ([id number])[facility] BARBPRESBYTERIAN S[facility]ENT[facility] (SBHLAB)[address] Creatinine [Mass/Vol] 0.69 mg/dL Normal 0.52-1.04 [facility] Comment on above: Performed By: #### L AB15 ####Chief Information Officer: FREDRICK KHAN ([id number])[facility]A [facility]BPRESBYTERIAN S[facility] (SBHLAB)[address] GLOMERULAR FILTRATION RATE ML/MIN/1.73 SQ M.PREDICTED >90.0 Normal >60.0 [facility] Comment on above: Result Comment: Calc ulation based on the Chronic Kidney Disease Epidemiology Collaboration (CKD-EPI) equation refit without adjustment for race Performed By: #### L AB15 ####Chief Information Officer: FREDRICK KHAN ([id number])[facility] CENTERMaik BATISTAN (SBHLAB)[address] Glucose [Mass/Vol] 176 mg/dL High 70-100 [facility] Comment on above: Performed By: #### L AB15 ####Chief Information Officer: FREDRICK KHAN ([id number])[facility]A [facility] (SB[facility]AB)[address] Potassium [Moles/Vol] 4.7 mmol/L Normal 3.5-5.1 [facility] Comment on above: Performed By: #### L AB15 ####Chief Information Officer: FREDRICK KHAN ([id number])[facility] ([facility])[address] Sodium [Moles/Vol] 133 mmol/L Low 135-145 [facility] Comment on above: Performed By: #### L AB15 ####Chief Information Officer: FREDRICK KHAN ([id number])[facility] ([facility])[address] Urea nitrogen [Mass/Vol] 19 mg/dL High 7-17 [facility] Comment on above: Performed By: #### L AB15 ####Chief Information Officer: FREDRICK KHAN ([id number])[facility] ([facility])[address] Basic metabolic 1998 panelon 02-10-2024 Anion gap [Moles/Vol] 6 mmol/L 3 - 13 mmol/L [facility] Calcium [Mass/Vol] 8.6 mg/dL 8.4 - 10. 4 mg/dL [facility] Chloride [Moles/Vol] 107 mmol/L 98 - 10 7 mmol/L [facility] CO2 [Moles/Vol] 20 mmol/L Low 22 - 30 mmol/L [facility] Creatinine [Mass/Vol] 0.69 mg/dL 0.52 - 1.04 mg/dL [facility] GFR/1.73 sq M.predicted MDRD (S/P/Bld) [Vol rate/Area] - PINF [facility] Comment on above: Calculation based on the Chronic Kidney Disease Epidemiology Collaboration (CKD-EPI) equation refit without adjustment for race Glucose [Mass/Vol] 176 mg/dL High 70 - 100 mg/dL [facility] Interpretation and review of laboratory results Abnormal [facility] Potassium [Moles/Vol] 4.7 mmol/L 3.5 - 5.1 mmol/L [facility] Sodium [Moles/Vol] 133 mmol/L Low 135 - 145 mmol/L [facility] Urea nitrogen [Mass/Vol] 19 mg/dL High 7 - 17 mg/dL [facility] CBC (HEMOGRAM)on 02-10-2024 Erythrocyte distribution width (RBC) [Ratio] 18.6 % High 11.5-15.0 [facility] Comment on above: Performed By: #### L [id number] ####Chief Information Officer: FREDRICK KHAN ([id number])[facility] ([facility])[address] [place] [address] Hematocrit (Bld) [Volume fraction] 28.2 % Low 35.0-47.0 [facility] Comment on above: Performed By: #### L AB294 ####Chief Information Officer: FREDRICK KHAN ([id number])[facility] ([facility])[address] [place] [address] Hemoglobin (Bld) [Mass/Vol] 9.1 g/dL Low 11.7-16.0 [facility] Comment on above: Performed By: #### L AB294 ####Chief Information Officer: FREDRICK KHAN ([id number])[facility] MCH (RBC) [Entitic mass] 24.9 pg Low 26.0-34.0 [facility] Comment on above: Performed By: #### L AB294 ####Chief Information Officer: FREDRICK KHAN ([id number])[facility] [place] [address] MCHC 32.3 % Normal 30.5-36.0 [facility] Comment on above: Performed By: #### L [id number] ####Chief Information Officer: FREDRICK KHAN ([id number])[facility] BATISTADinesh (SBHLAB)[address] MCV (RBC) [Entitic vol] 77.3 fL Normal 77.0-99.0 [facility] Comment on above: Performed By: #### L [id number] ####Chief Information Officer: FREDRICK KHAN ([id number])[facility] CENTERMaik HINSONPRESBYTERIAN SANTA FE MEDICAL CENTERN (SBHLAB)[address] Platelet mean volume (Bld) [Entitic vol] 9.4 fL Normal 9.0-12.7 [facility] Comment on above: Performed By: #### L [id number] ####Chief Information Officer: FREDRICK KHAN ([id number])[facility] CENTERMaik HINSONPRESBYTERIAN SANTA FE MEDICAL CENTERDinesh (SBHLAB)[address] [place] [address] Platelets (Bld) [#/Vol] 272 10*3/uL Normal 140-440 [facility] Comment on above: Performed By: #### L [id number] ####Chief Information Officer: FREDRICK KHAN ([id number])[facility] CENTERMaik HINSONPRESBYTERIAN SANTA FE MEDICAL CENTERDinesh (SBHLAB)[address] RBC (Bld) [#/Vol] 3.65 10*6/uL Low 3.80-5.20 [facility] Comment on above: Performed By: #### L [id number] ####Chief Information Officer: FREDRICK KHAN ([id number])[facility] CENTERMaik HINSONPRESBYTERIAN SANTA FE MED[facility] CENTERN (SBHLAB)[address] [place] [address] WBC (Bld) [#/Vol] 18.0 10*3/uL High 3.6-10.7 [facility] Comment on above: Performed By: #### L [id number] ####Chief Information Officer: FREDRICK KHAN ([id number])[facility]ENTERMaik HINSONPRESBYTERIAN SANTA FE MEDICAL CENTERDinesh (SBHLAB)[address] CBC panel Auto (Bld)on 02-09 Erythrocyte distribution width (RBC) [Ratio] 18.6 % High 11.5 - 15.0 % [facility] Hematocrit (Bld) [Volume fraction] 28.2 % Low 35.0 - 47.0 % [facility] Hemoglobin (Bld) [Mass/Vol] 9.1 g/dL Low 11.7 - 16.0 g/dL [facility] Interpretation and review of laboratory results Abnormal [facility] MCH (RBC) [Entitic mass] 24.9 pg Low 26.0 - 34.0 pg [facility] MCHC (RBC) [Mass/Vol] 32.3 % 30.5 - 36.0 % [facility] MCV (RBC) [Entitic vol] 77.3 fL 77.0 - 99.0 fL [facility] Platelet mean volume (Bld) [Entitic vol] 9.4 fL 9.0 - 12.7 fL [facility] Platelets (Bld) [#/Vol] 272 10*3/uL 140 - 440 10*3/uL [facility] RBC (Bld) [#/Vol] 3.65 10*6/uL Low 3.80 - 5.2 0 10*6/uL [facility] WBC (Bld) [#/Vol] 18.0 10*3/uL High 3.6 - 10.7 10*3/uL [facility] Progress Note02-10-2024 Progress Note Normal [facility] Progress Note Normal [facility] [id number] 02-09-2024 [id number] Normal [facility] Anesthesia Noteon 02-09-2024 Anesthesia Note [facility] Consulton 02-09-2024 Consult Normal [facility] Nursing Noteon 02-09-2024 Nursing Note To 1 east via bed family at bedside and updated pt able to rest quietly when not disturbed report to dami Normal [facility] Nursing Note Normal [facility] Op Noteon 02-09-2024 Op Note Normal [facility] CNOVon 02-05-2024 CNOV Office Visit (AGPOB1 ) PRISCILA CHA ([id number]) 1955 F Date Time Provider Department 02/05/24 10:30 AM RUBÉN JIMENES During your visit today, we recorded the following information about you: Respiration Weight Height 16/minute 60.8 kg 1.6 m Rubén Jimenes MD 02/05/2024 3:32 PM Signed ORTHOPAEDIC OFFICE NOTE CHIEF COMPLAINT: Right total hip arthroplasty HISTORY OF PRESENT ILLNESS: Priscila Cha is a 68 year old female who presents for Postoperative valuation following right total hip arthroplasty on 10/16/2023. Overall she is doing very well. For most part she is pain-free. She is achieved excellent pain relief compared to the preoperative state. She is ambulate independently without issue and is more or less back to normal activity. She denies current fevers chills nausea vomiting weight loss fatigue or malaise. Reviewed nursing note and current pain scale. PAST MEDICAL HISTORY Diagnosis Date Anxiety Arthritis Atrophic vaginitis Chronic pain Constipation COPD (chronic obstructive pulmonary disease) (HCC) Depression Dyspareunia in female Headache, migraine Hemorrhoids IBS (irritable bowel syndrome) patient denies IBS pt will d/w PCP Menopausal and female climacteric states Multilevel degenerative disc disease Panic disorder Shingles recurring Sinusitis Sleep apnea Spondylolisthesis at L5-S1 level Urinary frequency PAST SURGICAL HISTORY Procedure Laterality Date BACK SURGERY HX 06/2017 cage around discs CATARACT EXTRACTION HX 2008 COLONOSCOPY 01/10/2018 EXTENSIVE JAW SURGERY 1983 SEPTOPLASTY 1985 TONSILLECTOMY HX age 4 FAMILY HISTORY Problem Relation Age of Onset Coronary Artery Disease Mother Coronary Artery Disease Father Colon Cancer Paternal Grandmother Arthritis Other other (Congestive heart failure) Other Thyroid Other Disorder Social History Tobacco Use Smoking status: Former Packs/day: .75 Types: Cigarettes Quit date: 09/27/2023 Years since quittin.3 Smokeless tobacco: Never Tobacco comments: Trying to quit Vaping Use Vaping Use: Never used Substance Use Topics Alcohol use: No Drug use: Yes Types: Marijuana Comment: THC gummies MEDICATIONS: Current Outpatient Medications Medication Sig MAGNESIUM GLYCINATE ORAL Take 400 mg by mouth once daily. HERBAL THERAPY CBD Gummie- Take one by mouth daily at bedtime as needed for insomnia albuterol HFA (PROVENTIL HFA, VENTOLIN HFA) 90 mcg/actuation inhaler Inhale 2 Puffs as instructed every 4 hours as needed for wheezing/shortness of breath. cholecalciferol (VITAMIN D3) 1,000 unit tab tablet 2 tabs Orally Once a day TRELEGY ELLIPTA 200-62.5-25 mcg inhalation powder Inhale 1 Puff as instructed once daily. takes in morning traZODone (DESYREL) 50 mg tablet Take 50 mg by mouth daily at bedtime. clonazePAM (KLONOPIN) 0.5 mg tablet Take 0.25 mg by mouth two times a day as needed for anxiety. Patient reports that Klonopin 0.5mg daily prn is prescribed but that when at home she usually takes Klonopin 0.25mg bid prn Paula Bernal, [facility] October 17, 2023 7:43 AM gabapentin (NEURONTIN) 300 mg capsule Take 300 mg by mouth daily at bedtime. dicyclomine (BENTYL) 20 mg tablet Take 20 mg by mouth three times a day as needed (GI upset). aspirin, enteric coated (ADULT LOW DOSE ASPIRIN) 81 mg EC tablet Take 1 tablet by mouth two times a day for 21 days. No current facility-administered medications for this visit. ALLERGIES: ALLERGIES Allergen Reactions Levaquin [Levofloxa* GI Upset Sulfa (Sulfonamide * Vomiting PHYSICAL EXAMINATION: Resp 16 Ht 5' 3 (1.60m) Wt 134 lb (60.8kg) BMI 23.74 kg/(m2). General Appearance: Well appearing, alert, in no acute distress, well-hydrated, well nourished. Skin: Skin color, texture, turgor normal, no suspicious rashes or lesions. Psych: Patient is alert and oriented to person, time and place. Mood and affect are normal. Respiratory: Breathing is symmetric and unlabored Gait: Patient is able to ambulate independently without issue. There is no significant antalgia. She does not require assistive device. Extremities: Right lower extremity examined. Laterally based incision is well-healed without drainage or sign of infection. There is no focal tenderness or palpable mass. Gentle range of motion of the hip is relatively pain-free. Lymphatic: There is no palpable lymphadenopathy Peripheral Pulses: Normal. Neurologic: Bilateral lower extremities were examined. There is 5/5 strength with hip flexion, knee extension, dorsiflexion, EHL, plantar flexion. Sensation intact in all nerve dermatomes IMAGES: No results found for this or any previous visit (from the past 36 hour(s)). Plan ASSESSMENT AND PLAN: 1. S/P total right hip arthroplasty - ICD9: V43.64, ICD10: Z96.641 Functional Plan: Patient is a 68-year- (more content not included)... Normal [facility] Anesthesia Noteon 02-02-2024 Anesthesia Note Normal [facility] BASIC METABOLIC PANELon 01-16 Anion gap [Moles/Vol] 9 mmol/L Normal 3-13 [facility] Comment on above: Performed By: #### L AB15 ####Chief Information Officer: FREDRICK KHAN ([id number])[facility] (SBAB)[address] Calcium [Mass/Vol] 10.0 mg/dL Normal 8.4-10.4 [facility] Comment on above: Performed By: #### L AB15 ####Chief Information Officer: FREDRICK KHAN ([id number])[facility] BARBPRESBYTERIAN SANT[facility] MEDICAL CENTERN (SBHLAB)[address] Chloride [Moles/Vol] 101 mmol/L Normal 98-107 [facility] Comment on above: Performed By: #### L AB15 ####Chief Information Officer: FREDRICK KHAN ([id number])[facility] [place] (SBHLAB)[address] CO2 [Moles/Vol] 26 mmol/L Normal 22-30 [facility] Comment on above: Performed By: #### L AB15 ####Chief Information Officer: FREDRICK KHAN ([id number])[facility]AV[facility] (SBHLAB)[address] Creatinine [Mass/Vol] 0.68 mg/dL Normal 0.52-1.04 [facility] Comment on above: Performed By: #### L AB15 ####Chief Information Officer: FREDRICK [id number])[facility] (SBHLAB)[address] GLOMERULAR FILTRATION RATE ML/MIN/1.73 SQ M.PREDICTED >90.0 Normal >60.0 [facility] Comment on above: Result Comment: Calc ulation based on the Chronic Kidney Disease Epidemiology Collaboration (CKD-EPI) equation refit without adjustment for race Performed By: #### L AB15 ####Chief Information Officer: FREDRICK KHAN ([id number])[facility] (SBHLAB)[address] Glucose [Mass/Vol] 104 mg/dL High 70-100 [facility] Comment on above: Performed By: #### L AB15 ####Chief Information Officer: FREDRICK KHAN ([id number])[facility] ([facility] Potassium [Moles/Vol] 4.9 mmol/L Normal 3.5-5.1 [facility] Comment on above: Performed By: #### L AB15 ####Chief Information Officer: FREDRICK KHAN ([id number])[facility] Sodium [Moles/Vol] 135 mmol/L Normal 135-145 [facility] Comment on above: Performed By: #### L AB15 ####Chief Information Officer: FREDRICK KHAN ([id number])[facility] (SBHLAB)[address] Urea nitrogen [Mass/Vol] 13 mg/dL Normal 7-17 [facility] Comment on above: Performed By: #### L AB15 ####Chief Information Officer: FREDRICK KHAN ([id number])[facility] ([facility] BLOOD TYPE AND SCREEN GELon 02-02-2024 ABO GROUPING O Normal [facility] Comment on above: Performed By: #### L [id number] ####Chief Information Officer: FREDRICK KHAN ([id number])[facility] ([facility])[address] RH TYPE IN BLOOD Positive Normal [facility] Comment on above: Performed By: #### L AB276 ####Chief Information Officer: FREDRICK KHAN ([id number])[facility] ([facility])[address] CBC (HEMOGRAM)on 02-02-2024 Erythrocyte distribution width (RBC) [Ratio] 18.7 % High 11.5-15.0 [facility] Comment on above: Performed By: #### L [id number] ####Chief Information Officer: FREDRICK KHAN ([id number])[facility] ([facility])[address] [place] [address] Hematocrit (Bld) [Volume fraction] 36.5 % Normal 35.0-47.0 [facility] Comment on above: Performed By: #### L AB294 ####Chief Information Officer: FREDRICK KHAN ([id number])[facility] ([facility])[address] [place] [address] Hemoglobin (Bld) [Mass/Vol] 11.8 g/dL Normal 11.7-16.0 [facility] Comment on above: Performed By: #### L AB294 ####Chief Information Officer: FREDRICK KHAN ([id number])[facility] ([facility])[address] [place] [address] MCH (RBC) [Entitic mass] 24.9 pg Low 26.0-34.0 [facility] Comment on above: Performed By: #### L AB294 ####Chief Information Officer: FREDRICK KHAN ([id number])[facility] ([facility])[address] MCHC 32.3 % Normal 30.5-36.0 [facility] Comment on above: Performed By: #### L AB294 ####Chief Information Officer: FREDRICK KHAN ([id number])[facility] (SBHLAB)[address] MCV (RBC) [Entitic vol] 77.0 fL Normal 77.0-99.0 [facility] Comment on above: Performed By: #### L AB294 ####Chief Information Officer: FREDRICK KHAN ([id number])[facility] (SBHLAB)[address] Platelet mean volume (Bld) [Entitic vol] 8.8 fL Low 9.0-12.7 [facility] Comment on above: Performed By: #### L AB294 ####Chief Information Officer: FREDRICK KHAN ([id number])[facility] [place] (SBHLAB)[address] Platelets (Bld) [#/Vol] 408 10*3/uL Normal 140-440 [facility] Comment on above: Performed By: #### L AB294 ####Chief Information Officer: FREDRICK KHAN ([id number])[facility] [place] (SBHLAB)[address] RBC (Bld) [#/Vol] 4.74 10*6/uL Normal 3.80-5.20 [facility] Comment on above: Performed By: #### L AB294 ####Chief Information Officer: FREDRICK KHAN ([id number])[facility] [place] (SBHLAB)[address] WBC (Bld) [#/Vol] 7.7 10*3/uL Normal 3.6-10.7 [facility] Comment on above: Performed By: #### L AB294 ####Chief Information Officer: FREDRICK KHAN ([id number])[facility] [place] (SBHLAB)[address] PREPROCINSon 02-02-2024 PREPROCINS Normal [facility] Progress Noteon 02-02-2024 Progress Note Normal [facility] 36on 01-05-2024 36 Normal [facility] Progress Noteon 01-05-2024 Progress Note Normal [facility] [id number] 01-02-2024 [id number] [facility] Anesthesia Noteon 01-02-2024 Anesthesia Note Normal [facility] Anesthesia Note Normal [facility] Nursing Noteon 01-02-2024 Nursing Note Pt and family verbalized understanding of recovery instructions, pt verbalized a readiness to be discharged home. Pt discharged home via wheelchair accompanied by RN/volunteer. Pt has had all their belongings returned to them at discharge [facility] Nursing Note Pt recieved from ENDOSCOPY to phase 2 via cart with ELECTRONIC ENGRAVER in attendance, pt has spontaneous respirations,pt place on monitor with alarms on, will continue to monitor [facility] Op Noteon 01-02-2024 Op Note Normal [facility] 36on 12-26-2023 36 Normal [facility] 36 Mr Cha called with concerns about Priscila having the colonoscopy next week. He would like a call back . Normal [facility] Progress Noteon 12-20-2023 Progress Note Normal [facility] 36on 12-06-2023 36 Normal [facility] 36 Deja (patient's ) called asking if Priscila could have some pain meds to take before she goes to physical therapy. Her abdomen hurts while in therapy. Please call him back at [phone] [facility] CNPNon 12-06-2023 KAYLA Telephone (JUAN) PRISCILA CHA ([id number]) 1955 F Date Time Provider Department 12/06/23 RUBÉN JIMENES During your visit today, we recorded the following information about you: Marcy Castaneda 12/06/2023 2:04 PM Signed Call from asking if there is a pain med that Priscila can take prior to PT. She is struggling to get through due to pain. Allergies As of Date: 12/06/2023 Noted Allergy Reaction LEVAQUIN (LEVOFLOXACIN) 06/28/2017 8 - GI Upset SULFA (SULFONAMIDE ANTIBIOTICS) 06/28/2017 11 - Vomiting Date Reviewed: 11/29/2023 Reviewed by: Rubén Jimenes MD - Fully Assessed Reason for Visit: Patient Question [9397] Prescriptions as of 12/08/2023 - dicyclomine (BENTYL) 20 mg tablet Take 20 mg by mouth three times a day as needed (GI upset). - MAGNESIUM GLYCINATE ORAL Take 400 mg by mouth once daily. - HERBAL THERAPY CBD Gummie- Take one by mouth daily at bedtime as needed for insomnia - aspirin, enteric coated (ADULT LOW DOSE ASPIRIN) 81 mg EC tablet Take 1 tablet by mouth two times a day for 21 days. - albuterol HFA (PROVENTIL HFA, VENTOLIN HFA) 90 mcg/actuation inhaler Inhale 2 Puffs as instructed every 4 hours as needed for wheezing/shortness of breath. - cholecalciferol (VITAMIN D3) 1,000 unit tab tablet 2 tabs Orally Once a day - TRELEGY ELLIPTA 200-62.5-25 mcg inhalation powder Inhale 1 Puff as instructed once daily. takes in morning - traZODone (DESYREL) 50 mg tablet Take 50 mg by mouth daily at bedtime. - clonazePAM (KLONOPIN) 0.5 mg tablet Take 0.25 mg by mouth two times a day as needed for anxiety. Patient reports that Klonopin 0.5mg daily prn is prescribed but that when at home she usually takes Klonopin 0.25mg bid prn Paula Bernal, [facility] October 17, 2023 7:43 AM - gabapentin (NEURONTIN) 300 mg capsule Take 300 mg by mouth daily at bedtime. Problem List As Of Date 12/06/2023 Noted Resolved Spondylolisthesis at L5-S1 level [M43.17] Chronic pain [G89.29] Multilevel degenerative disc disease [M53.9] Spondylolisthesis of lumbar region [M43.16] 07/06/2017 Spondylolisthesis at L4-L5 level [M43.16] 07/06/2017 COPD (chronic obstructive pulmonary disease) (H* Preop examination [Z01.818] ANJANA (obstructive sleep apnea) [G47.33] 09/27/2023 S/P total right hip arthroplasty [Z96.641] 10/17/2023 Primary osteoarthritis involving multiple joint*10/17/2023 Severe malnutrition (HCC) [E43] 11/29/2023 Encounter Status:Closed by MARCY CASTANEDA on 12/08/23 [facility] CNOVon 11-29-2023 CNOV Office Visit (AGPOB1 ) PRISCILA CHA ([id number]) 1955 F Date Time Provider Department 11/29/23 10:45 AM RUBÉN JIMENES [id number] During your visit today, we recorded the following information about you: Respiration Weight Height 20/minute 60.8 kg 1.6 m Rubén Jimenes MD 11/29/2023 1:21 PM Signed ORTHOPAEDIC OFFICE NOTE CHIEF COMPLAINT: Right total hip arthroplasty HISTORY OF PRESENT ILLNESS: Priscila Cha is a 68 year old female who presents for Follow-up evaluation for right total hip arthroplasty on 10/16/2023. In regards to her hip, she is doing very well. For the most part she is pain-free and her pain is much improved compared to the preoperative state. She did unfortunately have a perforated bowel secondary to diverticulitis and underwent abdominal surgery with ostomy placement. She is still recovering from this and this is been hard for her to get over. She ambulates with a walker at home. She denies current fevers chills nausea vomiting weight loss fatigue or malaise. Reviewed nursing note and current pain scale. PAST MEDICAL HISTORY Diagnosis Date Anxiety Arthritis Atrophic vaginitis Chronic pain Constipation COPD (chronic obstructive pulmonary disease) (HCC) Depression Dyspareunia in female Headache, migraine Hemorrhoids IBS (irritable bowel syndrome) patient denies IBS pt will d/w PCP Menopausal and female climacteric states Multilevel degenerative disc disease Panic disorder Shingles recurring Sinusitis Sleep apnea Spondylolisthesis at L5-S1 level Urinary frequency PAST SURGICAL HISTORY Procedure Laterality Date BACK SURGERY HX 06/2017 cage around discs CATARACT EXTRACTION HX 2009 COLONOSCOPY 01/10/2018 EXTENSIVE JAW SURGERY 1983 SEPTOPLASTY 1985 TONSILLECTOMY HX age 4 FAMILY HISTORY Problem Relation Age of Onset Coronary Artery Disease Mother Coronary Artery Disease Father Colon Cancer Paternal Grandmother Arthritis Other other (Congestive heart failure) Other Thyroid Other Disorder Social History Tobacco Use Smoking status: Former Packs/day: .75 Types: Cigarettes Quit date: 09/27/2023 Years since quittin.1 Smokeless tobacco: Never Tobacco comments: Trying to quit Vaping Use Vaping Use: Never used Substance Use Topics Alcohol use: No Drug use: Yes Types: Marijuana Comment: THC gummies MEDICATIONS: Current Outpatient Medications Medication Sig dicyclomine (BENTYL) 20 mg tablet Take 20 mg by mouth three times a day as needed (GI upset). MAGNESIUM GLYCINATE ORAL Take 400 mg by mouth once daily. HERBAL THERAPY CBD Gummie- Take one by mouth daily at bedtime as needed for insomnia albuterol HFA (PROVENTIL HFA, VENTOLIN HFA) 90 mcg/actuation inhaler Inhale 2 Puffs as instructed every 4 hours as needed for wheezing/shortness of breath. cholecalciferol (VITAMIN D3) 1,000 unit tab tablet 2 tabs Orally Once a day TRELEGY ELLIPTA 200-62.5-25 mcg inhalation powder Inhale 1 Puff as instructed once daily. takes in morning traZODone (DESYREL) 50 mg tablet Take 50 mg by mouth daily at bedtime. clonazePAM (KLONOPIN) 0.5 mg tablet Take 0.25 mg by mouth two times a day as needed for anxiety. Patient reports that Klonopin 0.5mg daily prn is prescribed but that when at home she usually takes Klonopin 0.25mg bid prn Paula Brenal, [facility] October 17, 2023 7:43 AM gabapentin (NEURONTIN) 300 mg capsule Take 300 mg by mouth daily at bedtime. aspirin, enteric coated (ADULT LOW DOSE ASPIRIN) 81 mg EC tablet Take 1 tablet by mouth two times a day for 21 days. No current facility-administered medications for this visit. ALLERGIES: ALLERGIES Allergen Reactions Levaquin [Levofloxa* GI Upset Sulfa (Sulfonamide * Vomiting PHYSICAL EXAMINATION: Resp 20 Ht 5' 3 (1.60m) Wt 134 lb (60.8kg) BMI 23.74 kg/(m2). General Appearance: Well appearing, alert, in no acute distress, well-hydrated, well nourished. Skin: Skin color, texture, turgor normal, no suspicious rashes or lesions. Psych: Patient is alert and oriented to person, time and place. Mood and affect are normal. Respiratory: Breathing is symmetric and unlabored Gait: Patient was examined in a wheelchair today. Extremities: Right lower extremity examined. Laterally based incision is well-healed without drainage or sign of infection. There is no focal tenderness or palpable mass. Gentle range of motion of the hip is relatively pain-free. Lymphatic: There is no palpable lymphadenopathy Peripheral Pulses: Normal. Neurologic: Bilateral lower extremities were examined. There is 5/5 strength with hip flexion, knee extension, dorsiflexion, EHL, plantar flexion. Sensation intact in all nerve dermatomes IMAGES: No results found for this or any previous visit (from the past 36 hour(s)). Plan ASSESSMENT AND PLAN: 1. S/P total right hip arthroplasty (more content not included)... Normal [facility] Progress Noteon 2023 Progress Note Normal [facility] Progress Noteon 11-17-2023 Progress Note Normal [facility] 36on 11-14-2023 36 Normal [facility] 36on 11-13-2023 36 Normal [facility] CARECOORDon 11-13-2023 CARECOORD Patient Choice Patient Name: PRISCILA CHA Date of : 1955 Normal [facility] CARECOORDon 11-10-2023 CAR[place]OORD Normal [facility] Sent Admit to [facility] ent order to [facility] via [facility] per Facility request. [facility] CARECOORD Discharge med list transmitted to [facility] via [facility] per [facility] request. 7000 was entered into [employer] for the [facility]- Facility is aware. Normal [facility] CAR[place]OORD Normal [facility] Normal [facility] Sent updated notes [facility] via [employer] per T[facility] request. Await review and response regarding ability to accept. [facility] notified. Normal [facility] CBC W Auto Differential pane l (Bld)on 11-10-2023 Erythrocyte distribution width (RBC) [Ratio] 18.9 % High 11.5 - 14.5 % [facility] Hematocrit (Bld) [Volume fraction] 25.3 % Low 35.0 - 47.0 % [facility] Hemoglobin (Bld) [Mass/Vol] 8.2 g/dL Low 11.7 - 16.0 g/dL [facility] MCH (RBC) [Entitic mass] 25.6 pg Low 26.0 - 34.0 pg [facility] MCHC (RBC) [Mass/Vol] 32.4 % 32.0 - 36.0 % [facility] MCV (RBC) [Entitic vol] 79.0 fL Low 80.0 - 98.0 fL [facility] Nucleated RBC/100 WBC (Bld) [Ratio] 0.0 % [facility] Platelet mean volume (Bld) [Entitic vol] 6.8 fL Low 7.4 - 12.4 fL [facility] Platelets (Bld) [#/Vol] 665 10*3/uL High 140 - 440 10*3/uL [facility] RBC (Bld) [#/Vol] 3.21 10*6/uL Low 3.8 - 5.20 10*6/uL [facility] WBC (Bld) [#/Vol] 16.4 10*3/uL High 3.6 - 10.7 10*3/uL [facility] CBC WITH AUTO DIFFERENTIALon 11-10-2023 Erythrocyte distribution width (RBC) [Ratio] 18.9 % High 11.5-14.5 [facility] Comment on above: Performed By: #### L [id number], [id number] ####Chief Information Officer: FREDRICK KHAN ([id number])SUMMMaik KHOURY (SBHLAB)[address] ERYTHROCYTE MEAN CORPUSCULAR HEMOGLOBIN CONCENTRATION (G/DL) BY AUTOMATED 32.4 % Normal 32.0-36.0 [facility] Comment on above: Performed By: #### L [id number], [id number] ####Chief Information Officer: FREDRICK KHAN ([id number])[facility]ENTERMaik [facility]HAV[facility] (SBHLAB)[address] Hematocrit (Bld) [Volume fraction] 25.3 % Low 35.0-47.0 [facility] Comment on above: Performed By: #### L [id number], [id number] ####Chief Information Officer: FREDRICK KHAN ([phone])[facility] [place] [address] Hemoglobin (Bld) [Mass/Vol] 8.2 g/dL Low 11.7-16.0 [facility] Comment on above: Performed By: #### L [id number], [id number] ####Chief Information Officer: FREDRICK KHAN ([id number])[facility] CENTERMaik [facility] (SBHLAB)[address] [place] [address] MCH (RBC) [Entitic mass] 25.6 pg Low 26.0-34.0 [facility] Comment on above: Performed By: #### L [id number], [id number] ####Chief Information Officer: FREDRICK KHAN ([phone])[facility] (SBHLAB)[address] MCV (RBC) [Entitic vol] 79.0 fL Low 80.0-98.0 [facility] Comment on above: Performed By: #### L [id number], [id number] ####Chief Information Officer: FREDRICK KHAN ([id number])[facility] (SBHLAB)[address] NRBC (PER 100 WBCS) BY AUTOMATED COUNT 0.0 /100 WBCs Normal 0.0-2.0 [facility] Comment on above: Performed By: #### L [id number], [id number] ####Chief Information Officer: FREDRICK KHAN ([id number])FR[facility]AA [place] (SBHLAB)[address] Platelet mean volume (Bld) [Entitic vol] 6.8 fL Low 7.4-12.4 [facility] Comment on above: Performed By: #### L [id number], [id number] ####Chief Information Officer: FREDRICK KHAN ([id number])[facility] [place] (SBHLAB)[address] Platelets (Bld) [#/Vol] 665 10*3/uL High 140-440 [facility] Comment on above: Performed By: #### L [id number], [id number] ####Chief Information Officer: FREDRICK KHAN ([id number])[facility]A [place] (SBHLAB)[address] RBC (Bld) [#/Vol] 3.21 10*6/uL Low 3.8-5.20 [facility] Comment on above: Performed By: #### L [id number], [id number] ####Chief Information Officer: FREDRICK KHAN ([id number])[facility] [place] (SBHLAB)[address] WBC (Bld) [#/Vol] 16.4 10*3/uL High 3.6-10.7 [facility] Comment on above: Performed By: #### L [id number], [id number] ####Chief Information Officer: FREDRICK KHAN ([id number])[facility] [place] (SBHLAB)[address] COMPREHENSIVE METABOLIC PANE Miles 11-10-2023 Albumin [Mass/Vol] 2.2 g/dL Low 3.5-5.0 [facility] Comment on above: Performed By: #### L [id number] ####Chief Information Officer: FREDRICK KHAN ([phone])[facility] [place] (SBHLAB)[address] ALP [Catalytic activity/Vol] 74 U/L Normal 38-126 [facility] Comment on above: Performed By: #### L AB17 ####Chief Information Officer: FREDRICK KHAN ([id number])[facility]ENTERA BAR[place] (SBHLAB)[address] ALT [Catalytic activity/Vol] 11 U/L Normal 0-34 [facility] Comment on above: Performed By: #### L AB17 ####Chief Information Officer: FREDRICK KHAN ([id number])[facility] [place] (SBHLAB)[address] Anion gap [Moles/Vol] 2 mmol/L Low 3-13 [facility] Comment on above: Performed By: #### L AB17 ####Chief Information Officer: FREDRICK KHAN ([id number])[facility] (SB[facility]AB)[address] AST [Catalytic activity/Vol] 28 U/L Normal 15-46 [facility] Comment on above: Performed By: #### L AB17 ####Chief Information Officer: FREDRICK KHAN ([id number])[facility]ENTERA [facility] (HLAB)[address] Bilirubin [Mass/Vol] 0.2 mg/dL Normal 0.2-1.3 [facility] Comment on above: Performed By: #### L AB17 ####Chief Information Officer: FREDRICK KHAN ([id number])[facility] BARBPRESBYTERIAN SANT[facility] CENTERN (HLAB)[address] Calcium [Mass/Vol] 8.0 mg/dL Low 8.4-10.4 [facility] Comment on above: Performed By: #### L AB17 ####Chief Information Officer: FREDRICK KHAN ([id number])[facility] (HLAB)[address] Chloride [Moles/Vol] 107 mmol/L Normal 98-107 [facility] Comment on above: Performed By: #### L AB17 ####Chief Information Officer: FREDRICK KHAN ([id number])[facility] CENTERMaik HINSONPRESBYTERIAN SANTA FE MEDICAL CENTERN (SBHLAB)[address] CO2 [Moles/Vol] 25 mmol/L Normal 22-30 [facility] Comment on above: Performed By: #### L AB17 ####Chief Information Officer: FREDRICK KHAN ([id number])[facility] CENTERMaik BARBPRESBYTERIAN SANTA FE MED[facility] CENTERN (SBHLAB)[address] Creatinine [Mass/Vol] 0.49 mg/dL Low 0.52-1.04 [facility] Comment on above: Performed By: #### L AB17 ####Chief Information Officer: FREDRICK KHAN ([id number])[facility] CENTERMaik [facility] (SBHLAB)[address] GLOMERULAR FILTRATION RATE ML/MIN/1.73 SQ M.PREDICTED >90.0 Normal >60.0 [facility] Comment on above: Result Comment: Calc ulation based on the Chronic Kidney Disease Epidemiology Collaboration (CKD-EPI) equation refit without adjustment for race Performed By: #### L AB17 ####Chief Information Officer: FREDRICK KHAN ([id number])[facility] CENTERMaik HINSONPRESBYTERIAN SANTA FE MED[facility] CENTERN (HLAB)[address] Glucose [Mass/Vol] 102 mg/dL High 70-100 [facility] Comment on above: Performed By: #### L AB17 ####Chief Information Officer: FREDRICK KHAN ([id number])[facility] (SBHLAB)[address] [place] [address] [place] Potassium [Moles/Vol] 3.9 mmol/L Normal 3.5-5.1 [facility] Comment on above: Performed By: #### L AB17 ####Chief Information Officer: FREDRICK KHAN ([id number])[facility] (SBHLAB)[address] [place] [address] [place] Protein [Mass/Vol] 5.1 g/dL Low 6.3-8.2 [facility] Comment on above: Performed By: #### L AB17 ####Chief Information Officer: FREDRICK KHAN ([id number])[facility] (SBHLAB)[address] Sodium [Moles/Vol] 134 mmol/L Low 135-145 [facility] Comment on above: Performed By: #### L AB17 ####Chief Information Officer: FREDRICK KHAN ([id number])[facility] (SBHLAB)[address] Urea nitrogen [Mass/Vol] 6 mg/dL Low 7-17 [facility] Comment on above: Performed By: #### L AB17 ####Chief Information Officer: FREDRICK RAMOSSATINDER ([id number])[facility])[address] [place] [address] Comprehensive metabolic 1998 panelon 11-10-2023 Albumin [Mass/Vol] 2.2 g/dL Low 3.5 - 5.0 g/dL [facility] ALP [Catalytic activity/Vol] 74 U/L 38 - 126 U/L [facility] ALT [Catalytic activity/Vol] 11 U/L 0 - 34 U/L [facility] Anion gap [Moles/Vol] 2 mmol/L Low 3 - 13 mmol/L [facility] AST [Catalytic activity/Vol] 28 U/L 15 - 46 U/L [facility] Bilirubin [Mass/Vol] 0.2 mg/dL 0.2 - 1 .3 mg/dL [facility] Calcium [Mass/Vol] 8.0 mg/dL Low 8.4 - 10. 4 mg/dL [facility] Chloride [Moles/Vol] 107 mmol/L 98 - 10 7 mmol/L [facility] CO2 [Moles/Vol] 25 mmol/L 22 - 30 mmol/L [facility] Creatinine [Mass/Vol] 0.49 mg/dL Low 0.52 - 1.04 mg/dL [facility] GFR/1.73 sq M.predicted MDRD (S/P/Bld) [Vol rate/Area] - PINF [facility] Comment on above: Calculation based on the Chronic Kidney Disease Epidemiology Collaboration (CKD-EPI) equation refit without adjustment for race Glucose [Mass/Vol] 102 mg/dL High 70 - 100 mg/dL [facility] Interpretation and review of laboratory results Abnormal [facility] Potassium [Moles/Vol] 3.9 mmol/L 3.5 - 5.1 mmol/L [facility] Protein [Mass/Vol] 5.1 g/dL Low 6.3 - 8.2 g/dL [facility] Sodium [Moles/Vol] 134 mmol/L Low 135 - 145 mmol/L [facility] Urea nitrogen [Mass/Vol] 6 mg/dL Low 7 - 17 mg/dL [facility] MANUAL DIFFERENTIALon 2023 ANISOCYTOSIS PRESENCE IN BLOOD BY LIGHT MICROSCOPY Slight Abnormal (none) [facility] Comment on above: Performed By: #### L [id number], [id number] ####Chief Information Officer: FREDRICK KHAN ([id number])[facility] [place] (SBHLAB)[address] BAND NEUTROPHILS TOTAL PER COUNTED LEUKOCYTES BY MANUAL COUNT 1 Normal [facility] Comment on above: Performed By: #### L [id number], [id number] ####Chief Information Officer: FREDRICK KHAN ([id number])[facility] [place] (SBHLAB)[address] [place] [address] [place] BANDS 0.2 10*3/uL High <=0.0 [facility] Comment on above: Performed By: #### L [id number], [id number] ####Chief Information Officer: FREDRICK KHAN ([id number])[facility] [place] (SBHLAB)[address] [place] [address] [place] BASOPHILS (10*3/UL) IN BLOOD BY MANUAL COUNT 0.2 10*3/uL Normal 0.0-0.2 [facility] Comment on above: Performed By: #### L [id number], [id number] ####Chief Information Officer: FREDRICK KHAN ([id number])[facility] [place] (SBHLAB)[address] BASOPHILS TOTAL PER COUNTED LEUKOCYTES BY MANUAL COUNT 1 Normal [facility] Comment on above: Performed By: #### L [id number], [id number] ####Chief Information Officer: FREDIRCK KHAN ([id number])[facility] [place] (SBHLAB)[address] BASOPHILS/100 LEUKOCYTES IN BLOOD BY MANUAL COUNT 1 % Normal 0-2 [facility] Comment on above: Performed By: #### L [id number], [id number] ####Chief Information Officer: FREDRICK KHAN ([id number])[facility] [place] (SBHLAB)[address] CELLS COUNTED TOTAL (#) IN BLOOD 100 Normal [facility] Comment on above: Performed By: #### L [id number], [id number] ####Chief Information Officer: FREDRICK KHAN ([id number])[facility] [place] (SBHLAB)[address] DIFFERENTIAL METHOD Manual differential performed Normal [facility] Comment on above: Performed By: #### L [id number], [id number] ####Chief Information Officer: FREDRICK KHAN ([id number])[facility] [place] (SBHLAB)[address] HYPOCHROMIA (PRESENCE) IN BLOOD BY LIGHT MICROSCOPY Slight Abnormal (none) [facility] Comment on above: Performed By: #### L PA5587, [id number] ####Chief Information Officer: FREDRICK KHAN ([phone])[facility] [place] (SBHLAB)[address] LEUKOCYTE MORPHOLOGY FINDING IN BLOOD Normal Normal [facility] Comment on above: Performed By: #### L ED0423, [id number] ####Chief Information Officer: FREDRICK KHAN ([id number])[facility] [place] (SBHLAB)[address] [place] [address] [place] LEUKOCYTES (10*3/UL) NUCLEATED ERYTHROCYTE ADJUST 16.4 10*3/uL High 3.6-10.7 [facility] Comment on above: Performed By: #### L [id number], [id number] ####Chief Information Officer: FREDRICK KHAN ([id number])[facility] [place] (SBHLAB)[address] [place] [address] [place] LYMPHOCYTES (10*3/UL) IN BLOOD BY MANUAL COUNT 0.7 10*3/uL Low 1.0-4.3 [facility] Comment on above: Performed By: #### L [id number], [id number] ####Chief Information Officer: FREDRICK BILL ([id number])[facility] [place] (SBHLAB)[address] [place] [address] [place] LYMPHOCYTES TOTAL PER COUNTED LEUKOCYTES BY MANUAL COUNT 4 Normal [facility] Comment on above: Performed By: #### L [id number], [id number] ####Chief Information Officer: FREDRICK RAMOSSATINDER ([id number])[facility] [place] (SBHLAB)[address] [place] [address] [place] LYMPHOCYTES/100 LEUKOCYTES IN BLOOD BY MANUAL COUNT 4 % Low 20-40 [facility] Comment on above: Performed By: #### L YQ6578, [id number] ####Chief Information Officer: FREDRICK RAMOSSATINDER ([id number])[facility] [place] (SBHLAB)[address] [place] [address] [place] METAMYELOCYTES (10*3/UL) IN BLOOD BY MANUAL COUNT 0.3 10*3/uL High <=0.0 [facility] Comment on above: Performed By: #### L [id number], [id number] ####Chief Information Officer: FREDRICK KHAN ([id number])[facility] [place] (SBHLAB)[address] [place] [address] [place] METAMYELOCYTES TOTAL PER COUNTED LEUKOCYTES BY MANUAL COUNT 2 Normal [facility] Comment on above: Performed By: #### L ZS2669, [id number] ####Chief Information Officer: FREDRICK KHAN ([id number])[facility] [place] (SBHLAB)[address] [place] [address] [place] METAMYELOCYTES/100 LEUKOCYTES IN BLOOD BY MANUAL COUNT 2 % High <=0 [facility] Comment on above: Performed By: #### L [id number], [id number] ####Chief Information Officer: FREDRICK KHAN ([id number])[facility] [place] (SBHLAB)[address] [place] [address] [place] MICROCYTES (PRESENCE) IN BLOOD BY LIGHT MICROSCOPY Slight Abnormal (none) [facility] Comment on above: Performed By: #### L [id number], [id number] ####Chief Information Officer: FREDRICK BILL ([id number])[facility] [place] (SBHLAB)[address] [place] [address] [place] MONOCYTES (10*3/UL) IN BLOOD BY MANUAL COUNT 0.5 10*3/uL Normal 0.0-0.8 [facility] Comment on above: Performed By: #### L [id number], [id number] ####Chief Information Officer: FREDRICK BILL ([id number])[facility] [place] (SBHLAB)[address] [place] [address] [place] MONOCYTES TOTAL PER COUNTED LEUKOCYTES BY MANUAL COUNT 3 Normal [facility] Comment on above: Performed By: #### L [id number], [id number] ####Chief Information Officer: FREDRICK BILL ([id number])[facility] [place] (SBHLAB)[address] [place] [address] [place] MONOCYTES/100 LEUKOCYTES IN BLOOD BY MANUAL COUNT 3 % Normal 2-10 [facility] Comment on above: Performed By: #### L [id number], [id number] ####Chief Information Officer: FREDRICK BILL ([id number])[facility] [place] (SBHLAB)[address] [place] [address] [place] NEUTROPHILS (SEGS+BANDS) (10*3/UL) BY MANUAL COUNT 14.8 10*3/uL High 1.8-7.0 [facility] Comment on above: Performed By: #### L [id number], [id number] ####Chief Information Officer: FREDRICK MONROYCAROLINA ([id number])[facility] [place] (SBHLAB)[address] [place] [address] [place] NEUTROPHILS BAND FORM/100 LEUKOCYTES IN BLOOD BY MANUAL COUNT 1 % High <=0 [facility] Comment on above: Performed By: #### L OY6165, [id number] ####Chief Information Officer: FREDRICK KHAN ([id number])[facility] [place] (SBHLAB)[address] [place] [address] [place] NEUTROPHILS TOTAL PER COUNTED LEUKOCYTES BY MANUAL COUNT 89 Normal [facility] Comment on above: Performed By: #### L [id number], [id number] ####Chief Information Officer: FREDRICK KHAN ([id number])[facility] [place] (SBHLAB)[address] OVALOCYTES PRESENCE IN BLOOD BY LIGHT MICROSCOPY Slight Abnormal (none) [facility] Comment on above: Performed By: #### L KY9337, [id number] ####Chief Information Officer: FREDRICK KHAN ([id number])[facility] [place] (SBHLAB)[address] PLATELET MORPHOLOGY IN BLOOD Normal Normal [facility] Comment on above: Performed By: #### L SC9199, [id number] ####Chief Information Officer: FREDRICK KHAN ([id number])[facility] [place] (SBHLAB)[address] [place] [address] [place] POIKILOCYTOSIS (PRESENCE) IN BLOOD BY LIGHT MICROSCOPY Slight Abnormal (none) [facility] Comment on above: Performed By: #### L [id number], [id number] ####Chief Information Officer: FREDRICK KHAN ([id number])[facility] [place] (SBHLAB)[address] [place] [address] [place] POLYCHROMASIA IN BLOOD BY LIGHT MICROSCOPY Slight Abnormal (none) [facility] Comment on above: Performed By: #### L PA4080, [id number] ####Chief Information Officer: FREDRICK KHAN ([id number])[facility] [place] (SBHLAB)[address] [place] [address] [place] SEGEMENTED NEUTROPHILS/100 LEUKOCYTES BY MANUAL COUNT 89 % High 40-80 [facility] Comment on above: Performed By: #### L YQ5433, [id number] ####Chief Information Officer: FREDRICK KHAN ([id number])[facility] [place] (SBHLAB)[address] SEGMENTED NEUTROPHILS (10*3/UL)IN BLOOD BY MANUAL COUNT 14.8 10*3/uL High 1.8-7.0 [facility] Comment on above: Performed By: #### L [id number], [id number] ####Chief Information Officer: FREDRICK KHAN ([id number])[facility] (SBHLAB)[address] STOMATOCYTES IN BLOOD BY LIGHT MICROSCOPY Slight Abnormal (none) [facility] Comment on above: Performed By: #### L [id number], YKY0556 ####Chief Information Officer: FREDRICK KHAN ([id number])[facility] (SBHLAB)[address] [place] [address] [employer] CELLS IN BLOOD BY LIGHT MICROSCOPY Rare Abnormal (none) [facility] Comment on above: Performed By: #### L [id number], [id number] ####Chief Information Officer: FREDRICK KHAN ([id number])[facility] (SBHLAB)[address] [place] [address] Manual differential performe d Ql (Bld)on 11-10-2023 Anisocytosis Ql (Bld) Slight Abnormal (none) [facility] Band form neutrophils (Bld) [#/Vol] 0.2 10*3/uL High NINF - 0.0 10*3/uL [facility] Band form neutrophils/100 WBC (Bld) 1 % High NINF - 0 % [facility] Bands Manual 1 [facility] Basophils (Bld) [#/Vol] 0.2 10*3/uL 0.0 - 0.2 10*3/uL [facility] Basophils Manual 1 [facility] alth Basophils/100 WBC (Bld) 1 % 0 - 2 % [facility] Cells Counted Total (Bld) [#] 100 {cells} [facility] Differential Method Manual differential performed [facility] Hypochromia Ql (Bld) Slight Abnormal (none) [facility] Leukocyte morphology finding Nom (Bld) Normal [facility] Lymphocytes (Bld) [#/Vol] 0.7 10*3/uL Low 1.0 - 4.3 10*3/uL [facility] Lymphocytes Manual 4 [facility] Lymphocytes/100 WBC (Bld) 4 % Low 20 - 40 % [facility] Metamyelocytes (Bld) [#/Vol] 0.3 10*3/uL High NINF - 0.0 10*3/uL [facility] Metamyelocytes Manual 2 [facility] Metamyelocytes/100 WBC (Bld) 2 % High NINF - 0 % [facility] Microcytes Ql (Bld) Slight Abnormal (none) [facility] Monocytes (Bld) [#/Vol] 0.5 10*3/uL 0.0 - 0.8 10*3/uL [facility] Monocytes Manual 3 [facility] Monocytes/100 WBC (Bld) 3 % 2 - 10 % [facility] Neutrophils (Bld) [#/Vol] 14.8 10*3/uL High 1.8 - 7.0 10*3/uL [facility] Neutrophils Manual 89 [facility] Ovalocytes LM Ql (Bld) Slight Abnormal (none) [facility] Platelet morphology finding Nom (Bld) Normal [facility] Poikilocytosis LM Ql (Bld) Slight Abnormal (none) [facility] Polychromasia LM Ql (Bld) Slight Abnormal (none) [facility] Segmented neutrophils/100 WBC (Bld) 89 % High 40 - 80 % [facility] Stomatocytes LM Ql (Bld) Slight Abnormal (none) [facility] Target cells LM Ql (Bld) Rare Abnormal (none) [facility] WBC corrected for nucl RBC (Bld) [#/Vol] 16.4 10*3/uL High 3.6 - 10.7 10*3/uL [facility] No Panel Informationon 11-10 Interpretation and review of laboratory results Abnormal [facility] Progress Noteon 11-10-2023 Progress Note To [facility] via ambulance Normal [facility] Progress Note Normal [facility] Report called to Luma archer at [facility] at [phone] Normal [facility] Progress Note Normal [facility] Progress Note Both patient and feel the patient is not ready to leave the hospital. Miguel Angel RAJAN notified via secure message Normal [facility] Progress Note Normal [facility] Progress [facility] Progress Note Surgery Rashida RAJAN notified that patient refuses the flagyl Normal [facility] Bacteria identified Anaer cx Nom (Unsp spec)Ordered By: Joaquin Riggs on 11-09-2023 Interpretation and review of laboratory results Abnormal [facility] Bacteria identified Cx Nom ( Bld)Ordered By: Rosa Johnson on 11-09-2023 Interpretation and review of laboratory results Abnormal [facility] Blood Collection Sit e: Left Antecubital [facility] CARECOORDon 11-09-2023 [facility] Updated notes sent [facility] via [employer] per TCC request. Await review and response regarding ability to accept. TCC notified. Normal [facility] CARECOORD Normal [facility] CBC W Auto Differential pane l (Bld)Ordered By: Sandy Ku on 11-09-2023 Basophils (Bld) [#/Vol] 0.0 10*3/uL 0.0 - 0.2 10*3/uL [facility] Basophils/100 WBC (Bld) 0.3 % 0.0 - 2.0 % [facility] Eosinophils (Bld) [#/Vol] 0.3 10*3/uL 0.0 - 0.5 10*3/uL [facility] Eosinophils/100 WBC (Bld) 1.9 % 1.0 - 6.0 % [facility] Erythrocyte distribution width (RBC) [Ratio] 19.4 % High 11.5 - 14.5 % [facility] Hematocrit (Bld) [Volume fraction] 21.6 % Low 35.0 - 47.0 % [facility] Hemoglobin (Bld) [Mass/Vol] 7.1 g/dL Low 11.7 - 16.0 g/dL [facility] Interpretation and review of laboratory results Abnormal [facility] Lymphocytes (Bld) [#/Vol] 1.2 10*3/uL 1.0 - 4.3 10*3/uL [facility] Lymphocytes/100 WBC (Bld) 9.2 % Low 20.0 - 40.0 % [facility] MCH (RBC) [Entitic mass] 26.8 pg 26.0 - 34.0 pg [facility] MCHC (RBC) [Mass/Vol] 32.6 % 32.0 - 36.0 % [facility] MCV (RBC) [Entitic vol] 82.2 fL 80.0 - 98.0 fL [facility] Monocytes (Bld) [#/Vol] 0.8 10*3/uL 0.0 - 0.8 10*3/uL [facility] Monocytes/100 WBC (Bld) 6.0 % 2.0 - 10.0 % [facility] Neutrophils (Bld) [#/Vol] 11.1 10*3/uL High 1.8 - 7.0 10*3/uL [facility] Neutrophils/100 WBC (Bld) 82.6 % High 40.0 - 80.0 % [facility] Nucleated RBC/100 WBC (Bld) [Ratio] 0.0 % [facility] Platelet mean volume (Bld) [Entitic vol] 7.4 fL 7.4 - 12.4 fL [facility] Platelets (Bld) [#/Vol] 502 10*3/uL High 140 - 440 10*3/uL [facility] RBC (Bld) [#/Vol] 2.63 10*6/uL Low 3.8 - 5.20 10*6/uL [facility] WBC (Bld) [#/Vol] 13.5 10*3/uL High 3.6 - 10.7 10*3/uL [facility] CBC WITH AUTO DIFFERENTIALon 11-09-2023 Basophils (Bld) [#/Vol] 0.0 10*3/uL Normal 0.0-0.2 [facility] Comment on above: Performed By: #### L [id number] ####Chief Information Officer: FREDRICK KHAN ([id number])[facility] ([facility])[address] [place] [address] Basophils/100 WBC (Bld) 0.3 % Normal 0.0-2.0 [facility] Comment on above: Performed By: #### L [id number] ####Chief Information Officer: FREDRICK [id number])[facility] (SBHLAB)[address] Eosinophils (Bld) [#/Vol] 0.3 10*3/uL Normal 0.0-0.5 [facility] Comment on above: Performed By: #### L [id number] ####Chief Information Officer: FREDRICK RAMOSSATINDER ([id number])[facility] (SBHLAB)[address] Eosinophils/100 WBC (Bld) 1.9 % Normal 1.0-6.0 [facility] Comment on above: Performed By: #### L [id number] ####Chief Information Officer: FREDRICK KHAN ([id number])[facility] [place] (SB[facility])[address] Erythrocyte distribution width (RBC) [Ratio] 19.4 % High 11.5-14.5 [facility] Comment on above: Performed By: #### L [id number] ####Chief Information Officer: FREDRICK RAMOSSATINDER ([id number])[facility] [place] (SBHLAB)[address] ERYTHROCYTE MEAN CORPUSCULAR HEMOGLOBIN CONCENTRATION (G/DL) BY AUTOMATED 32.6 % Normal 32.0-36.0 [facility] Comment on above: Performed By: #### L [id number] ####Chief Information Officer: FREDRICK KHAN ([id number])[facility] [place] (SBHLAB)[address] Hematocrit (Bld) [Volume fraction] 21.6 % Low 35.0-47.0 [facility] Comment on above: Performed By: #### L [id number] ####Chief Information Officer: FREDRICK KHAN ([id number])[facility] [place] (SB[facility])[address] Hemoglobin (Bld) [Mass/Vol] 7.1 g/dL Low 11.7-16.0 [facility] Comment on above: Performed By: #### L [id number] ####Chief Information Officer: FREDRICK KHAN ([id number])[facility] CENTERMaik HINSONPRESBYTERIAN SANTA FE MEDICAL CENTERDinesh (SBHLAB)[address] Lymphocytes (Bld) [#/Vol] 1.2 10*3/uL Normal 1.0-4.3 [facility] Comment on above: Performed By: #### L [id number] ####Chief Information Officer: FREDRICK KHAN ([id number])[facility] CENTERMaik [facility]HAV[facility] (SBHLAB)[address] Lymphocytes/100 WBC (Bld) 9.2 % Low 20.0-40.0 [facility] Comment on above: Performed By: #### L [id number] ####Chief Information Officer: FREDRICK KHAN ([id number])[facility]ENTER[facility] [place] ([facility] MCH (RBC) [Entitic mass] 26.8 pg Normal 26.0-34.0 [facility] Comment on above: Performed By: #### L [id number] ####Chief Information Officer: FREDRICK KHAN ([id number])[facility]ENTER[facility] ([facility] MCV (RBC) [Entitic vol] 82.2 fL Normal 80.0-98.0 [facility] Comment on above: Performed By: #### L [id number] ####Chief Information Officer: FREDRICK BILL ([id number])[facility]ENTERMa[facility] [place] (SBHLAB)[address] Monocytes (Bld) [#/Vol] 0.8 10*3/uL Normal 0.0-0.8 [facility] Comment on above: Performed By: #### L [id number] ####Chief Information Officer: FREDRICK BILL ([id number])[facility]ENTERMaik [place] (SBHLAB)[address] Monocytes/100 WBC (Bld) 6.0 % Normal 2.0-10.0 [facility] Comment on above: Performed By: #### L [id number] ####Chief Information Officer: FREDRICK MONROYNehalSATINDER ([id number])[facility] (SBHLAB)[address] [place] [address] [place] Neutrophils (Bld) [#/Vol] 11.1 10*3/uL High 1.8-7.0 [facility] Comment on above: Performed By: #### L [id number] ####Chief Information Officer: FREDRICK RAMOSSATINDER ([id number])[facility] [place] (SB[facility])[address] Neutrophils/100 WBC (Bld) 82.6 % High 40.0-80.0 [facility] Comment on above: Performed By: #### L [id number] ####Chief Information Officer: FREDRICK MONROYCAROLINA ([id number])[facility] [place] (SB[facility]AB)[address] NRBC (PER 100 WBCS) BY AUTOMATED COUNT 0.0 /100 WBCs Normal 0.0-2.0 [facility] Comment on above: Performed By: #### L [id number] ####Chief Information Officer: FREDRICK RAMOSSATINDER ([id number])[facility] [place] (SB[facility])[address] Platelet mean volume (Bld) [Entitic vol] 7.4 fL Normal 7.4-12.4 [facility] Comment on above: Performed By: #### L [id number] ####Chief Information Officer: FREDRICK KHAN ([id number])[facility] [place] (SBHL[facility])[address] [place] [address] [place] Platelets (Bld) [#/Vol] 502 10*3/uL High 140-440 [facility] Comment on above: Performed By: #### L [id number] ####Chief Information Officer: FREDRICK RAMOSSATINDER ([id number])[facility] [place] (SB[facility]AB)[address] [place] [address] [place] RBC (Bld) [#/Vol] 2.63 10*6/uL Low 3.8-5.20 [facility] Comment on above: Performed By: #### L [id number] ####Chief Information Officer: FREDRICK KHAN ([id number])[facility] [place] (SBHLAB)[address] WBC (Bld) [#/Vol] 13.5 10*3/uL High 3.6-10.7 [facility] Comment on above: Performed By: #### L [id number] ####Chief Information Officer: FREDRICK KHAN ([id number])[facility] [place] (SB[facility])[address] COMPREHENSIVE METABOLIC PANE Miles 11-09-2023 Albumin [Mass/Vol] 2.3 g/dL Low 3.5-5.0 [facility] Comment on above: Performed By: #### L AB17, [id number] ####Chief Information Officer: FREDRICK KHAN ([id number])[facility]ENTERMaik [place]ERT[place] (SBHLAB)[address] ALP [Catalytic activity/Vol] 75 U/L Normal 38-126 [facility] Comment on above: Performed By: #### L AB17, [id number] ####Chief Information Officer: FREDRICK KHAN ([id number])[facility] [place] (SB[facility]AB)[address] ALT [Catalytic activity/Vol] 12 U/L Normal 0-34 [facility] Comment on above: Performed By: #### L AB17, [id number] ####Chief Information Officer: FREDRICK KHAN ([id number])[facility] [place] (SB[facility])[address] Anion gap [Moles/Vol] 1 mmol/L Low 3-13 [facility] Comment on above: Performed By: #### L AB17, [id number] ####Chief Information Officer: FREDRICK KHAN ([id number])[facility] [place] (SB[facility])[address] AST [Catalytic activity/Vol] 20 U/L Normal 15-46 [facility] Comment on above: Performed By: #### L AB17, [id number] ####Chief Information Officer: FREDRICK KHAN ([id number])[facility] [place] (SB[facility])[address] Bilirubin [Mass/Vol] 0.3 mg/dL Normal 0.2-1.3 [facility] Comment on above: Performed By: #### L AB17, [id number] ####Chief Information Officer: FREDRICK KHAN ([id number])[facility] [place] ([facility])[address] Calcium [Mass/Vol] 7.8 mg/dL Low 8.4-10.4 [facility] Comment on above: Performed By: #### L AB17, [id number] ####Chief Information Officer: FREDRICK KHAN ([id number])[facility] [place] ([facility])[address] Chloride [Moles/Vol] 108 mmol/L High 98-107 [facility] Comment on above: Performed By: #### L AB17, [id number] ####Chief Information Officer: FREDRICK KHAN ([id number])[facility] [place] ([facility])[address] CO2 [Moles/Vol] 25 mmol/L Normal 22-30 [facility] Comment on above: Performed By: #### L AB17, [id number] ####Chief Information Officer: FREDRICK KHAN ([id number])[facility] [place] ([facility])[address] Creatinine [Mass/Vol] 0.39 mg/dL Low 0.52-1.04 [facility] Comment on above: Performed By: #### L AB17, [id number] ####Chief Information Officer: FREDRICK KHAN ([id number])[facility] [place] ([facility])[address] GLOMERULAR FILTRATION RATE ML/MIN/1.73 SQ M.PREDICTED >90.0 Normal >60.0 [facility] Comment on above: Result Comment: Calc ulation based on the Chronic Kidney Disease Epidemiology Collaboration (CKD-EPI) equation refit without adjustment for race Performed By: #### L AB17, [id number] ####Chief Information Officer: FREDRICK KHAN ([id number])[facility] (SB[facility]AB)[address] Glucose [Mass/Vol] 115 mg/dL High 70-100 [facility] Comment on above: Performed By: #### L AB17, [id number] ####Chief Information Officer: FREDRICK KHAN ([id number])[facility] [place] (SB[facility])[address] Potassium [Moles/Vol] 3.3 mmol/L Low 3.5-5.1 [facility] Comment on above: Performed By: #### L 17, [id number] ####Chief Information Officer: FREDRICK KHAN ([id number])[facility] CENTERMaik [place] (SBHLAB)[address] Protein [Mass/Vol] 5.1 g/dL Low 6.3-8.2 [facility] Comment on above: Performed By: #### L 17, [id number] ####Chief Information Officer: FREDRICK KHAN ([id number])[facility] [place] ([facility])[address] Sodium [Moles/Vol] 134 mmol/L Low 135-145 [facility] Comment on above: Performed By: #### L AB17, [id number] ####Chief Information Officer: FREDRICK KHAN ([id number])[facility] [place] (SB[facility])[address] [place] [address] [place] Urea nitrogen [Mass/Vol] 5 mg/dL Low 7-17 [facility] Comment on above: Performed By: #### L AB17, [id number] ####Chief Information Officer: FREDRICK KHAN ([id number])[facility] [place] (SB[facility])[address] Comprehensive metabolic 1998 panelon 11-09-2023 Albumin [Mass/Vol] 2.3 g/dL Low 3.5 - 5.0 g/dL [facility] ALP [Catalytic activity/Vol] 75 U/L 38 - 126 U/L [facility] ALT [Catalytic activity/Vol] 12 U/L 0 - 34 U/L [facility] Anion gap [Moles/Vol] 1 mmol/L Low 3 - 13 mmol/L [facility] AST [Catalytic activity/Vol] 20 U/L 15 - 46 U/L [facility] Bilirubin [Mass/Vol] 0.3 mg/dL 0.2 - 1 .3 mg/dL [facility] Calcium [Mass/Vol] 7.8 mg/dL Low 8.4 - 10. 4 mg/dL [facility] Chloride [Moles/Vol] 108 mmol/L High 98 - 10 7 mmol/L [facility] CO2 [Moles/Vol] 25 mmol/L 22 - 30 mmol/L [facility] Creatinine [Mass/Vol] 0.39 mg/dL Low 0.52 - 1.04 mg/dL [facility] GFR/1.73 sq M.predicted MDRD (S/P/Bld) [Vol rate/Area] - PINF [facility] Comment on above: Calculation based on the Chronic Kidney Disease Epidemiology Collaboration (CKD-EPI) equation refit without adjustment for race Glucose [Mass/Vol] 115 mg/dL High 70 - 100 mg/dL [facility] Interpretation and review of laboratory results Abnormal [facility] Potassium [Moles/Vol] 3.3 mmol/L Low 3.5 - 5.1 mmol/L [facility] Protein [Mass/Vol] 5.1 g/dL Low 6.3 - 8.2 g/dL [facility] Sodium [Moles/Vol] 134 mmol/L Low 135 - 145 mmol/L [facility] Urea nitrogen [Mass/Vol] 5 mg/dL Low 7 - 17 mg/dL [facility] IDNon 11-09-2023 IDN Normal [facility] Laboratory - Chemistry and C hemistry - challengeon 11-09-2023 Magnesium [Mass/Vol] 1.9 mg/dL 1.6 - 2 .3 mg/dL [facility] Laboratory - Microbiology an d Antimicrobial susceptibilityOrdered By: Rosa Johnson on 11-09-2023 Bacteria identified Cx Nom (Bld) Bacteroides fragilis group Critically abnormal [facility] Laboratory - Microbiology an d Antimicrobial susceptibilityOrdered By: Joaquin Riggs on 11-09-2023 Bacteria identified Anaer cx Nom (Unsp spec) Moderate Bacteroides fragilis group Abnormal [facility] MAGNESIUMon 11-09-2023 Magnesium [Mass/Vol] 1.9 mg/dL Normal 1.6-2.3 [facility] Comment on above: Performed By: #### L AB17, [id number] ####Chief Information Officer: FREDRICK KHAN ([id number])[facility] (SBAB)[address] [place] [address] Magnesium [Mass/Vol]on 11-09 Interpretation and review of laboratory results Normal [facility] Progress Noteon 11-09-2023 Progress Note Patient refused to t luma ordered Metronidazole tablet and after explanation of it's use. Her and spouse state that she took that medication before when she had hip replacement and it made her vomit. Dr. Dai notified by secure chat. Normal [facility] Progress Note Normal [facility] Progress Note OCCUPATIONAL THERAPY [facility] Name/MRN: Priscila Cha ([id number]) Date: 11/09/2023 Chart reviewed. Pt refused therapy at this date d/t pain in abdomin. Pt rates current pain at a 10. Will attempt if schedule permits. MEREDITH Alcantar Normal [facility] Progress Note Normal [facility] Progress Note Normal [facility] CBC W Auto Differential pane l (Bld)on 11-08-2023 Basophils (Bld) [#/Vol] 0.0 10*3/uL 0.0 - 0.2 10*3/uL [facility] Basophils/100 WBC (Bld) 0.3 % 0.0 - 2.0 % [facility] Eosinophils (Bld) [#/Vol] 0.2 10*3/uL 0.0 - 0.5 10*3/uL [facility] Eosinophils/100 WBC (Bld) 1.3 % 1.0 - 6.0 % [facility] Erythrocyte distribution width (RBC) [Ratio] 18.4 % High 11.5 - 14.5 % [facility] Hematocrit (Bld) [Volume fraction] 25.7 % Low 35.0 - 47.0 % [facility] Hemoglobin (Bld) [Mass/Vol] 8.6 g/dL Low 11.7 - 16.0 g/dL [facility] Interpretation and review of laboratory results Abnormal [facility] Lymphocytes (Bld) [#/Vol] 1.6 10*3/uL 1.0 - 4.3 10*3/uL [facility] Lymphocytes/100 WBC (Bld) 11.9 % Low 20.0 - 40.0 % [facility] MCH (RBC) [Entitic mass] 25.9 pg Low 26.0 - 34.0 pg [facility] MCHC (RBC) [Mass/Vol] 33.3 % 32.0 - 36.0 % [facility] MCV (RBC) [Entitic vol] 77.7 fL Low 80.0 - 98.0 fL [facility] Monocytes (Bld) [#/Vol] 0.9 10*3/uL High 0.0 - 0.8 10*3/uL [facility] Monocytes/100 WBC (Bld) 6.7 % 2.0 - 10.0 % [facility] Neutrophils (Bld) [#/Vol] 10.4 10*3/uL High 1.8 - 7.0 10*3/uL [facility] Neutrophils/100 WBC (Bld) 79.8 % 40.0 - 80.0 % [facility] Nucleated RBC/100 WBC (Bld) [Ratio] 0.0 % [facility] Platelet mean volume (Bld) [Entitic vol] 7.2 fL Low 7.4 - 12.4 fL [facility] Platelets (Bld) [#/Vol] 595 10*3/uL High 140 - 440 10*3/uL [facility] RBC (Bld) [#/Vol] 3.31 10*6/uL Low 3.8 - 5.20 10*6/uL [facility] WBC (Bld) [#/Vol] 13.0 10*3/uL High 3.6 - 10.7 10*3/uL [facility] CBC WITH AUTO DIFFERENTIALon 11-08-2023 Basophils (Bld) [#/Vol] 0.0 10*3/uL Normal 0.0-0.2 [facility] Comment on above: Performed By: #### L [id number] ####Chief Information Officer: FREDRICK KHAN ([id number])[facility] [place] ([facility])[address] Basophils/100 WBC (Bld) 0.3 % Normal 0.0-2.0 [facility] Comment on above: Performed By: #### L [id number] ####Chief Information Officer: FREDRICK KHAN ([id number])[facility] [place] ([facility])[address] Eosinophils (Bld) [#/Vol] 0.2 10*3/uL Normal 0.0-0.5 [facility] Comment on above: Performed By: #### L [id number] ####Chief Information Officer: FREDRICK KHAN ([id number])[facility] [place] ([facility])[address] [place] [address] Eosinophils/100 WBC (Bld) 1.3 % Normal 1.0-6.0 [facility] Comment on above: Performed By: #### L [id number] ####Chief Information Officer: FREDRICK KHAN ([id number])[facility] [place] ([facility])[address] [place] [address] Erythrocyte distribution width (RBC) [Ratio] 18.4 % High 11.5-14.5 [facility] Comment on above: Performed By: #### L [id number] ####Chief Information Officer: FREDRICK KHAN ([id number])[facility] [place] ([facility])[address] [place] [address] ERYTHROCYTE MEAN CORPUSCULAR HEMOGLOBIN CONCENTRATION (G/DL) BY AUTOMATED 33.3 % Normal 32.0-36.0 [facility] Comment on above: Performed By: #### L [id number] ####Chief Information Officer: FREDRICK KHAN ([id number])[facility] [place] ([facility])[address] [place] [address] Hematocrit (Bld) [Volume fraction] 25.7 % Low 35.0-47.0 [facility] Comment on above: Performed By: #### L [id number] ####Chief Information Officer: FREDRICK KHAN ([id number])[facility] CENTERMaik [place] (SBHLAB)[address] Hemoglobin (Bld) [Mass/Vol] 8.6 g/dL Low 11.7-16.0 [facility] Comment on above: Performed By: #### L [id number] ####Chief Information Officer: FREDRICK RAMOSSATINDER ([id number])[facility] [place] ([facility])[address] Lymphocytes (Bld) [#/Vol] 1.6 10*3/uL Normal 1.0-4.3 [facility] Comment on above: Performed By: #### L [id number] ####Chief Information Officer: FREDRICK MONROYCAROLINA ([id number])[facility] [place] [address] Lymphocytes/100 WBC (Bld) 11.9 % Low 20.0-40.0 [facility] Comment on above: Performed By: #### L [id number] ####Chief Information Officer: FREDRICK RAMOSSATINDER ([id number])[facility] [place] (SB[facility])[address] MCH (RBC) [Entitic mass] 25.9 pg Low 26.0-34.0 [facility] Comment on above: Performed By: #### L [id number] ####Chief Information Officer: FREDRIKC RAMOSSATINDER ([id number])[facility] [place] ([facility])[address] [place] [address] MCV (RBC) [Entitic vol] 77.7 fL Low 80.0-98.0 [facility] Comment on above: Performed By: #### L [id number] ####Chief Information Officer: FREDRICK KHAN ([id number])[facility] (SBHLAB)[address] Monocytes (Bld) [#/Vol] 0.9 10*3/uL High 0.0-0.8 [facility] Comment on above: Performed By: #### L [id number] ####Chief Information Officer: FREDRICK KHAN ([id number])[facility] [place] (SBHLAB)[address] Monocytes/100 WBC (Bld) 6.7 % Normal 2.0-10.0 [facility] Comment on above: Performed By: #### L [id number] ####Chief Information Officer: FREDRICK KHAN ([phone])[facility] [place] (SB[facility]AB)[address] Neutrophils (Bld) [#/Vol] 10.4 10*3/uL High 1.8-7.0 [facility] Comment on above: Performed By: #### L [id number] ####Chief Information Officer: FREDRICK KHAN ([id number])[facility] [place] (SB[facility]AB)[address] Neutrophils/100 WBC (Bld) 79.8 % Normal 40.0-80.0 [facility] Comment on above: Performed By: #### L [id number] ####Chief Information Officer: FREDRICK KHAN ([id number])[facility] [place] (SBHLAB)[address] NRBC (PER 100 WBCS) BY AUTOMATED COUNT 0.0 /100 WBCs Normal 0.0-2.0 [facility] Comment on above: Performed By: #### L [id number] ####Chief Information Officer: FREDRICK KHAN ([id number])[facility] [place] (SB[facility])[address] Platelet mean volume (Bld) [Entitic vol] 7.2 fL Low 7.4-12.4 [facility] Comment on above: Performed By: #### L [id number] ####Chief Information Officer: FREDRICK KHAN ([id number])[facility] (SBHLAB)[address] [place] [address] [place] Platelets (Bld) [#/Vol] 595 10*3/uL High 140-440 [facility] Comment on above: Performed By: #### L [id number] ####Chief Information Officer: FREDRICK KHAN ([id number])[facility] [place] ([facility])[address] RBC (Bld) [#/Vol] 3.31 10*6/uL Low 3.8-5.20 [facility] Comment on above: Performed By: #### L [id number] ####Chief Information Officer: FREDRICK KHAN ([id number])[facility] [place] ([facility])[address] WBC (Bld) [#/Vol] 13.0 10*3/uL High 3.6-10.7 [facility] Comment on above: Performed By: #### L [id number] ####Chief Information Officer: FREDRICK KHAN ([id number])[facility] [place] ([facility])[address] COMPREHENSIVE METABOLIC PANE Miles 11-08-2023 Albumin [Mass/Vol] 2.5 g/dL Low 3.5-5.0 [facility] Comment on above: Performed By: #### L AB103, LAB17 ####Chief Information Officer: FREDRICK KHAN ([id number])[facility] [place] ([facility])[address] ALP [Catalytic activity/Vol] 78 U/L Normal 38-126 [facility] Comment on above: Performed By: #### L AB103, LAB17 ####Chief Information Officer: FREDRICK KHAN ([id number])[facility] [place] ([facility])[address] ALT [Catalytic activity/Vol] 15 U/L Normal 0-34 [facility] Comment on above: Performed By: #### L AB103, LAB17 ####Chief Information Officer: FREDRICK KHAN ([id number])[facility] [place] ([facility])[address] Anion gap [Moles/Vol] 3 mmol/L Normal 3-13 [facility] Comment on above: Performed By: #### L AB103, LAB17 ####Chief Information Officer: FREDRICK KHAN ([id number])[facility] [place] ([facility])[address] AST [Catalytic activity/Vol] 30 U/L Normal 15-46 [facility] Comment on above: Performed By: #### L AB103, LAB17 ####Chief Information Officer: FREDRICK KHAN ([id number])[facility] [place] (SB[facility])[address] Bilirubin [Mass/Vol] 0.5 mg/dL Normal 0.2-1.3 [facility] Comment on above: Performed By: #### L AB103, LAB17 ####Chief Information Officer: FREDRICK KHAN ([phone])[facility] [place] (SB[facility])[address] Calcium [Mass/Vol] 8.0 mg/dL Low 8.4-10.4 [facility] Comment on above: Performed By: #### L AB103, LAB17 ####Chief Information Officer: FREDRICK KHAN ([phone])[facility] [place] (SB[facility]AB)155 [place] [address] [place] Chloride [Moles/Vol] 105 mmol/L Normal 98-107 [facility] Comment on above: Performed By: #### L AB103, LAB17 ####Chief Information Officer: FREDRICK KHAN ([phone])[facility] [place] (SB[facility]AB)155 [place] [address] [place] CO2 [Moles/Vol] 27 mmol/L Normal 22-30 [facility] Comment on above: Performed By: #### L AB103, LAB17 ####Chief Information Officer: FREDRICK KHAN ([id number])[facility] [place] (SB[facility]AB)155 [place] [address] [place] Creatinine [Mass/Vol] 0.42 mg/dL Low 0.52-1.04 [facility] Comment on above: Performed By: #### L AB103, LAB17 ####Chief Information Officer: FREDRICK KHAN ([id number])[facility] (SBHLAB)[address] GLOMERULAR FILTRATION RATE ML/MIN/1.73 SQ M.PREDICTED >90.0 Normal >60.0 [facility] Comment on above: Result Comment: Calc ulation based on the Chronic Kidney Disease Epidemiology Collaboration (CKD-EPI) equation refit without adjustment for race Performed By: #### L SYLWIA, [id number] ####Chief Information Officer: FREDRICK KHAN ([phone])[facility] (SBAB)[address] Glucose [Mass/Vol] 120 mg/dL High 70-100 [facility] Comment on above: Performed By: #### L AB103, LAB17 ####Chief Information Officer: FREDRICK KHAN ([id number])[facility] (SBHLAB)[address] Potassium [Moles/Vol] 2.7 mmol/L Low 3.5-5.1 [facility] Comment on above: Performed By: #### L [id number], LAB17 ####Chief Information Officer: FREDRICK KHAN ([phone])[facility] (SBHLAB)[address] Protein [Mass/Vol] 5.6 g/dL Low 6.3-8.2 [facility] Comment on above: Performed By: #### L AB103, LAB17 ####Chief Information Officer: FREDRICK KHAN ([id number])[facility] (SBHLAB)[address] Sodium [Moles/Vol] 135 mmol/L Normal 135-145 [facility] Comment on above: Performed By: #### L AB103, LAB17 ####Chief Information Officer: FREDRICK KHAN ([id number])[facility] [place] (SBHLAB)[address] Urea nitrogen [Mass/Vol] 4 mg/dL Low 7-17 [facility] Comment on above: Performed By: #### L AB103, LAB17 ####Chief Information Officer: FREDRICK KHAN ([id number])[facility] (SBHLAB)[address] Comprehensive metabolic 1998 panelon 11-08-2023 Albumin [Mass/Vol] 2.5 g/dL Low 3.5 - 5.0 g/dL [facility] ALP [Catalytic activity/Vol] 78 U/L 38 - 126 U/L [facility] ALT [Catalytic activity/Vol] 15 U/L 0 - 34 U/L [facility] Anion gap [Moles/Vol] 3 mmol/L 3 - 13 mmol/L [facility] AST [Catalytic activity/Vol] 30 U/L 15 - 46 U/L [facility] Bilirubin [Mass/Vol] 0.5 mg/dL 0.2 - 1 .3 mg/dL [facility] Calcium [Mass/Vol] 8.0 mg/dL Low 8.4 - 10. 4 mg/dL [facility] Chloride [Moles/Vol] 105 mmol/L 98 - 10 7 mmol/L [facility] CO2 [Moles/Vol] 27 mmol/L 22 - 30 mmol/L [facility] Creatinine [Mass/Vol] 0.42 mg/dL Low 0.52 - 1.04 mg/dL [facility] GFR/1.73 sq M.predicted MDRD (S/P/Bld) [Vol rate/Area] - PINF [facility] Comment on above: Calculation based on the Chronic Kidney Disease Epidemiology Collaboration (CKD-EPI) equation refit without adjustment for race Glucose [Mass/Vol] 120 mg/dL High 70 - 100 mg/dL [facility] Interpretation and review of laboratory results Abnormal [facility] Potassium [Moles/Vol] 2.7 mmol/L Low 3.5 - 5.1 mmol/L [facility] Protein [Mass/Vol] 5.6 g/dL Low 6.3 - 8.2 g/dL [facility] Sodium [Moles/Vol] 135 mmol/L 135 - 145 mmol/L [facility] Urea nitrogen [Mass/Vol] 4 mg/dL Low 7 - 17 mg/dL [facility] - Chemistry and C hemistry - challengeon 11-08-2023 Magnesium [Mass/Vol] 1.8 mg/dL 1.6 - 2 .3 mg/dL [facility] MAGNESIUMon 11-08-2023 Magnesium [Mass/Vol] 1.8 mg/dL Normal 1.6-2.3 [facility] Comment on above: Performed By: #### L AB103, LAB17 ####Chief Information Officer: FREDRICK KHAN ([id number])[facility] ([facility])[address] [place] [address] Magnesium [Mass/Vol]on 11-08 Interpretation and review of laboratory results Normal [facility] No Panel InformationOrdered By: Berry Christie on 11-08-2023 Case Report Surgical Pathology Case: [id number] Authorizing Provider: Adria Lopez MD Collected: 11/04/2023234 Ordering Location: [facility] MAIN OR Received: 11/04/2023404 Pathologist: Berry Christie MD Specimens: A) - Colon, RECTAL STUMP B) - Large Intestine, Sigmoid Colon, SIGMOID COLON - STITCH JIMENES DISTAL END [facility] Work Phone: Clinical Information w8abyAXvUGYdqGOqNSC wNVx smrUdARRlfIZrY5BxiiqkAW pgYY9kHG5yoOcuqDGxaCYlL COrAfZaa1vqv855aSFtl6kl OBNJXOqnZBGHKSe2qUmrX16 lp6A5HbhrZ8zkFHJdHJboTO MdFGjrfTMqLKmeyxQsUtY6G AjkLJXtRzB1UJFhjWRwKCW4 lJlqAUVjulbgVmL7XCghISD ssvkpINc5QMfyYYYceGW3IY SexWGbS1GhPYMhTJ4ekgp7S KW1GNbhQIFiCtD9YWJwdHRg XCTzeKjdOWous804LRQ4GmY wXHBhcmRccmkxXHBsYWluXG RaGaXpY9DwKWAbI1UsSHPsH JyziSRvzUxbPGarr7VouUQ1 Q5Unc83zSRCcn0TjC6uwuLC yRHPhoNHkBOD2naReIQJhXp jsAUM7tCC6tEYbGNNeykBaI Lnzl3ZfQ90muKiyvGZfCUoY CtpzA0g2Qu07NEntXUWgdm0 = [facility] [employer] Work Phone: Disclaimer p0nxeLBkQPKuoZEmNzQt MDA dGAWrp2nnFCBkjHSeGtGxRo NcZnRuYmpcdWMxXGRlZmYwe 1jhj569hZMav8siAYBoEpY7 qYIeDYRhJ94mQHHWZ430CLD zSIihh3pos1RhRZZjmTBgo2 X2CDBKUGcrMCIQTNc2eJhaP 12an4O9TntfY9sjVIFpHMMh B2MhEO2fBYHfHea5PZP2IUA 7JUEnAUXgK5MoSF7lBTWwwU UtVYc8v4imuLrcBLYeFPS9d 8avRGawjtIdQO0jrs9siTh0 h9acrcOcAHVzGDWniBKQFZF rL7OkfTycIt2mcGv6hLubHw pxXBE6Djy0EC4rbs50buf0x UrxMYFbhbliHoS0ULleNNAt gddoGJc1NRsnSHFbiQV7UYN vbSTgJ7NzJXMvCD4gaks8TL L9XTiqBYRiUaW4ARSeyPWaN PVwzEaoZZbyu311EFU0BpYq IS0wB4Rec6Q0wI8dnAQoYUM xuVMzVuYtAQVdav0vgZMgFV sxe5YrCRE8hpK1vYNerTTmI MLnFN00Jsfvr6LeMoepMBZ0 XAVrssEtk2Fou1cxYiPetnM uI9jsN6LhCBSoMBFuJFFaPz CutuOfv5Vlr9VovWUggSp8i 2wfJOTwRAVtbNbzn2suZXQ0 PPCuJ1V9nTVsm4oeRRfoRSG jhCV4tjW1CPDjgSUvZ8FdjQ 8uBROfPC4tzjy6h8sjGLH4B WnmNJEjPhG9mwW2RIUwnXUj YAAbtKtdOYgyn912SAK2QeN eTTCuu0QpG2PkhUcoD71hmV ycQ37hGDGtuGvteG9upCxmo J3kCtBgAiFgPVembNrewCMh aqxhRAauolA8WBxbwkmlQVI yPYkxS6etQkYaRLYurDrnBF exk7GzIVDgFJKuELGtGZvcZ 0jlvI0ucmozMYgqNPOiuXpm o7tgQjOcoOX3RN5aguKtCIS yjQxjyyL2nhUusPdvqM3csP 8cmJwmsE5zbTXuwGZ3xxubM GluIHNpdHUgaHlicmlkaXph wToadujrgE4hVFD2iEQuQFQ 8fRXqMUHiKQMrHEGqyX26mt 0kxGCenyIgO8EuP5ZbrFXoo IymPhhmaBUjeBRoYo6maFYn MK3eCIBeeAYlQ2DnNX0xCVK hclxwYXIgVGhlIHVzZSBvZi XmuqAci2VesI1vYRLdXCOpY Q22lpZwamK9kXWdARUuljPj dGVzdHMgaXMgcmVndWxhdGV kMDVsDKTmISIeURr2rSDit5 MkW0zlyWUqqwBuT8OvvMVxD AUUNQ2pKWahi4CqaPJaeMMg s4NkPGThFZXajF1gDRPaMV4 bPUEpCJxlJCNdqzMyzh4zcx DgAJZtHMSmC7LkkfywbItgh nTmQAHvub8jqcOsLKI4ARFm ZSBjbGluaWNhbCBsYWJvcmF 0w3CzBOThv8YyQ4BehNPnOA YphXZkNEA5n4XpbU0qAFurk HHtYWIvRF6knVAkJWRvIXQd ZWFyZWQgYnkgdGhlIFVTIEZ ue2RrDW4yOCVrlYbzHOHycW 2oa8GyXJAjt33gNOAVKUezU FRoZSBGREEgaGFzIGRldGVy bWluZWQgdGhhdCBzdWNoIGN jEIWtYM4lPVYrggTyiDUcg5 BebNAeouEfz6IwsiWgNNVwF MW6PgCbzRXhRCLyeuKKwVkl sB6tdQ9mw7ThmX3zNQlvgkO jcPDxXe8sqJIqAY9yLJKzkv FmZmluIGVtYmVkZGVkIHRpc 4Q8GE9qJXYwvi6sphranXTt sY6rwEGokjGjIB1rPF4mG0U 2eJTaJRTzthPur8owNPl4tG CqEECzbWVqnDGrZqcgZSA2S QLoFCG0fjLxfkEqBRVnxAqt bMV5eKHyRVBoEIXhKNHuZY1 7O1Cly8FjI2xjRW99ZDBzCB FmWAUapnMog8kuVLRgr4wzX NPklSGcV8PgKLSivEZdfpft FbCyAUF3NSZfBFF7yFVmEAF uH8XssUJsdSQawX09NL3qjM D7GZ3kRBF7RWavvL6dPmSBz S63nb2fzQD6x1TeTE5jQ4An FGYln7M9gwEzRUShHV2seHV iZWVuIHZhbGlkYXRlZCBvbi WuFFJljEJjRalaTKL2nPIog VHeLqWSHKF7nTHjOFNju8Pr ZCBiZSBpbnRlcnByZXRlZCB 5yRMuFEXilFNzv14bI0x3NJ 5dkDhmTWHvzEEoXUPgn9Xqd WBsmIr4uAByEwUxTRrpFXHt PFdpnZt4oQP0DY4aFCKkD9P aH8aicLHgARIhFSLzoKHyxm 5ccGFyfQ== [facility] Work Phone: Gross Description d0ybwGMwKXPxtFWmRXMo NVx zrwZuNRWdtGOeH9CnwlpyJU nvDI8lGI0nmMfxaLOqfYZgN IVxSpSlf9gsm359vOQlj1bi SQBJNJvcYWLTHXc7kWqkK76 yc0B8NeeuA70ecKEbHNG8TA HrHCQmmGCiIMHdSXC6QKGxe VPmO3txBVLvHG0rxvvfSXmx QNgvORWvpYK3DJMoeBCjJ3H zQBEoOZsrEQHjalc1LyVpWy 9vdGVyeTcyMFxwYXJkXHBsY BszZIYlCzSqQJ3ygYXbPYDk H2QwhpYdJShaUUEiue9ssCc tWLonArReONEkKiMpH9UloV XgmRSlpYGbnHVjYUGmp3J7d I7wDB9tZBKlw5DaFOVfDKYa iCGgp6RjAAScEOV8TYQgjGF jQkKcU96lNARDxNFcKXDjef PtgBgaMUJ6EDSvJNKpaQ5wd yBpZGVudGlmaWVkIHRoYXQg HAIrFQJitW90VOZlCBOIdMC as7BbY8vzGK1heDFna2EaiI WikIgzt9SakMfkwrVbYDKzN NVawpCgwYI5BC6uqZkkmlLg wTwfaIBxmD1pSA92H26zLIY 3pVB4PZwrBBYpqwNkKMZmTU LzER1dJFUtjJInt6NnqKD9j EBqPWZqC3Two29eMM2eWTGp HKGwrYUejF1wynDsvoFqy5O vgMp5pYFdFTfrAK9mLGYuYW GpFUH0KE3cgQJxMVEdlfKZP gn4TXCnHvIkLRv9XMPycQ8c Ok2zjQMoqA5pbPDsGYaqYZB ue2cwuK8nMQGjf4prwxYyfH NlGA9eu4QeZK17SVUtmG0cp YgyqbZgBoQprOohz9yqOPTd PZYvfFWyo6WnBBQwWKAmD85 iiT7tiZVuS9MmKXEhYSKqZP NeVOGxbXRngL9pXFHfbdVcE D4jAEPvWOQarA7jDVNeGCPw IVMko6TxhYBekUNzBCEbslw rmQ1irWTigCrfKIbduFmnbQ SidUiayLSuUFJdNSKpt1XcI 9AbdX85wNi6PUDfpCLmCTBy LOngXB47pMDoMUSiUNARoFY yk4FrL5uvGO6nxSTox5Gzzw NiJVWlIYWub2qqtDGoiKhjl PGqZKp9RED8bJS6jVguirWu W8smApKfemKenZjbTSYmp85 dCI35MZrkSC16ZTMdGL9xBt X0SMPbXQFgqW6oFYUlGTMqF WG7TZdkCAswXF82xJXwDXSy oFQrnpNlbf5acC8nFF2qQPF yXrF5nZDfZYq0KBR5wTU9gD KlRKNViQWtffCrFKnabX3gN R54H32dVVDiaxQ4BW4iqRyv dpbrU1lhm4ZhnpueMkXdywI eqI8cIT3ecfruFwqdUCojhE brUALtp4IxRXvxEh3rRAijU pFpSPH4JYZcVvYuHaErezLf FH85VKEulqZtg2YvuPbuumN ui8UtoOvhXIWePILltKYrTH QeXHDlsQTvjBN5KYXnmB6zW FLcX8Pxi7W8uKJwRFRhSIZf zPxyr0P4KWaxOBWldRHtBIY vo9OldWTiFII2vH1paou8PC KKWR1ZChTsKCAsg4khoGBvJ P4wmebtveKvoLF5JXPxRK3h MWLea0XwiEMfTRFmAEKbzPT yXZCiIX6jEjBzIU7mOBQnTL K4BV7gSEwlqZXoPK2lmutcz aMraDE5UWGsZI8aUWLuUOFx GPRqefRoATDkFGJbfZAfB2I zLO9pQRE2HWM1BD1eOBCoRH M3BpVeWqbgEsCiJN5pEsZxf pWyQQ68QQTyfzRxJBx3LUA7 jXF2bSZrQQXhfRHzjK== [employer] Work Phone: Pathologist Interpretation Location [facility], [address] [place] [address], [facility] [address], CLIA: [id number]; Joint Commission: [id number] [id number]; CAP: [id number] [facility] Lives[employer] Phone: Pathology report final diagnosis Narrative v7vusNHnLIYadFNrYWQtVUw cuaDeAMCxoPSqY2PqgridHH lvKH8uIK0pvRkhuJSydSOkX MOjJyHcq9pmp372uLCwg1ng EKBPURraDJYOANt4dStqZ21 di4H9RiwpS68muBWfQCI6RW AkCAYfaAMoRNFbEXY7HDUjn OZpH7tvPJXxPA9uksyhLAwm RRlqASUtkNG7HSCjaRRkK9X eOQGhQInbRFAcjnm0XhBqCh 9vdGVyeTcyMFxwYXJkXHBsY BkcTGXzPrJbVR5aFCZCA3JC GXrnTJbBIUPXK593QGYmhzk fgiKuz6trUTPTLH8RVOmSPP znJ3ULQ4YJXBtWMRQzjjdyG SVqLq6uNPYIOM7VFYVXYQfZ M4aKMEOEPDYNVZPLIYAVJQK DMK3KDWrjgTVzBHCoPNGabL QmY06XR44rQ0eGWUAUTYWJF wZQU9KERXXVHqIMApZvR3FE T2VKDPfCQAVgdz9= [facility] Work Phone: [facility] Work Phone: Progress Noteon 11-08-2023 Progress Note Normal [facility] Progress Note Normal [facility] Progress Note [facility] Progress Note [facility] Progress [facility] Bacteria identified Aer cx N om (Unsp spec)Ordered By: Digna Baez on 11-07-2023 Gram Stain Result Many Polymorphonucle ar leukocytes per low power field Abnormal [facility] Gram Stain Result Positive [facility] Gram Stain Result Rare Yeast Abnormal [facility] Interpretation and review of laboratory results [facility] Sent updated notes [facility] per [facility] request. Await review and response regarding ability to accept. TCC notified. Normal [facility]ORD Normal [facility] CBC W Auto Differential pane l (Bld)Ordered By: Thu Parsons on 11-07-2023 Basophils (Bld) [#/Vol] 0.1 10*3/uL 0.0 - 0.2 10*3/uL [facility] Basophils/100 WBC (Bld) 0.7 % 0.0 - 2.0 % [facility] Eosinophils (Bld) [#/Vol] 0.1 10*3/uL 0.0 - 0.5 10*3/uL [facility] Eosinophils/100 WBC (Bld) 1.0 % 1.0 - 6.0 % [facility] Erythrocyte distribution width (RBC) [Ratio] 18.8 % High 11.5 - 14.5 % [facility] Hematocrit (Bld) [Volume fraction] 23.3 % Low 35.0 - 47.0 % [facility] Hemoglobin (Bld) [Mass/Vol] 7.5 g/dL Low 11.7 - 16.0 g/dL [facility] Interpretation and review of laboratory results Abnormal [facility] Lymphocytes (Bld) [#/Vol] 1.1 10*3/uL 1.0 - 4.3 10*3/uL [facility] Lymphocytes/100 WBC (Bld) 9.2 % Low 20.0 - 40.0 % [facility] MCH (RBC) [Entitic mass] 25.7 pg Low 26.0 - 34.0 pg [facility] MCHC (RBC) [Mass/Vol] 32.0 % 32.0 - 36.0 % [facility] MCV (RBC) [Entitic vol] 80.2 fL 80.0 - 98.0 fL [facility] Monocytes (Bld) [#/Vol] 0.8 10*3/uL 0.0 - 0.8 10*3/uL [facility] Monocytes/100 WBC (Bld) 6.7 % 2.0 - 10.0 % [facility] Neutrophils (Bld) [#/Vol] 9.7 10*3/uL High 1.8 - 7.0 10*3/uL [facility] Neutrophils/100 WBC (Bld) 82.4 % High 40.0 - 80.0 % [facility] Nucleated RBC/100 WBC (Bld) [Ratio] 0.0 % [facility] Platelet mean volume (Bld) [Entitic vol] 7.3 fL Low 7.4 - 12.4 fL [facility] Platelets (Bld) [#/Vol] 555 10*3/uL High 140 - 440 10*3/uL [facility] RBC (Bld) [#/Vol] 2.91 10*6/uL Low 3.8 - 5.20 10*6/uL [facility] WBC (Bld) [#/Vol] 11.8 10*3/uL High 3.6 - 10.7 10*3/uL [facility] CBC WITH AUTO DIFFERENTIALon 11-07-2023 Basophils (Bld) [#/Vol] 0.1 10*3/uL Normal 0.0-0.2 [facility] Comment on above: Performed By: #### L [id number] ####Chief Information Officer: FREDRICK KHAN ([id number])[facility] (SBHLAB)[address] Basophils/100 WBC (Bld) 0.7 % Normal 0.0-2.0 [facility] Comment on above: Performed By: #### L [id number] ####Chief Information Officer: FREDRICK KHAN ([id number])[facility] (SBHLAB)[address] Eosinophils (Bld) [#/Vol] 0.1 10*3/uL Normal 0.0-0.5 [facility] Comment on above: Performed By: #### L [id number] ####Chief Information Officer: FREDRICK KHAN ([id number])[facility] (SBHLAB)[address] Eosinophils/100 WBC (Bld) 1.0 % Normal 1.0-6.0 [facility] Comment on above: Performed By: #### L [id number] ####Chief Information Officer: FREDRICK KHAN ([id number])[facility] (SBHLAB)[address] [place] [address] Erythrocyte distribution width (RBC) [Ratio] 18.8 % High 11.5-14.5 [facility] Comment on above: Performed By: #### L [id number] ####Chief Information Officer: FREDRICK KHAN ([id number])[facility] (SBHLAB)[address] ERYTHROCYTE MEAN CORPUSCULAR HEMOGLOBIN CONCENTRATION (G/DL) BY AUTOMATED 32.0 % Normal 32.0-36.0 [facility] Comment on above: Performed By: #### L [id number] ####Chief Information Officer: FREDRICK KHAN ([id number])[facility] (SBHLAB)[address] Hematocrit (Bld) [Volume fraction] 23.3 % Low 35.0-47.0 [facility] Comment on above: Performed By: #### L [id number] ####Chief Information Officer: FREDRICK KHAN ([id number])[facility] (SBHLAB)[address] Hemoglobin (Bld) [Mass/Vol] 7.5 g/dL Low 11.7-16.0 [facility] Comment on above: Performed By: #### L [id number] ####Chief Information Officer: FREDRICK KHAN ([id number])[facility] HINSONJUST[facility] (SBHLAB)[address] Lymphocytes (Bld) [#/Vol] 1.1 10*3/uL Normal 1.0-4.3 [facility] Comment on above: Performed By: #### L [id number] ####Chief Information Officer: FREDRICK KHAN ([id number])[facility]ENTER[facility] HINSONJUSTEN (SBHLAB)[address] [place] [address] Lymphocytes/100 WBC (Bld) 9.2 % Low 20.0-40.0 [facility] Comment on above: Performed By: #### L [id number] ####Chief Information Officer: FREDRICK KHAN ([id number])[facility] H[facility]SONJUST[facility] (SBHLAB)[address] MCH (RBC) [Entitic mass] 25.7 pg Low 26.0-34.0 [facility] Comment on above: Performed By: #### L [id number] ####Chief Information Officer: FREDRICK KHAN ([id number])[facility]ENTER[facility] H[facility]SONJUSTEN (SBHLAB)[address] MCV (RBC) [Entitic vol] 80.2 fL Normal 80.0-98.0 [facility] Comment on above: Performed By: #### L [id number] ####Chief Information Officer: FREDRICK KHAN ([id number])[facility] (SBHLAB)[address] Monocytes (Bld) [#/Vol] 0.8 10*3/uL Normal 0.0-0.8 [facility] Comment on above: Performed By: #### L [id number] ####Chief Information Officer: FREDRICK KHAN ([id number])[facility] (SBHLAB)[address] Monocytes/100 WBC (Bld) 6.7 % Normal 2.0-10.0 [facility] Comment on above: Performed By: #### L [id number] ####Chief Information Officer: FRDERICK KHAN ([id number])[facility] (SBHLAB)[address] Neutrophils (Bld) [#/Vol] 9.7 10*3/uL High 1.8-7.0 [facility] Comment on above: Performed By: #### L [id number] ####Chief Information Officer: FREDRICK KHAN ([id number])[facility] [place] (SBHLAB)[address] Neutrophils/100 WBC (Bld) 82.4 % High 40.0-80.0 [facility] Comment on above: Performed By: #### L [id number] ####Chief Information Officer: FREDRICK KHAN ([id number])[facility] [place] (SBHLAB)[address] NRBC (PER 100 WBCS) BY AUTOMATED COUNT 0.0 /100 WBCs Normal 0.0-2.0 [facility] Comment on above: Performed By: #### L [id number] ####Chief Information Officer: FREDRICK KHAN ([id number])[facility] [place] (SBHLAB)[address] Platelet mean volume (Bld) [Entitic vol] 7.3 fL Low 7.4-12.4 [facility] Comment on above: Performed By: #### L [id number] ####Chief Information Officer: FREDRICK SEYMOURCER ([id number])[facility] [place] (SBHLAB)[address] Platelets (Bld) [#/Vol] 555 10*3/uL High 140-440 [facility] Comment on above: Performed By: #### L [id number] ####Chief Information Officer: FREDRICK BILL ([id number])[facility] [place] (SBHLAB)[address] RBC (Bld) [#/Vol] 2.91 10*6/uL Low 3.8-5.20 [facility] Comment on above: Performed By: #### L [id number] ####Chief Information Officer: FREDRICK BILL ([id number])[facility] [place] (SBHLAB)[address] WBC (Bld) [#/Vol] 11.8 10*3/uL High 3.6-10.7 [facility] Comment on above: Performed By: #### L [id number] ####Chief Information Officer: FREDRICK BILL ([id number])[facility] ([facility])[address] COMPREHENSIVE METABOLIC PANE [place] 11-07-2023 Albumin [Mass/Vol] 2.3 g/dL Low 3.5-5.0 [facility] Comment on above: Performed By: #### L [id number], [id number] ####Chief Information Officer: FREDRICK RAMOSSATINDER ([id number])[facility] [place] (SB[facility]AB)[address] ALP [Catalytic activity/Vol] 68 U/L Normal 38-126 [facility] Comment on above: Performed By: #### L [id number], [id number] ####Chief Information Officer: FREDRICK KHAN ([id number])[facility] [place] (SB[facility]AB)[address] ALT [Catalytic activity/Vol] 16 U/L Normal 0-34 [facility] Comment on above: Performed By: #### L [id number], [id number] ####Chief Information Officer: FREDRICK KHAN ([id number])[facility] [place] (SBHLAB)[address] Anion gap [Moles/Vol] 3 mmol/L Normal 3-13 [facility] Comment on above: Performed By: #### L AB17, [id number] ####Chief Information Officer: FREDRICK KHAN ([id number])[facility]ENTERMaik HINSONPRESBYTERIAN [facility] (SB[facility]AB)[address] AST [Catalytic activity/Vol] 29 U/L Normal 15-46 [facility] Comment on above: Performed By: #### L AB17, [id number] ####Chief Information Officer: FREDRICK KHAN ([id number])[facility]ENTERMaik HINSONPRESBYTER[facility] (SBHLAB)[address] Bilirubin [Mass/Vol] 0.3 mg/dL Normal 0.2-1.3 [facility] Comment on above: Performed By: #### L AB17, [id number] ####Chief Information Officer: FREDRICK KHAN ([id number])[facility]ENTERMaik [facility]SONHAV[facility] (SBHLAB)[address] Calcium [Mass/Vol] 7.8 mg/dL Low 8.4-10.4 [facility] Comment on above: Performed By: #### L AB17, [id number] ####Chief Information Officer: FREDRICK KHAN ([id number])[facility]ENTERMaik HINSONPRESBYTERIAN [facility] (SB[facility]AB)[address] Chloride [Moles/Vol] 108 mmol/L High 98-107 [facility] Comment on above: Performed By: #### L AB17, [id number] ####Chief Information Officer: FREDRICK KHAN ([id number])[facility]ANPRESBYTER[facility] (SBHLAB)[address] CO2 [Moles/Vol] 23 mmol/L Normal 22-30 [facility] Comment on above: Performed By: #### L AB17, [id number] ####Chief Information Officer: FREDRICK KHAN ([id number])[facility] [place] (SBHLAB)[address] Creatinine [Mass/Vol] 0.44 mg/dL Low 0.52-1.04 [facility] Comment on above: Performed By: #### L AB17, [id number] ####Chief Information Officer: FREDRICK KHAN ([id number])[facility]ENTERMaik HINSONJUSTEN (SBHLAB)[address] GLOMERULAR FILTRATION RATE ML/MIN/1.73 SQ M.PREDICTED >90.0 Normal >60.0 [facility] Comment on above: Result Comment: Calc ulation based on the Chronic Kidney Disease Epidemiology Collaboration (CKD-EPI) equation refit without adjustment for race Performed By: #### L AB17, [id number] ####Chief Information Officer: FREDRICK KHAN ([id number])[facility]ENTERMaik HINSONJUSTEN (SBHLAB)[address] Glucose [Mass/Vol] 143 mg/dL High 70-100 [facility] Comment on above: Performed By: #### L AB17, [id number] ####Chief Information Officer: FREDRICK KHAN ([id number])[facility]ENTERMaik HINSONJUSTEN (SBHLAB)[address] Potassium [Moles/Vol] 3.5 mmol/L Normal 3.5-5.1 [facility] Comment on above: Performed By: #### L AB17, [id number] ####Chief Information Officer: FREDRICK KHAN ([id number])[facility]ENTERMaik HINSONJUSTEN (SBHLAB)155 [place] [address] [place] Protein [Mass/Vol] 5.2 g/dL Low 6.3-8.2 [facility] Comment on above: Performed By: #### L AB17, [id number] ####Chief Information Officer: FREDRICK KHAN ([id number])[facility]ENTERMaik HINSONJUSTEN (SBHLAB)155 [place] [address] [place] Sodium [Moles/Vol] 133 mmol/L Low 135-145 [facility] Comment on above: Performed By: #### L AB17, [id number] ####Chief Information Officer: FREDRICK KHAN ([id number])[facility] (SBHLAB)[address] Urea nitrogen [Mass/Vol] 16 mg/dL Normal 7-17 [facility] Comment on above: Performed By: #### L AB17, [id number] ####Chief Information Officer: FREDRICK KHAN ([id number])[facility] (SBHLAB)[address] Comprehensive metabolic 1998 panelon 11-07-2023 Albumin [Mass/Vol] 2.3 g/dL Low 3.5 - 5.0 g/dL [facility] ALP [Catalytic activity/Vol] 68 U/L 38 - 126 U/L [facility] ALT [Catalytic activity/Vol] 16 U/L 0 - 34 U/L [facility] Anion gap [Moles/Vol] 3 mmol/L 3 - 13 mmol/L [facility] AST [Catalytic activity/Vol] 29 U/L 15 - 46 U/L [facility] Bilirubin [Mass/Vol] 0.3 mg/dL 0.2 - 1 .3 mg/dL [facility] Calcium [Mass/Vol] 7.8 mg/dL Low 8.4 - 10. 4 mg/dL [facility] Chloride [Moles/Vol] 108 mmol/L High 98 - 10 7 mmol/L [facility] CO2 [Moles/Vol] 23 mmol/L 22 - 30 mmol/L [facility] Creatinine [Mass/Vol] 0.44 mg/dL Low 0.52 - 1.04 mg/dL [facility] GFR/1.73 sq M.predicted MDRD (S/P/Bld) [Vol rate/Area] - PINF [facility] Comment on above: Calculation based on the Chronic Kidney Disease Epidemiology Collaboration (CKD-EPI) equation refit without adjustment for race Glucose [Mass/Vol] 143 mg/dL High 70 - 100 mg/dL [facility] Interpretation and review of laboratory results Abnormal [facility] Potassium [Moles/Vol] 3.5 mmol/L 3.5 - 5.1 mmol/L [facility] Protein [Mass/Vol] 5.2 g/dL Low 6.3 - 8.2 g/dL [facility] Sodium [Moles/Vol] 133 mmol/L Low 135 - 145 mmol/L [facility] Urea nitrogen [Mass/Vol] 16 mg/dL 7 - 17 mg/dL [facility] Consulton 11-07-2023 Consult Normal [facility] Laboratory - Chemistry and C hemistry - challengeon 11-07-2023 Magnesium [Mass/Vol] 2.0 mg/dL 1.6 - 2 .3 mg/dL [facility] Laboratory - Microbiology an d Antimicrobial susceptibilityOrdered By: Digna Baez on 11-07-2023 Bacteria identified Aer cx Nom (Unsp spec) Few skin maya present [facility] Bacteria identified Aer cx Nom (Unsp spec) Few Escherichia coli Abnormal [facility] Comment on above: This phenotype is pal ggestive of an ESBL-producing organism. Treatment with beta-lactam antibiotics other than carbapenems may not be effective. Bacteria identified Aer cx Nom (Unsp spec) Few Enterococcus avium Abnormal [facility] MAGNESIUMon 11-07-2023 Magnesium [Mass/Vol] 2.0 mg/dL Normal 1.6-2.3 [facility] Comment on above: Performed By: #### L [id number], [id number] ####Chief Information Officer: FREDRICK KHAN ([id number])[facility] ([facility])[address] [place] [address] Magnesium [Mass/Vol]on 11-07 Interpretation and review of laboratory results Normal [facility] No Panel InformationOrdered By: Jie Moseley on 11-07-2023 Pathology Review Thrombocytosis. Leukocytosis with absolute mature neutrophilia and absolute lymphopenia. Occasional neutrophils show toxic granulation and/or cytoplasmic vacuoles. Microcytic anemia. Blasts are not identified. Richard Moseley DO. [facility] Work Phone: [facility] Work Phone: Progress Noteon 11-07-2023 Progress Note Normal [facility] Progress [facility] Normal [facility] Progress Note Normal [facility] CARECOORDon 11-06-2023 CARECOORD Normal [facility] CBC W Auto Differential pane l (Bld)Ordered By: Lisseth Mendieta on 11-06-2023 Basophils (Bld) [#/Vol] 0.0 10*3/uL 0.0 - 0.2 10*3/uL [facility] Basophils/100 WBC (Bld) 0.2 % 0.0 - 2.0 % [facility] Eosinophils (Bld) [#/Vol] 0.0 10*3/uL 0.0 - 0.5 10*3/uL [facility] Eosinophils/100 WBC (Bld) 0.0 % Low 1.0 - 6.0 % [facility] Erythrocyte distribution width (RBC) [Ratio] 18.6 % High 11.5 - 14.5 % [facility] Hematocrit (Bld) [Volume fraction] 23.5 % Low 35.0 - 47.0 % [facility] Hemoglobin (Bld) [Mass/Vol] 7.6 g/dL Low 11.7 - 16.0 g/dL [facility] Interpretation and review of laboratory results Abnormal [facility] Lymphocytes (Bld) [#/Vol] 1.3 10*3/uL 1.0 - 4.3 10*3/uL [facility] Lymphocytes/100 WBC (Bld) 7.4 % Low 20.0 - 40.0 % [facility] MCH (RBC) [Entitic mass] 25.6 pg Low 26.0 - 34.0 pg [facility] MCHC (RBC) [Mass/Vol] 32.2 % 32.0 - 36.0 % [facility] MCV (RBC) [Entitic vol] 79.5 fL Low 80.0 - 98.0 fL [facility] Monocytes (Bld) [#/Vol] 0.8 10*3/uL 0.0 - 0.8 10*3/uL [facility] Monocytes/100 WBC (Bld) 4.5 % 2.0 - 10.0 % [facility] Neutrophils (Bld) [#/Vol] 15.3 10*3/uL High 1.8 - 7.0 10*3/uL [facility] Neutrophils/100 WBC (Bld) 87.9 % High 40.0 - 80.0 % [facility] Nucleated RBC/100 WBC (Bld) [Ratio] 0.1 % [facility] Platelet mean volume (Bld) [Entitic vol] 7.2 fL Low 7.4 - 12.4 fL [facility] Platelets (Bld) [#/Vol] 571 10*3/uL High 140 - 440 10*3/uL [facility] RBC (Bld) [#/Vol] 2.96 10*6/uL Low 3.8 - 5.20 10*6/uL [facility] WBC (Bld) [#/Vol] 17.4 10*3/uL High 3.6 - 10.7 10*3/uL [facility] CBC WITH AUTO DIFFERENTIALon 11-06-2023 Basophils (Bld) [#/Vol] 0.0 10*3/uL Normal 0.0-0.2 [facility] Comment on above: Performed By: #### L [id number] ####Chief Information Officer: FREDRICK KHAN ([id number])[facility] ([facility])[address] [place] [address] Basophils/100 WBC (Bld) 0.2 % Normal 0.0-2.0 [facility] Comment on above: Performed By: #### L [id number] ####Chief Information Officer: FREDRICK KHAN ([id number])[facility] ([facility])[address] [place] [address] [place] Eosinophils (Bld) [#/Vol] 0.0 10*3/uL Normal 0.0-0.5 [facility] Comment on above: Performed By: #### L [id number] ####Chief Information Officer: FREDRICK KHAN ([id number])[facility] (SB[facility])[address] [place] [address] Eosinophils/100 WBC (Bld) 0.0 % Low 1.0-6.0 [facility] Comment on above: Performed By: #### L [id number] ####Chief Information Officer: FREDRICK KHAN ([id number])[facility] ([facility])[address] [place] [address] Erythrocyte distribution width (RBC) [Ratio] 18.6 % High 11.5-14.5 [facility] Comment on above: Performed By: #### L [id number] ####Chief Information Officer: FREDRICKYORDAN KHAN ([id number])[facility] [place] (SBHLAB)[address] ERYTHROCYTE MEAN CORPUSCULAR HEMOGLOBIN CONCENTRATION (G/DL) BY AUTOMATED 32.2 % Normal 32.0-36.0 [facility] Comment on above: Performed By: #### L [id number] ####Chief Information Officer: FREDRICK BILL ([id number])[facility] [place] (SBHLAB)[address] Hematocrit (Bld) [Volume fraction] 23.5 % Low 35.0-47.0 [facility] Comment on above: Performed By: #### L [id number] ####Chief Information Officer: FREDRICK KHAN ([id number])[facility] (SB[facility])[address] Hemoglobin (Bld) [Mass/Vol] 7.6 g/dL Low 11.7-16.0 [facility] Comment on above: Performed By: #### L [id number] ####Chief Information Officer: FREDRICK BILL ([id number])[facility] (SB[facility])[address] Lymphocytes (Bld) [#/Vol] 1.3 10*3/uL Normal 1.0-4.3 [facility] Comment on above: Performed By: #### L [id number] ####Chief Information Officer: FREDRICK MONROYCAROLINA ([id number])[facility] [place] (SBHLAB)[address] [place] [address] [place] Lymphocytes/100 WBC (Bld) 7.4 % Low 20.0-40.0 [facility] Comment on above: Performed By: #### L [id number] ####Chief Information Officer: FREDRICK BILL ([id number])[facility] [place] (SBHLAB)[address] MCH (RBC) [Entitic mass] 25.6 pg Low 26.0-34.0 [facility] Comment on above: Performed By: #### L [id number] ####Chief Information Officer: FREDRICK RAMOSSATINDER ([id number])[facility] [place] (SBHLAB)[address] MCV (RBC) [Entitic vol] 79.5 fL Low 80.0-98.0 [facility] Comment on above: Performed By: #### L [id number] ####Chief Information Officer: FREDRICK RAMOSSATINDER ([id number])[facility] [place] (SBHLAB)[address] Monocytes (Bld) [#/Vol] 0.8 10*3/uL Normal 0.0-0.8 [facility] Comment on above: Performed By: #### L [id number] ####Chief Information Officer: FREDRICK RAMOSSATINDER ([id number])[facility] [place] (SBHLAB)[address] Monocytes/100 WBC (Bld) 4.5 % Normal 2.0-10.0 [facility] Comment on above: Performed By: #### L [id number] ####Chief Information Officer: FREDRICK KHAN ([id number])[facility] [place] (SBHLAB)[address] Neutrophils (Bld) [#/Vol] 15.3 10*3/uL High 1.8-7.0 [facility] Comment on above: Performed By: #### L [id number] ####Chief Information Officer: FREDRICK KHAN ([id number])[facility] [place] ([facility])[address] Neutrophils/100 WBC (Bld) 87.9 % High 40.0-80.0 [facility] Comment on above: Performed By: #### L [id number] ####Chief Information Officer: FREDRICK KHAN ([id number])[facility] [place] (SBHL[facility])[address] NRBC (PER 100 WBCS) BY AUTOMATED COUNT 0.1 /100 WBCs Normal 0.0-2.0 [facility] Comment on above: Performed By: #### L [id number] ####Chief Information Officer: FREDRICK KHAN ([id number])[facility] [place] (SBHL[facility])[address] Platelet mean volume (Bld) [Entitic vol] 7.2 fL Low 7.4-12.4 [facility] Comment on above: Performed By: #### L [id number] ####Chief Information Officer: FREDRICK KHAN ([id number])[facility] [place] (SBHL[facility])[address] Platelets (Bld) [#/Vol] 571 10*3/uL High 140-440 [facility] Comment on above: Performed By: #### L [id number] ####Chief Information Officer: FREDRICK KHAN ([id number])[facility] [place] (SB[facility])[address] RBC (Bld) [#/Vol] 2.96 10*6/uL Low 3.8-5.20 [facility] Comment on above: Performed By: #### L [id number] ####Chief Information Officer: FREDRICK KHAN ([id number])[facility] [place] (SB[facility])[address] WBC (Bld) [#/Vol] 17.4 10*3/uL High 3.6-10.7 [facility] Comment on above: Performed By: #### L [id number] ####Chief Information Officer: FREDRICK KHAN ([id number])[facility] [place] (SBHL[facility])[address] COMPREHENSIVE METABOLIC PANE Miles 11-06-2023 Albumin [Mass/Vol] 2.5 g/dL Low 3.5-5.0 [facility] Comment on above: Performed By: #### L [id number] ####Chief Information Officer: FREDRICK KHAN ([id number])[facility] [place] (SB[facility])[address] ALP [Catalytic activity/Vol] 80 U/L Normal 38-126 [facility] Comment on above: Performed By: #### L [id number] ####Chief Information Officer: FREDRICK KHAN ([id number])[facility] [place] (SB[facility])[address] ALT [Catalytic activity/Vol] 20 U/L Normal 0-34 [facility] Comment on above: Performed By: #### L [id number] ####Chief Information Officer: FREDRICK KHAN ([id number])[facility] (SBHLAB)[address] Anion gap [Moles/Vol] 3 mmol/L Normal 3-13 [facility] Comment on above: Performed By: #### L [id number] ####Chief Information Officer: FREDRICK KHAN ([id number])[facility] ([facility])[address] AST [Catalytic activity/Vol] 41 U/L Normal 15-46 [facility] Comment on above: Performed By: #### L [id number] ####Chief Information Officer: FREDRICK KHAN ([id number])[facility] (HL[facility])[address] Bilirubin [Mass/Vol] 0.3 mg/dL Normal 0.2-1.3 [facility] Comment on above: Performed By: #### L [id number] ####Chief Information Officer: FREDRICK KHAN ([id number])[facility] (HL[facility])[address] Calcium [Mass/Vol] 8.1 mg/dL Low 8.4-10.4 [facility] Comment on above: Performed By: #### L [id number] ####Chief Information Officer: FREDRICK KHAN ([id number])[facility] (HL[facility])[address] Chloride [Moles/Vol] 112 mmol/L High 98-107 [facility] Comment on above: Performed By: #### L [id number] ####Chief Information Officer: FREDRICK KHAN ([id number])[facility]ENTERMaik [facility] (SBHLAB)[address] CO2 [Moles/Vol] 24 mmol/L Normal 22-30 [facility] Comment on above: Performed By: #### L [id number] ####Chief Information Officer: FREDRICK KHAN ([id number])[facility] (SB[facility])[address] Creatinine [Mass/Vol] 0.64 mg/dL Normal 0.52-1.04 [facility] Comment on above: Performed By: #### L [id number] ####Chief Information Officer: FREDRICK KHAN ([id number])[facility] (SBHLAB)[address] GLOMERULAR FILTRATION RATE ML/MIN/1.73 SQ M.PREDICTED >90.0 Normal >60.0 [facility] Comment on above: Result Comment: Calc ulation based on the Chronic Kidney Disease Epidemiology Collaboration (CKD-EPI) equation refit without adjustment for race Performed By: #### L [id number] ####Chief Information Officer: FREDRICK KHAN ([id number])[facility] ([facility])[address] Glucose [Mass/Vol] 87 mg/dL Normal 70-100 [facility] Comment on above: Performed By: #### L [id number] ####Chief Information Officer: FREDRICK KHAN ([id number])[facility] (SBHLAB)[address] [place] [address] [place] Potassium [Moles/Vol] 3.6 mmol/L Normal 3.5-5.1 [facility] Comment on above: Performed By: #### L [id number] ####Chief Information Officer: FREDRICK KHAN ([id number])[facility] (SBHLAB)[address] [place] [address] [place] Protein [Mass/Vol] 5.6 g/dL Low 6.3-8.2 [facility] Comment on above: Performed By: #### L [id number] ####Chief Information Officer: FREDRICK KHAN ([id number])[facility] (SBHL[facility])[address] Sodium [Moles/Vol] 139 mmol/L Normal 135-145 [facility] Comment on above: Performed By: #### L [id number] ####Chief Information Officer: FREDRICK KHAN ([id number])[facility] (SBHL[facility])[address] Urea nitrogen [Mass/Vol] 20 mg/dL High 7-17 [facility] Comment on above: Performed By: #### L [id number] ####Chief Information Officer: FREDRICK RAMOSSATINDER ([id number])[facility] [place] [address] Comprehensive metabolic 1998 panelon 11-06-2023 Albumin [Mass/Vol] 2.5 g/dL Low 3.5 - 5.0 g/dL [facility] ALP [Catalytic activity/Vol] 80 U/L 38 - 126 U/L [facility] ALT [Catalytic activity/Vol] 20 U/L 0 - 34 U/L [facility] Anion gap [Moles/Vol] 3 mmol/L 3 - 13 mmol/L [facility] AST [Catalytic activity/Vol] 41 U/L 15 - 46 U/L [facility] Bilirubin [Mass/Vol] 0.3 mg/dL 0.2 - 1 .3 mg/dL [facility] Calcium [Mass/Vol] 8.1 mg/dL Low 8.4 - 10. 4 mg/dL [facility] Chloride [Moles/Vol] 112 mmol/L High 98 - 10 7 mmol/L [facility] CO2 [Moles/Vol] 24 mmol/L 22 - 30 mmol/L [facility] Creatinine [Mass/Vol] 0.64 mg/dL 0.52 - 1.04 mg/dL [facility] GFR/1.73 sq M.predicted MDRD (S/P/Bld) [Vol rate/Area] - PINF [facility] Comment on above: Calculation based on the Chronic Kidney Disease Epidemiology Collaboration (CKD-EPI) equation refit without adjustment for race Glucose [Mass/Vol] 87 mg/dL 70 - 100 mg/dL [facility] Interpretation and review of laboratory results Abnormal [facility] Potassium [Moles/Vol] 3.6 mmol/L 3.5 - 5.1 mmol/L [facility] Protein [Mass/Vol] 5.6 g/dL Low 6.3 - 8.2 g/dL [facility] Sodium [Moles/Vol] 139 mmol/L 135 - 145 mmol/L [facility] Urea nitrogen [Mass/Vol] 20 mg/dL High 7 - 17 mg/dL [facility] Consulton 11-06-2023 Consult Vancomycin therapy h as been discontinued by Ирина [place] on 11/06. Thank you for the consult. Pharmacy signing off for vancomycin dosing. Flavia Baez [facility], Date: 11/06/23 Time: 12:49 PM Normal [facility] Laboratory - Drug toxicology on 11-06-2023 Vancomycin [Mass/Vol] 11.3 ug/mL Low 15.0 - 20.0 ug/mL [facility] No Panel Informationon 11-06 Targets Detected Not detected [facility] Methodology: Multipl ex PCR The [employer] BCID panel can detect the following organisms: E. faecalis, E. faecium, Staphylococcus spp., S. aureus, S. epidermidis, S. lugdunensis, Streptococcus spp., S. pyogenes (Group A), S. agalactiae (Group B), S. pneumoniae, A. baumannii complex, B. fragilis, H. influenzae, N. meningitidis, P. aeruginosa, S. maltophilia, Enterobacterales, E. cloacae complex, E. coli, K. aerogenes, K. oxytoca, K. pneumoniae, Proteus spp., Salmonella spp., S. marcescens, C. albicans, C. auris, C. glabrata, C. krusei, C. parapsilosis, C. tropicalis, and C. neoformans/gattii. The following antimicrobial resistance genes are reported if appropriate organisms are detected: mecA/C and Fareed/B. The following antimicrobial resistance genes are reported if detected and the appropriate organisms are detected: CTX-M, IMP, KPC, NDM, OXA-48-like, VIM, and mcr-1. [facility] Interpretation and review of laboratory results Abnormal [facility] Progress Noteon 11-06-2023 Progress Note Normal [facility] Progress Note IMS Dr Jessica Khanna notified by secure message of Bps of 176 and 176 Normal [facility] Progress Note Normal [facility] Progress Note Normal [facility] Progress Note Rashida Dangelo SPECIAL EFFECTS TECHNICIAN notif ied that is at the bedside and wants to talk to the physician and wants to know why the patient is in isolation. Also, Rashida Dangelo notified that 2 east reported that the patient pulled out NG last night and it remains out Normal [facility] Progress Note Normal [facility] Progress Note Arrived from 2 east, via bed, to 155 Normal [facility] Progress Note Normal [facility] VANCOMYCIN, RANDOMon 024 VANCOMYCIN 11.3 ug/mL Low 15.0-20.0 [facility] Comment on above: Performed By: #### L [id number] ####Chief Information Officer: FREDRICK KHAN ([id number])[facility] (SBHLAB)[address] [place] [address] Consulton 11-05-2023 Consult Normal [facility] No Panel InformationOrdered By: Checo Chávez on 11-05-2023 Coagulase-negative Staphylococcus Detected Abnormal Not Detected [facility] Interpretation and review of laboratory results Abnormal [facility] Methodology: Multipl ex PCR The [employer] BCID panel can detect the following organisms: E. faecalis, E. faecium, Staphylococcus spp., S. aureus, S. epidermidis, S. lugdunensis, Streptococcus spp., S. pyogenes (Group A), S. agalactiae (Group B), S. pneumoniae, A. baumannii complex, B. fragilis, H. influenzae, N. meningitidis, P. aeruginosa, S. maltophilia, Enterobacterales, E. cloacae complex, E. coli, K. aerogenes, K. oxytoca, K. pneumoniae, Proteus spp., Salmonella spp., S. marcescens, C. albicans, C. auris, C. glabrata, C. krusei, C. parapsilosis, C. tropicalis, and C. neoformans/gattii. The following antimicrobial resistance genes are reported if appropriate organisms are detected: mecA/C and Fareed/B. The following antimicrobial resistance genes are reported if detected and the appropriate organisms are detected: CTX-M, IMP, KPC, NDM, OXA-48-like, VIM, and mcr-1. [facility] Progress Noteon 11-05-2023 Progress Note Normal [facility] Progress Note Normal [facility] Progress Note Normal [facility] Progress Note Normal [facility] Progress Note Normal [facility] [id number] 11-04-2023 [id number] Normal [facility] Airwayon 11-04-2023 Juan Minaya CRNA 11/04/2023 2:03 AM Airway Date/Time: 11/04/2023 1:45 AM Urgency: scheduled Airway not difficult General Information and Staff Patient location during procedure: Procedural Resident/ELECTRONIC ENGRAVER: Juan Minaya CRNA Performed: ELECTRONIC ENGRAVER Indications and Patient Condition Indications for airway management: anesthesia and airway protection Sedation level: RSI Preoxygenated: yes Patient position: sniffing Mask difficulty assessment: 0 - not attempted Final Airway Details Final airway type: endotracheal airway Successful airway: ETT Successful intubation technique: direct laryngoscopy Endotracheal tube insertion site: oral Blade: Downs Blade size: #3 ETT size (mm): 7.0 Cormack-Lehane Classification: grade IIa - partial view of glottis Placement verified by: chest auscultation Measured from: lips ETT to lips (cm): 21 Number of attempts at approach: 1 [facility] Anesthesia Noteon 11-04-2023 Anesthesia Note Normal [facility] Anesthesia Note Normal [facility] BASIC METABOLIC PANELon 10-19 Anion gap [Moles/Vol] 5 mmol/L Normal 3-13 [facility] Comment on above: Performed By: #### L AB15, [id number] ####Chief Information Officer: FREDRICK KHAN ([id number])[facility] (SBHLAB)[address] [place] [address] Calcium [Mass/Vol] 8.0 mg/dL Low 8.4-10.4 [facility] Comment on above: Performed By: #### L AB15, [id number] ####Chief Information Officer: FREDRICK KHAN ([id number])[facility] (SBHLAB)[address] Chloride [Moles/Vol] 108 mmol/L High 98-107 [facility] Comment on above: Performed By: #### L AB15, [id number] ####Chief Information Officer: FREDRICK KHAN ([id number])[facility] (SBHLAB)[address] CO2 [Moles/Vol] 22 mmol/L Normal 22-30 [facility] Comment on above: Performed By: #### L AB15, [id number] ####Chief Information Officer: FREDRICK KHAN ([id number])[facility] (SBHLAB)[address] Creatinine [Mass/Vol] 0.71 mg/dL Normal 0.52-1.04 [facility] Comment on above: Performed By: #### L AB15, [id number] ####Chief Information Officer: FREDRICK KHAN ([id number])[facility] (SBHLAB)[address] GLOMERULAR FILTRATION RATE ML/MIN/1.73 SQ M.PREDICTED >90.0 Normal >60.0 [facility] Comment on above: Result Comment: Calc ulation based on the Chronic Kidney Disease Epidemiology Collaboration (CKD-EPI) equation refit without adjustment for race Performed By: #### L AB15, [id number] ####Chief Information Officer: FREDRICK KHAN ([id number])[facility] (SBHLAB)[address] [place] [address] [place] Glucose [Mass/Vol] 156 mg/dL High 70-100 [facility] Comment on above: Performed By: #### L AB15, [id number] ####Chief Information Officer: FREDRICK KHAN ([id number])[facility] [place] (SBHLAB)[address] Potassium [Moles/Vol] 4.4 mmol/L Normal 3.5-5.1 [facility] Comment on above: Performed By: #### L AB15, [id number] ####Chief Information Officer: FREDRICK KHAN ([id number])[facility] (SBHLAB)[address] Sodium [Moles/Vol] 135 mmol/L Normal 135-145 [facility] Comment on above: Performed By: #### L AB15, [id number] ####Chief Information Officer: FREDRICK KHAN ([id number])[facility] [place] (SBHLAB)[address] Urea nitrogen [Mass/Vol] 21 mg/dL High 7-17 [facility] Comment on above: Performed By: #### L AB15, [id number] ####Chief Information Officer: FREDRICK KHAN ([id number])[facility] (SBHLAB)[address] [place] [address] Basic metabolic 1998 panelOr dered By: Carine Moralez on 11-04-2023 Anion gap [Moles/Vol] 5 mmol/L 3 - 13 mmol/L [facility] Calcium [Mass/Vol] 8.0 mg/dL Low 8.4 - 10. 4 mg/dL [facility] Chloride [Moles/Vol] 108 mmol/L High 98 - 10 7 mmol/L [facility] CO2 [Moles/Vol] 22 mmol/L 22 - 30 mmol/L [facility] Creatinine [Mass/Vol] 0.71 mg/dL 0.52 - 1.04 mg/dL [facility] GFR/1.73 sq M.predicted MDRD (S/P/Bld) [Vol rate/Area] - PINF [facility] Comment on above: Calculation based on the Chronic Kidney Disease Epidemiology Collaboration (CKD-EPI) equation refit without adjustment for race Glucose [Mass/Vol] 156 mg/dL High 70 - 100 mg/dL [facility] Interpretation and review of laboratory results Abnormal [facility] Potassium [Moles/Vol] 4.4 mmol/L 3.5 - 5.1 mmol/L [facility] Sodium [Moles/Vol] 135 mmol/L 135 - 145 mmol/L [facility] Urea nitrogen [Mass/Vol] 21 mg/dL High 7 - 17 mg/dL [facility] CARECOORDon 11-04-2023 CARECOORD Normal [facility] CBC (HEMOGRAM)on 11-04-2023 Erythrocyte distribution width (RBC) [Ratio] 18.2 % High 11.5-14.5 [facility] Comment on above: Performed By: #### L [id number] ####Chief Information Officer: FREDRICK KHAN ([id number])[facility] [place] (SBHLAB)[address] ERYTHROCYTE MEAN CORPUSCULAR HEMOGLOBIN CONCENTRATION (G/DL) BY AUTOMATED 32.2 % Normal 32.0-36.0 [facility] Comment on above: Performed By: #### L [id number] ####Chief Information Officer: FREDRICK KHAN ([id number])[facility] [place] (SBHLAB)[address] Hematocrit (Bld) [Volume fraction] 26.9 % Low 35.0-47.0 [facility] Comment on above: Performed By: #### L [id number] ####Chief Information Officer: FREDRICK KHAN ([id number])[facility] (SBHLAB)[address] [place] [address] Hemoglobin (Bld) [Mass/Vol] 8.6 g/dL Low 11.7-16.0 [facility] Comment on above: Performed By: #### L [id number] ####Chief Information Officer: FREDRICK KHAN ([id number])[facility] (SBHLAB)[address] MCH (RBC) [Entitic mass] 25.7 pg Low 26.0-34.0 [facility] Comment on above: Performed By: #### L [id number] ####Chief Information Officer: FREDRICK KHAN ([id number])[facility] (SBHLAB)[address] MCV (RBC) [Entitic vol] 80.0 fL Normal 80.0-98.0 [facility] Comment on above: Performed By: #### L [id number] ####Chief Information Officer: FREDRICK KHNA ([id number])[facility] [place] (SBHLAB)[address] Platelet mean volume (Bld) [Entitic vol] 7.1 fL Low 7.4-12.4 [facility] Comment on above: Performed By: #### L [id number] ####Chief Information Officer: FREDRICK KHAN ([id number])[facility] [place] (SBHLAB)[address] Platelets (Bld) [#/Vol] 669 10*3/uL High 140-440 [facility] Comment on above: Performed By: #### L [id number] ####Chief Information Officer: FREDRICK KHAN ([id number])[facility] [place] (SBHLAB)[address] RBC (Bld) [#/Vol] 3.36 10*6/uL Low 3.8-5.20 [facility] Comment on above: Performed By: #### L [id number] ####Chief Information Officer: FREDRICK KHAN ([id number])[facility] [place] (SBHLAB)[address] WBC (Bld) [#/Vol] 17.7 10*3/uL High 3.6-10.7 [facility] Comment on above: Performed By: #### L AB294 ####Chief Information Officer: FREDRICK KHAN ([id number])[facility] [place] (SBHLAB)[address] CBC panel Auto (Bld)Ordered By: Kelvin Garcia on 11-04-2023 Erythrocyte distribution width (RBC) [Ratio] 18.2 % High 11.5 - 14.5 % [facility] Hematocrit (Bld) [Volume fraction] 26.9 % Low 35.0 - 47.0 % [facility] Hemoglobin (Bld) [Mass/Vol] 8.6 g/dL Low 11.7 - 16.0 g/dL [facility] Interpretation and review of laboratory results Abnormal [facility] MCH (RBC) [Entitic mass] 25.7 pg Low 26.0 - 34.0 pg [facility] MCHC (RBC) [Mass/Vol] 32.2 % 32.0 - 36.0 % [facility] MCV (RBC) [Entitic vol] 80.0 fL 80.0 - 98.0 fL [facility] Platelet mean volume (Bld) [Entitic vol] 7.1 fL Low 7.4 - 12.4 fL [facility] Platelets (Bld) [#/Vol] 669 10*3/uL High 140 - 440 10*3/uL [facility] RBC (Bld) [#/Vol] 3.36 10*6/uL Low 3.8 - 5.20 10*6/uL [facility] WBC (Bld) [#/Vol] 17.7 10*3/uL High 3.6 - 10.7 10*3/uL [facility] COMPLETE URINALYSISon 2023 BACTERIA (#/HPF) IN URINE Negative Normal Negative [facility] Comment on above: Performed By: #### L [id number] ####Chief Information Officer: FREDRICK KHAN ([id number])[facility] ([facility])[address] [place] [address] BILIRUBIN, TOTAL PRESENCE IN URINE Negative Normal Negative [facility] Comment on above: Performed By: #### L [id number] ####Chief Information Officer: FREDRICK KHAN ([id number])[facility] (SBHLAB)[address] [place] [address] [place] Clarity (U) Clear Normal Clear [facility] Comment on above: Performed By: #### L [id number] ####Chief Information Officer: FREDRICK KHAN ([id number])[facility] (SBHLAB)[address] [place] [address] [place] Color (U) Yellow Normal Lt. Yellow [facility] Comment on above: Performed By: #### L [id number] ####Chief Information Officer: FREDRICK RAMOSSATINDER ([id number])[facility] (SBHLAB)[address] GLUCOSE (MG/DL) IN URINE Normal Normal Normal (<70) [facility] Comment on above: Performed By: #### L [id number] ####Chief Information Officer: FREDRICK MONROYCAROLINA ([id number])[facility] [place] (SBHLAB)[address] [place] [address] [place] GRANULAR CASTS (#/LPF) IN URINE 0-2 Abnormal Negative [facility] Comment on above: Performed By: #### L [id number] ####Chief Information Officer: FREDRICK MONROYCAROLINA ([id number])[facility] (SBHLAB)[address] HEMOGLOBIN PRESENCE IN URINE Negative Normal Negative [facility] Comment on above: Performed By: #### L [id number] ####Chief Information Officer: FREDRICK RAMOSSATINDER ([id number])[facility] (SBHLAB)[address] [place] [address] [place] HYALINE CASTS (#/LPF) IN URINE SEDIMENT BY MICROSCOPY 0-2 Abnormal Negative [facility] Comment on above: Performed By: #### L [id number] ####Chief Information Officer: FREDRICK RAMOSSATINDER ([id number])[facility] (SBHLAB)[address] Ketones Ql (U) Negative Normal Negative [facility] Comment on above: Performed By: #### L [id number] ####Chief Information Officer: FREDRICK RAMOSSATINDER ([id number])[facility] (SBHLAB)[address] LEUKOCYTE ESTERASE PRESENCE IN URINE BY TEST STRIP Negative Normal Negative [facility] Comment on above: Performed By: #### L [id number] ####Chief Information Officer: FREDRICK RAMOSSATINDER ([id number])[facility] (SBHLAB)[address] [place] [address] [place] MUCUS (#/LPF) IN URINE SEDIMENT Few Normal Negative [facility] Comment on above: Performed By: #### L [id number] ####Chief Information Officer: FREDRICK KHAN ([id number])[facility] (SBHLAB)[address] NITRITE PRESENCE IN URINE Negative Normal Negative [facility] Comment on above: Performed By: #### L [id number] ####Chief Information Officer: FREDRICK KHAN ([id number])[facility]BPRESBY[facility] (SBHLAB)[address] pH (U) 5.5 [pH] Normal 5.0-8.0 [facility] Comment on above: Performed By: #### L [id number] ####Chief Information Officer: FREDRICK KHAN ([id number])[facility] [place] [address] Protein (U) [Mass/Vol] 20 mg/dL Abnormal Negative [facility] Comment on above: Performed By: #### L [id number] ####Chief Information Officer: FREDRICK KHAN ([id number])[facility] (HLAB)[address] [place] [address] [place] RBC (#/HPF) IN URINE SEDIMENT 3-5 Abnormal 0-2 [facility] Comment on above: Performed By: #### L [id number] ####Chief Information Officer: FREDRICK KHAN ([id number])[facility]ENTERMaik [facility] (SBHLAB)[address] Specific gravity (U) [Rel density] 1.038 High 1.005-1.030 [facility] Comment on above: Performed By: #### L [id number] ####Chief Information Officer: FREDRICK KHAN ([id number])[facility] (SBHLAB)[address] SQUAMOUS EPITHELIAL CELLS (#/HPF) IN URINE SEDIMENT Negative Normal 3-5 [facility] Comment on above: Performed By: #### L [id number] ####Chief Information Officer: FREDRICK KHAN ([id number])[facility]ENTERMaik BATISTADinesh (SBHLAB)[address] UROBILINOGEN (MG/DL) IN URINE Normal Normal Normal (0-1) [facility] Comment on above: Performed By: #### L [id number] ####Chief Information Officer: FREDRICK KHAN ([id number])[facility]ENTER[facility] (SBHLAB)[address] [place] [address] WBC (LEUKOCYTE) (#/HPF) IN URINE SEDIMENT 3-5 Normal 0-5 [facility] Comment on above: Performed By: #### L [id number] ####Chief Information Officer: FREDRICK KHAN ([id number])[facility]ENTER[facility]ik [place] (SBHLAB)[address] [place] [address] CULTURE ANAEROBICon 11-04-19 24 CULTURE ANAEROBIC Normal [facility] Comment on above: Order Comment: Pre-o p diagnosis:Intestinal obstruction, unspecified cause, unspecified whether partial or complete (HCC) [K56.609] Performed By: #### L AB233 ####Chief Information Officer: NATHALY SERRANO ([id number])[facility] ([facility])[address] [place] [address] CULTURE, AEROBIC BACTERIA WI TH GRAM STAINon 11-04-2023 CULTURE, AEROBIC BACTERIA WITH GRAM STAIN Normal [facility] Comment on above: Order Comment: Pre-o p diagnosis:Intestinal obstruction, unspecified cause, unspecified whether partial or complete (HCC) [K56.609] Performed By: #### L AB897 ####Chief Information Officer: NATHALY SERRANO ([id number])[facility] ([facility])[address] [place] [address] [place] Consulton 11-04-2023 Consult Normal [facility] ECG 12-LEADon 11-04-2023 ECG 12-LEAD IMPRESSION: Sinus tachycardia Probable left atrial enlargement No ST segment elevations No significant changes from previous ECG Electronically Signed On 11-04-2023 07:39:42 EST by Dat Cintron Normal [facility] ED Nursing Noteon 11-04-2023 ED Nursing Note Surgery to bedside w ith patient. States that patient is going to OR now. Called and notified patients . Pt taken to OR with all of her belongings Maritza Manjarrez RN 11/04/23 0130 Normal [facility] ED Nursing Note Pt assisted onto bedpan, states that she has been unable to void with external catheter on. Maritza Manjarrez RN 11/04/23 0007 Normal [facility] LACTIC ACID WITH REFLEXon Lactate [Moles/Vol] 1.8 mmol/L Normal 0.7-2.0 [facility] Comment on above: Performed By: #### L [id number] ####Chief Information Officer: FREDRICK KHAN ([id number])[facility] ([facility])[address] [place] [address] Laboratory - Chemistry and C hemistry - challengeon 11-04-2023 Troponin I.cardiac [Mass/Vol] ng/mL mGenerator - 0.034 ng/mL [facility] Enforta Lactate [Moles/Vol] 1.8 mmol/L 0.7 - 2. 0 mmol/L [facility] [employer] Troponin I.cardiac [Mass/Vol] ng/mL mGenerator - 0.034 ng/mL [facility] No Panel InformationOrdered By: Dat Cintron on 11-04-2023 P [place] 76 degrees Player X Work Phone: NM Interval 148 ms Player X Work Phone: QRS [place] 38 degrees Player X Work Phone: QRSD Interval 59 ms Punchbowlt Ellevation Work Phone: QT Interval 320 ms Player X Work Phone: QTC Interval 449 ms Snip.lya Enforta Work Phone: T Wave [place] 57 degrees Player X Work Phone: Player X Work Phone: No Panel Informationon 11-04 Sinus tachycardia Probable left atrial enlargement No ST segment elevations No significant changes from previous ECG Electronically Signed On 11-04-2023 07:39:42 EST by Dat Cintron CV Dat Barrios MD - 11/04/2023 IMPRESSION: Sinus tachycardia Probable left atrial enlargement No ST segment elevations No significant changes from previous ECG Electronically Signed On 11-04-2023 07:39:42 EST by Dat Cintron [facility] Interpretation and review of laboratory results Normal [facility] Nursing Noteon 11-04-2023 Nursing Note Called report to Hillary ruiz- pt meets requirements to go to room at this time. Normal [facility] Nursing Note at bedside i n PACU. Sent belongings home with him. Normal [facility] Op Noteon 11-04-2023 Op Note Normal [facility] Peripheral Blockon Juan Minaya CRNA 11/04/2023 2:10 AM Peripheral Block Time Out: 11/04/2023 1:50 AM Patient location during procedure: Procedural Start time: 11/04/2023 1:50 AM End time: 11/04/2023 2:08 AM Reason for block: at surgeon's request and post-op pain management Staffing Performed: ELECTRONIC ENGRAVER Resident/ELECTRONIC ENGRAVER: Juan Minaya CRNA Preanesthetic Checklist Completed: patient identified, IV checked, site marked, risks and benefits discussed, surgical consent, monitors and equipment checked, pre-op evaluation and timeout performed Region: [place] Primary: TAP (Bupivacaine 0.375%/ Epi 1:200,000/ Dex 0.1mg/mL 40ml divided evenly bilateral) Secondary: Upper rectus (Bupivacaine 0.375%/ Epi 1:200,000/ Dex 0.1mg/mL 20ml divided evenly bilateral) Peripheral Block Patient position: supine Prep: ChloraPrep Patient monitoring: heart rate, site monitor, continuous pulse ox and continuous capnometry O2: ETT/LMA Laterality: bilateral Injection technique: single-shot Guidance: ultrasound guided -image retained in chart, tip of the needle identified by ultraound during injection. Needle Needle: 21G X 110 mm Additional Notes 11/04/2023 1:50 AM Assessment Injection assessment: negative aspiration for heme, no paresthesia on injection and incremental injection Heart rate change: no Slow fractionated injection: yes Required Documentation: Relevant anatomy identified (Nerves, Vessels, Muscles), Negative for blood on aspiration, Local anesthetic injected incrementally with intermittent aspiration every 5 mL, Normal resistance with injection, No EKG changes noted, No symptoms of toxicity, Local anesthetic spread visualized around nerves or plane. and Local anesthetic injected without difficultyMedications dexAMETHasone-bupivacai ne-epinephrine (TAP) syringe - Injection 60 mL - 11/04/2023 1:50:00 AM [facility] Progress Noteon 11-04-2023 Progress Note Normal [facility] TROPONIN Ion 11-04-2023 Troponin I.cardiac [Mass/Vol] ng/mL Normal <0.034 [facility] Comment on above: Result Comment: SHANNAN Zavala COMMENTS:Patients with high levels of Biotin oral intake (ie >5 mg/day) may have falsely decreased Troponin levels. Performed By: #### L AB15, [id number] ####Chief Information Officer: FREDRICK KHAN ([id number])[facility] ([facility])[address] [place] [address] Troponin I.cardiac [Mass/Vol ]on 11-04-2023 Interpretation and review of laboratory results Normal [facility] Patients with high levels of Biotin oral intake (ie >5 mg/day) may have falsely decreased Troponin levels. [facility] Interpretation and review of laboratory results Normal [facility] Patients with high levels of Biotin oral intake (ie >5 mg/day) may have falsely decreased Troponin levels. [facility] Urinalysis complete panel (U )Ordered By: June Ca on 11-04-2023 Bacteria LM.HPF (Urine sed) [#/Area] Negative Negative /HPF [facility] Bilirubin Ql (U) Negative Negative mg/dL [facility] Clarity (U) Clear Clear [facility] Color (U) Yellow Lt. Yellow [facility] Epithelial cells.squamous LM.HPF (Urine sed) [#/Area] Negative [facility] Glucose Ql (U) Normal Normal (<70) mg/dL [facility] Granular casts LM.HPF (Urine sed) [#/Area] 0-2 Abnormal Negative /LPF [facility] Hemoglobin Ql (U) Negative Negative mg/dL [facility] Hyaline casts Auto (Urine sed) [#/Area] 0-2 Abnormal Negative /LPF [facility] Interpretation and review of laboratory results Abnormal [facility] Ketones (U) [Mass/Vol] Negative Negat santino mg/dL [facility] Leukocyte esterase Test strip Ql (U) Negative Negative Lauro/uL [facility] Mucus LM.HPF (Urine sed) [#/Area] Few Negative /LPF [facility] Nitrite Ql (U) Negative Negative [facility] th pH (U) 5.5 [pH] 5.0 - 8.0 pH [facility] Protein (U) [Mass/Vol] 20 mg/dL Abnormal Negative [facility] RBC LM.HPF (Urine sed) [#/Area] 3-5 Abnormal [facility] Specific gravity (U) [Rel density] 1.038 High 1.005 - 1.030 [facility] Urobilinogen (U) [Mass/Vol] Normal Normal (0-1) mg/dL [facility] WBC LM.HPF (Urine sed) [#/Area] 3-5 [facility] Vital signsOrdered By: Dat Cintron on 11-04-2023 Heart rate 118 /min bpm [facility] Work Phone: ABO and Rh group Confirm Nom (Bld)on 11-03-2023 ABO group Nom (Bld) O [facility] D Ag Ql (RBC) Positive [facility] h [facility] BASIC METABOLIC PANELon 10-19 Anion gap [Moles/Vol] 8 mmol/L Normal 3-13 [facility] Comment on above: Performed By: #### L [id number], LAB99, LAB15, LAB20 ####Chief Information Officer: FREDRICK KHAN ([id number])[facility] (SBHLAB)[address] Calcium [Mass/Vol] 10.0 mg/dL Normal 8.4-10.4 [facility] Comment on above: Performed By: #### L [id number], LAB99, LAB15, LAB20 ####Chief Information Officer: FREDRICK KHAN ([id number])[facility] (SBHLAB)[address] Chloride [Moles/Vol] 99 mmol/L Normal 98-107 [facility] Comment on above: Performed By: #### L [id number], LAB99, LAB15, LAB20 ####Chief Information Officer: FREDRICK KHAN ([id number])[facility] (SBHLAB)[address] [place] [address] [place] CO2 [Moles/Vol] 27 mmol/L Normal 22-30 [facility] Comment on above: Performed By: #### L [id number], LAB99, LAB15, LAB20 ####Chief Information Officer: FREDRICK KHAN ([id number])[facility] (SBHLAB)[address] Creatinine [Mass/Vol] 0.66 mg/dL Normal 0.52-1.04 [facility] Comment on above: Performed By: #### L [id number], LAB99, LAB15, LAB20 ####Chief Information Officer: FREDRICK KHAN ([id number])[facility] ([facility])[address] GLOMERULAR FILTRATION RATE ML/MIN/1.73 SQ M.PREDICTED >90.0 Normal >60.0 [facility] Comment on above: Result Comment: Calc ulation based on the Chronic Kidney Disease Epidemiology Collaboration (CKD-EPI) equation refit without adjustment for race Performed By: #### L [id number], LAB99, LAB15, LAB20 ####Chief Information Officer: FREDRICK KHAN ([id number])[facility] ([facility])[address] [place] [address] [place] Glucose [Mass/Vol] 131 mg/dL High 70-100 [facility] Comment on above: Performed By: #### L [id number], LAB99, LAB15, LAB20 ####Chief Information Officer: FREDRICK KHAN ([id number])[facility] (SBHLAB)[address] [place] [address] [place] Potassium [Moles/Vol] 4.0 mmol/L Normal 3.5-5.1 [facility] Comment on above: Performed By: #### L [id number], LAB99, LAB15, LAB20 ####Chief Information Officer: FREDRICK KHAN ([id number])[facility] (SBHLAB)[address] [place] [address] [place] Sodium [Moles/Vol] 134 mmol/L Low 135-145 [facility] Comment on above: Performed By: #### L [id number], LAB99, LAB15, LAB20 ####Chief Information Officer: FREDRICK KHAN ([id number])[facility] KHOUR[facility] (SBHLAB)[address] [place] [address] [place] Urea nitrogen [Mass/Vol] 21 mg/dL High 7-17 [facility] Comment on above: Performed By: #### L [id number], LAB99, LAB15, LAB20 ####Chief Information Officer: FREDRICK KHAN ([id number])[facility] KHOURY (SBHLAB)[address] BLOOD CULTUREon 11-03-2023 Bacteria identified Cx Nom (Bld) Normal [facility] Comment on above: Performed By: #### L [id number], [id number] ####Chief Information Officer: NATHALY SERRANO ([id number])[facility] ([facility])[address] [place] [address] Bacteria identified Cx Nom (Bld) Normal [facility] Comment on above: Performed By: #### L AB462, [id number] ####Chief Information Officer: NATHALY SERRANO ([phone])[facility] ([facility])[address] [place] [address] BLOOD CULTURE IDENTIFICATION - AEROBICon 11-03-2023 BLOOD CULTURE IDENTIFICATION - AEROBIC Normal [facility] Comment on above: Performed By: #### L AB462, [id number] ####Chief Information Officer: NATHALY SERRANO ([id number])[facility] ([facility])[address] [place] [address] BLOOD CULTURE IDENTIFICATION - ANAEROBICon 11-03-2023 BLOOD CULTURE IDENTIFICATION - ANAEROBIC Normal [facility] Comment on above: Performed By: #### L [id number], [id number] ####Chief Information Officer: NATHALY SERRANO ([phone])[facility] ([facility])[address] [place] [address] BLOOD TYPE AND SCREEN GELon 11-03-2023 ABO GROUPING O Normal [facility] Comment on above: Performed By: #### L AB276 ####Chief Information Officer: FREDRICK KHAN ([id number])[facility] BLOOD [facility] ([facility])[address] [place], [place] [id number] [place] [address] RH TYPE IN BLOOD Positive Normal [facility] Comment on above: Performed By: #### L [id number] ####Chief Information Officer: FREDRICK KHAN ([id number])[facility] ([facility])[address] [place] [address] [facility] Basic metabolic 1998 panelon 11-03-2023 Anion gap [Moles/Vol] 8 mmol/L 3 - 13 mmol/L [facility] Calcium [Mass/Vol] 10.0 mg/dL 8.4 - 10. 4 mg/dL [facility] Chloride [Moles/Vol] 99 mmol/L 98 - 10 7 mmol/L [facility] CO2 [Moles/Vol] 27 mmol/L 22 - 30 mmol/L [facility] Creatinine [Mass/Vol] 0.66 mg/dL 0.52 - 1.04 mg/dL [facility] GFR/1.73 sq M.predicted MDRD (S/P/Bld) [Vol rate/Area] - PINF [facility] Comment on above: Calculation based on the Chronic Kidney Disease Epidemiology Collaboration (CKD-EPI) equation refit without adjustment for race Glucose [Mass/Vol] 131 mg/dL High 70 - 100 mg/dL [facility] Potassium [Moles/Vol] 4.0 mmol/L 3.5 - 5.1 mmol/L [facility] Sodium [Moles/Vol] 134 mmol/L Low 135 - 145 mmol/L [facility] Urea nitrogen [Mass/Vol] 21 mg/dL High 7 - 17 mg/dL [facility] Blood type and Crossmatch satinder manuel (Bld)on 11-03-2023 ABO group Nom (Bld) O [facility] Blood group antibody screen GEL Ql Negative [facility] D Ag Ql (RBC) Positive [facility] Healt h [facility] CBC W Auto Differential pane l (Bld)Ordered By: Campos Ivy on 11-03-2023 Erythrocyte distribution width (RBC) [Ratio] 18.5 % High 11.5 - 14.5 % [facility] Hematocrit (Bld) [Volume fraction] 33.3 % Low 35.0 - 47.0 % [facility] Hemoglobin (Bld) [Mass/Vol] 10.9 g/dL Low 11.7 - 16.0 g/dL [facility] Interpretation and review of laboratory results Abnormal [facility] MCH (RBC) [Entitic mass] 25.8 pg Low 26.0 - 34.0 pg [facility] MCHC (RBC) [Mass/Vol] 32.8 % 32.0 - 36.0 % [facility] MCV (RBC) [Entitic vol] 78.8 fL Low 80.0 - 98.0 fL [facility] Nucleated RBC/100 WBC (Bld) [Ratio] 0.0 % [facility] Platelet mean volume (Bld) [Entitic vol] 7.3 fL Low 7.4 - 12.4 fL [facility] Platelets (Bld) [#/Vol] 886 10*3/uL High 140 - 440 10*3/uL [facility] RBC (Bld) [#/Vol] 4.23 10*6/uL 3.8 - 5.20 10*6/uL [facility] WBC (Bld) [#/Vol] 16.6 10*3/uL High 3.6 - 10.7 10*3/uL [facility] CBC WITH AUTO DIFFERENTIALon 11-03-2023 Erythrocyte distribution width (RBC) [Ratio] 18.5 % High 11.5-14.5 [facility] Comment on above: Performed By: #### L [id number], [id number] ####Chief Information Officer: FREDRICK KHAN ([phone])[facility] ([facility])[address] [place] [address]#### [id number] ####Chief Information Officer: NATHALY SERRANO ([phone])[facility] ([facility])[address] [place] [address] ERYTHROCYTE MEAN CORPUSCULAR HEMOGLOBIN CONCENTRATION (G/DL) BY AUTOMATED 32.8 % Normal 32.0-36.0 [facility] Comment on above: Performed By: #### L [id number], [id number] ####Chief Information Officer: FREDRICK KHAN ([id number])[facility] HINSONJUSTEN ([facility])[address] [place] [address]#### [id number] ####Chief Information Officer: NATHALY SERRANO ([phone])[facility] ([facility])[address] [place] [address] Hematocrit (Bld) [Volume fraction] 33.3 % Low 35.0-47.0 [facility] Comment on above: Performed By: #### L [id number], [id number] ####Chief Information Officer: FREDRICK KHAN ([phone])[facility]ENTER[facility] HINSONJUSTEN ([facility])[address] [place] [address]#### [id number] ####Chief Information Officer: NATHALY SERRANO ([phone])[facility] ([facility])[address] [place] [address] Hemoglobin (Bld) [Mass/Vol] 10.9 g/dL Low 11.7-16.0 [facility] Comment on above: Performed By: #### Ryan [id number], [id number] ####Chief Information Officer: FREDRICK KHAN ([phone])[facility]ENTER[facility] HINSONJUSTEN ([facility])[address] [place] [address]#### [id number] ####Chief Information Officer: NATHALY SERRANO ([phone])[facility] ([facility])[address] [place] [address] MCH (RBC) [Entitic mass] 25.8 pg Low 26.0-34.0 [facility] Comment on above: Performed By: #### L [id number], [id number] ####Chief Information Officer: FREDRICK KHAN ([id number])[facility] SRAVANTRINY (SB[facility])[address] [place] [address]#### [id number] ####Chief Information Officer: NATHALY SERRANO ([phone])[facility] ([facility])[address] [place] [address] [place] MCV (RBC) [Entitic vol] 78.8 fL Low 80.0-98.0 [facility] Comment on above: Performed By: #### L [id number], [id number] ####Chief Information Officer: FREDRICK KHAN ([id number])[facility]ENTER[facility] HINSONJUSTEN ([facility])[address] [place] [address]#### [id number] ####Chief Information Officer: NATHALY SERRANO ([id number])[facility] ([facility] [place] [address] NRBC (PER 100 WBCS) BY AUTOMATED COUNT 0.0 /100 WBCs Normal 0.0-2.0 [facility] Comment on above: Performed By: #### L [id number], [id number] ####Chief Information Officer: FREDRICK KHAN ([id number])[facility] ([facility])[address] [place] [address]#### [id number] ####Chief Information Officer: NATHALY SERRANO ([phone])[facility] ([facility])[address] [place] [address] Platelet mean volume (Bld) [Entitic vol] 7.3 fL Low 7.4-12.4 [facility] Comment on above: Performed By: #### Ryan [id number], [id number] ####Chief Information Officer: FREDRICK KHAN ([id number])[facility]ENTERMa[facility] HINSONTRINY ([facility])[address] [place] [address]#### [id number] ####Chief Information Officer: NATHALY SERRANO ([phone])[facility] ([facility])[address] [place] [address] Platelets (Bld) [#/Vol] 886 10*3/uL High 140-440 [facility] Comment on above: Performed By: #### L [id number], [id number] ####Chief Information Officer: FREDRICK KHAN ([id number])[facility] ([facility])[address] [place] [address] [place]#### [id number] ####Chief Information Officer: NATHALY SERRANO ([phone])[facility] ([facility])[address] [place] [address] RBC (Bld) [#/Vol] 4.23 10*6/uL Normal 3.8-5.20 [facility] Comment on above: Performed By: #### L [id number], [id number] ####Chief Information Officer: FREDRICK KHAN ([id number])[facility]ENTERMaik [facility]INSONHAVAS[facility] ([facility])[address] [place] [address]#### [id number] ####Chief Information Officer: NATHALY SERRANO ([phone])[facility] ([facility])[address] [place] [address] WBC (Bld) [#/Vol] 16.6 10*3/uL High 3.6-10.7 [facility] Comment on above: Performed By: #### L [id number], [id number] ####Chief Information Officer: FREDRICK KHAN ([id number])[facility]ENTERMaik [facility]INSONHAVAS[facility] ([facility])[address] [place] [address]#### [id number] ####Chief Information Officer: NATHALY SERRANO ([phone])[facility] ([facility])[address] [place] [address] COVID-19, Flu A/B, and RSV C omboon 11-03-2023 Interpretation and review of laboratory results Normal [facility] CT ABDOMEN PELVIS W CONTRAST on 11-03-2023 CT ABDOMEN PELVIS W CONTRAST Normal [facility] CT Abdomen and Pelvis W cont rast Nani 11-03-2023 Findings most consistent with complicated diverticulitis of the sigmoid colon with small to moderate amount of free air in the abdomen and pelvis and developing abscess in the mid pelvis as described. Surgical consultation is recommended. Colonoscopy after treatment is recommended to exclude underlying mass. Findings consistent with developing small bowel obstruction with transition point in the right lower quadrant. Trace bilateral pleural effusions with associated atelectasis. Hepatic steatosis, correlation with LFTs is recommended. Wall thickening of the distal esophagus, clinical correlation for reflux/esophagitis is recommended. CRITICAL TEST RESULT COMMUNICATION: Notification of these findings was made to MICHAEL BERUMEN via phone call on 11/03/2023 10:48 PM EST. Report Dictated on Electronically Signed By: Daron Daly MD Electronically Signed Date/Time: 11/03/2023 10:57 PM EST [facility]Y [facility] Patient Name: PRISCILA CHA : 1955 Exam Date/Time: 11/03/2023 22:04 Procedure: CT ABDOMEN PELVIS W CONTRAST Ordering Provider: BERUMEN MAURICE Reason For Exam: BIlateral Upper quad, llq pain CT ABDOMEN AND PELVIS WITH CONTRAST CLINICAL INDICATION: Abdominal pain. TECHNIQUE: Transaxial sequence through the abdomen and pelvis with 3 mm reconstruction following oral contrast with dynamic intravenous infusion of 75 mL of 370 mg% contrast media. Coronal and sagittal reconstructions included. Dose reduction was employed with automated exposure control. COMPARISON: 07/24/2023 CT abdomen and pelvis FINDINGS: Lower chest: Trace bilateral pleural effusions with associated atelectasis. The heart is normal in size without evidence of pericardial effusion. Wall thickening of the distal esophagus. Liver: The liver is diffusely hypoattenuating consistent with hepatic steatosis. No focal liver lesion. Biliary tree: Intrahepatic and extrahepatic ducts are nondilated. Gallbladder: The gallbladder is nondistended and without evidence of radiopaque stones. Pancreas: The pancreas appears unremarkable without evidence of ductal dilatation or mass. Spleen: The spleen is normal in size. No focal lesion is identified. Adrenals: Bilateral adrenal glands appear normal. Kidneys: The bilateral kidneys are normal in size and enhance symmetrically. No hydroureteronephrosis or nephroureterolithiasis. Bladder: The urinary bladder appears normal without evidence of wall thickening. Pelvic organs/viscera: No mass identified Bowel: The stomach is unremarkable. There is extensive wall thickening of the sigmoid colon with adjacent fat stranding. There are mildly dilated loops of small bowel with air-fluid levels and transition point in the right lower quadrant on series 3 image 67. The appendix appears unremarkable. Retroperitoneal/mesente abeba lymphadenopathy: There is a small to moderate amount of free air seen throughout the abdomen and pelvis. There is a loculated fluid collection in the mid pelvis containing foci of air measuring 3.9 x 1.9 cm on series 3 image 104. No evidence of abdominal pelvic lymphadenopathy. Aorta: There is no aneurysmal dilatation of the abdominal aorta. Severe atherosclerotic calcifications of the abdominal aorta and its branches. Abdominal wall: The soft tissues appear unremarkable. Bones: No evidence of acute fracture or dislocation. Mild discogenic degenerative changes of the thoracolumbar spine. [facility] Daron Daly MD - 11/03/2023 [facility] 1955 [id number] Exam Date/Time: 11/03/2023 22:04 Procedure: CT ABDOMEN PELVIS W CONTRAST Ordering Provider: BERUMEN MAURICE Reason For Exam: BIlateral Upper quad, llq pain CT ABDOMEN AND PELVIS WITH CONTRAST CLINICAL INDICATION: Abdominal pain. TECHNIQUE: Transaxial sequence through the abdomen and pelvis with 3 mm reconstruction following oral contrast with dynamic intravenous infusion of 75 mL of 370 mg% contrast media. Coronal and sagittal reconstructions included. Dose reduction was employed with automated exposure control. COMPARISON: 07/24/2023 CT abdomen and pelvis FINDINGS: Lower chest: Trace bilateral pleural effusions with associated atelectasis. The heart is normal in size without evidence of pericardial effusion. Wall thickening of the distal esophagus. Liver: The liver is diffusely hypoattenuating consistent with hepatic steatosis. No focal liver lesion. Biliary tree: Intrahepatic and extrahepatic ducts are nondilated. Gallbladder: The gallbladder is nondistended and without evidence of radiopaque stones. Pancreas: The pancreas appears unremarkable without evidence of ductal dilatation or mass. Spleen: The spleen is normal in size. No focal lesion is identified. Adrenals: Bilateral adrenal glands appear normal. Kidneys: The bilateral kidneys are normal in size and enhance symmetrically. No hydroureteronephrosis or nephroureterolithiasis. Bladder: The urinary bladder appears normal without evidence of wall thickening. Pelvic organs/viscera: No mass identified Bowel: The stomach is unremarkable. There is extensive wall thickening of the sigmoid colon with adjacent fat stranding. There are mildly dilated loops of small bowel with air-fluid levels and transition point in the right lower quadrant on series 3 image 67. The appendix appears unremarkable. Retroperitoneal/mesente abeba lymphadenopathy: There is a small to moderate amount of free air seen throughout the abdomen and pelvis. There is a loculated fluid collection in the mid pelvis containing foci of air measuring 3.9 x 1.9 cm on series 3 image 104. No evidence of abdominal pelvic lymphadenopathy. Aorta: There is no aneurysmal dilatation of the abdominal aorta. Severe atherosclerotic calcifications of the abdominal aorta and its branches. Abdominal wall: The soft tissues appear unremarkable. Bones: No evidence of acute fracture or dislocation. Mild discogenic degenerative changes of the thoracolumbar spine. IMPRESSION: Findings most consistent with complicated diverticulitis of the sigmoid colon with small to moderate amount of free air in the abdomen and pelvis and developing abscess in the mid pelvis as described. Surgical consultation is recommended. Colonoscopy after treatment is recommended to exclude underlying mass. Findings consistent with developing small bowel obstruction with transition point in the right lower quadrant. Trace bilateral pleural effusions with associated atelectasis. Hepatic steatosis, correlation with LFTs is recommended. Wall thickening of the distal esophagus, clinical correlation for reflux/esophagitis is recommended. CRITICAL TEST RESULT COMMUNICATION: Notification of these findings was made to MICHAEL BERUMEN via phone call on 11/03/2023 10:48 PM EST. Report Dictated on Electronically Signed By: Daron Daly MD Electronically Signed Date/Time: 11/03/2023 10:57 PM EST [facility] Radiology Study observation (narrative) [facility] CT Abdomen and Pelvis W cont rast IVOrdered By: Daron Daly on 11-03-2023 [facility] Work Phone: ED Nursing Noteon 11-03-2023 ED Nursing Note Pts pulse ox 90% on RA. Pt denies distress, denies CP or SOB. 2L NC applied and pts pulse ox to 96%. Dr Berumen notified. Maritza Manjarrez, QUETA 11/03/23 1012 Normal [facility] ED Nursing Note Offered to call patients at this time to give updates, pt declines, states that she wants to wait until she gets updated from MD about general surgeries recommendations. Maritza Manjarrez RN 11/03/23 6544 [facility] ED Nursing Note Pt placed on puriwic k for comfort and to provide urine sample. Pt resting dry and comfortable. Trena Bar, EMT 11/03/23 9138 [facility] ED Nursing Note Dr Berumen notified of patients + sepsis screening at this time Maritza Manjarrez, RN 11/03/232046 Normal [facility] ED Nursing Note Guided Deja back Lena Campbell, EMT 11/03/231937 Normal [facility] ED Nursing Note Introduced myself as pt liaison and explained role provide support to Deja in lobby , pt arrived via EMS. Lena Campbell, EMT 11/03/231920 Normal [facility] ED Provider Noteon ED Provider Note Normal [facility] HEPATIC FUNCTION PANELon Albumin [Mass/Vol] 3.1 g/dL Low 3.5-5.0 [facility] Comment on above: Performed By: #### L [id number], LAB99, LAB15, LAB20 ####Chief Information Officer: FREDRICK KHAN ([id number])[facility] [place] ([facility])[address] ALP [Catalytic activity/Vol] 100 U/L Normal 38-126 [facility] Comment on above: Performed By: #### L [id number], LAB99, LAB15, LAB20 ####Chief Information Officer: FREDRICK KHAN ([id number])[facility] [place] ([facility])[address] ALT [Catalytic activity/Vol] 18 U/L Normal 0-34 [facility] Comment on above: Performed By: #### L [id number], LAB99, LAB15, LAB20 ####Chief Information Officer: FREDRICK KHAN ([id number])[facility] [place] ([facility])[address] [place] [address] [place] AST [Catalytic activity/Vol] 38 U/L Normal 15-46 [facility] Comment on above: Performed By: #### L [id number], LAB99, LAB15, LAB20 ####Chief Information Officer: FREDRICK KHAN ([phone])[facility] [place] ([facility])[address] [place] [address] [place] Bilirubin [Mass/Vol] 0.9 mg/dL Normal 0.2-1.3 [facility] Comment on above: Performed By: #### L [id number], LAB99, LAB15, LAB20 ####Chief Information Officer: FREDRICK KHAN ([id number])[facility] ([facility])[address] [place] [address] Bilirubin.indirect [Mass/Vol] 0.0 mg/dL Normal 0.0-0.3 [facility] Comment on above: Performed By: #### L [id number], LAB99, LAB15, LAB20 ####Chief Information Officer: FREDRICK KHAN ([phone])[facility] ([facility])[address] [place] [address] Protein [Mass/Vol] 6.8 g/dL Normal 6.3-8.2 [facility] Comment on above: Performed By: #### L [id number], LAB99, LAB15, LAB20 ####Chief Information Officer: FREDRICK KHAN ([phone])[facility] ([facility])[address] [place] [address] Hepatic function 2000 panelo n 11-03-2023 Albumin [Mass/Vol] 3.1 g/dL Low 3.5 - 5.0 g/dL [facility] ALP [Catalytic activity/Vol] 100 U/L 38 - 126 U/L [facility] ALT [Catalytic activity/Vol] 18 U/L 0 - 34 U/L [facility] AST [Catalytic activity/Vol] 38 U/L 15 - 46 U/L [facility] Bilirubin [Mass/Vol] 0.9 mg/dL 0.2 - 1 .3 mg/dL [facility] Bilirubin.conjugated [Mass/Vol] 0.0 mg/dL 0.0 - 0.3 mg/dL [facility] Protein [Mass/Vol] 6.8 g/dL 6.3 - 8.2 g/dL [facility] LACTIC ACID WITH REFLEXon Lactate [Moles/Vol] 2.1 mmol/L High 0.7-2.0 [facility] Comment on above: Performed By: #### L [id number] ####Chief Information Officer: FREDRICK KHAN ([phone])[facility] [place] ([facility])[address] LIPASEon 11-03-2023 Lipase [Catalytic activity/Vol] U/L Low 23-300 [facility] Comment on above: Performed By: #### L [id number], LAB99, LAB15, LAB20 ####Chief Information Officer: FREDRICK KHAN ([phone])[facility] ([facility])[address] Laboratory - Chemistry and C hemistry - challengeon 11-03-2023 Lactate [Moles/Vol] 2.1 mmol/L High 0.7 - 2. 0 mmol/L [facility] Troponin I.cardiac [Mass/Vol] ng/mL NINF - 0.034 ng/mL [facility] Lipase [Catalytic activity/Vol] U/L Low 23 - 300 U/L [facility] Laboratory - Coagulationon 0 11-03-2023 aPTT Coag (PPP) [Time] 24.6 s 20.0 - 30.5 s [facility] INR Coag (PPP) [Relative time] 1.2 {INR} High 0.9 - 1.1 [facility] Comment on above: Recommended Anticoag ulant Therapy: SEE BELOW ----- INR of 2.0 - 3.0 : - Prophylaxis of Venous Thrombosis (high-risk surgery) - Treatment of Venous Thrombosis - Treatment of Pulmonary Embolism (Includes tissue heart valves, Acute Myocardial Infarction to prevent systemic embolism, Valvular Heart Disease, and Atrial Fibrillation) ----- INR of 2.5 - 3.5 : - Mechanical Prosthetic Valves (high risk) - If oral anticoagulant therapy is used to prevent Myocardial Infarction PT Coag (Bld) [Time] 13.1 s High 9.0 - 1 2.0 s [facility] Laboratory - Microbiology an d Antimicrobial susceptibilityon 11-03-2023 FLUAV RNA JACKIE+probe Ql (Resp) Not detected Not Detected [facility] FLUBV RNA JACKIE+probe Ql (Resp) Not detected Not Detected [facility] RSV RNA JACKIE+probe Ql (Resp) Not detected Not Detected [facility] SARS-CoV-2 (COVID-19) RNA JACKIE+probe Ql (Resp) Not detected Not Detected [facility] SARS-CoV-2 (COVID-19) RNA JACKIE+probe Ql (Unsp spec) Methodology: real-time, RT-PCR The SARS-CoV-2, Flu A/B, and RSV Combo assay is intended for in vitro diagnostic use under the FDA Emergency Use Authorization (EUA). This test has not been FDA cleared or approved. In compliance with this authorization, please visit www.fda.gov/media/24584 5/download or www.fda.gov/media/05622 6/download to access the applicable information sheets. [facility] MANUAL DIFFERENTIALon 2023 CELLS COUNTED TOTAL (#) IN BLOOD 100 Normal [facility] Comment on above: Performed By: #### L [id number], [id number] ####Chief Information Officer: FREDRICK KHAN ([id number])[facility] ([facility])[address] [place] [address]#### [id number] ####Chief Information Officer: NATHALY SERRANO ([phone])[facility] ([facility])[address] [place] [address] DIFFERENTIAL METHOD Automated differenti al reported after manual slide review Normal [facility] Comment on above: Result Comment: SHANNAN Zavala COMMENTS:Slide sent for pathology reviewPlatelet count verified by manual estimate. Performed By: #### L [id number], [id number] ####Chief Information Officer: FREDRICK KHAN ([phone])[facility] ([facility])[address] [place] [address]#### [id number] ####Chief Information Officer: NATHALY SERRANO ([phone])[facility] ([facility])[address] [place] [address] LEUKOCYTE MORPHOLOGY FINDING IN BLOOD Normal Normal [facility] Comment on above: Performed By: #### L [id number], [id number] ####Chief Information Officer: FREDRICK KHAN ([phone])[facility])[address] [place] [address]#### [id number] ####Chief Information Officer: NATHALY SERRANO ([phone])[facility])[address] [place] [address] LEUKOCYTES (10*3/UL) NUCLEATED ERYTHROCYTE ADJUST 16.6 10*3/uL High 3.6-10.7 [facility] Comment on above: Performed By: #### L [id number], [id number] ####Chief Information Officer: FREDRICK KHAN ([id number])[facility] [place] ([facility])[address] [place] [address]#### [id number] ####Chief Information Officer: NATHALY SERRANO ([phone])[facility] ([facility])[address] [place] [address] LYMPHOCYTES (10*3/UL) IN BLOOD BY MANUAL COUNT 0.7 10*3/uL Low 1.0-4.3 [facility] Comment on above: Performed By: #### L [id number], [id number] ####Chief Information Officer: FREDRICK KHAN ([phone])[facility] [place] ([facility])[address] [place] [address]#### [id number] ####Chief Information Officer: NATHALY SERRANO ([phone])[facility])[address] [place] [address] LYMPHOCYTES TOTAL PER COUNTED LEUKOCYTES BY MANUAL COUNT 4 Normal [facility] Comment on above: Performed By: #### L [id number], [id number] ####Chief Information Officer: FREDRICK KHAN ([id number])[facility] [place] ([facility])[address] [place] [address]#### [id number] ####Chief Information Officer: NATHALY SERRANO ([phone])[facility] ([facility])[address] [place] [address] LYMPHOCYTES/100 LEUKOCYTES IN BLOOD BY MANUAL COUNT 4 % Low 20-40 [facility] Comment on above: Performed By: #### L [id number], [id number] ####Chief Information Officer: FREDRICK KHAN ([id number])[facility] [place] ([facility])[address] [place] [address]#### [id number] ####Chief Information Officer: NATHALY SERRANO ([phone])[facility] ([facility])[address] [place] [address] MONOCYTES (10*3/UL) IN BLOOD BY MANUAL COUNT 0.7 10*3/uL Normal 0.0-0.8 [facility] Comment on above: Performed By: #### L [id number], [id number] ####Chief Information Officer: FREDRICK KHAN ([phone])[facility] ([facility])[address] [place] [address]#### [id number] ####Chief Information Officer: NATHALY SERRANO ([phone])[facility] ([facility])[address] [place] [address] MONOCYTES TOTAL PER COUNTED LEUKOCYTES BY MANUAL COUNT 4 Normal [facility] Comment on above: Performed By: #### L [id number], [id number] ####Chief Information Officer: FREDRICK KHAN ([phone])[facility] ([facility])[address]#### [id number] ####Chief Information Officer: NATHALY SERRANO ([phone])[facility] ([facility])[address] [place] [address] MONOCYTES/100 LEUKOCYTES IN BLOOD BY MANUAL COUNT 4 % Normal 2-10 [facility] Comment on above: Performed By: #### L [id number], [id number] ####Chief Information Officer: FREDRICK KHAN ([phone])[facility] ([facility])[address]#### [id number] ####Chief Information Officer: NATHALY SERRANO ([phone])[facility] ([facility])[address] [place] [address] NEUTROPHILS (SEGS+BANDS) (10*3/UL) BY MANUAL COUNT 15.3 10*3/uL High 1.8-7.0 [facility] Comment on above: Performed By: #### L [id number], [id number] ####Chief Information Officer: FREDRICK KHAN ([id number])[facility] [place] (SB[facility])155 [place] [address] [place]#### [id number] ####Chief Information Officer: NATHALY SERRANO ([phone])[facility] ([facility])[address] [place] [address] NEUTROPHILS TOTAL PER COUNTED LEUKOCYTES BY MANUAL COUNT 92 Normal [facility] Comment on above: Performed By: #### L [id number], [id number] ####Chief Information Officer: FREDRICK KHAN ([id number])[facility] [place] ([facility])[address]#### [id number] ####Chief Information Officer: NATHALY SERRANO ([phone])[facility] ([facility])[address] [place] [address] PLATELET CLUMP IN BLOOD BY LIGHT MICROSCOPY Present Abnormal (none) [facility] Comment on above: Result Comment: Pres ent - recommend redrawing in Sodium Citrate Performed By: #### L [id number], [id number] ####Chief Information Officer: FREDRICK KHAN ([id number])[facility] (SB[facility])[address]#### [id number] ####Chief Information Officer: NATHALY SERRANO ([id number])[facility] ([facility])[address] [place] [address] RBC MORPHOLOGY IN BLOOD Normal Normal S [facility] Comment on above: Performed By: #### L [id number], [id number] ####Chief Information Officer: FREDRICK KHAN ([phone])[facility] ([facility])[address] [place] [address] [place]#### [id number] ####Chief Information Officer: NATHALY SERRANO ([phone])[facility] ([facility])[address] [place] [address] SEGEMENTED NEUTROPHILS/100 LEUKOCYTES BY MANUAL COUNT 92 % High 40-80 [facility] Comment on above: Performed By: #### L [id number], [id number] ####Chief Information Officer: FREDRICK KHAN ([id number])[facility] [place] (SBHLAB)[address] [place] [address]#### [id number] ####Chief Information Officer: NATHALY SERRANO ([id number])[facility] ([facility])[address] [place] [address] MISCELLANEOUS SENDOUT TESTon 11-03-2023 RESULT See Comment Normal [facility] Comment on above: Order Comment: Bacte carol isolate Result Comment: SHANNAN Zavala COMMENTS:Antimicrobial Susceptibility - AnaerobeSource: BloodCollected: 11/03/2023 21:04Final ReportSusceptibility ResultsOrganism: Bacteroides fragilis groupAmpicillin/Sulbactam Interpretation: SUSCEPTIBLEMIC (ug/mL): 4/2Meropenem Interpretation: SUSCEPTIBLEMIC (ug/mL): 0.25Metronidazole Interpretation: SUSCEPTIBLEMIC (ug/mL): 2Penicillin Interpretation: RESISTANTMIC (ug/mL): >=64Piperacillin/Tazobactam Interpretation: SUSCEPTIBLEMIC (ug/mL): 8/4Testing performed by:[employer] [id number] [place] [address] Performed By: #### L [id number] ####[facility] ([facility])[address] [place] [address] [place] Manual differential performe d Ql (Bld)Ordered By: Darleen Soto on 11-03-2023 Cells Counted Total (Bld) [#] 100 {cells} [facility] Differential Method Automated differenti al reported after manual slide review [facility] Interpretation and review of laboratory results Abnormal [facility] Leukocyte morphology finding Nom (Bld) Normal [facility] Lymphocytes (Bld) [#/Vol] 0.7 10*3/uL Low 1.0 - 4.3 10*3/uL [facility] Lymphocytes Manual 4 [facility] Lymphocytes/100 WBC (Bld) 4 % Low 20 - 40 % [facility] Monocytes (Bld) [#/Vol] 0.7 10*3/uL 0.0 - 0.8 10*3/uL [facility] Monocytes Manual 4 [facility] alth Monocytes/100 WBC (Bld) 4 % 2 - 10 % [facility] Neutrophils (Bld) [#/Vol] 15.3 10*3/uL High 1.8 - 7.0 10*3/uL [facility] Neutrophils Manual 92 [facility] Platelet clump LM Ql (Bld) Present Abnormal (none) [facility] Comment on above: Present - recommend redrawing in Sodium Citrate RBC morphology finding Nom (Bld) Normal [facility] Segmented neutrophils/100 WBC (Bld) 92 % High 40 - 80 % [facility] WBC corrected for nucl RBC (Bld) [#/Vol] 16.6 10*3/uL High 3.6 - 10.7 10*3/uL [facility] Slide sent for pathology review Platelet count verified by manual estimate. [facility] No Panel Informationon 11-03 Interpretation and review of laboratory results Abnormal [facility] Interpretation and review of laboratory results Abnormal [facility] Interpretation and review of laboratory results Abnormal [facility] PATHOLOGY REVIEWon PATHOLOGY REVIEW Normal [facility] Comment on above: Result Comment: Thro mbocytosis.Leukocytosis with absolute mature neutrophilia and absolute lymphopenia. Occasional neutrophils show toxic granulation and/or cytoplasmic vacuoles.Microcytic anemia.Blasts are not identified.Richard Moseley DO. Performed By: #### L [id number], [id number] ####Chief Information Officer: FREDRICK KHAN ([id number])[facility] ([facility])[address] [place] [address]#### [id number] ####Chief Information Officer: NATHALY SERRANO ([id number])[facility] ([facility] PROTIME AND APTTon 4 aPTT Coag (Bld) [Time] 24.6 s Normal 20.0-30.5 [facility] Comment on above: Performed By: #### L [id number] ####Chief Information Officer: FREDRICK KHAN ([id number])[facility] ([facility])[address] [place] [address] INR Coag (PPP) [Relative time] 1.2 {INR} High 0.9-1.1 [facility] Comment on above: Result Comment: Alvaro mmended Anticoagulant Therapy: SEE BELOW----- INR of 2.0 - 3.0 : - Prophylaxis of Venous Thrombosis (high-risk surgery) - Treatment of Venous Thrombosis - Treatment of Pulmonary Embolism (Includes tissue heart valves, Acute Myocardial Infarction to prevent systemic embolism, Valvular Heart Disease, and Atrial Fibrillation)----- INR of 2.5 - 3.5 : - Mechanical Prosthetic Valves (high risk) - If oral anticoagulant therapy is used to prevent Myocardial Infarction Performed By: #### L [id number] ####Chief Information Officer: FREDRICK KHAN ([id number])[facility] KHOURY ([facility])[address] PT Coag (PPP) [Time] 13.1 s High 9.0-12.0 [facility] Comment on above: Performed By: #### L [id number] ####Chief Information Officer: FREDRICK KHAN ([phone])[facility]ENTERMaik [facility] CENTERDinesh ([facility])[address] [place] [address] SARS-COV-2, FLU A/B, AND RSV COMBOon 11-03-2023 SARS-CoV-2 (COVID-19) RNA JACKIE+probe Ql (Unsp spec) Normal [facility] Comment on above: Performed By: #### L [id number] ####Chief Information Officer: FREDRICK KHAN ([id number])[facility]AK[facility] ([facility])[address] [place] [address] TROPONIN Ion 11-03-2023 Troponin I.cardiac [Mass/Vol] ng/mL Normal <0.034 [facility] Comment on above: Result Comment: SHANNAN R COMMENTS:Patients with high levels of Biotin oral intake (ie >5 mg/day) may have falsely decreased Troponin levels. Performed By: #### L [id number] ####Chief Information Officer: FREDRICK KHAN ([id number])[facility] ([facility])[address] TROPONIN, WITH SERIAL REFLEX on 11-03-2023 Troponin I.cardiac [Mass/Vol] ng/mL Normal <0.034 [facility] Comment on above: Result Comment: SHANNAN Zavala COMMENTS:Patients with high levels of Biotin oral intake (ie >5 mg/day) may have falsely decreased Troponin levels. Performed By: #### L [id number], [id number], LAB15, LAB20 ####Chief Information Officer: FREDRICK KHAN ([id number])[facility] [place] ([facility])[address] [place] [address] Troponin I.cardiac [Mass/Vol ]on 11-03-2023 Interpretation and review of laboratory results Normal [facility] Patients with high levels of Biotin oral intake (ie >5 mg/day) may have falsely decreased Troponin levels. [facility] XR Chest Single viewon 11-03 1. Stable examination. No acute findings. 2. Gastric distention, nonspecific. Report Dictated on Electronically Signed By: Jairo Hughes MD Electronically Signed Date/Time: 11/03/2023 8:07 PM EST [facility] Patient Name: PRISCILA CHA : 1955 Exam Date/Time: 11/03/2023 19:57 Procedure: XR CHEST 1 VIEW Ordering Provider: LUNA MICHAEL Reason For Exam: bilateral upper quadrant pain CHEST PORTABLE CLINICAL INDICATION: bilateral upper quadrant pain TECHNIQUE: Portable chest x-ray(s). COMPARISON: June,. FINDINGS: Cardiac and mediastinal silhouette within normal limits. Lungs show interstitial prominence or coarsening bilaterally, about the same. No focal consolidation or apparent pneumothorax. Degenerative change again noted in the thoracic spine. Mild gastric distention incidentally noted. [facility] Jairo Hughes MD - 11/03/2023 Patient Name: PRISCILA CHA : 1955 Exam Date/Time: 11/03/2023 19:57 Procedure: XR CHEST 1 VIEW Ordering Provider: LUNA MICHAEL Reason For Exam: bilateral upper quadrant pain CHEST PORTABLE CLINICAL INDICATION: bilateral upper quadrant pain TECHNIQUE: Portable chest x-ray(s). COMPARISON: June,. FINDINGS: Cardiac and mediastinal silhouette within normal limits. Lungs show interstitial prominence or coarsening bilaterally, about the same. No focal consolidation or apparent pneumothorax. Degenerative change again noted in the thoracic spine. Mild gastric distention incidentally noted. IMPRESSION: 1. Stable examination. No acute findings. 2. Gastric distention, nonspecific. Report Dictated on Electronically Signed By: Jairo Hughes MD Electronically Signed Date/Time: 11/03/2023 8:07 PM EST [employer] Radiology Study observation (narrative) [employer] [facility] XR Chest Single viewOrdered By: Jairo Hughes on 11-03-2023 [employer] Work Phone: CNOVon 10-30-2023 CNOV Office Visit (AGPOB1 ) PRISCILA CHA ([id number]) 1955 F Date Time Provider Department 10/30/23 1:45 PM RUBÉN JIMENES [id number] During your visit today, we recorded the following information about you: Respiration Weight Height 18/minute 60.8 kg 1.6 m Rubén Jimenes MD 10/30/2023 2:18 PM Signed ORTHOPAEDIC OFFICE NOTE CHIEF COMPLAINT: Right total hip arthroplasty HISTORY OF PRESENT ILLNESS: Priscila Cha is a 67 year old female who presents for Postoperative valuation following right total hip arthroplasty on 10/16/2023. Overall she is doing okay. She still in some significant soreness along the hip. She is ambulate with assistance of a walker at home. She is working with in-home physical therapy to be set to transition to outpatient physical therapy early next week. She denies current fevers chills nausea vomiting weight loss fatigue or malaise. She is having some constipation that is responding well to milk of magnesia. Reviewed nursing note and current pain scale. PAST MEDICAL HISTORY Diagnosis Date Anxiety Arthritis Atrophic vaginitis Chronic pain Constipation COPD (chronic obstructive pulmonary disease) (HCC) Depression Dyspareunia in female Headache, migraine Hemorrhoids IBS (irritable bowel syndrome) patient denies IBS pt will d/w PCP Menopausal and female climacteric states Multilevel degenerative disc disease Panic disorder Shingles recurring Sinusitis Sleep apnea Spondylolisthesis at L5-S1 level Urinary frequency PAST SURGICAL HISTORY Procedure Laterality Date BACK SURGERY HX 06/2017 cage around discs CATARACT EXTRACTION HX 2008 COLONOSCOPY 01/10/2018 EXTENSIVE JAW SURGERY 1983 SEPTOPLASTY 1985 TONSILLECTOMY HX age 4 FAMILY HISTORY Problem Relation Age of Onset Coronary Artery Disease Mother Coronary Artery Disease Father Colon Cancer Paternal Grandmother Arthritis Other other (Congestive heart failure) Other Thyroid Other Disorder Social History Tobacco Use Smoking status: Former Packs/day: .75 Types: Cigarettes Quit date: 09/27/2023 Years since quittin.0 Smokeless tobacco: Never Tobacco comments: Trying to quit Vaping Use Vaping Use: Never used Substance Use Topics Alcohol use: No Drug use: Yes Types: Marijuana Comment: THC gummies MEDICATIONS: Current Outpatient Medications Medication Sig dicyclomine (BENTYL) 20 mg tablet Take 20 mg by mouth three times a day as needed (GI upset). MAGNESIUM GLYCINATE ORAL Take 400 mg by mouth once daily. HERBAL THERAPY CBD Gummie- Take one by mouth daily at bedtime as needed for insomnia aspirin, enteric coated (ADULT LOW DOSE ASPIRIN) 81 mg EC tablet Take 1 tablet by mouth two times a day for 21 days. albuterol HFA (PROVENTIL HFA, VENTOLIN HFA) 90 mcg/actuation inhaler Inhale 2 Puffs as instructed every 4 hours as needed for wheezing/shortness of breath. cholecalciferol (VITAMIN D3) 1,000 unit tab tablet 2 tabs Orally Once a day TRELEGY ELLIPTA 200-62.5-25 mcg inhalation powder Inhale 1 Puff as instructed once daily. takes in morning traZODone (DESYREL) 50 mg tablet Take 50 mg by mouth daily at bedtime. clonazePAM (KLONOPIN) 0.5 mg tablet Take 0.25 mg by mouth two times a day as needed for anxiety. Patient reports that Klonopin 0.5mg daily prn is prescribed but that when at home she usually takes Klonopin 0.25mg bid prn Paula Bernal [facility] October 17, 2023 7:43 AM gabapentin (NEURONTIN) 300 mg capsule Take 300 mg by mouth daily at bedtime. oxyCODONE IR (ROXICODONE) 5 mg immediate release tablet Take 1 tablet by mouth every 6 hours as needed for pain for up to 7 days. for pain. No current facility-administered medications for this visit. ALLERGIES: ALLERGIES Allergen Reactions Levaquin [Levofloxa* GI Upset Sulfa (Sulfonamide * Vomiting PHYSICAL EXAMINATION: Resp 18 Ht 5' 3 (1.60m) Wt 134 lb (60.8kg) BMI 23.74 kg/(m2). General Appearance: Well appearing, alert, in no acute distress, well-hydrated, well nourished. Skin: Skin color, texture, turgor normal, no suspicious rashes or lesions. Psych: Patient is alert and oriented to person, time and place. Mood and affect are normal. Respiratory: Breathing is symmetric and unlabored Gait: Patient was examined in a wheelchair today. Extremities: Right lower extremity examined. Laterally based incision is well-healed without drainage or sign of infection. There is no focal tenderness or palpable mass. Gentle range of motion of the hip is relatively pain-free. Lymphatic: There is no palpable lymphadenopathy Peripheral Pulses: Normal. Neurologic: Bilateral lower extremities were examined. There is 5/5 strength with hip flexion, knee extension, dorsiflexion, EHL, plantar flexion. Sensation intact in all nerve dermatomes IMAGES: Physician office building radiographs, 10/30/2023. AP view (more content not included)... Normal [facility] 10-23-2023 [facility] Telephone (AK52B) PRISCILA CHA ([id number]) 1955 F Date Time Provider Department 10/23/23 CARINE MCKNIGHT AK52B During your visit today, we recorded the following information about you: Allergies As of Date: 10/23/2023 Noted Allergy Reaction LEVAQUIN (LEVOFLOXACIN) 06/28/2017 8 - GI Upset SULFA (SULFONAMIDE ANTIBIOTICS) 06/28/2017 11 - Vomiting Date Reviewed: 10/18/2023 Reviewed by: Shira Ramos, PT - Fully Assessed Reason for Visit: Post Op Call [[id number]] Prescriptions as of 10/23/2023 - MAGNESIUM GLYCINATE ORAL Take 400 mg by mouth once daily. - HERBAL THERAPY CBD Gummie- Take one by mouth daily at bedtime as needed for insomnia - oxyCODONE IR (ROXICODONE) 5 mg immediate release tablet Take 1-2 tablets by mouth every 6 hours as needed for up to 7 days. - aspirin, enteric coated (ADULT LOW DOSE ASPIRIN) 81 mg EC tablet Take 1 tablet by mouth two times a day for 21 days. - docusate sodium (COLACE) 100 mg capsule Take 1 capsule by mouth two times a day for 10 days. - albuterol HFA (PROVENTIL HFA, VENTOLIN HFA) 90 mcg/actuation inhaler Inhale 2 Puffs as instructed every 4 hours as needed for wheezing/shortness of breath. - cholecalciferol (VITAMIN D3) 1,000 unit tab tablet 2 tabs Orally Once a day - TRELEGY ELLIPTA 200-62.5-25 mcg inhalation powder Inhale 1 Puff as instructed once daily. takes in morning - traZODone (DESYREL) 50 mg tablet Take 50 mg by mouth daily at bedtime. - clonazePAM (KLONOPIN) 0.5 mg tablet Take 0.25 mg by mouth two times a day as needed for anxiety. Patient reports that Klonopin 0.5mg daily prn is prescribed but that when at home she usually takes Klonopin 0.25mg bid prn Paula Bernal, [facility] October 17, 2023 7:43 AM - gabapentin (NEURONTIN) 300 mg capsule Take 300 mg by mouth daily at bedtime. Problem List As Of Date 10/23/2023 Noted Resolved Spondylolisthesis at L5-S1 level [M43.17] Chronic pain [G89.29] Multilevel degenerative disc disease [M53.9] Spondylolisthesis of lumbar region [M43.16] 07/06/2017 Spondylolisthesis at L4-L5 level [M43.16] 07/06/2017 COPD (chronic obstructive pulmonary disease) (H* Preop examination [Z01.818] ANJANA (obstructive sleep apnea) [G47.33] 09/27/2023 S/P total right hip arthroplasty [Z96.641] 10/17/2023 Primary osteoarthritis involving multiple joint*10/17/2023 Encounter Status:Closed by CARINE MCKNIGHT on 10/23/23 [facility] CNPNon 10-20-2023 CNPN Telephone (HCSIND) PRISCILA CHA ([id number]) 1955 F Date Time Provider Department 10/20/23 MARCIAL HO HCSIND During your visit today, we recorded the following information about you: Marcial Ho, CLAM SHUCKER 10/20/2023 4:59 PM Signed Pt/CG states that this morning 10/20/23, aroung 6 am, pt was walking to the bathroom with her /CG when pt started feeling very weak and legs were shaky and needed to lie down abruptly.Pts lowered her to the floor to regain her composure and then got her up again to use the restroom and then get pt back to the couch. Pt states she is a little more sore all over but no increased pain in hip which has been significant to start with. Pt has only been taking 1 oxy and was reminded per prescription that she can take 2 if needed and also take OTC tylenol if needed per Dr recommendations on summary d/c sheet. Pt/CG were also reminded that, according to DC summary, pt can take Miralax or dulcolax if needed for constipation. Allergies As of Date: 10/20/2023 Noted Allergy Reaction LEVAQUIN (LEVOFLOXACIN) 06/28/2017 8 - GI Upset SULFA (SULFONAMIDE ANTIBIOTICS) 06/28/2017 11 - Vomiting Date Reviewed: 10/18/2023 Reviewed by: Shira Ramos, PT - Fully Assessed Reason for Visit: Home Care [4073] Cmt: Pain and possible fall Prescriptions as of 10/20/2023 - MAGNESIUM GLYCINATE ORAL Take 400 mg by mouth once daily. - HERBAL THERAPY CBD Gummie- Take one by mouth daily at bedtime as needed for insomnia - oxyCODONE IR (ROXICODONE) 5 mg immediate release tablet Take 1-2 tablets by mouth every 6 hours as needed for up to 7 days. - aspirin, enteric coated (ADULT LOW DOSE ASPIRIN) 81 mg EC tablet Take 1 tablet by mouth two times a day for 21 days. - docusate sodium (COLACE) 100 mg capsule Take 1 capsule by mouth two times a day for 10 days. - albuterol HFA (PROVENTIL HFA, VENTOLIN HFA) 90 mcg/actuation inhaler Inhale 2 Puffs as instructed every 4 hours as needed for wheezing/shortness of breath. - cholecalciferol (VITAMIN D3) 1,000 unit tab tablet 2 tabs Orally Once a day - TRELEGY ELLIPTA 200-62.5-25 mcg inhalation powder Inhale 1 Puff as instructed once daily. takes in morning - traZODone (DESYREL) 50 mg tablet Take 50 mg by mouth daily at bedtime. - clonazePAM (KLONOPIN) 0.5 mg tablet Take 0.25 mg by mouth two times a day as needed for anxiety. Patient reports that Klonopin 0.5mg daily prn is prescribed but that when at home she usually takes Klonopin 0.25mg bid prn Paula Bernal, [facility] October 17, 2023 7:43 AM - gabapentin (NEURONTIN) 300 mg capsule Take 300 mg by mouth daily at bedtime. Problem List As Of Date 10/20/2023 Noted Resolved Spondylolisthesis at L5-S1 level [M43.17] Chronic pain [G89.29] Multilevel degenerative disc disease [M53.9] Spondylolisthesis of lumbar region [M43.16] 07/06/2017 Spondylolisthesis at L4-L5 level [M43.16] 07/06/2017 COPD (chronic obstructive pulmonary disease) (H* Preop examination [Z01.818] ANJANA (obstructive sleep apnea) [G47.33] 09/27/2023 S/P total right hip arthroplasty [Z96.641] 10/17/2023 Primary osteoarthritis involving multiple joint*10/17/2023 Encounter Status:Closed by MARCIAL HO on 10/20/23 Normal [facility] [place] 10-19-2023 CNPN Telephone (HCSIND) SHAHIDAPRISCILA Chambers ([id number]) 1955 F Date Time Provider Department 10/19/23 SHIRA RAMOS HCSIND During your visit today, we recorded the following information about you: Shira Ramos, PT 10/19/2023 12:50 PM Signed Good Afternoon, Pt was seen for SOC/admission to [facility] PT services on 10/18/23. PT POC 2w1; 3w1; 2w1 with plan to dc to outpatient - outpatient PT is already scheduled for 11/06. On medication review, the following variances were noted in home vs dc instructions and follow-up is needed, please. Medication Variances in home at SOC vs discharge instructions: *CBD Gummies - one 20 mg gummy by mouth daily at bedtime as needed for insomnia- not on dc instructions. Is this ok for pt to take? If so, please add to pt's EMR. *Magnesium Glycinate 400 mg tablet one tab by mouth daily - not on dc instructions - is pt allowed to take? Please let COS RN know (attached to this call) if pt is able to continue to take so she can add to med list. Updates to medications that were on DC instructions: *PRN reason added to Oxycodone (Pain) *Trelegy Ellipta - frequency, route and dose added *Albuterol - PRN reason added *Trazodone - route, dosage, frequency added Interactions unable to be completely run this date as medication list/profile incomplete d/t pt taking additional medications not on list at DC. COS nurse to add and run as per SOP. No severe interactions this date. Thank you for allowing us to participate in the care of you patient. Please don't hesitate to reach out to me directly with any questions, concerns, or further recommendations. Shira Jacob, PT [phone] Allergies As of Date: 10/19/2023 Noted Allergy Reaction LEVAQUIN (LEVOFLOXACIN) 06/28/2017 8 - GI Upset SULFA (SULFONAMIDE ANTIBIOTICS) 06/28/2017 11 - Vomiting Date Reviewed: 10/18/2023 Reviewed by: Shira Ramos, PT - Fully Assessed Reason for Visit: Home Care [4073] Cmt: PT SOC Prescriptions as of 10/19/2023 - oxyCODONE IR (ROXICODONE) 5 mg immediate release tablet Take 1-2 tablets by mouth every 6 hours as needed for up to 7 days. - aspirin, enteric coated (ADULT LOW DOSE ASPIRIN) 81 mg EC tablet Take 1 tablet by mouth two times a day for 21 days. - docusate sodium (COLACE) 100 mg capsule Take 1 capsule by mouth two times a day for 10 days. - albuterol HFA (PROVENTIL HFA, VENTOLIN HFA) 90 mcg/actuation inhaler Inhale 2 Puffs as instructed every 4 hours as needed for wheezing/shortness of breath. - cholecalciferol (VITAMIN D3) 1,000 unit tab tablet 2 tabs Orally Once a day - TRELEGY ELLIPTA 200-62.5-25 mcg inhalation powder Inhale 1 Puff as instructed once daily. takes in morning - traZODone (DESYREL) 50 mg tablet Take 50 mg by mouth daily at bedtime. - clonazePAM (KLONOPIN) 0.5 mg tablet Take 0.25 mg by mouth two times a day as needed for anxiety. Patient reports that Klonopin 0.5mg daily prn is prescribed but that when at home she usually takes Klonopin 0.25mg bid prn Paula Bernal, [facility] October 17, 2023 7:43 AM - gabapentin (NEURONTIN) 300 mg capsule Take 300 mg by mouth daily at bedtime. Meds Comments as of 10/18/2023: *CBD Gummies - one gummy by mouth daily at bedtime as needed for insomnia *Magnesium Glycinate 400 mg tablet one tab by mouth daily Problem List As Of Date 10/19/2023 Noted Resolved Spondylolisthesis at L5-S1 level [M43.17] Chronic pain [G89.29] Multilevel degenerative disc disease [M53.9] Spondylolisthesis of lumbar region [M43.16] 07/06/2017 Spondylolisthesis at L4-L5 level [M43.16] 07/06/2017 COPD (chronic obstructive pulmonary disease) (H* Preop examination [Z01.818] ANJANA (obstructive sleep apnea) [G47.33] 09/27/2023 S/P total right hip arthroplasty [Z96.641] 10/17/2023 Primary osteoarthritis involving multiple joint*10/17/2023 Encounter Status:Closed by SHIRA RAMOS on 10/19/23 Normal [facility] CNCOon 10-18-2023 CNCO Letter Text [facility] HEALTHon 10-17-2023 ALLIED HEALTH HNO ID: [id number] Author: CARINE MCKNIGHT RN Service: Nursing Author Type: Registered Nurse Type: Allied Health Filed: 10/17/2023 09:43 Note Text: SPECIALTY PASTE UP COPY CAMERA OPERATOR NOTE SERVICE DATE: 10/17/2023 SERVICE TIME: 914 Met with patient at bedside in PACU, she is doing ok, having some increased pain, pain management consulted. She is planning discharge home with hhc, hopeful today after PT/OT. She has all DME needs, is agreeable to [facility] at discharge, Outaptietn PT set up at [facility]. Discharge education will be provided, I will follow up with her at home. DISCHARGE PLAN: Home - with spouse DISCHARGE NEEDS: PT EDUCATION: Constipation, Pain, Signs/symptioms of infection, Swelling, Incision care, Pain medication regimen, and Signs/symptoms to report to physician OUTPATIENT APPOINTMENTS: Already scheduled with [facility], 11/06 SIGNATURE: Carine Mcknight RN PATIENT NAME: Priscila Cha DATE: October 17, 2023 TIME: 9:41 AM PAGER/CONTACT #: [phone] [facility] ANES POSTPROC EVALon 024 ANES POSTPROC EVAL HNO ID: [id number] Author: BARBARA FRANKLIN MD Service: Anesthesiology Author Type: Physician Type: Anesthesia Postprocedure Evaluation Filed: 10/17/2023 18:04 Note Text: POST ANESTHESIA EVALUATION NOTE : 1955 Procedure Summary Date: 10/16/23 Room / Location: [place] OR / [place] OR Anesthesia Start: 758 Anesthesia Stop: 999 Procedure: ARTHROPLASTY HIP (Right: Hip) Diagnosis: Primary osteoarthritis of right hip (Primary osteoarthritis of right hip [M16.11]) Surgeons: Rubén Jimenes MD Responsible Provider: Barbara Franklin MD Anesthesia Type: general ASA Status: 3 Anesthesia Type: general Airway Type: ETT Last Vitals Vitals Value Taken Time BP 104/61 10/16/23 1730 Temp 36.5 ?C (97.7 ?F) 10/16/23 1337 HR SpO2 55 10/16/232007 Resp 15 10/16/232007 SpO2 99 % 10/16/232007 Vitals shown include unfiled device data. Post Anesthesia Patient Status Anticipated Disposition: inpatient floor planned admission. Neurological Status: aware and responsive. Pulmonary Status: breathing comfortably on room air Airway Control: returned to baseline unsupported. Cardiovascular Status: stable. Pain Management: clinically adequate Postoperative Hydration: acceptable. Intraoperative Events: no significant anesthesia events Post Operative Nausea/Vomiting Status: no significant post operative nausea or vomiting Recommendation: further care per PACU/ICU/floor team. Anesthesia Observations No Documentation SIGNATURE: Barbara Franklin MD PATIENT NAME: Priscila Cha DATE: October 17, 2023 TIME: 6:03 PM CSN: [id number] Normal [facility] Basic metabolic 2000 panelon 10-17-2023 Anion gap [Moles/Vol] 7 mmol/L Low 9-18 [facility] Comment on above: Order Comment: Speci men Type: BLOOD SPECIMENOrdering Facility: [facility] Address: [address] [place] [address] Performed By: #### 2 4321-2 ####[facility] LABORATORYCLIA [id number] [place] [address] [place] Calcium [Mass/Vol] 8.6 mg/dL Normal 8.5-10.2 [facility] Comment on above: Order Comment: Speci men Type: BLOOD SPECIMENOrdering Facility: [facility] Address: [address] [place], [place] [address] Performed By: #### 2 4321-2 ####[facility] LABORATORYCLIA [id number] [address] OF [facility] Chloride [Moles/Vol] 103 mmol/L Normal 97-105 [facility] Comment on above: Order Comment: Speci men Type: BLOOD SPECIMENOrdering Facility: [facility] Address: [address] [place] [address] Performed By: #### 2 4321-2 ####[facility] LABORATORYCLIA [id number] [address] OF [place] CO2 [Moles/Vol] 25 mmol/L Normal 22-30 [facility] Comment on above: Order Comment: Speci men Type: BLOOD SPECIMENOrdering Facility: [facility] Address: [address] [place] [address] Performed By: #### 2 4321-2 ####[facility] LABORATORYCLIA [id number] [address] Creatinine [Mass/Vol] 0.85 mg/dL Normal 0.58-0.96 [facility] Comment on above: Order Comment: Speci men Type: BLOOD SPECIMENOrdering Facility: [facility] Address: [address] [place] [address] Performed By: #### 2 4321-2 ####[facility] LABORATORYCLIA [id number] [address] Creatinine and Glomerular filtration rate.predicted panel (S/P/Bld) 75 mL/min/1.73m??? Normal >=60 [facility] Comment on above: Order Comment: Speci men Type: BLOOD SPECIMENOrdering Facility: [facility] Address: [address] [place] [address] Result Comment: Belia mated Glomerular Filtration Rate (eGFR) is calculated using the 2020 CKD-EPI creatinine equation. This equation utilizes serum creatinine, sex, and age as parameters. The creatinine assay has traceable calibration to isotope dilution-mass spectrometry. Refer to KDIGO guidelines for clinical interpretation. In patients with unstable renal function, e.g. those with acute kidney injury, the eGFR may not accurately reflect actual GFR. Performed By: #### 2 4321-2 ####[facility] LABORATORYCLIA [id number] [place] [address] [place] Glucose [Mass/Vol] 132 mg/dL High 74-99 [facility] Comment on above: Order Comment: Maddi fede Type: BLOOD SPECIMENOrdering Facility: [facility] Address: [address] [place] [address] Result Comment: The [place] [employer] (ADA) provides guidance for cutoff values for fasting glucose and random glucose. The ADA defines fasting as no caloric intake for at least 8 hours. Fasting plasma glucose results between 100 to 125 mg/dL indicate increased risk for diabetes (prediabetes). Fasting plasma glucose results greater than or equal to 126 mg/dL meet the criteria for diagnosis of diabetes. In the absence of unequivocal hyperglycemia, results should be confirmed by repeat testing. In a patient with classic symptoms of hyperglycemia or hyperglycemic crisis, random plasma glucose results greater than or equal to 200 mg/dL meet the criteria for diagnosis of diabetes. Reference: Standards of Medical Care in Diabetes 2016, [place] [employer]. Diabetes Care. 2016.39(Suppl 1). Performed By: #### 2 4321-2 ####[facility] LABORATORYCLIA [id number] [place] [address] [place] Potassium [Moles/Vol] 4.2 mmol/L Normal 3.7-5.1 [facility] Comment on above: Order Comment: Maddi mistry Type: BLOOD SPECIMENOrdering Facility: [facility] Address: [address] [place] [address] Performed By: #### 2 4321-2 ####[facility] LABORATORYCLIA [id number] [place] [id number] [place] Sodium [Moles/Vol] 135 mmol/L Low 136-144 [facility] Comment on above: Order Comment: Maddi mistry Type: BLOOD SPECIMENOrdering Facility: [facility] Address: [address] [place] [address] Performed By: #### 2 4321-2 ####[facility] LABORATORYCLIA [id number] [address] STATES OF [facility] Urea nitrogen [Mass/Vol] 21 mg/dL Normal 7-21 [facility] Comment on above: Order Comment: Speci men Type: BLOOD SPECIMENOrdering Facility: [facility] Address: [address] [place] [address] Performed By: #### 2 4321-2 ####[facility] LABORATORYCLIA [id number] [address] [place] CBC panel Auto (Bld)on 10-17 Erythrocyte distribution width (RBC) [Ratio] 17.2 % High 11.5-15.0 [facility] Comment on above: Order Comment: Speci men Type: BLOOD SPECIMENOrdering Facility: [facility] Address: [address] [place] [address] Performed By: #### 5 8410-2 ####[facility] LABORATORYCLIA [id number] [address] STATES [facility] Hematocrit (Bld) [Volume fraction] 30.4 % Low 36.0-46.0 [facility] Comment on above: Order Comment: Speci men Type: BLOOD SPECIMENOrdering Facility: [facility] Address: [address] [place] [address] Performed By: #### 5 8410-2 ####[facility] LABORATORYCLIA [id number] [address] [place] Hemoglobin (Bld) [Mass/Vol] 10.0 g/dL Low 11.5-15.5 [facility] Comment on above: Order Comment: Speci men Type: BLOOD SPECIMENOrdering Facility: [facility] Address: [address] [place] [address] Performed By: #### 5 8410-2 ####[facility] LABORATORYCLIA [id number] [address] MCH (RBC) [Entitic mass] 27.9 pg Normal 26.0-34.0 [facility] Comment on above: Order Comment: Speci men Type: BLOOD SPECIMENOrdering Facility: [facility] Address: [address] [place] [address] Performed By: #### 5 8410-2 ####[facility] LABORATORYCLIA [id number] [address] MCHC (RBC) [Mass/Vol] 32.9 g/dL Normal 30.5-36.0 [facility] Comment on above: Order Comment: Speci men Type: BLOOD SPECIMENOrdering Facility: [facility] Address: [address] [place] [address] Performed By: #### 5 8410-2 ####[facility] LABORATORYCLIA [id number] [address] MCV (RBC) [Entitic vol] 84.7 fL Normal 80.0-100.0 [facility] Comment on above: Order Comment: Speci men Type: BLOOD SPECIMENOrdering Facility: [facility] Address: [address] [place] [address] Performed By: #### 5 8410-2 ####[facility] LABORATORYCLIA [id number] [address] Nucleated RBC (Bld) [#/Vol] 10*3/uL Normal <0.01 [facility] Comment on above: Order Comment: Speci men Type: BLOOD SPECIMENOrdering Facility: [facility] Address: [address] [place] [address] Performed By: #### 5 8410-2 ####[facility] LABORATORYCLIA [id number] [address] Platelet mean volume (Bld) [Entitic vol] 9.7 fL Normal 9.0-12.7 [facility] Comment on above: Order Comment: Speci men Type: BLOOD SPECIMENOrdering Facility: [facility] Address: [address] [place] [address] Performed By: #### 5 8410-2 ####[facility] LABORATORYCLIA [id number] [address] [place] Platelets (Bld) [#/Vol] 261 10*3/uL Normal 150-400 [facility] Comment on above: Order Comment: Speci men Type: BLOOD SPECIMENOrdering Facility: [facility] Address: [address] [place] [address] Performed By: #### 5 8410-2 ####[facility] LABORATORYCLIA [id number] [address] RBC (Bld) [#/Vol] 3.59 10*6/uL Low 3.90-5.20 [facility] Comment on above: Order Comment: Speci men Type: BLOOD SPECIMENOrdering Facility: [facility] Address: [address] [place] [address] Performed By: #### 5 8410-2 ####[facility] LABORATORYCLIA [id number] [address] WBC (Bld) [#/Vol] 14.51 10*3/uL High 3.70-11.00 [facility] Comment on above: Order Comment: Speci men Type: BLOOD SPECIMENOrdering Facility: [facility] Address: [address] [place] [address] Performed By: #### 5 8410-2 ####[facility] LABORATORYCLIA [id number] [address] CNDSon 10-17-2023 [facility] HNO ID: [id number] Author: RUBÉN JIMENES MD Service: Orthopaedic Surgery Author Type: Nurse Practitioner Type: Discharge Summary Filed: 10/17/2023 23:02 Note Text: Attestation signed by Rubén Jimenes MD at 10/17/2023 11:02 PM Rubén Jimenes MD DISCHARGE SUMMARY PATIENT NAME: Priscila Cha Code Status: Not on file Highest Readmission Risk Score: 16 The 30 day readmissions risk score is derived from an internally validated risk model which evaluates patient level characteristics, utilization history, medication orders and lab results up until the day of discharge. Patients with a score of 40 or above are considered highest risk for readmission. Specific patient level drivers will be listed at the bottom of the summary. Admission Information Admission Information ADMIT DATE: 10/16/2023 DISCHARGE DATE: 10/17/2023 MY DOCTORS AND MEDICAL TEAM: My Main Hospital Doctor: Rubén Jimenes MD Primary Care Provider: Leonid Dee Jr, MD My Medical Team Members: Treatment Team: Attending Provider: Rubén Jimenes MD MY CONDITION AT DISCHARGE: Stable REASON I WAS IN THE HOSPITAL: Surgical treatment of right hip osteoarthritis SUMMARY OF WHAT HAPPENED WHILE I WAS IN THE HOSPITAL: Patient prestented ot the hospital for surgical treatment of right hip osteoarthritis and underwent right total hip arthroplasty. The patient was admitted to the hospital postoperatively for pain control and to work with therapy until stable for discharge. OTHER PROBLEMS/DIAGNOSIS: Active Problems: * No active hospital problems. * Resolved Problems: * No resolved hospital problems. * OPERATIONS PERFORMED WHILE IN THE HOSPITAL: Right total hip arthroplasty IMPORTANT TEST/PROCEDURES: No procedures performed TEST RESULTS NOT AVAILABLE AT THIS TIME: No pending results Discharge Disposition Discharge Disposition: Home With Home Care Activity When You Leave the Hospital Weight-bearing limited to: Weightbearing as tolerated, right lower extremity. Posterior hip precautions Diet Instructions Resume your pre-hospital diet For Pain When You Leave the Hospital Use the dispensed medication (see prescription) Wound/Surgical Site Care Other: Dressing is water resistant. Okay to shower. Do not saturate. No tub bath x 2 weeks. Remove dressing on post op day #7, 10/20/2023. Once dressing removed okay to shower and wash with soap and water. No creams, lotions, ointments or peroxide. Leave open to air. Call Your Doctor If There is severe pain at the operative site You have persistent or heavy bleeding You have redness, swelling, pus or drainage from the wound Follow Up Appointments Follow-Up Appointment When: In 2 weeks Rubén Jimenes MD [phone] [address] [facility] [address] [facility] [address] PCP Requested Referral FOLLOW-UP APPOINTMENTS ALREADY SCHEDULED WITH A [facility] PROVIDER: Future Appointments Date Time Provider Department Center 10/30/2023 1:45 PM Rubén Jimenes MD [id number] [facility] POB 11/06/2023 2:45 PM Quinten Díaz, PT AKPTB [facility] ALLERGIES Allergen Reactions Levaquin [Levofloxa* GI Upset Sulfa (Sulfonamide * Vomiting DISCHARGE MEDICATION: Medication List START taking these medications aspirin, enteric coated 81 mg EC tablet Commonly known as: ADULT LOW DOSE ASPIRIN Take 1 tablet by mouth two times a day for 21 days. docusate sodium 100 mg capsule Commonly known as: COLACE Take 1 capsule by mouth two times a day for 10 days. oxyCODONE IR 5 mg immediate release tablet Commonly known as: ROXICODONE Take 1-2 tablets by mouth every 6 hours as needed for up to 7 days. CONTINUE taking these medications albuterol HFA 90 mcg/actuation inhaler Commonly known as: PROVENTIL HFA, VENTOLIN HFA cholecalciferol 1,000 unit Tab tablet Commonly known as: VITAMIN D3 clonazePAM 0.5 mg tablet Commonly known as: KlonoPIN gabapentin 300 mg capsule Commonly known as: NEURONTIN traZODone 50 mg tablet Commonly known as: DESYREL TRELEGY ELLIPTA 200-62.5-25 mcg inhalation powder Generic drug: cxvrryfemnt-kkxrosgnr-l ilanter STOP taking these medications traMADol 50 mg tablet Commonly known as: ULTRAM Where to Get Your Medications These medications were sent to - [facility] [place] [address] - [address] [facility] - [phone] [address] [facility] [address] aspirin, enteric coated 81 mg EC tablet docusate sodium 100 mg capsule oxyCODONE IR 5 mg immediate release tablet The patient's risk for 30-day readmission is determined using the following contributing factors: Pt variables contributing to increased readmission risk: 21 Most Recent BUN Result 19 Active Medication Orders 8.6 First Resulted Calcium During Admission 1 Insurance - Med (more content not included)... Normal [facility] Ella 10-17-2023 CNPN Telephone (HCSIND) PRISCILA CHA ([id number]) 1955 F Date Time Provider Department 10/17/23 SHIRA RAMOS HCSIND During your visit today, we recorded the following information about you: Shira Ramos, PT 10/17/2023 5:51 PM Signed Patient accepted and confirmed home health start of care (SOC) for 10/18/23. Visit time established. Allergies As of Date: 10/17/2023 Noted Allergy Reaction LEVAQUIN (LEVOFLOXACIN) 06/28/2017 8 - GI Upset SULFA (SULFONAMIDE ANTIBIOTICS) 06/28/2017 11 - Vomiting Date Reviewed: 10/17/2023 Reviewed by: Ewelina Talbert MD - Fully Assessed Reason for Visit: Home Care [4073] Cmt: PT SOC confirmation Prescriptions as of 10/17/2023 - oxyCODONE IR (ROXICODONE) 5 mg immediate release tablet Take 1-2 tablets by mouth every 6 hours as needed for up to 7 days. - aspirin, enteric coated (ADULT LOW DOSE ASPIRIN) 81 mg EC tablet Take 1 tablet by mouth two times a day for 21 days. - docusate sodium (COLACE) 100 mg capsule Take 1 capsule by mouth two times a day for 10 days. - albuterol HFA (PROVENTIL HFA, VENTOLIN HFA) 90 mcg/actuation inhaler Inhale 2 Puffs as instructed every 4 hours as needed. - cholecalciferol (VITAMIN D3) 1,000 unit tab tablet 2 tabs Orally Once a day - TRELEGY ELLIPTA 200-62.5-25 mcg inhalation powder - traZODone (DESYREL) 50 mg tablet - clonazePAM (KLONOPIN) 0.5 mg tablet Take 0.25 mg by mouth two times a day as needed for anxiety. Patient reports that Klonopin 0.5mg daily prn is prescribed but that when at home she usually takes Klonopin 0.25mg bid prn Paula Bernal, [facility] October 17, 2023 7:43 AM - gabapentin (NEURONTIN) 300 mg capsule Take 300 mg by mouth daily at bedtime. Problem List As Of Date 10/17/2023 Noted Resolved Spondylolisthesis at L5-S1 level [M43.17] Chronic pain [G89.29] Multilevel degenerative disc disease [M53.9] Spondylolisthesis of lumbar region [M43.16] 07/06/2017 Spondylolisthesis at L4-L5 level [M43.16] 07/06/2017 COPD (chronic obstructive pulmonary disease) (H* Preop examination [Z01.818] ANJANA (obstructive sleep apnea) [G47.33] 09/27/2023 S/P total right hip arthroplasty [Z96.641] 10/17/2023 Primary osteoarthritis involving multiple joint*10/17/2023 Encounter Status:Closed by SHIRA RAMOS on 10/17/23 Normal [facility] CNPN Telephone (HCSIND) PRISCILA CHA ([id number]) 1955 F Date Time Provider Department 10/17/23 ROBERTO PARK HCSIND During your visit today, we recorded the following information about you: Roberto Park PSS 10/17/2023 12:26 PM Signed Hugolo there! (Spoke with: Deja, spouse ) My name is NOEL Walker and I'm calling from [facility]. Your doctor wants to make sure you have the best care at home after leaving the hospital. Do you have a few minutes to chat about what to expect from home care? yes Before we start, have you received help from a home care company in the last 60 days? They might have assisted with things like bathing, medication, checking your blood pressure, or exercises. Our goal is to make your transition home smooth. A therapist (terrell one- nurse or therapist ) will visit you within 2 days of leaving the hospital to get you started with home care. Is that okay with you? YES They'll contact you the night before or the morning of the visit to tell you when they'll arrive. Would you like them to call or text you? Text preferred Spouse Deja [phone] Great! What address will we be seeing you at? [address] [place] [address] Do you have any upcoming appointments or things we need to schedule around? NO When they call or text, the number might be unfamiliar or blocked. If they leave a message, please reply so we can plan your visit. Homecare helps with your recovery. During the first visit, the therapist (terrell one- nurse or therapist) will talk with you, set goals, and plan your care. This visit might take one and a half to three hours. They'll figure out which services you need and how often they will see you. The purpose of homecare is to teach you or a family member or friend to manage your condition and provide any ordered treatments. Do you have someone to assist you at home? Spouse Deja They'll need to see your discharge instructions and medication bottles for any medications you are taking, both prescription and over the counter. Can you have those ready? YES Any questions so far? NO We understand it's not easy having new people in your home while you're recovering. Our caregivers will treat you with dignity and respect, and we ask the same in return. The safety of our patients and caregivers is important to us. We ask that you put away and secure any animals or weapons in the home prior to our caregivers arriving. We also ask that you, or anyone else in the home, are not under the influence of any substances, refrain from raising your voice, using profanity, or being threatening or aggressive during visits. If you don't have questions, I have just one more. Did you get a flu shot this year? NO Where did you get it? [facility], PSS 10/17/2023 12:25 PM Allergies As of Date: 10/17/2023 Noted Allergy Reaction LEVAQUIN (LEVOFLOXACIN) 06/28/2017 8 - GI Upset SULFA (SULFONAMIDE ANTIBIOTICS) 06/28/2017 11 - Vomiting Date Reviewed: 10/17/2023 Reviewed by: Ewelina Talbert MD - Fully Assessed Reason for Visit: Home Care [4073] Cmt: Confirmation call Prescriptions as of 10/17/2023 - oxyCODONE IR (ROXICODONE) 5 mg immediate release tablet Take 1-2 tablets by mouth every 6 hours as needed for up to 7 days. - aspirin, enteric coated (ADULT LOW DOSE ASPIRIN) 81 mg EC tablet Take 1 tablet by mouth two times a day for 21 days. - docusate sodium (COLACE) 100 mg capsule Take 1 capsule by mouth two times a day for 10 days. - albuterol HFA (PROVENTIL HFA, VENTOLIN HFA) 90 mcg/actuation inhaler Inhale 2 Puffs as instructed every 4 hours as needed. - cholecalciferol (VITAMIN D3) 1,000 unit tab tablet 2 tabs Orally Once a day - TRELEGY ELLIPTA 200-62.5-25 mcg inhalation powder - traZODone (DESYREL) 50 mg tablet - clonazePAM (KLONOPIN) 0.5 mg tablet Take 0.25 mg by mouth two times a day as needed for anxiety. Patient reports that Klonopin 0.5mg daily prn is prescribed but that when at home she usually takes Klonopin 0.25mg bid prn Paula Bernal, [facility] October 17, 2023 7:43 AM - gabapentin (NEURONTIN) 300 mg capsule Take 300 mg by mouth daily at bedtime. Facility-Administered Medications as of 10/17/2023 - oxyCODONE IR 5-10 mg tab(s) (ROXICODONE) - clonazePAM 0.5 mg tab(s) (KlonoPIN) - polyethylene glycol 3350 17 g packet - mometasone 220 mcg/ actuation (14) 2 Puff inhaler (ASMANEX) - umeclidinium 62.5 mcg - vilanterol 25 mcg inhaler (ANORO ELLIPTA) - gabapentin 300 mg cap(s) (NEURONTIN) - traZODone 25 mg tab(s) (DESYREL) - albuterol HFA 90 mcg/actuation 2 Puff (PROVENTIL HFA, VENTOLIN HFA) - ondansetron 4 mg tab(s) (ZOFRAN) - ondansetron (PF) 4 mg injection (ZOFRAN) - bisacodyl EC 10 mg tab(s) (DULCOLAX) - aluminum-magnesium hydroxide-simethicone 200-200-20 mg/5 mL 30 mL - senna 17.2 mg tab(s) (SENOKOT) - aspirin, enteric coated 81 (more content not included)... Normal [facility] CONSULTon 10-17-2023 CONSULT HNO ID: [id number] Author: EWELINA TALBERT MD Service: Pain Management Author Type: Physician Type: Consults Filed: 10/17/2023 14:34 Note Text: Name: PRISCILA CHA Age: [age] year old PAIN MANAGEMENT: s/p Right LENNOX, chronic multifactorial pain Pain Description: Patient complains of terrible pain right hip described as throbbing. Pain level 7-10. Also with chronic back pain. Was able to get the bedside commode. She is waiting PT evaluation but hopes to go home later today. at bedside in PACU Interval HPI: 24H Comfort Meds: PACU Versed 1 mg IV x 1, Benadryl 25 mg IV x 1, morphine 3 mg IV x 2, fentanyl 25 mcg IV x 4, Dilaudid 0.25 mg IV x 4 Tylenol 1 g x 2 discontinued Tylenol 975 mg every 6 hours x 1 Klonopin 0.5 mg twice daily as needed x 2 discontinued Klonopin 0.5 mg daily as needed Gabapentin 300 mg at bedtime x 1 Toradol 15 mg IV every 6 hours x 4 Oxycodone 5-10 mg every 3 hours as needed 10 mg x 4 Senna x 1 Trazodone 25 mg at bedtime x 1 Subjective HPI: 67-year-old female with history of COPD, chronic multifactorial pain (lumbar spondylolisthesis s/p lumbar surgery about 5 years ago) osteoarthritis, anxiety/insomnia, recent diverticulitis admitted 10/16 for right LENNOX due to advanced osteoarthritis. Patient lives at home with her . Patient takes medical marijuana at night to help her sleep and relax. She also takes Klonopin 0.25 mg twice daily. She hopes to go home later today. [facility] Review: 230 prescription sent 10 providers mostly for medical marijuana. Most recent prescriptions: 10/12 tramadol 50 mg #12 10/09 medical marijuana 09/26 Klonopin 0.5 mg #30 1/ [place] 5/325 #21 09/23 gabapentin 300 mg #60 Current Facility-Administered Medications Medication Dose Route Frequency Provider Last Rate Last Admin oxyCODONE IR 5-10 mg tab(s) (ROXICODONE) 5-10 mg ORAL q 3 H PRN Kimmy Alexandre APRN.CNP clonazePAM 0.5 mg tab(s) (KlonoPIN) 0.5 mg ORAL DAILY PRN Kimmy Alexandre APRN.CNP polyethylene glycol 3350 17 g packet 17 g ORAL DAILY Kimmy Alexandre APRN.CNP mometasone 220 mcg/ actuation (14) 2 Puff inhaler (ASMANEX) 2 Puff INHALATION BID Kimmy Alexandre APRN.CNP And umeclidinium 62.5 mcg - vilanterol 25 mcg inhaler (ANORO ELLIPTA) 1 Inhalation INHALATION DAILY Kimmy Alexandre APRN.CNP gabapentin 300 mg cap(s) (NEURONTIN) 300 mg ORAL AT BEDTIME Kavon Doll MD 300 mg at 10/16/232142 traZODone 25 mg tab(s) (DESYREL) 25 mg ORAL AT BEDTIME Kavon Doll MD 25 mg at 10/16/232141 albuterol HFA 90 mcg/actuation 2 Puff (PROVENTIL HFA, VENTOLIN HFA) 2 Puff INHALATION q 4 H PRN Kavon Doll MD ondansetron 4 mg tab(s) (ZOFRAN) 4 mg ORAL q 6 H PRN Kavon Doll MD Or ondansetron (PF) 4 mg injection (ZOFRAN) 4 mg INTRAVENOUS q 6 H PRN Kavon Doll MD [START ON 10/18/2023] bisacodyl EC 10 mg tab(s) (DULCOLAX) 10 mg ORAL DAILY Kavon Doll MD aluminum-magnesium hydroxide-simethicone 200-200-20 mg/5 mL 30 mL 30 mL ORAL q 2 H PRN Kavon Doll MD senna 17.2 mg tab(s) (SENOKOT) 17.2 mg ORAL AT BEDTIME Kavon Doll MD 17.2 mg at 10/16/23 2142 aspirin, enteric coated 81 mg tab(s) 81 mg ORAL BID Kavon Doll MD NaCl 0.9% iv flush bag 20 mL INTRAVENOUS PRN Kavon Doll MD lactated ringers iv infusion 75 mL/hr INTRAVENOUS CONTINUOUS Kavon Doll MD 75 mL/hr at 10/16/23 1658 75 mL/hr at 10/16/23 1658 keTORolac 15 mg injection (Toradol) 15 mg INTRAVENOUS q 6 H Kavon Doll MD 15 mg at 10/17/23 0600 acetaminophen 975 mg tab(s) (TYLENOL) 975 mg ORAL q 6 H Kavon Doll MD 975 mg at 10/16/23 1840 cholecalciferol (VITAMIN D3) 1,000 unit tab tablet, 2 tabs Orally Once a day, Disp: , Rfl: , 10/13/2023 TRELEGY ELLIPTA 200-62.5-25 mcg inhalation powder, , Disp: , Rfl: , 10/16/2023 at 0520 traZODone (DESYREL) 50 mg tablet, , Disp: , Rfl: , 10/15/2023 clonazePAM (KLONOPIN) 0.5 mg tablet, Take 0.5 mg by mouth twice daily as needed., Disp: , Rfl: , 10/15/2023 gabapentin (NEURONTIN) 300 mg capsule, Take 300 mg by mouth daily at bedtime. , Disp: , Rfl: , 10/15/2023 [DISCONTINUED] traMADol (ULTRAM) 50 mg tablet, Take 50 mg by mouth as needed., Disp: , Rfl: , 10/15/2023 albuterol HFA (PROVENTIL HFA, VENTOLIN HFA) 90 mcg/actuation inhaler, Inhale 2 Puffs as instructed every 4 hours as needed., Disp: , Rfl: , Unknown Social History Tobacco Use Smoking status: Former Packs/day: .75 Types: Cigarettes Quit date: 09/27/2023 Years since quittin.0 Smokeless tobacco: Never Tobacco comments: Trying to quit Vaping Use Vaping Use: Never used Substance Use Topics Alcohol use: No Drug use: Yes Types: Marijuana Comment: THC gummies FAMILY HISTORY Problem Relation Age of Onset Coronary Artery Disease Mother Coronary Artery Disease Father Colon Cancer Paternal Grandmother Arthritis Other other (Congestive heart failure) Other Thyroid Other Disorder PAST MEDICAL HISTORY Diagnosis Date Anxiety A (more content not included)... Normal [facility] THERAPY NTon 10-17-2023 THERAPY NT HNO ID: [id number] Author: MARISSA MEHTA OTR/L Service: Occupational Therapy Author Type: Occupational Therapist Type: Therapy (PT/OT/Speech/Resp) Filed: 10/17/2023 11:27 Note Text: Occupational Therapy Evaluation Summary SERVICE DATE: 10/17/2023 SERVICE TIME: 1025 to 1042 ROOM: [place] [id number] ([place] OR [place] OP) OT 6 Clicks Score: 19 DISCHARGE RECOMMENDATIONS Home Recommended Discharge Disposition Comments: patient mostly limited by pain Anticipated Discharge Needs: Physical Assist at Home Physical Assist at Home for: Cleaning, Laundry, Meals, Self Care, Shopping, Transportation ASSESSMENT Response to Therapy Interventions: Good Participation in Activities very anxious throughout PRECAUTIONS Posterior Hip Precautions, Weight Bearing Restrictions Right Lower Extremity Weight Bearing Status: WBAT CURRENT HOSPITAL COURSE s/p R LENNOX on 10/16/23 Relevant Past Medical History: anxiety, COPD, chronic pain, depression, back surgery HOME LIVING Patient Lives With: Spouse Assistance Available: 24-Hour Entry To Home: Stairs, With Rail Number Of Stairs Into Home: 2 Number Of Stairs To Bed/Bath: 10 Stairs to Bed/Bath with: Unilateral Rail Tub/Shower Type: walk inv with hand rail and chair Equipment Owned: Walker- Wheeled, Grab Bars- Toilet, Cane PRIOR FUNCTIONAL LEVEL Within Functional Limits Patient reports that she is typically completey independent prior to admission Baseline Cognition: Oriented to self, Oriented to place, Oriented to time, Oriented to situation SUBJECTIVE agreeable to session COGNITION Responsiveness: Alert Follows Commands: 3-step Commands Executive Function Deficits: Safety Awareness THERAPY DIAGNOSIS Reduced mobility-other, Decreased activities of daily living (ADL), Muscle Weakness (generalized), Unsteadiness on feet, General symptoms and signs-other TREATMENT INTERVENTIONS Evaluation, Self Custodial Management (31216) Timed Code Treatment (minutes): 5 Skilled Treatment Time (minutes): 17 $ Evaluation - Moderate (54503) Billed Units: 1 unit Self Custodial Management (79408) Treatment Minutes: 5 $ Self Custodial Management (72933) Billed Units: 0 units Educated on the role of OT in the acute care setting. Educated on 3/3 posterior hip precautions. Educated on wheeled walker management/sequence and fall prevention during functional mobility. Facilitated simulated toilet transfer, provided step by step instruction on hand and body placement and safety. Instructed in post-op instructions during ADLs after LENNOX with the use of AE to don/doff pant, socks, underwear. Facilitated family training in the department, educated on tub/shower transfer and car transfer within posterior hip precautions, provided step by step direction on effective technique/sequence/safe ty. TRAINING AND EDUCATION PROVIDED Benefits of In-Hospital Mobility, Functional Mobility Involving ADLs, Lower Extremity Bathing, Lower Extremity Dressing, Precautions/Restriction s, Role of Occupational Therapy, Standing Balance to Improve [place] with ADLs/Self-Care, Transfer - Car, Transfer - Sit to Stand, Transfer - Toilet/Commode, Upper Extremity Dressing, Treatment Protocol THERAPEUTIC SKILLS USED Activity Dosing, Cues for Sequencing/Proper Technique for Activity FUNCTIONAL STATUS Activities of Daily Living Assist Level Additional Information Feeding Set Up Grooming Stand By Assistance Bathing Upper Body Stand By Assistance Bathing Lower Body Moderate Assistance Dressing Upper Body Stand By Assistance Dressing Lower Body Moderate Assistance Toileting Stand By Assistance Mobility Assist Level Additional Information Bed Mobility Sit to Stand Contact Guard Assistance Stand to Sit Contact Guard Assistance Bed to Chair Toilet/Commode Contact Guard Assistance Shower Functional Mobility Contact Guard Assistance, Additional Information Functional Mobility Device: Wheeled Walker functional mobility in department BALANCE Static Standing Balance: Fair Dynamic Standing Balance: Fair GOALS Grooming with: Independent Upper Body Bathing with: Independent Upper Body Dressing with: Independent Lower Body Bathing with: Modified Independent Lower Body Dressing with: Modified Independent Toilet Hygiene with: Independent Chair Transfer with: Supervision Toilet Transfer with: Supervision Shower Transfer with: Supervision Car Transfer with: Supervision Demonstrate Competence with Education with: Supervision (posterior hip precautions with ADLs) Rehab Potential: Good PLAN OT Frequency: 1 Time Per Week Treatment Interventions: Education, Self Care/Home Management, Energy Conservation Training, Strengthening, Functional Mobility Training, Balance Training Plan for Next Visit: Bathing Training, Dressing Training SIGNATURE: GOOD Kyle/Ryan PATIENT NAME: Priscila Cha DATE: October 17, 2023 TIME: 11:26 AM [facility] THERAPY NT HNO ID: [id number] Author: FLORES EMERY PTA Service: Physical Therapy Author Type: [employer] Machine Assembler Type: Therapy (PT/OT/Speech/Resp) Filed: 10/17/2023 10:45 Note Text: Attestation signed by Jennifer Johnson PT at 10/17/2023 2:32 PM I reviewed and agree with the documentation corresponding to this therapy visit. SIGNATURE: Jennifer Johnson PT DATE: October 17, 2023 TIME: 2:32 PM Physical Therapy Treatment Summary SERVICE DATE: 10/17/2023 SERVICE TIME: 0954 to 1020 ROOM: [place] [address] ([place] OR [place] OP) PT 6 Clicks Score: 18 DISCHARGE RECOMMENDATIONS Home PT Recommended Discharge Disposition Comments: Patient s/p R LENNOX, recommend home with home PT services to progress toward PLOF. ASSESSMENT Patient completed family training in dept , patient able to navigate steps for home going. Patient had increased pain with mobility but patient is steady with mobility and without LOSS OF BALANCE Patient progressing towards goals for Home with PT , patient and patient's family have a good understanding of proper mobility and HEP for s/p LENNOX. Patient demo's safe and proper mobility for safe discharge home. Additional personnel present during visit: Roseann Schuster Response to Therapy Interventions: Good Participation in Activities, Improved Tolerance for Activity, On-Track to Achieve Discharge Goals PRECAUTIONS Posterior Hip Precautions, Weight Bearing Restrictions Right Lower Extremity Weight Bearing Status: WBAT CURRENT HOSPITAL COURSE s/p R LENNOX on 10/16/23 Relevant Past Medical History: anxiety, COPD, chronic pain, depression, back surgery HOME LIVING Patient Lives With: Spouse Assistance Available: 24-Hour Entry To Home: Stairs, With Rail Number Of Stairs Into Home: 2 Number Of Stairs To Bed/Bath: 10 Stairs to Bed/Bath with: Unilateral Rail Tub/Shower Type: walk inv with hand rail and chair Equipment Owned: Walker- Wheeled, Grab Bars- Toilet, Cane PRIOR FUNCTIONAL LEVEL Within Functional Limits Patient reports that she is typically completey independent prior to admission SUBJECTIVE Agreeable to PT session THERAPY DIAGNOSIS Reduced mobility-other TREATMENT INTERVENTIONS Therapeutic Exercise (44621) Treatment Minutes: 6 $ Therapeutic Exercise (71619) Billed Units: 0 units Patient and patient's educated in right total hip arthroplasty protocol (ankle pump, quad set, gluteal set, heel slide, hip abd/add to neutral, short arc quad, long arc quad, hip adductor squeeze) Educated patient on right posterior hip precautions. Patient recalls 2/3 hip precautions Patient reports 7-10/10 pain. Patient educated in set up with ice to surgical hip and elevated lower extremity as needed. Therapeutic Activity (90074) Treatment Minutes: 10 $ Therapeutic Activity (97541) Billed Units: 1 unit Gait Training (71432) Treatment Minutes: 10 $ Gait Training (99851) Billed Units: 1 unit Therapeutic Exercise (79143), Therapeutic Activity (26958), Gait Training (27336) Timed Code Treatment (minutes): 26 Skilled Treatment Time (minutes): 26 TRAINING AND EDUCATION PROVIDED Assistive Device Use, Bed Mobility, Benefits of In-Hospital Mobility, Discharge Planning, Disease Specific Education, Expected Functional Level, Gait Pattern, Reduction of Deviations, Precautions/Restriction s, Pre-gait Activities, Role of Physical Therapy, Sitting Balance, Standing Balance, Transfers THERAPEUTIC SKILLS USED Cues for Sequencing/Proper Technique for Activity, Cuing Tactile, Cuing Verbal, Cuing Visual, Movement Facilitation, Muscle Activation Facilitation, Physical Assist, Postural Alignment Correction FUNCTIONAL STATUS mobility performed during session in bold, other mobility completed during prior session and may no longer be correct or appropriate to complete. Bed Mobility Supine To Sit: Minimal Assistance, Additional Information, Contact Guard Assistance cues/assist to raise trunk and bring LE 's to EOB , bed flat , maintianing hip precautions , via long sit Sit to Supine: Minimal Assistance, Additional Information, Contact Guard Assistance cues/assist to lower trunk and bring LE's up onto bed , via long sit maintaining hip precautions. Transfers Sit To Stand: Contact Guard Assistance, Additional Information cues/assist to slide R LE out , push up though LE's , hand placement and safety Stand To Sit: Contact Guard Assistance, Additional Information cues/assist to align up to chair/bed , slowly lower , hand placement and safety Bed to Chair Minimal Assistance, Additional Information Bed To Chair Transfer Type: Stepping Bed To Chair Transfer Equipment: Wheeled Walker, Gait Belt Gait Contact Guard Assistance, Additional Information cues/assist for upright posture , gait sequence , walker place (more content not included)... Normal [facility] ANES PRE-OPon 10-16-2023 ANES PRE-OP HNO ID: [id number] Author: BARBARA FRANKLIN MD Service: Anesthesiology Author Type: Physician Type: Anesthesia Preprocedure Evaluation Filed: 10/16/2023 08:41 Note Text: ANESTHESIOLOGY DAY OF SURGERY NOTE : 1955 Procedure Information Anesthesia Start Date/Time: 10/16/23 0759 Procedure: ARTHROPLASTY HIP (Right: Hip) [place]: [place] Surgeons: Rubén Jimenes MD Estimated body mass index is 23.74 kg/m? as calculated from the following: Height as of 09/27/23: 160 cm (5' 3 ). Weight as of 09/27/23: 60.8 kg (134 lb). Most recent hematocrit and potassium results: Hematocrit 39.4 09/27/2023 Potassium 4.9 09/27/2023 Relevant Problems ANESTHESIA (+) ANJANA (obstructive sleep apnea) PULMONARY (+) COPD (chronic obstructive pulmonary disease) (HCC) (+) ANJANA (obstructive sleep apnea) I - PHYSICAL EVALUATION AIRWAY Patient intubated: No. Tracheostomy tube not present Mallampati: III. TM distance: <3 FB. Neck ROM: full ROM without neurological symptoms. Mouth opening: adequate. Short neck: no. Thick neck: no DENTAL Dental findings: chipped and broken tooth. Additional exam findings: no II - ANESTHESIA PLAN ASA Score: 3 Anesthetic Plan: general Airway type: ETT NPO Status: adequate Beta Joe Monitoring Plan Monitoring plan: standard ASA. Post Procedure Analgesic Plan Postoperative analgesic plan: parenteral or oral opioids and multimodal analgesia. Informed Consent Anesthetic risks, benefits, alternatives, personnel and consent discussed: yes. Patient / Responsible Alliance Party agrees to proceed: yes Patient / Surrogate agrees to blood products: Yes Significant changes in the patient condition since the History and Physical, not otherwise documented in primary service progress note: no. Potential Anesthesia issues that may suggest increased risk of complications or contraindication to planned procedure: potential difficult intubation. Vitals Value Taken Time BP 117/53 10/16/23 0708 Pulse 58 10/16/23 0705 Resp Temp 36.7 ?C (98.1 ?F) 10/16/23 0705 SpO2 94 % 10/16/23 0709 Vitals shown include unfiled device data. Facility-Administered Medications as of 10/16/2023 Medication Dose Route Frequency - lactated ringers iv infusion 5-30 mL/hr INTRAVENOUS CONTINUOUS - ropivacaine 2.46 mg/mL-EPINEPHrine 0.005 mg/mL-cloNIDine 0.0008 mg/mL-ketorolac 0.3 mg/mL injection (R.E.C.K.) X (OR/PROCEDURE) PRN - NaCl 0.9% irrigation bag X (OR/PROCEDURE) PRN - NaCl 0.9% irrigation solution X (OR/PROCEDURE) PRN Outpatient Medications as of 10/16/2023 Medication Sig - traMADol (ULTRAM) 50 mg tablet Take 50 mg by mouth as needed. - TRELEGY ELLIPTA 200-62.5-25 mcg inhalation powder - traZODone (DESYREL) 50 mg tablet - clonazePAM (KLONOPIN) 0.5 mg tablet Take 0.5 mg by mouth twice daily as needed. - gabapentin (NEURONTIN) 300 mg capsule Take 300 mg by mouth daily at bedtime. - [] HYDROcodone-acetaminoph en (NORCO) 5-325 mg per tablet Take 1 tablet by mouth every 8 hours as needed for pain for up to 7 days. - albuterol HFA (PROVENTIL HFA, VENTOLIN HFA) 90 mcg/actuation inhaler Inhale 2 Puffs as instructed every 4 hours as needed. - cholecalciferol (VITAMIN D3) 1,000 unit tab tablet 2 tabs Orally Once a day - ibuprofen (MOTRIN) 600 mg tablet Take 600 mg by mouth every 6 hours as needed. I have interviewed and examined the patient. I have reviewed the medical record and/or the pre-anesthesia evaluation, pertinent labs, and test results. This contains updated information obtained within 48 hours of Surgery/Procedure. SIGNATURE: Barbara Franklin MD PATIENT NAME: Priscila Cha DATE: October 16, 2023 TIME: 8:41 AM CSN: [id number] [facility] BRIEF OP NOTon 10-16-2023 BRIEF OP NOT HNO ID: [id number] Author: KAVON DOLL MD Service: Orthopaedic Surgery Author Type: Resident Type: Brief Op Note Filed: 10/16/2023 09:50 Note Text: BRIEF OPERATIVE / PROCEDURE NOTE LOG ID: [id number] SURGERY/PROCEDURE DATE: 10/16/2023 INCISION/PROCEDURE START TIME: 8:30 AM INCISION CLOSE/PROCEDURE END TIME: SURGEON(S)/PROCEDURALIS T(S) AND SPIN TABLE OPERATOR(S): Surgeon(s) and Role: * Rubén Jimenes MD - Primary * Kavon Doll MD - Resident - Assisting No Additional Staff SURGERY/PROCEDURE(S): R LENNOX ANESTHESIA: General FINDINGS: See OP note ESTIMATED BLOOD LOSS: 150 mls ANTIBIOTICS: Ancef SPECIMENS: None COMPLICATIONS: None PRE-OP/PRE-PROCEDURE DIAGNOSIS: Right hip OA POST-OP/POST-PROCEDURE DIAGNOSIS: * No post-op diagnosis entered * Same Post-Operative Plan: -management per Ortho -dressing/splints status: Mepilex x 7-10 days -WBAT RLE, posterior hip precautions; Abduction brace until up with PT -pain control -diet: regular diet -DVT ppx: ASA 81 mg BID x 21 days -post-operative antibiotics: Ancef x 2 doses -follow-up post-operative imaging -PT/OT -disposition: Home POD #1-2 Leandro Doll MD Orthopaedic Surgery 10/16/2023 9:49 AM [facility] NURSING PROGon 10-16-2023 NURSING PROG HNO ID: [id number] Author: JAIRO BLAIR RN Service: ? Author Type: Registered Nurse Type: Nursing Progress Note Filed: 10/16/2023 17:39 Note Text: Pt awaiting bed availability, sleeping intermittently, awaiting dinner tray from cafeteria, states is comfortable at this time. [facility] NURSING PROG HNO ID: [id number] Author: PERNELL COVINGTON RN Service: Nursing Author Type: Registered Nurse Type: Nursing Progress Note Filed: 10/16/2023 12:25 Note Text: Dr. Franklin called to the bedside regarding pain control, pt rates pain 10/10 after all pain meds given, states only thing that has helped is klonipin, ordered versed and benadryl and will change pain med to morphine [facility] OPERATIVE NOon 10-16-2023 OPERATIVE NO HNO ID: [id number] Author: RUBÉN JIMENES MD Service: Orthopaedic Surgery Author Type: Physician Type: Operative Report Filed: 10/17/2023 14:09 Note Text: [facility] [place] - Operative Report PRISCILA CHA : 1955 AGE: 67. SEX: F PATIENT TYPE: A [facility] SVC: [facility] LOCATION: [facility] ATTENDING PHYSICIAN: RUBÉN JIMENES CSN NUMBER: [id number] DATE OF SURGERY/PROCEDURE: 10/16/2023 INCISION/PROCEDURE START TIME: 8:30 AM INCISION CLOSE/PROCEDURE END TIME: 9:52 AM PREOPERATIVE DIAGNOSIS: Severe degenerative joint disease, right hip. POSTOPERATIVE DIAGNOSIS: Severe degenerative joint disease, right hip. SURGEON: Rubén Jimenes MD SPIN TABLE OPERATOR: Leandro Doll MD. SURGERY/PROCEDURE: Right total hip arthroplasty. ANESTHESIA: General endotracheal plus local. ESTIMATED BLOOD LOSS: 200 mL. FLUIDS: Per Anesthesia Service. IMPLANTS: [place] Trident II titanium acetabular shell, size 48 mm; Cynthia Accolade II 127-degree femoral stem, size #4; [place] X3 0 degree polyethylene liner, size 32 D; Cynthia Biolox V40 femoral head, size 32+ 0 mm. OPERATIVE INDICATIONS: Patient is a 67-year-old female, who presented with severe right hip pain secondary to degenerative joint disease. After having failed nonoperative management, she was indicated for the above-stated procedure. She was apprised of risks, benefits, and alternatives of surgery and all questions were answered satisfactorily. She decided to proceed with the operation. DESCRIPTION OF PROCEDURE: The patient was met in the preop holding area. The history and physical as well as valid signed consent form was updated. The site was marked. A preoperative huddle was performed and all checkpoints met satisfactorily. Patient was then brought back to the operating room on a hospital bed. She was transferred supine on the operating table. The Anesthesia Service took control of the head, neck, and airway. General endotracheal anesthesia was induced, and all dependent areas were padded appropriately. The right lower extremity was then prepped and draped in normal sterile fashion. Time-out was performed per [facility] protocol and all checkpoints were met satisfactorily. The patient was given Ancef through the IV for antibiotic prophylaxis. Upper body Tana Hugger started for warming. SCD was placed in left lower extremity for DVT prophylaxis. At the conclusion of the time-out, the right lower extremity was examined. Gently curved incision was planned over the lateral aspect of the greater trochanter, made sharply with a 10-blade knife. Dissection was then carried down the level of fascia, which was split longitudinally in line with the incision. Charnley retractor was placed. The hip was internally rotated. A posterior capsulotomy was performed. The hip was dislocated without difficulty. An osteotomy was planned approximately 10 mm in proximal lesser trochanter made with oscillating saw. The femoral head was removed and retractors were placed around the acetabulum. This debrided soft tissue attachments including labrum and cotyloid fossa. We then began sequential reaming of the acetabulum to 47 mm. We then selected a 48 mm Trident II titanium acetabular shell and impacted intoposition. There was noted to be excellent press-fit. A trial liner was placed, and the hip was further internally rotated. The proximal femur was prepared first with a box osteotome, followed by a canal-finding reamer. We then began sequential broaching up to size #4 which provided adequate fill. We then placed a 127-degree femoral neck trial with a 32 mm +0 femoral head and the hip was reduced. This noted to restore her leg length nicely, and she was stable without impingement anteriorly or posteriorly throughout range of motion. We then dislocated the hip and trial components were removed. We thoroughly irrigated the wound with combination of sterile normal saline and IrriSept solution. The final components were impacted into position. The hip was again reduced. This noted to restore her leg length nicely and she was stable without impingement anteriorly or posteriorly throughout range of motion. We again thoroughly irrigated the wound with combination of sterile normal saline and IrriSept solution. We infiltrated the local soft tissues with 50 mL of the NEDA local anesthetic solution. The capsule was reapproximated to greater trochanter #5 Ethibond suture. The fascia was reapproximated with #2 Ethibond followed by #2 Quill. Deep subdermal layers were reapproximated with #0 Quill followed by 3-0 Monocryl to close the skin. Sterile dressings were applied. Patient was awoken by Anesthesia and transferred back to hospital bed. She was delivered to recovery room in stable and extubated condition, having tolerated surgery well. POSTOPERATIVE PLAN: 1. Pain control. 2. PT/OT; weightbearing as tolerated, right lower extremity, posterior (more content not included)... Normal [facility] THERAPY NTon 10-16-2023 THERAPY NT HNO ID: [id number] Author: JENNIFER JOHNSON, PT Service: Physical Therapy Author Type: Physical Therapist Type: Therapy (PT/OT/Speech/Resp) Filed: 10/16/2023 15:55 Note Text: Physical Therapy Evaluation Summary SERVICE DATE: 10/16/2023 SERVICE TIME: 1429 to 1452 ROOM: [facility] () PT 6 Clicks Score: 16 DISCHARGE RECOMMENDATIONS Home PT Recommended Discharge Disposition Comments: Patient s/p R LENNOX, recommend home with home PT services to progress toward PLOF. ASSESSMENT Response to Therapy Interventions: Good Participation in Activities PRECAUTIONS Posterior Hip Precautions, Weight Bearing Restrictions Right Lower Extremity Weight Bearing Status: WBAT CURRENT HOSPITAL COURSE s/p R LENNOX on 10/16/23 Relevant Past Medical History: anxiety, COPD, chronic pain, depression, back surgery HOME LIVING Patient Lives With: Spouse Assistance Available: 24-Hour Entry To Home: Stairs, With Rail Number Of Stairs Into Home: 2 Number Of Stairs To Bed/Bath: 10 Stairs to Bed/Bath with: Unilateral Rail Tub/Shower Type: walk inv with hand rail and chair Equipment Owned: Walker- Wheeled, Grab Bars- Toilet, Cane PRIOR FUNCTIONAL LEVEL Within Functional Limits Patient reports that she is typically completey independent prior to admission SUBJECTIVE Agreeable to PT session THERAPY DIAGNOSIS Reduced mobility-other TREATMENT INTERVENTIONS Evaluation, Therapeutic Activity (99587) $ Evaluation-Moderate (05761) Billed Units: 1 unit Therapeutic Activity (54838) Treatment Minutes: 8 $ Therapeutic Activity (05001) Billed Units: 1 unit Education provided to patient about posterior hip precautions. Cues for transfers and mobility noted in grid. Timed Code Treatment (minutes): 8 Skilled Treatment Time (minutes): 23 TRAINING AND EDUCATION PROVIDED Assistive Device Use, Bed Mobility, Benefits of In-Hospital Mobility, Discharge Planning, Disease Specific Education, Expected Functional Level, Gait Pattern, Reduction of Deviations, Precautions/Restriction s, Pre-gait Activities, Role of Physical Therapy, Sitting Balance, Standing Balance, Transfers THERAPEUTIC SKILLS USED Cues for Sequencing/Proper Technique for Activity, Cuing Tactile, Cuing Verbal, Cuing Visual, Movement Facilitation, Muscle Activation Facilitation, Physical Assist, Postural Alignment Correction FUNCTIONAL STATUS Bed Mobility Supine To Sit: Minimal Assistance, Additional Information Cues to bring self forward and to get up onto elbows and then hands. Instructed patient to move legs of EOB and to scoot forward and get feet touching the ground. Transfers Sit To Stand: Minimal Assistance, Additional Information Cues to push up from the bed to come to standing position. Instructed patient to keep R leg forward to prevent too much bend at hip during standing. Stand To Sit: Minimal Assistance, Additional Information Cues to make sure legs are touching the bed/bedside commode and to reach back and sit slowly. Instructed patient to slide R leg forward to prevent too much bend with sitting Bed to Chair Minimal Assistance, Additional Information Bed To Chair Transfer Type: Stepping Bed To Chair Transfer Equipment: Wheeled Walker, Gait Belt Cues to move walker toward the commode and to take steps. Assisted and instructed patient with sequencing with use of walker. Gait Stairs ROM ROM Limitation Comments: limited by R hip pain STRENGTH Strength Limitation Comments: at least 3/5 BLEs BALANCE Static Sitting Balance: Good Dynamic Sitting Balance: Good Static Standing Balance: Fair Dynamic Standing Balance: Fair GOALS Able to Perform HEP with: Independent Rolling with: Independent Transfer Supine to/from Sit with: Independent Transfer Sit to/from Stand with: Independent Ambulate with: Modified Independent Distance: 50ft Device: Wheeled Walker Transfer: complete bed to chair transfer with Tania Rehab Potential: Good PLAN PT Frequency: Twice Daily Treatment Interventions: Education, Strengthening, Functional Mobility Training, Balance Training, Neuromuscular Re-education Plan for Next Visit: Bed Mobility, Chair Transfer Training, Pre-gait Activities, Sit to Stand Transfers, Gait Training, Exercise Instruction/Handout, Sitting Balance, Standing Balance, Standing Tolerance, Walker Training SIGNATURE: Jennifer Johnson PT PATIENT NAME: Priscila Cha DATE: October 16, 2023 TIME: 3:44 PM Normal [facility] XR PELVIS 1V APon 10-16-2023 XR PELVIS 1V AP * * *Final Report* * * DATE OF EXAM: Oct 16 2023 10:46AM AKX [id number] - XR PELVIS 1V AP / PROCEDURE REASON: Post-operative / post-procedure assessment * * * * Physician Interpretation * * * * EXAMINATION: XR PELVIS 1V AP HISTORY: POST OP Post-operative / post-procedure assessment. TECHNIQUE: XR PELVIS 1V AP Laterality: NOT APPLICABLE Number of different views (projections): 1 M: XB_1 COMPARISON: Right hip x-ray examination dated 09/25/2023. RESULT: Postsurgical changes from recent right total hip arthroplasty. Hardware appears to be intact. Near-anatomic alignment. The left hip and sacroiliac joint spaces appear to be maintained. No widening of the pubic sepsis. Partially visualized is posterior lumbar spinal fusion hardware. No discrete focal suspicious osseous lesions. No other significant abnormality. IMPRESSION: Postsurgical changes from recent total right hip arthroplasty with intact hardware and near-anatomic alignment. Marketing Project Lead: PSCB Transcribe Date/Time: Oct 16 2023 10:55A Dictated by : JIE LEONG MD This examination was interpreted and the report reviewed and electronically signed by: JIE LEONG MD on Oct 16 2023 10:56AM EST [id number] [facility] Ella 10-13-2023 KAYLA Telephone (AGOTAL) PRISCILA CHA ([id number]) 1955 F Date Time Provider Department 10/13/23 RUBÉN JIMENES During your visit today, we recorded the following information about you: Marcy Castaneda 10/13/2023 2:54 PM Signed Call to patient to confirm Date,Time and Location for surgery scheduled. Date: 10/16/23 Arrival time: 6am for 8:00am surgery, [facility] DME: Chavo [employer] Roofer: Confirmed NPO: Confirmed Allergies As of Date: 10/13/2023 Noted Allergy Reaction LEVAQUIN (LEVOFLOXACIN) 06/28/2017 8 - GI Upset SULFA (SULFONAMIDE ANTIBIOTICS) 06/28/2017 11 - Vomiting Date Reviewed: 09/27/2023 Reviewed by: Cruz Sharma PA - Fully Assessed Prescriptions as of 10/13/2023 - mupirocin (BACTROBAN) 2 % ointment Apply twice daily to each nostril for five days pre-operatively. Start on 10/11/23. - albuterol HFA (PROVENTIL HFA, VENTOLIN HFA) 90 mcg/actuation inhaler Inhale 2 Puffs as instructed every 4 hours as needed. - cholecalciferol (VITAMIN D3) 1,000 unit tab tablet 2 tabs Orally Once a day - TRELEGY ELLIPTA 200-62.5-25 mcg inhalation powder - traZODone (DESYREL) 50 mg tablet - clonazePAM (KLONOPIN) 0.5 mg tablet Take 0.5 mg by mouth twice daily as needed. - ibuprofen (MOTRIN) 600 mg tablet Take 600 mg by mouth every 6 hours as needed. - gabapentin (NEURONTIN) 300 mg capsule Take 300 mg by mouth daily at bedtime. Problem List As Of Date 10/13/2023 Noted Resolved Spondylolisthesis at L5-S1 level [M43.17] Chronic pain [G89.29] Multilevel degenerative disc disease [M53.9] Spondylolisthesis of lumbar region [M43.16] 07/06/2017 Spondylolisthesis at L4-L5 level [M43.16] 07/06/2017 COPD (chronic obstructive pulmonary disease) (H* Preop examination [Z01.818] ANJANA (obstructive sleep apnea) [G47.33] 09/27/2023 Encounter Status:Closed by MARCY CASTANEDA on 10/13/23 [facility] CNTHERAPYon 10-09-2023 CNTHERAPY OT/PT/Speech Visit (AKPTB) GLENYS CHAA Ryan ([id number]) 1955 F Date Time Provider Department 10/09/23 11:30 AM QUINTEN DÍAZ Date Time Provider Department Center 10/09/2023 11:30 AM [id number] DÍAZ [facility] Reason for Visit: PT Eval [747] PT Discharge [752] Primary Visit Diagnosis:Pain in right hip [M25.551] Allergies As of Date: 10/09/2023 Noted Allergy Reaction LEVAQUIN (LEVOFLOXACIN) 06/28/2017 8 - GI Upset SULFA (SULFONAMIDE ANTIBIOTICS) 06/28/2017 11 - Vomiting Date Reviewed: 09/27/2023 Reviewed by: Cruz Sharma PA - Fully Assessed Prescriptions as of 01/09/2024 - dicyclomine (BENTYL) 20 mg tablet Take 20 mg by mouth three times a day as needed (GI upset). - MAGNESIUM GLYCINATE ORAL Take 400 mg by mouth once daily. - HERBAL THERAPY CBD Gummie- Take one by mouth daily at bedtime as needed for insomnia - aspirin, enteric coated (ADULT LOW DOSE ASPIRIN) 81 mg EC tablet Take 1 tablet by mouth two times a day for 21 days. - albuterol HFA (PROVENTIL HFA, VENTOLIN HFA) 90 mcg/actuation inhaler Inhale 2 Puffs as instructed every 4 hours as needed for wheezing/shortness of breath. - cholecalciferol (VITAMIN D3) 1,000 unit tab tablet 2 tabs Orally Once a day - TRELEGY ELLIPTA 200-62.5-25 mcg inhalation powder Inhale 1 Puff as instructed once daily. takes in morning - traZODone (DESYREL) 50 mg tablet Take 50 mg by mouth daily at bedtime. - clonazePAM (KLONOPIN) 0.5 mg tablet Take 0.25 mg by mouth two times a day as needed for anxiety. Patient reports that Klonopin 0.5mg daily prn is prescribed but that when at home she usually takes Klonopin 0.25mg bid prn Paula Bernal [facility] October 17, 2023 7:43 AM - gabapentin (NEURONTIN) 300 mg capsule Take 300 mg by mouth daily at bedtime. Senior Technical Support Engineer: Therapy (PT/OT/Speech/Resp) ID: [id number] 10/09/2023 12:03 PM Author: QUINTEN DÍAZ Signed by QUINTEN DÍAZ PT on 10/09/2023 at 12:03 PM Document text: Program_ID:[id number] Access Code: [email or web address] URL: [email or web address] .[email or web address]/ Date: 10-09-2023 Prepared By: Quinten Díaz Program Notes Exercises - Supine Ankle Pumps - 1 x daily - 7 x weekly - 3 sets - 10 reps - Supine Quadricep Sets - 1 x daily - 7 x weekly - 3 sets - 10 reps - Supine Gluteal Sets - 1 x daily - 7 x weekly - 3 sets - 10 reps - Supine Short Arc Quad - 1 x daily - 7 x weekly - 3 sets - 10 reps - Supine Heel Slide - 1 x daily - 7 x weekly - 3 sets - 10 reps Patient Education - cc Total Hip LENNOX Preparing for Surgery - cc Total Hip LENNOX Bed Mobility - cc Total Hip LENNOX Car Transfer - cc Total Hip LENNOX Precautions Posterior Approach Normal [facility] THERAPY NTon 10-09-2023 THERAPY NT HNO ID: [id number] Author: QUINTEN DÍAZ PT Service: ? Author Type: Physical Therapist Type: Therapy (PT/OT/Speech/Resp) Filed: 10/09/2023 12:03 Note Text: Program_ID:[id number] Access Code: [email or web address] URL: [email or web address] Date: 10-09-2023 Prepared By: Quinten Díza Program Notes Exercises - Supine Ankle Pumps - 1 x daily - 7 x weekly - 3 sets - 10 reps - Supine Quadricep Sets - 1 x daily - 7 x weekly - 3 sets - 10 reps - Supine Gluteal Sets - 1 x daily - 7 x weekly - 3 sets - 10 reps - Supine Short Arc Quad - 1 x daily - 7 x weekly - 3 sets - 10 reps - Supine Heel Slide - 1 x daily - 7 x weekly - 3 sets - 10 reps Patient Education - cc Total Hip LENNOX Preparing for Surgery - cc Total Hip LENNOX Bed Mobility - cc Total Hip LENNOX Car Transfer - cc Total Hip LENNOX Precautions Posterior Approach Normal [facility] CNPNon 09-29-2023 CNPN Telephone (AK52B) PRISCILA CHA ([id number]) 1955 F Date Time Provider Department 09/29/23 CARINE MCKNIGHT AK52B During your visit today, we recorded the following information about you: Allergies As of Date: 09/29/2023 Noted Allergy Reaction LEVAQUIN (LEVOFLOXACIN) 06/28/2017 8 - GI Upset SULFA (SULFONAMIDE ANTIBIOTICS) 06/28/2017 11 - Vomiting Date Reviewed: 09/27/2023 Reviewed by: Cruz Sharma PA - Fully Assessed Reason for Visit: PreOp Call [[id number]] Prescriptions as of 09/29/2023 - mupirocin (BACTROBAN) 2 % ointment Apply twice daily to each nostril for five days pre-operatively. Start on 10/11/23. - HYDROcodone-acetaminoph en (NORCO) 5-325 mg per tablet Take 1 tablet by mouth every 8 hours as needed for pain for up to 7 days. - albuterol HFA (PROVENTIL HFA, VENTOLIN HFA) 90 mcg/actuation inhaler Inhale 2 Puffs as instructed every 4 hours as needed. - cholecalciferol (VITAMIN D3) 1,000 unit tab tablet 2 tabs Orally Once a day - TRELEGY ELLIPTA 200-62.5-25 mcg inhalation powder - traZODone (DESYREL) 50 mg tablet - clonazePAM (KLONOPIN) 0.5 mg tablet Take 0.5 mg by mouth twice daily as needed. - ibuprofen (MOTRIN) 600 mg tablet Take 600 mg by mouth every 6 hours as needed. - gabapentin (NEURONTIN) 300 mg capsule Take 300 mg by mouth daily at bedtime. Problem List As Of Date 09/29/2023 Noted Resolved Spondylolisthesis at L5-S1 level [M43.17] Chronic pain [G89.29] Multilevel degenerative disc disease [M53.9] Spondylolisthesis of lumbar region [M43.16] 07/06/2017 Spondylolisthesis at L4-L5 level [M43.16] 07/06/2017 COPD (chronic obstructive pulmonary disease) (H* Preop examination [Z01.818] ANJANA (obstructive sleep apnea) [G47.33] 09/27/2023 Encounter Status:Closed by CARINE MCKNIGHT on 09/29/23 [facility] CNPN Telephone (AK52B) PRISCILA CHA ([id number]) 1955 F Date Time Provider Department 09/29/23 CARINE MCKNIGHT AK52B During your visit today, we recorded the following information about you: Carine Mcknight RN 09/29/2023 10:18 AM Signed ORTHOPAEDIC COORDINATION OF CARE Discharge Disposition (Planned): Home with Home Health Discharge Transportation: Car Number of Entry Steps: 2 Bedroom Location: Second floor Bathroom Location: 1st and 2nd Caregiver Assistance: Consistent/Live-In (5-7 days/wk) Home Location: n/a Stair Mobility: Greater than 3 stairs Bundle Inclusion: Yes SIGNATURE: Carine Mcknight RN DATE: September 29, 2023 TIME: 10:17 AM Patient is planning discharge home with c, to be there to assist. She lives in a 2 story home, bedroom on 2nd level, bath on both, 2 steps to enter. She has a ww/cane at home, joint camp sent via email. I will follow post op. Allergies As of Date: 09/29/2023 Noted Allergy Reaction LEVAQUIN (LEVOFLOXACIN) 06/28/2017 8 - GI Upset SULFA (SULFONAMIDE ANTIBIOTICS) 06/28/2017 11 - Vomiting Date Reviewed: 09/27/2023 Reviewed by: Cruz Sharma PA - Fully Assessed Reason for Visit: PreOp Call [[id number]] Prescriptions as of 09/29/2023 - mupirocin (BACTROBAN) 2 % ointment Apply twice daily to each nostril for five days pre-operatively. Start on 10/11/23. - HYDROcodone-acetaminoph en (NORCO) 5-325 mg per tablet Take 1 tablet by mouth every 8 hours as needed for pain for up to 7 days. - albuterol HFA (PROVENTIL HFA, VENTOLIN HFA) 90 mcg/actuation inhaler Inhale 2 Puffs as instructed every 4 hours as needed. - cholecalciferol (VITAMIN D3) 1,000 unit tab tablet 2 tabs Orally Once a day - TRELEGY ELLIPTA 200-62.5-25 mcg inhalation powder - traZODone (DESYREL) 50 mg tablet - clonazePAM (KLONOPIN) 0.5 mg tablet Take 0.5 mg by mouth twice daily as needed. - ibuprofen (MOTRIN) 600 mg tablet Take 600 mg by mouth every 6 hours as needed. - gabapentin (NEURONTIN) 300 mg capsule Take 300 mg by mouth daily at bedtime. Problem List As Of Date 09/29/2023 Noted Resolved Spondylolisthesis at L5-S1 level [M43.17] Chronic pain [G89.29] Multilevel degenerative disc disease [M53.9] Spondylolisthesis of lumbar region [M43.16] 07/06/2017 Spondylolisthesis at L4-L5 level [M43.16] 07/06/2017 COPD (chronic obstructive pulmonary disease) (H* Preop examination [Z01.818] ANJANA (obstructive sleep apnea) [G47.33] 09/27/2023 Encounter Status:Closed by CARINE MCKNIGHT on 09/29/23 Normal [facility] Basic metabolic 2000 panelon 09-27-2023 Anion gap [Moles/Vol] 11 mmol/L Normal 9-18 [facility] Comment on above: Order Comment: Speci men Type: BLOOD SPECIMENOrdering Facility: [facility] Address: [address] [place] [address] Performed By: #### 2 4321-2 ####[facility] LABORATORYCLIA [id number] [place] [address] [place] Calcium [Mass/Vol] 9.7 mg/dL Normal 8.5-10.2 [facility] Comment on above: Order Comment: Speci men Type: BLOOD SPECIMENOrdering Facility: [facility] Address: [address] [place] [address] Performed By: #### 2 4321-2 ####[facility] LABORATORYCLIA [id number] [place] [address] [place] Chloride [Moles/Vol] 101 mmol/L Normal 97-105 [facility] Comment on above: Order Comment: Speci men Type: BLOOD SPECIMENOrdering Facility: [facility] Address: [address] [place] [address] Performed By: #### 2 4321-2 ####[facility] LABORATORYCLIA [id number] [place] [address] [place] CO2 [Moles/Vol] 26 mmol/L Normal 22-30 [facility] Comment on above: Order Comment: Speci men Type: BLOOD SPECIMENOrdering Facility: [facility] Address: [address] [place] [address] Performed By: #### 2 4321-2 ####[facility] LABORATORYCLIA [id number] [place] [address] [place] Creatinine [Mass/Vol] 0.73 mg/dL Normal 0.58-0.96 [facility] Comment on above: Order Comment: Alfredojie mistry Type: BLOOD SPECIMENOrdering Facility: [facility] Address: [place] [address] Performed By: #### 2 4321-2 ####[facility] LABORATORYCLIA [id number] [place] [address] [place] Creatinine and Glomerular filtration rate.predicted panel (S/P/Bld) 90 mL/min/1.73m??? Normal >=60 [facility] Comment on above: Order Comment: Maddi fede Type: BLOOD SPECIMENOrdering Facility: [facility] Address: [place] [address] Result Comment: Belia mated Glomerular Filtration Rate (eGFR) is calculated using the 2020 CKD-EPI creatinine equation. This equation utilizes serum creatinine, sex, and age as parameters. The creatinine assay has traceable calibration to isotope dilution-mass spectrometry. Refer to KDIGO guidelines for clinical interpretation. In patients with unstable renal function, e.g. those with acute kidney injury, the eGFR may not accurately reflect actual GFR. Performed By: #### 2 4321-2 ####[facility] LABORATORYCLIA [id number] [place] [address] [place] Glucose [Mass/Vol] 113 mg/dL High 74-99 [facility] Comment on above: Order Comment: Alfredojie mistry Type: BLOOD SPECIMENOrdering Facility: [facility] Address: [address] [place] [address] Result Comment: The [place] Diabetes [employer] (ADA) provides guidance for cutoff values for fasting glucose and random glucose. The ADA defines fasting as no caloric intake for at least 8 hours. Fasting plasma glucose results between 100 to 125 mg/dL indicate increased risk for diabetes (prediabetes). Fasting plasma glucose results greater than or equal to 126 mg/dL meet the criteria for diagnosis of diabetes. In the absence of unequivocal hyperglycemia, results should be confirmed by repeat testing. In a patient with classic symptoms of hyperglycemia or hyperglycemic crisis, random plasma glucose results greater than or equal to 200 mg/dL meet the criteria for diagnosis of diabetes. Reference: Standards of Medical Care in Diabetes 2016, [place] [employer] Association. Diabetes Care. 2016.39(Suppl 1). Performed By: #### 2 4321-2 ####[facility] LABORATORYCLIA [id number] [address] STATES OF [facility] Potassium [Moles/Vol] 4.9 mmol/L Normal 3.7-5.1 [facility] Comment on above: Order Comment: Speci men Type: BLOOD SPECIMENOrdering Facility: [facility] Address: [address] [place] [address] Performed By: #### 2 4321-2 ####[facility] LABORATORYCLIA [id number] [address] STATES OF [facility] Sodium [Moles/Vol] 138 mmol/L Normal 136-144 [facility] Comment on above: Order Comment: Speci men Type: BLOOD SPECIMENOrdering Facility: [facility] Address: [address] [place] [address] Performed By: #### 2 4321-2 ####[facility] LABORATORYCLIA [id number] [address] Urea nitrogen [Mass/Vol] 18 mg/dL Normal 7-21 [facility] Comment on above: Order Comment: Speci men Type: BLOOD SPECIMENOrdering Facility: [facility] Address: [address] [place] [address] Performed By: #### 2 4321-2 ####[facility] LABORATORYCLIA [id number] [address] STATES [facility] CBC panel Auto (Bld)on 09-27 Erythrocyte distribution width (RBC) [Ratio] 17.3 % High 11.5-15.0 [facility] Comment on above: Order Comment: Speci men Type: BLOOD SPECIMENOrdering Facility: [facility] Address: [address] [place] [address] Performed By: #### 5 8410-2 ####[facility] LABORATORYCLIA [id number] [address] OF [facility] Hematocrit (Bld) [Volume fraction] 39.4 % Normal 36.0-46.0 [facility] Comment on above: Order Comment: Speci men Type: BLOOD SPECIMENOrdering Facility: [facility] Address: [address] [place] [address] Performed By: #### 5 8410-2 ####[facility] LABORATORYCLIA [id number] [address] OF [facility] Hemoglobin (Bld) [Mass/Vol] 13.2 g/dL Normal 11.5-15.5 [facility] Comment on above: Order Comment: Speci men Type: BLOOD SPECIMENOrdering Facility: [facility] Address: [address] [place] [address] Performed By: #### 5 8410-2 ####[facility] LABORATORYCLIA [id number] [address] MCH (RBC) [Entitic mass] 27.7 pg Normal 26.0-34.0 [facility] Comment on above: Order Comment: Speci men Type: BLOOD SPECIMENOrdering Facility: [facility] Address: [address] [place] [address] Performed By: #### 5 8410-2 ####[facility] LABORATORYCLIA [id number] [address] MCHC (RBC) [Mass/Vol] 33.5 g/dL Normal 30.5-36.0 [facility] Comment on above: Order Comment: Speci men Type: BLOOD SPECIMENOrdering Facility: [facility] Address: [address] [place] [address] Performed By: #### 5 8410-2 ####[facility] LABORATORYCLIA [id number] [address] STATES OF [facility] MCV (RBC) [Entitic vol] 82.6 fL Normal 80.0-100.0 [facility] Comment on above: Order Comment: Speci men Type: BLOOD SPECIMENOrdering Facility: [facility] Address: [address] [place] [address] Performed By: #### 5 8410-2 ####[facility] LABORATORYCLIA [id number] [place] [address] [place] Nucleated RBC (Bld) [#/Vol] 10*3/uL Normal <0.01 [facility] Comment on above: Order Comment: Speci men Type: BLOOD SPECIMENOrdering Facility: [facility] Address: [address] [place] [address] Performed By: #### 5 8410-2 ####[facility] LABORATORYCLIA [id number] [place] [address] [place] Platelet mean volume (Bld) [Entitic vol] 9.3 fL Normal 9.0-12.7 [facility] Comment on above: Order Comment: Speci men Type: BLOOD SPECIMENOrdering Facility: [facility] Address: [address] [place] [address] Performed By: #### 5 8410-2 ####[facility] LABORATORYCLIA [id number] [address] [place] Platelets (Bld) [#/Vol] 532 10*3/uL High 150-400 [facility] Comment on above: Order Comment: Speci men Type: BLOOD SPECIMENOrdering Facility: [facility] Address: [address] [place] [address] Performed By: #### 5 8410-2 ####[facility] LABORATORYCLIA [id number] [address] [place] RBC (Bld) [#/Vol] 4.77 10*6/uL Normal 3.90-5.20 [facility] Comment on above: Order Comment: Speci men Type: BLOOD SPECIMENOrdering Facility: [facility] Address: [address] [place] [address] Performed By: #### 5 8410-2 ####[facility] LABORATORYCLIA [id number] [address] [place] WBC (Bld) [#/Vol] 7.83 10*3/uL Normal 3.70-11.00 [facility] Comment on above: Order Comment: Speci men Type: BLOOD SPECIMENOrdering Facility: [facility] Address: [address] [place] [address] Performed By: #### 5 8410-2 ####[facility] LABORATORYCLIA [id number] [place] [address] [place] HISTORY PHYSICALon HISTORY PHYSICAL HNO ID: [id number] Author: CRUZ SHARMA PA Service: ? Author Type: Physician Warp Placer Type: H&P Filed: 09/27/2023 13:21 Note Text: HISTORY AND PHYSICAL EXAMINATION SERVICE DATE: 09/27/2023 SERVICE TIME: 1:15 PM PRIMARY CARE PHYSICIAN: Leonid Dee Jr, MD Assessment Patient has the following medical conditions which may affect candelaria-operative course: Preop examination - Please see AANDP for list of pertinent health issues. COPD (chronic obstructive pulmonary disease) (HCC) - Albuterol, Trelegy. - Pt uses rescue inhaler 1x per month. Pt denies hospitalization in last year. ANJANA (obstructive sleep apnea) - CPAP noncompliant. Reinoso Activity Status Index: METS: Climb a flight of stairs or walk up a hill (5.50 METs) DASI Score: 5.5 (Limited by hip pain.) Patient denies any chest pain or undue shortness of breath with the above physical activity. Clinical Frailty Scale: 4. Apparently vulnerable ARISCAT Score: Age: 51-80 Preoperative SpO2: >=96% Respiratory infection in the last month: No Preoperative anemia: No Surgical incision: peripheral Duration of surgery: >3 hrs Emergency procedure: No ARISCAT Score: 26 ANESTHESIA FINDINGS: Intubation History: No history of difficult intubation Significant Anesthesia Considerations: none Airway History: No history of difficult airway I - PHYSICAL EVALUATION AIRWAY Patient intubated: No. DENTAL Dental findings: teeth intact. II - ANESTHESIA PLAN Anesthetic Plan: general Beta Joe Monitoring Plan Post Procedure Analgesic Plan REASON FOR VISIT: Priscila Cha is a 67 year old female who is scheduled for Procedure(s): ARTHROPLASTY HIP (Right) at the request of Dr. Rubén Jimenes for routine HANDP. My final recommendation will be communicated back to the requesting physician by way of shared medical record or letter. Subjective The patient has the following: ACTIVE PROBLEM LIST Spondylolisthesis At L5-S1 Level Chronic Pain Multilevel Degenerative Disc Disease Spondylolisthesis of Lumbar Region Spondylolisthesis At L4-L5 Level Copd (Chronic Obstructive Pulmonary Disease) (Hcc) Preop Examination Anjana (Obstructive Sleep Apnea) COVID-19 Immunization Status Overdue - Covid-19 Vaccine () Overdue since 05/19/2023 07/24/2021 Imm Admin: COVID-19 original vaccine, full dose, monovalent (MODERNA) 12/21/2020 Imm Admin: COVID-19 original vaccine, full dose, monovalent (MODERNA) 11/23/2020 Imm Admin: COVID-19 original vaccine, full dose, monovalent (MODERNA) Only the first 3 history entries have been loaded, but more history exists. CHIEF COMPLAINT: The reason for this visit is To perform a comprehensive review of the patients past medical history, assess their current health status and obtain any additional testing required based on anesthesia guidelines. To assess and identify potential anesthesia problems, particularly those that may suggest potential complications or contraindications to the planned procedure. HPI: Patient presents for Procedure(s): ARTHROPLASTY HIP (Right). Pt states issues in the right hip for about 2 years that has worsened with time. Pt states constant 10/10 pain in the hip. Pt denies any associated numbness or tingling in the right leg. Patient denies any other problems or concerns at this time. Risks and benefits of the procedure discussed by Surgeon and patient agreed to proceed with planned procedure. REVIEW OF SYSTEMS: General: No weight loss, malaise or fevers. Neurological: Negative for: headaches, seizures and strokes. Respiratory: Positive for: COPD. Negative for: asthma, current cough, dyspnea, tobacco use and obstructive sleep apnea. Cardiovascular: Negative for: AICD/PPM, angina, anticoagulation therapy, atrial fibrillation, CAD, chest pain, CHF, DVT/PE, hyperlipidemia and hypertension. GI: Negative for: abdominal pain, dysphagia, nausea and vomiting. : Negative for: frequent urination, hematuria and urgency. Endocrine: Negative for: diabetes mellitus, hyperthyroidism and hypothyroidism. Hematology: Negative for: anemia, bruises/bleeds easily and chronic anti-coagulation/platel et meds. Oncology: No history of CA metastasis, chemo within 30 days, or radiotherapy within 90 days. No history of oncological symptoms or problems. Psych: Negative for: anxiety and depression. Musculoskeletal: See HPI. Skin: Negative for lesions, rash and itching. PAST MEDICAL HISTORY Diagnosis Date Anxiety Arthritis Atrophic vaginitis Chronic pain Constipation COPD (chronic obstructive pulmonary disease) ([facility]) Depression Dyspareunia in female Headache, migraine Hemorrhoids IBS (irritable bowel syndrome) patient denies IBS pt will d/w PCP Menopausal and female climacteric states Multilevel degenerative disc disease Panic disorder Shingles recurring Sinusitis Spondylolisthesis at L5-S1 level Urin (more content not included)... Normal [facility] Progress Noteon 09-27-2023 Progress Note [facility] CNCO[facility] 09-25-2023 CNCO Letter Text Normal [facility] CNOVon 09-25-2023 CNOV Office Visit (AGPOB1 ) PRISCILA CHA ([id number]) 1955 F Date Time Provider Department 09/25/23 11:00 AM [facility] During your visit today, we recorded the following information about you: Respiration Weight Height 20/minute 61.3 kg 1.6 m Rubén Jimenes MD 09/25/2023 11:52 AM Signed ORTHOPAEDIC OFFICE NOTE CHIEF COMPLAINT: Right hip pain HISTORY OF PRESENT ILLNESS: Priscila Cha is a 67 year old female who presents for Follow-up evaluation of right hip pain. Patient reports that her pain is significantly increased over the last 2 months. Previous injection approximately 4 months ago was effective for a couple months for the pain returned. She locates pain within the groin and states it is constant nature but worse with activity. She rates pain a 10/10 in intensity. She has more or less been unable to walk over the last couple months. She is unable take anti-inflammatory medications due to ongoing parks diverticulitis. She will take Tylenol for pain relief which is helpful. She does not require assistive device. She denies current fevers chills nausea vomiting weight loss fatigue or malaise. Of note, the pain has progressed to the point that it is having a significant negative impact on her quality of life and ability perform activities of daily living. Reviewed nursing note and current pain scale. PAST MEDICAL HISTORY Diagnosis Date Anxiety Arthritis Atrophic vaginitis Chronic pain Constipation COPD (chronic obstructive pulmonary disease) (HCC) Depression Dyspareunia in female Headache, migraine Hemorrhoids IBS (irritable bowel syndrome) patient denies IBS pt will d/w PCP Menopausal and female climacteric states Multilevel degenerative disc disease Panic disorder Shingles recurring Sinusitis Spondylolisthesis at L5-S1 level Urinary frequency PAST SURGICAL HISTORY Procedure Laterality Date BACK SURGERY HX 06/2017 cage around discs CATARACT EXTRACTION HX 2008 COLONOSCOPY 01/10/2018 EXTENSIVE JAW SURGERY 1983 SEPTOPLASTY 1985 TONSILLECTOMY HX age 4 FAMILY HISTORY Problem Relation Age of Onset Coronary Artery Disease Mother Coronary Artery Disease Father Colon Cancer Paternal Grandmother Arthritis Other other (Congestive heart failure) Other Thyroid Other Disorder Social History Tobacco Use Smoking status: Every Day Packs/day: .75 Types: Cigarettes Smokeless tobacco: Never Tobacco comments: Trying to quit Vaping Use Vaping Use: Never used Substance Use Topics Alcohol use: No Drug use: No MEDICATIONS: Current Outpatient Medications Medication Sig albuterol HFA (PROVENTIL HFA, VENTOLIN HFA) 90 mcg/actuation inhaler Inhale 2 Puffs as instructed every 4 hours as needed. cholecalciferol (VITAMIN D3) 1,000 unit tab tablet 2 tabs Orally Once a day TRELEGY ELLIPTA 200-62.5-25 mcg inhalation powder traZODone (DESYREL) 50 mg tablet clonazePAM (KLONOPIN) 0.5 mg tablet Take 0.5 mg by mouth twice daily as needed. ibuprofen (MOTRIN) 600 mg tablet Take 600 mg by mouth every 6 hours as needed. gabapentin (NEURONTIN) 300 mg capsule Take 300 mg by mouth daily at bedtime. No current facility-administered medications for this visit. ALLERGIES: ALLERGIES Allergen Reactions Levaquin [Levofloxa* GI Upset Sulfa (Sulfonamide * Vomiting PHYSICAL EXAMINATION: Resp 20 Ht 5' 3 (1.60m) Wt 135 lb 3.2 oz (61.3kg) BMI 23.96 kg/(m2). General Appearance: Well appearing, alert, in no acute distress, well-hydrated, well nourished. Skin: Skin color, texture, turgor normal, no suspicious rashes or lesions. Psych: Patient is alert and oriented to person, time and place. Mood and affect are normal. Respiratory: Breathing is symmetric and unlabored Gait: The patient was examined in a wheelchair today. She is unable to stand. Extremities: Right lower extremity was examined. Skin is intact without erythema, ecchymosis or surgical scar. There is no significant swelling, edema or effusion. There is no focal tenderness or palpable mass. Range of motion of the hip is 100 degrees forward flexion 20 degrees external rotation, 5 degrees internal rotation. There is pain with internal rotation. There is no pain with logroll or axial loading of the hip. Range of motion of the knee is painless. Straight leg test negative. Lymphatic: There is no palpable lymphadenopathy Peripheral Pulses: Normal. Neurologic: Bilateral lower extremities were examined. There is 5/5 strength with hip flexion, knee extension, dorsiflexion, EHL, plantar flexion. Sensation intact in all nerve dermatomes IMAGES: Physician office building radiographs dated 09/25/2023 was reviewed. AP and lateral views of the right hip demonstrate severe osteoarthritis of the right hip with worsening loss of joint space and subchondral sclerosis. There is no acute fracture o (more content not included)... Normal [facility] CNPNon 09-25-2023 CNPN Telephone (AGPOB1) PRISCILA CHA ([id number]) 1955 F Date Time Provider Department 09/25/23 KAVON MAYS [facility] During your visit today, we recorded the following information about you: Giacoma Justowriter Operator Keerthi Wiggins 09/25/2023 3:28 PM Signed Opened in error Allergies As of Date: 09/25/2023 Noted Allergy Reaction LEVAQUIN (LEVOFLOXACIN) 06/28/2017 8 - GI Upset SULFA (SULFONAMIDE ANTIBIOTICS) 06/28/2017 11 - Vomiting Date Reviewed: 09/25/2023 Reviewed by: Rubén Jimenes MD - Fully Assessed Reason for Visit: Appointment [186] error [307] Prescriptions as of 09/25/2023 - albuterol HFA (PROVENTIL HFA, VENTOLIN HFA) 90 mcg/actuation inhaler Inhale 2 Puffs as instructed every 4 hours as needed. - cholecalciferol (VITAMIN D3) 1,000 unit tab tablet 2 tabs Orally Once a day - TRELEGY ELLIPTA 200-62.5-25 mcg inhalation powder - traZODone (DESYREL) 50 mg tablet - clonazePAM (KLONOPIN) 0.5 mg tablet Take 0.5 mg by mouth twice daily as needed. - ibuprofen (MOTRIN) 600 mg tablet Take 600 mg by mouth every 6 hours as needed. - gabapentin (NEURONTIN) 300 mg capsule Take 300 mg by mouth daily at bedtime. Problem List As Of Date 09/25/2023 Noted Resolved Spondylolisthesis at L5-S1 level [M43.17] Chronic pain [G89.29] Multilevel degenerative disc disease [M53.9] Spondylolisthesis of lumbar region [M43.16] 07/06/2017 Spondylolisthesis at L4-L5 level [M43.16] 07/06/2017 Encounter Status:Closed by SHADIA SPRUE CUTTING PRESS OPERATOR KEERTHI WIGGINS on 09/25/23 [facility] 09-22-2023 [facility] Telephone (AGOTAL) PRISCILA CHA ([id number]) 1955 F Date Time Provider Department 09/22/23 RUBÉN JIMENES During your visit today, we recorded the following information about you: Marcy Castaneda 09/22/2023 9:26 AM Signed ----- Message from Ewelina Juan sent at 09/21/2023 10:48 AM EST ----- Regarding: Orthopedics/Jimenes/Rt Hip/Severe Hip Orthopedics/Jimenes/Rt Hip/Severe Hip Patient has been identified by name and Date of (Y/N): Y Patient: Priscila Cha Date of : 1955 Previous Provider Seen: Jalil Body Part(s) Identified: Rt Hip Diagnosis/Reason For Visit: Severe Pain Reason for the call/escalation: Pt looking for sooner appt with Dr. Jimenes or any provider. Pt is currently immobile due to the pain. If no appt before 09/28/23, asking for pain meds such as prednisone to help with pain until the appt. had called 08/18/23 requesting another provider to get sooner appt and never received a call back. If reason for call/escalation is discharge from ED/ER or Hospital, which facility was the patient seen at: na Was an appointment scheduled (Y/N): Jalil 09/28/23 Person calling if other than patient: Deja Return call to if other than patient: Deja Nguyen Best contact number: [phone] Thank you, Ewelina Juan September 21, 2023 10:48 AM Marcy Castaneda 09/22/2023 9:32 AM Signed Message to provider, patient on wait list if appointment opens up. Marcy Castaneda 09/25/2023 9:35 AM Signed Patient rescheduled for sooner appointment- OK Dr Jimenes Allergies As of Date: 09/22/2023 Noted Allergy Reaction LEVAQUIN (LEVOFLOXACIN) 06/28/2017 8 - GI Upset SULFA (SULFONAMIDE ANTIBIOTICS) 06/28/2017 11 - Vomiting Date Reviewed: 09/15/2023 Reviewed by: Mitzi Wang PA-C - Fully Assessed Reason for Visit: Appointment [186] Prescriptions as of 09/25/2023 - albuterol HFA (PROVENTIL HFA, VENTOLIN HFA) 90 mcg/actuation inhaler Inhale 2 Puffs as instructed every 4 hours as needed. - cholecalciferol (VITAMIN D3) 1,000 unit tab tablet 2 tabs Orally Once a day - TRELEGY ELLIPTA 200-62.5-25 mcg inhalation powder - traZODone (DESYREL) 50 mg tablet - clonazePAM (KLONOPIN) 0.5 mg tablet Take 0.5 mg by mouth twice daily as needed. - ibuprofen (MOTRIN) 600 mg tablet Take 600 mg by mouth every 6 hours as needed. - gabapentin (NEURONTIN) 300 mg capsule Take 300 mg by mouth daily at bedtime. Problem List As Of Date 09/22/2023 Noted Resolved Spondylolisthesis at L5-S1 level [M43.17] Chronic pain [G89.29] Multilevel degenerative disc disease [M53.9] Spondylolisthesis of lumbar region [M43.16] 07/06/2017 Spondylolisthesis at L4-L5 level [M43.16] 07/06/2017 Encounter Status:Closed by MARCY CASTANEDA on 09/25/23 [facility] CNOVon 09-15-2023 CNOV Office Visit (GSTNOR ) PRISCILA CHA ([id number]) 1955 F Date Time Provider Department 09/15/23 10:30 AM MITZI WANG During your visit today, we recorded the following information about you: Pulse Blood pressure Weight Height 90/minute 152/100 61.1 kg 1.6 m Mitzi Wang PA-C 09/15/2023 10:48 AM Signed CHIEF COMPLAINT: Patient presents with: Diverticulitis: Pt in a lot of pain. Almost went to the ER yesterday. States it feels like when she had diverticulitis in June, was in the hospital and has had the pain off and on since then. The pain got worse over the past few days. This consult was requested by Leonid Dee Jr* for an opinion regarding Diverticulitis. My final recommendations will be communicated to the requesting health care provider by way of the shared medical record for internal providers or letter via the [facility] Postal Service for external providers. HPI: Priscila Cha is a 67 year old female who presents for Diverticulitis (Pt in a lot of pain. Almost went to the ER yesterday. States it feels like when she had diverticulitis in June, was in the hospital and has had the pain off and on since then. The pain got worse over the past few days. ). PMHx of anxiety, arthritis, constipation, COPD Patient here for follow up of diverticulitis. Was feeling well up to several days ago and then developed severe LLQ pain. Patient is obvious distress during visit today. Notes nausea. No fevers. CT abd/pelvis 06/23/2023: Impression 1. Acute diverticulitis involving the the distal descending colon extending into the sigmoid colon. No focal fluid collection or evidence of perforation. 2. Moderate to severe mixed atherosclerotic plaque with infrarenal abdominal aortic aneurysm measuring 3.3 x 3.0 cm, previously 2.9 x 2.7 cm. Please see below recommendations. 3. Mild biliary ductal dilatation also seen on prior study and likely postsurgical. 4. Tiny joe of intraluminal air within the urinary bladder. This is nonspecific and could reflect recent instrumentation or infection. Given proximity to sigmoid colon fistula could be considered though this is felt to be less likely. Record Review: [facility] / Outside records reviewed. PAST MEDICAL HISTORY Diagnosis Date Anxiety Arthritis Atrophic vaginitis Chronic pain Constipation COPD (chronic obstructive pulmonary disease) (HCC) Depression Dyspareunia in female Headache, migraine Hemorrhoids IBS (irritable bowel syndrome) patient denies IBS pt will d/w PCP Menopausal and female climacteric states Multilevel degenerative disc disease Panic disorder Shingles recurring Sinusitis Spondylolisthesis at L5-S1 level Urinary frequency PAST SURGICAL HISTORY Procedure Laterality Date BACK SURGERY HX 06/2017 cage around discs CATARACT EXTRACTION HX 2009 COLONOSCOPY 01/10/2018 EXTENSIVE JAW SURGERY 1983 SEPTOPLASTY 1985 TONSILLECTOMY HX age 4 Allergies: ALLERGIES Allergen Reactions Levaquin [Levofloxa* GI Upset Sulfa (Sulfonamide * Vomiting Medications: albuterol HFA (PROVENTIL HFA, VENTOLIN HFA) 90 mcg/actuation inhaler Inhale 2 Puffs as instructed every 4 hours as needed. cholecalciferol (VITAMIN D3) 1,000 unit tab tablet 2 tabs Orally Once a day TRELEGY ELLIPTA 200-62.5-25 mcg inhalation powder traZODone (DESYREL) 50 mg tablet clonazePAM (KLONOPIN) 0.5 mg tablet Take 0.5 mg by mouth twice daily as needed. ibuprofen (MOTRIN) 600 mg tablet Take 600 mg by mouth every 6 hours as needed. gabapentin (NEURONTIN) 300 mg capsule Take 300 mg by mouth daily at bedtime. FAMILY HISTORY Problem Relation Age of Onset Coronary Artery Disease Mother Coronary Artery Disease Father Colon Cancer Paternal Grandmother Arthritis Other other (Congestive heart failure) Other Thyroid Other Disorder Employer And Job Title: None on file Years Of Education Completed: Not specified Marital Status: with 3 children Social History Tobacco Use Smoking status: Every Day Packs/day: .75 Types: Cigarettes Smokeless tobacco: Never Tobacco comments: Trying to quit Vaping Use Vaping Use: Never used Substance Use Topics Alcohol use: No Drug use: No Review of Systems: Review of Systems Gastrointestinal: Positive for abdominal pain and nausea. All other systems reviewed and are negative. Are you taking any blood thinners? No Physical Examination: BP 152/100 Pulse 90 Ht 5' 3 (1.60m) Wt 134 lb 9.6 oz (61.1kg) BMI 23.85 kg/(m2). Physical Exam Constitutional: General: She is in acute distress. Appearance: Normal appearance. She is normal weight. HENT: Head: Normocephalic and atraumatic. Eyes: General: No scleral icterus. Pulmonary: Effort: Pulmonary effort is normal. Musculoskeletal: General: No swelling. Cervical back: Normal range of motio (more content not included)... Normal [facility] 36on 08-25-2023 36 Appointment canceled Normal [facility] 36 Normal [facility] 08-21-2023 CNPN Telephone (AGPOB1) PRISCILA CHA ([id number]) 1955 F Date Time Provider Department 08/21/23 RUBÉN JIMENES During your visit today, we recorded the following information about you: Rosario Justowriter Operator Elan Wiggins 08/21/2023 1:45 PM Signed ----- Message from Isa Dennis sent at 08/18/2023 12:21 PM EST ----- Regarding: Orthopedics/Jalil Hip: Pain/Requesting Sooner Appt + Prednisone Script Contact: Orthopedics/Jalil Hip: Pain/Requesting Sooner Appt + Prednisone Script Patient has been identified by name and Date of (Y/N): y Patient: Priscila Cha Date of : 1955 Previous Provider Seen: Dr Jimenes Body Part(s) Identified: R hip Diagnosis/Reason For Visit: has appt w/ Dr Jimenes 09/28/23 for R hip pain. Pain is severe, so she is asking if it is possible to get sooner appt w/ Dr Jimenes or see another provider in the interim. If that's not possible, can she can a script for prednisone. Reason for the call/escalation: see above If reason for call/escalation is discharge from ED/ER or Hospital, which facility was the patient seen at: n/a Was an appointment scheduled (Y/N): n Person calling if other than patient: Deja Cha (spouse) Return call to if other than patient: same Best contact number: [phone] Thank you, Isa Dennis August 18, 2023 12:23 PM Allergies As of Date: 08/21/2023 Noted Allergy Reaction LEVAQUIN (LEVOFLOXACIN) 06/28/2017 8 - GI Upset SULFA (SULFONAMIDE ANTIBIOTICS) 06/28/2017 11 - Vomiting Date Reviewed: 05/12/2023 Reviewed by: Diya Luu RN - Fully Assessed Reason for Visit: Appointment [186] Cmt: Requesting sooner appt Prescriptions as of 08/21/2023 - TRELEGY ELLIPTA 100-62.5-25 mcg inhalation powder - traZODone (DESYREL) 50 mg tablet - modafinil (PROVIGIL) 100 mg tablet - clonazePAM (KLONOPIN) 0.5 mg tablet Take 0.5 mg by mouth twice daily as needed. - ibuprofen (MOTRIN) 600 mg tablet Take 600 mg by mouth every 6 hours as needed. - fluconazole (DIFLUCAN) 150 mg tablet 1 tablet po now; repeat in 2 days - gabapentin (NEURONTIN) 300 mg capsule Take 300 mg by mouth daily at bedtime. - ADVAIR DISKUS 250-50 mcg/dose dsdv INHALE 1 PUFF ONCE A DAY INTO THE LUNGS Problem List As Of Date 08/21/2023 Noted Resolved Spondylolisthesis at L5-S1 level [M43.17] Chronic pain [G89.29] Multilevel degenerative disc disease [M53.9] Spondylolisthesis of lumbar region [M43.16] 07/06/2017 Spondylolisthesis at L4-L5 level [M43.16] 07/06/2017 Encounter Status:Closed by ROSARIO SPRUE CUTTING PRESS OPERATOR ELAN WIGGINS on 08/21/23 Normal [facility] Progress Noteon 08-02-2023 Progress Note See above Normal [facility] Progress Note Normal [facility] Progress Note Intolerance to Sulfa drugs and Levofloxacin. Reports GI upset, N/V Normal [facility] CT ABDOMEN PELVIS W CONTRAST on 07-26-2023 CT ABDOMEN PELVIS W CONTRAST Normal [facility] Progress Noteon 07-19-2023 Progress Note Normal [facility] 36on 07-12-2023 36 Unable to contact patient X2 Normal [facility] 36on 07-11-2023 36 S: Patient admitted to: [facility] 06/23/23 B: Discharged on : 07/10/23 A: Hospital follow up call initiated to discuss any medication changes, follow up appointments and discharge instructions: Diverticulitis R: No contact x 1 at : [phone] Normal [facility] 36on 07-10-2023 36 Normal [facility] BASIC METABOLIC PANELon 06-19 Anion gap [Moles/Vol] 6 mmol/L Normal 3-13 [facility] Comment on above: Performed By: #### L AB15 ####Chief Information Officer: FREDRICK KHAN ([id number])[facility] (SBHLAB)[address] Calcium [Mass/Vol] 8.4 mg/dL Normal 8.4-10.4 [facility] Comment on above: Performed By: #### L AB15 ####Chief Information Officer: FREDRICK KHAN ([id number])[facility] (SBHLAB)[address] Chloride [Moles/Vol] 99 mmol/L Normal 98-107 [facility] Comment on above: Performed By: #### L AB15 ####Chief Information Officer: FREDRICK KHAN ([id number])[facility] CENTERMaik HINSONJUSTEN (SBHLAB)[address] CO2 [Moles/Vol] 29 mmol/L Normal 22-30 [facility] Comment on above: Performed By: #### L AB15 ####Chief Information Officer: FREDRICK KHAN ([id number])[facility]AMISBURGDines[facility] (SBHLAB)[address] Creatinine [Mass/Vol] 0.59 mg/dL Normal 0.52-1.04 [facility] Comment on above: Performed By: #### L AB15 ####Chief Information Officer: FREDRICK KHAN ([id number])[facility] (SBHLAB)[address] GLOMERULAR FILTRATION RATE ML/MIN/1.73 SQ M.PREDICTED >90.0 Normal >60.0 [facility] Comment on above: Result Comment: Calc ulation based on the Chronic Kidney Disease Epidemiology Collaboration (CKD-EPI) equation refit without adjustment for race Performed By: #### L AB15 ####Chief Information Officer: FREDRICK KHAN ([id number])[facility] CENTERMaik [facility]ENTERDinesh (HLAB)[address] Glucose [Mass/Vol] 100 mg/dL Normal 70-100 [facility] Comment on above: Performed By: #### L AB15 ####Chief Information Officer: FREDRICK KHAN ([id number])[facility] (SBHLAB)155 [place] [address] [place] Potassium [Moles/Vol] 3.6 mmol/L Normal 3.5-5.1 [facility] Comment on above: Performed By: #### L AB15 ####Chief Information Officer: FREDRICK KHAN ([id number])[facility] (SBHLAB)155 [place] [address] [place] Sodium [Moles/Vol] 134 mmol/L Low 135-145 [facility] Comment on above: Performed By: #### L AB15 ####Chief Information Officer: FREDRICK KHAN ([id number])[facility] (SBHLAB)[address] Urea nitrogen [Mass/Vol] 6 mg/dL Low 7-17 [facility] Comment on above: Performed By: #### L AB15 ####Chief Information Officer: FREDRICK RAMOSSATINDER ([id number])[facility] (SBHLAB)[address] Basic metabolic 1998 panelon 07-10-2023 Anion gap [Moles/Vol] 6 mmol/L 3 - 13 mmol/L [facility] Calcium [Mass/Vol] 8.4 mg/dL 8.4 - 10. 4 mg/dL [facility] Chloride [Moles/Vol] 99 mmol/L 98 - 10 7 mmol/L [facility] CO2 [Moles/Vol] 29 mmol/L 22 - 30 mmol/L [facility] Creatinine [Mass/Vol] 0.59 mg/dL 0.52 - 1.04 mg/dL [facility] GFR/1.73 sq M.predicted MDRD (S/P/Bld) [Vol rate/Area] - PINF [facility] Comment on above: Calculation based on the Chronic Kidney Disease Epidemiology Collaboration (CKD-EPI) equation refit without adjustment for race Glucose [Mass/Vol] 100 mg/dL 70 - 100 mg/dL [facility] Interpretation and review of laboratory results Abnormal [facility] Potassium [Moles/Vol] 3.6 mmol/L 3.5 - 5.1 mmol/L [facility] Sodium [Moles/Vol] 134 mmol/L Low 135 - 145 mmol/L [facility] Urea nitrogen [Mass/Vol] 6 mg/dL Low 7 - 17 mg/dL [facility] CARECOORDon 07-10-2023 CARECOORD Normal [facility] CBC W Auto Differential pane l (Bld)on 07-10-2023 Basophils (Bld) [#/Vol] 0.0 10*3/uL 0.0 - 0.2 10*3/uL [facility] Basophils/100 WBC (Bld) 1.0 % 0.0 - 2.0 % [facility] Eosinophils (Bld) [#/Vol] 0.2 10*3/uL 0.0 - 0.5 10*3/uL [facility] Eosinophils/100 WBC (Bld) 4.7 % 1.0 - 6.0 % [facility] Erythrocyte distribution width (RBC) [Ratio] 16.0 % High 11.5 - 14.5 % [facility] Hematocrit (Bld) [Volume fraction] 36.7 % 35.0 - 47.0 % [facility] Hemoglobin (Bld) [Mass/Vol] 12.1 g/dL 11.7 - 16.0 g/dL [facility] Interpretation and review of laboratory results Abnormal [facility] Lymphocytes (Bld) [#/Vol] 1.0 10*3/uL 1.0 - 4.3 10*3/uL [facility] Lymphocytes/100 WBC (Bld) 19.3 % Low 20.0 - 40.0 % [facility] MCH (RBC) [Entitic mass] 27.6 pg 26.0 - 34.0 pg [facility] MCHC (RBC) [Mass/Vol] 32.9 % 32.0 - 36.0 % [facility] MCV (RBC) [Entitic vol] 84.0 fL 80.0 - 98.0 fL [facility] Monocytes (Bld) [#/Vol] 0.6 10*3/uL 0.0 - 0.8 10*3/uL [facility] Monocytes/100 WBC (Bld) 12.3 % High 2.0 - 10.0 % [facility] Neutrophils (Bld) [#/Vol] 3.2 10*3/uL 1.8 - 7.0 10*3/uL [facility] Neutrophils/100 WBC (Bld) 62.7 % 40.0 - 80.0 % [facility] Nucleated RBC/100 WBC (Bld) [Ratio] 0.1 % [facility] Platelet mean volume (Bld) [Entitic vol] 7.5 fL 7.4 - 12.4 fL [facility] Platelets (Bld) [#/Vol] 356 10*3/uL 140 - 440 10*3/uL [facility] RBC (Bld) [#/Vol] 4.37 10*6/uL 3.8 - 5.20 10*6/uL [facility] WBC (Bld) [#/Vol] 5.1 10*3/uL 3.6 - 10.7 10*3/uL [facility] CBC WITH AUTO DIFFERENTIALon 07-10-2023 Basophils (Bld) [#/Vol] 0.0 10*3/uL Normal 0.0-0.2 [facility] Comment on above: Performed By: #### L [id number] ####Chief Information Officer: FREDRICK KHAN ([id number])[facility]ENTERA [place] (SBHLAB)[address] Basophils/100 WBC (Bld) 1.0 % Normal 0.0-2.0 [facility] Comment on above: Performed By: #### L [id number] ####Chief Information Officer: FREDRICK KHAN ([id number])[facility]ENTERA [place] (SBHLAB)[address] [place] [address] Eosinophils (Bld) [#/Vol] 0.2 10*3/uL Normal 0.0-0.5 [facility] Comment on above: Performed By: #### L [id number] ####Chief Information Officer: FREDRICK KHAN ([id number])[facility]A [place] (SBHLAB)[address] [place] [address] Eosinophils/100 WBC (Bld) 4.7 % Normal 1.0-6.0 [facility] Comment on above: Performed By: #### L [id number] ####Chief Information Officer: FREDRICK KHAN ([id number])[facility]ENTERA [place] (SBHLAB)[address] Erythrocyte distribution width (RBC) [Ratio] 16.0 % High 11.5-14.5 [facility] Comment on above: Performed By: #### L [id number] ####Chief Information Officer: FREDRICK KHNA ([id number])[facility]A [place] (SBHLAB)[address] [place] [address] ERYTHROCYTE MEAN CORPUSCULAR HEMOGLOBIN CONCENTRATION (G/DL) BY AUTOMATED 32.9 % Normal 32.0-36.0 [facility] Comment on above: Performed By: #### L [id number] ####Chief Information Officer: FREDRICK KHAN ([id number])[facility] [place] [address] Hematocrit (Bld) [Volume fraction] 36.7 % Normal 35.0-47.0 [facility] Comment on above: Performed By: #### L [id number] ####Chief Information Officer: FREDRICK KHAN ([id number])[facility] [place] [address] Hemoglobin (Bld) [Mass/Vol] 12.1 g/dL Normal 11.7-16.0 [facility] Comment on above: Performed By: #### L [id number] ####Chief Information Officer: FREDRICK KHAN ([id number])[facility] ([facility])[address] [place] [address] Lymphocytes (Bld) [#/Vol] 1.0 10*3/uL Normal 1.0-4.3 [facility] Comment on above: Performed By: #### L [id number] ####Chief Information Officer: FREDRICK KHAN ([id number])[facility] ([facility])[address] [place] [address] Lymphocytes/100 WBC (Bld) 19.3 % Low 20.0-40.0 [facility] Comment on above: Performed By: #### L [id number] ####Chief Information Officer: FREDRICK KHAN ([id number])[facility] (SBAB)[address] [place] [address] MCH (RBC) [Entitic mass] 27.6 pg Normal 26.0-34.0 [facility] Comment on above: Performed By: #### L [id number] ####Chief Information Officer: FREDRICK KHAN ([id number])[facility] [place] [address] MCV (RBC) [Entitic vol] 84.0 fL Normal 80.0-98.0 [facility] Comment on above: Performed By: #### L [id number] ####Chief Information Officer: FREDRICK RAMOSSATINDER ([id number])[facility] [place] (SBHLAB)[address] Monocytes (Bld) [#/Vol] 0.6 10*3/uL Normal 0.0-0.8 [facility] Comment on above: Performed By: #### L [id number] ####Chief Information Officer: FREDRICK BILL ([id number])[facility] [place] (SBHLAB)[address] Monocytes/100 WBC (Bld) 12.3 % High 2.0-10.0 [facility] Comment on above: Performed By: #### L [id number] ####Chief Information Officer: FREDRICK BILL ([id number])[facility] [place] (SBHLAB)[address] Neutrophils (Bld) [#/Vol] 3.2 10*3/uL Normal 1.8-7.0 [facility] Comment on above: Performed By: #### L [id number] ####Chief Information Officer: FREDRICK BILL ([id number])[facility] [place] (SBHLAB)[address] Neutrophils/100 WBC (Bld) 62.7 % Normal 40.0-80.0 [facility] Comment on above: Performed By: #### L [id number] ####Chief Information Officer: FREDRICK MONROYCAROLINA ([id number])[facility] [place] (SBHLAB)155 [place] [address] [place] NRBC (PER 100 WBCS) BY AUTOMATED COUNT 0.1 /100 WBCs Normal 0.0-2.0 [facility] Comment on above: Performed By: #### L [id number] ####Chief Information Officer: FREDRICK RAMOSSATINDER ([id number])[facility] [place] (SBHLAB)155 [place] [address] [place] Platelet mean volume (Bld) [Entitic vol] 7.5 fL Normal 7.4-12.4 [facility] Comment on above: Performed By: #### L [id number] ####Chief Information Officer: FREDRICK KHAN ([id number])[facility] CENTERMaik HINSONPRESBYTERIAN S[facility]ENTERN (SBHLAB)[address] PLATELETS (10*3/UL) IN BLOOD AUTOMATED COUNT 356 10*3/uL Normal 140-440 [facility] Comment on above: Performed By: #### L [id number] ####Chief Information Officer: FREDRICK KHAN ([id number])[facility]ENTERA [place] (SBHLAB)[address] RBC (Bld) [#/Vol] 4.37 10*6/uL Normal 3.8-5.20 [facility] Comment on above: Performed By: #### L [id number] ####Chief Information Officer: FREDRICK KHAN ([id number])[facility] (SBHLAB)[address] [place] [address] WBC (Bld) [#/Vol] 5.1 10*3/uL Normal 3.6-10.7 [facility] Comment on above: Performed By: #### L [id number] ####Chief Information Officer: FREDRICK KHAN ([id number])[facility] (SBHLAB)[address] [place] [address] Progress Noteon 07-10-2023 Progress Note Homegoing instructio ns given to patient and her . Peripheral line discontinued. Patient will be wheeled out of hospital. Normal [facility] Progress Note Normal [facility] BASIC METABOLIC PANELon 10-2 Anion gap [Moles/Vol] 2 mmol/L Low 3-13 [facility] Comment on above: Performed By: #### L AB149, LAB15 ####Chief Information Officer: FREDRICK KHAN ([id number])[facility] CENTERMaik [facility] (SBHLAB)[address] [place] [address] Calcium [Mass/Vol] 7.7 mg/dL Low 8.4-10.4 [facility] Comment on above: Performed By: #### L AB149, LAB15 ####Chief Information Officer: FREDRICK KHAN ([id number])[facility] [place] (SBHLAB)[address] Chloride [Moles/Vol] 102 mmol/L Normal 98-107 [facility] Comment on above: Performed By: #### L AB149, LAB15 ####Chief Information Officer: FREDRICK KHAN ([id number])[facility] [place] (SBHLAB)[address] CO2 [Moles/Vol] 25 mmol/L Normal 22-30 [facility] Comment on above: Performed By: #### L AB149, LAB15 ####Chief Information Officer: FREDRICK KHAN ([id number])[facility] (SBHLAB)[address] Creatinine [Mass/Vol] 0.56 mg/dL Normal 0.52-1.04 [facility] Comment on above: Performed By: #### L AB149, LAB15 ####Chief Information Officer: FREDRICK KHAN ([id number])[facility]ENTERA BARBPRESBYTERIAN SANT[facility] CENTERN (SBHLAB)[address] GLOMERULAR FILTRATION RATE ML/MIN/1.73 SQ M.PREDICTED >90.0 Normal >60.0 [facility] Comment on above: Result Comment: Calc ulation based on the Chronic Kidney Disease Epidemiology Collaboration (CKD-EPI) equation refit without adjustment for race Performed By: #### L AB149, LAB15 ####Chief Information Officer: FREDRICK KHAN ([id number])[facility] [place] (SBHLAB)[address] Glucose [Mass/Vol] 119 mg/dL High 70-100 [facility] Comment on above: Performed By: #### L AB149, LAB15 ####Chief Information Officer: FREDRICK KHAN ([id number])[facility]A [place] (SBHLAB)[address] Potassium [Moles/Vol] 3.6 mmol/L Normal 3.5-5.1 [facility] Comment on above: Performed By: #### L AB149, LAB15 ####Chief Information Officer: FREDRICK KHAN ([id number])[facility]ENTERA SRAVANPRESBYTERIAN SANTA FE MEDICAL CENTERN (SBHLAB)[address] Sodium [Moles/Vol] 129 mmol/L Low 135-145 [facility] Comment on above: Performed By: #### L AB149, LAB15 ####Chief Information Officer: FREDRICK SEYMOURCER ([id number])[facility] (SBHLAB)[address] Urea nitrogen [Mass/Vol] 9 mg/dL Normal 7-17 [facility] Comment on above: Performed By: #### L AB149, LAB15 ####Chief Information Officer: FREDRICK SEYMOURCER ([id number])[facility] (SBHLAB)[address] [place] [address] Basic metabolic 1998 panelon 07-09-2023 Anion gap [Moles/Vol] 2 mmol/L Low 3 - 13 mmol/L [facility] Calcium [Mass/Vol] 7.7 mg/dL Low 8.4 - 10. 4 mg/dL [facility] Chloride [Moles/Vol] 102 mmol/L 98 - 10 7 mmol/L [facility] CO2 [Moles/Vol] 25 mmol/L 22 - 30 mmol/L [facility] Creatinine [Mass/Vol] 0.56 mg/dL 0.52 - 1.04 mg/dL [facility] GFR/1.73 sq M.predicted MDRD (S/P/Bld) [Vol rate/Area] - PINF [facility] Comment on above: Calculation based on the Chronic Kidney Disease Epidemiology Collaboration (CKD-EPI) equation refit without adjustment for race Glucose [Mass/Vol] 119 mg/dL High 70 - 100 mg/dL [facility] Potassium [Moles/Vol] 3.6 mmol/L 3.5 - 5.1 mmol/L [facility] Sodium [Moles/Vol] 129 mmol/L Low 135 - 145 mmol/L [facility] Urea nitrogen [Mass/Vol] 9 mg/dL 7 - 17 mg/dL [facility] C-REACTIVE PROTEINon 023 CRP [Mass/Vol] 58.2 mg/L High <10.0 [facility] Comment on above: Performed By: #### L AB149, LAB15 ####Chief Information Officer: FREDRICK KHAN ([id number])[facility] (SBHLAB)[address] [place] [address] CBC W Auto Differential pane l (Bld)on 07-09-2023 Basophils (Bld) [#/Vol] 0.1 10*3/uL 0.0 - 0.2 10*3/uL [facility] Basophils/100 WBC (Bld) 1.0 % 0.0 - 2.0 % [facility] Eosinophils (Bld) [#/Vol] 0.2 10*3/uL 0.0 - 0.5 10*3/uL [facility] Eosinophils/100 WBC (Bld) 3.9 % 1.0 - 6.0 % [facility] Erythrocyte distribution width (RBC) [Ratio] 15.8 % High 11.5 - 14.5 % [facility] Hematocrit (Bld) [Volume fraction] 31.0 % Low 35.0 - 47.0 % [facility] Hemoglobin (Bld) [Mass/Vol] 10.2 g/dL Low 11.7 - 16.0 g/dL [facility] Interpretation and review of laboratory results Abnormal [facility] Lymphocytes (Bld) [#/Vol] 1.0 10*3/uL 1.0 - 4.3 10*3/uL [facility] Lymphocytes/100 WBC (Bld) 17.7 % Low 20.0 - 40.0 % [facility] MCH (RBC) [Entitic mass] 27.8 pg 26.0 - 34.0 pg [facility] MCHC (RBC) [Mass/Vol] 33.0 % 32.0 - 36.0 % [facility] MCV (RBC) [Entitic vol] 84.2 fL 80.0 - 98.0 fL [facility] Monocytes (Bld) [#/Vol] 0.9 10*3/uL High 0.0 - 0.8 10*3/uL [facility] Monocytes/100 WBC (Bld) 15.9 % High 2.0 - 10.0 % [facility] Neutrophils (Bld) [#/Vol] 3.4 10*3/uL 1.8 - 7.0 10*3/uL [facility] Neutrophils/100 WBC (Bld) 61.5 % 40.0 - 80.0 % [facility] Nucleated RBC/100 WBC (Bld) [Ratio] 0.0 % [facility] Platelet mean volume (Bld) [Entitic vol] 7.5 fL 7.4 - 12.4 fL [facility] Platelets (Bld) [#/Vol] 326 10*3/uL 140 - 440 10*3/uL [facility] RBC (Bld) [#/Vol] 3.68 10*6/uL Low 3.8 - 5.20 10*6/uL [facility] WBC (Bld) [#/Vol] 5.5 10*3/uL 3.6 - 10.7 10*3/uL [facility] CBC WITH AUTO DIFFERENTIALon 07-09-2023 Basophils (Bld) [#/Vol] 0.1 10*3/uL Normal 0.0-0.2 [facility] Comment on above: Performed By: #### L [id number] ####Chief Information Officer: FREDRICK KHAN ([id number])[facility] [place] [address] Basophils/100 WBC (Bld) 1.0 % Normal 0.0-2.0 [facility] Comment on above: Performed By: #### L [id number] ####Chief Information Officer: FREDRICK KHAN ([id number])[facility] (SBHLAB)[address] Eosinophils (Bld) [#/Vol] 0.2 10*3/uL Normal 0.0-0.5 [facility] Comment on above: Performed By: #### L [id number] ####Chief Information Officer: FREDRICK KHAN ([id number])[facility] (SBHLAB)[address] [place] [address] [place] Eosinophils/100 WBC (Bld) 3.9 % Normal 1.0-6.0 [facility] Comment on above: Performed By: #### L [id number] ####Chief Information Officer: FREDRICK MONROYNehalSATINDER ([id number])[facility]A [facility]BPRESBYTER[facility] (SBHLAB)[address] Erythrocyte distribution width (RBC) [Ratio] 15.8 % High 11.5-14.5 [facility] Comment on above: Performed By: #### L [id number] ####Chief Information Officer: FREDRICK BILL ([id number])[facility]BPRESBYTER[facility] (SBHLAB)[address] ERYTHROCYTE MEAN CORPUSCULAR HEMOGLOBIN CONCENTRATION (G/DL) BY AUTOMATED 33.0 % Normal 32.0-36.0 [facility] Comment on above: Performed By: #### L [id number] ####Chief Information Officer: FREDRICK BILL ([id number])[facility]BPRESBY[facility] (SBHLAB)[address] Hematocrit (Bld) [Volume fraction] 31.0 % Low 35.0-47.0 [facility] Comment on above: Performed By: #### L [id number] ####Chief Information Officer: FREDRICK BILL ([id number])[facility] (SBHLAB)[address] Hemoglobin (Bld) [Mass/Vol] 10.2 g/dL Low 11.7-16.0 [facility] Comment on above: Performed By: #### L [id number] ####Chief Information Officer: FREDRICK BILL ([id number])[facility] (SBHLAB)[address] Lymphocytes (Bld) [#/Vol] 1.0 10*3/uL Normal 1.0-4.3 [facility] Comment on above: Performed By: #### L [id number] ####Chief Information Officer: FREDRICK BILL ([id number])[facility] (SBHLAB)[address] [place] [address] [place] Lymphocytes/100 WBC (Bld) 17.7 % Low 20.0-40.0 [facility] Comment on above: Performed By: #### L [id number] ####Chief Information Officer: FREDRICK RAMOSSATINDER ([id number])[facility] [place] (SBHLAB)[address] MCH (RBC) [Entitic mass] 27.8 pg Normal 26.0-34.0 [facility] Comment on above: Performed By: #### L [id number] ####Chief Information Officer: FREDRICK MONROYADITYASATINDER ([id number])[facility] [place] (SBHLAB)[address] MCV (RBC) [Entitic vol] 84.2 fL Normal 80.0-98.0 [facility] Comment on above: Performed By: #### L [id number] ####Chief Information Officer: FREDRICK KHAN ([id number])[facility] [place] (SBHLAB)[address] Monocytes (Bld) [#/Vol] 0.9 10*3/uL High 0.0-0.8 [facility] Comment on above: Performed By: #### L [id number] ####Chief Information Officer: FREDRICK KHAN ([id number])[facility] [place] (SBHLAB)[address] Monocytes/100 WBC (Bld) 15.9 % High 2.0-10.0 [facility] Comment on above: Performed By: #### L [id number] ####Chief Information Officer: FREDRICK KHAN ([id number])[facility] [place] (SBHLAB)[address] Neutrophils (Bld) [#/Vol] 3.4 10*3/uL Normal 1.8-7.0 [facility] Comment on above: Performed By: #### L [id number] ####Chief Information Officer: FREDRICK KHAN ([id number])[facility] [place] (SBHLAB)[address] Neutrophils/100 WBC (Bld) 61.5 % Normal 40.0-80.0 [facility] Comment on above: Performed By: #### L [id number] ####Chief Information Officer: FREDRICK KHAN ([id number])[facility] [place] (SBHLAB)[address] NRBC (PER 100 WBCS) BY AUTOMATED COUNT 0.0 /100 WBCs Normal 0.0-2.0 [facility] Comment on above: Performed By: #### L [id number] ####Chief Information Officer: FREDRICK KHAN ([id number])[facility]PRES[facility] (SBHLAB)[address] Platelet mean volume (Bld) [Entitic vol] 7.5 fL Normal 7.4-12.4 [facility] Comment on above: Performed By: #### L [id number] ####Chief Information Officer: FREDRICK KHAN ([id number])[facility]BPRESBY[facility] (SBHLAB)[address] [place] [address] [place] PLATELETS (10*3/UL) IN BLOOD AUTOMATED COUNT 326 10*3/uL Normal 140-440 [facility] Comment on above: Performed By: #### L [id number] ####Chief Information Officer: FREDRICK KHAN ([id number])[facility] (SBHLAB)[address] RBC (Bld) [#/Vol] 3.68 10*6/uL Low 3.8-5.20 [facility] Comment on above: Performed By: #### L [id number] ####Chief Information Officer: FREDRICK KHAN ([id number])[facility] [place] (SBHLAB)[address] [place] [address] [place] WBC (Bld) [#/Vol] 5.5 10*3/uL Normal 3.6-10.7 [facility] Comment on above: Performed By: #### L [id number] ####Chief Information Officer: RFEDRICK KHAN ([id number])[facility] (SBHLAB)[address] Laboratory - Chemistry and C hemistry - challengeon 07-09-2023 CRP [Mass/Vol] 58.2 mg/L High NINF - 10.0 mg/L [facility] No Panel Informationon 07-09 Interpretation and review of laboratory results Abnormal [facility] Progress Noteon 07-09-2023 Progress Note Normal [facility] Progress Note Normal [facility] BASIC METABOLIC PANELon 06-19 Anion gap [Moles/Vol] 5 mmol/L Normal 3-13 [facility] Comment on above: Performed By: #### L [id number], [id number] ####Chief Information Officer: FREDRICK KHAN ([id number])[facility]ENTER[facility]ik K[facility]OUR[facility] (SBHLAB)[address] Calcium [Mass/Vol] 7.5 mg/dL Low 8.4-10.4 [facility] Comment on above: Performed By: #### L [id number], [id number] ####Chief Information Officer: FREDRICK KHAN ([id number])[facility] CENTERMaik BATISTADinesh (SBHLAB)[address] Chloride [Moles/Vol] 102 mmol/L Normal 98-107 [facility] Comment on above: Performed By: #### L AB15, [id number] ####Chief Information Officer: FREDRICK KHAN ([id number])[facility] CENTERMaik BATISTADinesh (SBHLAB)[address] [place] [address] [place] CO2 [Moles/Vol] 26 mmol/L Normal 22-30 [facility] Comment on above: Performed By: #### L AB15, [id number] ####Chief Information Officer: FREDRICK KHAN ([phone])[facility] (SBHLAB)[address] Creatinine [Mass/Vol] 0.54 mg/dL Normal 0.52-1.04 [facility] Comment on above: Performed By: #### L AB15, [id number] ####Chief Information Officer: FREDRICK KHAN ([id number])[facility] CENTERMaik HINSONHAV[facility] (SBHLAB)[address] GLOMERULAR FILTRATION RATE ML/MIN/1.73 SQ M.PREDICTED >90.0 Normal >60.0 [facility] Comment on above: Result Comment: Calc ulation based on the Chronic Kidney Disease Epidemiology Collaboration (CKD-EPI) equation refit without adjustment for race Performed By: #### L AB15, [id number] ####Chief Information Officer: FREDRICK KHAN ([id number])[facility] CENTERMaik BARBPRESBYTERIAN SANTA FE MEDICAL CENTERN (SBHLAB)[address] Glucose [Mass/Vol] 80 mg/dL Normal 70-100 [facility] Comment on above: Performed By: #### L AB15, [id number] ####Chief Information Officer: FREDRICK KHAN ([id number])[facility] (SBHLAB)[address] Potassium [Moles/Vol] 3.2 mmol/L Low 3.5-5.1 [facility] Comment on above: Performed By: #### L AB15, [id number] ####Chief Information Officer: FREDRICK HKAN ([id number])[facility] (SBHLAB)[address] Sodium [Moles/Vol] 133 mmol/L Low 135-145 [facility] Comment on above: Performed By: #### L AB15, [id number] ####Chief Information Officer: FREDRICK KHAN ([id number])[facility] (SB[facility]AB)[address] Urea nitrogen [Mass/Vol] 10 mg/dL Normal 7-17 [facility] Comment on above: Performed By: #### L AB15, [id number] ####Chief Information Officer: FREDRICK KHAN ([id number])[facility] (SBHLAB)[address] Basic metabolic 1998 panelon 07-08-2023 Anion gap [Moles/Vol] 5 mmol/L 3 - 13 mmol/L [facility] Calcium [Mass/Vol] 7.5 mg/dL Low 8.4 - 10. 4 mg/dL [facility] Chloride [Moles/Vol] 102 mmol/L 98 - 10 7 mmol/L [facility] CO2 [Moles/Vol] 26 mmol/L 22 - 30 mmol/L [facility] Creatinine [Mass/Vol] 0.54 mg/dL 0.52 - 1.04 mg/dL [facility] GFR/1.73 sq M.predicted MDRD (S/P/Bld) [Vol rate/Area] - PINF [facility] Comment on above: Calculation based on the Chronic Kidney Disease Epidemiology Collaboration (CKD-EPI) equation refit without adjustment for race Glucose [Mass/Vol] 80 mg/dL 70 - 100 mg/dL [facility] Interpretation and review of laboratory results Abnormal [facility] Potassium [Moles/Vol] 3.2 mmol/L Low 3.5 - 5.1 mmol/L [facility] Sodium [Moles/Vol] 133 mmol/L Low 135 - 145 mmol/L [facility] Urea nitrogen [Mass/Vol] 10 mg/dL 7 - 17 mg/dL [facility] CBC W Auto Differential pane l (Bld)on 07-08-2023 Erythrocyte distribution width (RBC) [Ratio] 16.0 % High 11.5 - 14.5 % [facility] Hematocrit (Bld) [Volume fraction] 35.6 % 35.0 - 47.0 % [facility] Hemoglobin (Bld) [Mass/Vol] 11.9 g/dL 11.7 - 16.0 g/dL [facility] MCH (RBC) [Entitic mass] 28.3 pg 26.0 - 34.0 pg [facility] MCHC (RBC) [Mass/Vol] 33.3 % 32.0 - 36.0 % [facility] MCV (RBC) [Entitic vol] 85.1 fL 80.0 - 98.0 fL [facility] Nucleated RBC/100 WBC (Bld) [Ratio] 0.3 % [facility] Platelet mean volume (Bld) [Entitic vol] 7.6 fL 7.4 - 12.4 fL [facility] Platelets (Bld) [#/Vol] 326 10*3/uL 140 - 440 10*3/uL [facility] RBC (Bld) [#/Vol] 4.19 10*6/uL 3.8 - 5.20 10*6/uL [facility] WBC (Bld) [#/Vol] 5.8 10*3/uL 3.6 - 10.7 10*3/uL [facility] CBC WITH AUTO DIFFERENTIALon 07-08-2023 Erythrocyte distribution width (RBC) [Ratio] 16.0 % High 11.5-14.5 [facility] Comment on above: Performed By: #### L [id number], [id number] ####Chief Information Officer: FREDRICK KHAN ([id number])[facility]ENTERA BARBPRESBYTERIAN SANTA FE MEDICAL CENTERN (SBHLAB)[address] [place] [address] ERYTHROCYTE MEAN CORPUSCULAR HEMOGLOBIN CONCENTRATION (G/DL) BY AUTOMATED 33.3 % Normal 32.0-36.0 [facility] Comment on above: Performed By: #### L [id number], [id number] ####Chief Information Officer: FREDRICK KHAN ([id number])[facility]ENTERA BARBPRESBYTERIAN SANTA FE MEDICAL CENTERN (SBHLAB)[address] [place] [address] Hematocrit (Bld) [Volume fraction] 35.6 % Normal 35.0-47.0 [facility] Comment on above: Performed By: #### L [id number], [id number] ####Chief Information Officer: FREDRICK KHAN ([id number])[facility]ENTERA BARBPRESBYTERIAN SANT[facility] FE MEDICAL CENTERN (SBHLAB)[address] [place] [address] Hemoglobin (Bld) [Mass/Vol] 11.9 g/dL Normal 11.7-16.0 [facility] Comment on above: Performed By: #### L [id number], [id number] ####Chief Information Officer: FREDRICK KHAN ([id number])[facility]ENTERA [place] (SBHLAB)[address] [place] [address] MCH (RBC) [Entitic mass] 28.3 pg Normal 26.0-34.0 [facility] Comment on above: Performed By: #### L [id number], [id number] ####Chief Information Officer: FREDRICK KHAN ([id number])[facility]ENTERA BARBPRESBYTERIAN SANT[facility] CENTERN (SBHLAB)[address] MCV (RBC) [Entitic vol] 85.1 fL Normal 80.0-98.0 [facility] Comment on above: Performed By: #### L [id number], [id number] ####Chief Information Officer: FREDRICK KHAN ([id number])[facility] CENTERMaik BATISTAN (SBHLAB)[address] NRBC (PER 100 WBCS) BY AUTOMATED COUNT 0.3 /100 WBCs Normal 0.0-2.0 [facility] Comment on above: Performed By: #### L [id number], [id number] ####Chief Information Officer: FREDRICK KHAN ([id number])[facility] CENTERA [place] (SBHLAB)[address] Platelet mean volume (Bld) [Entitic vol] 7.6 fL Normal 7.4-12.4 [facility] Comment on above: Performed By: #### L [id number], [id number] ####Chief Information Officer: FREDRICK KHAN ([id number])[facility] CENTERMaik [place] (SBHLAB)[address] PLATELETS (10*3/UL) IN BLOOD AUTOMATED COUNT 326 10*3/uL Normal 140-440 [facility] Comment on above: Performed By: #### L [id number], [id number] ####Chief Information Officer: FREDRICK KHAN ([id number])[facility]ENTERA [place] (SBHLAB)[address] RBC (Bld) [#/Vol] 4.19 10*6/uL Normal 3.8-5.20 [facility] Comment on above: Performed By: #### L [id number], [id number] ####Chief Information Officer: FREDRICK KHAN ([id number])[facility]ENTERA [place] (SBHLAB)[address] WBC (Bld) [#/Vol] 5.8 10*3/uL Normal 3.6-10.7 [facility] Comment on above: Performed By: #### L [id number], [id number] ####Chief Information Officer: FREDRICK KHAN ([id number])[facility] (SBHLAB)[address] [place] [address] Laboratory - Chemistry and C hemistry - challengeon 07-08-2023 Magnesium [Mass/Vol] 1.9 mg/dL 1.6 - 2 .3 mg/dL [facility] MAGNESIUMon 07-08-2023 Magnesium [Mass/Vol] 1.9 mg/dL Normal 1.6-2.3 [facility] Comment on above: Performed By: #### L AB15, [id number] ####Chief Information Officer: FREDRICK KHAN ([phone])[facility] ([facility])[address] [place] [address] MANUAL DIFFERENTIALon 2022 ANISOCYTOSIS PRESENCE IN BLOOD BY LIGHT MICROSCOPY Slight Abnormal (none) [facility] Comment on above: Performed By: #### L [id number], [id number] ####Chief Information Officer: FREDRICK KHAN ([id number])[facility] ([facility])[address] [place] [address] BAND NEUTROPHILS (10*3/UL) BLOOD MANUAL COUNT 0.3 10*3/uL High <=0.0 [facility] Comment on above: Performed By: #### L [id number], [id number] ####Chief Information Officer: FREDRICK KHAN ([id number])[facility] (SBHLAB)[address] [place] [address] BAND NEUTROPHILS TOTAL PER COUNTED LEUKOCYTES BY MANUAL COUNT 5 Normal [facility] Comment on above: Performed By: #### L [id number], [id number] ####Chief Information Officer: FREDRICK KHAN ([id number])[facility])[address] [place] [address] BASOPHILS (10*3/UL) IN BLOOD BY MANUAL COUNT 0.1 10*3/uL Normal 0.0-0.2 [facility] Comment on above: Performed By: #### L [id number], [id number] ####Chief Information Officer: FREDRICK KHAN ([id number])[facility] [place] (SBHLAB)[address] [place] [address] [place] BASOPHILS TOTAL PER COUNTED LEUKOCYTES BY MANUAL COUNT 2 Normal [facility] Comment on above: Performed By: #### L [id number], [id number] ####Chief Information Officer: FREDRICK KHAN ([id number])[facility] (SBHLAB)[address] [place] [address] [place] BASOPHILS/100 LEUKOCYTES IN BLOOD BY MANUAL COUNT 2 % Normal 0-2 [facility] Comment on above: Performed By: #### L [id number], [id number] ####Chief Information Officer: FREDRICK KHAN ([id number])[facility]ENTERA [place] (SBHLAB)[address] CELLS COUNTED TOTAL (#) IN BLOOD 100 Normal [facility] Comment on above: Performed By: #### L [id number], [id number] ####Chief Information Officer: FREDRICK KHAN ([id number])[facility]ENTERA [place] (SBHLAB)[address] [place] [address] [place] DIFFERENTIAL METHOD Manual differential performed Normal [facility] Comment on above: Performed By: #### L [id number], [id number] ####Chief Information Officer: FREDRICK KHAN ([id number])[facility]ENTERA [place] (SBHLAB)[address] [place] [address] [place] EOSINOPHILS (10*3/UL) IN BLOOD BY MANUAL COUNT 0.1 10*3/uL Normal 0.0-0.5 [facility] Comment on above: Performed By: #### L [id number], [id number] ####Chief Information Officer: FREDRICK KHAN ([phone])[facility]ENTERA [place] (SBHLAB)[address] [place] [address] [place] EOSINOPHILS TOTAL PER COUNTED LEUKOCYTES BY MANUAL COUNT 1 Normal 0-1 [facility] Comment on above: Performed By: #### L [id number], [id number] ####Chief Information Officer: FREDRICK KHAN ([id number])[facility]ENTERA [place] (SBHLAB)[address] EOSINOPHILS/100 LEUKOCYTES IN BLOOD BY MANUAL COUNT 1 % Normal 1-6 [facility] Comment on above: Performed By: #### L [id number], [id number] ####Chief Information Officer: FREDRICK KHAN ([id number])[facility]ENTERA [place] (SBHLAB)[address] HYPOCHROMIA (PRESENCE) IN BLOOD BY LIGHT MICROSCOPY Slight Abnormal (none) [facility] Comment on above: Performed By: #### L [id number], [id number] ####Chief Information Officer: FREDRICK KHAN ([id number])[facility]ENTERA [place] (SBHLAB)[address] LEUKOCYTE MORPHOLOGY FINDING IN BLOOD Normal Normal [facility] Comment on above: Performed By: #### L [id number], [id number] ####Chief Information Officer: FREDRICK KHAN ([id number])[facility]ENTERA [place] (SBHLAB)[address] LEUKOCYTES (10*3/UL) NUCLEATED ERYTHROCYTE ADJUST 5.8 10*3/uL Normal 3.6-10.7 [facility] Comment on above: Performed By: #### L HC2563, [id number] ####Chief Information Officer: FREDRICK KHAN ([id number])[facility] (SB[facility]AB)[address] LYMPHOCYTES (10*3/UL) IN BLOOD BY MANUAL COUNT 1.4 10*3/uL Normal 1.0-4.3 [facility] Comment on above: Performed By: #### L [id number], [id number] ####Chief Information Officer: FREDRICK KHAN ([id number])[facility]A [place] (SBHLAB)[address] LYMPHOCYTES TOTAL PER COUNTED LEUKOCYTES BY MANUAL COUNT 24 Normal [facility] Comment on above: Performed By: #### L [id number], [id number] ####Chief Information Officer: FREDRICK KHAN ([id number])[facility] (SBHLAB)[address] [place] [address] [place] LYMPHOCYTES/100 LEUKOCYTES IN BLOOD BY MANUAL COUNT 24 % Normal 20-40 [facility] Comment on above: Performed By: #### L QP4272, [id number] ####Chief Information Officer: FREDRICK BILL ([phone])[facility]A [place] (SBHLAB)[address] [place] [address] [place] MONOCYTES (10*3/UL) IN BLOOD BY MANUAL COUNT 0.9 10*3/uL High 0.0-0.8 [facility] Comment on above: Performed By: #### L [id number], [id number] ####Chief Information Officer: FREDRICK MONROYCAROLINA ([phone])[facility]A [place] (SBHLAB)[address] [place] [address] [place] MONOCYTES TOTAL PER COUNTED LEUKOCYTES BY MANUAL COUNT 16 Normal [facility] Comment on above: Performed By: #### L [id number], [id number] ####Chief Information Officer: FREDRICK RAMOSSATINDER ([id number])[facility]A [place] (SBHLAB)[address] [place] [address] [place] MONOCYTES/100 LEUKOCYTES IN BLOOD BY MANUAL COUNT 16 % High 2-10 [facility] Comment on above: Performed By: #### L [id number], [id number] ####Chief Information Officer: FREDRICK RAMOSSATINDER ([id number])[facility]A [place] (SBHLAB)[address] [place] [address] [place] NEUTROPHILS (SEGS+BANDS) (10*3/UL) BY MANUAL COUNT 3.3 10*3/uL Normal 1.8-7.0 [facility] Comment on above: Performed By: #### L [id number], [id number] ####Chief Information Officer: FREDRICK RAMOSSATINDER ([id number])[facility] [place] (SBHLAB)[address] [place] [address] [place] NEUTROPHILS BAND FORM/100 LEUKOCYTES IN BLOOD BY MANUAL COUNT 5 % High <=0 [facility] Comment on above: Performed By: #### L EH5009, [id number] ####Chief Information Officer: FREDRICK KHAN ([id number])[facility] (SBHLAB)[address] [place] [address] [place] NEUTROPHILS TOTAL PER COUNTED LEUKOCYTES BY MANUAL COUNT 52 Normal [facility] Comment on above: Performed By: #### L DH1598, [id number] ####Chief Information Officer: FREDRICK KHAN ([id number])[facility]A [place] (SBHLAB)[address] [place] [address] [place] OVALOCYTES PRESENCE IN BLOOD BY LIGHT MICROSCOPY Slight Abnormal (none) [facility] Comment on above: Performed By: #### L UB0105, [id number] ####Chief Information Officer: FREDRICK KHAN ([id number])[facility]A [place] (SBHLAB)[address] PLATELET MORPHOLOGY IN BLOOD Normal Normal [facility] Comment on above: Performed By: #### L [id number], [id number] ####Chief Information Officer: FREDRICK KHAN ([id number])[facility]A [place] (SBHLAB)[address] [place] [address] [place] POIKILOCYTOSIS (PRESENCE) IN BLOOD BY LIGHT MICROSCOPY Moderate Abnormal (none) [facility] Comment on above: Performed By: #### L [id number], [id number] ####Chief Information Officer: FREDRICK KHAN ([id number])[facility] [place] (SBHLAB)[address] [place] [address] [place] POLYCHROMASIA IN BLOOD BY LIGHT MICROSCOPY Slight Abnormal (none) [facility] Comment on above: Performed By: #### L [id number], [id number] ####Chief Information Officer: FREDRICK KHAN ([id number])[facility]A [place] (SBHLAB)[address] [place] [address] [place] SEGEMENTED NEUTROPHILS/100 LEUKOCYTES BY MANUAL COUNT 52 % Normal 40-80 [facility] Comment on above: Performed By: #### L [id number], [id number] ####Chief Information Officer: FREDRICK KHAN ([id number])[facility]A [place] (SBHLAB)[address] SEGMENTED NEUTROPHILS (10*3/UL)IN BLOOD BY MANUAL COUNT 3.3 10*3/uL Normal 1.8-7.0 [facility] Comment on above: Performed By: #### L [id number], [id number] ####Chief Information Officer: FREDRICK KHAN ([id number])[facility] (SBHLAB)[address] STOMATOCYTES IN BLOOD BY LIGHT MICROSCOPY Moderate Abnormal (none) [facility] Comment on above: Performed By: #### L [id number], [id number] ####Chief Information Officer: FREDRICK KHAN ([id number])[facility] (SBHLAB)[address] [place] [address] Magnesium [Mass/Vol]on 07-08 Interpretation and review of laboratory results Normal [facility] Manual differential performe d Ql (Bld)on 07-08-2023 Anisocytosis Ql (Bld) Slight Abnormal (none) [facility] Band form neutrophils (Bld) [#/Vol] 0.3 10*3/uL High NINF - 0.0 10*3/uL [facility] Band form neutrophils/100 WBC (Bld) 5 % High NINF - 0 % [facility] Bands Manual 5 [facility] Basophils (Bld) [#/Vol] 0.1 10*3/uL 0.0 - 0.2 10*3/uL [facility] Basophils Manual 2 [facility] alth Basophils/100 WBC (Bld) 2 % 0 - 2 % [facility] Cells Counted Total (Bld) [#] 100 {cells} [facility] Differential Method Manual differential performed [facility] Eosinophils (Bld) [#/Vol] 0.1 10*3/uL 0.0 - 0.5 10*3/uL [facility] Eosinophils Manual 1 0 - 1 [facility] Eosinophils/100 WBC (Bld) 1 % 1 - 6 % [facility] Hypochromia Ql (Bld) Slight Abnormal (none) [facility] Leukocyte morphology finding Nom (Bld) Normal [facility] Lymphocytes (Bld) [#/Vol] 1.4 10*3/uL 1.0 - 4.3 10*3/uL [facility] Lymphocytes Manual 24 [facility] Lymphocytes/100 WBC (Bld) 24 % 20 - 40 % [facility] Monocytes (Bld) [#/Vol] 0.9 10*3/uL High 0.0 - 0.8 10*3/uL [facility] Monocytes Manual 16 [facility] alth Monocytes/100 WBC (Bld) 16 % High 2 - 10 % [facility] Neutrophils (Bld) [#/Vol] 3.3 10*3/uL 1.8 - 7.0 10*3/uL [facility] Neutrophils Manual 52 [facility] Ovalocytes LM Ql (Bld) Slight Abnormal (none) [facility] Platelet morphology finding Nom (Bld) Normal [facility] Poikilocytosis LM Ql (Bld) Moderate Abnormal (none) [facility] Polychromasia LM Ql (Bld) Slight Abnormal (none) [facility] Segmented neutrophils/100 WBC (Bld) 52 % 40 - 80 % [facility] Stomatocytes LM Ql (Bld) Moderate Abnormal (none) [facility] WBC corrected for nucl RBC (Bld) [#/Vol] 5.8 10*3/uL 3.6 - 10.7 10*3/uL [facility] No Panel Informationon 07-08 Interpretation and review of laboratory results Abnormal [facility] Progress Noteon 07-08-2023 Progress Note Normal [facility] Progress [facility] CARECOORDon 07-07-2023 [place] Normal [facility] Progress Noteon 07-07-2023 Progress Note Normal [facility] Progress Note Normal [facility] Progress Note Normal [facility] Progress Note Normal [facility] CARECOORDon 07-06-2023 [place] Normal [facility] CBC (HEMOGRAM)on 07-06-2023 Erythrocyte distribution width (RBC) [Ratio] 15.5 % High 11.5-14.5 [facility] Comment on above: Performed By: #### L [id number] ####Chief Information Officer: FREDRICK KHAN ([phone])[facility] (SBAB)[address] ERYTHROCYTE MEAN CORPUSCULAR HEMOGLOBIN CONCENTRATION (G/DL) BY AUTOMATED 34.7 % Normal 32.0-36.0 [facility] Comment on above: Performed By: #### L [id number] ####Chief Information Officer: FREDRICK KHAN ([phone])[facility] (SB[facility]AB)[address] Hematocrit (Bld) [Volume fraction] 32.4 % Low 35.0-47.0 [facility] Comment on above: Performed By: #### L [id number] ####Chief Information Officer: FREDRICK KHAN ([id number])[facility] CENTERMaik [facility])[address] Hemoglobin (Bld) [Mass/Vol] 11.3 g/dL Low 11.7-16.0 [facility] Comment on above: Performed By: #### L [id number] ####Chief Information Officer: FREDRICK KHAN ([phone])[facility] CENTERMaik [place] (SBAB)[address] MCH (RBC) [Entitic mass] 29.4 pg Normal 26.0-34.0 [facility] Comment on above: Performed By: #### L [id number] ####Chief Information Officer: FREDRICK KHAN ([id number])[facility] (SBAB)[address] [place] [address] MCV (RBC) [Entitic vol] 84.8 fL Normal 80.0-98.0 [facility] Comment on above: Performed By: #### L AB294 ####Chief Information Officer: FREDRICK KHAN ([phone])[facility]ENTERMaik [facility] (SBAB)[address] Platelet mean volume (Bld) [Entitic vol] 7.4 fL Normal 7.4-12.4 [facility] Comment on above: Performed By: #### L AB294 ####Chief Information Officer: FREDRICK KHAN ([id number])[facility]ENTERMaik [place] (SBHLAB)[address] PLATELETS (10*3/UL) IN BLOOD AUTOMATED COUNT 399 10*3/uL Normal 140-440 [facility] Comment on above: Performed By: #### L AB294 ####Chief Information Officer: FREDRICK KHAN ([id number])[facility]ENTERMaik [place] (SBHLAB)[address] RBC (Bld) [#/Vol] 3.83 10*6/uL Normal 3.8-5.20 [facility] Comment on above: Performed By: #### L AB294 ####Chief Information Officer: FREDRICK KHAN ([phone])[facility] CENTERMaik [facility] (SBHLAB)[address] [place] [address] WBC (Bld) [#/Vol] 9.7 10*3/uL Normal 3.6-10.7 [facility] Comment on above: Performed By: #### L [id number] ####Chief Information Officer: FREDRICK KHAN ([id number])[facility]ENTERMaik [facility] (SBHLAB)[address] [place] [address] CBC panel Auto (Bld)Ordered By: Sandy Ku on 07-06-2023 Erythrocyte distribution width (RBC) [Ratio] 15.5 % High 11.5 - 14.5 % [facility] Hematocrit (Bld) [Volume fraction] 32.4 % Low 35.0 - 47.0 % [facility] Hemoglobin (Bld) [Mass/Vol] 11.3 g/dL Low 11.7 - 16.0 g/dL [facility] Interpretation and review of laboratory results Abnormal [facility] MCH (RBC) [Entitic mass] 29.4 pg 26.0 - 34.0 pg [facility] MCHC (RBC) [Mass/Vol] 34.7 % 32.0 - 36.0 % [facility] MCV (RBC) [Entitic vol] 84.8 fL 80.0 - 98.0 fL [facility] Platelet mean volume (Bld) [Entitic vol] 7.4 fL 7.4 - 12.4 fL [facility] Platelets (Bld) [#/Vol] 399 10*3/uL 140 - 440 10*3/uL [facility] RBC (Bld) [#/Vol] 3.83 10*6/uL 3.8 - 5.20 10*6/uL [facility] WBC (Bld) [#/Vol] 9.7 10*3/uL 3.6 - 10.7 10*3/uL [facility] COMPLETE URINALYSISon 2022 BILIRUBIN, TOTAL PRESENCE IN URINE Negative Normal Negative [facility] Comment on above: Performed By: #### L [id number] ####Chief Information Officer: FREDRICK KHAN ([phone])[facility] ([facility])[address] Clarity (U) Clear Normal Clear [facility] Comment on above: Performed By: #### L [id number] ####Chief Information Officer: FREDRICK KHAN ([phone])[facility] ([facility])[address] [place] [address] Color (U) Light Yellow Normal Lt. Yellow [facility] Comment on above: Performed By: #### L [id number] ####Chief Information Officer: FREDRICK KHAN ([id number])[facility] ([facility])[address] [place] [address] GLUCOSE (MG/DL) IN URINE Normal Normal Normal (<70) [facility] Comment on above: Performed By: #### L AB347 ####Chief Information Officer: FREDRICK KHAN ([id number])[facility] ([facility])[address] [place] [address] HEMOGLOBIN PRESENCE IN URINE Negative Normal Negative [facility] Comment on above: Performed By: #### L AB347 ####Chief Information Officer: FREDRICK KHAN ([id number])[facility] ([facility])[address] [place] [address] Ketones Ql (U) 40 mg/dL Abnormal Negative [facility] Comment on above: Performed By: #### L AB347 ####Chief Information Officer: FREDRICK KHAN ([id number])[facility]ENTERMaik [facility]BPRESBYTER[facility]ERN (SBHLAB)[address] LEUKOCYTE ESTERASE PRESENCE IN URINE BY TEST STRIP Negative Normal Negative [facility] Comment on above: Performed By: #### L AB347 ####Chief Information Officer: FREDRICK BILL ([id number])[facility]A [facility] (SBHLAB)[address] NITRITE PRESENCE IN URINE Negative Normal Negative [facility] Comment on above: Performed By: #### L AB347 ####Chief Information Officer: FREDRICK MONROYCAROLINA ([id number])[facility] (SBHLAB)[address] pH (U) 5.5 [pH] Normal 5.0-8.0 [facility] Comment on above: Performed By: #### L AB347 ####Chief Information Officer: FREDRICK KHAN ([id number])[facility]A [place] (SBHLAB)[address] Protein (U) [Mass/Vol] Negative Normal Negative [facility] Comment on above: Performed By: #### L AB347 ####Chief Information Officer: FREDRICK KHAN ([id number])[facility] (SBHLAB)[address] Specific gravity (U) [Rel density] 1.011 Normal 1.005-1.030 [facility] Comment on above: Performed By: #### L AB347 ####Chief Information Officer: FREDRICK RAMOSSATINDER ([id number])[facility] (SBHLAB)[address] UROBILINOGEN (MG/DL) IN URINE Normal Normal Normal (0-1) [facility] Comment on above: Performed By: #### L AB347 ####Chief Information Officer: FREDRICK KHAN ([id number])[facility] (SB[facility])[address] COMPREHENSIVE METABOLIC PANE Miles 07-06-2023 Albumin [Mass/Vol] 3.3 g/dL Low 3.5-5.0 [facility] Comment on above: Performed By: #### L AB17 ####Chief Information Officer: FREDRICK KHAN ([id number])[facility] [place] (SBHLAB)[address] ALP [Catalytic activity/Vol] 68 U/L Normal 38-126 [facility] Comment on above: Performed By: #### L AB17 ####Chief Information Officer: FREDRICK KHAN ([id number])[facility] [place] (SBHLAB)[address] ALT [Catalytic activity/Vol] 12 U/L Normal 0-34 [facility] Comment on above: Performed By: #### L AB17 ####Chief Information Officer: FREDRICK KHAN ([id number])[facility]A [place] (SBHLAB)[address] Anion gap [Moles/Vol] 4 mmol/L Normal 3-13 [facility] Comment on above: Performed By: #### L AB17 ####Chief Information Officer: FREDRICK KHAN ([id number])[facility] [place] (SBHLAB)[address] AST [Catalytic activity/Vol] 23 U/L Normal 15-46 [facility] Comment on above: Performed By: #### L AB17 ####Chief Information Officer: FREDRICK KHAN ([id number])[facility] [place] (SBHLAB)[address] Bilirubin [Mass/Vol] 0.4 mg/dL Normal 0.2-1.3 [facility] Comment on above: Performed By: #### L AB17 ####Chief Information Officer: FREDRICK KHAN ([id number])[facility] [place] (SBHLAB)[address] Calcium [Mass/Vol] 8.7 mg/dL Normal 8.4-10.4 [facility] Comment on above: Performed By: #### L AB17 ####Chief Information Officer: FREDRICK KHAN ([id number])[facility] [place] (SBHLAB)[address] Chloride [Moles/Vol] 103 mmol/L Normal 98-107 [facility] Comment on above: Performed By: #### L AB17 ####Chief Information Officer: FREDRICK KHAN ([id number])[facility] [place] (SBHLAB)[address] CO2 [Moles/Vol] 24 mmol/L Normal 22-30 [facility] Comment on above: Performed By: #### L AB17 ####Chief Information Officer: FREDRICK RAMOSSATINDER ([id number])[facility] ([facility])[address] Creatinine [Mass/Vol] 0.48 mg/dL Low 0.52-1.04 [facility] Comment on above: Performed By: #### L AB17 ####Chief Information Officer: FREDRICK KHAN ([id number])[facility]A [facility] (SBHLAB)[address] GLOMERULAR FILTRATION RATE ML/MIN/1.73 SQ M.PREDICTED >90.0 Normal >60.0 [facility] Comment on above: Result Comment: Calc ulation based on the Chronic Kidney Disease Epidemiology Collaboration (CKD-EPI) equation refit without adjustment for race Performed By: #### L AB17 ####Chief Information Officer: FREDRICK KHAN ([id number])[facility] [place] (SBHLAB)[address] [place] [address] [place] Glucose [Mass/Vol] 88 mg/dL Normal 70-100 [facility] Comment on above: Performed By: #### L AB17 ####Chief Information Officer: FREDRICK KHAN ([id number])[facility]A [facility] (SB[facility])[address] Potassium [Moles/Vol] 3.9 mmol/L Normal 3.5-5.1 [facility] Comment on above: Performed By: #### L AB17 ####Chief Information Officer: FREDRICK RAMOSSATINDER ([id number])[facility]A [place] (SBHLAB)[address] Protein [Mass/Vol] 6.6 g/dL Normal 6.3-8.2 [facility] Comment on above: Performed By: #### L AB17 ####Chief Information Officer: FREDRICK KHAN ([id number])[facility] [place] (SBHLAB)[address] Sodium [Moles/Vol] 131 mmol/L Low 135-145 [facility] Comment on above: Performed By: #### L AB17 ####Chief Information Officer: FREDRICK RAMOSSATINDER ([id number])[facility] [place] (SBHLAB)[address] [place] [address] Urea nitrogen [Mass/Vol] 8 mg/dL Normal 7-17 [facility] Comment on above: Performed By: #### L AB17 ####Chief Information Officer: FREDRICK RAMOSSATINDER ([id number])[facility]A [facility] ([facility])[address] [place] [address] Comprehensive metabolic 1998 panelon 07-06-2023 Albumin [Mass/Vol] 3.3 g/dL Low 3.5 - 5.0 g/dL [facility] ALP [Catalytic activity/Vol] 68 U/L 38 - 126 U/L [facility] ALT [Catalytic activity/Vol] 12 U/L 0 - 34 U/L [facility] Anion gap [Moles/Vol] 4 mmol/L 3 - 13 mmol/L [facility] AST [Catalytic activity/Vol] 23 U/L 15 - 46 U/L [facility] Bilirubin [Mass/Vol] 0.4 mg/dL 0.2 - 1 .3 mg/dL [facility] Calcium [Mass/Vol] 8.7 mg/dL 8.4 - 10. 4 mg/dL [facility] Chloride [Moles/Vol] 103 mmol/L 98 - 10 7 mmol/L [facility] CO2 [Moles/Vol] 24 mmol/L 22 - 30 mmol/L [facility] Creatinine [Mass/Vol] 0.48 mg/dL Low 0.52 - 1.04 mg/dL [facility] GFR/1.73 sq M.predicted MDRD (S/P/Bld) [Vol rate/Area] - PINF [facility] Comment on above: Calculation based on the Chronic Kidney Disease Epidemiology Collaboration (CKD-EPI) equation refit without adjustment for race Glucose [Mass/Vol] 88 mg/dL 70 - 100 mg/dL [facility] Interpretation and review of laboratory results Abnormal [facility] Potassium [Moles/Vol] 3.9 mmol/L 3.5 - 5.1 mmol/L [facility] Protein [Mass/Vol] 6.6 g/dL 6.3 - 8.2 g/dL [facility] Sodium [Moles/Vol] 131 mmol/L Low 135 - 145 mmol/L [facility] Urea nitrogen [Mass/Vol] 8 mg/dL 7 - 17 mg/dL [facility] Consulton 07-06-2023 Consult Normal [facility] Progress Noteon 07-06-2023 Progress Note Normal [facility] Progress Note Normal [facility] Urinalysis complete panel (U )Ordered By: Lisseth Mendieta on 07-06-2023 Bilirubin Ql (U) Negative Negative mg/dL [facility] Clarity (U) Clear Clear [facility] Color (U) Light Yellow Lt. Yellow [facility] Glucose Ql (U) Normal Normal (<70) mg/dL [facility] Hemoglobin Ql (U) Negative Negative mg/dL [facility] Interpretation and review of laboratory results Abnormal [facility] Ketones (U) [Mass/Vol] 40 mg/dL Abnormal Negative [facility] Leukocyte esterase Test strip Ql (U) Negative Negative Lauro/uL [facility] Nitrite Ql (U) Negative Negative [facility] th pH (U) 5.5 [pH] 5.0 - 8.0 pH [facility] Protein (U) [Mass/Vol] Negative Negat santino mg/dL [facility] Specific gravity (U) [Rel density] 1.011 1.005 - 1.030 [facility] Urobilinogen (U) [Mass/Vol] Normal Normal (0-1) mg/dL [facility] CARECOORDon 07-05-2023 CARECOORD Normal [facility] CBC (HEMOGRAM)on 07-05-2023 Erythrocyte distribution width (RBC) [Ratio] 15.6 % High 11.5-14.5 [facility] Comment on above: Performed By: #### L AB294 ####Chief Information Officer: FREDRICK KHAN ([id number])[facility] (SBHLAB)[address] ERYTHROCYTE MEAN CORPUSCULAR HEMOGLOBIN CONCENTRATION (G/DL) BY AUTOMATED 32.3 % Normal 32.0-36.0 [facility] Comment on above: Performed By: #### L AB294 ####Chief Information Officer: FREDRICK KHAN ([id number])[facility] CENTERMaik BARBJUSETN (SBHLAB)[address] Hematocrit (Bld) [Volume fraction] 38.1 % Normal 35.0-47.0 [facility] Comment on above: Performed By: #### L AB294 ####Chief Information Officer: FREDRICK KHAN ([id number])[facility] CENTERMaik [place] (SBHLAB)[address] [place] [address] Hemoglobin (Bld) [Mass/Vol] 12.3 g/dL Normal 11.7-16.0 [facility] Comment on above: Performed By: #### L AB294 ####Chief Information Officer: FREDRICK KHAN ([id number])[facility] CENTERMaik [place] (SBHLAB)[address] [place] [address] MCH (RBC) [Entitic mass] 27.8 pg Normal 26.0-34.0 [facility] Comment on above: Performed By: #### L AB294 ####Chief Information Officer: FREDRICK KHAN ([id number])[facility] CENTERMaik [place] (SBHLAB)[address] MCV (RBC) [Entitic vol] 86.0 fL Normal 80.0-98.0 [facility] Comment on above: Performed By: #### L AB294 ####Chief Information Officer: FREDRICK KHAN ([id number])[facility] CENTERMaik KHOUR[place] (SBHLAB)[address] Platelet mean volume (Bld) [Entitic vol] 7.4 fL Normal 7.4-12.4 [facility] Comment on above: Performed By: #### L AB294 ####Chief Information Officer: FREDRICK KHAN ([id number])[facility]ENTERMaik [place] (SBHLAB)[address] PLATELETS (10*3/UL) IN BLOOD AUTOMATED COUNT 460 10*3/uL High 140-440 [facility] Comment on above: Performed By: #### L AB294 ####Chief Information Officer: FREDRICK KHAN ([id number])[facility] CENTERMaik BATISTADinesh (SBHLAB)[address] RBC (Bld) [#/Vol] 4.43 10*6/uL Normal 3.8-5.20 [facility] Comment on above: Performed By: #### L AB294 ####Chief Information Officer: FREDRICK KHAN ([id number])[facility] CENTERMaik BATISTADinesh (SBHLAB)[address] [place] [address] WBC (Bld) [#/Vol] 13.6 10*3/uL High 3.6-10.7 [facility] Comment on above: Performed By: #### L AB294 ####Chief Information Officer: FREDRICK KHAN ([id number])[facility]ENTERMaik [place] (SBHLAB)[address] [place] [address] CBC panel Auto (Bld)on 07-05 Erythrocyte distribution width (RBC) [Ratio] 15.6 % High 11.5 - 14.5 % [facility] Hematocrit (Bld) [Volume fraction] 38.1 % 35.0 - 47.0 % [facility] Hemoglobin (Bld) [Mass/Vol] 12.3 g/dL 11.7 - 16.0 g/dL [facility] Interpretation and review of laboratory results Abnormal [facility] MCH (RBC) [Entitic mass] 27.8 pg 26.0 - 34.0 pg [facility] MCHC (RBC) [Mass/Vol] 32.3 % 32.0 - 36.0 % [facility] MCV (RBC) [Entitic vol] 86.0 fL 80.0 - 98.0 fL [facility] Platelet mean volume (Bld) [Entitic vol] 7.4 fL 7.4 - 12.4 fL [facility] Platelets (Bld) [#/Vol] 460 10*3/uL High 140 - 440 10*3/uL [facility] RBC (Bld) [#/Vol] 4.43 10*6/uL 3.8 - 5.20 10*6/uL [facility] WBC (Bld) [#/Vol] 13.6 10*3/uL High 3.6 - 10.7 10*3/uL [facility] COMPREHENSIVE METABOLIC PANE Miles 07-05-2023 Albumin [Mass/Vol] 3.7 g/dL Normal 3.5-5.0 [facility] Comment on above: Performed By: #### L AB17, [id number] ####Chief Information Officer: FREDRICK KHAN ([id number])[facility] ([facility])[address] ALP [Catalytic activity/Vol] 82 U/L Normal 38-126 [facility] Comment on above: Performed By: #### L AB17, [id number] ####Chief Information Officer: FREDRICK KHAN ([id number])[facility] ([facility])[address] ALT [Catalytic activity/Vol] 14 U/L Normal 0-34 [facility] Comment on above: Performed By: #### L AB17, [id number] ####Chief Information Officer: FREDRICK KHAN ([id number])[facility] ([facility])[address] Anion gap [Moles/Vol] 6 mmol/L Normal 3-13 [facility] Comment on above: Performed By: #### L AB17, [id number] ####Chief Information Officer: FREDRICK KHAN ([id number])[facility] (SBHLAB)[address] [place] [address] [place] AST [Catalytic activity/Vol] 31 U/L Normal 15-46 [facility] Comment on above: Performed By: #### L AB17, [id number] ####Chief Information Officer: FREDRICK KHAN ([id number])[facility] [place] (SBHLAB)[address] Bilirubin [Mass/Vol] 0.6 mg/dL Normal 0.2-1.3 [facility] Comment on above: Performed By: #### L AB17, [id number] ####Chief Information Officer: FREDRICK KHAN ([id number])[facility]A [facility] (SBHLAB)[address] Calcium [Mass/Vol] 9.0 mg/dL Normal 8.4-10.4 [facility] Comment on above: Performed By: #### L AB17, [id number] ####Chief Information Officer: FREDRICK KHAN ([id number])[facility] [place] (SBHLAB)[address] [place] [address] [place] Chloride [Moles/Vol] 102 mmol/L Normal 98-107 [facility] Comment on above: Performed By: #### L AB17, [id number] ####Chief Information Officer: FREDRICK KHAN ([id number])[facility] [place] (SBHLAB)[address] [place] [address] [place] CO2 [Moles/Vol] 27 mmol/L Normal 22-30 [facility] Comment on above: Performed By: #### L AB17, [id number] ####Chief Information Officer: FREDRICK KHAN ([id number])[facility] [place] (SBHLAB)[address] [place] [address] [place] Creatinine [Mass/Vol] 0.52 mg/dL Normal 0.52-1.04 [facility] Comment on above: Performed By: #### L AB17, [id number] ####Chief Information Officer: FREDRICK KHAN ([id number])[facility] [place] (SBHLAB)[address] [place] [address] [place] GLOMERULAR FILTRATION RATE ML/MIN/1.73 SQ M.PREDICTED >90.0 Normal >60.0 [facility] Comment on above: Result Comment: Calc ulation based on the Chronic Kidney Disease Epidemiology Collaboration (CKD-EPI) equation refit without adjustment for race Performed By: #### L AB17, [id number] ####Chief Information Officer: FREDRICK KHAN ([id number])[facility] BAR[place]TR[place] (SBHLAB)[address] Glucose [Mass/Vol] 119 mg/dL High 70-100 [facility] Comment on above: Performed By: #### L AB17, [id number] ####Chief Information Officer: FREDRICK KHAN ([id number])[facility] [place] (SBHLAB)[address] Potassium [Moles/Vol] 3.3 mmol/L Low 3.5-5.1 [facility] Comment on above: Performed By: #### L AB17, [id number] ####Chief Information Officer: FREDRICK KHAN ([id number])[facility] [place] (SBHLAB)[address] Protein [Mass/Vol] 7.6 g/dL Normal 6.3-8.2 [facility] Comment on above: Performed By: #### L AB17, [id number] ####Chief Information Officer: FREDRICK KHAN ([id number])[facility] [place] (SBHLAB)[address] [place] [address] [place] Sodium [Moles/Vol] 134 mmol/L Low 135-145 [facility] Comment on above: Performed By: #### L AB17, [id number] ####Chief Information Officer: FREDRICK KHAN ([id number])[facility] [place] (SBHLAB)[address] [place] [address] [place] Urea nitrogen [Mass/Vol] 10 mg/dL Normal 7-17 [facility] Comment on above: Performed By: #### L AB17, [id number] ####Chief Information Officer: FREDRICK KHAN ([id number])[facility] [place] (SBHLAB)[address] [place] [address] CT ABDOMEN PELVIS W CONTRAST on 07-05-2023 CT ABDOMEN PELVIS W CONTRAST Normal [facility] CT Abdomen and Pelvis W cont rast Nani 07-05-2023 Sigmoid diverticulitis again noted. There appears be a new 2.6 cm fluid collection containing air locules between sigmoid and rectum in the left pelvis as described. Inflammatory stranding has increased. Findings are favored to be due to an abscess. An inflamed, enlarged diverticulum is also possible though felt less likely. Consider short term follow up. Recommend colonoscopy after treatment to exclude any potential underlying lesions. Excessive colonic fecal burden which there is nonspecific though can be seen with constipation if in the appropriate clinical setting. Redemonstrated abdominal aortic aneurysm. Remainder of the exam has not significantly changed since prior exam. CRITICAL TEST RESULT COMMUNICATION: Notification of these findings was made to RYAN NAIK via phone call on 07/05/2023 4:22 PM EDT. Reference: Recommended interval for initial follow-up imaging of ectatic aortas and aneurysms: fernando Foley al. JACR. 2013 Diameter Imaging interval 2.5-2.9 cm 5 y 3.0-3.4 cm 3 y 3.5-3.9 cm 2 y 4.0-4.4 cm 1 y 4.5-4.9 cm 6 mo 5.0-5.5 cm 3-6 mo Report Dictated on Electronically Signed By: Phoenix Redman MD Electronically Signed Date/Time: 07/05/2023 4:25 PM EDT [facility] 1955 [id number] Exam Date/Time: 07/05/2023 14:30 Procedure: CT ABDOMEN PELVIS W CONTRAST Ordering Provider: NAIK HUY Reason For Exam: Abdominal pain, acute, nonlocalized CT ABDOMEN AND PELVIS WITH IV CONTRAST CLINICAL HISTORY: Abdominal pain. History of sigmoid diverticulitis. TECHNIQUE: CT of the abdomen and pelvis was performed with IV contrast using standard technique. Dose reduction was employed with automated exposure control. Contrast: IV: 75 ml of Isovue 370 Oral contrast was also given. COMPARISON: CT abdomen/pelvis 06/27/2023, CT 06/23/2023 RESULT: Liver: No mass. Biliary: No bile duct dilation. Gallbladder is nondilated. Spleen: No mass. Splenomegaly Pancreas: No mass or duct dilation. Adrenals:No mass. Kidneys: No obstructing calculus or hydronephrosis. GI tract: No dilation. Appendix is unremarkable. Colonic diverticulosis. There is again mural thickening and stranding of the sigmoid colon, mildly increased from prior exam. New 2.3 x 1.9 x 2.6 cm fluid collection between loops of sigmoid and rectum in the left pelvis containing small amount air (series 2 image 98). No large volume pneumoperitoneum. Interval excessive colonic fecal burden, nonspecific though can be seen with constipation if in the appropriate clinical setting. Lymph nodes: No abdominal lymphadenopathy. Mesentery/Peritoneum: No ascites or mass. No free air. Retroperitoneum: No mass. Vasculature: The celiac axis and SMA are patent. The portal vein and branches, splenic vein, SMV, and hepatic veins are patent. 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 Bones/Soft Tissues: Degenerative changes. Postoperative changes of L4-L5 bilateral pedicle screw and jermaine fixation. Unchanged 3 mm anterolisthesis of L4 on L5. Lower thorax: Unremarkable. [facility] Phoenix Redman MD - 07/05/2023 Patient Name: [facility]ISC[facility]A : 1955 [id number] Exam Date/Time: 07/05/2023 14:30 Procedure: CT ABDOMEN PELVIS W CONTRAST Ordering Provider: NAIK HUY Reason For Exam: Abdominal pain, acute, nonlocalized CT ABDOMEN AND PELVIS WITH IV CONTRAST CLINICAL HISTORY: Abdominal pain. History of sigmoid diverticulitis. TECHNIQUE: CT of the abdomen and pelvis was performed with IV contrast using standard technique. Dose reduction was employed with automated exposure control. Contrast: IV: 75 ml of Isovue 370 Oral contrast was also given. COMPARISON: CT abdomen/pelvis 06/27/2023, CT 06/23/2023 RESULT: Liver: No mass. Biliary: No bile duct dilation. Gallbladder is nondilated. Spleen: No mass. Splenomegaly Pancreas: No mass or duct dilation. Adrenals:No mass. Kidneys: No obstructing calculus or hydronephrosis. GI tract: No dilation. Appendix is unremarkable. Colonic diverticulosis. There is again mural thickening and stranding of the sigmoid colon, mildly increased from prior exam. New 2.3 x 1.9 x 2.6 cm fluid collection between loops of sigmoid and rectum in the left pelvis containing small amount air (series 2 image 98). No large volume pneumoperitoneum. Interval excessive colonic fecal burden, nonspecific though can be seen with constipation if in the appropriate clinical setting. Lymph nodes: No abdominal lymphadenopathy. Mesentery/Peritoneum: No ascites or mass. No free air. Retroperitoneum: No mass. Vasculature: The celiac axis and SMA are patent. The portal vein and branches, splenic vein, SMV, and hepatic veins are patent. 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 Bones/Soft Tissues: Degenerative changes. Postoperative changes of L4-L5 bilateral pedicle screw and jermaine fixation. Unchanged 3 mm anterolisthesis of L4 on L5. Lower thorax: Unremarkable. IMPRESSION: Sigmoid diverticulitis again noted. There appears be a new 2.6 cm fluid collection containing air locules between sigmoid and rectum in the left pelvis as described. Inflammatory stranding has increased. Findings are favored to be due to an abscess. An inflamed, enlarged diverticulum is also possible though felt less likely. Consider short term follow up. Recommend colonoscopy after treatment to exclude any potential underlying lesions. Excessive colonic fecal burden which there is nonspecific though can be seen with constipation if in the appropriate clinical setting. Redemonstrated abdominal aortic aneurysm. Remainder of the exam has not significantly changed since prior exam. CRITICAL TEST RESULT COMMUNICATION: Notification of these findings was made to RYAN NAIK via phone call on 07/05/2023 4:22 PM EDT. Reference: Recommended interval for initial follow-up imaging of ectatic aortas and aneurysms: Og et al. JACR. 2013 Diameter Imaging interval 2.5-2.9 cm 5 y 3.0-3.4 cm 3 y 3.5-3.9 cm 2 y 4.0-4.4 cm 1 y 4.5-4.9 cm 6 mo 5.0-5.5 cm 3-6 mo Report Dictated on Electronically Signed By: Phoenix Redman MD Electronically Signed Date/Time: 07/05/2023 4:25 PM EDT [facility] Radiology Study observation (narrative) [facility] He alth CT Abdomen and Pelvis W cont rast IVOrdered By: Phoenix Redman on 07-05-2023 [facility] Work Phone: Comprehensive metabolic 1998 panelon 07-05-2023 Albumin [Mass/Vol] 3.7 g/dL 3.5 - 5.0 g/dL [facility] ALP [Catalytic activity/Vol] 82 U/L 38 - 126 U/L [facility] ALT [Catalytic activity/Vol] 14 U/L 0 - 34 U/L [facility] Anion gap [Moles/Vol] 6 mmol/L 3 - 13 mmol/L [facility] AST [Catalytic activity/Vol] 31 U/L 15 - 46 U/L [facility] Bilirubin [Mass/Vol] 0.6 mg/dL 0.2 - 1 .3 mg/dL [facility] Calcium [Mass/Vol] 9.0 mg/dL 8.4 - 10. 4 mg/dL [facility] Chloride [Moles/Vol] 102 mmol/L 98 - 10 7 mmol/L [facility] CO2 [Moles/Vol] 27 mmol/L 22 - 30 mmol/L [facility] Creatinine [Mass/Vol] 0.52 mg/dL 0.52 - 1.04 mg/dL [facility] GFR/1.73 sq M.predicted MDRD (S/P/Bld) [Vol rate/Area] - PINF [facility] Comment on above: Calculation based on the Chronic Kidney Disease Epidemiology Collaboration (CKD-EPI) equation refit without adjustment for race Glucose [Mass/Vol] 119 mg/dL High 70 - 100 mg/dL [facility] Interpretation and review of laboratory results Abnormal [facility] Potassium [Moles/Vol] 3.3 mmol/L Low 3.5 - 5.1 mmol/L [facility] Protein [Mass/Vol] 7.6 g/dL 6.3 - 8.2 g/dL [facility] Sodium [Moles/Vol] 134 mmol/L Low 135 - 145 mmol/L [facility] Urea nitrogen [Mass/Vol] 10 mg/dL 7 - 17 mg/dL [facility] IDNon 07-05-2023 IDN Normal [facility] Laboratory - Chemistry and C hemistry - challengeon 07-05-2023 Magnesium [Mass/Vol] 2.0 mg/dL 1.6 - 2 .3 mg/dL [facility] MAGNESIUMon 07-05-2023 Magnesium [Mass/Vol] 2.0 mg/dL Normal 1.6-2.3 [facility] Comment on above: Performed By: #### L [id number], [id number] ####Chief Information Officer: FREDRICK KHAN ([id number])[facility] CENTERMaik KHOURY (SBHLAB)[address] Magnesium [Mass/Vol]on 07-05 Interpretation and review of laboratory results Normal [facility] Progress Noteon 07-05-2023 Progress Note Normal [facility] CBC (HEMOGRAM)on 07-04-2023 Erythrocyte distribution width (RBC) [Ratio] 15.9 % High 11.5-14.5 [facility] Comment on above: Performed By: #### L [id number] ####Chief Information Officer: FREDRICK KHAN ([id number])[facility] CENTERMaik BARBJUSTEN (SBHLAB)[address] [place] [address] ERYTHROCYTE MEAN CORPUSCULAR HEMOGLOBIN CONCENTRATION (G/DL) BY AUTOMATED 32.8 % Normal 32.0-36.0 [facility] Comment on above: Performed By: #### L [id number] ####Chief Information Officer: FREDRICK KHAN ([id number])[facility] CENTERMaik KHOURY (SBHLAB)[address] Hematocrit (Bld) [Volume fraction] 34.4 % Low 35.0-47.0 [facility] Comment on above: Performed By: #### L [id number] ####Chief Information Officer: FREDRICK KHAN ([id number])[facility] CENTERMaik BARBJUSTEN (SBHLAB)[address] [place] [address] Hemoglobin (Bld) [Mass/Vol] 11.3 g/dL Low 11.7-16.0 [facility] Comment on above: Performed By: #### L [id number] ####Chief Information Officer: FREDRICK KHAN ([id number])NAT BATISTADinesh (SBHLAB)[address] MCH (RBC) [Entitic mass] 27.7 pg Normal 26.0-34.0 [facility] Comment on above: Performed By: #### L [id number] ####Chief Information Officer: FREDRICK BILL ([id number])[facility] CENTERMaik HINSONPRESBYTERIAN SANTA FE MEDICAL CENTERN (SBHLAB)[address] MCV (RBC) [Entitic vol] 84.5 fL Normal 80.0-98.0 S [facility] Comment on above: Performed By: #### L [id number] ####Chief Information Officer: FREDRICK BILL ([id number])[facility] CENTERMaik [facility]SONHAV[facility] (SBHLAB)[address] Platelet mean volume (Bld) [Entitic vol] 7.2 fL Low 7.4-12.4 [facility] Comment on above: Performed By: #### L [id number] ####Chief Information Officer: FREDRICK RAMOSSATINDER ([id number])[facility] CENTERMaik SMOAKS (SBHLAB)[address] PLATELETS (10*3/UL) IN BLOOD AUTOMATED COUNT 444 10*3/uL High 140-440 [facility] Comment on above: Performed By: #### L [id number] ####Chief Information Officer: FREDRICK KHAN ([id number])[facility] CENTERMaik SMOAKS (SBHLAB)[address] RBC (Bld) [#/Vol] 4.07 10*6/uL Normal 3.8-5.20 [facility] Comment on above: Performed By: #### L [id number] ####Chief Information Officer: FREDRICK RAMOSSATINDER ([id number])[facility] CENTERMaik [facility]ERN (SBHLAB)[address] WBC (Bld) [#/Vol] 11.5 10*3/uL High 3.6-10.7 [facility] Comment on above: Performed By: #### L [id number] ####Chief Information Officer: FREDRICK KHAN ([id number])[facility] MIAMISBURGDinesh (SBHLAB)[address] CBC panel Auto (Bld)on 07-04 Erythrocyte distribution width (RBC) [Ratio] 15.9 % High 11.5 - 14.5 % [facility] Hematocrit (Bld) [Volume fraction] 34.4 % Low 35.0 - 47.0 % [facility] Hemoglobin (Bld) [Mass/Vol] 11.3 g/dL Low 11.7 - 16.0 g/dL [facility] Interpretation and review of laboratory results Abnormal [facility] MCH (RBC) [Entitic mass] 27.7 pg 26.0 - 34.0 pg [facility] MCHC (RBC) [Mass/Vol] 32.8 % 32.0 - 36.0 % [facility] MCV (RBC) [Entitic vol] 84.5 fL 80.0 - 98.0 fL [facility] Platelet mean volume (Bld) [Entitic vol] 7.2 fL Low 7.4 - 12.4 fL [facility] Platelets (Bld) [#/Vol] 444 10*3/uL High 140 - 440 10*3/uL [facility] RBC (Bld) [#/Vol] 4.07 10*6/uL 3.8 - 5.20 10*6/uL [facility] WBC (Bld) [#/Vol] 11.5 10*3/uL High 3.6 - 10.7 10*3/uL [facility] COMPREHENSIVE METABOLIC PANE Miles 07-04-2023 Albumin [Mass/Vol] 3.4 g/dL Low 3.5-5.0 [facility] Comment on above: Performed By: #### L AB17, [id number] ####Chief Information Officer: FREDRICK KHAN ([id number])[facility] SRAVANJUSTEN (SBHLAB)[address] ALP [Catalytic activity/Vol] 60 U/L Normal 38-126 [facility] Comment on above: Performed By: #### L AB17, [id number] ####Chief Information Officer: FREDRICK KHAN ([id number])[facility] (SBHLAB)[address] ALT [Catalytic activity/Vol] 10 U/L Normal 0-34 [facility] Comment on above: Performed By: #### L AB17, [id number] ####Chief Information Officer: FREDRICK KHAN ([id number])[facility] CENTERA [place] (SBHLAB)[address] Anion gap [Moles/Vol] 3 mmol/L Normal 3-13 [facility] Comment on above: Performed By: #### L AB17, [id number] ####Chief Information Officer: FREDRICK KHAN ([id number])[facility]ENTERA [place] (SBHLAB)[address] AST [Catalytic activity/Vol] 21 U/L Normal 15-46 [facility] Comment on above: Performed By: #### L AB17, [id number] ####Chief Information Officer: FREDRICK KHAN ([id number])[facility]ENTERA [place] (SBHLAB)[address] Bilirubin [Mass/Vol] 0.5 mg/dL Normal 0.2-1.3 [facility] Comment on above: Performed By: #### L AB17, [id number] ####Chief Information Officer: FREDRICK KHAN ([id number])[facility]ENTERA [place] (SBHLAB)[address] Calcium [Mass/Vol] 9.2 mg/dL Normal 8.4-10.4 [facility] Comment on above: Performed By: #### L AB17, [id number] ####Chief Information Officer: FREDRICK KHAN ([id number])[facility]ENTERA [place] (SBHLAB)[address] [place] [address] [place] Chloride [Moles/Vol] 105 mmol/L Normal 98-107 [facility] Comment on above: Performed By: #### L AB17, [id number] ####Chief Information Officer: FREDRICK KHAN ([id number])[facility]ENTERA [place] (SBHLAB)[address] CO2 [Moles/Vol] 27 mmol/L Normal 22-30 [facility] Comment on above: Performed By: #### L AB17, [id number] ####Chief Information Officer: FREDRICK KHAN ([id number])[place] (SBHLAB)[address] Creatinine [Mass/Vol] 0.63 mg/dL Normal 0.52-1.04 [facility] Comment on above: Performed By: #### L AB17, [id number] ####Chief Information Officer: FREDRICK KHAN ([id number])[facility] CENTERMaik BATISTADinesh (SBHLAB)[address] GLOMERULAR FILTRATION RATE ML/MIN/1.73 SQ M.PREDICTED >90.0 Normal >60.0 [facility] Comment on above: Result Comment: Calc ulation based on the Chronic Kidney Disease Epidemiology Collaboration (CKD-EPI) equation refit without adjustment for race Performed By: #### L AB17, [id number] ####Chief Information Officer: FREDRICK KHAN ([id number])[facility] CENTERMaik [place]IST[place] (SBHLAB)[address] Glucose [Mass/Vol] 99 mg/dL Normal 70-100 [facility] Comment on above: Performed By: #### L AB17, [id number] ####Chief Information Officer: FREDRICK KHAN ([id number])[facility] CENTERMaik [place] (SBHLAB)[address] [place] [address] [place] Potassium [Moles/Vol] 3.5 mmol/L Normal 3.5-5.1 [facility] Comment on above: Performed By: #### L AB17, [id number] ####Chief Information Officer: FREDRICK KHAN ([id number])[facility] CENTERMaik [place] (SBHLAB)[address] Protein [Mass/Vol] 6.7 g/dL Normal 6.3-8.2 [facility] Comment on above: Performed By: #### L AB17, [id number] ####Chief Information Officer: FREDRICK KHAN ([id number])[facility] CENTERMaik HINSONPRESBYTERIAN SANTA FE MEDICAL CENTERN (SBHLAB)[address] Sodium [Moles/Vol] 134 mmol/L Low 135-145 [facility] Comment on above: Performed By: #### L AB17, [id number] ####Chief Information Officer: FREDRICK KHAN ([id number])[facility] (SBHLAB)[address] Urea nitrogen [Mass/Vol] 10 mg/dL Normal - [facility] Comment on above: Performed By: #### L AB17, [id number] ####Chief Information Officer: FREDRICK KHAN ([id number])[facility] SRAVANHAVASU [facility] (SBHLAB)[address] Comprehensive metabolic 1998 panelon 07-04-2023 Albumin [Mass/Vol] 3.4 g/dL Low 3.5 - 5.0 g/dL [facility] ALP [Catalytic activity/Vol] 60 U/L 38 - 126 U/L [facility] ALT [Catalytic activity/Vol] 10 U/L 0 - 34 U/L [facility] Anion gap [Moles/Vol] 3 mmol/L 3 - 13 mmol/L [facility] AST [Catalytic activity/Vol] 21 U/L 15 - 46 U/L [facility] Bilirubin [Mass/Vol] 0.5 mg/dL 0.2 - 1 .3 mg/dL [facility] Calcium [Mass/Vol] 9.2 mg/dL 8.4 - 10. 4 mg/dL [facility] Chloride [Moles/Vol] 105 mmol/L 98 - 10 7 mmol/L [facility] CO2 [Moles/Vol] 27 mmol/L 22 - 30 mmol/L [facility] Creatinine [Mass/Vol] 0.63 mg/dL 0.52 - 1.04 mg/dL [facility] GFR/1.73 sq M.predicted MDRD (S/P/Bld) [Vol rate/Area] - PINF [facility] Comment on above: Calculation based on the Chronic Kidney Disease Epidemiology Collaboration (CKD-EPI) equation refit without adjustment for race Glucose [Mass/Vol] 99 mg/dL 70 - 100 mg/dL [facility] Interpretation and review of laboratory results Abnormal [facility] Potassium [Moles/Vol] 3.5 mmol/L 3.5 - 5.1 mmol/L [facility] Protein [Mass/Vol] 6.7 g/dL 6.3 - 8.2 g/dL [facility] Sodium [Moles/Vol] 134 mmol/L Low 135 - 145 mmol/L [facility] Urea nitrogen [Mass/Vol] 10 mg/dL 7 - 17 mg/dL [facility] IDNon 07-04-2023 IDN Normal [facility] Laboratory - Chemistry and C hemistry - challengeon 07-04-2023 Magnesium [Mass/Vol] 2.0 mg/dL 1.6 - 2 .3 mg/dL [facility] MAGNESIUMon 07-04-2023 Magnesium [Mass/Vol] 2.0 mg/dL Normal 1.6-2.3 [facility] Comment on above: Performed By: #### L AB17, [id number] ####Chief Information Officer: FREDRICK KHAN ([id number])[facility] HOSPITALJUSTEN (SBCOX BRANSON)[address] [place] [address] Magnesium [Mass/Vol]on 07-04 Interpretation and review of laboratory results Normal [facility] Progress Noteon 07-04-2023 Progress Note Normal [facility] CARECOORDon 07-03-2023 CARECOORD Normal [facility] Progress Noteon 07-03-2023 Progress Note Normal [facility] Progress Note Normal [facility] Progress Note Normal [facility] Progress Note Normal [facility] Progress Noteon 07-02-2023 Progress Note Normal [facility] Progress Note Normal [facility] IDNon 07-01-2023 IDN Normal [facility] Progress Noteon 07-01-2023 Progress Note Normal [facility] Progress Note [facility] CARECOORDon 06-30-2023 CARECOORD Normal [facility] CBC W Auto Differential pane l (Bld)on 06-30-2023 Basophils (Bld) [#/Vol] 0.1 10*3/uL 0.0 - 0.2 10*3/uL [facility] Basophils/100 WBC (Bld) 0.8 % 0.0 - 2.0 % [facility] Eosinophils (Bld) [#/Vol] 0.2 10*3/uL 0.0 - 0.5 10*3/uL [facility] Eosinophils/100 WBC (Bld) 3.1 % 1.0 - 6.0 % [facility] Erythrocyte distribution width (RBC) [Ratio] 15.7 % High 11.5 - 14.5 % [facility] Hematocrit (Bld) [Volume fraction] 31.6 % Low 35.0 - 47.0 % [facility] Hemoglobin (Bld) [Mass/Vol] 10.4 g/dL Low 11.7 - 16.0 g/dL [facility] Interpretation and review of laboratory results Abnormal [facility] Lymphocytes (Bld) [#/Vol] 1.5 10*3/uL 1.0 - 4.3 10*3/uL [facility] Lymphocytes/100 WBC (Bld) 18.7 % Low 20.0 - 40.0 % [facility] MCH (RBC) [Entitic mass] 28.3 pg 26.0 - 34.0 pg [facility] MCHC (RBC) [Mass/Vol] 32.8 % 32.0 - 36.0 % [facility] MCV (RBC) [Entitic vol] 86.2 fL 80.0 - 98.0 fL [facility] Monocytes (Bld) [#/Vol] 1.3 10*3/uL High 0.0 - 0.8 10*3/uL [facility] Monocytes/100 WBC (Bld) 16.4 % High 2.0 - 10.0 % [facility] Neutrophils (Bld) [#/Vol] 4.8 10*3/uL 1.8 - 7.0 10*3/uL [facility] Neutrophils/100 WBC (Bld) 61.0 % 40.0 - 80.0 % [facility] Nucleated RBC/100 WBC (Bld) [Ratio] 0.0 % [facility] Platelet mean volume (Bld) [Entitic vol] 7.6 fL 7.4 - 12.4 fL [facility] Platelets (Bld) [#/Vol] 433 10*3/uL 140 - 440 10*3/uL [facility] RBC (Bld) [#/Vol] 3.67 10*6/uL Low 3.8 - 5.20 10*6/uL [facility] WBC (Bld) [#/Vol] 7.9 10*3/uL 3.6 - 10.7 10*3/uL [facility] CBC WITH AUTO DIFFERENTIALon 06-30-2023 Basophils (Bld) [#/Vol] 0.1 10*3/uL Normal 0.0-0.2 [facility] Comment on above: Performed By: #### L [id number] ####Chief Information Officer: FREDRICK KHAN ([id number])[facility]ENTERA [facility] CARE CENTERJUSTEN (SBAB)[address] [place] [address] Basophils/100 WBC (Bld) 0.8 % Normal 0.0-2.0 [facility] Comment on above: Performed By: #### L [id number] ####Chief Information Officer: FREDRICK KHAN ([id number])[facility]ENTERA [facility] CENTERTRINYN (SBHLAB)[address] [place] [address] Eosinophils (Bld) [#/Vol] 0.2 10*3/uL Normal 0.0-0.5 [facility] Comment on above: Performed By: #### L [id number] ####Chief Information Officer: FREDRICK KHAN ([id number])[facility]ENTERA BARBJUSTEN (SBHLAB)[address] [place] [address] Eosinophils/100 WBC (Bld) 3.1 % Normal 1.0-6.0 [facility] Comment on above: Performed By: #### L [id number] ####Chief Information Officer: FREDRICK KHAN ([id number])[facility]ENTERA [place] (SBHLAB)[address] [place] [address] Erythrocyte distribution width (RBC) [Ratio] 15.7 % High 11.5-14.5 [facility] Comment on above: Performed By: #### L [id number] ####Chief Information Officer: FREDRICK KHAN ([id number])[facility]ENTERA [place] (SBHLAB)[address] [place] [address] ERYTHROCYTE MEAN CORPUSCULAR HEMOGLOBIN CONCENTRATION (G/DL) BY AUTOMATED 32.8 % Normal 32.0-36.0 [facility] Comment on above: Performed By: #### L [id number] ####Chief Information Officer: FREDRICK KHAN ([id number])[facility]ENTERA [place] (SBHLAB)[address] Hematocrit (Bld) [Volume fraction] 31.6 % Low 35.0-47.0 [facility] Comment on above: Performed By: #### L [id number] ####Chief Information Officer: FREDRICK KHAN ([id number])[facility]ENTERA BARBPRESBYTERIAN SANTA FE MEDICAL CENTERN (HLAB)[address] [place] [address] Hemoglobin (Bld) [Mass/Vol] 10.4 g/dL Low 11.7-16.0 [facility] Comment on above: Performed By: #### L [id number] ####Chief Information Officer: FREDRICK KHAN ([id number])[facility] CENTERMaik BARBPRESBYTERIAN SANTA FE MEDICAL CENTERN (SBHLAB)[address] [place] [address] Lymphocytes (Bld) [#/Vol] 1.5 10*3/uL Normal 1.0-4.3 [facility] Comment on above: Performed By: #### L [id number] ####Chief Information Officer: FREDRICK KHAN ([id number])[facility] CENTERMaik HINSONPRESBYTERIAN SANTA FE MEDICAL CENTERN (SBHLAB)[address] [place] [address] Lymphocytes/100 WBC (Bld) 18.7 % Low 20.0-40.0 [facility] Comment on above: Performed By: #### L [id number] ####Chief Information Officer: FREDRICK KHAN ([id number])[facility]ENTERA BARBPRESBYTERIAN SANTA FE MEDICAL CENTERN (SBHLAB)[address] MCH (RBC) [Entitic mass] 28.3 pg Normal 26.0-34.0 [facility] Comment on above: Performed By: #### L [id number] ####Chief Information Officer: FREDRICK KHAN ([id number])[facility] [place] (SBHLAB)[address] MCV (RBC) [Entitic vol] 86.2 fL Normal 80.0-98.0 [facility] Comment on above: Performed By: #### L [id number] ####Chief Information Officer: FREDRICK KHAN ([id number])[facility] [place] (SBHLAB)[address] [place] [address] [place] Monocytes (Bld) [#/Vol] 1.3 10*3/uL High 0.0-0.8 [facility] Comment on above: Performed By: #### L [id number] ####Chief Information Officer: FREDRICK KHAN ([id number])[facility] [place] (SBHLAB)[address] Monocytes/100 WBC (Bld) 16.4 % High 2.0-10.0 [facility] Comment on above: Performed By: #### L [id number] ####Chief Information Officer: FREDRICK KHAN ([id number])[facility] [place] (SBHLAB)[address] [place] [address] [place] Neutrophils (Bld) [#/Vol] 4.8 10*3/uL Normal 1.8-7.0 [facility] Comment on above: Performed By: #### L [id number] ####Chief Information Officer: FREDRICK KHAN ([id number])[facility] [place] (SBHLAB)[address] [place] [address] [place] Neutrophils/100 WBC (Bld) 61.0 % Normal 40.0-80.0 [facility] Comment on above: Performed By: #### L [id number] ####Chief Information Officer: FREDRICK KHAN ([id number])[facility] (SBHLAB)[address] [place] [address] [place] NRBC (PER 100 WBCS) BY AUTOMATED COUNT 0.0 /100 WBCs Normal 0.0-2.0 [facility] Comment on above: Performed By: #### L [id number] ####Chief Information Officer: FREDRICK KHAN ([id number])[facility]ENTERA BARBTRINYN (SBHLAB)[address] Platelet mean volume (Bld) [Entitic vol] 7.6 fL Normal 7.4-12.4 [facility] Comment on above: Performed By: #### L [id number] ####Chief Information Officer: FREDRICK KHAN ([id number])[facility]ENTERA [place] (SBHLAB)[address] PLATELETS (10*3/UL) IN BLOOD AUTOMATED COUNT 433 10*3/uL Normal 140-440 [facility] Comment on above: Performed By: #### L [id number] ####Chief Information Officer: FREDRICK KHAN ([id number])[facility]ENTERA [place]ERT[place] (SBHLAB)[address] [place] [address] RBC (Bld) [#/Vol] 3.67 10*6/uL Low 3.8-5.20 [facility] Comment on above: Performed By: #### L [id number] ####Chief Information Officer: FREDRICK KHAN ([id number])[facility]ENTERA BARBPRESBYTERIAN SANTA FE MEDICAL CENTERN (SBHLAB)[address] WBC (Bld) [#/Vol] 7.9 10*3/uL Normal 3.6-10.7 [facility] Comment on above: Performed By: #### L [id number] ####Chief Information Officer: FREDRICK KHAN ([id number])[facility]ENTERA [place] (SBHLAB)[address] COMPREHENSIVE METABOLIC PANE Miles 06-30-2023 Albumin [Mass/Vol] 3.3 g/dL Low 3.5-5.0 [facility] Comment on above: Performed By: #### L [id number] ####Chief Information Officer: FREDRICK RAMOSSATINDER ([id number])[facility]ENTERA SRAVANPRESBYTERIAN SANTA FE MEDICAL CENTERN (SBHLAB)[address] ALP [Catalytic activity/Vol] 51 U/L Normal 38-126 [facility] Comment on above: Performed By: #### L [id number] ####Chief Information Officer: FREDRICK KHAN ([id number])[facility]NN[facility] (SBHLAB)[address] ALT [Catalytic activity/Vol] 14 U/L Normal 0-34 [facility] Comment on above: Performed By: #### L [id number] ####Chief Information Officer: FREDRICK KHAN ([id number])[facility]A [place] (SBHLAB)[address] Anion gap [Moles/Vol] 1 mmol/L Low 3-13 [facility] Comment on above: Performed By: #### L [id number] ####Chief Information Officer: FREDRICK KHAN ([id number])[facility]ENTERA LYNNEN (SBHLAB)[address] AST [Catalytic activity/Vol] 17 U/L Normal 15-46 [facility] Comment on above: Performed By: #### L [id number] ####Chief Information Officer: FREDRICK KHAN ([id number])[facility]A [place] (SBHLAB)[address] Bilirubin [Mass/Vol] 0.2 mg/dL Normal 0.2-1.3 [facility] Comment on above: Performed By: #### L [id number] ####Chief Information Officer: FREDRICK KHAN ([id number])[facility] [place] (SBHLAB)[address] Calcium [Mass/Vol] 8.8 mg/dL Normal 8.4-10.4 [facility] Comment on above: Performed By: #### L [id number] ####Chief Information Officer: FREDRICK KHAN ([id number])[facility] [place] (SBHLAB)[address] Chloride [Moles/Vol] 107 mmol/L Normal 98-107 [facility] Comment on above: Performed By: #### L [id number] ####Chief Information Officer: FREDRICK KHAN ([id number])[place] (SBHLAB)[address] CO2 [Moles/Vol] 29 mmol/L Normal 22-30 [facility] Comment on above: Performed By: #### L [id number] ####Chief Information Officer: FREDRICK KHAN ([id number])[facility] [place] (SBHLAB)[address] Creatinine [Mass/Vol] 0.52 mg/dL Normal 0.52-1.04 [facility] Comment on above: Performed By: #### L AB17 ####Chief Information Officer: FREDRICK KHAN ([id number])[facility] CENTERMaik BATISTAN (SBHLAB)[address] GLOMERULAR FILTRATION RATE ML/MIN/1.73 SQ M.PREDICTED >90.0 Normal >60.0 [facility] Comment on above: Result Comment: Calc ulation based on the Chronic Kidney Disease Epidemiology Collaboration (CKD-EPI) equation refit without adjustment for race Performed By: #### L [id number] ####Chief Information Officer: FREDRICK KHAN ([phone])[facility] CENTERMaik BATISTAN (SBHLAB)[address] Glucose [Mass/Vol] 80 mg/dL Normal 70-100 [facility] Comment on above: Performed By: #### L [id number] ####Chief Information Officer: FREDRICK KHAN ([id number])[facility] CENTERMaik HINSONPRESBYTERIAN SANTA FE MEDICAL CENTERN (SBHLAB)[address] Potassium [Moles/Vol] 3.8 mmol/L Normal 3.5-5.1 [facility] Comment on above: Performed By: #### L [id number] ####Chief Information Officer: FREDRICK KHAN ([id number])[facility] CENTERMaik HINSONPRESBYTERIAN SANTA FE MEDICAL CENTERN (SBHLAB)[address] Protein [Mass/Vol] 6.4 g/dL Normal 6.3-8.2 [facility] Comment on above: Performed By: #### L [id number] ####Chief Information Officer: FREDRICK KHAN ([id number])[facility] CENTERMaik KHOURY (SBHLAB)[address] Sodium [Moles/Vol] 137 mmol/L Normal 135-145 [facility] Comment on above: Performed By: #### L [id number] ####Chief Information Officer: FREDRICK RAMOSSATINDER ([id number])[facility] SRAVANPRESBYTERIAN SANTA FE MEDICAL CENTERDinesh (SBHLAB)[address] Urea nitrogen [Mass/Vol] 4 mg/dL Low 7-17 [facility] Comment on above: Performed By: #### L [id number] ####Chief Information Officer: FREDIRCK BILL ([id number])[facility] CENTERMaik KHOURY (SBHLAB)[address] Comprehensive metabolic 1998 panelon 06-30-2023 Albumin [Mass/Vol] 3.3 g/dL Low 3.5 - 5.0 g/dL [facility] ALP [Catalytic activity/Vol] 51 U/L 38 - 126 U/L [facility] ALT [Catalytic activity/Vol] 14 U/L 0 - 34 U/L [facility] Anion gap [Moles/Vol] 1 mmol/L Low 3 - 13 mmol/L [facility] AST [Catalytic activity/Vol] 17 U/L 15 - 46 U/L [facility] Bilirubin [Mass/Vol] 0.2 mg/dL 0.2 - 1 .3 mg/dL [facility] Calcium [Mass/Vol] 8.8 mg/dL 8.4 - 10. 4 mg/dL [facility] Chloride [Moles/Vol] 107 mmol/L 98 - 10 7 mmol/L [facility] CO2 [Moles/Vol] 29 mmol/L 22 - 30 mmol/L [facility] Creatinine [Mass/Vol] 0.52 mg/dL 0.52 - 1.04 mg/dL [facility] GFR/1.73 sq M.predicted MDRD (S/P/Bld) [Vol rate/Area] - PINF [facility] Comment on above: Calculation based on the Chronic Kidney Disease Epidemiology Collaboration (CKD-EPI) equation refit without adjustment for race Glucose [Mass/Vol] 80 mg/dL 70 - 100 mg/dL [facility] Interpretation and review of laboratory results Abnormal [facility] Potassium [Moles/Vol] 3.8 mmol/L 3.5 - 5.1 mmol/L [facility] Protein [Mass/Vol] 6.4 g/dL 6.3 - 8.2 g/dL [facility] Sodium [Moles/Vol] 137 mmol/L 135 - 145 mmol/L [facility] Urea nitrogen [Mass/Vol] 4 mg/dL Low 7 - 17 mg/dL [facility] Consulton 06-30-2023 Consult Normal [facility] Progress Noteon 06-30-2023 Progress Note Normal [facility] CARECOORDon 06-29-2023 CARECOORD Normal [facility] CBC W Auto Differential pane l (Bld)on 06-29-2023 Basophils (Bld) [#/Vol] 0.1 10*3/uL 0.0 - 0.2 10*3/uL [facility] Basophils/100 WBC (Bld) 0.8 % 0.0 - 2.0 % [facility] Eosinophils (Bld) [#/Vol] 0.1 10*3/uL 0.0 - 0.5 10*3/uL [facility] Eosinophils/100 WBC (Bld) 2.0 % 1.0 - 6.0 % [facility] Erythrocyte distribution width (RBC) [Ratio] 15.8 % High 11.5 - 14.5 % [facility] Hematocrit (Bld) [Volume fraction] 27.9 % Low 35.0 - 47.0 % [facility] Hemoglobin (Bld) [Mass/Vol] 9.2 g/dL Low 11.7 - 16.0 g/dL [facility] Interpretation and review of laboratory results Abnormal [facility] Lymphocytes (Bld) [#/Vol] 1.0 10*3/uL 1.0 - 4.3 10*3/uL [facility] Lymphocytes/100 WBC (Bld) 14.9 % Low 20.0 - 40.0 % [facility] MCH (RBC) [Entitic mass] 28.3 pg 26.0 - 34.0 pg [facility] MCHC (RBC) [Mass/Vol] 32.9 % 32.0 - 36.0 % [facility] MCV (RBC) [Entitic vol] 86.0 fL 80.0 - 98.0 fL [facility] Monocytes (Bld) [#/Vol] 1.1 10*3/uL High 0.0 - 0.8 10*3/uL [facility] Monocytes/100 WBC (Bld) 16.8 % High 2.0 - 10.0 % [facility] Neutrophils (Bld) [#/Vol] 4.2 10*3/uL 1.8 - 7.0 10*3/uL [facility] Neutrophils/100 WBC (Bld) 65.5 % 40.0 - 80.0 % [facility] Nucleated RBC/100 WBC (Bld) [Ratio] 0.0 % [facility] Platelet mean volume (Bld) [Entitic vol] 7.8 fL 7.4 - 12.4 fL [facility] Platelets (Bld) [#/Vol] 330 10*3/uL 140 - 440 10*3/uL [facility] RBC (Bld) [#/Vol] 3.25 10*6/uL Low 3.8 - 5.20 10*6/uL [facility] WBC (Bld) [#/Vol] 6.5 10*3/uL 3.6 - 10.7 10*3/uL [facility] CBC WITH AUTO DIFFERENTIALon 06-29-2023 Basophils (Bld) [#/Vol] 0.1 10*3/uL Normal 0.0-0.2 [facility] Comment on above: Performed By: #### L [id number] ####Chief Information Officer: FREDRICK KHAN ([phone])[facility] MIAMISBURGDinesh (SBAB)[address] [place] [address] Basophils/100 WBC (Bld) 0.8 % Normal 0.0-2.0 [facility] Comment on above: Performed By: #### L [id number] ####Chief Information Officer: FREDRICK KHAN ([id number])[facility] (SBAB)[address] Eosinophils (Bld) [#/Vol] 0.1 10*3/uL Normal 0.0-0.5 [facility] Comment on above: Performed By: #### L [id number] ####Chief Information Officer: FREDRICK [id number])[facility] (SBHLAB)[address] Eosinophils/100 WBC (Bld) 2.0 % Normal 1.0-6.0 [facility] Comment on above: Performed By: #### L [id number] ####Chief Information Officer: FREDRICK MONROYCAROLINA ([id number])[facility]ENTERA [place] (SBHLAB)[address] Erythrocyte distribution width (RBC) [Ratio] 15.8 % High 11.5-14.5 [facility] Comment on above: Performed By: #### L [id number] ####Chief Information Officer: FREDRICK MONROYCAROLINA ([id number])[facility]ENTERA [place] (SBHLAB)[address] ERYTHROCYTE MEAN CORPUSCULAR HEMOGLOBIN CONCENTRATION (G/DL) BY AUTOMATED 32.9 % Normal 32.0-36.0 [facility] Comment on above: Performed By: #### L [id number] ####Chief Information Officer: FREDRICK BILL ([id number])[facility]ENTERA [place] (SBHLAB)[address] Hematocrit (Bld) [Volume fraction] 27.9 % Low 35.0-47.0 [facility] Comment on above: Performed By: #### L [id number] ####Chief Information Officer: FREDRICK RAMOSSATINDER ([id number])[facility]ENTERA [place] (SBHLAB)[address] Hemoglobin (Bld) [Mass/Vol] 9.2 g/dL Low 11.7-16.0 [facility] Comment on above: Performed By: #### L [id number] ####Chief Information Officer: FREDRICK RAMOSSATINDER ([id number])[facility]ENTERA [place] (SBHLAB)[address] Lymphocytes (Bld) [#/Vol] 1.0 10*3/uL Normal 1.0-4.3 [facility] Comment on above: Performed By: #### L [id number] ####Chief Information Officer: FREDRICKYORDAN KHAN ([id number])[facility] [place] (SBHLAB)[address] Lymphocytes/100 WBC (Bld) 14.9 % Low 20.0-40.0 [facility] Comment on above: Performed By: #### L [id number] ####Chief Information Officer: FREDRICK KHAN ([id number])[facility] CENTERMaik HINSONPRESBYTERIAN SANTA FE MEDICAL CENTERN (SBHLAB)[address] MCH (RBC) [Entitic mass] 28.3 pg Normal 26.0-34.0 [facility] Comment on above: Performed By: #### L [id number] ####Chief Information Officer: FREDRICK KHAN ([id number])[facility] CENTERMaik HINSONPRESBYTERIAN SANTA FE MEDICAL CENTERN (SBHLAB)[address] MCV (RBC) [Entitic vol] 86.0 fL Normal 80.0-98.0 [facility] Comment on above: Performed By: #### L [id number] ####Chief Information Officer: FREDRICK BILL ([id number])[facility] CENTERMaik BATISTAN (SBHLAB)[address] Monocytes (Bld) [#/Vol] 1.1 10*3/uL High 0.0-0.8 [facility] Comment on above: Performed By: #### L [id number] ####Chief Information Officer: FREDRICK BILL ([id number])[facility] CENTERMaik BARBPRESBYTERIAN SANTA FE MEDICAL CENTERN (SBHLAB)[address] Monocytes/100 WBC (Bld) 16.8 % High 2.0-10.0 [facility] Comment on above: Performed By: #### L [id number] ####Chief Information Officer: FREDRICK BILL ([id number])[facility]ENTERA [place] (SBHLAB)[address] Neutrophils (Bld) [#/Vol] 4.2 10*3/uL Normal 1.8-7.0 [facility] Comment on above: Performed By: #### L [id number] ####Chief Information Officer: FREDRICK MONROYNehalSATINDER ([id number])[facility] (SBHLAB)[address] [place] [address] [place] Neutrophils/100 WBC (Bld) 65.5 % Normal 40.0-80.0 [facility] Comment on above: Performed By: #### L [id number] ####Chief Information Officer: FREDRICK RAMOSSATINDER ([id number])[facility]ENTERA [place] (SBHLAB)155 [place] [address] [place] NRBC (PER 100 WBCS) BY AUTOMATED COUNT 0.0 /100 WBCs Normal 0.0-2.0 [facility] Comment on above: Performed By: #### L [id number] ####Chief Information Officer: FREDRICK MONROYCAROLINA ([id number])[facility]ENTERA [place] (SBHLAB)[address] Platelet mean volume (Bld) [Entitic vol] 7.8 fL Normal 7.4-12.4 [facility] Comment on above: Performed By: #### L [id number] ####Chief Information Officer: FREDRICK RAMOSSATINDER ([id number])[facility]ENTERA [place] (SBHLAB)[address] [place] [address] [place] PLATELETS (10*3/UL) IN BLOOD AUTOMATED COUNT 330 10*3/uL Normal 140-440 [facility] Comment on above: Performed By: #### L [id number] ####Chief Information Officer: FREDRICK RAMOSSATINDER ([id number])[facility]ENTERA [place] (SBHLAB)[address] [place] [address] [place] RBC (Bld) [#/Vol] 3.25 10*6/uL Low 3.8-5.20 [facility] Comment on above: Performed By: #### L [id number] ####Chief Information Officer: FREDRICK RAMOSSATINDER ([id number])[facility] (SBHLAB)[address] [place] [address] [place] WBC (Bld) [#/Vol] 6.5 10*3/uL Normal 3.6-10.7 [facility] Comment on above: Performed By: #### L [id number] ####Chief Information Officer: FREDRICK KHAN ([id number])[facility]ENTERA [place] (SBHLAB)[address] COMPREHENSIVE METABOLIC PANE Miles 06-29-2023 Albumin [Mass/Vol] 2.6 g/dL Low 3.5-5.0 [facility] Comment on above: Performed By: #### L AB17, [id number] ####Chief Information Officer: FREDRICK KHAN ([id number])[facility]ENTERA [place] (SBHLAB)[address] ALP [Catalytic activity/Vol] 31 U/L Low 38-126 [facility] Comment on above: Performed By: #### L AB17, [id number] ####Chief Information Officer: FREDRICK KHAN ([id number])[facility]ENTERA [place] (SBHLAB)[address] ALT [Catalytic activity/Vol] 12 U/L Normal 0-34 [facility] Comment on above: Performed By: #### L AB17, [id number] ####Chief Information Officer: FREDRICK KHAN ([id number])[facility]ENTERA [place] (SBHLAB)[address] Anion gap [Moles/Vol] 1 mmol/L Low 3-13 [facility] Comment on above: Performed By: #### L AB17, [id number] ####Chief Information Officer: FREDRICK KHAN ([id number])[facility]A [place] (SBHLAB)[address] AST [Catalytic activity/Vol] 24 U/L Normal 15-46 [facility] Comment on above: Performed By: #### L AB17, [id number] ####Chief Information Officer: FREDRICK KHAN ([id number])[facility]ENTERA [place] (SBHLAB)[address] Bilirubin [Mass/Vol] 0.4 mg/dL Normal 0.2-1.3 [facility] Comment on above: Performed By: #### L AB17, [id number] ####Chief Information Officer: FREDRICK KHAN ([id number])[facility] CENTERMaik KHOURY (SBHLAB)[address] Calcium [Mass/Vol] 7.4 mg/dL Low 8.4-10.4 [facility] Comment on above: Performed By: #### L AB17, [id number] ####Chief Information Officer: FREDRICK KHAN ([id number])[facility] CENTERMaik KHOURY (SBHLAB)[address] Chloride [Moles/Vol] 110 mmol/L High 98-107 [facility] Comment on above: Performed By: #### L AB17, [id number] ####Chief Information Officer: FREDRICK KHAN ([id number])[facility] CENTERMaik SRAVANJUSTEN (SBHLAB)[address] CO2 [Moles/Vol] 25 mmol/L Normal 22-30 [facility] Comment on above: Performed By: #### L AB17, [id number] ####Chief Information Officer: FREDRICK KHAN ([id number])[facility] CENTERMaik SRAVANJUSTEN (SBHLAB)[address] Creatinine [Mass/Vol] 0.39 mg/dL Low 0.52-1.04 [facility] Comment on above: Performed By: #### L AB17, [id number] ####Chief Information Officer: FREDRICK KHAN ([id number])[facility] CENTERMaik KHOURY (SBHLAB)[address] GLOMERULAR FILTRATION RATE ML/MIN/1.73 SQ M.PREDICTED >90.0 Normal >60.0 [facility] Comment on above: Result Comment: Calc ulation based on the Chronic Kidney Disease Epidemiology Collaboration (CKD-EPI) equation refit without adjustment for race Performed By: #### L AB17, [id number] ####Chief Information Officer: FREDRICK KHAN ([id number])[facility] CENTERMaik KHOURY (SBHLAB)[address] Glucose [Mass/Vol] 118 mg/dL High 70-100 [facility] Comment on above: Performed By: #### L AB17, [id number] ####Chief Information Officer: FREDRICK KHAN ([id number])[facility]ENTERA [facility] (SBHLAB)[address] Potassium [Moles/Vol] 3.4 mmol/L Low 3.5-5.1 [facility] Comment on above: Performed By: #### L AB17, [id number] ####Chief Information Officer: FREDRICK KHAN ([id number])[facility] (SBHLAB)[address] Protein [Mass/Vol] 5.4 g/dL Low 6.3-8.2 [facility] Comment on above: Performed By: #### L AB17, [id number] ####Chief Information Officer: FREDRICK KHAN ([id number])[facility] (SBHLAB)[address] Sodium [Moles/Vol] 135 mmol/L Normal 135-145 [facility] Comment on above: Performed By: #### L AB17, [id number] ####Chief Information Officer: FREDRICK KHAN ([id number])[facility] (SBHLAB)[address] Urea nitrogen [Mass/Vol] 3 mg/dL Low 7-17 [facility] Comment on above: Performed By: #### L AB17, [id number] ####Chief Information Officer: FREDRICK KHAN ([id number])[facility] (SBHLAB)[address] Comprehensive metabolic 1998 panelon 06-29-2023 Albumin [Mass/Vol] 2.6 g/dL Low 3.5 - 5.0 g/dL [facility] ALP [Catalytic activity/Vol] 31 U/L Low 38 - 126 U/L [facility] ALT [Catalytic activity/Vol] 12 U/L 0 - 34 U/L [facility] Anion gap [Moles/Vol] 1 mmol/L Low 3 - 13 mmol/L [facility] AST [Catalytic activity/Vol] 24 U/L 15 - 46 U/L [facility] Bilirubin [Mass/Vol] 0.4 mg/dL 0.2 - 1 .3 mg/dL [facility] Calcium [Mass/Vol] 7.4 mg/dL Low 8.4 - 10. 4 mg/dL [facility] Chloride [Moles/Vol] 110 mmol/L High 98 - 10 7 mmol/L [facility] CO2 [Moles/Vol] 25 mmol/L 22 - 30 mmol/L [facility] Creatinine [Mass/Vol] 0.39 mg/dL Low 0.52 - 1.04 mg/dL [facility] GFR/1.73 sq M.predicted MDRD (S/P/Bld) [Vol rate/Area] - PINF [facility] Comment on above: Calculation based on the Chronic Kidney Disease Epidemiology Collaboration (CKD-EPI) equation refit without adjustment for race Glucose [Mass/Vol] 118 mg/dL High 70 - 100 mg/dL [facility] Interpretation and review of laboratory results Abnormal [facility] Potassium [Moles/Vol] 3.4 mmol/L Low 3.5 - 5.1 mmol/L [facility] Protein [Mass/Vol] 5.4 g/dL Low 6.3 - 8.2 g/dL [facility] Sodium [Moles/Vol] 135 mmol/L 135 - 145 mmol/L [facility] Urea nitrogen [Mass/Vol] 3 mg/dL Low 7 - 17 mg/dL [facility] Laboratory - Chemistry and C hemistry - challengeon 06-29-2023 Magnesium [Mass/Vol] 1.8 mg/dL 1.6 - 2 .3 mg/dL [facility] MAGNESIUMon 06-29-2023 Magnesium [Mass/Vol] 1.8 mg/dL Normal 1.6-2.3 [facility] Comment on above: Performed By: #### L AB17, [id number] ####Chief Information Officer: FREDRICK KHAN ([id number])[facility] [place] (SBAB)[address] [place] [address] Magnesium [Mass/Vol]on 06-29 Interpretation and review of laboratory results Normal [facility] Progress Noteon 06-29-2023 Progress Note Normal [facility] Progress Note Normal [facility] C-REACTIVE PROTEINon 023 CRP [Mass/Vol] 146.9 mg/L High <10.0 [facility] Comment on above: Performed By: #### L [id number], LAB17, [id number] ####Chief Information Officer: FREDRICK KHAN ([id number])[facility] (SBHLAB)[address] [place] [address] C. DIFFICILE BY PCR WITH REF IRLANDA TO EIAon 06-28-2023 C. DIFFICILE BY PCR WITH REFLEX TO EIA C. DIFFICILE TOXIN PCR Reference Not Detected Not Detected ORDER COMMENTS: C. difficile infection is unlikely to be present. Methodology: Real-time PCR Normal [facility] Comment on above: Performed By: #### L [id number], [id number] ####Chief Information Officer: NATHALY SERRANO ([id number])[facility] (SACLAB)[address] [place] [address] C. difficile toxin genes JACKIE +probe Ql (Stl)on 06-28-2023 C. difficile toxin PCR Not detected Not Detected [facility] Interpretation and review of laboratory results Normal [facility] C. difficile infecti on is unlikely to be present. Methodology: Real-time PCR [facility] CARECOORDon 06-28-2023 CARECOORD Normal [facility] CBC W Auto Differential pane l (Bld)on 06-28-2023 Basophils (Bld) [#/Vol] 0.0 10*3/uL 0.0 - 0.2 10*3/uL [facility] Basophils/100 WBC (Bld) 0.4 % 0.0 - 2.0 % [facility] Eosinophils (Bld) [#/Vol] 0.1 10*3/uL 0.0 - 0.5 10*3/uL [facility] Eosinophils/100 WBC (Bld) 1.1 % 1.0 - 6.0 % [facility] Erythrocyte distribution width (RBC) [Ratio] 15.9 % High 11.5 - 14.5 % [facility] Hematocrit (Bld) [Volume fraction] 32.5 % Low 35.0 - 47.0 % [facility] Hemoglobin (Bld) [Mass/Vol] 10.5 g/dL Low 11.7 - 16.0 g/dL [facility] Interpretation and review of laboratory results Abnormal [facility] Lymphocytes (Bld) [#/Vol] 1.2 10*3/uL 1.0 - 4.3 10*3/uL [facility] Lymphocytes/100 WBC (Bld) 13.9 % Low 20.0 - 40.0 % [facility] MCH (RBC) [Entitic mass] 27.8 pg 26.0 - 34.0 pg [facility] MCHC (RBC) [Mass/Vol] 32.3 % 32.0 - 36.0 % [facility] MCV (RBC) [Entitic vol] 86.3 fL 80.0 - 98.0 fL [facility] Monocytes (Bld) [#/Vol] 1.3 10*3/uL High 0.0 - 0.8 10*3/uL [facility] Monocytes/100 WBC (Bld) 15.3 % High 2.0 - 10.0 % [facility] Neutrophils (Bld) [#/Vol] 5.9 10*3/uL 1.8 - 7.0 10*3/uL [facility] Neutrophils/100 WBC (Bld) 69.3 % 40.0 - 80.0 % [facility] Nucleated RBC/100 WBC (Bld) [Ratio] 0.0 % [facility] Platelet mean volume (Bld) [Entitic vol] 7.4 fL 7.4 - 12.4 fL [facility] Platelets (Bld) [#/Vol] 379 10*3/uL 140 - 440 10*3/uL [facility] RBC (Bld) [#/Vol] 3.77 10*6/uL Low 3.8 - 5.20 10*6/uL [facility] WBC (Bld) [#/Vol] 8.5 10*3/uL 3.6 - 10.7 10*3/uL [facility] CBC WITH AUTO DIFFERENTIALon 06-28-2023 Basophils (Bld) [#/Vol] 0.0 10*3/uL Normal 0.0-0.2 [facility] Comment on above: Performed By: #### L [id number] ####Chief Information Officer: FREDRICK KHAN ([id number])[facility] (SBHLAB)[address] Basophils/100 WBC (Bld) 0.4 % Normal 0.0-2.0 [facility] Comment on above: Performed By: #### L [id number] ####Chief Information Officer: FREDRICK KHAN ([id number])[facility] (SBHLAB)[address] Eosinophils (Bld) [#/Vol] 0.1 10*3/uL Normal 0.0-0.5 [facility] Comment on above: Performed By: #### L [id number] ####Chief Information Officer: FREDRICK KHAN ([id number])[facility] [place] (SBHLAB)[address] Eosinophils/100 WBC (Bld) 1.1 % Normal 1.0-6.0 [facility] Comment on above: Performed By: #### L [id number] ####Chief Information Officer: FREDRICK KHAN ([id number])[facility] [place] (SBHLAB)[address] [place] [address] Erythrocyte distribution width (RBC) [Ratio] 15.9 % High 11.5-14.5 [facility] Comment on above: Performed By: #### L [id number] ####Chief Information Officer: FREDRICK KHAN ([id number])[facility] [place] (SBHLAB)[address] [place] [address] ERYTHROCYTE MEAN CORPUSCULAR HEMOGLOBIN CONCENTRATION (G/DL) BY AUTOMATED 32.3 % Normal 32.0-36.0 [facility] Comment on above: Performed By: #### L [id number] ####Chief Information Officer: FREDRICK KHAN ([id number])[facility] [place] (SBHLAB)[address] Hematocrit (Bld) [Volume fraction] 32.5 % Low 35.0-47.0 [facility] Comment on above: Performed By: #### L [id number] ####Chief Information Officer: FREDRICK KHAN ([id number])[facility] CENTERMaik BATISTADinesh (SBHLAB)[address] [place] [address] Hemoglobin (Bld) [Mass/Vol] 10.5 g/dL Low 11.7-16.0 [facility] Comment on above: Performed By: #### L [id number] ####Chief Information Officer: FREDRICK BILL ([id number])[facility] CENTERMaik SMOAKS ([facility] [place] [address] Lymphocytes (Bld) [#/Vol] 1.2 10*3/uL Normal 1.0-4.3 [facility] Comment on above: Performed By: #### L [id number] ####Chief Information Officer: FREDRICK BILL ([phone])[facility] CENTERMaik SMOAKS ([facility])[address] [place] [address] Lymphocytes/100 WBC (Bld) 13.9 % Low 20.0-40.0 [facility] Comment on above: Performed By: #### L [id number] ####Chief Information Officer: FREDRICK SHIRANehalSATINDER ([phone])[facility]ENTERMaik SMOAKS ([facility])[address] [place] [address] MCH (RBC) [Entitic mass] 27.8 pg Normal 26.0-34.0 [facility] Comment on above: Performed By: #### L [id number] ####Chief Information Officer: FREDRICK RAMOSSATINDER ([phone])[facility]ENTERMaik SMOAK[facility] ([facility])[address] [place] [address] MCV (RBC) [Entitic vol] 86.3 fL Normal 80.0-98.0 [facility] Comment on above: Performed By: #### L [id number] ####Chief Information Officer: FREDRICK BILL ([id number])[facility] [place] [address] Monocytes (Bld) [#/Vol] 1.3 10*3/uL High 0.0-0.8 [facility] Comment on above: Performed By: #### L [id number] ####Chief Information Officer: FREDRICK RAMOSSATINDER ([id number])[facility] [place] (SBHLAB)[address] [place] [address] [place] Monocytes/100 WBC (Bld) 15.3 % High 2.0-10.0 [facility] Comment on above: Performed By: #### L [id number] ####Chief Information Officer: FREDRICK MONROYCAROLINA ([phone])[facility] [place] (SBHLAB)[address] Neutrophils (Bld) [#/Vol] 5.9 10*3/uL Normal 1.8-7.0 [facility] Comment on above: Performed By: #### L [id number] ####Chief Information Officer: FREDRICK BILL ([id number])[facility] [place] ([facility])[address] Neutrophils/100 WBC (Bld) 69.3 % Normal 40.0-80.0 [facility] Comment on above: Performed By: #### L [id number] ####Chief Information Officer: FREDRICK MONROYCAROLINA ([id number])[facility] [place] (SB[facility])[address] [place] [address] [place] NRBC (PER 100 WBCS) BY AUTOMATED COUNT 0.0 /100 WBCs Normal 0.0-2.0 [facility] Comment on above: Performed By: #### L [id number] ####Chief Information Officer: FREDRICK KHAN ([id number])[facility] [place] (SB[facility])[address] Platelet mean volume (Bld) [Entitic vol] 7.4 fL Normal 7.4-12.4 [facility] Comment on above: Performed By: #### L [id number] ####Chief Information Officer: FREDRICK RAMOSSATINDER ([id number])[facility] [place] (SB[facility])[address] [place] [address] [place] PLATELETS (10*3/UL) IN BLOOD AUTOMATED COUNT 379 10*3/uL Normal 140-440 [facility] Comment on above: Performed By: #### L [id number] ####Chief Information Officer: FREDRICK RAMOSSATINDER ([id number])[facility] [place] (SB[facility])[address] RBC (Bld) [#/Vol] 3.77 10*6/uL Low 3.8-5.20 [facility] Comment on above: Performed By: #### L [id number] ####Chief Information Officer: FREDRICK KHAN ([id number])[facility] [place] (SB[facility])[address] WBC (Bld) [#/Vol] 8.5 10*3/uL Normal 3.6-10.7 [facility] Comment on above: Performed By: #### L [id number] ####Chief Information Officer: FREDRICK RAMOSSATINDER ([id number])[facility] [place] (SB[facility])[address] COMPREHENSIVE METABOLIC PANE Miles 06-28-2023 Albumin [Mass/Vol] 3.1 g/dL Low 3.5-5.0 [facility] Comment on above: Performed By: #### Ryan DAO, LAB17, [id number] ####Chief Information Officer: FREDRICK KHAN ([id number])[facility] [place] (SB[facility])[address] ALP [Catalytic activity/Vol] 52 U/L Normal 38-126 [facility] Comment on above: Performed By: #### L SYLWIA, LAB17, [id number] ####Chief Information Officer: FREDRICK KHAN ([id number])[facility] [place] ([facility])[address] ALT [Catalytic activity/Vol] 15 U/L Normal 0-34 [facility] Comment on above: Performed By: #### L AB103, LAB17, [id number] ####Chief Information Officer: FREDRICK KHAN ([id number])[facility] [place] ([facility])[address] Anion gap [Moles/Vol] 5 mmol/L Normal 3-13 [facility] Comment on above: Performed By: #### Ryan DAO, LAB17, [id number] ####Chief Information Officer: FREDRICK KHAN ([id number])[facility]ENTER[facility] [place] (SBHLAB)[address] AST [Catalytic activity/Vol] 21 U/L Normal 15-46 [facility] Comment on above: Performed By: #### Ryan DAO, LAB17, [id number] ####Chief Information Officer: FREDRICK KHAN ([id number])[facility] [place] (SBHLAB)[address] Bilirubin [Mass/Vol] 0.4 mg/dL Normal 0.2-1.3 [facility] Comment on above: Performed By: #### Ryan DAO, LAB17, [id number] ####Chief Information Officer: FREDRICK KHAN ([id number])[facility]ENTERMaik H[facility]SONPRESBYTER[facility] (SBHLAB)[address] Calcium [Mass/Vol] 8.3 mg/dL Low 8.4-10.4 [facility] Comment on above: Performed By: #### Ryan DAO, LAB17, [id number] ####Chief Information Officer: FREDRICK KHAN ([id number])[facility] [place] (SBHLAB)[address] Chloride [Moles/Vol] 103 mmol/L Normal 98-107 [facility] Comment on above: Performed By: #### Ryan DAO, LAB17, [id number] ####Chief Information Officer: FREDRICK KHAN ([id number])[facility] [place] (SBHLAB)[address] [place] [address] [place] CO2 [Moles/Vol] 26 mmol/L Normal 22-30 [facility] Comment on above: Performed By: #### Ryan DAO, LAB17, [id number] ####Chief Information Officer: FREDRICK KHAN ([id number])[facility]ANPRESBY[facility] (SBHLAB)[address] [place] [address] [place] Creatinine [Mass/Vol] 0.57 mg/dL Normal 0.52-1.04 [facility] Comment on above: Performed By: #### L ABSienna, LAB17, [id number] ####Chief Information Officer: FREDRICK KHAN ([id number])[facility] ([facility])[address] GLOMERULAR FILTRATION RATE ML/MIN/1.73 SQ M.PREDICTED >90.0 Normal >60.0 [facility] Comment on above: Result Comment: Calc ulation based on the Chronic Kidney Disease Epidemiology Collaboration (CKD-EPI) equation refit without adjustment for race Performed By: #### Ryan DAO, LAB17, [id number] ####Chief Information Officer: FREDRICK KHAN ([id number])[facility] ([facility])[address] Glucose [Mass/Vol] 129 mg/dL High 70-100 [facility] Comment on above: Performed By: #### Ryan DAO, LAB17, [id number] ####Chief Information Officer: FREDIRCK KHAN ([id number])[facility] ([facility])[address] Potassium [Moles/Vol] 3.5 mmol/L Normal 3.5-5.1 [facility] Comment on above: Performed By: #### Ryan DAO, LAB17, [id number] ####Chief Information Officer: FREDRICK KHAN ([id number])[facility] Protein [Mass/Vol] 6.1 g/dL Low 6.3-8.2 [facility] Comment on above: Performed By: #### L SYLWIA, LAB17, [id number] ####Chief Information Officer: FREDRICK KHAN ([id number])[facility])[address] Sodium [Moles/Vol] 134 mmol/L Low 135-145 [facility] Comment on above: Performed By: #### L SYLWIA, LAB17, [id number] ####Chief Information Officer: FREDRICK KHAN ([id number])[facility] (SB[facility])[address] Urea nitrogen [Mass/Vol] 4 mg/dL Low 7-17 [facility] Comment on above: Performed By: #### L AB103, LAB17, [id number] ####Chief Information Officer: FREDRICK KHAN ([id number])[facility] (SBHLAB)[address] CRP [Mass/Vol]on 06-28-2023 Interpretation and review of laboratory results Abnormal [facility] Comprehensive metabolic 1998 panelon 06-28-2023 Albumin [Mass/Vol] 3.1 g/dL Low 3.5 - 5.0 g/dL [facility] ALP [Catalytic activity/Vol] 52 U/L 38 - 126 U/L [facility] ALT [Catalytic activity/Vol] 15 U/L 0 - 34 U/L [facility] Anion gap [Moles/Vol] 5 mmol/L 3 - 13 mmol/L [facility] AST [Catalytic activity/Vol] 21 U/L 15 - 46 U/L [facility] Bilirubin [Mass/Vol] 0.4 mg/dL 0.2 - 1 .3 mg/dL [facility] Calcium [Mass/Vol] 8.3 mg/dL Low 8.4 - 10. 4 mg/dL [facility] Chloride [Moles/Vol] 103 mmol/L 98 - 10 7 mmol/L [facility] CO2 [Moles/Vol] 26 mmol/L 22 - 30 mmol/L [facility] Creatinine [Mass/Vol] 0.57 mg/dL 0.52 - 1.04 mg/dL [facility] GFR/1.73 sq M.predicted MDRD (S/P/Bld) [Vol rate/Area] - PINF [facility] Comment on above: Calculation based on the Chronic Kidney Disease Epidemiology Collaboration (CKD-EPI) equation refit without adjustment for race Glucose [Mass/Vol] 129 mg/dL High 70 - 100 mg/dL [facility] Interpretation and review of laboratory results Abnormal [facility] Potassium [Moles/Vol] 3.5 mmol/L 3.5 - 5.1 mmol/L [facility] Protein [Mass/Vol] 6.1 g/dL Low 6.3 - 8.2 g/dL [facility] Sodium [Moles/Vol] 134 mmol/L Low 135 - 145 mmol/L [facility] Urea nitrogen [Mass/Vol] 4 mg/dL Low 7 - 17 mg/dL [facility] GASTROINTESTINAL PCR PANELon 06-28-2023 GASTROINTESTINAL PCR PANEL Normal [facility] Comment on above: Performed By: #### L [id number], [id number] ####Chief Information Officer: NATHALY SERRANO ([id number])[facility] (S[facility])[address] [place] [address] Gastrointestinal pathogens p shantel JACKIE+probe (Stl)Ordered By: Pam Tamez on 06-28-2023 Adenovirus F 40/41 Not detected Not Detected [facility] Astrovirus Not detected Not Detected [facility] Campylobacter Not detected Not Detected [facility] Cryptosporidium Not detected Not Detected [facility] Cyclospora cayetanensis Not detected Not Detected [facility] Entamoeba histolytica Not detected Not Detected [facility] Enterotoxigenic E coli (ETEC) Not detected Not Detected [facility] Giardia lamblia Not detected Not Detected [facility] Interpretation and review of laboratory results Normal [facility] Norovirus GI/GII Not detected Not Detected [facility] Plesiomonas shigelloides Not detected Not Detected [facility] Rotavirus A Not detected Not Detected [facility] Salmonella Not detected Not Detected [facility] Sapovirus Not detected Not Detected [facility] Shiga toxin-producing E coli (STEC) Not detected Not Detected [facility] Shigella/Enteroinvasive E coli (EIEC) Not detected Not Detected [facility] Vibrio cholerae Not detected Not Detected [facility] Vibrio species Not detected Not Detected [facility] Yersinia enterocolitica Not detected Not Detected [facility] Methodology: Multipl ex PCR [facility] LACTIC ACID WITH REFLEXon Lactate [Moles/Vol] 0.7 mmol/L Normal 0.7-2.0 [facility] Comment on above: Performed By: #### L [id number] ####Chief Information Officer: FREDRICK KHAN ([id number])[facility] [place] (SBHLAB)[address] [place] [address] [place] Laboratory - Chemistry and C hemistry - challengeon 06-28-2023 Procalcitonin [Mass/Vol] 0.07 ng/mL 0.00 - 0.09 ng/mL [facility] CRP [Mass/Vol] 146.9 mg/L High NINF - 10.0 mg/L [facility] Lactate [Moles/Vol] 0.7 mmol/L 0.7 - 2. 0 mmol/L [facility] Magnesium [Mass/Vol] 1.9 mg/dL 1.6 - 2 .3 mg/dL [facility] MAGNESIUMon 06-28-2023 Magnesium [Mass/Vol] 1.9 mg/dL Normal 1.6-2.3 [facility] Comment on above: Performed By: #### L AB103, LAB17, [id number] ####Chief Information Officer: FREDRICK KHAN ([id number])[facility] ([facility])[address] [place] [address] Magnesium [Mass/Vol]on 06-28 Interpretation and review of laboratory results Normal [facility] No Panel Informationon 06-28 Interpretation and review of laboratory results Normal [facility] PROCALCITONIN TESTon 023 PROCALCITONIN 0.07 ng/mL Normal 0.00-0.09 [facility] Comment on above: Result Comment: SHANNAN Zavala COMMENTS:PCT <0.50 = Low risk of severe sepsis and/or septic shock.PCT >2.00 = High risk of severe sepsis and/or septic shock. Performed By: #### L [id number] ####Chief Information Officer: NATHALY SERRANO ([id number])[facility] ([facility])[address] [place] [address] Procalcitonin [Mass/Vol]on Interpretation and review of laboratory results Normal [facility] PCT <0.50 = Low risk of severe sepsis and/or septic shock. PCT >2.00 = High risk of severe sepsis and/or septic shock. [facility] Progress Noteon 06-28-2023 Progress Note Patient's son update d on patient's condition while he was was visiting. Normal [facility] Progress Note Normal [facility] CARECOORDon 06-27-2023 CARECOORD Normal [facility] CBC W Auto Differential pane l (Bld)Ordered By: Carine Moralez on 06-27-2023 Basophils (Bld) [#/Vol] 0.1 10*3/uL 0.0 - 0.2 10*3/uL [facility] Basophils/100 WBC (Bld) 0.6 % 0.0 - 2.0 % [facility] Eosinophils (Bld) [#/Vol] 0.1 10*3/uL 0.0 - 0.5 10*3/uL [facility] Eosinophils/100 WBC (Bld) 0.8 % Low 1.0 - 6.0 % [facility] Erythrocyte distribution width (RBC) [Ratio] 16.3 % High 11.5 - 14.5 % [facility] Hematocrit (Bld) [Volume fraction] 38.0 % 35.0 - 47.0 % [facility] Hemoglobin (Bld) [Mass/Vol] 12.4 g/dL 11.7 - 16.0 g/dL [facility] Interpretation and review of laboratory results Abnormal [facility] Lymphocytes (Bld) [#/Vol] 1.6 10*3/uL 1.0 - 4.3 10*3/uL [facility] Lymphocytes/100 WBC (Bld) 11.7 % Low 20.0 - 40.0 % [facility] MCH (RBC) [Entitic mass] 28.0 pg 26.0 - 34.0 pg [facility] MCHC (RBC) [Mass/Vol] 32.5 % 32.0 - 36.0 % [facility] MCV (RBC) [Entitic vol] 86.0 fL 80.0 - 98.0 fL [facility] Monocytes (Bld) [#/Vol] 1.4 10*3/uL High 0.0 - 0.8 10*3/uL [facility] Monocytes/100 WBC (Bld) 10.6 % High 2.0 - 10.0 % [facility] Neutrophils (Bld) [#/Vol] 10.3 10*3/uL High 1.8 - 7.0 10*3/uL [facility] Neutrophils/100 WBC (Bld) 76.3 % 40.0 - 80.0 % [facility] Nucleated RBC/100 WBC (Bld) [Ratio] 0.1 % [facility] Platelet mean volume (Bld) [Entitic vol] 7.4 fL 7.4 - 12.4 fL [facility] Platelets (Bld) [#/Vol] 435 10*3/uL 140 - 440 10*3/uL [facility] RBC (Bld) [#/Vol] 4.41 10*6/uL 3.8 - 5.20 10*6/uL [facility] WBC (Bld) [#/Vol] 13.5 10*3/uL High 3.6 - 10.7 10*3/uL [facility] CBC WITH AUTO DIFFERENTIALon 06-27-2023 Basophils (Bld) [#/Vol] 0.1 10*3/uL Normal 0.0-0.2 [facility] Comment on above: Performed By: #### L [id number] ####Chief Information Officer: FREDRICK KHAN ([id number])[facility] (SBAB)[address] [place] [address] Basophils/100 WBC (Bld) 0.6 % Normal 0.0-2.0 [facility] Comment on above: Performed By: #### L [id number] ####Chief Information Officer: FREDRICK KHAN ([id number])[facility] (SBAB)[address] [place] [address] Eosinophils (Bld) [#/Vol] 0.1 10*3/uL Normal 0.0-0.5 [facility] Comment on above: Performed By: #### L [id number] ####Chief Information Officer: FREDRICK KHAN ([id number])[facility] (SBHLAB)[address] Eosinophils/100 WBC (Bld) 0.8 % Low 1.0-6.0 [facility] Comment on above: Performed By: #### L [id number] ####Chief Information Officer: FREDRICK KHAN ([id number])[facility] (SBAB)[address] [place] [address] Erythrocyte distribution width (RBC) [Ratio] 16.3 % High 11.5-14.5 [facility] Comment on above: Performed By: #### L [id number] ####Chief Information Officer: FREDRICK RAMOSSATINDER ([id number])[facility] [place] (SB[facility])[address] ERYTHROCYTE MEAN CORPUSCULAR HEMOGLOBIN CONCENTRATION (G/DL) BY AUTOMATED 32.5 % Normal 32.0-36.0 [facility] Comment on above: Performed By: #### L [id number] ####Chief Information Officer: FREDRICK RAMOSSATINDER ([id number])[facility] [place] ([facility])[address] Hematocrit (Bld) [Volume fraction] 38.0 % Normal 35.0-47.0 [facility] Comment on above: Performed By: #### L [id number] ####Chief Information Officer: FREDRICK RAMOSSATINDER ([id number])[facility] [place] ([facility])[address] Hemoglobin (Bld) [Mass/Vol] 12.4 g/dL Normal 11.7-16.0 [facility] Comment on above: Performed By: #### L [id number] ####Chief Information Officer: FREDRICK RAMOSSATINDER ([id number])[facility] [place] (SB[facility])[address] [place] [address] Lymphocytes (Bld) [#/Vol] 1.6 10*3/uL Normal 1.0-4.3 [facility] Comment on above: Performed By: #### L [id number] ####Chief Information Officer: FREDRICK KHAN ([id number])[facility] [place] ([facility])[address] Lymphocytes/100 WBC (Bld) 11.7 % Low 20.0-40.0 [facility] Comment on above: Performed By: #### L [id number] ####Chief Information Officer: FREDRICK KHAN ([id number])[facility] [place] ([facility])[address] MCH (RBC) [Entitic mass] 28.0 pg Normal 26.0-34.0 [facility] Comment on above: Performed By: #### L [id number] ####Chief Information Officer: FREDRICK MONROYNehalSATINDER ([id number])[facility] [place] (SBHLAB)[address] MCV (RBC) [Entitic vol] 86.0 fL Normal 80.0-98.0 [facility] Comment on above: Performed By: #### L [id number] ####Chief Information Officer: FREDRICK BILL ([id number])[facility] [place] (SB[facility])[address] Monocytes (Bld) [#/Vol] 1.4 10*3/uL High 0.0-0.8 [facility] Comment on above: Performed By: #### L [id number] ####Chief Information Officer: FREDRICK BILL ([id number])[facility] [place] (SBHLAB)[address] Monocytes/100 WBC (Bld) 10.6 % High 2.0-10.0 [facility] Comment on above: Performed By: #### L [id number] ####Chief Information Officer: FREDRICK LIONCER ([id number])[facility] [place] (SB[facility])[address] Neutrophils (Bld) [#/Vol] 10.3 10*3/uL High 1.8-7.0 [facility] Comment on above: Performed By: #### L [id number] ####Chief Information Officer: FREDRICK MONROYCAROLINA ([id number])[facility] [place] (SBHLAB)[address] [place] [address] [place] Neutrophils/100 WBC (Bld) 76.3 % Normal 40.0-80.0 [facility] Comment on above: Performed By: #### L [id number] ####Chief Information Officer: FREDRICK KHAN ([id number])[facility] [place] (SB[facility])[address] NRBC (PER 100 WBCS) BY AUTOMATED COUNT 0.1 /100 WBCs Normal 0.0-2.0 [facility] Comment on above: Performed By: #### L [id number] ####Chief Information Officer: FREDRICK KHAN ([id number])[facility] [place] ([facility])[address] Platelet mean volume (Bld) [Entitic vol] 7.4 fL Normal 7.4-12.4 [facility] Comment on above: Performed By: #### L [id number] ####Chief Information Officer: FREDRICK KHAN ([id number])[facility] (SBHLAB)[address] PLATELETS (10*3/UL) IN BLOOD AUTOMATED COUNT 435 10*3/uL Normal 140-440 [facility] Comment on above: Performed By: #### L [id number] ####Chief Information Officer: FREDRICK KHAN ([id number])[facility] [place] ([facility])[address] RBC (Bld) [#/Vol] 4.41 10*6/uL Normal 3.8-5.20 [facility] Comment on above: Performed By: #### L [id number] ####Chief Information Officer: FREDRICK KHAN ([id number])[facility] (SB[facility]AB)[address] WBC (Bld) [#/Vol] 13.5 10*3/uL High 3.6-10.7 [facility] Comment on above: Performed By: #### L [id number] ####Chief Information Officer: FREDRICK KHAN ([id number])[facility] [place] (SB[facility])[address] COMPREHENSIVE METABOLIC PANE Miles 06-27-2023 Albumin [Mass/Vol] 3.7 g/dL Normal 3.5-5.0 [facility] Comment on above: Performed By: #### L AB17 ####Chief Information Officer: FREDRICK SEYMOURCER ([id number])[facility] [place] (SBHLAB)[address] ALP [Catalytic activity/Vol] 66 U/L Normal 38-126 [facility] Comment on above: Performed By: #### L AB17 ####Chief Information Officer: FREDRICK RAMOSSATINDER ([id number])[facility] [place] (SB[facility])[address] [place] [address] [place] ALT [Catalytic activity/Vol] 15 U/L Normal 0-34 [facility] Comment on above: Performed By: #### L AB17 ####Chief Information Officer: FREDRICK RAMOSSATINDER ([id number])[facility] [place] ([facility])[address] Anion gap [Moles/Vol] 5 mmol/L Normal 3-13 [facility] Comment on above: Performed By: #### L AB17 ####Chief Information Officer: FREDRICK RAMOSSATINDER ([id number])[facility] [place] ([facility])[address] AST [Catalytic activity/Vol] 21 U/L Normal 15-46 [facility] Comment on above: Performed By: #### L AB17 ####Chief Information Officer: FREDRICK RAMOSSATINDER ([id number])[facility] [place] ([facility])[address] Bilirubin [Mass/Vol] 0.5 mg/dL Normal 0.2-1.3 [facility] Comment on above: Performed By: #### L AB17 ####Chief Information Officer: FREDRICK RAMOSSATINDER ([id number])[facility] [place] ([facility])[address] Calcium [Mass/Vol] 8.8 mg/dL Normal 8.4-10.4 [facility] Comment on above: Performed By: #### L AB17 ####Chief Information Officer: FREDRICK KHAN ([id number])[facility] [place] (SB[facility])[address] [place] [address] [place] Chloride [Moles/Vol] 101 mmol/L Normal 98-107 [facility] Comment on above: Performed By: #### L AB17 ####Chief Information Officer: FREDRICK KHAN ([id number])[facility] (SBHLAB)[address] CO2 [Moles/Vol] 26 mmol/L Normal 22-30 [facility] Comment on above: Performed By: #### L AB17 ####Chief Information Officer: FREDRICK KHAN ([id number])[facility]ENTERMaik [facility]BPRESBY[facility] (SBHLAB)[address] Creatinine [Mass/Vol] 0.61 mg/dL Normal 0.52-1.04 [facility] Comment on above: Performed By: #### L AB17 ####Chief Information Officer: FREDRICK KHAN ([id number])[facility]ENTERMaik [facility]SONPRESBYTER[facility] (SBHLAB)[address] GLOMERULAR FILTRATION RATE ML/MIN/1.73 SQ M.PREDICTED >90.0 Normal >60.0 [facility] Comment on above: Result Comment: Calc ulation based on the Chronic Kidney Disease Epidemiology Collaboration (CKD-EPI) equation refit without adjustment for race Performed By: #### L AB17 ####Chief Information Officer: FREDRICK KHAN ([id number])[facility]ENTER[facility] BARBTRINYN (SBHLAB)[address] Glucose [Mass/Vol] 97 mg/dL Normal 70-100 [facility] Comment on above: Performed By: #### L [id number] ####Chief Information Officer: FREDRICK KHAN ([id number])[facility] BARBPRESBYTERIAN S[facility] MED[facility] CENTERN (SBHLAB)[address] Potassium [Moles/Vol] 4.0 mmol/L Normal 3.5-5.1 [facility] Comment on above: Performed By: #### L [id number] ####Chief Information Officer: FREDRICK KHAN ([id number])[facility] SRAVANPRESBYTERIAN SANTA FE MEDICAL CENTERN (SBHLAB)[address] Protein [Mass/Vol] 7.2 g/dL Normal 6.3-8.2 [facility] Comment on above: Performed By: #### L [id number] ####Chief Information Officer: FREDRICK KHAN ([id number])[facility] (SBHLAB)[address] Sodium [Moles/Vol] 132 mmol/L Low 135-145 [facility] Comment on above: Performed By: #### L [id number] ####Chief Information Officer: FREDRICK KHAN ([id number])[facility] (SBHLAB)[address] Urea nitrogen [Mass/Vol] 5 mg/dL Low 7-17 [facility] Comment on above: Performed By: #### L [id number] ####Chief Information Officer: FREDRICK KHAN ([id number])[facility] (SBHLAB)[address] ABDOMEN PELVIS W CONTRAST on 06-27-2023 CT ABDOMEN PELVIS W CONTRAST Normal [facility] CT Abdomen and Pelvis W cont rast Nani 06-27-2023 1. Acute sigmoid diverticulitis. No pneumoperitoneum or fluid collection. Appearance is similar to prior exam from 06/23/2023. 2. Abdominal aortic aneurysm measuring 3 cm. Report Dictated on Electronically Signed By: Soila Martins MD Electronically Signed Date/Time: 06/27/2023 5:11 PM [facility] Patient Name: PRISCILA CHA : 1955 Exam Date/Time: 06/27/2023 16:35 Procedure: CT ABDOMEN PELVIS W CONTRAST Ordering Provider: SHAY ALEXANDER Reason For Exam: Abdominal pain, acute, nonlocalized EXAM: CT Abdomen and pelvis INDICATION: Abdominal pain COMPARISON: 06/23/2023 TECHNIQUE: CT of the abdomen and pelvis was performed with contrast (75 mL of Isovue 370 was injected intravenously). Coronal and sagittal reformats were obtained. Dose reduction was employed with automated exposure control. FINDINGS: LOWER CHEST: within normal limits. ABDOMEN: LIVER: within normal limits. BILE DUCTS: normal caliber. GALLBLADDER: No calcified gallstones. Normal caliber wall. PANCREAS: within normal limits. SPLEEN: within normal limits. ADRENALS: within normal limits. KIDNEYS: within normal limits. PELVIS: REPRODUCTIVE ORGANS: no pelvic masses. URETERS: within normal limits. BLADDER: within normal limits. BOWEL: Normal caliber. Appendix within normal limits. There is descending and sigmoid colonic diverticulosis. Again noted is mural thickening and stranding of the adjacent mesenteric fat about the mid to distal sigmoid colon. No pericolic fluid collection. No pneumoperitoneum. No enlarged mesenteric lymph nodes. PERITONEUM: no ascites or free air, no fluid collection. VESSELS: There is mild aneurysmal dilatation of the abdominal aorta measuring 3 cm. LYMPH NODES: No enlarged nodes. RETROPERITONEUM: within normal limits. ABDOMINAL WALL: within normal limits. BONES: Multilevel degenerative changes of the imaged spine. There is posterior lumbar spine fusion rods and screws at L4-L5. [facility] Soila Martins MD - 06/27/2023 Patient Name: PRISCILA CHA : 1955 Exam Date/Time: 06/27/2023 16:35 Procedure: CT ABDOMEN PELVIS W CONTRAST Ordering Provider: SHAY ALEXANDER Reason For Exam: Abdominal pain, acute, nonlocalized EXAM: CT Abdomen and pelvis INDICATION: Abdominal pain COMPARISON: 06/23/2023 TECHNIQUE: CT of the abdomen and pelvis was performed with contrast (75 mL of Isovue 370 was injected intravenously). Coronal and sagittal reformats were obtained. Dose reduction was employed with automated exposure control. FINDINGS: LOWER CHEST: within normal limits. ABDOMEN: LIVER: within normal limits. BILE DUCTS: normal caliber. GALLBLADDER: No calcified gallstones. Normal caliber wall. PANCREAS: within normal limits. SPLEEN: within normal limits. ADRENALS: within normal limits. KIDNEYS: within normal limits. PELVIS: REPRODUCTIVE ORGANS: no pelvic masses. URETERS: within normal limits. BLADDER: within normal limits. BOWEL: Normal caliber. Appendix within normal limits. There is descending and sigmoid colonic diverticulosis. Again noted is mural thickening and stranding of the adjacent mesenteric fat about the mid to distal sigmoid colon. No pericolic fluid collection. No pneumoperitoneum. No enlarged mesenteric lymph nodes. PERITONEUM: no ascites or free air, no fluid collection. VESSELS: There is mild aneurysmal dilatation of the abdominal aorta measuring 3 cm. LYMPH NODES: No enlarged nodes. RETROPERITONEUM: within normal limits. ABDOMINAL WALL: within normal limits. BONES: Multilevel degenerative changes of the imaged spine. There is posterior lumbar spine fusion rods and screws at L4-L5. IMPRESSION: 1. Acute sigmoid diverticulitis. No pneumoperitoneum or fluid collection. Appearance is similar to prior exam from 06/23/2023. 2. Abdominal aortic aneurysm measuring 3 cm. Report Dictated on Electronically Signed By: Soila Martins MD Electronically Signed Date/Time: 06/27/2023 5:11 PM EDT [facility] Radiology Study observation (narrative) [facility] CT Abdomen and Pelvis W cont rast IVOrdered By: Soila Martins on 06-27-2023 [facility] [employer] Work Phone: Comprehensive metabolic 1998 panelon 06-27-2023 Albumin [Mass/Vol] 3.7 g/dL 3.5 - 5.0 g/dL [facility] ALP [Catalytic activity/Vol] 66 U/L 38 - 126 U/L [facility] ALT [Catalytic activity/Vol] 15 U/L 0 - 34 U/L [facility] Anion gap [Moles/Vol] 5 mmol/L 3 - 13 mmol/L [facility] AST [Catalytic activity/Vol] 21 U/L 15 - 46 U/L [facility] Bilirubin [Mass/Vol] 0.5 mg/dL 0.2 - 1 .3 mg/dL [facility] Calcium [Mass/Vol] 8.8 mg/dL 8.4 - 10. 4 mg/dL [facility] [employer] Chloride [Moles/Vol] 101 mmol/L 98 - 10 7 mmol/L [facility] CO2 [Moles/Vol] 26 mmol/L 22 - 30 mmol/L [facility] Creatinine [Mass/Vol] 0.61 mg/dL 0.52 - 1.04 mg/dL [facility] GFR/1.73 sq M.predicted MDRD (S/P/Bld) [Vol rate/Area] - PINF [facility] Comment on above: Calculation based on the Chronic Kidney Disease Epidemiology Collaboration (CKD-EPI) equation refit without adjustment for race Glucose [Mass/Vol] 97 mg/dL 70 - 100 mg/dL [facility] Interpretation and review of laboratory results Abnormal [facility] Potassium [Moles/Vol] 4.0 mmol/L 3.5 - 5.1 mmol/L [facility] Protein [Mass/Vol] 7.2 g/dL 6.3 - 8.2 g/dL [facility] Sodium [Moles/Vol] 132 mmol/L Low 135 - 145 mmol/L [facility] Urea nitrogen [Mass/Vol] 5 mg/dL Low 7 - 17 mg/dL [facility] IDNon 06-27-2023 IDN Normal [facility] Progress Noteon 06-27-2023 Progress Note Normal [facility] Progress Note Normal [facility] CARECOORDon 06-26-2023 CARECOORD Normal [facility] CBC W Auto Differential pane l (Bld)Ordered By: Kelvin Garcia on 06-26-2023 Basophils (Bld) [#/Vol] 0.0 10*3/uL 0.0 - 0.2 10*3/uL [facility] Basophils/100 WBC (Bld) 0.5 % 0.0 - 2.0 % [facility] Eosinophils (Bld) [#/Vol] 0.1 10*3/uL 0.0 - 0.5 10*3/uL [facility] Eosinophils/100 WBC (Bld) 1.1 % 1.0 - 6.0 % [facility] Erythrocyte distribution width (RBC) [Ratio] 15.7 % High 11.5 - 14.5 % [facility] Hematocrit (Bld) [Volume fraction] 34.1 % Low 35.0 - 47.0 % [facility] Hemoglobin (Bld) [Mass/Vol] 11.3 g/dL Low 11.7 - 16.0 g/dL [facility] Interpretation and review of laboratory results Abnormal [facility] Lymphocytes (Bld) [#/Vol] 1.0 10*3/uL 1.0 - 4.3 10*3/uL [facility] Lymphocytes/100 WBC (Bld) 11.0 % Low 20.0 - 40.0 % [facility] MCH (RBC) [Entitic mass] 28.4 pg 26.0 - 34.0 pg [facility] MCHC (RBC) [Mass/Vol] 33.1 % 32.0 - 36.0 % [facility] MCV (RBC) [Entitic vol] 85.8 fL 80.0 - 98.0 fL [facility] Monocytes (Bld) [#/Vol] 0.9 10*3/uL High 0.0 - 0.8 10*3/uL [facility] Monocytes/100 WBC (Bld) 10.6 % High 2.0 - 10.0 % [facility] Neutrophils (Bld) [#/Vol] 6.7 10*3/uL 1.8 - 7.0 10*3/uL [facility] Neutrophils/100 WBC (Bld) 76.8 % 40.0 - 80.0 % [facility] Nucleated RBC/100 WBC (Bld) [Ratio] 0.1 % [facility] Platelet mean volume (Bld) [Entitic vol] 7.3 fL Low 7.4 - 12.4 fL [facility] Platelets (Bld) [#/Vol] 424 10*3/uL 140 - 440 10*3/uL [facility] RBC (Bld) [#/Vol] 3.97 10*6/uL 3.8 - 5.20 10*6/uL [facility] WBC (Bld) [#/Vol] 8.7 10*3/uL 3.6 - 10.7 10*3/uL [facility] CBC WITH AUTO DIFFERENTIALon 06-26-2023 Basophils (Bld) [#/Vol] 0.0 10*3/uL Normal 0.0-0.2 [facility] Comment on above: Performed By: #### L [id number] ####Chief Information Officer: FREDRICK KHAN ([id number])[facility] CENTERMaik KHOURY ([facility])[address] [place] [address] Basophils/100 WBC (Bld) 0.5 % Normal 0.0-2.0 [facility] Comment on above: Performed By: #### L [id number] ####Chief Information Officer: FREDRICK KHAN ([id number])[facility] (SBHLAB)[address] Eosinophils (Bld) [#/Vol] 0.1 10*3/uL Normal 0.0-0.5 [facility] Comment on above: Performed By: #### L [id number] ####Chief Information Officer: FREDRICK KHAN ([id number])[facility]ENTERA [facility] (SBHLAB)[address] Eosinophils/100 WBC (Bld) 1.1 % Normal 1.0-6.0 [facility] Comment on above: Performed By: #### L [id number] ####Chief Information Officer: FREDRICK KHAN ([id number])[facility]A [facility] (SBHLAB)[address] [place] [address] Erythrocyte distribution width (RBC) [Ratio] 15.7 % High 11.5-14.5 [facility] Comment on above: Performed By: #### L [id number] ####Chief Information Officer: FREDRICK KHAN ([id number])[facility]A [facility] (SBHLAB)[address] [place] [address] ERYTHROCYTE MEAN CORPUSCULAR HEMOGLOBIN CONCENTRATION (G/DL) BY AUTOMATED 33.1 % Normal 32.0-36.0 [facility] Comment on above: Performed By: #### L [id number] ####Chief Information Officer: FREDRICK KHAN ([id number])[facility] (SBHLAB)[address] [place] [address] Hematocrit (Bld) [Volume fraction] 34.1 % Low 35.0-47.0 [facility] Comment on above: Performed By: #### L [id number] ####Chief Information Officer: FREDRICK KHAN ([id number])[facility] (SBHLAB)[address] [place] [address] Hemoglobin (Bld) [Mass/Vol] 11.3 g/dL Low 11.7-16.0 [facility] Comment on above: Performed By: #### L [id number] ####Chief Information Officer: FREDRICK KHAN ([id number])[facility] [place] (SBHLAB)[address] Lymphocytes (Bld) [#/Vol] 1.0 10*3/uL Normal 1.0-4.3 [facility] Comment on above: Performed By: #### L [id number] ####Chief Information Officer: FREDRICK MONROYADITAYSATINDER ([id number])[facility] (SBHLAB)[address] Lymphocytes/100 WBC (Bld) 11.0 % Low 20.0-40.0 [facility] Comment on above: Performed By: #### L [id number] ####Chief Information Officer: FREDRICK KHAN ([id number])[facility] (SBHLAB)[address] MCH (RBC) [Entitic mass] 28.4 pg Normal 26.0-34.0 [facility] Comment on above: Performed By: #### L [id number] ####Chief Information Officer: FREDRICK KHAN ([id number])[facility] CENTERMaik [facility]SONPRES[facility] (SBHLAB)[address] MCV (RBC) [Entitic vol] 85.8 fL Normal 80.0-98.0 [facility] Comment on above: Performed By: #### L [id number] ####Chief Information Officer: FREDRICK KHAN ([id number])[facility] CENTERMaik [facility] (SBHLAB)[address] [place] [address] [place] Monocytes (Bld) [#/Vol] 0.9 10*3/uL High 0.0-0.8 [facility] Comment on above: Performed By: #### L [id number] ####Chief Information Officer: FREDRICK KHAN ([id number])[facility] (SBHLAB)[address] [place] [address] [place] Monocytes/100 WBC (Bld) 10.6 % High 2.0-10.0 [facility] Comment on above: Performed By: #### L [id number] ####Chief Information Officer: FREDRICK KHAN ([id number])[facility] [place] (SBHLAB)[address] Neutrophils (Bld) [#/Vol] 6.7 10*3/uL Normal 1.8-7.0 [facility] Comment on above: Performed By: #### L [id number] ####Chief Information Officer: FREDRICK BILL ([id number])[facility] [place] (SBHLAB)[address] Neutrophils/100 WBC (Bld) 76.8 % Normal 40.0-80.0 [facility] Comment on above: Performed By: #### L [id number] ####Chief Information Officer: FREDRICKYORDAN KHAN ([id number])[facility] (SBHLAB)[address] NRBC (PER 100 WBCS) BY AUTOMATED COUNT 0.1 /100 WBCs Normal 0.0-2.0 [facility] Comment on above: Performed By: #### L [id number] ####Chief Information Officer: FREDRICK BILL ([id number])[facility] [place] (SBHLAB)[address] Platelet mean volume (Bld) [Entitic vol] 7.3 fL Low 7.4-12.4 [facility] Comment on above: Performed By: #### L [id number] ####Chief Information Officer: FREDRICK RAMOSSATINDER ([id number])[facility]A [facility] (SBHLAB)[address] [place] [address] [place] PLATELETS (10*3/UL) IN BLOOD AUTOMATED COUNT 424 10*3/uL Normal 140-440 [facility] Comment on above: Performed By: #### L [id number] ####Chief Information Officer: FREDRICK MONROYCAROLINA ([id number])[facility]A [place] (SBHLAB)[address] [place] [address] [place] RBC (Bld) [#/Vol] 3.97 10*6/uL Normal 3.8-5.20 [facility] Comment on above: Performed By: #### L [id number] ####Chief Information Officer: FREDRICK RAMOSSATINDER ([id number])[facility] [place] (SBHLAB)[address] WBC (Bld) [#/Vol] 8.7 10*3/uL Normal 3.6-10.7 [facility] Comment on above: Performed By: #### L [id number] ####Chief Information Officer: FREDRICK KHAN ([id number])[facility] [place] (SBHLAB)[address] COMPREHENSIVE METABOLIC PANE Miles 06-26-2023 Albumin [Mass/Vol] 3.3 g/dL Low 3.5-5.0 [facility] Comment on above: Performed By: #### L [id number], LAB17 ####Chief Information Officer: FREDRICK KHAN ([id number])[facility] CENTERMaik [place] (SBHLAB)[address] ALP [Catalytic activity/Vol] 53 U/L Normal 38-126 [facility] Comment on above: Performed By: #### L [id number], LAB17 ####Chief Information Officer: FREDRICK KHAN ([id number])[facility]A [facility]ANPRESBYTER[facility] (SBHLAB)[address] ALT [Catalytic activity/Vol] 14 U/L Normal 0-34 [facility] Comment on above: Performed By: #### L [id number], LAB17 ####Chief Information Officer: FREDRICK KHAN ([id number])[facility] [place] (SBHLAB)[address] Anion gap [Moles/Vol] 1 mmol/L Low 3-13 [facility] Comment on above: Performed By: #### L [id number], LAB17 ####Chief Information Officer: FREDRICK KHAN ([id number])[facility] [place] (SBHLAB)[address] AST [Catalytic activity/Vol] 21 U/L Normal 15-46 [facility] Comment on above: Performed By: #### L [id number], LAB17 ####Chief Information Officer: FREDRICK KHAN ([id number])[facility]ENTERA BARBTR[facility]YN (SBHLAB)[address] Bilirubin [Mass/Vol] 0.4 mg/dL Normal 0.2-1.3 [facility] Comment on above: Performed By: #### L [id number], LAB17 ####Chief Information Officer: FREDRICK KHAN ([id number])[facility]A [facility] (SBHLAB)[address] Calcium [Mass/Vol] 8.6 mg/dL Normal 8.4-10.4 [facility] Comment on above: Performed By: #### L [id number], LAB17 ####Chief Information Officer: FREDRICK KHAN ([id number])[facility]ENTERMaik [place] (SBHLAB)[address] Chloride [Moles/Vol] 101 mmol/L Normal 98-107 [facility] Comment on above: Performed By: #### L [id number], LAB17 ####Chief Information Officer: FREDRICK KHAN ([id number])[facility] (SBHLAB)[address] CO2 [Moles/Vol] 30 mmol/L Normal 22-30 [facility] Comment on above: Performed By: #### L [id number], LAB17 ####Chief Information Officer: FREDRICK KHAN ([id number])[facility] (SBHLAB)[address] Creatinine [Mass/Vol] 0.62 mg/dL Normal 0.52-1.04 [facility] Comment on above: Performed By: #### L [id number], LAB17 ####Chief Information Officer: FREDRICK KHAN ([id number])[facility] (SBHLAB)[address] GLOMERULAR FILTRATION RATE ML/MIN/1.73 SQ M.PREDICTED >90.0 Normal >60.0 [facility] Comment on above: Result Comment: Calc ulation based on the Chronic Kidney Disease Epidemiology Collaboration (CKD-EPI) equation refit without adjustment for race Performed By: #### L AB103, LAB17 ####Chief Information Officer: FREDRICK KHAN ([id number])[facility] [place] (SBHLAB)[address] Glucose [Mass/Vol] 86 mg/dL Normal 70-100 [facility] Comment on above: Performed By: #### L [id number], LAB17 ####Chief Information Officer: FREDRICK KHAN ([id number])[facility] [place] (SBHLAB)[address] Potassium [Moles/Vol] 3.5 mmol/L Normal 3.5-5.1 [facility] Comment on above: Performed By: #### L [id number], LAB17 ####Chief Information Officer: FREDRICK KHAN ([id number])[facility] [place] (SBHLAB)[address] Protein [Mass/Vol] 6.5 g/dL Normal 6.3-8.2 [facility] Comment on above: Performed By: #### L AB103, LAB17 ####Chief Information Officer: FREDRICK KHAN ([id number])[facility] [place] (SBHLAB)[address] Sodium [Moles/Vol] 133 mmol/L Low 135-145 [facility] Comment on above: Performed By: #### L [id number], LAB17 ####Chief Information Officer: FREDRICK KHAN ([id number])[facility] [place] (SBHLAB)[address] [place] [address] [place] Urea nitrogen [Mass/Vol] 4 mg/dL Low 7-17 [facility] Comment on above: Performed By: #### L [id number], LAB17 ####Chief Information Officer: FREDRICK KHAN ([id number])[facility] [place] (SBHLAB)[address] Comprehensive metabolic 1998 panelon 06-26-2023 Albumin [Mass/Vol] 3.3 g/dL Low 3.5 - 5.0 g/dL [facility] ALP [Catalytic activity/Vol] 53 U/L 38 - 126 U/L [facility] ALT [Catalytic activity/Vol] 14 U/L 0 - 34 U/L [facility] Anion gap [Moles/Vol] 1 mmol/L Low 3 - 13 mmol/L [facility] AST [Catalytic activity/Vol] 21 U/L 15 - 46 U/L [facility] Bilirubin [Mass/Vol] 0.4 mg/dL 0.2 - 1 .3 mg/dL [facility] Calcium [Mass/Vol] 8.6 mg/dL 8.4 - 10. 4 mg/dL [facility] Chloride [Moles/Vol] 101 mmol/L 98 - 10 7 mmol/L [facility] CO2 [Moles/Vol] 30 mmol/L 22 - 30 mmol/L [facility] Creatinine [Mass/Vol] 0.62 mg/dL 0.52 - 1.04 mg/dL [facility] GFR/1.73 sq M.predicted MDRD (S/P/Bld) [Vol rate/Area] - PINF [facility] Comment on above: Calculation based on the Chronic Kidney Disease Epidemiology Collaboration (CKD-EPI) equation refit without adjustment for race Glucose [Mass/Vol] 86 mg/dL 70 - 100 mg/dL [facility] Interpretation and review of laboratory results Abnormal [facility] Potassium [Moles/Vol] 3.5 mmol/L 3.5 - 5.1 mmol/L [facility] Protein [Mass/Vol] 6.5 g/dL 6.3 - 8.2 g/dL [facility] Sodium [Moles/Vol] 133 mmol/L Low 135 - 145 mmol/L [facility] Urea nitrogen [Mass/Vol] 4 mg/dL Low 7 - 17 mg/dL [facility] Consulton 06-26-2023 Consult Normal [facility] Laboratory - Chemistry and C hemistry - challengeon 06-26-2023 Magnesium [Mass/Vol] 1.9 mg/dL 1.6 - 2 .3 mg/dL [facility] MAGNESIUMon 06-26-2023 Magnesium [Mass/Vol] 1.9 mg/dL Normal 1.6-2.3 [facility] Comment on above: Performed By: #### L [id number], LAB17 ####Chief Information Officer: FREDRICK KHAN ([id number])[facility] (SBHLAB)[address] [place] [address] Magnesium [Mass/Vol]on 06-26 Interpretation and review of laboratory results Normal [facility] Progress Noteon 06-26-2023 Progress Note Normal [facility] CARECOORDon 06-25-2023 CAR[place]OORD Normal [facility] CBC W Auto Differential pane l (Bld)Ordered By: Bert Gutierres on 06-25-2023 Basophils (Bld) [#/Vol] 0.1 10*3/uL 0.0 - 0.2 10*3/uL [facility] Basophils/100 WBC (Bld) 1.1 % 0.0 - 2.0 % [facility] Eosinophils (Bld) [#/Vol] 0.1 10*3/uL 0.0 - 0.5 10*3/uL [facility] Eosinophils/100 WBC (Bld) 1.8 % 1.0 - 6.0 % [facility] Erythrocyte distribution width (RBC) [Ratio] 15.8 % High 11.5 - 14.5 % [facility] Hematocrit (Bld) [Volume fraction] 32.8 % Low 35.0 - 47.0 % [facility] Hemoglobin (Bld) [Mass/Vol] 11.1 g/dL Low 11.7 - 16.0 g/dL [facility] Interpretation and review of laboratory results Abnormal [facility] Lymphocytes (Bld) [#/Vol] 1.4 10*3/uL 1.0 - 4.3 10*3/uL [facility] Lymphocytes/100 WBC (Bld) 20.3 % 20.0 - 40.0 % [facility] MCH (RBC) [Entitic mass] 29.2 pg 26.0 - 34.0 pg [facility] MCHC (RBC) [Mass/Vol] 33.9 % 32.0 - 36.0 % [facility] MCV (RBC) [Entitic vol] 86.2 fL 80.0 - 98.0 fL [facility] Monocytes (Bld) [#/Vol] 0.9 10*3/uL High 0.0 - 0.8 10*3/uL [facility] Monocytes/100 WBC (Bld) 12.9 % High 2.0 - 10.0 % [facility] Neutrophils (Bld) [#/Vol] 4.5 10*3/uL 1.8 - 7.0 10*3/uL [facility] Neutrophils/100 WBC (Bld) 63.9 % 40.0 - 80.0 % [facility] Nucleated RBC/100 WBC (Bld) [Ratio] 0.0 % [facility] Platelet mean volume (Bld) [Entitic vol] 7.4 fL 7.4 - 12.4 fL [facility] Platelets (Bld) [#/Vol] 392 10*3/uL 140 - 440 10*3/uL [facility] RBC (Bld) [#/Vol] 3.81 10*6/uL 3.8 - 5.20 10*6/uL [facility] WBC (Bld) [#/Vol] 7.1 10*3/uL 3.6 - 10.7 10*3/uL [facility] CBC WITH AUTO DIFFERENTIALon 06-25-2023 Basophils (Bld) [#/Vol] 0.1 10*3/uL Normal 0.0-0.2 [facility] Comment on above: Performed By: #### L [id number] ####Chief Information Officer: FREDRICK KHAN ([phone])[facility] (SB[facility])[address] Basophils/100 WBC (Bld) 1.1 % Normal 0.0-2.0 [facility] Comment on above: Performed By: #### L [id number] ####Chief Information Officer: FREDRICK KHAN ([phone])[facility] [place] (SBHLAB)[address] [place] [address] [place] Eosinophils (Bld) [#/Vol] 0.1 10*3/uL Normal 0.0-0.5 [facility] Comment on above: Performed By: #### L [id number] ####Chief Information Officer: FREDRICK KHAN ([id number])[facility] [place] (SBHLAB)[address] [place] [address] [place] Eosinophils/100 WBC (Bld) 1.8 % Normal 1.0-6.0 [facility] Comment on above: Performed By: #### L [id number] ####Chief Information Officer: FREDRICK KHAN ([id number])[facility] [place] (SBHLAB)[address] Erythrocyte distribution width (RBC) [Ratio] 15.8 % High 11.5-14.5 [facility] Comment on above: Performed By: #### L [id number] ####Chief Information Officer: FREDRICK RAMOSSATINDER ([id number])[facility] (SBHLAB)[address] ERYTHROCYTE MEAN CORPUSCULAR HEMOGLOBIN CONCENTRATION (G/DL) BY AUTOMATED 33.9 % Normal 32.0-36.0 [facility] Comment on above: Performed By: #### L [id number] ####Chief Information Officer: FREDRICK KHAN ([id number])[facility] [place] (SBHLAB)[address] Hematocrit (Bld) [Volume fraction] 32.8 % Low 35.0-47.0 [facility] Comment on above: Performed By: #### L [id number] ####Chief Information Officer: FREDRICK KHAN ([id number])[facility] (SBHLAB)[address] [place] [address] Hemoglobin (Bld) [Mass/Vol] 11.1 g/dL Low 11.7-16.0 [facility] Comment on above: Performed By: #### L [id number] ####Chief Information Officer: FREDRICK KHAN ([id number])[facility] (SBHLAB)[address] Lymphocytes (Bld) [#/Vol] 1.4 10*3/uL Normal 1.0-4.3 [facility] Comment on above: Performed By: #### L [id number] ####Chief Information Officer: FREDRICK KHAN ([id number])[facility] (SBHLAB)[address] Lymphocytes/100 WBC (Bld) 20.3 % Normal 20.0-40.0 [facility] Comment on above: Performed By: #### L [id number] ####Chief Information Officer: FREDRICK RAMOSSATINDER ([id number])[facility] [place] (SBHLAB)[address] MCH (RBC) [Entitic mass] 29.2 pg Normal 26.0-34.0 [facility] Comment on above: Performed By: #### L [id number] ####Chief Information Officer: FREDRICK MONROYCAROLINA ([id number])[facility] [place] (SBHLAB)[address] MCV (RBC) [Entitic vol] 86.2 fL Normal 80.0-98.0 [facility] Comment on above: Performed By: #### L [id number] ####Chief Information Officer: FREDRICK KHAN ([id number])[facility] [place] (SBHLAB)[address] Monocytes (Bld) [#/Vol] 0.9 10*3/uL High 0.0-0.8 [facility] Comment on above: Performed By: #### L [id number] ####Chief Information Officer: FREDRICK RAMOSSATINDER ([id number])[facility] [place] (SBHLAB)[address] Monocytes/100 WBC (Bld) 12.9 % High 2.0-10.0 [facility] Comment on above: Performed By: #### L [id number] ####Chief Information Officer: FREDRICK RAMOSSATINDER ([id number])[facility] [place] (SBHLAB)[address] Neutrophils (Bld) [#/Vol] 4.5 10*3/uL Normal 1.8-7.0 [facility] Comment on above: Performed By: #### L [id number] ####Chief Information Officer: FREDRICK KHAN ([id number])[facility] [place] (SBHLAB)[address] Neutrophils/100 WBC (Bld) 63.9 % Normal 40.0-80.0 [facility] Comment on above: Performed By: #### L [id number] ####Chief Information Officer: FREDRICK KHAN ([id number])[facility] [place] (SBHLAB)[address] NRBC (PER 100 WBCS) BY AUTOMATED COUNT 0.0 /100 WBCs Normal 0.0-2.0 [facility] Comment on above: Performed By: #### L [id number] ####Chief Information Officer: FREDRICK KHAN ([id number])[facility] (SBHLAB)[address] Platelet mean volume (Bld) [Entitic vol] 7.4 fL Normal 7.4-12.4 [facility] Comment on above: Performed By: #### L [id number] ####Chief Information Officer: FREDRICK KHAN ([id number])[facility] (SBHLAB)[address] [place] [address] [place] PLATELETS (10*3/UL) IN BLOOD AUTOMATED COUNT 392 10*3/uL Normal 140-440 [facility] Comment on above: Performed By: #### L [id number] ####Chief Information Officer: FREDRICK KHAN ([id number])[facility] ([facility])[address] RBC (Bld) [#/Vol] 3.81 10*6/uL Normal 3.8-5.20 [facility] Comment on above: Performed By: #### L [id number] ####Chief Information Officer: FREDRICK KHAN ([id number])[facility] (SBHLAB)[address] [place] [address] [place] WBC (Bld) [#/Vol] 7.1 10*3/uL Normal 3.6-10.7 [facility] Comment on above: Performed By: #### L [id number] ####Chief Information Officer: FREDRICK KHAN ([id number])[facility] [place] (SBHLAB)[address] COMPREHENSIVE METABOLIC PANE Miles 06-25-2023 Albumin [Mass/Vol] 3.1 g/dL Low 3.5-5.0 [facility] Comment on above: Performed By: #### L [id number] ####Chief Information Officer: FREDRICK KHAN ([id number])[facility] [place] (SBHLAB)[address] ALP [Catalytic activity/Vol] 55 U/L Normal 38-126 [facility] Comment on above: Performed By: #### L [id number] ####Chief Information Officer: FREDRICK KHAN ([id number])[facility] [place] (SB[facility]AB)[address] ALT [Catalytic activity/Vol] 13 U/L Normal 0-34 [facility] Comment on above: Performed By: #### L [id number] ####Chief Information Officer: FREDRICK KHAN ([id number])[facility] [place] (SBHLAB)[address] Anion gap [Moles/Vol] 6 mmol/L Normal 3-13 [facility] Comment on above: Performed By: #### L [id number] ####Chief Information Officer: FREDRICK KHAN ([id number])[facility] [place] (SBHLAB)[address] AST [Catalytic activity/Vol] 18 U/L Normal 15-46 [facility] Comment on above: Performed By: #### L [id number] ####Chief Information Officer: FREDRICK KHAN ([id number])[facility] [place] (SBHLAB)[address] Bilirubin [Mass/Vol] 0.2 mg/dL Normal 0.2-1.3 [facility] Comment on above: Performed By: #### L [id number] ####Chief Information Officer: FREDRICK KHAN ([id number])[facility] [place] (SBHLAB)[address] Calcium [Mass/Vol] 8.7 mg/dL Normal 8.4-10.4 [facility] Comment on above: Performed By: #### L [id number] ####Chief Information Officer: FREDRICK KHAN ([id number])[facility]BY[facility] CENTERDinehs (SBHLAB)[address] Chloride [Moles/Vol] 106 mmol/L Normal 98-107 [facility] Comment on above: Performed By: #### L [id number] ####Chief Information Officer: FREDRICK KHAN ([id number])[facility] (SBHLAB)[address] CO2 [Moles/Vol] 25 mmol/L Normal 22-30 [facility] Comment on above: Performed By: #### L [id number] ####Chief Information Officer: FREDRICK KHAN ([id number])[facility] (SB[facility])[address] Creatinine [Mass/Vol] 0.64 mg/dL Normal 0.52-1.04 [facility] Comment on above: Performed By: #### L [id number] ####Chief Information Officer: FREDRICK KHAN ([id number])[facility] GLOMERULAR FILTRATION RATE ML/MIN/1.73 SQ M.PREDICTED >90.0 Normal >60.0 [facility] Comment on above: Result Comment: Calc ulation based on the Chronic Kidney Disease Epidemiology Collaboration (CKD-EPI) equation refit without adjustment for race Performed By: #### L [id number] ####Chief Information Officer: FREDRICK KHAN ([id number])[facility] (SBHLAB)[address] [place] [address] [place] Glucose [Mass/Vol] 94 mg/dL Normal 70-100 [facility] Comment on above: Performed By: #### L [id number] ####Chief Information Officer: FREDRICK KHAN ([id number])[facility] Potassium [Moles/Vol] 3.9 mmol/L Normal 3.5-5.1 [facility] Comment on above: Performed By: #### L [id number] ####Chief Information Officer: FREDRICK KHAN ([id number])[facility] (SBHLAB)[address] Protein [Mass/Vol] 6.1 g/dL Low 6.3-8.2 [facility] Comment on above: Performed By: #### L [id number] ####Chief Information Officer: FREDRICK KHAN ([id number])[facility] (SBHLAB)[address] Sodium [Moles/Vol] 137 mmol/L Normal 135-145 [facility] Comment on above: Performed By: #### L [id number] ####Chief Information Officer: FREDRICK KHAN ([id number])[facility] (SBHLAB)[address] Urea nitrogen [Mass/Vol] 4 mg/dL Low 7-17 [facility] Comment on above: Performed By: #### L AB17 ####Chief Information Officer: FREDRICK KHAN ([id number])[facility] ([facility])[address] Comprehensive metabolic 1998 panelon 06-25-2023 Albumin [Mass/Vol] 3.1 g/dL Low 3.5 - 5.0 g/dL [facility] ALP [Catalytic activity/Vol] 55 U/L 38 - 126 U/L [facility] ALT [Catalytic activity/Vol] 13 U/L 0 - 34 U/L [facility] Anion gap [Moles/Vol] 6 mmol/L 3 - 13 mmol/L [facility] AST [Catalytic activity/Vol] 18 U/L 15 - 46 U/L [facility] Bilirubin [Mass/Vol] 0.2 mg/dL 0.2 - 1 .3 mg/dL [facility] Calcium [Mass/Vol] 8.7 mg/dL 8.4 - 10. 4 mg/dL [facility] Chloride [Moles/Vol] 106 mmol/L 98 - 10 7 mmol/L [facility] CO2 [Moles/Vol] 25 mmol/L 22 - 30 mmol/L [facility] Creatinine [Mass/Vol] 0.64 mg/dL 0.52 - 1.04 mg/dL [facility] GFR/1.73 sq M.predicted MDRD (S/P/Bld) [Vol rate/Area] - PINF [facility] Comment on above: Calculation based on the Chronic Kidney Disease Epidemiology Collaboration (CKD-EPI) equation refit without adjustment for race Glucose [Mass/Vol] 94 mg/dL 70 - 100 mg/dL [facility] Interpretation and review of laboratory results Abnormal [facility] Potassium [Moles/Vol] 3.9 mmol/L 3.5 - 5.1 mmol/L [facility] Protein [Mass/Vol] 6.1 g/dL Low 6.3 - 8.2 g/dL [facility] Sodium [Moles/Vol] 137 mmol/L 135 - 145 mmol/L [facility] Urea nitrogen [Mass/Vol] 4 mg/dL Low 7 - 17 mg/dL [facility] Progress Noteon 06-25-2023 Progress Note Normal [facility] Progress Note Normal [facility] Progress Note Nutrition note -dislikes Ensure clear - will discontinue . Full note to follow . Normal [facility] CBC W Auto Differential pane l (Bld)Ordered By: Thu Parsons on 06-24-2023 Basophils (Bld) [#/Vol] 0.1 10*3/uL 0.0 - 0.2 10*3/uL [facility] Basophils/100 WBC (Bld) 0.7 % 0.0 - 2.0 % [facility] Eosinophils (Bld) [#/Vol] 0.1 10*3/uL 0.0 - 0.5 10*3/uL [facility] Eosinophils/100 WBC (Bld) 1.5 % 1.0 - 6.0 % [facility] Erythrocyte distribution width (RBC) [Ratio] 16.0 % High 11.5 - 14.5 % [facility] Hematocrit (Bld) [Volume fraction] 35.7 % 35.0 - 47.0 % [facility] Hemoglobin (Bld) [Mass/Vol] 12.1 g/dL 11.7 - 16.0 g/dL [facility] Interpretation and review of laboratory results Abnormal [facility] Lymphocytes (Bld) [#/Vol] 1.4 10*3/uL 1.0 - 4.3 10*3/uL [facility] Lymphocytes/100 WBC (Bld) 15.3 % Low 20.0 - 40.0 % [facility] MCH (RBC) [Entitic mass] 29.3 pg 26.0 - 34.0 pg [facility] MCHC (RBC) [Mass/Vol] 33.8 % 32.0 - 36.0 % [facility] MCV (RBC) [Entitic vol] 86.6 fL 80.0 - 98.0 fL [facility] Monocytes (Bld) [#/Vol] 1.0 10*3/uL High 0.0 - 0.8 10*3/uL [facility] Monocytes/100 WBC (Bld) 10.7 % High 2.0 - 10.0 % [facility] Neutrophils (Bld) [#/Vol] 6.8 10*3/uL 1.8 - 7.0 10*3/uL [facility] Neutrophils/100 WBC (Bld) 71.8 % 40.0 - 80.0 % [facility] Nucleated RBC/100 WBC (Bld) [Ratio] 0.0 % [facility] Platelet mean volume (Bld) [Entitic vol] 7.3 fL Low 7.4 - 12.4 fL [facility] Platelets (Bld) [#/Vol] 428 10*3/uL 140 - 440 10*3/uL [facility] RBC (Bld) [#/Vol] 4.12 10*6/uL 3.8 - 5.20 10*6/uL [facility] WBC (Bld) [#/Vol] 9.4 10*3/uL 3.6 - 10.7 10*3/uL [facility] CBC WITH AUTO DIFFERENTIALon 06-24-2023 Basophils (Bld) [#/Vol] 0.1 10*3/uL Normal 0.0-0.2 [facility] Comment on above: Performed By: #### L [id number] ####Chief Information Officer: FREDRICK KHAN ([id number])[facility] (SBAB)[address] Basophils/100 WBC (Bld) 0.7 % Normal 0.0-2.0 [facility] Comment on above: Performed By: #### L [id number] ####Chief Information Officer: FREDRICK KHAN ([id number])[facility] [place] (SBHLAB)[address] Eosinophils (Bld) [#/Vol] 0.1 10*3/uL Normal 0.0-0.5 [facility] Comment on above: Performed By: #### L [id number] ####Chief Information Officer: FREDRICK KHAN ([id number])[facility] [place] (SBHLAB)[address] Eosinophils/100 WBC (Bld) 1.5 % Normal 1.0-6.0 [facility] Comment on above: Performed By: #### L [id number] ####Chief Information Officer: FREDRICK KHAN ([id number])[facility] [place] (SB[facility]AB)[address] Erythrocyte distribution width (RBC) [Ratio] 16.0 % High 11.5-14.5 [facility] Comment on above: Performed By: #### L [id number] ####Chief Information Officer: FREDRICK KHAN ([id number])[facility] [place] (SBHLAB)[address] [place] [address] ERYTHROCYTE MEAN CORPUSCULAR HEMOGLOBIN CONCENTRATION (G/DL) BY AUTOMATED 33.8 % Normal 32.0-36.0 [facility] Comment on above: Performed By: #### L [id number] ####Chief Information Officer: FREDRICK KHAN ([id number])[facility] [place] (SBHLAB)[address] Hematocrit (Bld) [Volume fraction] 35.7 % Normal 35.0-47.0 [facility] Comment on above: Performed By: #### L [id number] ####Chief Information Officer: FREDRICK KHAN ([id number])[facility] [place] (SBHLAB)[address] [place] [address] Hemoglobin (Bld) [Mass/Vol] 12.1 g/dL Normal 11.7-16.0 [facility] Comment on above: Performed By: #### L [id number] ####Chief Information Officer: FREDRICK KHAN ([id number])[facility] (SBHLAB)[address] [place] [address] Lymphocytes (Bld) [#/Vol] 1.4 10*3/uL Normal 1.0-4.3 [facility] Comment on above: Performed By: #### L [id number] ####Chief Information Officer: FREDRICK KHAN ([id number])[facility] [place] [address] Lymphocytes/100 WBC (Bld) 15.3 % Low 20.0-40.0 [facility] Comment on above: Performed By: #### L [id number] ####Chief Information Officer: FREDRICK KHAN ([id number])[facility] [place] [address] MCH (RBC) [Entitic mass] 29.3 pg Normal 26.0-34.0 [facility] Comment on above: Performed By: #### L [id number] ####Chief Information Officer: FREDRICK KHAN ([id number])[facility] (SBAB)[address] [place] [address] MCV (RBC) [Entitic vol] 86.6 fL Normal 80.0-98.0 [facility] Comment on above: Performed By: #### L [id number] ####Chief Information Officer: FREDRICK KHAN ([id number])[facility] (SBAB)[address] [place] [address] Monocytes (Bld) [#/Vol] 1.0 10*3/uL High 0.0-0.8 [facility] Comment on above: Performed By: #### L [id number] ####Chief Information Officer: FREDRICK KHAN ([id number])[facility] [place] (SBHLAB)[address] [place] [address] [place] Monocytes/100 WBC (Bld) 10.7 % High 2.0-10.0 [facility] Comment on above: Performed By: #### L [id number] ####Chief Information Officer: FREDRICK KHAN ([id number])[facility] [place] (SBHLAB)[address] Neutrophils (Bld) [#/Vol] 6.8 10*3/uL Normal 1.8-7.0 [facility] Comment on above: Performed By: #### L [id number] ####Chief Information Officer: FREDRICK KHAN ([id number])[facility] [place] (SB[facility])[address] Neutrophils/100 WBC (Bld) 71.8 % Normal 40.0-80.0 [facility] Comment on above: Performed By: #### L [id number] ####Chief Information Officer: FREDRICK KHAN ([id number])[facility] [place] (SBHLAB)[address] [place] [address] [place] NRBC (PER 100 WBCS) BY AUTOMATED COUNT 0.0 /100 WBCs Normal 0.0-2.0 [facility] Comment on above: Performed By: #### L [id number] ####Chief Information Officer: FREDRICK KHAN ([id number])[facility] [place] (SBHLAB)[address] [place] [address] [place] Platelet mean volume (Bld) [Entitic vol] 7.3 fL Low 7.4-12.4 [facility] Comment on above: Performed By: #### L [id number] ####Chief Information Officer: FREDRICK KHAN ([id number])[facility] [place] (SBHLAB)[address] [place] [address] [place] PLATELETS (10*3/UL) IN BLOOD AUTOMATED COUNT 428 10*3/uL Normal 140-440 [facility] Comment on above: Performed By: #### L [id number] ####Chief Information Officer: FREDRICK KHAN ([id number])[facility] [place] (SBHLAB)[address] RBC (Bld) [#/Vol] 4.12 10*6/uL Normal 3.8-5.20 [facility] Comment on above: Performed By: #### L [id number] ####Chief Information Officer: FREDRICK KHAN ([id number])[facility] [place] (SBHLAB)[address] WBC (Bld) [#/Vol] 9.4 10*3/uL Normal 3.6-10.7 [facility] Comment on above: Performed By: #### L [id number] ####Chief Information Officer: FREDRICK KHAN ([id number])[facility] [place] (SBHLAB)[address] COMPREHENSIVE METABOLIC PANE Miles 06-24-2023 Albumin [Mass/Vol] 3.3 g/dL Low 3.5-5.0 [facility] Comment on above: Performed By: #### L [id number] ####Chief Information Officer: FREDRICK KHAN ([id number])[facility] [place] (SB[facility]AB)[address] ALP [Catalytic activity/Vol] 56 U/L Normal 38-126 [facility] Comment on above: Performed By: #### L [id number] ####Chief Information Officer: FREDRICK KHAN ([id number])[facility] (SBHLAB)[address] ALT [Catalytic activity/Vol] 14 U/L Normal 0-34 [facility] Comment on above: Performed By: #### L [id number] ####Chief Information Officer: FREDRICK KHAN ([id number])[facility] (SBHLAB)[address] Anion gap [Moles/Vol] 2 mmol/L Low 3-13 [facility] Comment on above: Performed By: #### L [id number] ####Chief Information Officer: FREDRICK KHAN ([id number])[facility] [place] (SBHLAB)[address] [place] [address] [place] AST [Catalytic activity/Vol] 19 U/L Normal 15-46 [facility] Comment on above: Performed By: #### L AB17 ####Chief Information Officer: FREDRICK KHAN ([id number])[facility] [place] (SB[facility])[address] Bilirubin [Mass/Vol] 0.2 mg/dL Normal 0.2-1.3 [facility] Comment on above: Performed By: #### L AB17 ####Chief Information Officer: FREDRICK KHAN ([id number])[facility] [place] (SBHLAB)[address] Calcium [Mass/Vol] 8.4 mg/dL Normal 8.4-10.4 [facility] Comment on above: Performed By: #### L [id number] ####Chief Information Officer: FREDRICK KHAN ([id number])[facility] [place] (SBHLAB)[address] [place] [address] [place] Chloride [Moles/Vol] 105 mmol/L Normal 98-107 [facility] Comment on above: Performed By: #### L [id number] ####Chief Information Officer: FREDRICK KHAN ([id number])[facility] [place] (SBHLAB)[address] [place] [address] [place] CO2 [Moles/Vol] 25 mmol/L Normal 22-30 [facility] Comment on above: Performed By: #### L [id number] ####Chief Information Officer: FREDRICK KHAN ([id number])[facility] [place] (SBHLAB)[address] [place] [address] [place] Creatinine [Mass/Vol] 0.66 mg/dL Normal 0.52-1.04 [facility] Comment on above: Performed By: #### L AB17 ####Chief Information Officer: FREDRICK KHAN ([id number])[facility] [place] (SB[facility])[address] GLOMERULAR FILTRATION RATE ML/MIN/1.73 SQ M.PREDICTED >90.0 Normal >60.0 [facility] Comment on above: Result Comment: Calc ulation based on the Chronic Kidney Disease Epidemiology Collaboration (CKD-EPI) equation refit without adjustment for race Performed By: #### L AB17 ####Chief Information Officer: FREDRICK KHAN ([id number])[facility] [place] (SB[facility])[address] Glucose [Mass/Vol] 103 mg/dL High 70-100 [facility] Comment on above: Performed By: #### L AB17 ####Chief Information Officer: FREDRICK KHAN ([id number])[facility] [place] (SB[facility])[address] Potassium [Moles/Vol] 3.7 mmol/L Normal 3.5-5.1 [facility] Comment on above: Performed By: #### L AB17 ####Chief Information Officer: FREDRICK KHAN ([id number])[facility] [place] (SB[facility])[address] Protein [Mass/Vol] 6.5 g/dL Normal 6.3-8.2 [facility] Comment on above: Performed By: #### L AB17 ####Chief Information Officer: FREDRICK KHAN ([id number])[facility] [place] (SB[facility])[address] [place] [address] [place] Sodium [Moles/Vol] 132 mmol/L Low 135-145 [facility] Comment on above: Performed By: #### L AB17 ####Chief Information Officer: FREDRICK KHAN ([id number])[facility] [place] (SB[facility]AB)[address] [place] [address] [place] Urea nitrogen [Mass/Vol] 10 mg/dL Normal 7-17 [facility] Comment on above: Performed By: #### L AB17 ####Chief Information Officer: FREDRICK KHAN ([id number])[facility] [place] ([facility])[address] [place] [id number] [facility] Comprehensive metabolic 1998 panelon 06-24-2023 Albumin [Mass/Vol] 3.3 g/dL Low 3.5 - 5.0 g/dL [facility] ALP [Catalytic activity/Vol] 56 U/L 38 - 126 U/L [facility] ALT [Catalytic activity/Vol] 14 U/L 0 - 34 U/L [facility] Anion gap [Moles/Vol] 2 mmol/L Low 3 - 13 mmol/L [facility] AST [Catalytic activity/Vol] 19 U/L 15 - 46 U/L [facility] Bilirubin [Mass/Vol] 0.2 mg/dL 0.2 - 1 .3 mg/dL [facility] Calcium [Mass/Vol] 8.4 mg/dL 8.4 - 10. 4 mg/dL [facility] Chloride [Moles/Vol] 105 mmol/L 98 - 10 7 mmol/L [facility] CO2 [Moles/Vol] 25 mmol/L 22 - 30 mmol/L [facility] Creatinine [Mass/Vol] 0.66 mg/dL 0.52 - 1.04 mg/dL [facility] GFR/1.73 sq M.predicted MDRD (S/P/Bld) [Vol rate/Area] - PINF [facility] Comment on above: Calculation based on the Chronic Kidney Disease Epidemiology Collaboration (CKD-EPI) equation refit without adjustment for race Glucose [Mass/Vol] 103 mg/dL High 70 - 100 mg/dL [facility] Interpretation and review of laboratory results Abnormal [facility] Potassium [Moles/Vol] 3.7 mmol/L 3.5 - 5.1 mmol/L [facility] Protein [Mass/Vol] 6.5 g/dL 6.3 - 8.2 g/dL [facility] Sodium [Moles/Vol] 132 mmol/L Low 135 - 145 mmol/L [facility] Urea nitrogen [Mass/Vol] 10 mg/dL 7 - 17 mg/dL [facility] IDNon 06-24-2023 IDN Normal [facility]S Progress Noteon 06-24-2023 Progress Note Normal [facility] CBC W Auto Differential pane l (Bld)Ordered By: Modesta Cash on 06-23-2023 Basophils (Bld) [#/Vol] 0.1 10*3/uL 0.0 - 0.2 10*3/uL [facility] Basophils/100 WBC (Bld) 0.8 % 0.0 - 2.0 % [facility] Eosinophils (Bld) [#/Vol] 0.1 10*3/uL 0.0 - 0.5 10*3/uL [facility] Eosinophils/100 WBC (Bld) 0.9 % Low 1.0 - 6.0 % [facility] Erythrocyte distribution width (RBC) [Ratio] 16.0 % High 11.5 - 14.5 % [facility] Hematocrit (Bld) [Volume fraction] 40.7 % 35.0 - 47.0 % [facility] Hemoglobin (Bld) [Mass/Vol] 13.8 g/dL 11.7 - 16.0 g/dL [facility] Interpretation and review of laboratory results Abnormal [facility] Lymphocytes (Bld) [#/Vol] 1.4 10*3/uL 1.0 - 4.3 10*3/uL [facility] Lymphocytes/100 WBC (Bld) 11.9 % Low 20.0 - 40.0 % [facility] MCH (RBC) [Entitic mass] 29.2 pg 26.0 - 34.0 pg [facility] MCHC (RBC) [Mass/Vol] 33.8 % 32.0 - 36.0 % [facility] MCV (RBC) [Entitic vol] 86.2 fL 80.0 - 98.0 fL [facility] Monocytes (Bld) [#/Vol] 0.9 10*3/uL High 0.0 - 0.8 10*3/uL [facility] Monocytes/100 WBC (Bld) 7.9 % 2.0 - 10.0 % [facility] Neutrophils (Bld) [#/Vol] 9.3 10*3/uL High 1.8 - 7.0 10*3/uL [facility] Neutrophils/100 WBC (Bld) 78.5 % 40.0 - 80.0 % [facility] Nucleated RBC/100 WBC (Bld) [Ratio] 0.0 % [facility] Platelet mean volume (Bld) [Entitic vol] 7.5 fL 7.4 - 12.4 fL [facility] Platelets (Bld) [#/Vol] 457 10*3/uL High 140 - 440 10*3/uL [facility] RBC (Bld) [#/Vol] 4.73 10*6/uL 3.8 - 5.20 10*6/uL [facility] WBC (Bld) [#/Vol] 11.9 10*3/uL High 3.6 - 10.7 10*3/uL [facility] CBC WITH AUTO DIFFERENTIALon 06-23-2023 Basophils (Bld) [#/Vol] 0.1 10*3/uL Normal 0.0-0.2 [facility] Comment on above: Performed By: #### L [id number] ####Chief Information Officer: FREDRICK KHAN ([id number])[facility] [place] (SBHLAB)[address] Basophils/100 WBC (Bld) 0.8 % Normal 0.0-2.0 [facility] Comment on above: Performed By: #### L [id number] ####Chief Information Officer: FREDRICK KHAN ([id number])[facility] [place] (SBHLAB)[address] Eosinophils (Bld) [#/Vol] 0.1 10*3/uL Normal 0.0-0.5 [facility] Comment on above: Performed By: #### L [id number] ####Chief Information Officer: FREDRICK KHAN ([phone])[facility] [place] (SBHLAB)[address] [place] [address] Eosinophils/100 WBC (Bld) 0.9 % Low 1.0-6.0 [facility] Comment on above: Performed By: #### L [id number] ####Chief Information Officer: FREDRICK KHAN ([id number])[facility] [place] (SBHLAB)[address] Erythrocyte distribution width (RBC) [Ratio] 16.0 % High 11.5-14.5 [facility] Comment on above: Performed By: #### L [id number] ####Chief Information Officer: FREDRICK KHAN ([id number])[facility] [place] (SBHLAB)[address] [place] [address] ERYTHROCYTE MEAN CORPUSCULAR HEMOGLOBIN CONCENTRATION (G/DL) BY AUTOMATED 33.8 % Normal 32.0-36.0 [facility] Comment on above: Performed By: #### L [id number] ####Chief Information Officer: FREDRICK KHAN ([id number])[facility] [place] (SBHLAB)[address] Hematocrit (Bld) [Volume fraction] 40.7 % Normal 35.0-47.0 [facility] Comment on above: Performed By: #### L [id number] ####Chief Information Officer: FREDRICK KHAN ([id number])[facility] [place] (SBHLAB)[address] Hemoglobin (Bld) [Mass/Vol] 13.8 g/dL Normal 11.7-16.0 [facility] Comment on above: Performed By: #### L [id number] ####Chief Information Officer: FREDRICK KHAN ([phone])[facility] [place] (SBHLAB)[address] [place] [address] Lymphocytes (Bld) [#/Vol] 1.4 10*3/uL Normal 1.0-4.3 [facility] Comment on above: Performed By: #### L [id number] ####Chief Information Officer: FREDRICK KHAN ([id number])[facility] [place] (SBHLAB)[address] [place] [address] Lymphocytes/100 WBC (Bld) 11.9 % Low 20.0-40.0 [facility] Comment on above: Performed By: #### L [id number] ####Chief Information Officer: FREDRICK KHAN ([id number])[facility] [place] (SB[facility]AB)[address] MCH (RBC) [Entitic mass] 29.2 pg Normal 26.0-34.0 [facility] Comment on above: Performed By: #### L [id number] ####Chief Information Officer: FREDRICK KHAN ([id number])[facility] [place] (SBHLAB)[address] MCV (RBC) [Entitic vol] 86.2 fL Normal 80.0-98.0 [facility] Comment on above: Performed By: #### L [id number] ####Chief Information Officer: FREDRICK KHAN ([id number])[facility] [place] (SBHLAB)[address] Monocytes (Bld) [#/Vol] 0.9 10*3/uL High 0.0-0.8 [facility] Comment on above: Performed By: #### L [id number] ####Chief Information Officer: FREDRICK KHAN ([id number])[facility] [place] (SBHLAB)[address] Monocytes/100 WBC (Bld) 7.9 % Normal 2.0-10.0 [facility] Comment on above: Performed By: #### L [id number] ####Chief Information Officer: FREDRICK KHAN ([id number])[facility] [place] (SBHLAB)[address] [place] [address] [place] Neutrophils (Bld) [#/Vol] 9.3 10*3/uL High 1.8-7.0 [facility] Comment on above: Performed By: #### L [id number] ####Chief Information Officer: FREDRICK KHAN ([id number])[facility] [place] (SBHLAB)[address] Neutrophils/100 WBC (Bld) 78.5 % Normal 40.0-80.0 [facility] Comment on above: Performed By: #### L [id number] ####Chief Information Officer: FREDRICK KHAN ([id number])[facility] [place] (SBHLAB)[address] [place] [address] [place] NRBC (PER 100 WBCS) BY AUTOMATED COUNT 0.0 /100 WBCs Normal 0.0-2.0 [facility] Comment on above: Performed By: #### L [id number] ####Chief Information Officer: FREDRICK [id number])[facility]ENTERMaik BATISTADinesh (SBHLAB)[address] Platelet mean volume (Bld) [Entitic vol] 7.5 fL Normal 7.4-12.4 [facility] Comment on above: Performed By: #### L [id number] ####Chief Information Officer: FREDRICK KHAN ([id number])[facility] CENTERMaik HINSONPRESBYTERIAN S[facility]ERN (SBHLAB)[address] PLATELETS (10*3/UL) IN BLOOD AUTOMATED COUNT 457 10*3/uL High 140-440 [facility] Comment on above: Performed By: #### L [id number] ####Chief Information Officer: FREDRICK KHAN ([id number])[facility]ENTERMaik HINSONPRESBYTERIAN SANT[facility] CENTERN (SBHLAB)[address] [place] [address] RBC (Bld) [#/Vol] 4.73 10*6/uL Normal 3.8-5.20 [facility] Comment on above: Performed By: #### L [id number] ####Chief Information Officer: FREDRICK KHAN ([id number])[facility]ENTERMaik [place] (SBHLAB)[address] WBC (Bld) [#/Vol] 11.9 10*3/uL High 3.6-10.7 [facility] Comment on above: Performed By: #### L [id number] ####Chief Information Officer: FREDRICK KHAN ([id number])[facility]ENTERMaik [facility] CENTERDinesh (SBHLAB)[address] COMPLETE URINALYSISon 2022 BACTERIA (#/HPF) IN URINE Few Abnormal Negative [facility] Comment on above: Performed By: #### L [id number] ####Chief Information Officer: FREDRICK KHAN ([id number])[facility] (SBHLAB)[address] [place] [address] BILIRUBIN, TOTAL PRESENCE IN URINE Negative Normal Negative [facility] Comment on above: Performed By: #### L [id number] ####Chief Information Officer: FREDRICK KHAN ([id number])[facility] (SBHLAB)[address] [place] [address] [place] Clarity (U) Clear Normal Clear [facility] Comment on above: Performed By: #### L [id number] ####Chief Information Officer: FREDRICK KHAN ([id number])[facility] (SBHLAB)[address] Color (U) Light Yellow Normal Lt. Yellow [facility] Comment on above: Performed By: #### L [id number] ####Chief Information Officer: FREDRICK KHAN ([id number])[facility] ([facility] GLUCOSE (MG/DL) IN URINE Normal Normal Normal (<70) [facility] Comment on above: Performed By: #### L [id number] ####Chief Information Officer: FREDRICK KHAN ([id number])[facility] (HLAB)[address] [place] [address] [place] HEMOGLOBIN PRESENCE IN URINE Negative Normal Negative [facility] Comment on above: Performed By: #### L [id number] ####Chief Information Officer: FREDRICK KHAN ([id number])[facility] Ketones Ql (U) Negative Normal Negative [facility] Comment on above: Performed By: #### L [id number] ####Chief Information Officer: FREDRICK KHAN ([id number])[facility] (SBHLAB)[address] [place] [address] [place] LEUKOCYTE ESTERASE PRESENCE IN URINE BY TEST STRIP Negative Normal Negative [facility] Comment on above: Performed By: #### L [id number] ####Chief Information Officer: FREDRICK KHAN ([id number])[facility] (SBHLAB)[address] [place] [address] [place] NITRITE PRESENCE IN URINE Negative Normal Negative [facility] Comment on above: Performed By: #### L [id number] ####Chief Information Officer: FREDRICK KHAN ([id number])[facility] [place] (SBHLAB)[address] pH (U) 6.5 [pH] Normal 5.0-8.0 [facility] Comment on above: Performed By: #### L [id number] ####Chief Information Officer: FREDRICK KHAN ([id number])[facility] [place] (SBHLAB)[address] Protein (U) [Mass/Vol] 10 mg/dL Abnormal Negative [facility] Comment on above: Performed By: #### L [id number] ####Chief Information Officer: FREDRICK KHAN ([id number])[facility]A BARBPRESBYTERIAN SANT[facility]ENTERN (SBHLAB)[address] RBC (#/HPF) IN URINE SEDIMENT 0-2 Normal 0-2 [facility] Comment on above: Performed By: #### L [id number] ####Chief Information Officer: FREDRICK KHAN ([id number])[facility]A BARBPRESBYTERIAN SANTA FE MEDICAL CENTERDinesh (SBHLAB)[address] Specific gravity (U) [Rel density] >1.030 High 1.005-1.030 [facility] Comment on above: Performed By: #### L [id number] ####Chief Information Officer: FREDRICK KHAN ([phone])[facility]A BARBPRESBYTERIAN SANTA FE MEDICAL CENTERDinesh (SBHLAB)[address] SQUAMOUS EPITHELIAL CELLS (#/HPF) IN URINE SEDIMENT 3-5 Normal 3-5 [facility] Comment on above: Performed By: #### L [id number] ####Chief Information Officer: FREDRICK KHAN ([id number])[facility]A [facility]BPRESBYTER[facility]ERN (SBHLAB)[address] [place] [address] [place] UROBILINOGEN (MG/DL) IN URINE Normal Normal Normal (0-1) [facility] Comment on above: Performed By: #### L [id number] ####Chief Information Officer: FREDRICK KHAN ([id number])[facility]BPRESBYTERIAN [facility] (SBHLAB)[address] WBC (LEUKOCYTE) (#/HPF) IN URINE SEDIMENT 0-2 Normal 0-5 [facility] Comment on above: Performed By: #### L [id number] ####Chief Information Officer: FREDRICK KHAN ([id number])[facility] [place] (SBHLAB)[address] COMPREHENSIVE METABOLIC PANE Miles 06-23-2023 Albumin [Mass/Vol] 3.9 g/dL Normal 3.5-5.0 [facility] Comment on above: Performed By: #### L AB99, LAB17 ####Chief Information Officer: FREDRICK KHAN ([id number])[facility] CENTERMaik [place] (SBHLAB)[address] ALP [Catalytic activity/Vol] 69 U/L Normal 38-126 [facility] Comment on above: Performed By: #### L AB99, LAB17 ####Chief Information Officer: FREDRICK KHAN ([id number])[facility] CENTERMaik [place] (SBHLAB)[address] ALT [Catalytic activity/Vol] 17 U/L Normal 0-34 [facility] Comment on above: Performed By: #### L AB99, LAB17 ####Chief Information Officer: FREDRICK KHAN ([id number])[facility] CENTERMaik [place] (SBHLAB)[address] Anion gap [Moles/Vol] 8 mmol/L Normal 3-13 [facility] Comment on above: Performed By: #### L AB99, LAB17 ####Chief Information Officer: FREDRICK KHAN ([id number])[facility] [place] (SBHLAB)[address] [place] [address] [place] AST [Catalytic activity/Vol] 26 U/L Normal 15-46 [facility] Comment on above: Performed By: #### L AB99, LAB17 ####Chief Information Officer: FREDRICK KHAN ([id number])[facility] [place] (SBHLAB)[address] Bilirubin [Mass/Vol] 0.2 mg/dL Normal 0.2-1.3 [facility] Comment on above: Performed By: #### L AB99, LAB17 ####Chief Information Officer: FREDRICK KHAN ([id number])[facility]A BARBPRESBYTERIAN S[facility]ENTERN (SBHLAB)[address] Calcium [Mass/Vol] 9.3 mg/dL Normal 8.4-10.4 [facility] Comment on above: Performed By: #### L AB99, LAB17 ####Chief Information Officer: FREDRICK KHAN ([id number])[facility] BARBPRESBYTERIAN SANT[facility] FE MED[facility] CENTERN (SBHLAB)[address] Chloride [Moles/Vol] 102 mmol/L Normal 98-107 [facility] Comment on above: Performed By: #### L AB99, LAB17 ####Chief Information Officer: FREDRICK KHAN ([id number])[facility]BPRESBYTER[facility] (SBHLAB)[address] CO2 [Moles/Vol] 27 mmol/L Normal 22-30 [facility] Comment on above: Performed By: #### L AB99, LAB17 ####Chief Information Officer: FREDRICK KHAN ([id number])[facility] BARBPRESBYTERIAN SANT[facility] CENTERN (SBHLAB)[address] Creatinine [Mass/Vol] 0.55 mg/dL Normal 0.52-1.04 [facility] Comment on above: Performed By: #### L AB99, LAB17 ####Chief Information Officer: FREDRICK KHAN ([id number])[facility] BARBPRESBYTERIAN SANT[facility] FE MED[facility] CENTERN (SBHLAB)[address] GLOMERULAR FILTRATION RATE ML/MIN/1.73 SQ M.PREDICTED >90.0 Normal >60.0 [facility] Comment on above: Result Comment: Calc ulation based on the Chronic Kidney Disease Epidemiology Collaboration (CKD-EPI) equation refit without adjustment for race Performed By: #### L AB99, LAB17 ####Chief Information Officer: FREDRICK KHAN ([id number])[facility] [place] (SBHLAB)[address] [place] [address] [place] Glucose [Mass/Vol] 143 mg/dL High 70-100 [facility] Comment on above: Performed By: #### L AB99, LAB17 ####Chief Information Officer: FREDRICK MONROYCAROLINA ([id number])[facility] [place] (SB[facility])[address] Potassium [Moles/Vol] 3.7 mmol/L Normal 3.5-5.1 [facility] Comment on above: Performed By: #### L AB99, LAB17 ####Chief Information Officer: FREDRICK MONROYCAROLINA ([id number])[facility] [place] ([facility])[address] Protein [Mass/Vol] 7.4 g/dL Normal 6.3-8.2 [facility] Comment on above: Performed By: #### L AB99, LAB17 ####Chief Information Officer: FREDRICK MONROYCAROLINA ([id number])[facility] [place] (SBHLAB)[address] [place] [address] [place] Sodium [Moles/Vol] 136 mmol/L Normal 135-145 [facility] Comment on above: Performed By: #### L AB99, LAB17 ####Chief Information Officer: FREDRICK MONROYCAROLINA ([id number])[facility] [place] (SBHLAB)[address] [place] [address] [place] Urea nitrogen [Mass/Vol] 10 mg/dL Normal 7-17 [facility] Comment on above: Performed By: #### L AB99, LAB17 ####Chief Information Officer: FREDRICK RAMOSSATINDER ([id number])[facility] [place] (SB[facility])[address] ABDOMEN PELVIS W CONTRAST on 06-23-2023 CT ABDOMEN PELVIS W CONTRAST Normal [facility] CT Abdomen and Pelvis W cont rast Nani 06-23-2023 1. Acute diverticuli tis involving the the distal descending colon extending into the sigmoid colon. No focal fluid collection or evidence of perforation. 2. Moderate to severe mixed atherosclerotic plaque with infrarenal abdominal aortic aneurysm measuring 3.3 x 3.0 cm, previously 2.9 x 2.7 cm. Please see below recommendations. 3. Mild biliary ductal dilatation also seen on prior study and likely postsurgical. 4. Tiny joe of intraluminal air within the urinary bladder. This is nonspecific and could reflect recent instrumentation or infection. Given proximity to sigmoid colon fistula could be considered though this is felt to be less likely. Reference: Recommended interval for initial follow-up imaging of ectatic aortas and aneurysms: Og et al. JACR. 2013 Diameter Imaging interval 2.5-2.9 cm 5 y 3.0-3.4 cm 3 y 3.5-3.9 cm 2 y 4.0-4.4 cm 1 y 4.5-4.9 cm 6 mo 5.0-5.5 cm 3-6 mo Report Dictated on Electronically Signed By: Moises Little MD Electronically Signed Date/Time: 06/23/2023 6:13 PM [facility] Earlier Media SYSTEM Patient Name: PRISCILA CHA : 1955 Exam Date/Time: 06/23/2023 18:04 Procedure: CT ABDOMEN PELVIS W CONTRAST Ordering Provider: CAREY JAKLYN Reason For Exam: LLQ, recent hx of diverticulitis CT ABDOMEN AND PELVIS WITH CONTRAST CLINICAL INDICATION: Left-sided abdominal pain. Recent history of acute diverticulitis TECHNIQUE: Axial CT images through the abdomen and pelvis with 3 mm reconstruction following dynamic intravenous infusion of 75 mL of Isovue-370 intravenous contrast media. Enteric contrast was not administered. Coronal and sagittal reconstructions included. Dose reduction was employed with automated exposure control. COMPARISON: 10/15/2021 FINDINGS: Limitations: Examination is limited for evaluation of the gastrointestinal tract due to lack of oral contrast. Mild patient motion artifact Lung base: Streaky bibasilar opacities reflect atelectasis/scarring. Liver: Appears fairly homogeneous without discrete lesion identified. Gallbladder/Biliary tree: Gallbladder appears within normal limits. Common bile duct is mildly dilated measuring up to 9 mm with some degree of distal tapering Spleen: No significant abnormality detected. Pancreas: Homogeneous without adjacent stranding or other significant abnormality. Adrenals: No discrete mass or nodule detected. Kidneys/pelvic organs: Symmetric contrast enhancement without obstructive uropathy. No nephrolithiasis. Tiny joe of intraluminal air within the urinary bladder. Uterus demonstrates a normal CT appearance for patient's age. GI tract: Tiny sliding-type hiatal hernia. No dilated loops of small bowel. Normal appendix. Mild amount retained colonic stool. Colonic diverticula most pronounced in the sigmoid colon and distal descending colon. These segments demonstrate some wall thickening with pericolonic stranding/fluid most pronounced at the distal descending colon Where there is localized stranding/fluid. Peritoneal cavity/retroperitoneum: No pneumatosis or pneumoperitoneum. Trace pelvic ascites. No focal fluid collection. No suspicious bulky adenopathy. Vasculature: Moderate to severe mixed atherosclerotic plaque with infrarenal abdominal aortic aneurysm measuring 3.3 x 3.0 cm, remeasured on prior study at 2.9 x 2.7 cm. Major venous structures enhance normally. Osseous structures/soft tissues: Degenerative spondylosis in the visualized spine with postsurgical changes at L4-L5. There is mild scoliotic curvature. Osteoarthritis right greater than left hip. No significant soft tissue abnormality detected [facility] Rainer Ltitle MD - 06/23/2023 Patient Name: PRISCILA CHA : 1955 Exam Date/Time: 06/23/2023 18:04 Procedure: CT ABDOMEN PELVIS W CONTRAST Ordering Provider: CAREY JAKLYN Reason For Exam: LLQ, recent hx of diverticulitis CT ABDOMEN AND PELVIS WITH CONTRAST CLINICAL INDICATION: Left-sided abdominal pain. Recent history of acute diverticulitis TECHNIQUE: Axial CT images through the abdomen and pelvis with 3 mm reconstruction following dynamic intravenous infusion of 75 mL of Isovue-370 intravenous contrast media. Enteric contrast was not administered. Coronal and sagittal reconstructions included. Dose reduction was employed with automated exposure control. COMPARISON: 10/15/2021 FINDINGS: Limitations: Examination is limited for evaluation of the gastrointestinal tract due to lack of oral contrast. Mild patient motion artifact Lung base: Streaky bibasilar opacities reflect atelectasis/scarring. Liver: Appears fairly homogeneous without discrete lesion identified. Gallbladder/Biliary tree: Gallbladder appears within normal limits. Common bile duct is mildly dilated measuring up to 9 mm with some degree of distal tapering Spleen: No significant abnormality detected. Pancreas: Homogeneous without adjacent stranding or other significant abnormality. Adrenals: No discrete mass or nodule detected. Kidneys/pelvic organs: Symmetric contrast enhancement without obstructive uropathy. No nephrolithiasis. Tiny joe of intraluminal air within the urinary bladder. Uterus demonstrates a normal CT appearance for patient's age. GI tract: Tiny sliding-type hiatal hernia. No dilated loops of small bowel. Normal appendix. Mild amount retained colonic stool. Colonic diverticula most pronounced in the sigmoid colon and distal descending colon. These segments demonstrate some wall thickening with pericolonic stranding/fluid most pronounced at the distal descending colon Where there is localized stranding/fluid. Peritoneal cavity/retroperitoneum: No pneumatosis or pneumoperitoneum. Trace pelvic ascites. No focal fluid collection. No suspicious bulky adenopathy. Vasculature: Moderate to severe mixed atherosclerotic plaque with infrarenal abdominal aortic aneurysm measuring 3.3 x 3.0 cm, remeasured on prior study at 2.9 x 2.7 cm. Major venous structures enhance normally. Osseous structures/soft tissues: Degenerative spondylosis in the visualized spine with postsurgical changes at L4-L5. There is mild scoliotic curvature. Osteoarthritis right greater than left hip. No significant soft tissue abnormality detected IMPRESSION: 1. Acute diverticulitis involving the the distal descending colon extending into the sigmoid colon. No focal fluid collection or evidence of perforation. 2. Moderate to severe mixed atherosclerotic plaque with infrarenal abdominal aortic aneurysm measuring 3.3 x 3.0 cm, previously 2.9 x 2.7 cm. Please see below recommendations. 3. Mild biliary ductal dilatation also seen on prior study and likely postsurgical. 4. Tiny joe of intraluminal air within the urinary bladder. This is nonspecific and could reflect recent instrumentation or infection. Given proximity to sigmoid colon fistula could be considered though this is felt to be less likely. Reference: Recommended interval for initial follow-up imaging of ectatic aortas and aneurysms: harsh Foley. JACR. 2013 Diameter Imaging interval 2.5-2.9 cm 5 y 3.0-3.4 cm 3 y 3.5-3.9 cm 2 y 4.0-4.4 cm 1 y 4.5-4.9 cm 6 mo 5.0-5.5 cm 3-6 mo Report Dictated on Electronically Signed By: Moises Little MD Electronically Signed Date/Time: 06/23/2023 6:13 PM EDT [facility] Radiology Study observation (narrative) Ant atkinson CT Abdomen and Pelvis W cont rast IVOrdered By: Rainer Little on 06-23-2023 [facility] Work Phone: Comprehensive metabolic 1998 panelon 06-23-2023 Albumin [Mass/Vol] 3.9 g/dL 3.5 - 5.0 g/dL [facility] ALP [Catalytic activity/Vol] 69 U/L 38 - 126 U/L [facility] ALT [Catalytic activity/Vol] 17 U/L 0 - 34 U/L [facility] Anion gap [Moles/Vol] 8 mmol/L 3 - 13 mmol/L [facility] AST [Catalytic activity/Vol] 26 U/L 15 - 46 U/L [facility] Bilirubin [Mass/Vol] 0.2 mg/dL 0.2 - 1 .3 mg/dL [facility] Calcium [Mass/Vol] 9.3 mg/dL 8.4 - 10. 4 mg/dL [facility] Chloride [Moles/Vol] 102 mmol/L 98 - 10 7 mmol/L [facility] CO2 [Moles/Vol] 27 mmol/L 22 - 30 mmol/L [facility] Creatinine [Mass/Vol] 0.55 mg/dL 0.52 - 1.04 mg/dL [facility] GFR/1.73 sq M.predicted MDRD (S/P/Bld) [Vol rate/Area] - PINF [facility] Comment on above: Calculation based on the Chronic Kidney Disease Epidemiology Collaboration (CKD-EPI) equation refit without adjustment for race Glucose [Mass/Vol] 143 mg/dL High 70 - 100 mg/dL [facility] Interpretation and review of laboratory results Abnormal [facility] Potassium [Moles/Vol] 3.7 mmol/L 3.5 - 5.1 mmol/L [facility] Protein [Mass/Vol] 7.4 g/dL 6.3 - 8.2 g/dL [facility] Sodium [Moles/Vol] 136 mmol/L 135 - 145 mmol/L [facility] Urea nitrogen [Mass/Vol] 10 mg/dL 7 - 17 mg/dL [facility] ED Provider Noteon ED Provider Note Normal [facility] LACTIC ACID WITH REFLEXon Lactate [Moles/Vol] 0.7 mmol/L Normal 0.7-2.0 [facility] Comment on above: Performed By: #### L [id number] ####Chief Information Officer: FREDRICK KHAN ([id number])[facility] ([facility])[address] LIPASEon 06-23-2023 Lipase [Catalytic activity/Vol] 26 U/L Normal 23-300 [facility] Comment on above: Performed By: #### L [id number], [id number] ####Chief Information Officer: FREDRICK KHAN ([id number])[facility])[address] [place] [address] Laboratory - Chemistry and C hemistry - challengeon 06-23-2023 Lactate [Moles/Vol] 0.7 mmol/L 0.7 - 2. 0 mmol/L [facility] Lipase [Catalytic activity/Vol] 26 U/L 23 - 300 U/L [facility] Lipase [Catalytic activity/V ol]on 06-23-2023 Interpretation and review of laboratory results Normal [facility] No Panel Informationon 06-23 Interpretation and review of laboratory results Normal [facility] Urinalysis complete panel (U )on 06-23-2023 Bacteria LM.HPF (Urine sed) [#/Area] Few Abnormal Negative /HPF [facility] Bilirubin Ql (U) Negative Negative mg/dL [facility] Clarity (U) Clear Clear [facility] Color (U) Light Yellow Lt. Yellow [facility] Epithelial cells.squamous LM.HPF (Urine sed) [#/Area] 3-5 [facility] Glucose Ql (U) Normal Normal (<70) mg/dL [facility] Hemoglobin Ql (U) Negative Negative mg/dL [facility] Interpretation and review of laboratory results Abnormal [facility] Ketones (U) [Mass/Vol] Negative Negat santino mg/dL [facility] Leukocyte esterase Test strip Ql (U) Negative Negative Lauro/uL [facility] Nitrite Ql (U) Negative Negative [facility] th pH (U) 6.5 [pH] 5.0 - 8.0 pH [facility] Protein (U) [Mass/Vol] 10 mg/dL Abnormal Negative [facility] RBC LM.HPF (Urine sed) [#/Area] 0-2 [facility] Specific gravity (U) [Rel density] High 1.005 - 1.030 [facility] Urobilinogen (U) [Mass/Vol] Normal Normal (0-1) mg/dL [facility] WBC LM.HPF (Urine sed) [#/Area] 0-2 [facility] MR Chest WO contraston 02-03 Impression: 1. Advanced right femoral acetabular articular cartilage thinning with moderate osteoarthropathy and extensive degenerative acetabular labral tear. Tiny right hip joint effusion. 2. Minimal iliopsoas, gluteal and proximal hamstrings tendinitis. 3. Probable tear with tiny paralabral cyst left posterior superior acetabular labrum. 4. Sigmoid diverticulosis. Report Dictated on Electronically Signed By: Gurwinder Martinez Electronically Signed Date/Time: 02/03/2023 9:16 AM [facility] 1955 [id number] Exam Date/Time: 02/02/2023 16:24 Procedure: MR HIP RIGHT WO IV CONTRAST Ordering Provider: DEE JOSEPH Reason For Exam: [id number] Examination: MRI right hip Clinical Indication: Hip pain Comparison: None Findings: Multiplanar multisequence high field strength MRI images were obtained through the pelvis and right hip without intravenous or intra-articular contrast. No evidence of fracture or avascular necrosis. Right hip alpha angle measures 70 degrees with a tiny cam seen along the femoral head neck junction anteriorly and superiorly. Normal lateral center edge angle. Acetabulum demonstrates neutral version. Tiny hip joint effusion. Advanced femoral acetabular articular cartilage thinning with degenerative edema. Tiny 0.3 cm subchondral cyst anterior acetabulum. There is a large degenerative tear of the entirety of the anterior and extending through the anterior to mid superior labrum. Tear has some articular and interstitial component. A small bursal sided perforation is noted anterior superiorly. There is some fraying of the labrum. Ligamentum teres within normal limits. Trace iliopsoas tendinitis distally, no tear or significant bursitis. Minimal gluteus medius minimus and anterior medius tendinitis, no tear. Trace inflammation seen along the trochanteric bursa. No gross evidence of posterior hip impingement. Common hamstrings tendon origin demonstrates minimal tendinitis. There is lower lumbar fusion hardware, transpedical screws and posterior fusion rods. There is suggestion of a tiny paralabral cyst posterior superior left acetabular labrum likely associated with a tiny labral tear. There are some sigmoid colonic diverticuli, diverticulosis. [facility] RADIOLOGY [facility] Gurwinder Martinez MD - 02/03/2023 Patient Name: PRISCILA CHA : 1955 Exam Date/Time: 02/02/2023 16:24 Procedure: MR HIP RIGHT WO IV CONTRAST Ordering Provider: DEE JOSEPH Reason For Exam: [id number] Examination: MRI right hip Clinical Indication: Hip pain Comparison: None Findings: Multiplanar multisequence high field strength MRI images were obtained through the pelvis and right hip without intravenous or intra-articular contrast. No evidence of fracture or avascular necrosis. Right hip alpha angle measures 70 degrees with a tiny cam seen along the femoral head neck junction anteriorly and superiorly. Normal lateral center edge angle. Acetabulum demonstrates neutral version. Tiny hip joint effusion. Advanced femoral acetabular articular cartilage thinning with degenerative edema. Tiny 0.3 cm subchondral cyst anterior acetabulum. There is a large degenerative tear of the entirety of the anterior and extending through the anterior to mid superior labrum. Tear has some articular and interstitial component. A small bursal sided perforation is noted anterior superiorly. There is some fraying of the labrum. Ligamentum teres within normal limits. Trace iliopsoas tendinitis distally, no tear or significant bursitis. Minimal gluteus medius minimus and anterior medius tendinitis, no tear. Trace inflammation seen along the trochanteric bursa. No gross evidence of posterior hip impingement. Common hamstrings tendon origin demonstrates minimal tendinitis. There is lower lumbar fusion hardware, transpedical screws and posterior fusion rods. There is suggestion of a tiny paralabral cyst posterior superior left acetabular labrum likely associated with a tiny labral tear. There are some sigmoid colonic diverticuli, diverticulosis. IMPRESSION: Impression: 1. Advanced right femoral acetabular articular cartilage thinning with moderate osteoarthropathy and extensive degenerative acetabular labral tear. Tiny right hip joint effusion. 2. Minimal iliopsoas, gluteal and proximal hamstrings tendinitis. 3. Probable tear with tiny paralabral cyst left posterior superior acetabular labrum. 4. Sigmoid diverticulosis. Report Dictated on Electronically Signed By: Gurwinder Martinez Electronically Signed Date/Time: 02/03/2023 9:16 AM EDT [facility] MR Chest WO contrastOrdered By: Gurwinder Martinez on 02-03-2023 [employer] Work Phone: MR Chest WO contraston 02-02 Radiology Study observation (narrative) [facility] alth Comp Panel with Mg Reflexon 06-22-2022 ALT [Catalytic activity/Vol] 17 U/L Normal 0-34 [facility] Comment on above: Result Comment: The ALT test is performed by an updated assay method. Please note that the reference intervals have been changed and are now sex specific. Performed By: #### B GLU #### [facility] [address] [place] [address] Calcium [Mass/Vol] 9.1 mg/dL Normal 8.4-10.4 [facility] Comment on above: Performed By: #### B GLU #### [facility] [address] [facility] [place] [address] Glucose [Mass/Vol] 157 mg/dL High 70-100 [facility] Comment on above: Performed By: #### B GLU #### [facility] [address] [place] [address] Urea nitrogen [Mass/Vol] 29 mg/dL High 9-20 [facility] Comment on above: Performed By: #### B GLU #### [facility] [address] [place] [address] ALP [Catalytic activity/Vol] 59 U/L Normal 38-126 [facility] Comment on above: Performed By: #### B GLU #### [facility] [address] [place] [address] Anion gap [Moles/Vol] 5 mmol/L Normal 3-13 [facility] Comment on above: Performed By: #### B GLU #### [facility] [address] [place] [address] AST [Catalytic activity/Vol] 30 U/L Normal 15-46 [facility] Comment on above: Performed By: #### B GLU #### [facility] [address] [place] [address] Bilirubin [Mass/Vol] 0.2 mg/dL Normal 0.2-1.3 [facility] Comment on above: Performed By: #### B GLU #### [facility] [address] [place] [address] CO2 [Moles/Vol] 26 mmol/L Normal 22-30 [facility] Comment on above: Performed By: #### B GLU #### [facility] [address] [place] [address] Creatinine [Mass/Vol] 0.73 mg/dL Normal 0.52-1.25 [facility] Comment on above: Performed By: #### B GLU #### [facility] [address] [place] [address] GFR/1.73 sq M.predicted among blacks MDRD (S/P/Bld) [Vol rate/Area] mL/min/{1.73_m2} Normal >60 [facility] Comment on above: Performed By: #### B GLU #### [facility] [address] [place] [address] GFR/1.73 sq M.predicted among non-blacks MDRD (S/P/Bld) [Vol rate/Area] 85.5 mL/min/{1.73_m2} Normal >60 [facility] Comment on above: Result Comment: KDIG O guidelines provide the following GFR categories: Stage GFR(ml/min/1.73 m2) Terms G1 >=90 Normal or high G2 60-89 Mildly decreased* G3a 45-59 Mildly to moderately decreased G3b 30-44 Moderately to severely decreased G4 15-29 Severely decreased G5 <15 Kidney failure *Relative to young adult level. In the absence of evidence of kidney damage, neither GFR category G1 nor G2 fulfill the criteria for CKD. The CKD-EPI equation is validated in individuals 18 years of age and older. Currently the best equation for estimating glomerular filtration rate (GFR) from serum creatinine in children is the Bedside Olivera equation. It is less accurate in patients with extremes of muscle mass, restriction of dietary protein, ingestion of creatine, extra-renal metabolism of creatinine, or treatment with medications that affect renal tubular creatinine secretion. Performed By: #### B GLU #### [facility] [address] [place] [address] Protein [Mass/Vol] 6.3 g/dL Normal 6.3-8.2 [facility] Comment on above: Performed By: #### B GLU #### [facility] [address] [place] [address] Potassium [Moles/Vol] 3.6 mmol/L Normal 3.5-5.1 [facility] Comment on above: Performed By: #### B GLU #### [facility] [address] [place] [address] Sodium [Moles/Vol] 139 mmol/L Normal 135-145 [facility] Comment on above: Performed By: #### B GLU #### [facility] [address] [place] [address] Albumin [Mass/Vol] 3.4 g/dL Low 3.5-5.0 [facility] Comment on above: Performed By: #### B GLU #### [facility] [address] [place] [address] Chloride [Moles/Vol] 108 mmol/L High 98-107 [facility] Comment on above: Performed By: #### B GLU #### [facility] [address] [place] [address] Comprehensive Metabolic Pane l w/ Reflex to MGon 06-22-2022 Albumin [Mass/Vol] 3.4 g/dL Low 3.5 - 5 g/dL [facility] ALP (Bld) [Catalytic activity/Vol] 59 U/L 38 - 126 U/L [facility] ALT [Catalytic activity/Vol] 17 U/L 0 - 34 U/L [facility] Comment on above: The ALT test is perf ormed by an updated assay method. Please note that the reference intervals have been changed and are now sex specific. Anion gap [Moles/Vol] 5 mmol/L 3 - 13 mmol/L [facility] AST [Catalytic activity/Vol] 30 U/L 15 - 46 U/L [facility] Bilirubin [Mass/Vol] 0.2 mg/dL 0.2 - 1 .3 mg/dL [facility] Calcium [Mass/Vol] 9.1 mg/dL 8.4 - 10. 4 mg/dL [facility] Chloride [Moles/Vol] 108 mmol/L High 98 - 10 7 mmol/L [facility] CO2 [Moles/Vol] 26 mmol/L 22 - 30 mmol/L [facility] Creatinine [Mass/Vol] 0.73 mg/dL 0.52 - 1.25 mg/dL [facility] eGFR mL/min 60 - P INF mL/min [facility] EGFR IF NonAfrican Burmese 85.5 mL/min 60 - PINF mL/min [facility] Comment on above: KDIGO guidelines pro vide the following GFR categories: Stage GFR(ml/min/1.73 m2) Terms G1 >=90 Normal or high G2 60-89 Mildly decreased* G3a 45-59 Mildly to moderately decreased G3b 30-44 Moderately to severely decreased G4 15-29 Severely decreased G5 <15 Kidney failure *Relative to young adult level. In the absence of evidence of kidney damage, neither GFR category G1 nor G2 fulfill the criteria for CKD. The CKD-EPI equation is validated in individuals 18 years of age and older. Currently the best equation for estimating glomerular filtration rate (GFR) from serum creatinine in children is the Bedside Olivera equation. It is less accurate in patients with extremes of muscle mass, restriction of dietary protein, ingestion of creatine, extra-renal metabolism of creatinine, or treatment with medications that affect renal tubular creatinine secretion. Glucose [Mass/Vol] 157 mg/dL High 70 - 100 mg/dL [facility] Interpretation and review of laboratory results Abnormal [facility] Potassium [Moles/Vol] 3.6 mmol/L 3.5 - 5.1 mmol/L [facility] Protein [Mass/Vol] 6.3 g/dL 6.3 - 8.2 g/dL [facility] Sodium [Moles/Vol] 139 mmol/L 135 - 145 mmol/L [facility] Urea nitrogen (BldV) [Mass/Vol] 29 mg/dL High 9 - 20 mg/dL [facility] Test Performed by [facility], [address], [place], [place] [address] [facility] EKG 12 Leadon 06-22-2022 [facility] Test Date: 2022-06-20 Pat Name: PRISCILA CHA Department: 2AU Room: C05 Gender: F Media Manager: JAIMIE : 1955 Requested By: ANNABEL ARMSTRONG Order Number: [id number] Reading MD: Marcial Oconnor Measurements Intervals [place] Rate: 80 P: 67 NM: 166 QRS: 42 QRSD: 69 T: 45 QT: 372 QTc: 428 Interpretive Statements Sinus rhythm Abnormal R-wave progression, early transition Electronically Signed On 06-22-2022 10:35:02 EDT by Marcial Oconnor [facility] CARDIOLOGY Marcial Oconnor MD - 06/22/2022 [facility] Test Date: 2022-06-20 Pat Name: PRISCILA CHA [facility]: C[facility] Gender: F Media Manager: JAIMIE : 1955 Requested By: ANNABEL ARMSTRONG Order Number: [id number] Reading MD: Marcial Oconnor Measurements Intervals [place] Rate: 80 P: 67 NM: 166 QRS: 42 QRSD: 69 T: 45 QT: 372 QTc: 428 Interpretive Statements Sinus rhythm Abnormal R-wave progression, early transition Electronically Signed On 06-22-2022 10:35:02 EDT by Marcial Oconnor [facility] Work Phone: EKG 12 LeadOrdered By: Amparo Oconnor on 06-22-2022 [facility] Work Phone: Glucose,Bedsideon 06-22-2022 Glucose [Mass/Vol] 103 mg/dL High 70-100 [facility] Comment on above: Result Comment: Test performed by glucose meter. Results may be 10%-15% lower than serum/plasma values. (CLIA ID [id number]) Performed By: #### B GLU #### [facility] [address] [place] [address] POCT GlucoseOrdered By: Maria Luz Hestre on 06-22-2022 Glucose [Mass/Vol] 103 mg/dL High 70 - 100 mg/dL [facility] Work Phone: Comment on above: Test performed by gl ucose meter. Results may be 10%-15% lower than serum/plasma values. (CLIA ID [id number]) Interpretation and review of laboratory results Abnormal [facility] Work Phone: [facility] Work Phone: POCT Glucoseon 06-22-2022 Test Performed by [facility], [address], [place], [place] [id number] [place] [address] LAB Basic Metabolic Panelon Calcium [Mass/Vol] 8.8 mg/dL Normal 8.4-10.4 [facility] Comment on above: Performed By: #### SOLEDAD ENGEL #### [facility] [address], [place] Glucose [Mass/Vol] 148 mg/dL High 70-100 [facility] Comment on above: Performed By: #### SOLEDAD ENGEL #### [place] [address] [address], [place] Anion gap [Moles/Vol] 5 mmol/L Normal 3-13 [facility] Comment on above: Performed By: #### SOLEDAD ENGEL #### [place] [address] [address], [place] CO2 [Moles/Vol] 25 mmol/L Normal 22-30 [facility] Comment on above: Performed By: #### SOLEDAD ENGEL #### [place] [address] [address], [place] Creatinine [Mass/Vol] 0.73 mg/dL Normal 0.52-1.25 [facility] Comment on above: Performed By: #### SOLEDAD ENGEL #### [place] [address] [place] [address] GFR/1.73 sq M.predicted among blacks MDRD (S/P/Bld) [Vol rate/Area] mL/min/{1.73_m2} Normal >60 [facility] Comment on above: Performed By: #### SOLEDAD ENGEL #### [facility] [address] [place] [address] GFR/1.73 sq M.predicted among non-blacks MDRD (S/P/Bld) [Vol rate/Area] 85.5 mL/min/{1.73_m2} Normal >60 [facility] Comment on above: Result Comment: KDIG O guidelines provide the following GFR categories: Stage GFR(ml/min/1.73 m2) Terms G1 >=90 Normal or high G2 60-89 Mildly decreased* G3a 45-59 Mildly to moderately decreased G3b 30-44 Moderately to severely decreased G4 15-29 Severely decreased G5 <15 Kidney failure *Relative to young adult level. In the absence of evidence of kidney damage, neither GFR category G1 nor G2 fulfill the criteria for CKD. The CKD-EPI equation is validated in individuals 18 years of age and older. Currently the best equation for estimating glomerular filtration rate (GFR) from serum creatinine in children is the Bedside Olivera equation. It is less accurate in patients with extremes of muscle mass, restriction of dietary protein, ingestion of creatine, extra-renal metabolism of creatinine, or treatment with medications that affect renal tubular creatinine secretion. Performed By: #### SOLEDAD ENGEL #### [facility] [address] [place] [address] Urea nitrogen [Mass/Vol] 23 mg/dL High 9-20 [facility] Comment on above: Performed By: #### SOLEDAD ENGEL #### [facility] [address] [place] [address] Chloride [Moles/Vol] 105 mmol/L Normal 98-107 [facility] Comment on above: Performed By: #### SOLEDAD ENGEL #### [facility] [address] [place] [address] Potassium [Moles/Vol] 4.1 mmol/L Normal 3.5-5.1 [facility] Comment on above: Performed By: #### SOLEDAD ENGEL #### [facility] [address] [place] [address] Sodium [Moles/Vol] 135 mmol/L Normal 135-145 [facility] Comment on above: Performed By: #### SOLEDAD ENGEL #### [facility] [address] [place] [address] Anion gap [Moles/Vol] 5 mmol/L 3 - 13 mmol/L [facility] Calcium [Mass/Vol] 8.8 mg/dL 8.4 - 10. 4 mg/dL [facility] Chloride [Moles/Vol] 105 mmol/L 98 - 10 7 mmol/L [facility] CO2 [Moles/Vol] 25 mmol/L 22 - 30 mmol/L [facility] Creatinine [Mass/Vol] 0.73 mg/dL 0.52 - 1.25 mg/dL [facility] eGFR mL/min 60 - P INF mL/min [facility] EGFR IF NonAfrican Burmese 85.5 mL/min 60 - PINF mL/min [facility] Comment on above: KDIGO guidelines pro vide the following GFR categories: Stage GFR(ml/min/1.73 m2) Terms G1 >=90 Normal or high G2 60-89 Mildly decreased* G3a 45-59 Mildly to moderately decreased G3b 30-44 Moderately to severely decreased G4 15-29 Severely decreased G5 <15 Kidney failure *Relative to young adult level. In the absence of evidence of kidney damage, neither GFR category G1 nor G2 fulfill the criteria for CKD. The CKD-EPI equation is validated in individuals 18 years of age and older. Currently the best equation for estimating glomerular filtration rate (GFR) from serum creatinine in children is the Bedside Olivera equation. It is less accurate in patients with extremes of muscle mass, restriction of dietary protein, ingestion of creatine, extra-renal metabolism of creatinine, or treatment with medications that affect renal tubular creatinine secretion. Glucose [Mass/Vol] 148 mg/dL High 70 - 100 mg/dL [facility] Interpretation and review of laboratory results Abnormal [facility] Potassium [Moles/Vol] 4.1 mmol/L 3.5 - 5.1 mmol/L [facility] Sodium [Moles/Vol] 135 mmol/L 135 - 145 mmol/L [facility] Urea nitrogen (BldV) [Mass/Vol] 23 mg/dL High 9 - 20 mg/dL [facility] Test Performed by [facility], [address], [place], [place] [address] [facility] CBC with Auto Differentialon 06-21-2022 Absolute Baso # 0.0 10*3/uL 0 - 0.2 10*3/uL [facility] Absolute Neut # 13.5 10*3/uL High 1.8 - 7 10*3/uL [facility] Basophils/100 WBC (Bld) 0.2 % 0 - 2 % [facility] Eosinophils (Bld) [#/Vol] 0.0 10*3/uL 0 - 0.5 10*3/uL [facility] Eosinophils/100 WBC (Bld) 0.0 % Low 1 - 6 % [facility] Granulocytes/100 WBC (Bld) 90.6 % High 40 - 80 % [facility] Hematocrit (Bld) [Volume fraction] 35.9 % 35 - 47 % [facility] Hemoglobin (Bld) [Mass/Vol] 12.0 g/dL 11.7 - 16 g/dL [facility] Interpretation and review of laboratory results Abnormal [facility] Lymphocytes (Bld) [#/Vol] 0.6 10*3/uL Low 1 - 4.3 10*3/uL [facility] Lymphocytes/100 WBC (Bld) 4.3 % Low 20 - 40 % [facility] MCH (RBC) [Entitic mass] 28.4 pg 26 - 34 pg [facility] MCHC (RBC) [Mass/Vol] 33.3 % 32 - 36 % [facility] MCV (RBC) [Entitic vol] 85.2 fL 79 - 98 fL [facility] Monocytes (Bld) [#/Vol] 0.7 10*3/uL 0 - 0.8 10*3/uL [facility] Monocytes/100 WBC (Bld) 4.9 % 2 - 10 % [facility] Platelet distribution width (Bld) [Ratio] 16.4 % High 11.5 - 14.5 % [facility] Platelet mean volume (Bld) [Entitic vol] 7.9 fL 7.4 - 12.4 fL [facility] Comment on above: MPV is a calculated measurement using platelet volume ratio. Platelets (Bld) [#/Vol] 314 10*3/uL 140 - 440 10*3/uL [facility] RBC (Bld) [#/Vol] 4.22 10*6/uL 3.8 - 5.2 10*6/uL [facility] WBC (Bld) [#/Vol] 14.9 10*3/uL High 3.6 - 10.7 10*3/uL [facility] Test Performed by [facility], [address] [place], [place], [place] [address] [facility] CTA CHEST W WO CONTRASTon Patient Name: PRISCILA CHA Computed Tomography ACCESSION EXAM DATE/TIME PROCEDURE ORDERING PROVIDER [id number] 06/21/2022 02:07 EDT CTA Chest w/ + w/o 5640 -CHANDLER, NYDIA Contrast CPT code 31749 Q9967 Reason For Exam (CTA Chest w/ + w/o Contrast) pleuritic chest pain Report EXAMINATION: CTA of the chest with intravenous contrast, pulmonary embolism protocol. EXAM DATE & TIME: 06/21/2022 2:07 AM EDT INDICATION: pleuritic chest pain ADDITIONAL INFORMATION: 66-year-old female with pleuritic chest pain presents for evaluation COMPARISON: CTA chest dated 07/17/2020 LIMITATIONS: As below TECHNIQUE: CT angiogram of the chest was performed with intravenous contrast. Thin isotropic axial imaging was obtained from above the lung apices through the level of the adrenal glands during dynamic infusion of 75 ml of intravenous Isovue 370 for evaluation of the vessels. Multiplanar and 3-D maximum intensity projection reformulations were created from the raw CT data with independent workstation software by the radiologist. These were interpreted in conjunction with the axial images to render the findings listed below. Before infusion of intravenous contrast, radiology personnel investigated the possibility of an allergic history and any history of reaction to iodinated contrast material. FINDINGS: Exam Quality: Overall exam quality is satisfactory. Pulmonary arterial enhancement is adequate, the breath-hold is optimal, and there are no significant artifacts impacting image quality. Pulmonary Arteries: There are no filling defects within the pulmonary arterial system to suggest pulmonary embolus. Cardiovascular: Atherosclerotic vascular calcifications are present in the coronary arteries and aorta. Mediastinum/pericardium : Unremarkable. Thyroid: Unremarkable. Computed Tomography Report Tracheobronchial tree: Debris is present in some of the right lower lobe bronchioles. Pleura: No pleural effusion or pneumothorax. Lungs: There is dependent and bibasilar scarring/atelectasis. Moderate to severe centrilobular and paraseptal emphysema is also seen. Nodules: No nodules are present that require follow up. Lymph nodes: No emerging adenopathy. Included images of the upper abdomen: There is a small hiatal hernia. Visualized musculoskeletal structures: No acute osseous abnormality is demonstrated. There is mild spondylosis. IMPRESSION: 1. Negative for acute pulmonary embolus. 2. The RV/LV ratio is <1. This is considered normal*. 3. Additional chronic findings as above. *Reference: Isai López., Miguel Angel Santos, Bhupendra Lopez., Edie Castro, & Tamia, RLeah Swift. (2006). Can CT pulmonary angiography allow assessment of severity and prognosis in patients presenting with pulmonary embolism? What the radiologist needs to know. Radiographics, 26(1), 23-39. Notes: The short axis of the right ventricle is measured at the level of the tricuspid valve from inner wall to inner wall at its widest point. The short axis of the left ventricle is measured at the level of the mitral valve from inner wall to inner wall at its widest point. Note that the short axes of the right ventricle and left ventricle may be located at different axial CT levels. RV/LV diameter ratio <1: normal RV/LV diameter ratio >1: mildly abnormal RV/LV diameter ratio >1.5: severely abnormal Report Dictated on --- Final --- Dictating Physician: MD ALFONSO CHRISTOPHER Signed Date and Time: 06/21/2022 3:03 am Signed by: MD ALFONSO CHRISTOPHER Transcribed Date and Time: 06/21/2022 3:29 [facility] Jamie Alfonso MD - 06/21/2022 Patient Name: PRISCILA CHA Computed Tomography ACCESSION EXAM DATE/TIME PROCEDURE ORDERING PROVIDER [id number] 06/21/2022 02:07 EDT CTA Chest w/ + w/o 5640 -NYDIA JORGENSEN CPT code 76436 Q9967 Reason For Exam (CTA Chest w/ + w/o Contrast) pleuritic chest pain Report EXAMINATION: CTA of the chest with intravenous contrast, pulmonary embolism protocol. EXAM DATE & TIME: 06/21/2022 2:07 AM EDT INDICATION: pleuritic chest pain ADDITIONAL INFORMATION: 66-year-old female with pleuritic chest pain presents for evaluation COMPARISON: CTA chest dated 07/17/2020 LIMITATIONS: As below TECHNIQUE: CT angiogram of the chest was performed with intravenous contrast. Thin isotropic axial imaging was obtained from above the lung apices through the level of the adrenal glands during dynamic infusion of 75 ml of intravenous Isovue 370 for evaluation of the vessels. Multiplanar and 3-D maximum intensity projection reformulations were created from the raw CT data with independent workstation software by the radiologist. These were interpreted in conjunction with the axial images to render the findings listed below. Before infusion of intravenous contrast, radiology personnel investigated the possibility of an allergic history and any history of reaction to iodinated contrast material. FINDINGS: Exam Quality: Overall exam quality is satisfactory. Pulmonary arterial enhancement is adequate, the breath-hold is optimal, and there are no significant artifacts impacting image quality. Pulmonary Arteries: There are no filling defects within the pulmonary arterial system to suggest pulmonary embolus. Cardiovascular: Atherosclerotic vascular calcifications are present in the coronary arteries and aorta. Mediastinum/pericardium : Unremarkable. Thyroid: Unremarkable. Computed Tomography Report Tracheobronchial tree: Debris is present in some of the right lower lobe bronchioles. Pleura: No pleural effusion or pneumothorax. Lungs: There is dependent and bibasilar scarring/atelectasis. Moderate to severe centrilobular and paraseptal emphysema is also seen. Nodules: No nodules are present that require follow up. Lymph nodes: No emerging adenopathy. Included images of the upper abdomen: There is a small hiatal hernia. Visualized musculoskeletal structures: No acute osseous abnormality is demonstrated. There is mild spondylosis. IMPRESSION: 1. Negative for acute pulmonary embolus. 2. The RV/LV ratio is <1. This is considered normal*. 3. Additional chronic findings as above. *Reference: Sully López, Miguel Angel Santos, Bhupendra Lopez., Edie Castro, & Tamia, R. F. (2006). Can CT pulmonary angiography allow assessment of severity and prognosis in patients presenting with pulmonary embolism? What the radiologist needs to know. Radiographics, 26(1), 23-39. Notes: The short axis of the right ventricle is measured at the level of the tricuspid valve from inner wall to inner wall at its widest point. The short axis of the left ventricle is measured at the level of the mitral valve from inner wall to inner wall at its widest point. Note that the short axes of the right ventricle and left ventricle may be located at different axial CT levels. RV/LV diameter ratio <1: normal RV/LV diameter ratio >1: mildly abnormal RV/LV diameter ratio >1.5: severely abnormal Report Dictated on --- Final --- Dictating Physician: MD ALFONSO CHRISTOPHER Signed Date and Time: 06/21/2022 3:03 am Signed by: MD ALFONSO CHRISTOPHER Transcribed Date and Time: 06/21/2022 3:29 [facility] Work Phone: CTA CHEST W WO CONTRASTOrder ed By: Jamie Alfonso on 06-21-2022 [facility] Work Phone: CTA Chest w/ + w/o Contrasto n 06-21-2022 CTA Chest w/ + w/o Contrast Patient Name: PRISCILA CHA Computed Tomography ACCESSION EXAM DATE/TIME PROCEDURE ORDERING PROVIDER [id number] 06/21/2022 02:07 EDT CTA Chest w/ + w/o 5640 -NYDIA JORGENSEN Contrast CPT code 80718 Q9967 Reason For Exam (CTA Chest w/ + w/o Contrast) pleuritic chest pain Report EXAMINATION: CTA of the chest with intravenous contrast, pulmonary embolism protocol. EXAM DATE and TIME: 06/21/2022 2:07 AM EDT INDICATION: pleuritic chest pain ADDITIONAL INFORMATION: 66-year-old female with pleuritic chest pain presents for evaluation COMPARISON: CTA chest dated 07/17/2020 LIMITATIONS: As below TECHNIQUE: CT angiogram of the chest was performed with intravenous contrast. Thin isotropic axial imaging was obtained from above the lung apices through the level of the adrenal glands during dynamic infusion of 75 ml of intravenous Isovue 370 for evaluation of the vessels. Multiplanar and 3-D maximum intensity projection reformulations were created from the raw CT data with independent workstation software by the radiologist. These were interpreted in conjunction with the axial images to render the findings listed below. Before infusion of intravenous contrast, radiology personnel investigated the possibility of an allergic history and any history of reaction to iodinated contrast material. FINDINGS: Exam Quality: Overall exam quality is satisfactory. Pulmonary arterial enhancement is adequate, the breath-hold is optimal, and there are no significant artifacts impacting image quality. Pulmonary Arteries: There are no filling defects within the pulmonary arterial system to suggest pulmonary embolus. Cardiovascular: Atherosclerotic vascular calcifications are present in the coronary arteries and aorta. Mediastinum/pericardium : Unremarkable. Thyroid: Unremarkable. Computed Tomography Report Tracheobronchial tree: Debris is present in some of the right lower lobe bronchioles. Pleura: No pleural effusion or pneumothorax. Lungs: There is dependent and bibasilar scarring/atelectasis. Moderate to severe centrilobular and paraseptal emphysema is also seen. Nodules: No nodules are present that require follow up. Lymph nodes: No emerging adenopathy. Included images of the upper abdomen: There is a small hiatal hernia. Visualized musculoskeletal structures: No acute osseous abnormality is demonstrated. There is mild spondylosis. IMPRESSION: 1. Negative for acute pulmonary embolus. 2. The RV/LV ratio is <1. This is considered normal*. 3. Additional chronic findings as above. *Reference: Isai López., Maik Santos., Bhupendra Lopez., Gloria, Rama., and Tamia, R. F. (2006). Can CT pulmonary angiography allow assessment of severity and prognosis in patients presenting with pulmonary embolism? What the radiologist needs to know. Radiographics, 26(1), 23-39. Notes: The short axis of the right ventricle is measured at the level of the tricuspid valve from inner wall to inner wall at its widest point. The short axis of the left ventricle is measured at the level of the mitral valve from inner wall to inner wall at its widest point. Note that the short axes of the right ventricle and left ventricle may be located at different axial CT levels. RV/LV diameter ratio <1: normal RV/LV diameter ratio >1: mildly abnormal RV/LV diameter ratio >1.5: severely abnormal Report Dictated on Final Dictating Physician: MD ALFONSO CHRISTOPHER Signed Date and Time: 06/21/2022 3:03 am Signed by: MD ALFONSO CHRISTOPHER Transcribed Date and Time: 06/21/2022 3:29 Normal [facility] ECHO Complete 2D W Doppler W Coloron 06-21-2022 TRANSTHORACIC ECHOCARDIOGRAM PATIENT: Priscila Cha STUDY DATE: 06/21/2022 : 1955 AGE: 66 HT/WT: 160 cm (63 64.4 kg in) (141.7 lb) GENDER: F BP: 161 / 88 LOCATION: [facility] PATIENT Inpatient [facility] STATUS: *ORDERING PHYSICIAN: * Megan, *FELLOW: * Ramses Cardenas MD *READING PHYSICIAN: * Yuri, *FLOUR MIXER HELPER: Lourdes Yip RDCS, MD, AE, [facility] -- INDICATIONS: Chest Pain. -- HISTORY: COPD. -- CONCLUSIONS SUMMARY: 1. Left ventricle: The cavity size is normal. Wall thickness is normal. Systolic function is hyperdynamic by the biplane method of disks. The estimated ejection fraction is 71%. There are no regional wall motion abnormalities. Left ventricular diastolic function parameters are normal. 2. Right ventricle: The cavity size is normal. Systolic function is normal. Right ventricular systolic pressure is within the normal range. 3. No significant valve disease. -- STUDY DATA: Complete transthoracic echocardiogram. Procedure: Image quality was good. M-mode, complete 2D, complete spectral Doppler, and color flow Doppler images were acquired and archived for permanent storage and are available for subsequent review. Study status: Routine. Patient status: Inpatient. ECG RHYTHM: NSR -- FINDINGS LEFT VENTRICLE: The cavity size is normal. Wall thickness is normal. Systolic function is hyperdynamic by the biplane method of disks. The estimated ejection fraction is 71%. There are no regional wall motion abnormalities. Left ventricular diastolic function parameters are normal. RIGHT VENTRICLE: The cavity size is normal. Systolic function is normal. Right ventricular systolic pressure is within the normal range. LEFT ATRIUM: The atrium is normal in size. RIGHT ATRIUM: The atrium is normal in size. MITRAL VALVE: Structurally normal valve. Leaflet separation is normal. Doppler: Transvalvular velocity is within the normal range. There is no evidence for stenosis. There is no significant regurgitation. AORTIC VALVE: Trileaflet; moderately thickened, moderately calcified leaflets. Cusp separation is normal. Doppler: Transvalvular velocity is within the normal range. There is no stenosis. There is no regurgitation. Dimensionless index: 0.88. The valve area by the velocity-time integral method is 2.8 cm^2. The valve area index by the velocity-time integral method is 1.7 cm^2/m^2. The mean systolic gradient is 5 mm Hg. The peak systolic gradient is 9 mm Hg. The peak systolic velocity is 1.5 m/sec. TRICUSPID VALVE: Structurally normal valve. Leaflet separation is normal. Doppler: Transvalvular velocity is within the normal range. There is no evidence for stenosis. There is trivial, less than 1+ regurgitation. PULMONIC VALVE: Structurally normal valve. Cusp separation is normal. Doppler: Transvalvular velocity is within the normal range. There is trivial, less than 1+ regurgitation. AORTA: Aortic root: The aortic root is normal in size. Ascending aorta: The ascending aorta is normal in size. PERICARDIUM: There is no pericardial effusion. SYSTEMIC VEINS: Inferior vena cava: The vessel is normal in size. The IVC collapses by greater than 50% with inspiration. -- Measurements Value 03/02/2019 Reference Ascending aorta ID 3.2 cm 1.9 - 3.5 Ascending aorta ID/bsa, 1.9 cm/m^2 1.0 - 2.2 A-P Ascending aorta ID, A-P, 3.2 cm 3.2 S Ascending aorta ID/bsa, 1.9 cm/m^2 A-P, S Left ventricle Value 03/02/2019 Reference LV ID, ED 5.0 cm 4.1 3.8 - 5.2 LV ID, ES 3.1 cm 3.0 2.2 - 3.5 LV ID/bsa, ED 3.0 cm/m^2 2.3 - 3.1 LV ID/bsa, ES 1.8 cm/m^2 1.3 - 2.1 LV PW thickness, ED 0.7 cm 1.0 0.6 - 0.9 LV PW/LV ID ratio, ED 0.15 LV wall mass 106 g 66 - 150 LV wall mass/bsa 63 g/m^2 44 - 88 (more content not included)... [facility] CARDIOLOGY Lourdes Welch MD - 06/21/2022 TRANSTHORACIC ECHOCARDIOGRAM PATIENT: Priscila Cha STUDY DATE: 06/21/2022 : 1955 AGE: 66 HT/WT: 160 cm (63 64.4 kg in) (141.7 lb) GENDER: F BP: 161 / 88 LOCATION: [facility] PATIENT Inpatient [facility] STATUS: *ORDERING PHYSICIAN: * Megan, *FELLOW: * Ramses Cardenas MD *READING PHYSICIAN: * Yuri, *FLOUR MIXER HELPER: * Lourdes Escamilla RDCS, MD, AE [facility] -- INDICATIONS: Chest Pain. -- HISTORY: COPD. -- CONCLUSIONS SUMMARY: 1. Left ventricle: The cavity size is normal. Wall thickness is normal. Systolic function is hyperdynamic by the biplane method of disks. The estimated ejection fraction is 71%. There are no regional wall motion abnormalities. Left ventricular diastolic function parameters are normal. 2. Right ventricle: The cavity size is normal. Systolic function is normal. Right ventricular systolic pressure is within the normal range. 3. No significant valve disease. -- STUDY DATA: Complete transthoracic echocardiogram. Procedure: Image quality was good. M-mode, complete 2D, complete spectral Doppler, and color flow Doppler images were acquired and archived for permanent storage and are available for subsequent review. Study status: Routine. Patient status: Inpatient. ECG RHYTHM: NSR -- FINDINGS LEFT VENTRICLE: The cavity size is normal. Wall thickness is normal. Systolic function is hyperdynamic by the biplane method of disks. The estimated ejection fraction is 71%. There are no regional wall motion abnormalities. Left ventricular diastolic function parameters are normal. RIGHT VENTRICLE: The cavity size is normal. Systolic function is normal. Right ventricular systolic pressure is within the normal range. LEFT ATRIUM: The atrium is normal in size. RIGHT ATRIUM: The atrium is normal in size. MITRAL VALVE: Structurally normal valve. Leaflet separation is normal. Doppler: Transvalvular velocity is within the normal range. There is no evidence for stenosis. There is no significant regurgitation. AORTIC VALVE: Trileaflet; moderately thickened, moderately calcified leaflets. Cusp separation is normal. Doppler: Transvalvular velocity is within the normal range. There is no stenosis. There is no regurgitation. Dimensionless index: 0.88. The valve area by the velocity-time integral method is 2.8 cm^2. The valve area index by the velocity-time integral method is 1.7 cm^2/m^2. The mean systolic gradient is 5 mm Hg. The peak systolic gradient is 9 mm Hg. The peak systolic velocity is 1.5 m/sec. TRICUSPID VALVE: Structurally normal valve. Leaflet separation is normal. Doppler: Transvalvular velocity is within the normal range. There is no evidence for stenosis. There is trivial, less than 1+ regurgitation. PULMONIC VALVE: Structurally normal valve. Cusp separation is normal. Doppler: Transvalvular velocity is within the normal range. There is trivial, less than 1+ regurgitation. AORTA: Aortic root: The aortic root is normal in size. Ascending aorta: The ascending aorta is normal in size. PERICARDIUM: There is no pericardial effusion. SYSTEMIC VEINS: Inferior vena cava: The vessel is normal in size. The IVC collapses by greater than 50% with inspiration. -- Measurements Value 03/02/2019 Reference Ascending aorta ID 3.2 cm 1.9 - 3.5 Ascending aorta ID/bsa, 1.9 cm/m^2 1.0 - 2.2 A-P Ascending aorta ID, A-P, 3.2 cm 3.2 S Ascending aorta ID/bsa, 1.9 cm/m^2 A-P, S Left ventricle Value 03/02/2019 Reference LV ID, ED 5.0 cm 4.1 3.8 - 5.2 LV ID, ES 3.1 cm 3.0 2.2 - 3.5 LV ID/bsa, ED 3.0 cm/m^2 2.3 - 3.1 LV ID/bsa, ES 1.8 cm/m^2 1.3 - 2.1 LV PW thickness, ED 0.7 cm 1.0 0.6 - 0.9 LV PW/LV ID ratio, ED 0.15 LV wall mass 106 g 66 - 150 LV wall mass/bsa 63 g/m^2 44 - 88 Stroke volume/bsa, 1-p 21.8 ml/m^2 A2C LV end-diastolic volume, 84 ml 71 48 - 140 1-p A4C LV end-systolic volume, 25 ml 27 12 - 60 1-p A4C LV end-diastolic volume, 69 ml 70 46 - 106 2-p LV end-systolic volume, 20 ml 28 14 - 42 2-p LV ejection fraction, 2-p 71 % 60 54 - 74 LV E/e', lateral 6.8 LV E/e', medial 7.7 LV E/e', average 7.2 Ventricular septu (more content not included)... [facility] Work Phone: ECHO Complete 2D W Doppler W ColorOrdered By: Lourdes Welch on 06-21-2022 [facility] Work Phone: Echo Complete w/wo Contrasto n 06-21-2022 Echo Complete w/wo Contrast Patient Name: PRISCILA CHA Ultrasound ACCESSION EXAM DATE/TIME PROCEDURE ORDERING PROVIDER [id number] 06/21/2022 14:20 EDT Echo Complete w/wo MD MEGAN, DONI Contrast Reason For Exam (Echo Complete w/wo Contrast) chest pain Report TRANSTHORACIC ECHOCARDIOGRAM PATIENT: Priscila Cha STUDY DATE: 06/21/2022 : 1955 AGE: 66 HT/WT: 160 cm (63 64.4 kg in) (141.7 lb) GENDER: F BP: 161 / 88 LOCATION: [facility] PATIENT Inpatient [facility] STATUS: *ORDERING PHYSICIAN: * Megan, *FELLOW: * Ramses Cardenas MD *READING PHYSICIAN: * Yuri, *FLOUR MIXER HELPER: * Priscila Perez [facility], Lourdes BYERS , [facility] -- INDICATIONS: Chest Pain. -- HISTORY: COPD. -- CONCLUSIONS SUMMARY: 1. Left ventricle: The cavity size is normal. Wall thickness is normal. Systolic function is hyperdynamic by the biplane method of disks. The estimated ejection fraction is 71%. There are no regional wall motion abnormalities. Left ventricular diastolic function parameters are normal. 2. Right ventricle: The cavity size is normal. Systolic function is normal. Right ventricular systolic pressure is within the normal range. 3. No significant valve disease. -- STUDY DATA: Complete transthoracic echocardiogram. Procedure: Image quality was good. M-mode, complete 2D, complete spectral Doppler, and color flow Doppler images were acquired and archived for permanent storage and are available for subsequent review. Study status: Routine. Patient status: Inpatient. ECG RHYTHM: NSR -- FINDINGS Ultrasound Report LEFT VENTRICLE: The cavity size is normal. Wall thickness is normal. Systolic function is hyperdynamic by the biplane method of disks. The estimated ejection fraction is 71%. There are no regional wall motion abnormalities. Left ventricular diastolic function parameters are normal. RIGHT VENTRICLE: The cavity size is normal. Systolic function is normal. Right ventricular systolic pressure is within the normal range. LEFT ATRIUM: The atrium is normal in size. RIGHT ATRIUM: The atrium is normal in size. MITRAL VALVE: Structurally normal valve. Leaflet separation is normal. Doppler: Transvalvular velocity is within the normal range. There is no evidence for stenosis. There is no significant regurgitation. AORTIC VALVE: Trileaflet; moderately thickened, moderately calcified leaflets. Cusp separation is normal. Doppler: Transvalvular velocity is within the normal range. There is no stenosis. There is no regurgitation. Dimensionless index: 0.88. The valve area by the velocity-time integral method is 2.8 cm^2. The valve area index by the velocity-time integral method is 1.7 cm^2/m^2. The mean systolic gradient is 5 mm Hg. The peak systolic gradient is 9 mm Hg. The peak systolic velocity is 1.5 m/sec. TRICUSPID VALVE: Structurally normal valve. Leaflet separation is normal. Doppler: Transvalvular velocity is within the normal range. There is no evidence for stenosis. There is trivial, less than 1+ regurgitation. PULMONIC VALVE: Structurally normal valve. Cusp separation is normal. Doppler: Transvalvular velocity is within the normal range. There is trivial, less than 1+ regurgitation. AORTA: Aortic root: The aortic root is normal in size. Ascending aorta: The ascending aorta is normal in size. PERICARDIUM: There is no pericardial effusion. SYSTEMIC VEINS: Inferior vena cava: The vessel is normal in size. The IVC collapses by greater than 50% with inspiration. -- Measurements Value 03/02/2019 Reference Ascending aorta ID 3.2 cm 1.9 - 3.5 Ascending aorta ID/bsa, 1.9 cm/m^2 1.0 - 2.2 A-P Ascending aorta ID, A-P, 3.2 cm 3.2 S Ascending aorta ID/bsa, 1.9 cm/m^2 A-P, S Left ventricle Value 03/02/2019 Reference LV ID, ED 5.0 cm 4.1 3.8 - 5.2 LV ID, ES 3.1 cm 3.0 2.2 - 3.5 LV ID/bsa, ED 3.0 cm/m^2 2.3 - 3.1 LV ID/bsa, ES 1.8 cm/m^2 1.3 - 2.1 LV PW thickness, ED 0.7 cm 1.0 0.6 - 0.9 LV PW/LV ID ratio, ED 0.15 LV wall mass 106 g 66 - 150 LV wall mass/bsa 63 g/m^2 44 - 88 Stroke volume/bsa, 1-p 21.8 ml/m^2 A2C LV end-diastolic volume, 84 ml 71 48 - 140 1-p A4C LV end-systolic volume, 25 ml 27 12 - 60 1-p A4C Ultrasound Report LV end-diastolic volume, 69 ml 70 46 - 106 2-p LV end-systolic v (more content not included)... Normal [facility] Glucose,Bedsideon 06-21-2022 Glucose [Mass/Vol] 158 mg/dL High 70-100 [facility] Comment on above: Result Comment: Test performed by glucose meter. Results may be 10%-15% lower than serum/plasma values. (CLIA ID [id number]) Performed By: #### B GLU #### [facility] [address] [place] [address] Glucose [Mass/Vol] 138 mg/dL High 70-100 [facility] Comment on above: Result Comment: Test performed by glucose meter. Results may be 10%-15% lower than serum/plasma values. (CLIA ID [id number]) Performed By: #### B GLU #### [facility] [address] [place] [address] Hemogram w/ [employer] 06-21 Abs Baso Cnt 0.0 10*3/uL Normal 0.0-0.2 [facility] Comment on above: Performed By: #### SOLEDAD ENGEL #### [facility] [address], [place] Abs Neutrophile Cnt 13.5 10*3/uL High 1.8-7.0 [facility] Comment on above: Performed By: #### SOLEDAD ENGEL #### [facility] Simple [address], [place] Basophils/100 WBC (Bld) 0.2 % Normal 0.0-2.0 [facility] Comment on above: Performed By: #### SOLEDAD ENGEL #### [facility] [address], [place] Eosinophils (Bld) [#/Vol] 0.0 10*3/uL Normal 0.0-0.5 [facility] Comment on above: Performed By: #### SOLEDAD ENGEL #### [facility] [address], [place] Eosinophils/100 WBC (Bld) 0.0 % Low 1.0-6.0 [facility] Comment on above: Performed By: #### SOLEDAD ENGEL #### [facility] [address], [place] Erythrocyte distribution width (RBC) [Ratio] 16.4 % High 11.5-14.5 [facility] Comment on above: Performed By: #### SOLEDAD ENGEL #### [place] [address], [place] Granulocytes/100 WBC (Bld) 90.6 % High 40.0-80.0 [facility] Comment on above: Performed By: #### SOLEDAD ENGEL #### [place] [address], [place] Hematocrit (Bld) [Volume fraction] 35.9 % Normal 35.0-47.0 [facility] Comment on above: Performed By: #### SOLEDAD ENGEL #### [place] [address], [place] Hemoglobin (Bld) [Mass/Vol] 12.0 g/dL Normal 11.7-16.0 [facility] Comment on above: Performed By: #### SOLEDAD ENGEL #### [place] [address], [place] Lymphocytes (Bld) [#/Vol] 0.6 10*3/uL Low 1.0-4.3 [facility] Comment on above: Performed By: #### SOLEDAD ENGEL #### [place] [address] [address], [place] Lymphocytes/100 WBC (Bld) 4.3 % Low 20.0-40.0 [facility] Comment on above: Performed By: #### SOLEDAD ENGEL #### [place] [address], [place] MCH (RBC) [Entitic mass] 28.4 pg Normal 26.0-34.0 [facility] Comment on above: Performed By: #### SOLEDAD ENGEL #### [place] [address] [address], [place] MCHC 33.3 % Normal 32.0-36.0 [facility] Comment on above: Performed By: #### SOLEDAD ENGEL #### [place] [address] [address], [place] MCV (RBC) [Entitic vol] 85.2 fL Normal 79.0-98.0 [facility] Comment on above: Performed By: #### SOLEDAD ENGEL #### [place] [address] [address], [place] Monocytes (Bld) [#/Vol] 0.7 10*3/uL Normal 0.0-0.8 [facility] Comment on above: Performed By: #### SOLEDAD ENGEL #### [place] [address] [address], [place] Monocytes/100 WBC (Bld) 4.9 % Normal 2.0-10.0 [facility] Comment on above: Performed By: #### SOLEDAD ENGEL #### [place] [address] [address], [place] Platelet mean volume (Bld) [Entitic vol] 7.9 fL Normal 7.4-12.4 [facility] Comment on above: Result Comment: MPV is a calculated measurement using platelet volume ratio. Performed By: #### SOLEDAD ENGEL #### [place] [address] [address], [place] Platelets (Bld) [#/Vol] 314 10*3/uL Normal 140-440 [facility] Comment on above: Performed By: #### SOLEDAD ENGEL #### [place] [address] [address], [place] RBC (Bld) [#/Vol] 4.22 10*6/uL Normal 3.80-5.20 [facility] Comment on above: Performed By: #### SOLEDAD ENGEL #### [place] [address] [address], [place] WBC (Bld) [#/Vol] 14.9 10*3/uL High 3.6-10.7 [facility] Comment on above: Performed By: #### SOLEDAD ENGEL #### [place] [address] [address], [place] POCT GlucoseOrdered By: Jad Billy on 06-21-2022 Glucose [Mass/Vol] 158 mg/dL High 70 - 100 mg/dL [facility] Work Phone: Comment on above: Test performed by gl ucose meter. Results may be 10%-15% lower than serum/plasma values. (CLIA ID [id number]) Interpretation and review of laboratory results Abnormal [facility] Work Phone: [facility] Work Phone: POCT Glucoseon 06-21-2022 Test Performed by [facility], [address] LAB Test Performed by [facility], [address], [address] LAB POCT GlucoseOrdered By: Zaida Lim on 06-21-2022 Glucose [Mass/Vol] 138 mg/dL High 70 - 100 mg/dL [facility] Comment on above: Test performed by gl ucose meter. Results may be 10%-15% lower than serum/plasma values. (CLIA ID [id number]) Interpretation and review of laboratory results Abnormal [facility] Troponinon 06-21-2022 Troponin I.cardiac [Mass/Vol] ng/mL 0 - 0.034 ng/mL [facility] Comment on above: . Test Performed by [facility], [address], [address] LAB [facility] Troponin Ion 06-21-2022 Troponin I.cardiac [Mass/Vol] ng/mL Normal 0.000-0.034 [facility] Comment on above: Result Comment: . Performed By: #### S SOLEDAD HOFFMAN #### [facility] [address] [place] [address] US ABDOMEN LIMITED Specify o rgan? LIVER, GALLBLADDER, PANCREASon 06-21-2022 Patient Name: PRISCILA CHA Ultrasound ACCESSION EXAM DATE/TIME PROCEDURE ORDERING PROVIDER [id number] 06/21/2022 17:20 EDT US Abdomen Limited MD GUZMAN PRAMOD CPT code 39173 Reason For Exam (US Abdomen Limited) pleuritic right sided pain Report Indication: Pleuritic right-sided pain. FINDINGS: The liver is dense and mildly heterogeneous, 12.4 cm. No intrahepatic ductal dilatation. Gallbladder negative. No Quezada's sign. Common duct normal prominent 10 mm. No visible stone in the visualized segments. Pancreas body are unremarkable. Head and tail not seen well due to bowel gas. Right kidney shows no hydronephrosis and measures 8 cm. Aorta IVC unremarkable except for tortuous atherosclerotic aorta. IMPRESSION: Prominent common bile duct etiology uncertain. Consider follow-up which may include MRCP. Heterogeneous dense liver suspicious for chronic change. Atherosclerosis. Limited by bowel gas. Report Dictated on --- Final --- Dictating Physician: MD DIETZ JOHN Signed Date and Time: 06/21/2022 7:31 pm Signed by: MD DIETZ JOHN Transcribed Date and Time: 06/21/2022 7:32 [facility] Kavon Dietz MD - 06/21/2022 Patient Name: PRISCILA CHA Ultrasound ACCESSION EXAM DATE/TIME PROCEDURE ORDERING PROVIDER [id number] 06/21/2022 17:20 EDT US Abdomen Limited MD GUZMAN PRAMOD CPT code 74834 Reason For Exam (US Abdomen Limited) pleuritic right sided pain Report Indication: Pleuritic right-sided pain. FINDINGS: The liver is dense and mildly heterogeneous, 12.4 cm. No intrahepatic ductal dilatation. Gallbladder negative. No Quezada's sign. Common duct normal prominent 10 mm. No visible stone in the visualized segments. Pancreas body are unremarkable. Head and tail not seen well due to bowel gas. Right kidney shows no hydronephrosis and measures 8 cm. Aorta IVC unremarkable except for tortuous atherosclerotic aorta. IMPRESSION: Prominent common bile duct etiology uncertain. Consider follow-up which may include MRCP. Heterogeneous dense liver suspicious for chronic change. Atherosclerosis. Limited by bowel gas. Report Dictated on --- Final --- Dictating Physician: MD DIETZ JOHN Signed Date and Time: 06/21/2022 7:31 pm Signed by: MD DIETZ JOHN Transcribed Date and Time: 06/21/2022 7:32 [facility] Work Phone: Radiology Study observation (narrative) [facility] Work Phone: US ABDOMEN LIMITED Specify o rgan? LIVER, GALLBLADDER, PANCREASOrdered By: Kavon Dietz on 06-21-2022 [facility] Work Phone: US Abdomen Limitedon 022 US Abdomen Limited Patient Name: PRISCILA CHA Ultrasound ACCESSION EXAM DATE/TIME PROCEDURE ORDERING PROVIDER [id number] 06/21/2022 17:20 EDT US Abdomen Limited MD GUZMAN PRAMOD CPT code 79081 Reason For Exam (US Abdomen Limited) pleuritic right sided pain Report Indication: Pleuritic right-sided pain. FINDINGS: The liver is dense and mildly heterogeneous, 12.4 cm. No intrahepatic ductal dilatation. Gallbladder negative. No Quezada's sign. Common duct normal prominent 10 mm. No visible stone in the visualized segments. Pancreas body are unremarkable. Head and tail not seen well due to bowel gas. Right kidney shows no hydronephrosis and measures 8 cm. Aorta IVC unremarkable except for tortuous atherosclerotic aorta. IMPRESSION: Prominent common bile duct etiology uncertain. Consider follow-up which may include MRCP. Heterogeneous dense liver suspicious for chronic change. Atherosclerosis. Limited by bowel gas. Report Dictated on Final Dictating Physician: MD DIETZ JOHN Signed Date and Time: 06/21/2022 7:31 pm Signed by: MD DIETZ JOHN Transcribed Date and Time: 06/21/2022 7:32 Normal [facility] Basic Metabolic Panelon 10-0 Calcium [Mass/Vol] 9.2 mg/dL Normal 8.4-10.4 [facility] Comment on above: Performed By: #### C VFLR #### [facility] [address] [place] [address] , [address] Glucose [Mass/Vol] 170 mg/dL High 70-100 [facility] Comment on above: Performed By: #### C VFLR #### [facility] [address] [place] [address] , [address] Anion gap [Moles/Vol] 6 mmol/L Normal 3-13 [facility] Comment on above: Performed By: #### C VFLR #### [facility] [address] [place] [address] , [address] CO2 [Moles/Vol] 23 mmol/L Normal 22-30 [facility] Comment on above: Performed By: #### C VFLR #### [facility] [address] [place] [address] , [address] Creatinine [Mass/Vol] 0.61 mg/dL Normal 0.52-1.25 [facility] Comment on above: Performed By: #### C VFLR #### [facility] [address] [place] [address] , [address] eGFR OTHER > 90.0 Normal >60 [facility] Comment on above: Result Comment: KDIG O guidelines provide the following GFR categories: Stage GFR(ml/min/1.73 m2) Terms G1 >=90 Normal or high G2 60-89 Mildly decreased* G3a 45-59 Mildly to moderately decreased G3b 30-44 Moderately to severely decreased G4 15-29 Severely decreased G5 <15 Kidney failure *Relative to young adult level. In the absence of evidence of kidney damage, neither GFR category G1 nor G2 fulfill the criteria for CKD. The CKD-EPI equation is validated in individuals 18 years of age and older. Currently the best equation for estimating glomerular filtration rate (GFR) from serum creatinine in children is the Bedside Olivera equation. It is less accurate in patients with extremes of muscle mass, restriction of dietary protein, ingestion of creatine, extra-renal metabolism of creatinine, or treatment with medications that affect renal tubular creatinine secretion. Performed By: #### C VFLR #### [facility] [address] [place] [address] , [address] GFR/1.73 sq M.predicted among blacks MDRD (S/P/Bld) [Vol rate/Area] mL/min/{1.73_m2} Normal >60 [facility] Comment on above: Performed By: #### C VFLR #### [facility] [address] [place] [address] , [address] Urea nitrogen [Mass/Vol] 17 mg/dL Normal 9-20 [facility] Comment on above: Performed By: #### C VFLR #### [facility] [address] [place] [address] , [address] Chloride [Moles/Vol] 106 mmol/L Normal 98-107 [facility] Comment on above: Performed By: #### C VFLR #### [facility] [address] [place] [address] , [address] Potassium [Moles/Vol] 4.0 mmol/L Normal 3.5-5.1 [facility] Comment on above: Performed By: #### C VFLR #### [facility] [address] [place] [address] , [address] Sodium [Moles/Vol] 135 mmol/L Normal 135-145 [facility] Comment on above: Performed By: #### C VFLR #### [facility] [address] [place] [address] , [address] Basic Metabolic Panel w/ Ref irlanda to MGon 06-20-2022 Anion gap [Moles/Vol] 6 mmol/L 3 - 13 mmol/L [facility] Calcium [Mass/Vol] 9.2 mg/dL 8.4 - 10. 4 mg/dL [facility] Chloride [Moles/Vol] 106 mmol/L 98 - 10 7 mmol/L [facility] CO2 [Moles/Vol] 23 mmol/L 22 - 30 mmol/L [facility] Creatinine [Mass/Vol] 0.61 mg/dL 0.52 - 1.25 mg/dL [facility] eGFR mL/min 60 - P INF mL/min [facility] EGFR IF NonAfrican Burmese mL/min 60 - PINF mL/min [facility] Comment on above: KDIGO guidelines pro vide the following GFR categories: Stage GFR(ml/min/1.73 m2) Terms G1 >=90 Normal or high G2 60-89 Mildly decreased* G3a 45-59 Mildly to moderately decreased G3b 30-44 Moderately to severely decreased G4 15-29 Severely decreased G5 <15 Kidney failure *Relative to young adult level. In the absence of evidence of kidney damage, neither GFR category G1 nor G2 fulfill the criteria for CKD. The CKD-EPI equation is validated in individuals 18 years of age and older. Currently the best equation for estimating glomerular filtration rate (GFR) from serum creatinine in children is the Bedside Olivera equation. It is less accurate in patients with extremes of muscle mass, restriction of dietary protein, ingestion of creatine, extra-renal metabolism of creatinine, or treatment with medications that affect renal tubular creatinine secretion. Glucose [Mass/Vol] 170 mg/dL High 70 - 100 mg/dL [facility] Interpretation and review of laboratory results Abnormal [facility] Potassium [Moles/Vol] 4.0 mmol/L 3.5 - 5.1 mmol/L [facility] Sodium [Moles/Vol] 135 mmol/L 135 - 145 mmol/L [facility] Urea nitrogen (BldV) [Mass/Vol] 17 mg/dL 9 - 20 mg/dL [facility] Test Performed by [facility], [address] LAB [facility] CBC with Auto Differentialon 06-20-2022 Absolute Baso # 0.0 10*3/uL 0 - 0.2 10*3/uL [facility] Absolute Neut # 9.3 10*3/uL High 1.8 - 7 10*3/uL [facility] Basophils/100 WBC (Bld) 0.1 % 0 - 2 % [facility] Eosinophils (Bld) [#/Vol] 0.0 10*3/uL 0 - 0.5 10*3/uL [facility] Eosinophils/100 WBC (Bld) 0.0 % Low 1 - 6 % [facility] Granulocytes/100 WBC (Bld) 94.7 % High 40 - 80 % [facility] Hematocrit (Bld) [Volume fraction] 39.6 % 35 - 47 % [facility] Hemoglobin (Bld) [Mass/Vol] 13.1 g/dL 11.7 - 16 g/dL [facility] Interpretation and review of laboratory results Abnormal [facility] Lymphocytes (Bld) [#/Vol] 0.4 10*3/uL Low 1 - 4.3 10*3/uL [facility] Lymphocytes/100 WBC (Bld) 4.2 % Low 20 - 40 % [facility] MCH (RBC) [Entitic mass] 28.7 pg 26 - 34 pg [facility] MCHC (RBC) [Mass/Vol] 33.1 % 32 - 36 % [facility] MCV (RBC) [Entitic vol] 86.7 fL 79 - 98 fL [facility] Monocytes (Bld) [#/Vol] 0.1 10*3/uL 0 - 0.8 10*3/uL [facility] Monocytes/100 WBC (Bld) 1.0 % Low 2 - 10 % [facility] Platelet distribution width (Bld) [Ratio] 16.3 % High 11.5 - 14.5 % [facility] Platelet mean volume (Bld) [Entitic vol] 7.6 fL 7.4 - 12.4 fL [facility] Comment on above: MPV is a calculated measurement using platelet volume ratio. Platelets (Bld) [#/Vol] 297 10*3/uL 140 - 440 10*3/uL [facility] RBC (Bld) [#/Vol] 4.56 10*6/uL 3.8 - 5.2 10*6/uL [facility] WBC (Bld) [#/Vol] 9.8 10*3/uL 3.6 - 10.7 10*3/uL [facility] Test Performed by [facility], [address] LAB [facility] CR Chest Portableon 06-20-20 22 CR Chest Portable Patient Name: PRISCILA CHA Diagnostic Radiology ACCESSION EXAM DATE/TIME PROCEDURE ORDERING PROVIDER [id number] 06/20/2022 19:27 EDT CR Chest Portable [id number] ANNABEL BRANDT CPT code 06446 Reason For Exam (CR Chest Portable) chest pain Report CHEST PORTABLE CLINICAL INDICATION: chest pain TECHNIQUE: Portable chest x-ray(s). COMPARISON: 1 day prior.. FINDINGS: Cardiac and mediastinal silhouette within normal limits. Lungs show interstitial prominence or coarsening bilaterally, about the same. No focal consolidation or apparent pneumothorax. Bony thorax grossly unremarkable. IMPRESSION: 1. Stable examination. No acute findings. Report Dictated on Workstation: [id number] Final Dictating Physician: MD HUGHES WENDELL Signed Date and Time: 06/20/2022 9:02 pm Signed by: MD HUGHES WENDELL Transcribed Date and Time: 06/20/2022 9:03 Normal [facility] CTA CHEST W WO CONTRASTon Radiology Study observation (narrative) [facility] Work Phone: Glucose,Bedsideon 06-20-2022 Glucose [Mass/Vol] 186 mg/dL High 70-100 [facility] Comment on above: Result Comment: Test performed by glucose meter. Results may be 10%-15% lower than serum/plasma values. (CLIA ID [id number]) Performed By: #### SOLEDAD ENGEL #### [facility] [address] [place] [address] Glucose [Mass/Vol] 190 mg/dL High 70-100 [facility] Comment on above: Result Comment: Test performed by glucose meter. Results may be 10%-15% lower than serum/plasma values. (CLIA ID [id number]) Performed By: #### C VFLR #### [facility] [address] [place] [address] , [address] Glucose [Mass/Vol] 238 mg/dL High 70-100 [facility] Comment on above: Result Comment: Test performed by glucose meter. Results may be 10%-15% lower than serum/plasma values. (CLIA ID [id number]) Performed By: #### SOLEDAD ENGEL #### [facility] [address] [place] [address] Hemogram w/ Autodiffon 06-20 Abs Baso Cnt 0.0 10*3/uL Normal 0.0-0.2 [facility] [place] [facility] Comment on above: Performed By: #### C VFLR #### [facility] [address] [place] [address] , [address] Abs Neutrophile Cnt 9.3 10*3/uL High 1.8-7.0 [facility] Comment on above: Performed By: #### C VFLR #### [facility] [address] [place] [address] , [address] Basophils/100 WBC (Bld) 0.1 % Normal 0.0-2.0 [facility] Comment on above: Performed By: #### C VFLR #### [facility] [address] [place] [address] , [address] Eosinophils (Bld) [#/Vol] 0.0 10*3/uL Normal 0.0-0.5 [facility] Comment on above: Performed By: #### C VFLR #### [facility] [address] [place] [address] , [address] Eosinophils/100 WBC (Bld) 0.0 % Low 1.0-6.0 [facility] Comment on above: Performed By: #### C VFLR #### [facility] [address] [place] [address] , [address] Erythrocyte distribution width (RBC) [Ratio] 16.3 % High 11.5-14.5 [facility] Comment on above: Performed By: #### C VFLR #### [facility] [address] [place] [address] , [address] Granulocytes/100 WBC (Bld) 94.7 % High 40.0-80.0 [facility] Comment on above: Performed By: #### C VFLR #### [facility] [address] [place] [address] , [address] Hematocrit (Bld) [Volume fraction] 39.6 % Normal 35.0-47.0 [facility] Comment on above: Performed By: #### C VFLR #### [facility] [address] [place] [address] , [address] Hemoglobin (Bld) [Mass/Vol] 13.1 g/dL Normal 11.7-16.0 [facility] Comment on above: Performed By: #### C VFLR #### [facility] [address] [place] [address] , [address] Lymphocytes (Bld) [#/Vol] 0.4 10*3/uL Low 1.0-4.3 [facility] Comment on above: Performed By: #### C VFLR #### [facility] [address] [place] [address] , [address] Lymphocytes/100 WBC (Bld) 4.2 % Low 20.0-40.0 [facility] Comment on above: Performed By: #### C VFLR #### [facility] [address] [place] [address] , [address] MCH (RBC) [Entitic mass] 28.7 pg Normal 26.0-34.0 [facility] Comment on above: Performed By: #### C VFLR #### [facility] [address] [place] [address] , [address] MCHC 33.1 % Normal 32.0-36.0 [facility] Comment on above: Performed By: #### C VFLR #### [facility] [address] [place] [address] , [address] MCV (RBC) [Entitic vol] 86.7 fL Normal 79.0-98.0 [facility] Comment on above: Performed By: #### C VFLR #### [facility] [address] [place] [address] , [address] Monocytes (Bld) [#/Vol] 0.1 10*3/uL Normal 0.0-0.8 [facility] Comment on above: Performed By: #### C VFLR #### [facility] [address] [place] [address] , [address] Monocytes/100 WBC (Bld) 1.0 % Low 2.0-10.0 [facility] Comment on above: Performed By: #### C VFLR #### [facility] [address] [place] [address] , [address] Platelet mean volume (Bld) [Entitic vol] 7.6 fL Normal 7.4-12.4 [facility] Comment on above: Result Comment: MPV is a calculated measurement using platelet volume ratio. Performed By: #### C VFLR #### [facility] [address] [place] [address] , [address] Platelets (Bld) [#/Vol] 297 10*3/uL Normal 140-440 [facility] Comment on above: Performed By: #### C VFLR #### [facility] [address] [place] [address] , [address] RBC (Bld) [#/Vol] 4.56 10*6/uL Normal 3.80-5.20 [facility] Comment on above: Performed By: #### C VFLR #### [facility] [address] [place] [address] , [address] WBC (Bld) [#/Vol] 9.8 10*3/uL Normal 3.6-10.7 [facility] Comment on above: Performed By: #### C VFLR #### [facility] [address] [place] [address] , [address] POCT GlucoseOrdered By: Leo Sellers on 06-20-2022 Glucose [Mass/Vol] 186 mg/dL High 70 - 100 mg/dL [facility] Comment on above: Test performed by gl ucose meter. Results may be 10%-15% lower than serum/plasma values. (CLIA ID [id number]) Interpretation and review of laboratory results Abnormal [facility] POCT Glucoseon 06-20-2022 Test Performed by [facility], [address] [place], [place] [id number] [place] [address] LAB Glucose [Mass/Vol] 190 mg/dL High 70 - 100 mg/dL [facility] Work Phone: Comment on above: Test performed by gl ucose meter. Results may be 10%-15% lower than serum/plasma values. (CLIA ID [id number]) Interpretation and review of laboratory results Abnormal [facility] Work Phone: Test Performed by [facility], [address] [place], [place] [id number] [place] [address] LAB [facility] Work Phone: Test Performed by [facility], [address] LAB POCT GlucoseOrdered By: Chhaya Alberto on 06-20-2022 Glucose [Mass/Vol] 238 mg/dL High 70 - 100 mg/dL [facility] Comment on above: Test performed by gl ucose meter. Results may be 10%-15% lower than serum/plasma values. (CLIA ID [id number]) Interpretation and review of laboratory results Abnormal [facility] Procalcitoninon 06-20-2022 Procalcitonin 0.13 ng/mL High 0.00-0.09 [facility] Comment on above: Performed By: #### C VFLR #### [facility] [address] [place] [address] , [address] Interpretation See Below [facility] Comment on above: PCT <0.50 = Low risk of severe sepsis and/or septic shock. PCT >2.00 = High risk of severe sepsis and/or septic shock. Interpretation and review of laboratory results Abnormal [facility] Procalcitonin 0.13 ng/mL High 0 - 0.09 ng/mL [facility] Test Performed by [facility], [address] [place] [id number] [facility] LAB [facility] Troponinon 06-20-2022 Troponin I.cardiac [Mass/Vol] ng/mL 0 - 0.034 ng/mL [facility] Work Phone: Comment on above: . Test Performed by [facility], [address], [place], [place] [id number] [place] [id number] [facility] Work Phone: Troponin Ion 06-20-2022 Troponin I.cardiac [Mass/Vol] ng/mL Normal 0.000-0.034 [facility] Comment on above: Result Comment: . Performed By: #### S SOLEDAD HOFFMAN #### [address] [address] XR CHEST PORTABLEon 06-20-20 Patient Name: PRISCILA CHA Diagnostic Radiology ACCESSION EXAM DATE/TIME PROCEDURE ORDERING PROVIDER [id number] 06/20/2022 19:27 EDT CR Chest Portable [id number] ANNABEL BRANDT CPT code 94244 Reason For Exam (CR Chest Portable) chest pain Report CHEST PORTABLE CLINICAL INDICATION: chest pain TECHNIQUE: Portable chest x-ray(s). COMPARISON: 1 day prior.. FINDINGS: Cardiac and mediastinal silhouette within normal limits. Lungs show interstitial prominence or coarsening bilaterally, about the same. No focal consolidation or apparent pneumothorax. Bony thorax grossly unremarkable. IMPRESSION: 1. Stable examination. No acute findings. Report Dictated on Workstation: [id number] --- Final --- Dictating Physician: MD HUGHES WENDELL Signed Date and Time: 06/20/2022 9:02 pm Signed by: MD HUGHES WENDELL Transcribed Date and Time: 06/20/2022 9:03 [facility] [facility] Jairo Hughes MD - 06/20/2022 Patient Name: PRISCILA CHA Diagnostic Radiology ACCESSION EXAM DATE/TIME PROCEDURE ORDERING PROVIDER [id number] 06/20/2022 19:27 EDT CR Chest Portable [id number] ANNABEL BRANDT CPT code 95401 Reason For Exam (CR Chest Portable) chest pain Report CHEST PORTABLE CLINICAL INDICATION: chest pain TECHNIQUE: Portable chest x-ray(s). COMPARISON: 1 day prior.. FINDINGS: Cardiac and mediastinal silhouette within normal limits. Lungs show interstitial prominence or coarsening bilaterally, about the same. No focal consolidation or apparent pneumothorax. Bony thorax grossly unremarkable. IMPRESSION: 1. Stable examination. No acute findings. Report Dictated on Workstation: [id number] --- Final --- Dictating Physician: MD HUGHES WENDELL Signed Date and Time: 06/20/2022 9:02 pm Signed by: MD HUGHES WENDELL Transcribed Date and Time: 06/20/2022 9:03 [facility] Work Phone: Radiology Study observation (narrative) [facility] Work Phone: XR CHEST PORTABLEOrdered By: Jairo Hughes on 06-20-2022 [facility] Work Phone: Brain Natriuretic Peptideon 06-19-2022 Interpretation and review of laboratory results Abnormal [facility] Natriuretic peptide B (Bld) [Mass/Vol] 696 pg/mL High 0 - 125 pg/mL [facility] CBCon 06-19-2022 Hematocrit (Bld) [Volume fraction] 38.8 % 35 - 47 % [facility] Hemoglobin (Bld) [Mass/Vol] 12.8 g/dL 11.7 - 16 g/dL [facility] Interpretation and review of laboratory results Abnormal [facility] MCH (RBC) [Entitic mass] 28.1 pg 26 - 34 pg [facility] MCHC (RBC) [Mass/Vol] 33.1 % 32 - 36 % [facility] MCV (RBC) [Entitic vol] 84.9 fL 79 - 98 fL [facility] Platelet distribution width (Bld) [Ratio] 16.3 % High 11.5 - 14.5 % [facility] Platelet mean volume (Bld) [Entitic vol] 7.4 fL 7.4 - 12.4 fL [facility] Comment on above: MPV is a calculated measurement using platelet volume ratio. Platelets (Bld) [#/Vol] 301 10*3/uL 140 - 440 10*3/uL [facility] RBC (Bld) [#/Vol] 4.57 10*6/uL 3.8 - 5.2 10*6/uL [facility] WBC (Bld) [#/Vol] 11.8 10*3/uL High 3.6 - 10.7 10*3/uL [facility] Test Performed by [facility], [address] [facility] COVID-19, Flu A/B, and RSV C omboon 06-19-2022 Influenza A by PCR Not detected [facility] Influenza B by PCR Not detected [facility] A RSV PCR Not Detected. Expected Result: Not Detected _ Method: Real-time, RT-PCR This assay was developed by [employer] and distributed under an Emergency Use Authorization (EUA) granted by the FDA for the qualitative detection of nucleic acids from SARS-CoV-2, Influenza A, Influenza B, and Respiratory Syncytial Virus. Provider and patient fact sheets can be found at https://www.fda.gov/med ia/465193/download and https://www.fda.gov/med ia/051627/download. [facility] SARS-CoV-2 (COVID-19) RNA JACKIE+probe Ql (Unsp spec) Not detected [facility] Test Performed by [facility], [address] [facility] CR Chest Portableon 06-19-20 22 CR Chest Portable Patient Name: PRISCILA CHA Diagnostic Radiology ACCESSION EXAM DATE/TIME PROCEDURE ORDERING PROVIDER [id number] 06/19/2022 17:22 EDT CR Chest Portable [id number] DERAS CPT code 20966 Reason For Exam (CR Chest Portable) Chest Pain Report CHEST CLINICAL INDICATION: Chest pain TECHNIQUE: AP COMPARISON: 01/14/2022 chest x-ray FINDINGS: Lines and tubes: None. Cardiomediastinal: The cardiomediastinal silhouette is within normal limits. Atherosclerotic calcifications are seen at the aortic knob. Lungs: Stable appearance of coarse interstitial lung markings likely representing chronic lung changes. No pleural effusion, focal consolidation or pneumothorax. Osseous structures: No acute osseous abnormality. IMPRESSION: No acute cardiopulmonary process. Stable chronic lung changes. Report Dictated on Final Dictating Physician: MD DALY PATRICK Signed Date and Time: 06/19/2022 6:07 pm Signed by: MD DALY PATRICK Transcribed Date and Time: 06/19/2022 6:08 Normal [facility] Comp Metabolic Panelon 06-19 Calcium [Mass/Vol] 9.2 mg/dL Normal 8.4-10.4 [facility] Comment on above: Performed By: #### SOLEDAD ENGEL #### [facility] [address], [place] ALP [Catalytic activity/Vol] 59 U/L Normal 38-126 [facility] Comment on above: Performed By: #### SOLEDAD ENGEL #### [facility] [address], [place] ALT [Catalytic activity/Vol] 16 U/L Normal 0-34 [facility] Comment on above: Result Comment: The ALT test is performed by an updated assay method. Please note that the reference intervals have been changed and are now sex specific. Performed By: #### SOLEDAD ENGEL #### [facility] [address], [place] Anion gap [Moles/Vol] 3 mmol/L Normal 3-13 [facility] Comment on above: Performed By: #### SOLEDAD ENGEL #### [facility] [address], [place] AST [Catalytic activity/Vol] 23 U/L Normal 15-46 [facility] Comment on above: Performed By: #### SOLEDAD ENGEL #### [facility] [address] [place] [address] Bilirubin [Mass/Vol] 0.4 mg/dL Normal 0.2-1.3 [facility] Comment on above: Performed By: #### SOLEDAD ENGEL #### [facility] [address] [place] [address] CO2 [Moles/Vol] 28 mmol/L Normal 22-30 [facility] Comment on above: Performed By: #### SOLEDAD ENGEL #### [facility] [address] [place] [address] Creatinine [Mass/Vol] 0.70 mg/dL Normal 0.52-1.25 [facility] Comment on above: Performed By: #### SOLEDAD ENGEL #### [facility] [address] [place] [address] GFR/1.73 sq M.predicted among blacks MDRD (S/P/Bld) [Vol rate/Area] mL/min/{1.73_m2} Normal >60 [facility] Comment on above: Performed By: #### SOLEDAD ENGEL #### [facility] [address] [place] [address] GFR/1.73 sq M.predicted among non-blacks MDRD (S/P/Bld) [Vol rate/Area] 89.9 mL/min/{1.73_m2} Normal >60 [facility] Comment on above: Result Comment: KDIG O guidelines provide the following GFR categories: Stage GFR(ml/min/1.73 m2) Terms G1 >=90 Normal or high G2 60-89 Mildly decreased* G3a 45-59 Mildly to moderately decreased G3b 30-44 Moderately to severely decreased G4 15-29 Severely decreased G5 <15 Kidney failure *Relative to young adult level. In the absence of evidence of kidney damage, neither GFR category G1 nor G2 fulfill the criteria for CKD. The CKD-EPI equation is validated in individuals 18 years of age and older. Currently the best equation for estimating glomerular filtration rate (GFR) from serum creatinine in children is the Bedside Olivera equation. It is less accurate in patients with extremes of muscle mass, restriction of dietary protein, ingestion of creatine, extra-renal metabolism of creatinine, or treatment with medications that affect renal tubular creatinine secretion. Performed By: #### SOLEDAD ENGEL #### [facility] [address], [place] Glucose [Mass/Vol] 127 mg/dL High 70-100 [facility] Comment on above: Performed By: #### SOLEDAD ENGEL #### [facility] [address], [place] Protein [Mass/Vol] 6.9 g/dL Normal 6.3-8.2 [facility] Comment on above: Performed By: #### SOLEDAD ENGEL #### [place] [address] [address], [place] Urea nitrogen [Mass/Vol] 15 mg/dL Normal 9-20 [facility] Comment on above: Performed By: #### SOLEDAD ENGEL #### [place] [address] [address], [place] Albumin [Mass/Vol] 3.8 g/dL Normal 3.5-5.0 [facility] Comment on above: Performed By: #### SOLEDAD ENGEL #### [place] [address] [address], [place] Chloride [Moles/Vol] 106 mmol/L Normal 98-107 [facility] Comment on above: Performed By: #### SOLEDAD ENGEL #### [place] [address] [address], [place] Potassium [Moles/Vol] 3.7 mmol/L Normal 3.5-5.1 [facility] Comment on above: Performed By: #### SOLEDAD ENGEL #### [place] [address] [address], [place] Sodium [Moles/Vol] 137 mmol/L Normal 135-145 [facility] Comment on above: Performed By: #### SOLEDAD ENGEL #### [place] [address] [place] [address] Comprehensive Metabolic Pane miles 06-19-2022 Albumin [Mass/Vol] 3.8 g/dL 3.5 - 5 g/dL [facility] ALP (Bld) [Catalytic activity/Vol] 59 U/L 38 - 126 U/L [facility] ALT [Catalytic activity/Vol] 16 U/L 0 - 34 U/L [facility] Comment on above: The ALT test is perf ormed by an updated assay method. Please note that the reference intervals have been changed and are now sex specific. Anion gap [Moles/Vol] 3 mmol/L 3 - 13 mmol/L [facility] AST [Catalytic activity/Vol] 23 U/L 15 - 46 U/L [facility] Bilirubin [Mass/Vol] 0.4 mg/dL 0.2 - 1 .3 mg/dL [facility] Calcium [Mass/Vol] 9.2 mg/dL 8.4 - 10. 4 mg/dL [facility] Chloride [Moles/Vol] 106 mmol/L 98 - 10 7 mmol/L [facility] CO2 [Moles/Vol] 28 mmol/L 22 - 30 mmol/L [facility] Creatinine [Mass/Vol] 0.7 mg/dL 0.52 - 1.25 mg/dL [facility] eGFR mL/min 60 - P INF mL/min [facility] EGFR IF NonAfrican Burmese 89.9 mL/min 60 - PINF mL/min [facility] Comment on above: KDIGO guidelines pro vide the following GFR categories: Stage GFR(ml/min/1.73 m2) Terms G1 >=90 Normal or high G2 60-89 Mildly decreased* G3a 45-59 Mildly to moderately decreased G3b 30-44 Moderately to severely decreased G4 15-29 Severely decreased G5 <15 Kidney failure *Relative to young adult level. In the absence of evidence of kidney damage, neither GFR category G1 nor G2 fulfill the criteria for CKD. The CKD-EPI equation is validated in individuals 18 years of age and older. Currently the best equation for estimating glomerular filtration rate (GFR) from serum creatinine in children is the Bedside Olivera equation. It is less accurate in patients with extremes of muscle mass, restriction of dietary protein, ingestion of creatine, extra-renal metabolism of creatinine, or treatment with medications that affect renal tubular creatinine secretion. Glucose [Mass/Vol] 127 mg/dL High 70 - 100 mg/dL [facility] Interpretation and review of laboratory results Abnormal [facility] Potassium [Moles/Vol] 3.7 mmol/L 3.5 - 5.1 mmol/L [facility] Protein [Mass/Vol] 6.9 g/dL 6.3 - 8.2 g/dL [facility] Sodium [Moles/Vol] 137 mmol/L 135 - 145 mmol/L [facility] Urea nitrogen (BldV) [Mass/Vol] 15 mg/dL 9 - 20 mg/dL [facility] Test Performed by [facility], [address], [place], [place] [address] [facility] ED Provider Noteon 2 ED Provider Note B CDU EMERGENCY DEPARTMENT ENCOUNTER Pt Name: Priscila Cha Birthdate 1955 Date of evaluation: 06/19/2022 Provider: Fito Marti DO CHIEF COMPLAINT Chief Complaint Patient presents with Shortness of Breath Chest Pain HISTORY OF PRESENT ILLNESS (Location/Symptom, Timing/Onset, Context/Setting, Quality, Duration, Modifying Factors, Severity) Note limiting factors. I wore a mask for the entirety of this encounter. Priscila Cha is a 66 y.o. female who presents to the emergency department shortness of breath as well as chest pain. States the chest pain is sharp and aching sensation throughout the lower chest wall particularly worse with deep inspiration. States similar to when she has had pleurisy in the past. Has a history of COPD. No oxygen requirement. States she has been unable to take her inhalers over the past 2 days secondary to pain with deep inspiration. Nursing Notes were reviewed. REVIEW OF SYSTEMS (2+ for level 4; 10+ for level 5) 14 systems reviewed and otherwise acutely negative except as in the EMMONAK. PAST MEDICAL HISTORY Past Medical History: Diagnosis Date Arthritis Pneumonia 03/04/2019 SURGICAL HISTORY Past Surgical History: Procedure Laterality Date BACK SURGERY N/A 2017 lower back in middle MANDIBLE SURGERY Bilateral 1983 wires on both jaws now TONSILLECTOMY CURRENT MEDICATIONS Current Discharge Medication List CONTINUE these medications which have NOT CHANGED Details ibuprofen (ADVIL;MOTRIN) 600 MG tablet Take 600 mg by mouth every 8 hours as needed for Pain kpjxchoyqee-rsigheclb-s ilant (TRELEGY ELLIPTA) 100-62.5-25 MCG/INH AEPB Inhale 1 puff into the lungs daily nicotine (NICODERM CQ) 21 MG/24HR Place 1 patch onto the skin daily Qty: 30 patch, Refills: 3 clonazePAM (KLONOPIN) 0.5 MG tablet Take 0.5 mg by mouth 2 times daily as needed. albuterol sulfate HFA (VENTOLIN HFA) 108 (90 Base) MCG/ACT inhaler Inhale 2 puffs into the lungs every 4 hours as needed for Wheezing With MDI please. Qty: 1 Inhaler, Refills: 1 Multiple Vitamin (MULTI-DAY PO) Take by mouth guaiFENesin (MUCINEX) 600 MG extended release tablet Take 1 tablet by mouth 2 times daily Qty: 30 tablet, Refills: 0 scopolamine (TRANSDERM-SCOP) transdermal patch Place 1 patch onto the skin every 72 hours Qty: 1 patch, Refills: 0 gabapentin (NEURONTIN) 300 MG capsule Take 300 mg by mouth 2 times daily as needed. cyclobenzaprine (FLEXERIL) 10 MG tablet Take 1 tablet by mouth 3 times daily as needed for Muscle spasms Qty: 21 tablet, Refills: 0 ALLERGIES Codeine and Sulfa antibiotics FAMILY HISTORY Family History Problem Relation Age of Onset No Known Problems Sister No Known Problems Brother No Known Problems Maternal Grandmother No Known Problems Maternal Grandfather No Known Problems Paternal Grandmother No Known Problems Paternal Grandfather No Known Problems Other SOCIAL HISTORY Social History Socioeconomic History Marital status: Tobacco Use Smoking status: Every Day Packs/day: 0.50 Years: 15.00 Pack years: 7.50 Types: Cigarettes Smokeless tobacco: Current Tobacco comments: trying to quit Vaping Use Vaping Use: Never used Substance and Sexual Activity Alcohol use: Not Currently Drug use: Never Sexual activity: Not Currently SCREENINGS [place] Coma Scale Eye Opening: Spontaneous Best Verbal Response: Oriented Best Motor Response: Obeys commands [place] Coma Scale Score: 15 PHYSICAL EXAM (up to 7 for level 4, 8 or more for level 5) ED Triage Vitals [06/19/22 1659] BP Temp Temp Source Heart Rate Resp SpO2 Height Weight (!) 158/78 98.2 ?F (36.8 ?C) Oral 93 20 94 % -- 139 lb (63 kg) CONSTITUTIONAL: AOx4, no apparent distress, appears stated age HEAD: normocephalic, atraumatic EYES: PERRL, EOMI ENT: moist mucous membranes, uvula midline NECK: supple, symmetric BACK: symmetric LUNGS: Faint scattered wheezing CARDIOVASCULAR: regular rate and rhythm, no murmurs, rubs or gallops ABDOMEN: soft, non-tender, non-distended with normal active bowel sounds : deferred NEUROLOGIC: MAEx4, no focal sensory or motor deficits MUSCULOSKELETAL: no clubbing, cyanosis or edema, tenderness palpation throughout the bilateral lower chest wall SKIN: no exposed rash DIAGNOSTIC RESULTS EKG (Per Emergency Physician): Sinus rhythm rate of 84, no acute ST or T wave changes RADIOLOGY (Per Emergency Physician): XR CHEST PORTABLE Result Date: 06/19/2022 Patient Name: PRISCILA CHA Diagnostic Radiology ACCESSION EXAM DATE/TIME PROCEDURE ORDERING PROVIDER [id number] 06/19/2022 17:22 EDT CR Chest Portable [id number] LOCKHART CPT code 65476 Reason For Exam (CR Chest Portable) Chest Pain Report CHEST CLINICAL INDICATION: Chest pain TECHNIQUE: AP COMPARISON: 01/14/2022 chest x-ray FINDINGS: Lines and tubes: None. Cardiomediastinal: The cardiomed (more content not included)... Normal [facility] EKG 12 Leadon 06-19-2022 [facility] Test Date: 2022-06-19 Pat Name: PRISCILA CHA Department: 2AED Room: C05 Gender: F Media Manager: MICHELL : 1955 Requested By: FITO MARTI Order Number: [id number] Reading MD: Fito Marti Measurements Intervals [place] Rate: 84 P: 73 NM: 172 QRS: 58 QRSD: 60 T: 56 QT: 360 QTc: 426 Interpretive Statements SINUS RHYTHM CONSIDER LEFT ATRIAL ABNORMALITY BASELINE WANDER IN LEAD(S) V5 Compared to ECG 01/13/2022 10:16:59 Sinus tachycardia no longer present Electronically Signed On 06-19-2022 22:47:09 EDT by Fito Matri [facility] CARDIOLOGY Fito Marti DO - 06/19/2022 [facility] Test Date: 2022-06-19 Pat Name: PRISCILA CHA Department: 2AED Room: C05 Gender: F Media Manager: MICHELL : 1955 Requested By: FITO MARTI Order Number: [id number] Reading MD: Fito Marti Measurements Intervals [place] Rate: 84 P: 73 NM: 172 QRS: 58 QRSD: 60 T: 56 QT: 360 QTc: 426 Interpretive Statements SINUS RHYTHM CONSIDER LEFT ATRIAL ABNORMALITY BASELINE WANDER IN LEAD(S) V5 Compared to ECG 01/13/2022 10:16:59 Sinus tachycardia no longer present Electronically Signed On 06-19-2022 22:47:09 EDT by Fito Marti [facility] Work Phone: [facility] Work Phone: Hemogramon 06-19-2022 Erythrocyte distribution width (RBC) [Ratio] 16.3 % High 11.5-14.5 [facility] Comment on above: Performed By: #### SOLEDAD ENGEL #### [facility] [address] [place] [address] Hematocrit (Bld) [Volume fraction] 38.8 % Normal 35.0-47.0 [facility] Comment on above: Performed By: #### SOLEDAD ENGEL #### [facility] [address] [place] [address] Hemoglobin (Bld) [Mass/Vol] 12.8 g/dL Normal 11.7-16.0 [facility] Comment on above: Performed By: #### SOLEDAD ENGEL #### [facility] [address] [place] [address] MCH (RBC) [Entitic mass] 28.1 pg Normal 26.0-34.0 [facility] Comment on above: Performed By: #### SOLEDAD ENGEL #### [facility] [address] [place] [address] MCHC 33.1 % Normal 32.0-36.0 [facility] Comment on above: Performed By: #### SOLEDAD ENGEL #### [place] [address] [place] [address] MCV (RBC) [Entitic vol] 84.9 fL Normal 79.0-98.0 [facility] Comment on above: Performed By: #### SOLEDAD ENGEL #### [place] [address] [address], [place] Platelet mean volume (Bld) [Entitic vol] 7.4 fL Normal 7.4-12.4 [facility] Comment on above: Result Comment: MPV is a calculated measurement using platelet volume ratio. Performed By: #### SOLEDAD ENGEL #### [place] [address] [address], [place] Platelets (Bld) [#/Vol] 301 10*3/uL Normal 140-440 [facility] Comment on above: Performed By: #### SOLEDAD ENGEL #### [place] [address] [address], [place] RBC (Bld) [#/Vol] 4.57 10*6/uL Normal 3.80-5.20 [facility] Comment on above: Performed By: #### SOLEDAD ENGEL #### [place] [address] [address], [place] WBC (Bld) [#/Vol] 11.8 10*3/uL High 3.6-10.7 [facility] Comment on above: Performed By: #### SOLEDAD ENGEL #### [place] [address] [address], [place] Lactic Acidon 06-19-2022 Lactate [Moles/Vol] 0.8 mmol/L Normal 0.7-2.0 [facility] Comment on above: Performed By: #### SOLEDAD ENGEL #### [place] [address] [address], [place] Lactate [Moles/Vol] 0.8 mmol/L 0.7 - 2 mmol/L [facility] Test Performed by [facility], [address] [place], [place] [id number] [place] [address] LAB [facility] NT pro BNPon 06-19-2022 Natriuretic peptide B (Bld) [Mass/Vol] 696 pg/mL High 0-125 [facility] Comment on above: Performed By: #### SOLEDAD ENGEL #### [place] [address] [facility] [place] [address] No Panel Informationon 06-19 Test Performed by [facility], [address], [place], [place] [address] [facility] LAB [facility] Procalcitoninon 06-19-2022 Interpretation See Below Normal [facility] Comment on above: Result Comment: PCT <0.50 = Low risk of severe sepsis and/or septic shock. PCT >2.00 = High risk of severe sepsis and/or septic shock. Performed By: #### C VFLR #### [facility] [address] [place] [address] , [address] SARS-CoV-2, Flu A/B and RSVo n 06-19-2022 SARS-CoV-2 (COVID-19) RNA JACKIE+probe Ql (Unsp spec) SARS-CoV-2 --> Status: F Not Detected. Flu A PCR --> Status: F Not Detected. Flu B PCR --> Status: F Not Detected. RSV PCR --> Status: F Not Detected. Expected Result: Not Detected _ Method: Real-time, RT-PCR This assay was developed by [employer] and distributed under an Emergency Use Authorization (EUA) granted by the FDA for the qualitative detection of nucleic acids from SARS-CoV-2, Influenza A, Influenza B, and Respiratory Syncytial Virus. Provider and patient fact sheets can be found at https://www.fda.gov/med ia/616208/download and https://www.fda.gov/med ia/410937/download. Expected Result: Not Detected _ Method: Real-time, RT-PCR This assay was developed by [employer] and distributed under an Emergency Use Authorization (EUA) granted by the FDA for the qualitative detection of nucleic acids from SARS-CoV-2, Influenza A, Influenza B, and Respiratory Syncytial Virus. Provider and patient fact sheets can be found at https://www.fda.gov/med ia/782014/download and https://www.fda.gov/med ia/322915/download. Normal [facility] Comment on above: Performed By: #### C VFLR #### [facility] [address] [place] [address] , [address] Troponin Ion 06-19-2022 Troponin I.cardiac [Mass/Vol] ng/mL Normal 0.000-0.034 [facility] Comment on above: Result Comment: . Performed By: #### S SOLEDAD HOFFMAN #### [facility] [address] [place] [address] Troponin x1on 06-19-2022 Troponin I.cardiac [Mass/Vol] ng/mL 0 - 0.034 ng/mL [facility] Comment on above: . XR CHEST PORTABLEon 06-19-20 Patient Name: PRISCILA CHA Diagnostic Radiology ACCESSION EXAM DATE/TIME PROCEDURE ORDERING PROVIDER [id number] 06/19/2022 17:22 EDT CR Chest Portable [id number] -IFTO MARTI CPT code 69598 Reason For Exam (CR Chest Portable) Chest Pain Report CHEST CLINICAL INDICATION: Chest pain TECHNIQUE: AP COMPARISON: 01/14/2022 chest x-ray FINDINGS: Lines and tubes: None. Cardiomediastinal: The cardiomediastinal silhouette is within normal limits. Atherosclerotic calcifications are seen at the aortic knob. Lungs: Stable appearance of coarse interstitial lung markings likely representing chronic lung changes. No pleural effusion, focal consolidation or pneumothorax. Osseous structures: No acute osseous abnormality. IMPRESSION: No acute cardiopulmonary process. Stable chronic lung changes. Report Dictated on --- Final --- Dictating Physician: MD DALY PATRICK Signed Date and Time: 06/19/2022 6:07 pm Signed by: MD DALY PATRICK Transcribed Date and Time: 06/19/2022 6:08 [place] [facility] RAD Result, Unknown Provider - 06/19/2022 Patient Name: PRISCILA CHA Diagnostic Radiology ACCESSION EXAM DATE/TIME PROCEDURE ORDERING PROVIDER [id number] 06/19/2022 17:22 EDT CR Chest Portable [id number] FITO APPLE CPT code 39145 Reason For Exam (CR Chest Portable) Chest Pain Report CHEST CLINICAL INDICATION: Chest pain TECHNIQUE: AP COMPARISON: 01/14/2022 chest x-ray FINDINGS: Lines and tubes: None. Cardiomediastinal: The cardiomediastinal silhouette is within normal limits. Atherosclerotic calcifications are seen at the aortic knob. Lungs: Stable appearance of coarse interstitial lung markings likely representing chronic lung changes. No pleural effusion, focal consolidation or pneumothorax. Osseous structures: No acute osseous abnormality. IMPRESSION: No acute cardiopulmonary process. Stable chronic lung changes. Report Dictated on --- Final --- Dictating Physician: MD DALY PATRICK Signed Date and Time: 06/19/2022 6:07 pm Signed by: MD DALY PATRICK Transcribed Date and Time: 06/19/2022 6:08 [facility] Work Phone: Radiology Study observation (narrative) [facility] Work Phone: XR CHEST PORTABLEOrdered By: Unknown Result on 06-19-2022 [facility] CULT./ST. RESPIRATORYon 05-0 CULT./ST. RESPIRATORY CULT./ST. RESPIRAT ORY --> Status: F Few normal respiratory maya. Normal [facility] Comment on above: Performed By: #### C VFLR #### [facility] [address] [place] [address] , [phone] Basic Metabolic Panelon 04-3 Calcium [Mass/Vol] 8.9 mg/dL Normal 8.4-10.4 [facility] Comment on above: Performed By: #### SOLEDAD ENGEL #### [facility] [address], [place] Glucose [Mass/Vol] 155 mg/dL High 70-100 [facility] Comment on above: Performed By: #### SOLEDAD ENGEL #### [facility] [address], [place] Anion gap [Moles/Vol] 5 mmol/L Normal 3-13 [facility] Comment on above: Performed By: #### SOLEDAD ENGEL #### [facility] [address], [place] CO2 [Moles/Vol] 26 mmol/L Normal 22-30 [facility] Comment on above: Performed By: #### SOLEDAD ENGEL #### [facility] [address], [place] Creatinine [Mass/Vol] 0.62 mg/dL Normal 0.52-1.25 [facility] Comment on above: Performed By: #### SOLEDAD ENGEL #### [facility] [address], [place] eGFR OTHER > 90.0 Normal >60 [facility] Comment on above: Result Comment: KDIG O guidelines provide the following GFR categories: Stage GFR(ml/min/1.73 m2) Terms G1 >=90 Normal or high G2 60-89 Mildly decreased* G3a 45-59 Mildly to moderately decreased G3b 30-44 Moderately to severely decreased G4 15-29 Severely decreased G5 <15 Kidney failure *Relative to young adult level. In the absence of evidence of kidney damage, neither GFR category G1 nor G2 fulfill the criteria for CKD. The CKD-EPI equation is validated in individuals 18 years of age and older. Currently the best equation for estimating glomerular filtration rate (GFR) from serum creatinine in children is the Bedside Olivera equation. It is less accurate in patients with extremes of muscle mass, restriction of dietary protein, ingestion of creatine, extra-renal metabolism of creatinine, or treatment with medications that affect renal tubular creatinine secretion. Performed By: #### SOLEDAD ENGEL #### [facility] [address], [place] GFR/1.73 sq M.predicted among blacks MDRD (S/P/Bld) [Vol rate/Area] mL/min/{1.73_m2} Normal >60 [facility] Comment on above: Performed By: #### SOLEDAD ENGEL #### [facility] [address], [place] Urea nitrogen [Mass/Vol] 17 mg/dL Normal 9-20 [facility] Comment on above: Performed By: #### SOLEDAD ENGEL #### [facility] [address], [place] Chloride [Moles/Vol] 104 mmol/L Normal 98-107 [facility] Comment on above: Performed By: #### SOLEDAD ENGEL #### [facility] [address] [place] [place] [address] Potassium [Moles/Vol] 3.7 mmol/L Normal 3.5-5.1 [facility] Comment on above: Performed By: #### SOLEDAD ENGEL #### [facility] [address] [place] [place] [address] Sodium [Moles/Vol] 135 mmol/L Normal 135-145 [facility] Comment on above: Performed By: #### SOLEDAD ENGEL #### [facility] [address] [place] [address] COVID and Resp PCR Panelon 0 01-15-2022 SARS-CoV-2 (COVID-19) RNA JACKIE+probe Ql (Unsp spec) COVID and Resp PCR Panel --> Status: F NEGATIVE: No targets were detected by the [employer] Upper Respiratory Pathogens PCR Panel. _ Expected Result: Not Detected The [employer] Upper Respiratory Pathogens PCR Panel can detect the following targets: SARS-CoV-2, Adenovirus, Coronavirus 229E, Coronavirus HKU1, Coronavirus NL63, Coronavirus OC43, Human Metapneumovirus, Human Rhinovirus/Enterovirus, Influenza A, Influenza B, Parainfluenza Virus 1, Parainfluenza Virus 2, Parainfluenza Virus 3, Parainfluenza Virus 4, Respiratory Syncytial Virus, Bordetella pertussis, Bordetella parapertussis, Chlamydia pneumoniae, Mycoplasma pneumoniae. Method: Real-time PCR. Respiratory Pathogens PCR Panel. _ Expected Result: Not Detected The [employer] Upper Respiratory Pathogens PCR Panel can detect the following targets: SARS-CoV-2, Adenovirus, Coronavirus 229E, Coronavirus HKU1, Coronavirus NL63, Coronavirus OC43, Human Metapneumovirus, Human Rhinovirus/Enterovirus, Influenza A, Influenza B, Parainfluenza Virus 1, Parainfluenza Virus 2, Parainfluenza Virus 3, Parainfluenza Virus 4, Respiratory Syncytial Virus, Bordetella pertussis, Bordetella parapertussis, Chlamydia pneumoniae, Mycoplasma pneumoniae. Method: Real-time PCR. Normal [facility] Comment on above: Performed By: #### B FRP2 #### [facility] [address], [place] Hemogram w/ Autodiffon 01-15 Abs Baso Cnt 0.0 10*3/uL Normal 0.0-0.2 [facility] Comment on above: Performed By: #### B FRP2 #### [facility] [address], [place] Abs Neutrophile Cnt 5.1 10*3/uL Normal 1.8-7.0 [facility] Comment on above: Performed By: #### B FRP2 #### [place] [address], [place] Basophils/100 WBC (Bld) 0.5 % Normal 0.0-2.0 [facility] Comment on above: Performed By: #### B FRP2 #### [place] [address] [address], [place] Eosinophils (Bld) [#/Vol] 0.3 10*3/uL Normal 0.0-0.5 [facility] Comment on above: Performed By: #### B FRP2 #### [place] [address] [address], [place] Eosinophils/100 WBC (Bld) 3.4 % Normal 1.0-6.0 [facility] Comment on above: Performed By: #### B FRP2 #### [place] [address] [address], [place] Erythrocyte distribution width (RBC) [Ratio] 16.1 % High 11.5-14.5 [facility] Comment on above: Performed By: #### B FRP2 #### [place] [address] [address], [place] Granulocytes/100 WBC (Bld) 64.1 % Normal 40.0-80.0 [facility] Comment on above: Performed By: #### B FRP2 #### [place] [address] [address], [place] Hematocrit (Bld) [Volume fraction] 32.9 % Low 35.0-47.0 [facility] Comment on above: Performed By: #### B FRP2 #### [facility] [address], [place] Hemoglobin (Bld) [Mass/Vol] 10.7 g/dL Low 11.7-16.0 [facility] Comment on above: Performed By: #### B FRP2 #### [facility] [address], [place] Lymphocytes (Bld) [#/Vol] 1.4 10*3/uL Normal 1.0-4.3 [facility] Comment on above: Performed By: #### B FRP2 #### [facility] [address], [place] Lymphocytes/100 WBC (Bld) 17.4 % Low 20.0-40.0 [facility] Comment on above: Performed By: #### B FRP2 #### [facility] [address], [place] MCH (RBC) [Entitic mass] 26.9 pg Normal 26.0-34.0 [facility] Comment on above: Performed By: #### B FRP2 #### [facility] [address], [place] MCHC 32.4 % Normal 32.0-36.0 [facility] Comment on above: Performed By: #### B FRP2 #### [facility] [address], [place] MCV (RBC) [Entitic vol] 83.0 fL Normal 79.0-98.0 [facility] Comment on above: Performed By: #### B FRP2 #### [facility] [address], [place] Monocytes (Bld) [#/Vol] 1.2 10*3/uL High 0.0-0.8 [facility] Comment on above: Performed By: #### B FRP2 #### [facility] [address], [place] Monocytes/100 WBC (Bld) 14.6 % High 2.0-10.0 [facility] Comment on above: Performed By: #### B FRP2 #### [place] [address] [address], [place] Platelet mean volume (Bld) [Entitic vol] 8.2 fL Normal 7.4-12.4 [facility] Comment on above: Result Comment: MPV is a calculated measurement using platelet volume ratio. Performed By: #### B FRP2 #### [place] [address] [address], [place] Platelets (Bld) [#/Vol] 283 10*3/uL Normal 140-440 [facility] Comment on above: Performed By: #### B FRP2 #### [place] [address] [address], [place] RBC (Bld) [#/Vol] 3.97 10*6/uL Normal 3.80-5.20 [facility] Comment on above: Performed By: #### B FRP2 #### [place] [address] [address], [place] WBC (Bld) [#/Vol] 8.0 10*3/uL Normal 3.6-10.7 [facility] Comment on above: Performed By: #### B FRP2 #### [place] [address], [place] LEGIONELLA AG, URINEon 01-15 LEGIONELLA AG, URINE LEGIONELLA AG, URIN E --> Status: F Legionella antigen NOT DETECTED. Normal [facility] Comment on above: Performed By: #### SOLEDAD ENGEL #### [place] [address], [place] STREP PNEUMO ANTIGEN, URINEo n 01-15-2022 STREP PNEUMO ANTIGEN, URINE STREP PNEUMO ANTIGEN, URINE --> Status: F Strep pneumo antigen NOT DETECTED. Normal [facility] Comment on above: Performed By: #### SOLEDAD ENGEL #### [place] [address] [address], [place] Basic Metabolic Panelon 04-2 Anion gap [Moles/Vol] 8 mmol/L Normal 3-13 [facility] Comment on above: Performed By: #### SOLEDAD ENGEL #### [facility] [address] [place] [address] Calcium [Mass/Vol] 8.8 mg/dL Normal 8.4-10.4 [facility] Comment on above: Performed By: #### Isaac HOFFMAN LEGKAYLIE #### [facility] [address] [place] [address] CO2 [Moles/Vol] 24 mmol/L Normal 22-30 [facility] Comment on above: Performed By: #### SOLEDAD ENGEL #### [facility] [address] [place] [address] Glucose [Mass/Vol] 106 mg/dL High 70-100 [facility] Comment on above: Performed By: #### SOLEDAD ENGEL #### [facility] [address], [place] Urea nitrogen [Mass/Vol] 19 mg/dL Normal 9-20 [facility] Comment on above: Performed By: #### SOLEDAD ENGEL #### [facility] [address], [place] Creatinine [Mass/Vol] 0.71 mg/dL Normal 0.52-1.25 [facility] Comment on above: Performed By: #### SOLEDAD ENGEL #### [facility] [address], [place] GFR/1.73 sq M.predicted among blacks MDRD (S/P/Bld) [Vol rate/Area] mL/min/{1.73_m2} Normal >60 [facility] Comment on above: Performed By: #### SOLEDAD ENGEL #### [facility] [address] [place] [address] GFR/1.73 sq M.predicted among non-blacks MDRD (S/P/Bld) [Vol rate/Area] 88.7 mL/min/{1.73_m2} Normal >60 [facility] Comment on above: Result Comment: KDIG O guidelines provide the following GFR categories: Stage GFR(ml/min/1.73 m2) Terms G1 >=90 Normal or high G2 60-89 Mildly decreased* G3a 45-59 Mildly to moderately decreased G3b 30-44 Moderately to severely decreased G4 15-29 Severely decreased G5 <15 Kidney failure *Relative to young adult level. In the absence of evidence of kidney damage, neither GFR category G1 nor G2 fulfill the criteria for CKD. The CKD-EPI equation is validated in individuals 18 years of age and older. Currently the best equation for estimating glomerular filtration rate (GFR) from serum creatinine in children is the Bedside Olivera equation. It is less accurate in patients with extremes of muscle mass, restriction of dietary protein, ingestion of creatine, extra-renal metabolism of creatinine, or treatment with medications that affect renal tubular creatinine secretion. Performed By: #### SOLEDAD ENGEL #### [address] Chloride [Moles/Vol] 104 mmol/L Normal 98-107 [facility] Comment on above: Performed By: #### SOLEDAD ENGEL #### [place] [address] [place] [address] Potassium [Moles/Vol] 4.0 mmol/L Normal 3.5-5.1 [facility] Comment on above: Performed By: #### SOLEDAD ENGEL #### [address] [address] Sodium [Moles/Vol] 135 mmol/L Normal 135-145 [facility] Comment on above: Performed By: #### SOLEDAD ENGEL #### [place] [address] [address] [place], [place] CR Chest PA/LATon 01-14-2022 CR Chest PA/LAT Patient Name: PRISCILA CHA Diagnostic Radiology ACCESSION EXAM DATE/TIME PROCEDURE ORDERING PROVIDER [id number] 01/14/2022 08:38 EDT CR Chest PA and LAT MD TIBURCIO, [facility] CPT code 37720 Reason For Exam (CR Chest PA and LAT) f/u on interstitial infiltrates versus edema Report CLINICAL INDICATION: Interstitial lung infiltrates versus edema. Frontal and lateral plain films of the chest were obtained. COMPARISON: Multiple prior chest radiograph, the most recent dated 01/05/2022. FINDINGS: Coarse interstitial markings appear largely chronic although are somewhat increased from the prior exam dated 07/17/2020. This finding raises concern of superimposed edema and/or interstitial infiltrates. Patchy left lower lung infiltrate. No gross pleural effusions. No pneumothorax. Heart size is within normal limits. IMPRESSION: Chronic interstitial changes. Suspect mild superimposed interstitial infiltrates and/or edema. More focal interstitial infiltrate in the left lower lung. Report Dictated on Final Dictating Physician: MD GORDON LAURA Signed Date and Time: 01/14/2022 9:22 am Signed by: MD GORDON LAURA Transcribed Date and Time: 01/14/2022 9:23 Normal [facility] Hemogram w/ Autodiffon 01-14 Abs Baso Cnt 0.0 10*3/uL Normal 0.0-0.2 [facility] Comment on above: Performed By: #### SOLEDAD ENGEL #### [facility] [address] [place] [address] Abs Neutrophile Cnt 7.2 10*3/uL High 1.8-7.0 [facility] Comment on above: Performed By: #### SOLEDAD ENGEL #### [facility] [address] [place] [address] Basophils/100 WBC (Bld) 0.3 % Normal 0.0-2.0 [facility] Comment on above: Performed By: #### SOLEDAD ENGEL #### [facility] [address] [place] [address] Eosinophils (Bld) [#/Vol] 0.1 10*3/uL Normal 0.0-0.5 [facility] Comment on above: Performed By: #### SOLEDAD ENGEL #### [facility] [address] [place] [address] Eosinophils/100 WBC (Bld) 1.1 % Normal 1.0-6.0 [facility] Comment on above: Performed By: #### SOLEDAD ENGEL #### [facility] [address], [place] Erythrocyte distribution width (RBC) [Ratio] 15.8 % High 11.5-14.5 [facility] Comment on above: Performed By: #### SOLEDAD ENGEL #### [facility] [address], [place] Granulocytes/100 WBC (Bld) 70.3 % Normal 40.0-80.0 [facility] Comment on above: Performed By: #### SOLEDAD ENGEL #### [facility] [address], [place] Hematocrit (Bld) [Volume fraction] 33.9 % Low 35.0-47.0 [facility] Comment on above: Performed By: #### SOLEDAD ENGEL #### [place] [address] [address], [place] Hemoglobin (Bld) [Mass/Vol] 11.2 g/dL Low 11.7-16.0 [facility] Comment on above: Performed By: #### SOLEDAD ENGEL #### [place] [address] [address], [place] Lymphocytes (Bld) [#/Vol] 1.2 10*3/uL Normal 1.0-4.3 [facility] Comment on above: Performed By: #### SOLEDAD ENGEL #### [place] [address] [address], [place] Lymphocytes/100 WBC (Bld) 11.4 % Low 20.0-40.0 [facility] Comment on above: Performed By: #### SOLEDAD ENGEL #### [facility] [address], [place] MCH (RBC) [Entitic mass] 27.2 pg Normal 26.0-34.0 [facility] Comment on above: Performed By: #### SOLEDAD ENGEL #### [facility] [address], [place] MCHC 32.9 % Normal 32.0-36.0 [facility] Comment on above: Performed By: #### SOLEDAD ENGEL #### [place] [address] [address], [place] MCV (RBC) [Entitic vol] 82.6 fL Normal 79.0-98.0 [facility] Comment on above: Performed By: #### SOLEDAD ENGEL #### [place] [address] [address], [place] Monocytes (Bld) [#/Vol] 1.7 10*3/uL High 0.0-0.8 [facility] Comment on above: Performed By: #### SOLEDAD ENGEL #### [place] [address] [address], [place] Monocytes/100 WBC (Bld) 16.9 % High 2.0-10.0 [facility] Comment on above: Performed By: #### SOLEDAD ENGEL #### [place] [address] [address], [place] Platelet mean volume (Bld) [Entitic vol] 8.0 fL Normal 7.4-12.4 [facility] Comment on above: Result Comment: MPV is a calculated measurement using platelet volume ratio. Performed By: #### SOLEDAD ENGEL #### [place] [address] [address], [place] Platelets (Bld) [#/Vol] 246 10*3/uL Normal 140-440 [facility] Comment on above: Performed By: #### SOLEDAD ENGEL #### [place] [address] [address], [place] RBC (Bld) [#/Vol] 4.11 10*6/uL Normal 3.80-5.20 [facility] Comment on above: Performed By: #### SOLEDAD ENGEL #### [place] [address] [address], [place] WBC (Bld) [#/Vol] 10.2 10*3/uL Normal 3.6-10.7 [facility] Comment on above: Performed By: #### SOLEDAD ENGEL #### [place] [address] [address], [place] Lactic Acid, Sepsison 2021 Lactate [Moles/Vol] 0.6 mmol/L Low 0.7-2.0 [facility] Comment on above: Performed By: #### B FRP2 #### [facility] [address], [place] Procalcitoninon 01-14-2022 Procalcitonin 0.30 ng/mL High 0.00-0.09 [facility] Comment on above: Performed By: #### SOLEDAD ENGEL #### [facility] [address], [place] RBC Morphologyon 01-14-2022 Anisocytosis Ql (Bld) Slight Normal [facility] Comment on above: Performed By: #### SOLEDAD ENGEL #### [facility] [address], [place] RBC morphology finding Nom (Bld) ABNORMAL Normal [facility] Comment on above: Performed By: #### SOLEDAD ENGEL #### [facility] [address], [place] STAIN GRAMon 01-14-2022 STAIN GRAM STAIN GRAM --> Statu s: F Many polymorphonuclear cells/lpf. Moderate epithelial cells/lpf. Few gram positive cocci in clusters. Few gram positive cocci in pairs. Few gram positive bacilli. Rare gram negative bacilli. Moderate epithelial cells/lpf. Few gram positive cocci in clusters. Few gram positive cocci in pairs. Few gram positive bacilli. Rare gram negative bacilli. Normal [facility] Comment on above: Performed By: #### C VFLR #### [facility] [address] [place] [address] , [address] CR Chest Portableon 01-14-20 22 CR Chest Portable Patient Name: PRISCILA CHA Diagnostic Radiology ACCESSION EXAM DATE/TIME PROCEDURE ORDERING PROVIDER [id number] 01/13/2022 10:05 EDT CR Chest Portable [id number] [facility] CPT code 42878 Reason For Exam (CR Chest Portable) coughing, shortness of breath Report Examination: AP portable chest Clinical Indication: coughing, shortness of breath Comparison: 07/17/2020 Findings: Lungs appear normally inflated. Minimal elevation the left hemidiaphragm. Mild diffuse interstitial thickening slightly worsened from comparison. There is no focal consolidation or effusion identified. The cardiomediastinal silhouette is within normal limits. Atherosclerotic calcification aortic arch. Degenerative changes within the shoulders and spine. Mild thoracic scoliosis. Impression: Mild pulmonary interstitial disease, thickening. Findings can be seen with interstitial pneumonia, pulmonary edema or other acute or chronic interstitial disease and is new from 2020 comparison. No focal consolidation or effusion. No cardiac enlargement to suggest CHF. Report Dictated on Final Dictating Physician: MD MARTINEZ ANTHONY J Signed Date and Time: 01/13/2022 10:44 am Signed by: MD MARTINEZ ANTHONY J Transcribed Date and Time: 01/13/2022 10:45 Normal [facility] Comp Metabolic Panelon 01-13 ALP [Catalytic activity/Vol] 71 U/L Normal 38-126 [facility] Comment on above: Performed By: #### B FRP2 #### [place] [address] [address] [place], [place] ALT [Catalytic activity/Vol] 11 U/L Normal 0-34 [facility] Comment on above: Result Comment: The ALT test is performed by an updated assay method. Please note that the reference intervals have been changed and are now sex specific. Performed By: #### B FRP2 #### [facility] [address], [place] Anion gap [Moles/Vol] 4 mmol/L Normal 3-13 [facility] Comment on above: Performed By: #### B FRP2 #### [facility] [address], [place] AST [Catalytic activity/Vol] 27 U/L Normal 15-46 [facility] Comment on above: Performed By: #### B FRP2 #### [facility] [address], [place] Bilirubin [Mass/Vol] 0.5 mg/dL Normal 0.2-1.3 [facility] Comment on above: Performed By: #### B FRP2 #### [facility] [address], [place] Calcium [Mass/Vol] 10.0 mg/dL Normal 8.4-10.4 [facility] Comment on above: Performed By: #### B FRP2 #### [facility] [address], [place] CO2 [Moles/Vol] 28 mmol/L Normal 22-30 [facility] Comment on above: Performed By: #### B FRP2 #### [facility] [address], [place] Creatinine [Mass/Vol] 0.62 mg/dL Normal 0.52-1.25 [facility] Comment on above: Performed By: #### B FRP2 #### [facility] [address], [place] eGFR OTHER > 90.0 Normal >60 [facility] Comment on above: Result Comment: KDIG O guidelines provide the following GFR categories: Stage GFR(ml/min/1.73 m2) Terms G1 >=90 Normal or high G2 60-89 Mildly decreased* G3a 45-59 Mildly to moderately decreased G3b 30-44 Moderately to severely decreased G4 15-29 Severely decreased G5 <15 Kidney failure *Relative to young adult level. In the absence of evidence of kidney damage, neither GFR category G1 nor G2 fulfill the criteria for CKD. The CKD-EPI equation is validated in individuals 18 years of age and older. Currently the best equation for estimating glomerular filtration rate (GFR) from serum creatinine in children is the Bedside Olivera equation. It is less accurate in patients with extremes of muscle mass, restriction of dietary protein, ingestion of creatine, extra-renal metabolism of creatinine, or treatment with medications that affect renal tubular creatinine secretion. Performed By: #### B FRP2 #### [facility] [address], [place] GFR/1.73 sq M.predicted among blacks MDRD (S/P/Bld) [Vol rate/Area] mL/min/{1.73_m2} Normal >60 [facility] Comment on above: Performed By: #### B FRP2 #### [facility] [address], [place] Glucose [Mass/Vol] 102 mg/dL High 70-100 [facility] Comment on above: Performed By: #### B FRP2 #### [facility] [address], [place] Protein [Mass/Vol] 7.3 g/dL Normal 6.3-8.2 [facility] Comment on above: Performed By: #### B FRP2 #### [place] [address] [address], [place] Urea nitrogen [Mass/Vol] 19 mg/dL Normal 9-20 [facility] Comment on above: Performed By: #### B FRP2 #### [place] [address] [address], [place] Albumin [Mass/Vol] 3.9 g/dL Normal 3.5-5.0 [facility] Comment on above: Performed By: #### B FRP2 #### [place] [address] [address], [place] Chloride [Moles/Vol] 100 mmol/L Normal 98-107 [facility] [facility] Comment on above: Performed By: #### B FRP2 #### [address] [place], [place] Potassium [Moles/Vol] 4.5 mmol/L Normal 3.5-5.1 [facility] Comment on above: Performed By: #### B FRP2 #### [address] [place], [place] Sodium [Moles/Vol] 132 mmol/L Low 135-145 [facility] Comment on above: Performed By: #### B FRP2 #### [address] [address] [place], [place] ED Provider Noteon ED Provider Note Emergency Department Encounter SHB 2E TELEMETRY Patient: Priscila Cha : 1955 Date of Evaluation: 01/13/2022 ED Provider: Gary Bernard, DO Chief Complaint Chief Complaint Patient presents with ? Shortness of Breath EMMONAK I wore appropriate PPE for the entirety of this encounter. Does this patient come from an ECF, SNF, Rehab, Alf or other Congregate setting: no (If yes to above patient needs a Covid-19 test) Priscila Cha is a 66 y.o. female who presents to the emergency department complaining of shortness of breath. Patient reports has been feeling sick for several days. She is discussed things with her doctor and they suspected she may have influenza. She was started on Tamiflu. She been taking this with no improvement in symptoms and is actually feeling worse. Today, she had severe shortness of breath so she was brought to the emergency department for evaluation. Reports cough but denies fevers, chills. Denies any known sick contacts. She has been having headaches. ROS: Review of Systems completed as follows: (Bold = positive, Not bold = negative) GENERAL: fevers, chills, malaise, decreased appetite EYES: blurry vision, double vision, vision loss ENT: runny nose, congestion, sore throat, ear pain NEURO: confusion, seizure, weakness, numbness of tingling, headache CARDIOVASCULAR: chest pain, palpitations, syncope, lower extremity edema PULMONARY: shortness of breath, cough, wheezing GASTROINTESTINAL: nausea, vomiting, abdominal pain, diarrhea, constipation, MUSCULOSKELETAL: pain, weakness, joint pain GENITAL/URINARY: dysuria, hematuria, increased urinary frequency, hesitancy, flank pain SKIN: rash, lesions ENDOCRINE: increased thirst, heat or cold intolerance PSYCH: depressed mood, SI, HI Past History Past Medical History: Diagnosis Date ? Arthritis ? Pneumonia 03/04/2019 Past Surgical History: Procedure Laterality Date ? BACK SURGERY N/A 2017 lower back in middle ? MANDIBLE SURGERY Bilateral 1983 wires on both jaws now ? TONSILLECTOMY Social History Socioeconomic History ? Marital status: Spouse name: None ? Number of children: None ? Years of education: None ? Highest education level: None Occupational History ? None Tobacco Use ? Smoking status: Current Every Day Smoker Packs/day: 0.50 Years: 15.00 Pack years: 7.50 Types: Cigarettes ? Smokeless tobacco: Current User ? Tobacco comment: trying to quit Vaping Use ? Vaping Use: Never used Substance and Sexual Activity ? Alcohol use: Not Currently ? Drug use: Never ? Sexual activity: Not Currently Other Topics Concern ? None Social History Narrative ? None Social Determinants of Health Financial Resource Strain: ? Difficulty of Paying Living Expenses: Not on file Food Insecurity: ? Worried About Running Out of Food in the Last Year: Not on file ? Ran Out of Food in the Last Year: Not on file Transportation Needs: ? Lack of Transportation (Medical): Not on file ? Lack of Transportation (Non-Medical): Not on file Physical Activity: ? Days of Exercise per Week: Not on file ? Minutes of Exercise per Session: Not on file Stress: ? Feeling of Stress : Not on file Social Connections: ? Frequency of Communication with Friends and Family: Not on file ? Frequency of Social Gatherings with Friends and Family: Not on file ? Attends Zoroastrianism Services: Not on file ? Active Member of Clubs or Organizations: Not on file ? Attends Club or Organization Meetings: Not on file ? Marital Status: Not on file Intimate Partner Violence: ? Fear of Current or Ex-Partner: Not on file ? Emotionally Abused: Not on file ? Physically Abused: Not on file ? Sexually Abused: Not on file Housing Stability: ? Unable to Pay for Housing in the Last Year: Not on file ? Number of Places Lived in the Last Year: Not on file ? Unstable Housing in the Last Year: Not on file I have reviewed the history above as provided by nursing notes. Medications/Allergies Current Discharge Medication List CONTINUE these medications which have NOT CHANGED Details scopolamine (TRANSDERM-SCOP) transdermal patch Place 1 patch onto the skin every 72 hours Qty: 1 patch, Refills: 0 gabapentin (NEURONTIN) 300 MG capsule Take 300 mg by mouth 2 times daily. cyclobenzaprine (FLEXERIL) 10 MG tablet Take 1 tablet by mouth 3 times daily as needed for Muscle spasms Qty: 21 tablet, Refills: 0 clonazePAM (KLONOPIN) 0.5 MG tablet Take 0.5 mg by mouth 2 times daily as needed. albuterol sulfate HFA (VENTOLIN HFA) 108 (90 Base) MCG/ACT inhaler Inhale 2 puffs into the lungs every 4 hours as needed for Wheezing With MDI please. Qty: 1 Inhaler, Refills: 1 Multiple Vitamin (MULTI-DAY PO) Take by mouth Allergies Allergen Reactions ? Codeine ? Sulfa Antibiotics I have reviewed the history above as provided by nursing notes. Physical Exam ED Tria (more content not included)... Normal [facility] Hemogram w/ Autodiffon 01-13 Erythrocyte distribution width (RBC) [Ratio] 16.0 % High 11.5-14.5 [facility] Comment on above: Performed By: #### B FRP2 #### [facility] [address] [place], [place] Hematocrit (Bld) [Volume fraction] 38.1 % Normal 35.0-47.0 [facility] Comment on above: Performed By: #### B FRP2 #### [facility] [address] [place], [place] Hemoglobin (Bld) [Mass/Vol] 12.6 g/dL Normal 11.7-16.0 [facility] Comment on above: Performed By: #### B FRP2 #### [address] [address] [address] [place], [place] MCH (RBC) [Entitic mass] 27.2 pg Normal 26.0-34.0 [facility] Comment on above: Performed By: #### B FRP2 #### [address] [place], [place] MCHC 33.0 % Normal 32.0-36.0 [facility] Comment on above: Performed By: #### B FRP2 #### [address] [address] [place], [place] MCV (RBC) [Entitic vol] 82.3 fL Normal 79.0-98.0 [facility] Comment on above: Performed By: #### B FRP2 #### [place] [place], [place] Platelet mean volume (Bld) [Entitic vol] 8.6 fL Normal 7.4-12.4 [facility] Comment on above: Result Comment: MPV is a calculated measurement using platelet volume ratio. Performed By: #### B FRP2 #### [address] [address] [place] [id number] Platelets (Bld) [#/Vol] 245 10*3/uL Normal 140-440 [facility] Comment on above: Performed By: #### B FRP2 #### [place] [address] [place], [place] RBC (Bld) [#/Vol] 4.63 10*6/uL Normal 3.80-5.20 [facility] Comment on above: Performed By: #### B FRP2 #### [place] [address] [place], [place] WBC (Bld) [#/Vol] 12.7 10*3/uL High 3.6-10.7 [facility] Comment on above: Performed By: #### B FRP2 #### [place] [address] [place], [place] Lactic Acid, Sepsison 2021 Lactate [Moles/Vol] 0.9 mmol/L Normal 0.7-2.0 [facility] Comment on above: Performed By: #### S SOLEDAD HOFFMAN #### [place] [address] [address] [place], [place] Manual Diffon 01-13-2022 Abs Lymph Cnt 0.5 10*3/uL Low 1.1-4.5 [facility] Comment on above: Performed By: #### B FRP2 #### [place] [address] [address] [place], [place] Abs Monocyte Cnt 1.1 10*3/uL Normal 0.2-1.1 [facility] Comment on above: Performed By: #### B FRP2 #### [place] [address] [place], [place] Abs Neutrophile Cnt 11.0 10*3/uL High 2.2-8.2 [facility] Comment on above: Performed By: #### B FRP2 #### [place] [address] [place], [place] Anisocytosis Moderate Normal [facility] Comment on above: Performed By: #### B FRP2 #### [address] [place], [place] Lymphocytes 4 % Low 20-40 [facility] Comment on above: Performed By: #### B FRP2 #### [place] [address] [address] [place], [place] Monocytes 9 % Normal 2-10 [facility] Comment on above: Performed By: #### B FRP2 #### [facility] [address] [place], [place] RBC Morphology ABNORMAL Normal [facility] Comment on above: Performed By: #### B FRP2 #### [place] [address] [address] [place], [place] Seg Neutrophils 87 % High 40-80 [facility] Comment on above: Performed By: #### B FRP2 #### [place] [address] [place], [place] Abs Baso Cnt 0.0 10*3/uL Normal 0.0-0.2 [facility] Comment on above: Performed By: #### B FRP2 #### [place] [address] [address] [place], [place] Abs Eosin Cnt 0.0 10*3/uL Normal 0.0-0.5 [facility] Comment on above: Performed By: #### B FRP2 #### [facility] [address] [place], [place] Bands 0 % Normal 0-3 [facility] Comment on above: Performed By: #### B FRP2 #### [facility] [address] [place] Basophils 0 % Normal 0-2 [facility] Comment on above: Performed By: #### B FRP2 #### [place] [address] [address] [place], [place] Cells counted 100 Normal [facility] Comment on above: Performed By: #### B FRP2 #### [place] [address] [place], [place] Eosinophils 0 % Low 1-6 [facility] Comment on above: Performed By: #### B FRP2 #### [place] [address] [place], [place] Procalcitoninon 01-13-2022 Interpretation See Below Normal [facility] Comment on above: Result Comment: PCT <0.50 = Low risk of severe sepsis and/or septic shock. PCT >2.00 = High risk of severe sepsis and/or septic shock. Performed By: #### S SOLEDAD HOFFMAN #### [facility] [address] [place], [place] SARS-CoV-2, Flu A/B and RSVo n 01-13-2022 SARS-CoV-2 (COVID-19) RNA JACKIE+probe Ql (Unsp spec) SARS-CoV-2 --> Status: F Not Detected. Flu A PCR --> Status: F Not Detected. Flu B PCR --> Status: F Not Detected. RSV PCR --> Status: F Not Detected. Expected Result: Not Detected _ Method: Real-time, RT-PCR This assay was developed by [employer] and distributed under an Emergency Use Authorization (EUA) granted by the FDA for the qualitative detection of nucleic acids from SARS-CoV-2, Influenza A, Influenza B, and Respiratory Syncytial Virus. Provider and patient fact sheets can be found at https://www.fda.gov/med ia/936869/download and https://www.fda.gov/med ia/922496/download. Expected Result: Not Detected _ Method: Real-time, RT-PCR This assay was developed by [employer] and distributed under an Emergency Use Authorization (EUA) granted by the FDA for the qualitative detection of nucleic acids from SARS-CoV-2, Influenza A, Influenza B, and Respiratory Syncytial Virus. Provider and patient fact sheets can be found at https://www.fda.gov/med ia/865684/download and https://www.fda.gov/med ia/040887/download. Normal [facility] Comment on above: Performed By: #### C VFLR #### [facility] [address] [place] [address] , [address] Troponin Ion 01-13-2022 Troponin I.cardiac [Mass/Vol] ng/mL Normal 0.000-0.034 [facility] Comment on above: Result Comment: . Performed By: #### B FRP2 #### [facility] [address] [place], [place] CBCon 10-17-2021 Hematocrit (Bld) [Volume fraction] 34.1 % Low 35.0 - 47.0 % [facility] Hemoglobin.gastrointest inal spec 1 Ql (Stl) 11.1 g/dL Low 11.7 - 16.0 g/dL [facility] Interpretation and review of laboratory results Abnormal [facility] MCH (RBC) [Entitic mass] 28.6 pg 26.0 - 34.0 pg [facility] MCHC (RBC) [Mass/Vol] 32.5 % 32.0 - 36.0 % [facility] MCV (RBC) [Entitic vol] 88.3 fL 79.0 - 98.0 fL [facility] Platelet distribution width (Bld) [Ratio] 14.3 % 11.5 - 14.5 % [facility] Platelet mean volume (Bld) [Entitic vol] 7.8 fL 7.4 - 10.4 fL [facility] Platelets (Bld) [#/Vol] 313 10*3/uL 140 - 440 10*3/uL [facility] RBC (Bld) [#/Vol] 3.87 10*6/uL 3.80 - 5.2 0 10*6/uL [facility] WBC (Bld) [#/Vol] 14.1 10*3/uL High 3.6 - 10.7 10*3/uL [facility] Test Performed by [facility], [address] [place], [place] [id number] [place] [address] LAB [facility] Comp Metabolic Panelon 10-17 ALP [Catalytic activity/Vol] 59 U/L Normal 38-126 [facility] Comment on above: Performed By: #### SOLEDAD ENGEL #### [facility] [address] [place], [place] ALT [Catalytic activity/Vol] 12 U/L Normal 0-34 [facility] Comment on above: Result Comment: The ALT test is performed by an updated assay method. Please note that the reference intervals have been changed and are now sex specific. Performed By: #### SOLEDAD ENGLE #### [facility] [address] [place], [place] Anion gap [Moles/Vol] 5 mmol/L Normal 3-13 [facility] Comment on above: Performed By: #### SOLEDAD ENGEL #### [facility] [address] [place], [place] AST [Catalytic activity/Vol] 24 U/L Normal 15-46 [facility] Comment on above: Performed By: #### SOLEDAD ENGEL #### [facility] [address] [place], [place] Calcium [Mass/Vol] 8.3 mg/dL Low 8.4-10.4 [facility] Comment on above: Performed By: #### SOLEDAD ENGEL #### [facility] [address] [place], [place] CO2 [Moles/Vol] 24 mmol/L Normal 22-30 [facility] Comment on above: Performed By: #### SOLEDAD ENGEL #### [place] [address] [place], [place] Glucose [Mass/Vol] 94 mg/dL Normal 70-100 [facility] Comment on above: Performed By: #### SOLEDAD ENGEL #### [place] [place], [place] Protein [Mass/Vol] 6.4 g/dL Normal 6.3-8.2 [facility] Comment on above: Performed By: #### SOLEDAD ENGEL #### [place] [address] [place], [place] Urea nitrogen [Mass/Vol] 10 mg/dL Normal 9-20 [facility] Comment on above: Performed By: #### SOLEDAD ENGEL #### [address] [address] [place], [place] Bilirubin [Mass/Vol] 0.8 mg/dL Normal 0.2-1.3 [facility] Comment on above: Performed By: #### SOLEDAD ENGEL #### [place] [place], [place] Creatinine [Mass/Vol] 0.62 mg/dL Normal 0.52-1.25 [facility] Comment on above: Performed By: #### SOLEDAD ENGEL #### [address] [address] [place], [place] eGFR OTHER > 90.0 Normal >60 [facility] Comment on above: Result Comment: KDIG O guidelines provide the following GFR categories: Stage GFR(ml/min/1.73 m2) Terms G1 >=90 Normal or high G2 60-89 Mildly decreased* G3a 45-59 Mildly to moderately decreased G3b 30-44 Moderately to severely decreased G4 15-29 Severely decreased G5 <15 Kidney failure *Relative to young adult level. In the absence of evidence of kidney damage, neither GFR category G1 nor G2 fulfill the criteria for CKD. The CKD-EPI equation is validated in individuals 18 years of age and older. Currently the best equation for estimating glomerular filtration rate (GFR) from serum creatinine in children is the Bedside Olivera equation. It is less accurate in patients with extremes of muscle mass, restriction of dietary protein, ingestion of creatine, extra-renal metabolism of creatinine, or treatment with medications that affect renal tubular creatinine secretion. Performed By: #### SOLEDAD ENGEL #### [place] [address] [place], [place] GFR/1.73 sq M.predicted among blacks MDRD (S/P/Bld) [Vol rate/Area] mL/min/{1.73_m2} Normal >60 [facility] Comment on above: Performed By: #### SOLEDAD ENGEL #### [place] [address] [place], [place] Potassium [Moles/Vol] 3.8 mmol/L Normal 3.5-5.1 [facility] Comment on above: Performed By: #### SOLEDAD ENGEL #### [place] [place], [place] Sodium [Moles/Vol] 134 mmol/L Low 135-145 [facility] Comment on above: Performed By: #### SOLEDAD ENGEL #### [address] Albumin [Mass/Vol] 3.2 g/dL Low 3.5-5.0 [facility] Comment on above: Performed By: #### SOLEDAD ENGEL #### [address] [address] [place], [place] Chloride [Moles/Vol] 105 mmol/L Normal 98-107 [facility] Comment on above: Performed By: #### S SOLEDAD HOFFMAN #### [facility] [address] [place] [address] Comprehensive Metabolic Pane miles 10-17-2021 Albumin [Mass/Vol] 3.2 g/dL Low 3.5 - 5.0 g/dL [facility] ALP (Bld) [Catalytic activity/Vol] 59 U/L 38 - 126 U/L [facility] ALT [Catalytic activity/Vol] 12 U/L 0 - 34 U/L [facility] Comment on above: The ALT test is perf ormed by an updated assay method. Please note that the reference intervals have been changed and are now sex specific. Anion gap [Moles/Vol] 5 mmol/L 3 - 13 mmol/L [facility] AST [Catalytic activity/Vol] 24 U/L 15 - 46 U/L [facility] Bilirubin [Mass/Vol] 0.8 mg/dL 0.2 - 1 .3 mg/dL [facility] Calcium [Mass/Vol] 8.3 mg/dL Low 8.4 - 10. 4 mg/dL [facility] Chloride [Moles/Vol] 105 mmol/L 98 - 10 7 mmol/L [facility] CO2 [Moles/Vol] 24 mmol/L 22 - 30 mmol/L [facility] Creatinine [Mass/Vol] 0.62 mg/dL 0.52 - 1.25 mg/dL [facility] EGFR IF NonAfrican Burmese >90.0 >60 mL/min [facility] Comment on above: KDIGO guidelines pro vide the following GFR categories: Stage GFR(ml/min/1.73 m2) Terms G1 >=90 Normal or high G2 60-89 Mildly decreased* G3a 45-59 Mildly to moderately decreased G3b 30-44 Moderately to severely decreased G4 15-29 Severely decreased G5 <15 Kidney failure *Relative to young adult level. In the absence of evidence of kidney damage, neither GFR category G1 nor G2 fulfill the criteria for CKD. The CKD-EPI equation is validated in individuals 18 years of age and older. Currently the best equation for estimating glomerular filtration rate (GFR) from serum creatinine in children is the Bedside Olivera equation. It is less accurate in patients with extremes of muscle mass, restriction of dietary protein, ingestion of creatine, extra-renal metabolism of creatinine, or treatment with medications that affect renal tubular creatinine secretion. Free PSA/Total PSA [Mass fraction] 6.4 g/dL 6.3 - 8.2 g/dL [facility] GFR/1.73 sq M.predicted among blacks MDRD (S/P/Bld) [Vol rate/Area] mL/min/{1.73_m2} >60 mL/min [facility] Glucose [Mass/Vol] 94 mg/dL 70 - 100 mg/dL [facility] Interpretation and review of laboratory results Abnormal [facility] Potassium [Moles/Vol] 3.8 mmol/L 3.5 - 5.1 mmol/L [facility] Sodium [Moles/Vol] 134 mmol/L Low 135 - 145 mmol/L [facility] Urea nitrogen (BldV) [Mass/Vol] 10 mg/dL 9 - 20 mg/dL [facility] Test Performed by [facility], [address] [place] [id number] [place] [address] LAB [facility] Hemogramon 10-17-2021 Erythrocyte distribution width (RBC) [Ratio] 14.3 % Normal 11.5-14.5 [facility] Comment on above: Performed By: #### SOLDEAD ENGEL #### [facility] [address] [place], [place] Hematocrit (Bld) [Volume fraction] 34.1 % Low 35.0-47.0 [facility] Comment on above: Performed By: #### SOLEDAD ENGEL #### [facility] [address] [place], [place] Hemoglobin (Bld) [Mass/Vol] 11.1 g/dL Low 11.7-16.0 [facility] Comment on above: Performed By: #### SOLEDAD ENGEL #### [facility] [address] [place], [place] MCH (RBC) [Entitic mass] 28.6 pg Normal 26.0-34.0 [facility] Comment on above: Performed By: #### SOLEDAD ENGLE #### [facility] [address] [place], [place] MCHC 32.5 % Normal 32.0-36.0 [facility] Comment on above: Performed By: #### SOLEDAD ENGEL #### [facility] [address] [place], [place] MCV (RBC) [Entitic vol] 88.3 fL Normal 79.0-98.0 [facility] Comment on above: Performed By: #### SOLEDAD ENGEL #### [address] [place], [place] Platelet mean volume (Bld) [Entitic vol] 7.8 fL Normal 7.4-10.4 [facility] Comment on above: Performed By: #### SOLEDAD ENGEL #### [address] [address] [place], [place] Platelets (Bld) [#/Vol] 313 10*3/uL Normal 140-440 [facility] Comment on above: Performed By: #### SOLEDAD ENGEL #### [address] [address] [place], [place] RBC (Bld) [#/Vol] 3.87 10*6/uL Normal 3.80-5.20 [facility] Comment on above: Performed By: #### SOLEDAD ENGEL #### [address] [address] [place], [place] WBC (Bld) [#/Vol] 14.1 10*3/uL High 3.6-10.7 [facility] Comment on above: Performed By: #### SOLEDAD ENGEL #### [address] [place], [place] MRI BRAIN W WO CONTRASTon Patient Name: PRISCILA CHA [facility] ACCESSION EXAM DATE/TIME PROCEDURE ORDERING PROVIDER [id number] 10/17/2021 10:30 EST MRI Brain w/ + w/o MOUNIKA BALBUENA Contrast CPT code 33101 Reason For Exam (MRI Brain w/ + w/o Contrast) dizziness Report MRI BRAIN WITHOUT AND WITH CONTRAST: CLINICAL INDICATION: Dizziness TECHNIQUE: Transaxial, sagittal and coronal T1, transaxial fast T2, FLAIR and gradient echo along with diffusion weighted imaging was performed through the brain. Post contrast transaxial and coronal T1 weighted sequences were performed following administration of 6ml gadolinium contrast. COMPARISON: Correlation is made to CT head 10/07/2021 FINDINGS: Limitations: Some motion artifact. Ventricular system and Extra-axial spaces: Low-lying cerebellar tonsils likely incidental. Otherwise within normal limits in size and morphology for the patient's age. No extra-axial fluid collection. No localized mass effect or midline shift. Cerebral and cerebellar parenchyma: No restricted diffusion. Relatively mild nonspecific T2/FLAIR hyperintense white matter signal abnormality, more pronounced in the periventricular region. Subtle similar signal abnormality is also present in the gunjan. Allowing for limitations due to motion artifact no definite abnormal enhancement on postcontrast sequences Sella turcica and pituitary: Appears within normal limits. Vascular system: Normal flow voids within the major vessels at the skull base centrally. Paranasal sinuses: Scant mucosal thickening involving several of the ethmoid air cells and right maxillary sinus. Mastoid air cells: Appear well aerated. Orbits: No significant abnormality detected. Calvarium/skull base: No significant abnormality IMPRESSION: 1. No restricted diffusion. No abnormal intracranial enhancement allowing for limitations due to motion artifact. 2. Relatively mild nonspecific T2/FLAIR hyperintense signal abnormality likely Magnetic Resonance Imaging Report reflecting mild chronic small vessel ischemic change. Similar but less pronounced signal abnormality in the gunjan likely of similar etiology. Report Dictated on --- Final --- Dictating Physician: MD LITTLE VLADIMIR Signed Date and Time: 10/17/2021 10:49 am Signed by: MD LITTLE VLADIMIR Transcribed Date and Time: 10/17/2021 10:50 [facility] Result, Unknown Provider - 10/17/2021 Patient Name: PRISCILA CHA [facility] ACCESSION EXAM DATE/TIME PROCEDURE ORDERING PROVIDER [id number] 10/17/2021 10:30 EST MRI Brain w/ + w/o 3096 -YOUNG, MOUNIKA Contrast CPT code 47804 Reason For Exam (MRI Brain w/ + w/o Contrast) dizziness Report MRI BRAIN WITHOUT AND WITH CONTRAST: CLINICAL INDICATION: Dizziness TECHNIQUE: Transaxial, sagittal and coronal T1, transaxial fast T2, FLAIR and gradient echo along with diffusion weighted imaging was performed through the brain. Post contrast transaxial and coronal T1 weighted sequences were performed following administration of 6ml gadolinium contrast. COMPARISON: Correlation is made to CT head 10/07/2021 FINDINGS: Limitations: Some motion artifact. Ventricular system and Extra-axial spaces: Low-lying cerebellar tonsils likely incidental. Otherwise within normal limits in size and morphology for the patient's age. No extra-axial fluid collection. No localized mass effect or midline shift. Cerebral and cerebellar parenchyma: No restricted diffusion. Relatively mild nonspecific T2/FLAIR hyperintense white matter signal abnormality, more pronounced in the periventricular region. Subtle similar signal abnormality is also present in the gunjan. Allowing for limitations due to motion artifact no definite abnormal enhancement on postcontrast sequences Sella turcica and pituitary: Appears within normal limits. Vascular system: Normal flow voids within the major vessels at the skull base centrally. Paranasal sinuses: Scant mucosal thickening involving several of the ethmoid air cells and right maxillary sinus. Mastoid air cells: Appear well aerated. Orbits: No significant abnormality detected. Calvarium/skull base: No significant abnormality IMPRESSION: 1. No restricted diffusion. No abnormal intracranial enhancement allowing for limitations due to motion artifact. 2. Relatively mild nonspecific T2/FLAIR hyperintense signal abnormality likely Magnetic Resonance Imaging Report reflecting mild chronic small vessel ischemic change. Similar but less pronounced signal abnormality in the gunjan likely of similar etiology. Report Dictated on --- Final --- Dictating Physician: MD LITTLE VLADIMIR Signed Date and Time: 10/17/2021 10:49 am Signed by: MD LITTLE VLADIMIR Transcribed Date and Time: 10/17/2021 10:50 [facility] Work Phone: MRI BRAIN W WO CONTRASTOrder ed By: Unknown Result on 10-17-2021 [facility] MRI Brain w/ + w/o Contrasto n 10-17-2021 MRI Brain w/ + w/o Contrast Patient Name: PRISCILA CHA Magnetic Resonance Imaging ACCESSION EXAM DATE/TIME PROCEDURE ORDERING PROVIDER [id number] 10/17/2021 10:30 EST MRI Brain w/ + w/o [id number] MOSS Contrast CPT code 53606 Reason For Exam (MRI Brain w/ + w/o Contrast) dizziness Report MRI BRAIN WITHOUT AND WITH CONTRAST: CLINICAL INDICATION: Dizziness TECHNIQUE: Transaxial, sagittal and coronal T1, transaxial fast T2, FLAIR and gradient echo along with diffusion weighted imaging was performed through the brain. Post contrast transaxial and coronal T1 weighted sequences were performed following administration of 6ml gadolinium contrast. COMPARISON: Correlation is made to CT head 10/07/2021 FINDINGS: Limitations: Some motion artifact. Ventricular system and Extra-axial spaces: Low-lying cerebellar tonsils likely incidental. Otherwise within normal limits in size and morphology for the patient's age. No extra-axial fluid collection. No localized mass effect or midline shift. Cerebral and cerebellar parenchyma: No restricted diffusion. Relatively mild nonspecific T2/FLAIR hyperintense white matter signal abnormality, more pronounced in the periventricular region. Subtle similar signal abnormality is also present in the gunjan. Allowing for limitations due to motion artifact no definite abnormal enhancement on postcontrast sequences Sella turcica and pituitary: Appears within normal limits. Vascular system: Normal flow voids within the major vessels at the skull base centrally. Paranasal sinuses: Scant mucosal thickening involving several of the ethmoid air cells and right maxillary sinus. Mastoid air cells: Appear well aerated. Orbits: No significant abnormality detected. Calvarium/skull base: No significant abnormality IMPRESSION: 1. No restricted diffusion. No abnormal intracranial enhancement allowing for limitations due to motion artifact. 2. Relatively mild nonspecific T2/FLAIR hyperintense signal abnormality likely Magnetic Resonance Imaging Report reflecting mild chronic small vessel ischemic change. Similar but less pronounced signal abnormality in the gunjan likely of similar etiology. Report Dictated on Final Dictating Physician: MD LITTLE VLADIMIR Signed Date and Time: 10/17/2021 10:49 am Signed by: MD LITTLE VLADIMIR Transcribed Date and Time: 10/17/2021 10:50 Normal [facility] CBC auto differentialon - Absolute Baso # 0.1 10*3/uL 0.0 - 0.2 10*3/uL [facility] Work Phone: Absolute Neut # 11.7 10*3/uL High 1.8 - 7.0 10*3/uL [facility] Work Phone: ) [phone] Basophils/100 WBC (Bld) 0.5 % 0.0 - 2.0 % [facility] Work Phone: 22 Eosinophils (Bld) [#/Vol] 0.1 10*3/uL 0.0 - 0.5 10*3/uL [facility] Work Phone: 22 Eosinophils/100 WBC (Bld) 0.9 % Low 1.0 - 6.0 % [facility] Work Phone: 22 Granulocytes/100 WBC (Bld) 81.6 % High 40.0 - 80.0 % [facility] Work Phone: Hematocrit (Bld) [Volume fraction] 33.6 % Low 35.0 - 47.0 % [facility] Work Phone: 22 Hemoglobin.gastrointest inal spec 1 Ql (Stl) 11.2 g/dL Low 11.7 - 16.0 g/dL [facility] Work Phone: 22 Lymphocytes (Bld) [#/Vol] 1.0 10*3/uL 1.0 - 4.3 10*3/uL [facility] Work Phone: 22 Lymphocytes/100 WBC (Bld) 6.6 % Low 20.0 - 40.0 % [facility] Work Phone: 22 MCH (RBC) [Entitic mass] 28.8 pg 26.0 - 34.0 pg [facility] Work Phone: 22 MCHC (RBC) [Mass/Vol] 33.3 % 32.0 - 36.0 % [facility] Work Phone: 22 MCV (RBC) [Entitic vol] 86.6 fL 79.0 - 98.0 fL [facility] Work Phone: 22 Monocytes (Bld) [#/Vol] 1.5 10*3/uL High 0.0 - 0.8 10*3/uL [facility] Work Phone: 22 Monocytes/100 WBC (Bld) 10.4 % High 2.0 - 10.0 % [facility] Work Phone: 1 Platelet distribution width (Bld) [Ratio] 14.7 % High 11.5 - 14.5 % [email or web address] Work Phone: 1 Platelet mean volume (Bld) [Entitic vol] 7.3 fL Low 7.4 - 10.4 fL [email or web address] Work Phone: 1 Platelets (Bld) [#/Vol] 301 10*3/uL 140 - 440 10*3/uL [email or web address] Work Phone: 1 RBC (Bld) [#/Vol] 3.88 10*6/uL 3.80 - 5.2 0 10*6/uL [email or web address] Work Phone: 1 WBC (Bld) [#/Vol] 14.3 10*3/uL High 3.6 - 10.7 10*3/uL [facility] Work Phone: [phone] Panel with Mg Reflexon 10-16-2021 Calcium [Mass/Vol] 8.1 mg/dL Low 8.4-10.4 [facility] Work Phone: [phone] Comment on above: Performed By: #### B FRP2 #### [facility] [address] [place], [place] Glucose [Mass/Vol] 106 mg/dL High 70-100 [facility] Work Phone: 1 Comment on above: Performed By: #### B FRP2 #### [facility] [address], [place] ALP [Catalytic activity/Vol] 63 U/L Normal 38-126 [facility] Comment on above: Performed By: #### B FRP2 #### [facility] [address] [place], [place] ALT [Catalytic activity/Vol] 11 U/L Normal 0-34 [facility] Work Phone: [phone] Comment on above: The ALT test is perf ormed by an updated assay method. Please note that the reference intervals have been changed and are now sex specific. Result Comment: The ALT test is performed by an updated assay method. Please note that the reference intervals have been changed and are now sex specific. Performed By: #### B FRP2 #### [facility] [address] [place] [address] Anion gap [Moles/Vol] 2 mmol/L Low 3-13 [facility] Work Phone: [phone] Comment on above: Performed By: #### B FRP2 #### [employer] [facility] [place] [place] [address] AST [Catalytic activity/Vol] 29 U/L Normal 15-46 [facility] Work Phone: [phone] Comment on above: Performed By: #### B FRP2 #### [address] [place] [address] Bilirubin [Mass/Vol] 0.6 mg/dL Normal 0.2-1.3 [facility] Work Phone: [phone] Comment on above: Performed By: #### B FRP2 #### [address] [place], [place] CO2 [Moles/Vol] 26 mmol/L Normal 22-30 [facility] Work Phone: [phone] Comment on above: Performed By: #### B FRP2 #### [address] [place], [place] Creatinine [Mass/Vol] 0.77 mg/dL Normal 0.52-1.25 [facility] Work Phone: [phone] Comment on above: Performed By: #### B FRP2 #### [employer] [facility] [address] [place] [place], [place] GFR/1.73 sq M.predicted among blacks MDRD (S/P/Bld) [Vol rate/Area] mL/min/{1.73_m2} Normal >60 [facility] Work Phone: [phone] Comment on above: Performed By: #### B FRP2 #### [address] [place] [address] GFR/1.73 sq M.predicted among non-blacks MDRD (S/P/Bld) [Vol rate/Area] 80.5 mL/min/{1.73_m2} Normal >60 [facility] Comment on above: Result Comment: KDIG O guidelines provide the following GFR categories: Stage GFR(ml/min/1.73 m2) Terms G1 >=90 Normal or high G2 60-89 Mildly decreased* G3a 45-59 Mildly to moderately decreased G3b 30-44 Moderately to severely decreased G4 15-29 Severely decreased G5 <15 Kidney failure *Relative to young adult level. In the absence of evidence of kidney damage, neither GFR category G1 nor G2 fulfill the criteria for CKD. The CKD-EPI equation is validated in individuals 18 years of age and older. Currently the best equation for estimating glomerular filtration rate (GFR) from serum creatinine in children is the Bedside Olivera equation. It is less accurate in patients with extremes of muscle mass, restriction of dietary protein, ingestion of creatine, extra-renal metabolism of creatinine, or treatment with medications that affect renal tubular creatinine secretion. Performed By: #### B FRP2 #### [address] [place] [address] Protein [Mass/Vol] 6.1 g/dL Low 6.3-8.2 [facility] Comment on above: Performed By: #### B FRP2 #### [address] [place] [address] Urea nitrogen [Mass/Vol] 14 mg/dL Normal 9-20 [facility] Comment on above: Performed By: #### B FRP2 #### [address] [address] Potassium [Moles/Vol] 4.0 mmol/L Normal 3.5-5.1 [facility] Work Phone: Comment on above: Performed By: #### B FRP2 #### [address] [address] Albumin [Mass/Vol] 3.0 g/dL Low 3.5-5.0 [facility] Work Phone: Comment on above: Performed By: #### B FRP2 #### [address] [address] Chloride [Moles/Vol] 106 mmol/L Normal 98-107 [facility] Work Phone: Comment on above: Performed By: #### B FRP2 #### [facility] [address] [place] [address] Sodium [Moles/Vol] 134 mmol/L Low 135-145 [facility] Work Phone: [phone] Comment on above: Performed By: #### Isai FRP2 #### [facility] [address] [place] [address] Comprehensive Metabolic Pane l w/ Reflex to MGon 10-16-2021 ALP (Bld) [Catalytic activity/Vol] 63 U/L 38 - 126 U/L [facility] Work Phone: [phone] EGFR IF NonAfrican Burmese 80.5 mL/min >60 [facility] Work Phone: [phone] Comment on above: KDIGO guidelines pro vide the following GFR categories: Stage GFR(ml/min/1.73 m2) Terms G1 >=90 Normal or high G2 60-89 Mildly decreased* G3a 45-59 Mildly to moderately decreased G3b 30-44 Moderately to severely decreased G4 15-29 Severely decreased G5 <15 Kidney failure *Relative to young adult level. In the absence of evidence of kidney damage, neither GFR category G1 nor G2 fulfill the criteria for CKD. The CKD-EPI equation is validated in individuals 18 years of age and older. Currently the best equation for estimating glomerular filtration rate (GFR) from serum creatinine in children is the Bedside Olivera equation. It is less accurate in patients with extremes of muscle mass, restriction of dietary protein, ingestion of creatine, extra-renal metabolism of creatinine, or treatment with medications that affect renal tubular creatinine secretion. Free PSA/Total PSA [Mass fraction] 6.1 g/dL Low 6.3 - 8.2 g/dL [facility] Work Phone: [phone] Urea nitrogen (BldV) [Mass/Vol] 14 mg/dL 9 - 20 mg/dL [facility] Work Phone: [phone] Hemogram w/ Autodiffon 10-16 Abs Baso Cnt 0.1 10*3/uL Normal 0.0-0.2 [facility] Comment on above: Performed By: #### B FRP2 #### [facility] [address] [place] [address] Abs Neutrophile Cnt 11.7 10*3/uL High 1.8-7.0 [facility] Comment on above: Performed By: #### B FRP2 #### [facility] [address], [place] Basophils/100 WBC (Bld) 0.5 % Normal 0.0-2.0 [facility] Comment on above: Performed By: #### B FRP2 #### [facility] [address] [place], [place] Eosinophils (Bld) [#/Vol] 0.1 10*3/uL Normal 0.0-0.5 [facility] Comment on above: Performed By: #### B FRP2 #### [address] [place], [place] Eosinophils/100 WBC (Bld) 0.9 % Low 1.0-6.0 [facility] Comment on above: Performed By: #### B FRP2 #### [place] [address] [place], [place] Erythrocyte distribution width (RBC) [Ratio] 14.7 % High 11.5-14.5 [facility] Comment on above: Performed By: #### B FRP2 #### [address] Granulocytes/100 WBC (Bld) 81.6 % High 40.0-80.0 [facility] Comment on above: Performed By: #### B FRP2 #### [address] [place], [place] Hematocrit (Bld) [Volume fraction] 33.6 % Low 35.0-47.0 [facility] Comment on above: Performed By: #### B FRP2 #### [address] [place], [place] Hemoglobin (Bld) [Mass/Vol] 11.2 g/dL Low 11.7-16.0 [facility] Comment on above: Performed By: #### B FRP2 #### [place] [address] [address] [place], [place] Lymphocytes (Bld) [#/Vol] 1.0 10*3/uL Normal 1.0-4.3 [facility] Comment on above: Performed By: #### B FRP2 #### [facility] [address] [place], [place] Lymphocytes/100 WBC (Bld) 6.6 % Low 20.0-40.0 [facility] Comment on above: Performed By: #### B FRP2 #### [facility] [address] [place], [place] MCH (RBC) [Entitic mass] 28.8 pg Normal 26.0-34.0 [facility] Comment on above: Performed By: #### B FRP2 #### [facility] [address] [place], [place] MCHC 33.3 % Normal 32.0-36.0 [facility] Comment on above: Performed By: #### B FRP2 #### [facility] [address] [place], [place] MCV (RBC) [Entitic vol] 86.6 fL Normal 79.0-98.0 [facility] Comment on above: Performed By: #### B FRP2 #### [facility] [address], [place] Monocytes (Bld) [#/Vol] 1.5 10*3/uL High 0.0-0.8 [facility] Comment on above: Performed By: #### B FRP2 #### [facility] [address], [place] Monocytes/100 WBC (Bld) 10.4 % High 2.0-10.0 [facility] Comment on above: Performed By: #### B FRP2 #### [facility] [address], [place] Platelet mean volume (Bld) [Entitic vol] 7.3 fL Low 7.4-10.4 [facility] Comment on above: Performed By: #### B FRP2 #### [facility] [address] [place], [place] Platelets (Bld) [#/Vol] 301 10*3/uL Normal 140-440 [facility] Comment on above: Performed By: #### B FRP2 #### [facility] [address] [place], [place] RBC (Bld) [#/Vol] 3.88 10*6/uL Normal 3.80-5.20 [facility] Comment on above: Performed By: #### B FRP2 #### [facility] [address] [place], [place] WBC (Bld) [#/Vol] 14.3 10*3/uL High 3.6-10.7 [facility] Comment on above: Performed By: #### B FRP2 #### [facility] [address] [place], [place] No Panel Informationon 10-16 Interpretation and review of laboratory results Abnormal [facility] Work Phone: Test Performed by [facility], [address] [place] [address] LAB [facility] Work Phone: CT Abdomen and Pelvis W cont rast Nani 10-15-2021 Patient Name: PRISCILA CHA Computed Tomography ACCESSION EXAM DATE/TIME PROCEDURE ORDERING PROVIDER [id number] 10/15/2021 12:[address] Abdomen/Pelvis w/ IV SURINDER VERMA DANIEL M Contrast (IV Onl CPT code 75790 Q9967 Reason For Exam (CT Abdomen/Pelvis w/ IV Contrast (IV Onl) Diffuse abdominal pain, constipation Report EXAMINATION: CT of the Abdomen and Pelvis with Contrast. COMPARISON: None. REASON FOR STUDY: Diffuse abdominal pain, constipation. TECHNIQUE: Contiguous multiplanar 3 mm images were extended from the lung bases through the pubic symphysis after intravenous infusion of 75 mL of Isovue-370. FINDINGS: Colon and rectum are diffusely filled with residual solid content. Multiple diverticulae are present in the descending and sigmoid colon. Colon and rectum are not abnormally dilated. Appendix and small bowel loops appear normal. Solid viscera appear normal. Genitourinary organs appear normal. Biliary tree is not dilated and the gallbladder appears normal. CONCLUSION(S): 1. Large amount residual colorectal content compatible with constipation. 2. No evidence of appendicitis or other acute abdominopelvic pathology. Report Dictated on --- Final --- Dictating Physician: MD BECKFORD B NELSON Signed Date and Time: 10/15/2021 12:58 pm Signed by: MD BECKFORD B NELSON Transcribed Date and Time: 10/15/2021 12:59 Sully Mathews M D - 10/15/2021 Patient Name: PRISCILA CHA Computed Tomography ACCESSION EXAM DATE/TIME PROCEDURE ORDERING PROVIDER [id number] 10/15/2021 12:[address] Abdomen/Pelvis w/ IV SURINDER VERMA DANIEL M Contrast (IV Onl CPT code 95725 Q9967 Reason For Exam (CT Abdomen/Pelvis w/ IV Contrast (IV Onl) Diffuse abdominal pain, constipation Report EXAMINATION: CT of the Abdomen and Pelvis with Contrast. COMPARISON: None. REASON FOR STUDY: Diffuse abdominal pain, constipation. TECHNIQUE: Contiguous multiplanar 3 mm images were extended from the lung bases through the pubic symphysis after intravenous infusion of 75 mL of Isovue-370. FINDINGS: Colon and rectum are diffusely filled with residual solid content. Multiple diverticulae are present in the descending and sigmoid colon. Colon and rectum are not abnormally dilated. Appendix and small bowel loops appear normal. Solid viscera appear normal. Genitourinary organs appear normal. Biliary tree is not dilated and the gallbladder appears normal. CONCLUSION(S): 1. Large amount residual colorectal content compatible with constipation. 2. No evidence of appendicitis or other acute abdominopelvic pathology. Report Dictated on --- Final --- Dictating Physician: MD BECKFORD B NELSON Signed Date and Time: 10/15/2021 12:58 pm Signed by: MD BECKFORD B NELSON Transcribed Date and Time: 10/15/2021 12:59 [facility] Work Phone: [facility] Work Phone: CT Abdomen/Pelvis w/ Contras ton 10-15-2021 CT Abdomen/Pelvis w/ Contrast Patient Name: PRISCILA CHA Computed Tomography ACCESSION EXAM DATE/TIME PROCEDURE ORDERING PROVIDER [id number] 10/15/2021 12:[address] Abdomen/Pelvis w/ IV SURINDER VERMA DANIEL M Contrast (IV Onl CPT code 29544 Q9967 Reason For Exam (CT Abdomen/Pelvis w/ IV Contrast (IV Onl) Diffuse abdominal pain, constipation Report EXAMINATION: CT of the Abdomen and Pelvis with Contrast. COMPARISON: None. REASON FOR STUDY: Diffuse abdominal pain, constipation. TECHNIQUE: Contiguous multiplanar 3 mm images were extended from the lung bases through the pubic symphysis after intravenous infusion of 75 mL of Isovue-370. FINDINGS: Colon and rectum are diffusely filled with residual solid content. Multiple diverticulae are present in the descending and sigmoid colon. Colon and rectum are not abnormally dilated. Appendix and small bowel loops appear normal. Solid viscera appear normal. Genitourinary organs appear normal. Biliary tree is not dilated and the gallbladder appears normal. CONCLUSION(S): 1. Large amount residual colorectal content compatible with constipation. 2. No evidence of appendicitis or other acute abdominopelvic pathology. Report Dictated on Final Dictating Physician: MD BECKFORD B NELSON Signed Date and Time: 10/15/2021 12:58 pm Signed by: MD BECKFORD B NELSON Transcribed Date and Time: 10/15/2021 12:59 Normal [facility] CT Head WO Contraston 2021 Patient Name: PRISCILA CHA Computed Tomography ACCESSION EXAM DATE/TIME PROCEDURE ORDERING PROVIDER [id number] 10/15/2021 12:[address] Head or Brain w/o SURINDER VERMA DANIEL M Contrast CPT code 33523 Reason For Exam (CT Head or Brain w/o Contrast) Intractable dizziness for one week Report EXAMINATION: CT of the Head without Contrast. COMPARISON: None. REASON FOR STUDY: Intractable dizziness x1 week. TECHNIQUE: Contiguous multiplanar 3 mm images were extended from the skull base through the vertex. FINDINGS: Garcias-white matter differentiation appears normal. No mass effect or extra-axial abnormality is observed. Ventricular system, cisterns and sulci are within normal limits. There is no shift of midline structures. There is asymmetric hyperostosis of the lateral wall of the right maxillary sinus. CONCLUSION(S): 1. No evidence of acute intracranial process. 2. Signs of chronic right maxillary sinusitis. Report Dictated on --- Final --- Dictating Physician: MD BECKFORD B NELSON Signed Date and Time: 10/15/2021 12:47 pm Signed by: MD BECKFORD B NELSON Transcribed Date and Time: 10/15/2021 12:48 [facility] Sully Musa M D - 10/15/2021 Patient Name: PRISCILA CHA Computed Tomography ACCESSION EXAM DATE/TIME PROCEDURE ORDERING PROVIDER [id number] 10/15/2021 12:[address] Head or Brain w/o SURINDER VERMA DANIEL M Contrast CPT code 66261 Reason For Exam (CT Head or Brain w/o Contrast) Intractable dizziness for one week Report EXAMINATION: CT of the Head without Contrast. COMPARISON: None. REASON FOR STUDY: Intractable dizziness x1 week. TECHNIQUE: Contiguous multiplanar 3 mm images were extended from the skull base through the vertex. FINDINGS: Garcias-white matter differentiation appears normal. No mass effect or extra-axial abnormality is observed. Ventricular system, cisterns and sulci are within normal limits. There is no shift of midline structures. There is asymmetric hyperostosis of the lateral wall of the right maxillary sinus. CONCLUSION(S): 1. No evidence of acute intracranial process. 2. Signs of chronic right maxillary sinusitis. Report Dictated on --- Final --- Dictating Physician: MD BECKFORD B NELSON Signed Date and Time: 10/15/2021 12:47 pm Signed by: MD BECKFORD B NELSON Transcribed Date and Time: 10/15/2021 12:48 [facility] Work Phone: CT Head WO ContrastOrdered B y: Sully Beckford on 10-15-2021 [facility] Work Phone: CT Head or Brain w/o Contras ton 10-15-2021 CT Head or Brain w/o Contrast Patient Name: PRISCILA CHA Computed Tomography ACCESSION EXAM DATE/TIME PROCEDURE ORDERING PROVIDER [id number] 10/15/2021 12:[address] Head or Brain w/o SURINDER VERMA DANIEL M Contrast CPT code 06176 Reason For Exam (CT Head or Brain w/o Contrast) Intractable dizziness for one week Report EXAMINATION: CT of the Head without Contrast. COMPARISON: None. REASON FOR STUDY: Intractable dizziness x1 week. TECHNIQUE: Contiguous multiplanar 3 mm images were extended from the skull base through the vertex. FINDINGS: Garcias-white matter differentiation appears normal. No mass effect or extra-axial abnormality is observed. Ventricular system, cisterns and sulci are within normal limits. There is no shift of midline structures. There is asymmetric hyperostosis of the lateral wall of the right maxillary sinus. CONCLUSION(S): 1. No evidence of acute intracranial process. 2. Signs of chronic right maxillary sinusitis. Report Dictated on Final Dictating Physician: MD BECKFORD B NELSON Signed Date and Time: 10/15/2021 12:47 pm Signed by: MD BECKFORD B NELSON Transcribed Date and Time: 10/15/2021 12:48 Normal [facility] Comp Metabolic Panelon 10-15 ALP [Catalytic activity/Vol] 77 U/L Normal 38-126 [facility] Comment on above: Performed By: #### B GLU #### [facility] [address] [place] [address] ALT [Catalytic activity/Vol] 15 U/L Normal 0-34 [facility] Comment on above: Result Comment: The ALT test is performed by an updated assay method. Please note that the reference intervals have been changed and are now sex specific. Performed By: #### B GLU #### [facility] [address] [place] [address] Calcium [Mass/Vol] 9.4 mg/dL Normal 8.4-10.4 [facility] Comment on above: Performed By: #### B GLU #### [facility] [address] [place] [address] Glucose [Mass/Vol] 127 mg/dL High 70-100 [facility] Comment on above: Performed By: #### B GLU #### [facility] [address] [place] [address] Protein [Mass/Vol] 7.2 g/dL Normal 6.3-8.2 [facility] Comment on above: Performed By: #### B GLU #### [facility] [address] [place] [address] Urea nitrogen [Mass/Vol] 24 mg/dL High 9-20 [facility] Comment on above: Performed By: #### B GLU #### [facility] [address] [place] [address] Anion gap [Moles/Vol] 4 mmol/L Normal 3-13 [facility] Comment on above: Performed By: #### B GLU #### [facility] [address] [place] [address] AST [Catalytic activity/Vol] 28 U/L Normal 15-46 [facility] Comment on above: Performed By: #### B GLU #### [facility] [address] [place] [address] Bilirubin [Mass/Vol] 0.7 mg/dL Normal 0.2-1.3 [facility] Comment on above: Performed By: #### B GLU #### [facility] [address] [place] [address] CO2 [Moles/Vol] 31 mmol/L High 22-30 [facility] Comment on above: Performed By: #### B GLU #### [facility] [address] [place] [address] Creatinine [Mass/Vol] 1.08 mg/dL Normal 0.52-1.25 [facility] Comment on above: Performed By: #### B GLU #### [facility] [address] [place] [address] GFR/1.73 sq M.predicted among blacks MDRD (S/P/Bld) [Vol rate/Area] 62.0 mL/min/{1.73_m2} Normal >60 [facility] Comment on above: Performed By: #### B GLU #### [facility] [address] [place] [address] GFR/1.73 sq M.predicted among non-blacks MDRD (S/P/Bld) [Vol rate/Area] 53.5 mL/min/{1.73_m2} Abnormal >60 [facility] Comment on above: Result Comment: KDIG O guidelines provide the following GFR categories: Stage GFR(ml/min/1.73 m2) Terms G1 >=90 Normal or high G2 60-89 Mildly decreased* G3a 45-59 Mildly to moderately decreased G3b 30-44 Moderately to severely decreased G4 15-29 Severely decreased G5 <15 Kidney failure *Relative to young adult level. In the absence of evidence of kidney damage, neither GFR category G1 nor G2 fulfill the criteria for CKD. The CKD-EPI equation is validated in individuals 18 years of age and older. Currently the best equation for estimating glomerular filtration rate (GFR) from serum creatinine in children is the Bedside Olivera equation. It is less accurate in patients with extremes of muscle mass, restriction of dietary protein, ingestion of creatine, extra-renal metabolism of creatinine, or treatment with medications that affect renal tubular creatinine secretion. Performed By: #### B GLU #### [facility] [address] [place] [address] Chloride [Moles/Vol] 101 mmol/L Normal 98-107 [facility] Comment on above: Performed By: #### B GLU #### [facility] [address] [place] [address] Potassium [Moles/Vol] 3.7 mmol/L Normal 3.5-5.1 [facility] Comment on above: Performed By: #### B GLU #### [facility] [address] [place] [address] Sodium [Moles/Vol] 135 mmol/L Normal 135-145 [facility] Comment on above: Performed By: #### B GLU #### [facility] [address] [place] [address] Albumin [Mass/Vol] 3.8 g/dL Normal 3.5-5.0 [facility] Comment on above: Performed By: #### B GLU #### [facility] [address] [place] [address] Complete Urinalysison 2021 Appearance (U) Clear Normal Clear [facility] Comment on above: Result Comment: . Performed By: #### SOLEDAD ENGEL #### [facility] [address], [place] Bilirubin,Urine Negative Normal Negative [facility] Comment on above: Result Comment: . Performed By: #### SOLEDAD ENGEL #### [facility] [address], [place] Color (U) Yellow Normal Lt. Yellow [facility] Comment on above: Result Comment: . Performed By: #### SOLEDAD ENGEL #### [facility] [address], [place] Glucose Ql (U) Normal Normal Normal (<70) [facility] Comment on above: Result Comment: . Performed By: #### SOLEDAD ENGEL #### [facility] [address], [place] Ketone,Urine Negative Normal Negative [facility] Comment on above: Result Comment: . Performed By: #### SOLEDAD ENGEL #### [facility] [address], [place] Leukocytes,Urine Negative Normal Negative [facility] Comment on above: Result Comment: . Performed By: #### SOLEDAD ENGEL #### [facility] [address], [place] Nitrites,Urine Negative Normal Negative [facility] Comment on above: Result Comment: . Performed By: #### SOLEDAD ENGEL #### [facility] [address], [place] Occult Blood,Urine Negative Normal Negative [facility] Comment on above: Result Comment: . Performed By: #### SOLEDAD ENGEL #### [facility] [address], [place] pH,Urine 6.5 Normal 5.0-8.0 [facility] Comment on above: Result Comment: . Performed By: #### SOLEDAD ENGEL #### [facility] [address] [place] [address] Specific [place],Urine > 1.030 Abnormal 1.005 - 1.030 [facility] Comment on above: Result Comment: . Performed By: #### SOLEDAD ENGEL #### [facility] [address], [place] Total Protein,Urine Negative Normal Negative [facility] Comment on above: Result Comment: . Performed By: #### SOLEDAD ENGEL #### [facility] [address] [place] [address] Urobilinogen,Urine Normal Normal Normal (0-1) [facility] Comment on above: Result Comment: . Performed By: #### SOLEDAD ENGEL #### [facility] [address] [place] [address] Comprehensive Metabolic Pane miles 10-15-2021 Albumin [Mass/Vol] 3.8 g/dL 3.5 - 5.0 g/dL [facility] ALP (Bld) [Catalytic activity/Vol] 77 U/L 38 - 126 U/L [facility] ALT [Catalytic activity/Vol] 15 U/L 0 - 34 U/L [facility] Comment on above: The ALT test is perf ormed by an updated assay method. Please note that the reference intervals have been changed and are now sex specific. Anion gap [Moles/Vol] 4 mmol/L 3 - 13 mmol/L [facility] AST [Catalytic activity/Vol] 28 U/L 15 - 46 U/L [facility] Bilirubin [Mass/Vol] 0.7 mg/dL 0.2 - 1 .3 mg/dL [facility] Calcium [Mass/Vol] 9.4 mg/dL 8.4 - 10. 4 mg/dL [facility] Chloride [Moles/Vol] 101 mmol/L 98 - 10 7 mmol/L [facility] CO2 [Moles/Vol] 31 mmol/L High 22 - 30 mmol/L [facility] Creatinine [Mass/Vol] 1.08 mg/dL 0.52 - 1.25 mg/dL [facility] EGFR IF NonAfrican Burmese 53.5 mL/min Abnormal >60 [facility] Comment on above: KDIGO guidelines pro vide the following GFR categories: Stage GFR(ml/min/1.73 m2) Terms G1 >=90 Normal or high G2 60-89 Mildly decreased* G3a 45-59 Mildly to moderately decreased G3b 30-44 Moderately to severely decreased G4 15-29 Severely decreased G5 <15 Kidney failure *Relative to young adult level. In the absence of evidence of kidney damage, neither GFR category G1 nor G2 fulfill the criteria for CKD. The CKD-EPI equation is validated in individuals 18 years of age and older. Currently the best equation for estimating glomerular filtration rate (GFR) from serum creatinine in children is the Bedside Olivera equation. It is less accurate in patients with extremes of muscle mass, restriction of dietary protein, ingestion of creatine, extra-renal metabolism of creatinine, or treatment with medications that affect renal tubular creatinine secretion. Free PSA/Total PSA [Mass fraction] 7.2 g/dL 6.3 - 8.2 g/dL [facility] GFR/1.73 sq M.predicted among blacks MDRD (S/P/Bld) [Vol rate/Area] 62.0 mL/min/{1.73_m2} >60 [facility] Glucose [Mass/Vol] 127 mg/dL High 70 - 100 mg/dL [facility] Potassium [Moles/Vol] 3.7 mmol/L 3.5 - 5.1 mmol/L [facility] Sodium [Moles/Vol] 135 mmol/L 135 - 145 mmol/L [facility] Urea nitrogen (BldV) [Mass/Vol] 24 mg/dL High 9 - 20 mg/dL [facility] ED Provider Noteon 2 ED Provider Note [facility] [place] [facility] eMERGENCY dEPARTMENT eNCOUnter Pt Name: Priscila Cha Birthdate 1955 Date of evaluation: 10/15/2021 Provider: Nydia Verma APRN - SURINDER This patient was seen in conjunction with Dr. Gordon CHIEF COMPLAINT Chief Complaint Patient presents with ? Abdominal Pain HISTORY OF PRESENT ILLNESS (Location/Symptom, Timing/Onset,Context/Se tting, Quality, Duration, Modifying Factors, Severity) Note limiting factors. HPI Priscila Cha is a 65 y.o. female who presents to the emergency department with dizziness for the last week. Patient states she has room spinning type dizziness that makes her very nauseated for the last week, she states she has it all the time when she lays flat and closes her eyes she states is tolerable but it never really goes away. She saw her PCP twice for this was placed on meclizine states she vomited up meclizine was unable to tolerate it. She states since she has been laying around in bed she has become which she feels is constipated she is been using Colace, suppositories, stool softeners and laxatives and states she is not having a bowel movement in the last 7 to 10 days. She states that she has diffuse abdominal pain feels like her abdomen is bloated and distended. She denies significant prior abdominal surgeries or any history of inflammatory bowel disease. She denies ataxia or lateralizing neurologic symptoms. She does state her dizziness becomes worse when she turns her head to the right. Nursing Notes were reviewed. REVIEW OF SYSTEMS (2+ for4; 10+ for level 5) Review of Systems Constitutional: Negative for activity change, appetite change, chills and fever. HENT: Negative for congestion, ear discharge, ear pain, hearing loss, postnasal drip, rhinorrhea and sore throat. Eyes: Negative for discharge and redness. Respiratory: Negative for chest tightness, shortness of breath and wheezing. Cardiovascular: Negative for chest pain and palpitations. Gastrointestinal: Positive for abdominal distention, abdominal pain, constipation, nausea and vomiting. Negative for diarrhea. Genitourinary: Negative for dysuria, hematuria, pelvic pain and urgency. Musculoskeletal: Negative for arthralgias and myalgias. Skin: Negative for color change. Neurological: Positive for dizziness. Negative for tremors, syncope, speech difficulty, weakness, light-headedness and headaches. Hematological: Negative for adenopathy. Psychiatric/Behavioral: Negative for agitation and confusion. All other systems reviewed and are negative. PAST MEDICAL HISTORY Past Medical History: Diagnosis Date ? Arthritis ? Pneumonia 03/04/2019 SURGICALHISTORY Past Surgical History: Procedure Laterality Date ? BACK SURGERY N/A 2017 lower back in middle ? MANDIBLE SURGERY Bilateral 1983 wires on both jaws now ? TONSILLECTOMY CURRENT MEDICATIONS Previous Medications ALBUTEROL SULFATE HFA (VENTOLIN HFA) 108 (90 BASE) MCG/ACT INHALER Inhale 2 puffs into the lungs every 4 hours as needed for Wheezing With MDI please. CLONAZEPAM (KLONOPIN) 0.5 MG TABLET Take 0.5 mg by mouth 2 times daily as needed. CYCLOBENZAPRINE (FLEXERIL) 10 MG TABLET Take 1 tablet by mouth 3 times daily as needed for Muscle spasms GABAPENTIN (NEURONTIN) 300 MG CAPSULE Take 300 mg by mouth 2 times daily. IBUPROFEN (ADVIL;MOTRIN) 400 MG TABLET Take 500 mg by mouth every 6 hours as needed for Pain MULTIPLE VITAMIN (MULTI-DAY PO) Take by mouth Codeine and Sulfa antibiotics FAMILY HISTORY Family History Problem Relation Age of Onset ? No Known Problems Sister ? No Known Problems Brother ? No Known Problems Maternal Grandmother ? No Known Problems Maternal Grandfather ? No Known Problems Paternal Grandmother ? No Known Problems Paternal Grandfather ? No Known Problems Other SOCIAL HISTORY Social History Socioeconomic History ? Marital status: Spouse name: None ? Number of children: None ? Years of education: None ? Highest education level: None Occupational History ? None Tobacco Use ? Smoking status: Current Every Day Smoker Packs/day: 0.50 Years: 15.00 Pack years: 7.50 Types: Cigarettes ? Smokeless tobacco: Current User ? Tobacco comment: trying to quit Vaping Use ? Vaping Use: Never used Substance and Sexual Activity ? Alcohol use: Not Currently ? Drug use: Never ? Sexual activity: Not Currently Other Topics Concern ? None Social History Narrative ? None Social Determinants of Health Financial Resource Strain: ? Difficulty of Paying Living Expenses: Not on file Food Insecurity: ? Worried About Running Out of Food in the Last Year: Not on file ? Ran Out of Food in the Last Year: Not on file Transportation Needs: ? Lack of Transportation (Medical): Not on file ? Lack of Transportation (Non-Medical): Not on file Physical Activity: ? Days of Exercise per Week: Not on file ? Minutes of Exercise per (more content not included)... Normal [facility] ED Provider Note Emergency Department Encounter [facility] ED Patient: Priscila Cha : 1955 Date of Evaluation: 10/15/2021 ED Supervising Physician: Deja Gordon MD I independently examined and evaluated Priscila Cha. I used kn95 for the encounter. I personally saw the patient and performed a substantive portion of the visit including all aspects of the medical decision making. In brief, Priscila Cha is a 65 y.o. female that presents to the emergency department with 2 complaints. First is abdominal pain that she is had for the last week or so, think she is constipated, feeling like knives stabbing her mostly lower abdomen. Complaint to is dizziness that she has had for a week and a half that seems to be positional, she went to her primary care with no relief, went to a chiropractor with no relief, no headaches, no focal weakness or paresthesias, denies head congestion, denies neck pain Focused exam: Stable vital signs, nontoxic, no distress. She did get uncomfortably dizzy when I sat her up, did have some horizontal nystagmus, no truncal ataxia, she has a fine resting tremor to her hands, normal [id number] testing bilaterally, normal strength sensation pulses no extremities, no facial asymmetry, negative test for skew, NIH stroke score of 0. Abdominal exam has slight distention with mild tenderness in her lower abdomen on deep palpation, no rebound or guarding, good perfusion to lower extremities ED course/MDM: Dizziness does sound vertiginous, will try to treat her symptoms, since its been persistent ongoing will get a head CT, will look for cardiac etiologies or other sources of dizziness, will do an abdominal work-up as well. EKG per my interpretation shows sinus tachycardia at a rate of 110 with otherwise normal axis interval transitions, no sign of acute ischemic change or arrhythmia All diagnostic, treatment, and disposition decisions were made by myself in conjunction with the resident or NORA I supervised for this case. For all further details of the patient's emergency department visit, please see their documentation. (Please note that portions of this note may have been completed with a voice recognition program. Efforts were made to edit the dictations but occasionally words are mis-transcribed.) Deja Gordon MD [employer] Deja Gordon MD 10/15/21 1047 Normal [facility] EKG 12 Lead - Chest Painon 0 10-15-2021 [facility] [employer] [facility] Test Date: 2021-10-15 Pat Name: PRISCILA CHA Department: 2AED Room: 33 Gender: F Media Manager: LILO : 1955 Requested By: NYDIA VERMA Order Number: [id number] Reading MD: Deja Gordon Measurements
== END | disposition home or self-care (01) ==
PROVIDERS: PCP Family Medicine Geriatric Medicine; Referring Provider Internal Medicine Pulmonary Disease; Visit Provider Internal Medicine Pulmonary Disease
DX: J44.9 Chronic obstructive pulmonary disease, unspecified (principal)
CPT/HCPCS: 71046

== ENCOUNTER → 2024-07-20 | Outpatient (CLI) | payer MEDICARE, OTHER, SELFPAY ==
--- NOTE | 2024-07-20 09:57 | CT_ITS ---
EXAM: CT CHEST WITHOUT INTRAVENOUS CONTRAST CLINICAL INDICATION: COPD,PLEURISY TECHNIQUE: Helically acquired images were obtained of the chest without intravenous contrast. This CT exam was performed using one or more of the following dose reduction techniques: automated exposure control, adjustment of the mA and/or kV according to patient size, and/or use of iterative reconstruction technique. COMPARISON: CT chest, 06/27/2022. CT abdomen and pelvis, 06/17/2023. FINDINGS: LUNGS AND PLEURAL SPACES: Diffuse centrilobular emphysema. No mass. No focal airspace disease, pleural effusion, or pneumothorax. HEART: Coronary artery calcifications. Heart size is normal. No pericardial effusion. MEDIASTINUM: No significant abnormality. No mediastinal or hilar adenopathy. Esophagus is unremarkable. No hiatal hernia. THYROID: No significant abnormality. No thyroid lesions. BONES/JOINTS: Degenerative changes in the axial and appendicular skeletal structures. No suspicious lytic or blastic abnormality. VASCULATURE: Atherosclerosis of the aorta and its branch vessels. Partially visualized abdominal aortic aneurysm without evidence of rupture measuring approximately 3.[address]/Chest without Contrast IMPRESSION: 1. No focal airspace disease, pleural effusion, or pneumothorax. 2. Atherosclerosis of the aorta and its branch vessels. Partially visualized abdominal aortic aneurysm without evidence of rupture measuring approximately 3.6 cm. ACR White Paper guidelines (Og, et al. JACR 2013; 10(10):789-94) suggest abdomen/pelvis CT or MR imaging follow-up in 2 years. 3. Diffuse centrilobular emphysema. NOTE: Emphysema on CT is an independent risk factor for lung cancer. Consider low dose CT for lung cancer screening between the ages of 50 and 77. Electronically Signed: Renzo Hodge DO at 14:11 EST ,
== END | disposition home or self-care (01) ==
LOC: CT 09:44
PROVIDERS: PCP Family Medicine Geriatric Medicine; Referring Provider Internal Medicine Pulmonary Disease; Visit Provider Internal Medicine Pulmonary Disease
DX: J44.9 Chronic obstructive pulmonary disease, unspecified (principal); R09.1 Pleurisy
CPT/HCPCS: 71250

== ENCOUNTER 2024-10-03 15:22 | Emergency (ER) | payer MEDICARE, OTHER, SELFPAY ==
[2024-10-03] VITALS (9 sets, daily range): BP systolic 133–147; BP diastolic 61–90; PULSE 77–103; RESP 16–26; TEMP 36.6–37.1; O2SAT 95–98; BMI 25.0
--- NOTE | 2024-10-03 15:49 | ED.VIS.DYS ---
HPI <SATINDER Christine - Last Filed: 10/03/24 19:16> History of Present Illness Chief Complaint: Shortness of Breath Narrative Narrative: 68-year-old female with past medical history of COPD, tobacco use states since she has had fatigue, congestion, cough, and shortness of breath. After her PCP called in 2 weeks of Augmentin but she felt worse after completing antibiotics. She followed up with her embedded linux engineer 2 days ago, Dr. Sullivan, who thought she had pneumonia based on her exam. She was prescribed Cipro floxacillin and prednisone. It is a taper with 30 mg x 3 days, 20 mg x 3 days, and 10 mg x 3 days. She is currently on day 3 of treatment. She is not feeling better so was sent in for evaluation. She does not wear home oxygen. She states she quit smoking around when she became sick. REPLACED BY [facility] <SATINDER Christine - Last Filed: 10/03/24 19:16> REPLACED BY [facility] Medical History COPD (chronic obstructive pulmonary disease) Home Medications ?Medication ?Instructions ?Recorded ?Last Taken ?Type doxycycline monohydrate 100 mg 100 mg PO BID #10 CAPSULES 11/07/22 Unknown Rx capsule amoxicillin 875 mg-potassium 1 tab PO BID 10 days #19 tabs 06/17/23 Unknown Rx clavulanate 125 mg tablet hydrocodone-acetaminophen 5-325mg 1 tab PO Q6H 3 days #12 tabs 06/17/23 Unknown Rx 5mg-325mg azithromycin 250 mg tablet 250 mg PO DAILY 4 days #4 tabs 10/03/24 Unknown Rx (Zithromax Z-Yosef) doxycycline hyclate 100 mg capsule 100 mg PO BID 7 days #13 caps 10/03/24 Unknown Rx Allergy/AdvReac Type Severity Reaction Status Date / Time levofloxacin (From Levaquin) Allergy PT UNSURE Verified 10/03/24 15:23 OF REACTION Social History household members: spouse Smoking Status: Current every day smoker tobacco type: cigarettes substance use type: does not use ROS <SATINDER Christine - Last Filed: 10/03/24 19:16> ROS ED ROS Narrative Constitutional: Negative for fever. Positive malaise. CVS: Negative for palpitations, chest pain. Respiratory: Positive for shortness of breath, cough. GI: Negative for abdominal pain, nausea, vomiting. EXAM <SATINDER Christine - Last Filed: 10/03/24 19:16> Physical Exam Narrative Exam Narrative: CONST: Patient sitting in no acute distress. EYES: Normal inspection. NECK: Normal inspection. RESP: No respiratory distress, bibasilar crackles. CVS: Regular rate and rhythm, no murmur, no gallop. SKIN: Color normal, no rash, warm, dry, intact. EXTREMITIES: Normal appearance, no pedal edema. NEURO: Alert and answering questions appropriately. PSYCH: Normal affect. Const Vital Signs: 10/03/24 15:23 10/03/24 15:44 10/03/24 15:46 Temperature 97.8 F 98.7 F Temperature Source Oral Temporal Pulse Rate 103 H 95 Respiratory Rate 26 H 16 Respiratory Effort Respiratory Pattern Blood Pressure 133/90 H 133/90 H Blood Pressure Mean 104 104 Pulse Ox 98 95 97 Oxygen Delivery Method Room Air Room Air Room Air 10/03/24 15:46 10/03/24 16:23 10/03/24 16:25 Temperature 98.7 F Temperature Source Oral Pulse Rate 84 84 Respiratory Rate 16 16 Respiratory Effort Normal Respiratory Pattern Tachypnea Blood Pressure 142/70 H 142/70 H Blood Pressure Mean 94 94 Pulse Ox 97 97 Oxygen Delivery Method Room Air Room Air 10/03/24 17:00 10/03/24 18:00 10/03/24 18:50 Temperature 97.8 F 97.8 F Temperature Source Oral Pulse Rate 77 87 Respiratory Rate 16 16 Respiratory Effort Respiratory Pattern Blood Pressure 136/61 H 144/73 H 147/74 H Blood Pressure Mean 86 96 98 Pulse Ox 96 96 96 Oxygen Delivery Method Room Air Room Air <Dr. John Izquierdo DO - Last Filed: 10/03/24 23:08> Physical Exam Const Vital Signs: 10/03/24 15:23 10/03/24 15:44 10/03/24 15:46 Temperature 97.8 F 98.7 F Temperature Source Oral Temporal Pulse Rate 103 H 95 Respiratory Rate 26 H 16 Respiratory Effort Respiratory Pattern Blood Pressure 133/90 H 133/90 H Blood Pressure Mean 104 104 Pulse Ox 98 95 97 Oxygen Delivery Method Room Air Room Air Room Air 10/03/24 15:46 10/03/24 16:23 10/03/24 16:25 Temperature 98.7 F Temperature Source Oral Pulse Rate 84 84 Respiratory Rate 16 16 Respiratory Effort Normal Respiratory Pattern Tachypnea Blood Pressure 142/70 H 142/70 H Blood Pressure Mean 94 94 Pulse Ox 97 97 Oxygen Delivery Method Room Air Room Air 10/03/24 17:00 10/03/24 18:00 10/03/24 18:50 Temperature 97.8 F 97.8 F Temperature Source Oral Pulse Rate 77 87 Respiratory Rate 16 16 Respiratory Effort Respiratory Pattern Blood Pressure 136/61 H 144/73 H 147/74 H Blood Pressure Mean 86 96 98 Pulse Ox 96 96 96 Oxygen Delivery Method Room Air Room Air MDM <SATINDER Christine - Last Filed: 10/03/24 19:16> [facility] Narrative Medical decision making narrative: Differential includes but not limited to pneumonia, COPD exacerbation, ACS, PE, bronchitis 68-year-old female with past medical history of COPD is on her second antibiotic for presumed pneumonia and presents with persistent symptoms. She appears well and nontoxic. HR 103, RR 26, otherwise normal vital signs. She is 98% on room air and speaking full sentences in no distress. She has faint bibasilar crackles. Labs show white count of 11.7, Hgb 10.5 which is lower than previous level 2 years ago but not significantly so. Sodium is 126, creatinine 1.13, CO2 17, anion gap 8. Glucose 174. Her EKG is nonischemic and troponin x 2 are negative. Respiratory swab negative for COVID/flu/RSV. CTA shows bilateral pleural-based consolidative densities possibly atelectasis. On my review of the CAT scan there appears to be more patchiness in the right lung base I think is consistent with pneumonia. I did consider admission but she ambulated and was 93% or above on room air. I paged her embedded linux engineer office and they left a voicemail with no return call. She completed Augmentin and is now a few days into Cipro and prednisone. I recommended she stop Cipro, start doxycycline and Zithromax, continue the steroids, and follow-up with her pulmonology doctor. Lab Data Attestation: I reviewed the patient's lab results. Labs: Laboratory Results - last 24 hr 10/03/24 10/03/24 10/03/24 15:38 15:38 16:25 WBC Cancelled 11.7 H Corrected WBC Cancelled RBC Cancelled 3.86 L Hgb Cancelled 10.5 L Hct Cancelled 32.2 L MCV Cancelled 83.4 MCH Cancelled 27.2 MCHC Cancelled 32.6 RDW Std Deviation Cancelled 49.3 H RDW Coeff of Jesus Cancelled 16.4 H Plt Count Cancelled 612 H MPV Cancelled 9.0 Immature Gran % (Auto) Cancelled 0.900 Neut % (Auto) Cancelled 87.7 H Lymph % (Auto) Cancelled 7.4 L Hoke % (Auto) Cancelled 3.9 Eos % (Auto) Cancelled 0.0 Baso % (Auto) Cancelled 0.1 Absolute Neuts (auto) Cancelled 10.2 H Absolute Lymphs (auto) Cancelled 0.86 Total Counted Cancelled Neutrophils % (Manual) Cancelled Band Neutrophils % Cancelled Lymphocytes % (Manual) Cancelled Monocytes % (Manual) Cancelled Eosinophils % (Manual) Cancelled Basophils % (Manual) Cancelled Metamyelocytes % Cancelled Myelocytes % Cancelled Promyelocytes % Cancelled Blast Cells % Cancelled Plasma Cell % (Manual) Cancelled Other Cells % Cancelled Nucleated RBC % Cancelled 0 Nucleated RBCs/100 WBC Cancelled Differential Comment Cancelled Diff Path Review Cancelled Hypersegmented Neuts Cancelled Atypical Lymphocytes Cancelled Reactive Lymphocytes Cancelled Smudge Cells Cancelled Toxic Granulation Cancelled Toxic Vacuolation Cancelled Dohle Bodies Cancelled Opal Rods Cancelled Platelet Estimate Cancelled Plt Morphology Comment Cancelled RBC Morphology Cancelled Cancelled Polychromasia Cancelled Hypochromasia Cancelled Basophilic Stippling Cancelled Anisocytosis Cancelled Microcytosis Cancelled Macrocytosis Cancelled Spherocytes Cancelled Sickle Cells Cancelled Target Cells Cancelled Tear Drop Cells Cancelled Ovalocytes Cancelled Stomatocytes Cancelled Luna-Livingston Bodies Cancelled Kat Cells Cancelled Bite Cells Cancelled Crenated Cell Cancelled Acanthocytes (Spur) Cancelled Rouleaux Cancelled Schistocytes Cancelled Sodium 126 L Potassium 4.4 Chloride 101 Carbon Dioxide 17.0 L Anion Gap 8 BUN 20 H Creatinine 1.13 H Estim Creat Clear Calc 44.63 Est GFR (MDRD) Af Amer 61 Est GFR (MDRD) Non-Af 51 L BUN/Creatinine Ratio 17.7 Glucose 174 H Calcium TNP Troponin I High Sens 4 10/03/24 17:50 WBC Corrected WBC RBC Hgb Hct MCV MCH MCHC RDW Std Deviation RDW Coeff of Jesus Plt Count MPV Immature Gran % (Auto) Neut % (Auto) Lymph % (Auto) Hoke % (Auto) Eos % (Auto) Baso % (Auto) Absolute Neuts (auto) Absolute Lymphs (auto) Total Counted Neutrophils % (Manual) Band Neutrophils % Lymphocytes % (Manual) Monocytes % (Manual) Eosinophils % (Manual) Basophils % (Manual) Metamyelocytes % Myelocytes % Promyelocytes % Blast Cells % Plasma Cell % (Manual) Other Cells % Nucleated RBC % Nucleated RBCs/100 WBC Differential Comment Diff Path Review Hypersegmented Neuts Atypical Lymphocytes Reactive Lymphocytes Smudge Cells Toxic Granulation Toxic Vacuolation Dohle Bodies Opal Rods Platelet Estimate Plt Morphology Comment RBC Morphology Polychromasia Hypochromasia Basophilic Stippling Anisocytosis Microcytosis Macrocytosis Spherocytes Sickle Cells Target Cells Tear Drop Cells Ovalocytes Stomatocytes Luna-Livingston Bodies Kat Cells Bite Cells Crenated Cell Acanthocytes (Spur) Rouleaux Schistocytes Sodium Potassium Chloride Carbon Dioxide Anion Gap BUN Creatinine Estim Creat Clear Calc Est GFR (MDRD) Af Amer Est GFR (MDRD) Non-Af BUN/Creatinine Ratio Glucose Calcium Troponin I High Sens 5 Radiography Diagnostic Testing: Clinical Impression(s) from Imaging Studies Chest X-Ray 10/03/24 15:52 IMPRESSION: Mild COPD. No acute cardiopulmonary pathology. Electronically Signed: Max Richards MD at 16:07 EST , Chest CTA 10/03/24 16:26 IMPRESSION: Bilateral pleural-based consolidative densities possibly atelectasis No evidence for pulmonary embolus Electronically Signed: Max Richards MD at 17:15 EST , <Dr. John Izquierdo, DO - Last Filed: 10/03/24 23:08> MDM Lab Data Labs: Laboratory Results - last 24 hr 10/03/24 10/03/24 10/03/24 15:38 15:38 16:25 WBC Cancelled 11.7 H Corrected WBC Cancelled RBC Cancelled 3.86 L Hgb Cancelled 10.5 L Hct Cancelled 32.2 L MCV Cancelled 83.4 MCH Cancelled 27.2 MCHC Cancelled 32.6 RDW Std Deviation Cancelled 49.3 H RDW Coeff of Jesus Cancelled 16.4 H Plt Count Cancelled 612 H MPV Cancelled 9.0 Immature Gran % (Auto) Cancelled 0.900 Neut % (Auto) Cancelled 87.7 H Lymph % (Auto) Cancelled 7.4 L Hoke % (Auto) Cancelled 3.9 Eos % (Auto) Cancelled 0.0 Baso % (Auto) Cancelled 0.1 Absolute Neuts (auto) Cancelled 10.2 H Absolute Lymphs (auto) Cancelled 0.86 Total Counted Cancelled Neutrophils % (Manual) Cancelled Band Neutrophils % Cancelled Lymphocytes % (Manual) Cancelled Monocytes % (Manual) Cancelled Eosinophils % (Manual) Cancelled Basophils % (Manual) Cancelled Metamyelocytes % Cancelled Myelocytes % Cancelled Promyelocytes % Cancelled Blast Cells % Cancelled Plasma Cell % (Manual) Cancelled Other Cells % Cancelled Nucleated RBC % Cancelled 0 Nucleated RBCs/100 WBC Cancelled Differential Comment Cancelled Diff Path Review Cancelled Hypersegmented Neuts Cancelled Atypical Lymphocytes Cancelled Reactive Lymphocytes Cancelled Smudge Cells Cancelled Toxic Granulation Cancelled Toxic Vacuolation Cancelled Dohle Bodies Cancelled Opal Rods Cancelled Platelet Estimate Cancelled Plt Morphology Comment Cancelled RBC Morphology Cancelled Cancelled Polychromasia Cancelled Hypochromasia Cancelled Basophilic Stippling Cancelled Anisocytosis Cancelled Microcytosis Cancelled Macrocytosis Cancelled Spherocytes Cancelled Sickle Cells Cancelled Target Cells Cancelled Tear Drop Cells Cancelled Ovalocytes Cancelled Stomatocytes Cancelled Luna-Livingston Bodies Cancelled [place] Cells Cancelled Bite Cells Cancelled Crenated Cell Cancelled Acanthocytes (Spur) Cancelled Rouleaux Cancelled Schistocytes Cancelled Sodium 126 L Potassium 4.4 Chloride 101 Carbon Dioxide 17.0 L Anion Gap 8 BUN 20 H Creatinine 1.13 H Estim Creat Clear Calc 44.63 Est GFR (MDRD) Af Amer 61 Est GFR (MDRD) Non-Af 51 L BUN/Creatinine Ratio 17.7 Glucose 174 H Calcium TNP Troponin I High Sens 4 10/03/24 17:50 WBC Corrected WBC RBC Hgb Hct MCV MCH MCHC RDW Std Deviation RDW Coeff of Jesus Plt Count MPV Immature Gran % (Auto) Neut % (Auto) Lymph % (Auto) Hoke % (Auto) Eos % (Auto) Baso % (Auto) Absolute Neuts (auto) Absolute Lymphs (auto) Total Counted Neutrophils % (Manual) Band Neutrophils % Lymphocytes % (Manual) Monocytes % (Manual) Eosinophils % (Manual) Basophils % (Manual) Metamyelocytes % Myelocytes % Promyelocytes % Blast Cells % Plasma Cell % (Manual) Other Cells % Nucleated RBC % Nucleated RBCs/100 WBC Differential Comment Diff Path Review Hypersegmented Neuts Atypical Lymphocytes Reactive Lymphocytes Smudge Cells Toxic Granulation Toxic Vacuolation Dohle Bodies Opal Rods Platelet Estimate Plt Morphology Comment RBC Morphology Polychromasia Hypochromasia Basophilic Stippling Anisocytosis Microcytosis Macrocytosis Spherocytes Sickle Cells Target Cells Tear Drop Cells Ovalocytes Stomatocytes Luna-Livingston Bodies Hillside Cells Bite Cells Crenated Cell Acanthocytes (Spur) Rouleaux Schistocytes Sodium Potassium Chloride Carbon Dioxide Anion Gap BUN Creatinine Estim Creat Clear Calc Est GFR (MDRD) Af Amer Est GFR (MDRD) Non-Af BUN/Creatinine Ratio Glucose Calcium Troponin I High Sens 5 Radiography Chest X-Ray - ED: Read by ED Physician Diagnostic Testing: Clinical Impression(s) from Imaging Studies Chest X-Ray 10/03/24 15:52 IMPRESSION: Mild COPD. No acute cardiopulmonary pathology. Electronically Signed: Max Richards MD at 16:07 EST , Chest CTA 10/03/24 16:26 IMPRESSION: Bilateral pleural-based consolidative densities possibly atelectasis No evidence for pulmonary embolus Electronically Signed: Max Richards MD at 17:15 EST , I have personally reviewed the patient's chest x-ray. Chest x-ray is unremarkable for pulmonary edema, pneumothorax, pneumonia or focal cardiopulmonary abnormality. Treatment and Re-Evaluation :: ED attending note: I evaluated the patient in conjunction with the [facility]. I agree with his/her statements and above findings. I have personally performed a face to face assessment of the patient and have reviewed the [facility] Note. I performed a substantive portion of the visit including all aspects of the following. I personally saw the patient performed chart review, physical exam, reviewed labs, imaging (if obtained), and formulated a treatment and management plan. I have personally reviewed and interpreted by myself the patient's chest x-ray. Shows right lower lobe pneumonia. Patient ambulated here without hypoxia. Vital signs initially concerning for tachypnea which stabilized spontaneously with a final respiratory rate of 16. She is appropriate discharge home with oral azithromycin and doxycycline to cover typical and atypical species.. Strict return precautions were discussed This note was generated with [employer] dictation software. It may contain incorrect words, spelling, and punctuation that were not noted in review of the chart prior to signing. Discharge Plan Triage Chief Complaint: Shortness of Breath ED Midlevel Provider: Cass Hou ED Provider: John Izquierdo Dx/Rx/DC Orders Clinical Impression: Pneumonia, History of COPD Instructions: ED Pneumonia (Adult) Prescriptions: New azithromycin [Zithromax Z-Yosef] 250 mg tablet 250 mg PO DAILY 4 Days Qty: 4 0RF doxycycline hyclate 100 mg capsule 100 mg PO BID 7 Days Qty: 13 0RF Rx Instructions: first dose already given No Action doxycycline monohydrate 100 mg capsule 100 mg PO BID Qty: 10 0RF hydrocodone-acetaminophen 5-325 mg tablet 1 tab PO Q6H 3 Days Qty: 12 0RF amoxicillin-pot clavulanate 875-125 mg tablet 1 tab PO BID 10 Days Qty: 19 0RF Primary Care Provider: Dat Dee Referrals: Dat Dee MD [Primary Care Provider] - Activity Restrictions/Additional Instructions: I prescribed 2 new antibiotics for pneumonia. I recommend you stop ciprofloxacin. Continue the prednisone given by pulmonology. Call their office on Monday for a follow-up appointment. Print Language: Kazakh Disposition Disposition: Home, Self Care Discharge Date/Time: 10/03/24 19:00
--- NOTE | 2024-10-03 15:52 | RAD_ITS ---
STUDY: X-RAY CHEST REASON FOR EXAM: Female, 68 years old. cough TECHNIQUE: PA and lateral COMPARISON: July 13, 2024 FINDINGS: Minor interstitial thickening in the lower lobes and emphysematous changes in the upper lobes.. No focal infiltration There is no demonstrated pleural abnormality. Normal size heart. Normal mediastinum and lam. Normal visualized pulmonary arteries. Normal visualized aortic arch and descending thoracic aorta. Dorsal spine and shoulders demonstrate degenerative change. Normal visualized ribs, and clavicles. There is no demonstrated abnormality of the visualized soft tissue structures of the upper abdomen. No significant change since prior exam RAD/Chest PA and Lateral IMPRESSION: Mild COPD. No acute cardiopulmonary pathology. Electronically Signed: Max Richards MD at 16:07 [facility] ,
[2024-10-03 16:20] LABS: Anion Gap 8 (5-15); BUN 20 mg/dL (7-18); BUN/Creat Ratio 17.7 RATIO (10-20); Chloride 101 mmol/L (98-107); Creatinine, Serum 1.13 mg/dL (0.55-1.02); EST Glomerular Filtration Rate 51 mL/min (>60); Est Glom Filt Rate - Afr Amer 61 mL/min (>60); Estimated Creatinine Clearance 44.63 ml/min; Glucose 174 mg/dL (74-106); Potassium 4.4 mmol/L (3.5-5.1); Sodium Level 126 mmol/L (136-145); Troponin-I HS (w/2H Reflex) 4 pg/mL (3.0-54.0)
--- NOTE | 2024-10-03 16:26 | CT_ITS ---
STUDY: CTA CHEST REASON FOR EXAM: Female, 68 years old. DYSPNEA, COPD,SOB RADIATION DOSAGE (If Supplied By Facility): CTDIvol = ( 6.76 ) mGy, DLP = ( 187.09 ) mGycm TECHNIQUE: The examination was performed with the intravenous administration of IV 100mL Isovue-370. Post-processing of the angiographic images was performed, with multiplanar reformation and 3D reconstruction. Individualized dose optimization techniques were used for this CT. COMPARISON: AP portable October 03, 2024 CTA of the chest July 20, 2024 FINDINGS: Normal enhancement of the main pulmonary artery and right and left pulmonary arteries. Normal enhancement of the bilateral peripheral pulmonary arteries. There is no demonstrated pulmonary embolism. Mild atherosclerotic change of the aorta without evidence for aneurysm. There is no demonstrated aortic dissection. Heart size is normal. There is mild coronary artery calcification. Normal mediastinum. Normal hilar regions. Normal visualized trachea and bronchi. The lungs are well expanded. There is pleural-based airspace diseasein the left upper and lower lobes as well as the right upper and lower lobes which are new finding since prior exam possibly representing atelectatic changes although cannot definitively exclude acute inflammatory changes Normal pleura. Normal chest wall structures. Normal osseous structures. Normal visualized upper abdomen. CT/CTA Chest W/WO Contrast IMPRESSION: Bilateral pleural-based consolidative densities possibly atelectasis No evidence for pulmonary embolus Electronically Signed: Max Richards MD at 17:15 EST ,
[2024-10-03 16:30] LABS: Absolute Lymphocyte Count 0.86 X10^3/uL (0.83-4.51); Absolute Neutrophil Count 10.2 X10^3/uL (2.0-7.7); Basophil# 0.01 X10^3/uL; Basophil% 0.1 % (0-1); Hematocrit 32.2 % (37-47); Hemoglobin 10.5 g/dL (12.0-15.0); Lymphocyte # 0.86 X10^3/ul (0.83-4.51); Lymphocyte % 7.4 % (19-41); Mean Corp Hgb Conc 32.6 g/dL (32-36); Mean Corpuscular Hgb 27.2 pg (27.0-32.0); Mean Corpuscular Volume 83.4 fL (81-99); Monocyte# 0.45 X10^3/uL; Monocyte% 3.9 % (0-10); NRBC Flagged by Analyzer 0 % (0-5); Neutrophil # 10.23 X10^3/uL (2.7-7.7); Neutrophil % 87.7 % (47-70); Platelet Count 612 K/mm3 (150-450); RBC Distribution Width CV 16.4 % (11.6-14.6); RBC Distribution Width SD 49.3 fl (35.1-43.9); Red Blood Count 3.86 M/mm3 (4.2-5.4); White Blood Count 11.7 K/mm3 (4.4-11.0)
[2024-10-03 17:42] LABS: Reflex Troponin-HS? (from REC) Y
[2024-10-03 18:24] LABS: Troponin-I HS 5 pg/mL (3.0-54.0)
[2024-10-03] MEDS: Doxycycline 100 MG CAPSULE PO (18:54)
[2024-10-03] MEDS: Azithromycin 250 MG Tablet 500 MG PO (18:54)
== END 2024-10-03 19:00 | disposition home or self-care (01) ==
PROVIDERS: Emergency Provider Emergency Medicine; PCP Family Medicine Geriatric Medicine; Referring Provider Emergency Medicine; Visit Provider Emergency Medicine
DX: J18.9 Pneumonia, unspecified organism (principal); J44.0 Chronic obstructive pulmonary disease with (acute) lower respiratory infection; F17.210 Nicotine dependence, cigarettes, uncomplicated